=== PATIENT | female | born 1985 | race Caucasian/White ===

== ENCOUNTER 2018-02-28 22:25 | Inpatient (IN) | payer BC, OTHER ==
[~2018-02-28] VITALS: Ht 172.7 cm; Wt 137.9 kg
[~2018-02-28 22:25] MED LIST: ATENOLOL25 MG PO; HYDROCHLOROTHIA25 MG PO; HYDROCODON-ACE1 EAC8 PO; NAPROXEN500 MG PO; NORCO 5-325 TA1 EACH PO; PERCOCET 5-3251 EACH PO; PHENTERMINE H37.5 M1 PO; SERTRALINE HCL100 MG PO; XANAX0.25 MG PO; ZOLOFT50 MG PO
[2018-02-28] MEDS ORDERED: ZYPREXA5 MG PO (22:42)
[2018-02-28] MEDS ORDERED: DEXAMETHASONE4 MG PO (22:42)
[2018-02-28] MEDS ORDERED: PROCHLORPERAZIN10 MG PO (22:43)
[2018-02-28] MEDS ORDERED: ATIVAN0.5 MG PO (22:44)
[2018-02-28] MEDS ORDERED: ZOFRAN ODT4 MG PO (22:45)
[2018-02-28] MEDS ORDERED: CLARITIN10 MG PO (22:46)
[2018-03-01] MEDS ORDERED: RANITIDINE HCL150 MG PO (00:55)
[2018-03-01] MEDS ORDERED: CITALOPRAM HBR40 MG PO (00:55)
[2018-03-01] MEDS ORDERED: OXYCODONE HCL5 MG PO (00:56)
[2018-03-01] MEDS ORDERED: LYRICA150 MG PO (00:57)
[2018-03-01] MEDS ORDERED: LYRICA75 MG PO (00:57)
[2018-03-01] MEDS ORDERED: MAGIC MOUTHWASH PO (02:12)
--- NOTE | 2018-03-01 02:13 | NUR ---
PT FAMILY IN THE ROOM WITH PT AT THIS TIME, WILL BE TAKING PT BELONGINGS OTHER THAN PHONE, CLOTHES AND BACKPACK. PT HAVING INTERMITTENT HOT/COLD FLASHES. HAS FAN IN ROOM AND COOL RAG. PT REQUESTED FOOD, GIVEN [employer] BOX. AMBULATED WITH WALKER TO BATHROOM WITH STANDBY ASSIST
--- NOTE | 2018-03-01 07:40 | NUR ---
DR. CHARLES AT BEDSIDE TO ASSESS PT AND UPDATE PLAN OF CARE.
--- NOTE | 2018-03-01 08:00 | NUR ---
PT SBA WITH FWW TO RESTROOM, TOELRATED WELL. PT ASSITED BACK TO CHAIR, FAMILY IN ROOM. PT A&O X 4. SINUS TACHYCARDIA NOTED, HR 119, 164/79, AND MAP 97. LUNGS CLEAR THROUGHOUT ALL BASES, 95% ON RA. JEOVANNY NAUSEA A THIS TIME, MED REC REVIEWED WITH DR. CHARLES REGARDING NAUSEA MEDICAIONS, MEDS UPDATED AT THIS TIME. PT IS ON REGULAR DIET. URINE OUTPUT ADEQUET AND YELLOW IN COLOR. LEFT BKA WRAPPED WITH NUBIA WRAP, C/D/I. D5NS WITH 20 MEQ OF POASSIUM RUNNING @125 ML/HR AND CEFEPIME RUNNING @25 ML/HR INTO PORT, WNL. DENIES PAIN AT THIS TIME. AFEBRILE WITH LAST TEMP 98.6 F. WILL CONTINUE TO MONITOR TEMP FOR CHANGES.
--- NOTE | 2018-03-01 09:00 | NUR ---
EDUCATION PROVIDED TO PT AND FAMILY REGARDING NEUTROPENIC PRECAUTIONS. ADVISED FAMILY MEMBERS TO WASH HANDS, WEAR MASKS, AND LIMIT VISITORS. PT AND FAMILY VERBALIZED AN UNDERSTANDING AND WERE AGREEABLE.
[2018-03-01] MEDS ORDERED: ONDANSETRON HCL8 MG PO (09:17)
--- NOTE | 2018-03-01 10:32 | NUR ---
Medications reconciled by pharmacist using medication vials, [facility] records and patient interview. Patient received Neulasta injection last Saturday and will need to take (2) loratadine 10mg tablets daily
--- NOTE | 2018-03-01 11:00 | NUR ---
PT'S FAMILY STATES THE PT IS FEELING COLD. TEMP REASSESSED AND 99.1 F AT THIS TIME, WILL CONTINUE TO MONITOR.
--- NOTE | 2018-03-01 13:27 | NUR ---
PT RESTING IN BED COMFORTABLY, NO ACUTE DISTRESS NOTED. TEMP REASSESSED AND CURRENTLY 99.8 F, WILL CONTINUE TO MONITOR. LR INFUSING @125 ML/HR AND VANCOMYCIN INFUSING @186 ML/HR. PT'S FAMILY MEMBER SHARED CONCERNS REGARDING SEPSIS AND POSSIBLE TRANSFER. PROVIDED ADDITIONAL EDUCATION REGADING SEPSIS S/SX. ADVISED THAT TANSFER IS NOT INDICATED AT THIS TIME AND THAT PT WILL BE CONTINUED TO BE MONITORED CLOSELY, NO OTHER QUESTIONS OR CONCERNS AT THIS TIME.
--- NOTE | 2018-03-01 14:00 | NUR ---
TEMP REASSESSED AND NOTED TO BE 100.5 F AT THIS TIME, PROVIDER AWARE. WILL CONTINUE TO MONITOR.
--- NOTE | 2018-03-01 19:30 | NUR ---
SHIFT REPORT RECEIVED FROM LISA MILLER. PT CURRENTLY SITTING UP IN CHAIR, AUNT AT BEDSIDE. IVF INFUSING WNL.
--- NOTE | 2018-03-01 20:25 | NUR ---
ASSESSMENT COMPLETED, PT IS ALERT/ORIENTED, REPORTS 4/10 SINUS HEADACHE PAIN, 30MG PO PSEUDOEPHEDRINE GIVEN. LUNGS CLEAR, RA. HR REGULAR, SINUS TACHY AT 100-105. BOWEL TONES ACTIVE, PT REPORTS NAUSEA, PRN COMPAZINE ADMINISTERED. LEFT BKA HAS DRESSING THAT IS C/D/I. PORT PATENT, IVF INFUSING WNL, DRESSING C/D/I. PT UP TO BATHROOM WITH SBA AND FWW, VOIDED AND THEN RETURNED TO BED. PT STATES SHE IS TIRED, HAS CALL LIGHT WITHIN REACH. WILL CONTINUE TO MONITOR.
--- NOTE | 2018-03-01 22:05 | NUR ---
PT SLEEPING SOUNDLY, NO APPARENT DISTRESS. RR:23 SPO2: 95% ON RA, RESPIRATIONS EVEN AND UNLABORED. PER PT'S AUNT'S REQUEST, TEMPORAL TEMPERATURE: 99.1. CEFEPIME INFUSION STARTED. WILL ALLOW FOR REST AND CONTINUE TO MONITOR.
--- NOTE | 2018-03-02 00:12 | NUR ---
PT SLEEPING, NO APPARENT DISTRESS. RESPIRATIONS EVEN AND UNLABORED, RR:18, SPO2: 95% ON RA. HR IN THE 90'S, SINUS RHYTHM. TEMP: 99.0 TEMPORALLY. IVF INFUSING WNL. WILL ALLOW FOR REST AND CONTINUE TO MONITOR.
--- NOTE | 2018-03-02 02:10 | NUR ---
PT SLEEPING, NO APPARENT DISTRESS. RESPIRATIONS EVEN AND UNLABORED, RR:20, 94% ON RA. HR:94, SINUS RHYTHM. IVF INFUSING WNL, CEFEPIME INFUSION COMPLETED. WILL ALLOW FOR REST AND CONTINUE TO MONITOR.
--- NOTE | 2018-03-02 03:29 | NUR ---
PT CALLED, UP TO BATHROOM WITH SBA AND FWW, VOIDED 800ML AND THEN RETURNED TO BED. TEMP: 99.0 ORALLY. PT PROVIDED WITH ICE WATER, APPLE JUICE, APPLE SAUCE, AND JELLO PER REQUEST. DENIES PAIN AT THIS TIME. CALL LIGHT WITHIN REACH, NO FURTHER REQUESTS AT THIS TIME.
--- NOTE | 2018-03-02 04:00 | NUR ---
ASSESSMENT COMPLETED, NO CHANGES FROM PREVIOUS ASSESSMENTS. PT REQUESTS TO SIT UP IN CHAIR, TRANSFERRED WITH SBA AND FWW. BED LINENS CHANGED. PT REMAINS AFEBRILE. DENIES PAIN AND NAUSEA. CALL LIGHT WITHIN REACH, WILL CONTINUE TO MONITOR.
--- NOTE | 2018-03-02 06:00 | NUR ---
PT REMAINS SITTING UP IN CHAIR, CONTINUES TO DENY PAIN. CEFEPIME INFUSION STARTED. PT PROVIDED WITH POPSICLE PER REQUEST. NO FURTHER NEEDS AT THIS TIME, CALL LIGHT IS WITHIN REACH.
--- NOTE | 2018-03-02 07:50 | NUR ---
PATIENT AWAKE AND REQUESTING TO USE BATHROOM. 1 PERSON ASSIST TO BATHROOM WITH WALKER AND IV POLE. PT AMBULATING WELL WITH WALKER. PT STATES SHE IS STILL A 5/10 WITH PAIN AT THIS TIME. FAMILY IN ROOM AND SUPPORTIVE. VITALS AND ASSESSMENT COMPLETE. AM MEDS TO BE GIVEN. CONTINUE TO MONITOR.
--- NOTE | 2018-03-02 09:44 | NUR ---
DR. HAINES IN TO SEE PATIENT AND ANSWER QUESTIONS. PT CURIOUS TO HOW LONG SHE WILL BE IN THE HOSPITAL. LABS AND PLAN OF CARE REVIEWED WITH PATIENT AND MD. PATIENT'S LEFT STUMP ASSESSED WITH MD. THERE IS STITCHES STILL INTACT WITH SOME ESCHAR NOTED TO THE END OF THE INCISION SITE. NO DRAINAGE NOTED AT ALL. HELPED PATIENT RE-WRAP HER LEG WITH NUBIA BANDAGE. NO ODOR NOTED EITHER. PT CONTINUES TO HAVE HER AUNT IN ROOM WITH HER. PT REQUESTING BENADRYL AT THIS TIME FOR ITCHING THAT SHE IS RELATING TO HER OXYCODONE. PT RECEIVING IV POTASSIUM REPLACEMENT. CONTINUE TO MONITOR.
--- NOTE | 2018-03-02 10:01 | NUR ---
PATIENT GIVEN BENADRYL AND MIRALAX AT THIS TIME. CONTINUE TO MONITOR.
--- NOTE | 2018-03-02 13:26 | NUR ---
Vancomycin trough level subtherapeutic at 9.5, Keep dose at 1500mg but increase frequency of dosing from q8h to q6h
--- NOTE | 2018-03-02 13:47 | NUR ---
PATIENT RESTING AT THIS TIME AFTER RECEIVING PAIN MEDICATION. PT STILL HAVING HER NAGGING HEADACHE THAT HAS NOT SUBSIDED. IV VANCO INFUSING AT THIS TIME, WELL HER IVF. IV CEFEPIME DUE SOON. PT'S AUNT IN ROOM RESTING WELL.
--- NOTE | 2018-03-02 15:30 | NUR ---
PATIENT STILL HAVING HER HEADACHE BUT IS NOW TRYING TO DRINK SOME CAFFEINE WHICH SHE STATES MAY BE STARTING TO HELP. PT'S OTHER AUNT ARRIVES AND ALSO BRINGS PATIENT A MILKSHAKE. PT SITTING IN CHAIR CROCHETING A BLANKET. HR UPPER 90s TO LOW 100s.
--- NOTE | 2018-03-02 16:58 | NUR ---
PATIENT UP TO BATHROOM TO VOID AND ALSO USE WARM WIPES TO CLEAN SELF UP. PT GIVEN WARM SOAPY WASH CLOTHS FOR CLEANING, WELL WARM WIPES. PT STILL BECOMES TACHYCARDIC WITH ACTIVITY, BUT ONLY IN THE 120s OPPOSED TO THE 140-150s YESTERDAY. PT'S AUNT IN ROOM AND HELPFUL WITH PATIENT ALSO AT THIS TIME.
--- NOTE | 2018-03-02 17:38 | NUR ---
PATIENT CONCERNED ABOUT REDNESS TO HER PORT SITE AND WANTING HER PORT A CATH DRESSING CHANGED. DRESSING CHANGED AND NO REDNESS NOTED TO ACTUAL INSERTION SITE OF PORT A CATH. SOME REDNESS NOTED TO THE RIGHT OF THE ACTUAL INSETION SITE AT THE CORNER OF THE ORIGINAL INCISION SITE WHICH IS WELL HEALED. IV VANCO DONE AT THIS TIME. DINNER ORDERED FOR PATIENT.
--- NOTE | 2018-03-02 18:30 | NUR ---
PATIENT HAS HAD A GOOD DAY OVERALL AND HAS AFEBRILE THROUGHOUT THE DAY. VITALS ARE STABLE. IV VANCO AND IV CEFEPIME CONTINUE ANTIBIOTICS, WELL PO DOXYCYCLINE. PORT DRESSING CHANGED THIS AFTERNOON. PT VOIDS GOOD AMOUNTS AND AMBULATES INTO BATHROOM WITH WALKER. PT HAS FAMILY ASSISTANCE AROUND THE CLOCK IN ROOM. NEUTROPENIC PRECAUTIONS REMAIN - WBC 0.7 THIS AM. AM LABS TO BE DRAWN FROM PORT. IVF CONTINUE AT 125 ML/HR. HR 90-100s. VANCO TROUGH 9.5 TODAY - NEXT TROUGH TO BE DRAWN 03/04.
--- NOTE | 2018-03-02 20:00 | NUR ---
SHIFT REPORT RECEIVED FROM LISA MUSE. PT IS CURRENTLY AWAKE, SITTING UP IN CHAIR, HER AUNT AT BEDSIDE. PT UP TO BATHROOM WITH SBA AND FWW TO VOID, THEN RETURNED TO CHAIR. WITH ACTIVITY, HR INCREASED TO 130 AND RETURNED TO 98-100 ONCE SHE WAS SITTING IN THE CHAIR. PT REPORTS 4-5/10 CHEST PAIN THAT SHE DESCRIBES DULL. AFTER SITTING IN THE CHAIR 10-15 MINUTES, PT REPORTS THAT THE PAIN HAS NOT SUBSIDED, DR. HAINES NOTIFIED AND ORDER FOR 12-LEAD EKG OBTAINED. R.T. IN ROOM AT THIS TIME TO OBTAIN EKG. VITAL SIGNS STABLE.
--- NOTE | 2018-03-02 20:20 | NUR ---
ASSESSMENT COMPLETED. PT IS ANXIOUS, REPORTS PHANTOM LIMB PAIN, SINUS HEADACHE PAIN, AND DULL CHEST PAIN. PRN COMPAZINE AND PSUEDOEPHEDRINE GIVEN FOR HEADACHE. PRELIMINARY EKG REPORT SHOWED SINUS RHYTHM. LUNGS CLEAR, RA. HR REGULAR. BOWEL TONES ACTIVE, DENIES NAUSEA AT THIS TIME. DRESSING TO LEFT BKA IS C/D/I. PORT SITE APPEARS WNL, IVF INFUSING WNL, DRESSING INTACT. PT REQUESTS USE OF SCD'S ON UNAFFECTED RIGHT LEG, STATING THAT WHEN SHE MASSAGES HER RIGHT LEG, IT HELPS RELIEVE THE PHANTOM PAIN IN THE LEFT LEG. DISCUSSED WITH DR. HAINES AND OBTAINED AN ORDER FOR USE OF SCD ON RIGHT LEG ONLY. PT'S MOTHER AND AUNT AT BEDSIDE. NO REQUESTS AT THIS TIME, CALL LIGHT IS WITHIN REACH.
--- NOTE | 2018-03-02 20:55 | NUR ---
PT UP FROM CHAIR TO BATHROOM, VOIDED AND THEN RETURNED TO BED. SCD PLACED ON RLE. PT PROVIDED WITH WARM BLANKETS. TEMP CURRENTLY 99.5 TEMPORALLY. CALL LIGHT IS WITHIN REACH, WILL CONTINUE TO CLOSELY MONITOR.
--- NOTE | 2018-03-02 22:00 | NUR ---
PT UP TO BATHROOM WITH SBA AND FWW, VOIDED AND THEN RETURNED TO BED. PT STILL REPORTS SINUS HEADACHE AND CHEST DISCOMFORT. 10 MG PO OXYCODONE ADMINISTERED WITH APPLESAUCE AND JELLO. SCD ON RIGHT LEG. CEFEPIME INFUSION STARTED. TEMP: 100.2, ORALLY, WILL RECHECK AGAIN IN AN HOUR. CALL LIGHT WITHIN REACH, WILL CONTINUE TO CLOSELY MONITOR.
--- NOTE | 2018-03-02 22:47 | NUR ---
RECHECKED TEMP: 99.8 ORALLY. PT PROVIDED WITH POPSICLE PER REQUEST.
--- NOTE | 2018-03-02 23:37 | NUR ---
PT UP TO BATHROOM WITH SBA AND FWW, VOIDED AND THEN RETURNED TO BED. HR INCREASED TO 130 WITH ACTIVITY, RETURNED TO 100 ONCE SHE RETURNED TO BED. PT CONTINUES TO HAVE HEADACHE PAIN AND DULL CHEST DISCOMFORT. PT ALSO REPORTS ITCHING, PRN BENADRYL ADMINISTERED AND LOTION APPLIED TO FACE AND BACK. PT PROVIDED WITH PUDDING PER REQUEST. WILL CONTINUE TO MONITOR, PT HAS CALL LIGHT WITHIN REACH.
--- NOTE | 2018-03-03 00:54 | NUR ---
PT CURRENTLY SLEEPING, NO APPARENT DISTRESS. RESPIRATIONS EVEN AND UNLABORED, RR: 23, SPO2: 94% ON RA. HR: 104. WILL ALLOW FOR REST AND CONTINUE TO MONITOR.
--- NOTE | 2018-03-03 03:36 | NUR ---
PT CONTINUES TO SLEEP, NO APPARENT DISTRESS. RESPIRATIONS ARE EVEN AND UNLABORED, RR:24, SPO2:92% ON RA. HR:98. WILL ALLOW FOR REST AND CONTINUE TO MONITOR.
--- NOTE | 2018-03-03 04:12 | NUR ---
PT CALLED AND NEEDED TO USE BATHROOM, UP WITH SBA AND FWW, VOIDED AND THEN RETURNED TO BED. ASSESSMENT COMPLETED. PT BELIEVES THAT THE PAIN IN HER CHEST AND LOWER BACK IS BONE PAIN (A SIDE EFFECT OF ONE OF HER MEDICATIONS). SHE ALSO CONTINUES TO HAVE SINUS HEADACHE PAIN. CURRENTLY RATES HER PAIN 5/10. 10MG OXYCODONE AND 30MG PSEUDOEPHEDRINE ADMINISTERED. NO OTHER CHANGES FROM PREVIOUS ASSESSMENT. PT PROVIDED WITH APPLESAUCE AND JELLO PER REQUEST, NO FURTHER REQUESTS AT THIS TIME.
--- NOTE | 2018-03-03 05:20 | NUR ---
PT GIVEN PRN BENADRYL PER REQUEST FOR ITCHING.
--- NOTE | 2018-03-03 05:50 | EKG ---
[facility] [address] [place], [place] [address] Signed Normal sinus rhythm Cannot rule out Anterior infarct , age undetermined Abnormal ECG No previous ECGs available Confirmed by BUBBA HAINES MD ([id number]) on 03/03/2018 5:50:36 AM Electronically Signed By: BUBBA HAINES MD 03/03/18 0550 PATIENT NAME: ANNIKA BOWENS Electrocardiogram DATE OF : [birth year] PHYSICIAN: BUBBA HAINES MD REPORT #: [id number] REPORT IS CONFIDENTIAL AND NOT TO BE RELEASED WITHOUT AUTHORIZATION
--- NOTE | 2018-03-03 06:21 | NUR ---
PT SITTING UP IN BED, STATES THAT HER PAIN IS SOMEWHAT IMPROVED SINCE HER LAST DOSE OF OXYCODONE, NOW RATES HER OVERALL PAIN 3/10. SHE DENIES NEEDS AT THIS TIME, HAS CALL LIGHT WITHIN REACH. BREAKFAST ORDER CALLED TO KITCHEN.
--- NOTE | 2018-03-03 06:57 | NUR ---
UP TO BATHROOM WITH SBA AND FWW, VOIDED 400ML AND THEN WALKED TO CHAIR. PT GIVEN LYRICA AT THIS TIME FOR PHANTOM LEG PAIN. BED LINENS CHANGED. TEMP: 99.3 ORALLY. CALL LIGHT WITHIN REACH.
--- NOTE | 2018-03-03 07:56 | NUR ---
MORNING HAND OFF REPORT TAKEN. THIS RN AND LISA MUSE AT BEDSIDE FOR MORNING ASSESSMENT AND MEDICATIONS. MD AT BEDSIDE. BANDAGE REMOVED BY MD FROM LEFT BKA. WOUND IS WET FROM NS APPLICATION BY MD. MINOR REDNESS NOTED ON PROXIMAL SIDE OF WOUND, ESCHAR NOTED IN WOUND BASE. WOUND ALLOWED TO DRY AND THEN REDRESSED WITH GAUZE AND NUBIA WRAP. ASSESSMENT DONE. MEDICATIONS GIVEN. PORT ASSESSED, WNL, BRISK BLOOD RETURN NOTED. PT TOLERATING BREAKFAST WELL THIS AM. DENIES NAUSEA. CONTINUES TO REPORT PAIN IN CHEST, BACK AND PHANTOM LIMB. SEE MAR FOR MEDICATION GIVEN. PT UP TO CHAIR. FAMILY AT BEDSIDE. CALL LIGHT WITHIN REACH.
--- NOTE | 2018-03-03 08:19 | NUR ---
PHARMACIST STATES NEXT VANCO TROUGH IS NOT DUE UNTIL BEFORE THE 1400 VANCO DOSE. VANCO GIVEN ORDERED. INFUSING VIA IV PUMP. PT KNITTING WITH AUNT AT CHAIRSIDE. NO ADDITIONAL REQUESTS OR COMPLAINTS AT THIS TIME.
--- NOTE | 2018-03-03 09:32 | NUR ---
PT CALL LIGHT ON. PUMP ALARMING, IV FLUID BAG EMPTY. NEW LR BAG HUNG, SAME RATE. PT TALKING TO FATHER ON PHONE. NO ADDITIONAL REQUESTS OR COMPLAINTS AT THIS TIME.
--- NOTE | 2018-03-03 10:00 | NUR ---
Pt transferred from ICU at this time. in chair, Pt continues on NEUTROPENIC PRECAUTIONS, left BKIA dressing intact, pt uses one person assist and fww. left double port accessed, patent
--- NOTE | 2018-03-03 10:38 | NUR ---
pt up to brp, vopided, back to bed, tolerated well, family in room
--- NOTE | 2018-03-03 10:57 | NUR ---
pt c/o feeling hot, skin warm to touch, flushed face, temp oral 101.2, tylenol 500mg po given, dr monzon notified, n.o for cxr to be done [facility], no other c/o, continues on neutropenic precaution
--- NOTE | 2018-03-03 11:09 | NUR ---
DI here to do CXR
--- NOTE | 2018-03-03 11:35 | NUR ---
PT IN ROOM ASSESSING PT. BLOOD DRAWN FROM PORT PER MDS ORDERS FOR TEMP 101.2
--- NOTE | 2018-03-03 12:04 | NUR ---
PATIENT STATES SHE DOES NOT WANT HELP WITH A BED BATH, THAT HER AUNT IS GOING TO WASH HER HAIR FOR HER. PATIENT COMPLAINS ABOUT NOT BEING ABLE TO TAKE A SHOWER AND VOICES HER DISATISFACTION WITH STAFF. PATIENT STATES SHE HAS NO OTHER NEEDS AT THIS TIME. PATIENT SITTING UP IN BED, EATING LUNCH. FAMILY IN ROOM. CALL LIGHT IN REACH. PATIENT REFUSES ALL OTHER OFFERS FOR CARE AT THIS TIME.
--- NOTE | 2018-03-03 12:04 | NUR ---
UP IN CHAIR, EATING, NO FUERTHER C/O PAIN
--- NOTE | 2018-03-03 14:17 | NUR ---
PT IS ASLEEP, STAFF REQUESTED I LET HER SLEEP. SHE HAS HAD A DIFFICULT DAY. I WILL CONTINUE TO FOLLOW NEEDED
--- NOTE | 2018-03-03 15:46 | NUR ---
Medicated with Oxycodone 10mg po c/o h/a. Pt up in chair visiting with family
--- NOTE | 2018-03-03 16:19 | NUR ---
HAND OFF REPORT RECIEVED FROM AMPARO RN. THIS RN RESUMING CARE FOR PT. THIS RN TO ROOM. ASSESSMENT DONE. PT REQUESTS SHOWER. PORT SALINE LOCKED FOR SHOWER, ALCOHOL CAP APPLIED. THIS RN COVERS PORT WITH OPSITE AND STUMP WITH PLASTIC BAG AND FOAM TAPE FOR SHOWER. PT ASSISTED UP TO SHOWER, PT SHOWERS ON BY HERSELF, THIS RN IN ROOM. PT ASSITED BACK TO BED AFTER SHOWER, IV FLUIDS AND ABX RESUMED. DRESSING CDI, PORT WNL. AUNT AT BEDSIDE. CALL LIGHT WITHIN REACH.
--- NOTE | 2018-03-03 16:20 | NUR ---
RN IN ROOM WITH PATIENT AT THIS TIME.
--- NOTE | 2018-03-03 17:03 | NUR ---
MEDICATIONS DUE. THIS RN TO BEDSIDE. MEDICATIONS GIVEN ORDERED. PT UP AT EDGE OF BED, AUNT FIXING HAIR. DRESSING CHANGE DONE TO PORT DRESSING IS WET AFTER SHOWER AND BOTHERING PT. DRESSING CHANGED DONE PER PROTOCOL USING STERILE TECHNIQUE. BRISK BLOOD RETURN NOTED. APPLE SAUCE AND JELLOW PROVIDED PER PT REQUEST. CALL LIGHT WITHIN REACH. BED RAILS UP.
--- NOTE | 2018-03-03 17:56 | NUR ---
PT CALL LIGHT ON. PT REQUESTS BENEDRYL FOR "ITCHING." GIVEN REQUESTED. DEBT RECOVERY OFFICER IN ROOM. REPORTS TEMPERATURE OF 100.7. ORDER FOR TYLENOL STATES TO GIVEN ONLY IF TEMP IS 101. MD CALLED. MD STATES TO GIVEN TYLENOL NOW. GIVEN ORDERED. PT ASSISTED WITH ORDERING DINNER. STATE SHE HAS NO ADDITIONAL REQUESTS OR COMPLAINTS AT THIS TIME. BED RAILS UP. CALL LIGHT WITHIN REACH.
--- NOTE | 2018-03-03 18:08 | NUR ---
PT CALL LIGHT ON. PT REQUESTS PAIN MEDICAITON FOR HEADACHE. SEE MAR FOR MEDICATION GIVEN. BED RAILS UP. CALL LIGHT WITHIN REACH. FAMILY AT BEDSIDE.
--- NOTE | 2018-03-03 18:13 | NUR ---
PT TRANFERED FROM CCU TODAY, HERE FOR NEUTROPENIC FEVER. FEBRIAL TODAY, TYLENOL GIVEN, BLOOD CULTURES, CHEST X-RAY DONE. IV ABX. SHOWER TODAY. PORT A CATH DRESSING CHANGE TODAY. PRN OXY FOR PHANTOM PAIN, BACK PAIN AND HEADACHES. DRESSING CHANGE TO STUMP TODAY AFTER MD ASSESSMENT. REGULAR DIET. ADDI, FWW. USING CALL LIGHT APPROPRIATLY.
--- NOTE | 2018-03-03 18:32 | NUR ---
PT CALL LIGHT ON. PUMP ALARMING, INFUSION AND FLUSH COMPLETE. LINE STOPPED AND RED CAPPED. CEFAPIME CONTINUES TO INFUSE. PT ASSISTED UP TO RESTROOM. VOIDS WITHOUT ISSUE. PT TRANSFERES SELF TO CHAIR, FWW USED. DINNER ARRANGED FOR PT. PT REQUESTS BLANKETS. PT REQUESTS TO HAVE ONE ON ONE WITH AND RN. PT INFORMED THAT A ONE ON ONE NURSE IS NOT POLICY FOR THIS UNIT BUT THAT WE ARE HAPPY TO ASSIST HER MUCH POSSIBLE AND WHENEVER SHE CALLS. PT STATES THIS WILL "BE FINE, BUT NOT GOOD I HAD HOPED." PT STATES SHE HAS NO ADDITIONAL REQUESTS OR COMPLAINTS AT THIS TIME. FAMILY AT CHAIRSIDE. CALL LIGHT WITHIN REACH.
--- NOTE | 2018-03-03 18:41 | NUR ---
RN NOTIFIED OF ELEVATED TEMP.
--- NOTE | 2018-03-03 19:23 | NUR ---
IN ROOM FOR REPORT, PT IS AWAKE IN BED AND HAS A FAMILY MEMBER IN THE ROOM. CALL LIGHT IS WITHIN REACH.
--- NOTE | 2018-03-03 20:35 | NUR ---
IN ROOM TO ASSESS PT AND ADMINISTER MEDICATIONS. SHE STATES SHE HAS A SINUS HEADACHE. PT REQUESTED PUDDING AND FRESH ICE WATER. SHE DENIES FURTHER NEEDS.
--- NOTE | 2018-03-03 22:55 | NUR ---
V/S AND I/O DONE AND CHARTED.
--- NOTE | 2018-03-03 23:00 | NUR ---
PT WAS ITCHING HER CHEST AROUND HER PORT AND UNCOMFORTABLE. SHE HAD PEELED THE EDGE OF THE STERILE DRESSING UP AND WAS CONCERNED ABOUT IT. PORT FLUSHES AND HAS BLOOD RETURN BUT IV DOES ALARM FREQUENTLY AND NEEDS TO BE FLUSHED OFTEN. SPOKE WITH NURSING APPEALS ASSISTANT ABOUT IT AND SHE ASSESSED THE SITE. WITH MASKS ON PT AND RN SHE REMOVED THE DRESSING WITH STERILE GLOVES AND APPLIED STERILE GAUZE WITH PAPER TAPE AND REINFORCED THE IV LINE WITH PAPER TAPE WELL. NEW BIOPATCH WAS PLACED AROUND PORT WELL. PT TOLERATED WELL. PT STATES HER MOTHER HAS AN ALLERGY TO ADHESIVES.
--- NOTE | 2018-03-03 23:15 | NUR ---
ENTERED PT'S ROOM TO ADMINISTER IV ABX. FRESH WATER AT BEDSIDE. PT DENIES FURTHER NEEDS AT THIS TIME.
--- NOTE | 2018-03-03 23:47 | NUR ---
DR HAINES IS AWARE OF PT'S NEW DRESSING TO PORT AND REACTION TO ADHESIVE.
--- NOTE | 2018-03-04 00:45 | NUR ---
PT IS RESTING WITH EYES CLOSED, RESPIRATIONS ARE EVEN AND NONLABORED. CALL LIGHT IS WITHIN REACH AND COUSIN IS IN ROOM.
--- NOTE | 2018-03-04 02:10 | NUR ---
PT IS RESTING WITH EYES CLOSED, RESPIRATIONS ARE EVEN AND NONLABORED. CALL LIGHT IS WITHIN REACH.
--- NOTE | 2018-03-04 03:31 | NUR ---
PT HAS HEADACHE ADMINISTERED PRN MEDS. REFILLED WATER AND BROUGHT APPLESAUCE. PT DENIES FURTHER NEEDS.
--- NOTE | 2018-03-04 05:12 | NUR ---
HELPED PT TO THE RESTROOM AND BACK TO BED. CALL LIGHT IS WITHIN REACH.
--- NOTE | 2018-03-04 05:35 | NUR ---
TOOK PT'S VS AND I&O SHE DENIES FURTHER NEEDS AT THIS TIME.
--- NOTE | 2018-03-04 06:28 | NUR ---
ADMINISTERED MORINING MEDICATIONS, PT DENIES NEEDS AT THIS TIME.
--- NOTE | 2018-03-04 08:45 | NUR ---
PATIENT WITH STAFF. WILL RETURN LATER.
--- NOTE | 2018-03-04 09:12 | NUR ---
PT REQUESTS TO VISIT WITH HER NURSE, MORNING ASSESSMENT AND MEDICATIONS DUE. THIS RN TO BEDSIDE. PT CONCERNED ABOUT HAVING PAPER TAPE OVER HER PORT. PT WOULD LIKE TO TRY A WINDOW DRESSING AGAIN. DISCUSSED POSSIBLE ALLERGIC REACTION TO ADHESIVES WITH PT. 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 PT STATES SHE THINKS THIS MIGHT BE THE CASE THE WINDOW DRESSINGS "DIDN'T BOTHER ME BEFORE YESTERDAY." PAPER TAPE REMOVED. AREA CLEANED WITH ALCOHOL. REDNESS NOTED TO BE IMPROVED. STERILE DRESSING CHANGE DONE PER PROTOCOL, WINDOW DRESSING, GAUZE AND NEW BIO PATCH IN PLACE. PT STATES IT "FEELS BETTER TO ME NOW." ASSESSMENT DONE. MORNING MEDICATIONS GIVEN. PT CONTINUES TO REPORT HEADACHE AT 5/10 PAIN. AUNT AT CHAIR SIDE. CALL LIGHT WITHIN REACH.
--- NOTE | 2018-03-04 10:56 | NUR ---
THIS RN TO ROOM TO CHECK ON PT. PT RESTING WITH EYES CLOSED, RR = 16 BPM. BED RAILSUP. CALL LIGHT WITHIN REACH.
--- NOTE | 2018-03-04 11:15 | NUR ---
THIS RN TO ROOM TO CHECK ON PORT DRESSING. NO REDNESS NOTED UNDER DRESSING ON AREAS THAT WERE NOT CLEANED WITH CHLOROHEXADINE YESTERDAY. REDNESS IMPROVING ON AREAS THAT WERE CLEANED WITH CHLOROHEXADINE. THIS RN SUSPECTS CHLOROHXADINE ALLERGY. PT DENIES ITCHING AND IRRITATION FROM DRESSING AT THIS TIME.
--- NOTE | 2018-03-04 12:00 | NUR ---
PATIENT CALLED FOR ASSISTANCE TO FANY ROCHA. PATIENT BACK TO BED, LISA HENDERSON IN ROOM. PATIENT ARM BAND WAS GETTING TOO TIGHT, WAS WAS REPLACED.CALL LIGHT IN REACH
--- NOTE | 2018-03-04 12:21 | NUR ---
FOCUSED ASSESSEMENT AND MEDICATIONS DUE. THIS RN TO BEDSIDE. PT UP IN BED WRITING IN JOURNAL. PT CONTINUES TO REPORT HEADACHE AT 12/10, PT REQUESTS TO WAIT ON MORE MEDICATION. COOL CLOTH OFFERED AND ACCEPTED. FOCUSED ASSESSMENT DONE, MEDICATIONS GIVEN ORDERED. PT EDUCATION DONE R/T FALLS AND IV LASIX. PT VERBALIZES UNDERSTANDING THAT SHE WILL CALL THE NURSE BEFORE GETTING UP. WATER PROVIDED. PT ORDERING LUNCH. BED RAILS UP. CALL LIGHT WITHIN REACH.
--- NOTE | 2018-03-04 12:47 | NUR ---
PT RESTING IN BED, FAMILY ASLEEP ON COUCH. PT TALKED TO ME ABOUT HER HEADACHE, UP AND DOWN FEVER. SHE ALSO TALKED TO ME ABOUT GROWING UP IN [place], WHAT SHE ENJOYED AND LOOKED FORWARD TO. HAS BEEN A DIFFICULT FEW DAYS FOR PT, AND JUST WANT TO LET HER KNOW I AM HERE. EXTENDED A BLESSING, WILL FOLLOW NEEDED
--- NOTE | 2018-03-04 13:30 | NUR ---
PATIENT WORKING WITH OT. WILL RETURN LATER.
--- NOTE | 2018-03-04 13:51 | NUR ---
PT CALL LIGHT ON. PT REQUESTS PSEUDAPHEND FOR CONGESTION AND SINUS HEADACHE. PT FINSISHED WITH LUNCH. MEDICATION GIVEN. BED RAILS UP. CALL LIGHT WITHIN REACH.
--- NOTE | 2018-03-04 14:27 | NUR ---
MEDICATIONS ARRIVED FROM [facility]. GIVEN ORDERED. PT UP TO CHAIR. REPLACER WORKING WITH PT. PT DENIES REQUESTS OR COMPLAINTS AT THIS TIME.
--- NOTE | 2018-03-04 14:37 | NUR ---
PATIENT SITTING UP IN CHAIR, COUSIN ASLEEP ON COUCH. RN BEATRIZ IN ROOM. VITALS AND I/OS CHARTED. LINENS CHANGED. CALL LIGHT IN REACH
--- NOTE | 2018-03-04 16:00 | NUR ---
PT SLEEPING. ASKED BY PHYSICIAN/ALLERGY/IMMUNOLOGY NOT TO AWAKEN. DISCUSSED PATIENT DISCHARGE NEEDS WITH PHYSICIAN/ALLERGY/IMMUNOLOGY AND CHARGE NURSE. PATIENT IS INDEPENDENT IN ROOM AND HAS FAMILY SUPPORT. ACCORDING TO THEM, PATIENT WILL BE DISCHARGED TO HOME AND NO BARRIERS ARE KNOWN AT THIS TIME.
--- NOTE | 2018-03-04 17:40 | NUR ---
AFTERNOON ASSESSMENT AND MEDICATIONS DUE. THIS RN TO BEDSIDE. PT VISITING WITH FAMILY. PT REPORTS 4/10 HEADACHE PAIN THAT "IS A LITTLE BETTER." PT NOTES SWELLING IN RIGHT LEG "SEEMS BETTER." ASSESSMENT DONE. MEDICATIONS GIVEN. PT ASSISTED WITH ORDERING DINNER. PT TALKING ON PHONE. CALL LIGHT WITHIN REACH. FAMILY AT BEDSIDE.
--- NOTE | 2018-03-04 18:00 | NUR ---
FLUIDS RATE DECREASED TO TKO. INFUSING AT 20ML/HR. PT RESTING IN CHAIR. NO REQUESTS OR COMPLAINTS.
--- NOTE | 2018-03-04 18:04 | NUR ---
PT CALL LIGHT ON. PT REQUESTS PAIN MEDICAITON FOR 5/10 PAIN IN HER STUMP. SEE MAR FOR MEDICATION. PT ASSISTED UP TO RESTROOM. PT BACK TO BED. WORKING WITH NETWORK OPERATIONS LEAD. NO ADDITIONAL REQUESTS AT THIS TIME.
--- NOTE | 2018-03-04 18:40 | NUR ---
SUPERINTENDENT DISTRIBUTION ASKS THIS RN TO COME TO ROOM. THIS RN TO ROOM. PT VISUABLY UPSET, TEARFUL, AND TREMBLING. PT HAS REMOVED DRESSING FROM STUMP AND TAKEN PICUTRES. PT EXPRESSES CONCERN THAT HER STUMP WOUND IS "WORSE THAN YESTERDAY." THIS RN ASSESSES WOUND. TEMPERATURE OF STUMP IS SIMILAR, BY TOUCH, TO RIGHT LEG. NO ADDITIONAL REDNESS NOTED COMPARED TO YESTERDAY. MINIMAL AMOUNT OF YELLOW DRAINAGE NOTED. PT ADVISED NOT TO REMOVE DRESSING ON HER OWN. PT REASSURED THAT WOUND LOOKS SIMILAR TO YESTERDAY. PT ADVISED THAT MD COULD BE CALLED IF SHE WOULD LIKE. PT DECLINES STATING "NO, I DON'T NEED THE DOCTOR TO SEE IT. i JUST WANT IT REWRAPTED." NEW NON ADHERANT GAUZE APPLIED AND WRAPPED WITH NEW NUBIA WRAP. PT STATES SHE FEELS BETTER AND IS JUST "VERY, VERY WORRIED ABOUT INFECTION." PT ASKED IF SHE NEEDS PAIN MEDICATION OR ANXIETY MEDICATION. PT DECLINES. THIS RN SAT WITH PT FOR 20 MINUTES. PT TALKS ABOUT LIFE AND WORK TODAY WITH PHYSICAL THERAPY. PT CONTINUES VISITING WITH FAMILY. PT STATES HER QUESTIONS AND CONCERNS HAVE BEEN ADDRESSED. CALL LIGHT WITHIN REACH.
--- NOTE | 2018-03-04 18:48 | NUR ---
PT HERE FOR NEUTROPENIC FEVER. AFEBRIAL TODAY. IV ABX, TELE 7. PT HAS A PORT RUNNING AT TKO. IV LASIX TODAY FOR INCREASED DEPENDANT EDEMA. OXY PRN FOR PAIN. PSEUDAPHED FOR SINUS HEADACHES. ADDI, FWW. PT USING CALL LIGHT APPROPRIATLY
--- NOTE | 2018-03-04 19:15 | NUR ---
THIS RN TO ROOM FOR HAND OFF REPORT. PT CONTINUES TO DENY ITCHING AT PORT DRESSING SITE. REDNESS DECREASED, NO REDNESS NOTED ON BANDAGED AREAS THAT WERE NOT EXPOSED TO CHLOROHEXADINE RECORDS COORDINATOR. PT CONFIRMS THAT SHE SUSPECTS SHE IS "ALLERGIC TO THE RECORDS COORDINATOR." CHLOROHEXADINE ALLERGY ADDED TO PTS MED RECORD.
--- NOTE | 2018-03-04 20:08 | NUR ---
RECEIVED REPORT FROM DAY SHIFT RN. PATIENT IS RESTING IN RECLINER. PATIENT GIVEN PRN PSEUDOPHED AND SCHEDULED ABX. PATIENT GIVEN ROBE PER REQUEST. PATIENT IS UP IN HALLWAY WITH COUSIN AND SCOOTER AMBULATING IN HALLWAY. NO FURTHER NEEDS NOTED.
--- NOTE | 2018-03-04 22:07 | NUR ---
PATIENT ASSESMENT COMPLETED. PATIENT AMBULATED IN HALLWAY X2 LAPS. PATIENT RATES PAIN AT A 5/10 FOR HER HEADACHE. PATIENT GIVEN ICE PACK FOR THE BACK OF HER NECK. PATIENT DENIES ANY PAIN IN HER LEFT LEG. PATIENTS BANDAGE REWRAPPED PER PATIENT REQUEST. PATIENT IS ON TELE #7, NSR. PATIENT HAS VISITORS IN THE ROOM. NO FURTHER NEEDS NOTED. CALL LIGHT IN REACH. PRINT BINDING WORKER IN ROOM TO TAKE VITALS.
--- NOTE | 2018-03-04 22:32 | NUR ---
PATIENT GIVEN PRN ANXIETY MEDICATION PER REQUEST. PATIENT ASSISTED A SBA W/FWW TO PIVOT TO BED. PATIENT IS NOW IN BED RESTING. NO FURTHER NEEDS NOTED. CALL LIGHT IN REACH.
--- NOTE | 2018-03-04 23:53 | NUR ---
PATIENT REQUESTED THAT HER DRESSING AROUND HER PORT BE CHANGED. PATIENT DENIES ANY FURTHER NEEDS CALL LIGHT IN REACH.
--- NOTE | 2018-03-05 03:07 | NUR ---
PATIENTS 0200 ABX INFUSING PER ORDER. PATIENT BRIEFLY AWOKEN. PATIENT RATES PAIN AT A 3/10 IN HER SINUSES. PATIENT DENIES THE NEED FOR ANY MEDICATION AT THIS TIME. PATIENTS TEMP TAKEN AND RECORDED. PATIENT DENIES ANY FURTHER NEEDS. FAMILY ASLEEP ON THE COUCH. CALL LIGHT IN REACH.
--- NOTE | 2018-03-05 04:24 | NUR ---
PATIENTS LINEN CHANGED. PATIENT UP TO THE RESTROM AND WAS ABLE TO VOID A LARGE AMOUNT. PATIENT IS NOW IN RELCINER RESTING. PATIENT GIVEN PRN SUDAFED PER REQUEST FOR SINUS HEADACHE. PATIENT PROVIDED WITH SNACK. NO FURTHER NEEDS NOTED. CALL LIGHT IN REACH.
--- NOTE | 2018-03-05 04:58 | NUR ---
PATIENT RESTED FOR A GOOD PORTION OF THE SHIFT. PATIENT IS ON A REGULAR DIET AND TOLERATING IT WELL, NO COMPLAINTS OF NAUSEA. PATIENT IS WORING WITH PT AND OT. PATIENT HAS SCD ON RIGHT LOWER EXT WHEN IN BED. PATIENT IS ON TELE #7, NSR, HR IN THE 80-100'S. PATIENT HAS PORT ACCESSED ON [facility] UPPER CHEST THAT IS HEP LOCKED. PATIENT RECEIVED PRN SUDAFED X2 FOR SINUS PRESSURE AND HEADACHE. PATIENT RESCEIVED PRN ANXIETY MEDICATION X1. PATIENT IS A SBA W/FWW AND OR SCOOTER. PATIENT AMBULATED X2 LAPS IN THE HALLWAY. PATIENTS L BKA SURGICAL SITE IS WELL APPROXIMATED, COVERED WITH NON ADHERENT GAUZE & NUBIA WRAP, SUTURES PRESENT, AND NO DRAINAGE NOTED. PATIENT IS AAOX3.
--- NOTE | 2018-03-05 07:00 | NUR ---
THIS RN CALLED TO ROOM BY DOMINIC CHASE RN. DOMINIC STATES SHE IS HAVING DIFFICULTY WITH PORT, UNABLE TO FLUSH. PORT ASSESSED, UNABLE TO FLUSH. PORT DEACESSED PER PROTOCOL. UNABLE TO HEPARIN LOCK. PT ADVISED TO ALLOW SKIN TO REST FOR 20 MINUTES AND THEN APPLY LIDOCANE CREAM FOR REACCESS. PT VERBALIZES UNDERSTANDING. FAMILY AT CHAIRSIDE.
--- NOTE | 2018-03-05 07:02 | NUR ---
PATIENT IS RESTING IN RECLINER. MORNING MEDICAITONS GIVEN PER ORDER. PATIENT DENIES ANY PAIN OR NAUSEA. PATIENTS BLOOD DRAWN AND SENT TO LAB. PORT IS NOT FLUSHING AT THIS TIME. BEATRIZ GONZALEZ IN ROOM TO ASSIST.
--- NOTE | 2018-03-05 08:32 | NUR ---
PATIENT UP IN CHAIR, COUSIN IN ROOM, RN BEATRIZ IN ROOM. PATEINT REFUSED BEDBATH AND SHOWER AT THIS TIME. WOULD LIKE TO SHOWER LATER IF SHE GETS TO DISCHARGE, BUT FOR NOW IS IN PAIN AND WOULD LIKE TO RELAX. CALL LIGHT IN REACH. GARBAGE EMPTIED.
--- NOTE | 2018-03-05 08:39 | NUR ---
THIS RN TO ROOM TO REACCESS PORT, GIVEN MEDICATIONS, AND MORNING ASSESSMENT. PT HAS APPLIED LIDOCANE CREAM 30 MINUTES AGO. PORT ACCESSED PER PROTOCOL ON LEFT SIDE. UNABLE TO FLUSH. REACCESS ATTEMPTED X2. CONTINUES TO BE UNABLE TO FLUSH. RIGHT SIDE ACCESSED PER PROTOCOL, NO DIFFICULTIES, FLUSHES WELL. BRISK BLOOD RETURN NOTED. LABS REDRAWN AND SENT TO LAB. DONE. PT REPORTS IMPROVEMENT IN RLE SWELLING. MD NOTIFIED OF ABNORMAL PLATELET COUNT. MD AWARE OF DIFFICULT LAB DRAW THIS AM. MD NOTIFED OF DIFFICULTY WITH PORT ON LEFT SIDE. CEFEPIME RESTARTED FROM THIS AM. ASSESSMENT DONE. PT REPORTS IMPROVEMENT IN RLE SWELLING. MEDICATIONS GIVEN (SEE MAR). PT VERY ANXIOUS WITH PORT ACCESS, TEARFUL AND TREMBLING. SHER SUGGESTED, PT DECLINED. PT UP TO RESTROOM AND BACK TO CHAIR. CALL LIGHT WITHIN REACH. FAMILY AT BEDSIDE.
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
--- NOTE | 2018-03-05 10:39 | NUR ---
PATIENT DOES NOT FEEL LIKE DOING ANYTHING RIGHT NOW AND FEELS GENERALLY UNWELL. SHE REPORTS THAT SHE HAD A LOT OF LEG PAIN AFTER THERAPY YESTERDAY FROM THE STRAIGHT LEG EXERCISE (SCIATIC TYPE SYMPTOMS). HEP REVIEWED AND PATIENT HAS NO QUESTIONS. RECOMMENDED THAT IF SHE FEELS BETTER LATER TODAY THAT SHE COMPLETE HEP AND TO BRING HER REFERRAL TO OUTPATIENT IN SOON SHE CAN TO CONTINUE WITH HER PRISON GOALS. WILL CHECK IN WITH HER AGAIN TOMORROW IF SHE IS STILL AN INPATIENT (PATIENT THINKS SHE IS GOING HOME TODAY).
[2018-03-05] MEDS ORDERED: SULFAMETHOXAZO1 EAC1 PO (11:31)
--- NOTE | 2018-03-05 12:50 | NUR ---
PATIENT CALLED THIS FOOD SCIENCE PROFESSOR TO DISCUSS WRAPPING HER LEG FOR A SHOWER. THIS FOOD SCIENCE PROFESSOR REPORTED PLANS TO LISA HENDERSON. RN CAME INTO ROOM TO SPEAK WITH PATIENT REGARDING HER VISIT WITH DR DICKSON.
--- NOTE | 2018-03-05 13:16 | NUR ---
FOCUSSED ASSESSMENT AND ALTAPLASE DUE. THIS RN TO BEDSIDE TO UPDATE PT. PT REFUSES 2ND ACCESS TO PORT UNLESS SQ LIDOCANE CAN BE USED. PT EDUCATION DONE R/T LIDOCANE CREAM. PT REFUSES EDUCATION. MD CALLED. VERBAL ORDER FOR LIDOCANE INJECTION RECIEVED. PT EXPRESSES CONCERN ABOUT REDENED SKIN AROUND PORT. MD STATES TO HAVE PT APPLY LIDOCANE CREAM IF ABSLOULTY NECESSARY BUT THAT PREFERENCE WOULD BE TO LEAVE AREA ALONE. MD STATES TO LEAVE PORT ACCESSED AT SITE WHERE ACCESS IS ALREADY OBTAINED. PT UPDATED ON MDS RECCOMENDATION. PT EXPRESSES THAT SHE IS "VERY ANXIOUS" BUT REFUSES ATAVAN. PAIN MEDICAITON GIVEN REQUESTED. FAMILY AT CHAIRSIDE. PREPARATIOS MADE FOR ALTEPLASE IV PUSH INTO LEFT SIDE OF PORT.
--- NOTE | 2018-03-05 13:55 | NUR ---
PATIENT UP IN CHAIR, COUSIN ON COUCH. VITALS AND I/OS CHARTED. PATIENT EAGER TO SHWOWER AND GO HOME. CALL LIGHT IN REACH
--- NOTE | 2018-03-05 14:23 | NUR ---
PT UPDATED REGARDING PLAN OF CARE. WAITING FOR SUPPLIES FOR PORT REACCESS AND ALTEPLASE INFUSION. PT VERBALIZES UNDERSTANDING OF UPDATE.
--- NOTE | 2018-03-05 15:02 | NUR ---
THIS RN TO ROOM WITH NICK, RN AND BUSINESS AGENT TO ACCESS LEFT SIDED OF DOUBLE LUMEN PORT AND GIVEN ALTEPLASE INFUSION. PROCEDURE REVIWED WITH PT. PT EXPRESSES SEVERE ANXIETY, ATAVAN OFFERED AND DECLINED. DRESSING REMOVED FROM PORT. PORT ACCESS NEEDLE TO RIGHT SIDE REMAINS SEQURED WITH STERI STRIP. PORT AREA CLEANED WITH ALCOHOL. 1% LIDOCANE INJECTION 0.25ML GIVEN X3. TOTAL OF .75ML, OVER PORT SITE, PER PT REQUEST AND MD ORDER. PORT ACCESSED PER PROTOCOL. FLUSHES WITH DIFFCULTY. ALTEPLASE INFUSED TO LEFT SIDED ACCESS POINT PER PROTOCOL AND PACKAGE INCERT DIRECTIONS. BIO PATCH IN PLACE AT BOTH PORT ACCESS SITES. tEGADERM DRESSING OVER BOTH ACCESS POINTS. RIGHT SIDED PORT HEPARIN LOCKED PER PROTOCOL. ALCOHOL CAP APPLIED. SITE COVERED WITH ADDITIONAL OPSITE FOR SHOWER. STUMP COVERED FOR SHOWER. PT UP TO SHOWER WITH ON SITE SOIL EVALUATOR. PT TOLERATED ACCESS WELL WITHOUT TEARS OR TREMBLING. PT STATES SHE HAS NO ADDITIONAL REQUESTS OR COMPLAINTS AT THIS TIME.
--- NOTE | 2018-03-05 15:45 | NUR ---
PATIENT IN SHOWER, LISA HENDERSON COVERED PORT AND LEG. THIS DIFFUSER OPERATOR ASSISTED PATIENT WITH SHOWER AND DRESSING. DISCHARGE VITALS CHARTED.
--- NOTE | 2018-03-05 16:00 | NUR ---
PT FINISHED WITH SHOWER. THIS RN TO ROOM. DRESSING REMOVED FROM PORT A CATH. ALTEPLASE REMOVED. BLOOD RETURN NOTED BUT LINE WILL NOT FLUSH. NEEDLE REPOSITIONING ATTEMPTED. NEEDLE APPEARS TO BE IN THE CENTER OF HUB...CONTINUE TO BE UNABLE TO FLUSH. HEPARIN LOCK ATTEMPTED. 1ML INCERTED. BOTH PORT NEEDLES DEACCESSED PER PROTOCOL. BANDAID APPLIED. DISCHARGE INSTRUCTIONS REVIEWED WITH PT. PT VERBALIZES UNDERSTANDING OF INSTUCTIONS. PHARAMACY IN TO TALK WITH PT. PT VERBALIZES UNDERSTANDING. VITALS TAKEN. PT WHEELED FROM MED/SURG WITH COUSIN.
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
== END 2018-03-05 16:18 | disposition home or self-care (01) | DRG 809 ==
LOC: ED 22:25 → CCU 03-01 00:44 → MS 03-03 10:00
PROVIDERS: ADMIT Internal Medicine
DX: D70.9 Neutropenia, unspecified (principal); C49.22 Malignant neoplasm of connective and soft tissue of left lower limb, including hip; R50.81 Fever presenting with conditions classified elsewhere; Z89.442 Acquired absence of left ankle; F41.8 Other specified anxiety disorders; L59.8 Other specified disorders of the skin and subcutaneous tissue related to radiation; K21.9 Gastro-esophageal reflux disease without esophagitis; I10 Essential (primary) hypertension; G89.3 Neoplasm related pain (acute) (chronic)
CPT/HCPCS: 71045; 80048; 80053; 80202; 81001; 83605; 83735; 85025; 85610; 85651; 85730; 86703; 86707; 86803; 87350; 93005; 93010; 96374; 96375; 96523; 97110; 97163; 97165; 99285; J0692; J0780; J1650; J2997; J3370; J3480; J7040; J7050; J7060; J7120

== ENCOUNTER 2018-03-21 15:39 | Emergency (ER) | payer BC, OTHER ==
[~2018-03-21] VITALS: Ht 172.7 cm; Wt 137.9 kg
[~2018-03-21 15:39] MED LIST changes: +ATIVAN0.5 MG PO; +CITALOPRAM HBR40 MG PO; +CLARITIN10 MG PO; +DEXAMETHASONE4 MG PO; +LYRICA150 MG PO; +LYRICA75 MG PO; +MAGIC MOUTHWASH PO; +ONDANSETRON HCL8 MG PO; +OXYCODONE HCL5 MG PO; +PROCHLORPERAZIN10 MG PO; +RANITIDINE HCL150 MG PO; +SULFAMETHOXAZO1 EAC1 PO; +ZOFRAN ODT4 MG PO; +ZYPREXA5 MG PO
[2018-03-21] MEDS ORDERED: CLEOCIN HCL300 MG PO (16:20)
--- NOTE | 2018-03-21 16:29 | NUR ---
CALLED TO Oskar Wynne TO ACCESS PORTACATH. ACCESSED PER PROTOCAL. PT HAD TOPICAL CREAM FOR NUMBING PRIOR TO. #20 1 IN NEEDLE WITH IMMEDIATE BLOOD RETURN LABS DRAWN AND GIVEN TO Oskar Wynne RN. FLUSHED WITH SALINE. RN STATES GOING TO GIVE IV FLUIDS. TOLERATED WELL.
== END 2018-03-21 18:40 | disposition home or self-care (01) ==
LOC: ED 15:39
DX: E87.6 Hypokalemia (principal); D70.1 Agranulocytosis secondary to cancer chemotherapy; F41.9 Anxiety disorder, unspecified; F32.9 Major depressive disorder, single episode, unspecified; E66.01 Morbid (severe) obesity due to excess calories; Z88.5 Allergy status to narcotic agent; Z88.8 Allergy status to other drugs, medicaments and biological substances; Z79.899 Other long term (current) drug therapy
CPT/HCPCS: 71045; 81001; 83605; 96361; 96365; 96375; 99284; J3480; J7030

== ENCOUNTER 2018-04-16 21:28 | Emergency (ER) | payer BC, OTHER ==
[~2018-04-16] VITALS: Ht 172.7 cm; Wt 137.9 kg
--- OUTSIDE RECORDS SUMMARY | ~2018-04-16 | XMS | Encounter Summary ---
Demographics + + + | Address | [address] | | | [place] [address] | + + + | Home Phone | | + + + | Preferred Language | Unknown | + + + | Marital Status | Single | + + + | Church Affiliation | CAT | + + + | Race | Unknown | + + + | Ethnic Group | Not or | + + + Author + + + | Author | [facility] | + + + | Organization | [facility] | + + + | Address | Unknown | + + + | Phone | Unavailable | + + + Support + + +---------+ + | Name | Relationship | Address | Phone | + + +---------+ + | ROSE BOWENS | ECON | Unknown | | + + +---------+ + Care Team Providers + +------+ + | Care Product Safety Associate Name | Role | Phone | + +------+ + | Santo Gooden MD | PCP | | + +------+ + Reason for Referral Diagnostic Testing (Routine) + +--------+ + + + + | Status | Reason | Specialty | Diagnoses / | Referred By | Referred To | | | | | Procedures | Contact | Contact | + +--------+ + + + + | New Request | | Cardiology | Diagnoses | Jorge | | | | | | Synovial | Sandra Schmitt MD | | | | | | sarcoma | [address] | | | | | | ([facility]) | Ave | | | | | | Procedures | [place], [place] | | | | | | TRANSTHORACI | [address] | | | | | | C | Phone: | | | | | | ECHOCARDIOGR | [phone] | | | | | | AM, ADULT | Fax: | | | | | | | [phone] | | + +--------+ + + + + Encounter Details +--------+ + + + + | Date | Type | Department | Care Team | Description | +--------+ + + + + | 01/31/ | Valve Inserter | Hematology/Medical | Sandra Patel MD | 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[place] | [address] | ([facility]) (Primary Dx) | | | | for Health & Healing | [place], [place] | | | | | [address] | [address] | | | | | Mailcode: [facility] | [phone] | | | | | [facility] | | | | | | and Healing, [facility] | | | | | | [place], [place] | | | | | | [address] | | | | | | [phone] | | | +--------+ + + + [...] + +---------+ + | Alcohol Use | Drinks/We | oz/Week | Comments | | | ek | | | + + +---------+ + | No | | | | + + +---------+ + + + + | Sex Assigned at | Date Recorded | | | | + + + | Not on file | | + + + as of this encounter Plan of Treatment +--------+ + + + + | Date | Type | Specialty | Care Team | Description | +--------+ + + + + | 04/24/ | Appointment | Hematology & | NurseDarwin Starter | | | 2017 | | Oncology | [address] [facility] | | | | | | [place] [address] | | +--------+ + + + + | 04/24/ | Office | Hematology & | Annie Gannon, | | | 2017 | Visit | Oncology | [facility] [address] | | | | | [address] | | | | | | [place], [place] | | | | | | [address] | | | | | | [phone] | | | | | | | | +--------+ + + + + | 04/24/ | Hospital | Adult Acute Care | Savanna Mari, | | | 2017 | Encounter | | [address] | | | | | | [place], [place] | | | | | | [address] | | | | | | [phone] | | | | | | | | +--------+ + + + + | 05/15/ | Appointment | Hematology & | | | | 2017 | | Oncology | | | +--------+ + + + + | 05/15/ | Office | Hematology & | Sandra Patel MD | | | 2017 | Visit | Oncology | [address] | | | | | | [place], [place] | | | | | | [address] | | | | | | [phone] | | | | | | | | +--------+ + + + + + +--------+ + + | Name | Priori | Associated Diagnoses | Order Schedule | | | ty | | | + +--------+ + + | TRANSTHORACIC ECHOCARDIOGRAM, | Routin | Synovial sarcoma | Ordered: 01/31/2018 | | ADULT | e | (HCC) | | + +--------+ + + as of this encounter Visit Diagnoses + + | Diagnosis | + + | Synovial sarcoma (HCC) - Primary | + + | 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
--- OUTSIDE RECORDS SUMMARY | ~2018-04-16 | XMS | Encounter Summary ---
Demographics + + + | Address | [address] | | | [place] [address] | + + + | Home Phone | | + + + | Preferred Language | Unknown | + + + | Marital Status | Single | + + + | Congregation Affiliation | CAT | + + + | Race | Unknown | + + + | Ethnic Group | Not or | + + + Author + + + | Author | [facility] | + + + | Organization | [facility] | + + + | Address | Unknown | + + + | Phone | Unavailable | + + + Support + + +---------+ + | Name | Relationship | Address | Phone | + + +---------+ + | ROSE BOWENS | ECON | Unknown | | + + +---------+ + Care Team Providers + +------+ + | Care Digital Learning Platforms Manager Name | Role | Phone | + +------+ + | Santo Gooden MD | PCP | | + +------+ + Encounter Details +--------+ + + + + | Date | Type | Department | Care Team | Description | +--------+ + + + + | 02/07/ | Procedure | 4N INTRA OP | | | | 2017 | Pass | [facility] | | | | | | Ambulatory Surgery | | | | | | Admitting Desk | | | | | | Located on the 4th | | | | | | floor, Room 4519 | | | | | | [address] | | | | | | [facility], | | | | | | [place] [address] | | | +--------+ + + + [...] + + + as of this encounter Functional Status + + + + | Functional Status | Response | Date of Assessment | + + + + | Because of a physical, mental, or emotional | No | 02/07/2018 | | condition, do you have serious difficulty | | | | doing errands alone such as visiting the | | | | doctor? | | | + + + + + + + + | Cognitive Status | Response | Date of Assessment | + + + + | Because of a physical, mental, or emotional | No | 02/07/2018 | | condition, do you have serious difficulty | | | | concentrating, remembering, or making | | | | decisions? (5 years old or older) | | | + + + + as of this encounter Plan of Treatment +--------+ + + + + | Date | Type | Specialty | Care Team | Description | +--------+ + + + + | 04/24/ | Appointment | Hematology & | Darwin Juan Starter | | | 2017 | | Oncology | [address] | | | | | | [place] [address] | | +--------+ + + + + | 04/24/ | Office | Hematology & | Annie Gannon, | | | 2018 | Visit | Oncology | [facility] [address] | | | | | [address] | | | | | | [place], [place] | | | | | | [address] | | | | | | [phone] | | | | | | | | +--------+ + + + + | 04/24/ | Hospital | Adult Acute Care | Savanna Mari, | | | 2018 | Encounter | | [address] | | | | | | [place], [place] | | | | | | [address] | | | | | | [phone] | | | | | | | | +--------+ + + + + | 05/15/ | Appointment | Hematology & | | | | 2017 | | Oncology | | | +--------+ + + + + | 05/15/ | Office | Hematology & | Sandra Patel MD | | | 2018 | Visit | Oncology | [address] | | | | | | [place], [place] | | | | | | [address] | | | | | | [phone] | | | | | | | | +--------+ + + + + as of this encounter Visit Diagnoses Not on filein this encounter"
--- OUTSIDE RECORDS SUMMARY | ~2018-04-16 | XMS | Encounter Summary ---
Demographics + + + | Address | [address] | | | [place] [address] | + + + | Home Phone | | + + + | Preferred Language | Unknown | + + + | Marital Status | Single | + + + | Jainism Affiliation | CAT | + + + | Race | Unknown | + + + | Ethnic Group | Not or | + + + Author + + + | Author | [facility] | + + + | Organization | [facility] | + + + | Address | Unknown | + + + | Phone | Unavailable | + + + Support + + +---------+ + | Name | Relationship | Address | Phone | + + +---------+ + | ROSE BOWENS | ECON | Unknown | | + + +---------+ + Care Team Providers + +------+ + | Care Branch Customer Service Representative Name | Role | Phone | + +------+ + | Santo Gooden MD | PCP | | + +------+ + Reason for Visit + + + | Reason | Comments | + + + | Social Work Notes | | + + + Encounter Details +--------+ + + + + | Date | Type | Department | Care Team | Description | +--------+ + + + + | 02/19/ | Documentati | Hematology/Medical | Work, Social | Social Work Notes | | 2018 | on | Oncology at [place] | | | | | | for Health & Healing | | | | | | [address] | | | | | | Mailcode: CH7M | | | | | | [facility] | | | | | | and , | | | | | | Floor [place], [place] | | | | | | [address] | | | | | | [phone] | | | +--------+ + + + [...] Appointment | Hematology & | Darwin Juan | | | 2018 | | Oncology | [address] | | | | | | [place] [address] | | +--------+ + + + + | 04/24/ | Office | Hematology & | Annie Gannon, | | | 2017 | Visit | Oncology | [facility] [address] | [address] | | [address] | | | | | | [place], [place] | | | | | | [address] | | | | | | [phone] | | | | | | | | +--------+ + + + + | 04/24/ | Hospital | Adult Acute Care | Savanna Mari, | | | 2017 | Encounter | | MD [address] | | | | | | [place], [place] | | | | | | [address] | | | | | | [phone] | | | | | | | [...] [address] | | | | | | [place] | | | | | | [address] | | | | | | [phone] | | | | | | | | +--------+ + + + + as of this encounter Visit Diagnoses Not on filein this encounter"
--- OUTSIDE RECORDS SUMMARY | ~2018-04-16 | XMS | Encounter Summary ---
Demographics + + + | Address | [address] | | | [place] [address] | + + + | Home Phone | | + + + | Preferred Language | Unknown | + + + | Marital Status | Single | + + + | Buddhist Affiliation | CAT | + + + [...] Team Providers + +------+ + | Care Data Processing Mechanic Name | Role | Phone | + [...] | +--------+ + + + + | 01/28/ | Telephone | Hematology/Medical | Work, Social | Social Work Notes | | 2017 | | Oncology at [place] | | | | | | for Health & Healing | | | | | | [address] | | | | | | Mailcode: CH7M | | | | | | [facility] | | | | | | and Healing, 7th | | | | | | Floor [place], [place] | | | | | | [address] | | | | | | [phone] | | | +--------+ + + + [...] 04/24/ | Appointment | Hematology & | Nurse, Hem Starter | | | 2017 | | Oncology | [address] | | | | | | [place] [address] | | +--------+ + + + + | 04/24/ | Office | Hematology & | Annie Gannon, | | | 2017 | Visit | Oncology | [facility] [address] | | | | | [address] | | | | | | [place], [place] | | | | | | [address] | | | | | | [phone] | | | | | | | | +--------+ + + + + | 04/24/ | Hospital | Adult Acute Care | Savanna Mari, | | | 2017 | Encounter | | [address] | | | | | | [place], [place] | | | | | | [address] | | | | | | [phone] | | | | | | | | +--------+ + + + + | 05/15/ | Appointment | Hematology & | | | | 2017 | | Oncology | | | +--------+ + + + + | 05/15/ | Office | Hematology & | Sandra Patel MD | | | 2017 | Visit | Oncology | [address] | | | | | | [place], [place] | | | | | | [address] | | | | | | [phone] | | | | | | | | +--------+ + + + + as of this encounter Visit Diagnoses Not on filein this encounter"
--- OUTSIDE RECORDS SUMMARY | ~2018-04-16 | XMS | Encounter Summary ---
Demographics + + + | Address | [address] | | | [place] [address] | + + + | Home Phone | | + + + | Preferred Language | Unknown | + + + | Marital Status | Single | + + + | Oriental Orthodox Affiliation | CAT | + + + | Race | Unknown | + + + | Ethnic Group | Not or | + + + Author + + + | Author | [facility] | + + + | Organization | [facility] | + + + | Address | Unknown | + + + | Phone | Unavailable | + + + Support + + +---------+ + | Name | Relationship | Address | Phone | + + +---------+ + | ROSE BOWENS | ECON | Unknown | | + + +---------+ + Care Team Providers + +------+ + | Care Farm Implement Mechanic Name | Role | Phone | + +------+ + | Santo Gooden MD | PCP | | + +------+ + Encounter Details +--------+ + + + + | Date | Type | Department | Care Team | Description | +--------+ + + + + | 03/27/ | Procedure | 6A Intra Op [facility] | | | | 2017 | Pass | [facility] | | | | | | Admitting Desk | | | | | | Located on the 9th | | | | | | floor [address] [facility] | | | | | | [facility] | | | | | | [place], [place] | | | | | | [address] | | | +--------+ + + + [...] physical, mental, or emotional | No | 03/25/2018 | | condition, do you have serious difficulty | | | | doing errands alone such as visiting the | | | | doctor? | | | + + + + + + + + | Cognitive Status | Response | Date of Assessment | + + + + | Because of a physical, mental, or emotional | No | 03/25/2018 | | condition, do you have serious [...] | | Oncology | [address] [facility] | | | | | | [place] [address] | | +--------+ + + + + | 04/24/ | Office | Hematology & | Annie Gannon, | | | 2017 | Visit | Oncology | [facility] [address] | | | | | [address] | | | | | | [place], [place] | | | | | | [address] | | | | | | [phone] | | | | | | | | +--------+ + + + + | 04/24/ | Hospital | Adult Acute Care | Savanna Mari, | | | 2017 | Encounter | | [address] | | | | | | [place], [place] | | | | | | [address] | | | | | | [phone] | | | | | | | [...] [address] | | | | | | [place], [place] | | | | | | [address] | | | | | | [phone] | | | | | | | | +--------+ + + + + as of this encounter Visit Diagnoses Not on filein this encounter"
--- OUTSIDE RECORDS SUMMARY | ~2018-04-16 | XMS | Encounter Summary ---
Demographics + + + | Address | [address] | | | [place] [address] | + + + | Home Phone | | + + + | Preferred Language | Unknown | + + + | Marital Status | Single | + + + | Yarsani Affiliation | CAT | + + + | Race | Unknown | + + + | Ethnic Group | Not or | + + + Author + + + | Author | [facility] | + + + | Organization | [facility] | + + + | Address | Unknown | + + + | Phone | Unavailable | + + + Support + + +---------+ + | Name | Relationship | Address | Phone | + + +---------+ + | ROSE BOWENS | ECON | Unknown | | + + +---------+ + Care Team Providers + +------+ + | Care Equipment Tech Name | Role | Phone | + +------+ + | Santo Gooden MD | PCP | | + +------+ + Reason for Visit + + + | Reason | Comments | + + + | PICC line | | + + + Encounter Details +--------+ + + + + | Date | Type | Department | Care Team | Description | +--------+ + + + + | 04/15/ | Telephone | Infectious | Angely Stephen, | PICC line | | 2018 | | Diseases at [facility] | [address] | | | | | Floor [address] | [facility] | | | | | [facility] | [place], [place] | | | | | Mailcode: [id number] | [address] | | | | | Physicians Katie | [phone] | | | | | [place], [place] | | | | | | [address] | | | | | | [phone] | | | +--------+ + + + [...] | Nurse, Hem Starter | | | 2018 | | Oncology | [address] | | | | | | [place] [address] | | +--------+ + + + + | 04/24/ | Office | Hematology & | Annie Gannon, | | | 2017 | Visit | Oncology | AGACNP,PSYCHODRAMATIST [address] | | | | | [address] | | | | | | [place], [place] | | | | | | [address] | | | | | | [phone] | | | | | | | | +--------+ + + + + | 04/24/ | Hospital | Adult Acute Care | Savanna Mari, | | | 2017 | Encounter | | [address] | | | | | | [place], [place] | | | | | | [address] | | | | | | [phone] | | | | | | | [...] Scott | | | | | | [place] | | | | | | [address] | | | | | | [phone] | | | | | | | | +--------+ + + + + as of this encounter Visit Diagnoses Not on filein this encounter"
--- OUTSIDE RECORDS SUMMARY | ~2018-04-16 | XMS | Encounter Summary ---
Demographics + + + | Address | [address] | | | [place] [address] | + + + | Home Phone | | + + + | Preferred Language | Unknown | + + + | Marital Status | Single | + + + | Gnosticism Affiliation | CAT | + + + | Race | Unknown | + + + | Ethnic Group | Not or | + + + Author + + + | Author | [facility] | + + + | Organization | [facility] | + + + | Address | Unknown | + + + | Phone | Unavailable | + + + Support + + +---------+ + | Name | Relationship | Address | Phone | + + +---------+ + | ROSE BOWENS | ECON | Unknown | | + + +---------+ + Care Team Providers + +------+ + | Care Client Coordinator Name | Role | Phone | + +------+ + | Santo Gooden MD | PCP | | + +------+ + Encounter Details +--------+--------+ + + + | Date | Type | Department | Care Team | Description | +--------+--------+ + + + | 03/01/ | Intake | Transfer Center | | N/A | | 2018 | | [address] | | | | | | [place], | | | | | | [place] [address] | | | +--------+--------+ + + + Social History + +-------+ [...] | Appointment | Hematology & | Darwin Juaner | | | 2017 | | Oncology | [address] [facility] | | | | | | [place] [address] | | +--------+ + + + + | 04/24/ | Office | Hematology & | Annie Gannon, | | | 2017 | Visit | Oncology | [place],SENIOR JAVA WEB APPLICATION DEVELOPER [address] | | [address] | | | | | | [place], [place] | | | | | | [address] | | | | | | [phone] | | | | | | | | +--------+ + + + + | 04/24/ | Hospital | Adult Acute Care | Savanna Mari, | | | 2017 | Encounter | | [address] | | | | | | [place], [place] | | | | | | [address] | | | | | | [phone] | | | | | | | | +--------+ + + + + | 05/15/ | Appointment | Hematology & | | | | 2017 | | Oncology | | | +--------+ + + + + | 05/15/ | Office | Hematology & | Sandra Patel MD | | | 2017 | Visit | Oncology | [address] | | | | | | [place], [place] | | | | | | [address] | | | | | | [phone] | | | | | | | | +--------+ + + + + as of this encounter Visit Diagnoses Not on filein this encounter"
--- OUTSIDE RECORDS SUMMARY | ~2018-04-16 | XMS | Encounter Summary ---
Demographics + + + | Address | [address] | | | [place] [address] | + + + | Home Phone | | + + + | Preferred Language | Unknown | + + + | Marital Status | Single | + + + | Confucianism Affiliation | CAT | + + + | Race | Unknown | + + + | Ethnic Group | Not or | + + + Author + + + | Author | [facility] | + + + | Organization | [facility] | + + + | Address | Unknown | + + + | Phone | Unavailable | + + + Support + + +---------+ + | Name | Relationship | Address | Phone | + + +---------+ + | ROSE BOWENS | ECON | Unknown | | + + +---------+ + Care Team Providers + +------+ + | Care Er Rn Name | Role | Phone | + +------+ + | Santo Gooden MD | PCP | | + +------+ + Reason for Visit + + + | Reason | Comments | + + + | Treatment | port maintenance | | Clarification | | + + + Encounter Details +--------+ + + + + | Date | Type | Department | Care Team | Description | +--------+ + + + + | 04/10/ | Telephone | Hematology/Medical | Sandra Patel MD | Treatment | | 2018 | | Oncology at [facility] | [address] | Clarification (port | | | | for [facility] & Healing | [place], [place] | maintenance) | | | | [address] | [address] | | | | | Mailcode: [id number] | [phone] | | | | | [facility] | | | | | | and Healing, [address]th | | | | | | [place], [place] | | | | | | [address] | | | | | | [phone] | | | +--------+ + + + [...] 2017 | | Oncology | [address] | | | | | | [place] [address] | | +--------+ + + + + | 04/24/ | Office | Hematology & | Annie Gannon, | | | 2017 | Visit | Oncology | [place]OME,WOLFGANG [address] | | [address] | | | | | | [place], [place] | | | | | | [address] | | | | | | [phone] | | | | | | | | +--------+ + + + + | 04/24/ | Hospital | Adult Acute Care | Savanna Mari, | | | 2017 | Encounter | | [address] | | | | | | [place], [place] | | | | | | [address] | | | | | | [phone] | | | | | | | [...] Scott | | | | | | [place] | | | | | | [address] | | | | | | [phone] | | | | | | | | +--------+ + + + + as of this encounter Visit Diagnoses Not on filein this encounter"
--- OUTSIDE RECORDS SUMMARY | ~2018-04-16 | XMS | Encounter Summary ---
Demographics + + + | Address | [address] | | | [place] [address] | + + + | Home Phone [...] Author + + + | Author | [facility] | + + + | Organization | [facility] | + + + | Address | Unknown | + + + | Phone | Unavailable | + + + Support + + +---------+ + | Name | Relationship | Address | Phone | + + +---------+ + | ROSE CAGE | ECON | Unknown | | + + +---------+ + Care Team Providers + +------+ + | Care Statistical Developer Name | Role | Phone | + +------+ + | Santo Gooden MD | PCP | | + +------+ + Reason for Visit + + + | Reason | Comments | + + + | Follow-up visit | | + + + | Soft tissue sarcoma | | + + + AUTH/CERT +--------+--------+ + + + + | [...] Description | +--------+---------+ + + + | 02/19/ | Office | Hematology/Medical | Sandra Patel MD | 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 | Oncology at [facility] | [address] | ([facility] (Primary Dx) | | | | for Health & Healing | [place], [place] | | | | | [address] | [address] | | | | | Mailcode: [id number] | [phone] | | | | | [facility] | | | | | | and [facility], | | | | | | [place], [place] | | | | | | [address] | | | | | | [phone] | | | +--------+---------+ + + + [...] + + + as of this encounter Last Filed Vital Signs + + + + | Vital Sign | Reading | Time Taken | + + + + | Blood Pressure | 140/81 | 02/19/2018 2:37 PM PDT | + + + + | Pulse | 72 | 02/19/2018 2:37 PM PDT | + + + + | Temperature | 36.7 C (98 F) | 02/19/2018 2:37 PM PDT | + + + + | Respiratory Rate | 16 | 02/19/2018 2:37 PM PDT | + + + + | Oxygen Saturation | 98% | 02/19/2018 2:37 PM PDT | + + + + | Inhaled Oxygen | - | - | | Concentration | | | + + + + | Weight | 137.9 kg (304 lb 1.6 | 02/19/2018 2:37 PM PDT | | | oz) | | + + + + | Height | - | - | + + + + | Body Mass Index | 46.24 | 02/19/2018 2:37 PM PDT | + + + + in this encounter Functional Status + + [...] + + + as of this encounter Progress Notes Sandra Patel MD - 02/19/2018 3:10 PM PDTFormatting of this note may be different from remedios thorne original. 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 Has phantom pain. Stump pain not significant. She changed dressing a few days ago and it was clean without erythema. Continues on aspirin & Tylenol History: Prior records reviewed. Tati Cage is a 32 y.o. 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 She first noticed a lump in September 2017, which grew in si ze of the next few months. Initially treated conservatively. She sought re-evaluation in Dec when it became increasingly painful. A MRI showed a 8 cm mass in her medial midfoot renetta rning for malignancy. Dr Basurto obtained a biopsy on 01/15/18. Pathology consistent with synov ial sarcoma, SYT FISH positive. Staging chest CT negative. Rapid local progression with pain and infection necessitating upfront amputation on 02/06/[address] Basurto. ROS: Return Visit Health History Update form reviewed & scanned. No updates to past medical, surgical, social and family history. MEDICATIONS: acetaminophen 500 mg oral tablet, Take 2 tablets by mouth every six hours as needed. Use th is medication to help wean off your stronger opiate medication. DO NOT exceed 4000 mg in a 2 4 hr period. Indications: Pain aspirin EC 325 mg oral tablet,delayed release (DR/EC), Take 1 tablet by mouth once daily fo r 21 days. Indications: Post op VTE ppx citalopram 40 mg oral tablet, Take 40 mg by mouth once daily. CLONAZEPAM ORAL, Take by mouth three times daily. gabapentin 300 mg oral capsule, Take 3 capsules by mouth three times daily. Indications: Po stoperative Acute Pain (Patient not taking: Reported on 02/19/2018) hydroCHLOROthiazide 25 mg oral tablet, Take 25 mg by mouth once daily. hydrocortisone 1 % topical cream, Apply to affected area twice daily as needed (multimodal control of itching). Apply a thin film to clean, dry skin and rub in gently. Indications: Pr uritus of Skin loratadine (CLARITIN) 10 mg oral tablet, Take 10 mg by mouth once daily. nystatin 100,000 unit/gram topical powder, Apply to affected area two times daily. Apply to candidal lesions until lesions have healed. Indications: skin infection, redness in pannus, skin folds oxyCODONE (immediate release) 5 mg oral tablet, Take 1-3 tablets by mouth every three hours as needed for moderate pain. Wean off soon and do not combine with other sedating meds like Clonazapam Indications: Pain phentermine 37.5 mg oral capsule, Take 37.5 mg by mouth once daily. Administer before break fast. polyethylene glycol 17 gram oral powder in packet, Mix 1 packet and take orally once daily. Take this medication while you are on narcotic pain medication. Hold for loose stool Indica tions: constipation (Patient not taking: Reported on 02/19/2018) pregabalin (LYRICA) 75 mg oral capsule, Take 1 capsule by mouth two times daily. Titrate up to 2 capsules(150mg) twice daily in 5-7 days. Max: 600 mg/day senna-docusate 8.6-50 mg oral tablet, Take 2 tablets by mouth two times daily. Take this me dication while you are on narcotic pain medication. Hold for loose stool Indications: nilam edwards (Patient not taking: Reported on 02/19/2018) Allergies Allergen Reactions Demerol [Meperidine Hcl] Pruritus Morphine Pruritus PHYSICAL EXAM: BP 140/81 | Pulse 72 | Temp (Src) 36.7 C (98 F) (Oral) | RR 16 | Wt 137.9 kg (304 lb 1. 6 oz) | SpO2 98% | BMI 46.24 kg/(m^2) Constitutional - Anxious appearing overweight woman Eyes - Anicteric sclera, no drainage. ENT - Oropharynx moist, without exudates or lesions. Respiratory - Clear to auscultation bilaterally. Cardiac - Regular rate and rhythm without murmur. Abdomen/GI - Soft, nontender, nondistended. Skin - No bruising or rashes. Port site without erythema. Per Dr Coats, stitches remain at both ends of incision - at risk for wound dehiscence Musculoskeletal - S/p left BKA. Stump with c/d/I dressing. Remaining extremities warm, well perfused. No edema. Neurologic - Awake, alert. mentally impaired teacher grossly intact. Affect/Psych - Appropriate. ECOG - 0 LABS: Recent Labs 02/19/18 1423 WBC 7.1 HCT 36.4 HB 12.4 MCV 88.3 PLT 405* NEUTROPHILCO 3.6 Recent Labs 02/19/18 1428 NA 143 K 3.9 CL 106 BICARB 29 BUN 16 CR 0.9 GLU 88 CA 9.5 AST 28 ALT 26 TBILI 0.5 AP 46 ALB 3.5 TP 7.2 PATHOLOGY: 02/06/18 Left leg, amputation: ? Synovial sarcoma, with extensive acute inflammation, abscess, and necrosis ,see synoptic report ? Margins negative for tumor ASSESSMENT: Tati Cage is a 32 y.o. old woman with 32 y.o. old woman with a high ri sk synovial sarcoma of the left foot. Rapid local progression with pain and infection necessitating upfront amputation on 02/06/[address] Basurto. Dual lumen port placed at that time. PLAN: Treatment plan: Epirubicin 30 mg/m2 daily x4 days Ifosfamide 2.5 mg/m2 daily x4 days Neulasta q21d Post-op aspirin can be continued while receiving chemotherapy inpatient but should be DISCO NTINUED at time of discharge due to anticipated thrombocytopenia. This plan has been discuss ed with Dr Coats, who agrees. Pain. Has been taking Tylenol q6h. Advised change to judicious use of oxycodone while on ch emotherapy. An occasional dose of Tylenol or naproxen may be ok during chemotherapy, but shine uld be rare (due to antipyretic and anti-platelet effects, respectively). BKA incision. At risk for wound dehiscence, but benefit of chemotherapy outweighs risk. Wesley pineda. Sandra Patel MD Buyers' Agent Medical Oncology & Pediatric Hematology/Oncology [facility] in this encounter Plan of Treatment +--------+ + + + + | Date | Type | Specialty | Care Team | Description | +--------+ + + + + | 04/24/ | Appointment | Hematology & | NurseDarwin Starter | | | 2018 | | Oncology | [address] [facility] | | | | | | [place] [address] | | +--------+ + + + + | 04/24/ | Office | Hematology & | Annie Gannon, | | | 2017 | Visit | Oncology | AGAP,METAL SOLDERER [address] | [address] | | | | | | [place], [place] | | | | | | [address] | | | | | | [phone] | | | | | | | | +--------+ + + + + | 04/24/ | Hospital | Adult Acute Care | Savanna Mari, | | | 2017 | Encounter | | [address] | | | | | | [place], [place] | | | | | | [address] | | | | | | [phone] | | | | | | | [...] [address] | | | | | | [facility] [place] | | | | | | [address] | | | | | | [phone] | | | | | | | | +--------+ + + + + as of this encounter Visit Diagnoses + + | Diagnosis | + + | Synovial sarcoma (HCC) - Primary | + + | 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
--- OUTSIDE RECORDS SUMMARY | ~2018-04-16 | XMS | Encounter Summary ---
Demographics + + + | Address | [address] | | | [place] [address] | + + + | Home Phone | | + + + | Preferred Language | Unknown | + + + | Marital Status | Single | + + + | Anabaptism Affiliation | CAT | + + + | Race | Unknown | + + + | Ethnic Group | Not or | + + + Author + + + | Author | [facility] | + + + | Organization | [facility] | + + + | Address | Unknown | + + + | Phone | Unavailable | + + + Support + + +---------+ + | Name | Relationship | Address | Phone | + + +---------+ + | ROSE BOWENS | ECON | Unknown | | + + +---------+ + Care Team Providers + +------+ + | Care Cow Washer Name | Role | Phone | + +------+ + | Santo Gooden MD | PCP | | + +------+ + Reason for Visit + + + | Reason | Comments | + + + | Lab Draw | PAC | + + + AUTH/CERT +--------+--------+ + + + + | Status | Reason | Specialty | Diagnoses / | Referred By | Referred To | | | | | Procedures | Contact | Contact | +--------+--------+ + + + + | | | | | | | +--------+--------+ + + + + Encounter Details +--------+ + + + + | Date | Type | Department | Care Team | Description | +--------+ + + + + | 03/12/ | Hospital | Hematology/Medical | Nurse, Hem Starter | | | 2018 | Encounter | Oncology at [facility] | [address] | | | | | [address] | [place] [address] | | | | | Mailcode: [facility] | | | | | | [facility] | | | | | | and [facility], | | | | | | [place], [place] | | | | | | [address] | | | | | | [phone] | | | +--------+ + + + [...] + + + as of this encounter Medications at Time of Discharge + + + +---------+ + + | Medication | Sig. | Disp. | Refills | Start | End Date | | | | | | Date | | + + + +---------+ + + | citalopram 40 mg | Take 40 mg by mouth | | | | | | oral tablet | once daily. | | | | | + + + +---------+ + + | | Apply to affected | 25 g | 1 | 02/21/20 | | | lidocaine-prilocaine | area as needed. | | | 18 | | | (EMLA) 2.5-2.5 % | Apply a thick layer | | | | | | topical cream | to intact skin and | | | | | | | cover with an | | | | | | | occlusive dressing. | | | | | + + + +---------+ + + | loratadine | Take 10 mg by mouth | | | | | | (CLARITIN) 10 mg | once daily. | | | | | | oral tablet | | | | | | + + + +---------+ + + | LORazepam 0.5 mg | Take 1 tablet by | 30 | 0 | 03/14/20 | | | oral | mouth every six | tablet | | 18 | | | tabletIndications: | hours as needed for | | | | | | Synovial sarcoma | anxiety (1st line | | | | | | ([facility]) | nausea/vomiting). | | | | | + + + +---------+ + + | Miscellaneous | Bedside commode for | 1 each | 0 | 02/26/20 | | | Medical Supply misc | nighttime use | | | 18 | | | | following foot | | | | | | | amputation. | | | | | + + + +---------+ + + | nystatin 100,000 | Apply to affected | 15 g | 0 | 02/12/20 | | | unit/gram topical | area two times | | | 18 | | | powderIndications: | daily. Apply to | | | | | | soft tissue | candidal lesions | | | | | | infection, redness | until lesions have | | | | | | in pannus, skin | healed. Indications: | | | | | | folds | skin infection, | | | | | | | redness in pannus, | | | | | | | skin folds | | | | | + + + +---------+ + + | ondansetron 8 mg | Take 1 tablet by | 30 | 1 | 03/14/20 | | | oral | mouth every twelve | tablet | | 18 | | | tabletIndications: | hours as needed (2nd | | | | | | Synovial sarcoma | line for | | | | | | ([facility]) | nausea/vomiting). | | | | | + + + +---------+ + + | prochlorperazine | Take 1 tablet by | 30 | 1 | 03/13/20 | | | 10 mg oral | mouth every six | tablet | | 18 | | | tabletIndications: | hours as needed | | | | | | Synovial sarcoma | (Give as first line | | | | | | (HCC) | agent for acute or | | | | | | | delayed | | | | | | | nausea/vomiting). | | | | | | | Max dose: 40 mg/day | | | | | + + + +---------+ + + | ranitidine 150 mg | Take 150 mg by mouth | | | | | | oral tablet | once daily at | | | | | | | bedtime. | | | | | + + + +---------+ + + as of this encounter Progress Notes Siria Dill, LISA - 03/12/2018 1:20 PM PDTDouble lumen PAC accessed per protocol. CBC and CMP were drawn via medial PAC, resulted via POC. PAC flushed per protocol and left accessed for treatment. Pt tolerated without incident. Pt discharged to provider visit. in this encounter Plan of Treatment +--------+ + + + + | Date | Type | Specialty | Care Team | Description | +--------+ + + + + | 04/24/ | Appointment | Hematology & | Nurse, Hem Starter | | | 2017 | | Oncology | [address] | | | | | | [place] [address] | | +--------+ + + + + | 04/24/ | Office | Hematology & | Annie Gannon, | | | 2017 | Visit | Oncology | AGACNP,CAFETERIA CASHIER [address] | | | | | [address] | | | | | | [place], [place] | | | | | | [address] | | | | | | [phone] | | | | | | | | +--------+ + + + + | 04/24/ | Hospital | Adult Acute Care | Savanna Mari, | | | 2017 | Encounter | | MD [address] | | | | | | [place], [place] | | | | | | [address] | | | | | | [phone] | | | | | | | | +--------+ + + + + | 05/15/ | Appointment | Hematology & | | | | 2017 | | Oncology | | | +--------+ + + + + | 05/15/ | Office | Hematology & | Sandra Patel MD | | | 2018 | Visit | Oncology | [address] | | | | | | [place], [place] | | | | | | [address] | | | | | | [phone] | | | | | | | | +--------+ + + + + + +--------+ + + | Name | Priori | Associated Diagnoses | Order Schedule | | | ty | | | + +--------+ + + | PHOSPHORUS, PLASMA | Routin | Synovial sarcoma | Ordered: 03/12/2018 | | | e | (HCC) | | + +--------+ + + | MAGNESIUM, PLASMA | Routin | Synovial sarcoma | Ordered: 03/12/2018 | | | e | (HCC) | | + +--------+ + + as of this encounter Results CMP, POC (BMP+LFT) (03/12/2018 2:20 PM) + +-------+ + | Component | Value | Ref Range | + +-------+ + | SODIUM, POC | 141 | 134 - 143 mmol/L | + +-------+ + | POTASSIUM, POC | 3.4 | 3.4 - 5.0 mmol/L | + +-------+ + | TOTAL CO2, POC | 27 | 22 - 29 mmol/L | + +-------+ + | CHLORIDE, POC | 102 | 97 - 108 mmol/L | + +-------+ + | GLUCOSE, POC | 88 | 70 - 99 mg/dL | + +-------+ + | CALCIUM TOTAL, POC | 9.3 | 8.6 - 10.2 mg/dL | + +-------+ + | BUN, POC | 13 | 6 - 20 mg/dL | + +-------+ + | CREATININE, POC | 0.8 | 0.6 - 1.1 mg/dL | + +-------+ + | ALK PHOS, CMP POC | 55 | 33 - 76 U/L | + +-------+ + | ALT, CMP POC | 25 | 0 - 60 U/L | + +-------+ + | AST, CMP POC | 23 | 0 - 41 U/L | + +-------+ + | BILIRUBIN TOTAL, CMP | 0.5 | 0.3 - 1.2 mg/dL | | POC | | | + +-------+ + | ALBUMIN, CMP POC | 3.5 | 3.5 - 4.7 g/dL | + +-------+ + | PROTEIN TOTAL, CMP | 7.1 | 6.1 - 7.9 g/dL | | POC | | | + +-------+ + + + + | Specimen | Performing Laboratory | + + + | Blood | [facility], POINT OF CARE TESTS [address] [place], [place] | | | [address] | + + + CBC+DIFF,POC (03/12/2018 2:14 PM) + + + + | Component | Value | Ref Range | + + + + | WBC POC | 6.9 | 3.5 - 10.8 10*3/uL | + + + + | RBC POC | 3.37 (L) | 4.00 - 5.20 10*6/uL | + + + + | HGB POC | 10.2 (L) | 12.0 - 16.0 g/dL | + + + + | HCT POC | 31.0 (L) | 36.0 - 46.0 % | + + + + | MCV POC | 92.0 | 80.0 - 100 fL | + + + + | MCH POC | 30.3 | 27.0 - 34.0 pg | + + + + | MCHC POC | 32.9 (L) | 32.0 - 36.0 g/dL | + + + + | RDW SD, POC | 44.0 | 35.1 - 46.3 fL | + + + + | PLT POC | 559 (H) | 150 - 400 10*3/uL | + + + + | MPV POC | 9.4 (L) | 9.7 - 12.3 fL | + + + + | NEUTROPHIL% POC | 51.9 | 50.0 - 70.0 % | + + + + | LYMPH% POC | 30.4 | 18 - 42 % | + + + + | MONO %, POC | 14.4 (H) | 3.5 - 9.0 % | + + + + | EOS %, POC | 0.1 (L) | 1.0 - 3.0 % | + + + + | BASO %, POC | 3.2 (H) | 0.0 - 2.0 % | + + + + | NEUTROPHIL# POC | 3.6 | 1.8 - 7.7 10*3/uL | + + + + | LYMPH# POC | 2.1 | 1.0 - 4.8 10*3/uL | + + + + | MONO #, POC | 1.0 (H) | 0.1 - 0.9 10*3/uL | + + + + | EOS #, POC | 0.0 | 0.0 - 0.5 10*3/uL | + + + + | BASO #, POC | 0.2 (H) | 0.0 - 0.1 10*3/uL | + + + + + + + | Specimen | Performing Laboratory | + + + | Blood | [facility], POINT OF CARE TESTS [address] [place], [place] | | | [address] | + + + URINE, MICROSCOPIC EXAM (03/12/2018 1:44 PM) + +---------+ + | Component | Value | Ref Range | + +---------+ + | RED CELLS | <1 | 0 - 3 /hpf | + +---------+ + | WHITE CELLS | 2 | 0 - 5 /hpf | + +---------+ + | BACTERIA | None | None /hpf | + +---------+ + | YEAST (LAB) | None | None /hpf | + +---------+ + | SQUAMOUS EPITHELIAL | Few (A) | None /hpf | + +---------+ + | MUCOUS | None | None /hpf | + +---------+ + | TRICHOMONAS | None | None /hpf | + +---------+ + | NON-SQUAMOUS EPITH | None | None /hpf | + +---------+ + | HYALINE CASTS | 0 | 0 - 2 /lpf | + +---------+ + | GRANULAR CASTS | 0 | 0 - 2 /lpf | + +---------+ + | CELLULAR CASTS | 0 | <=0 /lpf | + +---------+ + | TRIPLE P04 CRYSTALS | None | None /hpf | + +---------+ + | CALCIUM OXALATE FLORENTINO | None | None /hpf | + +---------+ + | URIC ACID CRYSTALS | None | None /hpf | + +---------+ + | AMORPHOUS CRYSTALS | None | None /hpf | + +---------+ + + + + | Specimen | Performing Laboratory | + + + | Urine | [facility] [place] [address] | | | [place] [address] | + + + in this encounter Visit Diagnoses + + | Diagnosis | + + | Synovial sarcoma (HCC) | + + | 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
--- OUTSIDE RECORDS SUMMARY | ~2018-04-16 | XMS | Encounter Summary ---
Demographics + + + | Address | [address] | | | [place] [address] | + + + | Home Phone | | + + + | Preferred Language | Unknown | + + + | Marital Status | Single | + + + | Mosque Affiliation | CAT | + + + | Race | Unknown | + + + | Ethnic Group | Not or | + + + Author + + + | Author | [facility] | + + + | Organization | [facility] | + + + | Address | Unknown | + + + | Phone | Unavailable | + + + Support + + +---------+ + | Name | Relationship | Address | Phone | + + +---------+ + | ROSE BOWENS | ECON | Unknown | | + + +---------+ + Care Team Providers + +------+ + | Care Box Toe Buffer Name | Role | Phone | [...] +--------+--------+ + + + + Encounter Details +--------+------+ + + + | Date | Type | Department | Care Team | Description | +--------+------+ + + + | 02/05/ | Lab | Laboratory at [facility] | | Synovial sarcoma | | 2018 | | 3rd Floor [address] | | ([facility]) | | | | [address] [place], | | | | | | [place] [address] | | | | | | [phone] | | | +--------+------+ + + + Social History + +-------+ [...] 2018 | | Oncology | [address] | | | | | | [place] [id number] | | +--------+ + + + + | 04/24/ | Office | Hematology & | Annie Gannon, | | | 2017 | Visit | Oncology | AGASHANAE,COMPUTER FORENSICS EXAMINER [address] | | | | | | [address] | | | | | | [place], [place] | | | | | | [address] | | | | | | [phone] | | | | | | | | +--------+ + + + + | 04/24/ | Hospital | Adult Acute Care | Savanna Mari, | | | 2017 | Encounter | | [address] | | | | | | [place], [place] | | | | | | [address] | | | | | | [phone] | | | | | | | [...] [address] | | | | | | [place], [place] | | | | | | [address] | | | | | | [phone] | | | | | | | | +--------+ + + + + as of this encounter Results ANTIBODY SCREEN (02/05/2018 4:03 PM) + + + + | Component | Value | Ref Range | + + + + | Antibody Screen | Negative | | + + + + + + + | Specimen | Performing Laboratory | + + + | Blood | [facility] [address] | | | [place] [address] | + + + ABO & RH TYPE (02/05/2018 4:03 PM) + + + + | Component | Value | Ref Range | + + + + | ABO Group | A | | + + + + | Rh Type | Positive | | + + + + + + + | Specimen | Performing Laboratory | + + + | Blood | [facility] [address] | | | [place] [address] | + + + CBC AND AUTO DIFF (02/05/2018 4:03 PM) + + + + | Component | Value | Ref Range | + + + + | WHITE CELL COUNT | 11.16 (H) | 3.50 - 10.80 K/cu mm | + + + + | RED CELL COUNT | 4.90 | 4.00 - 5.20 M/cu mm | + + + + | HEMOGLOBIN | 14.6 | 12.0 - 16.0 g/dL | + + + + | HEMATOCRIT | 43.0 | 36.0 - 46.0 % | + + + + | MCV | 87.8 | 80.0 - 100.0 fL | + + + + | MCHC | 34.0 | 32.0 - 36.0 g/dL | + + + + | RDW SD | 39.1 | 35.1 - 46.3 fL | + + + + | PLATELET COUNT | 392 | 150 - 400 K/cu mm | + + + + | MPV | 10.5 | 9.7 - 12.3 fL | + + + + | NRBC% | 0.0 | 0.0 - 0.3 % | + + + + | NRBC# | 0.00 | 0.00 - 0.02 K/cu mm | + + + + | NEUTROPHIL % | 49.1 (L) | 50.0 - 70.0 % | + + + + | LYMPHOCYTE % | 34.4 | 18.0 - 42.0 % | + + + + | MONOCYTE % | 12.3 (H) | 3.5 - 9.0 % | + + + + | EOS % | 2.7 | 1.0 - 3.0 % | + + + + | BASO % | 1.2 | 0.0 - 2.0 % | + + + + | IG% | 0.3Comment: Increased immature granulocytes | 0.0 - 1.0 % | | | (IG) define a left shift. Immature | | | | granulocytes (IG) are an automated count of | | | | metamyelocytes, myelocytes and | | | | promyelocytes. Bands are not included in | | | | the IG count. Bands are included in the | | | | neutrophil count. | | + + + + | NEUTROPHIL # | 5.49 | 1.80 - 7.70 K/cu mm | + + + + | LYMPHOCYTE # | 3.84 | 1.00 - 4.80 K/cu mm | + + + + | MONOCYTE # | 1.37 (H) | 0.10 - 0.90 K/cu mm | + + + + | EOS # | 0.30 | 0.00 - 0.50 K/cu mm | + + + + | BASO # | 0.13 (H) | 0.00 - 0.10 K/cu mm | + + + + | IG# | 0.03 | 0.00 - 0.10 K/cu mm | + + + + + + + | Specimen | Performing Laboratory | + + + | Blood | [facility] [address] | | | [place] [address] | + + + + + | Narrative | + + | Increased immature granulocytes (IG) define a left shift. Immature granulocytes | | (IG) are an automated count of metamyelocytes, myelocytes and promyelocytes. Bands are | | not included in the IG count. Bands are included in the neutrophil count. | + + TYPE AND SCREEN (02/05/2018 4:03 PM) + + + | Specimen | Performing Laboratory | + + + | Blood | | + + + + + | Narrative | + + | The following orders were created for panel order TYPE AND SCREEN. | | Procedure | | Abnormality Status | | --------- | | ------ ABO & RH | | TYPE[[id number]] F | | inal result ANTIBODY | | SCREEN[[id number]] Fin | | al result Please view results for these tests on the | | individual orders. | + + CBC, WITH DIFFERENTIAL (02/05/2018 4:03 PM) + + + | Specimen | Performing Laboratory | + + + | Blood | | + + + + + | Narrative | + + | The following orders were created for panel order CBC, WITH DIFFERENTIAL. | | Procedure | | Abnormality Status | | --------- | | ------ CBC AND AUTO | | DIFF[[id number]] Abnormal Final | | result Please view results for these tests on the | | individual orders. | + + BASIC METABOLIC SET (NA, K, CL, TCO2, BUN, CR, GLU, CA) (02/05/2018 4:03 PM) + +---------+ + | Component | Value | Ref Range | + +---------+ + | GLUCOSE, PLASMA | 74 | 70 - 99 mg/dL | | (LAB) | | | + +---------+ + | BUN, PLASMA (LAB) | 15 | 6 - 20 mg/dL | + +---------+ + | CREATININE PLASMA | 0.81 | 0.60 - 1.10 mg/dL | | (LAB) | | | + +---------+ + | EGFR - | >60 | >60 mL/min | | UGANDAN | | | + +---------+ + | EGFR NON | >60 | >60 mL/min | | -UGANDAN | | | + +---------+ + | SODIUM, PLASMA (LAB) | 135 (L) | 136 - 145 mmol/L | + +---------+ + | POTASSIUM, PLASMA | 3.4 | 3.4 - 5.0 mmol/L | | (LAB) | | | + +---------+ + | CHLORIDE, PLASMA | 100 | 97 - 108 mmol/L | | (LAB) | | | + +---------+ + | TOTAL CO2, PLASMA | 30 | 21 - 32 mmol/L | | (LAB) | | | + +---------+ + | CALCIUM, PLASMA | 9.1 | 8.6 - 10.2 mg/dL | | (LAB) | | | + +---------+ + | ANION GAP | 5 | 4 - 11 mmol/L | + +---------+ + | POTASSIUM CMNT | No Hemo | | + +---------+ + + + + | Specimen | Performing Laboratory | + + + | Blood | [facility] [address] | | | [place], [place] [address] | + + + + + | Narrative | + + | GFR is estimated using the MDRD equation recommended by the National Kidney Disease | | Education Program. Estimated GFR Interpretive Information: <60 mL/min/1.73 sq | | m Chronic Kidney Disease <15 mL/min/1.73 sq | | m Kidney Failure Estimated GFR greater that 60 mL/min/1.73 | | sq m is of limited clinical value. 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
--- OUTSIDE RECORDS SUMMARY | ~2018-04-16 | XMS | Encounter Summary ---
Demographics + + + | Address | [address] | | | [place] [address] | + + + | Home Phone | | + + + | Preferred Language | Unknown | + + + | Marital Status | Single | + + + | Scientologist Affiliation | CAT | + + + | Race | Unknown | + + + | Ethnic Group | Not or | + + + Author + + + | Author | [facility] | + + + | Organization | [facility] | + + + | Address | Unknown | + + + | Phone | Unavailable | + + + Support + + +---------+ + | Name | Relationship | Address | Phone | + + +---------+ + | ROSE BOWENS | ECON | Unknown | | + + +---------+ + Care Team Providers + +------+ + | Care Unleavened Dough Mixer Name | Role | Phone | + +------+ + | Santo Gooden MD | PCP | | + +------+ + Encounter Details +--------+ + + + + | Date | Type | Department | Care Team | Description | +--------+ + + + + | 03/31/ | Procedure | [facility] [address] | | | | 2017 | Pass | [address] | | | | | | [place] | | | | | | [place] [address] | | | | | | [phone] | | | +--------+ + + + [...] 2017 | | Oncology | [address] [facility] | | | | | | [place] [address] | | +--------+ + + + + | 04/24/ | Office | Hematology & | Annie Gannon, | | | 2017 | Visit | Oncology | ROME,BANK VAULT CUSTODIAN [address] | | | | | [address] | | | | | | [place], [place] | | | | | | [address] | | | | | | [phone] | | | | | | | | +--------+ + + + + | 04/24/ | Hospital | Adult Acute Care | Savanna Mari, | | | 2017 | Encounter | | [address] | | | | | | [place], [place] | | | | | | [address] | | | | | | [phone] | | | | | | | [...] [address] | | | | | | [facility], [place] | | | | | | [address] | | | | | | [phone] | | | | | | | | +--------+ + + + + as of this encounter Visit Diagnoses Not on filein this encounter"
--- OUTSIDE RECORDS SUMMARY | ~2018-04-16 | XMS | Encounter Summary ---
Demographics + + + | Address | [address] | | | [place] [address] | + + + | Home Phone [...] Team Providers + +------+ + | Care Trigonometry Teacher Name | Role | Phone | + +------+ + | Santo Gooden MD | PCP | | + +------+ + Encounter Details +--------+ + + + + | Date | Type | Department | Care Team | Description | +--------+ + + + + | 04/09/ | Pharmacy | [facility] | | | | 2018 | Visit | [facility] | | | | | | [address] | | | | | | [place], [place] | | | | | | [address] | | | | | | [phone] | | | +--------+ + + + [...] 04/24/ | Appointment | Hematology & | Nurse Hem Starter | | | 2017 | | Oncology | [address] [facility] | | | | | | [place] [address] | | +--------+ + + + + | 04/24/ | Office | Hematology & | Annie Gannon, | | | 2018 | Visit | Oncology | AGASHANAE,SLAB GRINDER [address] | | | | | [address] | | | | | | [place], [place] | | | | | | [address] | | | | | | [phone] | | | | | | | | +--------+ + + + + | 04/24/ | Hospital | Adult Acute Care | Savanna Mari, | | | 2017 | Encounter | | [address] | | | | | | [place], [place] | | | | | | [address] | | | | | | [phone] | | | | | | | [...] [address] | | | | | | [place], [place] | | | | | | [address] | | | | | | [phone] | | | | | | | | +--------+ + + + + as of this encounter Visit Diagnoses Not on filein this encounter"
--- OUTSIDE RECORDS SUMMARY | ~2018-04-16 | XMS | Encounter Summary ---
Demographics + + + | Address | [address] | | | [place] [address] | + + + | Home Phone [...] Author + + + | Author | [facility] | + + + | Organization | [facility] | + + + | Address | Unknown | + + + | Phone | Unavailable | + + + Support + + +---------+ + | Name | Relationship | Address | Phone | + + +---------+ + | ROSE BOWENS | ECON | Unknown | | + + +---------+ + Care Team Providers + +------+ + | Care Goods Layer Name | Role | Phone | + +------+ + | Santo Gooden MD | PCP | | + +------+ + Reason for Visit + + + | Reason | Comments | + + + | Incision AND | | | drainage | | + + + Encounter Details +--------+ + + + + | Date | Type | Department | Care Team | Description | +--------+ + + + + | 02/28/ | Telephone | Orthopaedics at | Lynda Basurto, | Incision AND | | 2018 | | [facility] [address] | [address] | [address] | | | | [address] Mailcode: CH[address] | [address] | | | | | [facility] | [place], [place] | | | | | and | [address] | | | | | Floor [place], [place] | [phone] | | | | | [address] | | | | | | [phone] | | | +--------+ + + + [...] & | Darwin Juan | | | 2017 | | Oncology | [address] | | | | | | [place] [address] | | +--------+ + + + + | 04/24/ | Office | Hematology & | Annie Gannon, | | | 2017 | Visit | Oncology | ROME,CROZER OPERATOR [address] | | | | | | [address] | | | | | | [place], [place] | | | | | | [address] | | | | | | [phone] | | | | | | | | +--------+ + + + + | 04/24/ | Hospital | Adult Acute Care | Savanna Mari, | | | 2017 | Encounter | | [address] | | | | | | [place], [place] | | | | | | [address] | | | | | | [phone] | | | | | | | [...] [address] | | | | | | [place] | | | | | | [address] | | | | | | [phone] | | | | | | | | +--------+ + + + + as of this encounter Visit Diagnoses Not on filein this encounter"
--- OUTSIDE RECORDS SUMMARY | ~2018-04-16 | XMS | Encounter Summary ---
Demographics + + + | Address | [address] | | | [place] [address] | + + + | Home Phone | | + + + | Preferred Language | Unknown | + + + | Marital Status | Single | + + + | Moravian Affiliation | CAT | + + + | Race | Unknown | + + + | Ethnic Group | Not or | + + + Author + + + | Author | [facility] | + + + | Organization | [facility] | + + + | Address | Unknown | + + + | Phone | Unavailable | + + + Support + + +---------+ + | Name | Relationship | Address | Phone | + + +---------+ + | ROSE BOWENS | ECON | Unknown | | + + +---------+ + Care Team Providers + +------+ + | Care Crab Steamer Name | Role | Phone | + +------+ + | Santo Gooden MD | PCP | | + +------+ + Reason for Visit + + + | Reason | Comments | + + + | Lab Draw | | + + + Encounter Details +--------+ + + + + | Date | Type | Department | Care Team | Description | +--------+ + + + + | 03/18/ | Telephone | Hematology/Medical | Sandra Patel MD | Lab Draw | | 2018 | | Oncology at [facility] | [address] | | | | | for [facility] | [place], [place] | | | | | [address] | [address] | | | | | Mailcode: CH7 | [phone] | | | | | [facility] | | | | | | and , | | | | | | [place], [place] | | | | | | [address] | | | | | | [phone] | | | +--------+ + + + [...] physical, mental, or emotional | No | 03/13/2018 | | condition, do you have serious difficulty | | | | doing errands alone such as visiting the | | | | doctor? | | | + + + + + + + + | Cognitive Status | Response | Date of Assessment | + + + + | Because of a physical, mental, or emotional | No | 03/13/2018 | | condition, do you have serious [...] | | Oncology | [address] | | | | | | [place] [address] | | +--------+ + + + + | 04/24/ | Office | Hematology & | Annie Gannon, | | | 2017 | Visit | Oncology | AGASHANAE,ANESTHESIOLOGIST AND CRITICAL CARE [address] | | | | | | [place], [place] | | | | | | [address] | | | | | | [phone] | | | | | | | | +--------+ + + + + | 04/24/ | Hospital | Adult Acute Care | Savanna Mari, | | | 2017 | Encounter | | MD [address] | | | | | | [place], [place] | | | | | | [address] | | | | | | [phone] | | | | | | | [...] [place] | | | | | | [facility] [place] | | | | | | [address] | | | | | | [phone] | | | | | | | | +--------+ + + + + as of this encounter Visit Diagnoses Not on filein this encounter"
--- OUTSIDE RECORDS SUMMARY | ~2018-04-16 | XMS | Encounter Summary ---
Demographics + + + | Address | [address] | | | [place] [address] | + + + | Home Phone | | + + + | Preferred Language | Unknown | + + + | Marital Status | Single | + + + | Sabianist Affiliation | CAT | + + + | Race | Unknown | + + + | Ethnic Group | Not or | + + + Author + + + | Author | [facility] | + + + | Organization | [facility] | + + + | Address | Unknown | + + + | Phone | Unavailable | + + + Support + + +---------+ + | Name | Relationship | Address | Phone | + + +---------+ + | ROSE BOWENS | ECON | Unknown | | + + +---------+ + Care Team Providers + +------+ + | Care Bucket Operator Name | Role | Phone | + +------+ + | Santo Gooden MD | PCP | | + +------+ + Encounter Details +--------+ + + + + | Date | Type | Department | Care Team | Description | +--------+ + + + + | 01/20/ | Lab | [facility] [address] | Lynda Basurto, | | | 2018 | Requisition | [address] | [address] | | | | | [address] [place], [place] | [address] | | | | | [address] | [place], [place] | | | | | | [address] | | | | | | [phone] | | | | | | | [...] 2018 | | Oncology | [address] [facility] | | | | | | [place] [address] | | +--------+ + + + + | 04/24/ | Office | Hematology & | Annie Gannon, | | | 2017 | Visit | Oncology | [facility] [address] | | [address] | | | | | | [place], [place] | | | | | | [address] | | | | | | [phone] | | | | | | | | +--------+ + + + + | 04/24/ | Hospital | Adult Acute Care | Savanna Mari, | | | 2017 | Encounter | | [address] | | | | | | [place], [place] | | | | | | [address] | | | | | | [phone] | | | | | | | [...] Scott | | | | | | [place], [place] | | | | | | [address] | | | | | | [phone] | | | | | | | | +--------+ + + + + as of this encounter Results HSR PROCESS ONLY (02/10/2018 10:45 AM) + + + | Specimen | Performing Laboratory | + + + | Slide-Block | [facility] [employer] [address] | | [address] [place] [address] | + + + in this encounter Visit Diagnoses + + | Diagnosis | + + | Encounter for other specified special examinations (CODE) | + +"
--- OUTSIDE RECORDS SUMMARY | ~2018-04-16 | XMS | Encounter Summary ---
Demographics + + + | Address | [address] | | | [place] [address] | + + + | Home Phone | | + + + | Preferred Language | Unknown | + + + | Marital Status | Single | + + + | Baptism Affiliation | CAT | + + + | Race | Unknown | + + + | Ethnic Group | Not or | + + + Author + + + | Author | [facility] | + + + | Organization | [facility] | + + + | Address | Unknown | + + + | Phone | Unavailable | + + + Support + + +---------+ + | Name | Relationship | Address | Phone | + + +---------+ + | ROSE BOWENS | ECON | Unknown | | + + +---------+ + Care Team Providers + +------+ + | Care Incident Response Analyst Name | Role | Phone | + +------+ + | Santo Gooden MD | PCP | | + +------+ + Reason for Visit + + + | Reason | Comments | + + + | Other | question about stitches | + + + | Removal of sutures | | + + + Encounter Details +--------+ + + + + | Date | Type | Department | Care Team | Description | +--------+ + + + + | 02/24/ | Telephone | Orthopaedics at | Lynda Basurto, | Other (question | | 2017 | | [facility] [address] | [address] | about stitches ); | | | | [place] Mailcode: [id number] | [address] | Removal of sutures | | | | [place] [facility] | [place], [place] | | | | | and [facility], | [address] | | | | | Floor [place], [place] | [phone] | | | | | [address] | | | | | | [phone] | | | +--------+ + + + [...] [address] | | | | | | [place], [place] [address] | | +--------+ + + + + | 04/24/ | Office | Hematology & | Annie Gannon, | | | 2017 | Visit | Oncology | ROME,SUEDING MACHINE TENDER [address] | | | | | [address] | | | | | | [place], [place] | | | | | | [address] | | | | | | [phone] | | | | | | | | +--------+ + + + + | 04/24/ | Hospital | Adult Acute Care | Savanna Mari, | | | 2017 | Encounter | | [address] | | | | | | [place], [place] | | | | | | [address] | | | | | | [phone] | | | | | | | [...] [address] | | | | | | [place] | | | | | | [address] | | | | | | [phone] | | | | | | | | +--------+ + + + + as of this encounter Visit Diagnoses Not on filein this encounter"
--- OUTSIDE RECORDS SUMMARY | ~2018-04-16 | XMS | Encounter Summary ---
Demographics + + + | Address | [address] | | | [place] [address] | + + + | Home Phone | | + + + | Preferred Language | Unknown | + + + | Marital Status | Single | + + + | Nondenominational Affiliation | CAT | + + + | Race | Unknown | + + + | Ethnic Group | Not or | + + + Author + + + | Author | [facility] | + + + | Organization | [facility] | + + + | Address | Unknown | + + + | Phone | Unavailable | + + + Support + + +---------+ + | Name | Relationship | Address | Phone | + + +---------+ + | ROSE BOWENS | ECON | Unknown | | + + +---------+ + Care Team Providers + +------+ + | Care Plumber Name | Role | Phone | + +------+ + | Santo Gooden MD | PCP | | + +------+ + Encounter Details +--------+ + + + + | Date | Type | Department | Care Team | Description | +--------+ + + + + | 03/27/ | Procedure | 6A Intra Op [facility] | | | | 2017 | Pass | [facility] | | | | | | Admitting Desk | | | | | | Located on the 9th | | | | | | floor [address] [facility] | | | | | | [facility] | | | | | | [place], [place] | | | | | | [address] | | | +--------+ + + + [...] | | Oncology | [address] [facility] | | | | | | [place] [address] | | +--------+ + + + + | 04/24/ | Office | Hematology & | Annie Gannon, | | | 2017 | Visit | Oncology | [facility] DR[facility] [address] | | | | | | [address] | | | | | | [place], [place] | | | | | | [address] | | | | | | [phone] | | | | | | | | +--------+ + + + + | 04/24/ | Hospital | Adult Acute Care | Savanna Mari, | | | 2017 | Encounter | | [address] | | | | | | [place], [place] | | | | | | [address] | | | | | | [phone] | | | | | | | [...] Scott | | | | | | [place], [place] | | | | | | [address] | | | | | | [phone] | | | | | | | | +--------+ + + + + as of this encounter Visit Diagnoses Not on filein this encounter"
--- OUTSIDE RECORDS SUMMARY | ~2018-04-16 | XMS | Clinical Summary ---
Demographics + + + | Address | [address] | | | [place] [address] | + + + | Home Phone | | + + + | Preferred Language | Unknown | + + + | Marital Status | Unknown | + + + | Orthodox Affiliation | Unknown | + + + | Race | Unknown | + + + | Ethnic Group | Unknown | + + + Author + + + | Author | [facility] | + + + | Organization | [facility] | + + + | Address | Unknown | + + + | Phone | Unavailable | + + + Support + + + + + | Name | Relationship | Address | Phone | + + + + + | Kika Fox | ECON | [address] [facility] | | | | | [place] [address] | | + + + + + Care Team Providers + +------+ + | Care Mortgage Manager Name | Role | Phone | + +------+ + | Santo Gooden MD | PP | | + +------+ + Allergies + + + + + + | Active Allergy | Reactions | Severity | Noted | Comments | | | | | Date | | + + + + + + | Meperidine | Hives | High | 01/11/20 | | | | | | 17 | | + + + + + + | Morphine | Hives | High | 01/11/20 | | | | | | 17 | | + + + + + + Current Medications + + +-------+---------+------+------+-------+ | Prescription | Sig. | Disp. | Refills | Star | End | Statu | | | | | | t | Date | s | | | | | | Date | | | + + +-------+---------+------+------+-------+ | sertraline | | | | 05/0 | | Activ | | (ZOLOFT) 100 MG | | | | 3/20 | | e | | tablet | | | | 17 | | | + + +-------+---------+------+------+-------+ | naproxen | | | | 05/0 | | Activ | | (NAPROSYN) 500 MG | | | | 3/20 | | e | | tablet | | | | 17 | | | + + +-------+---------+------+------+-------+ | | | | | 05/0 | | Activ | | hydrochlorothiazide | | | | 3/20 | | e | | (HYDRODIURIL) 25 MG | | | | 17 | | | | tablet | | | | | | | + + +-------+---------+------+------+-------+ | phentermine | | | | 05/0 | | Activ | | (ADIPEX-P) 37.5 MG | | | | 3/20 | | e | | tablet | | | | 17 | | | + + +-------+---------+------+------+-------+ | atenolol | Take 50 mg by mouth. | | | | | Activ | | (TENORMIN) 50 MG | | | | | | e | | tablet | | | | | | | + + +-------+---------+------+------+-------+ | | | | | 04/2 | | Activ | | HYDROcodone-acetamin | | | | 4/20 | | e | | ophen (NORCO) 10-325 | | | | 17 | | | | MG per tablet | | | | | | | + + +-------+---------+------+------+-------+ | diphenhydrAMINE | Take 50 mg by mouth | | | | | Activ | | (BENADRYL) 25 mg | nightly as needed | | | | | e | | capsule | for Sleep. | | | | | | + + +-------+---------+------+------+-------+ Active Problems + + + | Problem | Noted Date | + + + | Cervical radiculopathy at C6 | 01/10/2017 | + + + | Herniation of cervical intervertebral disc with radiculopathy | 01/10/2017 | + + + | Bilateral carpal tunnel syndrome | 01/10/2017 | + + + | Morbid obesity (HCC) | 01/10/2017 | + + + Family History + + +------+ + | Medical History | Relation | Name | Comments | + + +------+ + | Hypertension | Father | | | + + +------+ + | Diabetes | Maternal | | | | | Grandfath | | | | | er | | | + + +------+ + | Heart disease | Maternal | | | | | Grandfath | | | | | er | | | + + +------+ + | Cancer | Maternal | | | | | Grandmoth | | | | | er | | | + + +------+ + | Diabetes | Maternal | | | | | Grandmoth | | | | | er | | | + + +------+ + | Heart disease | Maternal | | | | | Grandmoth | | | | | er | | | + + +------+ + | Hypertension | Maternal | | | | | Grandmoth | | | | | er | | | + + +------+ + | Diabetes | Mother | | | + + +------+ + | Hypertension | Mother | | | + + +------+ + + +------+--------+ + | Relation | Name | Status | Comments | + +------+--------+ + | Father | | | | + +------+--------+ + | Maternal Grandfather | | | | + +------+--------+ + [...] | | | + +-------+ +--------+------+ + + +---------+ + | Alcohol Use | Drinks/We | oz/Week | Comments | | | ek | | | + + +---------+ + | Yes | | | | + + +---------+ + + + + | Sex Assigned at | Date Recorded | | | | + + + | Not on file | | + + + Last Filed Vital Signs + + + + | Vital Sign | Reading | Time Taken | + + + + | Blood Pressure | 127/87 | 01/10/2017 11:02 AM PDT | + + + + | Pulse | 75 | 01/10/2017 11:02 AM PDT | + + + + | Temperature | - | - | + + + + | Respiratory Rate | - | - | + + + + | Oxygen Saturation | 97% | 01/10/2017 11:02 AM PDT | + + + + | Inhaled Oxygen | - | - | | Concentration | | | + + + + | Weight | 157.4 kg (347 lb) | 01/10/2017 11:02 AM PDT | + + + + | Height | 172.7 cm (5' 8") | 01/10/2017 11:02 AM PDT | + + + + | Body Mass Index | 52.76 | 01/10/2017 11:02 AM PDT | + + + + Plan of Treatment + + + + + | Health Maintenance | Due Date | Last Done | Comments | + + + + + | Vaccine: | | | | | Dtap/Tdap/Td (1 - | 3 | | | | Tdap) | | | | + + + + + | Cervical Cancer | | | | | Screening (Pap) | 4 | | | + + + + + | Vaccine: Influenza | | | | | (#1) | 8 | | | + + + + + Results Not on filefrom Last 3 Months Insurance + +--------+ +------+-------+ + | Payer | Benefi | Subscriber | Type | Phone | Address | | | t Plan | ID | | | | | | / | | | | | | | Group | | | | | + +--------+ +------+-------+ + | PREMER[employer] | PREMER | [id number] | | | [address] [address] | | | A BLUE | | | | [place] | | | [place] | | | | [address] | | | FED | | | | | | | PPO | | | | | + +--------+ +------+-------+ + | [employer] | YELLOW | [id number] | | | | | PLANS | [place] | | | | | + +--------+ +------+-------+ + + +--------+ +--------+ + + | Guarantor Name | Accoun | Relation to | Date | Phone | Billing Address | | | t Type | Patient | of | | | | | | | | | | + +--------+ +--------+ + + | ANNIKA CAGE | Person | Self [birth year] | Home: | [address] | | | enrique/Lopez | | 1984 | [phone] | [place] [address] | | | emerita | | | 1895 | | + +--------+ +--------+ + +
--- OUTSIDE RECORDS SUMMARY | ~2018-04-16 | XMS | Encounter Summary ---
Demographics + + + | Address | [address] | | | [place] [address] | + + + | Home Phone | | + + + | Preferred Language | Unknown | + + + | Marital Status | Single | + + + | Temple Affiliation | CAT | + + + | Race | Unknown | + + + | Ethnic Group | Not or | + + + Author + + + | Author | [facility] | + + + | Organization | [facility] | + + + | Address | Unknown | + + + | Phone | Unavailable | + + + Support + + +---------+ + | Name | Relationship | Address | Phone | + + +---------+ + | ROSE BOWENS | ECON | Unknown | | + + +---------+ + Care Team Providers + +------+ + | Care Emergency Management System Director Name | Role | Phone | + +------+ + | Santo Gooden MD | PCP | | + +------+ + Reason for Referral PROC - Inpatient Surgery (Routine) + +--------+ + + + + | Status | Reason | Specialty | Diagnoses / | Referred By | Referred To | | | | | Procedures | Contact | Contact | + +--------+ + + + + | Authorized | | Orthopedics | Diagnoses | Doung, | Doung, | | | | | Infection | Lynda, | MD Lynda | | | | | of | [address] | [address] | | | | | amputation | [address] | [address] | | | | | stump, left | [address] | [address] | | | | | lower | [place], [place] | [place] | | | | | extremity | [address] | [address] | | | | | Unspecified | Phone: | Phone: | | | | | open wound, | [phone] | [phone] | | | | | left knee, | Fax: | Fax: | | | | | initial | [phone] | [phone] | | | | | encounter | | | | | | | Procedures | | | | | | | REQUEST TO | | | | | | | SURGERY | | | | | | | SILK SCREEN FRAME ASSEMBLER | | | | | | | ND CLEANSING | | | | | | | OF | | | | | | | TISSUE/MUSCL | | | | | | | E ND LADONNA | | | | | | | MUSC/FASCIA | | | | | | | ADD-ON ND | | | | | | | CLEANSING | | | | | | | TISSUE/MUSCL | | | | | | | E/BONE ND | | | | | | | LADONNA BONE | | | | | | | ADD-ON ND | | | | | | | RE-AMPUTATIO | | | | | | | N LOWER LEG | | | | | | | ND NEG | | | | | | | PRESS WOUND | | | | | | | TX, <= 50 CM | | | | | | | ND NEG | | | | | | | PRESS WOUND | | | | | | | TX, > 50 CM | | | | | | | ND NEG | | | | | | | PRESS WOUND | | | | | | | TX, =< 50 | | | | | | | SQCM ND NEG | | | | | | | PRESS WOUND | | | | | | | TX, > 50 | | | | | | | SQCM | | | + +--------+ + + + + Encounter Details +--------+ + + + + | Date | Type | Department | Care Team | Description | +--------+ + + + + | 03/24/ | Coding Director | Orthopaedics at | Lynda Basurto, | Amputation stump | | 2018 | | [facility] [address] | [address] | infection (HCC) | | | | Ave Mailcode: [id number] | [address] | (Primary Dx) | | | | [facility] | [place], [place] | | | | | and [facility], | [address] | | | | | [place], [place] | [phone] | | | | | [address] | | | | | | [phone] | | | +--------+ + + + [...] & | Darwin Juaner | | | 2018 | | Oncology | [address] [facility] | | | | | | [place] [address] | | +--------+ + + + + | 04/24/ | Office | Hematology & | Annie Gannon, | | | 2018 | Visit | Oncology | AGADEVYNP,HEALTH SOCIAL WORK PROFESSOR [address] | | | | | [address] | | | | | | [place], [place] | | | | | | [address] | | | | | | [phone] | | | | | | | | +--------+ + + + + | 04/24/ | Hospital | Adult Acute Care | Savanna Mari, | | | 2017 | Encounter | | [address] | | | | | | [place], [place] | | | | | | [address] | | | | | | [phone] | | | | | | | | +--------+ + + + + | 05/15/ | Appointment | Hematology & | | | | 2017 | | Oncology | | | +--------+ + + + + | 05/15/ | Office | Hematology & | Sandra Patel MD | | | 2017 | Visit | Oncology | [address] | | | | | | [place], [place] | | | | | | [address] | | | | | | [phone] | | | | | | | | +--------+ + + + + as of this encounter Visit Diagnoses + + | Diagnosis | + + | Amputation stump infection (HCC) - Primary | + + | Infection (chronic) of amputation stump | + +"
--- OUTSIDE RECORDS SUMMARY | ~2018-04-16 | XMS | Encounter Summary ---
Demographics + + + | Address | [address] | | | [place] [address] | + + + | Home Phone [...] Author + + + | Author | [facility] | + + + | Organization | [facility] | + + + | Address | Unknown | + + + | Phone | Unavailable | + + + Support + + +---------+ + | Name | Relationship | Address | Phone | + + +---------+ + | ROSE BOWENS | ECON | Unknown | | + + +---------+ + Care Team Providers + +------+ + | Care Sleep Technologist Name | Role | Phone | + [...] Request | | Radiology | Diagnoses | Sb, | | | | | | Malignant | Lynda, | | | | | | neoplasm of | [address] | | | | | | soft tissue | [address] | | | | | | of left | [address] | | | | | | lower | [place], [place] | | | | | | extremity | [address] | | | | | | (HCC) | Phone: | | | | | | Procedures | [phone] | | | | | | CT CHEST WO | Fax: | | | | | | CONTRAST | [phone] | | + +--------+ + + + + Diagnostic Testing (Routine) + +--------+ + + + + | Status | Reason | Specialty | Diagnoses / | Referred By | Referred To | | | | | Procedures | Contact | Contact | + +--------+ + + + + | New Request | | Radiology | Diagnoses | Doung, | | | | | | Malignant | Lynda, | | | | | | neoplasm of | MD [address] | | | | | | soft tissue | [address] | | | | | | of left | [address] | | | | | | lower | [place], [place] | | | | | | extremity | [address] | | | | | | (HCC) | Phone: | | | | | | Procedures | [phone] | | | | | | CT CHEST WO | Fax: | | | | | | CONTRAST | [phone] | | + +--------+ + + + + Reason for Visit Diagnostic Testing (Routine) + +--------+ + + + + | Status | Reason | Specialty | Diagnoses / | Referred By | Referred To | | | | | Procedures | Contact | Contact | + +--------+ + + + + | New Request | | Radiology | Diagnoses | Sb, | | | | | | Malignant | Lynda, | | | | | | neoplasm of | [address] | | | | | | soft tissue | [address] | | | | | | of left | [address] | | | | | | lower | [place], [place] | | | | | | extremity | [address] | | | | | | (HCC) | Phone: | | | | | | Procedures | [phone] | | | | | | CT CHEST WO | Fax: | | | | | | CONTRAST | [phone] | | + +--------+ + + + + Encounter Details +--------+ + + + + | Date | Type | Department | Care Team | Description | +--------+ + + + + | 01/22/ | Hospital | Radiology/Imaging | Sb GallegosAlexander, | | | 2018 | Encounter | Lab at [facility] [address] | [address] | | | | | [place] | [facility] | | | | | Mailcode: CH3G | [place], [place] | | | | | [facility] | [address] | | | | | and [facility] | [phone] | | | | | Floor [place], [place] | | | | | | [address] | | | | | | [phone] | | | +--------+ + + + [...] Medications at Time of Discharge + + +-------+---------+--------+ + | Medication | Sig. | Disp. | Refills | Start | End Date | | | | | | Date | | + + +-------+---------+--------+ + | citalopram 40 mg | Take 40 mg by mouth | | | | | | oral tablet | once daily. | | | | | + + +-------+---------+--------+ + as of this encounter Plan of Treatment +--------+ + + + + | Date | Type | Specialty | Care Team | Description | +--------+ + + + + | 04/24/ | Appointment | Hematology & | Nurse, Hem Starter | | | 2018 | | Oncology | [address] | | | | | | [place] [address] | | +--------+ + + + + | 04/24/ | Office | Hematology & | Annie Gannon, | | | 2018 | Visit | Oncology | [facility] [address] | | | | | [address] | | | | | | [place], [place] | | | | | | [address] | | | | | | [phone] | | | | | | | | +--------+ + + + + | 04/24/ | Hospital | Adult Acute Care | Savanna Mari, | | | 2018 | Encounter | | [address] | | | | | | [place], [place] | | | | | | [address] | | | | | | [phone] | | | | | | | [...] [place] | | | | | | [address] | | | | | | [phone] | | | | | | | | +--------+ + + + + as of this encounter Results CT CHEST WO CONTRAST (01/22/2018 5:57 PM) + + + | Specimen | Performing Laboratory | + + + | | [facility] RADIOLOGY VOICE RECOGNITION 2 | + + + + + | Narrative | + + | EXAM: CT CHEST WO CONTRAST HISTORY: soft tissue malignancy left foot. eval | | for mets. COMPARISON: None TECHNIQUE: Helical scanning was obtained of the chest | | without intravenous contrast and reviewed in soft tissue and lung algorithm. Coronal | | and sagittal images were also generated. FINDINGS: There is a sub-5 mm nodule | | in the left major fissure most consistent with an intrapulmonary lymph node. The lungs | | are otherwise clear. There is no pleural effusion or pneumothorax. The airways are | | clear. The visible thyroid is unremarkable. Aortic arch branching is conventional. | | Heart and great vessels sizes are normal. There is no pericardial effusion. There is no | | mediastinal adenopathy. Visible portions of the liver, gallbladder, spleen, | | pancreas, adrenals, kidneys, and bowel are unremarkable. The superficial soft | | tissues are unremarkable. 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 There is no acute | | fracture or suspicious osseous lesion. IMPRESSION: No evidence of thoracic | | metastatic disease. I have personally reviewed the images and, if necessary, edited | | the report. I agree with the report as now presented. Final signature: Mmoo Duke | | MD Shaji 01/23/2018 10:13 AM Preliminary: Mervin Lu MD | + + + + | Procedure Note | + + | Service Account, Radiant Res In Interface - 01/23/2018 10:14 AM PDT EXAM: CT CHEST WO | | CONTRAST HISTORY: soft tissue malignancy left foot. eval for mets. COMPARISON: None | | TECHNIQUE: Helical scanning was obtained of the chest without intravenous contrast and | | reviewed in soft tissue and lung algorithm. Coronal and sagittal images were also | | generated. FINDINGS: There is a sub-5 mm nodule in the left major fissure most | | consistent with an intrapulmonary lymph node. The lungs are otherwise clear. There is no | | pleural effusion or pneumothorax. The airways are clear. The visible thyroid is | | unremarkable. Aortic arch branching is conventional. Heart and great vessels sizes are | | normal. There is no pericardial effusion. There is no mediastinal adenopathy. Visible | | portions of the liver, gallbladder, spleen, pancreas, adrenals, kidneys, and bowel are | | unremarkable. The superficial soft tissues are unremarkable. The right fourth rib is | | distally bifid. There is no acute fracture or suspicious osseous lesion. IMPRESSION: No | | evidence of thoracic metastatic disease. I have personally reviewed the images and, if | | necessary, edited the report. I agree with the report as now presented. Final | | signature: Momo Girard MD 01/23/2018 10:13 AM Preliminary: Mervin Lu MD | | | | The superficial soft tissues are unremarkable. 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 The re is no acute fracture or suspicious osseous lesion. | | | |IMPRESSION: | | | | No evidence of thoracic metastatic disease. | | | |I have personally reviewed the images and, if necessary, edited the report. I agree with e report as now presented. 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
--- OUTSIDE RECORDS SUMMARY | ~2018-04-16 | XMS | Encounter Summary ---
Demographics + + + | Address | [address] | | | [place] [address] | + + + | Home Phone | | + + + | Preferred Language | Unknown | + + + | Marital Status | Single | + + + | Taoist Affiliation | CAT | + + + | Race | Unknown | + + + | Ethnic Group | Not or | + + + Author + + + | Author | [facility] | + + + | Organization | [facility] | + + + | Address | Unknown | + + + | Phone | Unavailable | + + + Support + + +---------+ + | Name | Relationship | Address | Phone | + + +---------+ + | ROSE BOWENS | ECON | Unknown | | + + +---------+ + Care Team Providers + +------+ + | Care Sales Marketing Name | Role | Phone | + +------+ + | Santo Gooden MD | PCP | | + +------+ + Encounter Details +--------+--------+ + + + | Date | Type | Department | Care Team | Description | +--------+--------+ + + + | 03/23/ | Intake | Transfer Center | | N/A | | 2018 | | [address] | | | | | | [place], | | | | | | [place] [address] | | | +--------+--------+ + + + [...] 2017 | | Oncology | [address] [facility] | | | | | | [place] [address] | | +--------+ + + + + | 04/24/ | Office | Hematology & | Annie Gannon, | | | 2017 | Visit | Oncology | R[place],BALING PRESS OPERATOR [address] | | | | | [address] | | | | | | [place], [place] | | | | | | [address] | | | | | | [phone] | | | | | | | | +--------+ + + + + | 04/24/ | Hospital | Adult Acute Care | Savanna Mari, | | | 2017 | Encounter | | [address] | | | | | | [place], [place] | | | | | | [address] | | | | | | [phone] | | | | | | | [...] [address] | | | | | | [place], [place] | | | | | | [address] | | | | | | [phone] | | | | | | | | +--------+ + + + + as of this encounter Visit Diagnoses Not on filein this encounter"
--- OUTSIDE RECORDS SUMMARY | ~2018-04-16 | XMS | Encounter Summary ---
Demographics + + + | Address | [address] | | | [place] [address] | + + + | Home Phone | | + + + | Preferred Language | Unknown | + + + | Marital Status | Single | + + + | Pentecostalism Affiliation | CAT | + + + | Race | Unknown | + + + | Ethnic Group | Not or | + + + Author + + + | Author | [facility] | + + + | Organization | [facility] | + + + | Address | Unknown | + + + | Phone | Unavailable | + + + Support + + +---------+ + | Name | Relationship | Address | Phone | + + +---------+ + | ROSE BOWENS | ECON | Unknown | | + + +---------+ + Care Team Providers + +------+ + | Care Store Group Manager Name | Role | Phone | [...] [phone] | | | | | | [address] | | | | | | [facility], | | | | | | [place] [address] | | | +--------+ + + + [...] Road | | | | | | [place] [address] | | +--------+ + + + + | 04/24/ | Office | Hematology & | Annie Gannon, | | | 2018 | Visit | Oncology | [facility] [address] | | | | | [address] | | | | | | [place], [place] | | | | | | [address] | | | | | | [phone] | | | | | | | | +--------+ + + + + | 04/24/ | Hospital | Adult Acute Care | Savanna Mari, | | | 2018 | Encounter | | MD [address] | | | | | | [place], [place] | | | | | | [address] | | | | | | [phone] | | | | | | | [...] [address] | | | | | | [place], [place] | | | | | | [address] | | | | | | [phone] | | | | | | | | +--------+ + + + + as of this encounter Visit Diagnoses Not on filein this encounter"
--- OUTSIDE RECORDS SUMMARY | ~2018-04-16 | XMS | Encounter Summary ---
Demographics + + + | Address | [address] | | | [place] [address] | + + + | Home Phone | | + + + | Preferred Language | Unknown | + + + | Marital Status | Single | + + + | Anglican Affiliation | CAT | + + + [...] Team Providers + +------+ + | Care Billing Specialist Name | Role | Phone | [...] Report | | 2018 | Encounter | [facility] [address] | [address] | | | | | [address] Mailcode: CH12A | [address] | | | | | [facility] | [place], [place] | | | | | and [facility], | [address] | | | | | Floor [place], [place] | [phone] | | | | | [address] | | | | | | [phone] | | | +--------+ + + + [...] 2017 | | Oncology | [address] | | | | | | [place] [address] | | +--------+ + + + + | 04/24/ | Office | Hematology & | Annie Gannon, | | | 2017 | Visit | Oncology | [facility]EVY[facility] [address] | | | | | | [address] | | | | | | [place], [place] | | | | | | [address] | | | | | | [phone] | | | | | | | | +--------+ + + + + | 04/24/ | Hospital | Adult Acute Care | Savanna Mari, | | | 2017 | Encounter | | MD [address] | | | | | | [facility] [place] | | | | | | [address] | | | | | | [phone] | | | | | | | | +--------+ + + + + | 05/15/ | Appointment | Hematology & | | | | 2017 | | Oncology | | | +--------+ + + + + | 05/15/ | Office | Hematology & | Sandra Patel MD | | | 2017 | Visit | Oncology | [address] | | | | | | [place], [place] | | | | | | [address] | | | | | | [phone] | | | | | | | | +--------+ + + + + as of this encounter Visit Diagnoses Not on filein this encounter"
--- OUTSIDE RECORDS SUMMARY | ~2018-04-16 | XMS | Clinical Summary ---
Demographics + + + | Address | [address] | | | [place] [address] | + + + | Home Phone | | + + + | Preferred Language | Unknown | + + + | Marital Status | Unknown | + + + | Tenriism Affiliation | Unknown | + + + | Race | Unknown | + + + | Ethnic Group | Unknown | + + + Author + + + | Author | [facility] | + + + | Organization | [facility] | + + + | Address | Unknown | + + + | Phone | Unavailable | + + + Support + + + + + | Name | Relationship | Address | Phone | + + + + + | Kika Fox | ECON | [address] [facility] [address] | | | | | [place] [address] | | + + + + + Care Team Providers + +------+ + | Care Tire Tester Name | Role | Phone | + [...] +------+-------+ + | [employer] | PREMER | [id number] | | | [address] [address] | | | [employer] BLUE | | | | [place] | | | [place]OSS | | | | [address] | | | FED | | | | | | | PPO | | | | | + +--------+ +------+-------+ + | [employer] | YELLOW | [id number] | | | | | PLANS | [...] | Self | [birth year] Home: | [address] | | | enrique/Lopez | | 1984 | [phone] | [place] [address] | | | emerita | | | [phone] | | + +--------+ +--------+ + +
--- OUTSIDE RECORDS SUMMARY | ~2018-04-16 | XMS | Encounter Summary ---
Demographics + + + | Address | [address] | | | [place] [address] | + + + | Home Phone [...] + + + | Author | [facility] | + + + | Organization | [facility] | + + + | Address | Unknown | + + + | Phone | Unavailable | + + + Support + + +---------+ + | Name | Relationship | Address | Phone | + + +---------+ + | ROSE CAGE | ECON | Unknown | | + + +---------+ + Care Team Providers + +------+ + | Care Territory Sales Manager Name | Role | Phone | + +------+ + | Santo Gooden MD | PCP | | + +------+ + Reason for Referral Consultation (Routine) +--------+--------+ + + + + | Status | Reason | Specialty | Diagnoses / | Referred By | Referred To | | | | | Procedures | Contact | Contact | +--------+--------+ + + + + | Closed | | Nutrition | Diagnoses | Jorge, | Torres | | | | | Synovial | Sandra Schmitt MD | NAKIA Carty | | | | | sarcoma | [address] | [address] | | | | | ([facility]) | Ave | [address] | | | | | Procedures | [facility] | Nakia | | | | | CONSULT TO | [address] | [facility] [place] | | | | | ADULT | Phone: | [phone] | | | | | MEDICAL | [phone] | Phone: | | | | | NUTRITIONAL | Fax: | [phone] | | | | | THERAPY | [phone] | Fax: | | | | | | | [phone] | +--------+--------+ + + + + Diagnostic Testing (Routine) +--------+--------+ + + + + | Status | Reason | Specialty | Diagnoses / | Referred By | Referred To | | | | | Procedures | Contact | Contact | +--------+--------+ + + + + | Closed | | Cardiology | Diagnoses | Jorge, | Car Echo | | | | | Synovial | Sandra Schmitt MD | [facility] [address] | | | | | sarcoma | [address] | [address] | | | | | (HCC) | Ave | Mailcode: | | | | | Procedures | [place], [place] | [address] | | | | | TRANSTHORACI | [address] | for Health | | | | | C | Phone: | and Healing | | | | | ECHOCARDIOGR | [phone] | [place], [place] | | | | | AM WITH | Fax: | [phone] | | | | | STRAIN - | [phone] | Phone: | | | | | CARDIO | | [phone] | | | | | MECHANICS, | | | | | | | ADULT GA | | | | | | | TTE W/DPPLR, | | | | | | | COMP ECHO | | | | | | | to be | | | | | | | done at: | | | | | | | [facility] | | | | | | | [facility] | | | | | | | [place] | | | +--------+--------+ + + + + Reason for Visit + + + | Reason | Comments | + + + | New Patient Visit | | + + + | Soft tissue sarcoma | | + + + Consultation (Urgent) + +--------+ + + + + | Status | Reason | Specialty | Diagnoses / | Referred By | Referred To | | | | | Procedures | Contact | Contact | + +--------+ + + + + | Authorized | | Hematology & | Diagnoses | Sb, | Sandra Patel | | | | Oncology | Malignant | Minerva Howell MD [address] | | | | | neoplasm of | MD [address] | | | | | soft tissue | [address] | [place], [place] | | | | | of left | [address] | [address] | | | | | lower | [place], [place] | Phone: | | | | | extremity | [address] | [phone] | | | | | (HCC) | Phone: | Fax: | | | | | Procedures | [phone] | [phone] | | | | | CONSULT TO | Fax: | | | | | | HEMATOLOGY / | [phone] | | | | | | ONCOLOGY | | | + +--------+ + + + + Encounter Details +--------+---------+ + + + | Date | Type | Department | Care Team | Description | +--------+---------+ + + + | 01/23/ | Office | Hematology/Medical | Sandra Patel MD | 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 | Oncology at Center | [address] | (HCC) (Primary Dx) | | | | for Health & Healing | [place], [place] | | | | | [address] | [address] | | | | | Mailcode: [id number] | [phone] | | | | | [facility] | | | | | | and [place], | | | | | | Floor [place], [place] | | | | | | [address] | | | | | | [phone] | | | +--------+---------+ + + + [...] + + + | Blood Pressure | 142/104 | 01/23/2018 12:28 PM PDT | + + + + | Pulse | 88 | 01/23/2018 12:28 PM PDT | + + + + | Temperature | 36.4 C (97.6 F) | 01/23/2018 12:28 PM PDT | + + + + | Respiratory Rate | 16 | 01/23/2018 12:28 PM PDT | + + + + | Oxygen Saturation | 99% | 01/23/2018 12:28 PM PDT | + + + + | Inhaled Oxygen | - | - | | Concentration | | | + + + + | Weight | 141 kg (310 lb 12.8 | 01/23/2018 12:28 PM PDT | | | oz) | | + + + + | Height | - | - | + + + + | Body Mass Index | 47.26 | 01/23/2018 12:28 PM PDT | + + + + in this encounter Progress Notes Sandra Patel MD - 01/23/2018 12:10 PM PDTFormatting of this note may be different from remedios lin. 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 She first noticed a lump in September 2017, which grew in size of the next few months. Initially treated conservatively. She sought re-evaluation in December when it became increasi ngly painful. A MRI showed a 8 cm mass in her medial midfoot concerning for malignancy. Dr Ricci morrissey obtained a biopsy on 01/15/18. Pathology consistent with synovial sarcoma, SYT FISH posi tive. Currently, she is in a lot of pain. Pain increased significantly post-biopsy. She got exhau sted using crutches so is using a wheelie. Taking ~1x/day vicodin. Accompanied by mother Rose and close friend/co-worker Odalys. ROS: Constitutional: negative Pain: +above Eyes: negative Ears/Nose/Mouth/Throat: negative Cardiovascular: negative Respiratory: negative Gastrointestinal: negative Genitourinary: negative Musculoskeletal: negative Skin: negative Neurological: negative Endocrine: negative Psychological: +anxiety/depressed mood Hematologic/Lymph: negative Sleep: negative All other systems were reviewed and are negative Past Medical History: Diagnosis Date Endometriosis History of ITP Synovial sarcoma (HCC) Past Surgical History Procedure Laterality Date Foot surgery Right 1997, 2001 Social History Social History Marital status: Single Spouse name: N/A Number of children: N/A Years of education: N/A Occupational History Not on file. Social History Main Topics Smoking status: Never Smoker Smokeless tobacco: Never Used Alcohol use No Drug use: No Sexual activity: Not on file Other Topics Concern Not on file Social History Narrative Works in [employer] at a [employer] near [place]. No kids. Lives with her mother Rose. Family History Problem Relation Cancer Maternal Grandmother pancreatic None Mother None Father MEDICATIONS: citalopram 40 mg oral tablet, Take 40 mg by mouth once daily. CLONAZEPAM ORAL, Take by mouth three times daily. fexofenadine HCl (ANDREW ORAL), Take by mouth once daily. hydroCHLOROthiazide 25 mg oral tablet, Take 25 mg by mouth once daily. HYDROcodone-acetaminophen 10-325 mg oral tablet, HYDROcodone-acetaminophen 5-325 mg oral tablet, naproxen 500 mg oral tablet, Take 500 mg by mouth two times daily. phentermine 37.5 mg oral capsule, Take 37.5 mg by mouth once daily. Administer before break fast. Allergies Allergen Reactions Demerol [Meperidine Hcl] Hives Morphine Hives PHYSICAL EXAM: BP 142/104[MD NOTIFIED[ | Pulse 88 | Temp (Src) 36.4 C (97.6 F) (Oral) | RR 16 | Wt 141 kg (310 lb 12.8 oz) | SpO2 99% | BMI 47.26 kg/(m^2) Constitutional - Pleasant overweight woman, tearful Eyes - Anicteric sclera, no drainage. ENT - Oropharynx moist, without exudates or lesions. Respiratory - Clear to auscultation bilaterally. Cardiac - Regular rate and rhythm without murmur. Abdomen/GI - Soft, nontender, nondistended. Skin - No bruising or rashes. Musculoskeletal - Extremities warm, well perfused. No edema. Neurologic - Awake, alert. graphic design intern grossly intact. Affect/Psych - Appropriate. Tearful. ECOG - 0 IMAGING: I independently reviewed the following imaging. 01/22/18 CT chest - No evidence of thoracic metastatic disease. No MRI reports in Epic. MRI from 12/26/2017 shows a nearly 9 cm mass along medial mid foot PATHOLOGY: Final pending Discussed in Sarcoma TB yesterday. FISH result today SYT positive in 98% cells, consistent with synovial sarcoma ASSESSMENT: Tati Cage is a 32 y.o. 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 I had an extensive discussion with the patient regarding the natural history of stage III s oft tissue sarcomas. We dicussed the primacy of wide surgical resection as the cornerstone o f therapy. However, large, deep, high-grade tumors such as these carry about a 50% risk of d istant relapse and . We discussed the conflicting and overall poor quality data regardi ng adjunctive chemotherapy in this setting. Despite these shortcomings, the patient meets th e characteristics (large, high-grade, deep tumor of the extremity) of the type of patient wh o may benefit most from dual-agent chemotherapy based on metaanalysis data. We discussed 2 cycles of preoperative epirubicin/ifosfamide plus an additional 2-3 cycles a fter surgery. Risks of treatment including but not limited to nausea, vomiting, alopecia, ca rdiac risk, infertility, myelosuppression, infection, increased risk of leukemia and w ere explained to the patient. She is a borderline candidate for limb-sparing surgery and is not a candidate if radiation used preoperatively. In addition, XRT to foot may carry excessive morbidity regardless. Ther efore will undergo attempt at limb-sparing surgery. Patient aware of potential risk for BKA. RECOMMENDATIONS: Baseline labs & echo Dual lumen SmartPort Treatment plan: Epirubicin 30 mg/m2 daily x4 days Ifosfamide 2.5 mg/m2 daily x4 days Neulasta q21d Repeat CT chest and MRI after 2 cycles for pre-op planning. Likely resume chemo ~3 weeks post-op Fertility. Patient reports infertility at baseline (tried for 8 years), thus no preservatio n strategy indicated. Currently Mirena for endometriosis. Nutrition. Patient with ~50 lb intentional weight loss over the past year. Counseled that g oal during cancer treatment is weight stability. She requests involvement of dieticians, i ch I support. Also advised to insure increased physical activity despite limitations. Sandra Patel MD [facility] & Pediatric Hematology/Oncology [facility] in this encounter Plan of Treatment +--------+ + + + + | Date | Type | Specialty | Care Team | Description | +--------+ + + + + | 04/24/ | Appointment | Hematology & | NurseDarwin Starter | | | 2018 | | Oncology | [address] [facility] | | | | | | [place] [address] | | +--------+ + + + + | 04/24/ | Office | Hematology & | Annie Gannon, | | | 2017 | Visit | Oncology | [facility],COMMERCIAL CONSTRUCTION SUPERINTENDENT [address] | | | | | | [facility] | | | | | | [place], [place] | | | | | | [address] | | | | | | [phone] | | | | | | | | +--------+ + + + + | 04/24/ | Hospital | Adult Acute Care | Savanna Mari, | | | 2017 | Encounter | | MD [address] | | | | | | [place], [place] | | | | | | [address] | | | | | | [phone] | | | | | | | [...] [address] | | | | | | [place], [place] | | | | | | [address] | | | | | | [phone] | | | | | | | | +--------+ + + + + + +--------+ + + | Name | Priori | Associated Diagnoses | Order Schedule | | | ty | | | + +--------+ + + | TRANSTHORACIC ECHOCARDIOGRAM WITH | Routin | Synovial sarcoma | Ordered: 01/23/2018 | | STRAIN - CARDIO MECHANICS, ADULT | e | (HCC) | | + +--------+ + + as of this encounter Results INR (01/23/2018 2:48 PM) + +-------+ + | Component | Value | Ref Range | + +-------+ + | INR | 1.03 | 0.90 - 1.20 INR | + +-------+ + + + + | Specimen | Performing Laboratory | + + + | Blood | [facility] [address] [facility] | | | [place] [address] | + + + + + | Narrative | + + | INR Therapeutic ranges for full anticoagulation: INR for Venous | | Thromboembolism (2.0 - 3.0) INR INR for most patients with | | mech. valves (2.5 - 3.5) INR | + + [facility] - COMPLETE METABOLIC SET (01/23/2018 2:48 PM) + +---------+ + | Component | Value | Ref Range | + +---------+ + | GLUCOSE, PLASMA | 94 | 70 - 99 mg/dL | | (LAB) | | | + +---------+ + | BUN, PLASMA (LAB) | 18 | 6 - 20 mg/dL | + +---------+ + | CREATININE PLASMA | 0.90 | 0.60 - 1.10 mg/dL | | (LAB) | | | + +---------+ + | SODIUM, PLASMA (LAB) | 139 | 134 - 143 mmol/L | + +---------+ + | POTASSIUM, PLASMA | 3.3 (L) | 3.4 - 5.0 mmol/L | | (LAB) | | | + +---------+ + | CHLORIDE, PLASMA | 102 | 97 - 108 mmol/L | | (LAB) | | | + +---------+ + | TOTAL CO2, PLASMA | 29 | 22 - 29 mmol/L | | (LAB) | | | + +---------+ + | CALCIUM, PLASMA | 9.7 | 8.6 - 10.2 mg/dL | | (LAB) | | | + +---------+ + | BILIRUBIN TOTAL | 0.7 | 0.3 - 1.2 mg/dL | + +---------+ + | TOTAL PROTEIN, | 8.2 (H) | 6.1 - 7.9 g/dL | | PLASMA (LAB) | | | + +---------+ + | ALBUMIN, PLASMA | 4.0 | 3.5 - 4.7 g/dL | | (LAB) | | | + +---------+ + | ALK PHOS | 68 | 33 - 76 U/L | + +---------+ + | AST(SGOT) | 34 | <=41 U/L | + +---------+ + | ALT (SGPT) | 36 | <=60 U/L | + +---------+ + | ANION GAP | | 4 - 11 mmol/L | + +---------+ + | ANION GAP(ALB | | 4 - 11 mmol/L | | CORRECTED) | | | + +---------+ + + + + | Specimen | Performing Laboratory | + + + | Blood | [facility] [address] | | | [address] [place], [place] [address] | + + + [facility] - CBC W DIFFERENTIAL (01/23/2018 2:48 PM) + + + | Specimen | Performing Laboratory | + + + | Blood | | + + + + + | Narrative | + + | The following orders were created for panel order [facility] - CBC W DIFFERENTIAL. | | Procedure | | Abnormality Status | | --------- | | ------ CBC AND AUTO | | DIFF[[id number]] Abnormal Final | | result Please view results for these tests on the | | individual orders. 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
--- OUTSIDE RECORDS SUMMARY | ~2018-04-16 | XMS | Encounter Summary ---
Demographics + + + | Address | [address] | | | [place] [address] | + + + | Home Phone [...] Author + + + | Author | [facility] | + + + | Organization | [facility] | + + + | Address | Unknown | + + + | Phone | Unavailable | + + + Support + + +---------+ + | Name | Relationship | Address | Phone | + + +---------+ + | ROSE BOWENS | ECON | Unknown | | + + +---------+ + Care Team Providers + +------+ + | Care Gate Manager Name | Role | Phone | + +------+ + | Santo Gooden MD | PCP | | + +------+ + Encounter Details +--------+ + + + + | Date | Type | Department | Care Team | Description | +--------+ + + + + | 02/06/ | Procedure | 6A Intra Op [facility] | | | | 2017 | Pass | [facility] | | | | | | Admitting Desk | | | | | | Located on the 9th | | | | | | floor [address] [facility] | | | | | | [facility] | | | | | | [place], [place] | | | | | | [address] | | | +--------+ + + + [...] | Darwin Juan Starter | | | 2018 | | Oncology | [address] [facility] | | | | | | [place] [address] | | +--------+ + + + + | 04/24/ | Office | Hematology & | Annie Gannon, | | | 2018 | Visit | Oncology | [facility] [address] | | | [address] | | | | | | [place], [place] | | | | | | [address] | | | | | | [phone] | | | | | | | | +--------+ + + + + | 04/24/ | Hospital | Adult Acute Care | Savanna Mari, | | | 2017 | Encounter | | [address] | | | | | | [place], [place] | | | | | | [address] | | | | | | [phone] | | | | | | | | +--------+ + + + + | 05/15/ | Appointment | Hematology & | | | | 2017 | | Oncology | | | +--------+ + + + + | 05/15/ | Office | Hematology & | Sandra Patel MD | | | 2017 | Visit | Oncology | [address] | | | | | | [place], [place] | | | | | | [address] | | | | | | [phone] | | | | | | | | +--------+ + + + + as of this encounter Visit Diagnoses Not on filein this encounter"
--- OUTSIDE RECORDS SUMMARY | ~2018-04-16 | XMS | Encounter Summary ---
Demographics + + + | Address | [address] | | | [place] [address] | + + + | Home Phone [...] Team Providers + +------+ + | Care Waterproof Bag Sewer Name | Role | Phone | + +------+ + | Santo Gooden MD | PCP | | + +------+ + Reason for Visit +--------+ + | Reason | Comments | +--------+ + | Fever | | +--------+ + Encounter Details +--------+ + + + + | Date | Type | Department | Care Team | Description | +--------+ + + + + | 03/22/ | Telephone | Center for | Jakub More MD | Fever | | 2018 | | Hematologic | [address] | | | | | Malignancies at | [facility], | | | | | [facility] | [place] [address] | | | | | [address] | [phone] | | | | | [address] | | | | | | Mailcode: [id number] | | | | | | [place] | | | | | | [place], [place] | | | | | | [address] | | | | | | [phone] | | | +--------+ + + + [...] Jackman | | | | | | [place], [place] [facility] | | +--------+ + + + + | 04/24/ | Office | Hematology & | Annie Gannon, | | | 2017 | Visit | Oncology | [place],WATER SOFTENER SERVICER [address] | | | | | [address] | | | | | | [place], [place] | | | | | | [address] | | | | | | [phone] | | | | | | | | +--------+ + + + + | 04/24/ | Hospital | Adult Acute Care | Savanna Mari, | | | 2017 | Encounter | | MD [address] | | | | | | [place], [place] | | | | | | [address] | | | | | | [phone] | | | | | | | [...] [address] | | | | | | [place], [place] | | | | | | [address] | | | | | | [phone] | | | | | | | | +--------+ + + + + as of this encounter Visit Diagnoses Not on filein this encounter"
--- OUTSIDE RECORDS SUMMARY | ~2018-04-16 | XMS | Encounter Summary ---
Demographics + + + | Address | [address] | | | [place] [address] | + + + | Home Phone [...] Author + + + | Author | [facility] | + + + | Organization | [facility] | + + + | Address | Unknown | + + + | Phone | Unavailable | + + + Support + + +---------+ + | Name | Relationship | Address | Phone | + + +---------+ + | ROSE BOWENS | ECON | Unknown | | + + +---------+ + Care Team Providers + +------+ + | Care Bullard Operator Name | Role | Phone | [...] Other (question | | 2017 | | [facility] [address] | [address] | about stitches ); | | | | [place] Mailcode: [id number] | [address] | Removal of sutures | | | | [place] [facility] | [place], [place] | | | | | and [facility], | [address] | | | | | Floor [place], [place] | [phone] | | | | | [address] | | | | | | [phone] | | | +--------+ + + + [...] Jackman | | | | | | [place], [place] [address] | | +--------+ + + + + | 04/24/ | Office | Hematology & | Annie Gannon, | | | 2017 | Visit | Oncology | [facility],ELECTRICIAN CONTROL EQUIPMENT [address] | | | | | [address] | | | | | | [place], [place] | | | | | | [address] | | | | | | [phone] | | | | | | | | +--------+ + + + + | 04/24/ | Hospital | Adult Acute Care | Savanna Mari, | | | 2017 | Encounter | | [address] | | | | | | [place], [place] | | | | | | [address] | | | | | | [phone] | | | | | | | [...] [address] | | | | | | [place] | | | | | | [address] | | | | | | [phone] | | | | | | | | +--------+ + + + + as of this encounter Visit Diagnoses Not on filein this encounter"
--- OUTSIDE RECORDS SUMMARY | ~2018-04-16 | XMS | Encounter Summary ---
Demographics + + + | Address | [address] | | | [place] [address] | + + + | Home Phone | | + + + | Preferred Language | Unknown | + + + | Marital Status | Single | + + + | Confucianist Affiliation | CAT | + + + | Race | Unknown | + + + | Ethnic Group | Not or | + + + Author + + + | Author | [facility] | + + + | Organization | [facility] | + + + | Address | Unknown | + + + | Phone | Unavailable | + + + Support + + +---------+ + | Name | Relationship | Address | Phone | + + +---------+ + | ROSE BOWENS | ECON | Unknown | | + + +---------+ + Care Team Providers + +------+ + | Care Ballistics Expert Name | Role | Phone | + +------+ + | Santo Gooden MD | PCP | | + +------+ + Reason for Visit + + + | Reason | Comments | + + + | Treatment Planning | | + + + Encounter Details +--------+ + + + + | Date | Type | Department | Care Team | Description | +--------+ + + + + | 02/12/ | Telephone | Hematology/Medical | Sandra Patel MD | Treatment Planning | | 2018 | | Oncology at [place] | [address] | | | | | for Health & Healing | [place], [place] | | | | | [address] | [address] | | | | | Mailcode: [facility] | [phone] | | | | | [facility] | | | | | | and Healing, 7th | | | | | | Floor [place], [place] | | | | | | [address] | | | | | | [phone] | | | +--------+ + + + [...] Jackman | | | | | | [place] [address] | | +--------+ + + + + | 04/24/ | Office | Hematology & | Annie Gannon, | | | 2017 | Visit | Oncology | [place],RENAL CASE MANAGER [address] | | | | | | [address] | | | | | | [place], [place] | | | | | | [address] | | | | | | [phone] | | | | | | | | +--------+ + + + + | 04/24/ | Hospital | Adult Acute Care | Savanna Mari, | | | 2018 | Encounter | | [address] | | | | | | [place], [place] | | | | | | [address] | | | | | | [phone] | | | | | | | [...] [address] | | | | | | [place] | | | | | | [address] | | | | | | [phone] | | | | | | | | +--------+ + + + + as of this encounter Visit Diagnoses Not on filein this encounter"
--- OUTSIDE RECORDS SUMMARY | ~2018-04-16 | XMS | Encounter Summary ---
Demographics + + + | Address | [address] | | | [place] [address] | + + + | Home Phone | | + + + | Preferred Language | Unknown | + + + | Marital Status | Single | + + + | Restoration Affiliation | CAT | + + + | Race | Unknown | + + + | Ethnic Group | Not or | + + + Author + + + | Author | [facility] | + + + | Organization | [facility] | + + + | Address | Unknown | + + + | Phone | Unavailable | + + + Support + + +---------+ + | Name | Relationship | Address | Phone | + + +---------+ + | ROSE CAGE | ECON | Unknown | | + + +---------+ + Care Team Providers + +------+ + | Care Pilot Control Operator Helper Name | Role | Phone | + [...] | 2018 | Visit | Oncology at [place] | [address] | ([facility]) (Primary Dx) | | | | for Health & Healing | [place], [place] | | | | | [address] | [address] | | | | | Mailcode: CH7N | [phone] | | | | | [facility] | | | | | | and [facility], | | | | | | [place], [place] | | | | | | [address] | | | | | | [phone] | | | +--------+---------+ + + + [...] Name: Tati Cage : 1985 Home Town: [place], [place] Referring Physician: Sb Diagnosis: high risk [...] perfused. No edema. Neurologic - Awake, alert. glaze maker grossly intact. Affect/Psych - Appropriate. ECOG - [...] outweighs risk. Wesley pineda. Sandra Patel MD Superintendent Mechanical Medical Oncology & Pediatric Hematology/Oncology [facility] [place] [facility] in this encounter Plan of Treatment +--------+ + + + + | Date | Type | Specialty | Care Team | Description | +--------+ + + + + | 04/24/ | Appointment | Hematology & | NurseDarwin Starter | | | 2018 | | Oncology | [address] [facility] | | | | | | [place] [address] | | +--------+ + + + + | 04/24/ | Office | Hematology & | Annie Gannon, | | | 2017 | Visit | Oncology | AGAP,SUPERVISOR ELECTRIC [address] | | | | | [address] | | | | | | [place], [place] | | | | | | [address] | | | | | | [phone] | | | | | | | | +--------+ + + + + | 04/24/ | Hospital | Adult Acute Care | Savanna Mari, | | | 2017 | Encounter | | [address] | | | | | | [place], [place] | | | | | | [address] | | | | | | [phone] | | | | | | | [...] Scott | | | | | | [facility] [place] | | | | | | [address] | | | | | | [phone] | | | | | | | | +--------+ + + + + as of this encounter Visit Diagnoses + + | Diagnosis | + + | Synovial sarcoma (HCC) - Primary | + + | 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
--- OUTSIDE RECORDS SUMMARY | ~2018-04-16 | XMS | Encounter Summary ---
Demographics + + + | Address | [address] | | | [place] [address] | + + + | Home Phone [...] + + + | Author | [facility] | + + + | Organization | [facility] | + + + | Address | Unknown | + + + | Phone | Unavailable | + + + Support + + +---------+ + | Name | Relationship | Address | Phone | + + +---------+ + | ROSE BOWENS | ECON | Unknown | | + + +---------+ + Care Team Providers + +------+ + | Care Resident Doctor Name | Role | Phone | + +------+ + | Santo Gooden MD | PCP | | + +------+ + Encounter Details +--------+ + + + + | Date | Type | Department | Care Team | Description | +--------+ + + + + | 02/06/ | Pharmacy | [facility] | | | | 2018 | Visit | & Healing Pharmacy | | | | | | [address] | | | | | | [place], [place] | | | | | | [address] | | | | | | [phone] | | | +--------+ + + + [...] 2018 | | Oncology | [address] [facility] | | | | | | [place] [address] | | +--------+ + + + + | 04/24/ | Office | Hematology & | Annie Gannon, | | | 2018 | Visit | Oncology | [facility] [address] | | | | | [address] | | | | | | [place], [place] | | | | | | [address] | | | | | | [phone] | | | | | | | | +--------+ + + + + | 04/24/ | Hospital | Adult Acute Care | Savanna Mari, | | | 2017 | Encounter | | [address] | | | | | | [place], [place] | | | | | | [address] | | | | | | [phone] | | | | | | | [...] Scott | | | | | | [place], [place] | | | | | | [address] | | | | | | [phone] | | | | | | | | +--------+ + + + + as of this encounter Visit Diagnoses Not on filein this encounter"
--- OUTSIDE RECORDS SUMMARY | ~2018-04-16 | XMS | Encounter Summary ---
Demographics + + + | Address | [address] | | | [place] [address] | + + + | Home Phone [...] Author + + + | Author | [facility] | + + + | Organization | [facility] | + + + | Address | Unknown | + + + | Phone | Unavailable | + + + Support + + +---------+ + | Name | Relationship | Address | Phone | + + +---------+ + | ROSE BOWENS | ECON | Unknown | | + + +---------+ + Care Team Providers + +------+ + | Care Network Support Specialist Name | Role | Phone | + +------+ + | Santo Gooden MD | PCP | | + +------+ + Encounter Details +--------+ + + + + | Date | Type | Department | Care Team | Description | +--------+ + + + + | 02/04/ | MyChart | Orthopaedics at | Lynda Basurto, | RE: Biopsy site | | 2018 | Encounter | [facility] [address] | [address] [facility] | [address] | | | | [address] Mailcode: CH12A | [facility] | | | | | [facility] | [place], [place] | | | | | and | [address] | | | | | Floor [place], [place] | [phone] | | | | | [address] | | | | | | [phone] | | | +--------+ + + + [...] | | Oncology | [address] [facility] | | | | | | [place] [address] | | +--------+ + + + + | 04/24/ | Office | Hematology & | Annie Gannon, | | | 2017 | Visit | Oncology | [facility]PATTERNMAKER HELPER [address] | | | | | | [address] | | | | | | [place], [place] | | | | | | [address] | | | | | | [phone] | | | | | | | | +--------+ + + + + | 04/24/ | Hospital | Adult Acute Care | Savanna Mari, | | | 2017 | Encounter | | [address] | | | | | | [place], [place] | | | | | | [address] | | | | | | [phone] | | | | | | | [...] Scott | | | | | | [place], [place] | | | | | | [address] | | | | | | [phone] | | | | | | | | +--------+ + + + + as of this encounter Visit Diagnoses Not on filein this encounter"
--- OUTSIDE RECORDS SUMMARY | ~2018-04-16 | XMS | Encounter Summary ---
Demographics + + + | Address | [address] | | | [place] [address] | + + + | Home Phone | | + + + | Preferred Language | Unknown | + + + | Marital Status | Single | + + + | Mormon Affiliation | CAT | + + + | Race | Unknown | + + + | Ethnic Group | Not or | + + + Author + + + | Author | [facility] | + + + | Organization | [facility] | + + + | Address | Unknown | + + + | Phone | Unavailable | + + + Support + + +---------+ + | Name | Relationship | Address | Phone | + + +---------+ + | ROSE BOWENS | ECON | Unknown | | + + +---------+ + Care Team Providers + +------+ + | Care Geographic Area Intelligence Officer Name | Role | Phone | [...] | +--------+ + + + + | 02/13/ | Telephone | Hematology/Medical | Work, Social | Social Work Notes | | 2017 | | Oncology at [place] | | | | | | for Health & Healing | | | | | | [address] | | | | | | Mailcode: CH7M | | | | | | [facility] | | | | | | and Healing, 7th | | | | | | Floor [place], [place] | | | | | | [address] | | | | | | [phone] | | | +--------+ + + + [...] [address] | | | | | | [place] [address] | | +--------+ + + + + | 04/24/ | Office | Hematology & | Annie Gannon, | | | 2017 | Visit | Oncology | AGACNP,RETAIL SERVICE SPECIALIST [address] | [address] | | [address] | | | | | | [place], [place] | | | | | | [address] | | | | | | [phone] | | | | | | | | +--------+ + + + + | 04/24/ | Hospital | Adult Acute Care | Savanna Mari, | | | 2017 | Encounter | | MD [address] | | | | | | [place], [place] | | | | | | [address] | | | | | | [phone] | | | | | | | [...] [place] | | | | | | [address] | | | | | | [phone] | | | | | | | | +--------+ + + + + as of this encounter Visit Diagnoses Not on filein this encounter"
--- OUTSIDE RECORDS SUMMARY | ~2018-04-16 | XMS | Encounter Summary ---
Demographics + + + | Address | [address] | | | [place] [address] | + + + | Home Phone | | + + + | Preferred Language | Unknown | + + + | Marital Status | Single | + + + | Shinto Affiliation | CAT | + + + | Race | Unknown | + + + | Ethnic Group | Not or | + + + Author + + + | Author | [facility] | + + + | Organization | [facility] | + + + | Address | Unknown | + + + | Phone | Unavailable | + + + Support + + +---------+ + | Name | Relationship | Address | Phone | + + +---------+ + | ROSE BOWENS | ECON | Unknown | | + + +---------+ + Care Team Providers + +------+ + | Care Housing Assistant Name | Role | Phone | + [...] | | 2017 | | Oncology at [place] | | | | | | for Health & Healing | | | | | | [address] | | | | | | Mailcode: CH7M | | | | | | [facility] | | | | | | and Healing, 7th | | | | | | Floor [place], [place] | | | | | | [address] | | | | | | [phone] | | | +--------+ + + + [...] Road | | | | | | [place] [address] | | +--------+ + + + + | 04/24/ | Office | Hematology & | Annie Gannon, | | | 2017 | Visit | Oncology | ROME,PRODUCTION TEAM LEADER [address] | | | | | [address] | | | | | | [place], [place] | | | | | | [address] | | | | | | [phone] | | | | | | | | +--------+ + + + + | 04/24/ | Hospital | Adult Acute Care | Savanna Mari, | | | 2017 | Encounter | | [address] | | | | | | [place], [place] | | | | | | [address] | | | | | | [phone] | | | | | | | [...] Scott | | | | | | [place], [place] | | | | | | [address] | | | | | | [phone] | | | | | | | | +--------+ + + + + as of this encounter Visit Diagnoses Not on filein this encounter"
--- OUTSIDE RECORDS SUMMARY | ~2018-04-16 | XMS | Encounter Summary ---
Demographics + + + | Address | [address] | | | [place] [address] | + + + | Home Phone [...] Author + + + | Author | [facility] | + + + | Organization | [facility] | + + + | Address | Unknown | + + + | Phone | Unavailable | + + + Support + + +---------+ + | Name | Relationship | Address | Phone | + + +---------+ + | ROSE BOWENS | ECON | Unknown | | + + +---------+ + Care Team Providers + +------+ + | Care Email Deployment Specialist Name | Role | Phone | + +------+ + | Santo Gooden MD | PCP | | + +------+ + Reason for Visit + + + | Reason | Comments | + + + | Laboratory Test | | | Results Abnormal | | + + + Encounter Details +--------+ + + + + | Date | Type | Department | Care Team | Description | +--------+ + + + + | 02/28/ | Telephone | Hematology/Medical | Sandra Patel MD | Laboratory Test | | 2018 | | Oncology at [place] | [address] | Results Abnormal | | | | for Health & Healing | [place], [place] | | | | | [address] | [address] | | | | | Mailcode: [facility] | [phone] | | | | | [facility] | | | | | | and Healing, 7th | | | | | | Floor [facility] [place] | | | | | | [address] | | | | | | [phone] | | | +--------+ + + + [...] [address] | | | | | | [place] [address] | | +--------+ + + + + | 04/24/ | Office | Hematology & | Annie Gannon, | | | 2017 | Visit | Oncology | ROME,TRANSONIC ENGINEER [address] | | | | | [address] | | | | | | [place], [place] | | | | | | [address] | | | | | | [phone] | | | | | | | | +--------+ + + + + | 04/24/ | Hospital | Adult Acute Care | Savanna Mari, | | | 2017 | Encounter | | [address] | | | | | | [place], [place] | | | | | | [address] | | | | | | [phone] | | | | | | | | +--------+ + + + + | 05/15/ | Appointment | Hematology & | | | | 2018 | | Oncology | | | +--------+ + + + + | 05/15/ | Office | Hematology & | Sandra Patel MD | | | 2018 | Visit | Oncology | [address] | | | | | | [place], [place] | | | | | | [address] | | | | | | [phone] | | | | | | | | +--------+ + + + + as of this encounter Visit Diagnoses + + | Diagnosis | + + | Synovial sarcoma (HCC) - Primary | + + | 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
--- OUTSIDE RECORDS SUMMARY | ~2018-04-16 | XMS | Encounter Summary ---
Demographics + + + | Address | [address] | | | [place] [address] | + + + | Home Phone [...] Author + + + | Author | [facility] | + + + | Organization | [facility] | + + + | Address | Unknown | + + + | Phone | Unavailable | + + + Support + + +---------+ + | Name | Relationship | Address | Phone | + + +---------+ + | ROSE BOWENS | ECON | Unknown | | + + +---------+ + Care Team Providers + +------+ + | Care Violin Maker Hand Name | Role | Phone | + [...] | | 2017 | | Oncology at [place] | | | | | | for Health & Healing | | | | | | [address] | | | | | | Mailcode: CH7M | | | | | | [facility] | | | | | | and Healing, 7th | | | | | | Floor [place], [place] | | | | | | [address] | | | | | | [phone] | | | +--------+ + + + [...] [address] | | | | | | [place] [address] | | +--------+ + + + + | 04/24/ | Office | Hematology & | Annie Gannon, | | | 2017 | Visit | Oncology | AGACNP,SR. MANAGER CORPORATE COMMUNICATIONS [address] | | [address] | | [address] | | | | | | [place], [place] | | | | | | [address] | | | | | | [phone] | | | | | | | | +--------+ + + + + | 04/24/ | Hospital | Adult Acute Care | Savanna Mari, | | | 2017 | Encounter | | MD [address] | | | | | | [place], [place] | | | | | | [address] | | | | | | [phone] | | | | | | | [...] [place] | | | | | | [address] | | | | | | [phone] | | | | | | | | +--------+ + + + + as of this encounter Visit Diagnoses Not on filein this encounter"
--- OUTSIDE RECORDS SUMMARY | ~2018-04-16 | XMS | Encounter Summary ---
Demographics + + + | Address | [address] | | | [place] [address] | + + + | Home Phone | | + + + | Preferred Language | Unknown | + + + | Marital Status | Single | + + + | Baptist Affiliation | CAT | + + + | Race | Unknown | + + + | Ethnic Group | Not or | + + + Author + + + | Author | [facility] | + + + | Organization | [facility] | + + + | Address | Unknown | + + + | Phone | Unavailable | + + + Support + + +---------+ + | Name | Relationship | Address | Phone | + + +---------+ + | ROSE BOWENS | ECON | Unknown | | + + +---------+ + Care Team Providers + +------+ + | Care Hogshead Salvage Name | Role | Phone | + +------+ + | Santo Gooden MD | PCP | | + +------+ + Reason for Visit + + + | Reason | Comments | + + + | Diarrhea | | + + + Encounter Details +--------+ + + + + | Date | Type | Department | Care Team | Description | +--------+ + + + + | 04/07/ | Telephone | Infectious | Wendy Solitario, | Diarrhea | | 2018 | | Diseases at [facility] 3rd | RN [address] | | | | | Floor [address] | [facility] | | | | | [facility] | [place], [place] | | | | | Mailcode: L457 | [address] | | | | | Physicians Katie | | | | | | [place], [place] | | | | | | [address] | | | | | | [phone] | | | +--------+ + + + [...] | | 2018 | | Oncology | [address] | | | | | | [place] [id number] | | +--------+ + + + + | 04/24/ | Office | Hematology & | Annie Gannon, | | | 2017 | Visit | Oncology | AGASHANAE,ORGAN TEACHER [address] | | | | | [address] | | | | | | [place], [place] | | | | | | [address] | | | | | | [phone] | | | | | | | | +--------+ + + + + | 04/24/ | Hospital | Adult Acute Care | Savanna Mari, | | | 2017 | Encounter | | [address] | | | | | | [place], [place] | | | | | | [address] | | | | | | [phone] | | | | | | | [...] Scott | | | | | | [place], [place] | | | | | | [address] | | | | | | [phone] | | | | | | | | +--------+ + + + + as of this encounter Visit Diagnoses Not on filein this encounter"
--- OUTSIDE RECORDS SUMMARY | ~2018-04-16 | XMS | Encounter Summary ---
Demographics + + + | Address | [address] | | | [place] [address] | + + + | Home Phone | | + + + | Preferred Language | Unknown | + + + | Marital Status | Single | + + + | Bahai Affiliation | CAT | + + + | Race | Unknown | + + + | Ethnic Group | Not or | + + + Author + + + | Author | [facility] | + + + | Organization | [facility] | + + + | Address | Unknown | + + + | Phone | Unavailable | + + + Support + + +---------+ + | Name | Relationship | Address | Phone | + + +---------+ + | ROSE BOWENS | ECON | Unknown | | + + +---------+ + Care Team Providers + +------+ + | Care Mud Grinder Name | Role | Phone | + [...] + + | 02/19/ | Office | [facility] Orthopaedics | Zak Coats, | 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 | & Rehabilitation | [address] | ([facility]) (Primary Dx); | | | | [address] | [address] | Status post below | | | | Mailcode: CH12A | [place], [place] | knee amputation of | | | | [facility] | [address] | left lower extremity | | | | and Healing | [phone] | ([facility]) | | | | [place], [place] | | | | | | [address] | | | | | | [phone] | | | +--------+---------+ + + + [...] + as of this encounter Progress Notes Zak Coats MD - 02/19/2018 2:20 PM PDTDiagnosis: Synovial sarcoma left foot Treatment: Needle biopsy 01/15/2018 Below-knee amputation 02/06/2018 History: Tati is here for first follow-up visit after a below-knee amputation. She seems to be havi ng some difficulty with phantom limb sensations. She describes this as being quite painful f or her. She was on gabapentin has now been transitioned to Lyrica. She feels she has not bee n on it long enough to have good feel for whether it is working. She is only looked at her w ound once. She reports minimal drainage on the dressing. She denies any recent fevers or chi lls. Exam: The surgical incision site appears closed. The dressing is dry. In the midportion of the in cision appears intact. The medial and lateral portions of the incision have a small strip of necrosis at the incision line. There is no drainage in this area. There is no significant e rythema in the area. There is moderate swelling throughout the amputation stump. She has se nsation intact on the dorsal and posterior flaps. Plan: Tati is now 2 weeks out from a below-knee amputation. Her wound is closed. However, the sm all strips of necrosis is a little concerning. She has sutures in place. I would like to linette ve those in place a little longer. Due to her tumor type, I think it's important that she st arted chemotherapy. She may ultimately require a debridement and reclosure, but I think it i s worth the risk to start chemotherapy at this stage. We will need to see her in approximate ly 1 week for possible stitch removal. We will try to coordinate this with her hospitalizati ons for chemotherapy.in this encounter Plan of Treatment +--------+ + + + + | Date | Type | Specialty | Care Team | Description | +--------+ + + + + | 04/24/ | Appointment | Hematology & | Darwin Juan | | | 2017 | | Oncology | [address] | | | | | | [place] [address] | | +--------+ + + + + | 04/24/ | Office | Hematology & | Annie Gannon, | | | 2017 | Visit | Oncology | ROME,WOLFGANG [address] | | | | | [address] | | | | | | [place], [place] | | | | | | [address] | | | | | | [phone] | | | | | | | | +--------+ + + + + | 04/24/ | Hospital | Adult Acute Care | Savanna Mari, | | | 2017 | Encounter | | [address] | | | | | | [place], [place] | | | | | | [address] | | | | | | [phone] | | | | | | | [...] [address] | | | | | | [place], [place] | | | | | | [address] | | | | | | [phone] | | | | | | | | +--------+ + + + + as of this encounter Visit Diagnoses + + | Diagnosis | + + | Synovial sarcoma (HCC) - Primary | + + | 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, site unspecified | + + | Status post below knee amputation of left lower extremity (HCC) | + +"
--- OUTSIDE RECORDS SUMMARY | ~2018-04-16 | XMS | Encounter Summary ---
Demographics + + + | Address | [address] | | | [place] [address] | + + + | Home Phone | | + + + | Preferred Language | Unknown | + + + | Marital Status | Single | + + + | Yazdanism Affiliation | CAT | + + + [...] Team Providers + +------+ + | Care Superintendent Oil Field Drilling Name | Role | Phone | + [...] | Floor [address] | [facility] | | | | | [facility] | [place], [place] | | | | | Mailcode: L457 | [address] | | | | | Physicians [address] | | | | | | [place], [place] | | | | | | [address] | | | | | | [phone] | | | +--------+ + + + [...] | | 2018 | | Oncology | [address] | | | | | | [place] [phone] | | +--------+ + + + + | 04/24/ | Office | Hematology & | Annie Gannon, | | | 2017 | Visit | Oncology | AGASHANAE,NAILING MACHINE OPERATOR [address] | [address] | [address] | | | | | | [place], [place] | | | | | | [address] | | | | | | [phone] | | | | | | | | +--------+ + + + + | 04/24/ | Hospital | Adult Acute Care | Savanna Mari, | | | 2017 | Encounter | | [address] | | | | | | [place], [place] | | | | | | [address] | | | | | | [phone] | | | | | | | [...] Scott | | | | | | [place], [place] | | | | | | [address] | | | | | | [phone] | | | | | | | | +--------+ + + + + as of this encounter Visit Diagnoses Not on filein this encounter"
--- OUTSIDE RECORDS SUMMARY | ~2018-04-16 | XMS | Encounter Summary ---
Demographics + + + | Address | [address] | | | [place] [address] | + + + | Home Phone [...] + + + | Author | [facility] | + + + | Organization | [facility] | + + + | Address | Unknown | + + + | Phone | Unavailable | + + + Support + + +---------+ + | Name | Relationship | Address | Phone | + + +---------+ + | ROSE BOWENS | ECON | Unknown | | + + +---------+ + Care Team Providers + +------+ + | Care Hasher Machine Operator Name | Role | Phone [...] site | | 2018 | Encounter | [facility] [address] | [address] [facility] | [address] | | | | Ave Mailcode: CH12A | [facility] | | | | | [facility] | [place], [place] | | | | | and | [address] | | | | | Floor [place], [place] | [phone] | | | | | [address] | | | | | | [phone] | | | +--------+ + + + [...] | | Oncology | [address] [facility] | | | | | | [place] [address] | | +--------+ + + + + | 04/24/ | Office | Hematology & | Annie Gannon, | | | 2017 | Visit | Oncology | [facility] [address] | | | | | | [place], [place] | | | | | | [address] | | | | | | [phone] | | | | | | | | +--------+ + + + + | 04/24/ | Hospital | Adult Acute Care | Savanna Mari, | | | 2017 | Encounter | | [address] | | | | | | [place], [place] | | | | | | [address] | | | | | | [phone] | | | | | | | [...] Scott | | | | | | [place], [place] | | | | | | [address] | | | | | | [phone] | | | | | | | | +--------+ + + + + as of this encounter Visit Diagnoses Not on filein this encounter"
--- OUTSIDE RECORDS SUMMARY | ~2018-04-16 | XMS | Encounter Summary ---
Demographics + + + | Address | [address] | | | [place] [address] | + + + | Home Phone | | + + + | Preferred Language | Unknown | + + + | Marital Status | Single | + + + | Lutheran Affiliation | CAT | + + + | Race | Unknown | + + + | Ethnic Group | Not or | + + + Author + + + | Author | [facility] | + + + | Organization | [facility] | + + + | Address | Unknown | + + + | Phone | Unavailable | + + + Support + + +---------+ + | Name | Relationship | Address | Phone | + + +---------+ + | ROSE CAGE | ECON | Unknown | | + + +---------+ + Care Team Providers + +------+ + | Care Supervisor Webbing Name | Role | Phone | + [...] Description | +--------+---------+ + + + | 03/27/ | Surgery | 6A Intra Op [facility] | Lynda Basurto, | IRRIGATION AND | | 2018 | | [facility] | MD [address] [facility] | DEBRIDEMENT LEFT | | | | Admitting Desk | [address] | BELOW KNEE | | | | Located on the | [place], [place] | AMPUTATION SITE, | | | | floor [address] [facility] | [phone] | WOUND VAC CHANGE, | | | | [address] | [phone] | REVISION BELOW KNEE | | | | [place], [place] | | AMPUTATION | | | | [address] | | | +--------+---------+ + + + [...] Pressure | 139/82 | 04/01/2018 7:50 AM PDT | + + + + | Pulse | 74 | 04/01/2018 7:50 AM PDT | + + + + | Temperature | 36.5 C (97.7 F) | 04/01/2018 7:50 AM PDT | + + + + | Respiratory Rate | 16 | 04/01/2018 7:50 AM PDT | + + + + | Oxygen Saturation | 100% | 04/01/2018 7:50 AM PDT | + + + + | Inhaled Oxygen | - | - | | Concentration | | | + + + + | Weight | 141.6 kg (312 lb 2.7 | 03/24/2018 9:45 AM PDT | | | oz) | | + + + + | Height | 172.7 cm (5' 8") | 03/24/2018 9:45 AM PDT | + + + + | Body Mass Index | 47.47 | 03/24/2018 9:45 AM PDT | + + + + in [...] + + + as of this encounter Discharge Summaries Greg Edgar MD - 04/01/2018 3:47 PM PDTFormatting of this note may be different from the original. Internal Medicine Service Discharge Summary PCP: Santo Gooden MD Author: GREG EDGAR MD Discharging Physician: GREG EDGAR MD Admission Date: 03/23/2018 Discharge Date: 04/01/2018 [...] (including CT abdomen, pelvis, legs). Before di scharge her hemoglobin had improved and her repeat [...] CBC and reticulocyte count on 04/04/18 a [facility]. Appointments: Future Appointments Provider Department Dept Phone Center 04/09/2018 2:00 PM Hem Starter Nurse Hematology/Medical Oncology at [facility] [phone] HemOn 04/09/2018 3:10 PM Sandra Patel Hematology/Medical Oncology at [facility] [place] 04/09/2018 3:40 PM Lynda Basurto [facility] Orthopaedics & Rehabilitation [phone] [place] Discharge condition: Fair Discharge destination (If [...] anxiety (1st line nausea/vomiting). Miscellaneous Medical Supply [facility] Commonly known as: Miscellaneous Medical Supply Bedside [...] 25 mg Tab Commonly known as: HYDRODIURIL Suhdjhgxu-Zfupldgwb-Rr-Mag-Sim [phone] mg/30 mL Mwsh Commonly known as: FIRST-MOUTHWASH [...] room air Abdominal: nontender, non-distended, obese Skin: [place], warm, well-perfused, no ecchymoses Extremities: LLE lzpci-dfe-dwza amputation site dressed in compression wrap. Drain and skin VAC have been removed. PNB catheter has been removed. No significant TTP on BLE. Neuro: A&Ox4, grossly intact motor and sensory function Psych: Appropriate Lines: Port in place on right chest Discharge weight: Wt Readings from Last 1 Encounters: 03/24/18 141.6 kg (312 lb 2.7 oz) Discharging Physician: GREG EDGAR MD Attending Physician: GREG EDGAR MD I spent more than 36 minutes vqjl-if-ippd with the patient of which greater than 50% was sp ent counseling the patient coordinating care. in this encounter Discharge Instructions Rashida Thompson RN - 04/01/2018In order to receive services for line care and lab work at [facility] Out Patient Infusion/Day Surgery: you will first need to be seen by an MD (with stephane cortez at [facility] in clinic). Please go in to [facility] in clinic to see an MD prior to your Saturday04/04/2018 [facility] for your lab work.in this encounter Medications at Time of Discharge + + + +---------+ + + | Medication | Sig. | Disp. | Refills | Start | End Date | | | | | | Date | | + + + +---------+ + + | acetaminophen 500 | Take 2 tablets by | | | 04/01/20 | | | mg oral tablet | mouth every eight | | | 18 | | | | hours as needed for | | | | | | | moderate pain. | | | | | + + [...] line | | | | | | ([facility]) | nausea/vomiting). | | | | | + + + +---------+ + + | LYRICA 225 mg oral | Take 300 mg by mouth | | | 03/14/20 | | | capsule | two times daily. At | | | 18 | | | | 0900 and 1700. | | | | | + + [...] + + + +---------+ + + | OLANZapine 10 mg | Take 1 tablet by | | | 03/14/20 | | | oral tablet | mouth once daily at | | | 18 | | | | bedtime. | | [...] for | | | | | | ([facility]) | nausea/vomiting). 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 Wean off soon | | | | | | ([facility]) | and do not combine | | | | | | | with other sedating | | | | | | | meds like Clonazapam | | | | | + + [...] line | | | | | | ([facility]) | agent for acute or | | [...] + + + +---------+ + + | senna-docusate | Take 2 tablets by | 120 | 2 | 04/01/20 | | | 8.6-50 mg oral | mouth two times | tablet | | 18 | | | tablet | daily. Prevention of | | | | | | | opioid induced | | | | | | | constipation | | | | | + + + +---------+ + + as of this encounter Progress Notes Junaid Burrell MD - 04/01/2018 12:24 PM PDTFormatting of this note may be different from the original. Orthopaedic Surgery Progress Note Patient: /Age: MRN: CSN: Date: Admission Date: Hospital Day: Orthopaedic Attending: Tati Cage 1985 32 y.o. [id number] 04/01/2018 03/23/2018 9 Macie Torre MD Diagnosis(es): [...] to make a follow up appointment in [facility] 2 weeks with ORTHO ONCOLOGY, Odalys Stafford - (Adela) Junaid Burrell MD Orthopaedic Surgery, R3 [id number] 03/31/2018 Cesia Foster NP - 04/01/2018 12:14 PM PDTFormatting of this note may be different from t he original. Orthopaedic Surgery Progress Note Patient: /Age: MRN: CSN: Date: Admission Date: Hospital Day: Orthopaedic Attending: Tati Cage 1985 32 y.o. [id number] 04/01/2018 03/23/2018 9 Macie Torre MD Diagnosis(es): [...] infection or alberto inage. Cesia Foster NP [facility] [address] [place] [address] Lynda Basurto MD - 04/01/2018 11:49 AM PDTPt eager [...] -drain out and dsg change prior to dischargeDawit Amaya - 03/31/2018 7:38 PM PDTFor matting of this note may be different from the original. General Internal Medicine 1 Progress Note 24 [...] consulted, see above plan # Pancytopenia # Cirgv-zz-xursfrc anemia Pt's WBC and platelets have recovered, but her anemia persists despite repeated transfusion s (total of 7 units pRBCs here and 1 unit previously at OSH). Likely hypoproliferation (nichole beth low reticulocyte index of 0.09)in setting of [...] n 03/17/18. - Pt beingfollowed by onc [facility], appreciate recs. Dr. Sandra Patel is her [...] and hemat ology workup. Dawit Amaya, MS4 [facility] [id number] Associated attestation - Greg Edgar MD - 03/31/2018 9:11 PM PDTGeneral Medicine Attending Progress Note Author: Greg Edgar MD Hospital Day # 8 PCP: Santo [...] and is agreeable with our plans. Greg Edgar MD Strike Planning Applications Division of Hospital Medicine Teaching Attending I spent 37 minutes in the care of this patient, >50% engaged in bedside counseling or coord ination of care with orthopedics, anesthesia pain service.Bela Holt MD - 018 9:28 AM PDTPt weaned off PNB. Catheter pulled. Tip intact. Coag status normal prior to removal of catheter. APS will sign-off. Please pg APS [phone] with questions/concerns. Bela Holt MD APS # [id number] Lynda Basurto MD - 03/31/2018 9:14 AM PDTPt doing ok. Block weaned. Getting blood tr ansfusion. PE: Ht 1.727 m (5' 8"), Wt [...] out, dsg change -ok from ortho to dischargeJunaid Burrell MD - 03/31/2018 7:48 AM PDTFormatting of this note may be different from the original. Orthopaedic Surgery Progress Note Patient: /Age: MRN: CSN: Date: Admission Date: Hospital Day: Orthopaedic Attending: Tati Cage 1985 32 y.o. [id number] 03/31/2018 03/23/2018 8 Macie Torre MD Diagnosis(es): [...] to make a follow up appointment in [facility] 2 weeks with ORTHO ONCOLOGY, Odalys Stafford - (Sb and Jorge L) Junaid Burrell MD Orthopaedic Surgery, R3 [id number] 03/31/2018 Cesia Gaitan MD - 03/30/2018 4:51 PM PDTAPS Clarification Note; Tonight the continuous rate on the nerve block will be to 0 ml/hr and bolus only will be in place. Catheter will be pulled Saturday morning. Cesia Gaitan MD [facility] [address] [address] [facility], 4th Floor Mail Code: CH4P [place], [place] [address] Rafael Shell MD - 03/30/2018 4:35 PM PDTFormatting of this note may be different from t jorge luis original. General Internal Medicine 1 Progress Note 24 [...] on 03/17/18. - Pt beingfollowed by onc [facility], appreciate recs. Dr. Sandra Patel is her primary oncologist and she will have follow up on 04/09 to discuss cycle 3 planning. # mild LE edema Suspect due to IVF. - compression stocking to RLE. - will consider lasix # Pancytopenia # Smbax-uz-ldxgpno anemia Likely hypoproliferationin setting of recentsystemic chemotherapy and acute inflammatio n. Will continue to monitor and transfuse as needed, goal >7. - She has received a total of 5 units of pRBCs at [facility] and 1 unit previously at OSH. - [...] on pain control and surgical wound Rafael Suleman PGY-2 Internal Medicine Pager # [phone] Associated attestation - Greg Edgar MD - 03/30/2018 11:28 PM PDTGeneral Medicine Attending Progress Note Author: Greg Edgar MD Hospital Day # 7 PCP: Santo [...] and is agreeable with our plans. Greg Edgar MD Strike Planning Applications Division of Hospital Medicine Teaching Attending I spent 36 minutes in the care of this patient, >50% engaged in bedside counseling or coord ination of care with anesthesia pain service. Cesia Gaitan MD - 03/30/2018 10:40 AM PDTFormatting of this note may be different fro m the original. INPATIENT ADULT PAIN SERVICE PERIPHERAL [...] 25 mg 25 mg oral Q6H PRN usfzwcdbwoNBSPN-ymzaqyeyn-KGGKIU (SPECIAL MOUTHWASH) suspension (compound) 5 mL 5 [...] recommendations with primary care team provider . MD Kandy Briceño Kimberly M, MD - 03/30/2018 10:26 AM PDTFormatting of this note may be different fro m the original. INPATIENT ADULT PAIN SERVICE PERIPHERAL [...] 25 mg 25 mg oral Q6H PRN ljhdhlrwtgUGJWS-iagrsltgq-LUJLFU (SPECIAL MOUTHWASH) suspension (compound) 5 mL 5 [...] recommendations with primary care team provider . MD Jorge L Briceño James B, MD - 03/30/2018 10:00 AM PDTFormatting of this note may be different from the original. INPATIENT PROGRESS NOTE Hospital Day:7 Author; MACIE COATS MD Interval Hx: feeling better Physical Exam: [...] Plan: Stable. continue abx. wean block. Adam Jean MD - 03/30/2018 6:45 AM PDTFormatting of this note may be different from th e original. Orthopaedic Surgery Progress Note Patient: /Age: MRN: CSN: Date: Admission Date: Hospital Day: Orthopaedic Attending: Tati Cage 1985 32 y.o. [id number] 03/30/2018 03/23/2018 7 Macie Torre MD Diagnosis(es): [...] 6 weeks through jose ent's existing port. Will be tapering nerve [...] to make a follow up appointment in [facility] 2 weeks with ORTHO ONCOLOGY, Odalys Stafford - (Sb and Jorge L) Adam Jean MD Pager: [phone] Dawit Amaya Sho - 03/29/2018 4:46 PM PDTFormatting of this note may be different from t jorge luis original. General Internal Medicine 1 Progress Note 24 [...] on 03/17/18. - Pt beingfollowed by onc [facility], appreciate recs. Dr. Sandra Patel is her primary oncologist . Oncology team communicating with Dr. Patel. - Coordinating with onc and ortho regarding plan for timing of cycle 3 of chemotherapy, whi ch will need to be delayed to allow for healing after infection. # Pancytopenia # Jedqk-lm-uxvfswn anemia Likely hypoproliferationin setting of recentsystemic chemotherapy and acute inflammatio n. Will continue to monitor and transfuse as needed, goal >7. - Hg 6.8 this morning --> pRBC x1 today - She has received a total of 5 units of pRBCs at [facility] and 1 unit previously at OSH. - [...] Dispo: Continue inpatient care Dawit Amaya, MS4 [facility] Pager [phone] Associated attestation - Greg Edgar MD - 03/29/2018 8:31 PM PDTGeneral Medicine Attending Progress Note Author: Greg Edgar MD Hospital Day # 6 PCP: Santo [...] nerve block tomorrow. Anticipate DC MON vs TU . Patient/Family Goals & Expectations: Above problems discussed with the patient who understands and is agreeable with our plans. Greg Edgar MD [employer] Planning [employer] Division of Hospital Medicine Teaching Attending I spent 40 minutes in the care of this patient, >50% engaged in bedside counseling or coord ination of care with ID. Macie Coats MD - 03/29/2018 7:46 AM PDTFormatting of this note may be different from the original. INPATIENT PROGRESS NOTE Hospital Day:6 Author; MACIE COATS MD Interval Hx: pain much better today. [...] leave block today and wean tomorrow. Adam Jean MD - 03/29/2018 5:15 AM PDTFormatting of this note may be different from th e original. Orthopaedic Surgery Progress Note Patient: /Age: MRN: CSN: Date: Admission Date: Hospital Day: Orthopaedic Attending: Tati Cage 1985 32 y.o. [id number] 03/29/2018 03/23/2018 6 Macie Torre MD Diagnosis(es): [...] to make a follow up appointment in [facility] 2 weeks with ORTHO ONCOLOGY, Odalys Stafford - (Sb and Jorge L) Adam Jean MD Pager: [phone] Dawit Amaya - 03/28/2018 1:33 PM PDTFormatting of this note may be different from t jorge luis original. General Internal Medicine 1 Progress Note 24 [...] in 4/5. Pathology Report from 03/24/18 left znmvt-maw-mlay amputation site debridement: "A. Soft tissue, left [...] on 03/17/18. - Pt beingfollowed by onc [facility], appreciate recs. Dr. Sandra Patel is her primary oncologist . Oncology team will communicate with Dr. Patel. - Coordinating with onc and ortho regarding plan for timing of cycle 3 of chemotherapy, whi ch will need to be delayed to allow for healing after infection. # Pancytopenia # Oaple-az-cwfrakj anemia Likely hypoproliferationin setting of recentsystemic chemotherapy and acute inflammatio n. Will continue to monitor and transfuse as needed, goal >7. - Hg 9.2 this morning. - She has received at total of 4 units of pRBCs at [facility] and 1 unit previously at OSH. - [...] Dispo: Continue inpatient care Dawit Amaya, MS4 [facility] Pager [phone] Associated attestation - Greg Edgar MD - 03/28/2018 8:48 PM PDTGeneral Medicine Attending Progress Note Author: Greg Edgar MD Hospital Day # 5 PCP: Santo [...] and is agreeable with our plans. Greg Edgar MD Strike Planning Applications Division of Hospital Medicine Teaching Attending I spent 35 minutes in the care of this patient, >50% engaged in bedside counseling or coord ination of care with orthopedics. Junaid Burrell MD - 03/28/2018 12:58 PM PDTFormatting of this note may be different from the original. Orthopaedic Surgery Progress Note Patient: /Age: MRN: CSN: Date: Admission Date: Hospital Day: Orthopaedic Attending: Tati Cage 1985 32 y.o. [id number] 03/28/2018 03/23/2018 5 Macie Torre MD Diagnosis(es): left below-knee amputation stump infection Orthopaedic Procedure(s) & Date(s): 03/24/18: irrigation and debridement of left below-knee amputation stump, wound vac application 03/27/18: Irrigation, debridement, and revision of left below-knee amputation site, wound measuring 2 0 cm in length Assessment & Plan: Tati Cage is a [...] to make a follow up appointment in [facility] 2 weeks with ORTHO ONCOLOGY, Odalys Stafford - (Adela) Subjective: Feeling well today, no [...] edge. Junaid Burrell MD Orthopaedic Surgery, R3 [id number] 03/26/2018 Madiha Beckford DNP - 03/28/2018 12:15 PM PDTFormatting of this note may be different from the original. INPATIENT ADULT PAIN SERVICE PERIPHERAL [...] the lef t lower extremity pain. Ms. Yee pain score at rest is 0/10. With [...] 25 mg 25 mg oral Q6H PRN hwfrogmcwxSCEBH-ntemzyoyn-HFNIHZ (SPECIAL MOUTHWASH) suspension (compound) 5 mL 5 [...] on file Social History Narrative Works in [employer] at a [employer] near [place]. No kids. Lives with her mother Rose. Labs: Lab Results Component Value Date WBC [...] appears to infusing appropriately as evidenced by Tati's pain relief. PNB troubleshooting was needed? NO Diagnosis: 1. Acute post operative pain 2. Synovial sarcoma Recommendations: Continue peripheral nerve block unchanged, titrate per protocol as needed Peripheral nerve block in place: If Hood is in place, it may be removed if deemed appropri ate by primary care team. Madiha Rebollar DNP, GARBAGE COLLECTION SUPERVISOR-C [facility] [address] [place] [id number] Lynda Basurto MD - 03/28/2018 8:06 AM PDTPt doing [...] -vac off and drain out prior to dischargeRicardo Morales MD,PhD - 03/27/2018 6:21 PM PDTBrief A PS Note Paged by nurse around 17:50 stating [...] Ricardo Morales MD/PhD Anesthesiology CA-2 APS pager [phone] Sho - 03/27/2018 6:39 AM PDTFormatting of this note may be d ifferent from the original. General Internal Medicine 1 Progress Note 24 [...] neutropenia after c hemotherapy. # Pancytopenia # Oeczj-wi-qmwnkmh anemia Likely hypoproliferation in setting of recentsystemic chemotherapy and acute inflammation . Will continue to monitor and transfuse as needed, goal >7. - Hg 8.0 this morning prior to procedure today, 7.4 after. EBL of 200 mL during procedure. - She has received at total of 4 units of pRBCs at [facility] and 1 unit previously at OSH. - [...] on 03/17/18. - Pt beingfollowed by onc [facility], appreciate recs. Dr. Sandra Patel is her [...] Dispo: Continue inpatient care Dawit Amaya, MS4 [facility] Pager [phone] Associated attestation - Greg Edgar MD - 03/28/2018 11:52 AM PDTGeneral Medicine Attending Progress Note Author: Greg Edgar MD Hospital Day # 5 PCP: Santo [...] and is agreeable with our plans. Greg Edgar MD Strike Planning Applications Division of Hospital Medicine Teaching Attending I [...] possible closure. -NPO p MN -cont IV Dawit Pichardo - 03/26/2018 4:45 PM PDTFormatting of this note may be diff erent from the original. General Internal Medicine 1 Progress Note 24 Hour Events: - Home-dose Lorazepam 0.5mg given last night, which helped her sleep - Hg yesterday evening was 6.1, given pRBC x1. Repeat Hg overnight was was 6.6, so addition al pRBC x1 given. Four units of pRBCs have been given at [facility], with 1 unit given at OSH. Current [...] returning to the OR. # Pancytopenia # Ujryu-gl-yytrivs anemia Likely hypoproliferation in setting of recentsystemic chemotherapy and acute inflammation . No evidence of acute blood loss or hemolysis. Drainage from wound vac has been minimal. Wi ll continue to monitor and transfuse as needed, goal >7. - Hg improved to 9.2 today after an additional unit of pRBCs this morning. She has received at total of 4 units of pRBCs at [facility] and 1 unit previously at OSH. - [...] 03/17/18. - Pt being followed by onc [facility], appreciate recs. Dr. Sandra Patel is her [...] Dispo: Continue inpatient care Dawit Amaya, MS4 [facility] Pager [phone] Associated attestation - Grge Edgar MD - 03/26/2018 8:45 PM PDTGeneral Medicine Attending Progress Note Author: Greg Edgar MD Hospital Day # 3 PCP: Santo [...] and is agreeable with our plans. Greg Edgar MD Strike Planning Applications Division of Hospital Medicine Teaching Attending I spent 35 minutes in the care of this patient, >50% engaged in bedside counseling or coord ination of care with orthopedics. Junaid Burrell MD - 03/26/2018 8:29 AM PDTFormatting of this note may be different from the original. Orthopaedic Surgery Progress Note Patient: /Age: MRN: CSN: Date: Admission Date: Hospital Day: Orthopaedic Attending: Ttai Cage 1985 32 y.o. [id number] 03/26/2018 03/23/2018 3 Macie Torre MD Diagnosis(es): [...] to make a follow up appointment in [facility] 2 weeks with ORTHO ONCOLOGY, Odalys Stafford - (Adela) Subjective: Feeling well today, no [...] edge. Junaid Burrell MD Orthopaedic Surgery, R3 [id number] 03/26/2018 Greg Edgar MD - 03/25/2018 9:59 PM PDTGeneral Medicine Attending Progress Note Author: Greg Edgar MD Hospital Day # 2 PCP: Santo [...] and is agreeable with our plans. Greg Edgar MD Strike Planning Applications Division of Hospital Medicine Teaching Attending I spent 35 minutes in the care of this patient, >50% engaged in bedside counseling or coord ination of care with orthopedics. Lynda Basurto MD - 03/25/2018 8:51 AM PDTPt doing [...] need to shorten bone to do so. -Sorin Youssef MD - 03/25/2018 8:09 AM PDTFormatting of this note may be different fr om the original. Orthopaedic Surgery Progress Note Patient: /Age: MRN: CSN: Date: Admission Date: Hospital Day: Orthopaedic Attending: Tati Cage 1985 32 y.o. [id number] 03/25/2018 03/23/2018 2 Macie Torre MD Diagnosis(es): [...] to make a follow up appointment in [facility] 2 weeks with ORTHO ONCOLOGY, Odalys Stafford - (Adela) Subjective: Overnight Events: Returned from OR yesterday. NAEON Objective: Exam: General: appropriate, oriented Respiratory: Appropriate, [...] knee. Reflexes: not performed Sorin Aguirre MD [facility] Department of Orthopaedics & Rehabilitation [address] [place] [address] Mail Code: OP31 [facility] [id number] AmayaDawit riley Sho - 03/25/2018 7:30 AM PDTFormatting of this note may be different from t jorge luis original. General Internal Medicine 1 Progress Note 24 [...] 03/17/18. - Pt being followed by onc [facility], appreciate recs. Dr. Sandra Patel is her [...] Dispo: Continue inpatient care Dawit Amaya, MS4 [facility] Pager [phone] Associated attestation - Yves Cornejo MD - 03/25/2018 8:50 PM PDTFormatting of thi s note may be different from the original. 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 Remainder of plan per her some international marketing manager note attached. Yves "Eleanor Cornejo MD Internal Medicine PGY-2 P This note has been documented with the assistance of voice recognition software. Please not e, there may be typographic or semantic errors as a result. The medical plan has been review ed and is considered complete and correct. Dawit Amaya - 03/24/2018 4:39 PM PDTFormatting of this note may be different from t he original. General Internal Medicine 1 Progress Note 24 Hour Events: - Irrigation and debridement of left sorbc-cfw-dnal amputation stump followed by wound vac placement, [...] Dispo: Continue inpatient care Dawit Amaya, MS4 [facility] Pager [phone] Burciaga MD,MPH - 03/24/2018 12:56 PM PDTFormatting of this note may be different from the original. INPATIENT BRIEF OPERATIVE NOTE Procedure Date: 03/24/2018 Author: TSERING BURCIAGA MD,MPH Attending Physician: Macie Torre MD Assistants: TSERING BURCIAGA MD,MPH, Jay Gonzalez MD Preoperative Diagnosis: left [...] this week for repeat I&D, possible revi bonifacio below-knee amputation 6. Medications: Resume home medications as indicated 7. VTE prophalaxis: sequential compression devices, early ambulation 8. Anticipated discharge: Pending course TSERING BURCIAGA MD,MPH PGY-5 Orthopaedic Surgery Pager: [phone] Rc Simpson MD - 03/24/2018 2:00 AM PDTBrief Ortho Note Given patient's neutropenic fever in the setting of drainage and erythema at her BKA stump, saw patient this AM to evaluate for progression of infection. On entering the room, the pat jesse was ambulating from the bathroom without difficulty. [...] Federico Simpson MD Orthopedic Surgery, R2 Pager [phone] in this encounter Plan of Treatment +--------+ + + + + | Date | Type | Specialty | Care Team | Description | +--------+ + + + + | 04/24/ | Appointment | Hematology & | Nurse, Hem Starter | | | 2017 | | Oncology | [address] [facility] | | | | | | [place] [address] | | +--------+ + + + + | 04/24/ | Office | Hematology & | Annie Gannon, | | | 2017 | Visit | Oncology | AGACNP,GARBAGE COLLECTION SUPERVISOR [address] | | | | | | [address] | | | | | | [place], [place] | | | | | | [address] | | | | | | [phone] | | | | | | | | +--------+ + + + + | 04/24/ | Hospital | Adult Acute Care | Savanna Mari, | | | 2017 | Encounter | | [address] | | | | | | [facility] [place] | | | | | | [address] | | | | | | [phone] | | | | | | | [...] [address] | | | | | | [place], [place] | | | | | | [address] | | | | | | [phone] | | | | | | | | +--------+ + + + + + +--------+ + + | Name | Priori | Associated Diagnoses | Date/Time | | | ty | | | + +--------+ + + | TYPE AND SCREEN | Routin | | 03/23/2018 4:41 PM | | | e | | PDT | + +--------+ + + | POLI BAIRD | Routin | | 03/31/2018 11:33 AM | | | e | | PDT | + +--------+ + + + +--------+ + + | Name | Priori | Associated Diagnoses | Order Schedule | | | ty | | | + +--------+ + + | TYPE AND SCREEN | Routin | | One Time for 1 | | | e | | Occurrences starting | | | | | 03/23/2018 until | | | | | 03/23/2018 | + +--------+ + + | ABO & RH TYPE | Routin | | Once for 1 | | | e | | Occurrences starting | | | | | 03/23/2018 until | | | | | 03/23/2018 | + +--------+ + + | POLI BAIRD | Routin | | One Time for 1 | | | e | | Occurrences starting | | | | | 03/31/2018 until | | | | | 03/31/2018 | + +--------+ + + | C3 CRISTIANO | Routin | | Once for 1 | | | e | | Occurrences starting | | | | | 03/31/2018 until | | | | | 03/31/2018 | + +--------+ + + as of this encounter Procedures [...] | + +--------+ + + + | LOWER EXTREMITY | Electi | 03/27/2018 | INFECTED LEFT | | | AMPUTATION | ve | 9:10 AM | BELOW KNEE | | | | Surgic | PDT | AMPUTATION SITE | | | | al | | | | + +--------+ + + + in this encounter Results BASIC METABOLIC SET (NA, K, CL, TCO2, BUN, CR, GLU, CA) (04/01/2018 4:41 AM) + +---------+ + | Component | Value | Ref Range | + +---------+ + | GLUCOSE, PLASMA | 135 (H) | 70 - 99 mg/dL | | (LAB) | | | + +---------+ + | BUN, PLASMA (LAB) | 10 | 6 - 20 mg/dL | + +---------+ + | CREATININE PLASMA | 0.63 | 0.60 - 1.10 mg/dL | | (LAB) | | | + +---------+ + | EGFR - | >60 | >60 mL/min | | AUSTRALIAN | | | + +---------+ + | EGFR NON | >60 | >60 mL/min | | -AUSTRALIAN | | | + +---------+ + | SODIUM, PLASMA (LAB) | 140 | 136 - 145 mmol/L | + +---------+ + | POTASSIUM, PLASMA | 4.2 | 3.4 - 5.0 mmol/L | | (LAB) | | | + +---------+ + | CHLORIDE, PLASMA | 107 | 97 - 108 mmol/L | | (LAB) | | | + +---------+ + | TOTAL CO2, PLASMA | 28 | 21 - 32 mmol/L | | (LAB) | | | + +---------+ + | CALCIUM, PLASMA | 8.1 (L) | 8.6 - 10.2 mg/dL | | (LAB) | | | + +---------+ + | ANION GAP | 5 | 4 - 11 mmol/L | + +---------+ + | POTASSIUM CMNT | No Hemo | | + +---------+ + + + + | Specimen | Performing Laboratory | + + + | Blood | [facility], CORE [address] | | | [place] [address] | + + + + + | [...] | | muscle-wasting diseses | + + RBC MORPHOLOGY (04/01/2018 4:40 AM) + + + + | Component | Value | Ref Range | + + + + | ANISOCYTOSIS | 1+(10-25cells/HPF) | | + + + + + + + | Specimen | Performing Laboratory | + + + | Blood | [facility], CORE [address] [place] [address] | | | [place] [address] | + + + MANUAL DIFFERENTIAL (04/01/2018 4:40 AM) + + + + | Component | Value | Ref Range | + + + + | NEUTROPHIL % | 75.0 (H) | 50.0 - 70.0 % | + + + + | LYMPHOCYTE % | 12.9 (L) | 18.0 - 42.0 % | + + + + | MONOCYTE % | 7.8 | 3.5 - 9.0 % | + + + + | EOSINOPHIL % | 0.0 (L) | 1.0 - 3.0 % | + + + + | BASOPHIL % | 1.7 | 0.0 - 2.0 % | + + + + | IG% | 2.6 (H)Comment: Increased immature | 0.0 - 1.0 % | | | granulocytes(IG)define a left shift.IGs | | | | include metamyelocytes, myelocytes and | | | | promyelocytes. Bands are included in the | | | | neutrophil count, not the IG count, except | | | | in neonates <=60 days old where bands are | | | | reported in a manual diff. | | + + + + | NEUTROPHIL # | 8.21 (H) | 1.80 - 7.70 K/cu mm | + + + + | LYMPHOCYTE # | 1.41 | 1.00 - 4.80 K/cu mm | + + + + | MONOCYTE # | 0.85 | 0.10 - 0.90 K/cu mm | + + + + | EOSINOPHIL # | 0.00 | 0.00 - 0.50 K/cu mm | + + + + | BASOPHIL # | 0.19 (H) | 0.00 - 0.10 K/cu mm | + + + + | IG# | 0.28 (H) | 0.00 - 0.10 K/cu mm | + + + + + + + | Specimen | Performing Laboratory | + + + | Blood | [facility], [address]ORE [address] [address] | | | [place] [address] | + + + + + | Narrative | + + | New pediatric reference ranges for Lymphocyte % in effect February 13, 2018. | | Increased immature granulocytes(IG)define a left shift.IGs include metamyelocytes, | | myelocytes and promyelocytes. Bands are included in the neutrophil count, not the IG | | count, except in neonates <=60 days old where bands are reported in a manual diff. | + + CBC AND AUTO DIFF (04/01/2018 4:40 AM) + + + + | Component | Value | Ref Range | + + + + | WHITE CELL COUNT | 10.94 (H) | 3.50 - 10.80 K/cu mm | + + + + | RED CELL COUNT | 2.85 (L) | 4.00 - 5.20 M/cu mm | + + + + | HEMOGLOBIN | 8.7 (L) | 12.0 - 16.0 g/dL | + + + + | HEMATOCRIT | 27.1 (L) | 36.0 - 46.0 % | + + + + | MCV | 95.1 | 80.0 - 100.0 fL | + + + + | MCHC | 32.1 | 32.0 - 36.0 g/dL | + + + + | RDW SD | 52.4 (H) | 35.1 - 46.3 fL | + + + + | PLATELET COUNT | 238 | 150 - 400 K/cu mm | + + + + | MPV | 10.0 | 9.7 - 12.3 fL | + + + + | NRBC% | 0.6 (H) | 0.0 - 0.3 % | + + + + | NRBC# | 0.07 (H) | 0.00 - 0.02 K/cu mm | + + + + + + + | Specimen | Performing Laboratory | + + + | Blood | [facility], [address] [place] [address] | | | [place] [address] | + + + + + | Narrative | + + | New reference ranges for MCV, MCHC, PLT, IG% and IG# effective 01/09/2018 | + + RETICULOCYTE COUNT (04/01/2018 4:40 AM) + + + + | Component | Value | Ref Range | + + + + | RETICULOCYTE COUNT | 6.8 (H) | 0.5 - 1.5 % | + + + + | RETIC ABSOLUTE # | 194.4 (H) | 10.0 - 90.0 K/cu mm | + + + + + + + | Specimen | Performing Laboratory | + + + | Blood | [facility], [address]ORE [address] | | | [place] [address] | + + + CBC, WITH DIFFERENTIAL (04/01/2018 4:40 AM) + + + | Specimen | Performing Laboratory | + + + | Blood | | + + + + + | Narrative | + + | The following orders were created for panel order CBC, WITH DIFFERENTIAL. | | Procedure | | Abnormality Status | | --------- | | ------ CBC AND AUTO | | DIFF[[id number]] Abnormal Final | | result MANUAL | | DIFFERENTIAL[[id number]] Abnormal Final | | result RBC | | MORPHOLOGY[[id number]] | | Final result Please view results for these tests on the | | individual orders. | + + RETICULOCYTE COUNT, BLOOD (04/01/2018 4:40 AM) + + + | Specimen | Performing Laboratory | + + + | Blood | | + + + + + | Narrative | + + | The following orders were created for panel order RETICULOCYTE COUNT, BLOOD. | | Procedure | | Abnormality Status | | --------- | | ------ RETICULOCYTE | | COUNT[[id number]] Abnormal Final | | result Please view results for these tests on the | | individual orders. 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 | | Now with unexplained anemia concerning for occult hemorrhage. COMPARISON: Left knee | | radiographs from 03/23/2019. TECHNIQUE: Axial CT images of bilateral lower | | extremities were acquired. Sagittal and coronal reformations were | | completed. Iodinated IV contrast was administered. FINDINGS: The patient has | | a left wgyqv-suv-qwfw amputation. A surgical drain is present at the distal aspect of | | the stump. The underlying bones are intact, without fracture, focal destruction, or | | aggressive periosteal reaction. There is mild skin thickening of the left lower | | extremity stump, with a small amount of subcutaneous edema. No fluid collections are | | visualized. There is anasarca with mild subcutaneous edema throughout the right | | lower extremity as well as in the visualized pelvis and lower abdomen. Several screw | | tracts are noted in the right talus, with a small amount of residual metallic material | | in one of the tracts. There is mild midfoot and hindfoot arthrosis, with spurring and | | joint space narrowing involving the talonavicular, navicular-cuneiform, and | | calcaneal-cuneiform joints. No fracture is seen in the right lower extremity. An IUD | | is positioned within the uterine cavity. Visualized intra-abdominal and pelvic contents | | are otherwise unremarkable. IMPRESSION: 1. Expected postsurgical changes of | | left below the knee amputation revision. 2. No CT evidence for osteomyelitis. No | | hematoma, abscess, or other focal fluid collection visualized. I have personally | | reviewed the images and, if necessary, edited the report. I agree with the report as now | | presented. Final signature: Helen Parra MD 04/01/2018 4:58 PM | | Preliminary: Helder Romano MD 04/01/2018 10:01 AM Dictation initiated: Helder Romano | | 03/31/2018 5:16 PM | + + + + | Procedure [...] administered. FINDINGS: The patient has a left dnuov-ayp-hsak amputation. A surgical | | drain is [...] MD 03/31/2018 5:16 PM | + + CT ABDOMEN AND PELVIS W IV CONTRAST (03/31/2018 5:08 PM) + + + | Specimen | Performing Laboratory | + + + | | [facility] RADIOLOGY VOICE RECOGNITION 2 | + + + + + | Narrative | + + | EXAM: CT of the abdomen and pelvis WITH intravenous contrast. HISTORY: 32F with L | | foot sarcoma s/p chemo and L BKA admit for stump infection now S/p I&D found to have | | Osteo. unexplained progression of anemia concerning for possible occult hemorrhage. | | COMPARISON: None available. TECHNIQUE: CT of the abdomen and pelvis with | | non-ionic iodinated intravenous contrast. Coronal and sagittal reformats were generated | | and reviewed. FINDINGS: LOWER THORAX: Unremarkable. LIVER: Mild periportal | | edema and gallbladder wall edema is nonspecific, possibly reflecting fluid overload or | | retention. Otherwise unremarkable. BILIARY: No biliary dilatation. PANCREAS: | | Unremarkable. SPLEEN: Unremarkable. ADRENALS: Unremarkable. KIDNEYS/URETERS: | | Unremarkable. PELVIC ORGANS/BLADDER: IUD noted in the uterus. GI TRACT: | | Unremarkable. PERITONEUM: No free air or fluid. LYMPH NODES: No lymphadenopathy. | | VESSELS: Unremarkable. BONES AND SOFT TISSUES: Unremarkable. IMPRESSION: | | Unremarkable. No hemorrhage identified. I have personally reviewed the images and, | | if necessary, edited the report. I agree with the report as now presented. Final | | signature: Derrick Ledbetter MD 03/31/2018 5:18 PM Preliminary: Derrick Ledbetter | | Dictation initiated: Derrick Ledbetter MD 03/31/2018 5:15 PM | + + + + | Procedure Note | + + | Service Account, RadiFoound Res In Interface - 03/31/2018 5:20 PM [...] MD 03/31/2018 5:15 PM | + + CBC (HEMOGRAM) ONLY (03/31/2018 1:57 PM) + + + + | Component | Value | Ref Range | + + + + | WHITE CELL COUNT | 11.10 (H) | 3.50 - 10.80 K/cu mm | + + + + | RED CELL COUNT | 3.31 (L) | 4.00 - 5.20 M/cu mm | + + + + | HEMOGLOBIN | 10.2 (L) | 12.0 - 16.0 g/dL | + + + + | HEMATOCRIT | 31.3 (L) | 36.0 - 46.0 % | + + + + | MCV | 94.6 | 80.0 - 100.0 fL | + + + + | MCHC | 31.9 (L) | 32.0 - 36.0 g/dL | + + + + | RDW SD | 51.3 (H) | 35.1 - 46.3 fL | + + + + | PLATELET COUNT | 220 | 150 - 400 K/cu mm | + + + + | MPV | 10.0 | 9.7 - 12.3 fL | + + + + | NRBC% | 2.0 (H) | 0.0 - 0.3 % | + + + + | NRBC# | 0.22 (H) | 0.00 - 0.02 K/cu mm | + + + + + + + | Specimen | Performing Laboratory | + + + | Blood | [facility], [address] | | | [place] [address] | + + + + + | Narrative | + + | New reference ranges for MCV, MCHC, PLT, IG% and IG# effective 01/09/2018 Collect | | after 2 units have completed transfusion. | + + CBC ONLY (03/31/2018 1:57 PM) + + + | Specimen | Performing Laboratory | + + + | Blood | | + + + + + | Narrative | + + | The following orders were created for panel order CBC ONLY. | | Procedure | | Abnormality Status | | --------- | | ------ CBC (HEMOGRAM) | | ONLY[[id number]] Abnormal Final | | result Please view results for these tests on the | | individual orders. | + + C3 CRISTIANO (03/31/2018 11:33 AM) + + + + | Component | Value | Ref Range | + + + + | CRISTIANO C3 | Negative | | + + + + + + + | Specimen | Performing Laboratory | + + + | Blood | [facility], TRANSFUSION MEDICINE [address] [facility] | | | [address] [place] [address] | + + + COMPLETE METABOLIC SET (NA,K,CL,CO2,BUN,CREAT,GLUC,CA,AST,ALT,BILI TOTAL,ALK PHOS,ALB,PROT TOTAL) (03/31/2018 11:33 AM) + +---------+ + | Component | Value | Ref Range | + +---------+ + | GLUCOSE, PLASMA | 90 | 70 - 99 mg/dL | | (LAB) | | | + +---------+ + | BUN, PLASMA (LAB) | 13 | 6 - 20 mg/dL | + +---------+ + | CREATININE PLASMA | 0.70 | 0.60 - 1.10 mg/dL | | (LAB) | | | + +---------+ + | EGFR - | >60 | >60 mL/min | | AUSTRALIAN | | | + +---------+ + | EGFR NON | >60 | >60 mL/min | | -AUSTRALIAN | | | + +---------+ + | SODIUM, PLASMA (LAB) | 145 | 136 - 145 mmol/L | + +---------+ + | POTASSIUM, PLASMA | 4.2 | 3.4 - 5.0 mmol/L | | (LAB) | | | + +---------+ + | CHLORIDE, PLASMA | 111 (H) | 97 - 108 mmol/L | | (LAB) | | | + +---------+ + | TOTAL CO2, PLASMA | 29 | 21 - 32 mmol/L | | (LAB) | | | + +---------+ + | CALCIUM, PLASMA | 8.4 (L) | 8.6 - 10.2 mg/dL | | (LAB) | | | + +---------+ + | CALCIUM(ALB | 9.5 | 8.6 - 10.2 mg/dL | | CORRECTED) | | | + +---------+ + | BILIRUBIN TOTAL | 0.2 (L) | 0.3 - 1.2 mg/dL | + +---------+ + | TOTAL PROTEIN, | 5.3 (L) | 6.4 - 8.2 g/dL | | PLASMA (LAB) | | | + +---------+ + | ALBUMIN, PLASMA | 2.6 (L) | 3.5 - 4.7 g/dL | | (LAB) | | | + +---------+ + | ALK PHOS | 55 | 42 - 98 U/L | + +---------+ + | AST(SGOT) | 20 | <=41 U/L | + +---------+ + | ALT (SGPT) | 25 | <=60 U/L | + +---------+ + | ANION GAP | 5 | 4 - 11 mmol/L | + +---------+ + | ANION GAP(ALB | 8 | 4 - 11 mmol/L | | CORRECTED) | | | + +---------+ + | POTASSIUM CMNT | No Hemo | | + +---------+ + | BILI T CMNT | No Hemo | | + +---------+ + | AST CMNT | No Hemo | | + +---------+ + + + + | Specimen | Performing Laboratory | + + + | Blood | [facility], CORE [address] | | | [place] [address] | + + + + + | [...] | | muscle-wasting diseses | + + COAGULOPATHY PANEL (INR,APTT,FIBRINOGEN) (03/31/2018 11:33 AM) + + + + | Component | Value | Ref Range | + + + + | INR | 1.03 | 0.90 - 1.20 INR | + + + + | APTT | 29.5 | 26.0 - 36.0 seconds | + + + + | FIBRINOGEN LEVEL | 471 (H)Comment: New Reference Ranges as of | 150 - 450 mg/dL | | | 01/06/2018. | | + + + + + + + | Specimen | Performing Laboratory | + + + | Blood | [facility], CORE [address] | | | [place] [address] | + + + + + | Narrative | + + | INR Therapeutic ranges for full anticoagulation: INR for Venous | | Thromboembolism (2.0 - 3.0) INR INR for most patients with | | mech. valves (2.5 - 3.5) INR APTT values for monitoring heparin therapy may be | | affected by specimens processed >1 hour after collection. APTT Therapeutic | | Range: (75 - 120) sec Heparin levels | | of 0.35 - 0.7 U/mL | + + CRISTIANO IGG (03/31/2018 11:33 AM) + + + + | Component | Value | Ref Range | + + + + | BRIE, IGG | Negative | | + + + + + + + | Specimen | Performing Laboratory | + + + | Blood | [facility], TRANSFUSION MEDICINE [address] [facility] | | | [place] [address] | + + + HAPTOGLOBIN (03/31/2018 11:33 AM) + +-------+ + | Component | Value | Ref Range | + +-------+ + | HAPTOGLOBIN | 187 | 30 - 200 mg/dL | + +-------+ + + + + | Specimen | Performing Laboratory | + + + | Blood | [facility], CORE [address] | | | [place] [address] | + + + LDH TOTAL, PLASMA (03/31/2018 11:33 AM) + +---------+ + | Component | Value | Ref Range | + +---------+ + | LD TOTAL, PLASMA | 281 (H) | <=250 U/L | + +---------+ + | LD CMNT | No Hemo | | + +---------+ + + + + | Specimen | Performing Laboratory | + + + | Blood | [facility], CORE [address] | | | [place] [address] | + + + PRODUCT - RED CELLS LEUKOREDUCED (03/31/2018 5:58 AM) + + + + | Component | Value | Ref Range | + + + + | PRODUCT DESCRIPTION | -1 RED BLOOD CELL ADENINE-SALINE ADDED | | | | LEUKOCYTE | | + + + + | PRODUCT UNIT # | [id number] | | + + + + | UNIT ABO | A | | + + + + | UNIT RH | POS | | + + + + | STATUS OF UNIT | Presumed Transfused | | + + + + | EXPIRATION DATE | [id number] | | + + + + | BLOOD TYPE BARCODE | 6200 | | + + + + | BLOOD PRODUCT CODE | [id number] | | + + + + + + + | Specimen | Performing Laboratory | + + + | | [facility], TRANSFUSION MEDICINE [address] | | | [place] [address] | + + + PRODUCT - RED CELLS LEUKOREDUCED (03/31/2018 5:58 AM) + + + + | Component | Value | Ref Range | + + + + | PRODUCT DESCRIPTION | -1 RED BLOOD CELL ADENINE-SALINE ADDED | | | | LEUKOCYTE | | + + + + | PRODUCT UNIT # | [id number] | | + + + + | UNIT ABO | A | | + + + + | UNIT RH | POS | | + + + + | STATUS OF UNIT | Presumed Transfused | | + + + + | EXPIRATION DATE | [id number] | | + + + + | BLOOD TYPE BARCODE | 6200 | | + + + + | BLOOD PRODUCT CODE | [id number] | | + + + + + + + | Specimen | Performing Laboratory | + + + | | [facility], TRANSFUSION MEDICINE [address] | | | [place] [address] | + + + PRODUCT - RED CELLS LEUKOREDUCED (03/31/2018 5:58 AM) + + + + | Component | Value | Ref Range | + + + + | PRODUCT DESCRIPTION | -1 RED BLOOD CELL ADENINE-SALINE ADDED | | | | LEUKOCYTE | | + + + + | PRODUCT UNIT # | [id number] | | + + + + | UNIT ABO | A | | + + + + | UNIT RH | POS | | + + + + | STATUS OF UNIT | Returned to Blood Bank | | + + + + | EXPIRATION DATE | [id number] | | + + + + | BLOOD TYPE BARCODE | 6200 | | + + + + | BLOOD PRODUCT CODE | [id number] | | + + + + + + + | Specimen | Performing Laboratory | + + + | | [facility], TRANSFUSION MEDICINE [address] | | | [address] [address] | + + + MANUAL DIFFERENTIAL (03/31/2018 4:53 AM) + + + + | Component | Value | Ref Range | + + + + | NEUTROPHIL % | 79.1 (H) | 50.0 - 70.0 % | + + + + | LYMPHOCYTE % | 7.0 (L) | 18.0 - 42.0 % | + + + + | MONOCYTE % | 3.5 | 3.5 - 9.0 % | + + + + | EOSINOPHIL % | 0.0 (L) | 1.0 - 3.0 % | + + + + | BASOPHIL % | 0.9 | 0.0 - 2.0 % | + + + + | IG% | 8.7 (H)Comment: Increased immature | 0.0 - 1.0 % | | | granulocytes(IG)define a left shift.IGs | | | | include metamyelocytes, myelocytes and | | | | promyelocytes. Bands are included in the | | | | neutrophil count, not the IG count, except | | | | in neonates <=60 days old where bands are | | | | reported in a manual diff. | | + + + + | REACTIVE LYMPHS % | 0.9 | 0.0 - 10.0 % | + + + + | NEUTROPHIL # | 13.80 (H) | 1.80 - 7.70 K/cu mm | + + + + | LYMPHOCYTE # | 1.22 | 1.00 - 4.80 K/cu mm | + + + + | MONOCYTE # | 0.60 | 0.10 - 0.90 K/cu mm | + + + + | EOSINOPHIL # | 0.00 | 0.00 - 0.50 K/cu mm | + + + + | BASOPHIL # | 0.15 (H) | 0.00 - 0.10 K/cu mm | + + + + | IG# | 1.52 (H) | 0.00 - 0.10 K/cu mm | + + + + | REACTIVE LYMPHS # | 0.15 | K/cu mm | + + + + + + + | Specimen | Performing Laboratory | + + + | Blood | [facility], CORE [address] | | | [place] [address] | + + + + + | Narrative | + + | New pediatric reference ranges for Lymphocyte % in effect February 13, 2018. | | Increased immature granulocytes(IG)define a left shift.IGs include metamyelocytes, | | myelocytes and promyelocytes. Bands are included in the neutrophil count, not the IG | | count, except in neonates <=60 days old where bands are reported in a manual diff. | + + DIFFERENTIAL, ADD ON (03/31/2018 4:53 AM) + + + | Specimen | Performing Laboratory | + + + | Blood | [facility], [address] | | | [place] [address] | + + + + + | Narrative | + + | New reference ranges for MCV, MCHC, PLT, IG% and IG# effective 01/09/2018 | + + DIFFERENTIAL, ADD ON (03/31/2018 4:53 AM) + + + | Specimen | Performing Laboratory | + + + | Blood | | + + + + + | Narrative | + + | The following orders were created for panel order DIFFERENTIAL, ADD ON. | | Procedure | | Abnormality Status | | --------- | | ------ DIFFERENTIAL, | | ADD ON[[id number]] Final | | result MANUAL | | DIFFERENTIAL[[id number]] Abnormal Final | | result Please view results for these tests on the | | individual orders. | + + CBC (HEMOGRAM) ONLY (03/31/2018 4:53 AM) + + + + | Component | Value | Ref Range | + + + + | WHITE CELL COUNT | 17.54 (H) | 3.50 - 10.80 K/cu mm | + + + + | RED CELL COUNT | 1.56 (L) | 4.00 - 5.20 M/cu mm | + + + + | HEMOGLOBIN | 4.9 (LL) | 12.0 - 16.0 g/dL | + + + + | HEMATOCRIT | 15.4 (LL) | 36.0 - 46.0 % | + + + + | MCV | 98.7 | 80.0 - 100.0 fL | + + + + | MCHC | 31.8 (L) | 32.0 - 36.0 g/dL | + + + + | RDW SD | 52.9 (H) | 35.1 - 46.3 fL | + + + + | PLATELET COUNT | 269 | 150 - 400 K/cu mm | + + + + | MPV | 10.2 | 9.7 - 12.3 fL | + + + + | NRBC% | 2.2 (H) | 0.0 - 0.3 % | + + + + | NRBC# | 0.39 (H) | 0.00 - 0.02 K/cu mm | + + + + + + + | Specimen | Performing Laboratory | + + + | Blood | [facility], [address] | | | [place] [address] | + + + + + | Narrative | + + | New reference ranges for MCV, MCHC, PLT, IG% and IG# effective 01/09/2018 | + + BASIC METABOLIC SET (NA, K, CL, TCO2, BUN, CR, GLU, CA) (03/31/2018 4:53 AM) + +---------+ + | Component | Value | Ref Range | + +---------+ + | GLUCOSE, PLASMA | 91 | 70 - 99 mg/dL | | (LAB) | | | + +---------+ + | BUN, PLASMA (LAB) | 12 | 6 - 20 mg/dL | + +---------+ + | CREATININE PLASMA | 0.67 | 0.60 - 1.10 mg/dL | | (LAB) | | | + +---------+ + | EGFR - | >60 | >60 mL/min | | AUSTR[place]IAN | | | + +---------+ + | EGFR NON | >60 | >60 mL/min | | -AUSTRALIAN | | | + +---------+ + | SODIUM, PLASMA (LAB) | 144 | 136 - 145 mmol/L | + +---------+ + | POTASSIUM, PLASMA | 4.3 | 3.4 - 5.0 mmol/L | | (LAB) | | | + +---------+ + | CHLORIDE, PLASMA | 110 (H) | 97 - 108 mmol/L | | (LAB) | | | + +---------+ + | TOTAL CO2, PLASMA | 27 | 21 - 32 mmol/L | | (LAB) | | | + +---------+ + | CALCIUM, PLASMA | 7.9 (L) | 8.6 - 10.2 mg/dL | | (LAB) | | | + +---------+ + | ANION GAP | 7 | 4 - 11 mmol/L | + +---------+ + | POTASSIUM CMNT | No Hemo | | + +---------+ + + + + | Specimen | Performing Laboratory | + + + | Blood | [facility], [address] | | | [place] [address] | + + + + + | [...] | | muscle-wasting diseses | + + CBC ONLY (03/31/2018 4:53 AM) + + + | Specimen | Performing Laboratory | + + + | Blood | | + + + + + | Narrative | + + | The following orders were created for panel order CBC ONLY. | | Procedure | | Abnormality Status | | --------- | | ------ CBC (HEMOGRAM) | | ONLY[[id number]] Abnormal Final | | result Please view results for these tests on the | | individual orders. | + + FERRITIN (03/31/2018 4:53 AM) + + + + | Component | Value | Ref Range | + + + + | FERRITIN | 322 (H)Comment: Male and Female >18 years: | 50 - 200 ng/mL | | | <20 ng/mL: Consistant | | | | with iron deficiency 21-50 | | | | ng/mL: Possible iron deficiency | | | | 51-99 ng/mL: Iron deficiency | | | | unlikely unless inflammation present | | | | or p | | | | atient >65 years of age 100-200 | | | | ng/mL: Normal, not consistent with | | | | iron deficiency >200 ng/mL: | | | | If transferrin saturation >45%, consider | | | | hemochromatosis | | + + + + + + + | Specimen | Performing Laboratory | + + + | Blood | [facility], [address]ORE [address] [place] [address] | | | [place] [address] | + + + CAPILLARY BLOOD GLUCOSE (NO CHG), POC (03/30/2018 1:30 PM) + +---------+ + | Component | Value | Ref Range | + +---------+ + | BLOOD GLUCOSE, POC | 135 (H) | 70 - 99 mg/dL | + +---------+ + + + + | Specimen | Performing Laboratory | + + + | | [facility], POINT OF CARE TESTS [address] | | | [place] [address] | + + + CBC (HEMOGRAM) ONLY (03/30/2018 6:19 AM) + + + + | Component | Value | Ref Range | + + + + | WHITE CELL COUNT | 19.18 (H) | 3.50 - 10.80 K/cu mm | + + + + | RED CELL COUNT | 2.37 (L) | 4.00 - 5.20 M/cu mm | + + + + | HEMOGLOBIN | 7.2 (L) | 12.0 - 16.0 g/dL | + + + + | HEMATOCRIT | 22.6 (L) | 36.0 - 46.0 % | + + + + | MCV | 95.4 | 80.0 - 100.0 fL | + + + + | MCHC | 31.9 (L) | 32.0 - 36.0 g/dL | + + + + | RDW SD | 49.6 (H) | 35.1 - 46.3 fL | + + + + | PLATELET COUNT | 195 | 150 - 400 K/cu mm | + + + + | MPV | 10.6 | 9.7 - 12.3 fL | + + + + | NRBC% | 2.9 (H) | 0.0 - 0.3 % | + + + + | NRBC# | 0.55 (H) | 0.00 - 0.02 K/cu mm | + + + + + + + | Specimen | Performing Laboratory | + + + | Blood | [facility], [address] | | | [place] [address] | + + + + + | Narrative | + + | New reference ranges for MCV, MCHC, PLT, IG% and IG# effective 01/09/2018 | + + BASIC METABOLIC SET (NA, K, CL, TCO2, BUN, CR, GLU, CA) (03/30/2018 6:19 AM) + +---------+ + | Component | Value | Ref Range | + +---------+ + | GLUCOSE, PLASMA | 87 | 70 - 99 mg/dL | | (LAB) | | | + +---------+ + | BUN, PLASMA (LAB) | 12 | 6 - 20 mg/dL | + +---------+ + | CREATININE PLASMA | 0.72 | 0.60 - 1.10 mg/dL | | (LAB) | | | + +---------+ + | EGFR - | >60 | >60 mL/min | | [place]IAN | | | + +---------+ + | EGFR NON | >60 | >60 mL/min | | -AUSTRALIAN | | | + +---------+ + | SODIUM, PLASMA (LAB) | 145 | 136 - 145 mmol/L | + +---------+ + | POTASSIUM, PLASMA | 4.2 | 3.4 - 5.0 mmol/L | | (LAB) | | | + +---------+ + | CHLORIDE, PLASMA | 111 (H) | 97 - 108 mmol/L | | (LAB) | | | + +---------+ + | TOTAL CO2, PLASMA | 28 | 21 - 32 mmol/L | | (LAB) | | | + +---------+ + | CALCIUM, PLASMA | 8.1 (L) | 8.6 - 10.2 mg/dL | | (LAB) | | | + +---------+ + | ANION GAP | 6 | 4 - 11 mmol/L | + +---------+ + | POTASSIUM CMNT | No Hemo | | + +---------+ + + + + | Specimen | Performing Laboratory | + + + | Blood | [facility], [address] | | | [place] [address] | + + + + + | [...] | | muscle-wasting diseses | + + CBC ONLY (03/30/2018 6:19 AM) + + + | Specimen | Performing Laboratory | + + + | Blood | | + + + + + | Narrative | + + | The following orders were created for panel order CBC ONLY. | | Procedure | | Abnormality Status | | --------- | | ------ CBC (HEMOGRAM) | | ONLY[[id number]] Abnormal Final | | result Please view results for these tests on the | | individual orders. | + + CBC (HEMOGRAM) ONLY (03/29/2018 9:43 PM) + + + + | Component | Value | Ref Range | + + + + | WHITE CELL COUNT | 22.18 (H) | 3.50 - 10.80 K/cu mm | + + + + | RED CELL COUNT | 2.39 (L) | 4.00 - 5.20 M/cu mm | + + + + | HEMOGLOBIN | 7.4 (L) | 12.0 - 16.0 g/dL | + + + + | HEMATOCRIT | 23.0 (L) | 36.0 - 46.0 % | + + + + | MCV | 96.2 | 80.0 - 100.0 fL | + + + + | MCHC | 32.2 | 32.0 - 36.0 g/dL | + + + + | RDW SD | 49.1 (H) | 35.1 - 46.3 fL | + + + + | PLATELET COUNT | 189Comment: Giant platelets present. Few | 150 - 400 K/cu mm | | | platelet clumps present. | | + + + + | MPV | 10.4 | 9.7 - 12.3 fL | + + + + | NRBC% | 2.6 (H) | 0.0 - 0.3 % | + + + + | NRBC# | 0.57 (H) | 0.00 - 0.02 K/cu mm | + + + + + + + | Specimen | Performing Laboratory | + + + | Blood | [facility], [address] | | | [place] [address] | + + + + + | Narrative | + + | New reference ranges for MCV, MCHC, PLT, IG% and IG# effective 01/09/2018 | + + CBC ONLY (03/29/2018 9:43 PM) + + + | Specimen | Performing Laboratory | + + + | Blood | | + + + + + | Narrative | + + | The following orders were created for panel order CBC ONLY. | | Procedure | | Abnormality Status | | --------- | | ------ CBC (HEMOGRAM) | | ONLY[[id number]] Abnormal Final | | result Please view results for these tests on the | | individual orders. | + + ANTIBODY SCREEN (03/29/2018 1:32 PM) + + + + | Component | Value | Ref Range | + + + + | Antibody Screen | Negative | | + + + + + + + | Specimen | Performing Laboratory | + + + | Blood | [facility], [facility]SF[facility]ION MEDICINE [address] | | | [place] [address] | + + + ABO & RH TYPE (03/29/2018 1:32 PM) + + + + | Component | Value | Ref Range | + + + + | ABO Group | A | | + + + + | Rh Type | Positive | | + + + + + + + | Specimen | Performing Laboratory | + + + | Blood | [facility], TRANSFUSION MEDICINE [address] | | | [place] [address] | + + + TYPE AND SCREEN (03/29/2018 1:32 PM) + + + | Specimen | Performing Laboratory | + + + | Blood | | + + + + + | Narrative | + + | The following orders were created for panel order TYPE AND SCREEN. | | Procedure | | Abnormality Status | | --------- | | ------ ABO & RH | | TYPE[[id number]] F | | inal result ANTIBODY | | SCREEN[[id number]] Fin | | al result Please view results for these tests on the | | individual orders. | + + PRODUCT - RED CELLS LEUKOREDUCED (03/29/2018 12:58 PM) + + + + | Component | Value | Ref Range | + + + + | PRODUCT DESCRIPTION | -1 RED BLOOD CELL ADENINE-SALINE ADDED | | | | LEUKOCYTE | | + + + + | PRODUCT UNIT # | [id number] | | + + + + | UNIT ABO | A | | + + + + | UNIT RH | POS | | + + + + | STATUS OF UNIT | Presumed Transfused | | + + + + | EXPIRATION DATE | [id number] | | + + + + | BLOOD TYPE BARCODE | 6200 | | + + + + | BLOOD PRODUCT CODE | [id number] | | + + + + + + + | Specimen | Performing Laboratory | + + + | | [facility], TRANSF[facility]ION MEDICINE [address] | | | [place] [address] | + + + CAPILLARY BLOOD GLUCOSE (NO CHG), POC (03/29/2018 12:12 PM) + +-------+ + | Component | Value | Ref Range | + +-------+ + | BLOOD GLUCOSE, POC | 87 | 70 - 99 mg/dL | + +-------+ + + + + | Specimen | Performing Laboratory | + + + | | [facility], POINT OF CARE TESTS [address] | | | [place] [address] | + + + CBC (HEMOGRAM) ONLY (03/29/2018 7:08 AM) + + + + | Component | Value | Ref Range | + + + + | WHITE CELL COUNT | 20.97 (H) | 3.50 - 10.80 K/cu mm | + + + + | RED CELL COUNT | 2.18 (L) | 4.00 - 5.20 M/cu mm | + + + + | HEMOGLOBIN | 6.8 (L) | 12.0 - 16.0 g/dL | + + + + | HEMATOCRIT | 20.9 (L) | 36.0 - 46.0 % | + + + + | MCV | 95.9 | 80.0 - 100.0 fL | + + + + | MCHC | 32.5 | 32.0 - 36.0 g/dL | + + + + | RDW SD | 51.2 (H) | 35.1 - 46.3 fL | + + + + | PLATELET COUNT | 155 | 150 - 400 K/cu mm | + + + + | MPV | 10.9 | 9.7 - 12.3 fL | + + + + | NRBC% | 1.8 (H) | 0.0 - 0.3 % | + + + + | NRBC# | 0.37 (H) | 0.00 - 0.02 K/cu mm | + + + + + + + | Specimen | Performing Laboratory | + + + | Blood | [facility], [address] [address] | | | [place] [address] | + + + + + | Narrative | + + | New reference ranges for MCV, MCHC, PLT, IG% and IG# effective 01/09/2018 | + + CBC ONLY (03/29/2018 7:08 AM) + + + | Specimen | Performing Laboratory | + + + | Blood | | + + + + + | Narrative | + + | The following orders were created for panel order CBC ONLY. | | Procedure | | Abnormality Status | | --------- | | ------ CBC (HEMOGRAM) | | ONLY[[id number]] Abnormal Final | | result Please view results for these tests on the | | individual orders. | + + BASIC METABOLIC SET (NA, K, CL, TCO2, BUN, CR, GLU, CA) (03/29/2018 7:08 AM) + +---------+ + | Component | Value | Ref Range | + +---------+ + | GLUCOSE, PLASMA | 96 | 70 - 99 mg/dL | | (LAB) | | | + +---------+ + | BUN, PLASMA (LAB) | 14 | 6 - 20 mg/dL | + +---------+ + | CREATININE PLASMA | 0.73 | 0.60 - 1.10 mg/dL | | (LAB) | | | + +---------+ + | EGFR - | >60 | >60 mL/min | | AUSTR[place]IAN | | | + +---------+ + | EGFR NON | >60 | >60 mL/min | | -AUSTRALIAN | | | + +---------+ + | SODIUM, PLASMA (LAB) | 147 (H) | 136 - 145 mmol/L | + +---------+ + | POTASSIUM, PLASMA | 4.1 | 3.4 - 5.0 mmol/L | | (LAB) | | | + +---------+ + | CHLORIDE, PLASMA | 113 (H) | 97 - 108 mmol/L | | (LAB) | | | + +---------+ + | TOTAL CO2, PLASMA | 27 | 21 - 32 mmol/L | | (LAB) | | | + +---------+ + | CALCIUM, PLASMA | 7.9 (L) | 8.6 - 10.2 mg/dL | | (LAB) | | | + +---------+ + | ANION GAP | 7 | 4 - 11 mmol/L | + +---------+ + | POTASSIUM CMNT | No Hemo | | + +---------+ + + + + | Specimen | Performing Laboratory | + + + | Blood | [facility], CORE [address] | | | [place] [address] | + + + + + | Narrative | + + | Please draw vancomycin trough prior to the morning dose, level ordered for 07:30 03/29 | | GFR is estimated using the MDRD [...] | | muscle-wasting diseses | + + VANCOMYCIN, TROUGH (03/29/2018 7:08 AM) + + + + | Component | Value | Ref Range | + + + + | VANCOMYCIN, TROUGH | 22.0 (H) | 10.0 - 20.0 ug/mL | + + + + + + + | Specimen | Performing Laboratory | + + + | Blood | [facility], [facility] [address] | | | [place] [address] | + + + + + | Narrative | + + | Please draw vancomycin trough prior to the morning dose, level ordered for 03/29 | + + RBC MORPHOLOGY (03/28/2018 6:54 AM) + + + + | Component | Value | Ref Range | + + + + | DOHLE BODIES | Present | | + + + + | TOXIC GRANULATION | Present | | + + + + | POLYCHROMASIA | 1+ (<1-2cells/HPF) | | + + + + + + + | Specimen | Performing Laboratory | + + + | Blood | [facility], CORE [address] | | | [facility] [place] [address] | + + + CBC AND AUTO DIFF (03/28/2018 6:54 AM) + + + + | Component | Value | Ref Range | + + + + | WHITE CELL COUNT | 19.93 (H) | 3.50 - 10.80 K/cu mm | + + + + | RED CELL COUNT | 3.05 (L) | 4.00 - 5.20 M/cu mm | + + + + | HEMOGLOBIN | 9.2 (L) | 12.0 - 16.0 g/dL | + + + + | HEMATOCRIT | 28.3 (L) | 36.0 - 46.0 % | + + + + | MCV | 92.8 | 80.0 - 100.0 fL | + + + + | MCHC | 32.5 | 32.0 - 36.0 g/dL | + + + + | RDW SD | 48.5 (H) | 35.1 - 46.3 fL | + + + + | PLATELET COUNT | 106 (L)Comment: Macro platelets present. | 150 - 400 K/cu mm | + + + + | MPV | 10.5 | 9.7 - 12.3 fL | + + + + | NRBC% | 0.8 (H) | 0.0 - 0.3 % | + + + + | NRBC# | 0.16 (H) | 0.00 - 0.02 K/cu mm | + + + + | NEUTROPHIL % | 65.3 | 50.0 - 70.0 % | + + + + | LYMPHOCYTE % | 6.1 (L) | 18.0 - 42.0 % | + + + + | MONOCYTE % | 6.9 | 3.5 - 9.0 % | + + + + | EOS % | 0.0 (L) | 1.0 - 3.0 % | + + + + | BASO % | 0.2 | 0.0 - 2.0 % | + + + + | IG% | 21.5 (H)Comment: Increased immature | 0.0 - 1.0 % | | | granulocytes (IG) define a left shift. | | | | Immature granulocytes (IG) are an automated | | | | count of metamyelocytes, myelocytes and | | | | promyelocytes. Bands are not included in | | | | the IG count. Bands are included in the | | | | neutrophil count. | | + + + + | NEUTROPHIL # | 13.02 (H) | 1.80 - 7.70 K/cu mm | + + + + | LYMPHOCYTE # | 1.21 | 1.00 - 4.80 K/cu mm | + + + + | MONOCYTE # | 1.37 (H) | 0.10 - 0.90 K/cu mm | + + + + | EOS # | 0.00 | 0.00 - 0.50 K/cu mm | + + + + | BASO # | 0.04 | 0.00 - 0.10 K/cu mm | + + + + | IG# | 4.29 (H) | 0.00 - 0.10 K/cu mm | + + + + + + + | Specimen | Performing Laboratory | + + + | Blood | [facility], [facility] [address] | | | [place] [address] | + + + + + | Narrative | + + | New pediatric reference ranges for Lymphocyte % in effect February 13, 2018. New | | reference ranges for MCV, MCHC, PLT, IG% and IG# effective 01/09/2018 Increased | | immature granulocytes (IG) define a left shift. Immature granulocytes (IG) are an | | automated count of metamyelocytes, myelocytes and promyelocytes. Bands are not included | | in the IG count. Bands are included in the neutrophil count. | + + CBC, WITH DIFFERENTIAL (03/28/2018 6:54 AM) + + + | Specimen | Performing Laboratory | + + + | Blood | | + + + + + | Narrative | + + | The following orders were created for panel order CBC, WITH DIFFERENTIAL. | | Procedure | | Abnormality Status | | --------- | | ------ CBC AND AUTO | | DIFF[[id number]] Abnormal Final | | result RBC | | MORPHOLOGY[[id number]] | | Final result Please view results for these tests on the | | individual orders. | + + COMPLETE METABOLIC SET (NA,K,CL,CO2,BUN,CREAT,GLUC,CA,AST,ALT,BILI TOTAL,ALK PHOS,ALB,PROT TOTAL) (03/28/2018 6:54 AM) + + + + | Component | Value | Ref Range | + + + + | GLUCOSE, PLASMA | 187 (H) | 70 - 99 mg/dL | | (LAB) | | | + + + + | BUN, PLASMA (LAB) | 11 | 6 - 20 mg/dL | + + + + | CREATININE PLASMA | 0.58 (L) | 0.60 - 1.10 mg/dL | | (LAB) | | | + + + + | EGFR - | >60 | >60 mL/min | | AUSTR[place]IAN | | | + + + + | EGFR NON | >60 | >60 mL/min | | -AUSTRALIAN | | | + + + + | SODIUM, PLASMA (LAB) | 148 (H) | 136 - 145 mmol/L | + + + + | POTASSIUM, PLASMA | 3.7 | 3.4 - 5.0 mmol/L | | (LAB) | | | + + + + | CHLORIDE, PLASMA | 114 (H) | 97 - 108 mmol/L | | (LAB) | | | + + + + | TOTAL CO2, PLASMA | 26 | 21 - 32 mmol/L | | (LAB) | | | + + + + | CALCIUM, PLASMA | 7.8 (L) | 8.6 - 10.2 mg/dL | | (LAB) | | | + + + + | CALCIUM(ALB | 9.2 | 8.6 - 10.2 mg/dL | | CORRECTED) | | | + + + + | BILIRUBIN TOTAL | 0.1 (L) | 0.3 - 1.2 mg/dL | + + + + | TOTAL PROTEIN, | 5.2 (L) | 6.4 - 8.2 g/dL | | PLASMA (LAB) | | | + + + + | ALBUMIN, PLASMA | 2.2 (L) | 3.5 - 4.7 g/dL | | (LAB) | | | + + + + | ALK PHOS | 59 | 42 - 98 U/L | + + + + | AST(SGOT) | 17 | <=41 U/L | + + + + | ALT (SGPT) | 21 | <=60 U/L | + + + + | ANION GAP | 8 | 4 - 11 mmol/L | + + + + | ANION GAP(ALB | 12 (H) | 4 - 11 mmol/L | | CORRECTED) | | | + + + + | POTASSIUM CMNT | No Hemo | | + + + + | BILI T CMNT | No Hemo | | + + + + | AST CMNT | No Hemo | | + + + + + + + | Specimen | Performing Laboratory | + + + | Blood | [facility], [facility] [address] | | | [place] [address] | + + + + + | [...] | | muscle-wasting diseses | + + CBC (HEMOGRAM) ONLY (03/27/2018 6:10 PM) + + + + | Component | Value | Ref Range | + + + + | WHITE CELL COUNT | 27.12 (H) | 3.50 - 10.80 K/cu mm | + + + + | RED CELL COUNT | 2.41 (L) | 4.00 - 5.20 M/cu mm | + + + + | HEMOGLOBIN | 7.4 (L) | 12.0 - 16.0 g/dL | + + + + | HEMATOCRIT | 22.0 (L) | 36.0 - 46.0 % | + + + + | MCV | 91.3 | 80.0 - 100.0 fL | + + + + | MCHC | 33.6 | 32.0 - 36.0 g/dL | + + + + | RDW SD | 46.6 (H) | 35.1 - 46.3 fL | + + + + | PLATELET COUNT | 127 (L) | 150 - 400 K/cu mm | + + + + | MPV | 10.8 | 9.7 - 12.3 fL | + + + + | NRBC% | 0.8 (H) | 0.0 - 0.3 % | + + + + | NRBC# | 0.22 (H) | 0.00 - 0.02 K/cu mm | + + + + + + + | Specimen | Performing Laboratory | + + + | Blood | [facility], [address] | | | [place] [address] | + + + + + | Narrative | + + | New reference ranges for MCV, MCHC, PLT, IG% and IG# effective 01/09/2018 | + + CBC ONLY (03/27/2018 6:10 PM) + + + | Specimen | Performing Laboratory | + + + | Blood | | + + + + + | Narrative | + + | The following orders were created for panel order CBC ONLY. | | Procedure | | Abnormality Status | | --------- | | ------ CBC (HEMOGRAM) | | ONLY[[id number]] Abnormal Final | | result Please view results for these tests on the | | individual orders. | + + OPERATION RECORD (03/27/2018 12:10 PM) + + | Procedure Note | + + | Lynda Basurto MD - 03/27/2018 12:10 PM PDT Date of Service: 03/27/2018 | | Attending Surgeon: Lynda Basurto MD Day Spa Manager(s): Odalys | | Mike Stafford PA-C. Please note no other qualified embalmer assistant was available. | | Preoperative Diagnosis: [...] closure of the fascia. This was a 10-Kittitian | | channel drain. Please note, the [...] 03/27/2018 | | 11:18:37DT: 03/27/2018 12:10:06Job #: [id number] | + + CAPILLARY BLOOD GLUCOSE (NO CHG), POC (03/27/2018 12:06 PM) + +---------+ + | Component | Value | Ref Range | + +---------+ + | BLOOD GLUCOSE, POC | 125 (H) | 70 - 99 mg/dL | + +---------+ + + + + | Specimen | Performing Laboratory | + + + | | [facility]ARE TEST[facility] [address] | | | [place] [address] | + + + PROCEDURE NOTE (03/27/2018 11:37 AM) + + | Narrative | + + | Odalys Stafford PA-C 03/27/2018 11:39 AM INPATIENT BRIEF OPERATIVE NOTE | | Procedure Date: 03/27/2018 Author: ODALYS STAFFORD PA-C Attending | | Physician: Dr. Lynda Basurto Assistants: ODALYS STAFFORD PA-C Preoperative | | Diagnosis: infected postoperative wound, left BKA Postoperative Diagnosis: same | | Procedure Performed: Irrigation and debridement left leg wound, wound closure, | | placement of incisional wound vac. Estimated Blood Loss: 200 mL Fluids: see | | anesthesia note Specimens: cultures Complications: none Drains: 10 Fr | | Channel drain Disposition: floor -weight bearing status: as tolerated -ROM: as | | tolerated -discharge status: pending -antibiotics: vanco, cefepime -F/u: 2 weeks | | | + + CAPILLARY BLOOD GLUCOSE (NO CHG), POC (03/27/2018 10:44 AM) + +---------+ + | Component | Value | Ref Range | + +---------+ + | BLOOD GLUCOSE, POC | 106 (H) | 70 - 99 mg/dL | + +---------+ + + + + | Specimen | Performing Laboratory | + + + | | [facility] [address] | | | [place] [address] | + + + CULTURE, TISSUE (03/27/2018 10:27 AM) + + + + | Component | Value | Ref Range | + + + + | CULTURE RESULT | Escherichia coli (A) | | + + + + + + + | Specimen | Performing Laboratory | + + + | Tissue - Leg | [facility] [place] [address] [place], [place] | | | [address] | + + + + + | Narrative | + + | Culture Report: Rare Escherichia coli Refer to culture collected 03/24/18 at | | 11:56 AM for susceptibilities No anaerobic organisms isolated Gram Stain: No | | squamous epithelial cells Rare polymorphonuclear cells No organisms seen | + + CULTURE, TISSUE (03/27/2018 10:27 AM) + + + | Specimen | Performing Laboratory | + + + | Tissue - Leg | [facility] [place] [address] [place], [place] | | | [address] | + + + + + | Narrative | + + | Culture Report: No growth No anaerobic organisms isolated Gram Stain: No | | squamous epithelial cells Few polymorphonuclear cells No organisms seen | + + CULTURE, TISSUE (03/27/2018 10:24 AM) + + + + | Component | Value | Ref Range | + + + + | CULTURE RESULT | Escherichia coli (A) | | + + + + + + + | Specimen | Performing Laboratory | + + + | Tissue - Leg | [facility] [address] [place], [place] | | | [address] | + + + + + | Narrative | + + | Culture Report: Rare Escherichia coli Refer to culture collected 03/24/18 at | | 11:56 AM for susceptibilities No anaerobic organisms isolated Gram Stain: No | | squamous epithelial cells No polymorphonuclear cells No organisms seen | + + CULTURE, TISSUE (03/27/2018 10:23 AM) + + + + | Component | Value | Ref Range | + + + + | CULTURE RESULT | Escherichia coli (A) | | + + + + + + + | Specimen | Performing Laboratory | + + + | Tissue - Leg | [facility] [place] [address] [place], [place] | | | [address] | + + + + + | Narrative | + + | Culture Report: Rare Escherichia coli Refer to culture collected 03/24/18 at | | 11:56 AM for susceptibilities No anaerobic organisms isolated Gram Stain: No | | squamous epithelial cells No polymorphonuclear cells No organisms seen | + + CULTURE, TISSUE (03/27/2018 9:32 AM) + + + + | Component | Value | Ref Range | + + + + | CULTURE RESULT | Escherichia coli (A) | | + + + + + + + | Specimen | Performing Laboratory | + + + | Tissue - Leg | [facility] [place] [address] [place] [employer] [place], [place] | | | [address] | + + + + + | Narrative | + + | Culture Report: Rare Escherichia coli Refer to culture collected 03/24/18 at | | 11:56 AM for susceptibilities No anaerobic organisms isolated Gram Stain: No | | squamous epithelial cells Rare polymorphonuclear cells No organisms seen | + + CAPILLARY BLOOD GLUCOSE (NO CHG), POC (03/27/2018 8:22 AM) + +-------+ + | Component | Value | Ref Range | + +-------+ + | BLOOD GLUCOSE, POC | 88 | 70 - 99 mg/dL | + +-------+ + + + + | Specimen | Performing Laboratory | + + + | | [facility] [address] | | | [place] [address] | + + + RBC MORPHOLOGY (03/27/2018 3:56 AM) + +---------+ + | Component | Value | Ref Range | + +---------+ + | DOHLE BODIES | Present | | + +---------+ + | TOXIC GRANULATION | Present | | + +---------+ + + + + | Specimen | Performing Laboratory | + + + | Blood | [facility] [address] [address] | | | [place] [address] | + + + MANUAL DIFFERENTIAL (03/27/2018 3:56 AM) + + + + | Component | Value | Ref Range | + + + + | NEUTROPHIL % | 66.9 | 50.0 - 70.0 % | + + + + | LYMPHOCYTE % | 12.2 (L) | 18.0 - 42.0 % | + + + + | MONOCYTE % | 6.1 | 3.5 - 9.0 % | + + + + | EOSINOPHIL % | 0.0 (L) | 1.0 - 3.0 % | + + + + | BASOPHIL % | 0.9 | 0.0 - 2.0 % | + + + + | IG% | 13.0 (H)Comment: Increased immature | 0.0 - 1.0 % | | | granulocytes(IG)define a left shift.IGs | | | | include metamyelocytes, myelocytes and | | | | promyelocytes. Bands are included in the | | | | neutrophil count, not the IG count, except | | | | in neonates <=60 days old where bands are | | | | reported in a manual diff. | | + + + + | ATYPICAL CELL % | 0.9 (H) | 0.0 % | + + + + | NEUTROPHIL # | 15.46 (H) | 1.80 - 7.70 K/cu mm | + + + + | LYMPHOCYTE # | 2.82 | 1.00 - 4.80 K/cu mm | + + + + | MONOCYTE # | 1.41 (H) | 0.10 - 0.90 K/cu mm | + + + + | EOSINOPHIL # | 0.00 | 0.00 - 0.50 K/cu mm | + + + + | BASOPHIL # | 0.21 (H) | 0.00 - 0.10 K/cu mm | + + + + | IG# | 3.00 (H) | 0.00 - 0.10 K/cu mm | + + + + | ATYPICAL CELLS # | 0.21 | K/cu mm | + + + + + + + | Specimen | Performing Laboratory | + + + | Blood | [facility], [address] | | | [place] [address] | + + + + + | Narrative | + + | New pediatric reference ranges for Lymphocyte % in effect February 13, 2018. | | Increased immature granulocytes(IG)define a left shift.IGs include metamyelocytes, | | myelocytes and promyelocytes. Bands are included in the neutrophil count, not the IG | | count, except in neonates <=60 days old where bands are reported in a manual diff. | + + CBC AND AUTO DIFF (03/27/2018 3:56 AM) + + + + | Component | Value | Ref Range | + + + + | WHITE CELL COUNT | 23.11 (H) | 3.50 - 10.80 K/cu mm | + + + + | RED CELL COUNT | 2.66 (L) | 4.00 - 5.20 M/cu mm | + + + + | HEMOGLOBIN | 8.0 (L) | 12.0 - 16.0 g/dL | + + + + | HEMATOCRIT | 23.9 (L) | 36.0 - 46.0 % | + + + + | MCV | 89.8 | 80.0 - 100.0 fL | + + + + | MCHC | 33.5 | 32.0 - 36.0 g/dL | + + + + | RDW SD | 46.0 | 35.1 - 46.3 fL | + + + + | PLATELET COUNT | 95 (L) | 150 - 400 K/cu mm | + + + + | MPV | 11.0 | 9.7 - 12.3 fL | + + + + | NRBC% | 1.6 (H) | 0.0 - 0.3 % | + + + + | NRBC# | 0.37 (H) | 0.00 - 0.02 K/cu mm | + + + + + + + | Specimen | Performing Laboratory | + + + | Blood | [facility], [address] | | | [place] [address] | + + + + + | Narrative | + + | New reference ranges for MCV, MCHC, PLT, IG% and IG# effective 01/09/2018 | + + COMPLETE METABOLIC SET (NA,K,CL,CO2,BUN,CREAT,GLUC,CA,AST,ALT,BILI TOTAL,ALK PHOS,ALB,PROT TOTAL) (03/27/2018 3:56 AM) + +---------+ + | Component | Value | Ref Range | + +---------+ + | GLUCOSE, PLASMA | 103 (H) | 70 - 99 mg/dL | | (LAB) | | | + +---------+ + | BUN, PLASMA (LAB) | 13 | 6 - 20 mg/dL | + +---------+ + | CREATININE PLASMA | 0.72 | 0.60 - 1.10 mg/dL | | (LAB) | | | + +---------+ + | EGFR - | >60 | >60 mL/min | | [place]IAN | | | + +---------+ + | EGFR NON | >60 | >60 mL/min | | -AUSTRALIAN | | | + +---------+ + | SODIUM, PLASMA (LAB) | 147 (H) | 136 - 145 mmol/L | + +---------+ + | POTASSIUM, PLASMA | 3.3 (L) | 3.4 - 5.0 mmol/L | | (LAB) | | | + +---------+ + | CHLORIDE, PLASMA | 111 (H) | 97 - 108 mmol/L | | (LAB) | | | + +---------+ + | TOTAL CO2, PLASMA | 29 | 21 - 32 mmol/L | | (LAB) | | | + +---------+ + | CALCIUM, PLASMA | 8.0 (L) | 8.6 - 10.2 mg/dL | | (LAB) | | | + +---------+ + | CALCIUM(ALB | 9.2 | 8.6 - 10.2 mg/dL | | CORRECTED) | | | + +---------+ + | BILIRUBIN TOTAL | 0.2 (L) | 0.3 - 1.2 mg/dL | + +---------+ + | TOTAL PROTEIN, | 5.8 (L) | 6.4 - 8.2 g/dL | | PLASMA (LAB) | | | + +---------+ + | ALBUMIN, PLASMA | 2.5 (L) | 3.5 - 4.7 g/dL | | (LAB) | | | + +---------+ + | ALK PHOS | 59 | 42 - 98 U/L | + +---------+ + | AST(SGOT) | 19 | <=41 U/L | + +---------+ + | ALT (SGPT) | 23 | <=60 U/L | + +---------+ + | ANION GAP | 7 | 4 - 11 mmol/L | + +---------+ + | ANION GAP(ALB | 10 | 4 - 11 mmol/L | | CORRECTED) | | | + +---------+ + | POTASSIUM CMNT | No Hemo | | + +---------+ + | BILI T CMNT | No Hemo | | + +---------+ + | AST CMNT | No Hemo | | + +---------+ + + + + | Specimen | Performing Laboratory | + + + | Blood | [facility], [address] [place] [address] | | | [place] [address] | + + + + + | [...] | | muscle-wasting diseses | + + CBC, WITH DIFFERENTIAL (03/27/2018 3:56 AM) + + + | Specimen | Performing Laboratory | + + + | Blood | | + + + + + | Narrative | + + | The following orders were created for panel order CBC, WITH DIFFERENTIAL. | | Procedure | | Abnormality Status | | --------- | | ------ CBC AND AUTO | | DIFF[[id number]] Abnormal Final | | result MANUAL | | DIFFERENTIAL[[id number]] Abnormal Final | | result RBC | | MORPHOLOGY[[id number]] | | Final result Please view results for these tests on the | | individual orders. | + + CBC (HEMOGRAM) ONLY (03/26/2018 6:57 AM) + + + + | Component | Value | Ref Range | + + + + | WHITE CELL COUNT | 14.47 (H) | 3.50 - 10.80 K/cu mm | + + + + | RED CELL COUNT | 3.09 (L) | 4.00 - 5.20 M/cu mm | + + + + | HEMOGLOBIN | 9.2 (L) | 12.0 - 16.0 g/dL | + + + + | HEMATOCRIT | 27.3 (L) | 36.0 - 46.0 % | + + + + | MCV | 88.3 | 80.0 - 100.0 fL | + + + + | MCHC | 33.7 | 32.0 - 36.0 g/dL | + + + + | RDW SD | 44.7 | 35.1 - 46.3 fL | + + + + | PLATELET COUNT | 56 (L) | 150 - 400 K/cu mm | + + + + | MPV | 11.7 | 9.7 - 12.3 fL | + + + + | NRBC% | 1.5 (H) | 0.0 - 0.3 % | + + + + | NRBC# | 0.21 (H) | 0.00 - 0.02 K/cu mm | + + + + + + + | Specimen | Performing Laboratory | + + + | Blood | [facility], [address] [address] | | | [place] [address] | + + + + + | Narrative | + + | New reference ranges for MCV, MCHC, PLT, IG% and IG# effective 01/09/2018 | + + CBC ONLY (03/26/2018 6:57 AM) + + + | Specimen | Performing Laboratory | + + + | Blood | | + + + + + | Narrative | + + | The following orders were created for panel order CBC ONLY. | | Procedure | | Abnormality Status | | --------- | | ------ CBC (HEMOGRAM) | | ONLY[[id number]] Abnormal Final | | result Please view results for these tests on the | | individual orders. | + + LDH TOTAL, PLASMA (03/26/2018 6:56 AM) + +---------+ + | Component | Value | Ref Range | + +---------+ + | LD TOTAL, PLASMA | 273 (H) | <=250 U/L | + +---------+ + | LD CMNT | No Hemo | | + +---------+ + + + + | Specimen | Performing Laboratory | + + + | Blood | [facility], [address] | | | [place] [address] | + + + COMPLETE METABOLIC SET (NA,K,CL,CO2,BUN,CREAT,GLUC,CA,AST,ALT,BILI TOTAL,ALK PHOS,ALB,PROT TOTAL) (03/26/2018 6:56 AM) + +---------+ + | Component | Value | Ref Range | + +---------+ + | GLUCOSE, PLASMA | 107 (H) | 70 - 99 mg/dL | | (LAB) | | | + +---------+ + | BUN, PLASMA (LAB) | 15 | 6 - 20 mg/dL | + +---------+ + | CREATININE PLASMA | 0.65 | 0.60 - 1.10 mg/dL | | (LAB) | | | + +---------+ + | EGFR - | >60 | >60 mL/min | | [place]IAN | | | + +---------+ + | EGFR NON | >60 | >60 mL/min | | -AUSTRALIAN | | | + +---------+ + | SODIUM, PLASMA (LAB) | 144 | 136 - 145 mmol/L | + +---------+ + | POTASSIUM, PLASMA | 3.5 | 3.4 - 5.0 mmol/L | | (LAB) | | | + +---------+ + | CHLORIDE, PLASMA | 108 | 97 - 108 mmol/L | | (LAB) | | | + +---------+ + | TOTAL CO2, PLASMA | 30 | 21 - 32 mmol/L | | (LAB) | | | + +---------+ + | CALCIUM, PLASMA | 7.8 (L) | 8.6 - 10.2 mg/dL | | (LAB) | | | + +---------+ + | CALCIUM(ALB | 9.0 | 8.6 - 10.2 mg/dL | | CORRECTED) | | | + +---------+ + | BILIRUBIN TOTAL | 0.2 (L) | 0.3 - 1.2 mg/dL | + +---------+ + | TOTAL PROTEIN, | 5.7 (L) | 6.4 - 8.2 g/dL | | PLASMA (LAB) | | | + +---------+ + | ALBUMIN, PLASMA | 2.5 (L) | 3.5 - 4.7 g/dL | | (LAB) | | | + +---------+ + | ALK PHOS | 64 | 42 - 98 U/L | + +---------+ + | AST(SGOT) | 14 | <=41 U/L | + +---------+ + | ALT (SGPT) | 21 | <=60 U/L | + +---------+ + | ANION GAP | 6 | 4 - 11 mmol/L | + +---------+ + | ANION GAP(ALB | 9 | 4 - 11 mmol/L | | CORRECTED) | | | + +---------+ + | POTASSIUM CMNT | No Hemo | | + +---------+ + | BILI T CMNT | No Hemo | | + +---------+ + | AST CMNT | No Hemo | | + +---------+ + + + + | Specimen | Performing Laboratory | + + + | Blood | [facility], [address] [place] [address] | | | [place] [address] | + + + + + | [...] | | muscle-wasting diseses | + + PRODUCT - RED CELLS LEUKOREDUCED (03/26/2018 3:39 AM) + + + + | Component | Value | Ref Range | + + + + | PRODUCT DESCRIPTION | -1 RED BLOOD CELL ADENINE-SALINE ADDED | | | | LEUKOCYTE | | + + + + | PRODUCT UNIT # | [id number] | | + + + + | UNIT ABO | A | | + + + + | UNIT RH | POS | | + + + + | STATUS OF UNIT | Presumed Transfused | | + + + + | EXPIRATION DATE | [id number] | | + + + + | BLOOD TYPE BARCODE | 6200 | | + + + + | BLOOD PRODUCT CODE | [id number] | | + + + + + + + | Specimen | Performing Laboratory | + + + | | [facility], TRANSFUSION MEDICINE [address] [place] [address] | | | [place] [address] | + + + VANCOMYCIN, TROUGH (03/26/2018 1:30 AM) + + + + | Component | Value | Ref Range | + + + + | VANCOMYCIN, TROUGH | 20.3 (H) | 10.0 - 20.0 ug/mL | + + + + + + + | Specimen | Performing Laboratory | + + + | Blood | [facility], [address] | | | [place] [address] | + + + CBC (HEMOGRAM) ONLY (03/25/2018 11:01 PM) + + + + | Component | Value | Ref Range | + + + + | WHITE CELL COUNT | 14.95 (H) | 3.50 - 10.80 K/cu mm | + + + + | RED CELL COUNT | 2.19 (L) | 4.00 - 5.20 M/cu mm | + + + + | HEMOGLOBIN | 6.6 (L) | 12.0 - 16.0 g/dL | + + + + | HEMATOCRIT | 19.2 (L) | 36.0 - 46.0 % | + + + + | MCV | 87.7 | 80.0 - 100.0 fL | + + + + | MCHC | 34.4 | 32.0 - 36.0 g/dL | + + + + | RDW SD | 42.8 | 35.1 - 46.3 fL | + + + + | PLATELET COUNT | 54 (L) | 150 - 400 K/cu mm | + + + + | MPV | 11.0 | 9.7 - 12.3 fL | + + + + | NRBC% | 0.7 (H) | 0.0 - 0.3 % | + + + + | NRBC# | 0.10 (H) | 0.00 - 0.02 K/cu mm | + + + + + + + | Specimen | Performing Laboratory | + + + | Blood | [facility], [address] [address] | | | [place] [address] | + + + + + | Narrative | + + | New reference ranges for MCV, MCHC, PLT, IG% and IG# effective 01/09/2018 | + + CBC ONLY (03/25/2018 11:01 PM) + + + | Specimen | Performing Laboratory | + + + | Blood | | + + + + + | Narrative | + + | The following orders were created for panel order CBC ONLY. | | Procedure | | Abnormality Status | | --------- | | ------ CBC (HEMOGRAM) | | ONLY[[id number]] Abnormal Final | | result Please view results for these tests on the | | individual orders. | + + PRODUCT - RED CELLS LEUKOREDUCED (03/25/2018 7:05 PM) + + + + | Component | Value | Ref Range | + + + + | PRODUCT DESCRIPTION | -1 RED BLOOD CELL ADENINE-SALINE ADDED | | | | LEUKOCYTE | | + + + + | PRODUCT UNIT # | [id number] | | + + + + | UNIT ABO | A | | + + + + | UNIT RH | POS | | + + + + | STATUS OF UNIT | Returned to Blood Bank | | + + + + | EXPIRATION DATE | [id number] | | + + + + | BLOOD TYPE BARCODE | 6200 | | + + + + | BLOOD PRODUCT CODE | [id number] | | + + + + + + + | Specimen | Performing Laboratory | + + + | | [facility], TRANSF[facility]ION MEDICINE [address] [facility] [address] | | | [place] [address] | + + + RBC MORPHOLOGY (03/25/2018 6:03 PM) + +---------+ + | Component | Value | Ref Range | + +---------+ + | DOHLE BODIES | Present | | + +---------+ + | TOXIC GRANULATION | Present | | + +---------+ + + + + | Specimen | Performing Laboratory | + + + | Blood | [facility], [address] | | | [place] [address] | + + + MANUAL DIFFERENTIAL (03/25/2018 6:03 PM) + + + + | Component | Value | Ref Range | + + + + | NEUTROPHIL % | 69.6 | 50.0 - 70.0 % | + + + + | LYMPHOCYTE % | 14.8 (L) | 18.0 - 42.0 % | + + + + | MONOCYTE % | 4.3 | 3.5 - 9.0 % | + + + + | EOSINOPHIL % | 0.0 (L) | 1.0 - 3.0 % | + + + + | BASOPHIL % | 0.0 | 0.0 - 2.0 % | + + + + | IG% | 10.4 (H)Comment: Increased immature | 0.0 - 1.0 % | | | granulocytes(IG)define a left shift.IGs | | | | include metamyelocytes, myelocytes and | | | | promyelocytes. Bands are included in the | | | | neutrophil count, not the IG count, except | | | | in neonates <=60 days old where bands are | | | | reported in a manual diff. | | + + + + | ATYPICAL CELL % | 0.9 (H) | 0.0 % | + + + + | NEUTROPHIL # | 10.53 (H) | 1.80 - 7.70 K/cu mm | + + + + | LYMPHOCYTE # | 2.24 | 1.00 - 4.80 K/cu mm | + + + + | MONOCYTE # | 0.65 | 0.10 - 0.90 K/cu mm | + + + + | EOSINOPHIL # | 0.00 | 0.00 - 0.50 K/cu mm | + + + + | BASOPHIL # | 0.00 | 0.00 - 0.10 K/cu mm | + + + + | IG# | 1.57 (H) | 0.00 - 0.10 K/cu mm | + + + + | ATYPICAL CELLS # | 0.14 | K/cu mm | + + + + + + + | Specimen | Performing Laboratory | + + + | Blood | [facility], [address] | | | [place] [address] | + + + + + | Narrative | + + | New pediatric reference ranges for Lymphocyte % in effect February 13, 2018. | | Increased immature granulocytes(IG)define a left shift.IGs include metamyelocytes, | | myelocytes and promyelocytes. Bands are included in the neutrophil count, not the IG | | count, except in neonates <=60 days old where bands are reported in a manual diff. | + + RETICULOCYTE COUNT (03/25/2018 6:03 PM) + +---------+ + | Component | Value | Ref Range | + +---------+ + | RETICULOCYTE COUNT | 0.5 | 0.5 - 1.5 % | + +---------+ + | RETIC ABSOLUTE # | 9.3 (L) | 10.0 - 90.0 K/cu mm | + +---------+ + + + + | Specimen | Performing Laboratory | + + + | Blood | [facility], [address] [address] | | | [place] [address] | + + + RETICULOCYTE COUNT, BLOOD (03/25/2018 6:03 PM) + + + | Specimen | Performing Laboratory | + + + | Blood | | + + + + + | Narrative | + + | The following orders were created for panel order RETICULOCYTE COUNT, BLOOD. | | Procedure | | Abnormality Status | | --------- | | ------ RETICULOCYTE | | COUNT[[id number]] Abnormal Final | | result Please view results for these tests on the | | individual orders. | + + CBC AND AUTO DIFF (03/25/2018 6:03 PM) + + + + | Component | Value | Ref Range | + + + + | WHITE CELL COUNT | 15.13 (H) | 3.50 - 10.80 K/cu mm | + + + + | RED CELL COUNT | 2.06 (L) | 4.00 - 5.20 M/cu mm | + + + + | HEMOGLOBIN | 6.1 (L) | 12.0 - 16.0 g/dL | + + + + | HEMATOCRIT | 18.0 (LL) | 36.0 - 46.0 % | + + + + | MCV | 87.4 | 80.0 - 100.0 fL | + + + + | MCHC | 33.9 | 32.0 - 36.0 g/dL | + + + + | RDW SD | 43.0 | 35.1 - 46.3 fL | + + + + | PLATELET COUNT | 55 (L)Comment: Macro platelets present. | 150 - 400 K/cu mm | + + + + | MPV | 11.4 | 9.7 - 12.3 fL | + + + + | NRBC% | 0.6 (H) | 0.0 - 0.3 % | + + + + | NRBC# | 0.09 (H) | 0.00 - 0.02 K/cu mm | + + + + + + + | Specimen | Performing Laboratory | + + + | Blood | [facility], [place] [address] | | | [place] [address] | + + + + + | Narrative | + + | New reference ranges for MCV, MCHC, PLT, IG% and IG# effective 01/09/2018 | + + CBC, WITH DIFFERENTIAL (03/25/2018 6:03 PM) + + + | Specimen | Performing Laboratory | + + + | Blood | | + + + + + | Narrative | + + | The following orders were created for panel order CBC, WITH DIFFERENTIAL. | | Procedure | | Abnormality Status | | --------- | | ------ CBC AND AUTO | | DIFF[[id number]] Abnormal Final | | result MANUAL | | DIFFERENTIAL[[id number]] Abnormal Final | | result RBC | | MORPHOLOGY[[id number]] | | Final result Please view results for these tests on the | | individual orders. | + + RBC MORPHOLOGY (03/25/2018 6:23 AM) + + + + | Component | Value | Ref Range | + + + + | DOHLE BODIES | Present | | + + + + | TOXIC GRANULATION | Present | | + + + + | ANISOCYTOSIS | 1+(10-25cells/HPF) | | + + + + | MICROCYTOSIS | 1+(10-25cells/HPF) | | + + + + | SCHISTOCYTES | 1+ (<1-2cells/HPF) | | + + + + | TEAR DROP CELLS | 1+ (<1-2cells/HPF) | | + + + + + + + | Specimen | Performing Laboratory | + + + | Blood | [facility], [facility] [address] | | | [place] [address] | + + + CBC AND AUTO DIFF (03/25/2018 6:23 AM) + + + + | Component | Value | Ref Range | + + + + | WHITE CELL COUNT | 14.42 (H) | 3.50 - 10.80 K/cu mm | + + + + | RED CELL COUNT | 2.04 (L) | 4.00 - 5.20 M/cu mm | + + + + | HEMOGLOBIN | 6.1 (L) | 12.0 - 16.0 g/dL | + + + + | HEMATOCRIT | 17.8 (LL) | 36.0 - 46.0 % | + + + + | MCV | 87.3 | 80.0 - 100.0 fL | + + + + | MCHC | 34.3 | 32.0 - 36.0 g/dL | + + + + | RDW SD | 43.8 | 35.1 - 46.3 fL | + + + + | PLATELET COUNT | 69 (L) | 150 - 400 K/cu mm | + + + + | MPV | 10.5 | 9.7 - 12.3 fL | + + + + | NRBC% | 0.8 (H) | 0.0 - 0.3 % | + + + + | NRBC# | 0.12 (H) | 0.00 - 0.02 K/cu mm | + + + + | NEUTROPHIL % | 56.9 | 50.0 - 70.0 % | + + + + | LYMPHOCYTE % | 8.5 (L) | 18.0 - 42.0 % | + + + + | MONOCYTE % | 17.7 (H) | 3.5 - 9.0 % | + + + + | EOS % | 0.1 (L) | 1.0 - 3.0 % | + + + + | BASO % | 0.9 | 0.0 - 2.0 % | + + + + | IG% | 15.9 (H)Comment: Increased immature | 0.0 - 1.0 % | | | granulocytes (IG) define a left shift. | | | | Immature granulocytes (IG) are an automated | | | | count of metamyelocytes, myelocytes and | | | | promyelocytes. Bands are not included in | | | | the IG count. Bands are included in the | | | | neutrophil count. | | + + + + | NEUTROPHIL # | 8.21 (H) | 1.80 - 7.70 K/cu mm | + + + + | LYMPHOCYTE # | 1.22 | 1.00 - 4.80 K/cu mm | + + + + | MONOCYTE # | 2.55 (H) | 0.10 - 0.90 K/cu mm | + + + + | EOS # | 0.02 | 0.00 - 0.50 K/cu mm | + + + + | BASO # | 0.13 (H) | 0.00 - 0.10 K/cu mm | + + + + | IG# | 2.29 (H) | 0.00 - 0.10 K/cu mm | + + + + + + + | Specimen | Performing Laboratory | + + + | Blood | [facility], [address] | | | [place] [address] | + + + + + | Narrative | + + | New pediatric reference ranges for Lymphocyte % in effect February 13, 2018. New | | reference ranges for MCV, MCHC, PLT, IG% and IG# effective 01/09/2018 Increased | | immature granulocytes (IG) define a left shift. Immature granulocytes (IG) are an | | automated count of metamyelocytes, myelocytes and promyelocytes. Bands are not included | | in the IG count. Bands are included in the neutrophil count. | + + COMPLETE METABOLIC SET (NA,K,CL,CO2,BUN,CREAT,GLUC,CA,AST,ALT,BILI TOTAL,ALK PHOS,ALB,PROT TOTAL) (03/25/2018 6:23 AM) + +---------+ + | Component | Value | Ref Range | + +---------+ + | GLUCOSE, PLASMA | 156 (H) | 70 - 99 mg/dL | | (LAB) | | | + +---------+ + | BUN, PLASMA (LAB) | 12 | 6 - 20 mg/dL | + +---------+ + | CREATININE PLASMA | 0.65 | 0.60 - 1.10 mg/dL | | (LAB) | | | + +---------+ + | EGFR - | >60 | >60 mL/min | | [place]STR[place]IAN | | | + +---------+ + | EGFR NON | >60 | >60 mL/min | | -AUSTR[place]IAN | | | + +---------+ + | SODIUM, PLASMA (LAB) | 138 | 136 - 145 mmol/L | + +---------+ + | POTASSIUM, PLASMA | 3.5 | 3.4 - 5.0 mmol/L | | (LAB) | | | + +---------+ + | CHLORIDE, PLASMA | 103 | 97 - 108 mmol/L | | (LAB) | | | + +---------+ + | TOTAL CO2, PLASMA | 31 | 21 - 32 mmol/L | | (LAB) | | | + +---------+ + | CALCIUM, PLASMA | 7.9 (L) | 8.6 - 10.2 mg/dL | | (LAB) | | | + +---------+ + | CALCIUM(ALB | 9.0 | 8.6 - 10.2 mg/dL | | CORRECTED) | | | + +---------+ + | BILIRUBIN TOTAL | 0.3 | 0.3 - 1.2 mg/dL | + +---------+ + | TOTAL PROTEIN, | 6.0 (L) | 6.4 - 8.2 g/dL | | PLASMA (LAB) | | | + +---------+ + | ALBUMIN, PLASMA | 2.6 (L) | 3.5 - 4.7 g/dL | | (LAB) | | | + +---------+ + | ALK PHOS | 45 | 42 - 98 U/L | + +---------+ + | AST(SGOT) | 16 | <=41 U/L | + +---------+ + | ALT (SGPT) | 24 | <=60 U/L | + +---------+ + | ANION GAP | 4 | 4 - 11 mmol/L | + +---------+ + | ANION GAP(ALB | 7 | 4 - 11 mmol/L | | CORRECTED) | | | + +---------+ + | POTASSIUM CMNT | No Hemo | | + +---------+ + | BILI T CMNT | No Hemo | | + +---------+ + | AST CMNT | No Hemo | | + +---------+ + + + + | Specimen | Performing Laboratory | + + + | Blood | [facility], [place] [address] | | | [place] [address] | + + + + + | [...] | | muscle-wasting diseses | + + CBC, WITH DIFFERENTIAL (03/25/2018 6:23 AM) + + + | Specimen | Performing Laboratory | + + + | Blood | | + + + + + | Narrative | + + | The following orders were created for panel order CBC, WITH DIFFERENTIAL. | | Procedure | | Abnormality Status | | --------- | | ------ CBC AND AUTO | | DIFF[[id number]] Abnormal Final | | result RBC | | MORPHOLOGY[[id number]] | | Final result Please view results for these tests on the | | individual orders. | + + PRODUCT - RED CELLS LEUKOREDUCED (03/25/2018 3:02 AM) + + + + | Component | Value | Ref Range | + + + + | PRODUCT DESCRIPTION | -1 RED BLOOD CELL ADENINE-SALINE ADDED | | | | LEUKOCYTE | | + + + + | PRODUCT UNIT # | [id number] | | + + + + | UNIT ABO | A | | + + + + | UNIT RH | POS | | + + + + | STATUS OF UNIT | Presumed Transfused | | + + + + | EXPIRATION DATE | [id number] | | + + + + | BLOOD TYPE BARCODE | 6200 | | + + + + | BLOOD PRODUCT CODE | [id number] | | + + + + + + + | Specimen | Performing Laboratory | + + + | | [facility], TRANSFUSION MEDICINE [address] | | | [place] [address] | + + + RBC MORPHOLOGY (03/25/2018 2:23 AM) + + + + | Component | Value | Ref Range | + + + + | DOHLE BODIES | Present | | + + + + | TOXIC GRANULATION | Present | | + + + + | ANISOCYTOSIS | 1+(10-25cells/HPF) | | + + + + | MICROCYTOSIS | 1+(10-25cells/HPF) | | + + + + | OVALOCYTES | 1+(10-25cells/HPF) | | + + + + + + + | Specimen | Performing Laboratory | + + + | Blood | [facility], [address] | | | [place], [place] [address] | + + + MANUAL DIFFERENTIAL (03/25/2018 2:23 AM) + + + + | Component | Value | Ref Range | + + + + | NEUTROPHIL % | 74.7 (H) | 50.0 - 70.0 % | + + + + | LYMPHOCYTE % | 12.1 (L) | 18.0 - 42.0 % | + + + + | MONOCYTE % | 10.8 (H) | 3.5 - 9.0 % | + + + + | EOSINOPHIL % | 0.0 (L) | 1.0 - 3.0 % | + + + + | BASOPHIL % | 0.0 | 0.0 - 2.0 % | + + + + | IG% | 2.4 (H)Comment: Increased immature | 0.0 - 1.0 % | | | granulocytes(IG)define a left shift.IGs | | | | include metamyelocytes, myelocytes and | | | | promyelocytes. Bands are included in the | | | | neutrophil count, not the IG count, except | | | | in neonates <=60 days old where bands are | | | | reported in a manual diff. | | + + + + | NEUTROPHIL # | 7.81 (H) | 1.80 - 7.70 K/cu mm | + + + + | LYMPHOCYTE # | 1.27 | 1.00 - 4.80 K/cu mm | + + + + | MONOCYTE # | 1.13 (H) | 0.10 - 0.90 K/cu mm | + + + + | EOSINOPHIL # | 0.00 | 0.00 - 0.50 K/cu mm | + + + + | BASOPHIL # | 0.00 | 0.00 - 0.10 K/cu mm | + + + + | IG# | 0.25 (H) | 0.00 - 0.10 K/cu mm | + + + + + + + | Specimen | Performing Laboratory | + + + | Blood | [facility], [address] | | | [place] [address] | + + + + + | Narrative | + + | New pediatric reference ranges for Lymphocyte % in effect February 13, 2018. | | Increased immature granulocytes(IG)define a left shift.IGs include metamyelocytes, | | myelocytes and promyelocytes. Bands are included in the neutrophil count, not the IG | | count, except in neonates <=60 days old where bands are reported in a manual diff. | + + CBC AND AUTO DIFF (03/25/2018 2:23 AM) + + + + | Component | Value | Ref Range | + + + + | WHITE CELL COUNT | 10.46 | 3.50 - 10.80 K/cu mm | + + + + | RED CELL COUNT | 1.70 (L) | 4.00 - 5.20 M/cu mm | + + + + | HEMOGLOBIN | 5.3 (LL) | 12.0 - 16.0 g/dL | + + + + | HEMATOCRIT | 14.9 (LL) | 36.0 - 46.0 % | + + + + | MCV | 87.6 | 80.0 - 100.0 fL | + + + + | MCHC | 35.6 | 32.0 - 36.0 g/dL | + + + + | RDW SD | 44.9 | 35.1 - 46.3 fL | + + + + | PLATELET COUNT | 69 (L)Comment: Macroplatelets present. | 150 - 400 K/cu mm | + + + + | MPV | 10.8 | 9.7 - 12.3 fL | + + + + | NRBC% | 0.7 (H) | 0.0 - 0.3 % | + + + + | NRBC# | 0.07 (H) | 0.00 - 0.02 K/cu mm | + + + + + + + | Specimen | Performing Laboratory | + + + | Blood | [facility], [facility] [place] [address] | | | [place] [address] | + + + + + | Narrative | + + | New reference ranges for MCV, MCHC, PLT, IG% and IG# effective 01/09/2018 | + + CBC, WITH DIFFERENTIAL (03/25/2018 2:23 AM) + + + | Specimen | Performing Laboratory | + + + | Blood | | + + + + + | Narrative | + + | The following orders were created for panel order CBC, WITH DIFFERENTIAL. | | Procedure | | Abnormality Status | | --------- | | ------ CBC AND AUTO | | DIFF[[id number]] Abnormal Final | | result MANUAL | | DIFFERENTIAL[[id number]] Abnormal Final | | result RBC | | MORPHOLOGY[[id number]] | | Final result Please view results for these tests on the | | individual orders. | + + VANCOMYCIN, TROUGH (03/24/2018 5:05 PM) + +-------+ + | Component | Value | Ref Range | + +-------+ + | VANCOMYCIN, TROUGH | 12.2 | 10.0 - 20.0 ug/mL | + +-------+ + + + + | Specimen | Performing Laboratory | + + + | Blood | [facility], CORE [address] | | | [place] [address] | + + + + + | Narrative | + + | Please draw Vancomycin trough immediately before the next dose. (~1630) Thank you! | + + DEBRIDEMENT OF BELOW KNEE AMPUTATION STUMP (03/24/2018 1:31 PM) + + | Narrative | + + | Macie Torre MD 03/24/2018 1:49 PM [facility] | | DEPARTMENT OF ORTHOPAEDICS & REHABILITATION OPERATIVE REPORT | | Patient Name: Tati | Minerva Cage Date of : 1985 Contract | | Serial Number:: [id number] Report Author: MACIE TORRE MD Procedure Date: | | 03/24/2018 Attending Physician: 1. MACIE TORRE MD Day Spa Manager(s): | | 1. Tsering Burciaga MD Preoperative Diagnosis(es): 1. Left BKA stump | | infection Postoperative Diagnosis(es): 1. Same Procedure(s) | | Performed: 1. I+D L BKA Anesthesia Type: General Estimated Blood | | Loss: 200cc IV Fluids: Please see anesthesia records Tourniquet Time: | | * No tourniquets in log * Complications: None Apparent Orthopaedic | | Implants: 1. none Specimens: 1. 6 cukltures Surgical Drains: VAC | | Indications for Procedure(s): Tati Cage is a 32 y.o. female with history of BKA | | and now drainage, redness, and proximal streaking. We discussed I+D with her | | primary surgeon and her and her family. I reviewed the planned procedure, | | alternatives the associated risks and answered questions. We discussed the risks of | | the procedure including but not limited to bleeding, infection, damage to | | nerves/tendons/vessels, possible need for further surgery, possible loss of limb and | | life, blood clots, and anesthesia complications. She expressed understanding in the | | presence of her family, and wishes to proceed. Surgical Findings In Brief: | | Healthy wound bed following debridement of skin, muscle and fascia. Wound size | | [id number] after tacking back fascia Application of VAC Description of the | | procedure(s) in detail: The patient was seen in the preoperative area where the | | consent form was reviewed and confirmed with the patient, the correct site was | | marked, and the patient freely assented to proceed with the procedure as planned. | | The patient was then brought back to the operating room. Anesthesia was induced without | | event. The patient was positioned appropriately in the supine position, and bony | | prominances were padded. A tourniquet was not placed around the thigh. The | | thigh was occluded with a 10-15 drape. The surgical site was prepped and draped in | | the usual sterile fashion. Prior to the beginning of the procedure the team | | paused to verify the patient's identity, as well as the procedure to be performed | | and the correct side/site. All equipment required was ready and | | available. Images were confirmed. The appropriate implants and instruments were | | available. Antibiotics were administered prior to incision. Sequential | | compression devices were placed prior to incision as well. Approach for BKA: The | | incision was planned and performed using a 10 blade was made through the skin and | | subcutaneous tissue. Sutures were removed. The eschar was debrided removing | | 1-1.5CM of skin. This tracked directly to fascia. There did not appear to be a | | tracking sinus to bone. The fascia was taken down to explore the deep | | compartment. There was necrotic muscle. This was debrided along with | | fascia. There was contractile pink muscle deep. 6 L saline were used to | | irrigate. Then the fascia was re-approximated with 0 proline X2 deep and then VAC | | sponge in the remaining wound [id number]. Excellent seal was attained. The | | patient was woken from anesthesia in the operating room and then transferred to the | | post anesthesia care unit in stable condition. At the end of the case the final | | instrument and sponge counts were correct. IMacie was present/available | | during the critical portions of the procedure. Disposition/Post operative plan: | | 1. Weight Bearing: NWB 2. Acute pain: IV/PO 3. Diet: Advance 4. PACU | | Disposition: Floor 5. Medications: Resume 6. VTE prophalaxis: Lovenox 7. | | Anticipated discharge: plan for return to OR on [facility] MACIE TORRE MD 03/24/2018, | | 1:33 PM | + + CAPILLARY BLOOD GLUCOSE (NO CHG), POC (03/24/2018 1:06 PM) + +---------+ + | Component | Value | Ref Range | + +---------+ + | BLOOD GLUCOSE, POC | 125 (H) | 70 - 99 mg/dL | + +---------+ + + + + | Specimen | Performing Laboratory | + + + | | [facility], POINT OF CARE TESTS [address] | | | [place] [address] | + + + SURGICAL PATHOLOGY (03/24/2018 11:59 AM) + + + + | Component | Value | Ref Range | + + + + | Clinical History | Infected BKA amp | | + + + + | Final Pathologic | A. Soft tissue, left below knee amputation | | | Diagnosis | site, debridement:- Fibroadipose tissue | | | | with fat necrosis and acute and chronic | | | | inflammation B. Leg, distal tibia, | | | | excision:- Viable bone with reactive | | | | changes- Marrow with mildly increased | | | | neutrophils, see note Note (part B): The | | | | marrow shows patchy mildly increased | | | | neutrophils and the bone shows reactive | | | | changes. The findings may be suggestive | | | | of acute osteomyelitis. Case seen | | | | by:Madie Madden MD - Surgical | | | | Pathology Fellow Vilma Ramírez MD - | | | | Pathologist My electronic signature | | | | indicates that I have personally reviewed | | | | all diagnostic slides, the gross and/or | | | | microscopic portion of this report and | | | | formulated the final diagnosis. | | + + + + | Gross Description | Received are 2 specimens fresh and | | | | subsequently fixed in formalin labeled with | | | | the patient's name (initials KSG) and | | | | . A. Leg, BKA | | | | tissue: Received labeled "leg BKA | | | | tissue-1" are 2 irregular wang-white soft | | | | tissue fragments ranging from 1.5-2.0 cm in | | | | greatest dimension. The specimen is | | | | entirely submitted in cassette A1. B. Leg, | | | | DISTAL TIBIA: Received labeled "leg distal | | | | tibia-2" is a 1.1 x 0.6 x 0.4 cm irregular | | | | pink-wang soft tissue fragment admixed with | | | | bone. The specimen is bisected and entirely | | | | submitted in cassette B1 following light | | | | decalcification. (ATR) | | + + + + | ANCILLARY | Analyte specific reagents are used in many | | | INFORMATION | laboratory tests necessary for standard | | | | medical care. This test was developed and | | | | its performance characteristics determined | | | | by [employer]. It has not been | | | | cleared or approved by the US Food and Drug | | | | Administration (FDA). FDA does not | | | | require this test to go through premarket | | | | FDA review. This test is used for clinical | | | | purposes. It should not be regarded as | | | | investigational or for research. This | | | | laboratory is certified under the Clinical | | | | Laboratory Improvement Amendments (CLIA) as | | | | qualified to perform high complexity | | | | clinical laboratory testing. | | + + + + + + + | Specimen | Performing Laboratory | + + + | Tissue - Leg | [facility] DEPARTMENT OF PATHOLOGY [address] | | | [place] [address] | + + + CULTURE, TISSUE (03/24/2018 11:58 AM) + + + + | Component | Value | Ref Range | + + + + | CULTURE RESULT | Escherichia coli (A) | | + + + + | CULTURE RESULT | Prevotella bivia (A) | | + + + + + + + | Specimen | Performing Laboratory | + + + | Tissue - Leg | [facility] [address] [place], [place] | | | [address] | + + + + + | Narrative | + + | Culture Report: 1+ Escherichia coli Refer to culture collected 03/24/18 at 11:56 AM | | for susceptibilities 1+ Prevotella bivia Gram Stain: No squamous epithelial | | cells Rare polymorphonuclear cells No organisms seen | + + CULTURE, TISSUE (03/24/2018 11:58 AM) + + + + | Component | Value | Ref Range | + + + + | CULTURE RESULT | Escherichia coli (A) | | + + + + | CULTURE RESULT | Coagulase negative staphylococcus species | | | | (A) | | + + + + | CULTURE RESULT | Prevotella bivia (A) | | + + + + + + + | Specimen | Performing Laboratory | + + + | Tissue - Leg | [facility] [address] [place], [place] | | | [address] | + + + + + | Narrative | + + | Culture Report: 2+ Escherichia coli Refer to culture collected 03/24/18 at 11:56 AM | | for susceptibilities 1+ Prevotella stanislavia Rare Coagulase negative Staphylococcus | | species Please contact the microbiology laboratory if further work up of this culture | | is needed. Gram Stain: No squamous epithelial cells No polymorphonuclear cells | | No organisms seen | + + CULTURE, TISSUE (03/24/2018 11:58 AM) + + + + | Component | Value | Ref Range | + + + + | CULTURE RESULT | Escherichia coli (A) | | + + + + | CULTURE RESULT | Prevotella bivia (A) | | + + + + + + + | Specimen | Performing Laboratory | + + + | Tissue - Leg | [facility] [place] [address] [place], [place] | | | [address] | + + + + + | Narrative | + + | Culture Report: 1+ Escherichia coli Refer to culture collected 03/24/18 at 11:56 AM | | for susceptibilities 1+ Prevotella bivia Gram Stain: No squamous epithelial | | cells No polymorphonuclear cells No organisms seen | + + CULTURE, TISSUE (03/24/2018 11:58 AM) + + + + | Component | Value | Ref Range | + + + + | CULTURE RESULT | Escherichia coli (A) | | + + + + | CULTURE RESULT | Enterococcus faecalis (A) | | + + + + | CULTURE RESULT | Prevotella bivia (A) | | + + + + + + + | Specimen | Performing Laboratory | + + + | Tissue - Leg | [facility] [address] [place], [place] | | | [address] | + + + + + | Narrative | + + | Culture Report: 1+ Escherichia coli Rare Enterococcus faecalis Refer to culture | | collected 03/24/18 at 11:56 AM for susceptibilities Rare Prevotella bivia Gram | | Stain: No squamous epithelial cells Rare polymorphonuclear cells No organisms seen | + + CULTURE, TISSUE (03/24/2018 11:56 AM) + + + + | Component | Value | Ref Range | + + + + | CULTURE RESULT | Escherichia coli (A) | | + + + + | CULTURE RESULT | Enterococcus faecalis (A) | | + + + + | CULTURE RESULT | Prevotella bivia (A) | | + + + + + + + | Specimen | Performing Laboratory | + + + | Tissue - Leg | [facility] [place] [address] [place], [place] | | | [address] | + + + + + | Narrative | + + | Culture Report: 1+ Escherichia coli Rare Enterococcus faecalis 1+ Prevotella | | bivia Gram Stain: No squamous epithelial cells No polymorphonuclear cells No | | organisms seen | + + + + + + [...] PRODUCT - PLATELET PHERESIS LEUKOREDUCED (03/24/2018 9:15 AM) + + + + | Component | Value | Ref Range | + + + + | PRODUCT DESCRIPTION | PLATELETS PHERESIS, LEUKOCYTE REDUCED, | | | | IRRADIATED | | + + + + | PRODUCT UNIT # | [id number] | | + + + + | UNIT ABO | A | | + + + + | UNIT RH | NEG | | + + + + | STATUS OF UNIT | Presumed Transfused | | + + + + | EXPIRATION DATE | [id number] | | + + + + | BLOOD TYPE BARCODE | 0600 | | + + + + | BLOOD PRODUCT CODE | [id number] | | + + + + + + + | Specimen | Performing Laboratory | + + + | | [facility], TRANSFUSION MEDICINE [address] | | | [place] [address] | + + + PRODUCT - RED CELLS LEUKOREDUCED (03/24/2018 9:15 AM) + + + + | Component | Value | Ref Range | + + + + | PRODUCT DESCRIPTION | -1 RED BLOOD CELL ADENINE-SALINE ADDED | | | | LEUKOCYTE | | + + + + | PRODUCT UNIT # | [id number] | | + + + + | UNIT ABO | A | | + + + + | UNIT RH | POS | | + + + + | STATUS OF UNIT | Presumed Transfused | | + + + + | EXPIRATION DATE | [id number] | | + + + + | BLOOD TYPE BARCODE | 6200 | | + + + + | BLOOD PRODUCT CODE | [id number] | | + + + + + + + | Specimen | Performing Laboratory | + + + | | [facility], TRANSFUSION MEDICINE [address] | | | [place] [address] | + + + PRODUCT - RED CELLS LEUKOREDUCED (03/24/2018 9:15 AM) + + + + | Component | Value | Ref Range | + + + + | PRODUCT DESCRIPTION | -1 RED BLOOD CELL ADENINE-SALINE ADDED | | | | LEUKOCYTE | | + + + + | PRODUCT UNIT # | [id number] | | + + + + | UNIT ABO | A | | + + + + | UNIT RH | POS | | + + + + | STATUS OF UNIT | Presumed Transfused | | + + + + | EXPIRATION DATE | [id number] | | + + + + | BLOOD TYPE BARCODE | 6200 | | + + + + | BLOOD PRODUCT CODE | [id number] | | + + + + + + + | Specimen | Performing Laboratory | + + + | | [facility], TRANSFUSION MEDICINE [address] | | | [place] [address] | + + + RBC MORPHOLOGY (03/24/2018 9:02 AM) + + + + | Component | Value | Ref Range | + + + + | DOHLE BODIES | Present | | + + + + | TOXIC GRANULATION | Present | | + + + + | ANISOCYTOSIS | 3+(>100cells/HPF) | | + + + + | MICROCYTOSIS | 3+(>100cells/HPF) | | + + + + + + + | Specimen | Performing Laboratory | + + + | Blood | [facility], [address] [address] [place] [address] | | | [place] [address] | + + + MANUAL DIFFERENTIAL (03/24/2018 9:02 AM) + + + + | Component | Value | Ref Range | + + + + | NEUTROPHIL % | 51.4 | 50.0 - 70.0 % | + + + + | LYMPHOCYTE % | 23.9 | 18.0 - 42.0 % | + + + + | MONOCYTE % | 18.3 (H) | 3.5 - 9.0 % | + + + + | EOSINOPHIL % | 0.0 (L) | 1.0 - 3.0 % | + + + + | BASOPHIL % | 0.0 | 0.0 - 2.0 % | + + + + | IG% | 5.5 (H)Comment: Increased immature | 0.0 - 1.0 % | | | granulocytes(IG)define a left shift.IGs | | | | include metamyelocytes, myelocytes and | | | | promyelocytes. Bands are included in the | | | | neutrophil count, not the IG count, except | | | | in neonates <=60 days old where bands are | | | | reported in a manual diff. | | + + + + | ATYPICAL CELL % | 0.9 (H)Comment: Atypical Cells with fine | 0.0 % | | | chromatin, high N-C ratio, prominent | | | | nucleoli and dark blue cytoplasm. | | + + + + | NEUTROPHIL # | 2.34 | 1.80 - 7.70 K/cu mm | + + + + | LYMPHOCYTE # | 1.09 | 1.00 - 4.80 K/cu mm | + + + + | MONOCYTE # | 0.83 | 0.10 - 0.90 K/cu mm | + + + + | EOSINOPHIL # | 0.00 | 0.00 - 0.50 K/cu mm | + + + + | BASOPHIL # | 0.00 | 0.00 - 0.10 K/cu mm | + + + + | IG# | 0.25 (H) | 0.00 - 0.10 K/cu mm | + + + + | ATYPICAL CELLS # | 0.04 | K/cu mm | + + + + + + + | Specimen | Performing Laboratory | + + + | Blood | [facility], [facility] [address] | | | [place] [address] | + + + + + | Narrative | + + | New pediatric reference ranges for Lymphocyte % in effect February 13, 2018. | | Increased immature granulocytes(IG)define a left shift.IGs include metamyelocytes, | | myelocytes and promyelocytes. Bands are included in the neutrophil count, not the IG | | count, except in neonates <=60 days old where bands are reported in a manual diff. | + + CBC AND AUTO DIFF (03/24/2018 9:02 AM) + + + + | Component | Value | Ref Range | + + + + | WHITE CELL COUNT | 4.56 | 3.50 - 10.80 K/cu mm | + + + + | RED CELL COUNT | 2.49 (L) | 4.00 - 5.20 M/cu mm | + + + + | HEMOGLOBIN | 7.4 (L) | 12.0 - 16.0 g/dL | + + + + | HEMATOCRIT | 21.5 (L) | 36.0 - 46.0 % | + + + + | MCV | 86.3 | 80.0 - 100.0 fL | + + + + | MCHC | 34.4 | 32.0 - 36.0 g/dL | + + + + | RDW SD | 44.0 | 35.1 - 46.3 fL | + + + + | PLATELET COUNT | 32 (L)Comment: Macroplatelets present. | 150 - 400 K/cu mm | + + + + | MPV | 11.1 | 9.7 - 12.3 fL | + + + + | NRBC% | 0.7 (H) | 0.0 - 0.3 % | + + + + | NRBC# | 0.03 (H) | 0.00 - 0.02 K/cu mm | + + + + + + + | Specimen | Performing Laboratory | + + + | Blood | [facility], CORE [address] | | | [place] [address] | + + + + + | Narrative | + + | New reference ranges for MCV, MCHC, PLT, IG% and IG# effective 01/09/2018 | + + COMPLETE METABOLIC SET (NA,K,CL,CO2,BUN,CREAT,GLUC,CA,AST,ALT,BILI TOTAL,ALK PHOS,ALB,PROT TOTAL) (03/24/2018 9:02 AM) + +---------+ + | Component | Value | Ref Range | + +---------+ + | GLUCOSE, PLASMA | 99 | 70 - 99 mg/dL | | (LAB) | | | + +---------+ + | BUN, PLASMA (LAB) | 9 | 6 - 20 mg/dL | + +---------+ + | CREATININE PLASMA | 0.62 | 0.60 - 1.10 mg/dL | | (LAB) | | | + +---------+ + | EGFR - | >60 | >60 mL/min | | [place]STR[place]IAN | | | + +---------+ + | EGFR NON | >60 | >60 mL/min | | -AUSTRALIAN | | | + +---------+ + | SODIUM, PLASMA (LAB) | 139 | 136 - 145 mmol/L | + +---------+ + | POTASSIUM, PLASMA | 2.7 (L) | 3.4 - 5.0 mmol/L | | (LAB) | | | + +---------+ + | CHLORIDE, PLASMA | 110 (H) | 97 - 108 mmol/L | | (LAB) | | | + +---------+ + | TOTAL CO2, PLASMA | 25 | 21 - 32 mmol/L | | (LAB) | | | + +---------+ + | CALCIUM, PLASMA | 7.3 (L) | 8.6 - 10.2 mg/dL | | (LAB) | | | + +---------+ + | CALCIUM(ALB | 8.6 | 8.6 - 10.2 mg/dL | | CORRECTED) | | | + +---------+ + | BILIRUBIN TOTAL | 0.4 | 0.3 - 1.2 mg/dL | + +---------+ + | TOTAL PROTEIN, | 5.5 (L) | 6.4 - 8.2 g/dL | | PLASMA (LAB) | | | + +---------+ + | ALBUMIN, PLASMA | 2.4 (L) | 3.5 - 4.7 g/dL | | (LAB) | | | + +---------+ + | ALK PHOS | 39 (L) | 42 - 98 U/L | + +---------+ + | AST(SGOT) | 10 | <=41 U/L | + +---------+ + | ALT (SGPT) | 16 | <=60 U/L | + +---------+ + | ANION GAP | 4 | 4 - 11 mmol/L | + +---------+ + | ANION GAP(ALB | 8 | 4 - 11 mmol/L | | CORRECTED) | | | + +---------+ + | POTASSIUM CMNT | No Hemo | | + +---------+ + | BILI T CMNT | No Hemo | | + +---------+ + | AST CMNT | No Hemo | | + +---------+ + + + + | Specimen | Performing Laboratory | + + + | Blood | [facility], CORE [address] | | | [place] [address] | + + + + + | [...] | | muscle-wasting diseses | + + CBC, WITH DIFFERENTIAL (03/24/2018 9:02 AM) + + + | Specimen | Performing Laboratory | + + + | Blood | | + + + + + | Narrative | + + | The following orders were created for panel order CBC, WITH DIFFERENTIAL. | | Procedure | | Abnormality Status | | --------- | | ------ CBC AND AUTO | | DIFF[[id number]] Abnormal Final | | result MANUAL | | DIFFERENTIAL[[id number]] Abnormal Final | | result RBC | | MORPHOLOGY[[id number]] | | Final result Please view results for these tests on the | | individual orders. | + + CBC (HEMOGRAM) ONLY (03/24/2018 12:59 AM) + + + + | Component | Value | Ref Range | + + + + | WHITE CELL COUNT | 2.95 (L) | 3.50 - 10.80 K/cu mm | + + + + | RED CELL COUNT | 2.40 (L) | 4.00 - 5.20 M/cu mm | + + + + | HEMOGLOBIN | 7.3 (L) | 12.0 - 16.0 g/dL | + + + + | HEMATOCRIT | 20.9 (L) | 36.0 - 46.0 % | + + + + | MCV | 87.1 | 80.0 - 100.0 fL | + + + + | MCHC | 34.9 | 32.0 - 36.0 g/dL | + + + + | RDW SD | 44.6 | 35.1 - 46.3 fL | + + + + | PLATELET COUNT | 36 (L) | 150 - 400 K/cu mm | + + + + | MPV | 10.6 | 9.7 - 12.3 fL | + + + + | NRBC% | 0.0 | 0.0 - 0.3 % | + + + + | NRBC# | 0.00 | 0.00 - 0.02 K/cu mm | + + + + + + + | Specimen | Performing Laboratory | + + + | Blood | [facility], CORE [address] | | | [place] [address] | + + + + + | Narrative | + + | New reference ranges for MCV, MCHC, PLT, IG% and IG# effective 01/09/2018 | + + CBC ONLY (03/24/2018 12:59 AM) + + + | Specimen | Performing Laboratory | + + + | Blood | | + + + + + | Narrative | + + | The following orders were created for panel order CBC ONLY. | | Procedure | | Abnormality Status | | --------- | | ------ CBC (HEMOGRAM) | | ONLY[[id number]] Abnormal Final | | result Please view results for these tests on the | | individual orders. | + + CARDIOLOGY (03/24/2018)PRODUCT - PLATELET PHERESIS LEUKOREDUCED (03/23/2018 4:53 PM) + + + + | Component | Value | Ref Range | + + + + | PRODUCT DESCRIPTION | APHERESIS | | | | PLATELETS,PAS,LEUKOREDUCED,IRRADIATED | | + + + + | PRODUCT UNIT # | [id number] | | + + + + | UNIT ABO | A | | + + + + | UNIT RH | POS | | + + + + | STATUS OF UNIT | Presumed Transfused | | + + + + | EXPIRATION DATE | [id number] | | + + + + | BLOOD TYPE BARCODE | 6200 | | + + + + | BLOOD PRODUCT CODE | [id number] | | + + + + + + + | Specimen | Performing Laboratory | + + + | | [facility], TRANSFUSION MEDICINE [address] | | | [place] [address] | + + + C-REACTIVE PROTEIN (03/23/2018 4:44 PM) + + + + | Component | Value | Ref Range | + + + + | C-REACTIVE PROTEIN | 166.0 (H) | <10.0 mg/L | + + + + + + + | Specimen | Performing Laboratory | + + + | Blood | [facility], CORE [address] | | | [place] [address] | + + + + + | Narrative | + + | New method, new reference range and new reporting units as of 02/03/2014. | + + HAPTOGLOBIN (03/23/2018 4:44 PM) + +---------+ + | Component | Value | Ref Range | + +---------+ + | HAPTOGLOBIN | 329 (H) | 30 - 200 mg/dL | + +---------+ + + + + | Specimen | Performing Laboratory | + + + | Blood | [facility], [facility]ORE [address] | | | [place] [address] | + + + D-DIMER, (PE OR DIC) (03/23/2018 4:44 PM) + + + + | Component | Value | Ref Range | + + + + | D-DIMER (PE OR DIC) | 0.62 (H) | <0.50 ug/mLFEU | + + + + + + + | Specimen | Performing Laboratory | + + + | Blood | [facility], [place] [address] [place] [address] | | | [place] [address] | + + + + + | Narrative | + + | D-Dimer Interpretation: <0.5 PE very unlikely 0.50-4.0 Seen in | | ill patients but not diagnostic of thrombosis. >4.0 Compatible with DIC but | | not diagnostic. If clinically indicated request titration of | | d-dimer. Values >8.0 are strongly suggestive of DIC. | + + COAGULOPATHY PANEL (INR,APTT,FIBRINOGEN) (03/23/2018 4:44 PM) + + + + | Component | Value | Ref Range | + + + + | INR | 1.12 | 0.90 - 1.20 INR | + + + + | APTT | 33.1 | 26.0 - 36.0 seconds | + + + + | FIBRINOGEN LEVEL | 674 (H)Comment: New Reference Ranges as of | 150 - 450 mg/dL | | | 01/06/2018. | | + + + + + + + | Specimen | Performing Laboratory | + + + | Blood | [facility], [address] [address] | | | [place] [address] | + + + + + | Narrative | + + | INR Therapeutic ranges for full anticoagulation: INR for Venous | | Thromboembolism (2.0 - 3.0) INR INR for most patients with | | mech. valves (2.5 - 3.5) INR APTT values for monitoring heparin therapy may be | | affected by specimens processed >1 hour after collection. APTT Therapeutic | | Range: (75 - 120) sec Heparin levels | | of 0.35 - 0.7 U/mL | + + LDH TOTAL, PLASMA (03/23/2018 4:44 PM) + +---------+ + | Component | Value | Ref Range | + +---------+ + | LD TOTAL, PLASMA | 135 | <=250 U/L | + +---------+ + | LD CMNT | No Hemo | | + +---------+ + + + + | Specimen | Performing Laboratory | + + + | Blood | [facility], [place] [address] [place] [address] | | | [place] [address] | + + + COMPLETE METABOLIC SET (NA,K,CL,CO2,BUN,CREAT,GLUC,CA,AST,ALT,BILI TOTAL,ALK PHOS,ALB,PROT TOTAL) (03/23/2018 4:44 PM) + +---------+ + | Component | Value | Ref Range | + +---------+ + | GLUCOSE, PLASMA | 115 (H) | 70 - 99 mg/dL | | (LAB) | | | + +---------+ + | BUN, PLASMA (LAB) | 12 | 6 - 20 mg/dL | + +---------+ + | CREATININE PLASMA | 0.74 | 0.60 - 1.10 mg/dL | | (LAB) | | | + +---------+ + | EGFR - | >60 | >60 mL/min | | [facility] | | | + +---------+ + | EGFR NON | >60 | >60 mL/min | | -[facility] | | | + +---------+ + | SODIUM, PLASMA (LAB) | 141 | 136 - 145 mmol/L | + +---------+ + | POTASSIUM, PLASMA | 3.4 | 3.4 - 5.0 mmol/L | | (LAB) | | | + +---------+ + | CHLORIDE, PLASMA | 105 | 97 - 108 mmol/L | | (LAB) | | | + +---------+ + | TOTAL CO2, PLASMA | 31 | 21 - 32 mmol/L | | (LAB) | | | + +---------+ + | CALCIUM, PLASMA | 8.3 (L) | 8.6 - 10.2 mg/dL | | (LAB) | | | + +---------+ + | CALCIUM(ALB | 9.0 | 8.6 - 10.2 mg/dL | | CORRECTED) | | | + +---------+ + | BILIRUBIN TOTAL | 0.6 | 0.3 - 1.2 mg/dL | + +---------+ + | TOTAL PROTEIN, | 6.8 | 6.4 - 8.2 g/dL | | PLASMA (LAB) | | | + +---------+ + | ALBUMIN, PLASMA | 3.1 (L) | 3.5 - 4.7 g/dL | | (LAB) | | | + +---------+ + | ALK PHOS | 45 | 42 - 98 U/L | + +---------+ + | AST(SGOT) | 10 | <=41 U/L | + +---------+ + | ALT (SGPT) | 22 | <=60 U/L | + +---------+ + | ANION GAP | 5 | 4 - 11 mmol/L | + +---------+ + | ANION GAP(ALB | 7 | 4 - 11 mmol/L | | CORRECTED) | | | + +---------+ + | POTASSIUM CMNT | No Hemo | | + +---------+ + | BILI T CMNT | No Hemo | | + +---------+ + | AST CMNT | No Hemo | | + +---------+ + + + + | Specimen | Performing Laboratory | + + + | Blood | [facility], [address] | | | [place] [address] | + + + + + | [...] | | muscle-wasting diseses | + + RBC MORPHOLOGY (03/23/2018 4:41 PM) + + + + | Component | Value | Ref Range | + + + + | DOHLE BODIES | Present | | + + + + | ANISOCYTOSIS | 1+(10-25cells/HPF) | | + + + + | MICROCYTOSIS | 1+(10-25cells/HPF) | | + + + + | TEAR DROP CELLS | 1+ (<1-2cells/HPF) | | + + + + + + + | Specimen | Performing Laboratory | + + + | Blood | [facility], [address] | | | [place] [address] | + + + RETICULOCYTE COUNT (03/23/2018 4:41 PM) + +---------+ + | Component | Value | Ref Range | + +---------+ + | RETICULOCYTE COUNT | 0.3 (L) | 0.5 - 1.5 % | + +---------+ + | RETIC ABSOLUTE # | 9.3 (L) | 10.0 - 90.0 K/cu mm | + +---------+ + + + + | Specimen | Performing Laboratory | + + + | Blood | [facility], [facility] [place] [address] [place] [address] | | | [place] [address] | + + + RETICULOCYTE COUNT, BLOOD (03/23/2018 4:41 PM) + + + | Specimen | Performing Laboratory | + + + | Blood | | + + + + + | Narrative | + + | The following orders were created for panel order RETICULOCYTE COUNT, BLOOD. | | Procedure | | Abnormality Status | | --------- | | ------ RETICULOCYTE | | COUNT[[id number]] Abnormal Final | | result Please view results for these tests on the | | individual orders. | + + ABO & RH TYPE (03/23/2018 4:41 PM) + + + + | Component | Value | Ref Range | + + + + | ABO Group | A | | + + + + | Rh Type | Positive | | + + + + + + + | Specimen | Performing Laboratory | + + + | Blood | [facility], [facility] [address] | | | [place] [address] | + + + CBC AND AUTO DIFF (03/23/2018 4:41 PM) + + + + | Component | Value | Ref Range | + + + + | WHITE CELL COUNT | 2.12 (L) | 3.50 - 10.80 K/cu mm | + + + + | RED CELL COUNT | 2.76 (L) | 4.00 - 5.20 M/cu mm | + + + + | HEMOGLOBIN | 8.2 (L) | 12.0 - 16.0 g/dL | + + + + | HEMATOCRIT | 23.7 (L) | 36.0 - 46.0 % | + + + + | MCV | 85.9 | 80.0 - 100.0 fL | + + + + | MCHC | 34.6 | 32.0 - 36.0 g/dL | + + + + | RDW SD | 44.0 | 35.1 - 46.3 fL | + + + + | PLATELET COUNT | 24 (L) | 150 - 400 K/cu mm | + + + + | MPV | 10.9 | 9.7 - 12.3 fL | + + + + | NRBC% | 0.0 | 0.0 - 0.3 % | + + + + | NRBC# | 0.00 | 0.00 - 0.02 K/cu mm | + + + + | NEUTROPHIL % | 30.2 (L) | 50.0 - 70.0 % | + + + + | LYMPHOCYTE % | 41.0 | 18.0 - 42.0 % | + + + + | MONOCYTE % | 24.1 (H) | 3.5 - 9.0 % | + + + + | EOS % | 0.5 (L) | 1.0 - 3.0 % | + + + + | BASO % | 1.4 | 0.0 - 2.0 % | + + + + | IG% | 2.8 (H)Comment: Increased immature | 0.0 - 1.0 % | | | granulocytes (IG) define a left shift. | | | | Immature granulocytes (IG) are an automated | | | | count of metamyelocytes, myelocytes and | | | | promyelocytes. Bands are not included in | | | | the IG count. Bands are included in the | | | | neutrophil count. | | + + + + | NEUTROPHIL # | 0.64 (L) | 1.80 - 7.70 K/cu mm | + + + + | LYMPHOCYTE # | 0.87 (L) | 1.00 - 4.80 K/cu mm | + + + + | MONOCYTE # | 0.51 | 0.10 - 0.90 K/cu mm | + + + + | EOS # | 0.01 | 0.00 - 0.50 K/cu mm | + + + + | BASO # | 0.03 | 0.00 - 0.10 K/cu mm | + + + + | IG# | 0.06 | 0.00 - 0.10 K/cu mm | + + + + + + + | Specimen | Performing Laboratory | + + + | Blood | [facility], [address] | | | [place] [address] | + + + + + | Narrative | + + | New pediatric reference ranges for Lymphocyte % in effect February 13, 2018. New | | reference ranges for MCV, MCHC, PLT, IG% and IG# effective 01/09/2018 Increased | | immature granulocytes (IG) define a left shift. Immature granulocytes (IG) are an | | automated count of metamyelocytes, myelocytes and promyelocytes. Bands are not included | | in the IG count. Bands are included in the neutrophil count. | + + ANTIBODY SCREEN (03/23/2018 4:41 PM) + + + + | Component | Value | Ref Range | + + + + | Antibody Screen | Negative | | + + + + + + + | Specimen | Performing Laboratory | + + + | Blood | [facility], [facility] [address] | | | [place] [address] | + + + SEDIMENTATION RATE (03/23/2018 4:41 PM) + +---------+ + | Component | Value | Ref Range | + +---------+ + | SEDIMENTATION RATE | 102 (H) | 0 - 20 mm/hr | + +---------+ + + + + | Specimen | Performing Laboratory | + + + | Blood | [facility], [address] | | | [place] [address] | + + + + + | Narrative | + + | Conditions such as cold agglutinins, anemia, hemolysis, icterus or lipemia may affect | | sedimentation rate. | + + CBC, WITH DIFFERENTIAL (03/23/2018 4:41 PM) + + + | Specimen | Performing Laboratory | + + + | Blood | | + + + + + | Narrative | + + | The following orders were created for panel order CBC, WITH DIFFERENTIAL. | | Procedure | | Abnormality Status | | --------- | | ------ CBC AND AUTO | | DIFF[[id number]] Abnormal Final | | result RBC | | MORPHOLOGY[[id number]] | | Final result Please view results for these tests on the | | individual orders. | + + CULTURE, BLOOD BACTI & YEAST LUIS (03/23/2018 4:40 PM) + + + + | Component | Value | Ref Range | + + + + | CULTURE RESULT | Final Report:No Bacteria or Yeast isolated | | | | at 5 days. | | + + + + + + + | Specimen | Performing Laboratory | + + + | Blood | [facility], [address] | | | [place] [address] | + + + CULTURE, BLOOD BACTI & YEAST (03/23/2018 4:40 PM) + + + | Specimen | Performing Laboratory | + + + | Blood | | + + + + + | Narrative | + + | The following orders were created for panel order CULTURE, BLOOD BACTI & YEAST. | | Procedure | | Abnormality Status | | --------- | | ------ CULTURE, BLOOD | | BACTI & Y...[[id number]] Final | | result Please view results for these tests on the | | individual orders. | + + CULTURE, BLOOD BACTI & YEAST [facility] (03/23/2018 4:21 PM) + + + + | Component | Value | Ref Range | + + + + | CULTURE RESULT | Final Report:No Bacteria or Yeast isolated | | | | at 5 days. | | + + + + + + + | Specimen | Performing Laboratory | + + + | Blood - Antecubital | [facility], [address] | | - left | [place] [address] | + + + CULTURE, BLOOD BACTI & YEAST (03/23/2018 4:21 PM) + + + | Specimen | Performing Laboratory | + + + | Blood | | + + + + + | Narrative | + + | The following orders were created for panel order CULTURE, BLOOD BACTI & YEAST. | | Procedure | | Abnormality Status | | --------- | | ------ CULTURE, BLOOD | | BACTI & Y...[[id number]] Final | | result Please view results for these tests on the | | individual orders. | + + X-RAY KNEE 2 VIEWS LEFT (03/23/2018 3:55 PM) + + + | Specimen | Performing Laboratory | + + + | | [facility] VOICE RECOGNITION 2 | + + + + + | Narrative | + + | EXAM: KNEE 2 VIEWS LEFT HISTORY: evaluate for bony changes, osteo, infection | | COMPARISON: 02/07/2018. FINDINGS: Mid tibial and fibular diaphyseal amputations | | are redemonstrated with smooth partially corticated margins. No fracture or focal | | destruction is seen. There is no aggressive periosteal new bone formation. There is soft | | tissue swelling of the stump . Irregularity of skin along the anterior lateral distal | | soft tissue stump may represent ulceration. IMPRESSION: Mid tibial and fibular | | amputations without osteomyelitis or other complication. Soft tissue swelling with | | possible small ulceration . I have personally reviewed the images and, if necessary, | | edited the report. I agree with the report as now presented. Final signature: | | Helen Parra MD 03/23/2018 4:56 PM Preliminary: Helen Parra MD | | Dictation initiated: Helen Parra MD 03/23/2018 4:51 PM | + + + + | Procedure [...] MD 03/23/2018 4:51 PM | + + in this encounter Visit Diagnoses Not on filein this encounter Admitting Diagnoses + + | Diagnosis | + + | fever neutropenia | + + Administered Medications + +--------+ + +------+------+ | Medication Order | MAR | Action | Dose | Rate | Site | | | Action | Date | | | | + +--------+ + +------+------+ | acetaminophen (TYLENOL) tablet | Given | | 1,000 mg | | | | 1,000 mg 1,000 mg, oral, EVERY 8 | | 8 17:18 | | | | | HOURS, First dose on Sat03/24/18 | | PDT | | | | | at 1730, Until Discontinued | | | | | | + +--------+ + +------+------+ +-------+ + +---+---+ | Given | | 1,000 mg | | | | | 8 02:43 | | | | | | PDT | | | | +-------+ + +---+---+ | Given | | 1,000 mg | | | | | 8 08:46 | | | | | | PDT | | | | +-------+ + +---+---+ +---+---+ | | | +---+---+ + +-------+ +-------+---+---+ | citalopram (CELEXA) tablet 40 | Given | | 40 mg | | | | mg 40 mg, oral, AT BEDTIME, | | 8 21:35 | | | | | First dose on 03/23/18 at | | PDT | | | | | 2200, Until Discontinued | | | | | | + +-------+ +-------+---+---+ +-------+ +-------+---+---+ | Given | | 40 mg | | | | | 8 21:08 | | | | | | PDT | | | | +-------+ +-------+---+---+ | Given | | 40 mg | | | | | 8 22:11 | | | | | | PDT | | | | +-------+ +-------+---+---+ + +---+ | | | + +---+ | diphenhydrAMINE (BENADRYL) | | | capsule 25 mg 25 mg, oral, EVERY | | | 6 HOURS NEEDED, Starting Tue | | | 03/25/18 at 1034, Until Tue | | | 04/01/18 at 2201, itching | | + +---+ | | | + +---+ | | | | [id number] | | | (SPECIAL MOUTHWASH) suspension | | | (compound) 5 mL 5 mL, oral, FOUR | | | TIMES DAILY NEEDED, Starting | | | 03/23/18 at 1435, Until Tue | | | 04/01/18 at 2201, oral pain/ulcers | | + +---+ | | | + +---+ + +-------+ +-------+---+---+ | famotidine (PEPCID) tablet 20 | Given | | 20 mg | | | | mg 20 mg, oral, TWICE DAILY, | | 8 09:17 | | | | | First dose on 03/23/18 at | | PDT | | | | | 2100, Until Discontinued | | | | | | + +-------+ +-------+---+---+ +-------+ +-------+---+---+ | Given | | 20 mg | | | | | 8 20:14 | | | | | | PDT | | | | +-------+ +-------+---+---+ | Given | | 20 mg | | | | | 8 08:46 | | | | | | PDT | | | | +-------+ +-------+---+---+ +---+---+ | | | +---+---+ + +-------+ + +---+---+ | heparin 10 unit/mL IV flush | Given | | 50 Units | | | | syringe 50 Units 50 Units, | | 8 02:33 | | | | | intravenous, NEEDED, Starting | | PDT | | | | | 03/24/18 at 1501, Until Tue | | | | | | | 04/01/18 at 2201, line patency | | | | | | + +-------+ + +---+---+ +-------+ + +---+---+ | Given | | 50 Units | | | | | 8 04:35 | | | | | | PDT | | | | +-------+ + +---+---+ | Given | | 50 Units | | | | | 8 04:42 | | | | | | PDT | | | | +-------+ + +---+---+ + +---+ | | | + +---+ | heparin 100 unit/mL IV flush | | | 500 Units 500 Units, | | | intravenous, NEEDED, Starting | | | 03/24/18 at 0043, Until Tue | | | 04/01/18 at 1, deaccessing | | | line/port | | + +---+ | | | + +---+ + +-------+ +-------+---+---+ | loratadine (CLARITIN) tablet 10 | Given | | 10 mg | | | | mg 10 mg, oral, DAILY, First | | 8 09:36 | | | | | dose on 03/23/18 at 1615, | | PDT | | | | | Until Discontinued | | | | | | + +-------+ +-------+---+---+ +-------+ +-------+---+---+ | Given | | 10 mg | | | | | 8 09:17 | | | | | | PDT | | | | +-------+ +-------+---+---+ | Given | | 10 mg | | | | | 8 08:46 | | | | | | PDT | | | | +-------+ +-------+---+---+ +---+---+ | | | +---+---+ + +-------+ +--------+---+---+ | LORazepam (ATIVAN) tablet 0.5 | Given | | 0.5 mg | | | | mg 0.5 mg, oral, AT BEDTIME | | 8 21:35 | | | | | NEEDED, Starting 03/26/18 at | | PDT | | | | | 2142, Until Sat04/01/18 at 2201, | | | | | | | insomnia, second-line (please | | | | | | | offer melatonin first) | | | | | | + +-------+ +--------+---+---+ +-------+ +--------+---+---+ | Given | | 0.5 mg | | | | | 8 22:35 | | | | | | PDT | | | | +-------+ +--------+---+---+ | Given | | 0.5 mg | | | | | 8 23:18 | | | | | | PDT | | | | +-------+ +--------+---+---+ +---+---+ | | | +---+---+ + +-------+ +---+---+---+ | menthol-zinc oxide (CALAZIME) | Given | | | | | | topical paste 0.2%-16.5% | | 8 23:35 | | | | | topical, TWICE DAILY NEEDED, | | PDT | | | | | Starting 03/29/18 at 2002, | | | | | | | Until 04/01/18 at 2201, skin | | | | | | | irritation/breakdown | | | | | | + +-------+ +---+---+---+ +-------+ +---+---+---+ | Given | | | | | | | 8 06:30 | | | | | | PDT | | | | +-------+ +---+---+---+ | Given | | | | | | | 8 10:11 | | | | | | PDT | | | | +-------+ +---+---+---+ +---+---+ | | | +---+---+ + +-------+ +---+---+---+ | nystatin (MYCOSTATIN) powder | Given | | | | | | topical, TWICE DAILY, First dose | | 8 09:54 | | | | | on 03/23/18 at 2100, Until | | PDT | | | | | Discontinued | | | | | | + +-------+ +---+---+---+ +-------+ +---+---+---+ | Given | | | | | | | 8 21:32 | | | | | | PDT | | | | +-------+ +---+---+---+ | Given | | | | | | | 8 17:19 | | | | | | PDT | | | | +-------+ +---+---+---+ +---+---+ | | | +---+---+ + +-------+ +------+---+---+ | OLANZapine (ZYPREXA) tablet 5 | Given | | 5 mg | | | | mg 5 mg, oral, AT BEDTIME, First | | 8 21:35 | | | | | dose on 03/23/18 at 2200, | | PDT | | | | | Until Discontinued | | | | | | + +-------+ +------+---+---+ +-------+ +------+---+---+ | Given | | 5 mg | | | | | 8 21:08 | | | | | | PDT | | | | +-------+ +------+---+---+ | Given | | 5 mg | | | | | 8 22:11 | | | | | | PDT | | | | +-------+ +------+---+---+ +---+---+ | | | +---+---+ + +-------+ +-------+---+---+ | oxyCODONE (immediate release) | Given | | 15 mg | | | | (ROXICODONE) tablet 5-15 mg 5-15 | | 8 05:56 | | | | | mg, oral, EVERY 3 HOURS | | PDT | | | | | NEEDED, Starting [facility] 03/27/18 at | | | | | | | 1500, Until Sat04/01/18 at 2201, | | | | | | | moderate pain | | | | | | + +-------+ +-------+---+---+ +-------+ +-------+---+---+ | Given | | 10 mg | | | | | 8 10:36 | | | | | | PDT | | | | +-------+ +-------+---+---+ | Given | | 10 mg | | | | | 8 14:44 | | | | | | PDT | | | | +-------+ +-------+---+---+ +---+---+ | | | +---+---+ + +---------+ +-------+---+---+ | piperacillin-tazobactam (ZOSYN) | New Bag | | 4.5 g | | | | IV (minibag+) 4.5 g 4.5 g, | | 8 13:47 | | | | | intravenous, EVERY 8 HOURS, First | | PDT | | | | | dose on Sat03/31/18 at 1400, | | | | | | | Until Discontinued | | | | | | + +---------+ +-------+---+---+ +---------+ +-------+-------+---+ | New Bag | | 4.5 g | 100 | | | | 8 22:10 | | mL/hr | | | | PDT | | | | +---------+ +-------+-------+---+ | New Bag | | 4.5 g | | | | | 8 06:00 | | | | | | PDT | | | | +---------+ +-------+-------+---+ +---+---+ | | | +---+---+ + +-------+ +------+---+---+ | polyethylene glycol (MIRALAX) | Given | | 17 g | | | | packet 17 g 17 g, oral, DAILY, | | 8 08:31 | | | | | First dose on 03/23/18 at | | PDT | | | | | 1615, Until Discontinued | | | | | | + +-------+ +------+---+---+ +-------+ +------+---+---+ | Given | | 17 g | | | | | 8 07:51 | | | | | | PDT | | | | +-------+ +------+---+---+ | Given | | 17 g | | | | | 8 09:17 | | | | | | PDT | | | | +-------+ +------+---+---+ +---+---+ | | | +---+---+ + +-------+ +------+---+---+ | polyethylene glycol (MIRALAX) | Given | | 34 g | | | | packet 34 g 34 g, oral, THREE | | 8 06:56 | | | | | TIMES DAILY NEEDED, Starting | | PDT | | | | | 03/23/18 at 1423, Until Tue | | | | | | | 04/01/18 at 2201, 1st line - for | | | | | | | no BM for 2 days | | | | | | + +-------+ +------+---+---+ +---+---+ | | | +---+---+ + +-------+ +--------+---+---+ | pregabalin (LYRICA) capsule 225 | Given | | 225 mg | | | | mg 225 mg, oral, TWICE DAILY, | | 8 09:17 | | | | | First dose on 03/23/18 at | | PDT | | | | | 1745, Until Discontinued | | | | | | + +-------+ +--------+---+---+ +-------+ +--------+---+---+ | Given | | 225 mg | | | | | 8 17:18 | | | | | | PDT | | | | +-------+ +--------+---+---+ | Given | | 225 mg | | | | | 8 08:46 | | | | | | PDT | | | | +-------+ +--------+---+---+ +---+---+ | | | +---+---+ + +-------+ +---------+---+---+ | senna-docusate (SENOKOT S) | Given | | 2 | | | | 8.6-50 mg 2 tablet 2 tablet, | | 8 21:29 | tablets | | | | oral, TWICE DAILY, First dose on | | PDT | | | | | 03/23/18 at 2100, Until | | | | | | | Discontinued | | | | | | + +-------+ +---------+---+---+ +-------+ +---------+---+---+ | Given | | 2 | | | | | 8 07:50 | tablets | | | | | PDT | | | | +-------+ +---------+---+---+ | Given | | 2 | | | | | 8 09:17 | tablets | | | | | PDT | | | | +-------+ +---------+---+---+ +---+---+ | | | +---+---+ in this encounter
--- OUTSIDE RECORDS SUMMARY | ~2018-04-16 | XMS | Encounter Summary ---
Demographics + + + | Address | [address] | | | [place] [address] | + + + | Home Phone | | + + + | Preferred Language | Unknown | + + + | Marital Status | Single | + + + | Restorationist Affiliation | CAT | + + + [...] Team Providers + +------+ + | Care Wallpaper Printer Helper Name | Role | Phone | [...] + + + + | 04/01/ | Documentati | Infectious | Wendy Solitario, | RN Care Management; | | 2018 | on | Diseases at [facility] | RN [address] | Infectious disease | | | | Floor [address] | [facility] | | | | | [facility] | [place], [place] | | | | | Mailcode: [id number] | [address] | | | | | [facility] | | | | | | [place], [place] | | | | | | [address] | | | | | | [phone] | | | +--------+ + + + [...] [facility] | | | | | | [place] [address] | | +--------+ + + + + | 04/24/ | Office | Hematology & | Annie Gannon, | | | 2017 | Visit | Oncology | [facility] [address] | | [address] | | | | | | [place], [place] | | | | | | [address] | | | | | | [phone] | | | | | | | | +--------+ + + + + | 04/24/ | Hospital | Adult Acute Care | Savanna Mari, | | | 2017 | Encounter | | [address] | | | | | | [place], [place] | | | | | | [address] | | | | | | [phone] | | | | | | | [...] [address] | | | | | | [place], [place] | | | | | | [address] | | | | | | [phone] | | | | | | | | +--------+ + + + + as of this encounter Visit Diagnoses Not on filein this encounter"
--- OUTSIDE RECORDS SUMMARY | ~2018-04-16 | XMS | Encounter Summary ---
Demographics + + + | Address | [address] | | | [place] [address] | + + + | Home Phone [...] + + + | Author | [facility] | + + + | Organization | [facility] | + + + | Address | Unknown | + + + | Phone | Unavailable | + + + Support + + +---------+ + | Name | Relationship | Address | Phone | + + +---------+ + | ROSE BOWENS | ECON | Unknown | | + + +---------+ + Care Team Providers + +------+ + | Care Bander Name | Role | Phone | + [...] | +--------+ + + + + | 03/14/ | Telephone | Hematology/Medical | Work, Social | Social Work Notes | | 2017 | | Oncology at [facility] | | | | | | [facility] | | | | | | [address] | | | | | | Mailcode: [id number] | | | | | | [facility] | | | | | | and Healing, [address]th | | | | | | Floor [place], [place] | | | | | | [address] | | | | | | [phone] | | | +--------+ + + + [...] [facility] | | | | | | [place] [address] | | +--------+ + + + + | 04/24/ | Office | Hematology & | Annie Gannon, | | | 2017 | Visit | Oncology | AGACNP,ORE FIELDER [address] | | | | | | [place], [place] | | | | | | [address] | | | | | | [phone] | | | | | | | | +--------+ + + + + | 04/24/ | Hospital | Adult Acute Care | Savanna Mari, | | | 2017 | Encounter | | MD [address] | | | | | | [place], [place] | | | | | | [address] | | | | | | [phone] | | | | | | | [...] [place] | | | | | | [address] | | | | | | [phone] | | | | | | | | +--------+ + + + + as of this encounter Visit Diagnoses Not on filein this encounter"
--- OUTSIDE RECORDS SUMMARY | ~2018-04-16 | XMS | Encounter Summary ---
Demographics + + + | Address | [address] | | | [place] [address] | + + + | Home Phone [...] Author + + + | Author | [facility] | + + + | Organization | [facility] | + + + | Address | Unknown | + + + | Phone | Unavailable | + + + Support + + +---------+ + | Name | Relationship | Address | Phone | + + +---------+ + | ROSE BOWENS | ECON | Unknown | | + + +---------+ + Care Team Providers + +------+ + | Care Restaurant Hospitality Manager Name | Role | Phone | [...] + + + + | 02/06/ | Anesthesia | 6A Intra Op [facility] | Fabio Blackmon | | | 2018 | Event | [facility] | MD Sue [address] | | | | | Admitting Desk | [facility] | | | | | Located on the | [place], [place] | | | | | floor [address] [facility] | [address] | | | | | [facility] | [phone] | | | | | [place], [place] | | | | | | [address] | | | +--------+ + + + + Anesthesia Record + + + + + | Procedure Name | Responsible | Anesthesia Start | Anesthesia Stop Time | | | Anesthesiologist | Time | | + + + + + | LOWER EXTREMITY | Laura J Deng, MD | 02/06/18 1215 | 02/06/18 1604 | | AMPUTATION (Left | | | | | Leg) | | | | + + + + + +----+---+ + + | Da | T | Event | Comment | | te | i | | | | | m | | | | | e | | | +----+---+ + + | 06 | 1 | Eq Check | Anesthesia machine checked Equipment verified | | /0 | 1 | | | | 7/ | 0 | | | | 20 | 8 | | | | 18 | | | | +----+---+ + + | | 1 | Preprocedur | Pt ID confirmed, informed consent obtained, insertion site | | | 1 | e Checklist | marked, equipment available | | | 1 | | | | | 1 | | | +----+---+ + + | | 1 | Pt. Check | Prior to anesthesia start, pt. Identified, examined, chart | | | 1 | | reviewed, PARQ held, anesthetic plan made or approved by | | | 1 | | attending anesthesiologist. NPO status confirmed as appropriate | | | 4 | | for procedure Preoperative evaluation: unchanged | +----+---+ + + | | 1 | Epidural | | | | 1 | Start | | | | 4 | | | | | 2 | | | +----+---+ + + | | 1 | Epidural | | | | 2 | Stop | | | | 1 | | | | | 1 | | | +----+---+ + + | | 1 | An Start | | | | 2 | | | | | 1 | | | | | 5 | | | +----+---+ + + | | 1 | An Start | | | | 2 | Data | | | | 1 | | | | | 8 | | | +----+---+ + + | | 1 | Vitals | Monitors applied Vital signs checked Patient ready for anesthesia | | | 2 | Checked | | | | 2 | | | | | 0 | | | +----+---+ + + | | 1 | ETT | | | | 2 | | | | | 2 | | | | | 5 | | | +----+---+ + + | | 1 | Ready | | | | 2 | | | | | 2 | | | | | 7 | | | +----+---+ + + | | 1 | Abx | | | | 2 | Administere | | | | 3 | d | | | | 0 | | | +----+---+ + + | | 1 | Pause | | | | 2 | | | | | 5 | | | | | 9 | | | +----+---+ + + | | 1 | Incision | | | | 3 | | | | | 0 | | | | | 2 | | | +----+---+ + + | | 1 | Pause | Pause for 2nd team, starting left foot amputation. | | | 4 | | | | | 0 | | | | | 4 | | | +----+---+ + + | | 1 | Quick Note | Incision LLE | | | 4 | | | | | 0 | | | | | 5 | | | +----+---+ + + | | 1 | Quick Note | Epidural catheter aspirate negative for CSF/heme | | | 4 | | | | | 2 | | | | | 5 | | | +----+---+ + + | | 1 | Quick Note | Dr. Sorensen paged: unable to obtain BP after dosing epidural | | | 4 | | catheter; arrived in [place] | | | 2 | | | | | 7 | | | +----+---+ + + | | 1 | An Data Art | NBP cuff repositioned | | | 4 | | | | | 4 | | | | | 1 | | | +----+---+ + + | | 1 | An Data Art | New NBP cuff placed L. Forearm | | | 4 | | | | | 4 | | | | | 9 | | | +----+---+ + + | | 1 | Surgery end | | | | 5 | | | | | 3 | | | | | 6 | | | +----+---+ + + | | 1 | An Extubate | Neuromuscular function Intact. Pharynx suctioned. Patient obeys | | | 5 | | commands. Adequate pulmonary mechanics. | | | 4 | | | | | 6 | | | +----+---+ + + | | 1 | an stop | | | | 5 | data | | | | 4 | | | | | 6 | | | +----+---+ + + | | 1 | PACU Rpt | | | | 6 | Given | | | | 0 | | | | | 4 | | | +----+---+ + + | | 1 | Anesthesia | | | | 6 | End | | | | 0 | | | | | 4 | | | +----+---+ + + | | 1 | Start PNB | | | | 8 | SS | | | | 4 | | | | | 0 | | | +----+---+ + + | | 1 | PNB SS Stop | | | | 9 | | | | | 0 | | | | | 0 | | | +----+---+ + + | | 1 | Start | | | | 9 | Catheter | | | | 0 | | | | | 1 | | | +----+---+ + + | | 1 | PNB Cath | | | | 9 | Stop | | | | 4 | | | | | 0 | | | +----+---+ + + +------+ | Meds | +------+ + + + | Name | Total | + + + | fentaNYL | 550 mcg | + + + | lidocaine 1.5% EPINEPHrine 1:200K | 5 mL | + + + | ceFAZolin (ANCEF) injection 3 g | 3 g | + + + | lidocaine 2% | 100 mg | + + + | propofol | 270 mg | + + + | succinylcholine | 140 mg | + + + | PHENYLEPHrine | 300 mcg | + + + | ePHEDrine | 10 mg | + + + | EPINEPHrine | 5 mcg | + + + | bupivacaine 0.25% | 5 mL | + + + | LR | 1,300 mL | + + + | NS | 200 mL | + + + + + | No agents on file. | + + + + | No blood administrations on file. | + + +--------+ + + + | Type | Details | Placement | Removal | +--------+ + + + | Incisi | 02/06/18; 1302; Alejandro Loredo MD; | 02/06/18 1302 by | | | on | Right; chest | Charlotte Rodriguez RN | | +--------+ + + + | Incisi | 02/06/18; 1405; Kristin Basurto MD; | 02/06/18 1405 by | | | on | Left; Lower; leg | Charlotte Rodriguez RN | | +--------+ + + + | Periph | B isabelleka; Left; | 02/06/182006 by | 02/11/18 113 by | | pop | Sciatic/popliteal; 02/11/18; | | Thania Calloway RN | | Nerve | 1131; (APS ) | | | | Block | | | | +--------+ + + + | Periph | 02/06/18; 1057; Right; Hand; 22 | 02/06/18 1057 by | 02/11/18 1451 by | | pop | g; None; Positive; 02/11/18; | Jerica Puente RN | Thania Calloway RN | | IV | 1451; Discharge | | | +--------+ + + + | Periph | 02/06/18; 1246; MD Lorri; | 02/06/18 1246 by | 02/06/18 2100 by | | eral | Right; 20 g; Positive; 02/06/18; | Alberto Baires, | Thang Wilson RN | | IV | 2100; Site problems (painful) | SANDBLAST OR SHOTBLAST EQUIPMENT TENDER | | +--------+ + + + | Urethr | 02/06/18; 1250; Humaira Rodriguez RN ; 1 | 02/06/18 1250 by | 02/07/18 1230 by | | al | (Melba Perez RN); Sana (Latex | Charlotte Rodriguez RN | Tona Aaron RN | | Cathet | free); 16 Fr.; 10 mL; 02/07/18; | | | | er | 1230; Per order, Per | | | | | patient/family request | | | +--------+ + + + in this encounter Social History + +-------+ +--------+------+ | Tobacco [...] [address] | | | | | | [place] [address] | | +--------+ + + + + | 04/24/ | Office | Hematology & | Annie Gannon, | | | 2017 | Visit | Oncology | AGASHANAE,TREATING ENGINEER HELPER [address] | | | | | | [address] | | | | | | [place], [place] | | | | | | [address] | | | | | | [phone] | | | | | | | | +--------+ + + + + | 04/24/ | Hospital | Adult Acute Care | Savanna Mari, | | | 2017 | Encounter | | [address] | | | | | | [place], [place] | | | | | | [address] | | | | | | [phone] | | | | | | | [...] [address] | | | | | | [place], [place] | | | | | | [address] | | | | | | [phone] | | | | | | | | +--------+ + + + + as of this encounter Results CHRISTI KURTZ (02/06/2018 7:15 PM) + + | Narrative | + + | Cole Gao MD 02/06/2018 12:18 PM PROCEDURE NAME Epidural or Caudal | | Information Epidural . Have received and accepted request from attending surgeon to | | offer advanced acute pain management services to the patient Location performed: | | Pre-Op The patient was identified, the site marked,, full PARQ done Adult or | | Pediatric: Adult Procedure Patient position: Sitting, Epidural approach: | | Midline, Monitors: NIBP, SpO2 and EKG, Supplemental Oxygen Given, Sterile prep | | (ChloraPrep) drape and technique Needle Tuohy with a 17g Needle insertion | | depth 5.5 cm Catheter depth 10 cm on the 1st attempt Parasthesia: No. Negative | | for blood. Vertebral Interspace: L2-3 CSF: Aspiration negative for | | CSF, Sensory Band:Tested: Temperature sensation to ice, J LUIS: air Assessment | | Complications: None, Technical Difficulty: Easy Sensory Assessment: Deferred Motor | | Assessment: Deferred; Narrative Attending physically present LAURA DENG | | JPerformed by Resident: COLE GAO A procedural pause verifying correct | | patient, medical record number, date of , allergies, and surgical | | site/orientation was performed immediately prior to beginning the procedure. Previous | | to pause a formal PARQ discussion was held with patient who consents to procedure and | | understands risks/benefits of nerve block. After visual anatomical identification | | of landmarks, site was thoroughly cleaned with Chloraprep. Skin anesthestized with 1% | | lidocaine. Ultrasound visualization of nerve anatomy was good. Patient awake, | | alert, conversant throughout without complaint. No paresthesias or pain with injection | | noted. Local anesthetic was injected after negative aspiration in divided doses | | with repeat aspiration after every 5mL. See anesthetic record for medication dose | | documentation. The procedure was well tolerated and without observed complication. | | See patient's medical record for images. | + + in this encounter Visit Diagnoses Not on filein this encounter Administered Medications + +--------+ +------+------+------+ | Medication Order | MAR | Action | Dose | Rate | Site | | | Action | Date | | | | + +--------+ +------+------+------+ | bupivacaine (PF) | Given | 02/06/2018 | 5 mL | | | | (MARCAINE,SENSORCAINE-MPF) 0.25 % | | 14:25 | | | | | (2.5 mg/mL) injection | | PDT | | | | | INTRAPROCEDURE PRN, Starting Bettie | | | | | | | 02/06/18 at 1425, Until | | | | | | | Discontinued | | | | | | + +--------+ +------+------+------+ +---+---+ | | | +---+---+ + +-------+ +-----+---+---+ | ceFAZolin (ANCEF) injection 3 g | Given | 02/06/2018 | 3 g | | | | 3 g, intravenous, PREPROCEDURE | | 12:30 | | | | | ONCE, 1 dose, Starting Bettie 02/06/18 | | PDT | | | | | at 1019, Until Discontinued | | | | | | + +-------+ +-----+---+---+ +---+---+ | | | +---+---+ + +-------+ +-------+---+---+ | ePHEDrine injection | Given | 02/06/2018 | 10 mg | | | | intravenous, INTRAPROCEDURE PRN, | | 14:30 | | | | | Starting Bettie 02/06/18 at 1430, | | PDT | | | | | Until Discontinued | | | | | | + +-------+ +-------+---+---+ +---+---+ | | | +---+---+ + +-------+ +-------+---+---+ | EPINEPHrine (ADRENALIN) | Given | 02/06/2018 | 5 mcg | | | | injection INTRAPROCEDURE PRN, | | 14:31 | | | | | Starting Bettie 02/06/18 at 1431, | | PDT | | | | | Until Discontinued | | | | | | + +-------+ +-------+---+---+ +---+---+ | | | +---+---+ + +-------+ +--------+---+---+ | fentaNYL citrate (PF) | Given | 02/06/2018 | 50 mcg | | | | (SUBLIMAZE) injection | | 14:54 | | | | | INTRAPROCEDURE PRN, Starting Bettie | | PDT | | | | | 02/06/18 at 1145, Until | | | | | | | Discontinued | | | | | | + +-------+ +--------+---+---+ +-------+ +--------+---+---+ | Given | 02/06/2018 | 50 mcg | | | | | 15:00 | | | | | | PDT | | | | +-------+ +--------+---+---+ | Given | 02/06/2018 | 50 mcg | | | | | 15:24 | | | | | | PDT | | | | +-------+ +--------+---+---+ +---+---+ | | | +---+---+ + + + +---+---+---+ | lactated Ringers IV | given by | 02/06/2018 | | | | | INTRAPROCEDURE CONTINUOUS PRN, | | 12:40 | | | | | Starting [facility] 02/06/18 at 1215, | anesthes | PDT | | | | | Until Discontinued | iology | | | | | + + + +---+---+---+ + + +---+---+---+ | New Bag | 02/06/2018 | | | | | | 14:40 | | | | | | PDT | | | | + + +---+---+---+ | given by anesthesiology | 02/06/2018 | | | | | | 15:26 | | | | | | PDT | | | | + + +---+---+---+ +---+---+ | | | +---+---+ + +-------+ +--------+---+---+ | lidocaine (XYLOCAINE MPF) 2 % | Given | 02/06/2018 | 100 mg | | | | (20 mg/mL) injection | | 12:22 | | | | | INTRAPROCEDURE PRN, Starting Bettie | | PDT | | | | | 02/06/18 at 1222, Until | | | | | | | Discontinued | | | | | | + +-------+ +--------+---+---+ +---+---+ | | | +---+---+ + +-------+ +------+---+---+ | lidocaine-EPINEPHrine | Given | 02/06/2018 | 5 mL | | | | (XYLOCAINE-MPF WITH EPINEPHRINE) | | 12:09 | | | | | 1.5 %-1:200,000 injection | | PDT | | | | | INTRAPROCEDURE PRN, Starting Bettie | | | | | | | 02/06/18 at 1209, Until | | | | | | | Discontinued | | | | | | + +-------+ +------+---+---+ +---+---+ | | | +---+---+ + +-------+ +---------+---+---+ | PHENYLEPHrine 100 mcg/mL IV | Given | 02/06/2018 | 200 mcg | | | | syringe INTRAPROCEDURE PRN, | | 14:27 | | | | | Starting Bettie 02/06/18 at 1427, | | PDT | | | | | Until Discontinued | | | | | | + +-------+ +---------+---+---+ +-------+ +---------+---+---+ | Given | 02/06/2018 | 100 mcg | | | | | 14:29 | | | | | | PDT | | | | +-------+ +---------+---+---+ +---+---+ | | | +---+---+ + +-------+ +--------+---+---+ | propofol INTRAPROCEDURE PRN, | Given | 02/06/2018 | 200 mg | | | | Starting Bettie 02/06/18 at 1222, | | 12:22 | | | | | Until Discontinued | | PDT | | | | + +-------+ +--------+---+---+ +-------+ +-------+---+---+ | Given | 02/06/2018 | 70 mg | | | | | 12:37 | | | | | | PDT | | | | +-------+ +-------+---+---+ +---+---+ | | | +---+---+ + +---------+ +---+---+---+ | sodium chloride 0.9% IV | New Bag | 02/06/2018 | | | | | infusion INTRAPROCEDURE | | 14:43 | | | | | CONTINUOUS PRN, Starting Bettie | | PDT | | | | | 02/06/18 at 1443, Until | | | | | | | Discontinued | | | | | | + +---------+ +---+---+---+ + + +---+---+---+ | given by anesthesiology | 02/06/2018 | | | | | | 15:26 | | | | | | PDT | | | | + + +---+---+---+ +---+---+ | | | +---+---+ + +-------+ +--------+---+---+ | SUCCINYLCHOLINE CHLORIDE 20 | Given | 02/06/2018 | 140 mg | | | | MG/ML INJ (PROSED/RSI) | | 12:23 | | | | | INTRAPROCEDURE PRN, Starting Bettie | | PDT | | | | | 02/06/18 at 1223, Until | | | | | | | Discontinued | | | | | | + +-------+ +--------+---+---+ +---+---+ | | | +---+---+ in this encounter"
--- OUTSIDE RECORDS SUMMARY | ~2018-04-16 | XMS | Encounter Summary ---
Demographics + + + | Address | [address] | | | [place] [address] | + + + | Home Phone | | + + + | Preferred Language | Unknown | + + + | Marital Status | Single | + + + | Yarsanism Affiliation | CAT | + + + | Race | Unknown | + + + | Ethnic Group | Not or | + + + Author + + + | Author | [facility] | + + + | Organization | [facility] | + + + | Address | Unknown | + + + | Phone | Unavailable | + + + Support + + +---------+ + | Name | Relationship | Address | Phone | + + +---------+ + | ROSE CAGE | ECON | Unknown | | + + +---------+ + Care Team Providers + +------+ + | Care Logging Specialist Name | Role | Phone | [...] | | | | | sarcoma | [address] | [address] | | | | | ([facility]) | Ave | [address] | | | | | Procedures | [facility] | Nakia | | | | | CONSULT TO | [address] | [facility] [place] | | | | | ADULT | Phone: | [phone] | | | | | MEDICAL | [phone] | Phone: | | | | | NUTRITIONAL | Fax: | [phone] | | | | | THERAPY | [phone] | Fax: | | | | | | | [phone] | +--------+--------+ + + + + Diagnostic [...] | Synovial | Sandra Schmitt MD | [facility] [address] | | | | | sarcoma | [address] | [address] | | | | | (HCC) | Ave | Mailcode: | | | | | Procedures | [place], [place] | [address] | | | | | TRANSTHORACI | [address] | for Health | | | | | C | Phone: | and Healing | | | | | ECHOCARDIOGR | [phone] | [place], [place] | | | | | AM WITH | Fax: | [address] | | | | | STRAIN - | [phone] | Phone: | | | | | CARDIO | | [phone] | | | | | MECHANICS, | | | | | | | [place]ULT [place] | | | | | | | [...] | soft tissue | [address] | [place], [place] | | | | | of left | [address] | [address] | | | | | lower | [place], [place] | Phone: | | | | | extremity | [address] | [phone] | | | | | (HCC) | Phone: | Fax: | | | | | Procedures | [phone] | [phone] | | | | | CONSULT TO | Fax: | | | | | | HEMATOLOGY / | [phone] | | | | | | ONCOLOGY [...] | | for Health & Healing | [place], [place] | | | | | [address] | [address] | | | | | Mailcode: CH7M | [phone] | | | | | 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 No kids. Lives with her mother Rose. [...] perfused. No edema. Neurologic - Awake, alert. 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 Affect/Psych - Appropriate. Tearful. ECOG [...] physical activity despite limitations. Sandra Patel MD Customer Strategy Manager Medical Oncology & Pediatric Hematology/Oncology [facility] [place] [facility] in this encounter Plan of Treatment +--------+ + + + + | Date | Type | Specialty | Care Team | Description | +--------+ + + + + | 04/24/ | Appointment | Hematology & | NurseDarwin Starter | | | 2018 | | Oncology | [address] [facility] | | | | | | [place] [address] | | +--------+ + + + + | 04/24/ | Office | Hematology & | Annie Gannon, | | | 2017 | Visit | Oncology | [facility],SENIOR CONSUMER INSIGHTS CONSULTANT [address] | | | | | [facility] | | | | | | [place], [place] | | | | | | [address] | | | | | | [phone] | | | | | | | | +--------+ + + + + | 04/24/ | Hospital | Adult Acute Care | Savanna Mari, | | | 2017 | Encounter | | MD [address] | | | | | | [place], [place] | | | | | | [address] | | | | | | [phone] | | | | | | | [...] [address] | | | | | | [place], [place] | | | | | | [address] | | | | | | [phone] | | | | | | | [...] | + + + | Blood | [facility], CORE [address] | | | [place] [address] | + + + + + | [...] | + + + | Blood | [facility], [facility] + HEALING [address] | | | [address] [place], [place] [address] | + + + [facility] - CBC [...] | ------ CBC AND AUTO | | DIFF[[id number]] Abnormal Final | | result Please view results for these tests on the | | individual orders. 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
--- OUTSIDE RECORDS SUMMARY | ~2018-04-16 | XMS | Encounter Summary ---
Demographics + + + | Address | [address] | | | [place] [address] | + + + | Home Phone [...] + + + | Author | [facility] | + + + | Organization | [facility] | + + + | Address | Unknown | + + + | Phone | Unavailable | + + + Support + + +---------+ + | Name | Relationship | Address | Phone | + + +---------+ + | ROSE BOWENS | ECON | Unknown | | + + +---------+ + Care Team Providers + +------+ + | Care Higher Education Administrator Name | Role | Phone | + +------+ + | Santo Gooden MD | PCP | | + +------+ + Encounter Details +--------+ + + + + | Date | Type | Department | Care Team | Description | +--------+ + + + + | 02/26/ | Telephone | Hematology/Medical | Ann Davis, | | | 2017 | | [facility]cology at [place] | PharmD [address] | | | | | [facility] | [address] | | | | | [address] | [place], [place] | | | | | Mailcode: CH7M | [address] | | | | | [facility] | | | | | | and Healing, [facility] | | | | | | [place], [place] | | | | | | [address] | | | | | | [phone] | | | +--------+ + + + [...] Road | | | | | | [place] [address] | | +--------+ + + + + | 04/24/ | Office | Hematology & | Annie Gannon, | | | 2017 | Visit | Oncology | ROME,DIETARY DIRECTOR [address] | | | | | | [address] | | | | | | [place], [place] | | | | | | [address] | | | | | | [phone] | | | | | | | | +--------+ + + + + | 04/24/ | Hospital | Adult Acute Care | Savanna Mari, | | | 2017 | Encounter | | MD [address] | | | | | | [place], [place] | | | | | | [address] | | | | | | [phone] | | | | | | | [...] Ave | | | | | | [place], [place] | | | | | | [address] | | | | | | [phone] | | | | | | | | +--------+ + + + + as of this encounter Visit Diagnoses Not on filein this encounter"
--- OUTSIDE RECORDS SUMMARY | ~2018-04-16 | XMS | Encounter Summary ---
Demographics + + + | Address | [address] | | | [place] [address] | + + + | Home Phone [...] Team Providers + +------+ + | Care Vp Of Product Name | Role | Phone | + [...] Report | | 2018 | Encounter | [facility] [address] | [address] | | | | | [address] Mailcode: CH12A | [address] | | | | | [facility] | [place], [place] | | | | | and [facility], | [address] | | | | | Floor [place], [place] | [phone] | | | | | [address] | | | | | | [phone] | | | +--------+ + + + [...] 2017 | | Oncology | [address] | | | | | | [place] [address] | | +--------+ + + + + | 04/24/ | Office | Hematology & | Annie Gannon, | | | 2017 | Visit | Oncology | AGADEVYNP,SECURITY PROJECT MANAGER [address] | | | | | | [address] | | | | | | [place], [place] | | | | | | [address] | | | | | | [phone] | | | | | | | | +--------+ + + + + | 04/24/ | Hospital | Adult Acute Care | Savanna Mari, | | | 2017 | Encounter | | MD [address] | | | | | | [facility] [place] | | | | | | [address] | | | | | | [phone] | | | | | | | [...] [address] | | | | | | [place], [place] | | | | | | [address] | | | | | | [phone] | | | | | | | | +--------+ + + + + as of this encounter Visit Diagnoses Not on filein this encounter"
--- OUTSIDE RECORDS SUMMARY | ~2018-04-16 | XMS | Encounter Summary ---
Demographics + + + | Address | [address] | | | [place] [address] | + + + | Home Phone [...] Author | [facility] | + + + | Organization | [facility] | + + + | Address | Unknown | + + + | Phone | Unavailable | + + + Support + + +---------+ + | Name | Relationship | Address | Phone | + + +---------+ + | ROSE BOWENS | ECON | Unknown | | + + +---------+ + Care Team Providers + +------+ + | Care Water Plant Maintenance Mechanic Name | Role | Phone | [...] | | 2018 | | Oncology at [place] | [address] | Results Abnormal | | | | for Health & Healing | [place], [place] | | | | | [address] | [address] | | | | | Mailcode: [facility] | [phone] | | | | | [facility] | | | | | | and Healing, 7th | | | | | | Floor [facility] [place] | | | | | | [address] | | | | | | [phone] | | | +--------+ + + + [...] [address] | | | | | | [place] [address] | | +--------+ + + + + | 04/24/ | Office | Hematology & | Annie Gannon, | | | 2017 | Visit | Oncology | ROME,FABRICATOR ARTIFICIAL BREAST [address] | | | | | [address] | | | | | | [place], [place] | | | | | | [address] | | | | | | [phone] | | | | | | | | +--------+ + + + + | 04/24/ | Hospital | Adult Acute Care | Savanna Mari, | | | 2017 | Encounter | | [address] | | | | | | [place], [place] | | | | | | [address] | | | | | | [phone] | | | | | | | [...] [address] | | | | | | [place], [place] | | | | | | [address] | | | | | | [phone] | | | | | | | | +--------+ + + + + as of this encounter Visit Diagnoses + + | Diagnosis | + + | Synovial sarcoma (HCC) - Primary | + + | 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
--- OUTSIDE RECORDS SUMMARY | ~2018-04-16 | XMS | Encounter Summary ---
Demographics + + + | Address | [address] | | | [place] [address] | + + + | Home Phone [...] Author + + + | Author | [facility] | + + + | Organization | [facility] | + + + | Address | Unknown | + + + | Phone | Unavailable | + + + Support + + +---------+ + | Name | Relationship | Address | Phone | + + +---------+ + | ROSE CAGE | ECON | Unknown | | + + +---------+ + Care Team Providers + +------+ + | Care Blunger Machine Operator Name | Role | Phone | + +------+ + | Santo Gooden MD | PCP | | + +------+ + Reason for Visit +---------+ + | Reason | Comments | +---------+ + | Sarcoma | | +---------+ + AUTH/CERT +--------+--------+ + + + + [...] Description | +--------+---------+ + + + | 03/12/ | Office | Hematology/Medical | Annie Gannon, | 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 | Oncology at [facility] | AGACNP,CHARGE ENTRY SPECIALIST [address] | ([facility]) (Primary Dx) | | | | for Health & Healing | [address] | | | | | [address] | [place], [place] | | | | | Mailcode: [facility] | [address] | | | | | [facility] | [phone] | | | | | and [facility], [facility] | | | | | | [place], [place] | | | | | | [address] | | | | | | [phone] | | | +--------+---------+ + + + [...] + + + | Blood Pressure | 137/89 | 03/12/2018 2:25 PM PDT | + + + + | Pulse | 107 | 03/12/2018 2:25 PM PDT | + + + + | Temperature | 36.7 C (98.1 F) | 03/12/2018 2:25 PM PDT | + + + + | Respiratory Rate | 16 | 03/12/2018 2:25 PM PDT | + + + + | Oxygen Saturation | 97% | 03/12/2018 2:25 PM PDT | + + + + | Inhaled Oxygen | - | - | | Concentration | | | + + + + | Weight | 140.8 kg (310 lb 8 | 03/12/2018 2:25 PM PDT | | | oz) | | + + + + | Height | - | - | + + + + | Body Mass Index | 47.21 | 03/12/2018 2:25 PM PDT | + + + + [...] + + + as of this encounter Instructions Patient Instructions - Annie Gannon AGACNP, FNP - 03/12/2018 2:00 PM PDTIf you have a ny questions or concerns please call: During Clinic hours: [phone] Evenings, weekends and Holidays: [phone], ask for the Oncologist on-call Please contact us immediately if you are experiencing any of the following problems: ? Fever greater than 100.4 degrees. Shaking or chills. ? Vomiting unresponsive to anti-nausea medication ? Blood in urine, stool or nose bleeds ? Unexplained bruising ? Diarrhea more than 3 times a day or not relieved by medication ? Sores in mouth that interfere with eating and/or drinking ? Severe headache, change in vision or balance ? Signs of infection at catheter site (redness, warmth, tenderness or discharge at insertio n site) ? Arm or neck swelling on the side as your catheter ? Painful rash Thank you, Annie Gannon, MSN, ROME-, WOLFGANG-C Nurse Practitioner Hematology & Medical Oncology in this encounter Progress Notes Annie Gannon AGACNP, FNP - 03/12/2018 2:00 PM PDTFormatting of this note may be diffe rent from the original. 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 Cage reports to me today she has no complaints. Her healing surgical incision LLE has no signs of infection and she denies any type of pain . She reports she did have a couple of mouth sores after cycle 1 of treatment, now completely resolved. She had mild nausea the first 2 days after treatment, none since then. Appetite is good. Energy is good. Of note after cycle 1 of treatment she was neutropenic and was in ICU. She tells me it was pretty difficult and she felt horrible. Since discharge from hospital she has slowly recover ed and feeling well over all. History: Prior records reviewed. Tati Cage is [...] medical, surgical, social and family history. MEDICATIONS: citalopram 40 mg oral tablet, Take 40 mg by mouth once daily. dexamethasone 4 mg oral tablet, Take 1 tablet by mouth once daily. Indications: Prevention of Chemotherapy-Induced Nausea and Vomiting hydroCHLOROthiazide 25 mg oral tablet, Take 25 mg by mouth once daily. Dxtenrpxe-Luzrvoeto-El-Mag-Sim 158-02-458-40 mg/30 mL mucous membrane mouthwash, Take 5 mL by mouth four times daily as needed. lidocaine-prilocaine (EMLA) 2.5-2.5 % topical cream, Apply to affected area as needed. Appl y a thick layer to intact skin and cover with an occlusive dressing. loratadine (CLARITIN) 10 mg oral tablet, Take 10 mg by mouth once daily. LORazepam 0.5 mg oral tablet, Take 1 tablet by mouth every six hours as needed for anxiety (2nd line for nausea/vomiting). [facility] [place], [place], [facility] commode for nighttime use following foot amputat ion. nystatin 100,000 unit/gram topical powder, Apply to affected area two times daily. Apply to candidal lesions until lesions have healed. Indications: skin infection, redness in pannus, skin folds OLANZapine 5 mg oral tablet, Take 1 tablet by mouth once daily at bedtime. Indications: Can cer Chemotherapy-Induced Nausea and Vomiting, Depression Treatment Adjunct, anxiety and inso mnia ondansetron 8 mg oral tablet, Take 1 tablet by mouth every twelve hours as needed (3rd line for nausea/vomiting). oxyCODONE (immediate release) 5 mg oral tablet, Take 1 to 3 tablets by mouth every three h ours as needed for moderate pain. Wean off soon and do not combine with other sedating meds like Clonazapam polyethylene glycol 17 gram oral powder in packet, Mix 1 packet and take orally once daily. Take this medication while you are on narcotic pain medication. Hold for loose stool Indica tions: constipation (Patient not taking: Reported on 02/19/2018) pregabalin 150 mg oral capsule, Take 1 capsule by mouth two times daily. Indications: Posto perative Acute Pain, neuropathy, phantom pain prochlorperazine 10 mg oral tablet, Take 1 tablet by mouth every six hours as needed (Give as first line agent for acute or delayed nausea/vomiting). Max dose: 40 mg/day senna-docusate 8.6-50 mg oral tablet, Take 2 tablets by mouth two times daily. Take this me dication while you are on narcotic pain medication. Hold for loose stool Indications: consti pation (Patient not taking: Reported on 02/19/2018) Allergies Allergen Reactions Demerol [Meperidine Hcl] Pruritus Morphine Pruritus PHYSICAL EXAM: BP 137/89 | Pulse 107 | Temp (Src) 36.7 C (98.1 F) (Oral) | RR 16 | Wt 140.8 kg (310 lb 8 oz) | SpO2 97% | BMI 47.21 kg/(m^2) Constitutional - Awake, alert, well developed, overweight, pleasant 32 year old female in n o acute distress. Sitting on exam table. Eyes - Anicteric sclera, no drainage. ENT - Oropharynx moist, without exudates, erythema or lesions. Respiratory - Clear to auscultation bilaterally; no wheezes, rales or rhonchi. Cardiac - Regular rate and rhythm without murmur, rubs or gallops Abdomen/GI - Soft, nontender, nondistended. Skin - No rashes. Warm and dry Musculoskeletal - S/P left BKA. Stump with c/d/I dressing. Dr. Chavira is seeing pt today to assess and possibly remove sutures, please see her note dated same day, 03/12. Remaining extr emities warm, well perfused. Neurologic - A&O x 3. certified pathology assistant grossly intact. Affect/Psych - Appropriate mood and affect. ECOG - 0 LABS: Lab Results Component Value Date WBC 6.9 03/12/2018 HB 10.2 03/12/2018 HCT 31.0 03/12/2018 PLT 559 03/12/2018 MCV 92.0 03/12/2018 RDW 39.6 02/07/2018 Lab Results Component Value Date NA 143 02/19/2018 K 3.9 02/19/2018 CL 106 02/19/2018 BICARB 29 02/19/2018 BUN 16 02/19/2018 CR 0.9 02/19/2018 GLU 88 02/19/2018 CA 9.5 02/19/2018 AST 28 02/19/2018 ALT 26 02/19/2018 AP 46 02/19/2018 TBILI 0.5 02/19/2018 TP 7.2 02/19/2018 ALB 3.5 02/19/2018 ANIONGAP 4 02/07/2018 PATHOLOGY: 02/06/18 Left leg, amputation: ? Synovial [...] 2.5 mg/m2 daily x4 days Neulasta q21d Neutropenia: After cycle 1 was neutropenic and was admitted to ICU. Since discharge from is admit Teri reports she has been feeling well overall. She denies fevers. Energy good. Post-op aspirin can be continued while receiving chemotherapy inpatient but should be DISCO NTINUED at time of discharge due to anticipated thrombocytopenia. This plan has been discuss ed with Dr Coats, who agrees. Pain. Had been taking Tylenol q6h. Advised change to judicious use of oxycodone while on ch emotherapy. An occasional dose of Tylenol or naproxen may be ok during chemotherapy, but shine uld be rare (due to antipyretic and anti-platelet effects, respectively). BKA incision. At risk for wound dehiscence, but benefit of chemotherapy outweighs risk. 03/02 Dr. Chavira will see ROME Jiménez,CHARGE ENTRY SPECIALIST HEMATOLOGY/MEDICAL ONCOLOGY AT [facility] [address] Mailcode: [facility] [place] [address] in this encounter Plan of Treatment +--------+ + + + + | Date | Type | Specialty | Care Team | Description | +--------+ + + + + | 04/24/ | Appointment | Hematology & | Nurse, Hem Starter | | | 2017 | | Oncology | [address] | | | | | | [place] [address] | | +--------+ + + + + | 04/24/ | Office | Hematology & | Annie Gannon, | | | 2017 | Visit | Oncology | ROME,CHARGE ENTRY SPECIALIST [address] | | | | | [address] | | | | | | [place], [place] | | | | | | [address] | | | | | | [phone] | | | | | | | | +--------+ + + + + | 04/24/ | Hospital | Adult Acute Care | Savanna Mari, | | | 2017 | Encounter | | [address] | | | | | | [facility] [place] | | | | | | [address] | | | | | | [phone] | | | | | | | [...] [address] | | | | | | [place], [place] | | | | | | [address] | | | | | | [phone] | | | | | | | | +--------+ + + + + as of this encounter Visit Diagnoses + + | Diagnosis | + + | Synovial sarcoma (HCC) - Primary | + + | 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
--- OUTSIDE RECORDS SUMMARY | ~2018-04-16 | XMS | Encounter Summary ---
Demographics + + + | Address | [address] | | | [place] [address] | + + + | Home Phone [...] Team Providers + +------+ + | Care Body Piercer Name | Role | Phone | + +------+ + | aSnto Gooden MD | PCP | | + [...] | 02/05/ | Lab | Laboratory at [facility] | | Synovial sarcoma | | 2018 | | 3rd Floor [address] | | ([facility]) | | | | [address] [place], | | | | | | [place] [address] | | | | | | [phone] | | | +--------+------+ + + + [...] Road | | | | | | [place] [id number] | | +--------+ + + + + | 04/24/ | Office | Hematology & | Annie Gannon, | | | 2017 | Visit | Oncology | AGASHANAE,MANAGER IMMUNOLOGY [address] | | | | | [address] | | | | | | [place], [place] | | | | | | [address] | | | | | | [phone] | | | | | | | | +--------+ + + + + | 04/24/ | Hospital | Adult Acute Care | Savanna Mari, | | | 2017 | Encounter | | [address] | | | | | | [place], [place] | | | | | | [address] | | | | | | [phone] | | | | | | | [...] [address] | | | | | | [place], [place] | | | | | | [address] | | | | | | [phone] | | | | | | | [...] | + + + | Blood | [facility] [address] | | | [place] [address] | + + + ABO & RH [...] | + + + | Blood | [facility] [address] | | | [place] [address] | + + + CBC AND AUTO [...] | + + + | Blood | [facility] CORE [address] | | | [place] [address] | + + + + + | [...] | ------ ABO & RH | | TYPE[[id number]] F | | inal result ANTIBODY | | SCREEN[[id number]] Fin | | al result Please view [...] | ------ CBC AND AUTO | | DIFF[[id number]] Abnormal Final | | result Please view [...] | >60 | >60 mL/min | | PARAGUAYAN | | | + +---------+ + | EGFR NON | >60 | >60 mL/min | | -PARAGUAYAN | | | + +---------+ + | [...] | + + + | Blood | [facility] [address] | | | [place], [place] [address] | + + + + + | [...]
--- OUTSIDE RECORDS SUMMARY | ~2018-04-16 | XMS | Encounter Summary ---
Demographics + + + | Address | [address] | | | [place] [address] | + + + | Home Phone | | + + + | Preferred Language | Unknown | + + + | Marital Status | Single | + + + | Zoroastrian Affiliation | CAT | + + + [...] Team Providers + +------+ + | Care Four Slide Machine Setter Name | Role | Phone | + [...] | | 2017 | | Oncology at [facility] | | | | | | for Health & Healing | | | | | | [address] | | | | | | Mailcode: [facility] | | | | | | [facility] | | | | | | and Healing, 7th | | | | | | Floor [place], [place] | | | | | | [address] | | | | | | [phone] | | | +--------+ + + + [...] [address] | | | | | | [place] [address] | | +--------+ + + + + | 04/24/ | Office | Hematology & | Annie Gannon, | | | 2017 | Visit | Oncology | AGACNP,FIRE FIGHTING EQUIPMENT SPECIALIST [address] | | | | | [address] | | | | | | [place], [place] | | | | | | [address] | | | | | | [phone] | | | | | | | | +--------+ + + + + | 04/24/ | Hospital | Adult Acute Care | Savanna Mari, | | | 2017 | Encounter | | MD [address] | | | | | | [place], [place] | | | | | | [address] | | | | | | [phone] | | | | | | | [...] [place] | | | | | | [address] | | | | | | [phone] | | | | | | | | +--------+ + + + + as of this encounter Visit Diagnoses Not on filein this encounter"
--- OUTSIDE RECORDS SUMMARY | ~2018-04-16 | XMS | Encounter Summary ---
Demographics + + + | Address | [address] | | | [place] [address] | + + + | Home Phone [...] Author + + + | Author | [facility] | + + + | Organization | [facility] | + + + | Address | Unknown | + + + | Phone | Unavailable | + + + Support + + +---------+ + | Name | Relationship | Address | Phone | + + +---------+ + | ROSE BOWENS | ECON | Unknown | | + + +---------+ + Care Team Providers + +------+ + | Care Business Intelligence Manager Name | Role | Phone | [...] | | 2017 | | Oncology at [place] | | | | | | for Health & Healing | | | | | | [address] | | | | | | Mailcode: [facility] | | | | | | [facility] | | | | | | and Healing, 7th | | | | | | Floor [place], [place] | | | | | | [address] | | | | | | [phone] | | | +--------+ + + + [...] Road | | | | | | [place] [address] | | +--------+ + + + + | 04/24/ | Office | Hematology & | Annie Gannon, | | | 2017 | Visit | Oncology | ROME,SUPERVISOR ACCOUNTS RECEIVABLE [address] | | | | | [address] | | | | | | [place], [place] | | | | | | [address] | | | | | | [phone] | | | | | | | | +--------+ + + + + | 04/24/ | Hospital | Adult Acute Care | Savanna Mari, | | | 2017 | Encounter | | [address] | | | | | | [place], [place] | | | | | | [address] | | | | | | [phone] | | | | | | | [...] [address] | | | | | | [place], [place] | | | | | | [address] | | | | | | [phone] | | | | | | | | +--------+ + + + + as of this encounter Visit Diagnoses Not on filein this encounter"
--- OUTSIDE RECORDS SUMMARY | ~2018-04-16 | XMS | Encounter Summary ---
Demographics + + + | Address | [address] | | | [place] [address] | + + + | Home Phone [...] Author + + + | Author | [facility] | + + + | Organization | [facility] | + + + | Address | Unknown | + + + | Phone | Unavailable | + + + Support + + +---------+ + | Name | Relationship | Address | Phone | + + +---------+ + | ROSE CAGE | ECON | Unknown | | + + +---------+ + Care Team Providers + +------+ + | Care Federal Aid Coordinator Name | Role | Phone | [...] Description | +--------+---------+ + + + | 02/06/ | Surgery | 6A Intra Op [facility] | Haydee Basurto, | LEFT BELOW KNEE | | 2018 | | [facility] | MD [address] [facility] | AMPUTATION | | | | Admitting Desk | [facility] | | | | | Located on the 9 | [place], [place] | | | | | floor [address] [facility] | [address] | | | | | [facility] | [phone] | | | | | [place], [place] | | | | | | [address] | | | +--------+---------+ + + + [...] + + + | Blood Pressure | 114/77 | 02/11/2018 8:49 AM PDT | + + + + | Pulse | 69 | 02/11/2018 8:49 AM PDT | + + + + | Temperature | 36.6 C (97.9 F) | 02/11/2018 8:49 AM PDT | + + + + | Respiratory Rate | 16 | 02/11/2018 8:49 AM PDT | + + + + | Oxygen Saturation | 100% | 02/11/2018 8:49 AM PDT | + + + + | Inhaled Oxygen | - | - | | Concentration | | | + + + + | Weight | 139.7 kg (308 lb) | 02/06/2018 10:00 AM PDT | + + + + | Height | 172.7 cm (5' 8") | 02/06/2018 10:00 AM PDT | + + + + | Body Mass Index | 46.83 | 02/06/2018 10:00 AM PDT | + + + + [...] + as of this encounter Discharge Summaries Pierre Dean DO - 02/11/2018 12:26 PM PDTFormatting of this note may be different from remedios lin. [facility] DEPARTMENT OF ORTHOPAEDICS & REHABILITATION INPATIENT HOSPITAL DISCHARGE SUMMARY & INTERDISCIPLINARY INSTRUCTIONS Patient: Tati Cage CSN: [id number] Admission Date: 02/06/2018 Discharge Date: 02/11/2018 Attending Physician: Haydee Basurto MD PCP: Santo Gooden MD Service: [facility] Orthopaedics & Rehabilitation Diagnoses Principal Final Diagnosis: Synovial sarcoma, left foot Procedures 02/06/18 Left below-knee amputation Brief Hospital Course Tati Cage was admitted for the procedure(s) described above due to a left foot synovial sa rcoma. The inpatient stay related to this procedure(s) took an uncomplicated perioperative course and the patient was followed closely by the attending providers, resident providers, and medical/nursing staff. Post operatively, the patient was admitted to the hospital for c onvalescent care. Pain control was managed with a peripheral nerve block and iv/po pain med ication as needed. The Patient was given 24hrs of IV antibiotics post-operatively. For DVT prophylaxis the patient was started on aspirin and SCDs and SHAILESH hose were also used. The p atient made appropriate gains toward activity and functional goals while an inpatient, worki ng daily with physical therapy. While on the hospital floor, the patient tolerated oral int roberto sufficient to maintain nutrition and hydration. The surgical wound remained clean, dry, and intact without signs concerning for infection. The patient was felt appropriate for dis charge to home, and the patient and/or family members agree with this course of action. Diet Regular Regular diet- There are no restrictions to your diet. You may eat or drink whatever you pr efer, though healthy food choices are recommended. Wound Care -If you have sutures or eleonora, do not get your wound wet for 3-5 days after your operatio n. Sponge bath or cover the incision with a waterproof bandage. Keep your incision covered w ith a dressing until there is no discharge on bandage.- If you have Steri-Strips (paper tape ) over your incision, keep the incision covered until there is no discharge on bandage. Do n ot remove Steri-Strips, they will fall off on their own. Trim edges of the Steri-Strips if t hey start to peel up. Do not get your wound wet for 5-7 days after your operation.- Once wou nd is closed (no drainage), you may shower. Let water run over wound. Pat dry. Do not scrub or soak wound in water.- Avoid using lotions, powders, oils, or ointments on your incision.- DO NOT let anyone start you on antibiotics if they suspect your wound is infected. Call [facility] Orthopedics first at [phone]. Activity Non-weight bearing on left leg. Restrictions: no range of motion restrictions. Encourage to perform extension exercises on left leg. OK to use knee scooter Condition on Discharge Stable Follow-Up Appointments ORTHOPEDICS OUTPATIENT CLINIC: 02/19/2018 2:20 PM Haydee Basurto [facility] Orthopaedics & Rehabilitation [phone] [place] PCP: As needed for any medical concerns not related to your surgery. Medication List START taking these medications acetaminophen 500 mg Tab Commonly known as: TYLENOL Take 2 tablets by mouth every six hours as needed. Use this medication to help wean off you r stronger opiate medication. DO NOT exceed 4000 mg in a 24 hr period. Indications: Pain aspirin EC 325 mg Tbec Take 1 tablet by mouth once daily for 21 days. Indications: Post op VTE ppx gabapentin 300 mg Cap Commonly known as: NEURONTIN Take 3 capsules by mouth three times daily. Indications: Postoperative Acute Pain hydrocortisone 1 % Crea Apply to affected area twice daily as needed (multimodal control of itching). Apply a thin film to clean, dry skin and rub in gently. Indications: Pruritus of Skin polyethylene glycol 17 gram Pwpk Commonly known as: MIRALAX Mix 1 packet and take orally once daily. Take this medication while you are on narcotic marcos n medication. Hold for loose stool Indications: constipation senna-docusate 8.6-50 mg Tab Commonly known as: SENOKOT S Take 2 tablets by mouth two times daily. Take this medication while you are on narcotic marcos n medication. Hold for loose stool Indications: constipation CHANGE how you take these medications oxyCODONE (immediate release) 5 mg Tab Commonly known as: ROXICODONE Take 1-3 tablets by mouth every three hours as needed for moderate pain. Wean off soon and do not combine with other sedating meds like Clonazapam Indications: Pain What changed: how much to take when to take this reasons to take this additional instructions CONTINUE taking these medications citalopram 40 mg Tab Commonly known as: CELEXA Take 40 mg by mouth once daily. CLARITIN 10 mg Tab Generic drug: loratadine Take 10 mg by mouth once daily. CLONAZEPAM ORAL Take by mouth three times daily. hydroCHLOROthiazide 25 mg Tab Commonly known as: HYDRODIURIL Take 25 mg by mouth once daily. phentermine 37.5 mg Cap Take 37.5 mg by mouth once daily. Administer before breakfast. STOP taking these medications HYDROcodone-acetaminophen 10-325 mg Tab Commonly known as: NORCO naproxen 500 mg Tab Commonly known as: NAPROSYN Deep Vein Thrombosis (Leg Blood Clot) Prevention DVT prophylaxis: You are at increased risk of forming a blood clot following your surgery. - We have recommended that you take Aspirin for 3 weeks following your surgery to decrease this risk. - See discharge prescriptions for administration instructions. - Call Orthopedic Clinic at [phone] if any persistent, localized swelling that does no t improve with time or elevation or if you have any persistent calf pain, shortness of breat h or chest pain. Contact Your Physician When to Call: 1. Difficulty breathing, chest pain or unusual shortness of breath; 2. Excessive bleeding, drainage, redness, swelling at the operative site (if the wound appe ars to be worse instead of better each day); 3. Fevers, chills, increased pain that is not relieved by pain medications; 4. Persistent nausea or vomiting; 5. Other specific concerns; Please call: - during business hours (8:00am - 4:30pm); - if after hours and ask for the orthopaedic surgery resident tongue stitcher. Additional Post-Op Instructions / What to Expect - To prevent constipation you have been advised to purchase over the counter medications th at will help you have a bowel movement. These medications include senna and miralax. Take th isacc medications together until you have a bowel movement. Once you reach your goal, you can reduce or stop taking one or both medications. If you have loose or excessive stools stop ta kenyon the medication. Also keep in mind that eating a well balanced diet with plenty of fruit s and vegetables; proper hydration; and walking can also help encourage bowel movements. -Apply ice over the surgical site for 20 minutes at a time as needed for pain. -Avoid alcohol and smoking during the healing process. -You may experience numbness that is usually temporary. -There will be bruising and swelling that should improve in the first 2 weeks. -To reduce likelihood of falling at home, remove throw rugs, loose wires or other objects f rom floor and leave some lights on at night. - Elevate your extremity whenever possible to improve pain and swelling. Pain Management - You are advised to not drive, operate heavy equipment, or consume alcohol while on prescr iption narcotic pain medication. - Take a stool softener while taking narcotic pain medication in order to prevent constipat ion. - If you are running out of pain medication and feel that you will need more, call [phone] during business hours in order to get a new prescription. Please allow 48 hours for ref ills to be processed. - Schedule II narcotics can NOT be called in to a pharmacy. Please arrange for someone to p ick up your prescription or allow additional time for our clinic to mail you requested refil l. - On-call (after hours) MDs are not permitted to prescribe narcotic pain medications. - Prescriptions will not be available through our office on weekends or holidays. - Don't take Non-steroidal anti-inflammatory drugs (for example: Ibuprofen/Advil/Aleve) unt il approved by your orthopedic provider. Vital Signs on Discharge: Ht 1.727 m (5' 8"), Wt 139.7 kg (308 lb), BP 114/77, Pulse 69, Te mperature 36.6 C (97.9 F), RR 16, SpO2 100%, BMI 46.83 kg/(m^2). Condition on Discharge: Improved Discharging Patient To: Home Date and Time of Discharge Summary Completion: 02/11/2018, 12:26 PM Discharging Provider: Pierre Dean DO Discharging Attending: Haydee Basurto MD Thank you for the opportunity to take care of Tati Cage during this inpatient stay, it has been our pleasure. Pierre Dean DO Orthopedic Surgery Resident Pager [phone] [facility] Department of Orthopaedics & Rehabilitation [address] [place] [address] Mail Code: OP31 [facility] [id number] in this encounter Discharge Instructions Lanette Brantley MSW - 02/07/2018AMPUTEE RESOURCES: http://www.Wistone/new-patient/ampower/Pages/Home.aspx http://www.Wistone/new-patient/ampower/ed-resources/Pages/Fxtyh-lcd-Tdmebgupis.asp x http://www.mzvqs0rvnb.org.au/news-events/news/siydddpdg-gcwknx-zejpqgbnnq-ki-elae-zleelrvt- lvo-xkjmu-yyefaygd MENTAL HEALTH/SUICIDE PREVENTION RESOURCES [facility] is a 24-hour behavioral and mental health services center, providing immediate psychi atric care and a path to recovery for people experiencing a mental health crisis. Address: [facility], [address] [place] [id number] Hours: 24 hours/day, 7 days a week, no appointment needed NATIONAL CRISIS LINES 25/03 National Suicide Prevention Lifeline 8-021-248-TALK (4206) Hearing and Speech Impaired 9-857-118-4TTY (4209) 25/03 Mental Health Treatment Referral Line 0-978-635-HELP (8893) [facility] CRISIS SERVICES For emergencies or life threatening situations, please call [facility] Mental Health Crisis Line [phone] (24 hours a day, 7 days a week) [facility] Mental health services for adults, children, and families; walk-ins welcome. Access informa tion and referral line for [place]'s services in housing, recovery and assistance. Address: [facility]/Referral service [address] [place] [address] (Near [address] [place] [address]) [place], [address] Transit: mymission2 bus #4 Hours: 7 a.m.-10:00 p.m, 7 days a week. in this encounter Medications at Time of Discharge + + +--------+---------+ + + | Medication | Sig. | Disp. | Refills | Start | End Date | | | | | | Date | | + + +--------+---------+ + + | citalopram 40 mg | Take 40 mg by mouth | | | | | | oral tablet | once daily. | | | | | + + +--------+---------+ + + | loratadine | Take 10 mg by mouth | | | | | | (CLARITIN) 10 mg | once daily. | | | | | | oral tablet | | | | | | + + +--------+---------+ + + | nystatin 100,000 | Apply to affected | 15 g | 0 | 06/12/20 | | | unit/gram topical | area [...] | | | | | + + +--------+---------+ + + as of this encounter Progress Notes Yasmeen Dorman NP - 02/11/2018 9:59 AM PDTAPS follow-up note APS returned to pull peripheral nerve block. Nerve block was stopped prior to midnight 02/11. Nerve block catheter was discontinued. Tip intact. Patient tolerated the procedure well. APS will sign off. I discussed our findings and recommendations with primary team provider, Huma Foster NP. Ronnie Dorman (Mr.) MSN, ACNP- Nurse Practitioner [facility] [address] [place] [id number] Pierre Dean DO - 02/11/2018 6:46 AM PDTFormatting of this note may be different from remedios lin. [facility] DEPARTMENT OF ORTHOPAEDICS & REHABILITATION PROGRESS NOTE Patient: Tati Cage Encounter Date: 02/10/2018 Admitted: 02/06/2018 Attending Physician: Haydee Basurto MD # 5 Orthopedic Diagnose(s): - Left foot synovial sarcoma Procedure / Procedure Date: 02/06/2018 - Left below knee amputation Subjective: Interval Hx: Doing well. Catheter has been off all night and patient reports never needing to bolus. Wou fadia like to go home today. Objective: Last Vitals: BP 119/55 | Pulse 69 | Temp 36.7 C (98.1 F) | RR 16 | Ht 1.727 m (5' 8") | Wt 139.7 kg (308 lb) | SpO2 98% | BMI 46.83 kg/(m^2) Recent Laboratory Data: Lab Results Component Value Date WBC 8.94 02/07/2018 HCT 31.8 02/07/2018 CR 0.66 02/07/2018 No Data Recorded Exam: General: Well appearing, NAD; A+O x3 CV/Resp: Breathing comfortably, regular pulse by palpation wrist MSK: LLE: Covered in stump protector, will assess prior to discharge. Residual limb sensate and well perfused A/P: Tati Cage is a 32 y.o. female with the above noted diagnose(s). Doing well po st-op - Immobility due to injury/illness: - NWB LLE - PT/OT ordered - Pain: Maintain adequate analgesia; Tylenol, oxycodone, gabapentin, sciatic PNB managed b y APS. To be removed this AM - Wound Care: Dressing to remain intact, will change prior to discharge. - ID: - ceFAZolin, for 24 hours perioperatively, completed - Radiology: Post-op reviewed - Labs: Not indicated - Diet: Advance diet as tolerated - DVT prophylaxis (High risk) - SCD(s) while in bed - Early ambulation as able - Chemoprophylaxis: ASA 325 mg daily - Other: - Pre-chemotherapy TTE completed - Dispo: - Discharge planned for today - Orthopaedic Follow-up: As scheduled or the patient should call to schedule/confirm a follow up appo intment with Orthopaedic Oncology approximately 2 weeks from discharge for wound check and s uture removal. Pierre Dean DO Orthopedic Surgery Resident Pager [phone] Pierre Dean DO - 02/10/2018 11:43 AM PDTFormatting of this note may be different from remedios lin. [facility] DEPARTMENT OF ORTHOPAEDICS & REHABILITATION PROGRESS NOTE Patient: Tati Cage Encounter Date: 02/09/2018 Admitted: 02/06/2018 Attending Physician: Haydee Basurto MD HD# 4 Orthopedic Diagnose(s): - Left foot synovial sarcoma Procedure / Procedure Date: 02/06/2018 - Left below knee amputation Subjective: Interval Hx: Pain is improved, but she is very apprehensive about getting the catheter turned off. Other olsen doing well. Objective: Last Vitals: BP 120/72 | Pulse 71 | Temp 36.9 C (98.4 F) | RR 18 | Ht 1.727 m (5' 8") | Wt 139.7 kg (308 lb) | SpO2 97% | BMI 46.83 kg/(m^2) Recent Laboratory Data: Lab Results Component Value Date WBC 8.94 02/07/2018 HCT 31.8 02/07/2018 CR 0.66 02/07/2018 No Data Recorded Exam: General: Well appearing, NAD; A+O x3 CV/Resp: Breathing comfortably, regular pulse by palpation wrist MSK: LLE: Dressing c/d/i Residual limb sensate and well perfused A/P: Tati Cage is a 32 y.o. female with the above noted diagnose(s). Doing well po st-op - Immobility due to injury/illness: - NWB LLE - PT/OT ordered - Pain: Maintain adequate analgesia; Tylenol, oxycodone, gabapentin, sciatic PNB managed b y APS. To be turned off overnight and removed tomorrow morning for potential discharge. - Wound Care: Dressing to remain intact - ID: - ceFAZolin, for 24 hours perioperatively, completed - Radiology: Post-op reviewed - Labs: Not indicated - Diet: Advance diet as tolerated - DVT prophylaxis (High risk) - SCD(s) while in bed - Early ambulation as able - Chemoprophylaxis: ASA 325 mg daily - Other: - Pre-chemotherapy TTE completed - Dispo: - Discharge planned for tomorrow - Orthopaedic Follow-up: As scheduled or the patient should call to schedule/confirm a follow up appo intment with Orthopaedic Oncology approximately 2 weeks for discharge. Pierre Dean DO Orthopedic Surgery Resident Pager [phone] Jesusita Mccullough NP - 02/10/2018 11:24 AM PDTFormatting of this note may be different from the original. INPATIENT ADULT PAIN SERVICE PERIPHERAL NERVE BLOCK PROGRESS NOTE 02/10/2018 Author: Jesusita Mccullough NP Main complaint: Acute postoperative pain. Block day # 4. Ms. Cage is POD# 4. Status post: Left BKA due to synovial sarcoma of the foot Previously Obtained: Past Medical History: Diagnosis Date Endometriosis History of ITP Synovial sarcoma (HCC) Interval events since last APS visit: Doing okay. Wants more oxycodone Type of peripheral nerve block: left lower extremity Sciatic catheter Ms. Cage complains of left lower extremity pain. Ms. Elizabeths pain score at rest is 4/10. With activity, her pain score is 6/10. Specific ac tivities that exacerbate Ms. Elizbaeths pain include most activities. Ms. Cage is [...] chronic or preoperative pain: yes: location: left foot. Typical intensity va riable/10 Prior to hospitalization: Hydrocodone as hydrocodone/acetaminophen 10/325: 1/day Current Medications: Current Facility-Administered Medications Medication Dose Route Frequency Last Rate acetaminophen (TYLENOL) tablet 1,000 mg 1,000 mg oral Q6H aspirin EC tablet 325 mg 325 mg oral DAILY citalopram (CELEXA) tablet 40 mg 40 mg oral DAILY gabapentin (NEURONTIN) capsule 300 mg 300 mg oral ONCE gabapentin (NEURONTIN) capsule 900 mg 900 mg oral TID hydroCHLOROthiazide (HYDRODIURIL) tablet 25 mg 25 mg oral DAILY loratadine (CLARITIN) tablet 10 mg 10 mg oral DAILY nystatin (MYCOSTATIN) powder topical BID polyethylene glycol (MIRALAX) packet 17 g 17 g oral DAILY senna-docusate (SENOKOT S) 8.6-50 mg 2 tablet 2 tablet oral BID Current Facility-Administered Medications Medication Dose Route Frequency Last Rate bisacodyl (DULCOLAX) suppository 10 mg 10 mg rectal DAILY PRN clonazePAM (KLONOPIN) tablet 1 mg 1 mg oral TID PRN diphenhydrAMINE (BENADRYL) capsule 25 mg 25 mg oral Q6H PRN hydrocortisone 1 % cream topical BID PRN HYDROmorphone (DILAUDID) injection 0.2-0.6 mg 0.2-0.6 mg intravenous Q2H PRN melatonin tablet 3 mg 3 mg oral HS PRN oxyCODONE (immediate release) (ROXICODONE) tablet 5-15 mg 5-15 mg oral Q3H PRN polyethylene glycol (MIRALAX) packet 34 g 34 g oral TID PRN Current Facility-Administered Medications Medication Dose Route Frequency Last Rate ropivacaine (PF) 0.2 % in NaCl 0.9 % peripheral nerve block (CADD PUMP) injection CON TINUOUS 6 mL/hr at 02/10/18 0600 Pump Infusion: Ropivacaine 0.2% at 6 mL/hour The above medication list includes the following analgesics: Opioids: Oxycodone: Immediate Release 65 mg/day Other analgesics: Acetaminophen PO 3000 Mg/24 hours and Gabapentin 1800 Mg/24 hours Other psychoactive medications: clonazepam 1 Mg/24 hours, Anticoagulants: No Lab Results Component Value Date INRPT 1.03 01/23/2018 PLT 289 02/07/2018 Allergies: Allergies Allergen Reactions Demerol [Meperidine Hcl] Pruritus Morphine Pruritus Physical Exam: Last Vitals: BP 120/72 | Pulse 71 | Temp 36.9 C (98.4 F) | RR 18 | Ht 1.727 m (5' 8") | Wt 139.7 kg (308 lb) | SpO2 97% | BMI 46.83 kg/(m^2) 24 hour Vitals min/max : Systolic (24hrs), Av , Min:120 , Max:143 Diastolic (24hrs), Av, Min:72, Max:77 Pulse Min: 71 Max: 86 Temp Min: 36.6 C (97.9 F) Max: 37.1 C (98.8 F) Resp Min: 15 Max: 18 SpO2 Min: 97 % Max: 100 % General Appearance and Neurological Examination: Mental Status:Alert Orientation: Oriented Sensory: Deferred Motor: Deferred Nerve block site: Depth at skin: 11 cm. Clinically significant migration since placement: NO Dressing: Intact Exit Site: Clean and Non-tender Catheter site exposed? No Pertinent organ system(s): None Assessment: Ms. Cage rates pain relief as good. My personal assessment is concordant with this evaluat ion. Some difficulty with block weaning as Ms. Cage is having burning pain. Increased gabapentin today, getting sleepy from bigger doses of oxycodone. Recommend stopping basal on block tod ay and leaving bolus dosing for back up, with the goal of removing block in the morning. PNB troubleshooting was needed: no Diagnosis: 1. Acute postoperative pain, left LE 2. Synovial sarcoma of the left foot Recommendations: Wean PNB to off by this evening. Keep overnight, may use bolus dose as rescue if needed, APS to remove block tomorrow TRUDI Stanley Increase gabapentin to 900 TID. Order placed. Continue oxycodone as needed, discussed taking only 10 mg at a time if needed. Continue APAP scheduled. Consider an NSAID Stop diphenhydramine Peripheral nerve block in place: If Barton is in place, it may be removed if deemed appropri ate by primary care team. I discussed our findings and recommendations with primary care team provider Thania GONZALEZ and Srikanth Foster BRAZING MACHINE FEEDER Orthopedic Surgery . Jesusita Mccullough NP Adult Pain Service Pager [phone] Team Pager [phone] Pierre Dean, DO - 02/09/2018 1:34 PM PDTFormatting of this note may be different from remedios lin. [facility] DEPARTMENT OF ORTHOPAEDICS & REHABILITATION PROGRESS NOTE Patient: Tati Cage Encounter Date: 02/09/2018 Admitted: 02/06/2018 Attending Physician: Haydee Basurto MD HD# 3 Orthopedic Diagnose(s): - Left foot synovial sarcoma Procedure / Procedure Date: 02/06/2018 - Left below knee amputation Subjective: Interval Hx: Doing well, pain control continues to improve. Trialing weaning off catheter today. Objective: Last Vitals: BP 141/92 | Pulse 77 | Temp 36.5 C (97.7 F) | RR 16 | Ht 1.727 m (5' 8") | Wt 139.7 kg (308 lb) | SpO2 100% | BMI 46.83 kg/(m^2) Recent Laboratory Data: Lab Results Component Value Date WBC 8.94 02/07/2018 HCT 31.8 02/07/2018 CR 0.66 02/07/2018 No Data Recorded Exam: General: Well appearing, NAD; A+O x3 CV/Resp: Breathing comfortably, regular pulse by palpation wrist MSK: LLE: Dressing c/d/i Residual limb sensate and well perfused A/P: Tati Cage is a 32 y.o. female with the above noted diagnose(s). Doing well po st-op - Immobility due to injury/illness: - NWB LLE - PT/OT ordered - Pain: Maintain adequate analgesia; Tylenol, oxycodone, gabapentin, sciatic PNB managed b y APS - Wound Care: Dressing to remain intact - ID: - ceFAZolin, for 24 hours perioperatively, completed - Radiology: Post-op reviewed - Labs: Not indicated - Diet: Advance diet as tolerated - DVT prophylaxis (High risk) - SCD(s) while in bed - Early ambulation as able - Chemoprophylaxis: ASA 325 mg daily - Other: - Pre-chemotherapy TTE ordered - Dispo: - Pending clinical course, likely home Saturday - Orthopaedic Follow-up: As scheduled or the patient should call to schedule/confirm a follow up appo intment with Orthopaedic Oncology approximately 2 weeks for discharge. Pierre Dean DO Orthopedic Surgery Resident Pager [phone] John Burciaga - 02/09/2018 12:59 PM PDTTransthoracic echocardiogram completed. Final report to follow. Macie Coats MD - 02/09/2018 10:05 AM PDTFormatting of this note may be different from the original. INPATIENT PROGRESS NOTE Hospital Day:3 Author; MACIE COATS MD Interval Hx: still issues with pain at the surgery site. no complaints of foot pain. Physical Exam: Last Vitals: BP 124/70 | Pulse 87 | Temp 36.5 C (97.7 F) | RR 16 | Ht 1.727 m (5' 8") | Wt 139.7 kg (308 lb) | SpO2 96% | BMI 46.83 kg/(m^2) O2 Delivery Device: None (room air) (02/09/18 0747) 24 Hour Vital Min/Max: Systolic (24hrs), Av , Min:124 , Max:130 Diastolic (24hrs), Av, Min:51, Max:80Puls e Av.5 Min: 86 Max: 87 Temp Av.8 C (98.2 F) Min: 36.5 C (97.7 F) Max: 37.1 C (98.8 F) Resp Av Min: 16 Max: 16 SpO2 Av.5 % Min: 96 % Max: 100 % Intake/Output Summary (Last 24 hours) at 02/09/18 1005 Last data filed at 02/09/18 0745 Gross per 24 hour Intake 1450 ml Output 0 ml Net 1450 ml dressing intact Assessment and Plan: Stable. work on weaning block and moving to orals. Once on orals will d/c home. Arnold Lewis MD - 02/09/2018 8:01 AM PDTFormatting of this note may be dif ferent from the original. INPATIENT ADULT PAIN SERVICE PERIPHERAL NERVE BLOCK PROGRESS NOTE 02/09/2018 Author: ARNOLD GAMBLE MD Adult Pain Service Attending Physician: Arnold Hall MD Main complaint: Acute postoperative pain. Block day # 3. Ms. Cage is POD# 3. 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 Type of peripheral nerve block: left lower extremity Popliteal fossa Ms. Cage complains of left lower extremity pain. Ms. Cage's pain score at rest is 2/10. With activity, her pain score is 8/10. Specific ac tivities that exacerbate Ms. Cage's pain include cannot name aggravators. Ms. Cage is satis fied with current level of pain. ROS/Side Effects: Nausea/Vomiting: none Pruritus: none Numbness/Weakness: none Low BP: none Dizziness: none Sedation: none General: Patient complains of negative. Other complaints: none Current activity level: Out of bed Able to work with PT:Yes Diet: Full liquids/Reg Diet/Tube Feeds Past Medical History: History of chronic or preoperative pain: yes: location: left foot. Typical intensity vari able/10 Prior to hospitalization: Hydrocodone as hydrocodone/acetaminophen 10/325: 1/day Current Medications: Current Facility-Administered Medications Medication Dose Route Frequency Last Rate acetaminophen (TYLENOL) tablet 1,000 mg 1,000 mg oral Q6H aspirin EC tablet 325 mg 325 mg oral DAILY citalopram (CELEXA) tablet 40 mg 40 mg oral DAILY gabapentin (NEURONTIN) capsule 600 mg 600 mg oral TID hydroCHLOROthiazide (HYDRODIURIL) tablet 25 mg 25 mg oral DAILY loratadine (CLARITIN) tablet 10 mg 10 mg oral DAILY nystatin (MYCOSTATIN) powder topical BID polyethylene glycol (MIRALAX) packet 17 g 17 g oral DAILY senna-docusate (SENOKOT S) 8.6-50 mg 2 tablet 2 tablet oral BID Current Facility-Administered Medications Medication Dose Route Frequency Last Rate bisacodyl (DULCOLAX) suppository 10 mg 10 mg rectal DAILY PRN clonazePAM (KLONOPIN) tablet 1 mg 1 mg oral TID PRN diphenhydrAMINE (BENADRYL) capsule 25 mg 25 mg oral Q6H PRN hydrocortisone 1 % cream topical BID PRN HYDROmorphone (DILAUDID) injection 0.2-0.6 mg 0.2-0.6 mg intravenous Q2H PRN melatonin tablet 3 mg 3 mg oral HS PRN oxyCODONE (immediate release) (ROXICODONE) tablet 5-15 mg 5-15 mg oral Q3H PRN polyethylene glycol (MIRALAX) packet 34 g 34 g oral TID PRN Current Facility-Administered Medications Medication Dose Route Frequency Last Rate ropivacaine (PF) 0.2 % in NaCl 0.9 % peripheral nerve block (CADD PUMP) injection CON TINUOUS 10 mL/hr at 02/09/18 0347 Pump Infusion: Ropivacaine 0.2% at 10 mL/hour The above medication list includes the following analgesics: Opioids: Oxycodone: Immediate Release 80 mg/day Other analgesics: Acetaminophen PO scheduled and Gabapentin 600 mg TID Other psychoactive medications: Celexa, Klonopin, Benadryl Anticoagulants: No Lab Results Component Value Date INRPT 1.03 01/23/2018 PLT 289 02/07/2018 Allergies: Allergies Allergen Reactions Demerol [Meperidine Hcl] Pruritus Morphine Pruritus Physical Exam: Last Vitals: BP 124/70 | Pulse 87 | Temp 36.5 C (97.7 F) | RR 16 | Ht 1.727 m (5' 8") | Wt 139.7 kg (308 lb) | SpO2 96% | BMI 46.83 kg/(m^2) 24 hour Vitals min/max : Systolic (24hrs), Av , Min:121 , Max:130 Diastolic (24hrs), Av, Min:51, Max:80 Pulse Min: 86 Max: 89 Temp Min: 36.5 C (97.7 F) Max: 37.1 C (98.8 F) Resp Min: 16 Max: 18 SpO2 Min: 96 % Max: 100 % General Appearance and Neurological Examination: Mental Status:Alert Orientation: Oriented Sensory: Deferred Motor: Deferred Nerve block site: Depth at skin: 11 cm. Clinically significant migration since placement: NO Dressing: Intact Exit Site: mild leaking Catheter site exposed? No Pertinent organ system(s): none Assessment: Ms. Cage rates pain relief as good. My personal assessment is concordant with this evaluat ion. PNB troubleshooting was needed: no. Leaking at entry site with higher infusion rate. Plan is to go home tomorrow. We will attempt transition from PNB today. Diagnosis: 1. Acute postoperative pain, left LE 2. Synovial sarcoma of the left foot Recommendations: Attempt transition from nerve block today. We will turn it back on if pain becomes severe. Continue oxycodone, gabapentin, and APAP Could add NSAID if OK with surgery Peripheral nerve block in place: If Barton is in place, it may be removed if deemed appropri ate by primary care team. For today's evaluation, I have included my personal review of Ms. Cage's history and physic al examination. I also used the following components in my medical decision making: Laborat ory studies reviewed. Review and summary of old medical records (source: [facility]), as summarized in the body of the note. Discussion of case with another healthcare provider nurse. Please page APS #[phone] with questions and concerns. MD Thanh SHEA Julio A, MD - 02/08/2018 9:45 AM PDTFormatting of this note may be dif ferent from the original. INPATIENT ADULT PAIN SERVICE PERIPHERAL NERVE BLOCK PROGRESS NOTE 02/08/2018 Author: ARNOLD GAMBLE MD Adult Pain Service Attending Physician: Arnold Hall MD Main complaint: Acute postoperative pain. Block day # 2. Ms. Cage is POD# 2. 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 Cage complains of left lower extremity pain. Ms. Cage's pain score at rest is 2/10. With activity, her pain score is 10/10. Specific a ctivities that exacerbate Ms. Elizabeths pain include cannot name aggravators. Ms. Cage is sati sfied with current level of pain. Pain well controlled yesterday evening. She woke up in sev ere pain this morning and is trying to catch up by taking her oxycodone. ROS/Side Effects: Nausea/Vomiting: none Pruritus: none Numbness/Weakness: none Low BP: none Dizziness: none Sedation: none General: Patient complains of negative. Other complaints: No phantom sensation or pain at this time. Current activity level: Out of bed Able to work with PT:Yes Diet: Full liquids/Reg Diet/Tube Feeds Past Medical History: History of chronic or preoperative pain: yes: location: left foot. Typical intensity vari able/10 Prior to hospitalization: Hydrocodone as hydrocodone/acetaminophen 10/325: 1/day Current Medications: Current Facility-Administered Medications Medication Dose Route Frequency Last Rate acetaminophen (TYLENOL) tablet 1,000 mg 1,000 mg oral Q6H aspirin EC tablet 325 mg 325 mg oral DAILY citalopram (CELEXA) tablet 40 mg 40 mg oral DAILY gabapentin (NEURONTIN) capsule 300 mg 300 mg oral BID gabapentin (NEURONTIN) capsule 600 mg 600 mg oral DAILY hydroCHLOROthiazide (HYDRODIURIL) tablet 25 mg 25 mg oral DAILY loratadine (CLARITIN) tablet 10 mg 10 mg oral DAILY nystatin (MYCOSTATIN) powder topical BID polyethylene glycol (MIRALAX) packet 17 g 17 g oral DAILY senna-docusate (SENOKOT S) 8.6-50 mg 2 tablet 2 tablet oral BID Current Facility-Administered Medications Medication Dose Route Frequency Last Rate bisacodyl (DULCOLAX) suppository 10 mg 10 mg rectal DAILY PRN clonazePAM (KLONOPIN) tablet 1 mg 1 mg oral TID PRN HYDROmorphone (DILAUDID) injection 0.2-0.6 mg 0.2-0.6 mg intravenous Q2H PRN melatonin tablet 3 mg 3 mg oral HS PRN oxyCODONE (immediate release) (ROXICODONE) tablet 5-15 mg 5-15 mg oral Q3H PRN polyethylene glycol (MIRALAX) packet 34 g 34 g oral TID PRN Current Facility-Administered Medications Medication Dose Route Frequency Last Rate ropivacaine (PF) 0.2 % in NaCl 0.9 % peripheral nerve block (CADD PUMP) injection CON TINUOUS 8 mL/hr at 02/08/18 0024 Pump Infusion: Ropivacaine 0.2% at 8 mL/hour The above medication list includes the following analgesics: Opioids: Hydromorphone IV prn, 0.3 mg/day and Oxycodone: Immediate Release 35 mg/day Other analgesics: Acetaminophen PO scheduled and Gabapentin 300-600-300 Other psychoactive medications: Klonopin, Celexa Anticoagulants: No Lab Results Component Value Date INRPT 1.03 01/23/2018 PLT 289 02/07/2018 Allergies: Allergies Allergen Reactions Demerol [Meperidine Hcl] Pruritus Morphine Pruritus Physical Exam: Last Vitals: BP 121/61 | Pulse 89 | Temp 36.9 C (98.4 F) | RR 18 | Ht 1.727 m (5' 8") | Wt 139.7 kg (308 lb) | SpO2 98% | BMI 46.83 kg/(m^2) 24 hour Vitals min/max : Systolic (24hrs), Av , Min:114 , Max:127 Diastolic (24hrs), Av, Min:59, Max:71 Pulse Min: 88 Max: 98 Temp Min: 36.9 C (98.4 F) Max: 37.6 C (99.7 F) Resp Min: 18 Max: 20 SpO2 Min: 97 % Max: 100 % General Appearance and Neurological Examination: Mental Status:Alert Orientation: Oriented Sensory: Deferred Motor: Deferred Nerve block site: Depth at skin: covered by dressing. Clinically significant migration since placement: NO Dressing: Intact Exit Site: Clean and Non-tender Catheter site exposed? No Pertinent organ system(s): n/a Assessment: Ms. Cage rates pain relief as good. Pain is coming down after taking her oxycodone. My per lore assessment is concordant with this evaluation. PNB troubleshooting was needed: no Diagnosis: 1. Acute postoperative pain, left LE 2. Synovial sarcoma of the left foot Recommendations: Continue peripheral nerve block unchanged, titrate per protocol as needed Increase gabapentin to 600 mg TID (ordered) Continue schedule APAP po Consider mirror therapy Peripheral nerve block in place: If Barton is in place, it may be removed if deemed appropri ate by primary care team. For today's evaluation, I have included my personal review of Ms. Cage's history and physic al examination. I also used the following components in my medical decision making: Laborat ory studies reviewed. Review and summary of old medical records (source: [facility]), as summarized in the body of the note. Discussion of case with another healthcare provider nurse. Please page APS #[phone] with questions and concerns. MD Sandra SHEA Taylor R, MD - 02/08/2018 9:05 AM PDTFormatting of this note may be different from t jorge luis original. [facility] DEPARTMENT OF ORTHOPAEDICS & REHABILITATION PROGRESS NOTE Patient: Tati Cage Encounter Date: 02/06/2018 Admitted: 02/06/2018 Attending Physician: Haydee Basurto MD HD# 2 Orthopedic Diagnose(s): - Left foot synovial sarcoma Procedure / Procedure Date: 02/06/2018 - Left below knee amputation Subjective: Interval Hx: Pain control improving Objective: Last Vitals: BP 121/61 | Pulse 89 | Temp 36.9 C (98.4 F) | RR 18 | Ht 1.727 m (5' 8") | Wt 139.7 kg (308 lb) | SpO2 98% | BMI 46.83 kg/(m^2) Recent Laboratory Data: Lab Results Component Value Date WBC 8.94 02/07/2018 HCT 31.8 02/07/2018 CR 0.66 02/07/2018 No Data Recorded Exam: General: Well appearing, NAD; A+O x3 CV/Resp: Breathing comfortably, regular pulse by palpation wrist MSK: LLE: Dressing c/d/i Residual limb sensate and well perfused A/P: Tati Cage is a 32 y.o. female with the above noted diagnose(s). Doing well po st-op - Immobility due to injury/illness: - NWB LLE - PT/OT ordered - Pain: Maintain adequate analgesia; Tylenol, oxycodone, gabapentin, sciatic PNB managed b y APS - Wound Care: Dressing to remain intact - ID: - ceFAZolin, for 24 hours perioperatively, completed - Radiology: Post-op reviewed - Labs: Ordered - Diet: Advance diet as tolerated - DVT prophylaxis (High risk) - SCD(s) while in bed - Early ambulation as able - Chemoprophylaxis: ASA 325 mg daily - Other: - Pre-chemotherapy TTE ordered - Dispo: - Pending clinical course, likely home Saturday - Orthopaedic Follow-up: As scheduled or the patient should call to schedule/confirm a follow up appo intment with Orthopaedic Oncology approximately 2 weeks for discharge. HAYDE FLORES MD Orthopaedics PGY-3 Pager: [phone], MD Haydee - 02/08/2018 8:57 AM PDTPt sleeping PE: Ht 1.727 m (5' 8"), Wt 139.7 kg (308 lb), BP 121/61, Pulse 89, Temperature 36.9 C (98.4 F), RR 18, SpO2 98%, BMI 46.83 kg/(m^2). dsg c/d/I A/P: s/p L BKA -OOB -sciatic catheter per APS -likely dc SaturdayHayde Flores MD - 02/07/2018 8:51 AM PDTFormatting of this note may be different from the original. [facility] DEPARTMENT OF ORTHOPAEDICS & REHABILITATION PROGRESS NOTE Patient: Tati Cage Encounter Date: 02/06/2018 Admitted: 02/06/2018 Attending Physician: Haydee Basurto MD HD# 1 Orthopedic Diagnose(s): - Left foot synovial sarcoma Procedure / Procedure Date: 02/06/2018 - Left below knee amputation Subjective: Interval Hx: Complaining of some pain along posterior leg Objective: Last Vitals: BP 114/60 | Pulse 79 | Temp 36.9 C (98.4 F) | RR 16 | Ht 1.727 m (5' 8") | Wt 139.7 kg (308 lb) | SpO2 98% | BMI 46.83 kg/(m^2) Recent Laboratory Data: Lab Results Component Value Date WBC 8.94 02/07/2018 HCT 31.8 02/07/2018 CR 0.66 02/07/2018 CBG Result Av.5 Min: 79 Max: 100 Exam: General: Well appearing, NAD; A+O x3 CV/Resp: Breathing comfortably, regular pulse by palpation wrist MSK: LLE: Dressing c/d/i Residual limb sensate and well perfused A/P: Tati Cage is a 32 y.o. female with the above noted diagnose(s). Doing well po st-op - Immobility due to injury/illness: - NWB LLE - PT/OT ordered - Pain: Maintain adequate analgesia; Tylenol, oxycodone, gabapentin, sciatic PNB managed b y APS - Wound Care: Dressing to remain intact - ID: - ceFAZolin, for 24 hours perioperatively, completed - Radiology: Post-op reviewed - Labs: Ordered - Diet: Advance diet as tolerated - DVT prophylaxis (High risk) - SCD(s) while in bed - Early ambulation as able - Chemoprophylaxis: ASA 325 mg daily - Other: - None - Dispo: - Pending clinical course - Orthopaedic Follow-up: As scheduled or the patient should call to schedule/confirm a follow up appo intment with Orthopaedic Oncology approximately 2 weeks for discharge. HAYDE FLORES MD Orthopaedics PGY-3 Pager: [phone] Madiha Lopez DNP - 02/07/2018 7:54 AM PDTFormatting of this note may be d ifferent from the original. INPATIENT ADULT PAIN SERVICE PERIPHERAL NERVE BLOCK INITIAL VISIT NOTE Date of Service: 02/07/2018 Author: Madiha Beckford DNP Requesting Provider: Service: Orthopedic Surgery Main Complaint: acute postoperative pain Block day # 1. Tati Cage is POD# 1. 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 Cage complains of right sided leg pain. Ms. Elizabeths pain sc ore at rest is "increaseds chikis working with PT" previously "comfortable" Specific activiti es that exacerbate Tati Elizabeths pain include most activities. Ms. Cage's pain is impr davis by PNB. Ms. Elizabeths is satisfied with current level of pain. Associated symptoms include: none Other complaints: none History of chronic or preoperative pain: yes: location: left sided foot and leg pain. Current activity level: Out of bed Able to work with PT:Yes Diet: Full liquids/Reg Diet/Tube Feeds Current Medications: Current Facility-Administered Medications Medication Dose Route Frequency Last Rate aspirin EC tablet 325 mg 325 mg oral DAILY citalopram (CELEXA) tablet 40 mg 40 mg oral DAILY gabapentin (NEURONTIN) capsule 300 mg 300 mg oral TID hydroCHLOROthiazide (HYDRODIURIL) tablet 25 mg 25 mg oral DAILY loratadine (CLARITIN) tablet 10 mg 10 mg oral DAILY nystatin (MYCOSTATIN) powder topical BID polyethylene glycol (MIRALAX) packet 17 g 17 g oral DAILY senna-docusate (SENOKOT S) 8.6-50 mg 2 tablet 2 tablet oral BID Current Facility-Administered Medications Medication Dose Route Frequency Last Rate acetaminophen (TYLENOL) tablet 325-650 mg 325-650 mg oral Q4H PRN bisacodyl (DULCOLAX) suppository 10 mg 10 mg rectal DAILY PRN HYDROmorphone (DILAUDID) injection 0.2-0.6 mg 0.2-0.6 mg intravenous Q2H PRN melatonin tablet 3 mg 3 mg oral HS PRN oxyCODONE (immediate release) (ROXICODONE) tablet 5-15 mg 5-15 mg oral Q3H PRN polyethylene glycol (MIRALAX) packet 34 g 34 g oral TID PRN Current Facility-Administered Medications Medication Dose Route Frequency Last Rate ropivacaine (PF) 0.2 % in NaCl 0.9 % peripheral nerve block (CADD PUMP) injection CON TINUOUS 6 mL/hr at 02/07/18 0730 Pump Infusion: Ropivacaine 0.2% at 6 mL/hour The above medication list includes the following analgesics: Opioids: Oxycodone 15 mg/24 hours Other analgesics: APAP 650 mg every 4 hours as needed, Gabapentin 300 mg TID Other psychoactive medications: Citalopram 40 mg daily, Melatonin Anticoagulants: No Lab Results Component Value Date INRPT 1.03 01/23/2018 PLT 289 02/07/2018 Allergies: Allergies Allergen Reactions Demerol [Meperidine Hcl] Pruritus Morphine Pruritus Review of systems: General: Patient complains of negative. 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 No kids. Lives with her mother Rose. Labs: Lab Results Component Value Date WBC 8.94 02/07/2018 HB 10.8 (L) 02/07/2018 HCT 31.8 (L) 02/07/2018 PLT 289 02/07/2018 MCV 88.8 02/07/2018 RDW 39.6 02/07/2018 Lab Results Component Value Date NA 139 02/07/2018 K 4.0 02/07/2018 CL 108 02/07/2018 BICARB 27 02/07/2018 BUN 15 02/07/2018 CR 0.66 02/07/2018 GLU 98 02/07/2018 CA 8.0 (L) 02/07/2018 AST 34 01/23/2018 ALT 36 01/23/2018 AP 68 01/23/2018 TBILI 0.7 01/23/2018 TP 8.2 (H) 01/23/2018 ALB 4.0 01/23/2018 No results found for: APTT Radiology: NA Physical Exam: BP 114/60 | Pulse 79 | Temp 36.9 C (98.4 F) | RR 16 | Ht 1.727 m (5' 8") | Wt 139.7 kg (308 lb) | SpO2 98% | BMI 46.83 kg/(m^2) 24 hour Vitals min/max : Systolic (24hrs), Av , Min:99 , Max:154 Diastolic (24hrs), Av, Min:57, Max:107 Pulse Min: 79 Max: 116 Temp Min: 36 C (96.8 F) Max: 37.8 C (100 F) Resp Min: 11 Max: 23 SpO2 Min: 94 % Max: 100 % General Appearance and Neurological Examination: Mental Status:Alert Orientation: Oriented Sensory: Decreased in area of block Motor: Decreased in area of block Nerve block site: Depth at skin: 13 cm. Clinically significant migration since placement: NO Dressing: Intact Exit Site: Clean and Non-tender General appearance: healthy, alert and cooperative Assessment: Tati Cage is a 32 y.o. 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 Ms. Cage rates her pain relief as good. My personal asses sment is concordant with this evaluation. She notes that she has had a mild increase in pain this morning, which is to be expected af ter single shot nerve block. Tati would like to minimize opioids as she does not like to feel sleepy throughout the day . Alternatives include increasing the rate of the PNB within parameters and continuing to ma ximize the gabapentin. She was amenable to this plan. PNB troubleshooting was needed? NO Diagnosis: 1. Acute post operative pain 2. Synovial Sarcoma of the left foot Recommendations: Continue peripheral nerve block unchanged, titrate per protocol as needed Increase gabapentin to 600 mg at night Peripheral nerve block in place: If Barton is in place, it may be removed if deemed appropri ate by primary care team. Madiha Rebollar DNP, LOG INSPECTOR-C [facility] [address] [place] [id number] Patricio Giles MD - 02/07/2018 7:18 AM PDTGold Surgery Brief Progress Note ID: Tati Cage is a 32 y.o. Woman with synovial sarcoma of the left foot, indicated for fdc central venous access, s/p R IJ dual port placement (02/06/18) S: OR yesterday; CXR OK Some neck soreness but helped with ice O: BP 106/57 | Pulse 86 | Temp 37 C (98.6 F) | RR 16 | Ht 1.727 m (5' 8") | Wt 139.7 kg (3 08 lb) | SpO2 99% | BMI 46.83 kg/(m^2) Gen: obese Chest: R port in place, healthy with no swelling.. Incisions with dermabond Pulm: unlabored breathing on RA EXAM: MD CHEST 1 VIEW HISTORY: s/p port placement COMPARISON: CT 01/22/2018 IMPRESSION: Right-sided Port-A-Cath tip in the lower superior vena cava, just above the cavoatrial junc tion. No pneumothorax. A/P Uneventful port a cath placement. OK to use. Contact gold surgery with questions or concerns Remainder of care per primary team Dior Giles MD General Surgery [id number] Basurto MD - 02/07/2018 6:51 AM PDTPt says pain is tolerable. Epidural wasn't working last night so she had that removed and got a sciatic nerve catheter . Catheter seems to be working PE: Ht 1.727 m (5' 8"), Wt 139.7 kg (308 lb), BP 106/57, Pulse 86, Temperature 37 C (98.6 F ), RR 16, SpO2 99%, BMI 46.83 kg/(m^2). dsg c/d/I A/P: s/p L BKA -cont sciatic nerve catheter, will defer to APS. -OOB -likely here through the weekend, until catheter can be removed -dc barton today, as patient no longer w epidural.Hayde Flores MD - 02/06/2018 5:31 PM P DTFormatting of this note may be different from the original. [facility] DEPARTMENT OF ORTHOPAEDICS & REHABILITATION PROGRESS NOTE Patient: Tati Cage Encounter Date: 02/06/2018 Admitted: 02/06/2018 Attending Physician: Haydee Basurto MD HD# 0 Orthopedic Diagnose(s): - Left foot synovial sarcoma Procedure / Procedure Date: 02/06/2018 - Left below knee amputation Subjective: Interval Hx: Painful post-op. Anesthesia planning on replacing epidural. Objective: Last Vitals: BP 134/95 | Pulse 104 | Temp 36.4 C (97.5 F) | RR 16 | Ht 1.727 m (5' 8") | Wt 139.7 kg (308 lb) | SpO2 100% | BMI 46.83 kg/(m^2) Recent Laboratory Data: Lab Results Component Value Date WBC 11.16 02/05/2018 HCT 43.0 02/05/2018 CR 0.81 02/05/2018 CBG Result Av.5 Min: 79 Max: 100 Exam: General: Well appearing, NAD; A+O x3 CV/Resp: Breathing comfortably, regular pulse by palpation wrist MSK: LLE: Dressing c/d/i Residual limb sensate and well perfused A/P: Tati Cage is a 32 y.o. female with the above noted diagnose(s). Doing well po st-op - Immobility due to injury/illness: - NWB LLE - PT/OT ordered - Pain: Maintain adequate analgesia; Tylenol, Epidural will be replaced by anesthesia. - Wound Care: Dressing to remain intact - ID: - ceFAZolin, for 24 hours perioperatively - Radiology: Post-op ordered, pending review - Labs: Ordered - Diet: Advance diet as tolerated - DVT prophylaxis (High risk) - SCD(s) while in bed - Early ambulation as able - Chemoprophylaxis: ASA 325 mg daily - Other: - None - Dispo: - Pending clinical course - Orthopaedic Follow-up: As scheduled or the patient should call to schedule/confirm a follow up appo intment with Orthopaedic Oncology approximately 2 weeks for discharge. HAYDE FLORES MD Orthopaedics PGY-3 Pager: [phone] this encounter Plan of Treatment +--------+ + + + + | Date | Type | Specialty | Care Team | Description | +--------+ + + + + | 04/24/ | Appointment | Hematology & | Darwin Juan Starter | | | 2018 | | Oncology | [address] | | | | | | [place] [address] | | +--------+ + + + + | 04/24/ | Office | Hematology & | Annie Gannon, | | | 2017 | Visit | Oncology | AGASHANAE,LOG INSPECTOR [address] | | | | [address] | | | | | | [place], [place] | | | | | | [address] | | | | | | [phone] | | | | | | | | +--------+ + + + + | 04/24/ | Hospital | Adult Acute Care | Savanna Mari, | | | 2017 | Encounter | | [address] | | | | | | [place], [place] | | | | | | [address] | | | | | | [phone] | | | | | | | [...] Scott | | | | | | [place], [place] | | | | | | [address] | | | | | | [phone] | | | | | | | | +--------+ + + + + as of this encounter Procedures + +--------+ + + + | Procedure Name | Priori | Date/Time | Associated Diagnosis | Comments | | | ty | | | | + +--------+ + + + | OPERATION RECORD | | 02/06/2018 | | Results for this | | | | 7:40 PM | | procedure are in the | | | | PDT | | results section. | + +--------+ + + + | PORT PLACEMENT | Urgent | 02/06/2018 | SYNOVIAL SARCOMA | | | | | 11:20 AM | LEFT FOOT | | | | Surgic | PDT | | | | | al | | | | + +--------+ + + + | LOWER EXTREMITY | Urgent | 02/06/2018 | SYNOVIAL [facility]COMA | | | AMPUTATION | | 11:20 AM | LEFT FOOT | | | | Surgic | PDT | | | | | al | | | | + +--------+ + + + in this encounter Results TRANSTHORACIC ECHOCARDIOGRAM, ADULT (02/09/2018 11:45 AM) + + + + | Component | Value | Ref Range | + + + + | BIPLANE, EF | 66 | | + + + + | EJECTION FRACTION | 65 to 70 | | + + + + | LA DIMENSION | 3.2 | | + + + + | LVIDD | 4.7 | | + + + + | MV A VMAX | 0.6 | | + + + + | MV E? | 0.1 | | + + + + | MV E VMAX | 0.9 | | + + + + | RVSP | 26 | | + + + + | RV TAPSE | 2.0 | | + + + + | RV TDI S? | 12.0 | | + + + + | EJECTION FRACTION | 67.5 | % | | RANGE MEAN VALUE | | | + + + + + + + | Specimen | Performing Laboratory | + + + | | [facility] [address] [place] [address] | | | [place] [address] | + + + + + | Narrative | + + | [facility] Adult [facility]chocardiography [facility] | | [address] [place] [phone] Ph: | | Pt Name: TATI CAGE Study | | Date/Time 02/09/2018 / 11:45:04 AM | | Most recent prior: - Acc #: [id number] No. previous echos: 0 | | : 1985 32 years Heart Rate: 78 bpm Height: 68.0 | | in Blood Pressure: 121/61 mm/Hg Weight: 308.0 | | lb Gender: F BSA: 2.46 | | m2 Order ID: [id number] Pot Runner: | | John Gonzalez MA, [facility] Pot Runner 2: Referring Provider: Haydee Yanez | | Location: 9K Modalities Performed: 2D, Color flow, Spectral Doppler and Lumason | | contrast. Study Quality: Good. Exam Indication: Cardiotoxic therapies History: Pre | | chemotherapy, recent leg amputation, Patient history has been obtained from the EHR | | Transthoracic Echocardiographic Report | | + + Final | | Impressions: | | | | | | | | | | 1. The left ventricular cavity size is | | normal. 2. The LV function is | | normal. 3. Right | | ventricular size, thickness and function are | | normal. | | 4. No significant valvular abnormalities | | seen. 5. There are no prior exams available for | | comparison. | | | | | | + + LV Function & | | Strain Data Table: + + +-------+-------+ Study Date:LVEF | | (Biplane) GLS 3D LVEF + + +-------+-------+ | | 02/09/2018 65.6 % -18.4 %67.0 % | | + + +-------+-------+ Description of Findings: Cardiac | | Rhythm: Normal sinus rhythm. Left Ventricle: The left ventricular cavity size is | | normal. Visually estimated left ventricular ejection fraction is 65 - 70%. The 3D | | Volumetric LVEF is 67.0 %. The global longitudinal strain is -18.4 %. The LV diastolic | | filling pattern is normal. The ejection fraction is 65.6 % as measured by Martines's | | biplane method. The LV function is normal. Due to poor endocardial definition, | | ultrasound contrast was used (Lumason). Left Ventricular Wall Motion: Left | | ventricular systolic thickening is normal in all segments. Atria: Left atrial size is | | normal. Normal right atrium. Right Ventricle: Right ventricular size, thickness and | | function are normal. TAPSE measures 2.0cm. The RV TDI s' velocity is 12cm/sec. Aortic | | Valve: The aortic valve is trileaflet and normal in structure and function. No | | indication of aortic valve regurgitation. Mitral Valve: The mitral valve is | | structurally normal. No evidence of mitral valve regurgitation. Tricuspid Valve: The | | tricuspid valve is structurally normal. Trace tricuspid regurgitation. The tricuspid | | regurgitant velocity is 2.41 m/s, and with an assumed right atrial pressure of 3 mmHg, | | the estimated right ventricular systolic pressure is normal at 26.2 mmHg. Pulmonic | | Valve: The pulmonic valve is structurally normal. The peak trans pulmonic gradient is | | 4.8 mmHg. Aorta: Visualized portions of the ascending aorta and aortic root appear | | normal. Venous: Inferior vena cava is normal with normal inspiratory collapse. | | Pericardium: No pericardial effusion is seen. Additional Findings: There are no | | prior exams. 2D Measurements Doppler Measurements | | 2D NL Values Aortic Mitral | | LVID(d) 4.68 (3.5-5.7cm) Max Erik 1.72 Peak E 0.87 | | cm | | m/s m/s LVID(s) 3.07 Mean | | grad 6.5 Peak A 0.61 | | cm mmHg m/s | | IVS(d) 1.23 (0.6-1.1cm) LVOT Erik 1.32 E/A 1.42 | | cm | | m/s Ratio LVPW(d) 1.22 | | (0.6-1.1cm) TDI 7.9 | | cm (E/e') LA A/Ps 2D | | 3.17 (2.7-3.9cm) LVOT Diam 2.28 MV mn gd | | cm cm LA vol A/L 44.0 | | (40-73ml) Tricuspid Pulmonic BP | | ml TR Vmax 2.41 PV Vmax 1.1 LA vol A/L | | 17.9 (16-34) m/s m/s | | index ml/m2 RA Press 3 mmHg RVOT VTI | | RVSP 26 | | PV mn gd 3 mmHg Biplane EF 65.6 % mmHg GLS | | % -18.4 | | % Aorta: Index | | : Asc Ao 3.14 | | (prox) cm Evaluation | | of chamber size and geometry is accomplished through the incorporation of linear, | | volumetric, and indexed values Report electronically signed by: [id number] Justin | | Malachi DIAS (02/09/2018, 3:09:17 PM) Final | + + + + | Procedure Note | + + | Interface, Ecg Results - 02/09/2018 3:09 PM [facility] | | [facility] [address] [place] [address] | | [place], [place] [address] Pt Name: TATI WILKERSON | | NILES Study Date/Time 02/09/2018 / 11:45:04 AMMRN: [id number] Most | | recent prior: -Acc #: [id number] No. previous echos: 0DOB: 1985 32 | | years Heart Rate: 78 bpmHeight: 68.0 in Blood Pressure: 121/61 | | mm/HgWeight: 308.0 lb Gender: FBSA: 2.46 m2 | | Order ID: [id number] Pot Runner: John Gonzalez MA, RDCSSonographer | | 2:Referring Provider: Haydee Pastor Location: 9KModalities Performed: 2D, Color | | flow, Spectral Doppler and Lumason contrast.Study Quality: Good.Exam Indication: | | Cardiotoxic therapiesHistory: Pre chemotherapy, recent leg amputation, Patient history | | has been obtained from the EHR Transthoracic Echocardiographic | | Report+ +Final Impressions: | | | | 1. The left | | ventricular cavity size is normal. 2. The LV function is normal. | | 3. Right ventricular size, thickness and function are | | normal. 4. No significant valvular | | abnormalities seen. 5. There are no prior exams available for comparison. | | | | + + LV Function & Strain | | Data Table:+ + +-------+-------+Study Date:LVEF (Biplane) GLS | | 3D LVEF+ + +-------+-------+02/09/2018 65.6 % -18.4 %67.0 | | % + + +-------+-------+ Description of Findings: Cardiac Rhythm: | | Normal sinus rhythm.Left Ventricle: The left ventricular cavity size is normal. Visually | | estimated left ventricular ejection fraction is 65 - 70%. The 3D Volumetric LVEF is | | 67.0 %. The global longitudinal strain is -18.4 %. The LV diastolic filling pattern is | | normal.The ejection fraction is 65.6 % as measured by Martines's biplane method. The LV | | function is normal. Due to poor endocardial definition, ultrasound contrast was used | | (Lumason).Left Ventricular Wall Motion: Left ventricular systolic thickening is normal | | in all segments.Atria: Left atrial size is normal. Normal right atrium.Right Ventricle: | | Right ventricular size, thickness and function are normal. TAPSE measures 2.0cm. The RV | | TDI s' velocity is 12cm/sec.Aortic Valve: The aortic valve is trileaflet and normal in | | structure and function. No indication of aortic valve regurgitation.Mitral Valve: The | | mitral valve is structurally normal. No evidence of mitral valve regurgitation.Tricuspid | | Valve: The tricuspid valve is structurally normal. Trace tricuspid regurgitation. The | | tricuspid regurgitant velocity is 2.41 m/s, and with an assumed right atrial pressure of | | 3 mmHg, the estimated right ventricular systolic pressure is normal at 26.2 | | mmHg.Pulmonic Valve: The pulmonic valve is structurally normal. The peak trans pulmonic | | gradient is 4.8 mmHg.Aorta: Visualized portions of the ascending aorta and aortic root | | appear normal.Venous: Inferior vena cava is normal with normal inspiratory | | collapse.Pericardium: No pericardial effusion is seen. Additional Findings: There are no | | prior exams.2D Measurements Doppler Measurements 2D NL | | Values Aortic MitralLVID(d) 4.68 (3.5-5.7cm) Max Erik 1.72 Peak E | | 0.87 cm m/s m/sLVID(s) 3.07 | | Mean grad 6.5 Peak A 0.61 cm mmHg | | m/sIVS(d) 1.23 (0.6-1.1cm) LVOT Erik 1.32 E/A 1.42 cm | | m/s RatioLVPW(d) 1.22 (0.6-1.1cm) TDI | | 7.9 cm (E/e')LA A/Ps 2D 3.17 (2.7-3.9cm) | | LVOT Diam 2.28 MV mn gd cm cmLA vol A/L 44.0 | | (40-73ml) Tricuspid PulmonicBP ml TR Vmax 2.41 PV | | Vmax 1.1LA vol A/L 17.9 (16-34) m/s m/sindex ml/m2 | | RA Press 3 mmHg RVOT VTI RVSP 26 PV mn | | gd 3 mmHgBiplane EF 65.6 % mmHgGLS % -18.4 % | | Aorta: Index: Asc Ao 3.14 | | (prox) cmEvaluation of chamber size and geometry is | | accomplished through the incorporation of linear, volumetric, and indexed values Report | | electronically signed by: [id number] Justin Ly MD (02/09/2018, 3:09:17 PM) | | Final | |(Lumason). | |Left Ventricular Wall Motion: Left ventricular systolic thickening is normal in all | |segments. | |Atria: Left atrial size is normal. Normal right atrium. | |Right Ventricle: Right ventricular size, thickness and function are normal. TAPSE | |measures 2.0cm. The RV TDI s' velocity is 12cm/sec. | |Aortic Valve: The aortic valve is trileaflet and normal in structure and function. No | | indication of aortic valve regurgitation. | |Mitral Valve: The mitral valve is structurally normal. No evidence of mitral valve | |regurgitation. | |Tricuspid Valve: The tricuspid valve is structurally normal. Trace tricuspid | |regurgitation. The tricuspid regurgitant velocity is 2.41 m/s, and with an assumed | |right atrial pressure of 3 mmHg, the estimated right ventricular systolic pressure is | | normal at 26.2 mmHg. | |Pulmonic Valve: The pulmonic valve is structurally normal. The peak trans pulmonic | |gradient is 4.8 mmHg. | |Aorta: Visualized portions of the ascending aorta and aortic root appear normal. | |Venous: Inferior vena cava is normal with normal inspiratory collapse. | |Pericardium: No pericardial effusion is seen. | | | |Additional Findings: There are no prior exams. | |2D Measurements Doppler Measurements | | | | 2D NL Values Aortic Mitral | |LVID(d) 4.68 (3.5-5.7cm) Max Erik 1.72 Peak E 0.87 | | cm m/s m/s | |LVID(s) 3.07 Mean grad 6.5 Peak A 0.61 | | cm mmHg m/s | |IVS(d) 1.23 (0.6-1.1cm) LVOT Erik 1.32 E/A 1.42 | | cm m/s Ratio | |LVPW(d) 1.22 (0.6-1.1cm) TDI 7.9 | | cm (E/e') | |LA A/Ps 2D 3.17 (2.7-3.9cm) LVOT Diam 2.28 MV mn gd | | cm cm | |LA vol A/L 44.0 (40-73ml) Tricuspid Pulmonic | |BP ml TR Vmax 2.41 PV Vmax 1.1 | |LA vol A/L 17.9 (16-34) m/s m/s | |index ml/m2 RA Press 3 mmHg RVOT VTI | | RVSP 26 PV mn gd 3 mmHg | |Biplane EF 65.6 % mmHg | |GLS % -18.4 | | % Aorta: Index: | | Asc Ao 3.14 | | (prox) cm | |Evaluation of chamber size and geometry is accomplished through the incorporation of | |linear, volumetric, and indexed values | | | |Report electronically signed by: [id number] Justin Ly MD (02/09/2018, 3:09:17 | |PM) | | | | | | | | Final | + + PROCEDURE NOTE (02/07/2018 11:22 AM)X-RAY TIBIA & FIBULA 2 VIEWS LT (02/07/2018 8:57 AM) + + + | Specimen | Performing Laboratory | + + + | | [facility] RAD[facility] VOICE RECOGNITION 2 | + + + + + | Narrative | + + | EXAM: TIBIA AND FIBULA 2 VIEWS LT HISTORY: Post-op. COMPARISON: None. | | FINDINGS: There has been a recent transdiaphyseal, mid tibial and fibular | | amputations. The surgical margins are well-defined. Subcutaneous swelling and gas in the | | distal stump soft tissues are expected postoperatively. IMPRESSION: | | Uncomplicated mid tibial and fibular transdiaphyseal amputations. I have personally | | reviewed the images and, if necessary, edited the report. I agree with the report as now | | presented. Final signature: Dex Hall MD 02/07/2018 10:07 AM Preliminary: | | Dex Hall MD Dictation initiated: Dex Hall MD 02/07/2018 10:04 AM | + + + + | Procedure Note | + + | Service Account, Radiant Res In Interface - 02/07/2018 10:08 AM PDT EXAM: TIBIA AND | | FIBULA 2 VIEWS LT HISTORY: Post-op. COMPARISON: None. FINDINGS: There has been a | | recent transdiaphyseal, mid tibial and fibular amputations. The surgical margins are | | well-defined. Subcutaneous swelling and gas in the distal stump soft tissues are | | expected postoperatively. IMPRESSION: Uncomplicated mid tibial and fibular | | transdiaphyseal amputations. I have personally reviewed the images and, if necessary, | | edited the report. I agree with the report as now presented. Final signature: Dex Hall MD 02/07/2018 10:07 AM Preliminary: Dex Hall MD Dictation initiated: Dex Hall MD 02/07/2018 10:04 AM | | | |IMPRESSION: | | | |Uncomplicated mid tibial and fibular transdiaphyseal amputations. | | | |I have personally reviewed the images and, if necessary, edited the report. I agree with th e report as now presented. | | | |Final signature: Dex Hall MD 02/07/2018 10:07 AM | |Preliminary: Dex Hall MD | |Dictation initiated: Dex Hall MD 02/07/2018 10:04 AM | + + CBC (HEMOGRAM) ONLY (02/07/2018 4:53 AM) + + + + | Component | Value | Ref Range | + + + + | WHITE CELL COUNT | 8.94 | 3.50 - 10.80 K/cu mm | + + + + | RED CELL COUNT | 3.58 (L) | 4.00 - 5.20 M/cu mm | + + + + | HEMOGLOBIN | 10.8 (L) | 12.0 - 16.0 g/dL | + + + + | HEMATOCRIT | 31.8 (L) | 36.0 - 46.0 % | + + + + | MCV | 88.8 | 80.0 - 100.0 fL | + + + + | MCHC | 34.0 | 32.0 - 36.0 g/dL | + + + + | RDW SD | 39.6 | 35.1 - 46.3 fL | + + + + | PLATELET COUNT | 289 | 150 - 400 K/cu mm | [...] | + + + | Blood | [facility] [address] | | | [place] [address] | + + + + + | Narrative | + + | New reference ranges for MCV, MCHC, PLT, IG% and IG# effective 01/09/2018 | + + CBC ONLY (02/07/2018 4:53 AM) + + + | Specimen | Performing Laboratory | + + + | Blood | | + + + + + | Narrative | + + | The following orders were created for panel order CBC ONLY. | | Procedure | | Abnormality Status | | --------- | | ------ CBC (HEMOGRAM) | | ONLY[[id number]] Abnormal Final | | result Please view results for these tests on the | | individual orders. | + + BASIC METABOLIC SET (NA, K, CL, TCO2, BUN, CR, GLU, CA) (02/07/2018 4:53 AM) + +---------+ + | Component | Value | Ref Range | + +---------+ + | GLUCOSE, PLASMA | 98 | 70 - 99 mg/dL | | (LAB) | | | + +---------+ + | BUN, PLASMA (LAB) | 15 | 6 - 20 mg/dL | + +---------+ + | CREATININE PLASMA | 0.66 | 0.60 - 1.10 mg/dL | | (LAB) | | | + +---------+ + | EGFR - | >60 | >60 mL/min | | [place] | | | + +---------+ + | EGFR NON | >60 | >60 mL/min | | -[place] | | | + +---------+ + | SODIUM, PLASMA (LAB) | 139 | 136 - 145 mmol/L | + +---------+ + | POTASSIUM, PLASMA | 4.0 | 3.4 - 5.0 mmol/L | | [...] + +---------+ + | POTASSIUM CMNT | Sl Hemo | | + +---------+ + + + + | Specimen | Performing Laboratory | + + + | Blood | [facility], [address] | | | [place] [address] | + + + + + | Narrative | + + | Sample hemolyzed. Results for K, Total Bili, Direct Bili, AST, LDH, or HDL may be | | inaccurate. Refer to comment under test result. GFR is estimated using the MDRD | | equation recommended by the National Kidney Disease Education Program. Estimated GFR | | Interpretive Information: <60 mL/min/1.73 sq m Chronic | | Kidney Disease <15 mL/min/1.73 sq m Kidney Failure | | Estimated GFR greater that 60 mL/min/1.73 sq m is of limited clinical value. The | | MDRD equation is not valid in the following situations: - Patients under 18 years of | | age - Severe malnutrition or obesity - Vegetarian diet - Rapidly changing kidney | | function - Amputees, paraplegics, or other muscle-wasting diseses | + + PROCEDURE NOTE (02/06/2018 8:47 PM) + + | Narrative | + + | Patricio Giles MD 02/06/2018 1:51 PM The Department of Surgery | | Brief Operative Note: Author: Dior Giles MD Attending Physician: Macie Loredo MD 02/06/2018, 1:48 PM Procedure Date: 02/06/2018, 1:48 PM | | Surgeon: Macie Loredo MD Assistants: Dior Giles MD Preoperative | | Diagnosis: need for fdc central venous access Postoperative Diagnosis: same | | Procedure Performed: placement of right internal jugular dual lumen MRI compatible | | port under ultrasound guidance; intraoperative interpretation of fluoroscopy | | Findings: placement in RIJ under ultrasound guidance with first attempt | | Anaesthesia: GETA Estimated Blood Loss: 10 mL Fluids: per anesthesia mL | | UOP: per anesthesia Specimens: none Drains: none Complications: None | | apparent Condition: Good Disposition: PACU then floor Immediate post op | | Plan: CXR in PACU OK to access port Remainder of care per primary orthopedic | | surgery Dior Giles MD 02/06/18 1:48 PM General Surgery, R3 | | | + + OPERATION RECORD (02/06/2018 7:40 PM) + + | Procedure Note | + + | Haydee Basurto MD - 02/06/2018 7:40 PM PDT Date of Service: 02/06/2018 | | Attending Surgeon: Haydee Basurto MD Degreaser(s): Hayde | | Mike Flores MD. 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 There did appear | | to be a thrombosis in the posterior tibial vein. Peroneal artery and vein was more of a | | plexus of vessels as compared to simple artery and vein. Frozen section revealed tumor | | to be 11 cm away from closest soft tissue margin. No evidence of infection in the leg | | itself.Specimen Sent: Left leg and foot.Indications: This is a 32-year-old woman, who | | had a growing mass in the plantar medial aspect of the left foot. 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 Unfortunately, the biopsy site had fungation of | | tumor and erythema surrounding the biopsy site, which was concerning for irritation of | | tumor and possible infection within the tumor itself. Because of that, she was | | indicated for urgent below-knee amputation to address both the tumor and the potential | | infection.Procedure In Detail: The patient was brought to the operating room, placed | | supine on the operating table. The patient was then given a port. Once the port | | placement was done, a bump was placed underneath the left hip, and the left lower | | extremity was prepped and draped in standard sterile fashion. The patient had received | | preoperative antibiotics prior to the port placement. The tibial tubercle was | | identified, and marking was made about 15 cm distal to the tibial tubercle, and then 2 | | longitudinal incisions were made distal to that, and then a posterior marking was made. | | Time-out was done. Her transverse incision was then made, and then the 2 longitudinal | | incisions were made. Attention was first turned towards the anterior compartment, | | fascia was cut. The muscles of the anterior compartment were then cut. Anterior tibial | | artery and vein were then tied. Superficial peroneal nerve was identified, retracted | | and cut. Deep peroneal nerve was also identified, retracted and cut. Attention was | | then turned medially, where the saphenous vein was identified and tied and cut. The | | saphenous nerve was not identified in this process, but the saphenous vein was retracted | | proximally a little bit. At this point, the interosseous membrane was identified and | | the fibula and the tibia were identified. Periosteum was lifted off both the tibia and | | the fibula. The fibula periosteum was a little bit more proximally. Two Hohmann | | retractors were placed, and then the fibula was cut. Attention was then turned towards | | the tibia, where it was also cut slightly proximal to the level of the skin and the | | periosteal cut. At this point, we were able to retract the leg at the level of the cuts | | to allow for the posterior compartment and the lateral compartment to be cut | | adequately. Lateral compartment was cut. The deep posterior compartment was cut, both | | at the bony levels. There did appear to be some bleeding around the peroneal vessels, | | so a clamp was placed temporarily to control that bleeding and left alone to be explored | | later. At this point, once the lateral compartment had been completely cut, and the | | deep posterior compartment had been completely cut, we were then able to identify the | | posterior tibial artery and vein. The vein was first identified. There was clearly | | thrombosis within the vein. We clamped off the vein and stick-tied it with 2-0 silk. | | We then found the artery and clamped it and stick-tied with 2-0 silk as well, and then | | cut it. The tibial nerve was then identified, retracted and cut proximally, and then | | the rest of the leg was then removed so that we kept most of the superficial posterior | | compartment intact, and cut transversely at the level to allow for an adequate posterior | | skin flap. The short saphenous vein was then identified and tied. The sural nerve was | | then identified, retracted and cut. The leg was sent off for check to make sure that | | our margins were clear, and then attention was returned toward the peroneal vessels. | | With appropriate retraction, we were able to visualize the peroneal vessels it appeared | | to be more of a plexus of veins and arteries. We were able to clamp that off | | adequately, and tie them off adequately to allow for hemostasis. At this point, we then | | irrigated the wound copiously, and then we looked to see if the posterior flap was | | adequate, and we needed to trim a little bit of the muscle of the soleus in the | | posterior flap. So we did that, and then Bovie cauterized most of the bleeders in the | | soleus itself, the fascia overlying the soleus, and some of the gastrocsoleus complex | | tendon. The tibia was then beveled, and then the periosteum overlying the anterior | | tibia was sewn to the remaining Achilles tendon structure that was off the gastrocsoleus | | complex, as well as the fascia overlying that. The fascia of the posterior compartment | | was then sewn to itself, as well as a little bit to the periosteum overlying the tibia | | medially, and then laterally the fascia overlying the lateral compartment was sewn to | | the fascia overlying the anterior compartment to allow for adequate fascial closure. | | Because hemostasis was good, we decided not to put a drain in. The skin was then | | trimmed appropriately and subcutaneous tissue was then sewn with 2-0 Vicryl, and then | | skin sewn with 2-0 nylon in interrupted fashion. Sterile dressing was applied. An Javan | | wrap was placed. The patient was then extubated and brought to recovery room in stable | | condition.Postoperative Plan: The patient received an epidural preoperatively; as long | | as it is working she should have that in for 72 hours. If this current epidural is not | | working, I still think it is best if she gets a postoperative epidural, again, keeping | | it in for 72 hours, and then once we remove it she should be transitioned to oral pain | | medication, and then ultimately discharged, likely on postop day 4. Her sutures should | | probably be removed around 3 weeks postop. She will need postoperative adjuvant | | chemotherapy. I suspect that will also be around 3 weeks postoperatively, as long as | | her wound looks okay, and she needs to emphasize extension exercises when she does | | therapy, as well as do other appropriate therapies for an amputation.Haydee Basurto, | | MDYD/MODLDD: 02/06/2018 15:36:23DT: 02/06/2018 19:40:30Job #: [id number] | + + X-RAY PORTABLE CHEST 1 VIEW (02/06/2018 4:54 PM) + + + | Specimen | Performing Laboratory | + + + | | [facility] VOICE RECOGNITION 2 | + + + + + | Narrative | + + | EXAM: MD CHEST 1 VIEW HISTORY: s/p port placement COMPARISON: CT 01/22/2018 | | FINDINGS: Right-sided Port-A-Cath has been placed with tip projecting in the | | lower superior vena cava, just above the cavoatrial junction. Lung volumes are low. | | There is minimal bilateral atelectasis. No consolidation. No pulmonary edema. | | Cardiomediastinal silhouette unremarkable for low lung volumes. There is no | | pneumothorax. IMPRESSION: Right-sided Port-A-Cath tip in the lower superior vena | | cava, just above the cavoatrial junction. No pneumothorax. Low lung volumes with | | minimal scattered atelectasis. No consolidation. I have personally reviewed the | | images and, if necessary, edited the report. I agree with the report as now presented. | | Final signature: Roland Wu MD 02/06/2018 5:09 PM Preliminary: Roland | | MD Bryce Dictation initiated: Roland Wu MD 02/06/2018 5:08 PM | + + + + | Procedure Note | + + | Service Account, Radiant Res In Interface - 02/06/2018 5:11 PM PDT EXAM: MD CHEST 1 | | VIEW HISTORY: s/p port placement COMPARISON: CT 01/22/2018 FINDINGS: Right-sided | | Port-A-Cath has been placed with tip projecting in the lower superior vena cava, just | | above the cavoatrial junction. Lung volumes are low. There is minimal bilateral | | atelectasis. No consolidation. No pulmonary edema. Cardiomediastinal silhouette | | unremarkable for low lung volumes. There is no pneumothorax. IMPRESSION: Right-sided | | Port-A-Cath tip in the lower superior vena cava, just above the cavoatrial junction. No | | pneumothorax. Low lung volumes with minimal scattered atelectasis. No consolidation. I | | have personally reviewed the images and, if necessary, edited the report. I agree with | | the report as now presented. Final signature: Roland Wu MD 02/06/2018 5:09 PM | | Preliminary: Roland Wu MD Dictation initiated: Roland Wu MD 02/06/2018 5:08 | | PM | | | |Right-sided Port-A-Cath tip in the lower superior vena cava, just above the cavoatrial junc tion. No pneumothorax. | | | |Low lung volumes with minimal scattered atelectasis. No consolidation. | | | |I have personally reviewed the images and, if necessary, edited the report. I agree with th e report as now presented. | | | |Final signature: Roland Wu MD 02/06/2018 5:09 PM | |Preliminary: Roland Wu MD | |Dictation initiated: Roland Wu MD 02/06/2018 5:08 PM | + + PROCEDURE NOTE (02/06/2018 3:56 PM) + + | Narrative | + + | Hayde Flores MD 02/06/2018 3:[address] [facility] | | Department of Orthopaedics & Rehabilitation BRIEF OPERATIVE NOTE | | Patient: Tati Cage | | | | CSN: [id number] | | Date: 02/06/2018 | | Attending Surgeon: Haydee | | MD Sb Degreaser(s): 1. 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 | | same Procedure(s) Performed: 1. Left transtibial amputation Anesthesia | | Type: General & Regional Estimated Blood Loss: 300 mL IV Fluids: per | | anesthesia Urine Output: Please see the anesthesia record Tourniquet Time: | | 0 minutes Complications: None Apparent Orthopaedic Implants: 1. None | | Specimens: 1. Left leg for pathology Drains: None Findings in | | Brief: 1. see dictated note Disposition: Transferred from the OR in stable | | condition. POST PROCEDURE PLAN: 1. Weight Bearing: non-weight bearing, left | | lower extremity 2. Acute pain: oral analgesia and epidural, managed by the acute | | pain service 3. Diet: regular diet, advance as tolerated 4. Antibiotics: ceFAZolin, | | for 24 hours perioperatively 5. Special Concerns: post-op imaging ordered, case | | managment for discharge planning 6. Barton: please D/C barton as soon as able, not | | prior to epidural removal. 7. PACU Disposition: Admit to ortho and transfer to the | | hospital childers, acute care 8. Medications: Resume home medications as indicated 9. | | VTE prophalaxis: high risk, enteric coated aspirin, 325mg daily, sequential | | compression devices 10. Anticipated discharge: Likely home Saturday HAYDE R | | MD SANDRA [facility] | | Department of Orthopaedics & Rehabilitation [address] [place] [address] Mail Code: | | OP31 [facility] [address] Pager: [phone] | + + CAPILLARY BLOOD GLUCOSE (NO CHG), POC (02/06/2018 3:53 PM) + +-------+ + | Component | Value | Ref Range | + +-------+ + | BLOOD GLUCOSE, POC | 79 | 70 - 99 mg/dL | + +-------+ + + + + | Specimen | Performing Laboratory | + + + | | [facility], POINT OF CARE TESTS [address] | | | [place] [address] | + + + SURGICAL PATHOLOGY (02/06/2018 2:26 PM) + + + + | Component | Value | Ref Range | + + + + | Clinical History | SYNOVIAL SARCOMA LEFT FOOT | | + + + + | Final Pathologic | A. Left leg, amputation: Synovial | | | Diagnosis | sarcoma, with extensive acute inflammation, | | | | abscess, and necrosis ,see synoptic | | | | report Margins negative for tumor | | | | Comment: See prior biopsy ([id number]). | | | | Case seen by:Edgard Patel, Pathology Student | | | | Fellow Helder Preciado MD PhD / Pathologist | | | | My electronic signature indicates that I | | | | have personally reviewed all diagnostic | | | | slides, the gross and/or microscopic | | | | portion of this report and formulated the | | | | final diagnosis. | | + + + + | SYNOPTIC REPORTS | SOFT TISSUE: Resection (Soft Tissue Res | | | | - All Specimens) CLINICAL Preresection | | | | Treatment: No known preresection | | | | therapy SPECIMEN | | | | Procedure: Amputation of leg. | | | | TUMOR Tumor Site: Trunk and | | | | extremities Site: Left | | | | medial foot. Histologic | | | | Type: : Synovial | | | | sarcoma NOS Histologic Grade | | | | (FNCLCC): Grade 2 Tumor | | | | Size: Greatest dimension in | | | | Centimeters (cm): 8.2 Centimeters (cm) | | | | Accessory Findings: Mitotic | | | | Rate: 14 mitoses per 10 High Power | | | | Iqbal (HPF) Necrosis (macroscopic | | | | or microscopic): Present | | | | Extent (%): 80 | | | | % Lymphovascular | | | | Invasion: Not identified | | | | Treatment Effect: No known | | | | presurgical therapy MARGINS | | | | Margins: Uninvolved by sarcoma | | | | Distance of Sarcoma from Closest | | | | Margin in Centimeters (cm): 11 | | | | Centimeters (cm) Closest | | | | Margin: soft tissue resection margin | | | | LYMPH NODES Regional Lymph | | | | Nodes: No lymph nodes submitted or | | | | found PATHOLOGIC STAGE CLASSIFICATION | | | | (pTNM, AJCC 8th Edition) : | | | | Primary Tumor (pT): pT2 Regional | | | | Lymph Nodes (pN): pN0 SPECIAL | | | | STUDIES Comment(s) | | | | Comment(s): Extensive | | | | fibrinopurulent, necrotic material is | | | | present, not indicative of true tumor | | | | necrosis. See prior biopsy [id number]). | | | | Please correlate clinically. | | | | Comment(s): Extensive fibrinopurulent, necrotic material is p resent, not indicative of true tumor necrosis. See prior biopsy [id number]). Please correlate clinically. | | + + + + | Gross Description | Received is one specimen fresh in a | | | | container labeled with the patient's name | | | | (init[place] [facility] [place] and medical record number | | | | [id number]. A. Left leg, amputation: Received | | | | labeled "left leg-A" is a left lower | | | | extremity amputated through the tibia and | | | | fibula with a smooth resection margin | | | | (length of leg 29.2 cm; circumference of | | | | calf 27.5 cm; foot 25.3 x 9.5 cm). All five | | | | digits are present with intact toenails. | | | | The anterior skin and soft tissue extends | | | | 8.0 cm more than the posterior skin, and | | | | the tibia and fibula extend past the | | | | anterior soft tissue resection margin by | | | | 2.0 and 2.9 cm, respectively. There is a | | | | stitch indicating closest margin located | | | | 2.8 cm from the medial edge of the anterior | | | | soft tissue extension. The skin is | | | | diffusely wang-pink with skin slippage (4.5 | | | | x 2.8 cm) 4.5 cm inferior to the medial | | | | malleolus with two eccentric round | | | | ulcerations with fibrinopurulent debris | | | | (greatest dimension 0.7 cm), adjacent 2.5 x | | | | 1.8 cm wang-brown ecchymosis, and | | | | surrounding edema. Also present is a round | | | | hyperpigmented papule (0.5 diameter cm) 1.3 | | | | cm inferior to the medial malleolus. The | | | | resection margin at the stitch is inked | | | | black, and the soft tissue resection | | | | margins adjacent to the tibia and fibula | | | | are inked as follows with the tibia at | | | | 12:00: 12:00-3:00, green; 3:00-6:00, | | | | purple; 6:00-9:00, orange, 9:00-12:00, | | | | blue. The resection margins are taken en | | | | face and submitted. The area of skin | | | | slippage is serially sectioned from | | | | posterior to anterior into 20 slices | | | | revealing a 8.2 x 4.9 x 4.0 cm | | | | well-circumscribed encapsulated gold-red | | | | markedly necrotic, hemorrhagic, centrally | | | | cavitary, and possibly partially calcified | | | | tumor. Amount of necrosis is estimated to | | | | be 80%. The tumor transverses the medial | | | | foot from the calcaneous to the first | | | | metatarsal. It does not grossly involve the | | | | underlying bone. The tumor is located 11.0 | | | | cm from the closest soft tissue resection | | | | margin at the stitch. Front Tender | | | | sections are submitted. Summary of | | | | cassettes: A1-A2, tibial marginA3, fibular | | | | marginA4, tibial nerve and posterior tibial | | | | artery and vein margins, en faceA5, | | | | superficial fibular nerve margin, en | | | | faceA6, anterior tibial artery and veins | | | | and deep fibular nerve margins, en faceA7, | | | | fibular artery and veins, en faceA8, small | | | | saphenous vein, en faceA9, great saphenous | | | | vein and saphenous nerve, en faceA10, skin | | | | and soft tissue at stitch, en faceA11, skin | | | | and soft tissue, 12:00-3:00, en faceA12, | | | | skin and soft tissue, 3:00-6:00, en | | | | faceA13, skin and soft tissue, 6:00-9:00, | | | | en faceA14, skin and soft tissue, | | | | 9:00-12:00, en faceA15, central ulceration | | | | and underlying cwdisD33-S26, composite | | | | section of posterior tumor nwhcmubS25-Q32, | | | | additional composite section of | | | | dszpcE95-C92, additional composite section | | | | of onqinU89-G13, additional composite | | | | section of pjuhmF65-M04, additional | | | | composite section of tumor A31-A32, | | | | composite section of anterior mskjuU04, | | | | uninvolved skin and soft tissue adjacent to | | | | anterior rtbgaM20, uninvolved skin and | | | | soft tissue adjacent to posterior sczirE48, | | | | underlying bone with attached soft | | | | iqqxbfZ58, navicular and medial cuneiform | | | | bones and hhdkhX41, navicular bone and | | | | transverse tarsal joint DD | | + + + + | Intraoperative use | Gross intraoperative consultation only: | | | only - Final | A1. Leg. Left leg: Tumor is grossly 11.0 cm | | | diagnosis listed | away from the closest soft tissue | | | separately | resection margin (marked with | | | | stitch)Pathologist(s): Vilma Ramírez MD - | | | | Pathologist | | + + + + | ANCILLARY | Analyte specific reagents are used in many | | | INFORMATION | laboratory tests necessary for standard | | | | medical care. This test was developed and | | | | its performance characteristics determined | | | | by [employer]. It has not been | | | [...] + + | Tissue - Leg | [facility] [address] [facility] [facility] [address] | | | [place] [id number] | + + + PROCEDURE NOTE (02/06/2018 2:20 PM) + + | Narrative | + + | Macie Loredo MD 02/06/2018 2:37 PM PATIENT NAME: Tati Cage [facility] | | MR#: [id number] : 1985 Date: 02/06/2018 Attending Surgeon: Macie Loredo | | Degreaser(s): Jan Giles MD Preoperative Diagnosis(es): 1. | | Sarcoma Postoperative Diagnosis(es): 1. same Procedures: 1. Insertion of | | a 10Fr Dual lumen MRI Bard port into right internal jugular vein 2. Ultrasound | | guided access of the right internal jugular vein Anesthesia: GETA Procedure: | | The patient was identified and placed on the operating room in supine position with | | Trendelenberg. The anterior neck and chest were prepared and draped in sterile | | fashion. The entire procedure was done with local anesthetic 0.25% marcaine with | | epinephrine. A 14 gauge seeker needle was introduced into the right internal | | jugular vein with ultrasonographic guidance. Upon return of blood, the syringe was | | disconnected and a guide wire was passed into the vein. The needle was withdrawn. | | Fluoroscopy was brought onto the field and confirmed that the wire was in the right | | atrium. A transverse incision was made in the right infraclavicular skin. | | Electrocautery was used to fashion a pocket approx 1cm deep to the skin surface and | | inferior to the incision and anterior to the fascia. A 10Fr Smartport catheter system | | was assembled and brought onto the field. The port was sutured to the subcutaneous | | tissue in 3 places with 2-0 Maxon suture. The trochar was attached to catheter. The | | catheter was tunneled subcutaneously from the right neck to the infraclavicular | | incision. The catheter was trimmed slightly the hub cover was placed over the proximal | | end of the catheter the catheter was attached to a 10mL of injectable saline and | | flushed through with 1-2mL. The wire insertion site skin was opened transversely | | with an 11 blade and the subcutaneous tissues were dilated with a mosquito clamp. | | The wire position was again confirmed with fluoro. The dilator and then the assembled | | dilator-introducer complex were each passed over the guide wire taking care to ensure | | that they followed the guide wire freely. The guide wire was withdrawn and the | | catheter was passed through the introducer toward the right atrium. The introducer was | | then bivalved out of the patient. Fluoroscopy was then used to ensure that the entire | | system was in place without loops, kinks or knots and that the tip of the catheter | | was near the junction of the superior vena cava and the right atrium and the catheter | | was adjusted appropriately. The catheter roe and flushed freely. The catheter | | was then trimmed and attached to the port. The previously placed stay sutures were | | tied. It was then accessed in both ports with a Sanchez needle and syringe of injectable | | saline. The port aspirated and flushed easily. The port was then again accessed | | with a Sanchez needle and syringe of hepainized saline (100U/mL). The port aspirated and | | flushed easily. It was filled with 3-4 mL heparinized saline. The port was | | de-accessed. The neck incision was closed with interrupted subcuticular 4-0 | | biosyn suture. The port pocket was closed with 2 layers: interrupted 3-0 vicryl dermal | | layer and a running subcuticular 4-0 Biosyn suture to the skin. Dermabond was placed | | over the incision. Estimated blood loss was minimal, there were no | | complications. The patient tolerated the procedure well. I was present and scrubbed | | for the entire procedure. A post-operative CXR will be obtained in the recovery | | unit. Macie Loredo MD [facility] Surgical On[facility] | | [facility] | + + X-RAY FLUOROSCOPY IN OR > 1 HOUR (02/06/2018 1:26 PM) + + | Narrative | + + | - At the time of the study, no professional interpretation was requested. - | + + CAPILLARY BLOOD GLUCOSE (NO CHG), POC (02/06/2018 10:48 AM) + +---------+ + | Component | Value | Ref Range | + +---------+ + | BLOOD GLUCOSE, POC | 100 (H) | 70 - 99 mg/dL | + +---------+ + + + + | Specimen | Performing Laboratory | + + + | | [facility], POINT OF CARE TESTS [address] | | | [place] [address] | + + + INTRAPROCEDURE IMAGING (02/06/2018 10:19 AM) + + | Narrative | + + | See admission or procedure notes for details of any intraprocedure images obtained. | + + INTRAPROCEDURE IMAGING (02/06/2018 10:19 AM) + + | Narrative | + + | See admission or procedure notes for details of any intraprocedure images obtained. | + + CARDIOLOGY (02/06/2018)in this encounter Visit Diagnoses Not on filein this encounter Admitting Diagnoses + + | Diagnosis | + + | SYNOVIAL SARCOMA LEFT FOOT | + + Administered Medications + +--------+ + +------+------+ | Medication Order | MAR | Action | Dose | Rate | Site | | | Action | Date | | | | + +--------+ + +------+------+ | acetaminophen (TYLENOL) tablet | Given | | 1,000 mg | | | | 1,000 mg 1,000 mg, oral, EVERY 6 | | 8 00:35 | | | | | HOURS, First dose on Sat02/07/18 | | PDT | | | | | at 1230, Until Discontinued | | | | | | + +--------+ + +------+------+ +-------+ + +---+---+ | Given | | 1,000 mg | | | | | 8 07:24 | | | | | | PDT | | | | +-------+ + +---+---+ | Given | | 1,000 mg | | | | | 8 12:41 | | | | | | PDT | | | | +-------+ + +---+---+ +---+---+ | | | +---+---+ + +-------+ +--------+---+---+ | aspirin EC tablet 325 mg 325 | Given | | 325 mg | | | | mg, oral, DAILY, First dose on | | 8 07:47 | | | | | 02/07/18 at 0900, Until | | PDT | | | | | Discontinued | | | | | | + +-------+ +--------+---+---+ +-------+ +--------+---+---+ | Given | | 325 mg | | | | | 8 08:49 | | | | | | PDT | | | | +-------+ +--------+---+---+ | Given | | 325 mg | | | | | 8 08:57 | | | | | | PDT | | | | +-------+ +--------+---+---+ +---+---+ | | | +---+---+ + +-------+ +-------+---+ + | bupivacaine | Given | 02/06/2018 | 27 mL | | Surgical | | (MARCAINE,SENSORCAINE) 0.25 % | | 13:22 | | | Site | | (2.5 mg/mL) injection | | PDT | | | | | INTRAPROCEDURE PRN, Starting [facility] | | | | | | | 02/06/18 at 1322, Until Bettie 02/06/18 | | | | | | | at 1549 | | | | | | + +-------+ +-------+---+ + +---+---+ | | | +---+---+ + +-------+ +-------+---+---+ | citalopram (CELEXA) tablet 40 | Given | 02/08/2018 | 40 mg | | | | mg 40 mg, oral, DAILY, First | | 21:09 | | | | | dose on [facility] 02/06/18 at 1745, Until | | PDT | | | | | Discontinued | | | | | | + +-------+ +-------+---+---+ +-------+ +-------+---+---+ | Given | | 40 mg | | | | | 8 19:55 | | | | | | PDT | | | | +-------+ +-------+---+---+ | Given | | 40 mg | | | | | 8 20:16 | | | | | | PDT | | | | +-------+ +-------+---+---+ +---+---+ | | | +---+---+ + +-------+ +------+---+---+ | clonazePAM (KLONOPIN) tablet 1 | Given | | 1 mg | | | | mg 1 mg, oral, THREE TIMES DAILY | | 8 11:17 | | | | | NEEDED, Starting Sat02/07/18 | | PDT | | | | | at 1151, Until Sat02/11/18 at | | | | | | | 2223, anxiety | | | | | | + +-------+ +------+---+---+ +-------+ +------+---+---+ | Given | | 1 mg | | | | | 8 10:08 | | | | | | PDT | | | | +-------+ +------+---+---+ | Given | | 1 mg | | | | | 8 12:41 | | | | | | PDT | | | | +-------+ +------+---+---+ +---+---+ | | | +---+---+ + +-------+ +--------+---+---+ | gabapentin (NEURONTIN) capsule | Given | | 900 mg | | | | 900 mg 900 mg, oral, THREE TIMES | | 8 22:26 | | | | | DAILY, First dose on 02/10/18 | | PDT | | | | | at 1600, Until Discontinued | | | | | | + +-------+ +--------+---+---+ +-------+ +--------+---+---+ | Given | | 900 mg | | | | | 8 08:57 | | | | | | PDT | | | | +-------+ +--------+---+---+ | Given | | 900 mg | | | | | 8 15:09 | | | | | | PDT | | | | +-------+ +--------+---+---+ +---+---+ | | | +---+---+ + +-------+ +--------+---+ + | heparin injection | Given | 02/06/2018 | 100 mL | | Surgical | | INTRAPROCEDURE PRN, Starting [facility]ettie | | 13:22 | | | Site | | 02/06/18 at 1322, Until Bettie 02/06/18 | | PDT | | | | | at 1549 | | | | | | + +-------+ +--------+---+ + +---+---+ | | | +---+---+ + +-------+ +-------+---+---+ | hydroCHLOROthiazide | Given | | 25 mg | | | | (HYDRODIURIL) tablet 25 mg 25 | | 8 07:47 | | | | | mg, oral, DAILY, First dose on | | PDT | | | | | 02/07/18 at 0900, Until | | | | | | | Discontinued | | | | | | + +-------+ +-------+---+---+ +-------+ +-------+---+---+ | Given | | 25 mg | | | | | 8 08:48 | | | | | | PDT | | | | +-------+ +-------+---+---+ | Given | | 25 mg | | | | | 8 08:57 | | | | | | PDT | | | | +-------+ +-------+---+---+ +---+---+ | | | +---+---+ + +-------+ +---+---+---+ | hydrocortisone 1 % cream | Given | | | | | | topical, TWICE DAILY NEEDED, | | 8 16:26 | | | | | Starting 02/08/18 at 2155, | | PDT | | | | | Until 02/11/18 at 2223, | | | | | | | multimodal control of itching | | | | | | + +-------+ +---+---+---+ +-------+ +---+---+---+ | Given | | | | | | | 8 11:55 | | | | | | PDT | | | | +-------+ +---+---+---+ | Given | | | | | | | 8 08:57 | | | | | | PDT | | | | +-------+ +---+---+---+ +---+---+ | | | +---+---+ + +-------+ +--------+---+---+ | HYDROmorphone (DILAUDID) | Given | 02/08/2018 | 0.3 mg | | | | injection 0.2-0.6 mg 0.2-0.6 mg, | | 09:19 | | | | | intravenous, EVERY 2 HOURS | | PDT | | | | | NEEDED, Starting Bettie 02/06/18 at | | | | | | | 2144, Until Sat02/11/18 at 2223, | | | | | | | severe pain | | | | | | + +-------+ +--------+---+---+ +---+---+ | | | +---+---+ + +-------+ +-------+---+---+ | loratadine (CLARITIN) tablet 10 | Given | | 10 mg | | | | mg 10 mg, oral, DAILY, First | | 8 07:47 | | | | | dose on Bettie 02/06/18 at 1745, Until | | PDT | | | | | Discontinued | | | | | | + +-------+ +-------+---+---+ +-------+ +-------+---+---+ | Given | | 10 mg | | | | | 8 08:49 | | | | | | PDT | | | | +-------+ +-------+---+---+ | Given | | 10 mg | | | | | 8 08:57 | | | | | | PDT | | | | +-------+ +-------+---+---+ +---+---+ | | | +---+---+ + +-------+ +------+---+---+ | melatonin tablet 3 mg 3 mg, | Given | 02/06/2018 | 3 mg | | | | oral, AT BEDTIME NEEDED, | | 23:21 | | | | | Starting Bettie 02/06/18 at 2144, | | PDT | | | | | Until 02/11/18 at 2223, | | | | | | | insomnia | | | | | | + +-------+ +------+---+---+ +---+---+ | | | +---+---+ + +-------+ + +---+ + | NaCl 0.9 % irrigation | Given | 02/06/2018 | 1,000 mL | | Surgical | | INTRAPROCEDURE PRN, Starting [facility]ettie | | 13:12 | | | Site | | 02/06/18 at 1312, Until Bettie 02/06/18 | | PDT | | | | | at 1549 | | | | | | + +-------+ + +---+ + +---+---+ | | | +---+---+ + +-------+ +---+---+---+ | nystatin (MYCOSTATIN) powder | Given | | | | | | topical, TWICE DAILY, First dose | | 8 20:53 | | | | | on Sat02/07/18 at 0000, Until | | PDT | | | | | Discontinued | | | | | | + +-------+ +---+---+---+ +-------+ +---+---+---+ | Given | | | | | | | 8 08:49 | | | | | | PDT | | | | +-------+ +---+---+---+ | Given | | | | | | | 8 08:57 | | | | | | PDT | | | | +-------+ +---+---+---+ +---+---+ | | | +---+---+ + +-------+ +-------+---+---+ | oxyCODONE (immediate release) | Given | | 10 mg | | | | (ROXICODONE) tablet 5-15 mg 5-15 | | 8 04:54 | | | | | mg, oral, EVERY 3 HOURS | | PDT | | | | | NEEDED, Starting Bettie 02/06/18 at | | | | | | | 2028, Until Sat02/11/18 at 2223, | | | | | | | moderate pain | | | | | | + +-------+ +-------+---+---+ +-------+ +-------+---+---+ | Given | | 10 mg | | | | | 8 08:57 | | | | | | PDT | | | | +-------+ +-------+---+---+ | Given | | 10 mg | | | | | 8 13:18 | | | | | | PDT | | | | +-------+ +-------+---+---+ +---+---+ | | | +---+---+ + +-------+ +------+---+---+ | polyethylene glycol (MIRALAX) | Given | | 17 g | | | | packet 34 g 34 g, oral, THREE | | 8 20:53 | | | | | TIMES DAILY NEEDED, Starting | | PDT | | | | | Bettie 02/06/18 at 2144, Until Tue | | | | | | | 02/11/18 at 2223, 1st line - for | | | | | | | no BM for 2 days | | | | | | + +-------+ +------+---+---+ +-------+ +------+---+---+ | Given | | 34 g | | | | | 8 16:19 | | | | | | PDT | | | | +-------+ +------+---+---+ | Given | | 34 g | | | | | 8 05:42 | | | | | | PDT | | | | +-------+ +------+---+---+ +---+---+ | | | +---+---+ + +-------+ +---------+---+---+ | senna-docusate (SENOKOT S) | Given | | 2 | | | | 8.6-50 mg 2 tablet 2 tablet, | | 8 08:48 | tablets | | | | oral, TWICE DAILY, First dose on | | PDT | | | | | Bettie 02/06/18 at 2145, Until | | | | | | | Discontinued | | | | | | + +-------+ +---------+---+---+ +-------+ +---------+---+---+ | Given | | 2 | | | | | 8 20:16 | tablets | | | | | PDT | | | | +-------+ +---------+---+---+ | Given | | 2 | | | | | 8 08:56 | tablets | | | | | PDT | | | | +-------+ +---------+---+---+ +---+---+ | | | +---+---+ in this encounter
--- OUTSIDE RECORDS SUMMARY | ~2018-04-16 | XMS | Encounter Summary ---
Demographics + + + | Address | [address] | | | [place] [address] | + + + | Home Phone [...] + + + | Author | [facility] | + + + | Organization | [facility] | + + + | Address | Unknown | + + + | Phone | Unavailable | + + + Support + + +---------+ + | Name | Relationship | Address | Phone | + + +---------+ + | ROSE BOWENS | ECON | Unknown | | + + +---------+ + Care Team Providers + +------+ + | Care Heavy Duty Diesel Mechanic Name | Role | Phone | + +------+ + | Santo Gooden MD | PCP | | + +------+ + Reason for Visit +--------+ + | Reason | Comments | +--------+ + | Other | incision issue | +--------+ + Encounter Details +--------+ + + + + | Date | Type | Department | Care Team | Description | +--------+ + + + + | 01/30/ | Telephone | Orthopaedics at | Lynda Basurto, | Other (incision | | 2017 | | [facility] [address] | [address] | issue) | | | | [employer] Mailcode: [id number] | [address] | | | | | [facility] | [place], [place] | | | | | and [facility] | [address] | | | | | Floor [place], [place] | [phone] | | | | | [address] | | | | | | [phone] | | | +--------+ + + + [...] Road | | | | | | [place] [address] | | +--------+ + + + + | 04/24/ | Office | Hematology & | Annie Gannon, | | | 2017 | Visit | Oncology | ROME,MUD MIXER OPERATOR [address] | | [address] | | | | | | [place], [place] | | | | | | [address] | | | | | | [phone] | | | | | | | | +--------+ + + + + | 04/24/ | Hospital | Adult Acute Care | Savanna Mari, | | | 2017 | Encounter | | [address] | | | | | | [place], [place] | | | | | | [address] | | | | | | [phone] | | | | | | | [...] [address] | | | | | | [place], [place] | | | | | | [address] | | | | | | [phone] | | | | | | | | +--------+ + + + + as of this encounter Visit Diagnoses Not on filein this encounter"
--- OUTSIDE RECORDS SUMMARY | ~2018-04-16 | XMS | Encounter Summary ---
Demographics + + + | Address | [address] | | | [place] [address] | + + + | Home Phone | | + + + | Preferred Language | Unknown | + + + | Marital Status | Single | + + + | Mandaeism Affiliation | CAT | + + + | Race | Unknown | + + + | Ethnic Group | Not or | + + + Author + + + | Author | [facility] | + + + | Organization | [facility] | + + + | Address | Unknown | + + + | Phone | Unavailable | + + + Support + + +---------+ + | Name | Relationship | Address | Phone | + + +---------+ + | ROSE BOWENS | ECON | Unknown | | + + +---------+ + Care Team Providers + +------+ + | Care Body Repairer Name | Role | Phone | [...] | | 2018 | | Oncology at [place] [facility] | [address] | (neulasta) | | | | [facility] | [place], [place] | | | | | [address] | [address] | | | | | Mailcode: CH7 | [phone] | | | | | [facility] | | | | | | and [facility], 7th | | | | | | Floor [place], [place] | | | | | | [address] | | | | | | [phone] | | | +--------+ + + + [...] 04/24/ | Appointment | Hematology & | Drawin Juan Starter | | | 2018 | | Oncology | [address] | | | | | | [place] [address] | | +--------+ + + + + | 04/24/ | Office | Hematology & | Annie Gannon, | | | 2017 | Visit | Oncology | AGASHANAE,MANAGER [facility] [address] | | | | | | [place], [place] | | | | | | [address] | | | | | | [phone] | | | | | | | | +--------+ + + + + | 04/24/ | Hospital | Adult Acute Care | Savanna Mari, | | | 2017 | Encounter | | [address] | | | | | | [place], [place] | | | | | | [address] | | | | | | [phone] | | | | | | | [...] [address] | | | | | | [place] | | | | | | [address] | | | | | | [phone] | | | | | | | | +--------+ + + + + as of this encounter Visit Diagnoses Not on filein this encounter"
--- OUTSIDE RECORDS SUMMARY | ~2018-04-16 | XMS | Encounter Summary ---
Demographics + + + | Address | [address] | | | [place] [address] | + + + | Home Phone [...] Team Providers + +------+ + | Care Bond Writer Name | Role | Phone | + [...] | | 2017 | | Oncology at [facility] | | | | | | [facility] | | | | | | [address] | | | | | | Mailcode: CH7M | | | | | | [facility] | | | | | | and Healing, 7th | | | | | | Floor [place], [place] | | | | | | [address] | | | | | | [phone] | | | +--------+ + + + [...] [address] | | | | | | [place] [address] | | +--------+ + + + + | 04/24/ | Office | Hematology & | Annie Gannon, | | | 2017 | Visit | Oncology | AGACNP,AUDIO VISUAL EQUIPMENT RENTAL CLERK [address] | | [address] | | | | | | [place], [place] | | | | | | [address] | | | | | | [phone] | | | | | | | | +--------+ + + + + | 04/24/ | Hospital | Adult Acute Care | Savanna Mari, | | | 2017 | Encounter | | MD [address] | | | | | | [place], [place] | | | | | | [address] | | | | | | [phone] | | | | | | | [...] [place] | | | | | | [address] | | | | | | [phone] | | | | | | | | +--------+ + + + + as of this encounter Visit Diagnoses Not on filein this encounter"
--- OUTSIDE RECORDS SUMMARY | ~2018-04-16 | XMS | Clinical Summary ---
Demographics + + + | Address | [address] | | | [place] [address] | + + + | Home Phone [...] + + | Author | [facility] | + + + | Organization | [...] Team Providers + +------+ + | Care Server Cashier Name | Role | Phone | + +------+ + | Santo Gooden MD | PP | | + +------+ + Source Comments LUIS is fully live on both [facility] and [facility] & [facility] Allergies + + + + + + [...] + + + Current Medications + + + +---------+------+------+-------+ | Prescription | Sig. | Disp. | Refills | Star | End | Statu | | | | | | t | Date | s | | | | | | Date | | | + + + +---------+------+------+-------+ | citalopram 40 mg | Take 40 mg by mouth | | | | | Activ | | oral tablet | once daily. | | | | | e | + + + +---------+------+------+-------+ | loratadine | Take 10 mg by mouth | | | | | Activ | | (CLARITIN) 10 mg | once daily. | | | | | e | | oral tablet | | | | | | | + + + +---------+------+------+-------+ | nystatin 100,000 | Apply to affected | 15 g | 0 | 06/1 | | Activ | | unit/gram topical | area two times | | | /20 | | e | | powderIndications: | daily. Apply to | | | 18 | | | | soft tissue | candidal lesions | | | | | | | infection, redness | until lesions have | | | | | | | in pannus, skin | healed. Indications: | | | | | | | folds | skin infection, | | | | | | | | redness in pannus, | | | | | | | | skin folds | | | | | | + + + +---------+------+------+-------+ | | Apply to affected | 25 g | 1 | 06/2 | | Activ | | lidocaine-prilocaine | area as needed. | | | 09/21 | | e | | (EMLA) 2.5-2.5 % | Apply a thick layer | | | 18 | | | | topical cream | to intact skin and | | | | | | | | cover with an | | | | | | | | occlusive dressing. | | | | | | + + + +---------+------+------+-------+ | Miscellaneous | Bedside commode for | 1 each | 0 | 06/2 | | Activ | | [employer] misc | nighttime use | | | 02/19 | | e | | | following foot | | | 18 | | | | | amputation. | | | | | | + + + +---------+------+------+-------+ | ranitidine 150 mg | Take 150 mg by mouth | | | | | Activ | | oral tablet | once daily at | | | | | e | | | bedtime. | | | | | | + + + +---------+------+------+-------+ | prochlorperazine | Take 1 tablet by | 30 | 1 | 07/1 | | Activ | | 10 mg oral | mouth every six | tablet | | 2/20 | | e | | tabletIndications: | hours as needed | | | 18 | | | | Synovial sarcoma | (Give as first line | | | | | | | (HCC) | agent for acute or | | | | | | | | delayed | | | | | | | | nausea/vomiting). | | | | | | | | Max dose: 40 mg/day | | | | | | + + + +---------+------+------+-------+ | ondansetron 8 mg | Take 1 tablet by | 30 | 1 | 07/1 | | Activ | | oral | mouth every twelve | tablet | | 3/20 | | e | | tabletIndications: | hours as needed (2nd | | | 18 | | | | Synovial sarcoma | line for | | | | | | | (HCC) | nausea/vomiting). | | | | | | + + + +---------+------+------+-------+ | LORazepam 0.5 mg | Take 1 tablet by | 30 | 0 | 07/1 | | Activ | | oral | mouth every six | tablet | | 3/20 | | e | | tabletIndications: | hours as needed for | | | 18 | | | | Synovial sarcoma | anxiety (1st line | | | | | | | (HCC) | nausea/vomiting). | | | | | | + + + +---------+------+------+-------+ | acetaminophen 500 | Take 2 tablets by | | | 07/3 | | Activ | | mg oral tablet | mouth every eight | | | 1/20 | | e | | | hours as needed for | | | 18 | | | | | moderate pain. | | | | | | + + + +---------+------+------+-------+ | oxyCODONE | Take 1 to 3 tablets | 80 | 0 | 07/3 | | Activ | | (immediate release) | by mouth every | tablet | | 1/20 | | e | | 5 mg oral | three hours as | | | 18 | | | | tabletIndications: | needed for moderate | | | | | | | Synovial sarcoma | pain. Wean off soon | | | | | | | ([facility]) | and do not combine | | | | | | | | with other sedating | | | | | | | | meds like Clonazapam | | | | | | + + + +---------+------+------+-------+ | senna-docusate | Take 2 tablets by | 120 | 2 | 03/04 | | Activ | | 8.6-50 mg oral | mouth two times | tablet | | 09/21 | | e | | tablet | daily. Prevention of | | | 18 | | | | | opioid induced | | | | | | | | constipation | | | | | | + + + +---------+------+------+-------+ | OLANZapine 10 mg | Take 1 tablet by | | | 03/02 | | Activ | | oral tablet | mouth once daily at | | | 3/20 | | e | | | bedtime. | | | 18 | | | + + + +---------+------+------+-------+ | LYRICA 225 mg oral | Take 300 mg by mouth | | | 07/1 | | Activ | | capsule | two times daily. At | | | 3/20 | | e | | | 0900 and 1700. | | | 18 | | | + + + +---------+------+------+-------+ | POLYETHYLENE | Take 17 g by mouth | | | | | Activ | | GLYCOL 3350 ORAL | once daily. Adjust | | | | | e | | | dose to effect. May | | | | | | | | take up to 3 times | | | | | | | | daily as needed for | | | | | | | | constipation. | | | | | | + + + +---------+------+------+-------+ | metroNIDAZOLE 500 | Take 1 tablet by | 90 | 0 | 08/0 | 09/0 | Activ | | mg oral | mouth every eight | tablet | | 8/20 | 7/20 | e | | tabletIndications: | hours. Indications: | | | 18 | 18 | | | osteomyelitis | osteomyelitis | | | | | | + + + +---------+------+------+-------+ Active Problems + + + | Problem | Noted Date | + + + | Encounter for long-term (current) use of antibiotics | 03/31/2018 | + + + | Osteomyelitis ([facility]) | 03/31/2018 | + + + | Thrombocytopenia ([facility]) | 03/25/2018 | + + + | Neutropenic fever ([facility]) | 03/23/2018 | + + + | Hx of BKA, left ([facility]) | 03/23/2018 | + + + | Amputation stump infection (HCC) | 03/23/2018 | + + + | Obesity | 03/23/2018 | + + + | Anemia | 03/23/2018 | + + + | 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 | + + + | Mass of left foot | 01/15/2018 | + + + Encounters +--------+ + + + + | Date | Type | Specialty | Care Team | Description | +--------+ + + + + | 04/16/ | Telephone | | Sandra Patel MD | Post-discharge | | 2018 | | | | follow-up | | | | | | (CHEMOTHERAPY | | | | | | Epi/Ifos C3); Care | | | | | | Coordination | | | | | | (NEULASTA) | +--------+ + + + + | 04/15/ | Telephone | | Angely Stephen, | SRUTHI line | | 2017 | | | MD | | +--------+ + + + + | 04/14/ | Telephone | | Sandra Patel MD | Lab Draw | | 2017 | | | | | +--------+ + + + + | 04/10/ | Telephone | | Sandra Patel MD | Treatment | | 2017 | | | | Clarification (port | | | | | | maintenance) | +--------+ + + + + | 04/09/ | Office | | Angely Stephen, | Osteomyelitis of | | 2018 | Visit | | MD | left leg (HCC) | | | | | | (Primary Dx); Hx of | | | | | | BKA, left ([facility]); E | | | | | | coli infection; Long | | | | | | term (current) use | | | | | | of antibiotics | +--------+ + + + + | 04/09/ | Office | | Lynda Basurto | Amputation stump | | 2017 | Visit | | MD | infection (HCC) | | | | | | (Primary Dx) | +--------+ + + + + | 04/09/ | Office | | Sandra Patel MD | 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 | | | (HCC) (Primary Dx) | +--------+ + + + + | 04/09/ | Hospital | | Darwin Juan Starter | | | 2017 | Encounter | | | | +--------+ + + + + | 04/09/ | Hospital | | Linh Pack, | | | 2017 | Encounter | | MD | | +--------+ + + + + | 04/09/ | Documentati | | Work, Social | Social Work Notes | | 2017 | on | | | | +--------+ + + + + | 04/09/ | Pharmacy | | | | | 2017 | Visit | | | | +--------+ + + + + | 04/07/ | Telephone | | Wendy Solitario | Diarrhea | | 2017 | | | RN | | +--------+ + + + + | 04/03/ | Telephone | | Lynda Basurto, | Other (Work release | | 2017 | | | | letter) | +--------+ + + + + | 04/02/ | Telephone | | Sandra Patel MD | Symptom Management; | | 2017 | | | | Treatment Questions | +--------+ + + + + | 04/01/ | Pharmacy | | | | 2017 | Visit | | | | +--------+ + + + + | 04/01/ | Documentati | | Wendy Solitario, | RN Care Management; | | 2017 | on | | RN | Infectious disease | +--------+ + + + + | 03/31/ | Procedure | | | | | 2017 | Pass | | | | +--------+ + + + + | 03/31/ | Procedure | | | | | 2017 | Pass | | | | +--------+ + + + + | 03/27/ | Procedure | | | | | 2017 | Pass | | | | +--------+ + + + + | 03/27/ | Surgery | | Lynda Basurto, | IRRIGATION AND | | 2017 | | | MD | DEBRIDEMENT LEFT | | | | | | BELOW KNEE | | | | | | AMPUTATION SITE, | | | | | | WOUND VAC CHANGE, | | | | | | REVISION BELOW KNEE | | | | | | AMPUTATION | +--------+ + + + + | 03/26/ | Anesthesia | | Vardidier, | | | 2017 | Event | | Kemar Martin MD | | +--------+ + + + + | 03/24/ | 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 Apprentice | | Lynda Basurto, | Sylvia stump | | 2017 | | | MD | infection (HCC) | | | | | | (Primary Dx) | +--------+ + + + + | 03/24/ | Anesthesia | | Lady | | | 2017 | Event | | Kemar Rodgers CRNA | | +--------+ + + + + 03/24/ | Procedure | | | | | 2017 | Pass | | | | +--------+ + + + + 03/24/ | Surgery | | Macie Torre, | I & Ricci SHIN | | 2017 | | | MD | | +--------+ + + + + | 03/23/ | Hospital | | Arsenio, | | | 2018 - | Encounter | | MD Annabelle | | | | | | Larry Pinto MD | | | 04/01/ | | | Greg Del Rosario | | | 2017 | | | MD Sho | | +--------+ + + + + +---+ + | | Discharge | | | Summaries | | | - | | | Migue lÁngel, | | | Greg Berkowitz, | | | - | | | 04/01/2018 | | | 3:47 PM | | | PDT | | | Formatting | | | of this | | | note may be | | | different | | | from the | | | original.In | | | ternal | | | Medicine | | | Service | | | Discharge | | | SummaryPCP: | | | Santo | | | Berkley, | | | Author: | | | GREG Berkowitz | | | MIGUEL ÁNGEL | | | | | | Discharging | | | Physician: | | | GREG Berkowitz | | | MIGUEL ÁNGEL | | | | | | Admission | | | Date: | | | 03/23/2018 | | | Discharge | | | Date: | | | 04/01/2018 | | | Hospital | | | diagnoses:D | | | iagnoses | | | Principal | | | Final | | | Diagnosis: | | | 1. L BKA | | | stump | | | osteomyelit | | | is due to | | | E. Coli, | | | prevotella, | | | E. | | | FaecalisAdd | | | itional | | | Diagnoses: | | | 2. | | | Synovial | | | sarcoma3. | | | Neutropenic | | | fever4. | | | Severe | | | anemia | | | related to | | | bone marrow | | | | | | suppression | | | 5. | | | Hypernatrem | | | ia6. | | | Pancytopeni | | | a secondary | | | to | | | chemotherap | | | yInvolved | | | consulting | | | services:1. | | | | | | Orthopedic | | | surgery - | | | Dr Doung, | | | Buckner and | | | Schabel2. | | | Hematology | | | - Dr | | | [email or web address] | | | . ID - Dr | | | [email or web address]. | | | Oncology - | | | Dr | | | GraffProced | | | ures | | | performed:7 | | | :Orth | | | opaedic | | | Surgery: | | | Irrigation | | | and | | | debridement | | | of left | | | below-knee | | | amputation | | | amputation | | | site, wound | | | vac | | | application | | | 03/27/18:O | | | rthopaedic | | | Surgery: | | | Irrigation, | | | | | | debridement | | | , and | | | revision of | | | left | | | below-knee | | | amputation | | | site, wound | | | measuring | | | 20 cm in | | | length, | | | drain | | | placement | | | and skin | | | vac | | | application | | | (removed | | | prior to | | | discharge)R | | | chan For | | | Admission/ | | | Brief | | | Hospital | | | Course: | | | Keera Cage | | | is a 32 | | | year old | | | female with | | | morbid | | | obesity and | | | synovial | | | sarcoma of | | | her left | | | foot s/p | | | left BKA on | | | 02/06/18 and | | | 2 cycles | | | of adjuvant | | | | | | chemotherap | | | y with | | | ifosfamide/ | | | epirubicin | | | (last dose | | | 03/12/18), | | | who | | | presented | | | to OSH with | | | | | | neutropenic | | | fever | | | secondary | | | to | | | amputation- | | | site infec | | | tion. | | | Neutropenic | | | fever | | | resolved | | | but | | | hospital | | | course was | | | complicated | | | by | | | polymicrobi | | | al | | | osteomyelit | | | is of the | | | left BKA | | | site | | | requiring | | | revision, | | | as well as | | | persistent | | | anemia. | | | Hospital | | | Course by | | | Problem:Lef | | | t BKA | | | site infec | | | tion with | | | osteomyelit | | | isLLE | | | cellulitisS | | | he | | | developed | | | infection | | | of left her | | | BKA site | | | in setting | | | of | | | neutropenia | | | . On | | | 03/24/18, | | | ortho | | | performed | | | irrigation, | | | | | | debridement | | | , and wound | | | vac | | | placement, | | | with | | | improving | | | erythema | | | afterward. | | | On 03/27/18, | | | a second | | | washout and | | | | | | debridement | | | were | | | performed | | | prior to | | | definitive | | | closure. | | | Intraoperat | | | russ tissue | | | and bone | | | culutres | | | yielded | | | polymicrobi | | | al | | | infection | | | (E. coli, | | | Enterococcu | | | s faecalis, | | | and | | | Prevotella | | | bivia), and | | | surgical | | | pathology | | | was | | | consistent | | | with | | | osteomyelit | | | is. She was | | | initially | | | treated | | | empirically | | | with | | | vancomycin | | | and | | | cefepime, | | | narrowed to | | | | | | piperacilli | | | n-tazobacta | | | m on return | | | of | | | susceptibil | | | ities. Per | | | ID, plan | | | for | | | antibiotic | | | course of 6 | | | weeks from | | | last | | | procedure | | | (03/27/18 - | | | 05/08/18). | | | Pain and | | | lower | | | extremity | | | edema | | | improved | | | over | | | hospital | | | course. | | | Drain was | | | removed | | | prior to | | | discharge.- | | | | | | Piperacilli | | | n-tazobacta | | | m 10.125g | | | IV | | | continuousl | | | y over 24 | | | hours | | | through | | | OPAT until | | | 05/08/18- | | | Discharged | | | with | | | oxycodone, | | | acetaminoph | | | en, and | | | pregabalin | | | for pain | | | management, | | | along with | | | bowel | | | regimen- | | | Follow-up | | | with | | | orthopaedic | | | surgery | | | and | | | hematology- | | | oncology on | | | 04/09/18- | | | Follow-up | | | with ID | | | prior to | | | ending | | | antibiotic | | | course- | | | Outpatient | | | physical | | | therapy Ne | | | utropenic | | | Fever, | | | resolvedOn | | | presentatio | | | n to | | | OSH, [facility] | | | was 31. On | | | transfer | | | here, [facility] | | | was 640 and | | | recovered | | | steadily | | | from there, | | | with | | | resolution | | | of her | | | fever. Per | | | hem/onc, | | | this | | | neutropenia | | | was | | | expected | | | after | | | course of | | | ifosfamide, | | | with | | | neutrophil | | | rodriguez | | | typically | | | occurring | | | on day 8-14 | | | after last | | | dose (her | | | last dose | | | 03/12/18). | | | As above, | | | her source | | | of fever | | | was her | | | infection | | | of left BKA | | | site. | | | Blood | | | cultures | | | were | | | negative. | | | Initial | | | antibiotic | | | treatment | | | with | | | vancomycin | | | and | | | cefepime, | | | which was | | | changed to | | | piperacilli | | | n-tazobacta | | | m based on | | | ID | | | recommendat | | | ions when | | | susceptibil | | | ities | | | returned | | | from the | | | BKA site | | | tissue and | | | bone | | | cultures. | | | Upon | | | discharge, | | | [facility] was | | | 8210 and | | | she had | | | been | | | afebrile | | | for 8 | | | days.- | | | Follow-up | | | with her | | | primary | | | oncologist, | | | Dr. Flores | | | Jorge on | | | 04/09/18 Syn | | | ovial | | | [place], | | | left | | | footComplet | | | ed cycle 2 | | | of | | | ifosfamide/ | | | epirubicin | | | on 03/12/18 | | | soon after | | | left BKA. | | | Last dose | | | of Neulasta | | | on | | | 03/17/18.- | | | Follow-up | | | with | | | orthopaedic | | | surgery | | | and her | | | primary | | | oncologist | | | on 04/09/18 | | | regarding | | | timing of | | | cycle 3 of | | | chemotherap | | | y given | | | complicatio | | | ns of | | | neutropenic | | | fever and | | | osteomyelit | | | is Severe | | | anemiaHer | | | WBC and | | | platelet | | | levels | | | recovered | | | early in | | | her | | | hospital | | | course, but | | | her anemia | | | persisted | | | despite | | | multiple | | | transfusion | | | s (total of | | | 7 units | | | pRBCs here | | | and 1 unit | | | previously | | | at OSH). | | | Hematology | | | was | | | consulted, | | | who | | | believed | | | her anemia | | | was likely | | | due to | | | hypoprolife | | | ration in | | | setting of | | | recent sys | | | temic | | | chemotherap | | | y (anemia | | | and marrow | | | suppression | | | are known | | | side | | | effects of | | | ifosfamide) | | | , with | | | exacerbatio | | | n due to | | | acute | | | infection | | | and | | | inflammatio | | | n. Workup | | | was | | | negative | | | for | | | consumptive | | | pathology | | | and blood | | | loss | | | (including | | | CT abdomen, | | | pelvis, | | | legs). | | | Before | | | discharge | | | her | | | hemoglobin | | | had | | | improved | | | and her | | | repeat | | | reticulocyt | | | e studies | | | indicated | | | an | | | appropriate | | | response | | | to anemia, | | | suggesting | | | marrow | | | recovery. | | | Hematology | | | and primary | | | team felt | | | she was | | | safe for | | | discharge | | | with close | | | follow-up | | | and repeat | | | CBC and | | | reticulocyt | | | e count | | | this week.- | | | Return | | | precautions | | | for signs | | | and | | | symptoms of | | | anemia | | | discussed | | | with pt and | | | her aunt- | | | Repeat CBC | | | and | | | reticulocyt | | | e count on | | | 04/04/18- | | | Follow-up | | | with Dr. | | | Sandra Jorge, | | | her | | | primary | | | oncologist, | | | on | | | 04/09/18 Thr | | | ombocytopen | | | iaPlatelet | | | count was | | | 24 on | | | admission, | | | requiring | | | transfusion | | | with | | | platelets | | | x1 unit on | | | 03/23/18. | | | Her levels | | | subsequentl | | | y recovered | | | and were | | | stable >200 | | | upon | | | discharge. | | | No evidence | | | of | | | bleeding.- | | | Follow-up | | | on repeat | | | CBC on | | | 04/04/18 Hyp | | | ernatremia, | | | mild, | | | asymptomati | | | cSodium | | | mildly | | | elevated at | | | 147-148 | | | over three | | | days in | | | setting of | | | multiple | | | procedures | | | and periods | | | of NPO | | | status. | | | Improved | | | after | | | fluids, and | | | was 140 | | | upon | | | discharge. | | | She was | | | never | | | symptomatic | | | . Pertinen | | | t | | | Findings:La | | | bs:WBC: 2.1 | | | on | | | admission, | | | steadily | | | increased | | | to peak of | | | 27, | | | declined to | | | 10.9ANC: | | | 31 at OSH, | | | 640 on | | | transfer | | | here, | | | steady | | | increase to | | | >5000.RBC: | | | 8.2 on | | | admission, | | | labile over | | | hospital | | | course, | | | dipping | | | under 7 | | | multiple | | | times with | | | lowest | | | value of | | | 4.9, | | | improved to | | | 8.7 on | | | dischargePl | | | t: 24 on | | | admission, | | | steady | | | improvement | | | , 238 on | | | dischargeRe | | | ticulocyte | | | count: 0.3 | | | on 03/23 | | | (absolute | | | retic | | | 9300), 6.8 | | | on 04/01 | | | (absolute | | | retic | | | 194,000)Nor | | | mal | | | haptoglobin | | | Negative | | | direct | | | CoombsEleva | | | abhilash | | | fibrinogenN | | | a: 148 at | | | peak, 140 | | | upon | | | discharge | | | Imaging:CT | | | Abdomen and | | | Pelvis | | | with IV | | | Contrast, | | | 03/31/18: | | | Unremarkabl | | | e, no e/o | | | hemorrhageC | | | T Lower | | | Extremities | | | with IV | | | Contrast, | | | 03/31/18: No | | | CT e/o | | | osteomyelit | | | is, | | | hematoma, | | | or | | | abscess Ou | | | tstanding | | | or Pending | | | Labs/Studie | | | s:Plan for | | | repeat CBC | | | and | | | reticulocyt | | | e count on | | | 04/04/18 a | | | [place] | | | Infusion | | | Clinic.Appo | | | intments:Fu | | | ture | | | Appointment | | | s | | | Provider | | | Department | | | Dept Phone | | | Center | | | 04/09/2018 | | | 2:00 PM Hem | | | Starter | | | Nurse | | | Hematology/ | | | Medical | | | Oncology at | | | [facility] | | | [phone] | | | 4 HemOnc | | | 04/09/2018 | | | 3:10 PM | | | Sandra E | | | Jorge | | | Hematology/ | | | Medical | | | [facility] at [facility] | | | [phone] | | | 4 [place] | | | 04/09/2018 | | | 3:40 PM | | | [facility] | | | Doung [facility] | | | Orthopaedic | | | s & | | | Rehabilitat | | | ion | | | [phone] | | | 8 [facility] | | | Discharge | | | condition: | | | | | | FairDischar | | | ge | | | destination | | | (If SNF, | | | which SNF): | | | | | | HomeDischar | | | ge | | | activity: | | | Non-weight | | | bearing | | | LLEDischarg | | | e diet: | | | Regular | | | Medication | | | List START | | | taking | | | these | | | medications | | | | | | acetaminoph | | | en 500 mg | | | TabCommonly | | | known as: | | | | | | TYLENOLTake | | | 2 tablets | | | by mouth | | | every eight | | | hours as | | | needed for | | | moderate | | | pain. | | | piperacilli | | | n-tazobacta | | | m IV | | | continuous | | | infusionCom | | | monly known | | | as: | | | ZOSYNInject | | | 0.42 g/hr | | | into the | | | vein (IV) | | | continuousl | | | y. To be | | | admixed per | | | infusion | | | pharmacy | | | standard | | | policy | | | and/or | | | procedure. | | | Indications | | | : | | | bone/joint | | | infection | | | senna-docus | | | ate 8.6-50 | | | mg | | | TabCommonly | | | known as: | | | SENOKOT | | | STake 2 | | | tablets by | | | mouth two | | | times | | | daily. | | | Prevention | | | of opioid | | | induced | | | constipatio | | | n CHANGE | | | how you | | | take these | | | medications | | | | | | OLANZapine | | | 5 mg | | | TabCommonly | | | known as: | | | | | | ZYPREXATake | | | 5 mg by | | | mouth once | | | daily at | | | bedtime.Wha | | | t changed: | | | Another | | | medication | | | with the | | | same name | | | was | | | removed. | | | Continue | | | taking this | | | | | | medication, | | | and follow | | | the | | | directions | | | you see | | | here. * | | | polyethylen | | | e glycol 17 | | | gram | | | PwpkCommonl | | | y known as: | | | | | | MIRALAXMix | | | 1 packet | | | and take | | | orally once | | | daily. | | | Take this | | | medication | | | while you | | | are on | | | narcotic | | | pain | | | medication. | | | Hold for | | | loose stool | | | | | | Indications | | | : | | | constipatio | | | nWhat | | | changed: | | | Another | | | medication | | | with the | | | same name | | | was added. | | | Make sure | | | you | | | understand | | | how and | | | when to | | | take each. | | | * | | | polyethylen | | | e glycol 17 | | | gram | | | PwpkCommonl | | | y known as: | | | | | | MIRALAXMix | | | 1 packet | | | and take | | | orally once | | | daily as | | | needed. No | | | BM x 1 | | | dayWhat | | | changed: | | | You were | | | already | | | taking a | | | medication | | | with the | | | same name, | | | and this | | | prescriptio | | | n was | | | added. Make | | | sure you | | | understand | | | how and | | | when to | | | take each. | | | * This | | | list has 2 | | | medication( | | | s) that are | | | the same | | | as other | | | medications | | | prescribed | | | for you. | | | Read the | | | directions | | | carefully, | | | and ask | | | your doctor | | | or other | | | care | | | provider to | | | review | | | them with | | | you. | | | CONTINUE | | | taking | | | these | | | medications | | | | | | citalopram | | | 40 mg | | | TabCommonly | | | known as: | | | CELEXATake | | | 40 mg by | | | mouth once | | | daily. | | | CLARITIN 10 | | | mg | | | TabGeneric | | | drug: | | | loratadineT | | | roberto 10 mg | | | by mouth | | | once daily. | | | | | | lidocaine-p | | | rilocaine | | | 2.5-2.5 % | | | CreaCommonl | | | y known as: | | | EMLAApply | | | to | | | affected | | | area as | | | needed. | | | Apply a | | | thick layer | | | to intact | | | skin and | | | cover with | | | an | | | occlusive | | | dressing. | | | LORazepam | | | 0.5 mg | | | TabCommonly | | | known as: | | | ATIVANTake | | | 1 tablet | | | by mouth | | | every six | | | hours as | | | needed for | | | anxiety | | | (1st line | | | nausea/vomi | | | ting). | | | Miscellaneo | | | [facility] | | | Supply | | | MiscCommonl | | | y known as: | | | | | | Miscellaneo | | | [facility] | | | SupplyBedsi | | | de commode | | | for | | | nighttime | | | use | | | following | | | foot | | | amputation. | | | nystatin | | | 100,000 | | | unit/gram | | | PowdCommonl | | | y known as: | | | | | | MYCOSTATINA | | | pply to | | | affected | | | area two | | | times | | | daily. | | | Apply to | | | candidal | | | lesions | | | until | | | lesions | | | have | | | healed. | | | Indications | | | : skin | | | infection, | | | redness in | | | pannus, | | | skin folds | | | ondansetron | | | 8 mg | | | TabCommonly | | | known as: | | | ZOFRANTake | | | 1 tablet | | | by mouth | | | every | | | twelve | | | hours as | | | needed (2nd | | | line for | | | nausea/vomi | | | ting). | | | oxyCODONE | | | (immediate | | | release) 5 | | | mg | | | TabCommonly | | | known as: | | | | | | ROXICODONET | | | roberto 1 to 3 | | | tablets by | | | mouth | | | every three | | | hours as | | | needed for | | | moderate | | | pain. Wean | | | off soon | | | and do not | | | combine | | | with other | | | sedating | | | meds like | | | Clonazapam | | | pregabalin | | | 225 mg | | | CapCommonly | | | known as: | | | LYRICATake | | | 1 capsule | | | by mouth | | | two times | | | daily. | | | Indications | | | : | | | Postoperati | | | ve Acute | | | Pain, | | | neuropathy, | | | phantom | | | pain | | | prochlorper | | | azine 10 mg | | | | | | TabCommonly | | | known as: | | | | | | COMPAZINETa | | | ke 1 tablet | | | by mouth | | | every six | | | hours as | | | needed | | | (Give as | | | first line | | | agent for | | | acute or | | | delayed | | | nausea/vomi | | | ting). Max | | | dose: 40 | | | mg/day | | | ranitidine | | | 150 mg | | | TabCommonly | | | known as: | | | ZANTACTake | | | 150 mg by | | | mouth once | | | daily at | | | bedtime. | | | STOP taking | | | these | | | medications | | | | | | clindamycin | | | 300 mg | | | CapCommonly | | | known as: | | | CLEOCIN | | | hydroCHLORO | | | thiazide 25 | | | mg | | | TabCommonly | | | known as: | | | | | | HYDRODIURIL | | | | | | Lidocaine-D | | | iphenhyd-Al | | | -Mag-Sim | | | 200-25-400- | | | 40 mg/30 mL | | | | | | MwshCommonl | | | y known as: | | | | | | FIRST-MOUTH | | | WASH BLM | | | Discharge | | | physical | | | examVital | | | Signs at | | | discharge:B | | | P: 139/82 | | | | | | (04/01/18 | | | 0750) | | | Pulse: 74 | | | | | | (04/01/18 | | | 0750) | | | Resp: 16 | | | | | | (04/01/18 | | | 0750) | | | Weight: | | | 141.6 kg | | | (312 lb 2.7 | | | oz) | | | (03/24/18 | | | 0945) Body | | | mass index | | | is 47.47 | | | kg/m .Gene | | | ral: Awake, | | | alert, | | | obese | | | female, | | | smiling, in | | | no acute | | | distress.HE | | | ENT/Neck: | | | Normocephal | | | ic, | | | atraumatic, | | | hairless | | | scalp, no | | | cervical | | | lymphadenop | | | athy, | | | MMMCardiova | | | scular: | | | RRR, no | | | murmurs, | | | well | | | perfused, | | | no | | | cyanosisPul | | | monary: | | | CTAB, | | | breathing | | | comfortably | | | on room | | | airAbdomina | | | l: | | | nontender, | | | non-distend | | | ed, | | | obeseSkin: | | | Bunnlevel, warm, | | | | | | well-perfus | | | ed, no | | | ecchymosesE | | | xtremities: | | | LLE | | | below-the-k | | | nee | | | amputation | | | site | | | dressed in | | | compression | | | wrap. | | | Drain and | | | skin VAC | | | have been | | | removed. | | | PNB | | | catheter | | | has been | | | removed. No | | | | | | significant | | | TTP on | | | BLE.Neuro: | | | A&Ox4, | | | grossly | | | intact | | | motor and | | | sensory | | | functionPsy | | | ch: | | | Appropriate | | | Lines: Port | | | in place | | | on right | | | chestDischa | | | rge weight: | | | Wt | | | Readings | | | from Last 1 | | | | | | Encounters: | | | 03/24/18 | | | 141.6 kg | | | (312 lb 2.7 | | | oz) | | | Discharging | | | Physician: | | | GREG Berkowitz | | | MIGUEL ÁNGEL, | | | MDAttending | | | Physician: | | | GREG Berkowitz | | | MIGUEL ÁNGEL | | | MD I spent | | | more than | | | 36 minutes | | | face-to-fac | | | e with the | | | patient of | | | which | | | greater | | | than 50% | | | was spent | | | counseling | | | the patient | | | | | | coordinatin | | | g care. | +---+ + +--------+ +---+ + + | 03/23/ | Intake | | | N/A | | 2017 | | | | | +--------+ +---+ + + | 03/22/ | Telephone | | Jakub More MD | Fever | | 2017 | | | | | +--------+ +---+ + + | 03/18/ | Telephone | | Sandra Patel MD | Lab Draw | 2017 | | | | | +--------+ +---+ + + | 03/14/ | Pharmacy | | | | | 2017 | Visit | | | | +--------+ +---+ + + | 03/14/ | Telephone | | Work, Social | Social Work Notes | | 2017 | | | | | +--------+ +---+ + + | 03/13/ | Pharmacy | | | | | 2017 | Visit | | | | +--------+ +---+ + + | 03/12/ | Hospital | | Guero Vargas, | | | 2018 - | Encounter | | MD | | | | | | | | | 03/15/ | | | | | | 2018 | | | | | +--------+ +---+ + + +---+ + | | Discharge | | | Summaries | | | - Judy, | | | Leo P, | | | ,PhD - | | | 03/15/2018 | | | 11:01 AM | | | PDT | | | Formatting | | | of this | | | note may be | | | different | | | from the | | | original.Or | | | [employer] | | | [facility] | | | [facility] | | | Discharge | | | SummaryDisc | | | harging | | | Provider: | | | Leo | | | JudyDischa | | | rging | | | Attending | | | Physician: | | | Guero | | | SamHospi | | | darrius Stay: 3 | | | day(s)PCP: | | | Santo | | | Quaempts, | | | MDAdmission | | | Date: | | | 03/12/2018Di | | | scharge | | | Date: | | | 03/15/18Hosp | | | ital Stay: | | | 3 | | | day(s)Reaso | | | n for | | | Admission:H | | | igh Risk | | | Cehmotherap | | | yPrincipal | | | Final | | | Diagnosis:S | | | ynovial | | | SarcomaAddi | | | tional | | | Diagnoses:F | | | luid volume | | | | | | overloadSof | | | t tissue | | | infectionPr | | | ocedures:No | | | neHospital | | | Course:Keer | | | a Rhea | | | Cage is a | | | 32 y.o. 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 | | | Pathology: | | | synovial | | | sarcoma | | | with | | | extensive | | | acute | | | inflammatio | | | n, abscess, | | | and | | | necrosis | | | with | | | negative | | | margins. Pt | | | admitted | | | for post op | | | | | | chemotherap | | | y C2D1 | | | Ifos/Epirub | | | icin. # | | | high risk | | | synovial | | | sarcoma of | | | the left | | | foot: | | | Upfront | | | resection | | | d/t rapid | | | disease | | | progression | | | and | | | infection. | | | C1 c/b | | | delayed | | | nausea, | | | mucositis, | | | and | | | neutropenic | | | fever. pt | | | tolerating | | | chemotherap | | | y with no | | | s/sxs of | | | encephalopa | | | thy, n/v or | | | hematuria. | | | Will | | | continue | | | with chemo | | | as planned | | | with close | | | monitoring. | | | - | | | neulasta | | | scheduled @ | | | [facility] for | | | 03/17 @ | | | 10am. | | | labs and | | | port care @ | | | [facility] | | | start | | | 03/21. Chem | | | otherapy: | | | C2D1 | | | 03/12/18Ifos | | | | | | 2500 mg/m^ | | | 2 x 2.6 | | | m^2 with | | | Mesna | | | 2200 mg in | | | NaCl 0.9% | | | for 2hrs | | | q20hrs x | | | 4 dosesEpi | | | rubicin | | | 30 mg/m2 x | | | x 2.6 | | | m^2 q20hrs | | | x | | | 4 dosesMes | | | na 2200 mg | | | for | | | 15minutes | | | to be given | | | 4hrs and | | | 8hrs after | | | the start | | | of | | | Ifosfamide | | | Supportive | | | care: | | | Dexamethaso | | | ne 20mg | | | daily x | | | 4 doses=>d | | | ecrease | | | down to 8mg | | | (03/14/18) | | | as dex | | | causing | | | exacerbatio | | | n of | | | anxiety, | | | jitteriness | | | /restlessne | | | ss. | | | Ondansetron | | | 24mg daily | | | x | | | 4 dosesOla | | | nzapine 5mg | | | qhs.=> | | | increase to | | | 10mg qhs | | | (03/14/18) | | | d/t | | | decreasing | | | dex from | | | 20mg down | | | to 8mg as | | | dex causing | | | | | | exacerbatio | | | n of | | | anxiety, | | | jitteriness | | | /restlessne | | | ss. | | | Lorazepam | | | 0.5mg prn | | | q24hrs, | | | prochlopara | | | zine 10 mg | | | PO/IV | | | q6hrs prn1L | | | NaCl 0.9% | | | bolus | | | follow by | | | MIVF | | | 125mL/hr. | | | - cont | | | checking | | | daily UA | | | for | | | hematuria | | | while | | | getting | | | Ifos, | | | repeat UA | | | if RBC | | | >/=10 hold | | | Ifos if UA | | | RBC remains | | | >10. Call | | | Urology for | | | bladder | | | irrigation | | | if pt is | | | symptomatic | | | or having | | | gross | | | hematuria. | | | - cont to | | | monitor | | | closely for | | | evidence | | | of ifos | | | neurotoxici | | | ty | | | (somnolence | | | , | | | asterixis, | | | confusion, | | | etc). Hold | | | Ifos if pt | | | having | | | s/sxs of | | | encephalopa | | | thy. # | | | Delayed | | | nausea: ag | | | gressive | | | supportive | | | care as | | | above. As | | | above | | | decreasing | | | dex down to | | | 8mg daily | | | from 20mg, | | | increasing | | | olanzapine | | | from 5 to | | | 10mg and | | | start | | | compazine | | | 10mg q8hrs. | | | Will | | | discharge | | | pt with | | | schedule | | | dex x4, | | | olanzapine | | | 10mg qhs | | | and | | | scheduled | | | compazine | | | 10mg q8hrs | | | for the | | | first 2 | | | days. # | | | Heartburn: | | | controlled | | | with | | | Zantac- | | | will cont | | | with Zantac | | | 150mg | | | bid=> | | | switched to | | | famotidine | | | 40mg daily | | | during | | | admission | | | as Zantac | | | is not on | | | formula. | | | # | | | Swelling in | | | RLE:has | | | not | | | improved | | | much since | | | dc [facility] | | | [facility] | | | week ago, | | | pt also | | | having some | | | pain. She | | | is at high | | | risk for | | | DVT. Will | | | get doppler | | | to r/o, | | | doppler | | | negative.- | | | cont | | | enoxaparin | | | 40mg bid | | | for prophy. | | | Using bid | | | d/t pt's | | | wt. - pt | | | declined | | | lasix. # | | | depression/ | | | Anxiety: | | | exacerbatio | | | n of | | | anxiety due | | | to high | | | dose dex. | | | Adjustments | | | to | | | medication | | | as above. | | | - cont | | | with home | | | dose | | | Citalopram | | | 40mg daily | | | - start | | | Olanzapine1 | | | 0mg qhs | | | adjunct to | | | citalopram | | | and for | | | CINV | | | prophy # | | | LLE Stump: | | | Per Dr. | | | Jorge there | | | is a risk | | | of wound | | | dehiscence | | | with | | | starting | | | chemo, but | | | the benefit | | | of | | | starting | | | chemo | | | outweighs | | | the risk. | | | Dr. Basurto | | | saw pt in | | | clinic | | | 03/12, she | | | removed a | | | few | | | stitches | | | but still | | | left some | | | in, Dr. | | | Doung | | | cleared pt | | | to have | | | chemo . | | | DrPiper Basurto | | | will see | | | pt back in | | | clinic | | | prior to | | | C3. Pt | | | c/o scant | | | dc after | | | showering | | | and is very | | | concern | | | about | | | infection. | | | We have | | | not been | | | able to | | | expressed | | | or | | | witnessed | | | any | | | purulent | | | discharge. | | | Currently | | | no s/sxs of | | | infection | | | based on | | | physical | | | exam, | | | however | | | anticipate | | | pt will | | | become | | | neutropenic | | | a few days | | | after | | | discharge. | | | She was | | | hospitalize | | | d for | | | neutropenic | | | fever | | | after C1, | | | has been | | | in/out of | | | hospital | | | reasonable | | | to start pt | | | on prophy | | | abx course | | | this time | | | with | | | clindamycin | | | to also | | | cover for | | | MRSA. - | | | Will cont | | | to monitor | | | surgical | | | wound | | | closely. | | | # stump | | | pain/phanto | | | m | | | pain: bett | | | er control. | | | Pt self | | | titrated | | | lyrica up | | | to 225mg a | | | few days | | | after dc | | | from | | | hospital | | | for C1 | | | chemo.- | | | cont with | | | lyrica | | | 225 mg bid | | | - | | | Oxycodone | | | 5-15mg | | | q3hrs | | | prn # | | | allergies: | | | cont with | | | loratadine. | | | # | | | constipatio | | | n prophy: | | | last bm was | | | 03/14/18.- | | | cont | | | miralax | | | daily - prn | | | senna s | | | bid # | | | Fertility: | | | per Dr. | | | Jorge's | | | note, | | | patient | | | reports | | | infertility | | | at | | | baseline | | | (tried for | | | 8 years), | | | thus no | | | preservatio | | | n strategy | | | indicated. | | | Currently | | | Mirena for | | | endometrios | | | is. Keera | | | Rhea Cage | | | is a 32 | | | y.o. 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 | | | Pathology: | | | synovial | | | sarcoma | | | with | | | extensive | | | acute | | | inflammatio | | | n, abscess, | | | and | | | necrosis | | | with | | | negative | | | margins. Pt | | | admitted | | | for post op | | | | | | chemotherap | | | y C2D1 | | | Ifos/Epirub | | | icin. # | | | high risk | | | synovial | | | sarcoma of | | | the left | | | foot: | | | Upfront | | | resection | | | d/t rapid | | | disease | | | progression | | | and | | | infection. | | | C1 c/b | | | delayed | | | nausea, | | | mucositis, | | | and | | | neutropenic | | | fever. Pt | | | tolerated | | | C2 without | | | complicatio | | | n- neulasta | | | scheduled | | | @ [facility] | | | [facility] for | | | 03/17 @ | | | 10am. | | | labs and | | | port care @ | | | [facility] | | | start | | | 03/21. Chem | | | otherapy: | | | C2D1 | | | 03/12/18Ifos | | | | | | 2500 mg/m^ | | | 2 x 2.6 | | | m^2 with | | | Mesna | | | 2200 mg in | | | NaCl 0.9% | | | for 2hrs | | | q20hrs x | | | 4 dosesEpi | | | rubicin | | | 30 mg/m2 x | | | x 2.6 | | | m^2 q20hrs | | | x | | | 4 dosesMes | | | na 2200 mg | | | for | | | 15minutes | | | to be given | | | 4hrs and | | | 8hrs after | | | the start | | | of | | | Ifosfamide | | | Supportive | | | care: | | | Dexamethaso | | | ne 20mg | | | daily x | | | 4 doses=>d | | | ecreased | | | down to 8mg | | | (03/14/18) | | | as dex | | | causing | | | exacerbatio | | | n of | | | anxiety, | | | jitteriness | | | /restlessne | | | ss. | | | Ondansetron | | | 24mg daily | | | x | | | 4 dosesOla | | | nzapine 5mg | | | qhs.=> | | | increased | | | to 10mg qhs | | | (03/14/18) | | | d/t | | | decreasing | | | dex from | | | 20mg down | | | to 8mg as | | | dex causing | | | | | | exacerbatio | | | n of | | | anxiety, | | | jitteriness | | | /restlessne | | | ss. | | | Lorazepam | | | 0.5mg prn | | | q24hrs, | | | prochlopara | | | zine 10 mg | | | PO/IV | | | q6hrs prn1L | | | NaCl 0.9% | | | bolus | | | follow by | | | MIVF | | | 125mL/hr. | | | # Delayed | | | | | | nausea: ag | | | gressive | | | supportive | | | care as | | | above. As | | | above | | | decreasing | | | dex down to | | | 8mg daily | | | from 20mg, | | | increasing | | | olanzapine | | | from 5 to | | | 10mg and | | | start | | | compazine | | | 10mg q8hrs. | | | Will | | | discharge | | | pt with | | | schedule | | | dex x4, | | | olanzapine | | | 10mg qhs | | | and | | | scheduled | | | compazine | | | 10mg q8hrs | | | for the | | | first 2 | | | days. # | | | Heartburn: | | | controlled | | | with | | | Zantac- | | | will cont | | | with Zantac | | | 150mg | | | bid=> | | | switched to | | | famotidine | | | 40mg daily | | | during | | | admission | | | as Zantac | | | is not on | | | formula. | | | # | | | Swelling in | | | RLE:has | | | not | | | improved | | | much since | | | dc [facility] | | | [facility] | | | week ago, | | | pt also | | | having some | | | pain. She | | | is at high | | | risk for | | | DVT. Will | | | get doppler | | | to r/o, | | | doppler | | | negative.- | | | cont | | | enoxaparin | | | 40mg bid | | | for prophy. | | | Using bid | | | d/t pt's | | | wt. - pt | | | declined | | | lasix. # | | | depression/ | | | Anxiety: | | | exacerbatio | | | n of | | | anxiety due | | | to high | | | dose dex. | | | Adjustments | | | to | | | medication | | | as above. | | | - cont | | | with home | | | dose | | | Citalopram | | | 40mg daily | | | - start | | | Olanzapine1 | | | 0mg qhs | | | adjunct to | | | citalopram | | | and for | | | CINV | | | prophy # | | | LLE Stump: | | | Per Dr. | | | Jorge there | | | is a risk | | | of wound | | | dehiscence | | | with | | | starting | | | chemo, but | | | the benefit | | | of | | | starting | | | chemo | | | outweighs | | | the risk. | | | Dr. Basurto | | | saw pt in | | | clinic | | | 03/12, she | | | removed a | | | few | | | stitches | | | but still | | | left some | | | in, Dr. | | | Doung | | | cleared pt | | | to have | | | chemo . | | | Dr. Doung | | | will see | | | pt back in | | | clinic | | | prior to | | | C3. Pt | | | c/o scant | | | dc after | | | showering | | | and is very | | | concern | | | about | | | infection. | | | We have | | | not been | | | able to | | | expressed | | | or | | | witnessed | | | any | | | purulent | | | discharge. | | | Currently | | | no s/sxs of | | | infection | | | based on | | | physical | | | exam, | | | however | | | anticipate | | | pt will | | | become | | | neutropenic | | | a few days | | | after | | | discharge. | | | She was | | | hospitalize | | | d for | | | neutropenic | | | fever | | | after C1, | | | has been | | | in/out of | | | hospital | | | reasonable | | | to start pt | | | on prophy | | | abx course | | | this time | | | with | | | clindamycin | | | to also | | | cover for | | | MRSA. # | | | stump | | | pain/phanto | | | m | | | pain: bett | | | er control. | | | Pt self | | | titrated | | | lyrica up | | | to 225mg a | | | few days | | | after dc | | | from | | | hospital | | | for C1 | | | chemo.- | | | cont with | | | lyrica | | | 225 mg bid | | | - | | | Oxycodone | | | 5-15mg | | | q3hrs | | | prn # | | | allergies: | | | cont with | | | loratadine. | | | # | | | constipatio | | | n prophy: | | | last bm was | | | 03/14/18.- | | | cont | | | miralax | | | daily - prn | | | senna s | | | bid # | | | Fertility: | | | per Dr. | | | Jorge's | | | note, | | | patient | | | reports | | | infertility | | | at | | | baseline | | | (tried for | | | 8 years), | | | thus no | | | preservatio | | | n strategy | | | indicated. | | | Currently | | | Mirena for | | | endometrios | | | is. Discha | | | rge | | | Medications | | | : Cage, | | | Keera | | | [facility] | | | Medication | | | | | | Instruction | | | s | | | [id number] | | | 2 Printed | | | on:03/15/18 | | | 1102 | | | Medication | | | Information | | | | | | | | | citalopram | | | 40 mg oral | | | tabletTake | | | 40 mg by | | | mouth once | | | daily. | | | | | | clindamycin | | | 300 mg | | | oral | | | capsuleTake | | | 1 capsule | | | by mouth | | | every six | | | hours for | | | 11 days. | | | Indications | | | : skin | | | infection | | | | | | dexamethaso | | | ne 4 mg | | | oral | | | tabletTake | | | 1 tablet by | | | mouth once | | | daily. | | | Indications | | | : | | | Prevention | | | of | | | Chemotherap | | | y-Induced | | | Nausea and | | | Vomiting | | | | | | hydroCHLORO | | | thiazide 25 | | | mg oral | | | tabletTake | | | 25 mg by | | | mouth once | | | daily. | | | | | | Lidocaine-D | | | iphenhyd-Al | | | -Mag-Sim | | | 200-25-400- | | | 40 mg/30 mL | | | mucous | | | membrane | | | mouthwashTa | | | ke 5 mL by | | | mouth four | | | times daily | | | as needed. | | | | | | lidocaine-p | | | rilocaine | | | (EMLA) | | | 2.5-2.5 % | | | topical | | | creamApply | | | to affected | | | area as | | | needed. | | | Apply a | | | thick layer | | | to intact | | | skin and | | | cover with | | | an | | | occlusive | | | dressing. | | | | | | loratadine | | | (CLARITIN) | | | 10 mg oral | | | tabletTake | | | 10 mg by | | | mouth once | | | daily. | | | | | | LORazepam | | | 0.5 mg oral | | | tabletTake | | | 1 tablet | | | by mouth | | | every six | | | hours as | | | needed for | | | anxiety | | | (1st line | | | nausea/vomi | | | ting). | | | | | | Miscellaneo | | | [facility] Medical | | | Supply | | | miscBedside | | | commode | | | for | | | nighttime | | | use | | | following | | | foot | | | amputation. | | | | | | nystatin | | | 100,000 | | | unit/gram | | | topical | | | powderApply | | | to | | | affected | | | area two | | | times | | | daily. | | | Apply to | | | candidal | | | lesions | | | until | | | lesions | | | have | | | healed. | | | Indications | | | : skin | | | infection, | | | redness in | | | pannus, | | | skin folds | | | | | | OLANZapine | | | 10 mg oral | | | tabletTake | | | 1 tablet by | | | mouth once | | | daily at | | | bedtime. | | | Indications | | | : Cancer | | | Chemotherap | | | y-Induced | | | Nausea and | | | Vomiting, | | | Depression | | | Treatment | | | Adjunct | | | | | | ondansetron | | | 8 mg oral | | | tabletTake | | | 1 tablet by | | | mouth | | | every | | | twelve | | | hours as | | | needed (2nd | | | line for | | | nausea/vomi | | | ting). | | | | | | oxyCODONE | | | (immediate | | | release) 5 | | | mg oral | | | tabletTake | | | 1 to 3 | | | tablets by | | | mouth every | | | three | | | hours as | | | needed for | | | moderate | | | pain. Wean | | | off soon | | | and do not | | | combine | | | with other | | | sedating | | | meds like | | | Clonazapam | | | | | | polyethylen | | | e glycol 17 | | | gram oral | | | powder in | | | packetMix 1 | | | packet and | | | take | | | orally once | | | daily. | | | Take this | | | medication | | | while you | | | are on | | | narcotic | | | pain | | | medication. | | | Hold for | | | loose stool | | | | | | Indications | | | : | | | constipatio | | | n | | | pregabalin | | | 225 mg oral | | | | | | capsuleTake | | | 1 capsule | | | by mouth | | | two times | | | daily. | | | Indications | | | : | | | Postoperati | | | ve Acute | | | Pain, | | | neuropathy, | | | phantom | | | pain | | | | | | prochlorper | | | azine 10 mg | | | oral | | | tabletTake | | | 1 tablet by | | | mouth | | | every six | | | hours as | | | needed | | | (Give as | | | first line | | | agent for | | | acute or | | | delayed | | | nausea/vomi | | | ting). Max | | | dose: 40 | | | mg/day | | | | | | ranitidine | | | 150 mg oral | | | tabletTake | | | 150 mg by | | | mouth once | | | daily at | | | bedtime. | | | | | | senna-docus | | | ate 8.6-50 | | | mg oral | | | tabletTake | | | 2 tablets | | | by mouth | | | two times | | | daily. Take | | | this | | | medication | | | while you | | | are on | | | narcotic | | | pain | | | medication. | | | Hold for | | | loose stool | | | | | | Indications | | | : | | | constipatio | | | n | | | Rationale | | | for | | | Medication | | | Changes:See | | | hospital | | | courseAller | | | gies:Allerg | | | ies | | | Allergen | | | Reactions | | | | | | | | | Chlorhexidi | | | ne Pruritus | | | | | | Demerol | | | [Meperidine | | | Hcl] | | | Pruritus | | | Morphine | | | Pruritus | | | Additional | | | Instruction | | | s:Condition | | | on | | | Discharge | | | Good Diet | | | Regular | | | Regular | | | diet- There | | | are no | | | restriction | | | s to your | | | diet. You | | | may eat or | | | drink | | | whatever | | | you prefer, | | | though | | | healthy | | | food | | | choices are | | | | | | recommended | | | . Activity | | | As | | | tolerated. | | | Other | | | Discharge | | | Orders and | | | Instruction | | | s Do not | | | drive while | | | taking | | | narcotic | | | pain | | | medications | | | . 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 | | | Persistent | | | nausea or | | | vomiting.SK | | | IN CARE: | | | Lubriderm | | | lotion or | | | Eucerin | | | Cream- | | | apply to | | | skin twice | | | a day as | | | needed to | | | treat dry | | | skinApply | | | Sunscreen | | | SPF 15 or | | | greater to | | | sun-exposed | | | skin | | | before | | | exposure to | | | direct | | | sunlight or | | | outside | | | activities. | | | ACTIVITY: | | | Walking | | | will be | | | your | | | primary | | | source of | | | exercise. | | | It is very | | | important | | | that you | | | walk at | | | least three | | | times a | | | day. These | | | can be | | | short walks | | | that you | | | can | | | gradually | | | increase | | | over time | | | as your | | | strength | | | improves. | | | The | | | majority of | | | time | | | should be | | | spent out | | | of bed. It | | | is ok to | | | take naps | | | if you are | | | tired, but | | | alternate | | | napping | | | with | | | activity.CO | | | NSTIPATION: | | | It is very | | | important | | | to avoid | | | constipatio | | | n and | | | straining | | | while | | | trying to | | | have a | | | bowel | | | movement. | | | There are | | | several | | | medications | | | you can | | | use to both | | | prevent | | | and relieve | | | | | | constipatio | | | n. You can | | | use stool | | | softeners | | | (Colace | | | a.k.a. | | | Docusate | | | Sodium) or | | | laxatives | | | (Senokot | | | -stool | | | softener + | | | laxative; | | | Miralax - | | | laxative | | | drink). | | | Please work | | | toward | | | having a | | | bowel | | | movement | | | every 1-2 | | | days. It is | | | also | | | important | | | to stay | | | hydrated as | | | this will | | | also help | | | your bowel | | | function.PA | | | IN:It is | | | important | | | to manage | | | your pain | | | so that you | | | can | | | increase | | | your | | | activity | | | and sleep. | | | You are | | | being sent | | | home with a | | | | | | prescriptio | | | n for | | | narcotic | | | pain | | | medication | | | - please | | | take as | | | prescribed. | | | Follow | | | Up:Future | | | Appointment | | | s | | | Provider | | | Department | | | Dept Phone | | | Center | | | 04/02/2018 | | | 2:30 PM Hem | | | [facility]arter | | | Nurse | | | Hematology/ | | | Medical | | | Oncology at | | | [facility] | | | [phone] | | | 4 [facility] | | | 04/02/2018 | | | 3:00 PM | | | [facility] | | | [facility] | | | Orthopaedic | | | s & | | | [facility] | | | ion | | | [phone] | | | [facility] | | | 04/02/2018 | | | 3:40 PM | | | Sandra E | | | [facility] | | | Hematology/ | | | Medical | | | [facility] at [facility] | | | [phone] | | | [facility] | | | Schedule | | | the | | | following | | | appointment | | | (s) when | | | you get | | | home [facility]. | | | Go on | | | 03/17/2018. | | | Why: | | | neulasta | | | and labs | | | appointment | | | @ 10am. | | | please make | | | | | | appointment | | | s for | | | weekly lab | | | draws while | | | you're | | | in.Contact | | | information | | | Phone #: | | | [phone] | | | 0 | | | Discharge | | | Physical | | | Exam:Last | | | 24 hour | | | min/maxTemp | | | : 36.7 C | | | (98.1 F) | | | Temp Min: | | | 36.3 C | | | (97.3 F) | | | Max: 36.7 | | | C (98.1 | | | F) Pulse: | | | 82 Pulse | | | Min: 82 | | | Max: 100 | | | Resp: 16 | | | Resp Min: | | | 16 Max: 16 | | | BP: 142/71 | | | BP Min: | | | 133/67 | | | Max: 142/71 | | | SpO2: 95 % | | | SpO2 Min: | | | 95 % Max: | | | 95 % Body | | | mass index | | | is 49.64 | | | kg/m . | | | General: | | | adult | | | female | | | patient in | | | NADNeuro: | | | AOx3, | | | Psych: | | | pleasant, | | | anxiousSkin | | | : No | | | rashesHEENT | | | : | | | oropharynx | | | mucous | | | membrane | | | moist | | | without | | | lesionsChes | | | t: Clear to | | | | | | ascultation | | | b/l; no | | | wheezing, | | | cracklesCV: | | | Regular | | | rhythm | | | rate, no | | | murmurAbd: | | | central | | | obesity, | | | normoactive | | | bowel | | | sounds, | | | soft/Nonten | | | mellisa/Nondist | | | ended , no | | | hepatosplen | | | omegaly, no | | | massesExt: | | | +RLE | | | edema. LLE | | | stump: | | | sutures | | | noted, | | | pink, no | | | drainage, | | | swelling, | | | odor or | | | pain to | | | touch | | | noted. 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 | | AGACNP,SALON SUPERVISOR | ([facility]) (Primary Dx) | +--------+ +---+ + + | 03/12/ | Hospital | | Nurse, Hem Starter | | | 2018 | Encounter | | | | +--------+ +---+ + + | 03/07/ | Telephone | | Sandra Patel MD | Care Coordination | | 2017 | | | | (ondina vogt) | +--------+ +---+ + + | 03/04/ | Telephone | | Work, Social | Social Work Notes | | 2017 | | | | | +--------+ +---+ + + 03/01/ | Intake | | | N/A | | 2017 | | | | | +--------+ +---+ + + 02/28/ | Telephone | | Sandra Patel MD | Laboratory Test | | 2017 | | | | Results Abnormal | +--------+ +---+ + + | 02/28/ | Telephone | | Lynda Basurto, | Incision AND | | 2017 | | | MD | drainage | +--------+ +---+ + + | 02/28/ | Telephone | | Sandra Patel MD | Symptom Management | | 2017 | | | | | +--------+ +---+ + + | 02/26/ | Telephone | | Ann Davis, | | | 2017 | | | PharmD | | +--------+ +---+ + 02/26/ | Telephone | | Sandra Patel MD | Symptom Management | | 2017 | | | | | +--------+ +---+ + 02/26/ | Documentati | | Sandra Patel MD | Post-discharge | | 2017 | on | | | follow-up (Neulasta | | | | | | and Labs - Cycle #2) | +--------+ +---+ + + | 02/24/ | Telephone | | Lynda Basurto, | Letter From | | 2017 | | | | Specialist | +--------+ +---+ + + | 02/24/ | Telephone | | Work, Social | Social Work Notes | | 2017 | | | | | +--------+ +---+ + + | 02/24/ | Telephone | | Sandra Patel MD | Needs Paperwork | | 2017 | | | | | +--------+ +---+ + + 02/24/ | Telephone | | Work, Social | Social Work Notes | | 2017 | | | | | +--------+ +---+ + + 02/24/ | Telephone | | Lynda Basurto, | Other (question | 2017 | | | | about stitches ); | | | | | | Removal of sutures | +--------+ +---+ + + | 02/23/ | Documentati | | Mignon Dan, | Medication Education | | 2017 | on | | PharmD | (Take home | | | | | | anti-emetics) | +--------+ +---+ + + | 02/22/ | Pharmacy | | | | 2017 | Visit | | | | +--------+ +---+ + + | 02/21/ | Pharmacy | | | | 2017 | Visit | | | | +--------+ +---+ + + | 02/20/ | Telephone | | Sandra Patel MD | Scheduling | 2017 | | | | | +--------+ +---+ + + | 02/20/ | Pharmacy | | | | 2017 | Visit | | | | +--------+ +---+ + + | 02/19/ | Hospital | | Leighann Yost MD | | | 2018 - | Encounter | | | | | | | | | | | 02/23/ | | | | | | 2018 | | | | | +--------+ +---+ + + +---+ + | | Discharge | | | Summaries | | | - Lilibeth, | | | Romeo Matthews MD | | | - | | | 02/23/2018 | | | 1:06 PM | | | PDT | | | Formatting | | | of this | | | note may be | | | different | | | from the | | | original.Or | | | [employer] | | | & [facility] | | | [facility] | | | Discharge | | | SummaryDisc | | | harging | | | Provider: | | | ROMEO Matthews | | | LILIBETH, | | | MDDischargi | | | ng | | | Attending | | | Physician: | | | Greg | | | Beth, | | | MDHospital | | | Stay: 4 | | | day(s)PCP: | | | Santo | | | Quaempts, | | | MDAdmission | | | Date: | | | 02/19/2018Di | | | scharge | | | Date: | | | 02/23/18Hosp | | | ital Stay: | | | 4 | | | day(s)Reaso | | | n for | | | Admission:H | | | igh Dose | | | Chemotherap | | | y | | | Principal | | | Final | | | Diagnosis:S | | | ynovial | | | SarcomaAddi | | | tional | | | Diagnoses:L | | | eft foot | | | phantom | | | painDepress | | | ion | | | anxietyProc | | | edures:NoeH | | | ospital | | | 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 | | | Per Dr. | | | Jorge there | | | is a risk | | | of wound | | | dehiscence | | | with | | | starting | | | chemo, but | | | the benefit | | | of | | | starting | | | chemo | | | outweighs | | | the risk. | | | Will cont | | | to monitor | | | wound | | | closely.Bas | | | luz maria echo | | | GLS: -18.4 | | | % | | | 3DLVEF:67.0 | | | %. pt's | | | tolerated | | | chemotherap | | | y with no | | | s/sxs of | | | encephalopa | | | thy, | | | hematuria | | | or n/v. | | | Ortho | | | evaluated | | | stitches | | | and will | | | keep them | | | in for | | | now neulas | | | ta | | | scheduled | | | 02/25 @ | | | 845am, labs | | | and port | | | care @ | | | [facility] | | | on 02/28/18, | | | pt should | | | make apt | | | when she is | | | in for | | | neulasta. | | | Sent | | | request to | | | purple to | | | arrange for | | | fu @ [facility] | | | for C2, | | | they will | | | contact | | | pt. Chemot | | | herapy: | | | C1D1 | | | 02/19/18Ifos | | | | | | 2500 mg/m2 | | | with Mesna | | | 2200 mg | | | in NaCl | | | 0.9% for | | | 2hrs q24hrs | | | x | | | 4 dosesEpi | | | rubicin | | | 80mg | | | (30 mg/m2) | | | q24hrs x | | | 4 dosesMes | | | na 2200 mg | | | for | | | 15minutes | | | to be given | | | 4hrs and | | | 8hrs after | | | the start | | | of | | | Ifosfamide | | | Supportive | | | care: | | | Dexamethaso | | | ne 20mg | | | daily x | | | 4 dosesOnd | | | ansetron | | | 24mg daily | | | x | | | 4 dosesOla | | | nzapine 5mg | | | qhs. Added | | | in for | | | CINV prophy | | | and as | | | adjunct to | | | celexa for | | | depression/ | | | anxiety, pt | | | having a | | | difficult | | | time | | | adjusting | | | to dx. | | | Lorazepam | | | 0.5mg prn | | | q24hrs, | | | prochlopara | | | zine 10 mg | | | PO/IV | | | q6hrs prn1L | | | NaCl 0.9% | | | bolus | | | follow by | | | MIVF | | | 125mL/hr. | | | # | | | Fertility: | | | per Dr. | | | Jorge's | | | note, | | | patient | | | reports | | | infertility | | | at | | | baseline | | | (tried for | | | 8 years), | | | thus no | | | preservatio | | | n strategy | | | indicated. | | | Currently | | | Mirena for | | | endometrios | | | is. # | | | depression/ | | | Anxiety: u | | | ncontrolled | | | . | | | Olanzapine | | | 5mg qhs. | | | Added in | | | for CINV | | | prophy and | | | as adjunct | | | to celexa | | | for | | | depression/ | | | anxiety, pt | | | having a | | | difficult | | | time | | | adjusting | | | to dx. | | | # LLE | | | Stump: Per | | | Dr. Patel | | | there is a | | | risk of | | | wound | | | dehiscence | | | with | | | starting | | | chemo, but | | | the benefit | | | of | | | starting | | | chemo | | | outweighs | | | the risk. | | | Will cont | | | to monitor | | | surgical | | | wound | | | closely. # | | | stump | | | pain/phanto | | | m pain:poor | | | control. | | | Pt just | | | started on | | | lyrica 02/17 | | | by Ortho | | | with plan | | | to titrate | | | up 150mg | | | bid in | | | 5-7days. | | | Dr. Patel | | | would like | | | pt | | | to judicio | | | us use of | | | oxycodone | | | while on | | | chemotherap | | | y, an | | | occasional | | | dose of | | | Tylenol or | | | naproxen | | | may be ok | | | during | | | chemotherap | | | y, but | | | should be | | | rare (due | | | to | | | antipyretic | | | and | | | anti-platel | | | et effects, | | | | | | respectivel | | | y.Her pain | | | is poor | | | control | | | Will | | | increase | | | lyrica to | | | 150mg bid | | | for better | | | pain | | | control. - | | | increased | | | lyrica from | | | 75mg to | | | 150mg bid | | | on 02/21- | | | Oxycodone | | | 5-15mg | | | q3hrs | | | prn # | | | allergies: | | | cont with | | | loratadine. | | | # | | | constipatio | | | n prophy: - | | | miralax | | | daily - prn | | | senna s | | | bid | | | F: PO/IV | | | F w/ | | | chemo | | | E: monit | | | or and | | | replace prn | | | | | | N: regul | | | ar diet | | | Ppx: proph | | | y | | | enoxaparin: | | | 40mg BID | | | due to pt's | | | wt. | | | encouraged | | | ambulation | | | tid. Pt | | | instructed | | | pt to | | | Discontinue | | | post op | | | aspirin at | | | time of | | | discharge | | | per Dr. | | | Jorge due | | | to | | | anticipated | | | | | | thrombocyto | | | penia.Disch | | | arge | | | Medications | | | : | | | Medication | | | List START | | | taking | | | these | | | medications | | | | | | dexamethaso | | | ne 4 mg | | | TabCommonly | | | known as: | | | | | | DECADRONTak | | | e 1 tablet | | | by mouth | | | once daily. | | | | | | Indications | | | : | | | Prevention | | | of | | | Chemotherap | | | y-Induced | | | Nausea and | | | VomitingNot | | | es to | | | patient: | | | To prevent | | | delayed | | | nausea post | | | | | | chemotherap | | | y. This | | | medication | | | can be | | | stimulating | | | so it is | | | best taken | | | in AM or | | | earlier in | | | the day to | | | prevent | | | insomnia. | | | lidocaine-p | | | rilocaine | | | 2.5-2.5 % | | | CreaCommonl | | | y known as: | | | EMLAApply | | | to | | | affected | | | area as | | | needed. | | | Apply a | | | thick layer | | | to intact | | | skin and | | | cover with | | | an | | | occlusive | | | dressing.No | | | mandy to | | | patient: | | | For port | | | access. | | | Apply as | | | directed | | | for port | | | access. | | | Please | | | contact | | | prescribing | | | physician | | | regarding | | | any | | | questions/c | | | oncerns or | | | further | | | dosing of | | | this | | | medication. | | | LORazepam | | | 0.5 mg | | | TabCommonly | | | known as: | | | ATIVANTake | | | 1 tablet | | | by mouth | | | every six | | | hours as | | | needed for | | | anxiety | | | (2nd line | | | for | | | nausea/vomi | | | ting).Notes | | | to | | | patient: | | | For | | | anxiety, | | | nausea | | | (2nd/3rd | | | choice) | | | and/or | | | sleep. | | | Sedating - | | | avoid | | | taking with | | | other | | | sedating | | | medication | | | due to | | | cumulative | | | effects. | | | Use | | | sparingly | | | (try to | | | avoid using | | | on a daily | | | basis) as | | | tolerance | | | can develop | | | quickly | | | and will | | | make the | | | medication | | | less | | | effective. | | | If you find | | | that you | | | need | | | frequent | | | dosing | | | please | | | discuss | | | with | | | prescribing | | | provider | | | and | | | consider | | | other | | | therapeutic | | | options. | | | OLANZapine | | | 5 mg | | | TabCommonly | | | known as: | | | | | | ZYPREXATake | | | 1 tablet | | | by mouth | | | once daily | | | at bedtime. | | | | | | Indications | | | : Cancer | | | Chemotherap | | | y-Induced | | | Nausea and | | | Vomiting, | | | Depression | | | Treatment | | | Adjunct, | | | anxiety and | | | | | | insomniaNot | | | es to | | | patient: | | | To prevent | | | delayed | | | nausea and | | | help with | | | sleep. Can | | | be sedating | | | so it | | | should be | | | taken at | | | bedtime. | | | Also may | | | help with | | | sleep and | | | anxiety. | | | ondansetron | | | 8 mg | | | TabCommonly | | | known as: | | | ZOFRANTake | | | 1 tablet | | | by mouth | | | every | | | twelve | | | hours as | | | needed (3rd | | | line for | | | nausea/vomi | | | ting).Notes | | | to | | | patient: | | | For nausea. | | | Can be | | | constipatin | | | g and may | | | cause | | | headache. | | | May need to | | | increase | | | bowel | | | regimen if | | | taking this | | | medication | | | regularly. | | | LEAST | | | SEDATING as | | | needed | | | nausea | | | medication* | | | * | | | prochlorper | | | azine 10 mg | | | | | | TabCommonly | | | known as: | | | | | | COMPAZINETa | | | ke 1 tablet | | | by mouth | | | every six | | | hours as | | | needed | | | (Give as | | | first line | | | agent for | | | acute or | | | delayed | | | nausea/vomi | | | ting). Max | | | dose: 40 | | | mg/dayNotes | | | to | | | patient: | | | 1st choice | | | for nausea. | | | May take | | | 0.5 to 1 | | | tab (5 to | | | 10 mg) per | | | dose. Can | | | be | | | sedating. | | | Try to | | | avoid | | | taking with | | | other | | | sedating | | | medication | | | due to | | | cumulative | | | sedative | | | effects. No | | | more than | | | 40 mg per | | | day. | | | CHANGE how | | | you take | | | these | | | medications | | | LYRICA | | | 150 mg | | | CapGeneric | | | drug: | | | pregabalinT | | | roberto 1 | | | capsule by | | | mouth two | | | times | | | daily. | | | Indications | | | : | | | Postoperati | | | ve Acute | | | Pain, | | | neuropathy, | | | phantom | | | painWhat | | | changed: | | | medication | | | strength | | | how much to | | | takeNotes | | | to patient: | | | For nerve | | | pain. Take | | | SCHEDULED. | | | Works | | | differently | | | than | | | opioid | | | (oxycodone- | | | type) | | | medications | | | . Over time | | | and | | | scheduled | | | dosing it | | | helps | | | lessen | | | nerve | | | pain.NEW | | | dose | | | oxyCODONE | | | (immediate | | | release) 5 | | | mg | | | TabCommonly | | | known as: | | | | | | ROXICODONET | | | roberto 1 to 3 | | | tablets by | | | mouth | | | every three | | | hours as | | | needed for | | | moderate | | | pain. Wean | | | off soon | | | and do not | | | combine | | | with other | | | sedating | | | meds like | | | ClonazapamW | | | hat | | | changed: | | | additional | | | instruction | | | s CONTINUE | | | taking | | | these | | | medications | | | | | | citalopram | | | 40 mg | | | TabCommonly | | | known as: | | | CELEXATake | | | 40 mg by | | | mouth once | | | daily.Notes | | | to | | | patient: | | | For | | | mood/anxiet | | | y. Take as | | | prescribed | | | previously. | | | Please | | | contact | | | prescribing | | | provider | | | regarding | | | questions | | | concerning | | | this | | | medication. | | | CLARITIN | | | 10 mg | | | TabGeneric | | | drug: | | | loratadineT | | | roberto 10 mg | | | by mouth | | | once | | | daily.Notes | | | to | | | patient: | | | For pain | | | related to | | | growth | | | factor | | | administrat | | | ion as well | | | as | | | seasonal | | | allergies. | | | Available | | | over-the-co | | | unter. | | | Regarding | | | pain | | | related to | | | growth | | | factor | | | administrat | | | ion - start | | | taking ONE | | | day BEFORE | | | AND | | | continue | | | taking | | | THREE days | | | AFTER | | | finishing | | | growth | | | factor | | | medication. | | | | | | hydroCHLORO | | | thiazide 25 | | | mg | | | TabCommonly | | | known as: | | | | | | HYDRODIURIL | | | Take 25 mg | | | by mouth | | | once | | | daily.Notes | | | to | | | patient: | | | For blood | | | pressure. | | | Hold for | | | SBP less | | | than 100 or | | | DBP less | | | than 60. | | | Contact | | | prescribing | | | provider | | | for further | | | guidance | | | if BP | | | continue to | | | be low | | | regarding | | | any dosage | | | modificatio | | | ns. | | | nystatin | | | 100,000 | | | unit/gram | | | PowdCommonl | | | y known as: | | | | | | MYCOSTATINA | | | pply to | | | affected | | | area two | | | times | | | daily. | | | Apply to | | | candidal | | | lesions | | | until | | | lesions | | | have | | | healed. | | | Indications | | | : skin | | | infection, | | | redness in | | | pannus, | | | skin | | | foldsNotes | | | to patient: | | | Topical | | | agent. | | | Apply as | | | previously | | | prescribed. | | | Please | | | contact | | | prescribing | | | physician | | | regarding | | | any | | | questions/c | | | oncerns or | | | further | | | dosing of | | | this | | | medication. | | | | | | polyethylen | | | e glycol 17 | | | gram | | | PwpkCommonl | | | y known as: | | | | | | MIRALAXMix | | | 1 packet | | | and take | | | orally once | | | daily. | | | Take this | | | medication | | | while you | | | are on | | | narcotic | | | pain | | | medication. | | | Hold for | | | loose stool | | | | | | Indications | | | : | | | constipatio | | | nNotes to | | | patient: | | | For | | | constipatio | | | n. Adjust | | | dose to | | | effect. May | | | increase | | | to twice or | | | three | | | times daily | | | as needed | | | to help | | | facilitate | | | movement. | | | Best if | | | mixed in | | | chilled | | | liquid. | | | Over-the-co | | | unter. | | | Alternative | | | ly consider | | | | | | over-the-co | | | unter | | | sennosides | | | (Senna) or | | | bisacodyl | | | tablets by | | | mouth to | | | help | | | facilitate | | | BM. Soft, | | | daily BM | | | desired. | | | senna-docus | | | ate 8.6-50 | | | mg | | | TabCommonly | | | known as: | | | SENOKOT | | | STake 2 | | | tablets by | | | mouth two | | | times | | | daily. Take | | | this | | | medication | | | while you | | | are on | | | narcotic | | | pain | | | medication. | | | Hold for | | | loose stool | | | | | | Indications | | | : | | | constipatio | | | nNotes to | | | patient: | | | For | | | constipatio | | | n. Adjust | | | dose to | | | effect. May | | | increase | | | up to 8 | | | tablets per | | | day (4 in | | | AM/4 in | | | PM). Soft, | | | daily BM | | | desired. | | | Over-the-co | | | unter. Also | | | consider | | | over-the-co | | | unter | | | bisacodyl | | | tablets | | | and/or | | | polyethylen | | | e glycol | | | (Miralax) | | | additionall | | | y to help | | | facilitate | | | BM. Soft, | | | daily BM | | | desired. | | | STOP taking | | | these | | | medications | | | | | | acetaminoph | | | en 500 mg | | | TabCommonly | | | known as: | | | TYLENOL | | | aspirin EC | | | 325 mg Tbec | | | clonazePAM | | | 1 mg | | | TabCommonly | | | known as: | | | KLONOPIN | | | gabapentin | | | 300 mg | | | CapCommonly | | | known as: | | | NEURONTIN | | | naproxen | | | 500 mg | | | TabCommonly | | | known as: | | | NAPROSYN | | | phentermine | | | 37.5 mg | | | Tab | | | Rationale | | | for | | | Medication | | | Changes:Non | | | eAllergies: | | | Allergies | | | Allergen | | | Reactions | | | | | | Demerol | | | [Meperidine | | | Hcl] | | | Pruritus | | | Morphine | | | Pruritus | | | Code | | | Status: | | | FullPOLST | | | completed: | | | noAdditiona | | | l | | | Instruction | | | s:Condition | | | on | | | Discharge | | | Good Diet | | | Regular | | | Regular | | | diet- There | | | are no | | | restriction | | | s to your | | | diet. You | | | may eat or | | | drink | | | whatever | | | you prefer, | | | though | | | healthy | | | food | | | choices are | | | | | | recommended | | | . Activity | | | No activity | | | | | | restriction | | | s Other | | | Discharge | | | Orders and | | | Instruction | | | s Do not | | | drive while | | | taking | | | narcotic | | | pain | | | medications | | | . 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 | | | Persistent | | | nausea or | | | vomiting.SK | | | IN CARE: | | | Lubriderm | | | lotion or | | | Eucerin | | | Cream- | | | apply to | | | skin twice | | | a day as | | | needed to | | | treat dry | | | skinApply | | | Sunscreen | | | SPF 15 or | | | greater to | | | sun-exposed | | | skin | | | before | | | exposure to | | | direct | | | sunlight or | | | outside | | | activities. | | | ACTIVITY: | | | Walking | | | will be | | | your | | | primary | | | source of | | | exercise. | | | It is very | | | important | | | that you | | | walk at | | | least three | | | times a | | | day. These | | | can be | | | short walks | | | that you | | | can | | | gradually | | | increase | | | over time | | | as your | | | strength | | | improves. | | | The | | | majority of | | | time | | | should be | | | spent out | | | of bed. It | | | is ok to | | | take naps | | | if you are | | | tired, but | | | alternate | | | napping | | | with | | | activity.CO | | | NSTIPATION: | | | It is very | | | important | | | to avoid | | | constipatio | | | n and | | | straining | | | while | | | trying to | | | have a | | | bowel | | | movement. | | | There are | | | several | | | medications | | | you can | | | use to both | | | prevent | | | and relieve | | | | | | constipatio | | | n. You can | | | use stool | | | softeners | | | (Colace | | | a.k.a. | | | Docusate | | | Sodium) or | | | laxatives | | | (Senokot | | | -stool | | | softener + | | | laxative; | | | Miralax - | | | laxative | | | drink). | | | Please work | | | toward | | | having a | | | bowel | | | movement | | | every 1-2 | | | days. It is | | | also | | | important | | | to stay | | | hydrated as | | | this will | | | also help | | | your bowel | | | function.PA | | | IN:It is | | | important | | | to manage | | | your pain | | | so that you | | | can | | | increase | | | your | | | activity | | | and sleep. | | | You are | | | being sent | | | home with a | | | | | | prescriptio | | | n for | | | narcotic | | | pain | | | medication | | | - please | | | take as | | | prescribed. | | | Follow | | | Up:Future | | | Appointment | | | s | | | Provider | | | Department | | | Dept Phone | | | Center | | | 03/12/2018 | | | 8:30 AM HEM | | | NURSE FLEX | | | | | | Hematology/ | | | Medical | | | Oncology at | | | [facility] | | | [phone] | | | 4 HemOnc | | | 03/12/2018 | | | 9:30 AM | | | Allean C | | | Jagdeep | | | Hematology/ | | | Medical | | | [facility] at [facility] | | | [phone] | | | 4 HemOnc | | | Discharge | | | Physical | | | Exam:Last | | | 24 hour | | | min/maxTemp | | | : 36.6 C | | | (97.9 F) | | | Temp Min: | | | 36.6 C | | | (97.9 F) | | | Max: 36.6 | | | C (97.9 | | | F) Pulse: | | | 72 Pulse | | | Min: 72 | | | Max: 72 | | | Resp: 18 | | | Resp Min: | | | 18 Max: 18 | | | BP: 130/83 | | | BP Min: | | | 130/83 | | | Max: 130/83 | | | SpO2: 99 % | | | SpO2 Min: | | | 99 % Max: | | | 99 % Body | | | mass index | | | is 46.56 | | | kg/m . | | | General: | | | adult | | | female | | | patient in | | | NADNeuro: | | | AOx3, | | | Psych: | | | pleasant, | | | affect | | | appropiate | | | Skin: No | | | rashesHEENT | | | :oropharynx | | | mucous | | | membrane | | | moist | | | without | | | lesionsChes | | | t: Clear to | | | | | | ascultation | | | b/l; no | | | wheezing, | | | cracklesCV: | | | Regular | | | rhythm | | | rate, no | | | murmurAbd: | | | | | | Normoactive | | | bowel | | | sounds, | | | soft/Nonten | | | mellisa/Nondist | | | ended , no | | | hepatosplen | | | omegaly, no | | | massesExt: | | | no | | | edemaLines: | | | PAC | | | accessed - | | | NT, no | | | erythemaADA | | | M S KITTAI, | | | MDHem/Onc | | | Fellow | | | [id number] | +---+ + +--------+ +---+ + + | 02/19/ | Office | | Sandra Patel MD | 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 | | | ([facility]) (Primary Dx) | +--------+ +---+ + + | 02/19/ | Office | | Macie Coats, | 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 | | | ([facility]) (Primary Dx); | | | | | | 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 | | | | | | left lower extremity | | | | | | (HCC) | +--------+ +---+ + + | 02/19/ | Hospital | | Darwin Juan Starter | | | 2017 | Encounter | | | | +--------+ +---+ + + | 02/19/ | Documentati | | Work, Social | Social Work Notes | | 2017 | on | | | | +--------+ +---+ + 02/19/ | Telephone | | Sandra Patel MD | Treatment Planning | | 2017 | | | | (neulasta) | +--------+ +---+ + + 02/17/ | Pharmacy | | | | | 2017 | Visit | | | | +--------+ +---+ + 02/17/ | Telephone | | Lynda Basurto, | Other (nerve pain) | | 2018 | | | MD | | +--------+ +---+ + + | 02/13/ | Telephone | | Work, Social | Social Work Notes | | 2017 | | | | | +--------+ +---+ + + | 02/13/ | Documentati | | Sandra Patel MD | Post-discharge | | 2017 | on | | | follow-up (Neulasta | | | | | | and labs) | +--------+ +---+ + + | 02/12/ | Telephone | | Sandra Patel MD | Treatment Planning | | 2017 | | | | | +--------+ +---+ + + | 02/11/ | Pharmacy | | | | | 2018 | Visit | | | | +--------+ +---+ + + | 02/07/ | Procedure | | | | | 2018 | Pass | | | | +--------+ +---+ + + | 02/06/ | Hospital | | Lynda Basurto, | | | 2018 - | Encounter | | MD | | | | | | | | | 02/11/ | | | | | | 2018 | | | | | +--------+ +---+ + + +---+ + | | Discharge | | | Summaries | | | - Jermaine, | | | Pierre Martin DO | | | - | | | 02/11/2018 | | | 12:26 PM | | | PDT | | | Formatting | | | of this | | | note may be | | | different | | | from the | | | original.OR | | | [facility] | | | & [facility] | | | [facility] | | | EPARTMENT | | | OF | | | ORTHOPAEDIC | | | S & | | | REHABILITAT | | | IONINPATIEN | | | T HOSPITAL | | | DISCHARGE | | | SUMMARY& | | | INTERDISCIP | | | LINARY | | | INSTRUCTION | | | SPatient: | | | Keera | | | Rhea | | | GrayMRN: | | | [id number] | | | : | | | [id number] | | | dmission | | | Date: | | | 02/06/2018Dis | | | charge | | | Date: | | | 02/11/2018 | | | Attending | | | Physician: | | | Lynda | | | Doung, | | | MDPCP: Santo | | | Quaempts, | | | MDService: | | | [facility] | | | Orthopaedic | | | s & | | | Rehabilitat | | | ionDiagnose | | | s Principal | | | Final | | | Diagnosis: | | | Synovial | | | sarcoma, | | | left | | | footProcedu | | | res 02/06/18 | | | Left | | | below-knee | | | amputationB | | | rief | | | Hospital | | | Course | | | Keera Cage | | | was | | | admitted | | | for the | | | procedure(s | | | ) described | | | above due | | | to a left | | | foot | | | synovial | | | sarcoma. | | | The | | | inpatient | | | stay | | | related to | | | this | | | procedure(s | | | ) took an | | | uncomplicat | | | ed | | | perioperati | | | ve course | | | and the | | | patient was | | | followed | | | closely by | | | the | | | attending | | | providers, | | | resident | | | providers, | | | and | | | medical/princess | | | sing staff. | | | Post | | | operatively | | | , the | | | patient was | | | admitted | | | to the | | | hospital | | | for | | | convalescen | | | t care. | | | Pain | | | control was | | | managed | | | with a | | | peripheral | | | nerve block | | | and iv/po | | | pain | | | medication | | | as needed. | | | The | | | Patient was | | | given | | | 24hrs of IV | | | | | | antibiotics | | | | | | post-operat | | | ively. For | | | DVT | | | prophylaxis | | | the | | | patient was | | | started on | | | aspirin | | | and SCDs | | | and ABHILASH | | | hose were | | | also used. | | | The | | | patient | | | made | | | appropriate | | | gains | | | toward | | | activity | | | and | | | functional | | | goals while | | | an | | | inpatient, | | | working | | | daily with | | | physical | | | therapy. | | | While on | | | the | | | hospital | | | floor, the | | | patient | | | tolerated | | | oral intake | | | sufficient | | | to | | | maintain | | | nutrition | | | and | | | hydration. | | | The | | | surgical | | | wound | | | remained | | | clean, dry, | | | and intact | | | without | | | signs | | | concerning | | | for | | | infection. | | | The | | | patient was | | | felt | | | appropriate | | | for | | | discharge | | | to home, | | | and the | | | patient | | | and/or | | | family | | | members | | | agree with | | | this course | | | of action. | | | Diet | | | Regular | | | Regular | | | diet- There | | | are no | | | restriction | | | s to your | | | diet. You | | | may eat or | | | drink | | | whatever | | | you prefer, | | | though | | | healthy | | | food | | | choices are | | | | | | recommended | | | . Wound | | | Care -If | | | you have | | | sutures or | | | eleonora, do | | | not get | | | your wound | | | wet for 3-5 | | | days after | | | your | | | operation. | | | Sponge bath | | | or cover | | | the | | | incision | | | with a | | | waterproof | | | bandage. | | | Keep your | | | incision | | | covered | | | with a | | | dressing | | | until there | | | is no | | | discharge | | | on | | | bandage.- | | | If you have | | | | | | Steri-Strip | | | s (paper | | | tape) over | | | your | | | incision, | | | keep the | | | incision | | | covered | | | until there | | | is no | | | discharge | | | on bandage. | | | Do not | | | remove | | | Steri-Strip | | | s, they | | | will fall | | | off on | | | their own. | | | Trim edges | | | of the | | | Steri-Strip | | | s if they | | | start to | | | peel up. Do | | | not get | | | your wound | | | wet for 5-7 | | | days after | | | your | | | operation.- | | | Once wound | | | is closed | | | (no | | | drainage), | | | you may | | | shower. Let | | | water run | | | over wound. | | | Pat dry. | | | Do not | | | scrub or | | | soak wound | | | in water.- | | | Avoid using | | | lotions, | | | powders, | | | oils, or | | | ointments | | | on your | | | incision.- | | | DO NOT let | | | anyone | | | start you | | | on | | | antibiotics | | | if they | | | suspect | | | your wound | | | is | | | infected. | | | Call [facility] | | | Orthopedics | | | first at | | | [phone] | | | 0. Activity | | | Non-weight | | | bearing on | | | left leg. | | | Restriction | | | s: no range | | | of motion | | | restriction | | | s. | | | Encourage | | | to perform | | | extension | | | exercises | | | on left | | | leg. OK to | | | use knee | | | scooterCond | | | ition on | | | Discharge | | | Stable | | | Follow-Up | | | Appointment | | | s | | | ORTHOPEDICS | | | OUTPATIENT | | | CLINIC: | | | 02/19/2018 | | | 2:20 PM | | | [facility] | | | Doung [facility] | | | Orthopaedic | | | s & | | | Rehabilitat | | | ion | | | [phone] | | | [address] | | | PCP: As | | | needed for | | | any medical | | | concerns | | | not related | | | to your | | | surgery. | | | Medication | | | List START | | | taking | | | these | | | medications | | | | | | acetaminoph | | | en 500 mg | | | TabCommonly | | | known as: | | | | | | TYLENOLTake | | | 2 tablets | | | by mouth | | | every six | | | hours as | | | needed. Use | | | this | | | medication | | | to help | | | wean off | | | your | | | stronger | | | opiate | | | medication. | | | DO NOT | | | exceed 4000 | | | mg in a 24 | | | hr period. | | | | | | Indications | | | : Pain | | | aspirin EC | | | 325 mg | | | TbecTake 1 | | | tablet by | | | mouth once | | | daily for | | | 21 days. | | | Indications | | | : Post op | | | VTE ppx | | | gabapentin | | | 300 mg | | | CapCommonly | | | known as: | | | | | | NEURONTINTa | | | ke 3 | | | capsules by | | | mouth | | | three times | | | daily. | | | Indications | | | : | | | Postoperati | | | ve Acute | | | Pain | | | hydrocortis | | | one 1 % | | | CreaApply | | | to affected | | | area twice | | | daily as | | | needed | | | (multimodal | | | control of | | | itching). | | | Apply a | | | thin film | | | to clean, | | | dry skin | | | and rub in | | | gently. | | | Indications | | | : Pruritus | | | of Skin | | | polyethylen | | | e glycol 17 | | | gram | | | PwpkCommonl | | | y known as: | | | | | | MIRALAXMix | | | 1 packet | | | and take | | | orally once | | | daily. | | | Take this | | | medication | | | while you | | | are on | | | narcotic | | | pain | | | medication. | | | Hold for | | | loose stool | | | | | | Indications | | | : | | | constipatio | | | n | | | senna-docus | | | ate 8.6-50 | | | mg | | | TabCommonly | | | known as: | | | SENOKOT | | | STake 2 | | | tablets by | | | mouth two | | | times | | | daily. Take | | | this | | | medication | | | while you | | | are on | | | narcotic | | | pain | | | medication. | | | Hold for | | | loose stool | | | | | | Indications | | | : | | | constipatio | | | n CHANGE | | | how you | | | take these | | | medications | | | oxyCODONE | | | (immediate | | | release) 5 | | | mg | | | TabCommonly | | | known as: | | | | | | ROXICODONET | | | roberto 1-3 | | | tablets by | | | mouth every | | | three | | | hours as | | | needed for | | | moderate | | | pain. Wean | | | off soon | | | and do not | | | combine | | | with other | | | sedating | | | meds like | | | Clonazapam | | | Indications | | | : PainWhat | | | changed: | | | how much to | | | take | | | when to | | | take this | | | reasons to | | | take | | | this | | | additional | | | instruction | | | s CONTINUE | | | taking | | | these | | | medications | | | | | | citalopram | | | 40 mg | | | TabCommonly | | | known as: | | | CELEXATake | | | 40 mg by | | | mouth once | | | daily. | | | CLARITIN 10 | | | mg | | | TabGeneric | | | drug: | | | loratadineT | | | roberto 10 mg | | | by mouth | | | once daily. | | | CLONAZEPAM | | | ORALTake | | | by mouth | | | three times | | | daily. | | | hydroCHLORO | | | thiazide 25 | | | mg | | | TabCommonly | | | known as: | | | | | | HYDRODIURIL | | | Take 25 mg | | | by mouth | | | once daily. | | | | | | phentermine | | | 37.5 mg | | | CapTake | | | 37.5 mg by | | | mouth once | | | daily. | | | Administer | | | before | | | breakfast. | | | STOP | | | taking | | | these | | | medications | | | | | | HYDROcodone | | | -acetaminop | | | hen 10-325 | | | mg | | | TabCommonly | | | known as: | | | NORCO | | | naproxen | | | 500 mg | | | TabCommonly | | | known as: | | | NAPROSYN | | | Deep Vein | | | Thrombosis | | | (Leg Blood | | | Clot) | | | Prevention | | | DVT | | | prophylaxis | | | : You are | | | at | | | increased | | | risk of | | | forming a | | | blood clot | | | following | | | your | | | surgery.- | | | We have | | | recommended | | | that you | | | take | | | Aspirin for | | | 3 weeks | | | following | | | your | | | surgery to | | | decrease | | | this risk.- | | | See | | | discharge | | | prescriptio | | | ns for | | | administrat | | | ion | | | instruction | | | s.- Call | | | Orthopedic | | | Clinic at | | | [phone] | | | 0 if any | | | persistent, | | | localized | | | swelling | | | that does | | | not improve | | | with time | | | or | | | elevation | | | or if you | | | have any | | | persistent | | | calf pain, | | | shortness | | | of breath | | | or chest | | | pain.Contac | | | t Your | | | Physician | | | When to | | | Call: 1. | | | Difficulty | | | breathing, | | | chest pain | | | or unusual | | | shortness | | | of breath; | | | 2. | | | Excessive | | | bleeding, | | | drainage, | | | redness, | | | swelling at | | | the | | | operative | | | site (if | | | the wound | | | appears to | | | be worse | | | instead of | | | better each | | | day); 3. | | | Fevers, | | | chills, | | | increased | | | pain that | | | is not | | | relieved by | | | pain | | | medications | | | ; 4. | | | Persistent | | | nausea or | | | vomiting; | | | 5. Other | | | specific | | | concerns; | | | Please | | | call:- | | | [phone] | | | 00 during | | | business | | | hours | | | (8:00am - | | | 4:30pm); - | | | [phone] | | | 11 if after | | | hours and | | | ask for the | | | | | | orthopaedic | | | surgery | | | resident on | | | | | | call.Additi | | | onal | | | Post-Op | | | Instruction | | | s / What to | | | Expect - | | | To prevent | | | constipatio | | | n you have | | | been | | | advised to | | | purchase | | | over the | | | counter | | | medications | | | that will | | | help you | | | have a | | | bowel | | | movement. | | | These | | | medications | | | include | | | senna and | | | miralax. | | | Take these | | | medications | | | together | | | until you | | | have a | | | bowel | | | movement. | | | Once you | | | reach your | | | goal, you | | | can reduce | | | or stop | | | taking one | | | or both | | | medications | | | . If you | | | have loose | | | or | | | excessive | | | stools stop | | | taking the | | | | | | medication. | | | Also keep | | | in mind | | | that eating | | | a well | | | balanced | | | diet with | | | plenty of | | | fruits and | | | vegetables; | | | proper | | | hydration; | | | and walking | | | can also | | | help | | | encourage | | | bowel | | | movements. | | | -Apply ice | | | over the | | | surgical | | | site for 20 | | | minutes at | | | a time as | | | needed for | | | pain.-Avoid | | | alcohol | | | and smoking | | | during the | | | healing | | | process.-Yo | | | u may | | | experience | | | numbness | | | that is | | | usually | | | temporary.- | | | There will | | | be bruising | | | and | | | swelling | | | that should | | | improve in | | | the first | | | 2 weeks.-To | | | reduce | | | likelihood | | | of falling | | | at home, | | | remove | | | throw rugs, | | | loose | | | wires or | | | other | | | objects | | | from floor | | | and leave | | | some lights | | | on at | | | night.- | | | Elevate | | | your | | | extremity | | | whenever | | | possible to | | | improve | | | pain and | | | swelling.Pa | | | in | | | Management | | | - You are | | | advised to | | | not drive, | | | operate | | | heavy | | | equipment, | | | or consume | | | alcohol | | | while on | | | prescriptio | | | n narcotic | | | pain | | | medication. | | | - Take a | | | stool | | | softener | | | while | | | taking | | | narcotic | | | pain | | | medication | | | in order to | | | prevent | | | constipatio | | | n.- If you | | | are running | | | out of | | | pain | | | medication | | | and feel | | | that you | | | will need | | | more, call | | | [phone] | | | 0 during | | | business | | | hours in | | | order to | | | get a new | | | prescriptio | | | n. Please | | | allow 48 | | | hours for | | | refills to | | | be | | | processed.- | | | Schedule | | | II | | | narcotics | | | can NOT be | | | called in | | | to a | | | pharmacy. | | | Please | | | arrange for | | | someone to | | | chicken picker | | | your | | | prescriptio | | | n or allow | | | additional | | | time for | | | our clinic | | | to mail you | | | requested | | | refill.- | | | On-call | | | (after | | | hours) MDs | | | are not | | | permitted | | | to | | | prescribe | | | narcotic | | | pain | | | medications | | | .- | | | Prescriptio | | | ns will not | | | be | | | available | | | through our | | | office on | | | weekends or | | | holidays.- | | | Don't take | | | | | | Non-steroid | | | al | | | anti-inflam | | | matory | | | drugs (for | | | example: | | | Ibuprofen/A | | | dvil/Aleve) | | | until | | | approved by | | | your | | | orthopedic | | | provider.Vi | | | darrius Signs | | | on | | | Discharge: | | | Ht 1.727 m | | | (5' 8"), Wt | | | 139.7 kg | | | (308 lb), | | | BP 114/77, | | | Pulse 69, | | | Temperature | | | 36.6 C | | | (97.9 F), | | | RR 16, | | | SpO2 100%, | | | BMI 46.83 | | | kg/(m^2). | | | Condition | | | on | | | Discharge: | | | ImprovedDis | | | charging | | | Patient To: | | | Home Date | | | and Time | | | of | | | Discharge | | | Summary | | | Completion: | | | 02/11/2018, | | | 12:26 PM | | | Discharging | | | Provider: | | | Pierre F | | | Jermaine, | | | DODischargi | | | ng | | | Attending: | | | Lynda | | | MD Sb | | | Thank you | | | for the | | | opportunity | | | to take | | | care of | | | Keera | | | Rhea Cage | | | during | | | this | | | inpatient | | | stay, it | | | has been | | | our | | | pleasure.Er | | | ic Jermaine, | | | DOOrthopedi | | | c Surgery | | | ResidentPag | | | er | | | [phone] | | | n Health & | | | Science | | | UniversityD | | | epartment | | | of | | | Orthopaedic | | | s & | | | Rehabilitat | | | [phone] | | | [address] | | | [place] | | | RoadMail | | | Code: | | | [id number] | | | d [place] | | | [phone] | | | [phone] | | | | +---+ + +--------+ +---+ + + | 02/06/ | Pharmacy | | | | | 2017 | Visit | | | | +--------+ +---+ + + | 02/06/ | Anesthesia | | Jeremyfeliz Fabio | | | 2018 | Event | | M, MD | | +--------+ +---+ + + | 02/06/ | Procedure | | | | | 2018 | Pass | | | | +--------+ +---+ + + | 02/06/ | Surgery | | Lynda Basurto, | LEFT BELOW KNEE | | 2017 | | | MD | AMPUTATION | +--------+ +---+ + + | 02/05/ | Lab | | | Synovial sarcoma | | 2018 | | | | (HCC) | +--------+ +---+ + + | 02/05/ | Office | | Lynda Basurto, | 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 | | MD | ([facility]) (Primary Dx) | +--------+ +---+ + + | 02/05/ | 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 Apprentice | | Fabio Blackmon | Preop examination | | 2017 | | | MD Sue | (Primary Dx) | +--------+ +---+ + + | 02/05/ | Pharmacy | | | | 2017 | Visit | | | | +--------+ +---+ + + | 02/05/ | Pharmacy | | | | | 2017 | Visit | | | | +--------+ +---+ + + | 02/05/ | Telephone | | Sandra Patel MD | Care Coordination | | 2017 | | | | | +--------+ +---+ + + | 02/04/ | MyChart | | Lynda Basurto, | RE: Biopsy site | | 2018 | Encounter | | | irritation | +--------+ +---+ + + | 02/04/ | Telephone | | Sandra Patel MD | Symptom Management | | 2017 | | | | | +--------+ +---+ + + | 02/03/ | Telephone | | Work, Social | Social Work Notes | | 2017 | | | | | +--------+ +---+ + + | 02/03/ | Telephone | | Work, Social | Social Work Notes | | 2017 | | | | | +--------+ +---+ + + 01/31/ | PreAdmit | | John Restrepo MD | Pre-Admission | | 2017 | Orders | | | | +--------+ +---+ + + 01/31/ | 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 Apprentice | | Sandra Patel MD | Synovial sarcoma | | 2017 | | | | ([facility]) (Primary Dx) | +--------+ +---+ + + | 01/31/ | Telephone | | Sandra Patel MD | Scheduling (ECHO) | | 2017 | | | | | +--------+ +---+ + + | 01/30/ | Telephone | | Work, Social | Social Work Notes | | 2017 | | | | | +--------+ +---+ + + | 01/30/ | Telephone | | Work, Social | Social Work Notes | | 2017 | | | | | +--------+ +---+ + + | 01/30/ | MyChart | | Lynda Basurto, | Picture of biopsy | | 2017 | Encounter | | | site | +--------+ +---+ + + | 01/30/ | MyChart | | Lynda Basurto, | RE: Biopsy site | | 2017 | Encounter | | MD | irritation | +--------+ +---+ + + | 01/30/ | Telephone | | Lynda Basurto, | Other (incision | | 2017 | | | MD | issue) | +--------+ +---+ + + | 01/30/ | MyChart | | Lynda Basurto, | RE: Pathology Report | | 2017 | Encounter | | | | +--------+ +---+ + + | 01/29/ | Documentati | | Sandra Patel MD | Post-discharge | | 2017 | on | | | follow-up (Neulasta | | | | | | and labs) | +--------+ +---+ + + 01/29/ | Telephone | | Torres | Medical nutrition | | 2017 | | | NAKIA Carty | therapy (Nutrition | | | | | | Referral) | +--------+ +---+ + + | 01/28/ | Telephone | | Work, Social | Social Work Notes | | 2018 | | | | | +--------+ +---+ + + | 01/24/ | Telephone | | Work, Social | Social Work Notes | | 2017 | | | | | +--------+ +---+ + + 01/23/ | Lab | | | Synovial sarcoma | | 2017 | | | | ([facility]) | +--------+ +---+ + 01/23/ | Office | | Sandra Patel MD | 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 | | | ([facility]) (Primary Dx) | +--------+ +---+ + 01/23/ | Documentati | | Sandra Patel MD | Patient education | | 2017 | on | | | | +--------+ +---+ + 01/23/ | Documentati | | Work, Social | Social Work Notes | | 2018 | on | | | | +--------+ +---+ + + | 01/22/ | Hospital | | Lynda Basurto, | | | 2017 | Encounter | | MD | | +--------+ +---+ + + | 01/22/ | Office | | Lynda Basurto, | 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 | | | | | | left lower extremity | | | | | | (HCC) (Primary Dx) | +--------+ +---+ + + | 01/22/ | Lab | | Tommy Kaur, | | 2017 | Requisition | | MD | | +--------+ +---+ + + | 01/20/ | Lab | | Lynda Basurto, | | 2017 | Requisition | | MD | | +--------+ +---+ + + | 01/16/ | Telephone | | SbLynda, | Foot pain; Foot | | 2018 | | | MD | swelling; Medication | | | | | | requested (Pain | | | | | | Meds ) | +--------+ +---+ + + | 01/15/ | Office | | SbLynda, | Mass of left foot | | 2017 | Visit | | MD | (Primary Dx) | +--------+ +---+ + + from Last 3 Months Family History + + +------+ + | [...] Pressure | 172/99 | 04/09/2018 3:35 PM PDT | + + + + | Pulse | 85 | 04/09/2018 3:35 PM PDT | + + + + | Temperature | 36.6 C (97.8 F) | 04/09/2018 3:35 PM PDT | + + + + | Respiratory Rate | 16 | 04/09/2018 3:35 PM PDT | + + + + | Oxygen Saturation | 96% | 04/09/2018 3:35 PM PDT | + + + + | Inhaled Oxygen | - | - | | Concentration | | | + + + + | Weight | 142.1 kg (313 lb 3.2 | 04/09/2018 3:35 PM PDT | | | oz) | | + + + + | Height | 172.7 cm (5' 8") | 03/24/2018 9:45 AM PDT | + + + + | Body Mass Index | 47.62 | 04/09/2018 3:35 PM PDT | + + + + Plan of Treatment +--------+ + + + + | Date | Type | Specialty | Care Team | Description | +--------+ + + + + | 04/24/ | Appointment | | Darwin Juan Starter | | | 2018 | | | [address] | | | | | | [place] [address] | | +--------+ + + + + | 04/24/ | Office | | Annie Gannon, | | | 2017 | Visit | | [place],SALON SUPERVISOR [address] | | | | [address] | | | | | | [place], [place] | | | | | | [address] | | | | | | [phone] | | | | | | | | +--------+ + + + + | 04/24/ | Hospital | | Savanna Mari, | | | 2017 | Encounter | | MD [address] | | | | | | [place], [place] | | | | | | [address] | | | | | | [phone] | | | | | | | | +--------+ + + + + | 05/15/ | Appointment | | | | | 2017 | | | | | +--------+ + + + + | 05/15/ | Office | | Sandra Patel MD | | | 2017 | Visit | | [address] | | | | | | [place], [place] | | | | | | [address] | | | | | | [phone] | | | | | | | | +--------+ + + + + + + + + + | Health Maintenance | Due Date | Last Done | Comments | + + + + + | INFLUENZA VACCINE | | 10/09/2017, 05/22/2016, | | | (FLU SHOT) | 8 | 06/09/2015 | | + + + + + Implants + +------+--------+ +--------+--------+--------+ | Implanted | Type | Area | Manufacture | Device | Expira | Model | | | | | r | | tion | / | | | | | | Identi | Date | Serial | | | | | | fier | | / Lot | + +------+--------+ +--------+--------+--------+ | Port Implantable Infusion Mri | | Right: | BARD | | 03/29/ | [id number] | | Plastic 10fr 2 Lumen | | Chest | | | 2020 | 0 / | | Attachable Catheter Peel | | | | | | [id number] | | Apart Percutaneous - | | | | | | 465 | | [id number]: Qty: 1 on | | | | | | | | 02/06/2018 by Sb, | | | | | | | | MD Lynda | | | | | | | + +------+--------+ +--------+--------+--------+ Procedures + +--------+ + + + | [...] THE | | | PROCEDURES | | 10:00 AM | KNEE STUMP INFECTION | | [...] + | PORT/LINE PLACEMENT | Routin | 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 + + + | Specimen | Performing Laboratory | + + + | Blood | | + + + CMP, POC (BMP+LFT) (04/09/2018 3:26 PM)Only the most recent of 3 results within the time p kelsea is included. + +---------+ + | Component | Value | Ref Range | + +---------+ + | SODIUM, POC | 138 | 134 - 143 mmol/L | + +---------+ + | POTASSIUM, POC | 2.8 (L) | 3.4 - 5.0 mmol/L | + +---------+ + | TOTAL CO2, POC | 27 | 22 - 29 mmol/L | + +---------+ + | CHLORIDE, POC | 100 | 97 - 108 mmol/L | + +---------+ + | GLUCOSE, POC | 101 (H) | 70 - 99 mg/dL | + +---------+ + | CALCIUM TOTAL, POC | 8.5 (L) | 8.6 - 10.2 mg/dL | + +---------+ + | BUN, POC | 11 | 6 - 20 mg/dL | + +---------+ + | CREATININE, POC | 0.7 | 0.6 - 1.1 mg/dL | + +---------+ + | ALK PHOS, CMP POC | 48 | 33 - 76 U/L | + +---------+ + | ALT, CMP POC | 24 | 0 - 60 U/L | + +---------+ + | AST, CMP POC | 22 | 0 - 41 U/L | + +---------+ + | BILIRUBIN TOTAL, CMP | 0.7 | 0.3 - 1.2 mg/dL | | POC | | | + +---------+ + | ALBUMIN, CMP POC | 4.0 | 3.5 - 4.7 g/dL | + +---------+ + | PROTEIN TOTAL, CMP | 7.1 | 6.1 - 7.9 g/dL | | POC | | | + +---------+ + + + + | Specimen | Performing Laboratory | + + + | Blood | [facility], POINT OF CARE TESTS [address] [facility], [place] | | | [address] | + + + CBC WITH AUTO DIFF (04/09/2018 3:14 PM)Only the most recent of 3 results within the time p kelsea is included. + + + | Specimen | Performing Laboratory | + + + | Blood | | + + + CBC+DIFF,POC (04/09/2018 3:14 PM)Only the most recent of 3 results within the time period is included. + + + + | Component | Value | Ref Range | + + + + | WBC POC | 7.8 | 3.5 - 10.8 10*3/uL | + + + + | RBC POC | 3.95 (L) | 4.00 - 5.20 10*6/uL | + + + + | HGB POC | 12.1 | 12.0 - 16.0 g/dL | + + + + | HCT POC | 35.4 (L) | 36.0 - 46.0 % | + + + + | MCV POC | 89.6 | 80.0 - 100 fL | + + + + | MCH POC | 30.6 | 27.0 - 34.0 pg | + + + + | MCHC POC | 34.2 | 32.0 - 36.0 g/dL | + + + + | RDW SD, POC | 49.3 (H) | 35.1 - 46.3 fL | + + + + | PLT POC | 246 | 150 - 400 10*3/uL | + + + + | MPV POC | 9.4 (L) | 9.7 - 12.3 fL | + + + + | NEUTROPHIL% POC | 58.6 | 50.0 - 70.0 % | + + + + | LYMPH% POC | 22.7 | 18 - 42 % | + + + + | MONO %, POC | 14.9 (H) | 3.5 - 9.0 % | + + + + | EOS %, POC | 1.0 | 1.0 - 3.0 % | + + + + | BASO %, POC | 2.8 (H) | 0.0 - 2.0 % | + + + + | NEUTROPHIL# POC | 4.6 | 1.8 - 7.7 10*3/uL | + + + + | LYMPH# POC | 1.8 | 1.0 - 4.8 10*3/uL | + + + + | MONO #, POC | 1.2 (H) | 0.1 - 0.9 10*3/uL | + + + + | EOS #, POC | 0.1 | 0.0 - 0.5 10*3/uL | + + + + | BASO #, POC | 0.2 (H) | 0.0 - 0.1 10*3/uL | + + + + + + + | Specimen | Performing Laboratory | + + + | Blood | [facility], POINT OF CARE TESTS [address] [facility], [place] | | | [address] | + + + MAGNESIUM, PLASMA (04/09/2018 1:53 PM)Only the most recent of 2 results within the time gerda redding is included. + + + | Specimen | Performing Laboratory | + + + | Blood | | + + + + + | Narrative | + + | The following orders were created for panel order MAGNESIUM, PLASMA. | | Procedure | | Abnormality Status | | --------- | | ------ MAGNESIUM, | | PLASMA[[id number]] Normal Final | | result Please view results for these tests on the | | individual orders. | + + URINE, MICROSCOPIC EXAM (04/09/2018 1:53 PM)Only the most recent of 9 results within the period is included. + +---------+ + | Component | Value | Ref Range | + +---------+ + | RED CELLS | 4 (H) | 0 - 3 /hpf | + +---------+ + | WHITE CELLS | 8 (H) | 0 - 5 /hpf | + +---------+ + | BACTERIA | None | None /hpf | + +---------+ + | YEAST (LAB) | Few (A) | None /hpf | + +---------+ + | SQUAMOUS EPITHELIAL | Few (A) | None /hpf | + +---------+ + | MUCOUS | Few (A) | None /hpf | + +---------+ + | TRICHOMONAS | None | None /hpf | + +---------+ + | NON-SQUAMOUS EPITH | Few (A) | None /hpf | [...] | + + + | Urine | [facility], CORE [address] [facility] | | | [place] [address] | + + + PHOSPHORUS, PLASMA (04/09/2018 1:53 PM)Only the most recent of 2 results within the time stephane enamorado is included. + +---------+ + | Component | Value | Ref Range | + +---------+ + | PHOSPHORUS, PLASMA | 5.0 (H) | 2.4 - 4.7 mg/dL | | (LAB) | | | + +---------+ + + + + | Specimen | Performing Laboratory | + + + | Blood | [facility], CORE [address] | | | [place] [address] | + + + MAGNESIUM, PLASMA (04/09/2018 1:53 PM)Only the most recent of 2 results within the time gerda redding is included. + +-------+ + | Component | Value | Ref Range | + +-------+ + | MAGNESIUM,PLASMA | 2.0 | 1.6 - 2.6 mg/dL | + +-------+ + + + + | Specimen | Performing Laboratory | + + + | Blood | [facility], CORE [address] | | | [place] [address] | + + + + + | Narrative | + + | Reference range change effective 04/16/17. | + + BASIC METABOLIC SET (NA, K, CL, TCO2, BUN, CR, GLU, CA) (04/01/2018 4:41 AM)Only the most recent of 6 results within the time period is included. + +---------+ + | Component | Value [...] | >60 | >60 mL/min | | KAZAKH | | | + +---------+ + | EGFR NON | >60 | >60 mL/min | | -KAZAKH | | | + +---------+ + | [...] + + | Blood | [facility], CORE [address] [place] [address] | | | [place] [address] | + + + + + | [...] | | muscle-wasting diseses | + + RETICULOCYTE COUNT (04/01/2018 4:40 AM)Only the most recent of 3 results within the time stephane enamorado is included. + + + + | Component | [...] + + | Blood | [facility], CORE [address] [place] [address] | | | [place] [address] | + + + RBC MORPHOLOGY (04/01/2018 4:40 AM)Only the most recent of 8 results within the time perio d is included. + + + + | Component | Value | Ref Range | + + + + | ANISOCYTOSIS | 1+(10-25cells/HPF) | | + + + + + + + | Specimen | Performing Laboratory | + + + | Blood | [facility], CORE [address] [facility] | | | [place] [address] | + + + CBC AND AUTO DIFF (04/01/2018 4:40 AM)Only the most recent of 10 results within the time stephane enamorado is included. + + + + | Component | [...] | + + + | Blood | [facility], CORE [address] [facility] | | | [place] [address] | + + + + + | Narrative | + + | New reference ranges for MCV, MCHC, PLT, IG% and IG# effective 01/09/2018 | + + MANUAL DIFFERENTIAL (04/01/2018 4:40 AM)Only the most recent of 6 results within the time period is included. + + + + | Component | [...] | + + + | Blood | [facility], CORE [address] [facility] | | | [place] [address] | + + + + + | [...] in a manual diff. | + + CBC, WITH DIFFERENTIAL (04/01/2018 4:40 AM)Only the most recent of 9 results within the ti me period is included. + + + | Specimen | Performing Laboratory | + + + | Blood | | + + + + + | Narrative | + + | The following orders were created for panel order CBC, WITH DIFFERENTIAL. | | Procedure | | Abnormality Status | | --------- | | ------ CBC AND AUTO | | DIFF[[id number]] Abnormal Final | | result MANUAL | | DIFFERENTIAL[[id number]] Abnormal Final | | result RBC | | MORPHOLOGY[[id number]] | | Final result Please view results for these tests on the | | individual orders. | + + RETICULOCYTE COUNT, BLOOD (04/01/2018 4:40 AM)Only the most recent of 3 results within the time period is included. + + + | Specimen | Performing Laboratory | + + + | Blood | | + + + + + | Narrative | + + | The following orders were created for panel order RETICULOCYTE COUNT, BLOOD. | | Procedure | | Abnormality Status | | --------- | | ------ RETICULOCYTE | | COUNT[[id number]] Abnormal Final | | result Please view [...] The patient has | | a left hkeqn-ons-twyr amputation. A surgical drain is present at [...] MD 04/01/2018 10:01 AM Dictation initiated: Helder Romano, | | 03/31/2018 5:16 PM | + [...] administered. FINDINGS: The patient has a left dznbm-sry-yxjv amputation. A surgical | | drain is [...] Laboratory | + + + | | [facility] RADI[facility] VOICE RECOGNITION 2 | + + [...] + + CBC (HEMOGRAM) ONLY (03/31/2018 1:57 PM)Only the most recent of 10 results within the time period is included. + + + + | Component | [...] + + | Blood | [facility], CORE [address] | | | [place] [address] | + + + + + | Narrative | + + | New reference ranges for MCV, MCHC, PLT, IG% and IG# effective 01/09/2018 Collect | | after 2 units have completed transfusion. | + + CBC ONLY (03/31/2018 1:57 PM)Only the most recent of 10 results within the time period is included. + + + | Specimen | Performing Laboratory | + + + | Blood | | + + + + + | Narrative | + + | The following orders were created for panel order CBC ONLY. | | Procedure | | Abnormality Status | | --------- | | ------ CBC (HEMOGRAM) | | ONLY[[id number]] Abnormal Final | | result Please view results for these tests on the | | individual orders. | + + TRANSFUSE RED CELLS, LEUKOREDUCED (03/31/2018 11:49 AM)Only the most recent of 13 results w ithin the time period is included.C3 CRISTIANO (03/31/2018 11:33 AM) + + + + | Component | Value | Ref Range | + + + + | CRISTIANO C3 | Negative | | + + + + + + + | Specimen | Performing Laboratory | + + + | Blood | [facility], TRANSFUSION MEDICINE [address] [facility] | | | [place] [address] | + + + CRISTIANO IGG (03/31/2018 11:33 AM) + + + + | Component | Value | Ref Range | + + + + | BRIE, IGG | Negative | | + + + + + + + | Specimen | Performing Laboratory | + + + | Blood | [facility], TRANSFUSION MEDICINE [address] [facility] | | | [place] [address] | + + + COMPLETE METABOLIC SET (NA,K,CL,CO2,BUN,CREAT,GLUC,CA,AST,ALT,BILI TOTAL,ALK PHOS,ALB,PROT TOTAL) (03/31/2018 11:33 AM)Only the most recent of 7 results within the time period is incl uded. + +---------+ + | Component | Value [...] | >60 | >60 mL/min | | KAZAKH | | | + +---------+ + | EGFR NON | >60 | >60 mL/min | | -KAZAKH | | | + +---------+ + | [...] + + | Blood | [facility], CORE [address] [facility] | | | [place], [place] [address] | + + + + + | [...] + + COAGULOPATHY PANEL (INR,APTT,FIBRINOGEN) (03/31/2018 11:33 AM)Only the most recent of 2 res ults within the time period is included. + + + + | Component | [...] + + | Blood | [facility], CORE [address] [facility] | | | [place] [address] | + + + + + | [...] 0.35 - 0.7 U/mL | + + HAPTOGLOBIN (03/31/2018 11:33 AM)Only the most recent of 2 results within the time period i s included. + +-------+ + | Component | Value | Ref Range | + +-------+ + | HAPTOGLOBIN | 187 | 30 - 200 mg/dL | + +-------+ + + + + | Specimen | Performing Laboratory | + + + | Blood | [facility], CORE [address] [facility] | | | [place] [address] | + + + LDH TOTAL, PLASMA (03/31/2018 11:33 AM)Only the most recent of 3 results within the time gerda redding is included. + +---------+ + | Component | Value | Ref Range | + +---------+ + | LD TOTAL, PLASMA | 281 (H) | <=250 U/L | + +---------+ + | LD CMNT | No Hemo | | + +---------+ + + + + | Specimen | Performing Laboratory | + + + | Blood | [facility], CORE [address] [facility] | | | [place] [address] | + + + PRODUCT - RED CELLS LEUKOREDUCED (03/31/2018 5:58 AM)Only the most recent of 9 results sylvie martel the time period is included. + + + + | Component | Value | Ref Range | + + + + | PRODUCT DESCRIPTION | -1 RED BLOOD CELL ADENINE-SALINE ADDED | | | | LEUKOCYTE | | + + + + | PRODUCT UNIT # | [id number] | | + + + + | UNIT ABO | A | | + + + + | UNIT RH | POS | | + + + + | STATUS OF UNIT | Presumed Transfused | | + + + + | EXPIRATION DATE | [id number] | | + + + + | BLOOD TYPE BARCODE | 6200 | | + + + + | BLOOD PRODUCT CODE | [id number] | | + + + + + + + | Specimen | Performing Laboratory | + + + | | [facility], TRANSFUSION MEDICINE [address] [facility] | | | [place] [address] | + + + HANNAH, ADD ON (03/31/2018 4:53 AM) + + + | Specimen | Performing Laboratory | + + + | Blood | | + + + + + | Narrative | + + | The following orders were created for panel order DIFFERENTIAL, ADD ON. | | Procedure | | Abnormality Status | | --------- | | ------ DIFFERENTIAL, | | ADD ON[[id number]] Final | | result MANUAL | | DIFFERENTIAL[[id number]] Abnormal Final | | result Please view results for these tests on the | | individual orders. | + + DIFFERENTIAL, ADD ON (03/31/2018 4:53 AM) + + + | Specimen | Performing Laboratory | + + + | Blood | [facility], CORE [address] [facility] | | | [place] [address] | + + + + + | Narrative | + + | New reference ranges for MCV, MCHC, PLT, IG% and IG# effective 01/09/2018 | + + FERRITIN (03/31/2018 4:53 AM) [...] + + | Blood | [facility], CORE [address] [facility] | | | [place] [address] | + + + CAPILLARY BLOOD GLUCOSE (NO CHG), POC (03/30/2018 1:30 PM)Only the most recent of 8 result s within the time period is included. + +---------+ + | Component | Value | Ref Range | + +---------+ + | BLOOD GLUCOSE, POC | 135 (H) | 70 - 99 mg/dL | + +---------+ + + + + | Specimen | Performing Laboratory | + + + | | [facility], POINT OF CARE TESTS [address] | | | [place] [address] | + + + ANTIBODY SCREEN (03/29/2018 1:32 PM)Only the most recent of 3 results within the time jama od is included. + + + + | Component | Value | Ref Range | + + + + | Antibody Screen | Negative | | + + + + + + + | Specimen | Performing Laboratory | + + + | Blood | [facility], TRANSFUSION MEDICINE [address] [place] [address] | | | [place] [address] | + + + TYPE AND SCREEN (03/29/2018 1:32 PM)Only the most recent of 2 results within the time jama od is included. + + + | Specimen | Performing Laboratory | + + + | Blood | | + + + + + | Narrative | + + | The following orders were created for panel order TYPE AND SCREEN. | | Procedure | | Abnormality Status | | --------- | | ------ ABO & RH | | TYPE[[id number]] F | | inal result ANTIBODY | | SCREEN[[id number]] Fin | | al result Please view results for these tests on the | | individual orders. | + + ABO & RH TYPE (03/29/2018 1:32 PM)Only the most recent of 3 results within the time period is included. + + + + | Component | Value | Ref Range | + + + + | ABO Group | A | | + + + + | Rh Type | Positive | | + + + + + + + | Specimen | Performing Laboratory | + + + | Blood | [facility], TRANSFUSION MEDICINE [address] [facility] | | | [place] [address] | + + + VANCOMYCIN, TROUGH (03/29/2018 7:08 AM)Only the most recent of 3 results within the time stephane enamorado is included. + + + + | Component | Value | Ref Range | + + + + | VANCOMYCIN, TROUGH | 22.0 (H) | 10.0 - 20.0 ug/mL | + + + + + + + | Specimen | Performing Laboratory | + + + | Blood | [facility], CORE [address] [facility] | | | [place] [address] | + + + + + | Narrative | + + | Please draw vancomycin trough prior to the morning dose, level ordered for 03/29 | + + OPERATION RECORD (03/27/2018 12:10 PM) + + | Procedure Note | + + | Lynda Basurto MD - 03/27/2018 12:10 PM PDT Date of Service: 03/27/2018 | | Attending Surgeon: Lynda Basurto MD Bread Distributor(s): Odalys | | Mike Tobin PA-C. Please note no other qualified property management assistant was available. | | Preoperative Diagnosis: [...] closure of the fascia. This was a 10-Marshallese | | channel drain. Please note, the [...] 03/27/2018 | | 11:18:37DT: 03/27/2018 12:10:06Job #: [id number] | + + PROCEDURE NOTE (03/27/2018 11:37 AM)Only the most recent of 5 results within the time leti keating is included. + + | Narrative | + + | Odalys Tobin PA-C 03/27/2018 11:39 AM INPATIENT BRIEF OPERATIVE NOTE | | Procedure Date: 03/27/2018 Author: ODALYS TOBIN PA-C Attending | | Physician: Dr. Lynda Basurto Assistants: ODALYS TOBIN PA-C Preoperative | | Diagnosis: infected postoperative [...] 2 weeks | | | + + CULTURE, TISSUE (03/27/2018 10:27 AM)Only the most recent of 10 results within the time per iod is included. + + + + | Component | Value | Ref Range | + + + + | CULTURE RESULT | Escherichia coli (A) | | + + + + + + + | Specimen | Performing Laboratory | + + + | Tissue - Leg | [facility] [place] [address] [place], [place] | | | [address] | + + + + + | Narrative | + + | Culture Report: Rare Escherichia coli Refer to culture collected 03/24/18 at | | 11:56 AM for susceptibilities No anaerobic organisms isolated Gram Stain: No | | squamous epithelial cells Rare polymorphonuclear cells No organisms seen | + + ANE ETT (03/27/2018 10:12 AM)Only the most recent of 2 results within the time period is in cluded. + + | Narrative | + + | Kemar Perla MD 03/27/2018 10:14 AM Procedure Reason for | | Intubation: For surgical procedure, Location Performed: [place] , Patient was preoxygenated | | Mask Ventilation Grade 2 - Ventilated by mask with oral airway/adjuvant | | Intubation Blade type: Other Other blade type: GS, Atraumatic laryngoscopy: | | Atraumatic Laryngoscopy, Intubation adjuncts: Stylet used , Laryngoscopic view: Grade | | II, Fiberoptics used: Glidescope , Number of Attempts: 1, Positive for EtCO2: Yes, | | Breath sounds: Bilateral and equal ETT Ett Adult: Single-lumen cuffed ETT Size: | | 7 ETT secured with: adhesive tape Depth at Lip: 23 Cm Narrative | | Attending physically present Performed by Resident | + + ANE JUSTIN GAY (03/27/2018 9:21 AM) + + | Narrative | + + | Laina Fragoso MD 03/27/2018 9:22 AM PNB Cath TYPE Type: sciatic | | block Indication: ultrasound guided Side: left Block indication: Have received and | | accepted request from attending surgeon to offer advanced acute pain management | | services to the patient Location: Pre-Op, The patient was identified, the site marked, | | full PARQ Done PROCEDURE Pt. Position: Supine Monitors used: EKG, NIBP and SpO2 | | Supplimental O2 used draped in sterile fashion ULTRASOUND Spread characteristics: | | full spread around nerve/plexus Image: printed and placed in patients chart Guidance: | | Needle tip confirmed by hydrolocalization and Needle tip visualized NEEDLE Needle | | type: Tuohy Gauge: 17 G Length: 9 cm Catheter at skin depth 17 cm | | No, Aspiration was Negative for blood NERVE STIMULATOR ASSESSMENT test dose | | required; Test Result Negative Ist attempt Complications: None Attending physically | | present Attending: CARON HARVEY Performed by Resident LAINA FRAGOSO | | P A procedural pause verifying correct patient, medical record number, date of | | , allergies, and surgical site/orientation was performed immediately prior to | | beginning the procedure. Previous to pause a formal PARQ discussion was held with | | patient who consents to procedure and understands risks/benefits of nerve block. | | After visual anatomical identification of landmarks, site was thoroughly cleaned with | | betadine. Skin anesthestized with 1% lidocaine. Ultrasound visualization of sciatic | | nerve anatomy was adequate although difficult to visualize due to patient habitus. | | Patient awake, alert, conversant throughout without complaint. No paresthesias or | | pain with injection noted. Local anesthetic was injected after negative aspiration | | in divided doses with repeat aspiration after every 5mL. See anesthetic record for | | medication dose documentation. The procedure was well tolerated and without observed | | complication. See patient's medical record for images. Difficult due to patient | | habitus although good spread noted around both components of sciatic nerve. | + + ANE PNB SS (03/27/2018 9:18 AM) + + | Narrative | + + | Laina Fragoso MD 03/27/2018 9:21 AM Single-Shot Type Type | | saphenous block Technique used ultrasound guided Side left Block indication: Have | | received and accepted request from attending surgeon to offer advanced acute pain | | management services to the patient Pre-Op The patient was identified, the site | | marked, full PARQ Done Procedure Pt. Position Supine, Monitors used NIBP and SpO2 | | Supplimental O2 used Single Shot Prep: Betadine Ultrasound Spread | | Characteristics: full spread around nerve/plexus Image printed and placed in patients | | chart Guidance: Needle tip confirmed by hydrolocalization and Needle tip visualized | | Needle Needle type: Short-bevel Gauge: 21 G Length: 4 in No, Aspiration was | | Negative for blood Nerve Stimulator Assessment Ist attempt Result: Block beginning | | to set up prior to induction Complications: None, Block not abandoned Technical | | difficulty: Easy Intended analgesia: Satisfactory block in appropriate fashion | | Attending physically present Attending Name: CARON HARVEY Performed by Resident | | LAINA FRAGOSO A procedural pause verifying correct patient, medical record | | number, date of , allergies, and surgical site/orientation was performed | | immediately prior to beginning the procedure. Previous to pause a formal PARQ | | discussion was held with patient who consents to procedure and understands | | risks/benefits of nerve block. After visual anatomical identification of | | landmarks, site was thoroughly cleaned with betadine. Skin anesthestized with 1% | | lidocaine. Ultrasound visualization of saphenous nerve anatomy was good. Patient | | awake, alert, conversant throughout without complaint. No paresthesias or pain with | | injection noted. Local anesthetic was injected after negative aspiration in divided | | doses with repeat aspiration after every 5mL. See anesthetic record for medication | | dose documentation. The procedure was well tolerated and without observed | | complication. See patient's medical record for images. | + + DEBRIDEMENT OF BELOW KNEE AMPUTATION STUMP (03/24/2018 1:31 PM) + + | Narrative | + + | Macie Torre MD 03/24/2018 1:49 PM [facility] | | DEPARTMENT OF ORTHOPAEDICS & REHABILITATION OPERATIVE REPORT | | Patient Name: Annika | Minerva Cage Date of : 1985 Contract | | Serial Number:: [id number] Report Author: MACIE TORRE MD Procedure Date: | | 03/24/2018 Attending Physician: 1. MACIE TORRE MD Bread Distributor(s): | | 1. Bartolo Dumont MD Preoperative Diagnosis(es): 1. Left BKA stump [...] Drains: VAC | | Indications for Procedure(s): Annika Cage is a 32 y.o. female with [...] muscle and fascia. Wound size | | [id number] after tacking back fascia Application of VAC [...] | | sponge in the remaining wound [id number]. Excellent seal was attained. The | | patient was woken from anesthesia in the operating room and then transferred to the | | post anesthesia care unit in stable condition. At the end of the case the final | | instrument and sponge counts were correct. Macie Talavera was present/available | | during the critical portions of the procedure. Disposition/Post operative plan: | | 1. Weight Bearing: NWB 2. Acute pain: IV/PO 3. Diet: Advance 4. PACU | | Disposition: Floor 5. Medications: Resume 6. VTE prophalaxis: Lovenox 7. | | Anticipated discharge: plan for return to [place] on [facility] MACIE TORRE MD 03/24/2018, | | 1:33 PM | + + SURGICAL PATHOLOGY (03/24/2018 11:59 AM)Only the most recent of 3 results within the time p kelsea is included. + + + + | Component | [...] | | | the patient's name (initials MICHELLE) and | | | | . A. [...] characteristics determined | | | | by [employer]. It has not been | | | [...] + + | Tissue - Leg | [facility] DEPARTMENT OF PATHOLOGY [address] [place] [address] RD | | | [place] [address] | + + + PRODUCT - PLATELET PHERESIS LEUKOREDUCED (03/24/2018 9:15 AM)Only the most recent of 2 res ults within the time period is included. + + + + | Component | Value | Ref Range | + + + + | PRODUCT DESCRIPTION | PLATELETS PHERESIS, LEUKOCYTE REDUCED, | | | | IRRADIATED | | + + + + | PRODUCT UNIT # | [id number] | | + + + + | UNIT ABO | A | | + + + + | UNIT RH | NEG | | + + + + | STATUS OF UNIT | Presumed Transfused | | + + + + | EXPIRATION DATE | [id number] | | + + + + | BLOOD TYPE BARCODE | 0600 | | + + + + | BLOOD PRODUCT CODE | [id number] | | + + + + + + + | Specimen | Performing Laboratory | + + + | | [facility] LABORATORY SERVICES, TRANSFUSION MEDICINE [address] | | | [place] [address] | + + + CARDIOLOGY (03/24/2018)Only the most recent of 2 results within the time period is included .TRANSFUSE PLATELET PHERESIS, LEUKOREDUCED (03/23/2018 8:23 PM)Only the most recent of 2 re sults within the time period is included.C-REACTIVE PROTEIN (03/23/2018 4:44 PM) + + + + | Component | Value | Ref Range | + + + + | C-REACTIVE PROTEIN | 166.0 (H) | <10.0 mg/L | + + + + + + + | Specimen | Performing Laboratory | + + + | Blood | [facility] LABORATORY SERVICES, CORE [address] [facility] | | | [place] [address] | + + + + + | Narrative | + + | New method, new reference range and new reporting units as of 02/03/2014. | + + D-DIMER, (PE OR DIC) (03/23/2018 4:44 PM) + + + + | Component | Value | Ref Range | + + + + | D-DIMER (PE OR DIC) | 0.62 (H) | <0.50 ug/mLFEU | + + + + + + + | Specimen | Performing Laboratory | + + + | Blood | [facility] LABORATORY SERVICES, CORE [address] | | | [place] [address] | + + + + + | Narrative | + + | D-Dimer Interpretation: <0.5 PE very unlikely 0.50-4.0 Seen in | | ill patients but not diagnostic of thrombosis. >4.0 Compatible with DIC but | | not diagnostic. If clinically indicated request titration of | | d-dimer. Values >8.0 are strongly suggestive of DIC. | + + SEDIMENTATION RATE (03/23/2018 4:41 PM) + +---------+ + | Component | Value | Ref Range | + +---------+ + | SEDIMENTATION RATE | 102 (H) | 0 - 20 mm/hr | + +---------+ + + + + | Specimen | Performing Laboratory | + + + | Blood | [facility] LABORATORY SERVICES, CORE [address] [place] [address] | | | [place] [address] | + + + + + | Narrative | + + | Conditions such as cold agglutinins, anemia, hemolysis, icterus or lipemia may affect | | sedimentation rate. | + + CULTURE, BLOOD BACTI & YEAST LUIS (03/23/2018 4:40 PM)Only the most recent of 2 results wi thin the time period is included. + + + + | Component | Value | Ref Range | + + + + | CULTURE RESULT | Final Report:No Bacteria or Yeast isolated | | | | at 5 days. | | + + + + + + + | Specimen | Performing Laboratory | + + + | Blood | [facility] LABORATORY SERVICES, CORE [address] | | | [place] [address] | + + + CULTURE, BLOOD BACTI & YEAST (03/23/2018 4:40 PM)Only the most recent of 2 results within the time period is included. + + + | Specimen | Performing Laboratory | + + + | Blood | | + + + + + | Narrative | + + | The following orders were created for panel order CULTURE, BLOOD BACTI & YEAST. | | Procedure | | Abnormality Status | | --------- | | ------ CULTURE, BLOOD | | BACTI & Y...[[id number]] Final | | result Please view results for these tests on the | | individual orders. | + + X-RAY KNEE 2 VIEWS LEFT (03/23/2018 3:55 PM) + + + | Specimen | Performing Laboratory | + + + | | [facility] RADIOLOGY VOICE RECOGNITION 2 | + + [...] MD 03/23/2018 4:51 PM | + + VASC LAB VENOUS DUPLEX LOWER EXTREMITY RT (03/13/2018 12:08 PM) + + + | Specimen | Performing Laboratory | + + + | | [facility] RADIOLOGY VAS US | + + + + + | Narrative | + + | Right: The duplex scanner was used to examine the deep and superficial veins of the | | right lower extremity. The right lower extremity veins are patent with normal flow | | and responses to augmentation and compression maneuvers and no thrombus is noted. The | | left leg common femoral vein was examined and is patent with normal flow. | | Conclusions: A normal venous examination of the right lower extremity. No venous | | thrombosis was detected. The left lower extremity was not examined. I have | | personally reviewed the images and, if necessary, edited the report. I agree with the | | report as now presented. | + + + + | Procedure Note | + + | Service Account, RadiEmprego Ligado Res In Interface - 03/13/2018 12:35 PM PDT [...] report as now presented. | + + 12 LEAD ECG (02/20/2018 10:20 AM) + + + + | Component | Value | Ref Range | + + + + | VENTRICULAR RATE | 72 | bpm | + + + + | ATRIAL RATE | 72 | ms | + + + + | P-R INTERVAL | 160 | ms | + + + + | P AXIS | 48 | deg | + + + + | QRS DURATION | 97 | ms | + + + + | QT | 425 | ms | + + + + | QTCB | 465 | ms | + + + + | R AXIS | -11 | deg | + + + + | T AXIS | 10 | deg | + + + + | ECG IMPRESSION | Sinus rhythm- NORMAL ECG - | | + + + + | ECG IMPRESSION | Electronically signed by: EMIL DURAN | | | | 02-20-2018 12:01:05 | | + + + + + + + | Specimen | Performing Laboratory | + + + | | [facility] [address] [place] [address] | | | [place] [address] | + + + HSR PROCESS ONLY (02/10/2018 10:45 AM) + + + | Specimen | Performing Laboratory | + + + | Slide-Block | [facility] [employer] [facility] [address] | | | [address] [place] [address] | + + + TRANSTHORACIC ECHOCARDIOGRAM, ADULT (02/09/2018 11:45 AM) + [...] + + + | | [facility] DEPT OF CARDIOLOGY [address] [place] [address] | | | [place] [address] | + + + + + | Narrative | + + | [facility] Adult Echocardiography Laboratory | | [facility] [place] [address] Ph: | | Pt Name: ANNIKA CAGE Study | | Date/Time 02/09/2018 / 11:45:04 AM | | Most recent prior: - Acc #: [id number] No. previous echos: 0 | | : 1985 32 years Heart Rate: 78 bpm Height: 68.0 | | in Blood Pressure: 121/61 mm/Hg Weight: 308.0 | | lb Gender: F BSA: 2.46 | | m2 Order ID: [id number] Matte Cutter: | | John Gonzalez MA, [facility] Matte Cutter 2: Referring Provider: Lynda Yanez | | Location: 9K Modalities Performed: [...] and indexed values Report electronically signed by: [id number] Justin | | Malachi DIAS (02/09/2018, 3:09:17 PM) Final | + + + + | Procedure Note | + + | Interface, Ecg Results - 02/09/2018 3:09 PM [facility] [employer] | | [facility] [address] [place] [address] | | [place], [place] [address] Pt Name: ANNIKA BORDEN | | CAGE Study Date/Time 02/09/2018 / 11:45:04 AMMRN: [id number] Most | | recent prior: -Acc #: [id number] No. previous echos: 0DOB: 1985 32 | | years Heart Rate: 78 bpmHeight: 68.0 in Blood Pressure: 121/61 | | mm/HgWeight: 308.0 lb Gender: FBSA: 2.46 m2 | | Order ID: [id number] Matte Cutter: Jhon Gonzalez MA, RDCSSonographer | | 2:Referring Provider: Lynda Pastor Location: 9KModalities Performed: 2D, Color | [...] values Report | | electronically signed by: [id number] Justin Ly MD (02/09/2018, 3:09:17 PM) | [...] | | | |Report electronically signed by: [id number] Justin Ly MD (02/09/2018, 3:09:17 | |PM) | | | | | | | | Final | + + X-RAY TIBIA & FIBULA 2 VIEWS LT (02/07/2018 8:57 AM) + + + | Specimen | Performing Laboratory | + + + | | [facility] RADIOLOGY VOICE RECOGNITION 2 | + + [...] MD 02/07/2018 10:04 AM | + + OPERATION RECORD (02/06/2018 7:40 PM) + + | Procedure Note | + + | Lynda Basurto MD - 02/06/2018 7:40 PM PDT Date of Service: 02/06/2018 | | Attending Surgeon: Lynda Basurto MD Bread Distributor(s): Stephany | | Mike Flores MD. Preoperative Diagnosis: [...] as do other appropriate therapies for an amputation.Devonotto Sb, | | DARIUS/MODIRVIND: 02/06/2018 15:36:23DT: 02/06/2018 19:40:30Job #: [id number] | + + ANE EPIDURAL (02/06/2018 7:15 PM) + + | Narrative | + + | Cole Forrester MD 02/06/2018 12:18 PM PROCEDURE NAME Epidural [...] | Assessment: Deferred; Narrative Attending physically present ALLEN DENG | | JPerformed by Resident: COLE FORRESTER A procedural pause verifying correct | | [...] medical record for images. | + + X-RAY PORTABLE CHEST 1 VIEW (02/06/2018 4:54 PM) + + + | Specimen | Performing Laboratory | + + + | | [facility] RADIOLOGY VOICE RECOGNITION 2 | + + + + + | Narrative | + + | EXAM: TX CHEST 1 VIEW HISTORY: s/p port placement [...] Interface - 02/06/2018 5:11 PM PDT EXAM: TX CHEST 1 | | VIEW HISTORY: s/p [...] MD 02/06/2018 5:08 PM | + + X-RAY FLUOROSCOPY IN OR > 1 HOUR (02/06/2018 1:26 PM) + + | Narrative | + + | - At the time of the study, no professional interpretation was requested. - | + + CONFIRMATORY ABO/RH (02/06/2018 11:06 AM) + + + + | Component | Value | Ref Range | + + + + | ABO Group | A | | + + + + | Rh Type | Positive | | + + + + + + + | Specimen | Performing Laboratory | + + + | Blood | [facility] LABORATORY SERVICES, TRANSFUSION MEDICINE [address] [facility] | | | [place] [address] | + + + INTRAPROCEDURE IMAGING (02/06/2018 10:19 AM)Only the most recent of 2 results within the ti me period is included. + + | Narrative | + + | See admission or procedure notes for details of any intraprocedure images obtained. | + + [facility] - COMPLETE METABOLIC [...] + + | Blood | [facility] LABORATORY SERVICES, [facility] + HEALING [address] | | | [place] [address] | + + + [facility] - CBC [...] | ------ CBC AND AUTO | | DIFF[[id number]] Abnormal Final | | result Please view results for these tests on the | | individual orders. | + + INR (01/23/2018 2:48 PM) + +-------+ + | Component | Value | Ref Range | + +-------+ + | INR | 1.03 | 0.90 - 1.20 INR | + +-------+ + + + + | Specimen | Performing Laboratory | + + + | Blood | [facility] LABORATORY SERVICES, CORE [address] [facility] | | | [place] [address] | + + + + + | Narrative | + + | INR Therapeutic ranges for full anticoagulation: INR for Venous | | Thromboembolism (2.0 - 3.0) INR INR for most patients with | | mech. valves (2.5 - 3.5) INR | + + CT CHEST WO CONTRAST (01/22/2018 5:57 PM) [...] the report as now presented. Final signature: Momo Duke | | MD Shaji 01/23/2018 10:13 AM Preliminary: Mervin Lu MD | + + + + | Procedure Note | + + | Service Account, ScaleIO In Interface - 01/23/2018 10:14 AM PDT [...] |Preliminary: Mervin Lu MD | + + SPECIMEN ROUTING TO KD (01/22/2018 2:20 PM) + + + | Specimen | Performing Laboratory | + + + | Slide-Block | [facility] [employer] [address] | | [address] [place] [address] | + + + FISH, MOLECULAR PROBE, FFPE (01/15/2018 11:45 AM) + + + + | Component | Value | Ref Range | + + + + | DISCLAIMER | This test was developed and its performance | | | | characteristics determined by the [facility] | | | | [facility]. It has | | | | not been cleared or approved by the Food | | | | and Drug Administration. FDA approval is | | | | not required for the clinical use of the | | | | test, and therefore validation was done as | | | | required under the requirements of the | | | | Clinical Laboratory Improvement Act of 1988 | | | | (CLIA). The [facility] | | | | Laboratories are fully licensed by the | | | | state of [place] under CLIA and are | | | | accredited by the [employer] | | | | Pathologists (CAP). Laboratory | | | | Director: Kemar Kramer M.D., | | | | Ph.D Electronically reviewed and signed | | | | by:Justin Lu, PhD, [facility] | | | | [employer] Clinical Molecular | | | | Geneticist01/23/2018 at 1:21 PM Reviewed | | | | and electronically signed by JAMARI | | | | MD CLAIRE,FACMG01/23/2018 5:14 PM | | + + + + + + + | Specimen | Performing Laboratory | + + + | Muscle - Slide-Block | [facility] [employer] [place] [id number] | | [address] [place] [address] | + + + MORE COMMON INDIVIDUAL FISH PROBES, FFPE (01/15/2018 11:45 AM) + + + + | Component | Value | Ref Range | + + + + | Impressions and | Positive for SS18 (aka SYT; 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 FISH was performed with the | | | | SS18 probe set, as listed below. 98% of | | | | cells had a [id number] split signal | | | | pattern consistent with SS18 rearrangement. | | | | (Comment: This interphase FISH study | | | | assesses only the probe-specific regions | | | | listed below. It is not intended to | | | | stand alone, but rather to provide | | | | supplemental information to routine | | | | cytogenetic studies, clinical assessment | | | | and pathological findings.) Preliminary | | | | Report Date: FISH: 01/23/2018 verbal to | | | | Sandra Patel by Stephanie Stout Thank you very | | | | much for your referral. If you have any | | | | questions regarding this report or future | | | | cytogenetic testing issues, please feel | | | | free to contact us. Reason for Referral: | | | | soft tissue mass L foot. concern for | | | | possible sarcoma. The clinical | | | | interpretation was made by the clinical | | | | senior fund accountant. | | + + + + | CELLS SCORED SMITH | 100 | | | SS18 (18Q11.2) | | | | BREAK-APART | | | + + + + + + + | Specimen | Performing Laboratory | + + + | Muscle - Slide-Block | [facility] [address] | | [address] [place] [address] | + + + from Last 3 Months Insurance + +--------+ +--------+ + + | Payer | Benefi | Subscriber | Type | Phone | Address | | | t Plan | ID | | | | | | / | | | | | | | Group | | | | | + +--------+ +--------+ + + | [employer] [place] | BLUE | [phone] | PPO | [phone] [address] [address] [place] | | | CROSS | | | [address] | [place] [address] | | | [place] | | | | | | | L | | | | | + +--------+ +--------+ + + | [facility] | | [phone] | Agency | | | | SERVICE | | | | | | | | HEALTH | | | | | | | | | | | | | | SERVIC | | | | | | | E | | | | | + +--------+ +--------+ + + + +--------+ +--------+ + + | Guarantor Name | Accoun | Relation to | Date | Phone | Billing Address | | | t Type | Patient | of | | | | | | | | | | + +--------+ +--------+ + + | ANNIKA CAGE | Person | Self [birth year] Home: | [address] | | | al/Fam | | 1985 | [phone] | [place] [address] | | | emerita | | | [phone] | | + +--------+ +--------+ + +
--- OUTSIDE RECORDS SUMMARY | ~2018-04-16 | XMS | Encounter Summary ---
Demographics + + + | Address | [address] | | | [place] [address] | + + + | Home Phone [...] + + | Author | [facility] | + + + | Organization | [facility] | + + + | Address | Unknown | + + + | Phone | Unavailable | + + + Support + + +---------+ + | Name | Relationship | Address | Phone | + + +---------+ + | ROSE BOWENS | ECON | Unknown | | + + +---------+ + Care Team Providers + +------+ + | Care Fixer Supervisor Name | Role | Phone | + +------+ + | Santo Gooden MD | PCP | | + +------+ + Reason for Visit + + + | Reason | Comments | + + + | Needs Paperwork | | + + + Encounter Details +--------+ + + + + | Date | Type | Department | Care Team | Description | +--------+ + + + + | 02/24/ | Telephone | Hematology/Medical | Sandra Patel MD | Needs Paperwork | | 2018 | | [facility] | [address] | | | | | [facility] | [place], [place] | | | | | [address] | [address] | | | | | Mailcode: CH7M | [phone] | | | | | [facility] | | | | | | and [place], | | | | | | Floor [place], [place] | | | | | | [address] | | | | | | [phone] | | | +--------+ + + + [...] [address] | | | | | | [place] [address] | | +--------+ + + + + | 04/24/ | Office | Hematology & | Annie Gannon, | | | 2017 | Visit | Oncology | [place],MARKETING CONTENT SPECIALIST [address] | | | | | | [address] | | | | | | [place], [place] | | | | | | [address] | | | | | | [phone] | | | | | | | | +--------+ + + + + | 04/24/ | Hospital | Adult Acute Care | Savanna Mari, | | | 2017 | Encounter | | [address] | | | | | | [place], [place] | | | | | | [address] | | | | | | [phone] | | | | | | | [...] [address] | | | | | | [place], [place] | | | | | | [address] | | | | | | [phone] | | | | | | | | +--------+ + + + + as of this encounter Visit Diagnoses + + | Diagnosis | + + | Synovial sarcoma (HCC) - Primary | + + | 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
--- OUTSIDE RECORDS SUMMARY | ~2018-04-16 | XMS | Encounter Summary ---
Demographics + + + | Address | [address] | | | [place] [address] | + + + | Home Phone [...] Author + + + | Author | [facility] | + + + | Organization | [facility] | + + + | Address | Unknown | + + + | Phone | Unavailable | + + + Support + + +---------+ + | Name | Relationship | Address | Phone | + + +---------+ + | ROSE BOWENS | ECON | Unknown | | + + +---------+ + Care Team Providers + +------+ + | Care Detasseling Crew Supervisor Name | Role | Phone | + +------+ + | Santo Gooden MD | PCP | | + +------+ + Reason for Referral PROC - Inpatient Surgery (Urgent) + +--------+ + + + + | Status | Reason | Specialty | Diagnoses / | Referred By | Referred To | | | | | Procedures | Contact | Contact | + +--------+ + + + + | Authorized | | Orthopedics | Diagnoses | Berkley, | Doung, | | | | | Synovial | Santo Rogers MD | MD Lynda | | | | | sarcoma | [place] | [address] [facility] | | | | | (HCC) | [place] | [facility] | | | | | Malignant | Health | [address] | | | | | neoplasm of | Center | [place], [place] | | | | | connective | [address] | [address] | | | | | and soft | [place] | Phone: | | | | | tissue of | Way | [phone] | | | | | left lower | [place], | Fax: | | | | | limb, | [place] [address] | [phone] | | | | | including | Phone: | | | | | | hip | [phone] | | | | | | Procedures | Fax: | | | | | | REQUEST TO | [phone] | | | | | | SURGERY | | | | | | | PROJECT INTERN | | | | | | | CA | | | | | | | AMPUTATION | | | | | | | LOW LEG THRU | | | | | | | TIB/FIB | | | + +--------+ + + [...] + + | 02/05/ | Office | [facility] | Lynda Basurto, | 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 | & Rehabilitation | [address] | ([facility]) (Primary Dx) | | | | [address] | [facility] | | | | | Mailcode: CH12A | [place], [place] | | | | | [facility] | [address] | | | | | and Healing | [phone] | | | | | [place], [place] | | | | | | [address] | | | | | | [phone] | | | +--------+---------+ + + + [...] Pressure | 140/88 | 02/05/2018 2:42 PM PDT | + + + + | Pulse | 96 | 02/05/2018 2:42 PM PDT | + + + + | Temperature | 36.9 C (98.4 F) | 02/05/2018 2:42 PM PDT | + + + + | Respiratory Rate | 36 | 02/05/2018 2:42 PM PDT | + + + + | Oxygen Saturation | 100% | 02/05/2018 2:42 PM PDT | + + + + | Inhaled Oxygen | - | - | | Concentration | | | + + + + | Weight | 139.7 kg (308 lb) | 02/05/2018 2:42 PM PDT | + + + + | Height | - | - | + + + + | Body Mass Index | 46.83 | 02/05/2018 2:42 PM PDT | + + + + in this encounter Progress Notes Lynda Basurto [...] spent counseling the patient regarding need for amputation.in this encounter Plan of Treatment +--------+ + + + + | Date | Type | Specialty | Care Team | Description | +--------+ + + + + | 04/24/ | Appointment | Hematology & | Nurse, Hem Starter | | | 2018 | | Oncology | [address] | | | | | | [place] [address] | | +--------+ + + + + | 04/24/ | Office | Hematology & | Annie Gannon, | | | 2017 | Visit | Oncology | AGACNP,[employer]ER [address] | | | | | [address] | | | | | | [place], [place] | | | | | | [address] | | | | | | [phone] | | | | | | | | +--------+ + + + + | 04/24/ | Hospital | Adult Acute Care | Savanna Mari, | | | 2018 | Encounter | | [address] | | | | | | [place], [place] | | | | | | [address] | | | | | | [phone] | | | | | | | | +--------+ + + + + | 05/15/ | Appointment | Hematology & | | | | 2017 | | Oncology | | | +--------+ + + + + | 05/15/ | Office | Hematology & | Sandra Patel MD | | | 2017 | Visit | Oncology | [address] | | | | | | [place], [place] | | | | | | [address] | | | | | | [phone] | | | | | | | | +--------+ + + + + as of this encounter Results TYPE AND SCREEN (02/05/2018 4:03 PM) + + + | Specimen | Performing Laboratory | + + + | Blood | | + + + + + | Narrative | + + | The following orders were created for panel order TYPE AND SCREEN. | | Procedure | | Abnormality Status | | --------- | | ------ ABO & RH | | TYPE[[id number]] F | | inal result ANTIBODY | | SCREEN[[id number]] Fin | | al result Please view [...] | ------ CBC AND AUTO | | DIFF[[id number]] Abnormal Final | | result Please view [...] | >60 | >60 mL/min | | [facility] | | | + +---------+ + | EGFR NON | >60 | >60 mL/min | | -[facility] | | | + +---------+ + | [...] | + + + | Blood | [facility] [address] [facility] | | | [place] [address] | + + + + + | [...]
--- OUTSIDE RECORDS SUMMARY | ~2018-04-16 | XMS | Encounter Summary ---
Demographics + + + | Address | [address] | | | [place] [address] | + + + | Home Phone [...] Team Providers + +------+ + | Care Press Operator Meat Name | Role | Phone | + +------+ + | Santo Gooden MD | PCP | | + +------+ + Reason for Referral Physical Therapy (Routine) + +--------+ + + + + | Status | Reason | Specialty | Diagnoses / | Referred By | Referred To | | | | | Procedures | Contact | Contact | + +--------+ + + + + | New Request | | Physical | Diagnoses | Cristian | | | | | Therapy | Synovial | PAUL Callaway | | | | | | sarcoma | [address] | | | | | | ([facility]) | [address] Nasc[address] | | | | | | Procedures | Sarahy Conner | | | | | | PHYSICAL | [place], [place] | | | | | | THERAPY | [address] | | | | | | REFERRAL | Phone: | | | | | | PHYSICAL | [phone] | | | | | | THERAPY | Fax: | | | | | | REFERRAL | [phone] | | + +--------+ + + + + Physical Therapy (Routine) +--------+--------+ + + + + | Status | Reason | Specialty | Diagnoses / | Referred By | Referred To | | | | | Procedures | Contact | Contact | +--------+--------+ + + + + | Closed | | Physical | Diagnoses | Levine, | Aarti Pt Chh | | | | Therapy | Synovial | Ladarius L, | [address] | | | | | sarcoma | AGACNP [address] | | | | | (HCC) | [address] | Mailcode: | | | | | Procedures | [address] | [facility] | | | | | PHYSICAL | Rd | for Health | | | | | THERAPY | [place], [place] | and Healing, | | | | | REFERRAL | [address] | 1st floor | | | | | | Phone: | [place], [place] | | | | | | [phone] | [address] | | | | | | Fax: | Phone: | | | | | | [phone] | [phone] | | | | | | | Fax: | | | | | | | [phone] | +--------+--------+ + + + + Consultation (Routine) +--------+--------+ + + + + | Status | Reason | Specialty | Diagnoses / | Referred By | Referred To | | | | | Procedures | Contact | Contact | +--------+--------+ + + + + | Closed | | Orthopedics | Procedures | Abner, | Kellee, | | | | | CONSULT TO | Ladarius Rodgers, | MD Cal | | | | | ADULT | AG[facility]NP [address] | | | | | [address] | [address] | [address] | | | | | ORTHOPEDICS | [address] | [address] [place], | | | | | | | [place] | | | | | | [place], [place] | [address] | | | | | | [address] | Phone: | | | | | | Phone: | [phone] | | | | | | [phone] | Fax: | | | | | | Fax: | [phone] | | | | | | [phone] | | +--------+--------+ + + + + Physical Therapy (Routine) +--------+--------+ + + + + | Status | Reason | Specialty | Diagnoses / | Referred By | Referred To | | | | | Procedures | Contact | Contact | +--------+--------+ + + + + | Closed | | Physical | Diagnoses | Levine, | Aarti Pt Chh | | | | Therapy | Synovial | Ladarius L, | [address] | | | | | sarcoma | AGACNP [address] | | | | | (HCC) | [address] | Mailcode: | | | | | Procedures | [address]am [address] | [facility] | | | | | PHYSICAL | Rd | for Health | | | | | THERAPY | [place], [place] | and Healing, | | | | | REFERRAL | [address] | 1st floor | | | | | | Phone: | [place], [place] | | | | | | [phone] | [address] | | | | | | Fax: | Phone: | | | | | | [phone] | [phone] | | | | | | | Fax: | | | | | | | [phone] | +--------+--------+ + + + + Consultation (Routine) +--------+--------+ + + + + | Status | Reason | Specialty | Diagnoses / | Referred By | Referred To | | | | | Procedures | Contact | Contact | +--------+--------+ + + + + | Closed | | Orthopedics | Procedures | Abner, | Kellee, | | | | | CONSULT TO | Ladarius Rodgers, | MD Cal | | | | | ADULT | AGACNP [address] | [address] | | | | [place]UTEE | [address] | [facility] | | | | | ORTHOPEDICS | [facility] | Rd [place], | | | | | | Rd | [place] | | | | | | [place], [place] | [address] | | | | | | [address] | Phone: | | | | | | Phone: | [phone] | | | | | | [phone] | Fax: | | | | | | Fax: | [phone] | | | | | | [phone] | | +--------+--------+ + + + + [...] + + + + | 02/06/ | Hospital | [facility] [address] | Lynda Basurto, | | | 2018 - | Encounter | [address] | [address] | | | | | ANITA DOVE | [address] | | | 02/11/ | | [place] [address] | [place], [place] | | | 2018 | | [phone] | [address] | | | | | | [phone] | | | | | | | [...] + as of this encounter Discharge Summaries JermainePierreDO - 02/11/2018 12:26 PM PDTFormatting of this note may be different from remedios lin. [facility] DEPARTMENT OF ORTHOPAEDICS & REHABILITATION INPATIENT HOSPITAL DISCHARGE SUMMARY & INTERDISCIPLINARY INSTRUCTIONS Patient: Annika Cage CSN: [id number] Admission Date: 02/06/2018 Discharge Date: 02/11/2018 Attending Physician: Lynda Basurto MD PCP: Santo Gooden MD Service: [facility] Orthopaedics & Rehabilitation Diagnoses Principal Final Diagnosis: Synovial sarcoma, left foot Procedures 02/06/18 Left below-knee amputation Brief Hospital Course Annika Cage was admitted for the procedure(s) described [...] HOSPITAL & HE[facility] SERVICES Orthopedics first at [phone]. Activity Non-weight bearing on left leg. Restrictions: no range of motion restrictions. Encourage to perform extension exercises on left leg. OK to use knee scooter Condition on Discharge Stable Follow-Up Appointments ORTHOPEDICS OUTPATIENT CLINIC: 02/19/2018 2:20 PM Lynda Basurto [facility] Orthopaedics & Rehabilitation [phone] Sarcoma PCP: As needed for any medical [...] administration instructions. - Call Orthopedic Clinic at [phone] if any persistent, localized swelling that does [...] and ask for the orthopaedic surgery resident pinion staker. Additional Post-Op Instructions / What to Expect [...] feel that you will need more, call during business hours in order to get [...] Discharging Provider: Pierre Dean DO Discharging Attending: Lynda Basurto MD Thank you for the opportunity to take care of Annika Cage during this inpatient stay, it has been our pleasure. Pierre Dean DO Orthopedic Surgery Resident Pager [phone] [facility] Department of Orthopaedics & Rehabilitation [address] [place] [address] Mail Code: OP31 [facility] [phone] in this encounter Discharge Instructions Lanette Brantley MSW - 02/07/2018AMPUTEE RESOURCES: http://www.[employer]/new-patient/ampower/Pages/Home.aspx http://www.[employer]/new-patient/ampower/ed-resources/Pages/Mmwlx-bwt-Dabegmebxo.asp x http://www.aokbf4aowe.org.au/news-events/news/xzqyykcfv-ovvvlt-twglhrmqdw-dw-ynup-wvqztiym- vrg-ypfvk-hidzegud MENTAL HEALTH/SUICIDE PREVENTION RESOURCES [facility] is a 24-hour behavioral and mental health services center, providing immediate psychi atric care and a path to recovery for people experiencing a mental health crisis. Address: [facility], [address] [place] [address] Hours: 24 hours/day, 7 days a week, no appointment needed NATIONAL CRISIS LINES 25/03 National Suicide Prevention Lifeline 3-248-810-TALK (4603) Hearing and Speech Impaired 1-203-918-4TTY (4196) 25/03 Mental Health Treatment Referral Line 5-222-235-HELP (6610) [facility] For emergencies or life threatening situations, please call [facility] Mental Health Crisis Line [phone] (24 hours a day, 7 days a week) [facility] Mental health services for adults, children, and families; walk-ins welcome. Access informa tion and referral line for [facility] services in housing, recovery and assistance. Address: [facility]/Referral service [address] [place] [address] (Near [address] [place] [address]) [place], [address] Transit: [employer] bus #4 Hours: 7 a.m.-10:00 p.m, 7 [...] + as of this encounter Progress Notes Yasmene Dorman NP - 02/11/2018 9:59 AM PDTAPS [...] Practitioner Acute Pain Service /[facility] [address] [place] [address] Pierre Dean DO - 02/11/2018 6:46 AM PDTFormatting of this note may be different from remedios lin. [facility] DEPARTMENT OF ORTHOPAEDICS & REHABILITATION PROGRESS NOTE Patient: Annika Cage Encounter Date: 02/10/2018 Admitted: 02/06/2018 Attending Physician: Lynda Basurto MD HD# 5 Orthopedic Diagnose(s): - Left foot synovial sarcoma Procedure / Procedure Date: 02/06/2018 - Left below knee amputation Subjective: Interval Hx: Doing well. Catheter has been off all night and patient reports never needing to bolus. Angy ld like to go home today. Objective: Last [...] Residual limb sensate and well perfused A/P: Annika Cage is a 32 y.o. female [...] Pierre Dean DO Orthopedic Surgery Resident Pager [phone] Pierre Dean DO - 02/10/2018 11:43 AM PDTFormatting of this note may be different from remedios lin. [facility] DEPARTMENT OF ORTHOPAEDICS & REHABILITATION PROGRESS NOTE Patient: Annika Cage Encounter Date: 02/09/2018 Admitted: 02/06/2018 Attending Physician: Lynda Basurto MD HD# 4 Orthopedic Diagnose(s): - [...] Residual limb sensate and well perfused A/P: Annika Cage is a 32 y.o. female [...] Pierre Dean DO Orthopedic Surgery Resident Pager [phone] Jesusita Mccullough NP - 02/10/2018 11:24 AM [...] Ms. Cage's pain score at rest is 4/10. With activity, her pain score is 6/10. Specific ac tivities that exacerbate Ms. Cage's [...] team provider Thania GONZALEZ and Srikanth Foster NP Orthopedic Surgery . Jesusita Mccullough NP Adult Pain Service Pager [phone] Team Pager [phone] Pierre Dean DO - 02/09/2018 1:34 PM PDTFormatting of this note may be different from remedios lin. [facility] DEPARTMENT OF ORTHOPAEDICS & REHABILITATION PROGRESS NOTE Patient: Annika Cage Encounter Date: 02/09/2018 Admitted: 02/06/2018 Attending Physician: Lynda Basurto MD HD# 3 Orthopedic Diagnose(s): - [...] Residual limb sensate and well perfused A/P: Annika Cage is a 32 y.o. female [...] Pierre Dean DO Orthopedic Surgery Resident Pager [phone] John Burciaga - 02/09/2018 12:59 PM PDTTransthoracic [...] orals. Once on orals will d/c home. Emily Lewis MD - 02/09/2018 8:01 AM PDTFormatting of this note may be dif ferent from the original. INPATIENT ADULT PAIN SERVICE PERIPHERAL NERVE BLOCK PROGRESS NOTE 02/09/2018 Author: EMILY GAMBLE MD Adult Pain Service Attending Physician: Emily Hall MD Main complaint: Acute postoperative pain. [...] and summary of old medical records (source: [employer]), as summarized in the body of the note. Discussion of case with another healthcare provider nurse. Please page APS #[phone] with questions and concerns. MD Thanh SHEA Julio A, MD - 02/08/2018 9:45 AM PDTFormatting of this note may be dif ferent from the original. INPATIENT ADULT PAIN SERVICE PERIPHERAL NERVE BLOCK PROGRESS NOTE 02/08/2018 Author: EMILY GAMBLE MD Adult Pain Service Attending Physician: Emily Hall MD Main complaint: Acute postoperative pain. [...] and summary of old medical records (source: [employer]), as summarized in the body of the note. Discussion of case with another healthcare provider nurse. Please page APS #[phone] with questions and concerns. MD aSndra SHEA, Hayde Mckeon MD - 02/08/2018 9:05 AM PDTFormatting of this note may be different from nikunj lin. [facility] DEPARTMENT OF ORTHOPAEDICS & REHABILITATION PROGRESS NOTE Patient: Annika Cage Encounter Date: 02/06/2018 Admitted: 02/06/2018 Attending Physician: Lynda Basurto MD HD# 2 Orthopedic Diagnose(s): - [...] Residual limb sensate and well perfused A/P: Annika Cage is a 32 y.o. female [...] discharge. HAYDE FLORES MD Orthopaedics PGY-3 Pager: [phone], MD Lynda - 02/08/2018 8:57 AM PDTPt sleeping PE: Ht 1.727 m (5' 8"), Wt 139.7 kg (308 lb), BP 121/61, Pulse 89, Temperature 36.9 C (98.4 F), RR 18, SpO2 98%, BMI 46.83 kg/(m^2). dsg c/d/I A/P: s/p L BKA -OOB -sciatic catheter per APS -likely dc SaturdayHayde Flores MD - 02/07/2018 8:51 AM PDTFormatting of this note may be different from the original. [facility] DEPARTMENT OF ORTHOPAEDICS & REHABILITATION PROGRESS NOTE Patient: Annika Cage Encounter Date: 02/06/2018 Admitted: 02/06/2018 Attending Physician: Lynda Basurto MD HD# 1 Orthopedic Diagnose(s): - [...] Residual limb sensate and well perfused A/P: Annika Cage is a 32 y.o. female [...] discharge. HAYDE FLORES MD Orthopaedics PGY-3 Pager: [phone] Beckford DNP - 02/07/2018 7:54 AM PDTFormatting of this note may be d ifferent from the original. INPATIENT ADULT PAIN SERVICE PERIPHERAL NERVE BLOCK INITIAL VISIT NOTE Date of Service: 02/07/2018 Author: Madiha Beckford DNP Requesting Provider: Service: Orthopedic Surgery Main Complaint: acute postoperative pain Block day # 1. Annika Cage is POD# 1. 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 Cage complains of right sided leg pain. Ms. Yee pain sc ore at rest is "increaseds chikis working with PT" previously "comfortable" Specific activiti es that exacerbate Annika Yee pain include most activities. Ms. Yee pain is impr davis by PNB. Ms. Yee is satisfied with [...] on file Social History Narrative Works in [employer] at a [employer] near [place]. No kids. Lives with her mother Rose. [...] General appearance: healthy, alert and cooperative Assessment: Annika Cage is a 32 y.o. 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 Ms. Cage rates her pain relief as good. My personal asses sment is concordant with this evaluation. She notes that she has had a mild increase in pain this morning, which is to be expected af ter single shot nerve block. Annika would like to minimize opioids as she [...] by primary care team. Madiha Rebollar DNP, WOOD HEEL CEMENTER-C Adult Pain Service /[facility] [address] [place] [address] Patricio Giles MD - 02/07/2018 7:18 AM PDTGold Surgery Brief Progress Note ID: Annika Cage is a 32 y.o. 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 No pneumothorax. A/P Uneventful port a cath placement. OK to use. Contact gold surgery with questions or concerns Remainder of care per primary team Dior Giles MD General Surgery [id number] MD - 02/07/2018 6:51 AM PDTPt says [...] note may be different from the original. [facility] DEPARTMENT OF ORTHOPAEDICS & REHABILITATION PROGRESS NOTE Patient: Annika Cage Encounter Date: 02/06/2018 Admitted: 02/06/2018 Attending Physician: Lynda Basurto MD HD# 0 Orthopedic Diagnose(s): - [...] Residual limb sensate and well perfused A/P: Annika Cage is a 32 y.o. female with the above noted diagnose(s). Doing well po st-op - Immobility due to injury/illness: - NWMarcela LLE - PT/OT ordered - Pain: Maintain [...] discharge. HAYDE FLORES MD Orthopaedics PGY-3 Pager: [phone] this encounter Plan of Treatment +--------+ + + + + | Date | Type | Specialty | Care Team | Description | +--------+ + + + + | 04/24/ | Appointment | Hematology & | NurseDarwin Starter | | | 2017 | | Oncology | [address] [facility] | | | | | | [place] [address] | | +--------+ + + + + | 04/24/ | Office | Hematology & | Annie Gannon, | | | 2017 | Visit | Oncology | [facility] [address] | | | | | [address] | | | | | | [place], [place] | | | | | | [address] | | | | | | [phone] | | | | | | | | +--------+ + + + + | 04/24/ | Hospital | Adult Acute Care | Savanna Mari, | | | 2017 | Encounter | | [address] | | | | | | [place], [place] | | | | | | [address] | | | | | | [phone] | | | | | | | [...] [address] | | | | | | [place], [place] | | | | | | [address] | | | | | | [phone] | | | | | | | [...] | + + + | | [facility] [address] [place] [address] | | | [place] [address] | + + + + + | Narrative | + + | [facility] Adult Echocardiography Laboratory | | [address] [place], [place] [address] Ph: | | Pt Name: ANNIKA CAGE Study | | Date/Time 02/09/2018 / 11:45:04 AM | | Most recent prior: - Acc #: [id number] No. previous echos: 0 | | : 1985 32 years Heart Rate: 78 bpm Height: 68.0 | | in Blood Pressure: 121/61 mm/Hg Weight: 308.0 | | lb Gender: F BSA: 2.46 | | m2 Order ID: [id number] Senior Sales Executive: | | John Gonzalez MA, [facility] Senior Sales Executive 2: Referring Provider: Lynda Basurto Study | | Location: 9K Modalities Performed: 2D, [...] and indexed values Report electronically signed by: [id number] Justin | | Malachi DIAS (02/09/2018, 3:09:17 PM) Final | + + + + | Procedure Note | + + | Interface, Ecg Results - 02/09/2018 3:09 PM [facility] | | [facility] Echocardiography Laboratory [address] [place] [address] | | [place], [place] [address] Pt Name: ANNIKA WILKERSON | | CAGE Study Date/Time 02/09/2018 / 11:45:04 AMMRN: [id number] Most | | recent prior: -Acc #: [id number] No. previous echos: 0DOB: 1985 32 | | years Heart Rate: 78 bpmHeight: 68.0 in Blood Pressure: 121/61 | | mm/HgWeight: 308.0 lb Gender: FBSA: 2.46 m2 | | Order ID: [id number] Senior Sales Executive: John Gonzalez MA, RDCSSonographer | | 2:Referring [...] values Report | | electronically signed by: [id number] Justin Ly MD (02/09/2018, 3:09:17 PM) | [...] | | | |Report electronically signed by: [id number] Justin Ly MD (02/09/2018, 3:09:17 | |PM) | | | | | | | | Final | + + PROCEDURE NOTE (02/07/2018 11:22 AM)X-RAY TIBIA & FIBULA 2 VIEWS LT (02/07/2018 8:57 AM) + + + | Specimen | Performing Laboratory | + + + | | [facility] RADIOLOGY VOICE RECOGNITION 2 | + [...] | + + + | Blood | [facility]OR[facility]ORY SERVICES, CORE [address] [place] [address] | | | [place] [address] | + + + + + | [...] | | ------ CBC (HEMOGRAM) | | ONLY[[id number]] Abnormal Final | | result Please view [...] | >60 | >60 mL/min | | BELARUSIAN | | | + +---------+ + | EGFR NON | >60 | >60 mL/min | | -BELARUSIAN | | | + +---------+ + | [...] | + + + | Blood | [facility], CORE [address] | | | [place] [address] | + + + + + | [...] MD Preoperative | | Diagnosis: need for [facility] central venous access Postoperative Diagnosis: same | [...] of Service: 02/06/2018 | | Attending Surgeon: Lynad Basurto MD Care Center Manager(s): Hayde | | Mike Flores MD. Preoperative [...] as do other appropriate therapies for an amputation.Lynda Basurto, | | DARIUS/SHANIAD: 02/06/2018 15:36:23DT: 02/06/2018 19:40:30Job #: [id number] | + + X-RAY PORTABLE CHEST 1 VIEW (02/06/2018 4:54 PM) + + + | Specimen | Performing Laboratory | + + + | | [facility] RADIOLOGY VOICE RECOGNITION 2 | + + + + + | Narrative | + + | EXAM: OH CHEST 1 VIEW HISTORY: s/p port placement [...] Interface - 02/06/2018 5:11 PM PDT EXAM: OH CHEST 1 | | VIEW HISTORY: s/p [...] | Hayde Flores MD 02/06/2018 3:58 PM [facility] | | Department of Orthopaedics & Rehabilitation BRIEF OPERATIVE NOTE | | Patient: Annika Cage | | | | CSN: [id number] | | Date: 02/06/2018 | | Attending Surgeon: Lynda | | MD Sb Care Center Manager(s): 1. HAYDE FLORES MD Preoperative | | [...] 10. Anticipated discharge: Likely home Saturday HAYDE Mckeon | | MD SANDRA [facility] | | Department of Orthopaedics & Rehabilitation [address] [facility] Mail Code: | | OP31 [facility] [address] Pager: [phone] | + + CAPILLARY BLOOD GLUCOSE (NO CHG), POC (02/06/2018 3:53 PM) + +-------+ + | Component | Value | Ref Range | + +-------+ + | BLOOD GLUCOSE, POC | 79 | 70 - 99 mg/dL | + +-------+ + + + + | Specimen | Performing Laboratory | + + + | | [facility], POINT OF CARE TESTS [address] [facility] | | | [place] [address] | + + + SURGICAL PATHOLOGY (02/06/2018 [...] | | | Comment: See prior biopsy ([id number]). | | | | Case seen by:Edgard [...] | | | necrosis. See prior biopsy [id number]). | | | | Please correlate clinically. | | | | Comment(s): Extensive fibrinopurulent, necrotic material is p resent, not indicative of true tumor necrosis. See prior biopsy [id number]). Please correlate clinically. | | + + + + | Gross Description | Received is one specimen fresh in a | | | | container labeled with the patient's name | | | | (initials KSG) and medical record number | | | | [id number]. A. Left leg, amputation: Received | | [...] | | | margin at the stitch. Driving Teacher | | | | sections are submitted. [...] ulceration | | | | and underlying ymuroQ13-F64, composite | | | | section of posterior tumor myiausuZ00-I59, | | | | additional composite section of | | | | dngplL88-U48, additional composite section | | | | of jeyuqD11-Z34, additional composite | | | | section of vdtkhM19-M79, additional | | | | composite section of tumor A31-A32, | | | | composite section of anterior cjrmfI71, | | | | uninvolved skin and soft tissue adjacent to | | | | anterior rizeuR40, uninvolved skin and | | | | soft tissue adjacent to posterior ssxyiN70, | | | | underlying bone with attached soft | | | | gaumofA03, navicular and medial cuneiform | | | | bones and zpdfgP95, navicular bone and | | | | [...] characteristics determined | | | | by [employer]. It has not been | | | [...] + + | Tissue - Leg | [facility] DEPARTMENT OF PATHOLOGY [address] | | | [place] [address] | + + + PROCEDURE NOTE (02/06/2018 2:20 PM) + + | Narrative | + + | Macie Loredo MD 02/06/2018 2:37 PM PATIENT NAME: Annika SMITH | | MR#: [id number] : 1985 Date: 02/06/2018 Attending Surgeon: Macie Loredo, | | Care Center Manager(s): Jan Giles MD Preoperative Diagnosis(es): 1. | [...] recovery | | unit. Macie Loredo MD Shredding Specialist Division of Surgical Oncology | | [facility] | + + X-RAY FLUOROSCOPY IN OR [...] POINT OF CARE TESTS [address] | | | [place] [address] | + + + INTRAPROCEDURE IMAGING (02/06/2018 [...] + CARDIOLOGY (02/06/2018)in this encounter Visit Diagnoses + + | Diagnosis | + + | Synovial sarcoma (HCC) - Primary | + + | 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, site unspecified | + + | Mass of left foot | + + Admitting Diagnoses + + | Diagnosis | [...] | | +---+---+ + +-------+ +--------+---+---+ | acetaminophen (TYLENOL) tablet | Given | 02/06/2018 | 650 mg | | | | 325-650 mg 325-650 mg, oral, | | 20:35 | | | | | EVERY 4 HOURS NEEDED, Starting | | PDT | | | | | Bettie 02/06/18 at 8, Until Fri | | | | | | | 02/07/18 at 1225, mild pain, | | | | | | | multimodal pain control | | | | | | + +-------+ +--------+---+---+ +-------+ +--------+---+---+ | Given | 02/07/2018 | 650 mg | | | | | 05:36 | | | | | | PDT | | | | +-------+ +--------+---+---+ + +---+ | | | + +---+ | acetaminophen (TYLENOL) tablet | | | 1 dose, Starting Bettie 02/06/18 at | | | 2030, Until Bettie 02/06/18 at 2035 | | + +---+ | | | + +---+ + +-------+ +--------+---+---+ | aspirin EC tablet [...] +--------+---+---+ +---+---+ | | | +---+---+ + +---------+ +-----+-------+---+ | ceFAZolin IV 2 gram in dextrose | New Bag | 02/06/2018 | 2 g | 200 | | | (RTU) 2 g, intravenous, EVERY 8 | | 23:21 | | mL/hr | | | HOURS, 2 doses, First dose on | | PDT | | | | | Bettie 02/06/18 at 2145, Last dose on | | | | | | | 02/07/18 at 0545 | | | | | | + +---------+ +-----+-------+---+ +---------+ +-----+-------+---+ | New Bag | 02/07/2018 | 2 g | 200 | | | | 05:32 | | mL/hr | | | | PDT | | | | +---------+ +-----+-------+---+ +---+---+ | | | +---+---+ + +-------+ +-------+---+---+ | citalopram (CELEXA) tablet 40 | Given | 02/08/2018 | 40 mg | | | | mg 40 mg, oral, DAILY, First | | 21:09 | | | | | dose on [facility] 02/06/18 at 1745, Until | | [...] clonazePAM (KLONOPIN) tablet 1 | Given | 02/06/2018 | 1 mg | | | | mg 1 mg, oral, ONCE, 1 dose, Fri | | 23:45 | | | | | 02/07/18 at 0000 | | PDT | | | | [...] | | +---+---+ + +-------+ +-------+---+---+ | diphenhydrAMINE (BENADRYL) | Given | 02/08/2018 | 25 mg | | | | capsule 25 mg 25 mg, oral, EVERY | | 16:24 | | | | | 6 HOURS NEEDED, Starting Sat | | PDT | | | | | 02/08/18 at 1420, Until 02/10/18 | | | | | | | at 1127, itching | | | | | | + +-------+ +-------+---+---+ +-------+ +-------+---+---+ | Given | 02/08/2018 | 25 mg | | | | | 22:22 | | | | | | PDT | | | | +-------+ +-------+---+---+ | Given | | 25 mg | | | | | 8 20:53 | | | | | | PDT | | | | +-------+ +-------+---+---+ +---+---+ | | | +---+---+ + +-------+ +--------+---+---+ | fentaNYL (SUBLIMAZE) injection | Given | 02/06/2018 | 50 mcg | | | | 50 mcg 50 mcg, intravenous, | | 18:00 | | | | | POSTPROCEDURE PRN, 4 doses, | | PDT | | | | | Starting [facility] 02/06/18 at 1605, | | | | | | | Until Discontinued, severe pain | | | | | | | while in Phase I Recovery | | | | | | + +-------+ +--------+---+---+ +-------+ +--------+---+---+ | Given | 02/06/2018 | 50 mcg | | | | | 18:36 | | | | | | PDT | | | | +-------+ +--------+---+---+ | Given | 02/06/2018 | 50 mcg | | | | | 18:49 | | | | | | PDT | | | | +-------+ +--------+---+---+ +---+---+ | | | +---+---+ + +-------+ +--------+---+---+ | gabapentin (NEURONTIN) capsule | Given | 02/06/2018 | 300 mg | | | | 300 mg 300 mg, oral, THREE TIMES | | 20:37 | | | | | DAILY, First dose on Sat02/06/18 | | PDT | | | | | at 2200, Until Discontinued | | | | | | + +-------+ +--------+---+---+ +-------+ +--------+---+---+ | Given | 02/07/2018 | 300 mg | | | | | 10:07 | | | | | | PDT | | | | +-------+ +--------+---+---+ +---+---+ | | | +---+---+ + +-------+ +--------+---+---+ | gabapentin (NEURONTIN) capsule | Given | 02/07/2018 | 300 mg | | | | 300 mg 300 mg, oral, TWICE | | 21:25 | | | | | DAILY, First dose on Sat02/07/18 | | PDT | | | | | at 2100, Until Discontinued | | | | | | + +-------+ +--------+---+---+ +-------+ +--------+---+---+ | Given | 02/08/2018 | 300 mg | | | | | 08:18 | | | | | | PDT | | | | +-------+ +--------+---+---+ +---+---+ | | | +---+---+ + +-------+ +--------+---+---+ | gabapentin (NEURONTIN) capsule | Given | | 300 mg | | | | 300 mg 300 mg, oral, ONCE, 1 | | 8 11:55 | | | | | dose, 02/10/18 at 1130 | | PDT | | | | + +-------+ +--------+---+---+ +---+---+ | | | +---+---+ + +-------+ +--------+---+---+ | gabapentin (NEURONTIN) capsule | Given | 02/07/2018 | 600 mg | | | | 600 mg 600 mg, oral, DAILY, | | 13:01 | | | | | First dose on Sat02/07/18 at 1300, | | PDT | | | | | Until Discontinued | | | | | | + +-------+ +--------+---+---+ +---+---+ | | | +---+---+ + +-------+ +--------+---+---+ | gabapentin (NEURONTIN) capsule | Given | | 600 mg | | | | 600 mg 600 mg, oral, THREE TIMES | | 8 15:29 | | | | | DAILY, First dose on 02/08/18 | | PDT | | | | | at 1600, Until Discontinued | | | | | | + +-------+ +--------+---+---+ +-------+ +--------+---+---+ | Given | | 600 mg | | | | | 8 20:53 | | | | | | PDT | | | | +-------+ +--------+---+---+ | Given | | 600 mg | | | | | 8 08:48 | | | | | | PDT | | | | +-------+ +--------+---+---+ +---+---+ | | | +---+---+ + +-------+ +--------+---+---+ | gabapentin (NEURONTIN) capsule | Given | | 900 mg | | | | 900 mg 900 mg, oral, THREE TIMES | | 8 22:26 | | | | | DAILY, First dose on Sat02/10/18 | | PDT | | | | [...] +---+ | | | + +---+ | gabapentin (NEURONTIN) capsule | | | 1 dose, Starting Bettie 6/7/18 at | | | 2031, Until [facility] 02/06/18 at 2036 | | + +---+ | | | + +---+ + +-------+ +-------+---+---+ | hydroCHLOROthiazide | Given [...] +--------+---+---+ | HYDROmorphone (DILAUDID) | Given | 02/06/2018 | 0.2 mg | | | | injection 0.2-0.5 mg 0.2-0.5 mg, | | 17:29 | | | | | intravenous, POSTPROCEDURE PRN, | | PDT | | | | | Starting [facility] 02/06/18 at 1605, | | | | | | | Until [facility] 02/06/18 at 2143, | | | | | | | moderate pain while in Phase I | | | | | | | Recovery | | | | | | + +-------+ +--------+---+---+ +-------+ +--------+---+---+ | Given | 02/06/2018 | 0.3 mg | | | | | 18:10 | | | | | | PDT | | | | +-------+ +--------+---+---+ | Given | 02/06/2018 | 0.5 mg | | | | | 19:05 | | | | | | PDT | | | | +-------+ +--------+---+---+ +---+---+ | | | +---+---+ + +-------+ +--------+---+---+ | HYDROmorphone (DILAUDID) | Given | 02/08/2018 | 0.3 mg | | | | injection 0.2-0.6 mg 0.2-0.6 mg, | | 09:19 | | | | | intravenous, EVERY 2 HOURS | | PDT | | | | | NEEDED, Starting [facility] 02/06/18 at | | | | | | | 2144, Until Sat02/11/18 at 2223, | | | | | | | severe pain | | | | | | + +-------+ +--------+---+---+ +---+---+ | | | +---+---+ + +---------+ +--------+---+---+ | lactated Ringers IV 500 mL, | New Bag | 02/06/2018 | 500 mL | | | | intravenous, ONCE, 1 dose, [facility] | | 18:45 | | | | | 02/06/18 at 1845 | | PDT | | | | + +---------+ +--------+---+---+ +---+---+ | | | +---+---+ + +-------+ +-------+---+---+ | loratadine (CLARITIN) tablet 10 | Given | | 10 mg | | | | mg 10 mg, oral, DAILY, First | | 8 07:47 | | | | | dose on [facility] 02/06/18 at 1745, Until | | [...] 23:21 | | | | | Starting [facility] 02/06/18 at 2144, | | PDT | | | | | Until Sat02/11/18 at 2223, | | | [...] | | | | | | | 2027, Until 02/11/18 at 3, | | | | | | | [...] +---+ | | | + +---+ | oxyCODONE (immediate release) | | | (ROXICODONE) tablet 1 dose, | | | Starting Bettie 02/06/18 at 2047, | | | Until Sat02/06/18 at 2049 | | + +---+ | | | + +---+ + +-------+ +------+---+---+ | polyethylene glycol (MIRALAX) [...] | | | +---+---+ + + + +---+---------+---+ | ropivacaine (PF) 0.2 % in NaCl | Rate/Dos | | | 2 mL/hr | | | 0.9 % peripheral nerve block | e Change | 8 17:23 | | | | | (CADD PUMP) injection, | | PDT | | | | | CONTINUOUS, Starting Sat02/06/18 | | | | | | | at 2045, Until Sat02/11/18 at | | | | | | | 1005 | | | | | | + + + +---+---------+---+ + + +---+---------+---+ | Rate/Dose Verify | | | 2 mL/hr | | | | 8 20:16 | | | | | | PDT | | | | + + +---+---------+---+ | Rate/Dose Change | | | 0 mL/hr | | | | 8 21:10 | | | | | | PDT | | | | + + +---+---------+---+ +---+---+ | | | +---+---+ + +-------+ [...] | | +---+---+ + +-------+ +------+---+---+ | sulfur hexafluoride | Given | | 5 mL | | | | microspheres (LUMASON) IV 1-2 mL | | 8 13:01 | | | | | 1-2 mL, intravenous, ONCE, 1 | | PDT | | | | | dose, 02/09/18 at 1345 | | | | | | + +-------+ +------+---+---+ +---+---+ | | | +---+---+ in this encounter
--- OUTSIDE RECORDS SUMMARY | ~2018-04-16 | XMS | Encounter Summary ---
Demographics + + + | Address | [address] | | | [place] [address] | + + + | Home Phone [...] Author + + + | Author | [facility] | + + + | Organization | [facility] | + + + | Address | Unknown | + + + | Phone | Unavailable | + + + Support + + +---------+ + | Name | Relationship | Address | Phone | + + +---------+ + | ROSE BOWENS | ECON | Unknown | | + + +---------+ + Care Team Providers + +------+ + | Care Brake Press Operator Name | Role | Phone | [...] | [address] | [facility] ([facility] | | | | [facility] | [place], [place] | and labs) | | | | [address] | [address] | | | | | Mailcode: [facility] | [phone] | | | | | [facility] | | | | | | and Healing, [facility] | | | | | | Floor [place], [place] | | | | | | [address] | | | | | | [phone] | | | +--------+ + + + [...] Jackman | | | | | | [place] [address] | | +--------+ + + + + | 04/24/ | Office | Hematology & | Annie Gannon, | | | 2017 | Visit | Oncology | AGACNP,SATELLITE DISH TECHNICIAN [address] | | | | | [address] | | | | | | [place], [place] | | | | | | [address] | | | | | | [phone] | | | | | | | | +--------+ + + + + | 04/24/ | Hospital | Adult Acute Care | Savanna Mari, | | | 2017 | Encounter | | [address] | | | | | | [place], [place] | | | | | | [address] | | | | | | [phone] | | | | | | | [...] Scott | | | | | | [place], [place] | | | | | | [address] | | | | | | [phone] | | | | | | | | +--------+ + + + + as of this encounter Visit Diagnoses + + | Diagnosis | + + | Synovial sarcoma (HCC) - Primary | + + | 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
--- OUTSIDE RECORDS SUMMARY | ~2018-04-16 | XMS | Encounter Summary ---
Demographics + + + | Address | [address] | | | [place] [address] | + + + | Home Phone [...] Author + + + | Author | [facility] | + + + | Organization | [facility] | + + + | Address | Unknown | + + + | Phone | Unavailable | + + + Support + + +---------+ + | Name | Relationship | Address | Phone | + + +---------+ + | ROSE BOWENS | ECON | Unknown | | + + +---------+ + Care Team Providers + +------+ + | Care Project Surveyor Name | Role | Phone | + [...] | | 2017 | | Oncology at [facility] | | | | | | [facility] | | | | | | [address] | | | | | | Mailcode: CH7M | | | | | | [facility] | | | | | | and Healing, 7th | | | | | | Floor [place], [place] | | | | | | [address] | | | | | | [phone] | | | +--------+ + + + [...] Road | | | | | | [place] [address] | | +--------+ + + + + | 04/24/ | Office | Hematology & | Annie Gannon, | | | 2017 | Visit | Oncology | ROME,RETROFIT INSTALLER [address] | | | | | [address] | | | | | | [place], [place] | | | | | | [address] | | | | | | [phone] | | | | | | | | +--------+ + + + + | 04/24/ | Hospital | Adult Acute Care | Savanna Mari, | | | 2017 | Encounter | | MD [address] | | | | | | [place], [place] | | | | | | [address] | | | | | | [phone] | | | | | | | [...] Scott | | | | | | [place], [place] | | | | | | [address] | | | | | | [phone] | | | | | | | | +--------+ + + + + as of this encounter Visit Diagnoses Not on filein this encounter"
--- OUTSIDE RECORDS SUMMARY | ~2018-04-16 | XMS | Encounter Summary ---
Demographics + + + | Address | [address] | | | [place] [address] | + + + | Home Phone [...] | + + +---------+ + | ROSE BOWNES | ECON | Unknown | | + + +---------+ + Care Team Providers + +------+ + | Care Ekg Monitor Tech Name | Role | Phone | + +------+ + | Santo Gooden MD | PCP | | + +------+ + Reason for Visit + + + | Reason | Comments | + + + | Medical nutrition | Nutrition Referral | | therapy | | + + + Encounter Details +--------+ + + + + | Date | Type | Department | Care Team | Description | +--------+ + + + + | 01/29/ | Telephone | Hematology/Medical | Torres, | Medical nutrition | | 2018 | | Oncology at [facility] 7th | [address] | therapy (Nutrition | | | | Floor [address] | [facility] | Referral) | | | | [address] Mailcode: | [place] [place] | | | | | [facility] | [address] | | | | | Health and Healing | [phone] | | | | | [facility] [place] | | | | | | [address] | | | | | | [phone] | | | +--------+ + + + [...] Jackman | | | | | | [place] [address] | | +--------+ + + + + | 04/24/ | Office | Hematology & | Annie Gannon, | | | 2017 | Visit | Oncology | AGACNP,DEVELOPMENT ENG [address] | | [address] | | | | | | [place], [place] | | | | | | [address] | | | | | | [phone] | | | | | | | | +--------+ + + + + | 04/24/ | Hospital | Adult Acute Care | Savanna Mari, | | | 2017 | Encounter | | MD [address] | | | | | | [place], [place] | | | | | | [address] | | | | | | [phone] | | | | | | | | +--------+ + + + + | 05/15/ | Appointment | Hematology & | | | | 2017 | | Oncology | | | +--------+ + + + + | 05/15/ | Office | Hematology & | Sandra Patel MD | | | 2018 | Visit | Oncology | [address] | | | | | | [place], [place] | | | | | | [address] | | | | | | [phone] | | | | | | | | +--------+ + + + + as of this encounter Visit Diagnoses Not on filein this encounter"
--- OUTSIDE RECORDS SUMMARY | ~2018-04-16 | XMS | Encounter Summary ---
Demographics + + + | Address | [address] | | | [place] [address] | + + + | Home Phone [...] + + + | Author | [facility] | + + + | Organization | [facility] | + + + | Address | Unknown | + + + | Phone | Unavailable | + + + Support + + +---------+ + | Name | Relationship | Address | Phone | + + +---------+ + | ROSE BOWENS | ECON | Unknown | | + + +---------+ + Care Team Providers + +------+ + | Care Wood Milling Machine Hand Name | Role | Phone | + +------+ + | Santo Gooden MD | PCP | | + +------+ + Encounter Details +--------+ + + + + | Date | Type | Department | Care Team | Description | +--------+ + + + + | 03/24/ | Procedure | 6A Intra Op [facility] | | | | 2017 | Pass | [facility] | | | | | | Admitting Desk | | | | | | Located on the 9th | | | | | | floor [address] [facility] | | | | | | [facility] | | | | | | [place], [place] | | | | | | [address] | | | +--------+ + + + [...] | | Oncology | [address] [facility] | | | | | | [place] [address] | | +--------+ + + + + | 04/24/ | Office | Hematology & | Annie Gannon, | | | 2017 | Visit | Oncology | [facility],RN PRIOR AUTHORIZATION [address] | | | | | | [address] | | | | | | [place], [place] | | | | | | [address] | | | | | | [phone] | | | | | | | | +--------+ + + + + | 04/24/ | Hospital | Adult Acute Care | Savanna Mari, | | | 2017 | Encounter | | [address] | | | | | | [place], [place] | | | | | | [address] | | | | | | [phone] | | | | | | | [...] Scott | | | | | | [place], [place] | | | | | | [address] | | | | | | [phone] | | | | | | | | +--------+ + + + + as of this encounter Visit Diagnoses Not on filein this encounter"
--- OUTSIDE RECORDS SUMMARY | ~2018-04-16 | XMS | Encounter Summary ---
Demographics + + + | Address | [address] | | | [place] [address] | + + + | Home Phone [...] Team Providers + +------+ + | Care Community Development Coordinator Name | Role | Phone | [...] | 2018 | Encounter | Oncology at [facility] | [address] | | | | | [address] | [place] [address] | | | | | Mailcode: [facility] | | | | | | [facility] | | | | | | and [facility], | | | | | | [place], [place] | | | | | | [address] | | | | | | [phone] | | | +--------+ + + + [...] line | | | | | | ([facility]) | nausea/vomiting). | | | | [...] for | | | | | | ([facility]) | nausea/vomiting). | | | | [...] of this encounter Progress Notes Siria Dill, ILSA - 03/12/2018 1:20 PM PDTDouble lumen PAC [...] Jackman | | | | | | [place] [address] | | +--------+ + + + + | 04/24/ | Office | Hematology & | Annie Gannon, | | | 2017 | Visit | Oncology | AGACNP,REVENUE INSPECTOR [address] | | | | | [address] | | | | | | [place], [place] | | | | | | [address] | | | | | | [phone] | | | | | | | | +--------+ + + + + | 04/24/ | Hospital | Adult Acute Care | Savanna Mari, | | | 2017 | Encounter | | MD [address] | | | | | | [place], [place] | | | | | | [address] | | | | | | [phone] | | | | | | | [...] Sonia | | | | | | [place], [place] | | | | | | [address] | | | | | | [phone] | | | | | | | [...] | + + + | Blood | [facility], POINT OF CARE TESTS [address] [place], [place] | | | [address] | + + + CBC+DIFF,POC (03/12/2018 2:14 [...] + + | Blood | [facility], POINT OF CARE TESTS [address] [place], [place] | | | [address] | + + + URINE, MICROSCOPIC EXAM [...] | + + + | Urine | [facility], ANTONI [address] | | | [place] [address] | + + + in this encounter Visit Diagnoses + + | Diagnosis | + + | Synovial sarcoma (HCC) | + + | 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
--- OUTSIDE RECORDS SUMMARY | ~2018-04-16 | XMS | Encounter Summary ---
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 | | | | and Healing | [phone] | ([facility]) | | | | [place], [place] | | | | | | [address] | | | | | | [phone] | | | +--------+---------+ + + + [...] Jackman | | | | | | [place] [address] | | +--------+ + + + + | 04/24/ | Office | Hematology & | Annie Gannon, | | | 2017 | Visit | Oncology | [facility],WOLFGANG [address] | | | | | [address] | | | | | | [place], [place] | | | | | | [address] | | | | | | [phone] | | | | | | | | +--------+ + + + + | 04/24/ | Hospital | Adult Acute Care | Savanna Mari, | | | 2017 | Encounter | | [address] | | | | | | [place], [place] | | | | | | [address] | | | | | | [phone] | | | | | | | [...] Scott | | | | | | [place], [place] | | | | | | [address] | | | | | | [phone] | | | | | | | [...]
--- OUTSIDE RECORDS SUMMARY | ~2018-04-16 | XMS | Encounter Summary ---
Demographics + + + | Address | [address] | | | [place] [address] | + + + | Home Phone [...] Author + + + | Author | [facility] | + + + | Organization | [facility] | + + + | Address | Unknown | + + + | Phone | Unavailable | + + + Support + + +---------+ + | Name | Relationship | Address | Phone | + + +---------+ + | ROSE BOWENS | ECON | Unknown | | + + +---------+ + Care Team Providers + +------+ + | Care Financial Examiner Name | Role | Phone | [...] + + | 04/09/ | Hospital | [facility] [address] | Linh Pack, | | | 2018 | Encounter | [address] | [address] | | | | | Road Mailcode: | [place], [place] | | | | | [address] | [address] | | | | | [place], | [phone] | | | | | [place] [address] | | | | | | [phone] | | | +--------+ + + + [...] Jackman | | | | | | [place] [address] | | +--------+ + + + + | 04/24/ | Office | Hematology & | Annie Gannon, | | | 2017 | Visit | Oncology | ROME,IT SALES REPRESENTATIVE [address] | | | | | | [address] | | | | | | [place], [place] | | | | | | [address] | | | | | | [phone] | | | | | | | | +--------+ + + + + | 04/24/ | Hospital | Adult Acute Care | Savanna Mari, | | | 2017 | Encounter | | [address] | | | | | | [place], [place] | | | | | | [address] | | | | | | [phone] | | | | | | | [...] | | | | | | [place], [place] | | | | | | [address] | | | | | | [phone] | | | | | | | | +--------+ + + + + as of this encounter Visit Diagnoses + + | Diagnosis | + + | Synovial sarcoma (HCC) - Primary | + + | 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
--- OUTSIDE RECORDS SUMMARY | ~2018-04-16 | XMS | Encounter Summary ---
Demographics + + + | Address | [address] | | | [place] [address] | + + + | Home Phone [...] + + + | Author | [facility] | + + + | Organization | [facility] | + + + | Address | Unknown | + + + | Phone | Unavailable | + + + Support + + +---------+ + | Name | Relationship | Address | Phone | + + +---------+ + | ROSE BOWENS | ECON | Unknown | | + + +---------+ + Care Team Providers + +------+ + | Care Regional Driver Name | Role | Phone | + +------+ + | Santo Gooden MD | PCP | | + +------+ + Encounter Details +--------+ + + + + | Date | Type | Department | Care Team | Description | +--------+ + + + + | 02/17/ | Pharmacy | [facility] | | | | 2018 | Visit | & [facility]acy | | | | | | [address] | | | | | | [place], [place] | | | | | | [address] | | | | | | [phone] | | | +--------+ + + + [...] 2017 | | Oncology | [address] [facility] | | | | | | [place] [address] | | +--------+ + + + + | 04/24/ | Office | Hematology & | Annie Gannon, | | | 2018 | Visit | Oncology | AGASHANAE,STUDENT SERVICES DEAN [address] | | | | | | [address] | | | | | | [place], [place] | | | | | | [address] | | | | | | [phone] | | | | | | | | +--------+ + + + + | 04/24/ | Hospital | Adult Acute Care | Savanna Mari, | | | 2017 | Encounter | | [address] | | | | | | [place], [place] | | | | | | [address] | | | | | | [phone] | | | | | | | [...] [place] | | | | | | [address] | | | | | | [phone] | | | | | | | | +--------+ + + + + as of this encounter Visit Diagnoses Not on filein this encounter"
--- OUTSIDE RECORDS SUMMARY | ~2018-04-16 | XMS | Encounter Summary ---
Demographics + + + | Address | [address] | | | [place] [address] | + + + | Home Phone [...] Author + + + | Author | [facility] | + + + | Organization | [facility] | + + + | Address | Unknown | + + + | Phone | Unavailable | + + + Support + + +---------+ + | Name | Relationship | Address | Phone | + + +---------+ + | ROSE BOWENS | ECON | Unknown | | + + +---------+ + Care Team Providers + +------+ + | Care Merchant Mill Utility Worker Name | Role | Phone | [...] Nascimento | | | | | | [facility] | | | | | | [place], [place] | | | | | | [address] | | | +--------+ + + + [...] | | Oncology | [address] | | | | | | [place] [address] | | +--------+ + + + + | 04/24/ | Office | Hematology & | Annie Gannon, | | | 2018 | Visit | Oncology | [facility],TECHNICAL ADJUSTER [address] | | | | | | [address] | | | | | | [place], [place] | | | | | | [address] | | | | | | [phone] | | | | | | | | +--------+ + + + + | 04/24/ | Hospital | Adult Acute Care | Savanna Mari, | | | 2017 | Encounter | | [address] | | | | | | [facility] [place] | | | | | | [address] | | | | | | [phone] | | | | | | | [...] Scott | | | | | | [facility], [place] | | | | | | [address] | | | | | | [phone] | | | | | | | | +--------+ + + + + as of this encounter Visit Diagnoses Not on filein this encounter"
--- OUTSIDE RECORDS SUMMARY | ~2018-04-16 | XMS | Encounter Summary ---
Demographics + + + | Address | [address] | | | [place] [address] | + + + | Home Phone [...] Team Providers + +------+ + | Care Prison Classification Counselor Name | Role | Phone | + [...] Nascimento | | | | | | [facility] | | | | | | [place], [place] | | | | | | [address] | | | +--------+ + + + [...] | | Oncology | [address] | | | | | | [place] [address] | | +--------+ + + + + | 04/24/ | Office | Hematology & | Annie Gannon, | | | 2018 | Visit | Oncology | [facility] [address] | | | | | | [address] | | | | | | [place], [place] | | | | | | [address] | | | | | | [phone] | | | | | | | | +--------+ + + + + | 04/24/ | Hospital | Adult Acute Care | Savanna Mari, | | | 2017 | Encounter | | [address] | | | | | | [facility] [place] | | | | | | [address] | | | | | | [phone] | | | | | | | [...] | | | | | | [facility], [place] | | | | | | [address] | | | | | | [phone] | | | | | | | | +--------+ + + + + as of this encounter Visit Diagnoses Not on filein this encounter"
--- OUTSIDE RECORDS SUMMARY | ~2018-04-16 | XMS | Encounter Summary ---
Demographics + + + | Address | [address] | | | [place] [address] | + + + | Home Phone [...] Team Providers + +------+ + | Care Claims Service Representative Name | Role | Phone [...] | [address] | follow-up ([facility] | | | | [facility] | [place], [place] | and labs) | | | | [address] | [address] | | | | | Mailcode: [facility] | [phone] | | | | | [facility] | | | | | | and Healing, [facility] | | | | | | Floor [place], [place] | | | | | | [address] | | | | | | [phone] | | | +--------+ + + + [...] Jackman | | | | | | [place] [address] | | +--------+ + + + + | 04/24/ | Office | Hematology & | nAnie Gannon, | | | 2017 | Visit | Oncology | AGACNP,VEHICLE UPHOLSTERER [address] | | | | | [address] | | | | | | [place], [place] | | | | | | [address] | | | | | | [phone] | | | | | | | | +--------+ + + + + | 04/24/ | Hospital | Adult Acute Care | Savanna Mari, | | | 2017 | Encounter | | [address] | | | | | | [place], [place] | | | | | | [address] | | | | | | [phone] | | | | | | | [...] Scott | | | | | | [place], [place] | | | | | | [address] | | | | | | [phone] | | | | | | | | +--------+ + + + + as of this encounter Visit Diagnoses + + | Diagnosis | + + | Synovial sarcoma (HCC) - Primary | + + | 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
--- OUTSIDE RECORDS SUMMARY | ~2018-04-16 | XMS | Encounter Summary ---
Demographics + + + | Address | [address] | | | [place] [address] | + + + | Home Phone [...] Team Providers + +------+ + | Care Fresh Work Wrapper Layer Name | Role | Phone | + +------+ + | Santo Gooden MD | PCP | | + +------+ + Encounter Details +--------+ + + + + | Date | Type | Department | Care Team | Description | +--------+ + + + + | 02/06/ | Pharmacy | [facility] | | | | 2018 | Visit | & [facility]aling Pharmacy | | | | | | [address] | | | | | | [place], [place] | | | | | | [address] | | | | | | [phone] | | | +--------+ + + + [...] | Oncology | [address] [facility] | | | | | | [place] [address] | | +--------+ + + + + | 04/24/ | Office | Hematology & | Annie Gannon, | | | 2018 | Visit | Oncology | [facility] [address] | | | | | | [address] | | | | | | [place], [place] | | | | | | [address] | | | | | | [phone] | | | | | | | | +--------+ + + + + | 04/24/ | Hospital | Adult Acute Care | Savanna Mari, | | | 2017 | Encounter | | [address] | | | | | | [place], [place] | | | | | | [address] | | | | | | [phone] | | | | | | | [...] Scott | | | | | | [place], [place] | | | | | | [address] | | | | | | [phone] | | | | | | | | +--------+ + + + + as of this encounter Visit Diagnoses Not on filein this encounter"
--- OUTSIDE RECORDS SUMMARY | ~2018-04-16 | XMS | Encounter Summary ---
Demographics + + + | Address | [address] | | | [place] [address] | + + + | Home Phone | | + + + | Preferred Language | Unknown | + + + | Marital Status | Single | + + + | Faith Affiliation | CAT | + + + [...] Providers + +------+ + | Care Manager Pe Name | Role | Phone | + [...] | | 2018 | | Oncology at [facility] 7th | [address] | therapy (Nutrition | | | | Floor [address] | [facility] | Referral) | | | | [address] Mailcode: | Ubaldo [facility] [place] | | | | | [facility] | [address] | | | | | Health and Healing | [phone] | | | | | [facility] [place] | | | | | | [address] | | | | | | [phone] | | | +--------+ + + + [...] Jackman | | | | | | [place] [address] | | +--------+ + + + + | 04/24/ | Office | Hematology & | Annie Gannon, | | | 2017 | Visit | Oncology | AGACNP,APARTMENT MAINTENANCE WORKER [address] | | | | | [address] | | | | | | [place], [place] | | | | | | [address] | | | | | | [phone] | | | | | | | | +--------+ + + + + | 04/24/ | Hospital | Adult Acute Care | Savanna Mari, | | | 2017 | Encounter | | MD [address] | | | | | | [place], [place] | | | | | | [address] | | | | | | [phone] | | | | | | | | +--------+ + + + + | 05/15/ | Appointment | Hematology & | | | | 2017 | | Oncology | | | +--------+ + + + + | 05/15/ | Office | Hematology & | Sandra Patel MD | | | 2018 | Visit | Oncology | [address] | | | | | | [place], [place] | | | | | | [address] | | | | | | [phone] | | | | | | | | +--------+ + + + + as of this encounter Visit Diagnoses Not on filein this encounter"
--- OUTSIDE RECORDS SUMMARY | ~2018-04-16 | XMS | Encounter Summary ---
Demographics + + + | Address | [address] | | | [place] [address] | + + + | Home Phone [...] Team Providers + +------+ + | Care Patent Lawyer Name | Role | Phone | + [...] | | 2017 | | Oncology at [facility] | | | | | | for Health & Healing | | | | | | [address] | | | | | | Mailcode: CH7M | | | | | | [facility] | | | | | | and Healing, 7th | | | | | | Floor [place], [place] | | | | | | [address] | | | | | | [phone] | | | +--------+ + + + [...] Road | | | | | | [place] [address] | | +--------+ + + + + | 04/24/ | Office | Hematology & | Annie Gannon, | | | 2017 | Visit | Oncology | ROME,PUBLIC RELATIONS MANAGER [address] | | | | | [address] | | | | | | [place], [place] | | | | | | [address] | | | | | | [phone] | | | | | | | | +--------+ + + + + | 04/24/ | Hospital | Adult Acute Care | Savanna Mari, | | | 2017 | Encounter | | MD [address] | | | | | | [place], [place] | | | | | | [address] | | | | | | [phone] | | | | | | | [...] | | | | | | [place], [place] | | | | | | [address] | | | | | | [phone] | | | | | | | | +--------+ + + + + as of this encounter Visit Diagnoses Not on filein this encounter"
--- OUTSIDE RECORDS SUMMARY | ~2018-04-16 | XMS | Encounter Summary ---
Demographics + + + | Address | [address] | | | [place] [address] | + + + | Home Phone | | + + + | Preferred Language | Unknown | + + + | Marital Status | Single | + + + | Christian Affiliation | CAT | + + + | Race | Unknown | + + + | Ethnic Group | Not or | + + + Author + + + | Author | [facility] | + + + | Organization | [facility] | + + + | Address | Unknown | + + + | Phone | Unavailable | + + + Support + + +---------+ + | Name | Relationship | Address | Phone | + + +---------+ + | ROSE BOWENS | ECON | Unknown | | + + +---------+ + Care Team Providers + +------+ + | Care Lodge Officer Name | Role | Phone | [...] | Floor [address] | [facility] | | | | | [facility] | [place], [place] | | | | | Mailcode: L457 | [address] | | | | | Physicians Katie | [phone] | | | | | [place], [place] | | | | | | [address] | | | | | | [phone] | | | +--------+ + + + [...] Jackman | | | | | | [place] [address] | | +--------+ + + + + | 04/24/ | Office | Hematology & | Annie Gannon, | | | 2017 | Visit | Oncology | AGACNP,OPERATIONS SUPPORT PROFESSIONALS [address] | | | | | | [address] | | | | | | [place], [place] | | | | | | [address] | | | | | | [phone] | | | | | | | | +--------+ + + + + | 04/24/ | Hospital | Adult Acute Care | Savanna Mari, | | | 2017 | Encounter | | [address] | | | | | | [place], [place] | | | | | | [address] | | | | | | [phone] | | | | | | | [...] Scott | | | | | | [place] | | | | | | [address] | | | | | | [phone] | | | | | | | | +--------+ + + + + as of this encounter Visit Diagnoses Not on filein this encounter"
--- OUTSIDE RECORDS SUMMARY | ~2018-04-16 | XMS | Encounter Summary ---
Demographics + + + | Address | [address] | | | [place] [address] | + + + | Home Phone [...] Author + + + | Author | [facility] | + + + | Organization | [facility] | + + + | Address | Unknown | + + + | Phone | Unavailable | + + + Support + + +---------+ + | Name | Relationship | Address | Phone | + + +---------+ + | ROSE BOWENS | ECON | Unknown | | + + +---------+ + Care Team Providers + +------+ + | Care Security Infrastructure Engineer Name | Role | Phone | + +------+ + | Santo Gooden MD | PCP | | + +------+ + Encounter Details +--------+ + + + + | Date | Type | Department | Care Team | Description | +--------+ + + + + | 01/30/ | MyChart | Orthopaedics at | Lynda Basurto, | Picture of biopsy | | 2018 | Encounter | [facility] [address] | [address] [facility] | site | | | | Ave Mailcode: CH12A | [facility] | | | | | [place] for [facility] | [place], [place] | | | | | and | [address] | | | | | Floor [place], [place] | [phone] | | | | | [address] | | | | | | [phone] | | | +--------+ + + + [...] Road | | | | | | [place] [address] | | +--------+ + + + + | 04/24/ | Office | Hematology & | Annie Gannon, | | | 2017 | Visit | Oncology | [facility] [address] | | | | [address] | | | | | | [place], [place] | | | | | | [address] | | | | | | [phone] | | | | | | | | +--------+ + + + + | 04/24/ | Hospital | Adult Acute Care | Savanna Mari, | | | 2017 | Encounter | | [address] | | | | | | [place], [place] | | | | | | [address] | | | | | | [phone] | | | | | | | [...] [place] | | | | | | [address] | | | | | | [phone] | | | | | | | | +--------+ + + + + as of this encounter Visit Diagnoses Not on filein this encounter"
--- OUTSIDE RECORDS SUMMARY | ~2018-04-16 | XMS | Encounter Summary ---
Demographics + + + | Address | [address] | | | [place] [address] | + + + | Home Phone [...] + + + | Author | [facility] | + + + | Organization | [facility] | + + + | Address | Unknown | + + + | Phone | Unavailable | + + + Support + + +---------+ + | Name | Relationship | Address | Phone | + + +---------+ + | ROSE BOWENS | ECON | Unknown | | + + +---------+ + Care Team Providers + +------+ + | Care Medical Instructor Name | Role | Phone | [...] Visit | Rehabilitation at | MD [address] | left leg (HCC) | | | | [facility] 12th Floor [address] | (Primary Dx); Hx of | | | | [address] | [place], [place] | BKFranky left ([facility]); E | | | | [place] for [facility] | [address] | coli infection; Long | | | | and Healing, | [phone] | term (current) use | | | | Floor [place], [place] | | of antibiotics | | | | [address] | | | | | | [phone] | | | +--------+---------+ + + + [...] + as of this encounter Progress Notes Angely Stephen MD - 04/09/2018 3:00 PM PDTFormatting of this note may be different from the original. 32 y/o F with pmh [...] the cultures grew E. Coli alone. Pa th concerning for acute osteomyelitis. Pt was placed on zosyn with plan for 6 week course o f therapy through 05/08/18. She presents for multi-D follow up with onc, geogria, NIKITA. She state s she does not like [...] cycles of adjuvant chemo 3. Encounter for extermination inspector use of antibiotics Pt's wound seems to [...] Angely Stephen MD ORTHOPAEDICS & REHABILITATION AT [facility] 12TH FLOOR [address] [place] [phone] Angely Stephen MD - 04/09/2018 3:00 PM PDTFormatting of this note may be different from the original. 32 y/o F with pmh [...] findings may be suggestive of acute osteomyelitis. in this encounter Plan of Treatment +--------+ + + + + | Date | Type | Specialty | Care Team | Description | +--------+ + + + + | 04/24/ | Appointment | Hematology & | Nurse, Hem Starter | | | 2017 | | Oncology | [address] | | | | | | [place] [address] | | +--------+ + + + + | 04/24/ | Office | Hematology & | Annie Gannon, | | | 2017 | Visit | Oncology | AGADEVYNP,KEY CUTTER [address] | | | | | | [address] | | | | | | [place], [place] | | | | | | [address] | | | | | | [phone] | | | | | | | | +--------+ + + + + | 04/24/ | Hospital | Adult Acute Care | Savanna Mari, | | | 2017 | Encounter | | MD [address] | | | | | | [place], [place] | | | | | | [address] | | | | | | [phone] | | | | | | | [...] [place] | | | | | | [address] | | | | | | [phone] | | | | | | | | +--------+ + + + + as of this encounter Visit Diagnoses + + | Diagnosis | + + | Osteomyelitis of left leg (HCC) - Primary | + + | Unspecified osteomyelitis, site unspecified | + + | Hx of BKA, left (HCC) | + + | E coli infection | + + | Other and unspecified Escherichia coli (E. 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
--- OUTSIDE RECORDS SUMMARY | ~2018-04-16 | XMS | Encounter Summary ---
Demographics + + + | Address | [address] | | | [place] [address] | + + + | Home Phone [...] Team Providers + +------+ + | Care Cutter Operator Helper Name | Role | Phone [...] | | 2018 | | Oncology at [facility] | [address] | | | | | for Health & Healing | [place], [place] | | | | | [address] | [address] | | | | | Mailcode: [facility] | [phone] | | | | | [facility] | | | | | | and Healing, 7th | | | | | | Floor [place], [place] | | | | | | [address] | | | | | | [phone] | | | +--------+ + + + [...] Road | | | | | | [place] [address] | | +--------+ + + + + | 04/24/ | Office | Hematology & | Annie Gannon, | | | 2017 | Visit | Oncology | ROME,INSTRUCTOR OF NURSING [address] | | | | | | [address] | | | | | | [place], [place] | | | | | | [address] | | | | | | [phone] | | | | | | | | +--------+ + + + + | 04/24/ | Hospital | Adult Acute Care | Savanna Mari, | | | 2017 | Encounter | | [address] | | | | | | [place], [place] | | | | | | [address] | | | | | | [phone] | | | | | | | [...] [place] | | | | | | [address] | | | | | | [phone] | | | | | | | | +--------+ + + + + as of this encounter Visit Diagnoses Not on filein this encounter"
--- OUTSIDE RECORDS SUMMARY | ~2018-04-16 | XMS | Encounter Summary ---
Demographics + + + | Address | [address] | | | [place] [address] | + + + | Home Phone [...] Team Providers + +------+ + | Care Nuclear Engineering Technician Name | Role | Phone | + +------+ + | Santo Gooden MD | PCP | | + +------+ + Reason for Referral Consult to [place] (Routine) +--------+--------+ + + + + | Status | Reason | Specialty | Diagnoses / | Referred By | Referred To | | | | | Procedures | Contact | Contact | +--------+--------+ + + + + | Closed | | Orthopedics | Diagnoses | Doung, | Doung, | | | | | Malignant | Lynda, | MD Lynda | | | | | neoplasm of | [address] | [address] | | | | | soft tissue | [address] | [facility] | | | | | of left | [address] | | | | | lower | [facility] [place] | [facility] [place] | | | | | extremity | [address] | [address] | | | | | (HCC) | Phone: | Phone: | | | | | Procedures | [phone] | [phone] | | | | | REQUEST TO | Fax: | Fax: | | | | | SURGERY | [phone] | [phone] | | | | | SODA TESTER | | | | | | | HI RAD RESEC | | | | | | | TUMOR,SOFT | | | | | | | TISS FOOT | | | | | | | HI RESECT | | | | | | | FOOT/TOE | | | | | | | TUMOR>3CM | | | +--------+--------+ + + + + Consultation (Urgent) + +--------+ + + + + | Status | Reason | Specialty | Diagnoses / | Referred By | Referred To | | | | | Procedures | Contact | Contact | + +--------+ + + + + | Authorized | | Hematology & | Diagnoses | Doartemio, | Sandra Patel | | | | Oncology | Malignant | Lynda, | [address], [address] | | | | | neoplasm of | MD [address] | | | | | soft tissue | [address] | [place], [place] | | | | | of left | [address] | [address] | | | | | lower | [place], [place] | Phone: | | | | | extremity | [address] | [phone] | | | | | (HCC) | Phone: | Fax: | | | | | Procedures | [phone] | [phone] | | | | | CONSULT TO | Fax: | | | | | | HEMATOLOGY / | [phone] | | | | | | ONCOLOGY [...] | | | neoplasm of | MD [address] | | | | | | soft tissue | [address] | | | | | | of left | [address] | | | | | | lower | [place], [place] | | | | | | extremity | [address] | | | | | | (HCC) | Phone: | | | | | | Procedures | [phone] | | | | | | CT CHEST WO | Fax: | | | | | | CONTRAST | [phone] | | + +--------+ + + + + Reason for Visit Office Visit - E/M Services (Routine) +--------+--------+ + + + + | Status | Reason | Specialty | Diagnoses / | Referred By | Referred To | | | | | Procedures | Contact | Contact | +--------+--------+ + + + + | Closed | | Orthopedics | Diagnoses | Quliyampshakeel, | Hugo, | | | | | Foot mass, | Santo Rogers MD | Miles Mckeon MD | | | | | left | Torres | [address] [facility] | | | | | Sarcoma | [place] | [facility] | | | | | (HCC) L | Health | Rd | | | | | Foot Mass | Center | [place], [place] | | | | | (Sarcoma) | [address] | [address] | | | | | | [address] | Phone: | | | | | | Way | [phone] | | | | | | [place] | Fax: | | | | | | [place] [address] | [phone] | | | | | | Phone: | | | | | | | [phone] | | | | | | | Fax: | | | | | | | [phone] | | +--------+--------+ + + + + Encounter Details +--------+---------+ + + + | Date | Type | Department | Care Team | Description | +--------+---------+ + + + | 01/22/ | Office | [facility] | Lynda Basurto, | Malignant neoplasm | | 2018 | Visit | & Rehabilitation | MD Jeanne [address] | of soft tissue of | | | | [address] | [address] | left lower extremity | | | | Mailcode: CH12A | [place], [place] | ([facility]) (Primary Dx) | | | | [place] for [facility] | [address] | | | | | and Healing | [phone] | | | | | [place], [place] | | | | | | [address] | | | | | | [phone] | | | +--------+---------+ + + + [...] + + + | Blood Pressure | 166/99 | 01/22/2018 4:10 PM PDT | + + + + | Pulse | 95 | 01/22/2018 4:10 PM PDT | + + + + | Temperature | 36.8 C (98.2 F) | 01/22/2018 4:10 PM PDT | + + + + | Respiratory Rate | 18 | 01/22/2018 4:10 PM PDT | + + + + | Oxygen Saturation | 99% | 01/22/2018 4:10 PM PDT | + + + + | Inhaled Oxygen | - | - | | Concentration | | | + + + + | Weight | 139.8 kg (308 lb 1.6 | 01/22/2018 4:10 PM PDT | | | oz) | | + + + + | Height | - | - | + + + + | Body Mass Index | 46.85 | 01/22/2018 4:10 PM PDT | + + + + in this encounter Progress Notes Lynda Basurto MD - 01/22/2018 4:00 PM PDTDx: malignant soft tissue mass L foot Treatment: needle biopsy 01/15/2018 HPI: 32 y.o. F here for followup after needle biopsy. Patient had significant pain after n eedle biopsy. Has been unable to bear weight. Has been unable to work. Has had pain severe e nough that she got a shot of Toradol which did not help. She subsequently got opioid medicat ion. For the past few days, she has stopped taking it. She has some redness around her incis ion. No fevers. PE: Wt 139.8 kg (308 lb 1.6 oz), BP 166/99, Pulse 95, Temperature 36.8 C (98.2 F), Temperat ure source Oral, RR 18, SpO2 99%, BMI 46.85 kg/(m^2). Incision healing well, with some surrounding ecchymosis, but not significant enough erythem a or swelling to consider it to be infected. Pathology: Final pathology is pending. Discussion was made at tumor board. 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 Final studies to distinguish between the 2 are pending. A/P: Malignant soft tissue mass left foot -Suture removed today -Discussed findings with patient. -Needs staging studies: CT chest -Have placed a consult to medical oncology. They would, understandably, like to have pathol ogy finalized before seeing her. They will see her tomorrow with final results and discuss w hether she needs neoadjuvant chemotherapy. -Also discussed surgical options with patient. It is possible to resect her tumor in the fo ot with limb salvage, but the margins would be narrow. In addition to that, it she is at ris k for significant wound healing problems and infection. -She has a lower risk of local recurrence with an amputation, but risk of distant disease i s the same. -If she develops significant wound healing problems or infection, she may need an amputatio n down the road. If she develops local recurrence, she also may need an amputation down the road. -She is also aware that if she has wound complications, she is returning to [place] multip le times until he gets fully addressed. -Because of the location, radiation therapy is not a great option. -I will place a surgical intake for resection with limb salvage. The date of surgery will depend on whether she gets neoadjuvant chemotherapy.in this encounter Plan of Treatment +--------+ + + + + | Date | Type | Specialty | Care Team | Description | +--------+ + + + + | 04/24/ | Appointment | Hematology & | NurseDarwin Starter | | | 2017 | | Oncology | [address] [facility] | | | | | | [place] [address] | | +--------+ + + + + | 04/24/ | Office | Hematology & | Annie Gannon, | | | 2017 | Visit | Oncology | [facility] [address] | | | | | | [address] | | | | | | [place], [place] | | | | | | [address] | | | | | | [phone] | | | | | | | | +--------+ + + + + | 04/24/ | Hospital | Adult Acute Care | Savanna Mari, | | | 2018 | Encounter | | [address] | | | | | | [place], [place] | | | | | | [address] | | | | | | [phone] | | | | | | | [...] [address] | | | | | | [place], [place] | | | | | | [address] | | | | | | [phone] | | | | | | | | +--------+ + + + + + +--------+ + + | Name | Priori | Associated Diagnoses | Order Schedule | | | ty | | | + +--------+ + + | TYPE AND SCREEN | Routin | Malignant neoplasm | Expected: | | | e | of soft tissue of | 01/22/2018, Expires: | | | | left lower extremity | 02/22/2019 | | | | (HCC) | | + +--------+ + + as of this encounter Results CT CHEST WO CONTRAST (01/22/2018 5:57 PM) + + + | Specimen | Performing Laboratory | + + + | | [facility] RADIOLOGY VOICE RECOGNITION 2 | + [...] Note | + + | Service Account, [place] In Interface - 01/23/2018 10:14 AM [...] soft tissue of left lower extremity (HCC) - Primary | + +"
--- OUTSIDE RECORDS SUMMARY | ~2018-04-16 | XMS | Encounter Summary ---
Demographics + + + | Address | [address] | | | [place] [address] | + + + | Home Phone [...] Team Providers + +------+ + | Care Counselor Aid Name | Role | Phone | + +------+ + | Santo Gooden MD | PCP | | + +------+ + Reason for Visit + + + | Reason | Comments | + + + | Medication Education | Take home anti-emetics | + + + Encounter Details +--------+ + + + + | Date | Type | Department | Care Team | Description | +--------+ + + + + | 02/23/ | Documentati | Hematology/Medical | Mignon Dan, | Medication Education | | 2018 | on | Oncology at [place] | PharmD [address] | (Take home | | | | for Health & Healing | [address] | anti-emetics) | | | | [address] | [place], [place] | | | | | Mailcode: CH7M | [address] | | | | | [facility] | | | | | | and [facility] | | | | | | [place], [place] | | | | | | [address] | | | | | | [phone] | | | +--------+ + + + [...] [address] | | | | | | [place] [address] | | +--------+ + + + + | 04/24/ | Office | Hematology & | Annie Gannon, | | | 2017 | Visit | Oncology | AGACNP,SAND PLANT ATTENDANT [address] | | | | | | [address] | | | | | | [place], [place] | | | | | | [address] | | | | | | [phone] | | | | | | | | +--------+ + + + + | 04/24/ | Hospital | Adult Acute Care | Savanna Mari, | | | 2018 | Encounter | | [address] | | | | | | [place], [place] | | | | | | [address] | | | | | | [phone] | | | | | | | [...] Scott | | | | | | [place] | | | | | | [address] | | | | | | [phone] | | | | | | | | +--------+ + + + + as of this encounter Visit Diagnoses Not on filein this encounter"
--- OUTSIDE RECORDS SUMMARY | ~2018-04-16 | XMS | Encounter Summary ---
Demographics + + + | Address | [address] | | | [place] [address] | + + + | Home Phone [...] Team Providers + +------+ + | Care General Surgery Physician Assistant Name | Role | Phone | [...] | 2018 | Visit | Oncology at [place] | AGACNP,COLOR TELEVISION CONSOLE MONITOR [address] | ([facility]) (Primary Dx) | | | | for Health & Healing | [address] | | | | | [address] | [place], [place] | | | | | Mailcode: [facility] | [address] | | | | | [facility] | [phone] | | | | | and [facility], [facility] | | | | | | [place], [place] | | | | | | [address] | | | | | | [phone] | | | +--------+---------+ + + + [...] or concerns please call: During Clinic hours: [phone] Evenings, weekends and Holidays: [phone], ask for the Oncologist on-call Please contact [...] Name: Tati Cage : 1985 Home Town: [place], [place] Referring Physician: Sb Diagnosis: high risk [...] Take 25 mg by mouth once daily. Ckunebdnz-Tlwyanawe-My-Mag-Sim [phone] mg/30 mL mucous membrane mouthwash, Take 5 [...] needed for anxiety (2nd line for nausea/vomiting). [facility] [employer] [facility], [facility] commode for nighttime use [...] well perfused. Neurologic - A&O x 3. parking inspector grossly intact. Affect/Psych - Appropriate mood and [...] risk. 03/02 Dr. Chavira will see ROME Jiménez,COLOR TELEVISION CONSOLE MONITOR HEMATOLOGY/MEDICAL ONCOLOGY AT [facility] [address] Mailcode: [facility] [place] [address] in this encounter Plan of Treatment +--------+ + + + + | Date | Type | Specialty | Care Team | Description | +--------+ + + + + | 04/24/ | Appointment | Hematology & | Nurse, Hem Starter | | | 2017 | | Oncology | [address] | | | | | | [place] [address] | | +--------+ + + + + | 04/24/ | Office | Hematology & | Annie Gannon, | | | 2017 | Visit | Oncology | ROME,COLOR TELEVISION CONSOLE MONITOR [address] | | | | | | [address] | | | | | | [place], [place] | | | | | | [address] | | | | | | [phone] | | | | | | | | +--------+ + + + + | 04/24/ | Hospital | Adult Acute Care | Savanna Mari, | | | 2017 | Encounter | | [address] | | | | | | [facility] [place] | | | | | | [address] | | | | | | [phone] | | | | | | | [...] [address] | | | | | | [place], [place] | | | | | | [address] | | | | | | [phone] | | | | | | | | +--------+ + + + + as of this encounter Visit Diagnoses + + | Diagnosis | + + | Synovial sarcoma (HCC) - Primary | + + | 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
--- OUTSIDE RECORDS SUMMARY | ~2018-04-16 | XMS | Encounter Summary ---
Demographics + + + | Address | [address] | | | [place] [address] | + + + | Home Phone [...] Team Providers + +------+ + | Care Orthotic Assistant Name | Role | Phone | [...] | | 2018 | | Oncology at [place] | [address] | (neulasta) | | | | for Health & Healing | [place], [place] | | | | | [address] | [address] | | | | | Mailcode: CH7 | [phone] | | | | | [facility] | | | | | | and [facility], 7th | | | | | | Floor [place], [place] | | | | | | [address] | | | | | | [phone] | | | +--------+ + + + [...] [address] | | | | | | [place] [address] | | +--------+ + + + + | 04/24/ | Office | Hematology & | Annie Gannon, | | | 2017 | Visit | Oncology | AGASHANAE,CUSTODIAL OFFICER [address] | | | | | [address] | | | | | | [place], [place] | | | | | | [address] | | | | | | [phone] | | | | | | | | +--------+ + + + + | 04/24/ | Hospital | Adult Acute Care | Savanna Mari, | | | 2017 | Encounter | | [address] | | | | | | [place], [place] | | | | | | [address] | | | | | | [phone] | | | | | | | [...] [address] | | | | | | [place] | | | | | | [address] | | | | | | [phone] | | | | | | | | +--------+ + + + + as of this encounter Visit Diagnoses Not on filein this encounter"
--- OUTSIDE RECORDS SUMMARY | ~2018-04-16 | XMS | Encounter Summary ---
Demographics + + + | Address | [address] | | | [place] [address] | + + + | Home Phone [...] Author + + + | Author | [facility] | + + + | Organization | [facility] | + + + | Address | Unknown | + + + | Phone | Unavailable | + + + Support + + +---------+ + | Name | Relationship | Address | Phone | + + +---------+ + | ROSE BOWENS | ECON | Unknown | | + + +---------+ + Care Team Providers + +------+ + | Care Health Director Name | Role | Phone | [...] + + | 03/12/ | Office | [facility]opa[facility]ics | Sb GallegosAlexander, | 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 | & Rehabilitation | [address] | ([facility]) (Primary Dx) | | | | [address] | [address] | | | | | Mailcode: CH12A | [place], [place] | | | | | [facility] | [address] | | | | | and Healing | [phone] | | | | | [place], [place] | | | | | | [address] | | | | | | [phone] | | | +--------+---------+ + + + [...] + as of this encounter Progress Notes Lynda Basurto MD - 03/12/2018 2:40 PM PDTDiagnosis: Synovial sarcoma left foot Treatment: Needle biopsy 01/15/2018 Left Below-knee amputation 02/06/2018 HPI: 32 y.o. F here for followup. She is about 1 month status post left below-knee amputat ion. She got one cycle of chemotherapy. She was neutropenic from it. She states she was in [facility]. She is due for a second cycle. Her sutures have remained in place. She has had minimal d rainage on her dressing every day. She has been wrapping it every day. PE: Wt 140.8 kg (310 lb 8 oz), BP 137/89, Pulse 107, Temperature 36.7 C (98.1 F), Temperatu re source Oral, RR 16, SpO2 97%, BMI 47.21 kg/(m^2). Facility age limit for growth percenti les is 18 years. Incision medially and laterally with about a 1 cm band of necrosis, dry. At the midline cristofer ears to be healing well. With some surrounding erythema, but no yuval fluid collection can be palpable. A/P: s/p L BKA -about two thirds of the stitches were removed today. I'm a little worried about dehiscence on the medial side so I left the remaining sutures alone. -Continue wrapping the leg. We'll continue to monitor the necrotic areas. -When she comes back for her next cycle of chemotherapy, I'm happy to take at the remaining stitches.in this encounter Plan of Treatment +--------+ + + + + | Date | Type | Specialty | Care Team | Description | +--------+ + + + + | 04/24/ | Appointment | Hematology & | Nurse, Hem Starter | | | 2018 | | Oncology | [address] | | | | | | [place] [address] | | +--------+ + + + + | 04/24/ | Office | Hematology & | Annie Gannon, | | | 2017 | Visit | Oncology | AGACNP,SOFTWARE IMPLEMENTATION PROJECT MANAGER [address] | | | | | | [address] | | | | | | [place], [place] | | | | | | [address] | | | | | | [phone] | | | | | | | | +--------+ + + + + | 04/24/ | Hospital | Adult Acute Care | Savanna Mari, | | | 2017 | Encounter | | [address] | | | | | | [place], [place] | | | | | | [address] | | | | | | [phone] | | | | | | | [...] [address] | | | | | | [place], [place] | | | | | | [address] | | | | | | [phone] | | | | | | | | +--------+ + + + + as of this encounter Visit Diagnoses + + | Diagnosis | + + | Synovial sarcoma (HCC) - Primary | + + | 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
--- OUTSIDE RECORDS SUMMARY | ~2018-04-16 | XMS | Encounter Summary ---
Demographics + + + | Address | [address] | | | [place] [address] | + + + | Home Phone [...] Team Providers + +------+ + | Care Associate Professor Of Art History Name | Role | Phone | + [...] + + | 02/19/ | Hospital | [facility] [address] | Leighann Yost MD | | | 2018 - | Encounter | [facility] | [address] | | | | | Road Mailcode: | [facility] [address] | | | 02/23/ | | [address] | [place], [place] | | | 2018 | | [place], | [address] | | | | | [place] [address] | [phone] | | | | | [phone] | | | +--------+ + + + [...] Pressure | 130/83 | 02/23/2018 9:32 AM PDT | + + + + | Pulse | 72 | 02/23/2018 9:32 AM PDT | + + + + | Temperature | 36.6 C (97.9 F) | 02/23/2018 9:32 AM PDT | + + + + | Respiratory Rate | 18 | 02/23/2018 1:12 PM PDT | + + + + | Oxygen Saturation | 99% | 02/23/2018 9:32 AM PDT | + + + + | Inhaled Oxygen | - | - | | Concentration | | | + + + + | Weight | 138.9 kg (306 lb 3.5 | 02/22/2018 12:53 PM PDT | | | oz) | | + + + + | Height | 172.7 cm (5' 8") | 02/19/2018 4:44 PM PDT | + + + + | Body Mass Index | 46.56 | 02/22/2018 12:53 PM PDT | + + + + [...] + as of this encounter Discharge Summaries Romeo Sky MD - 02/23/2018 1:06 PM PDTFormatting of this note may be different from nikunj lin. [facility] [place] Discharge Summary Discharging Provider: ROMEO SKY MD [...] @ 845am, labs and port care @ [facility] on 02/28/18, pt should make apt when she is in for neulasta. Sent request to venessa to arrange for fu @ [facility] for C2, the y will contact pt. [...] as directed for port access. Please contact pres ribing physician regarding any questions/concerns or further dosing [...] mood/anxiety. Take as prescribed previously. Please contact [facility] provider regarding questions concerning this medication. CLARITIN 10 mg Tab Generic drug: loratadine Take 10 mg by mouth once daily. Notes to patient: For pain related to growth factor administration as well as seasonal all ergies. Available [id number]. Regarding pain related to growth factor administration [...] agent. Apply as previously prescribed. [facility] regarding any questions/concerns or further dosing [...] in chilled liquid. Over-the -counter. Alternatively consider dbcc-pvy-kxdtoln sennosides (Senna) or bisacodyl tablets by mouth [...] AM/4 in PM). Soft, daily BM desired. [id number]. Also consider over-the-co unter bisacodyl tablets and/or [...] after hours and on weekends call paging stephanie rator at [phone] ask for alterations supervisor doctor for Heme-Onc if you have any [...] AM HEM NURSE TAWANDA Hematology/Medical Oncology at [facility] [phone] [facility]12/2018 9:30 AM Annie Gannon Hematology/Medical Oncology at [facility] [phone] HemOn Discharge Physical Exam: Last 24 hour min/max [...] kg/m. General: adult female patient in [facility] Neuro: AOx3, Psych: pleasant, affect appropiate Skin: No rashes HEENT:oropharynx mucous membrane moist without lesions Chest: Clear to ascultation b/l; no wheezing, crackles CV: Regular rhythm rate, no murmur Abd: Normoactive bowel sounds, soft/Nontender/Nondistended , no hepatosplenomegaly, no ma sses Ext: no edema Lines: PAC accessed - NT, no erythema ROMEO SKY MD Hem/Onc Fellow [id number] Associated attestation - Greg Campos MD - [...] Patel. I have also reviewed Dr. Stevenson evga s discharge note in detail. I attest to the accuracy and completeness of the note. I h naomie reviewed his discussion of the current history, physical findings, the plan following shruthi thornton, and completely concur with what he this is my attestation that he has reviewed the case with me in preparing a thorough, accurate, and detailed discharge summary including [facility] GREG CAMPOS MD [place] [id number] [facility] Mailcode: [address] [place], [place] [id number] in this encounter Medications at Time of [...] | + + +--------+---------+ + + | | Apply to affected [...] + as of this encounter Progress Notes Hayde Flores MD - 02/23/2018 8:30 AM PDTFormatting of this note may be different from t he original. Orthopaedic Progress Note: S: pain well controlled. [...] scheduled. HAYDE FLORES MD Orthopaedics PGY-3 Pager: [phone] Coats MD - 02/23/2018 8:17 AM PDTFormatting of this note may be di fferent from the original. INPATIENT PROGRESS NOTE Hospital Day:4 Author; MACIE [...] wound checked again about 1 wk. Romeo Sky MD - 02/22/2018 7:35 AM PDTFormatting of this note may be different from t he original. INPATIENT PROGRESS NOTE Hospital Day:3 Author; Romeo kSy MD Attending Physician: Greg Campos MD ID: [...] look at wound to remove stitches. Melinda thorne spoke with Dr. Coats who feels that it is still a little too early. Ortho plans to round on pt 02/23 prior to discharge to evaluate the wound. Please do not discharge pt without not ifying Ortho first. neulasta scheduled 02/25 @ 845am, labs and port care @ [facility] on 02/28/18, pt should make apt when she is in for neulasta. Sent request to venessa to arrange for fu @ [facility] for C2, the y will contact pt. [...] s/sxs of encephalopathy. # Fertility: per Dr. Patle's note, patient reports infertility at baseline (tried [...] described above. ROMEO SKY MD Hem/Onc Fellow [id number] Associated attestation - Greg Campos MD - [...] in today's progress note. GREG CAMPOS MD [place] [id number] [facility] Mailcode: [address] [place] [address] Camryn Flynn PA-C - 02/21/2018 7:14 AM PDTFormatting of this note may be different fro m the original. INPATIENT PROGRESS NOTE Hospital Day:2 [...] up afternoon to earlier. Last bm was sd, starting to feel constipated agreeable to starting miralax today. Pt would like me to remind Dr. Basurto and Dr. Patel, requesting note to go back to work from Dr. Basurto, and from Dr. Patel a note to allow her to cont to work while getting treatment a nd a note for her mom who is her primary home care manager. ROS: Remainder of complete 10 points review [...] ml General: adult female patient in [facility] Neuro: AOx3, Psych: pleasant, affect [...] look at wound to remove stitches. H e spoke with Dr. Coats who feels that [...] to venessa to arrange for fu @ [facility] for C2, the y will contact pt. [...] Full CAMRYN FLYNN PA-C Medical Oncology/Hematology pager #[phone] Associated attestation - Leighann Yost MD - [...] and bladder toxicity. Rest per Irene note. in this encounter Plan of Treatment +--------+ + + + + | Date | Type | Specialty | Care Team | Description | +--------+ + + + + | 04/24/ | Appointment | Hematology & | Nurse, Hem Starter | | | 2017 | | Oncology | [address] | | | | | | [place] [address] | | +--------+ + + + + | 04/24/ | Office | Hematology & | Annie Gannon, | | | 2017 | Visit | Oncology | AGACNP,DRESSMAKER HELPER [address] | | | | | [address] | | | | | | [place], [place] | | | | | | [address] | | | | | | [phone] | | | | | | | | +--------+ + + + + | 04/24/ | Hospital | Adult Acute Care | Savanna Mari, | | | 2017 | Encounter | | [address] | | | | | | [place], [place] | | | | | | [address] | | | | | | [phone] | | | | | | | [...] [address] | | | | | | [place], [place] | | | | | | [address] | | | | | | [phone] | | | | | | | | +--------+ + + + + + +--------+ + + | Name | Priori | Associated Diagnoses | Order Schedule | | | ty | | | + +--------+ + + | URINE, MICROSCOPIC EXAM | Routin | | As Needed for 1 | | | e | | Occurrences starting | | | | | 02/19/2018 | + +--------+ + + | UA, DIPSTICK ONLY | Routin | | As Needed for 1 | | | e | | Occurrences starting | | | | | 02/19/2018 | + +--------+ + + | CULTURE, URINE BACTI | Routin | | As Needed for 1 | | | e | | Occurrences starting | | | | | 02/19/2018 | + +--------+ + + | URINE SCREEN FOR CULTURE | Routin | | As Needed for 1 | | | e | | Occurrences starting | | | | | 02/19/2018 | + +--------+ + + as of this encounter Results URINE, MICROSCOPIC EXAM (02/22/2018 6:09 PM) + +---------+ + | Component | Value | Ref Range | + +---------+ + | RED CELLS | 1 | 0 - 3 /hpf | + +---------+ + | WHITE CELLS | 1 | 0 - 5 /hpf | + +---------+ + | BACTERIA | Few (A) | [...] | + + + | Urine | [facility] [address] | | | [place] [address] | + + + URINE, MICROSCOPIC EXAM (02/21/2018 5:57 PM) + +---------+ + | Component | Value | Ref Range | + +---------+ + | RED CELLS | 0 | 0 - 3 /hpf | + +---------+ + | WHITE CELLS | <1 | 0 - 5 /hpf | + +---------+ + | BACTERIA | Few (A) | [...] | + + + | Urine | [facility] [address] [facility] | | | [place] [address] | + + + URINE, MICROSCOPIC EXAM (02/20/2018 7:58 PM) + +---------+ + | Component | Value | Ref Range | + +---------+ + | RED CELLS | 0 | 0 - 3 /hpf | + +---------+ + | WHITE CELLS | <1 | 0 - 5 /hpf | + [...] | + + + | Urine | [facility] [address] [facility] | | | [place] [address] | + + + 12 LEAD ECG (02/20/2018 [...] | + + + | | [facility] [address] [facility] | | | [place] [address] | + + + in this encounter Visit Diagnoses + + | Diagnosis | + + | Synovial sarcoma (HCC) - Primary | + + | 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, site unspecified | + + Admitting Diagnoses + + | Diagnosis | + + | Soft Tissue Sarcoma | + + Administered Medications + + + +------+------+------+ | Medication Order | MAR | Action | Dose | Rate | Site | | | Action | Date | | | | + + + +------+------+------+ | alteplase (CATHFLO ACTIVASE) | Line | | 2 mg | | | | injection 2 mg 2 mg, | Lock | 8 18:42 | | | | | Intracatheter, NEEDED, 2 | Instille | PDT | | | | | doses, Starting 02/19/18 at | d | | | | | | 1709, Until Discontinued, | | | | | | | Catheter patency | | | | | | + + + +------+------+------+ + + +------+---+---+ | Line Lock Instilled | | 2 mg | | | | | 8 18:43 | | | | | | PDT | | | | + + +------+---+---+ +---+---+ | | | +---+---+ + + + +------+---+---+ | alteplase (CATHFLO ACTIVASE) | Line | | 2 mg | | | | injection 2 mg 2 mg, | Lock | 8 00:16 | | | | | Intracatheter, ONCE, 1 dose, Wed | Instille | PDT | | | | | 02/19/18 at 2315 | d | | | | | + + + +------+---+---+ +---+---+ | | | +---+---+ + +-------+ +-------+---+---+ | citalopram (CELEXA) tablet 40 | Given | | 40 mg | | | | mg 40 mg, oral, DAILY, First | | 8 20:17 | | | | | dose on Sat02/19/18 at 2000, | | PDT | | | | | Until Discontinued | | | | | | + +-------+ +-------+---+---+ +-------+ +-------+---+---+ | Given | | 40 mg | | | | | 8 20:49 | | | | | | PDT | | | | +-------+ +-------+---+---+ | Given | | 40 mg | | | | | 8 20:56 | | | | | | PDT | | | | +-------+ +-------+---+---+ +---+---+ | | | +---+---+ + +-------+ +-------+---+---+ | dexamethasone (DECADRON) tablet | Given | | 20 mg | | | | 20 mg 20 mg, oral, EVERY 24 | | 8 13:35 | | | | | HOURS, 4 doses, First dose on Wed | | PDT | | | | | 02/19/18 at 2000, Last dose on | | | | | | | 02/22/18 at 1200 | | | | | | + +-------+ +-------+---+---+ +-------+ +-------+---+---+ | Given | | 20 mg | | | | | 8 13:05 | | | | | | PDT | | | | +-------+ +-------+---+---+ | Given | | 20 mg | | | | | 8 11:43 | | | | | | PDT | | | | +-------+ +-------+---+---+ +---+---+ | | | +---+---+ + +-------+ +------+---+---+ | dexamethasone (DECADRON) tablet | Given | | 4 mg | | | | 4 mg 4 mg, oral, ONCE, 1 dose, | | 8 09:34 | | | | | 02/23/18 at 0800 | | PDT | | | | + +-------+ +------+---+---+ +---+---+ | | | +---+---+ + +-------+ +-------+---+---------+ | enoxaparin (LOVENOX) injection | Given | | 40 mg | | Abdomen | | 40 mg 40 mg, subcutaneous, TWICE | | 8 10:21 | | | | | DAILY, First dose on 02/19/18 | | PDT | | | | | at 2100, Until Discontinued | | | | | | + +-------+ +-------+---+---------+ +-------+ +-------+---+---------+ | Given | | 40 mg | | Abdomen | | | 8 20:56 | | | | | | PDT | | | | +-------+ +-------+---+---------+ | Given | | 40 mg | | Abdomen | | | 8 09:35 | | | | | | PDT | | | | +-------+ +-------+---+---------+ +---+---+ | | | +---+---+ + +---------+ +-------+---+---+ | epiRUBICIN injection 80 mg 80 | New Bag | | 80 mg | | | | mg (rounded from 78 mg = 30 mg/m2 | | 8 22:57 | | | | | | | PDT | | | | | 2.6 [...] +-------+---+---+ +---------+ +-------+---+---+ | New Bag | | 80 mg | | | | | 8 22:06 | | | | | | PDT | | | | +---------+ +-------+---+---+ | New Bag | | 80 mg | | | | | 8 22:22 | | | | | | PDT | | | | +---------+ +-------+---+---+ +---+---+ | | | +---+---+ + +-------+ + +---+---+ | heparin 10 unit/mL IV flush | Given | | 50 Units | | | | syringe 50 Units 50 Units, | | 8 08:24 | | | | | intravenous, NEEDED, Starting | | PDT | | | | | [facility] 02/20/18 at 0218, Until Sun | | | | | | | 02/23/18 at 1927, line patency | | | | | | + +-------+ + +---+---+ +-------+ + +---+---+ | Given | | 50 Units | | | | | 8 08:33 | | | | | | PDT | | | | +-------+ + +---+---+ | Given | | 50 Units | | | | | 8 13:21 | | | | | | PDT | | | | +-------+ + +---+---+ +---+---+ | | | +---+---+ + +-------+ +-------+---+---+ | heparin 100 unit/mL IV flush | Given | | 500 | | | | 500 Units 500 Units, | | 8 11:07 | Units | | | | intravenous, NEEDED, Starting | | PDT | | | | | 02/23/18 at 1049, Until Sun | | | | | | | 02/23/18 at 1927, deaccessing | | | | | | | line/port | | | | | | + +-------+ +-------+---+---+ +-------+ +-------+---+---+ | Given | | 500 | | | | | 8 11:08 | Units | | | | | PDT | | | | +-------+ +-------+---+---+ +---+---+ | | | +---+---+ + +-------+ +-------+---+---+ | hydroCHLOROthiazide | Given | | 25 mg | | | | (HYDRODIURIL) tablet 25 mg 25 | | 8 09:01 | | | | | mg, oral, DAILY, First dose on | | PDT | | | | | 02/19/18 at 1999, Until | | | | | | | Discontinued | | | | | | + +-------+ +-------+---+---+ +-------+ +-------+---+---+ | Given | | 25 mg | | | | | 8 10:21 | | | | | | PDT | | | | +-------+ +-------+---+---+ | Given | | 25 mg | | | | | 8 09:34 | | | | | | PDT | | | | +-------+ +-------+---+---+ +---+---+ | | | +---+---+ + +---------+ + +-------+---+ | ifosfamide (IFEX) 2,500 mg/m2 = | New Bag | | 6,500 mg | 250 | | | 6,500 mg, mesna (MESNEX) 2,200 | | 8 22:56 | | mL/hr | | | mg in NaCl 0.9 % IV 6,500 mg | | PDT | | | | | (2,500 [...] | | | | | | Irritant. Refrigerate. | | | | | | + +---------+ + +-------+---+ +---------+ + +-------+---+ | New Bag | | 6,500 mg | 250 | | | | 8 22:05 | | mL/hr | | | | PDT | | | | +---------+ + +-------+---+ | New Bag | | 6,500 mg | 250 | | | | 8 22:22 | | mL/hr | | | | PDT | | | | +---------+ + +-------+---+ +---+---+ | | | +---+---+ + +-------+ +-------+---+---+ | loratadine (CLARITIN) tablet 10 | Given | | 10 mg | | | | mg 10 mg, oral, DAILY, First | | 8 09:01 | | | | | dose on Sat02/19/18 at 2000, | | PDT | | | | | Until Discontinued | | | | | | + +-------+ +-------+---+---+ +-------+ +-------+---+---+ | Given | | 10 mg | | | | | 8 10:21 | | | | | | PDT | | | | +-------+ +-------+---+---+ | Given | | 10 mg | | | | | 8 09:34 | | | | | | PDT | | | | +-------+ +-------+---+---+ + +---+ | | | + +---+ | LORazepam (ATIVAN) tablet 0.5 | | | mg 0.5 mg, oral, EVERY 24 HOURS | | | NEEDED, Starting Sat02/19/18 | | | at 2000, Until 02/23/18 at | | | 1927, anxiety premedication for | | | chemo | | + +---+ | | | + +---+ + +-------+ +------+---+---+ | LORazepam (ATIVAN) tablet 1 mg | Given | | 1 mg | | | | 1 mg, oral, ONCE, 1 dose, Sat | | 8 18:06 | | | | | 02/19/18 at 1830 | | PDT | | | | [...] mg in NaCl | New Bag | | 2,200 mg | 488 | | | 0.9 % IV 2,200 mg (rounded from | | 8 03:17 | | mL/hr | | | 2,210 mg = 850 mg/m2 | | PDT | | | | | 2.6 [...] | | | | | | | Ifosfamide. | | | | | | + +---------+ + +-------+---+ +---------+ + +-------+---+ | New Bag | | 2,200 mg | 488 | | | | 8 02:34 | | mL/hr | | | | PDT | | | | +---------+ + +-------+---+ | New Bag | | 2,200 mg | 488 | | | | 8 02:45 | | mL/hr | | | | PDT | | | | +---------+ + +-------+---+ +---+---+ | | | +---+---+ + +---------+ + +-------+---+ | mesna (MESNEX) 2,200 mg in NaCl | New Bag | | 2,200 mg | 488 | | | 0.9 % IV 2,200 mg (rounded from | | 8 06:46 | | mL/hr | | | 2,210 mg = 850 mg/m2 | | PDT | | | | | 2.6 [...] | | | | | | | Ifosfamide | | | | | | + +---------+ + +-------+---+ +---------+ + +-------+---+ | New Bag | | 2,200 mg | 488 | | | | 8 06:37 | | mL/hr | | | | PDT | | | | +---------+ + +-------+---+ | New Bag | | 2,200 mg | 488 | | | | 8 06:35 | | mL/hr | | | | PDT | | | | +---------+ + +-------+---+ +---+---+ | | | +---+---+ + + + +---+---+---+ | nystatin (MYCOSTATIN) powder | Pt | | | | | | topical, TWICE DAILY, First dose | Administ | 8 22:53 | | | | | on Sat02/19/18 at 2100, Until | ered | PDT | | | | | Discontinued | | | | | | + + + +---+---+---+ + + +---+---+---+ | Pt Administered | | | | | | | 8 20:17 | | | | | | PDT | | | | + + +---+---+---+ | Given | | | | | | | 8 09:04 | | | | | | PDT | | | | + + +---+---+---+ +---+---+ | | | +---+---+ + +-------+ +------+---+---+ | OLANZapine (ZYPREXA) tablet 5 | Given | | 5 mg | | | | mg 5 mg, oral, AT BEDTIME, First | | 8 21:23 | | | | | dose on Sat02/19/18 at 2200, | | PDT | | | | | Until Discontinued | | | | | | + +-------+ +------+---+---+ +-------+ +------+---+---+ | Given | | 5 mg | | | | | 8 20:51 | | | | | | PDT | | | | +-------+ +------+---+---+ | Given | | 5 mg | | | | | 8 20:56 | | | | | | PDT | | | | +-------+ +------+---+---+ +---+---+ | | | +---+---+ + +-------+ +-------+---+---+ | ondansetron (ZOFRAN) tablet 24 | Given | | 24 mg | | | | mg 24 mg, oral, EVERY 24 HOURS, | | 8 21:23 | | | | | 4 doses, First dose on Sat | | PDT | | | | | 02/19/18 at 2000, Last dose on Sat | | | | | | | 02/22/18 at 2200 | | | | | | + +-------+ +-------+---+---+ +-------+ +-------+---+---+ | Given | | 24 mg | | | | | 8 20:49 | | | | | | PDT | | | | +-------+ +-------+---+---+ | Given | | 24 mg | | | | | 8 21:25 | | | | | | PDT | | | | +-------+ +-------+---+---+ +---+---+ | | | +---+---+ + +-------+ +-------+---+---+ | oxyCODONE (immediate release) | Given | | 10 mg | | | | (ROXICODONE) tablet 5-15 mg 5-15 | | 8 20:56 | | | | | mg, oral, [...] mg | | | | | 8 09:49 | | | | | | PDT | | | | +-------+ +-------+---+---+ | Given | | 10 mg | | | | | 8 13:12 | | | | | | PDT | | | | +-------+ +-------+---+---+ +---+---+ | | | +---+---+ + +-------+ +------+---+---+ | polyethylene glycol (MIRALAX) | Given | | 17 g | | | | packet 17 g 17 g (1 packet), | | 8 10:00 | | | | | oral, DAILY, First dose on Wed | | PDT | | | | | 02/19/18 at 1999, Until | | | | | | | Discontinued | | | | | | + +-------+ +------+---+---+ +-------+ +------+---+---+ | Given | | 17 g | | | | | 8 11:41 | | | | | | PDT | | | | +-------+ +------+---+---+ +---+---+ | | | +---+---+ + +-------+ +------+---+---+ | polyethylene glycol (MIRALAX) | Given | | 17 g | | | | packet 17 g 17 g, oral, ONCE, 1 | | 8 20:51 | | | | | dose, 02/21/18 at 2115 | | PDT | | | | + +-------+ +------+---+---+ + +---+ | | | + +---+ | potassium chloride SR (K-DUR) | | | tablet 40 mEq 40 mEq, oral, | | | NEEDED, Starting 02/19/18 at | | | 1657, Until 02/23/18 at 1927, | | | potassium level 3-3.4 mmol/L [...] pregabalin (LYRICA) capsule 150 | Given | | 150 mg | | | | mg 150 mg, oral, TWICE DAILY, | | 8 10:21 | | | | | First dose on Sat02/21/18 at | | PDT | | | | | 1615, Until Discontinued | | | | | | + +-------+ +--------+---+---+ +-------+ +--------+---+---+ | Given | | 150 mg | | | | | 8 17:07 | | | | | | PDT | | | | +-------+ +--------+---+---+ | Given | | 150 mg | | | | | 8 09:34 | | | | | | PDT | | | | +-------+ +--------+---+---+ +---+---+ | | | +---+---+ + +-------+ +-------+---+---+ | pregabalin (LYRICA) capsule 75 | Given | | 75 mg | | | | mg 75 mg, oral, TWICE DAILY, | | 8 08:56 | | | | | First dose on Sat02/19/18 at | | PDT | | | | | 2100, Until Discontinued | | | | | | + +-------+ +-------+---+---+ +-------+ +-------+---+---+ | Given | | 75 mg | | | | | 8 20:17 | | | | | | PDT | | | | +-------+ +-------+---+---+ | Given | | 75 mg | | | | | 8 09:00 | | | | | | PDT [...] +-------+---+---+ | prochlorperazine (COMPAZINE) | Given | | 10 mg | | | | tablet 10 mg 10 mg, oral, EVERY | | 8 09:49 | | | | | 6 HOURS NEEDED, Starting Wed | | PDT | | | | | 02/19/18 [...] chloride 0.9% IV | New Bag | | 1,000 mL | | | | infusion 1,000 mL, intravenous, | | 8 21:46 | | | | | ONCE, 1 dose, 02/19/18 at 1730 | | PDT | | | | + +---------+ + +---+---+ +---+---+ | | | +---+---+ + +---------+ +-------+-------+---+ | sodium chloride 0.9% IV | New Bag | 6/24/201 | 125 | 125 | | | infusion 125 mL/hr, intravenous, | | 8 00:49 | mL/hr | mL/hr | | | CONTINUOUS, Starting Sat02/19/18 | | PDT | | | | | at 1930, Until Sat02/23/18 at | | | | | | | 1927 | | | | | | + +---------+ +-------+-------+---+ + + +-------+-------+---+ | Rate/Dose Verify | | 125 | 125 | | | | 8 05:00 | mL/hr | mL/hr | | | | PDT | | | | + + +-------+-------+---+ | New Bag | | 125 | 125 | | | | 8 09:48 | mL/hr | mL/hr | | | | PDT | | | | + + +-------+-------+---+ + +---+ | | | + +---+ | sodium phosphate IV 30 mmol 30 | | | mmol, intravenous, NEEDED, | | | Starting Sat02/19/18 at 1657, | | | Until 02/23/18 at 1926, | | | Administer for sodium level less | | | than 148 mmol/L and phosphate | | | level 1.6-2 mg/dL. | | + +---+ | | | + +---+ | sodium phosphate IV 40 mmol 40 | | | mmol, intravenous, NEEDED, | | | Starting Sat02/19/18 at 1656, | | | Until [place] 02/23/18 at 1926, | | | Administer for sodium level less | | | than 148 mmol/L and phosphate | | | level less than or equal to 1.5 | | | mg/dL. | | + +---+ | | | + +---+ in this encounter
--- OUTSIDE RECORDS SUMMARY | ~2018-04-16 | XMS | Encounter Summary ---
Demographics + + + | Address | [address] | | | [place] [address] | + + + | Home Phone [...] + + + | Author | [facility] | + + + | Organization | [facility] | + + + | Address | Unknown | + + + | Phone | Unavailable | + + + Support + + +---------+ + | Name | Relationship | Address | Phone | + + +---------+ + | ROSE BOWENS | ECON | Unknown | | + + +---------+ + Care Team Providers + +------+ + | Care Opto Mechanical Technician Name | Role | Phone | + +------+ + | Santo Gooden MD | PCP | | + +------+ + Encounter Details +--------+ + + + + | Date | Type | Department | Care Team | Description | +--------+ + + + + | 02/05/ | Pharmacy | [facility] | | | | 2018 | Visit | [facility] | | | | | | [address] | | | | | | [place], [place] | | | | | | [address] | | | | | | [phone] | | | +--------+ + + + [...] 2018 | | Oncology | [address] [facility] [facility] | | | | | | [place] [address] | | +--------+ + + + + | 04/24/ | Office | Hematology & | Annie Gannon, | | | 2018 | Visit | Oncology | [facility] [address] | | | | | | [place], [place] | | | | | | [address] | | | | | | [phone] | | | | | | | | +--------+ + + + + | 04/24/ | Hospital | Adult Acute Care | [facility], | | | 2017 | Encounter | | [address] | | | | | | [place], [place] | | | | | | [address] | | | | | | [phone] | | | | | | | [...] [address] | | | | | | [place], [place] | | | | | | [address] | | | | | | [phone] | | | | | | | | +--------+ + + + + as of this encounter Visit Diagnoses Not on filein this encounter"
--- OUTSIDE RECORDS SUMMARY | ~2018-04-16 | XMS | Encounter Summary ---
Demographics + + + | Address | [address] | | | [place] [address] | + + + | Home Phone [...] Providers + +------+ + | Care Tire Classifier Name | Role | Phone | + [...] | | 2018 | | [facility] | [address] | | | | | for [facility] | [place], [place] | | | | | [address] | [address] | | | | | Mailcode: [place] | [phone] | | | | | [facility] | | | | | | and [place], | | | | | | Floor [facility] [place] | | | | | | [address] | | | | | | [phone] | | | +--------+ + + + [...] Road | | | | | | [place] [address] | | +--------+ + + + + | 04/24/ | Office | Hematology & | Annie Gannon, | | | 2017 | Visit | Oncology | [place],RESEARCH PROFESSOR OF BIOSTATISTICS [address] | | | | | | [address] | | | | | | [place], [place] | | | | | | [address] | | | | | | [phone] | | | | | | | | +--------+ + + + + | 04/24/ | Hospital | Adult Acute Care | Savanna Mari, | | | 2017 | Encounter | | [address] | | | | | | [place], [place] | | | | | | [address] | | | | | | [phone] | | | | | | | [...] [address] | | | | | | [place], [place] | | | | | | [address] | | | | | | [phone] | | | | | | | | +--------+ + + + + as of this encounter Visit Diagnoses Not on filein this encounter"
--- OUTSIDE RECORDS SUMMARY | ~2018-04-16 | XMS | Encounter Summary ---
Demographics + + + | Address | [address] | | | [place] [address] | + + + | Home Phone [...] Providers + +------+ + | Care Horse Farm Manager Name | Role | Phone | [...] | 2018 | on | [facility] | PharmD [address] | (Take home | | | | for [facility] & Healing | [address] | anti-emetics) | | | | [address] | [place], [place] | | | | | Mailcode: CH7M | [address] | | | | | [facility] | | | | | | and [facility] | | | | | | [place], [place] | | | | | | [address] | | | | | | [phone] | | | +--------+ + + + [...] [address] | | | | | | [place] [address] | | +--------+ + + + + | 04/24/ | Office | Hematology & | Annie Gannon, | | | 2017 | Visit | Oncology | AGACNP,COMMUNICABLE DISEASE SPECIALIST [address] | | | | | [address] | | | | | | [place], [place] | | | | | | [address] | | | | | | [phone] | | | | | | | | +--------+ + + + + | 04/24/ | Hospital | Adult Acute Care | Savanna Mari, | | | 2018 | Encounter | | [address] | | | | | | [place], [place] | | | | | | [address] | | | | | | [phone] | | | | | | | [...] [address] | | | | | | [place] | | | | | | [address] | | | | | | [phone] | | | | | | | | +--------+ + + + + as of this encounter Visit Diagnoses Not on filein this encounter"
--- OUTSIDE RECORDS SUMMARY | ~2018-04-16 | XMS | Encounter Summary ---
Demographics + + + | Address | [address] | | | [place] [address] | + + + | Home Phone [...] Team Providers + +------+ + | Care Sports Book Server Name | Role | Phone | + +------+ + | Santo Gooden MD | PCP | | + +------+ + Encounter Details +--------+ + + + + | Date | Type | Department | Care Team | Description | +--------+ + + + + | 03/13/ | Pharmacy | Outpatient Retail | | | | 2018 | Visit | [facility] | | | | | | [address] | | | | | | [facility] | | | | | | [place], [place] | | | | | | [address] | | | +--------+ + + + [...] | | Oncology | [address] | | | | | | [place] [address] | | +--------+ + + + + | 04/24/ | Office | Hematology & | Annie Gannon, | | | 2018 | Visit | Oncology | [facility],REPORTS ANALYSIS MANAGER [address] | | | | | [address] | | | | | | [place], [place] | | | | | | [address] | | | | | | [phone] | | | | | | | | +--------+ + + + + | 04/24/ | Hospital | Adult Acute Care | Savanna Mari, | | | 2017 | Encounter | | [address] | | | | | | [facility] [place] | | | | | | [address] | | | | | | [phone] | | | | | | | [...] [address] | | | | | | [place], [place] | | | | | | [address] | | | | | | [phone] | | | | | | | | +--------+ + + + + as of this encounter Visit Diagnoses Not on filein this encounter"
--- OUTSIDE RECORDS SUMMARY | ~2018-04-16 | XMS | Encounter Summary ---
Demographics + + + | Address | [address] | | | [place] [address] | + + + | Home Phone [...] Team Providers + +------+ + | Care Manufacturing Cost Estimator Name | Role | Phone | + [...] [address] | | | | | | [facility] | | | | | | [place], [place] | | | | | | [address] | | | +--------+ + + + [...] | | Oncology | [address] | | | | | | [place] [address] | | +--------+ + + + + | 04/24/ | Office | Hematology & | Annie Gannon, | | | 2018 | Visit | Oncology | [facility],WOOD HEEL FINISHER [address] | | | | | [address] | | | | | | [place], [place] | | | | | | [address] | | | | | | [phone] | | | | | | | | +--------+ + + + + | 04/24/ | Hospital | Adult Acute Care | Savanna Mari, | | | 2017 | Encounter | | [address] | | | | | | [facility] [place] | | | | | | [address] | | | | | | [phone] | | | | | | | [...] Scott | | | | | | [facility] [place] | | | | | | [address] | | | | | | [phone] | | | | | | | | +--------+ + + + + as of this encounter Visit Diagnoses Not on filein this encounter"
--- OUTSIDE RECORDS SUMMARY | ~2018-04-16 | XMS | Encounter Summary ---
Demographics + + + | Address | [address] | | | [place] [address] | + + + | Home Phone [...] Team Providers + +------+ + | Care Art Objects Salesperson Name | Role | Phone | + [...] + + | 03/12/ | Hospital | [facility] [address] | Guero Vargas, | | | 2018 - | Encounter | [address] | [address] | | | | | Road Mailcode: | [place], [place] | | | 03/15/ | | [id number] | [address] | | | 2017 | | [place], | [phone] | | | | | [place] [address] | | | | | | [phone] | | | +--------+ + + + [...] Pressure | 146/62 | 03/15/2018 5:35 PM PDT | + + + + | Pulse | 97 | 03/15/2018 5:35 PM PDT | + + + + | Temperature | 36.6 C (97.9 F) | 03/15/2018 5:35 PM PDT | + + + + | Respiratory Rate | 16 | 03/15/2018 5:35 PM PDT | + + + + | Oxygen Saturation | 97% | 03/15/2018 5:35 PM PDT | + + + + | Inhaled Oxygen | - | - | | Concentration | | | + + + + | Weight | 148.1 kg (326 lb 8 | 03/15/2018 6:56 AM PDT | | | oz) | | + + + + | Height | 172.7 cm (5' 8") | 03/12/2018 6:22 PM PDT | + + + + | Body Mass Index | 49.64 | 03/15/2018 6:56 AM PDT | + + + + [...] + as of this encounter Discharge Summaries Leo Kim MD,PhD - 03/15/2018 11:01 AM PDTFormatting of this note may be different from the original. [facility] Discharge Summary Discharging Provider: Leo Kim Discharging [...] chemo as planned with close monitoring. - blankta scheduled @ [place] for 03/17 @ 10am. labs and port care @ [facility] start 03/21. Chemotherapy: C2D1 03/12/18 Ifos 2500mg/m^2 x 2.6 m^2with Mesna 2200mg in NaCl 0.9% for 2hrs q20hrs x 4doses Epirubicin 30mg/m2 x x 2.6 m^9x29ezp x 4doses Mesna 2200mg for 15minutes to [...] RLE:has not improved much since dc from [place] 1 week ago, pt also havin g [...] home dose Citalopram 40mg daily - start [id number] qhs adjunct to citalopram and for CINV [...] 2 without complication - neulasta scheduled @ [place] for 03/17 @ 10am. labs and port care @ [facility] start 03/21. Chemotherapy: C2D1 03/12/18 Ifos 2500mg/m^2 x 2.6 m^2with Mesna 2200mg in NaCl 0.9% for 2hrs q20hrs x 4doses Epirubicin 30mg/m2 x x 2.6 m^2j60ikl x 4doses Mesna 2200mg for 15minutes to [...] RLE:has not improved much since dc from [place] 1 week ago, pt also havin g [...] home dose Citalopram 40mg daily - start [id number] qhs adjunct to citalopram and for CINV [...] Discharge Medications: Tati Cage Home Medication Instructions [id number] Printed on:03/15/18 8943 Medication Information citalopram 40 mg oral tablet [...] Take 25 mg by mouth once daily. Ekaliunnv-Nuvxeupca-Xj-Mag-Sim [id number] mg/30 mL mucous membrane mouthwash Take 5 [...] as needed for anxiety (1st line nausea/vomiting). [facility] [...] hours and on weekends call paging stephanie barajas at [phone] ask for community organization aide doctor for Heme-Onc if you have any [...] PM Hem Starter Nurse Hematology/Medical Oncology at [facility] [phone] HemOn 04/02/2018 3:00 PM Lynda Basurto [facility] Orthopaedics & Rehabilitation [phone] [place] 04/02/2018 3:40 PM Sandra Patel Hematology/Medical Oncology at [place] [address] [phone] [place] Schedule the following appointment(s) when you get home [facility] Infusion. Go on 03/17/2018. Why: neulasta and labs appointment @ 10am. please make appointments for weekly lab draws while you're in. Contact information Phone #: [phone] Discharge Physical Exam: Last 24 hour min/max [...] - 03/15/2018 11:26 AM PDTDate of Service: 03/02 Medical Oncology Attending Note: I personally interviewed, [...] tonight and receive GCSF on Saturday at [facility]. We had to reduce t he dosage of dexamethasone due to insomnia and anxiety. This should be taken into considera tion for future admissions. Guero Vargas MD Vat Washertile erector Medical Oncology and Hematology in this encounter Discharge Instructions Niurka Jimenez, LISA - 03/15/2018 Additional [...] RN Date: 03/15/2018 Discharge Time: 6:00 PM in this encounter Medications at Time of [...] line | | | | | | ([facility]) | nausea/vomiting). | | | | | [...] for | | | | | | (HCC) [...] + as of this encounter Progress Notes Camryn Flynn PA-C - 03/14/2018 7:10 AM PDTFormatting of this note may be [...] She is admitted for C2D1 chemotherapy wi th Ifos/Epirubicin. Interim History: had exacerbation of anxiety/jitteriness [...] with close monitoring. - torie scheduled @ [place] for 03/17 @ 10am. labs and port care @ [facility] start 03/21. Chemotherapy: C2D1 03/12/18 Ifos 2500mg/m^2 x 2.6 m^2 with Mesna 2200mg in NaCl 0.9% for 2hrs q20hrs x 4doses Epirubicin 30mg/m2 x x 2.6 m^1q57qkk x 4doses Mesna 2200mg for 15minutes to [...] RLE:has not improved much since dc from [place] 1 week ago, pt also havin g [...] home dose Citalopram 40mg daily - start Yfeknvdcex64iz qhs adjunct to citalopram and for CINV [...] m onitoring for toxicity. 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 She is on clindamycin for her left stump incision which had early signs of in fection. Given that she will become neutropenic I have recommended prophylactic antibtoics. She displays no signs of infection. Guero Vargas MD Vat Washertile erector Medical Oncology and Hematology in this encounter Plan of Treatment +--------+ + + + + | Date | Type | Specialty | Care Team | Description | +--------+ + + + + | 04/24/ | Appointment | Hematology & | Nurse, Hem Starter | | | 2017 | | Oncology | [address] [facility] | | | | | | [place] [address] | | +--------+ + + + + | 04/24/ | Office | Hematology & | Annie Gannon, | | | 2017 | Visit | Oncology | [place],DIAMOND WHEEL MOLDER [address] | | | | | [address] | | | | | | [place], [place] | | | | | | [address] | | | | | | [phone] | | | | | | | | +--------+ + + + + | 04/24/ | Hospital | Adult Acute Care | Savanna Mari, | | | 2018 | Encounter | | [address] | | | | | | [place], [place] | | | | | | [address] | | | | | | [phone] | | | | | | | [...] [address] | | | | | | [place], [place] | | | | | | [address] | | | | | | [phone] | | | | | | | | +--------+ + + + + + +--------+ + + | Name | Priori | Associated Diagnoses | Order Schedule | | | ty | | | + +--------+ + + | URINE, MICROSCOPIC EXAM | Routin | | As Needed for 1 | | | e | | Occurrences starting | | | | | 03/12/2018 | + +--------+ + + | URINE SCREEN FOR CULTURE | Routin | | As Needed for 1 | | | e | | Occurrences starting | | | | | 03/12/2018 | + +--------+ + + | UA, DIPSTICK ONLY | Routin | | As Needed for 1 | | | e | | Occurrences starting | | | | | 03/12/2018 | + +--------+ + + | CULTURE, URINE BACTI | Routin | | As Needed for 1 | | | e | | Occurrences starting | | | | | 03/12/2018 | + +--------+ + + as of this encounter Results URINE, MICROSCOPIC EXAM (03/15/2018 6:15 AM) + +---------+ + | Component | [...] + + + | Urine | [facility], CORE [address] | | | [place] [address] | + + + URINE, MICROSCOPIC EXAM (03/14/2018 9:33 AM) + +---------+ + | Component | [...] + + + | Urine | [facility], CORE [address] | | | [place] [address] | + + + URINE, MICROSCOPIC EXAM (03/13/2018 2:55 PM) + +---------+ + | Component | [...] + + + | Urine | [facility], CORE [address] | | | [place] [address] | + + + VASC LAB VENOUS DUPLEX LOWER EXTREMITY RT (03/13/2018 12:08 PM) + + + | Specimen | Performing Laboratory | + + + | | [facility] RADIOLOGY VASC US | + + + + + [...] Service Account, Radiant Res In Interface - 03/13/2018 12:35 PM [...] report as now presented. 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, site unspecified | + + Admitting Diagnoses + + | Diagnosis | + + | Soft Tissue Sarcoma | + + Administered Medications + +--------+ +-------+------+------+ | Medication Order | MAR | Action | Dose | Rate | Site | | | Action | Date | | | | + +--------+ +-------+------+------+ | citalopram (CELEXA) tablet 40 | Given | | 40 mg | | | | mg 40 mg, oral, EVERY EVENING, | | 8 20:07 | | | | | First dose on Sat03/12/18 at | | PDT | | | | | 2145, Until Discontinued | | | | | | + +--------+ +-------+------+------+ +-------+ +-------+---+---+ | Given | | 40 mg | | | | | 8 21:00 | | | | | | PDT | | | | +-------+ +-------+---+---+ +---+---+ | | | +---+---+ + +-------+ +--------+---+---+ | clindamycin (CLEOCIN) capsule | Given | | 300 mg | | | | 300 mg 300 mg, oral, EVERY 6 | | 8 01:46 | | | | | HOURS, 40 doses, First dose on | | PDT | | | | | Bettie 03/13/18 at 1245, Last dose on | | | | | | | 03/23/18 at 0800 | | | | | | + +-------+ +--------+---+---+ +-------+ +--------+---+---+ | Given | | 300 mg | | | | | 8 08:09 | | | | | | PDT | | | | +-------+ +--------+---+---+ | Given | | 300 mg | | | | | 8 13:46 | | | | | | PDT | | | | +-------+ +--------+---+---+ +---+---+ | | | +---+---+ + +-------+ +-------+---+---+ | dexamethasone (DECADRON) tablet | Given | | 20 mg | | | | 20 mg 20 mg, oral, EVERY 20 | | 8 20:28 | | | | | HOURS, 4 doses, First dose on Wed | | PDT | | | | | 03/12/18 at 2000, Last dose on | | | | | | | 03/15/18 at 0800 | | | | | | + +-------+ +-------+---+---+ +-------+ +-------+---+---+ | Given | | 20 mg | | | | | 8 16:08 | | | | | | PDT | | | | +-------+ +-------+---+---+ +---+---+ | | | +---+---+ + +-------+ +------+---+---+ | dexamethasone (DECADRON) tablet | Given | | 8 mg | | | | 8 mg 8 mg, oral, EVERY 20 | | 8 12:30 | | | | | HOURS, 2 doses, First dose on Sat | | PDT | | | | | 03/14/18 at 1200, Last dose on | | | | | | | 03/15/18 at 0800 | | | | | | + +-------+ +------+---+---+ +-------+ +------+---+---+ | Given | | 8 mg | | | | | 8 08:09 | | | | | | PDT | | | | +-------+ +------+---+---+ +---+---+ | | | +---+---+ + +-------+ +-------+---+---------+ | enoxaparin (LOVENOX) injection | Given | | 40 mg | | Abdomen | | 40 mg 40 mg, subcutaneous, EVERY | | 8 08:49 | | | | | 12 HOURS, First dose on Sat | | PDT | | | | | 03/12/18 [...] | | Abdomen | | | 8 08:08 | | | | | | PDT | | | | +-------+ +-------+---+---------+ +---+---+ | | | +---+---+ + +---------+ +-------+---+---+ | epiRUBICIN injection 80 mg 80 | New Bag | | 80 mg | | | | mg (rounded from 78 mg = 30 mg/m2 | | 8 17:23 | | | | | | | [...] mg | | | | | 8 13:25 | | | | | | PDT | | | | +---------+ +-------+---+---+ | New Bag | | 80 mg | | | | | 8 09:08 | | | | | | PDT | | | | +---------+ +-------+---+---+ +---+---+ | | | +---+---+ + +-------+ +-------+---+---+ | famotidine (PEPCID) tablet 40 | Given | | 40 mg | | | | mg 40 mg, oral, AT BEDTIME, | | 8 20:07 | | | | | First dose on Sat03/12/18 at | | PDT | | | | | 2200, Until Discontinued | | | | | | + +-------+ +-------+---+---+ +-------+ +-------+---+---+ | Given | | 40 mg | | | | | 8 21:00 | | | | | | PDT | | | | +-------+ +-------+---+---+ | Given | | 40 mg | | | | | 8 15:39 | | | | | | PDT | | | | +-------+ +-------+---+---+ +---+---+ | | | +---+---+ + +-------+ +-------+---+---+ | furosemide (LASIX) injection 20 | Given | | 20 mg | | | | mg 20 mg, intravenous, ONCE, 1 | | 8 20:56 | | | | | dose, 03/14/18 at 2015 | | PDT | | | | [...] 500 Units 500 Units, | | 8 17:27 | Units | | | | intravenous, NEEDED, Starting | | PDT | | | | | 03/14/18 at 1819, Until Sat | | | | | | | 03/15/18 at 2355, deaccessing | | | | | | | line/port | | | | | | + +-------+ +-------+---+---+ +-------+ +-------+---+---+ | Given | | 500 | | | | | 8 17:28 | Units | | | | | PDT | | | | +-------+ +-------+---+---+ +---+---+ | | | +---+---+ + +-------+ +-------+---+---+ | hydroCHLOROthiazide | Given | | 25 mg | | | | (HYDRODIURIL) tablet 25 mg 25 | | 8 08:26 | | | | | mg, oral, DAILY, First dose on | | PDT | | | | | 03/12/18 at 2045, Until | | | | | | | Discontinued | | | | | | + +-------+ +-------+---+---+ +-------+ +-------+---+---+ | Given | | 25 mg | | | | | 8 08:40 | | | | | | PDT | | | | +-------+ +-------+---+---+ | Given | | 25 mg | | | | | 8 08:09 | | | | | | PDT | | | | +-------+ +-------+---+---+ +---+---+ | | | +---+---+ + +---------+ + +-------+---+ | ifosfamide (IFEX) 2,500 mg/m2 = | New Bag | | 6,500 mg | 250 | | | 6,500 mg, mesna (MESNEX) 2,200 | | 8 17:33 | | mL/hr | | | mg in NaCl 0.9 % (NS) IV 6,500 | | PDT | | | | | mg [...] | 250 | | | | 8 13:41 | | mL/hr | | | | PDT | | | | +---------+ + +-------+---+ | New Bag | | 6,500 mg | 250 | | | | 8 09:09 | | mL/hr | | | | PDT | | | | +---------+ + +-------+---+ +---+---+ | | | +---+---+ + +-------+ +-------+---+---+ | loratadine (CLARITIN) tablet 10 | Given | | 10 mg | | | | mg 10 mg, oral, DAILY, First | | 8 08:26 | | | | | dose on Sat03/12/18 at 2045, | | PDT | | | | | Until Discontinued | | | | | | + +-------+ +-------+---+---+ +-------+ +-------+---+---+ | Given | | 10 mg | | | | | 8 08:39 | | | | | | PDT | | | | +-------+ +-------+---+---+ | Given | | 10 mg | | | | | 8 08:09 | | | | | | PDT | | | | +-------+ +-------+---+---+ +---+---+ | | | +---+---+ + +-------+ +--------+---+---+ | LORazepam (ATIVAN) tablet 0.5 | Given | | 0.5 mg | | | | mg 0.5 mg, oral, EVERY 24 HOURS | | 8 02:18 | | | | | NEEDED, Starting 03/12/18 | | PDT | | | | | at 2000, Until Bettie 03/13/18 at | | | | | | | 0231, anxiety premedication for | | | | | | | chemo | | | | | | + +-------+ +--------+---+---+ +---+---+ | | | +---+---+ + +-------+ +--------+---+---+ | LORazepam (ATIVAN) tablet 0.5-1 | Given | | 0.5 mg | | | | mg 0.5-1 mg, oral, EVERY 8 | | 8 20:07 | | | | | HOURS NEEDED, Starting [facility] | | PDT | | | | | 03/13/18 at 0245, Until Sat | | | | | | | 03/15/18 at 2355, anxiety, also | | | | | | | premedication for chemo | | | | | | + +-------+ +--------+---+---+ +-------+ +--------+---+---+ | Given | | 0.5 mg | | | | | 8 21:38 | | | | | | PDT [...] (NS) IV 2,200 mg (rounded | | 8 20:45 | | mL/hr | | | from [...] | 488 | | | | 8 17:28 | | mL/hr | | | | PDT | | | | +---------+ + +-------+---+ | New Bag | | 2,200 mg | 488 | | | | 8 13:01 | | mL/hr | | | | PDT | | | | +---------+ + +-------+---+ +---+---+ | | | +---+---+ + +---------+ + +-------+---+ | mesna (MESNEX) 2,200 mg in NaCl | New Bag | | 2,200 mg | 488 | | | 0.9 % (NS) IV 2,200 mg (rounded | | 8 01:00 | | mL/hr | | | from [...] | 488 | | | | 8 20:56 | | mL/hr | | | | PDT | | | | +---------+ + +-------+---+ | New Bag | | 2,200 mg | 488 | | | | 8 17:06 | | mL/hr | | | | PDT | | | | +---------+ + +-------+---+ +---+---+ | | | +---+---+ + + + +---+---+---+ | nystatin (MYCOSTATIN) powder | Pt | | | | | | topical, TWICE DAILY, First dose | Administ | 8 10:03 | | | | | on Sat03/13/18 at 2100, Until | ered | PDT | | | | | Discontinued | | | | | | + + + +---+---+---+ +-------+ +---+---+---+ | Given | | | | | | | 8 21:02 | | | | | | PDT | | | | +-------+ +---+---+---+ | Given | | | | | | | 8 13:03 | | | | | | PDT | | | | +-------+ +---+---+---+ +---+---+ | | | +---+---+ + +-------+ +-------+---+---+ | OLANZapine (ZYPREXA) tablet 10 | Given | | 10 mg | | | | mg 10 mg, oral, AT BEDTIME, | | 8 22:52 | | | | | First dose on Sat03/14/18 at | | PDT | | | | | 2200, Until Discontinued | | | | | | + +-------+ +-------+---+---+ +---+---+ | | | +---+---+ + +-------+ +------+---+---+ | OLANZapine (ZYPREXA) tablet 5 | Given | | 5 mg | | | | mg 5 mg, oral, AT BEDTIME, First | | 8 20:28 | | | | | dose on Sat03/12/18 at 2200, | | PDT | | | | | Until Discontinued | | | | | | + +-------+ +------+---+---+ +-------+ +------+---+---+ | Given | | 5 mg | | | | | 8 20:07 | | | | | | PDT | | | | +-------+ +------+---+---+ +---+---+ | | | +---+---+ + +-------+ +-------+---+---+ | ondansetron (ZOFRAN) tablet 24 | Given | | 24 mg | | | | mg 24 mg, oral, EVERY 20 HOURS, | | 8 16:08 | | | | | 4 doses, First dose on Sat | | PDT | | | | | 03/12/18 at 2000, Last dose on Sat | | | | | | | 03/15/18 at 0800 | | | | | | + +-------+ +-------+---+---+ +-------+ +-------+---+---+ | Given | | 24 mg | | | | | 8 12:30 | | | | | | PDT | | | | +-------+ +-------+---+---+ | Given | | 24 mg | | | | | 8 08:09 | | | | | | PDT | | | | +-------+ +-------+---+---+ +---+---+ | | | +---+---+ + +-------+ +-------+---+---+ | oxyCODONE (immediate release) | Given | | 10 mg | | | | (ROXICODONE) tablet 5-15 mg 5-15 | | 8 22:21 | | | | | mg, oral, [...] mg | | | | | 8 17:52 | | | | | | PDT | | | | +-------+ +-------+---+---+ +---+---+ | | | +---+---+ + +-------+ +------+---+---+ | polyethylene glycol (MIRALAX) | Given | | 17 g | | | | packet 17 g 17 g (1 packet), | | 8 08:26 | | | | | oral, DAILY, First dose on Sat | | PDT | | | | | 03/12/18 at 2044, Until | | | | | | | Discontinued | | | | | | + +-------+ +------+---+---+ +-------+ +------+---+---+ | Given | | 17 g | | | | | 8 08:39 | | | | | | PDT | | | | +-------+ +------+---+---+ | Given | | 17 g | | | | | 8 06:57 | | | | | | PDT [...] mmol, intravenous, NEEDED, | | | Starting Sat03/12/18 at 1851, | | | Until 03/15/18 [...] mg, oral, TWICE DAILY, | | 8 17:33 | | | | | First dose on Sat03/12/18 at | | PDT | | | | | 2100, Until Discontinued | | | | | | + +-------+ +--------+---+---+ +-------+ +--------+---+---+ | Given | | 225 mg | | | | | 8 08:08 | | | | | | PDT | | | | +-------+ +--------+---+---+ | Given | | 225 mg | | | | | 8 17:03 | | | | | | PDT [...] 10 mg, oral, EVERY | | 8 15:07 | | | | | 6 HOURS NEEDED, Starting Bettie | | PDT | | | | | 03/13/18 [...] 10 mg, oral, EVERY | | 8 12:03 | | | | | 8 HOURS, First dose on Fri | | PDT | | | | | 03/14/18 at 1015, Until | | | | | | | Discontinued | | | | | | + +-------+ +-------+---+---+ +-------+ +-------+---+---+ | Given | | 10 mg | | | | | 8 20:59 | | | | | | PDT | | | | +-------+ +-------+---+---+ | Given | | 10 mg | | | | | 8 06:19 | | | | | | PDT | | | | +-------+ +-------+---+---+ +---+---+ | | | +---+---+ + +---------+ + +---+---+ | sodium chloride 0.9 % (NS) IV | New Bag | | 1,000 mL | | | | infusion 1,000 mL, intravenous, | | 8 18:52 | | | | | ONCE, 1 dose, Sat03/12/18 at 1845 | | PDT | | | | + +---------+ + +---+---+ +---+---+ | | | +---+---+ + +---------+ +-------+-------+---+ | sodium chloride 0.9 % (NS) IV | New Bag | | 125 | 125 | | | infusion 125 mL/hr, intravenous, | | 8 09:07 | mL/hr | mL/hr | | | CONTINUOUS, Starting Sat03/12/18 | | PDT | | | | | at 2000, Until 03/15/18 at | | | | | | | 2355 | | | | | | + +---------+ +-------+-------+---+ + + +-------+-------+---+ | Rate/Dose Verify | | 125 | 125 | | | | 8 12:00 | mL/hr | mL/hr | | | | PDT | | | | + + +-------+-------+---+ | Rate/Dose Verify | | 125 | 125 | | | | 8 15:00 | mL/hr | mL/hr | | | [...]
--- OUTSIDE RECORDS SUMMARY | ~2018-04-16 | XMS | Encounter Summary ---
Demographics + + + | Address | [address] | | | [place] [address] | + + + | Home Phone [...] Author + + + | Author | [facility] | + + + | Organization | [facility] | + + + | Address | Unknown | + + + | Phone | Unavailable | + + + Support + + +---------+ + | Name | Relationship | Address | Phone | + + +---------+ + | ROSE BOWENS | ECON | Unknown | | + + +---------+ + Care Team Providers + +------+ + | Care Hoistman Name | Role | Phone | + [...] | | 2018 | | [facility] [place] | [address] | | | | | for Health & Healing | [place], [place] | | | | | [address] | [address] | | | | | Mailcode: [facility] | [phone] | | | | | [facility] | | | | | | and Healing, 7th | | | | | | Floor [place], [place] | | | | | | [address] | | | | | | [phone] | | | +--------+ + + + [...] Jackman | | | | | | [place] [address] | | +--------+ + + + + | 04/24/ | Office | Hematology & | Annie Gannon, | | | 2017 | Visit | Oncology | AGASHANAE,DROP WIRE ALIGNER [address] | | | | | | [address] | | | | | | [place], [place] | | | | | | [address] | | | | | | [phone] | | | | | | | | +--------+ + + + + | 04/24/ | Hospital | Adult Acute Care | Savanna Mari, | | | 2018 | Encounter | | [address] | | | | | | [place], [place] | | | | | | [address] | | | | | | [phone] | | | | | | | [...] [address] | | | | | | [place] | | | | | | [address] | | | | | | [phone] | | | | | | | | +--------+ + + + + as of this encounter Visit Diagnoses Not on filein this encounter"
--- OUTSIDE RECORDS SUMMARY | ~2018-04-16 | XMS | Encounter Summary ---
Demographics + + + | Address | [address] | | | [place] [address] | + + + | Home Phone [...] Team Providers + +------+ + | Care Foot Miter Operator Name | Role | Phone | [...] (nerve pain) | | 2017 | | [facility] [address] | [address] [facility] | | | | | [place] Mailcode: CH[address]A | [address] | | | | | [facility] | [place], [place] | | | | | and [facility] | [address] | | | | | Floor [place], [place] | [phone] | | | | | [address] | | | | | | [phone] | | | +--------+ + + + [...] Jackman | | | | | | [place] [address] | | +--------+ + + + + | 04/24/ | Office | Hematology & | Annie Gannon, | | | 2017 | Visit | Oncology | [place],[address] | | | | | [address] | | | | | | [place], [place] | | | | | | [address] | | | | | | [phone] | | | | | | | | +--------+ + + + + | 04/24/ | Hospital | Adult Acute Care | Savanna Mari, | | | 2017 | Encounter | | [address] | | | | | | [place], [place] | | | | | | [address] | | | | | | [phone] | | | | | | | [...] [address] | | | | | | [place] | | | | | | [address] | | | | | | [phone] | | | | | | | | +--------+ + + + + as of this encounter Visit Diagnoses Not on filein this encounter"
--- OUTSIDE RECORDS SUMMARY | ~2018-04-16 | XMS | Encounter Summary ---
Demographics + + + | Address | [address] | | | [place] [address] | + + + | Home Phone [...] Providers + +------+ + | Care Child Specialist Name | Role | Phone | [...] | | 2018 | | [facility] | [address] | | | | | [facility] | [place], [place] | | | | | [address] | [address] | | | | | Mailcode: [facility] | [phone] | | | | | [facility] | | | | | | and Healing, 7th | | | | | | Floor [place], [place] | | | | | | [address] | | | | | | [phone] | | | +--------+ + + + [...] [address] | | | | | | [place] [address] | | +--------+ + + + + | 04/24/ | Office | Hematology & | Annie Gannon, | | | 2017 | Visit | Oncology | AGASHANAE,CHRONOMETER TESTER [address] | | | | | [address] | | | | | | [place], [place] | | | | | | [address] | | | | | | [phone] | | | | | | | | +--------+ + + + + | 04/24/ | Hospital | Adult Acute Care | Savanna Mari, | | | 2018 | Encounter | | [address] | | | | | | [place], [place] | | | | | | [address] | | | | | | [phone] | | | | | | | [...] [address] | | | | | | [place] | | | | | | [address] | | | | | | [phone] | | | | | | | | +--------+ + + + + as of this encounter Visit Diagnoses Not on filein this encounter"
--- OUTSIDE RECORDS SUMMARY | ~2018-04-16 | XMS | Encounter Summary ---
Demographics + + + | Address | [address] | | | [place] [address] | + + + | Home Phone | | + + + | Preferred Language | Unknown | + + + | Marital Status | Single | + + + | Advent Affiliation | CAT | + + + [...] Team Providers + +------+ + | Care Chemistry Manager Name | Role | Phone | [...] site | | 2018 | Encounter | [facility] [address] | [address] [facility] | irritation | | | | Ave Mailcode: CH12A | [facility] | | | | | [facility] | [place], [place] | | | | | and | [address] | | | | | Floor [place], [place] | [phone] | | | | | [address] | | | | | | [phone] | | | +--------+ + + + [...] | Oncology | [address] [facility] | | | | | | [place] [address] | | +--------+ + + + + | 04/24/ | Office | Hematology & | Annie Gannon, | | | 2017 | Visit | Oncology | [facility] [address] | | | | | | [address] | | | | | | [place], [place] | | | | | | [address] | | | | | | [phone] | | | | | | | | +--------+ + + + + | 04/24/ | Hospital | Adult Acute Care | Savanna Mari, | | | 2017 | Encounter | | [address] | | | | | | [place], [place] | | | | | | [address] | | | | | | [phone] | | | | | | | [...] Scott | | | | | | [place], [place] | | | | | | [address] | | | | | | [phone] | | | | | | | | +--------+ + + + + as of this encounter Visit Diagnoses Not on filein this encounter"
--- OUTSIDE RECORDS SUMMARY | ~2018-04-16 | XMS | Encounter Summary ---
Demographics + + + | Address | [address] | | | [place] [address] | + + + | Home Phone [...] Team Providers + +------+ + | Care Pharmacist In Charge Owner Name | Role | Phone | + [...] | | for Health & Healing | [place], [place] | (CHEMOTHERAPY | | | | [address] | [address] | Epi/Ifos C3); Care | | | | Mailcode: [facility] | [phone] | Coordination | | | | [facility] | | (NEULASTA) | | | | and [facility] | | | | | | [place], [place] | | | | | | [address] | | | | | | [phone] | | | +--------+ + + + [...] [place] | | | | | | [place] [address] | | +--------+ + + + + | 04/24/ | Office | Hematology & | Annie Gannon, | | | 2017 | Visit | Oncology | [facility] [address] | | | | | | [address] | | | | | | [place], [place] | | | | | | [address] | | | | | | [phone] | | | | | | | | +--------+ + + + + | 04/24/ | Hospital | Adult Acute Care | Savanna Mari, | | | 2017 | Encounter | | [address] | | | | | | [place], [place] | | | | | | [address] | | | | | | [phone] | | | | | | | [...] Scott | | | | | | [place], [place] | | | | | | [address] | | | | | | [phone] | | | | | | | | +--------+ + + + + as of this encounter Visit Diagnoses + + | Diagnosis | + + | Thrombocytopenia (HCC) - Primary | + + | Thrombocytopenia, unspecified | + + | Synovial sarcoma (HCC) | + + | 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
--- OUTSIDE RECORDS SUMMARY | ~2018-04-16 | XMS | Encounter Summary ---
Demographics + + + | Address | [address] | | | [place] [address] | + + + | Home Phone [...] + + + | Author | [facility] | + + + | Organization | [facility] | + + + | Address | Unknown | + + + | Phone | Unavailable | + + + Support + + +---------+ + | Name | Relationship | Address | Phone | + + +---------+ + | ROSE BOWENS | ECON | Unknown | | + + +---------+ + Care Team Providers + +------+ + | Care Stereotype Molder Name | Role | Phone | + +------+ + | Santo Gooden MD | PCP | | + +------+ + Reason for Visit + + + | Reason | Comments | + + + | Scheduling | | + + + Encounter Details +--------+ + + + + | Date | Type | Department | Care Team | Description | +--------+ + + + + | 02/20/ | Telephone | Hematology/Medical | Sandra Patel MD | Scheduling | | 2018 | | [facility] | [address] | | | | | for Health & Healing | [place], [place] | | | | | [address] | [address] | | | | | Mailcode: CH7 | [phone] | | | | | [facility] | | | | | | and | | | | | | Floor [place], [place] | | | | | | [address] | | | | | | [phone] | | | +--------+ + + + [...] | +--------+ + + + + | 08/23/ | Appointment | Hematology & | Darwin Juan | | | 2017 | | Oncology | [address] | | | | | | [place] [address] | | +--------+ + + + + | 04/24/ | Office | Hematology & | Annie Gannon, | | | 2017 | Visit | Oncology | [facility],INFANTRY OPERATIONS SPECIALIST [address] | | | | | | [address] | | | | | | [place], [place] | | | | | | [address] | | | | | | [phone] | | | | | | | | +--------+ + + + + | 04/24/ | Hospital | Adult Acute Care | Savanna Mari, | | | 2017 | Encounter | | MD [address] | | | | | | [place], [place] | | | | | | [address] | | | | | | [phone] | | | | | | | [...] | | | | | | [place], [place] | | | | | | [address] | | | | | | [phone] | | | | | | | | +--------+ + + + + as of this encounter Visit Diagnoses Not on filein this encounter"
--- OUTSIDE RECORDS SUMMARY | ~2018-04-16 | XMS | Encounter Summary ---
Demographics + + + | Address | [address] | | | [place] [address] | + + + | Home Phone [...] Author + + + | Author | [facility] | + + + | Organization | [facility] | + + + | Address | Unknown | + + + | Phone | Unavailable | + + + Support + + +---------+ + | Name | Relationship | Address | Phone | + + +---------+ + | ROSE BOWENS | ECON | Unknown | | + + +---------+ + Care Team Providers + +------+ + | Care Metal Sander Name | Role | Phone | [...] + + | 04/09/ | Hospital | [facility] [address] | Linh Pack, | | | 2018 | Encounter | [address] | [address] | | | | | Road Mailcode: | [place], [place] | | | | | [address] | [address] | | | | | [place], | [phone] | | | | | [place] [address] | | | | | | [phone] | | | +--------+ + + + [...] [address] | | | | | | [place] [address] | | +--------+ + + + + | 04/24/ | Office | Hematology & | Annie Gannon, | | | 2017 | Visit | Oncology | ROME,CASE FOLDER [address] | | | | | [address] | | | | | | [place], [place] | | | | | | [address] | | | | | | [phone] | | | | | | | | +--------+ + + + + | 04/24/ | Hospital | Adult Acute Care | Savanna Mari, | | | 2017 | Encounter | | [address] | | | | | | [place], [place] | | | | | | [address] | | | | | | [phone] | | | | | | | [...] Scott | | | | | | [place], [place] | | | | | | [address] | | | | | | [phone] | | | | | | | [...]
--- OUTSIDE RECORDS SUMMARY | ~2018-04-16 | XMS | Encounter Summary ---
Demographics + + + | Address | [address] | | | [place] [address] | + + + | Home Phone [...] Team Providers + +------+ + | Care Contact Center Engineer Name | Role | Phone | [...] | | | 2017 | Event | [facility] | Kemar Rodgers CRNA | | | | | Admitting Desk | [address] [facility] | | | | | Located [facility] | [facility], | | | | | floor [address] [facility] [place] [address] | | | | | [facility] | [phone] | | | | | [place], [place] | | | | | | [address] | | | +--------+ + + + [...] mL | + +---------+ + + | No agents on file. [...] by | 03/26/18 0000 by | | pop | SHELBY; Left; Forearm; 18 g; | [...] [address] | | | | | | [place] [address] | | +--------+ + + + + | 04/24/ | Office | Hematology & | Annie Gannon, | | | 2017 | Visit | Oncology | [facility] [address] | | | | | | [address] | | | | | | [place], [place] | | | | | | [address] | | | | | | [phone] | | | | | | | | +--------+ + + + + | 04/24/ | Hospital | Adult Acute Care | Savanna Mari, | | | 2017 | Encounter | | [address] | | | | | | [place], [place] | | | | | | [address] | | | | | | [phone] | | | | | | | [...] Scott | | | | | | [place], [place] | | | | | | [address] | | | | | | [phone] | | | | | | | | +--------+ + + + + as of this encounter Results CHRISTI LARRY (03/24/2018 11:45 AM) + + | Narrative | + + | Kemar Narayanan CRNA 03/24/2018 11:46 AM Procedure Reason for | | Intubation: For surgical procedure, Location Performed: [place] , Patient was preoxygenated | | Mask Ventilation Grade 1 - Ventilated by mask Intubation Blade type: Kevin | | , Blade size: 3, Atraumatic laryngoscopy: Atraumatic Laryngoscopy, Intubation | | adjuncts: Ramp , Laryngoscopic view: Grade I, Fiberoptics used: N/A , Number of | | Attempts: 1, Positive for EtCO2: Yes, Breath sounds: Bilateral and equal ETT | | Ett Adult: Single-lumen cuffed ETT Size: 7 ETT secured with: adhesive tape Depth | | at Lip: 21 Cm Airway leak: Yes Narrative Attending physically | | present | + + in this encounter Visit Diagnoses Not on filein this encounter Administered Medications + +--------+ +--------+------+------+ | Medication Order | MAR | Action | Dose | Rate | Site | | | Action | Date | | | | + +--------+ +--------+------+------+ | fentaNYL (SUBLIMAZE) injection | Given | | 50 mcg | | | | INTRAPROCEDURE PRN, Starting Mon | | 8 11:28 | | | | | 03/24/18 at 1121, Until Mon | | PDT | | | | | 03/24/18 at 1251 | | | | | | + +--------+ +--------+------+------+ +-------+ +--------+---+---+ | Given | | 25 mcg | | | | | 8 11:56 | | | | | | PDT | | | | +-------+ +--------+---+---+ | Given | | 25 mcg | | | | | 8 12:03 | | | | | | PDT | | | | +-------+ +--------+---+---+ +---+---+ | | | +---+---+ + +-------+ +--------+---+---+ | HYDROmorphone (DILAUDID) | Given | | 0.4 mg | | | | injection INTRAPROCEDURE PRN, | | 8 12:14 | | | | | Starting 03/24/18 at 1214, | | PDT | | | | | Until 03/24/18 at 1251 | | | | | | + +-------+ +--------+---+---+ +---+---+ | | | +---+---+ + +---------+ +---+---+---+ | lactated Ringers IV | New Bag | | | | | | INTRAPROCEDURE CONTINUOUS PRN, | | 8 12:50 | | | | | Starting 03/24/18 at 1250, | | PDT | | | | | Until Sat03/24/18 at 1252 | | | | | | + +---------+ +---+---+---+ + + +---+---+---+ | given by anesthesiology | | | | | | | 8 12:52 | | | | | | PDT | | | | + + +---+---+---+ +---+---+ | | | +---+---+ + +-------+ +------+---+---+ | midazolam (PF) (VERSED) | Given | | 1 mg | | | | injection INTRAPROCEDURE PRN, | | 8 11:09 | | | | | Starting 03/24/18 at 1109, | | PDT | | | | | Until 03/24/18 at 1251 | | | | | | + +-------+ +------+---+---+ +---+---+ | | | +---+---+ + +-------+ +--------+---+---+ | propofol (DIPRIVAN) injection | Given | | 200 mg | | | | INTRAPROCEDURE PRN, Starting Mon | | 8 11:26 | | | | | 03/24/18 at 1126, Until Mon | | PDT | | | | | 03/24/18 at 1251 | | | | | | + +-------+ +--------+---+---+ +---+---+ | | | +---+---+ + +-------+ +--------+---+---+ | succinylcholine (ANECTINE) | Given | | 140 mg | | | | injection INTRAPROCEDURE PRN, | | 8 11:26 | | | | | Starting Sat03/24/18 at 1126, | | PDT | | | | | Until Sat03/24/18 at 1251 | | | | | | + +-------+ +--------+---+---+ +---+---+ | | | +---+---+ in this encounter"
--- OUTSIDE RECORDS SUMMARY | ~2018-04-16 | XMS | Encounter Summary ---
Demographics + + + | Address | [address] | | | [place] [address] | + + + | Home Phone [...] Team Providers + +------+ + | Care Sand Bobber Name | Role | Phone | + [...] | | 2017 | | [facility] [place] | | | | | | for Health & Healing | | | | | | [address] | | | | | | Mailcode: CH7M | | | | | | [facility] | | | | | | and Healing, 7th | | | | | | Floor [place], [place] | | | | | | [address] | | | | | | [phone] | | | +--------+ + + + [...] Road | | | | | | [place] [address] | | +--------+ + + + + | 04/24/ | Office | Hematology & | Annie Gannon, | | | 2017 | Visit | Oncology | ROME,TREASURY REPRESENTATIVE [address] | | | | | [address] | | | | | | [place], [place] | | | | | | [address] | | | | | | [phone] | | | | | | | | +--------+ + + + + | 04/24/ | Hospital | Adult Acute Care | Savanna Mari, | | | 2017 | Encounter | | MD [address] | | | | | | [place], [place] | | | | | | [address] | | | | | | [phone] | | | | | | | [...] Scott | | | | | | [place], [place] | | | | | | [address] | | | | | | [phone] | | | | | | | | +--------+ + + + + as of this encounter Visit Diagnoses Not on filein this encounter"
--- OUTSIDE RECORDS SUMMARY | ~2018-04-16 | XMS | Encounter Summary ---
Demographics + + + | Address | [address] | | | [place] [address] | + + + | Home Phone [...] Author + + + | Author | [facility] | + + + | Organization | [facility] | + + + | Address | Unknown | + + + | Phone | Unavailable | + + + Support + + +---------+ + | Name | Relationship | Address | Phone | + + +---------+ + | ROSE BOWENS | ECON | Unknown | | + + +---------+ + Care Team Providers + +------+ + | Care Wheel Alignment Technician Name | Role | Phone | [...] | | 2018 | | Oncology at [place] | [address] | | | | | for Health & Healing | [place], [place] | | | | | [address] | [address] | | | | | Mailcode: [facility] | [phone] | | | | | [facility] | | | | | | and Healing, 7th | | | | | | Floor [place], [place] | | | | | | [address] | | | | | | [phone] | | | +--------+ + + + [...] [address] | | | | | | [place] [address] | | +--------+ + + + + | 04/24/ | Office | Hematology & | Annie Gannon, | | | 2017 | Visit | Oncology | AGASHANAE,MUD BOSS [address] | | | | | | [address] | | | | | | [place], [place] | | | | | | [address] | | | | | | [phone] | | | | | | | | +--------+ + + + + | 04/24/ | Hospital | Adult Acute Care | Savanna Mari, | | | 2018 | Encounter | | [address] | | | | | | [place], [place] | | | | | | [address] | | | | | | [phone] | | | | | | | [...] | | | | | | [place] | | | | | | [address] | | | | | | [phone] | | | | | | | | +--------+ + + + + as of this encounter Visit Diagnoses Not on filein this encounter"
--- OUTSIDE RECORDS SUMMARY | ~2018-04-16 | XMS | Encounter Summary ---
Demographics + + + | Address | [address] | | | [place] [address] | + + + | Home Phone | | + + + | Preferred Language | Unknown | + + + | Marital Status | Single | + + + | Orthodoxy Affiliation | CAT | + + + [...] Team Providers + +------+ + | Care Crusher Setter Name | Role | Phone | [...] Nascimento | | | | | | [facility] | | | | | | [place], [place] | | | | | | [address] | | | +--------+ + + + [...] | Appointment | Hematology & | Drawin Juaner | | | 2017 | | Oncology | [address] [facility] | | | | | | [place] [address] | | +--------+ + + + + | 04/24/ | Office | Hematology & | Annie Gannon, | | | 2017 | Visit | Oncology | [facility] [address] | | | | | | [address] | | | | | | [place], [place] | | | | | | [address] | | | | | | [phone] | | | | | | | | +--------+ + + + + | 04/24/ | Hospital | Adult Acute Care | Savanna Mari, | | | 2018 | Encounter | | [address] | | | | | | [place], [place] | | | | | | [address] | | | | | | [phone] | | | | | | | [...] Scott | | | | | | [facility] [place] | | | | | | [address] | | | | | | [phone] | | | | | | | | +--------+ + + + + as of this encounter Visit Diagnoses Not on filein this encounter"
--- OUTSIDE RECORDS SUMMARY | ~2018-04-16 | XMS | Encounter Summary ---
Demographics + + + | Address | [address] | | | [place] [address] | + + + | Home Phone [...] Team Providers + +------+ + | Care Geosciences Faculty Member Name | Role | Phone | + [...] + + | 02/19/ | Hospital | [facility] [address] | Leighann Yost MD | | | 2018 - | Encounter | [facility] | [address] [facility] | | | | | Road Mailcode: | [facility] [address] | | | 02/23/ | | [address] | [place], [place] | | | 2018 | | [place], | [address] | | | | | [place] [address] | [phone] | | | | | [phone] | | | +--------+ + + + [...] note may be different from nikunj lin. [facility] [place] Discharge Summary Discharging Provider: ROMEO SKY MD [...] @ 845am, labs and port care @ [facility] on 02/28/18, pt should make apt when she is in for neulasta. Sent request to venessa to arrange for fu @ [facility] for C2, the y will contact pt. [...] mood/anxiety. Take as prescribed previously. Please contact [facility] provider regarding questions concerning this medication. CLARITIN 10 mg Tab Generic drug: loratadine Take 10 mg by mouth once daily. Notes to patient: For pain related to growth factor administration as well as seasonal all ergies. Available zept-pyz-frpuxlo. Regarding pain related to growth factor administration [...] agent. Apply as previously prescribed. [facility] regarding any questions/concerns or further [...] in chilled liquid. Over-the -counter. Alternatively consider rzca-rcz-bujptnh sennosides (Senna) or bisacodyl tablets by mouth [...] AM/4 in PM). Soft, daily BM desired. Mtes-dos-exxkeou. Also consider over-the-co unter bisacodyl tablets and/or [...] on weekends call paging stephanie rator at [phone] ask for police liaison officer doctor for Heme-Onc if you have any [...] AM HEM NURSE TAWANDA Hematology/Medical Oncology at [facility] [phone]/12/2018 9:30 AM Annie Gannon Hematology/Medical Oncology at [facility] [phone] HemOn Discharge Physical Exam: Last 24 hour [...] 46.56 kg/m. General: adult female patient in [facility] Neuro: AOx3, Psych: pleasant, affect appropiate Skin: No rashes HEENT:oropharynx mucous membrane moist without lesions Chest: Clear to ascultation b/l; no wheezing, crackles CV: Regular rhythm rate, no murmur Abd: Normoactive bowel sounds, soft/Nontender/Nondistended , no hepatosplenomegaly, no ma sses Ext: no edema Lines: PAC accessed - NT, no erythema ROMEO SKY MD Hem/Onc Fellow [id number] Associated attestation - Greg Campos MD - [...] thorough, accurate, and detailed discharge summary including [facility] GREG CAMPOS MD [place] [id number] [address] [facility] Mailcode: [address] [place], [place] [id number] in this encounter Medications at Time of [...] scheduled. HAYDE FLORES MD Orthopaedics PGY-3 Pager: [phone] Coats MD - 02/23/2018 8:17 AM PDTFormatting [...] @ 845am, labs and port care @ [facility] on 02/28/18, pt should make apt when she is in for neulasta. Sent request to venessa to arrange for fu @ [facility] for C2, the y will contact pt. [...] described above. ROMEO SKY MD Hem/Onc Fellow [id number] Associated attestation - Greg Campos MD - [...] in today's progress note. GREG CAMPOS MD [place] [id number] [facility] Mailcode: [address] [place] [address] Camryn Flynn PA-C - 02/21/2018 7:14 AM [...] for her mom who is her primary day care provider. ROS: Remainder of complete 10 points review [...] 2008.34 ml General: adult female patient in [facility] Neuro: AOx3, Psych: pleasant, affect appropiate Skin: [...] to venessa to arrange for fu @ [facility] for C2, the y will contact pt. [...] Full CAMRYN FLYNN PA-C Medical Oncology/Hematology pager #[phone] Associated attestation - Leighann Yost MD - [...] | | Oncology | [address] | | | | | | [place] [address] | | +--------+ + + + + | 04/24/ | Office | Hematology & | Annie Gannon, | | | 2017 | Visit | Oncology | AGACNP,MASH FILTER CLOTH CHANGER [address] | | | | [address] | | | | | | [place], [place] | | | | | | [address] | | | | | | [phone] | | | | | | | | +--------+ + + + + | 04/24/ | Hospital | Adult Acute Care | Savanna Mari, | | | 2017 | Encounter | | [address] | | | | | | [place], [place] | | | | | | [address] | | | | | | [phone] | | | | | | | [...] [address] | | | | | | [place], [place] | | | | | | [address] | | | | | | [phone] | | | | | | | [...] | + + + | Urine | [facility] [address] | | | [place] [address] | + + + URINE, MICROSCOPIC EXAM [...] | [facility] [address] [facility] | | | [place] [address] | + + + URINE, MICROSCOPIC EXAM [...] | + + + | Urine | [facility] [address] [facility] | | | [place] [address] | + + + 12 LEAD ECG [...] | + + + | | [facility] [address] [facility] | | | [place] [address] | + + + in this encounter [...] | PDT | | | | | [facility] 02/20/18 at 0218, Until Sun | [...] Sat02/19/18 at 1656, | | | Until [place] 02/23/18 at 1926, | | | Administer for sodium level less | | | than 148 mmol/L and phosphate | | | level less than or equal to 1.5 | | | mg/dL. | | + +---+ | | | + +---+ in this encounter
--- OUTSIDE RECORDS SUMMARY | ~2018-04-16 | XMS | Encounter Summary ---
Demographics + + + | Address | [address] | | | [place] [address] | + + + | Home Phone [...] + + + | Author | [facility] | + + + | Organization | [facility] | + + + | Address | Unknown | + + + | Phone | Unavailable | + + + Support + + +---------+ + | Name | Relationship | Address | Phone | + + +---------+ + | ROSE CAGE | ECON | Unknown | | + + +---------+ + Care Team Providers + +------+ + | Care Desk Representative Name | Role | Phone | [...] SW | | | | | | ([facility]) | Federico Nascimento | | | | | | Procedures | Sarahy Conner | | | | | | PHYSICAL | [place], [place] | | | | | | THERAPY | [address] | | | | | | REFERRAL | Phone: | | | | | | PHYSICAL | [phone] | | | | | | THERAPY | Fax: | | | | | | REFERRAL | [phone] | | + +--------+ + + + [...] | | | | | THERAPY | [place], [place] | and Healing, | | | | | REFERRAL | [address] | 1st floor | | | | | | Phone: | [place], [place] | | | | | | [phone] | [address] | | | | | | Fax: | Phone: | | | | | | [phone] | [phone] | | | | | | | Fax: | | | | | | | [phone] | +--------+--------+ + + + + Consultation [...] | ORTHOPEDICS | [address] | [address] [place], | | | | | | | [place] | | | | | | [place], [place] | [address] | | | | | | [address] | Phone: | | | | | | Phone: | [phone] | | | | | | [phone] | Fax: | | | | | | Fax: | [phone] | | | | | | [phone] | | +--------+--------+ + + + + [...] | | | | | THERAPY | [place], [place] | and Healing, | | | | | REFERRAL | [address] | 1st floor | | | | | | Phone: | [place], [place] | | | | | | [phone] | [address] | | | | | | Fax: | Phone: | | | | | | [phone] | [phone] | | | | | | | Fax: | | | | | | | [phone] | +--------+--------+ + + + + Consultation [...] | | AMPUTEE | [address] | [facility] | | | | | ORTHOPEDICS | [facility] | Rd [place], | | | | | | Rd | [place] | | | | | | [place], [place] | [address] | | | | | | [address] | Phone: | | | | | | Phone: | [phone] | | | | | | [phone] | Fax: | | | | | | Fax: | [phone] | | | | | | [phone] | | +--------+--------+ + + + + [...] + + | 02/06/ | Hospital | [facility] [address] | Lynda Basurto, | | | 2018 - | Encounter | [address] | [address] | | | | | ANITA DOVE | [address] | | | 02/11/ | | [place] [address] | [place], [place] | | | 2018 | | [phone] | [address] | | | | | | [phone] | | | | | | | [...] note may be different from remedios lin. [facility] DEPARTMENT OF ORTHOPAEDICS & REHABILITATION INPATIENT HOSPITAL DISCHARGE SUMMARY & INTERDISCIPLINARY INSTRUCTIONS Patient: Annika Cage CSN: [id number] Admission Date: 02/06/2018 Discharge Date: 02/11/2018 Attending Physician: Lynda Basurto MD PCP: Santo Gooden MD Service: [facility] Orthopaedics & Rehabilitation Diagnoses Principal Final [...] they suspect your wound is infected. Call [facility] Orthopedics first at [phone]. Activity Non-weight bearing on left leg. Restrictions: no range of motion restrictions. Encourage to perform extension exercises on left leg. OK to use knee scooter Condition on Discharge Stable Follow-Up Appointments ORTHOPEDICS OUTPATIENT CLINIC: 02/19/2018 2:20 PM Lynda Basurto [facility] Orthopaedics & Rehabilitation [phone] [place] PCP: As needed for any medical [...] administration instructions. 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 Additional Post-Op Instructions / What to Expect [...] feel that you will need more, call [phone] during business hours in order to get [...] Pierre Dean DO Orthopedic Surgery Resident Pager [phone] [facility] Department of Orthopaedics & Rehabilitation [address] [place] [address] Mail Code: OP31 [facility] [phone] in this encounter Discharge Instructions Lanette Brantley MSW - 02/07/2018AMPUTEE RESOURCES: http://www.[employer]/new-patient/ampower/Pages/Home.aspx http://www.[employer]/new-patient/ampower/ed-resources/Pages/Eigzc-szh-Wtlbhpjhna.asp x http://www.ehogb1jdgv.org.au/news-events/news/fouihdnrn-sozprh-fgjmamuite-qu-jtin-vbynvich- zab-mnnes-wdbxitbs MENTAL HEALTH/SUICIDE PREVENTION RESOURCES [facility] is a 24-hour behavioral and mental health services center, providing immediate psychi atric care and a path to recovery for people experiencing a mental health crisis. Address: [facility], [address] [place] [address] Hours: 24 hours/day, 7 days a week, no appointment needed NATIONAL CRISIS LINES 25/03 National Suicide Prevention Lifeline 5-804-649-TALK (4329) Hearing and Speech Impaired 7-172-245-4TTY (2862) 25/03 Mental Health Treatment Referral Line 6-610-839-HELP (1476) [facility] CRISIS SERVICES For emergencies or life threatening situations, please call [facility] Mental Health Crisis Line [phone] (24 hours a day, 7 days a week) [facility] Mental health services for adults, children, and families; walk-ins welcome. Access informa tion and referral line for [facility] services in housing, recovery and assistance. Address: [facility]/Referral service [address] [place] [address] (Near [address] [place] [address]) [place], [address] Transit: Doppelganger bus #4 Hours: 7 a.m.-10:00 p.m, 7 [...] Practitioner Acute Pain Service /[facility] [address] [place] [address] Pierre Dean DO - 02/11/2018 6:46 AM PDTFormatting of this note may be different from remedios lin. [facility] DEPARTMENT OF ORTHOPAEDICS & REHABILITATION PROGRESS NOTE [...] Pierre Dean DO Orthopedic Surgery Resident Pager [phone] Pierre Dean DO - 02/10/2018 11:43 AM PDTFormatting of this note may be different from remedios lin. [facility] DEPARTMENT OF ORTHOPAEDICS & REHABILITATION PROGRESS NOTE Patient: Annkia Cage Encounter Date: 02/09/2018 Admitted: 02/06/2018 Attending [...] Pierre Dean DO Orthopedic Surgery Resident Pager [phone] Jesusita Mccullough NP - 02/10/2018 11:24 AM [...] Jesusita Mccullough NP Adult Pain Service Pager [phone] Team Pager [phone] Pierre Dean DO - 02/09/2018 1:34 PM PDTFormatting of this note may be different from remedios lin. [facility] DEPARTMENT OF ORTHOPAEDICS & REHABILITATION PROGRESS NOTE [...] Pierre Dean DO Orthopedic Surgery Resident Pager [phone] John Burciaga - 02/09/2018 12:59 PM PDTTransthoracic [...] and summary of old medical records (source: [facility]), as summarized in the body of the note. Discussion of case with another healthcare provider nurse. Please page APS #[phone] with questions and concerns. MD Thanh SHEA [...] and summary of old medical records (source: [facility]), as summarized in the body of the note. Discussion of case with another healthcare provider nurse. Please page APS #[phone] with questions and concerns. MD Sandra SHEA, Hayde Mckeon MD - 02/08/2018 9:05 AM PDTFormatting of this note may be different from nikunj lin. [facility] DEPARTMENT OF ORTHOPAEDICS & REHABILITATION PROGRESS NOTE [...] discharge. HAYDE FLORES MD Orthopaedics PGY-3 Pager: [phone], MD Lynda - 02/08/2018 8:57 AM PDTPt [...] note may be different from the original. [facility] DEPARTMENT OF ORTHOPAEDICS & REHABILITATION PROGRESS NOTE [...] discharge. HAYDE FLORES MD Orthopaedics PGY-3 Pager: [phone] Beckford DNP - 02/07/2018 7:54 AM PDTFormatting [...] on file Social History Narrative Works in [employer] at a [employer] near [place]. No kids. Lives with her mother Rose. [...] by primary care team. Madiha Rebollar DNP, [employer] [employer] Adult Pain Service /[facility] [address] [place] [address] Patricio Giles MD - 02/07/2018 7:18 AM PDTGold Surgery Brief Progress Note ID: Annika Cage is a 32 y.o. 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 No pneumothorax. A/P Uneventful port a cath placement. OK to use. Contact gold surgery with questions or concerns Remainder of care per primary team Dior Giles MD General Surgery [id number] MD - 02/07/2018 6:51 AM PDTPt says [...] note may be different from the original. [facility] DEPARTMENT OF ORTHOPAEDICS & REHABILITATION PROGRESS NOTE [...] discharge. HAYDE FLORES MD Orthopaedics PGY-3 Pager: [phone] this encounter Plan of Treatment +--------+ + + + + | Date | Type | Specialty | Care Team | Description | +--------+ + + + + | 04/24/ | Appointment | Hematology & | NurseDarwin Starter | | | 2017 | | Oncology | [address] [facility] | | | | | | [place] [address] | | +--------+ + + + + | 04/24/ | Office | Hematology & | Annie Gannon, | | | 2017 | Visit | Oncology | [facility] [address] | | | | | | [address] | | | | | | [place], [place] | | | | | | [address] | | | | | | [phone] | | | | | | | | +--------+ + + + + | 04/24/ | Hospital | Adult Acute Care | Savanna Mari, | | | 2017 | Encounter | | [address] | | | | | | [place], [place] | | | | | | [address] | | | | | | [phone] | | | | | | | [...] [address] | | | | | | [place], [place] | | | | | | [address] | | | | | | [phone] | | | | | | | [...] | + + + | | [facility] [address] [place] [address] | | | [place] [address] | + + + + + | Narrative | + + | [facility] Adult Echocardiography Laboratory | | [address] [place], [place] [address] Ph: | | Pt Name: ANNIKA CAGE Study | | Date/Time 02/09/2018 / 11:45:04 AM | | Most recent prior: - Acc #: [id number] No. previous echos: 0 | | : 1985 32 years Heart Rate: 78 bpm Height: 68.0 | | in Blood Pressure: 121/61 mm/Hg Weight: 308.0 | | lb Gender: F BSA: 2.46 | | m2 Order ID: [id number] Technician Support Association: | | John Gonzalez MA, [facility] Technician Support Association 2: Referring Provider: Lynda Basurto Study | [...] and indexed values Report electronically signed by: [id number] Justin | | Malachi DIAS (02/09/2018, 3:09:17 PM) Final | + + + + | Procedure Note | + + | Interface, Ecg Results - 02/09/2018 3:09 PM [facility] | | [facility] Echocardiography Laboratory [address] [place] [address] | | [place], [place] [address] Pt Name: ANNIKA WILKERSON | | CAGE Study Date/Time 02/09/2018 / 11:45:04 AMMRN: [id number] Most | | recent prior: -Acc #: [id number] No. previous echos: 0DOB: 1985 32 | | years Heart Rate: 78 bpmHeight: 68.0 in Blood Pressure: 121/61 | | mm/HgWeight: 308.0 lb Gender: FBSA: 2.46 m2 | | Order ID: [id number] Technician Support Association: John Gonzalez MA, RDCSSonographer | | 2:Referring [...] values Report | | electronically signed by: [id number] Justin Ly MD (02/09/2018, 3:09:17 PM) | [...] | | | |Report electronically signed by: [id number] Justin Ly MD (02/09/2018, 3:09:17 | |PM) [...] [facility] LABORATORY SERVICES, CORE [address] [place] [address] | | | [place] [address] | + + + + + | [...] | | ------ CBC (HEMOGRAM) | | ONLY[[id number]] Abnormal Final | | result Please view [...] | >60 | >60 mL/min | | [place] | | | + +---------+ + | EGFR NON | >60 | >60 mL/min | | -[place] | | | + +---------+ + | [...] [facility], CORE [address] | | | [place] [address] | + + + + + | [...] MD Preoperative | | Diagnosis: need for care home central venous access Postoperative Diagnosis: same | [...] care per primary orthopedic | | surgery Diro Giles MD 02/06/18 1:48 PM General Surgery, R3 | | | + + OPERATION RECORD (02/06/2018 7:40 PM) + + | Procedure Note | + + | Lynda Basurto MD - 02/06/2018 7:40 PM PDT Date of Service: 02/06/2018 | | Attending Surgeon: Lynda Basurto MD Complaint Supervisor(s): Hayde | | Mike Flores MD. Preoperative [...] | DARIUS/SHANIAD: 02/06/2018 15:36:23DT: 02/06/2018 19:40:30Job #: [id number] | + + X-RAY PORTABLE CHEST 1 VIEW (02/06/2018 4:54 PM) + + + | Specimen | Performing Laboratory | + + + | | [facility] RADIOLOGY VOICE RECOGNITION 2 | + + + + + | Narrative | + + | EXAM: AK CHEST 1 VIEW HISTORY: s/p port placement [...] Interface - 02/06/2018 5:11 PM PDT EXAM: AK CHEST 1 | | VIEW HISTORY: s/p [...] now presented. | | | |Final signature: Roalnd Wu MD 02/06/2018 5:09 PM | |Preliminary: Roland Wu MD | |Dictation initiated: Roland Wu MD 02/06/2018 5:08 PM | + + PROCEDURE NOTE (02/06/2018 3:56 PM) + + | Narrative | + + | Hayde Flores MD 02/06/2018 3:58 PM [facility] | | Department of Orthopaedics & Rehabilitation BRIEF OPERATIVE NOTE | | Patient: Annika Cage | | | | CSN: [id number] | | Date: 02/06/2018 | | Attending Surgeon: Lynda | | MD Sb Complaint Supervisor(s): 1. HAYDE FLORES MD Preoperative | | [...] Saturday HAYDE Mckeon | | MD SANDRA [facility] | | Department of Orthopaedics & Rehabilitation [address] [facility] Mail Code: | | OP31 [facility] [address] Pager: [phone] | + + CAPILLARY BLOOD GLUCOSE (NO CHG), POC (02/06/2018 3:53 PM) + +-------+ + | Component | Value | Ref Range | + +-------+ + | BLOOD GLUCOSE, POC | 79 | 70 - 99 mg/dL | + +-------+ + + + + | Specimen | Performing Laboratory | + + + | | [facility], POINT OF CARE TESTS [address] [facility] | | | [place] [address] | + + + SURGICAL PATHOLOGY (02/06/2018 [...] | | | Comment: See prior biopsy ([id number]). | | | | Case seen by:Edgard [...] | | | necrosis. See prior biopsy [id number]). | | | | Please correlate clinically. | | | | Comment(s): Extensive fibrinopurulent, necrotic material is p resent, not indicative of true tumor necrosis. See prior biopsy [id number]). Please correlate clinically. | | + + + + | Gross Description | Received is one specimen fresh in a | | | | container labeled with the patient's name | | | | (initials KSG) and medical record number | | | | [id number]. A. Left leg, amputation: Received | | [...] | | | margin at the stitch. Pta | | | | sections are submitted. [...] ulceration | | | | and underlying jaltmW83-X65, composite | | | | section of posterior tumor qmobbvmW60-X65, | | | | additional composite section of | | | | lcshjG97-Q51, additional composite section | | | | of plnlfE70-Y17, additional composite | | | | section of pbigdO22-O08, additional | | | | composite section of tumor A31-A32, | | | | composite section of anterior crgspF86, | | | | uninvolved skin and soft tissue adjacent to | | | | anterior atnszN12, uninvolved skin and | | | | soft tissue adjacent to posterior teznaT22, | | | | underlying bone with attached soft | | | | usozlaF65, navicular and medial cuneiform | | | | bones and tsggxB03, navicular bone and | | | | [...] characteristics determined | | | | by [facility]. It has not been | | | [...] [facility] DEPART[facility] OF [facility]OLOGY [address] | | | [place] [address] | + + + PROCEDURE NOTE (02/06/2018 2:20 PM) + + | Narrative | + + | Macie Loredo MD 02/06/2018 2:37 PM PATIENT NAME: Annika SMITH | | MR#: [id number] : 1985 Date: 02/06/2018 Attending Surgeon: Macie Loredo, | | Complaint Supervisor(s): Jan Giles MD Preoperative Diagnosis(es): 1. | [...] recovery | | unit. Macie Loredo MD Signals Intelligence Analysis Manager Division of Surgical Oncology | | Thyroid [...] [address] | | | [place] [address] | + + + INTRAPROCEDURE IMAGING (02/06/2018 [...] | | | | dose on [facility] 02/06/18 at 1745, Until | | [...] PDT | | | | | Starting [facility] 02/06/18 at 1605, | | | [...] 6/7/18 at | | | 2031, Until [facility] 02/06/18 at 2036 | | + [...] PDT | | | | | Starting [facility] 02/06/18 at 1605, | | | | | | | Until [facility] 02/06/18 at 2143, | | | [...] | | | | | NEEDED, Starting [facility] 02/06/18 at | | | | | | | 2144, Until Sat02/11/18 at 2223, | | | | | | | severe pain | | | | | | + +-------+ +--------+---+---+ +---+---+ | | | +---+---+ + +---------+ +--------+---+---+ | lactated Ringers IV 500 mL, | New Bag | 02/06/2018 | 500 mL | | | | intravenous, ONCE, 1 dose, [facility] | | 18:45 | | | | | 02/06/18 at 1845 | | PDT | | | | + +---------+ +--------+---+---+ +---+---+ | | | +---+---+ + +-------+ +-------+---+---+ | loratadine (CLARITIN) tablet 10 | Given | | 10 mg | | | | mg 10 mg, oral, DAILY, First | | 8 07:47 | | | | | dose on [facility] 02/06/18 at 1745, Until | | [...] 23:21 | | | | | Starting [facility] 02/06/18 at 2144, | | PDT [...]
--- OUTSIDE RECORDS SUMMARY | ~2018-04-16 | XMS | Encounter Summary ---
Demographics + + + | Address | [address] | | | [place] [address] | + + + | Home Phone [...] Team Providers + +------+ + | Care Property Administrator Name | Role | Phone | [...] Nascimento | | | | | | [facility] | | | | | | [place], [place] | | | | | | [address] | | | +--------+ + + + [...] | | Oncology | [address] | | | | | | [place] [address] | | +--------+ + + + + | 04/24/ | Office | Hematology & | Annie Gannon, | | | 2018 | Visit | Oncology | [facility],SENIOR CIVIL ENGINEER [address] | | | | | | [address] | | | | | | [place], [place] | | | | | | [address] | | | | | | [phone] | | | | | | | | +--------+ + + + + | 04/24/ | Hospital | Adult Acute Care | Savanna Mari, | | | 2017 | Encounter | | [address] | | | | | | [facility] [place] | | | | | | [address] | | | | | | [phone] | | | | | | | [...] [address] | | | | | | [facility], [place] | | | | | | [address] | | | | | | [phone] | | | | | | | | +--------+ + + + + as of this encounter Visit Diagnoses Not on filein this encounter"
--- OUTSIDE RECORDS SUMMARY | ~2018-04-16 | XMS | Encounter Summary ---
Demographics + + + | Address | [address] | | | [place] [address] | + + + | Home Phone [...] Providers + +------+ + | Care Legal Billing Clerk Name | Role | Phone | [...] | | | | neoplasm of | [address] | | | | | | soft tissue | [address] | | | | | | of left | Sarahy Conner | | | | | | lower | [place], [place] | | | | | | extremity | [address] | | | | | | (HCC) | Phone: | | | | | | Procedures | [phone] | | | | | | CT CHEST WO | Fax: | | | | | | CONTRAST | [phone] | | + +--------+ + + + [...] | | | | | lower | [place], [place] | | | | | | extremity | [address] | | | | | | (HCC) | Phone: | | | | | | Procedures | [phone] | | | | | | CT CHEST WO | Fax: | | | | | | CONTRAST | [phone] | | + +--------+ + + + [...] | | | | | lower | [place], [place] | | | | | | extremity | [address] | | | | | | (HCC) | Phone: | | | | | | Procedures | [phone] | | | | | | CT CHEST WO | Fax: | | | | | | CONTRAST | [phone] | | + +--------+ + + + + Encounter Details +--------+ + + + + | Date | Type | Department | Care Team | Description | +--------+ + + + + | 01/22/ | Hospital | Radiology/Imaging | Sb GallegosAlexander, | | | 2018 | Encounter | Lab at [facility] [address] | [address] | | | | | [address] | [facility] | | | | | Mailcode: CH3G | [place], [place] | | | | | [facility] | [address] | | | | | and [facility] | [phone] | | | | | Floor [place], [place] | | | | | | [address] | | | | | | [phone] | | | +--------+ + + + [...] Road | | | | | | [place] [address] | | +--------+ + + + + | 04/24/ | Office | Hematology & | Annie Gannon, | | | 2018 | Visit | Oncology | AGAC[facility],MILK DELIVERY DRIVER [address] | | | | | [address] | | | | | | [place], [place] | | | | | | [address] | | | | | | [phone] | | | | | | | | +--------+ + + + + | 04/24/ | Hospital | Adult Acute Care | Savanna Mari, | | | 2018 | Encounter | | [address] | | | | | | [place], [place] | | | | | | [address] | | | | | | [phone] | | | | | | | [...] [place] | | | | | | [address] | | | | | | [phone] | | | | | | | | +--------+ + + + + as of this encounter Results CT CHEST WO CONTRAST (01/22/2018 5:57 PM) + + + | Specimen | Performing Laboratory | + + + | | [facility] RADIOLOGY VOICE RECOGNITION 2 | + [...]
--- OUTSIDE RECORDS SUMMARY | ~2018-04-16 | XMS | Encounter Summary ---
Demographics + + + | Address | [address] | | | [place] [address] | + + + | Home Phone [...] Team Providers + +------+ + | Care Waiter/Waitress Second Class Name | Role | Phone | + [...] [address] | | | | | Road [place], [place] | [address] | | | | | [address] | [place], [place] | | | | | [phone] | [address] | | | | | | [phone] | | | | | | | [...] 2017 | | Oncology | [address] [facility] | | | | | | [place] [address] | | +--------+ + + + + | 04/24/ | Office | Hematology & | Annie Gannon, | | | 2017 | Visit | Oncology | AGASHANA[facility],PRODUCTION ENGINEER [address] | | | | | | [address] | | | | | | [place], [place] | | | | | | [address] | | | | | | [phone] | | | | | | | | +--------+ + + + + | 04/24/ | Hospital | Adult Acute Care | Savanna Mari, | | | 2017 | Encounter | | [address] | | | | | | [place], [place] | | | | | | [address] | | | | | | [phone] | | | | | | | [...] [place] | | | | | | [address] | | | | | | [phone] | | | | | | | | +--------+ + + + + as of this encounter Results SPECIMEN ROUTING TO KDL (01/22/2018 2:20 PM) + + + | Specimen | Performing Laboratory | + + + | Slide-Block | PRE[facility] [address] | | | [address] [place] [address] | + + + in this encounter Visit Diagnoses + + | Diagnosis | + + | Localized swelling, mass and lump, left lower limb | + +"
--- OUTSIDE RECORDS SUMMARY | ~2018-04-16 | XMS | Encounter Summary ---
Demographics + + + | Address | [address] | | | [place] [address] | + + + | Home Phone [...] Team Providers + +------+ + | Care Steam Pipe Fitter Name | Role | Phone | [...] | | 2018 | | [facility] | [address] | | | | | for Health & Healing | [place], [place] | | | | | [address] | [address] | | | | | Mailcode: CH7M | [phone] | | | | | [facility] | | | | | | and [place], | | | | | | Floor [place], [place] | | | | | | [address] | | | | | | [phone] | | | +--------+ + + + [...] [address] | | | | | | [place] [address] | | +--------+ + + + + | 04/24/ | Office | Hematology & | Annie Gannon, | | | 2017 | Visit | Oncology | [place],TIRE FABRICATOR [address] | | | | | [address] | | | | | | [place], [place] | | | | | | [address] | | | | | | [phone] | | | | | | | | +--------+ + + + + | 04/24/ | Hospital | Adult Acute Care | Savanna Mari, | | | 2017 | Encounter | | [address] | | | | | | [place], [place] | | | | | | [address] | | | | | | [phone] | | | | | | | [...] [address] | | | | | | [place], [place] | | | | | | [address] | | | | | | [phone] | | | | | | | | +--------+ + + + + as of this encounter Visit Diagnoses + + | Diagnosis | + + | Synovial sarcoma (HCC) - Primary | + + | 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
--- OUTSIDE RECORDS SUMMARY | ~2018-04-16 | XMS | Encounter Summary ---
Demographics + + + | Address | [address] | | | [place] [address] | + + + | Home Phone [...] Team Providers + +------+ + | Care Hotel Receptionist Name | Role | Phone | + [...] Nascimento | | | | | | [facility] | | | | | | [place], [place] | | | | | | [address] | | | +--------+ + + + [...] | | Oncology | [address] | | | | | | [place] [address] | | +--------+ + + + + | 04/24/ | Office | Hematology & | Annie Gannon, | | | 2018 | Visit | Oncology | [facility] [address] | | | | | [address] | | | | | | [place], [place] | | | | | | [address] | | | | | | [phone] | | | | | | | | +--------+ + + + + | 04/24/ | Hospital | Adult Acute Care | Savanna Mari, | | | 2017 | Encounter | | [address] | | | | | | [facility] [place] | | | | | | [address] | | | | | | [phone] | | | | | | | [...] [place] | | | | | | [address] | | | | | | [phone] | | | | | | | | +--------+ + + + + as of this encounter Visit Diagnoses Not on filein this encounter"
--- OUTSIDE RECORDS SUMMARY | ~2018-04-16 | XMS | Encounter Summary ---
Demographics + + + | Address | [address] | | | [place] [address] | + + + | Home Phone [...] Team Providers + +------+ + | Care Shipping/Receiving Clerk Name | Role | Phone | [...] | | 2018 | | Oncology at [facility] | [address] | Clarification (port | | | | for [facility] & Healing | [place], [place] | maintenance) | | | | [address] | [address] | | | | | Mailcode: [id number] | [phone] | | | | | [facility] | | | | | | and Healing, 7th | | | | | | [place], [place] | | | | | | [address] | | | | | | [phone] | | | +--------+ + + + [...] [address] | | | | | | [place] [address] | | +--------+ + + + + | 04/24/ | Office | Hematology & | Annie Gannon, | | | 2017 | Visit | Oncology | [facility] [address] | | | | | [address] | | | | | | [place], [place] | | | | | | [address] | | | | | | [phone] | | | | | | | | +--------+ + + + + | 04/24/ | Hospital | Adult Acute Care | Savanna Mari, | | | 2017 | Encounter | | [address] | | | | | | [place], [place] | | | | | | [address] | | | | | | [phone] | | | | | | | [...] [address] | | | | | | [place] | | | | | | [address] | | | | | | [phone] | | | | | | | | +--------+ + + + + as of this encounter Visit Diagnoses Not on filein this encounter"
--- OUTSIDE RECORDS SUMMARY | ~2018-04-16 | XMS | Encounter Summary ---
Demographics + + + | Address | [address] | | | [place] [address] | + + + | Home Phone [...] Providers + +------+ + | Care Banking Manager Name | Role | Phone | [...] | | 2017 | | Oncology at [facility] | | | | | | [facility] | | | | | | [address] | | | | | | Mailcode: CH7M | | | | | | [facility] | | | | | | and Healing, 7th | | | | | | Floor [place], [place] | | | | | | [address] | | | | | | [phone] | | | +--------+ + + + [...] Road | | | | | | [place] [address] | | +--------+ + + + + | 04/24/ | Office | Hematology & | Annie Gannon, | | | 2017 | Visit | Oncology | [facility] [address] | [address] | | | | | | [place], [place] | | | | | | [address] | | | | | | [phone] | | | | | | | | +--------+ + + + + | 04/24/ | Hospital | Adult Acute Care | Savanna Mari, | | | 2017 | Encounter | | [address] | | | | | | [place], [place] | | | | | | [address] | | | | | | [phone] | | | | | | | [...] [address] | | | | | | [place], [place] | | | | | | [address] | | | | | | [phone] | | | | | | | | +--------+ + + + + as of this encounter Visit Diagnoses Not on filein this encounter"
--- OUTSIDE RECORDS SUMMARY | ~2018-04-16 | XMS | Encounter Summary ---
Demographics + + + | Address | [address] | | | [place] [address] | + + + | Home Phone [...] Team Providers + +------+ + | Care Cuff Presser Name | Role | Phone | + +------+ + | Santo Gooden MD | PCP | | + +------+ + Reason for Visit + + + | Reason | Comments | + + + | New Patient Visit | Left foot mass | + + + Consultation (Routine) +--------+--------+ + + + + | Status | Reason | Specialty | Diagnoses / | Referred By | Referred To | | | | | Procedures | Contact | Contact | +--------+--------+ + + + + | Closed | | Orthopedics | Diagnoses | Berkley, | Hugo, | | | | | Foot mass, | Santo Rogers MD | Miles Mckeon MD | | | | | left | [facility] | [address] | | | | | Sarcoma | [place] | [facility] | | | | | (HCC) L | Health | Rd | | | | | Foot Mass | Center | [place], [place] | | | | | (Sarcoma) | [address] | [address] | | | | | | [address] | Phone: | | | | | | Way | [phone] | | | | | | [place], | Fax: | | | | | | [place] [address] | [phone] | | | | | | Phone: | | | | | | | [phone] | | | | | | | Fax: | | | | | | | [phone] | | +--------+--------+ + + + + Encounter Details +--------+---------+ + + + | Date | Type | Department | Care Team | Description | +--------+---------+ + + + | 01/15/ | Office | Orthopaedics at | Lynda Basurto, | Mass of left foot | | 2018 | Visit | [facility] [address] | [address] | (Primary Dx) | | | | Ave Mailcode: CH12A | [address] | | | | | [facility] | [place], [place] | | | | | and [place] | [address] | | | | | Floor [place], [place] | [phone] | | | | | [address] | | | | | | [phone] | | | +--------+---------+ + + + [...] + + + + | Weight | 142 kg (313 lb) | 01/15/2018 10:06 AM PDT | + + + + | Height | 172.7 cm (5' 8") | 01/15/2018 10:06 AM PDT | + + + + | Body Mass Index | 47.59 | 01/15/2018 10:06 AM PDT | + + + + in this encounter Progress Notes Lynda Basurto MD - 01/15/2018 10:15 AM PDTFormatting of this note may be different from the original. Dx: soft tissue mass L foot Treatment: needle biopsy 01/15/2018 Chief Complaint: L foot mass This is a consultation from Santo Gooden MD HPI: History obtained through patient and previous medical records. Previous medical records we re reviewed and details are summarized below. 32 y.o. F is here for evaluation of L foot mass. First noticed a lump 6 months ago. It di dn't hurt but it was irritating. 3 months after she noticed it, it grew and was bothering h er more so she decided to get evaluation. Was at a new job during that time. Worse with am bulation and standing. Worse with direct pressure. In the past 3-4 days, with shooting marcos ns into knee. Got XR and was initially thought to be tarsal tunnel syndrome and treated w b oot. Then got MRI and had subsequent MRI. Mass has doubled or tripled in size since she fi rst noticed it. Difficulty with putting on certain shoes now. [place]. 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 The patient denies constitutional symptoms, including weight loss, night sweats, and fatigu e. No fevers. No past medical history on file. No past surgical history on file. Allergies: Allergies Allergen Reactions Demerol [Meperidine Hcl] Hives Morphine Hives Medications: No current outpatient prescriptions on file. Social History Social History Marital status: Single Spouse name: N/A Number of children: N/A Years of education: N/A Social History Main Topics Smoking status: Never Smoker Smokeless tobacco: Never Used Alcohol use No Drug use: No Sexual activity: Not on file Other Topics Concern Not on file Social History Narrative No narrative on file Family history: Family History Problem Relation Cancer Maternal Grandmother abdominal based Review of systems: A complete review of systems was performed, including the following: Constitutional Eyes Ears, nose mouth, throat Cardiovascular Respiratory Gastrointestinal Genitourinary Musculoskeletal Skin Neurologic General Health Hematologic or Lymphatic Allergic or immunologic For pertinent positives and negatives please refer to the patient's intake form which was r eviewed and signed by me. Physical exam: Ht 1.727 m (5' 8") | Wt 142 kg (313 lb) | BMI 47.59 kg/(m^2) Today s vital signs are noted as recorded by the Supervisor Rides. General: Alert, awake, and oriented x3. No acute distress. obese Head, eyes, ears, nose, throat: Normocephalic, atraumatic. Extra-ocular muscles intact. No jugular venous distension. Chest: Symmetrical, normal inspiratory effort Back: No step-offs, no tenderness to palpation Abdomen: Soft, non-tender, non-distended. No palpable masses. No guarding, no rebound. Neuro psych: normal gait, coordination. Appropriate mood and affect. LLE: with mass, nonmobile, oblong, firm, along posteromedial foot, at hindfoot and midfoot level. 5/5 TA/EHL/GS/PTT/judit. With pain on use of PTT. No inguinal lymphadenopathy. Pal p DP pulse. Difficulty palpating PT pulse. Imaging: MRI from 12/17/2017 and 12/26/2017 was interpreted by me, and shows soft tissue mass in abduc tor muscle at midfoot/hindfoot. Bright on T2, bright on contrast, dark on T1. Assessment: large soft tissue mass L foot posteromedial. ddx includes sarcoma, fibromatosi s, nodular fasciitis, vascular malformation. Plan: All clinical and imaging data were reviewed with the patient today. -I recommended a true cut needle biopsy for tissue for which an informed consent was obtain ed. Prior to the procedure all the risks and benefits were reviewed including but not limite d to infection, inadequate tissue for diagnosis, and need for subsequent open procedure. True cut needle biopsy L foot mass: Prior to the beginning of the procedure the team paused to verify the patient's identity, a s well as the procedure to be performed and the correct side/site. The L foot was then prepped in the usual sterile fashion after palpation of the mass and ap propriate positioning. Lidocaine was then used for local anesthetic. A 15 blade scalpel was used to make a poke hole incision in the dermis. The true-cut needle was then passed through the poke hole incision directly into the periphery of the mass. Once the needle was inserte d into the mass a core needle specimen was obtained. This procedure was repeated until enoug h tissue was available for diagnosis. The tissue was placed on a moist telfa pad and sent to pathology for evaluation. Pressure was held over the incision until hemostasis was obtained and a sterile dressing was applied after reapproximation of the skin edges with a nylon sut ure. No complications were encountered during the procedure. -pt to return in 1 wk to sarcoma/multiD clinic for results. May need staging studies if th is is malignancy.in this encounter Plan of Treatment +--------+ + + + + | Date | Type | Specialty | Care Team | Description | +--------+ + + + + | 04/24/ | Appointment | Hematology & | Nurse, Hem Starter | | | 2018 | | Oncology | [address] [facility] | | | | | | [place] [address] | | +--------+ + + + + | 04/24/ | Office | Hematology & | Annie Gannon, | | | 2018 | Visit | Oncology | AGACNP,TOOL AND DIE INSPECTOR [address] | | | | [address] | | | | | | [place], [place] | | | | | | [address] | | | | | | [phone] | | | | | | | | +--------+ + + + + | 04/24/ | Hospital | Adult Acute Care | Savanna Mari, | | | 2018 | Encounter | | [address] | | | | | | [place], [place] | | | | | | [address] | | | | | | [phone] | | | | | | | [...] [address] | | | | | | [place], [place] | | | | | | [address] | | | | | | [phone] | | | | | | | | +--------+ + + + + as of this encounter Procedures + +--------+ + + + | Procedure Name | Priori | Date/Time | Associated Diagnosis | Comments | | | ty | | | | + +--------+ + + + | MS NEEDLE | Routin | 01/15/2018 | Mass of left foot | | | BIOPSY,MUSCLE | e | 11:30 AM | | | | | | PDT | | | + +--------+ + + + in this encounter Results MORE COMMON INDIVIDUAL FISH PROBES, FFPE (01/15/2018 [...] | | | | cells had a [id number] split signal | | | | pattern [...] by the clinical | | | | cytotechnologist. | | + + + + | CELLS SCORED SMITH | 100 | | | SS18 (18Q11.2) | | | | BREAK-APART | | | + + + + + + + | Specimen | Performing Laboratory | + + + | Muscle - Slide-Block | [facility] [address] | | | [address] [place] [address] | + + + FISH, MOLECULAR PROBE, MARYBETH (01/15/2018 11:45 AM) + + + + | Component | Value | Ref Range | + + + + | DISCLAIMER | This test was developed and its performance | | | | characteristics determined by the [facility] | | | | [facility]. It has | | | [...] 1988 | | | | (CLIA). The [facility] | | | | Laboratories are fully licensed by the | | | | [facility] under CLIA and are | | | | accredited by the [employer] | | | | Pathologists (CAP). Laboratory | | | | Director: Kemar Kramer M.D., | | | | Ph.D Electronically reviewed and signed | | | | by:Justin Lu, PhD, [facility] | | | | Patrol Deputy Sheriff Clinical Molecular | | | | Geneticist01/23/2018 at 1:21 PM Reviewed | | | | and electronically signed by JAMARI | | | | MD CLAIRE,[facility]01/23/2018 5:14 PM | | + + + + + + + | Specimen | Performing Laboratory | + + + | Muscle - Slide-Block | [facility] [employer] [place] [id number] | | [address] [place] [address] | + + + SURGICAL PATHOLOGY (01/15/2018 11:45 AM) + + + + | Component | Value | Ref Range | + + + + | Addendum 1 | This addendum is to report the results of | | | | an immunohistochemical stain only; it does | | | | not alter the diagnosis. An | | | | immunohistochemical stain for INI-1 was | | | | performed and is intact (normal | | | | expression). | | + + + + | Clinical History | The patient is a 32-year-old woman with a | | | | soft tissue mass of the left foot. 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 The individual cells have rhabdoid | | | | like features with variably prominent | | | | nucleoli. Scattered hemangiopericytomatous | | | | vessels are present. Mitotic activity is | | | | conspicuous (16 mitoses per 10 high-power | | | | ochoa). No tumor necrosis is identified. | | | | Immunohistochemical stains for | | | | pancytokeratin and S100 demonstrate patchy | | | | positivity in the tumor cells. The tumor | | | | cells are negative for CD99, STAT6, | | | | myogenin, GWEN, CD34, desmin, SMA, | | | | synaptophysin, SOX-10, GFAP, HMB-45, and | | | | p63. The tumor is positive for SS18 | | | | rearrangement by FISH, confirming the | | | | diagnosis. Taken together, the | | | | morphology, immunohistochemistry and | | | | molecular findings are that of synovial | | | | sarcoma; the morphologic features are that | | | | of a poorly differentiated synovial | | | | sarcoma. The tumor is graded according to | | | | the FNCLCC system as follows: 3 for | | | | differentiation, 2 for mitotic activity, | | | | and 0 for tumor necrosis, for a total score | | | | of 5/9 (Grade 2). Case seen by:Tommy | | | | MD Natasha | | | | | | | | Pathology ResidentGinna Patel MD | | | | | | | | Pathologist My electronic signature | | | | indicates that I have personally reviewed | | | | all diagnostic slides, the gross and/or | | | | microscopic portion of this report and | | | | formulated the final diagnosis. | | + + + + | Gross Description | Received fresh is a single specimen in a | | | | container labeled with the patient's name | | | | (initials KG) and medical record number | | | | [id number]. A. Foot - left: Received labeled | | | | "foot l" are multiple fragmented cores of | | | | pink red soft tissue measuring 2.6 x 1.4 x | | | | 0.2 cm in aggregate. The specimen is | | | | filtered and entirely submitted in cassette | | | | A1. (LN) | | + + + + | ANCILLARY | Analyte specific reagents are used in many | | | INFORMATION | laboratory tests necessary for standard | | | | medical care. This test was developed and | | | | its performance characteristics determined | | | | by [facility]. It has not been | | | [...] complexity | | | | clinical laboratory testingAnalyte specific | | | | reagents are used in many laboratory tests | | | | necessary for standard medical care. This | | | | test was developed and its performance | | | | characteristics determined by [facility] | | | | laboratories.It has not been cleared or | | | | approved by the US Food and Drug | | | | Administration (FDA). FDA does not | | | | require this test to go through premarket | | | | FDA review. This test is used for clinical | | | | purposes.It should not be regarded as | | [...] | + + + | Muscle - Foot - left | [facility] DEPARTMENT OF PATHOLOGY [address] | | | [place] [address] | + + + in this encounter Visit Diagnoses + + | Diagnosis | + + | Mass of left foot - Primary | + + Administered Medications + +--------+ +-------+------+-------+ | Medication Order | MAR | Action | Dose | Rate | Site | | | Action | Date | | | | + +--------+ +-------+------+-------+ | Lidocaine 1% | Given | | 10 cc | | Left | | | | 8 10:45 | | | Foot | | | | PDT | | | | + +--------+ +-------+------+-------+ +---+---+ | | | +---+---+ in this encounter
--- OUTSIDE RECORDS SUMMARY | ~2018-04-16 | XMS | Encounter Summary ---
Demographics + + + | Address | [address] | | | [place] [address] | + + + | Home Phone [...] + + + | Author | [facility] | + + + | Organization | [facility] | + + + | Address | Unknown | + + + | Phone | Unavailable | + + + Support + + +---------+ + | Name | Relationship | Address | Phone | + + +---------+ + | ROSE BOWENS | ECON | Unknown | | + + +---------+ + Care Team Providers + +------+ + | Care Assembler Brazer Name | Role | Phone | + [...] | 02/19/ | Hospital | Hematology/Medical | Nurse, Hem Starter | | | 2018 | Encounter | Oncology at [facility] | [address] | | | | | [address] | [place] [address] | | | | | Mailcode: [facility] | | | | | | [facility] | | | | | | and [facility], | | | | | | [place], [place] | | | | | | [address] | | | | | | [phone] | | | +--------+ + + + [...] affected | 25 g | 1 | // | | | lidocaine-prilocaine | area as [...] + as of this encounter Progress Notes Nubia Morales, LISA - 02/19/2018 1:36 PM PDTDouble lumen PAC [...] t incident. Pt discharged to provider visit. in this encounter Plan of Treatment +--------+ + + + + | Date | Type | Specialty | Care Team | Description | +--------+ + + + + | 04/24/ | Appointment | Hematology & | Darwin Juan Starter | | | 2017 | | Oncology | [address] [facility] | | | | | | [place] [address] | | +--------+ + + + + | 04/24/ | Office | Hematology & | Annie Gannon, | | | 2017 | Visit | Oncology | [facility] [address] | | [address] | | | | | | [place], [place] | | | | | | [address] | | | | | | [phone] | | | | | | | | +--------+ + + + + | 04/24/ | Hospital | Adult Acute Care | Savanna Mari, | | | 2018 | Encounter | | [address] | | | | | | [place], [place] | | | | | | [address] | | | | | | [phone] | | | | | | | [...] [address] | | | | | | [place], [place] | | | | | | [address] | | | | | | [phone] | | | | | | | | +--------+ + + + + as of this encounter Results CMP, POC (BMP+LFT) (02/19/2018 2:28 PM) + +-------+ + | Component | Value | Ref Range | + +-------+ + | SODIUM, POC | 143 | 134 - 143 mmol/L | + +-------+ + | POTASSIUM, POC | 3.9 | 3.4 - 5.0 mmol/L | + +-------+ + | TOTAL CO2, POC | 29 | 22 - 29 mmol/L | + +-------+ + | CHLORIDE, POC | 106 | 97 - 108 mmol/L | + +-------+ + | GLUCOSE, POC | 88 | 70 - 99 mg/dL | + +-------+ + | CALCIUM TOTAL, POC | 9.5 | 8.6 - 10.2 mg/dL | + +-------+ + | BUN, POC | 16 | 6 - 20 mg/dL | + +-------+ + | CREATININE, POC | 0.9 | 0.6 - 1.1 mg/dL | + +-------+ + | ALK PHOS, CMP POC | 46 | 33 - 76 U/L | + +-------+ + | ALT, CMP POC | 26 | 0 - 60 U/L | + +-------+ + | AST, CMP POC | 28 | 0 - 41 U/L | + +-------+ + | BILIRUBIN TOTAL, CMP | 0.5 | 0.3 - 1.2 mg/dL | | POC | | | + +-------+ + | ALBUMIN, CMP POC | 3.5 | 3.5 - 4.7 g/dL | + +-------+ + | PROTEIN TOTAL, CMP | 7.2 | 6.1 - 7.9 g/dL | | POC | | | + +-------+ + + + + | Specimen | Performing Laboratory | + + + | Blood | [facility], POINT OF CARE TESTS [address] [place], [place] | | | [address] | + + + CBC+DIFF,POC (02/19/2018 2:23 PM) + +---------+ + | Component | Value | Ref Range | + +---------+ + | WBC POC | 7.1 | 3.5 - 10.8 10*3/uL | + +---------+ + | RBC POC | 4.12 | 4.00 - 5.20 10*6/uL | + +---------+ + | HGB POC | 12.4 | 12.0 - 16.0 g/dL | + +---------+ + | HCT POC | 36.4 | 36.0 - 46.0 % | + +---------+ + | MCV POC | 88.3 | 80.0 - 100 fL | + +---------+ + | MCH POC | 30.1 | 27.0 - 34.0 pg | + +---------+ + | MCHC POC | 34.1 | 32.0 - 36.0 g/dL | + +---------+ + | RDW SD, POC | 40.1 | 35.1 - 46.3 fL | + +---------+ + | PLT POC | 405 (H) | 150 - 400 10*3/uL | + +---------+ + | MPV POC | 9.5 (L) | 9.7 - 12.3 fL | + +---------+ + | NEUTROPHIL% POC | 50.6 | 50.0 - 70.0 % | + +---------+ + | LYMPH% POC | 36.3 | 18 - 42 % | + +---------+ + | MONO %, POC | 7.6 | 3.5 - 9.0 % | + +---------+ + | EOS %, POC | 4.2 (H) | 1.0 - 3.0 % | + +---------+ + | BASO %, POC | 1.3 | 0.0 - 2.0 % | + +---------+ + | NEUTROPHIL# POC | 3.6 | 1.8 - 7.7 10*3/uL | + +---------+ + | LYMPH# POC | 2.6 | 1.0 - 4.8 10*3/uL | + +---------+ + | MONO #, POC | 0.5 | 0.1 - 0.9 10*3/uL | + +---------+ + | EOS #, POC | 0.3 | 0.0 - 0.5 10*3/uL | + +---------+ + | BASO #, POC | 0.1 | 0.0 - 0.1 10*3/uL | + +---------+ + + + + | Specimen | Performing Laboratory | + + + | Blood | [facility] POINT OF CARE TESTS [address] [facility], [place] | | | [address] | + + + MAGNESIUM, PLASMA (02/19/2018 1:44 PM) + + + | Specimen | Performing Laboratory | + + + | Blood | | + + + + + | Narrative | + + | The following orders were created for panel order MAGNESIUM, PLASMA. | | Procedure | | Abnormality Status | | --------- | | ------ MAGNESIUM, | | PLASMA[[id number]] Normal Final | | result Please view results for these tests on the | | individual orders. | + + MAGNESIUM, PLASMA (02/19/2018 1:44 PM) + +-------+ + | Component | Value | Ref Range | + +-------+ + | MAGNESIUM,PLASMA | 2.3 | 1.6 - 2.6 mg/dL | + +-------+ + + + + | Specimen | Performing Laboratory | + + + | Blood | [facility], CORE [address] [facility] | | | [place] [address] | + + + + + | Narrative | + + | Reference range change effective 04/16/17. | + + URINE, MICROSCOPIC EXAM (02/19/2018 1:44 PM) + +---------+ + | Component | Value | Ref Range | + +---------+ + | RED CELLS | 1 | 0 - 3 /hpf | + +---------+ + | WHITE CELLS | 3 | 0 - 5 /hpf | + [...] | + + + | Urine | [facility], [facility] [address] | | | [place] [address] | + + + PHOSPHORUS, PLASMA (02/19/2018 1:44 PM) + +-------+ + | Component | Value | Ref Range | + +-------+ + | PHOSPHORUS, PLASMA | 3.7 | 2.4 - 4.7 mg/dL | | (LAB) | | | + +-------+ + + + + | Specimen | Performing Laboratory | + + + | Blood | [facility] CORE [address] | | | [place] [address] | + + + in this encounter Visit Diagnoses + + | Diagnosis | + + | Synovial sarcoma (HCC) | + + | 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, site unspecified | + + Administered Medications + +--------+ +------+------+------+ | Medication Order | MAR | Action | Dose | Rate | Site | | | Action | Date | | | | + +--------+ +------+------+------+ | lidocaine (XYLOCAINE) 10 mg/mL | Given | 02/19/201 | 5 mg | | | | (1 %) injection infiltration, | | 8 14:10 | | | | | ONCE, 1 dose, 6/20/18 at 1430 | | PDT | | | | + +--------+ +------+------+------+ +---+---+ | | | +---+---+ in this encounter"
--- OUTSIDE RECORDS SUMMARY | ~2018-04-16 | XMS | Encounter Summary ---
Demographics + + + | Address | [address] | | | [place] [address] | + + + | Home Phone [...] Team Providers + +------+ + | Care Laminator Hand Name | Role | Phone | [...] | 2018 | on | Oncology at [place] | | | | | [facility] | | | | | | [address] | | | | | | Mailcode: [id number] | | | | | | [facility] | | | | | | and , | | | | | | Floor [place], [place] | | | | | | [address] | | | | | | [phone] | | | +--------+ + + + [...] [address] | | | | | | [place] [address] | | +--------+ + + + + | 04/24/ | Office | Hematology & | Annie Gannon, | | | 2017 | Visit | Oncology | [facility]CHEMICAL INSPECTOR [address] | | [address] | | | | | | [place], [place] | | | | | | [address] | | | | | | [phone] | | | | | | | | +--------+ + + + + | 04/24/ | Hospital | Adult Acute Care | Savanna Mari, | | | 2017 | Encounter | | MD [address] | | | | | | [place], [place] | | | | | | [address] | | | | | | [phone] | | | | | | | [...] [address] | | | | | | [place] | | | | | | [address] | | | | | | [phone] | | | | | | | | +--------+ + + + + as of this encounter Visit Diagnoses Not on filein this encounter"
--- OUTSIDE RECORDS SUMMARY | ~2018-04-16 | XMS | Encounter Summary ---
Demographics + + + | Address | [address] | | | [place] [address] | + + + | Home Phone [...] Team Providers + +------+ + | Care Joinery Setter Out Name | Role | Phone | + [...] | Floor [address] | [facility] | | | | | [facility] | [place], [place] | | | | | Mailcode: L457 | [address] | | | | | [facility] | | | | | | [place], [place] | | | | | | [address] | | | | | | [phone] | | | +--------+ + + + [...] [address] | | | | | | [place] [address] | | +--------+ + + + + | 04/24/ | Office | Hematology & | Annie Gannon, | | | 2017 | Visit | Oncology | [place],[facility] [address] | | | | | [address] | | | | | | [place], [place] | | | | | | [address] | | | | | | [phone] | | | | | | | | +--------+ + + + + | 04/24/ | Hospital | Adult Acute Care | Savanna Mari, | | | 2017 | Encounter | | [address] | | | | | | [place], [place] | | | | | | [address] | | | | | | [phone] | | | | | | | [...] [address] | | | | | | [place], [place] | | | | | | [address] | | | | | | [phone] | | | | | | | | +--------+ + + + + as of this encounter Visit Diagnoses Not on filein this encounter"
--- OUTSIDE RECORDS SUMMARY | ~2018-04-16 | XMS | Encounter Summary ---
Demographics + + + | Address | [address] | | | [place] [address] | + + + | Home Phone [...] Team Providers + +------+ + | Care Ambulance Operations Supervisor Name | Role | Phone | [...] + + + | Closed | | Surgical | Diagnoses | Lauro, | Zak Loredo | | | | Oncology | Synovial | MD John | MD Yusef [address] | | | | | sarcoma | [address] | [address] | | | | | ([facility]) | Ave | [address] | | | | | Procedures | [place] | [place], | | | | | REQUEST TO | [address] | [place] | | | | | SURGERY | Phone: | [phone] | | | | | ADVANCED NURSING PROFESSOR | [phone] | Phone: | | | | | [place] INSERT | Fax: | [phone] | | | | | SCOUT CV | [phone] | Fax: | | | | | CATH,W SQ | | [phone] | | | | | PORT,>4 Y/O | | | | | | | [place] | | | | | | | FLUOROGUIDE | | | | | | | FOR VEIN | | | | | | | DEVICE [place] | | | | | | | US | | | | | | | GUIDE,VASCUL | | | | | | | AR ACCESS | | | +--------+--------+ + + + + Reason for Visit + + + | Reason | Comments | + + + | Pre-Admission | | + + + Encounter Details +--------+ + + + + | Date | Type | Department | Care Team | Description | +--------+ + + + + | 01/31/ | PreAdmit | Surgical Oncology | John Restrepo MD | Pre-Admission | | 2018 | Orders | at [facility] [address] | [address] | | | | | [address] Mail Code: | [place], [place] | | | | | [facility] | [address] | | | | | Health [facility], | [phone] | | | | | 7th Floor [place], | | | | | | [place] [address] | | | | | | [phone] | | | +--------+ + + + [...] of this encounter Instructions Patient Instructions - Leia Camarillo RN - 01/31/2018 4:55 [facility] 1. Phone [facility] Appointment (Perioperative Medicine Clinic) is on 02/06/18 at 3:00. The [facility] clinic will call you at your appointed date and time. If you do not receive a call , please call [phone] or toll free ext [phone]. Instructions for undergoing a line placement: * Stop blood thinners (Aspirin, Warfarin, etc.) as directed now including naproxen. * Nothing to eat or drink (including water) after midnight on 02/06/18. (the night prior to your surgery). * REPORT TO THE 4TH FLOOR OF THE [facility], ROOM 4519 (AMBULATORY DAY SURGERY) ON 02/07/18 * The office will call you with your check in time on 02/06/18 -between 1:00 and 3:00pm. If you have not received a call by 3:00 pm, please call [phone]. * Please shower with hibiclens and shampoo before being admitted to the hospital. * Do not wear any make up, nail slovak or jewelry for the surgery. * Carefully read all literature given to you regarding your surgery. * REMEMBER: You may NOT drive yourself home after surgery! Please make arrangements to hav e someone take you home after you are released from the Day Surgery Facility. * Free parking is available in the [facility]. *Your surgeon is Dr. Restrepo. *Surgical Oncology phone number is [phone]. *You will have a dressing over the insertion site. Your may remove this in 48 hours and shine wer. Do not scrub the area. You will be given a prescription for pain medication. You may al so put ice on the incision sites for added comfort. *If you have a fever, the area becomes red, swollen or has pus-like drainage, or if you hav e any questions/concerns regarding this procedure, please notify your surgeon's office. DIRECTIONS TO ADMITTING FOR DAY SURGERY 1. Take the elevator to the 3rd Floor of the [facility] and turn left. 2. Turn right and pass the lab, follow the skybridge that crosses over the street. 3. You will arrive in front of B elevator, turn right and proceed down the hallway and up t he stairs. 4. Day Stay is on the right side at the top of the stairs, Room #4519. WheelChair Directions 1. Take the elevator to the 3rd Floor of the [facility] and turn left. 2. Turn right and pass the lab, follow the skybridge that crosses over the street. 3. take elevator B to the 2nd Floor (Down one floor). 4. Turn left and proceed through hallway and up the ramp to the [facility]. 5. Continue down the hallway to the elevator (located in front of the Dept of Anesthesiolog y Offices) 6. Take the elevator to the 4th Floor. 7. Turn left off of the elevator and go straight down the hallway. 8. Day Stay is on the right side room #4519. Contact Information If you have any questions, please call us during business hours: [facility] Toll Free [phone] Breast Clinic After hours and on weekends, please call the paging repair table operator at and ask for the Brian Surgery MD supervisor long goods. in this encounter Plan of Treatment +--------+ + + + + | Date | Type | Specialty | Care Team | Description | +--------+ + + + + | 04/24/ | Appointment | Hematology & | Darwin Juan | | | 2018 | | Oncology | [address] [facility] | | | | | | [place] [address] | | +--------+ + + + + | 04/24/ | Office | Hematology & | Annie Gannon, | | | 2018 | Visit | Oncology | [facility] [address] | | | | [address] | | | | | | [place], [place] | | | | | | [address] | | | | | | [phone] | | | | | | | | +--------+ + + + + | 04/24/ | Hospital | Adult Acute Care | Savanna Mari, | | | 2017 | Encounter | | [address] | | | | | | 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
--- OUTSIDE RECORDS SUMMARY | ~2018-04-16 | XMS | Encounter Summary ---
Demographics + + + | Address | [address] | | | [place] [address] | + + + | Home Phone [...] Team Providers + +------+ + | Care Veterans Employment Representative Name | Role | Phone | [...] + + | 03/23/ | Hospital | [facility] [address] | [place], | | | 2018 - | Encounter | [address] | MD Annabelle | | | | | ANITA DOVE | Larry Pinto MD | | | 04/01/ | | [place] [address] | Greg Edgar | | | 2017 | | [phone] | MD Sho | | +--------+ + [...] CBC and reticulocyte count on 04/04/18 a [facility]. Appointments: Future Appointments Provider Department Dept Phone Center 04/09/2018 2:00 PM Hem Starter Nurse Hematology/Medical Oncology at [facility] [phone] HemOnc 04/09/2018 3:10 PM Sandra Patel Hematology/Medical Oncology at [place] [address] [phone] [place] 04/09/2018 3:40 PM Lynda Basurto [facility] Orthopaedics & Rehabilitation [phone] [place] Discharge condition: Fair Discharge destination (If [...] anxiety (1st line nausea/vomiting). Miscellaneous Medical Supply Misc Commonly known as: Miscellaneous Medical Supply Bedside [...] 25 mg Tab Commonly known as: HYDRODIURIL Asdycpegx-Kzwwythrf-Ij-Mag-Sim [id number] mg/30 mL Mwsh Commonly known as: FIRST-MOUTHWASH [...] room air Abdominal: nontender, non-distended, obese Skin: [place], warm, well-perfused, no ecchymoses Extremities: LLE dkoel-gfk-jnxc amputation site dressed in compression wrap. Drain [...] MD I spent more than 36 minutes bjhr-ef-zopm with the patient of which greater than 50% was sp ent counseling the patient coordinating care. in this encounter Discharge Instructions Rashida Thompson RN - 04/01/2018In order to receive services for line care and lab work at [facility] Out Patient Infusion/Day Surgery: you will first need to be seen by an MD (with stephane cortez at [facility] Walk in clinic). Please go in to [facility] to see an MD prior to your Saturday04/04/2018 appointment with the Outpatien Infusion/Day Surgery appointment for your lab work.in [...] line | | | | | | ([facility]) | nausea/vomiting). | | | | | [...] for | | | | | | ([facility]) | nausea/vomiting). | | | | | [...] soon | | | | | | (HCC) | and do not combine | | [...] + as of this encounter Progress Notes Jnuaid Burrell MD - 04/01/2018 12:24 PM PDTFormatting of this note may be different from the original. Orthopaedic Surgery Progress Note Patient: /Age: MRN: CSN: Date: Admission Date: Hospital Day: Orthopaedic Attending: Tati Cage 1985 32 y.o. [id number] 04/01/2018 03/23/2018 9 Macie Torre MD Diagnosis(es): [...] [facility]THO ONCOLOGY, Odalys Stafford - (Adela) Junaid Burrell MD Orthopaedic Surgery, R3 [id number] 03/31/2018 Cesia Foster NP - 04/01/2018 12:14 PM PDTFormatting of this note may be different from t jorge luis original. Orthopaedic Surgery Progress Note Patient: /Age: MRN: CSN: Date: Admission Date: Hospital Day: Orthopaedic Attending: Tati Cage 1985 32 y.o. [id number] 04/01/2018 03/23/2018 9 Macie Torre MD Diagnosis(es): [...] infection or alberto inage. Cesia Foster NP [facility] [address] [place], [place] [id number] Lynda Basurto MD - 04/01/2018 11:49 AM [...] consulted, see above plan # Pancytopenia # Bdmgh-sz-tbiwwcc anemia Pt's WBC and platelets have recovered, but her anemia persists despite repeated transfusion s (total of 7 units pRBCs here and 1 unit previously at OSH). Likely hypoproliferation (nichole edly low reticulocyte index of 0.09)in setting of [...] and hemat ology workup. Dawit Amaya, MS4 [facility] [place] [phone] Associated attestation - Greg Edgar MD - [...] agreeable with our plans. Greg Edgar MD [employer] Division of [facility] Medicine Teaching Attending I spent 37 minutes in the care of this patient, >50% engaged in bedside counseling or coord ination of care with orthopedics, anesthesia pain service.Bela Holt MD - 018 9:28 AM PDTPt weaned off PNB. Catheter pulled. Tip intact. Coag status normal prior to removal of catheter. APS will sign-off. Please pg APS [phone] with questions/concerns. Bela Holt MD APS # [id number] Lynda Basurto MD - 03/31/2018 9:14 AM [...] Orthopaedic Attending: Tati Cage 1985 32 y.o. [id number] 03/31/2018 03/23/2018 8 Macie Torre MD Diagnosis(es): [...] [facility] ORTHO ONCOLOGY, Odalys Clarktiste - (Adela) Junaid Burrell MD Orthopaedic Surgery, R3 [id number] 03/31/2018 Cesia Gaitan MD - 03/30/2018 4:51 PM PDTAPS Clarification Note; Tonight the continuous rate on the nerve block will be to 0 ml/hr and bolus only will be in place. Catheter will be pulled Saturday morning. Cesia Gaitan MD [facility] [address] [facility], 4th Floor Mail Code: [place], [place] [address] Rafael Shell MD - 03/30/2018 4:35 PM [...] on 03/17/18. - Pt beingfollowed by onc [facility], appreciate recs. Dr. Sandra Patel is her primary oncologist and she will have follow up on 04/09 to discuss cycle 3 planning. # mild LE edema Suspect due to IVF. - compression stocking to RLE. - will consider lasix # Pancytopenia # Xhdkc-pa-aikilmf anemia Likely hypoproliferationin setting of recentsystemic chemotherapy and acute inflammatio n. Will continue to monitor and transfuse as needed, goal >7. - She has received a total of 5 units of pRBCs at [facility] and 1 unit previously at OSH. [...] Rafael Shell PGY-2 Internal Medicine Pager # [phone] Associated attestation - Greg Edgar MD - [...] agreeable with our plans. Greg Edgar MD [employer] Hel[employer] Division of Hospital Medicine Teaching Attending I [...] 25 mg 25 mg oral Q6H PRN mccjdhghrqUQLSN-rgwgdwqjt-NUNEDL (SPECIAL MOUTHWASH) suspension (compound) 5 mL 5 [...] 25 mg 25 mg oral Q6H PRN qvhodvwllyYBKBX-erarenrbs-VTHBQL (SPECIAL MOUTHWASH) suspension (compound) 5 mL 5 [...] care team provider . MD Jorge L Briceño, Macie Medrano MD - 03/30/2018 10:00 AM PDTFormatting of [...] of this note may be different from e original. Orthopaedic Surgery Progress Note Patient: /Age: MRN: CSN: Date: Admission Date: Hospital Day: Orthopaedic Attending: Tati Cage 1985 32 y.o. [id number] 03/30/2018 03/23/2018 7 Macie Torre MD Diagnosis(es): [...] [facility] with ORTHO ONCOLOGY, Odalys Stafford - (Sb and Jorge L) Adam Jean MD Pager: [phone] Dawit Amaay - 03/29/2018 4:46 PM PDTFormatting of this [...] on 03/17/18. - Pt beingfollowed by onc [facility], appreciate recs. Dr. Sandra Patel is her primary oncologist . Oncology team communicating with Dr. Patel. - Coordinating with onc and ortho regarding plan for timing of cycle 3 of chemotherapy, whi ch will need to be delayed to allow for healing after infection. # Pancytopenia # Wmatb-vk-mwdascx anemia Likely hypoproliferationin setting of recentsystemic chemotherapy and acute inflammatio n. Will continue to monitor and transfuse as needed, goal >7. - Hg 6.8 this morning --> pRBC x1 today - She has received a total of 5 units of pRBCs at [facility] and 1 unit previously at OSH. [...] Dispo: Continue inpatient care Dawit Amaya, MS4 [facility] Pager [phone] Associated attestation - Greg Edgar MD - [...] nerve block tomorrow. Anticipate DC MON vs . Patient/Family Goals & Expectations: Above problems discussed with the patient who understands and is agreeable with our plans. Greg Edgar MD [employer] Division of Hospital Medicine Teaching Attending I [...] Orthopaedic Attending: Tati Cage 1985 32 y.o. [phone] [id number] 03/29/2018 03/23/2018 6 Macie Torre MD Diagnosis(es): [...] [facility] ORTHO ONCOLOGY, Odalys Stafford - (Adela) Adam Jean MD Pager: [phone] Dawit Amaya - 03/28/2018 1:33 PM PDTFormatting of this note may be different from nikunj lin. General Internal Medicine 1 Progress Note 24 [...] in 4/5. Pathology Report from 03/24/18 left jjkrr-luv-knwx amputation site debridement: "A. Soft tissue, left [...] on 03/17/18. - Pt beingfollowed by onc [facility], appreciate recs. Dr. Sandra Patel is her primary oncologist . Oncology team will communicate with Dr. Patel. - Coordinating with onc and ortho regarding plan for timing of cycle 3 of chemotherapy, whi ch will need to be delayed to allow for healing after infection. # Pancytopenia # Csusb-qh-jjpdylk anemia Likely hypoproliferationin setting of recentsystemic chemotherapy and acute inflammatio n. Will continue to monitor and transfuse as needed, goal >7. - Hg 9.2 this morning. - She has received at total of 4 units of pRBCs at [facility] and 1 unit previously at OSH. [...] Dispo: Continue inpatient care Dawit Amaya, MS4 [facility] Pager [phone] Associated attestation - Greg Edgar MD - 03/28/2018 8:48 PM PDTGeneral Medicine Attending Progress Note Author: Greg Edgar MD Hospital Day # 5 PCP: Santo Gooden MD I personally interviewed the patient, performed the romero elements of the physical examinatio n, and personally formulated the assessment and plan with Dr Cornejo and Dawit Amaya. Desiraea se see progress note for additional details; [...] agreeable with our plans. Greg Edgar MD [employer] Division of [facility] Medicine Teaching Attending I spent 35 minutes in the care of this patient, >50% engaged in bedside counseling or coord ination of care with orthopedics. Junaid Burrell MD - 03/28/2018 12:58 PM PDTFormatting of this note may be different from the original. Orthopaedic Surgery Progress Note Patient: /Age: MRN: CSN: Date: Admission Date: Hospital Day: Orthopaedic Attending: Tati Cage 1985 32 y.o. [id number] 03/28/2018 03/23/2018 5 Macie Torre MD Diagnosis(es): left below-knee amputation stump infection Orthopaedic Procedure(s) & Date(s): 03/24/18: irrigation and debridement of left below-knee amputation stump, wound vac application 7/26/18: Irrigation, debridement, and revision of left below-knee [...] [facility] ORTHO ONCOLOGY, Odalys [...] edge. Junaid Burrell MD Orthopaedic Surgery, R3 [id number] 03/26/2018 Madiha Beckford DNP - 03/28/2018 12:15 [...] at rest is 0/10. With activity, Ms. 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 No kids. Lives with her mother Rose. [...] by primary care team. Madiha Rebollar DNP, PHOTOGRAPHER-C [facility] [address] [place] [address] Lynda Basurto MD - 03/28/2018 8:06 AM [...] Ricardo Morales MD/PhD Anesthesiology CA-2 APS pager [phone] Amaya - 03/27/2018 6:39 AM PDTFormatting of this [...] Intake/Output Summary (Last 24 hours) at 03/27/18 06 Last data filed at 03/27/18 0436 Gross [...] neutropenia after c hemotherapy. # Pancytopenia # Jphdr-uw-xhbauez anemia Likely hypoproliferation in setting of recentsystemic chemotherapy and acute inflammation . Will continue to monitor and transfuse as needed, goal >7. - Hg 8.0 this morning prior to procedure today, 7.4 after. EBL of 200 mL during procedure. - She has received at total of 4 units of pRBCs at [facility] and 1 unit previously at OSH. [...] on 03/17/18. - Pt beingfollowed by onc [facility], appreciate recs. Dr. Sandra Patel is [...] Dispo: Continue inpatient care Dawit Amaya, MS4 [facility] Pager [phone] Associated attestation - Greg Edgar MD - [...] agreeable with our plans. Greg Edgar MD [employer] Division of Hospital Medicine Teaching Attending I [...] units of pRBCs have been given at [facility], with 1 unit given at OSH. [...] returning to the OR. # Pancytopenia # Vnxnh-sk-ovlbxkk anemia Likely hypoproliferation in setting of recentsystemic chemotherapy and acute inflammation . No evidence of acute blood loss or hemolysis. Drainage from wound vac has been minimal. Wi ll continue to monitor and transfuse as needed, goal >7. - Hg improved to 9.2 today after an additional unit of pRBCs this morning. She has received at total of 4 units of pRBCs at [facility] and 1 unit previously at OSH. [...] 03/17/18. - Pt being followed by onc [facility], appreciate recs. Dr. Sandra Patel is [...] Code: Full Dispo: Continue inpatient care Dawit Stoutrell, MS4 [facility] Pager [phone] Associated attestation - Greg Edgar MD - 03/26/2018 8:45 PM PDTGeneral [...] agreeable with our plans. Greg Edgar MD [employer] Division of Hospital Medicine Teaching Attending I spent 35 minutes in the care of this patient, >50% engaged in bedside counseling or coord ination of care with orthopedics. Junaid Burrell MD - 03/26/2018 8:29 AM PDTFormatting of this note may be different from the original. Orthopaedic Surgery Progress Note Patient: /Age: MRN: CSN: Date: Admission Date: Hospital Day: Orthopaedic Attending: Tati Wilkerson Niles 1985 32 y.o. [id number] 03/26/2018 03/23/2018 3 Macie Torre MD Diagnosis(es): [...] [facility] ORTHO ONCOLOGY, Odalys [...] edge. Junaid Burrell MD Orthopaedic Surgery, R3 [id number] 03/26/2018 Greg Edgar MD - 03/25/2018 9:59 [...] agreeable with our plans. Greg Edgar MD [employer] Division of Hospital Medicine Teaching Attending I [...] to shorten bone to do so. -IV Sorin Arredondo MD - 03/25/2018 8:09 AM PDTFormatting of this note may be different fr om the original. Orthopaedic Surgery Progress Note Patient: /Age: MRN: CSN: Date: Admission Date: Hospital Day: Orthopaedic Attending: Tati Cage 1985 32 y.o. [id number] 03/25/2018 03/23/2018 2 Macie Torre MD Diagnosis(es): left below-knee amputation stump infection Orthopaedic Procedure(s) & Date(s): irrigation and debridement of left below-knee amputati on stump, wound vac application Assessment & Plan: aTti Cage is a 32 y.o.F with the [...] [facility] with ORTHO ONCOLOGY, Odalys [...] knee. Reflexes: not performed Sorin Aguirre MD [facility] [place] Department of Orthopaedics & Rehabilitation [address] [place] [address] Mail Code: OP31 [facility] [id number] Dawit Amaya Sho - 03/25/2018 7:30 AM PDTFormatting of [...] 03/17/18. - Pt being followed by onc [facility], appreciate recs. Dr. Sandra Patel is [...] Dispo: Continue inpatient care Dawit Amaya, MS4 [facility] Pager [phone] Associated attestation - Yves Cornejo MD - [...] than 7; getting third at start of rn shift mgr VITALS Last 24 hour min/max Temp: 36.7 [...] 2.1> 2.9> >>> 15.1 ANC 640> 2340>>> 62420 Hgb 8.2> 7.3> 7.4> 5.3> 1 unit> [...] greater than 30,000 , setting for OR, wh ch then goal is 50 K. 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 Yves "Oc" MD [facility] Internal Medicine PGY-2 P This note has [...] Events: - Irrigation and debridement of left sqsae-hrq-pbgb amputation stump followed by wound vac placement, [...] Dispo: Continue inpatient care Dawit Amaya, MS4 [facility] Pager [phone] Burcaiga MD,MPH - 03/24/2018 12:56 PM PDTFormatting of [...] this week for repeat I&D, possible revi bonfiacio below-knee amputation 6. Medications: Resume home medications as indicated 7. VTE prophalaxis: sequential compression devices, early ambulation 8. Anticipated discharge: Pending course TSERING BURCIAGA MD,MPH PGY-5 Orthopaedic Surgery Pager: [phone] Rc Simpson MD - 03/24/2018 2:00 AM [...] Federico Simpson MD Orthopedic Surgery, R2 Pager [phone] in this encounter Plan of Treatment +--------+ + + + + | Date | Type | Specialty | Care Team | Description | +--------+ + + + + | 04/24/ | Appointment | Hematology & | Nurse, Hem Starter | | | 2017 | | Oncology | [address] [facility] | | | | | | [place] [address] | | +--------+ + + + + | 04/24/ | Office | Hematology & | Annie Gannon, | | | 2017 | Visit | Oncology | [facility] [address] | | | | | | [place], [place] | | | | | | [address] | | | | | | [phone] | | | | | | | | +--------+ + + + + | 04/24/ | Hospital | Adult Acute Care | Savanna Mari, | | | 2017 | Encounter | | [address] | | | | | | [place], [place] | | | | | | [address] | | | | | | [phone] | | | | | | | [...] [address] | | | | | | [place], [place] | | | | | | [address] | | | | | | [phone] | | | | | | | | +--------+ + + + + + +--------+ + + | Name | Priori | Associated Diagnoses | Date/Time | | | ty | | | + +--------+ + + | TYPE AND SCREEN | Routin | | 03/23/2018 4:41 PM | | | e | | PDT | + +--------+ + + | BRIE DIRECT | Routin | | 03/31/2018 11:33 AM [...] 03/23/2018 | + +--------+ + + | BRIE, DIRECT | Routin | | One Time for [...] | >60 | >60 mL/min | | [place] | | | + +---------+ + | EGFR NON | >60 | >60 mL/min | | -[place] | | | + +---------+ + | [...] | + + + | Blood | [facility], CORE [address] | | | [place] [address] | + + + + + | [...] | + + + | Blood | [facility], CORE [address] [place] [address] | | | [place] [address] | + + + MANUAL DIFFERENTIAL (04/01/2018 [...] | + + + | Blood | [facility], CORE [address] | | | [place] [address] | + + + + + | [...] | + + + | Blood | [facility], [address]ORE [address] | | | [place] [address] | + + + + + | [...] | + + + | Blood | [facility], CORE [address] | | | [place] [address] | + + + CBC, WITH DIFFERENTIAL [...] | ------ CBC AND AUTO | | DIFF[[id number]] Abnormal Final | | result MANUAL | | DIFFERENTIAL[[id number]] Abnormal Final | | result RBC | | MORPHOLOGY[[id number]] | | Final result Please view results [...] --------- | | ------ RETICULOCYTE | | COUNT[[id number]] Abnormal Final | | result Please view results for these tests on the | | individual orders. | + + CT LOWER EXTREMITY BILATERAL W CONTRAST (03/31/2018 5:09 PM) + + + | Specimen | Performing Laboratory | + + + | | [facility] RADIOLOGY VOICE RECOGNITION 2 [...] The patient has | | a left lzkmj-zud-rxpa amputation. A surgical drain is present at [...] administered. FINDINGS: The patient has a left khrmk-agr-ownr amputation. A surgical | | drain is [...] Laboratory | + + + | | [facility] RADIOLOGY VOICE RECOGNITION 2 [...] | + + + | Blood | [facility], CORE [address] | | | [place] [address] | + + + + + | [...] | | ------ CBC (HEMOGRAM) | | ONLY[[id number]] Abnormal Final | | result Please view [...] | + + + | Blood | [facility], TRANSFUSION MEDICINE [address] [facility] [address] [facility] [address] [address] | | | [place] [address] | + + + COMPLETE METABOLIC SET [...] | >60 | >60 mL/min | | [place] | | | + +---------+ + | EGFR NON | >60 | >60 mL/min | | -[place] | | | + +---------+ + | [...] | + + + | Blood | [facility] [address] | | | [place] [address] | + + + + + | [...] | + + + | Blood | [facility], CORE [address] | | | [place] [address] | + + + + + | [...] | + + + | Blood | [facility], TRANSFUSION MEDICINE [address] | | | [address] [place] [address] | + + + HAPTOGLOBIN (03/31/2018 11:33 AM) + +-------+ + | Component | Value | Ref Range | + +-------+ + | HAPTOGLOBIN | 187 | 30 - 200 mg/dL | + +-------+ + + + + | Specimen | Performing Laboratory | + + + | Blood | [facility], CORE [address] | | | [place] [place] [address] | + + + LDH TOTAL, PLASMA [...] | + + + | Blood | [facility], CORE [address] | | | [place] [address] | + + + PRODUCT - RED CELLS LEUKOREDUCED (03/31/2018 5:58 AM) + + + + | Component | Value | Ref Range | + + + + | PRODUCT DESCRIPTION | -1 RED BLOOD CELL ADENINE-SALINE ADDED | | | | LEUKOCYTE | | + + + + | PRODUCT UNIT # | [id number] | | + + + + | UNIT ABO | A | | + + + + | UNIT RH | POS | | + + + + | STATUS OF UNIT | Presumed Transfused | | + + + + | EXPIRATION DATE | [id number] | | + + + + | BLOOD TYPE BARCODE | 6200 | | + + + + | BLOOD PRODUCT CODE | [id number] | | + + + + + + + | Specimen | Performing Laboratory | + + + | | [facility], TRANSFUSION MEDICINE [address] | | | [place] [address] | + + + PRODUCT - RED CELLS LEUKOREDUCED (03/31/2018 5:58 AM) + + + + | Component | Value | Ref Range | + + + + | PRODUCT DESCRIPTION | -1 RED BLOOD CELL ADENINE-SALINE ADDED | | | | LEUKOCYTE | | + + + + | PRODUCT UNIT # | [id number] | | + + + + | UNIT ABO | A | | + + + + | UNIT RH | POS | | + + + + | STATUS OF UNIT | Presumed Transfused | | + + + + | EXPIRATION DATE | [id number] | | + + + + | BLOOD TYPE BARCODE | 6200 | | + + + + | BLOOD PRODUCT CODE | [id number] | | + + + + + + + | Specimen | Performing Laboratory | + + + | | [facility], TRANSFUSION MEDICINE [address] [facility] | | | [place] [place] [address] | + + + PRODUCT - RED CELLS LEUKOREDUCED (03/31/2018 5:58 AM) + + + + | Component | Value | Ref Range | + + + + | PRODUCT DESCRIPTION | -1 RED BLOOD CELL ADENINE-SALINE ADDED | | | | LEUKOCYTE | | + + + + | PRODUCT UNIT # | [id number] | | + + + + | UNIT ABO | A | | + + + + | UNIT RH | POS | | + + + + | STATUS OF UNIT | Returned to Blood Bank | | + + + + | EXPIRATION DATE | [id number] | | + + + + | BLOOD TYPE BARCODE | 6200 | | + + + + | BLOOD PRODUCT CODE | [id number] | | + + + + + + + | Specimen | Performing Laboratory | + + + | | [facility], TRANSFUSION MEDICINE [address] [facility] | | | [place] [address] | + + + MANUAL DIFFERENTIAL (03/31/2018 [...] | + + + | Blood | [facility], CORE [address] | | | [place] [address] | + + + + + | [...] | + + + | Blood | [facility] SERVICES, CORE [address] | | | [place], [place] [address] | + + + + + | [...] | | ------ DIFFERENTIAL, | | ADD ON[[id number]] Final | | result MANUAL | | DIFFERENTIAL[[id number]] Abnormal Final | | result Please view [...] | + + + | Blood | [facility], CORE [address] | | | [place] [address] | + + + + + | [...] | >60 | >60 mL/min | | [place] | | | + +---------+ + | EGFR NON | >60 | >60 mL/min | | -[place] | | | + +---------+ + | [...] | + + + | Blood | [facility], CORE [address] [place] [address] | | | [place] [address] | + + + + + | [...] | | ------ CBC (HEMOGRAM) | | ONLY[[id number]] Abnormal Final | | result Please view [...] | + + + | Blood | [facility], CORE [address] | | | [place] [address] | + + + CAPILLARY BLOOD GLUCOSE (NO CHG), POC (03/30/2018 1:30 PM) + +---------+ + | Component | Value | Ref Range | + +---------+ + | BLOOD GLUCOSE, POC | 135 (H) | 70 - 99 mg/dL | + +---------+ + + + + | Specimen | Performing Laboratory | + + + | | SDELAINE LYSSA MCLEAN, POINT OF CARE TESTS [address] | | | [place] [address] | + + + CBC (HEMOGRAM) ONLY [...] | + + + | Blood | [facility], CORE [address] | | | [place] [address] | + + + + + | [...] | >60 | >60 mL/min | | [place] | | | + +---------+ + | EGFR NON | >60 | >60 mL/min | | -[place] | | | + +---------+ + | [...] | + + + | Blood | [facility], [facility] [address] | | | [place] [address] | + + + + + | [...] | | ------ CBC (HEMOGRAM) | | ONLY[[id number]] Abnormal Final | | result Please view [...] | + + + | Blood | [facility], CORE [address] | | | [place] [address] | + + + + + | [...] | | ------ CBC (HEMOGRAM) | | ONLY[[id number]] Abnormal Final | | result Please view [...] | + + + | Blood | [facility] SERVICES, TRANSFUSION MEDICINE [address] [place] [address] | | | [place] [address] | + + + ABO & RH [...] | + + + | Blood | [facility] SERVICES, TRANSFUSION MEDICINE [address] [facility] | | | [place] [address] | + + + TYPE AND SCREEN [...] | ------ ABO & RH | | TYPE[[id number]] F | | inal result ANTIBODY | | SCREEN[[id number]] Fin | | al result Please view [...] + + | PRODUCT UNIT # | [id number] | | + + + + | UNIT ABO | A | | + + + + | UNIT RH | POS | | + + + + | STATUS OF UNIT | Presumed Transfused | | + + + + | EXPIRATION DATE | [id number] | | + + + + | BLOOD TYPE BARCODE | 6200 | | + + + + | BLOOD PRODUCT CODE | [id number] | | + + + + + + + | Specimen | Performing Laboratory | + + + | | [facility] SERVICES, TRANSFUSION MEDICINE [address] | | | [place] [address] | + + + CAPILLARY BLOOD GLUCOSE (NO CHG), POC (03/29/2018 12:12 PM) + +-------+ + | Component | Value | Ref Range | + +-------+ + | BLOOD GLUCOSE, POC | 87 | 70 - 99 mg/dL | + +-------+ + + + + | Specimen | Performing Laboratory | + + + | | LUIS - LYSSA OSORIO, POINT OF CARE TESTS [address] | | | [place] [address] | + + + CBC (HEMOGRAM) ONLY [...] | + + + | Blood | [facility], CORE [address] | | | [place] [address] | + + + + + | [...] | | ------ CBC (HEMOGRAM) | | ONLY[[id number]] Abnormal Final | | result Please view [...] | >60 | >60 mL/min | | [place] | | | + +---------+ + | EGFR NON | >60 | >60 mL/min | | -[place] | | | + +---------+ + | [...] | + + + | Blood | [facility], CORE [address] | | | [place] [address] | + + + + + | [...] | + + + | Blood | [facility], CORE [address] | | | [place] [address] | + + + + + | [...] | + + + | Blood | [facility], CORE [address] | | | [place] [address] | + + + CBC AND AUTO [...] | + + + | Blood | [facility] [address] | | | [place] [address] | + + + + + | [...] | ------ CBC AND AUTO | | DIFF[[id number]] Abnormal Final | | result RBC | | MORPHOLOGY[[id number]] | | Final result Please view results [...] | >60 | >60 mL/min | | [place] | | | + + + + | EGFR NON | >60 | >60 mL/min | | -[place] | | | + + + + [...] | | + + + + | JAKEI T CMNT | No Hemo | | + + + + | AST CMNT | No Hemo | | + + + + + + + | Specimen | Performing Laboratory | + + + | Blood | [facility], [place] [address] | | | [place] [address] | + + + + + | [...] | + + + | Blood | [facility], CORE [address] [facility] | | | [place] [address] | + + + + + | [...] | | ------ CBC (HEMOGRAM) | | ONLY[[id number]] Abnormal Final | | result Please view results for these tests on the | | individual orders. | + + OPERATION RECORD (03/27/2018 12:10 PM) + + | Procedure Note | + + | Lynda Basurto MD - 03/27/2018 12:10 PM PDT Date of Service: 03/27/2018 | | Attending Surgeon: Lynda Basurto MD Medical Office Receptionist Assistant(s): Odalys | | Mike Stafford PA-C. Please note no other qualified housekeeping assistant was available. | | Preoperative Diagnosis: [...] closure of the fascia. This was a 10-Greenlandic | | channel drain. Please note, the [...] how long her antibiotics need to go for.Lynda BasurtoDARIUS/SHANIAD: 03/27/2018 | | 11:18:37DT: 03/27/2018 12:10:06Job #: [id number] | + + CAPILLARY BLOOD GLUCOSE (NO CHG), POC (03/27/2018 12:06 PM) + +---------+ + | Component | Value | Ref Range | + +---------+ + | BLOOD GLUCOSE, POC | 125 (H) | 70 - 99 mg/dL | + +---------+ + + + + | Specimen | Performing Laboratory | + + + | | [facility], POINT OF CARE TESTS [address] | | | [place] [address] | + + + PROCEDURE NOTE (03/27/2018 11:37 AM) + + | Narrative | + + | Odalys Stafofrd PA-C 03/27/2018 11:39 AM INPATIENT BRIEF OPERATIVE [...] Laboratory | + + + | | [facility], POINT OF CARE TESTS [address] | | | [place] [address] | + + + CULTURE, TISSUE (03/27/2018 10:27 AM) + + + + | Component | Value | Ref Range | + + + + | CULTURE RESULT | Escherichia coli (A) | | + + + + + + + | Specimen | Performing Laboratory | + + + | Tissue - Leg | [facility] [address] [place], [place] | | | [address] | + + + + + | [...] + + | Tissue - Leg | [facility] [address] [place], [place] | | | [address] | + + + + + | [...] + + | Tissue - Leg | [facility] [place] [address] [place], [place] | | | [address] | + + + + + | [...] + + | Tissue - Leg | [facility] [place] [address] [place], [place] | | | [address] | + + + + + | [...] + + | Tissue - Leg | [facility] [place] [address] [place], [place] | | | [address] | + + + + + | [...] Laboratory | + + + | | SDELAINE - LYSSA MCLEAN, POINT OF CARE TESTS [address] | | | [place] [address] | + + + RBC MORPHOLOGY (03/27/2018 3:56 AM) + +---------+ + | Component | Value | Ref Range | + +---------+ + | DOHLE BODIES | Present | | + +---------+ + | TOXIC GRANULATION | Present | | + +---------+ + + + + | Specimen | Performing Laboratory | + + + | Blood | [facility], CORE [address] | | | [place] [address] | + + + MANUAL DIFFERENTIAL (03/27/2018 [...] | + + + | Blood | [facility], CORE [address] | | | [place] [address] | + + + + + | [...] | + + + | Blood | [facility], CORE [address] | | | [place] [address] | + + + + + | [...] | >60 | >60 mL/min | | [place] | | | + +---------+ + | EGFR NON | >60 | >60 mL/min | | -[place] | | | + +---------+ + | [...] | + + + | Blood | [facility], CORE [address] [place] [address] | | | [place] [address] | + + + + + | [...] | ------ CBC AND AUTO | | DIFF[[id number]] Abnormal Final | | result MANUAL | | DIFFERENTIAL[[id number]] Abnormal Final | | result RBC | | MORPHOLOGY[[id number]] | | Final result Please view results [...] | + + + | Blood | [facility], CORE [address] | | | [place] [address] | + + + + + | [...] | | ------ CBC (HEMOGRAM) | | ONLY[[id number]] Abnormal Final | | result Please view [...] | + + + | Blood | [facility], CORE [address] [facility] | | | [place] [address] | + + + COMPLETE METABOLIC SET [...] | >60 | >60 mL/min | | [place] | | | + +---------+ + | EGFR NON | >60 | >60 mL/min | | -[place] | | | + +---------+ + | [...] | + + + | Blood | [facility], CORE [address] [place] [address] | | | [place] [address] | + + + + + | [...] + + | PRODUCT UNIT # | [id number] | | + + + + | UNIT ABO | A | | + + + + | UNIT RH | POS | | + + + + | STATUS OF UNIT | Presumed Transfused | | + + + + | EXPIRATION DATE | [id number] | | + + + + | BLOOD TYPE BARCODE | 6200 | | + + + + | BLOOD PRODUCT CODE | [id number] | | + + + + + + + | Specimen | Performing Laboratory | + + + | | [facility], [facility] [address] [place] [address] | | | [place] [address] | + + + VANCOMYCIN, TROUGH (03/26/2018 1:30 AM) + + + + | Component | Value | Ref Range | + + + + | VANCOMYCIN, TROUGH | 20.3 (H) | 10.0 - 20.0 ug/mL | + + + + + + + | Specimen | Performing Laboratory | + + + | Blood | [facility], CORE [address] | | | [facility] [address] | + + + CBC (HEMOGRAM) ONLY [...] | + + + | Blood | [facility], [facility] [address] | | | [place] [address] | + + + + + | [...] | | ------ CBC (HEMOGRAM) | | ONLY[[id number]] Abnormal Final | | result Please view [...] + + | PRODUCT UNIT # | [id number] | | + + + + | UNIT ABO | A | | + + + + | UNIT RH | POS | | + + + + | STATUS OF UNIT | Returned to Blood Bank | | + + + + | EXPIRATION DATE | [id number] | | + + + + | BLOOD TYPE BARCODE | 6200 | | + + + + | BLOOD PRODUCT CODE | [id number] | | + + + + + + + | Specimen | Performing Laboratory | + + + | | [facility] SERVICES, TRANSFUSION MEDICINE [address] [facility] | | | [place] [address] | + + + RBC MORPHOLOGY (03/25/2018 6:03 PM) + +---------+ + | Component | Value | Ref Range | + +---------+ + | DOHLE BODIES | Present | | + +---------+ + | TOXIC GRANULATION | Present | | + +---------+ + + + + | Specimen | Performing Laboratory | + + + | Blood | [facility], CORE [address] | | | [place] [address] | + + + MANUAL DIFFERENTIAL (03/25/2018 [...] | + + + | Blood | [facility], CORE [address] [facility] [address] | | | [place] [address] | + + + + + | [...] | + + + | Blood | [facility], CORE [address] [place] [address] | | | [place] [address] | + + + RETICULOCYTE COUNT, BLOOD [...] --------- | | ------ RETICULOCYTE | | COUNT[[id number]] Abnormal Final | | result Please view [...] | + + + | Blood | [facility], CORE [address] | | | [place] [address] | + + + + + | [...] | ------ CBC AND AUTO | | DIFF[[id number]] Abnormal Final | | result MANUAL | | DIFFERENTIAL[[id number]] Abnormal Final | | result RBC | | MORPHOLOGY[[id number]] | | Final result Please view results [...] | + + + | Blood | [facility] [address] | | | [place] [address] | + + + CBC AND AUTO [...] | + + + | Blood | [facility], CORE [address] | | | [place] [address] | + + + + + | [...] | >60 | >60 mL/min | | [place] | | | + +---------+ + | EGFR NON | >60 | >60 mL/min | | -[place] | | | + +---------+ + | [...] | + + + | Blood | [facility], CORE [address] | | | [place] [address] | + + + + + | [...] | muscle-wasting diseses | + + CBC WITH DIFFERENTIAL (03/25/2018 6:23 AM) + + + | Specimen | Performing Laboratory | + + + | Blood | | + + + + + | Narrative | + + | The following orders were created for panel order CBC, WITH DIFFERENTIAL. | | Procedure | | Abnormality Status | | --------- | | ------ CBC AND AUTO | | DIFF[[id number]] Abnormal Final | | result RBC | | MORPHOLOGY[[id number]] | | Final result Please view results [...] + + | PRODUCT UNIT # | [id number] | | + + + + | UNIT ABO | A | | + + + + | UNIT RH | POS | | + + + + | STATUS OF UNIT | Presumed Transfused | | + + + + | EXPIRATION DATE | [id number] | | + + + + | BLOOD TYPE BARCODE | 6200 | | + + + + | BLOOD PRODUCT CODE | [id number] | | + + + + + + + | Specimen | Performing Laboratory | + + + | | [facility], TRANSFUSION MEDICINE [address] [facility] | | | [place] [address] | + + + RBC MORPHOLOGY (03/25/2018 [...] | + + + | Blood | [facility], CORE [address] | | | [place] [address] | + + + MANUAL DIFFERENTIAL (03/25/2018 [...] | + + + | Blood | [facility], CORE [address] [place] [address] | | | [place] [address] | + + + + + | [...] | + + + | Blood | [facility], CORE [address] [facility] | | | [facility] [address] | + + + + + | [...] | ------ CBC AND AUTO | | DIFF[[id number]] Abnormal Final | | result MANUAL | | DIFFERENTIAL[[id number]] Abnormal Final | | result RBC | | MORPHOLOGY[[id number]] | | Final result Please view results [...] | + + + | Blood | [facility], CORE [address] | | | [place] [address] | + + + + + | Narrative | + + | Please draw Vancomycin trough immediately before the next dose. (~1630) Thank you! | + + DEBRIDEMENT OF BELOW KNEE AMPUTATION STUMP (03/24/2018 1:31 PM) + + | Narrative | + + | Macie Torre MD 03/24/2018 1:49 PM [facility] | | DEPARTMENT OF ORTHOPAEDICS & REHABILITATION OPERATIVE REPORT | | Patient Name: Tati | | Reha Cage Date of : 1985 Contract | | Serial Number:: [id number] Report Author: MACIE TORRE MD Procedure Date: | | 03/24/2018 Attending Physician: 1. MACIE TORRE MD Medical Office Receptionist Assistant(s): | | 1. Tsering Burciaga MD Preoperative [...] muscle and fascia. Wound size | | [id number] after tacking back fascia Application of VAC [...] | | sponge in the remaining wound [id number]. Excellent seal was attained. The | | [...] discharge: plan for return to [place] on [facility] MACIE TORRE MD 03/24/2018, | | [...] Laboratory | + + + | | SDELAINE - LYSSA MCLEAN, POINT OF CARE TESTS [address] | | | [place] [address] | + + + SURGICAL PATHOLOGY (03/24/2018 [...] characteristics determined | | | | by [employer]. It has not been | | | [...] + + | Tissue - Leg | [facility] DEPARTMENT OF PATHOLOGY [address] | | | [place] [address] | + + + CULTURE, TISSUE (03/24/2018 [...] + + | Tissue - Leg | [facility] [address] [place], [place] | | | [address] | + + + + + | [...] + + | Tissue - Leg | [facility] [address] [place], [place] | | | [address] | + + + + + | Narrative | + + | Culture Report: 2+ Escherichia coli Refer to culture collected 03/24/18 at 11:56 AM | | for susceptibilities 1+ Prevotella bivia Rare Coagulase negative Staphylococcus | | species [...] + + | Tissue - Leg | [facility] [place] [address] [place], [place] | | | [address] | + + + + + | [...] + + | Tissue - Leg | [facility] [place] [address] [place], [place] | | | [address] | + + + + + | [...] + + | Tissue - Leg | [facility] [address] [place], [place] | | | [address] | + + + + + | [...] + + | PRODUCT UNIT # | [id number] | | + + + + | UNIT ABO | A | | + + + + | UNIT RH | NEG | | + + + + | STATUS OF UNIT | Presumed Transfused | | + + + + | EXPIRATION DATE | [id number] | | + + + + | BLOOD TYPE BARCODE | 0600 | | + + + + | BLOOD PRODUCT CODE | [id number] | | + + + + + + + | Specimen | Performing Laboratory | + + + | | [facility] SERVICES, TRANSFUSION MEDICINE [address] [place] [address] | | | [place] [address] | + + + PRODUCT - RED CELLS LEUKOREDUCED (03/24/2018 9:15 AM) + + + + | Component | Value | Ref Range | + + + + | PRODUCT DESCRIPTION | -1 RED BLOOD CELL ADENINE-SALINE ADDED | | | | LEUKOCYTE | | + + + + | PRODUCT UNIT # | [id number] | | + + + + | UNIT ABO | A | | + + + + | UNIT RH | POS | | + + + + | STATUS OF UNIT | Presumed Transfused | | + + + + | EXPIRATION DATE | [id number] | | + + + + | BLOOD TYPE BARCODE | 6200 | | + + + + | BLOOD PRODUCT CODE | [id number] | | + + + + + + + | Specimen | Performing Laboratory | + + + | | [facility] SERVICES, TRANSFUSION MEDICINE [address] [facility] | | | [place] [address] | + + + PRODUCT - RED CELLS LEUKOREDUCED (03/24/2018 9:15 AM) + + + + | Component | Value | Ref Range | + + + + | PRODUCT DESCRIPTION | -1 RED BLOOD CELL ADENINE-SALINE ADDED | | | | LEUKOCYTE | | + + + + | PRODUCT UNIT # | [id number] | | + + + + | UNIT ABO | A | | + + + + | UNIT RH | POS | | + + + + | STATUS OF UNIT | Presumed Transfused | | + + + + | EXPIRATION DATE | [id number] | | + + + + | BLOOD TYPE BARCODE | 6200 | | + + + + | BLOOD PRODUCT CODE | [id number] | | + + + + + + + | Specimen | Performing Laboratory | + + + | | [facility] SERVICES, TRANSFUSION MEDICINE [address] [facility] | | | [place] [address] | + + + RBC MORPHOLOGY (03/24/2018 [...] | + + + | Blood | [facility], CORE [address] [place] [address] | | | [place] [address] | + + + MANUAL DIFFERENTIAL (03/24/2018 [...] | + + + | Blood | [facility], CORE [address] | | | [place] [address] | + + + + + | [...] | + + + | Blood | [facility] SERVICES, CORE [address] | | | [place] [address] | + + + + + | [...] | >60 | >60 mL/min | | [place] | | | + +---------+ + | EGFR NON | >60 | >60 mL/min | | -[place] | | | + +---------+ + | [...] | + + + | Blood | [facility], CORE [address] | | | [place] [address] | + + + + + | [...] | ------ CBC AND AUTO | | DIFF[[id number]] Abnormal Final | | result MANUAL | | DIFFERENTIAL[[id number]] Abnormal Final | | result RBC | | MORPHOLOGY[[id number]] | | Final result Please view results [...] | + + + | Blood | [facility] SERVICES, CORE [address] | | | [place] [address] | + + + + + | [...] | | ------ CBC (HEMOGRAM) | | ONLY[[id number]] Abnormal Final | | result Please view [...] + + | PRODUCT UNIT # | [id number] | | + + + + | UNIT ABO | A | | + + + + | UNIT RH | POS | | + + + + | STATUS OF UNIT | Presumed Transfused | | + + + + | EXPIRATION DATE | [id number] | | + + + + | BLOOD TYPE BARCODE | 6200 | | + + + + | BLOOD PRODUCT CODE | [id number] | | + + + + + + + | Specimen | Performing Laboratory | + + + | | [facility], [facility] [address] [place] [address] | | | [place] [address] | + + + C-REACTIVE PROTEIN (03/23/2018 4:44 PM) + + + + | Component | Value | Ref Range | + + + + | C-REACTIVE PROTEIN | 166.0 (H) | <10.0 mg/L | + + + + + + + | Specimen | Performing Laboratory | + + + | Blood | [facility], CORE [address] [facility] | | | [place] [address] | + + + + + | [...] | + + + | Blood | [facility], CORE [address] [place] [address] | | | [place] [address] | + + + D-DIMER, (PE OR DIC) (03/23/2018 4:44 PM) + + + + | Component | Value | Ref Range | + + + + | D-DIMER (PE OR DIC) | 0.62 (H) | <0.50 ug/mLFEU | + + + + + + + | Specimen | Performing Laboratory | + + + | Blood | [facility], CORE [address] | | | [place] [address] | + + + + + | [...] | + + + | Blood | [facility], CORE [address] | | | [place] [address] | + + + + + | [...] | + + + | Blood | [facility], CORE [address] | | | [place] [address] | + + + COMPLETE METABOLIC SET [...] | >60 | >60 mL/min | | [place] | | | + +---------+ + | EGFR NON | >60 | >60 mL/min | | -[place] | | | + +---------+ + | [...] | + + + | Blood | [facility], [address]ORE [address] [facility] [address] | | | [place] [address] | + + + + + | [...] | + + + | Blood | [facility], [address] | | | [place] [address] | + + + RETICULOCYTE COUNT (03/23/2018 [...] | + + + | Blood | [facility], [address] | | | [place] [address] | + + + RETICULOCYTE COUNT, BLOOD [...] --------- | | ------ RETICULOCYTE | | COUNT[[id number]] Abnormal Final | | result Please view [...] | + + + | Blood | [facility], TRANSFUSION MEDICINE [address] [facility] | | | [place] [address] | + + + CBC AND AUTO [...] | + + + | Blood | [facility], [address] | | | [place] [address] | + + + + + | [...] | + + + | Blood | [facility], TRANSFUSION MEDICINE [address] [facility] | | | [address] [place] [address] | + + + SEDIMENTATION RATE (03/23/2018 4:41 PM) + +---------+ + | Component | Value | Ref Range | + +---------+ + | SEDIMENTATION RATE | 102 (H) | 0 - 20 mm/hr | + +---------+ + + + + | Specimen | Performing Laboratory | + + + | Blood | [facility], [address]ORE [address] | | | [place] [address] | + + + + + | [...] | ------ CBC AND AUTO | | DIFF[[id number]] Abnormal Final | | result RBC | | MORPHOLOGY[[id number]] | | Final result Please view results for these tests on the | | individual orders. | + + CULTURE, BLOOD BACTI & YEAST [facility] (03/23/2018 4:40 PM) + + + + | Component | Value | Ref Range | + + + + | CULTURE RESULT | Final Report:No Bacteria or Yeast isolated | | | | at 5 days. | | + + + + + + + | Specimen | Performing Laboratory | + + + | Blood | [facility] [facility] [address] | | | [place] [address] | + + + CULTURE, BLOOD BACTI [...] ------ CULTURE, BLOOD | | BACTI & Y...[[id number]] Final | | result Please view results for these tests on the | | individual orders. | + + CULTURE, BLOOD BACTI & YEAST LUIS (03/23/2018 4:21 PM) + + + + | Component | Value | Ref Range | + + + + | CULTURE RESULT | Final Report:No Bacteria or Yeast isolated | | | | at 5 days. | | + + + + + + + | Specimen | Performing Laboratory | + + + | Blood - Antecubital | [facility], [facility] [address] | | - left | [place] [address] | + + + CULTURE, BLOOD BACTI [...] ------ CULTURE, BLOOD | | BACTI & Y...[[id number]] Final | | result Please view results [...] + | Neutropenic fever (HCC) - Primary | + + | Neutropenia, unspecified | + + | Hx of BKA, left (HCC) | + + | Amputation stump infection (HCC) | + + | Infection (chronic) of amputation stump | + + | Obesity, unspecified classification, unspecified obesity type, unspecified whether | | serious comorbidity present | + + | Anemia, unspecified type | + + | Synovial sarcoma (HCC) | + + | 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, site unspecified | + + | Osteomyelitis, unspecified site, unspecified type (HCC) | + + | Thrombocytopenia (HCC) | + + | Thrombocytopenia, unspecified | + + | Encounter for long-term (current) use of antibiotics | + + Admitting Diagnoses + + [...] ceFEPIme (MAXIPIME) injection 2 | Given | | 2 g | | | | g 2 g, intravenous, EVERY 8 | | 8 23:33 | | | | | HOURS, First dose on 03/23/18 | | PDT | | | | | at 1515, Until Discontinued | | | | | | + +-------+ +-----+---+---+ +-------+ +-----+---+---+ | Given | | 2 g | | | | | 8 07:03 | | | | | | PDT | | | | +-------+ +-----+---+---+ | Given | | 2 g | | | | | 8 15:28 | | | | | | PDT | | | | +-------+ +-----+---+---+ +---+---+ | | | +---+---+ + +-------+ +-------+---+---+ | citalopram (CELEXA) tablet 40 | Given | | 40 mg | | | | mg 40 mg, oral, DAILY, First | | 8 16:55 | | | | | dose on 03/23/18 at 1600, | | PDT | | | | [...] IV 1,000 mL, | New Bag | | 1,000 mL | | | | intravenous, ONCE, 1 dose, Fri | | 8 12:57 | | | | | 03/28/18 at 1230 | | PDT | | | | + +---------+ + +---+---+ +---+---+ | | | +---+---+ + +---------+ + +---+---+ | dextrose 5 % IV 1,000 mL, | New Bag | | 1,000 mL | | | | intravenous, ONCE, 1 dose, Sat | | 8 14:10 | | | | | 03/29/18 at 1330 | | PDT | | | | + +---------+ + +---+---+ +---+---+ | | | +---+---+ + +-------+ +-------+---+---+ | diphenhydrAMINE (BENADRYL) | Given | | 25 mg | | | | capsule 25 mg 25 mg, oral, ONCE, | | 8 10:53 | | | | | 1 dose, 03/25/18 at 1115 | | PDT | | | | [...] | + +---+ | | | | [id number] | | | (SPECIAL MOUTHWASH) suspension | [...] mg 40 mg, subcutaneous, ONCE, | | 8 21:00 | | | | | 1 dose, 03/25/18 at 2100 | | PDT | | | | + +-------+ +-------+---+---------+ +---+---+ | | | +---+---+ + +-------+ +-------+---+---------+ | enoxaparin (LOVENOX) injection | Given | | 40 mg | | Abdomen | | 40 mg 40 mg, subcutaneous, EVERY | | 8 20:22 | | | | | 12 HOURS, First dose on Fri | | PDT | | | | | 03/28/18 at 2100, Until | | | | | | | Discontinued | | | | | | + +-------+ +-------+---+---------+ +-------+ +-------+---+---------+ | Given | | 40 mg | | Abdomen | | | 8 10:32 | | | | | | PDT | | | | +-------+ +-------+---+---------+ | Given | | 40 mg | | Abdomen | | | 8 21:08 | | [...] 50 mcg 50 mcg, intravenous, | | 8 13:21 | | | | | POSTPROCEDURE PRN, 4 doses, | | PDT | | | | | Starting Sat03/24/18 at 1154, | | | | | | | Until 03/24/18 at 1508, severe | | | | | | | pain while in Phase I Recovery | | | | | | + +-------+ +--------+---+---+ +-------+ +--------+---+---+ | Given | | 50 mcg | | | | | 8 13:33 | | | | | | PDT | | | | +-------+ +--------+---+---+ +---+---+ | | | +---+---+ + +-------+ +--------+---+---+ | fentaNYL (SUBLIMAZE) injection | Given | | 50 mcg | | | | 50 mcg 50 mcg, intravenous, | | 8 12:28 | | | | | POSTPROCEDURE PRN, 4 doses, | | PDT | | | | | Starting [facility] 03/27/18 at 1027, | | | | | | | Until [facility] 03/27/18 at 1425, severe | | | | | | | pain while in Phase I Recovery | | | | | | + +-------+ +--------+---+---+ +-------+ +--------+---+---+ | Given | | 50 mcg | | | | | 8 13:11 | | | | | | PDT [...] tablet 25 mg 25 | | 8 16:58 | | | | | mg, oral, DAILY, First dose on | | PDT | | | | | 03/23/18 at 1600, Until | | | | | | | Discontinued | | | | | | + +-------+ +-------+---+---+ +---+---+ | | | +---+---+ + +-------+ +--------+---+---+ | HYDROmorphone (DILAUDID) | Given | | 0.2 mg | | | | injection 0.2-0.5 mg 0.2-0.5 mg, | | 8 14:04 | | | | | intravenous, POSTPROCEDURE [...] | HYDROmorphone (DILAUDID) | Given | | 0.5 mg | | | | injection 0.2-0.5 mg 0.2-0.5 mg, | | 8 14:14 | | | | | intravenous, EVERY 4 HOURS | | PDT | | | | | NEEDED, Starting 03/24/18 at | | | | | | | 1544, Until 03/30/18 at 0852, | | | | | | | severe pain | | | | | | + +-------+ +--------+---+---+ +-------+ +--------+---+---+ | Given | | 0.5 mg | | | | | 8 17:58 | | | | | | PDT | | | | +-------+ +--------+---+---+ | Given | | 0.5 mg | | | | | 8 15:28 | | | | | | PDT | | | | +-------+ +--------+---+---+ +---+---+ | | | +---+---+ + +-------+ +--------+---+---+ | HYDROmorphone (DILAUDID) | Given | | 0.5 mg | | | | injection 0.5 mg 0.5 mg, | | 8 14:14 | | | | | intravenous, ONCE, 1 dose, Sun | | PDT | | | | [...] (OMNIPAQUE) 350 mg | IV Push | | 100 mL | | | | iodine/mL injection 100 mL 100 | | 8 16:56 | | | | | mL, intravenous, ONCE, 1 dose, | | PDT | | | | | 03/31/18 at 1745 | | | | | | + +---------+ +--------+---+---+ +---+---+ | | | +---+---+ + +---------+ + +---+---+ | lactated Ringers IV 1,000 mL, | New Bag | | 1,000 mL | | | | intravenous, ONCE, 1 dose, Sun | | 8 18:52 | | | | | 03/23/18 at 1815 | | PDT | | | | + +---------+ + +---+---+ +---+---+ | | | +---+---+ + +---------+ +-------+-------+---+ | lactated Ringers IV 100 mL/hr, | New Bag | | 100 | 100 | | | intravenous, CONTINUOUS, | | 8 02:06 | mL/hr | mL/hr | | | Starting Bettie 03/27/18 at 0000, | | PDT | | | | | Until Bettie 03/27/18 at 1454 | | | | | | + +---------+ +-------+-------+---+ + + +-------+-------+---+ | Restarted | | 100 | 100 | | | | 8 13:09 | mL/hr | mL/hr | | | [...] oral, ONCE, 1 dose, | | 8 20:58 | | | | | 03/25/18 at 2115 | | PDT | | [...] 20 mEq/L (09/03 | New Bag | | | 250 | | | NS-20 KCl) IV infusion | | 8 15:57 | | mL/hr | | | intravenous, CONTINUOUS, Starting | | PDT | | | | | Bettie 03/27/18 at 1515, Until Bettie | | | | | | | 03/27/18 at 1914 | | | | | | + +---------+ +---+-------+---+ +---+---+ | | | +---+---+ + +-------+ +--------+---+---+ | naproxen (NAPROSYN) tablet 500 | Given | | 500 mg | | | | mg 500 mg, oral, TWICE DAILY, | | 8 10:58 | | | | | First dose on 03/30/18 at | | PDT | | | | | 1045, Until Discontinued | | | | | | + +-------+ +--------+---+---+ +-------+ +--------+---+---+ | Given | | 500 mg | | | | | 8 21:08 | | | | | | PDT | | | | +-------+ +--------+---+---+ | Given | | 500 mg | | | | | 8 [...] tablet 5-15 mg 5-15 | | 8 08:04 | | | | | mg, oral, [...] mg | | | | | 8 14:19 | | | | | | PDT | | | | +-------+ +-------+---+---+ | Given | | 5 mg | | | | | 8 15:29 | | | | | | PDT | | | | +-------+ +-------+---+---+ +---+---+ | | | +---+---+ + +-------+ +-------+---+---+ | oxyCODONE (immediate release) | Given | | 10 mg | | | | (ROXICODONE) tablet 5-15 mg 5-15 | | 8 18:36 | | | | | mg, oral, EVERY 4 HOURS | | PDT | | | | | NEEDED, Starting Sat03/24/18 at | | | | | | | 1545, Until Sat03/27/18 at 1454, | | | | | | | moderate pain | | | | | | + +-------+ +-------+---+---+ +-------+ +-------+---+---+ | Given | | 10 mg | | | | | 8 23:43 | | | | | | PDT | | | | +-------+ +-------+---+---+ | Given | | 10 mg | | | | | 8 04:16 | | | | | | PDT [...] piperacillin-tazobactam (ZOSYN) | New Bag | | 3.375 g | | | | IV (minibag+) 3.375 g 3.375 g, | | 8 18:17 | | | | | intravenous, EVERY 6 HOURS, First | | PDT | | | | | dose on 03/30/18 at 0000, | | | | | | | Until Discontinued | | | | | | + +---------+ +---------+---+---+ +---------+ +---------+---+---+ | New Bag | | 3.375 g | | | | | 8 00:20 | | | | | | PDT | | | | +---------+ +---------+---+---+ | New Bag | | 3.375 g | | | | | 8 06:17 | | | | | | PDT | | | | +---------+ +---------+---+---+ +---+---+ | | | +---+---+ + +---------+ +-------+---+---+ | piperacillin-tazobactam (ZOSYN) | New Bag | | 4.5 g | | | | IV (minibag+) 4.5 g 4.5 g, | | 8 18:35 | | | | | intravenous, ONCE, 1 dose, Sat | | PDT | | | | | 03/29/18 [...] potassium chloride SR (K-DUR) | Given | | 20 mEq | | | | tablet 20 mEq 20 mEq, oral, | | 8 12:22 | | | | | TWICE DAILY, 2 doses, First dose | | PDT | | | | | on Sat03/28/18 at 1345, Last dose | | | | | | | on Sat03/28/18 at 2100 | | | | | | + +-------+ +--------+---+---+ +-------+ +--------+---+---+ | Given | | 20 mEq | | | | | 8 21:56 | | | | | | PDT | | | | +-------+ +--------+---+---+ +---+---+ | | | +---+---+ + +-------+ +--------+---+---+ | pregabalin (LYRICA) capsule 225 | Given | | 225 mg | | | | mg 225 mg, oral, TWICE DAILY, | | 8 09:17 | | | | | First dose on Sat03/23/18 at | | PDT | | | [...] 2 mL/hr | | | 0.9 % (NS) peripheral nerve block | e Verify | 8 21:28 | | | | | (CADD PUMP) injection, | | PDT | | | | | CONTINUOUS, Starting Bettie 03/27/18 | | | | | | | at 1230, Until 03/31/18 at | | | | | | | 0927 | | | | | | + + + +---+---------+---+ + + +---+---------+---+ | Rate/Dose Change | | | 0 mL/hr | | | | 8 21:46 | | | | | | PDT | | | | + + +---+---------+---+ | Rate/Dose Verify | | | 0 mL/hr | | | | 8 01:48 | | | | | | PDT [...] (VANCOCIN) IV 1,250 | New Bag | | 1,250 mg | | | | mg 1,250 mg, intravenous, EVERY | | 8 00:22 | | | | | 8 HOURS, First dose on Sun | | PDT | | | | | 03/23/18 at 1645, Until | | | | | | | Discontinued | | | | | | + +---------+ + +---+---+ +---------+ + +-------+---+ | New Bag | | 1,250 mg | | | | | 8 08:41 | | | | | | PDT | | | | +---------+ + +-------+---+ | New Bag | | 1,250 mg | 131 | | | | 8 17:31 | | mL/hr | | | | PDT | | | | +---------+ + +-------+---+ +---+---+ | | | +---+---+ + +---------+ + +-------+---+ | vancomycin (VANCOCIN) IV 1,250 | New Bag | | 1,250 mg | 131 | | | mg 1,250 mg, intravenous, EVERY | | 8 16:03 | | mL/hr | | | 8 HOURS, First dose on Wed | | PDT | | | | | 03/26/18 at 1200, Until | | | | | | | Discontinued | | | | | | + +---------+ + +-------+---+ +---------+ + +---+---+ | New Bag | | 1,250 mg | | | | | 8 23:42 | | | | | | PDT | | | | +---------+ + +---+---+ | New Bag | | 1,250 mg | | | | | 8 07:47 | | | | | | PDT | | | | +---------+ + +---+---+ +---+---+ | | | +---+---+ + +---------+ + +---+---+ | vancomycin (VANCOCIN) IV 1,500 | New Bag | | 1,500 mg | | | | mg 1,500 mg, intravenous, EVERY | | 8 10:33 | | | | | 8 HOURS, First dose on Tue | | PDT | | | | | 03/25/18 at 0200, Until | | | | | | | Discontinued | | | | | | + +---------+ + +---+---+ +---------+ + +---+---+ | New Bag | | 1,500 mg | | | | | 8 17:49 | | | | | | PDT | | | | +---------+ + +---+---+ | New Bag | | 1,500 mg | | | | | 8 01:30 | | | | | | PDT | | | | +---------+ + +---+---+ +---+---+ | | | +---+---+ + +---------+ + +---+---+ | vancomycin (VANCOCIN) IV 1,500 | New Bag | | 1,500 mg | | | | mg 1,500 mg, intravenous, EVERY | | 8 11:58 | | | | | 12 HOURS, First dose on Sat | | PDT | | | | | 03/29/18 at 1200, Until | | | | | | | Discontinued | | | | | | + +---------+ + +---+---+ +---+---+ | | | +---+---+ in this encounter
--- OUTSIDE RECORDS SUMMARY | ~2018-04-16 | XMS | Encounter Summary ---
Demographics + + + | Address | [address] | | | [place] [address] | + + + | Home Phone [...] Team Providers + +------+ + | Care Central Service Supply Distributor Name | Role | Phone | [...] Other (incision | | 2017 | | [facility] [address] | [address] | issue) | | | | [employer] Mailcode: [id number] | [address] | | | | | [facility] | [place], [place] | | | | | and [facility] | [address] | | | | | Floor [place], [place] | [phone] | | | | | [address] | | | | | | [phone] | | | +--------+ + + + [...] Road | | | | | | [place] [address] | | +--------+ + + + + | 04/24/ | Office | Hematology & | Annie Gannon, | | | 2017 | Visit | Oncology | [place]COMMUNITY RELATIONS OFFICER [address] | [address] | | | | | | [place], [place] | | | | | | [address] | | | | | | [phone] | | | | | | | | +--------+ + + + + | 04/24/ | Hospital | Adult Acute Care | Savanna Mari, | | | 2017 | Encounter | | [address] | | | | | | [place], [place] | | | | | | [address] | | | | | | [phone] | | | | | | | [...] | | | | | | [place], [place] | | | | | | [address] | | | | | | [phone] | | | | | | | | +--------+ + + + + as of this encounter Visit Diagnoses Not on filein this encounter"
--- OUTSIDE RECORDS SUMMARY | ~2018-04-16 | XMS | Encounter Summary ---
Demographics + + + | Address | [address] | | | [place] [address] | + + + | Home Phone [...] + + + | Author | [facility] | + + + | Organization | [facility] | + + + | Address | Unknown | + + + | Phone | Unavailable | + + + Support + + +---------+ + | Name | Relationship | Address | Phone | + + +---------+ + | ROSE BOWENS | ECON | Unknown | | + + +---------+ + Care Team Providers + +------+ + | Care Conditioning Room Worker Name | Role | Phone | [...] Nascimento | | | | | | [facility] | | | | | | [place], [place] | | | | | | [address] | | | +--------+ + + + [...] | | Oncology | [address] | | | | | | [place] [address] | | +--------+ + + + + | 04/24/ | Office | Hematology & | Annie Gannon, | | | 2018 | Visit | Oncology | [facility] [address] | | | | [address] | | | | | | [place], [place] | | | | | | [address] | | | | | | [phone] | | | | | | | | +--------+ + + + + | 04/24/ | Hospital | Adult Acute Care | Savanna Mari, | | | 2017 | Encounter | | [address] | | | | | | [facility] [place] | | | | | | [address] | | | | | | [phone] | | | | | | | [...] [address] | | | | | | [facility], [place] | | | | | | [address] | | | | | | [phone] | | | | | | | | +--------+ + + + + as of this encounter Visit Diagnoses Not on filein this encounter"
--- OUTSIDE RECORDS SUMMARY | ~2018-04-16 | XMS | Encounter Summary ---
Demographics + + + | Address | [address] | | | [place] [address] | + + + | Home Phone [...] + + + | Author | [facility] | + + + | Organization | [facility] | + + + | Address | Unknown | + + + | Phone | Unavailable | + + + Support + + +---------+ + | Name | Relationship | Address | Phone | + + +---------+ + | ROSE BOWENS | ECON | Unknown | | + + +---------+ + Care Team Providers + +------+ + | Care Hand Cigar Maker Name | Role | Phone | [...] | | | | | | [facility] | | | | | | [place], [place] | | | | | | [address] | | | +--------+ + + + [...] | | Oncology | [address] | | | | | | [place] [address] | | +--------+ + + + + | 04/24/ | Office | Hematology & | Annie Gannon, | | | 2018 | Visit | Oncology | [facility],PLUSH WE[facility] [address] | | [address] | | | | | | [place], [place] | | | | | | [address] | | | | | | [phone] | | | | | | | | +--------+ + + + + | 04/24/ | Hospital | Adult Acute Care | Savanna Mari, | | | 2017 | Encounter | | [address] | | | | | | [facility] [place] | | | | | | [address] | | | | | | [phone] | | | | | | | [...] [place] | | | | | | [address] | | | | | | [phone] | | | | | | | | +--------+ + + + + as of this encounter Visit Diagnoses Not on filein this encounter"
--- OUTSIDE RECORDS SUMMARY | ~2018-04-16 | XMS | Encounter Summary ---
Demographics + + + | Address | [address] | | | [place] [address] | + + + | Home Phone [...] Author + + + | Author | [facility] | + + + | Organization | [facility] | + + + | Address | Unknown | + + + | Phone | Unavailable | + + + Support + + +---------+ + | Name | Relationship | Address | Phone | + + +---------+ + | ROSE BOWENS | ECON | Unknown | | + + +---------+ + Care Team Providers + +------+ + | Care Decorating Consultant Name | Role | Phone | [...] | | 2017 | | [facility] | | | | | [facility] | | | | | | [address] | | | | | | Mailcode: CH7M | | | | | | [facility] | | | | | | and Healing, 7th | | | | | | Floor [place], [place] | | | | | | [address] | | | | | | [phone] | | | +--------+ + + + [...] [address] | | | | | | [place] [address] | | +--------+ + + + + | 04/24/ | Office | Hematology & | Annie Gannon, | | | 2017 | Visit | Oncology | AGACNP,MISSILE INSPECTOR PREFLIGHT [address] | | [address] | | | | | | [place], [place] | | | | | | [address] | | | | | | [phone] | | | | | | | | +--------+ + + + + | 04/24/ | Hospital | Adult Acute Care | Savanna Mari, | | | 2017 | Encounter | | MD [address] | | | | | | [place], [place] | | | | | | [address] | | | | | | [phone] | | | | | | | [...] [place] | | | | | | [address] | | | | | | [phone] | | | | | | | | +--------+ + + + + as of this encounter Visit Diagnoses Not on filein this encounter"
--- OUTSIDE RECORDS SUMMARY | ~2018-04-16 | XMS | Encounter Summary ---
Demographics + + + | Address | [address] | | | [place] [address] | + + + | Home Phone [...] Team Providers + +------+ + | Care Umbrella Tipper Name | Role | Phone | + [...] | | | | | [place], | | | | | | [place] [address] | | | +--------+--------+ + + + [...] 2017 | | Oncology | [address] [facility] | | | | | | [place] [address] | | +--------+ + + + + | 04/24/ | Office | Hematology & | Annie Gannon, | | | 2017 | Visit | Oncology | [facility] [address] | | | | | [address] | | | | | | [place], [place] | | | | | | [address] | | | | | | [phone] | | | | | | | | +--------+ + + + + | 04/24/ | Hospital | Adult Acute Care | Savanna Mari, | | | 2017 | Encounter | | [address] | | | | | | [place], [place] | | | | | | [address] | | | | | | [phone] | | | | | | | [...] Scott | | | | | | [place], [place] | | | | | | [address] | | | | | | [phone] | | | | | | | | +--------+ + + + + as of this encounter Visit Diagnoses Not on filein this encounter"
--- OUTSIDE RECORDS SUMMARY | ~2018-04-16 | XMS | Encounter Summary ---
Demographics + + + | Address | [address] | | | [place] [address] | + + + | Home Phone [...] Team Providers + +------+ + | Care Banquet Line Cook Name | Role | Phone | + [...] biopsy | | 2018 | Encounter | [facility] [address] | [address] [facility] | site | | | | Ave Mailcode: CH12A | [facility] | | | | | [facility] | [place], [place] | | | | | and | [address] | | | | | Floor [place], [place] | [phone] | | | | | [address] | | | | | | [phone] | | | +--------+ + + + [...] Road | | | | | | [place] [address] | | +--------+ + + + + | 04/24/ | Office | Hematology & | Annie Gannon, | | | 2017 | Visit | Oncology | [facility] [address] | | | | | [address] | | | | | | [place], [place] | | | | | | [address] | | | | | | [phone] | | | | | | | | +--------+ + + + + | 04/24/ | Hospital | Adult Acute Care | Savanna Mari, | | | 2017 | Encounter | | [address] | | | | | | [place], [place] | | | | | | [address] | | | | | | [phone] | | | | | | | [...] [place] | | | | | | [address] | | | | | | [phone] | | | | | | | | +--------+ + + + + as of this encounter Visit Diagnoses Not on filein this encounter"
--- OUTSIDE RECORDS SUMMARY | ~2018-04-16 | XMS | Encounter Summary ---
Demographics + + + | Address | [address] | | | [place] [address] | + + + | Home Phone [...] Author + + + | Author | [facility] | + + + | Organization | [facility] | + + + | Address | Unknown | + + + | Phone | Unavailable | + + + Support + + +---------+ + | Name | Relationship | Address | Phone | + + +---------+ + | ROSE BOWENS | ECON | Unknown | | + + +---------+ + Care Team Providers + +------+ + | Care Slice Plug Cutter Operator Helper Name | Role | [...] | 2018 | on | [facility] [place] | [address] | follow-up ([facility] | | | | [facility] | [place], [place] | and Labs - Cycle #2) | | | | [address] | [address] | | | | | Mailcode: CH7M | [phone] | | | | | [facility] | | | | | | and [facility], | | | | | | Floor [place], [place] | | | | | | [address] | | | | | | [phone] | | | +--------+ + + + [...] | | Oncology | [address] | | | | | | [place] [address] | | +--------+ + + + + | 04/24/ | Office | Hematology & | Annie Gannon, | | | 2017 | Visit | Oncology | [facility] [address] | | | | | [address] | | | | | | [place], [place] | | | | | | [address] | | | | | | [phone] | | | | | | | | +--------+ + + + + | 04/24/ | Hospital | Adult Acute Care | Savanna Mari, | | | 2017 | Encounter | | [address] | | | | | | [place], [place] | | | | | | [address] | | | | | | [phone] | | | | | | | [...] [address] | | | | | | [place], [place] | | | | | | [address] | | | | | | [phone] | | | | | | | | +--------+ + + + + as of this encounter Visit Diagnoses + + | Diagnosis | + + | Synovial sarcoma (HCC) - Primary | + + | 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
--- OUTSIDE RECORDS SUMMARY | ~2018-04-16 | XMS | Encounter Summary ---
Demographics + + + | Address | [address] | | | [place] [address] | + + + | Home Phone [...] Author + + + | Author | [facility] | + + + | Organization | [facility] | + + + | Address | Unknown | + + + | Phone | Unavailable | + + + Support + + +---------+ + | Name | Relationship | Address | Phone | + + +---------+ + | ROSE BOWENS | ECON | Unknown | | + + +---------+ + Care Team Providers + +------+ + | Care Armature And Rotor Winder Name | Role | Phone | + +------+ + | Santo Gooden MD | PCP | | + +------+ + Encounter Details +--------+------+ + + + | Date | Type | Department | Care Team | Description | +--------+------+ + + + | 01/23/ | Lab | Laboratory at [facility] | | Synovial sarcoma | | 2018 | | 3rd Floor [address] | | ([facility]) | | | | [address] [place], | | | | | | [place] [address] | | | | | | [phone] | | | +--------+------+ + + + [...] Hospital | | | | | | [place] [address] | | +--------+ + + + + | 04/24/ | Office | Hematology & | Annie Gannon, | | | 2018 | Visit | Oncology | [facility] [address] | | | | | | [address] | | | | | | [place], [place] | | | | | | [address] | | | | | | [phone] | | | | | | | | +--------+ + + + + | 04/24/ | Hospital | Adult Acute Care | Savanna Mari, | | | 2017 | Encounter | | [address] | | | | | | [place], [place] | | | | | | [address] | | | | | | [phone] | | | | | | | [...] Scott | | | | | | [place], [place] | | | | | | [address] | | | | | | [phone] | | | | | | | | +--------+ + + + + as of this encounter Results CBC AND AUTO DIFF (01/23/2018 2:48 PM) + + + + | Component | Value | Ref Range | + + + + | WHITE CELL COUNT | 10.91 (H) | 3.50 - 10.80 K/cu mm | + + + + | RED CELL COUNT | 4.93 | 4.00 - 5.20 M/cu mm | + + + + | HEMOGLOBIN | 14.9 | 12.0 - 16.0 g/dL | + + + + | HEMATOCRIT | 43.3 | 36.0 - 46.0 % | + + + + | MCV | 87.8 | 80.0 - 100.0 fL | + + + + | MCHC | 34.4 | 32.0 - 36.0 g/dL | + + + + | RDW SD | 39.8 | 35.1 - 46.3 fL | + + + + | PLATELET COUNT | 364 | 150 - 400 K/cu mm | + + + + | MPV | 10.2 | 9.7 - 12.3 fL | + + + + | NEUTROPHIL % | 56.1 | 50.0 - 70.0 % | + + + + | LYMPHOCYTE % | 32.3 | 18.0 - 42.0 % | + + + + | MONOCYTE % | 7.3 | 3.5 - 9.0 % | + + + + | EOS % | 3.8 (H) | 1.0 - 3.0 % | + + + + | BASO % | 0.5 | 0.0 - 2.0 % | + + + + | NEUTROPHIL # | 6.13 | 1.80 - 7.70 K/cu mm | + + + + | LYMPHOCYTE # | 3.52 | 1.00 - 4.80 K/cu mm | + + + + | MONOCYTE # | 0.80 | 0.10 - 0.90 K/cu mm | + + + + | EOS # | 0.41 | 0.00 - 0.50 K/cu mm | + + + + | BASO # | 0.05 | 0.00 - 0.10 K/cu mm | + + + + + + + | Specimen | Performing Laboratory | + + + | Blood | [facility] [address] | | | [place] [address] | + + + INR (01/23/2018 2:48 PM) + +-------+ + | Component | Value | Ref Range | + +-------+ + | INR | 1.03 | 0.90 - 1.20 INR | + +-------+ + + + + | Specimen | Performing Laboratory | + + + | Blood | [facility], CORE [address] [facility] [address] | | | [place] [address] | + + + + + | [...] | + + + | Blood | [facility], [facility]ING [address] | | | [place] [address] | + + + [facility] - CBC [...] | ------ CBC AND AUTO | | DIFF[[id number]] Abnormal Final | | result Please view results for these tests on the | | individual orders. 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
--- OUTSIDE RECORDS SUMMARY | ~2018-04-16 | XMS | Encounter Summary ---
Demographics + + + | Address | [address] | | | [place] [address] | + + + | Home Phone [...] Team Providers + +------+ + | Care Assistant Editor Name | Role | Phone | + [...] | soft tissue | Federico Nascimento | [facility] | | | | | of left | [address] | | | | | lower | [facility] [place] | [facility] [place] | | | | | extremity | [address] | [address] | | | | | (HCC) | Phone: | Phone: | | | | | Procedures | [phone] | [phone] | | | | | REQUEST TO | Fax: | Fax: | | | | | SURGERY | [phone] | [phone] | | | | | GRINDER TENDER | | | | | | | MD RAD RESEC | | | | | | | TUMOR,SOFT | | | | | | | TISS FOOT | | | | | | | MD RESECT | | | | | | [...] Oncology | Malignant | Lynda, | [address] | | | | | neoplasm of | MD [address] | | | | | soft tissue | [address]ascimento | [place], [place] | | | | | of left | [address] | [address] | | | | | lower | [place], [place] | Phone: | | | | | extremity | [address] | [phone] | | | | | (HCC) | Phone: | Fax: | | | | | Procedures | [phone] | [phone] | | | | | CONSULT TO | Fax: | | | | | | HEMATOLOGY / | [phone] | | | | | | ONCOLOGY [...] | | | neoplasm of | MD [address] | | | | | | soft tissue | [address] | | | | | | of left | [address] | | | | | | lower | [place], [place] | | | | | | extremity | [address] | | | | | | (HCC) | Phone: | | | | | | Procedures | [phone] | | | | | | CT CHEST WO | Fax: | | | | | | CONTRAST | [phone] | | + +--------+ + + + [...] | | left | Torres | [address] [facility] | | | | | Sarcoma | [place] | [facility] | | | | | (HCC) L | Health | Rd | | | | | Foot Mass | Center | [place], [place] | | | | | (Sarcoma) | [address] | [address] | | | | | | [address] | Phone: | | | | | | Way | [phone] | | | | | | [place] | Fax: | | | | | | [place] [address] | [phone] | | | | | | Phone: | | | | | | | [phone] | | | | | | | Fax: | | | | | | | [phone] | | +--------+--------+ + + + + [...] | | | | Mailcode: CH12A | [place], [place] | ([facility]) (Primary Dx) | | | | [place] [facility] | [address] | | | | | and Healing | [phone] | | | | | [place], [place] | | | | | | [address] | | | | | | [phone] | | | +--------+---------+ + + + [...] has wound complications, she is returning to [place] multip le times until he gets fully [...] 2017 | | Oncology | [address] [facility] | | | | | | [place] [address] | | +--------+ + + + + | 04/24/ | Office | Hematology & | Annie Gannon, | | | 2017 | Visit | Oncology | [facility] [address] | | | | | | [address] | | | | | | [place], [place] | | | | | | [address] | | | | | | [phone] | | | | | | | | +--------+ + + + + | 04/24/ | Hospital | Adult Acute Care | Savanna Mari, | | | 2018 | Encounter | | [address] | | | | | | [place], [place] | | | | | | [address] | | | | | | [phone] | | | | | | | [...] Scott | | | | | | [place], [place] | | | | | | [address] | | | | | | [phone] | | | | | | | [...] Laboratory | + + + | | [facility] RADIOLOGY VOICE RECOGNITION 2 | [...] Note | + + | Service Account, Clickable Res In Interface - 01/23/2018 10:14 AM [...]
--- OUTSIDE RECORDS SUMMARY | ~2018-04-16 | XMS | Encounter Summary ---
Demographics + + + | Address | [address] [place] [address] | | | [place] [address] | + + + | Home Phone [...] Team Providers + +------+ + | Care Garbage Truck Dispatcher Name | Role | Phone | + [...] | | | | | [facility] | | | | | | [place], [place] | | | | | | [address] | | | +--------+ + + + [...] Hospital | | | | | | [place] [address] | | +--------+ + + + + | 04/24/ | Office | Hematology & | Annie Gannon, | | | 2017 | Visit | Oncology | [facility] [address] | | | | | | [address] | | | | | | [place], [place] | | | | | | [address] | | | | | | [phone] | | | | | | | | +--------+ + + + + | 04/24/ | Hospital | Adult Acute Care | Savanna Mari, | | | 2018 | Encounter | | [address] | | | | | | [place], [place] | | | | | | [address] | | | | | | [phone] | | | | | | | [...] Scott | | | | | | [facility], [place] | | | | | | [address] | | | | | | [phone] | | | | | | | | +--------+ + + + + as of this encounter Visit Diagnoses Not on filein this encounter"
--- OUTSIDE RECORDS SUMMARY | ~2018-04-16 | XMS | Encounter Summary ---
Demographics + + + | Address | [address] | | | [place] [address] | + + + | Home Phone [...] Team Providers + +------+ + | Care Syrup Maker Cook Name | Role | Phone | [...] | 04/09/ | Hospital | Hematology/Medical | Nurse, Hem Starter | | | 2018 | Encounter | Oncology at [facility] | [address] | | | | | [address] | [place] [address] | | | | | Mailcode: [facility] | | | | | | [facility] | | | | | | and [facility], | | | | | | [place], [place] | | | | | | [address] | | | | | | [phone] | | | +--------+ + + + [...] | | | | | ([facility]) | nausea/vomiting). | | | | [...] | | | | | ([facility]) | nausea/vomiting). | | | | [...] + + + +---------+ + + | POLYETHYLENE | Take 17 g by mouth | | | | | | GLYCOL [address] | once daily. Adjust | | | | | | | dose to effect. May | | | | | | | take up to 3 times | | | | | | | daily as needed for | | | | | | | constipation. | | | | | + + [...] + as of this encounter Progress Notes Vera [...] 2017 | | Oncology | [address] [facility] | | | | | | [place] [address] | | +--------+ + + + + | 04/24/ | Office | Hematology & | Annie Gannon, | | | 2017 | Visit | Oncology | [facility] [address] | | | | | | [facility] | | | | | | [place], [place] | | | | | | [address] | | | | | | [phone] | | | | | | | | +--------+ + + + + | 04/24/ | Hospital | Adult Acute Care | Savanna Mari, | | | 2017 | Encounter | | [address] | | | | | | [place], [place] | | | | | | [address] | | | | | | [phone] | | | | | | | [...] Scott | | | | | | [place], [place] | | | | | | [address] | | | | | | [phone] | | | | | | | | +--------+ + + + + as of this encounter Results CMP, POC (BMP+LFT) (04/09/2018 3:26 PM) + +---------+ + | Component | [...] + + | Blood | [facility] POINT OF CARE TESTS [address] [facility], [place] | | | [address] | + + + CBC+DIFF,POC (04/09/2018 3:14 PM) + + + + | Component [...] | + + + | Blood | [facility], POINT OF CARE TESTS [address] [place], [place] | | | [address] | + + + MAGNESIUM, PLASMA (04/09/2018 1:53 PM) + + + | Specimen | Performing Laboratory | + + + | Blood | | + + + + + | Narrative | + + | The following orders were created for panel order MAGNESIUM, PLASMA. | | Procedure | | Abnormality Status | | --------- | | ------ MAGNESIUM, | | PLASMA[[id number]] Normal Final | | result Please view results for these tests on the | | individual orders. | + + MAGNESIUM, PLASMA (04/09/2018 1:53 PM) + +-------+ + | Component | Value | Ref Range | + +-------+ + | MAGNESIUM,PLASMA | 2.0 | 1.6 - 2.6 mg/dL | + +-------+ + + + + | Specimen | Performing Laboratory | + + + | Blood | [facility], CORE [address] [facility] | | | [place] [address] | + + + + + | Narrative | + + | Reference range change effective 04/16/17. | + + URINE, MICROSCOPIC EXAM (04/09/2018 1:53 PM) + +---------+ + | Component | [...] | + + + | Urine | [facility], CORE [address] [facility] 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
--- OUTSIDE RECORDS SUMMARY | ~2018-04-16 | XMS | Encounter Summary ---
Demographics + + + | Address | [address] | | | [place] [address] | + + + | Home Phone [...] Providers + +------+ + | Care Supervisor Paint Name | Role | Phone | + [...] | 03/18/ | Telephone | Hematology/Medical | Sandar Patel MD | Lab Draw | | 2018 | | [facility] at [place] | [address] | | | | | for Health & Healing | [place], [place] | | | | | [address] | [address] | | | | | Mailcode: CH7 | [phone] | | | | | [facility] | | | | | | and , | | | | | | [place], [place] | | | | | | [address] | | | | | | [phone] | | | +--------+ + + + [...] Gasper | | | | | | [place] [address] | | +--------+ + + + + | 04/24/ | Office | Hematology & | Annie Gannon, | | | 2017 | Visit | Oncology | AGASHANAE,SIMONIZER [address] | | | | | | [address] | | | | | | [place], [place] | | | | | | [address] | | | | | | [phone] | | | | | | | | +--------+ + + + + | 04/24/ | Hospital | Adult Acute Care | Savanna Mari, | | | 2017 | Encounter | | MD [address] | | | | | | [place], [place] | | | | | | [address] | | | | | | [phone] | | | | | | | [...] Scott | | | | | | [facility] | | | | | | [address] | | | | | | [phone] | | | | | | | | +--------+ + + + + as of this encounter Visit Diagnoses Not on filein this encounter"
--- OUTSIDE RECORDS SUMMARY | ~2018-04-16 | XMS | Encounter Summary ---
Demographics + + + | Address | [address] | | | [place] [address] | + + + | Home Phone [...] Team Providers + +------+ + | Care Distillery Laborer Name | Role | Phone | + [...] | 2018 | on | [facility] at [facility] | | | | | | for Health & Healing | | | | | | [address] | | | | | | Mailcode: CH7M | | | | | | [facility] | | | | | | and , | | | | | | Floor [place], [place] | | | | | | [address] | | | | | | [phone] | | | +--------+ + + + [...] Jackman | | | | | | [place] [address] | | +--------+ + + + + | 04/24/ | Office | Hematology & | Annie Gannon, | | | 2017 | Visit | Oncology | [facility],DIRECTOR OF INDUSTRIAL RELATIONS [address] | | | | | | [address] | | | | | | [place], [place] | | | | | | [address] | | | | | | [phone] | | | | | | | | +--------+ + + + + | 04/24/ | Hospital | Adult Acute Care | Savanna Mari, | | | 2017 | Encounter | | MD [address] | | | | | | [place], [place] | | | | | | [address] | | | | | | [phone] | | | | | | | [...] Scott | | | | | | [place] | | | | | | [address] | | | | | | [phone] | | | | | | | | +--------+ + + + + as of this encounter Visit Diagnoses Not on filein this encounter"
--- OUTSIDE RECORDS SUMMARY | ~2018-04-16 | XMS | Encounter Summary ---
Demographics + + + | Address | [address] | | | [place] [address] | + + + | Home Phone [...] Providers + +------+ + | Care Senior Brand Manager Name | Role | Phone | [...] | | | 2017 | Event | [facility] | Kemar Rodgers CRNA | | | | | Admitting Desk | [address] [facility] | | | | | Located on the [facility] | [facility], | | | | | floor [address] [facility] [place] [address] | | | | | [facility] | [phone] | | | | | [place], [place] | | | | | | [address] | | | +--------+ + + + [...] Jackman | | | | | | [place] [address] | | +--------+ + + + + | 04/24/ | Office | Hematology & | Annie Gannon, | | | 2017 | Visit | Oncology | [facility] [address] | | | | | | [address] | | | | | | [place], [place] | | | | | | [address] | | | | | | [phone] | | | | | | | | +--------+ + + + + | 04/24/ | Hospital | Adult Acute Care | Savanna Mari, | | | 2017 | Encounter | | [address] | | | | | | [place], [place] | | | | | | [address] | | | | | | [phone] | | | | | | | [...] Scott | | | | | | [place], [place] | | | | | | [address] | | | | | | [phone] | | | | | | | [...]
--- OUTSIDE RECORDS SUMMARY | ~2018-04-16 | XMS | Encounter Summary ---
Demographics + + + | Address | [address] | | | [place] [address] | + + + | Home Phone [...] Providers + +------+ + | Care Director [employer] Name | Role | Phone | + [...] | | | | | [facility] | | | | | | [place], [place] | | | | | | [address] | | | +--------+ + + + [...] | | Oncology | [address] | | | | | | [place] [address] | | +--------+ + + + + | 04/24/ | Office | Hematology & | Annie Gannon, | | | 2018 | Visit | Oncology | [facility],BLOOD [facility] BLOOD BANK TECHNICIAN [address] | | | | | | [address] | | | | | | [place], [place] | | | | | | [address] | | | | | | [phone] | | | | | | | | +--------+ + + + + | 04/24/ | Hospital | Adult Acute Care | Savanna Mari, | | | 2017 | Encounter | | [address] | | | | | | [facility] [place] | | | | | | [address] | | | | | | [phone] | | | | | | | [...] Scott | | | | | | [facility], [place] | | | | | | [address] | | | | | | [phone] | | | | | | | | +--------+ + + + + as of this encounter Visit Diagnoses Not on filein this encounter"
--- OUTSIDE RECORDS SUMMARY | ~2018-04-16 | XMS | Encounter Summary ---
Demographics + + + | Address | [address] | | | [place] [address] | + + + | Home Phone [...] Providers + +------+ + | Care Housing Project Manager Name | Role | Phone [...] | | 2018 | | [facility] at [place] | [address] | Treatment Questions | | | | for Health & Healing | [place], [place] | | | | | [address] | [address] | | | | | Mailcode: [facility] | [phone] | | | | | [facility] | | | | | | and [facility] | | | | | | Floor [place], [place] | | | | | | [address] | | | | | | [phone] | | | +--------+ + + + [...] Jackman | | | | | | [place] [address] | | +--------+ + + + + | 04/24/ | Office | Hematology & | Annie Gannon, | | | 2017 | Visit | Oncology | AGACNP,STOCK FEEDER [address] | | | | | | [address] | | | | | | [place], [place] | | | | | | [address] | | | | | | [phone] | | | | | | | | +--------+ + + + + | 04/24/ | Hospital | Adult Acute Care | Savanna Mari, | | | 2017 | Encounter | | [address] | | | | | | [place], [place] | | | | | | [address] | | | | | | [phone] | | | | | | | [...] Scott | | | | | | [place], [place] | | | | | | [address] | | | | | | [phone] | | | | | | | | +--------+ + + + + as of this encounter Visit Diagnoses + + | Diagnosis | + + | Neutropenic fever (HCC) - Primary | + + | Neutropenia, unspecified | + +"
--- OUTSIDE RECORDS SUMMARY | ~2018-04-16 | XMS | Encounter Summary ---
Demographics + + + | Address | [address] | | | [place] [address] | + + + | Home Phone [...] Team Providers + +------+ + | Care Gluing Crew Leader Name | Role | Phone | + [...] | | | | | sarcoma | [address] | | | | | | ([facility]) | Ave | | | | | | Procedures | [place], [place] | | | | | | TRANSTHORACI | [address] | | | | | | C | Phone: | | | | | | ECHOCARDIOGR | [phone] | | | | | | AM WITH | Fax: | | | | | | STRAIN - | [phone] | | | | | | CARDIO [...] | 2018 | on | Oncology at [place] | [address] | | | | | for Health & Healing | [place], [place] | | | | | [address] | [address] | | | | | Mailcode: [facility] | [phone] | | | | | [facility] | | | | | | and Healing, | | | | | | Floor [place], [place] | | | | | | [address] | | | | | | [phone] | | | +--------+ + + + [...] Road | | | | | | [place] [address] | | +--------+ + + + + | 04/24/ | Office | Hematology & | Annie Gannon, | | | 2018 | Visit | Oncology | AGADEVYNP,ICT SUPPORT ENGINEER [address] | | | | | | [address] | | | | | | [facility], [place] | | | | | | [address] | | | | | | [phone] | | | | | | | | +--------+ + + + + | 04/24/ | Hospital | Adult Acute Care | Savanna Mari, | | | 2017 | Encounter | | [address] | | | | | | [place], [place] | | | | | | [address] | | | | | | [phone] | | | | | | | [...] [place] | | | | | | [address] | | | | | | [phone] | | | | | | | | +--------+ + + + + + +--------+ + + | Name | Priori | Associated Diagnoses | Order Schedule | | | ty | | | + +--------+ + + | TRANSTHORACIC ECHOCARDIOGRAM WITH | Routin | Synovial sarcoma | Ordered: 01/28/2018 | | STRAIN - CARDIO MECHANICS, ADULT [...] +--------+ + + + in this encounter Visit Diagnoses + + | Diagnosis | + + | Synovial sarcoma (HCC) - Primary | + + | 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
--- OUTSIDE RECORDS SUMMARY | ~2018-04-16 | XMS | Encounter Summary ---
Demographics + + + | Address | [address] | | | [place] [address] | + + + | Home Phone [...] Providers + +------+ + | Care Windows Laptop Technician Name | Role | Phone | [...] 04/09/ | Office | [facility] | Sb GallegosRegiotto, | Amputation stump | | 2018 | Visit | & Rehabilitation | [address] | infection (HCC) | | | | [address] | [address] | (Primary Dx) | | | | Mailcode: CH12A | [place], [place] | | | | | [facility] | [address] | | | | | and Healing | [phone] | | | | | [place], [place] | | | | | | [address] | | | | | | [phone] | | | +--------+---------+ + + + [...] return for surveillan ce after chemotherapy complete. in this encounter Plan of Treatment +--------+ + + + + | Date | Type | Specialty | Care Team | Description | +--------+ + + + + | 04/24/ | Appointment | Hematology & | Darwin Juan | | | 2017 | | Oncology | [address] | | | | | | [place] [address] | | +--------+ + + + + | 04/24/ | Office | Hematology & | Annie Gannon, | | | 2017 | Visit | Oncology | [facility] [address] | | | | | [address] | | | | | | [place], [place] | | | | | | [address] | | | | | | [phone] | | | | | | | | +--------+ + + + + | 04/24/ | Hospital | Adult Acute Care | Savanna Mari, | | | 2017 | Encounter | | [address] | | | | | | [place], [place] | | | | | | [address] | | | | | | [phone] | | | | | | | [...] [address] | | | | | | [place], [place] | | | | | | [address] | | | | | | [phone] | | | | | | | | +--------+ + + + + as of this encounter Visit Diagnoses + + | Diagnosis | + + | Amputation stump infection (HCC) - Primary | + + | Infection (chronic) of amputation stump | + +"
--- OUTSIDE RECORDS SUMMARY | ~2018-04-16 | XMS | Encounter Summary ---
Demographics + + + | Address | [address] | | | [place] [address] | + + + | Home Phone [...] Team Providers + +------+ + | Care Tube Washer Name | Role | Phone | [...] (nerve pain) | | 2017 | | [facility] [address] | [address] [facility] | | | | | [place] Mailcode: CH12A | [address] | | | | | [facility] | [place], [place] | | | | | and [facility] | [address] | | | | | Floor [place], [place] | [phone] | | | | | [address] | | | | | | [phone] | | | +--------+ + + + [...] Jackman | | | | | | [place] [address] | | +--------+ + + + + | 04/24/ | Office | Hematology & | Annie Gannon, | | | 2017 | Visit | Oncology | ROME,[address] | | | | | | [address] | | | | | | [place], [place] | | | | | | [address] | | | | | | [phone] | | | | | | | | +--------+ + + + + | 04/24/ | Hospital | Adult Acute Care | Savanna Mari, | | | 2017 | Encounter | | [address] | | | | | | [place], [place] | | | | | | [address] | | | | | | [phone] | | | | | | | [...] Scott | | | | | | [place] | | | | | | [address] | | | | | | [phone] | | | | | | | | +--------+ + + + + as of this encounter Visit Diagnoses Not on filein this encounter"
--- OUTSIDE RECORDS SUMMARY | ~2018-04-16 | XMS | Encounter Summary ---
Demographics + + + | Address | [address] | | | [place] [address] | + + + | Home Phone [...] Team Providers + +------+ + | Care Graphics Intern Name | Role | Phone | + [...] | | | | Mailcode: CH12A | [place], [place] | | | | | [facility] | [address] | | | | | and Healing | [phone] | | | | | [place], [place] | | | | | | [address] | | | | | | [phone] | | | +--------+---------+ + + + [...] Jackman | | | | | | [place] [address] | | +--------+ + + + + | 04/24/ | Office | Hematology & | Annie Gannon, | | | 2017 | Visit | Oncology | [address] | | | | | | [address] | | | | | | [place], [place] | | | | | | [address] | | | | | | [phone] | | | | | | | | +--------+ + + + + | 04/24/ | Hospital | Adult Acute Care | Savanna Mari, | | | 2017 | Encounter | | [address] | | | | | | [place], [place] | | | | | | [address] | | | | | | [phone] | | | | | | | [...] Scott | | | | | | [place], [place] | | | | | | [address] | | | | | | [phone] | | | | | | | | +--------+ + + + + as of this encounter Visit Diagnoses + + | Diagnosis | + + | Amputation stump infection (HCC) - Primary | + + | Infection (chronic) of amputation stump | + +"
--- OUTSIDE RECORDS SUMMARY | ~2018-04-16 | XMS | Encounter Summary ---
Demographics + + + | Address | [address] | | | [place] [address] | + + + | Home Phone [...] Team Providers + +------+ + | Care Lead Data Entry Operator Name | Role | Phone | [...] | | 2017 | | [facility]cology at [facility] | | | | | | for [facility] & Healing | | | | | | [address] | | | | | | Mailcode: CH7M | | | | | | [facility] | | | | | | and Healing, 7th | | | | | | Floor [place], [place] | | | | | | [address] | | | | | | [phone] | | | +--------+ + + + [...] Jackman | | | | | | [place] [address] | | +--------+ + + + + | 04/24/ | Office | Hematology & | Annie Gannon, | | | 2017 | Visit | Oncology | AGACNP,BOATHOUSE KEEPER [address] | | | | | | [address] | | | | | | [place], [place] | | | | | | [address] | | | | | | [phone] | | | | | | | | +--------+ + + + + | 04/24/ | Hospital | Adult Acute Care | Savanna Mari, | | | 2017 | Encounter | | MD [address] | | | | | | [place], [place] | | | | | | [address] | | | | | | [phone] | | | | | | | [...] [place] | | | | | | [address] | | | | | | [phone] | | | | | | | | +--------+ + + + + as of this encounter Visit Diagnoses Not on filein this encounter"
--- OUTSIDE RECORDS SUMMARY | ~2018-04-16 | XMS | Encounter Summary ---
Demographics + + + | Address | [address] | | | [place] [address] | + + + | Home Phone [...] Team Providers + +------+ + | Care Jailer/Training Officer Name | Role | Phone | + +------+ + | Santo Gooden MD | PCP | | + +------+ + Encounter Details +--------+ + + + + | Date | Type | Department | Care Team | Description | +--------+ + + + + | 02/06/ | Procedure | 6A Intra Op [facility] | | | | 2017 | Pass | [facility] | | | | | | Admitting Desk | | | | | | Located on the 9th | | | | | | floor [address] [facility] | | | | | | [facility] | | | | | | [place], [place] | | | | | | [address] | | | +--------+ + + + [...] System | | | | | | [place] [address] | | +--------+ + + + + | 04/24/ | Office | Hematology & | Annie Gannon, | | | 2018 | Visit | Oncology | [facility] [address] | | | | | | [address] | | | | | | [place], [place] | | | | | | [address] | | | | | | [phone] | | | | | | | | +--------+ + + + + | 04/24/ | Hospital | Adult Acute Care | Savanna Mari, | | | 2017 | Encounter | | [address] | | | | | | [place], [place] | | | | | | [address] | | | | | | [phone] | | | | | | | [...] Scott | | | | | | [place], [place] | | | | | | [address] | | | | | | [phone] | | | | | | | | +--------+ + + + + as of this encounter Visit Diagnoses Not on filein this encounter"
--- OUTSIDE RECORDS SUMMARY | ~2018-04-16 | XMS | Encounter Summary ---
Demographics + + + | Address | [address] | | | [place] [address] | + + + | Home Phone [...] Team Providers + +------+ + | Care Resource Engineer Name | Role | Phone | [...] Visit | Rehabilitation at | MD [address] [facility] | left leg (HCC) | | | | [facility] 12th Floor [address] [facility] [address] | (Primary Dx); Hx of | | | | [address] | [place], [place] | BKFranky left ([facility]); E | | | | [place] [facility] | [address] | coli infection; Long | | | | and Healing, | [phone] | term (current) use | | | | Floor [place], [place] | | of antibiotics | | | | [address] | | | | | | [phone] | | | +--------+---------+ + + + [...] presents for multi-D follow up with onc, [place], NIKITA. She state s she does not [...] cycles of adjuvant chemo 3. 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 12TH FLOOR [address] [place] [phone] Angely Stephen MD - 04/09/2018 3:00 PM [...] | | 2017 | | Oncology | [address] | | | | | | [place] [address] | | +--------+ + + + + | 04/24/ | Office | Hematology & | Annie Gannon, | | | 2017 | Visit | Oncology | AGADEVYNP,DISTILLERY WORKER GENERAL [address] | | | | | | [address] | | | | | | [place], [place] | | | | | | [address] | | | | | | [phone] | | | | | | | | +--------+ + + + + | 04/24/ | Hospital | Adult Acute Care | Savanna Mari, | | | 2017 | Encounter | | MD [address] | | | | | | [place], [place] | | | | | | [address] | | | | | | [phone] | | | | | | | [...] Scott | | | | | | [place], [place] | | | | | | [address] | | | | | | [phone] | | | | | | | [...] coli (E. 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
--- OUTSIDE RECORDS SUMMARY | ~2018-04-16 | XMS | Encounter Summary ---
Demographics + + + | Address | [address] | | | [place] [address] | + + + | Home Phone [...] Team Providers + +------+ + | Care Cryptologic Support Specialist Name | Role | Phone [...] | | | | | lower | [place], [place] | [place] | | | | | extremity | [address] | [address] | | | | | Unspecified | Phone: | Phone: | | | | | open wound, | [phone] | [phone] | | | | | left knee, | Fax: | Fax: | | | | | initial | [phone] | [phone] | | | | | encounter | | | | | | | Procedures | | | | | | | REQUEST TO | | | | | | | SURGERY | | | | | | | DOOR HANGER | | | | | | | AL CLEANSING | | | | | | | OF | | | | | | | TISSUE/MUSCL | | | | | | | E AL LADONNA | | | | | | | MUSC/FASCIA | | | | | | | ADD-ON AL | | | | | | | CLEANSING | | | | | | | TISSUE/MUSCL | | | | | | | E/BONE AL | | | | | | | LADONNA BONE | | | | | | | ADD-ON AL | | | | | | | RE-AMPUTATIO | | | | | | | N LOWER LEG | | | | | | | AL NEG | | | | | | | PRESS WOUND | | | | | | | TX, <= 50 CM | | | | | | | AL NEG | | | | | | | PRESS WOUND | | | | | | | TX, > 50 CM | | | | | | | AL NEG | | | | | | | PRESS WOUND | | | | | | | TX, =< 50 | | | | | | | SQCM AL NEG | | | | | | [...] + + + + | 03/24/ | Back Up Scan Coordinator | Orthopaedics at | Lynda Basurto, | Amputation stump | | 2018 | | [facility] [address] | [address] | infection (HCC) | | | | Ave Mailcode: CH12A | [address] | (Primary Dx) | | | | [place] [facility] | [place], [place] | | | | | and [facility], | [address] | | | | | [place], [place] | [phone] | | | | | [address] | | | | | | [phone] | | | +--------+ + + + [...] 2018 | | Oncology | [address] [facility] | | | | | | [place] [address] | | +--------+ + + + + | 04/24/ | Office | Hematology & | Annie Gannon, | | | 2018 | Visit | Oncology | AGADEVYNP,CELL REPAIRER [address] | | | | | | [address] | | | | | | [place], [place] | | | | | | [address] | | | | | | [phone] | | | | | | | | +--------+ + + + + | 04/24/ | Hospital | Adult Acute Care | Savanna Mari, | | | 2017 | Encounter | | [address] | | | | | | [place], [place] | | | | | | [address] | | | | | | [phone] | | | | | | | [...] Scott | | | | | | [place], [place] | | | | | | [address] | | | | | | [phone] | | | | | | | | +--------+ + + + + as of this encounter Visit Diagnoses + + | Diagnosis | + + | Amputation stump infection (HCC) - Primary | + + | Infection (chronic) of amputation stump | + +"
--- OUTSIDE RECORDS SUMMARY | ~2018-04-16 | XMS | Encounter Summary ---
Demographics + + + | Address | [address] | | | [place] [address] | + + + | Home Phone [...] Author + + + | Author | [facility] | + + + | Organization | [facility] | + + + | Address | Unknown | + + + | Phone | Unavailable | + + + Support + + +---------+ + | Name | Relationship | Address | Phone | + + +---------+ + | ROSE BOWENS | ECON | Unknown | | + + +---------+ + Care Team Providers + +------+ + | Care Telex Operator Name | Role | Phone | [...] | | | | | sarcoma | [address] | | | | | | ([facility]) | Ave | | | | | | Procedures | [place], [place] | | | | | | TRANSTHORACI | [address] | | | | | | C | Phone: | | | | | | ECHOCARDIOGR | [phone] | | | | | | AM, ADULT | Fax: | | | | | | | [phone] | | + +--------+ + + + + Encounter Details +--------+ + + + + | Date | Type | Department | Care Team | Description | +--------+ + + + + | 01/31/ | Key Worker | Hematology/Medical | Sandra Patel MD | 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[place] | [address] | ([facility]) (Primary Dx) | | | | for Health & Healing | [place], [place] | | | | | [address] | [address] | | | | | Mailcode: [facility] | [phone] | | | | | [facility] | | | | | | and Healing, [facility] | | | | | | [place], [place] | | | | | | [address] | | | | | | [phone] | | | +--------+ + + + [...] | | Oncology | [address] [facility] | | | | | | [place] [address] | | +--------+ + + + + | 04/24/ | Office | Hematology & | Annie Gannon, | | | 2017 | Visit | Oncology | ROME,INSULATOR CUTTER AND FORMER [address] | | | | | | [address] | | | | | | [place], [place] | | | | | | [address] | | | | | | [phone] | | | | | | | | +--------+ + + + + | 04/24/ | Hospital | Adult Acute Care | Savanna Mari, | | | 2017 | Encounter | | [address] | | | | | | [place], [place] | | | | | | [address] | | | | | | [phone] | | | | | | | [...] Scott | | | | | | [place], [place] | | | | | | [address] | | | | | | [phone] | | | | | | | [...]
--- OUTSIDE RECORDS SUMMARY | ~2018-04-16 | XMS | Clinical Summary ---
Demographics + + + | Address | [address] | | | [place] [address] | + + + | Home Phone [...] Team Providers + +------+ + | Care Coding Educator Name | Role | Phone | + +------+ + | Santo Gooden MD | PP | | + +------+ + Source Comments LUIS is fully live on both [facility] Ambulatory and [facility] InPatient.[facility] Allergies + + + + + + [...] | | | | | | ([facility]LY [facility]) | and do not combine | | [...] | + + + | Osteomyelitis ([facility]) | 03/31/2018 | + + + | Thrombocytopenia ([facility]) | 03/25/2018 | + + + | Neutropenic fever ([facility]) | 03/23/2018 | + + + | Hx of BKA, 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 | | [...] | | 04/04/18 a | | | [place] | | | Infusion | | | [...] | | | [facility] | | | [phone] | | | 4 HemOnc | | | 04/09/2018 | | | 3:10 PM | | | Sandra E | | | Jorge | | | Hematology/ | | | Medical | | | Oncology at | | | Center for | | | Health & | | | Healing | | | [phone] | | | 4 [place] | | [...] | | | obeseSkin: | | | [place], warm, | | | | | | [...] | | | original.[place] | | | [facility] | | | & Science | | [...] | | | s | | | [id number] | | | 2 Printed | | [...] | | | paging | | | framing mill operator helper | | | at | | | [phone] | | | 1and ask | | | for operation agent | | | doctor for | | [...] | | | [facility] | | | [phone] | | | 4 HemOnc | | | 04/02/2018 | | | 3:00 PM | | | Gallegos-Cheen | | | Doung [facility] | | | Orthopaedic | | | s & | | | Rehabilitat | | | ion | | | [phone] | | | 8 [place] | | [...] | | Phone #: | | | [phone] | | | 0 | | | [...] | Visit | | MD | ([facility]) (Primary Dx) | +--------+ +---+ + + | 03/12/ | Office | | Annie Gannon, | 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 | | AGACNP,BUSINESS PROCESS ENGINEER | ([facility]LY [facility]) (Primary Dx) | +--------+ +---+ + + [...] | | | original.Or | | | [facility] | | | & Science | | [...] | | | paging | | | framing mill operator helper | | | at | | | [phone] | | | 1and ask | | | for operation agent | | | doctor for | | [...] | | | [facility] | | | [phone] | | | 4 HemOnc | | | 03/12/2018 | | | 9:30 AM | | | Allean C | | | Jagdeep | | | Hematology/ | | | Medical | | | Oncology at | | | Center for | | | Health & | | | Healing | | | [phone] | | | 4 HemOnc | | [...] | | | Fellow | | | [id number] | +---+ + +--------+ +---+ + + | 02/19/ | Office | | Sandra Patel MD | 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 | | | ([facility]) (Primary Dx) | +--------+ +---+ + + | 02/19/ | Office | | Macie Coats, | 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 | | | ([facility]) (Primary Dx); | | | | | [...] | | | GrayMRN: | | | [id number] | | | : | | | [id number] | | | dmission | | | [...] | | first at | | | [phone] | | | 0. Activity | | [...] | | | ion | | | [phone] | | | 8 [place] | | [...] | | | call:- | | | [phone] | | | 00 during | | | business | | | hours | | | (8:00am - | | | 4:30pm); - | | | [phone] | | | 11 if after | [...] | | someone to | | | sheepskin pickler | | | your | | | [...] | | | Rehabilitat | | | [id number] | | | [address] | | | [place]y | | | RoadMail | | | Code: | | | [id number] | | | d [place] | | | [phone] | | | [phone] | | | [...] | Visit | | MD | ([facility]) (Primary Dx) | +--------+ +---+ + + | 02/05/ | Presiding Judge | | Fabio Blackmon | Preop examination | | 2017 | | | MD uSe | (Primary Dx) | +--------+ +---+ + [...] | +--------+ +---+ + + 01/31/ | Presiding Judge | | Sandra Patel MD | Synovial sarcoma | | 2017 | | | | ([facility]) (Primary Dx) | +--------+ +---+ + + [...] | 2017 | | | | ([facility]) | +--------+ +---+ + 01/23/ | Office | | Sandra Patel MD | 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 | | | ([facility]) (Primary Dx) | +--------+ +---+ + 01/23/ [...] [address] | | | | | | [place] [address] | | +--------+ + + + + | 04/24/ | Office | | Annie Gannon, | | | 2017 | Visit | | ROME,BUSINESS PROCESS ENGINEER [address] | | | | | | [address] | | | | | | [place], [place] | | | | | | [address] | | | | | | [phone] | | | | | | | | +--------+ + + + + | 04/24/ | Hospital | | Savanna Mari, | | | 2017 | Encounter | | MD [address] | | | | | | [place], [place] | | | | | | [address] | | | | | | [phone] | | | | | | | | +--------+ + + + + | 05/15/ | Appointment | | | | | 2017 | | | | | +--------+ + + + + | 05/15/ | Office | | Sandra Patel MD | | | 2017 | Visit | | [address] | | | | | | [place], [place] | | | | | | [address] | | | | | | [phone] | | | | | | | [...] Right: | BARD | | 03/29/ | [id number] | | Plastic 10fr 2 Lumen | | Chest | | | 2020 | 0 / | | Attachable Catheter Peel | | | | | | /[id number] | | Apart Percutaneous - | | | | | | 465 | | [id number]: Qty: 1 on | | | | [...] | + +--------+ + + + | NH NEEDLE | Routin | 01/15/2018 | Mass [...] | + + + | Blood | [facility], POINT OF CARE TESTS [address] [facility], [place] | | | [address] | + + + CBC WITH AUTO [...] | + + + | Blood | [facility], POINT OF CARE TESTS [address] [facility], [place] | | | [address] | + + + MAGNESIUM, PLASMA (04/09/2018 [...] --------- | | ------ MAGNESIUM, | | PLASMA[[id number]] Normal Final | | result Please view [...] | + + + | Urine | [facility], CORE [address] | | | [place] [address] | + + + PHOSPHORUS, PLASMA (04/09/2018 [...] | + + + | Blood | [facility], CORE [address] | | | [place] [address] | + + + MAGNESIUM, PLASMA (04/09/2018 [...] | + + + | Blood | [facility], CORE [address] | | | [place] [address] | + + + + + | [...] | >60 | >60 mL/min | | VINCENTIAN | | | + +---------+ + | EGFR NON | >60 | >60 mL/min | | -VINCENTIAN | | | + +---------+ + | [...] | + + + | Blood | [facility], CORE [address] [place] [address] | | | [place] [address] | + + + + + | [...] | + + + | Blood | [facility], CORE [address] [place] [address] | | | [place] [address] | + + + RBC MORPHOLOGY (04/01/2018 4:40 AM)Only the most recent of 8 results within the time perio d is included. + + + + | Component | Value | Ref Range | + + + + | ANISOCYTOSIS | 1+(10-25cells/HPF) | | + + + + + + + | Specimen | Performing Laboratory | + + + | Blood | [facility], CORE [address] | | | [place] [address] | + + + CBC AND AUTO [...] | + + + | Blood | [facility], CORE [address] | | | [place] [address] | + + + + + | [...] | + + + | Blood | [facility], CORE [address] | | | [place] [address] | + + + + + | [...] | ------ CBC AND AUTO | | DIFF[[id number]] Abnormal Final | | result MANUAL | | DIFFERENTIAL[[id number]] Abnormal Final | | result RBC | | MORPHOLOGY[[id number]] | | Final result Please view results [...] --------- | | ------ RETICULOCYTE | | COUNT[[id number]] Abnormal Final | | result Please view [...] The patient has | | a left ksdeq-dmx-lxui amputation. A surgical drain is present at [...] administered. FINDINGS: The patient has a left epfzw-kyt-fbgq amputation. A surgical | | drain is [...] | + + + | Blood | [facility], CORE [address] [facility] [address] | | | [place] [address] | + + + + + | [...] | | ------ CBC (HEMOGRAM) | | ONLY[[id number]] Abnormal Final | | result Please view [...] | + + + | Blood | [facility], TRANSFUSION MEDICINE [address] | | | [place] [address] | + + + CRISTIANO IGG (03/31/2018 11:33 AM) + + + + | Component | Value | Ref Range | + + + + | BRIE, IGG | Negative | | + + + + + + + | Specimen | Performing Laboratory | + + + | Blood | [facility], TRANSFUSION MEDICINE [address] [facility] | | | [place] [address] | + + + COMPLETE METABOLIC SET [...] | >60 | >60 mL/min | | VINCENTIAN | | | + +---------+ + | EGFR NON | >60 | >60 mL/min | | -VINCENTIAN | | | + +---------+ + | [...] | + + + | Blood | [facility], CORE [address] | | | [place], [place] [address] | + + + + + | [...] | + + + | Blood | [facility], CORE [address] | | | [place] [address] | + + + + + | [...] | + + + | Blood | [facility], CORE [address] | | | [place] [address] | + + + LDH TOTAL, PLASMA [...] | + + + | Blood | [facility], CORE [address] | | | [place] [address] | + + + PRODUCT - RED [...] + + | PRODUCT UNIT # | [id number] | | + + + + | UNIT ABO | A | | + + + + | UNIT RH | POS | | + + + + | STATUS OF UNIT | Presumed Transfused | | + + + + | EXPIRATION DATE | [id number] | | + + + + | BLOOD TYPE BARCODE | 6200 | | + + + + | BLOOD PRODUCT CODE | [id number] | | + + + + + + + | Specimen | Performing Laboratory | + + + | | [facility], TRANSFUSION MEDICINE [address] [facility] | | | [place] [address] | + + + HANNAH, ADD ON [...] | | ------ DIFFERENTIAL, | | ADD ON[[id number]] Final | | result MANUAL | | DIFFERENTIAL[[id number]] Abnormal Final | | result Please view results for these tests on the | | individual orders. | + + DIFFERENTIAL, ADD ON (03/31/2018 4:53 AM) + + + | Specimen | Performing Laboratory | + + + | Blood | [facility], CORE [address] | | | [place] [address] | + + + + + | [...] | + + + | Blood | [facility], CORE [address] | | | [place] [address] | + + + CAPILLARY BLOOD GLUCOSE [...] + + + | | [facility] [place], POINT OF CARE TESTS [address] | | | [place] [address] | + + + ANTIBODY SCREEN (03/29/2018 [...] | + + + | Blood | [facility], TRANSFUSION MEDICINE [address] [place] [address] | | | [place] [address] | + + + TYPE AND SCREEN [...] | ------ ABO & RH | | TYPE[[id number]] F | | inal result ANTIBODY | | SCREEN[[id number]] Fin | | al result Please view [...] | + + + | Blood | [facility], TRANSFUSION MEDICINE [address] [facility] | | | [place] [address] | + + + VANCOMYCIN, TROUGH (03/29/2018 [...] | + + + | Blood | [facility], CORE [address] | | | [place] [address] | + + + + + | Narrative | + + | Please draw vancomycin trough prior to the morning dose, level ordered for 03/29 | + + OPERATION RECORD (03/27/2018 12:10 PM) + + | Procedure Note | + + | Lynda Basurto MD - 03/27/2018 12:10 PM PDT Date of Service: 03/27/2018 | | Attending Surgeon: Lynda Basurto MD Bias Cutting Machine Operator Vertical(s): Odalys | | Mike Tobin PA-C. Please note no other qualified assistant plant control operator was available. | | Preoperative Diagnosis: Infected [...] closure of the fascia. This was a 10-Chinese | | channel drain. Please note, the [...] 03/27/2018 | | 11:18:37DT: 03/27/2018 12:10:06Job #: [id number] | + + PROCEDURE NOTE (03/27/2018 11:37 [...] + + | Tissue - Leg | [place] [facility] [place] [address] [place], [place] | | | [address] | + + + + + | [...] Torre MD 03/24/2018 1:49 PM [facility] | | DEPARTMENT OF ORTHOPAEDICS & REHABILITATION OPERATIVE REPORT | | Patient Name: Annika | Minerva Cage Date of : 1985 Contract | | Serial Number:: [id number] Report Author: MACIE TORRE MD Procedure Date: | | 03/24/2018 Attending Physician: 1. MACIE TORRE MD Bias Cutting Machine Operator Vertical(s): | | 1. Bartolo Dumont MD Preoperative [...] muscle and fascia. Wound size | | [id number] after tacking back fascia Application of VAC [...] | | sponge in the remaining wound [id number]. Excellent seal was attained. The | | [...] discharge: plan for return to [place] on [facility] MACIE TORRE MD 03/24/2018, | | [...] characteristics determined | | | | by Mophie. It has not been | | | [...] + + | Tissue - Leg | [facility] DEPARTMENT OF PATHOLOGY [address] [place] [address] RD | | | [place] [address] | + + + PRODUCT - PLATELET [...] + + | PRODUCT UNIT # | [id number] | | + + + + | UNIT ABO | A | | + + + + | UNIT RH | NEG | | + + + + | STATUS OF UNIT | Presumed Transfused | | + + + + | EXPIRATION DATE | [id number] | | + + + + | BLOOD TYPE BARCODE | 0600 | | + + + + | BLOOD PRODUCT CODE | [id number] | | + + + + + + + | Specimen | Performing Laboratory | + + + | | [facility], TRANSFUSION MEDICINE [address] | | | [place] [address] | + + + CARDIOLOGY (03/24/2018)Only the [...] | + + + | Blood | [facility], CORE [address] [facility] [facility] | | | [place] [address] | + + + + + | [...] | + + + | Blood | [facility], CORE [address] | | | [place] [address] | + + + + + | [...] | + + + | Blood | [facility], CORE [address] [place] [address] | | | [place] [address] | + + + + + | [...] | + + + | Blood | [facility], CORE [address] | | | [place] [address] | + + + CULTURE, BLOOD BACTI [...] ------ CULTURE, BLOOD | | BACTI & Y...[[id number]] Final | | result Please view results for these tests on the | | individual orders. | + + X-RAY KNEE 2 VIEWS LEFT (03/23/2018 3:55 PM) + + + | Specimen | Performing Laboratory | + + + | | [facility] RADIOLOGY VOICE RECOGNITION 2 | + [...] Note | + + | Service Account, [employer] Res In Interface - 03/13/2018 12:35 PM [...] Laboratory | + + + | | [facility] [address] [place] [address] | | | [place] [address] | + + + HSR PROCESS ONLY (02/10/2018 10:45 AM) + + + | Specimen | Performing Laboratory | + + + | Slide-Block | [facility] [employer] [facility] [address] | | | [address] [place] [address] | + + + TRANSTHORACIC ECHOCARDIOGRAM, ADULT [...] Laboratory | + + + | | [facility] DEPT OF CARDIOLOGY [address] [place] [address] | | | [place] [address] | + + + + + | Narrative | + + | [facility] Adult Echocardiography Laboratory | | [facility] [place], [place] [address] Ph: | | Pt Name: ANNIKA CAGE Study | | Date/Time 02/09/2018 / 11:45:04 AM | | Most recent prior: - Acc #: [id number] No. previous echos: 0 | | : 1985 32 years Heart Rate: 78 bpm Height: 68.0 | | in Blood Pressure: 121/61 mm/Hg Weight: 308.0 | | lb Gender: F BSA: 2.46 | | m2 Order ID: [id number] Wagon Drill Operator: | | John Gonzalez MA, [facility] Wagon Drill Operator 2: Referring Provider: Lynda Yanez | | [...] and indexed values Report electronically signed by: [id number] Justin | | Malachi DIAS (02/09/2018, 3:09:17 PM) Final | + + + + | Procedure Note | + + | Interface, Ecg Results - 02/09/2018 3:09 PM [facility] [employer] | | [facility] Echocardiography Laboratory [address] [place] [address] | | [place], [place] [address] Pt Name: ANNIKA BORDEN | | CAGE Study Date/Time 02/09/2018 / 11:45:04 AMMRN: [id number] Most | | recent prior: -Acc #: [id number] No. previous echos: 0DOB: 1985 32 | | years Heart Rate: 78 bpmHeight: 68.0 in Blood Pressure: 121/61 | | mm/HgWeight: 308.0 lb Gender: FBSA: 2.46 m2 | | Order ID: [id number] Wagon Drill Operator: John Gonzalez MA, RDCSSonographer | | 2:Referring [...] values Report | | electronically signed by: [id number] Justin Ly MD (02/09/2018, 3:09:17 PM) | [...] | | | |Report electronically signed by: [id number] Justin Ly MD (02/09/2018, 3:09:17 | |PM) | | | | | | | | Final | + + X-RAY TIBIA & FIBULA 2 VIEWS LT (02/07/2018 8:57 AM) + + + | Specimen | Performing Laboratory | + + + | | [facility] RADIOLOGY VOICE RECOGNITION 2 | + [...] | | Attending Surgeon: Lynda Basurto MD Bias Cutting Machine Operator Vertical(s): Stephany | | Mike Flores MD. Preoperative [...] | DARIUS/MODIRVIND: 02/06/2018 15:36:23DT: 02/06/2018 19:40:30Job #: [id number] | + + ANE EPIDURAL (02/06/2018 7:15 [...] Laboratory | + + + | | [facility] RADIOLOGY VOICE RECOGNITION 2 | + + + + + | Narrative | + + | EXAM: NH CHEST 1 VIEW HISTORY: s/p port placement [...] Interface - 02/06/2018 5:11 PM PDT EXAM: [place] CHEST 1 | | VIEW HISTORY: s/p [...] | + + + | Blood | [facility], TRANSFUSION MEDICINE [address] [facility] | | | [place] [address] | + + + INTRAPROCEDURE IMAGING (02/06/2018 [...] | + + + | Blood | [facility], [facility] + HEALING [address] | | | [place] [address] | + + + [facility] - CBC [...] | ------ CBC AND AUTO | | DIFF[[id number]] Abnormal Final | | result Please view [...] | + + + | Blood | [facility], CORE [address] [facility] | | | [place] [address] | + + + + + | [...] Note | + + | Service Account, [employer] In Interface - 01/23/2018 10:14 AM PDT [...] | + + + | Slide-Block | [facility] [employer] [address] | | [address] [place] [address] | + + + FISH, MOLECULAR PROBE, FFPE (01/15/2018 11:45 AM) + + + + | Component | Value | Ref Range | + + + + | DISCLAIMER | This test was developed and its performance | | | | characteristics determined by the [facility] | | | | [facility]. It has | | | [...] 1988 | | | | (CLIA). The [facility] | | | | Laboratories are fully licensed by the | | | | state of [place] under CLIA and are | | | | accredited by the [employer] | | | | Pathologists (CAP). Laboratory | | | | Director: Kemar Kramer M.D., | | | | Ph.D Electronically reviewed and signed | | | | by:Justin Lu, PhD, [facility] | | | | Director Financial Systems Clinical Molecular | | | | Geneticist01/23/2018 at 1:21 PM Reviewed | | | | and electronically signed by JAMARI | | | | MD CLAIRE,FACMG01/23/2018 5:14 PM | | + + + + + + + | Specimen | Performing Laboratory | + + + | Muscle - Slide-Block | [facility] [employer] [place] [address] [address] | | [address] [place] [address] | + + + MORE COMMON INDIVIDUAL [...] | | | | cells had a [id number] split signal | | | | pattern [...] by the clinical | | | | all round butcher. | | + + + + | CELLS SCORED SMITH | 100 | | | SS18 (18Q11.2) | | | | BREAK-APART | | | + + + + + + + | Specimen | Performing Laboratory | + + + | Muscle - Slide-Block | [facility] [address] | | | [address] [place] [address] | + + + from Last 3 [...] | PPO | [phone] | [address] [address] [place] | | | CROSS | | | [address] | [place] [address] | | | FEDER[place] | | | | | | | L | | | | | + +--------+ +--------+ + + | [facility] | | [phone] | Agency | [...] | Self | [birth year] | Home: | [address] | | | al/Fam | | 1985 | [phone] | [place] [address] | | | emerita | | | [address] | | + +--------+ +--------+ + +
--- OUTSIDE RECORDS SUMMARY | ~2018-04-16 | XMS | Encounter Summary ---
Demographics + + + | Address | [address] | | | [place] [address] | + + + | Home Phone [...] Team Providers + +------+ + | Care Patternmaker Metal Bench Name | Role | Phone | + [...] | | 2018 | | & Rehabilitation | [address] | Specialist | | | | [address] | [address] | | | | | Mailcode: CH12A | [place], [place] | | | | | [facility] | [address] | | | | | and Healing | [phone] | | | | | [place], [place] | | | | | | [address] | | | | | | [phone] | | | +--------+ + + + [...] | | Oncology | [address] | | | | | | [place] [address] | | +--------+ + + + + | 04/24/ | Office | Hematology & | Annie Gannon, | | | 2017 | Visit | Oncology | ROME,CLERK SECRETARY [address] | | | | | [address] | | | | | | [place], [place] | | | | | | [address] | | | | | | [phone] | | | | | | | | +--------+ + + + + | 04/24/ | Hospital | Adult Acute Care | Savanna Mari, | | | 2017 | Encounter | | [address] | | | | | | [place], [place] | | | | | | [address] | | | | | | [phone] | | | | | | | [...] [address] | | | | | | [place] | | | | | | [address] | | | | | | [phone] | | | | | | | | +--------+ + + + + as of this encounter Visit Diagnoses Not on filein this encounter"
--- OUTSIDE RECORDS SUMMARY | ~2018-04-16 | XMS | Encounter Summary ---
Demographics + + + | Address | [address] | | | [place] [address] | + + + | Home Phone [...] Providers + +------+ + | Care Personal Care Aid Name | Role | Phone | [...] | | | 2018 | Event | [facility] | MD Sue [address] | | | | | Admitting Desk | [facility] | | | | | Located on the | [place], [place] | | | | | floor [address] [facility] | [address] | | | | | [facility] | [phone] | | | | | [place], [place] | | | | | | [address] | | | +--------+ + + + [...] IV | 2100; Site problems (painful) | BELT POLISHER | | +--------+ + + + | [...] [address] | | | | | | [place] [address] | | +--------+ + + + + | 04/24/ | Office | Hematology & | Annie Gannon, | | | 2017 | Visit | Oncology | AGASHANAE,CONTINUITY CLERK [address] | | | | | | [address] | | | | | | [place], [place] | | | | | | [address] | | | | | | [phone] | | | | | | | | +--------+ + + + + | 04/24/ | Hospital | Adult Acute Care | Savanna Mari, | | | 2017 | Encounter | | [address] | | | | | | [place], [place] | | | | | | [address] | | | | | | [phone] | | | | | | | [...] [address] | | | | | | [place], [place] | | | | | | [address] | | | | | | [phone] | | | | | | | [...] 12:40 | | | | | Starting [facility] 02/06/18 at 1215, | anesthes | PDT [...]
--- OUTSIDE RECORDS SUMMARY | ~2018-04-16 | XMS | Encounter Summary ---
Demographics + + + | Address | [address] | | | [place] [address] | + + + | Home Phone [...] Team Providers + +------+ + | Care Coupon Collection Clerk Name | Role | Phone | [...] | Synovial | Sandra Schmitt MD | [facility] [address] | | | | | sarcoma | [address] | [address] | | | | | ([facility]) | Ave | Mailcode: | | | | | Procedures | [facility] [place] | [address] | | | | | TRANSTHORACI | [address] | for Health | | | | | C | Phone: | and Healing | | | | | ECHOCARDIOGR | [phone] | [facility] [place] | | | | | AM WITH | Fax: | [address] | | | | | STRAIN - | [phone] | Phone: | | | | | CARDIO | | [phone] | | | | | MECHANICS, | [...] | | 2017 | | Oncology at [place] | [address] | | | | | for Health & Healing | [place], [place] | | | | | [address] | [address] | | | | | Mailcode: CH7M | [phone] | | | | | [facility] | | | | | | and | | | | | | Floor [place], [place] | | | | | | [address] | | | | | | [phone] | | | +--------+ + + + [...] | Nurse Hem Starter | | | 2018 | | Oncology | [address] | | | | | | [place] [address] | | +--------+ + + + + | 04/24/ | Office | Hematology & | Annie Gannon, | | | 2017 | Visit | Oncology | ROME,THREAD CHECKER [address] | | | | | [address] | | | | | | [place], [place] | | | | | | [address] | | | | | | [phone] | | | | | | | | +--------+ + + + + | 04/24/ | Hospital | Adult Acute Care | Savanna Mari, | | | 2017 | Encounter | | [address] | | | | | | [place], [place] | | | | | | [address] | | | | | | [phone] | | | | | | | [...] Scott | | | | | | [place], [place] | | | | | | [address] | | | | | | [phone] | | | | | | | | +--------+ + + + + + +--------+ + + | Name | Priori | Associated Diagnoses | Order Schedule | | | ty | | | + +--------+ + + | TRANSTHORACIC ECHOCARDIOGRAM WITH | Urgent | Synovial sarcoma | Ordered: 02/03/2018 | | STRAIN - CARDIO MECHANICS, ADULT | | ([facility]) | | + +--------+ + + as of this encounter Visit Diagnoses + + | Diagnosis | + + | Synovial sarcoma (HCC) - Primary | + + | 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
--- OUTSIDE RECORDS SUMMARY | ~2018-04-16 | XMS | Encounter Summary ---
Demographics + + + | Address | [address] | | | [place] [address] | + + + | Home Phone [...] Team Providers + +------+ + | Care Casing In Line Setter Name | Role | Phone | + +------+ + | Santo Gooden MD | PCP | | + +------+ + Encounter Details +--------+ + + + + | Date | Type | Department | Care Team | Description | +--------+ + + + + | 02/05/ | Boat Master | LAB CORE [address] | Fabio Blackmon | Preop examination | | 2018 | | Federico Rogers MD [address] | (Primary Dx) | | | | Road [place], [place] | [address] | | | | | [address] | [place], [place] | | | | | [phone] | [address] | | | | | | [phone] | | | | | | | [...] Center | | | | | | [place] [address] | | +--------+ + + + + | 04/24/ | Office | Hematology & | Annie Gannon, | | | 2017 | Visit | Oncology | AGASHANAE,DIRECTOR OF PRODUCT DEVELOPMENT [address] | | | | | | [address] | | | | | | [place], [place] | | | | | | [address] | | | | | | [phone] | | | | | | | | +--------+ + + + + | 04/24/ | Hospital | Adult Acute Care | Savanna Mari, | | | 2017 | Encounter | | [address] | | | | | | [place], [place] | | | | | | [address] | | | | | | [phone] | | | | | | | [...] Scott | | | | | | [facility], [place] | | | | | | [address] | | | | | | [phone] | | | | | | | | +--------+ + + + + as of this encounter Results CONFIRMATORY ABO/RH (02/06/2018 11:06 AM) + + + + | Component | Value | Ref Range | + + + + | ABO Group | A | | + + + + | Rh Type | Positive | | + + + + + + + | Specimen | Performing Laboratory | + + + | Blood | [facility] TRANSFUSION MEDICINE [address] | | | [place] [address] | + + + in this encounter Visit Diagnoses + + | Diagnosis | + + | Preop examination - Primary | + + | Preoperative examination, unspecified | + +"
--- OUTSIDE RECORDS SUMMARY | ~2018-04-16 | XMS | Encounter Summary ---
Demographics + + + | Address | [address] | | | [place] [address] | + + + | Home Phone [...] Team Providers + +------+ + | Care Facing Cutting Machine Operator Name | Role | [...] | | 2017 | | Oncology at [place] | | | | | | for Health & Healing | | | | | | [address] | | | | | | Mailcode: CH7M | | | | | | [facility] | | | | | | and Healing, 7th | | | | | | Floor [place], [place] | | | | | | [address] | | | | | | [phone] | | | +--------+ + + + [...] Jackman | | | | | | [place] [address] | | +--------+ + + + + | 04/24/ | Office | Hematology & | Annie Gannon, | | | 2017 | Visit | Oncology | AGACNP,LACQUER MACHINE FEEDER [address] | | | | | | [address] | | | | | | [place], [place] | | | | | | [address] | | | | | | [phone] | | | | | | | | +--------+ + + + + | 04/24/ | Hospital | Adult Acute Care | Savanna Mari, | | | 2017 | Encounter | | MD [address] | | | | | | [place], [place] | | | | | | [address] | | | | | | [phone] | | | | | | | [...] [place] | | | | | | [address] | | | | | | [phone] | | | | | | | | +--------+ + + + + as of this encounter Visit Diagnoses Not on filein this encounter"
--- OUTSIDE RECORDS SUMMARY | ~2018-04-16 | XMS | Encounter Summary ---
Demographics + + + | Address | [address] | | | [place] [address] | + + + | Home Phone [...] Team Providers + +------+ + | Care Chemical Pumper Name | Role | Phone | + [...] | | 2017 | | Oncology at [place] | | | | | | for Health & Healing | | | | | | [address] | | | | | | Mailcode: CH7M | | | | | | [facility] | | | | | | and Healing, 7th | | | | | | Floor [place], [place] | | | | | | [address] | | | | | | [phone] | | | +--------+ + + + [...] Jackman | | | | | | [place] [address] | | +--------+ + + + + | 04/24/ | Office | Hematology & | Annie Gannon, | | | 2017 | Visit | Oncology | AGACNP,ACADEMIC SUPPORT COORDINATOR [address] | | | | | | [address] | | | | | | [place], [place] | | | | | | [address] | | | | | | [phone] | | | | | | | | +--------+ + + + + | 04/24/ | Hospital | Adult Acute Care | Savanna Mari, | | | 2017 | Encounter | | MD [address] | | | | | | [place], [place] | | | | | | [address] | | | | | | [phone] | | | | | | | [...] [place] | | | | | | [address] | | | | | | [phone] | | | | | | | | +--------+ + + + + as of this encounter Visit Diagnoses Not on filein this encounter"
--- OUTSIDE RECORDS SUMMARY | ~2018-04-16 | XMS | Encounter Summary ---
Demographics + + + | Address | [address] | | | [place] [address] | + + + | Home Phone [...] Team Providers + +------+ + | Care Cold Mill Operator Name | Role | Phone | [...] | | for Health & Healing | [place], [place] | | | | | [address] | [address] | | | | | Mailcode: CH7M | [phone] | | | | | [facility] | | | | | | and [facility], | | | | | | Floor [facility] [place] | | | | | | [address] | | | | | | [phone] | | | +--------+ + + + [...] | | | | | [place] [address] | | +--------+ + + + + | 04/24/ | Office | Hematology & | Annie Gannon, | | | 2017 | Visit | Oncology | ROME,WOLFGANG [address] | | | | | | [address] | | | | | | [place], [place] | | | | | | [address] | | | | | | [phone] | | | | | | | | +--------+ + + + + | 04/24/ | Hospital | Adult Acute Care | Savanna Mari, | | | 2017 | Encounter | | [address] | | | | | | [place], [place] | | | | | | [address] | | | | | | [phone] | | | | | | | [...] Scott | | | | | | [place], [place] | | | | | | [address] | | | | | | [phone] | | | | | | | | +--------+ + + + + as of this encounter Visit Diagnoses + + | Diagnosis | + + | Synovial sarcoma (HCC) - Primary | + + | 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
--- OUTSIDE RECORDS SUMMARY | ~2018-04-16 | XMS | Encounter Summary ---
Demographics + + + | Address | [address] | | | [place] [address] | + + + | Home Phone [...] Team Providers + +------+ + | Care Missile Control Pilot Name | Role | Phone | [...] DOVE | | | | | | [place] [address] | | | | | | [phone] | | | +--------+ + + + [...] 2017 | | Oncology | [address] [facility] | | | | | | [place] [address] | | +--------+ + + + + | 04/24/ | Office | Hematology & | Annie Gannon, | | | 2017 | Visit | Oncology | ROME,WEAVER HAND [address] | | | | | [address] | | | | | | [place], [place] | | | | | | [address] | | | | | | [phone] | | | | | | | | +--------+ + + + + | 04/24/ | Hospital | Adult Acute Care | Savanna Mari, | | | 2017 | Encounter | | [address] | | | | | | [place], [place] | | | | | | [address] | | | | | | [phone] | | | | | | | [...] [place] | | | | | | [address] | | | | | | [phone] | | | | | | | | +--------+ + + + + as of this encounter Visit Diagnoses Not on filein this encounter"
--- OUTSIDE RECORDS SUMMARY | ~2018-04-16 | XMS | Encounter Summary ---
Demographics + + + | Address | [address] | | | [place] [address] | + + + | Home Phone [...] + + + | Author | [facility] | + + + | Organization | [facility] | + + + | Address | Unknown | + + + | Phone | Unavailable | + + + Support + + +---------+ + | Name | Relationship | Address | Phone | + + +---------+ + | ROSE BOWENS | ECON | Unknown | | + + +---------+ + Care Team Providers + +------+ + | Care Attending Pathologist Name | Role | Phone | + [...] | 2018 | on | Oncology at [place] | | | | | | for Health & Healing | | | | | | [address] | | | | | | Mailcode: CH7M | | | | | | [facility] | | | | | | and , | | | | | | Floor [place], [place] | | | | | | [address] | | | | | | [phone] | | | +--------+ + + + [...] Jackman | | | | | | [place] [address] | | +--------+ + + + + | 04/24/ | Office | Hematology & | Annie Gannon, | | | 2017 | Visit | Oncology | ROME,MANAGER EXPORT [address] | | | | | [address] | | | | | | [place], [place] | | | | | | [address] | | | | | | [phone] | | | | | | | | +--------+ + + + + | 04/24/ | Hospital | Adult Acute Care | Savanna Mari, | | | 2017 | Encounter | | MD [address] | | | | | | [place], [place] | | | | | | [address] | | | | | | [phone] | | | | | | | [...] Scott | | | | | | [place] | | | | | | [address] | | | | | | [phone] | | | | | | | | +--------+ + + + + as of this encounter Visit Diagnoses Not on filein this encounter"
--- OUTSIDE RECORDS SUMMARY | ~2018-04-16 | XMS | Encounter Summary ---
Demographics + + + | Address | [address] | | | [place] [address] | + + + | Home Phone [...] Team Providers + +------+ + | Care Cafeteria Director Name | Role | Phone | [...] | | 2018 | | Oncology at [place] | [address] | | | | | for Health & Healing | [place], [place] | | | | | [address] | [address] | | | | | Mailcode: [facility] | [phone] | | | | | [facility] | | | | | | and Healing, 7th | | | | | | Floor [place], [place] | | | | | | [address] | | | | | | [phone] | | | +--------+ + + + [...] Jackman | | | | | | [place] [address] | | +--------+ + + + + | 04/24/ | Office | Hematology & | Annie Gannon, | | | 2017 | Visit | Oncology | AGASHANAE,SENIOR DATA MINING ANALYST [address] | | | | | [address] | | | | | | [place], [place] | | | | | | [address] | | | | | | [phone] | | | | | | | | +--------+ + + + + | 04/24/ | Hospital | Adult Acute Care | Savanna Mari, | | | 2018 | Encounter | | [address] | | | | | | [place], [place] | | | | | | [address] | | | | | | [phone] | | | | | | | [...] Scott | | | | | | [place] | | | | | | [address] | | | | | | [phone] | | | | | | | | +--------+ + + + + as of this encounter Visit Diagnoses Not on filein this encounter"
--- OUTSIDE RECORDS SUMMARY | ~2018-04-16 | XMS | Encounter Summary ---
Demographics + + + | Address | [address] | | | [place] [address] | + + + | Home Phone [...] Providers + +------+ + | Care Medical Administrator Name | Role | Phone | [...] | Synovial | Sandra Schmitt MD | [facility] [address] | | | | | sarcoma | [address] | [address] | | | | | ([facility]) | Ave | Mailcode: | | | | | Procedures | [facility] [place] | [address] | | | | | TRANSTHORACI | [address] | for Health | | | | | C | Phone: | and Healing | | | | | ECHOCARDIOGR | [phone] | [facility] [place] | | | | | AM WITH | Fax: | [address] | | | | | STRAIN - | [phone] | Phone: | | | | | CARDIO | | [phone] | | | | | MECHANICS, | | | | | | | ADULT [place] | | | | | | [...] | | 2017 | | Oncology at [place] | [address] | | | | | for Health & Healing | [place], [place] | | | | | [address] | [address] | | | | | Mailcode: CH7M | [phone] | | | | | [facility] | | | | | | and | | | | | | Floor [place], [place] | | | | | | [address] | | | | | | [phone] | | | +--------+ + + + [...] | | 2018 | | Oncology | [address] | | | | | | [place] [address] | | +--------+ + + + + | 04/24/ | Office | Hematology & | Annie Gannon, | | | 2017 | Visit | Oncology | ROME,ELECTRICAL POWER ENGINEER [address] | | | | | | [address] | | | | | | [place], [place] | | | | | | [address] | | | | | | [phone] | | | | | | | | +--------+ + + + + | 04/24/ | Hospital | Adult Acute Care | Savanna Mari, | | | 2017 | Encounter | | [address] | | | | | | [place], [place] | | | | | | [address] | | | | | | [phone] | | | | | | | [...] Scott | | | | | | [place], [place] | | | | | | [address] | | | | | | [phone] | | | | | | | | +--------+ + + + + + +--------+ + + | Name | Priori | Associated Diagnoses | Order Schedule | | | ty | | | + +--------+ + + | TRANSTHORACIC ECHOCARDIOGRAM WITH | Urgent | Synovial sarcoma | Ordered: 02/03/2018 | | STRAIN - CARDIO MECHANICS, ADULT | | ([facility]) | | + +--------+ + + as of this encounter Visit Diagnoses + + | Diagnosis | + + | Synovial sarcoma (HCC) - Primary | + + | 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
--- OUTSIDE RECORDS SUMMARY | ~2018-04-16 | XMS | Encounter Summary ---
Demographics + + + | Address | [address] | | | [place] [address] | + + + | Home Phone [...] Team Providers + +------+ + | Care Prototype Assembler Electronics Name | Role | Phone | + [...] | | | | Malignancies at | [facility], | | | | | [facility] | [place] [address] | | | | | [address] | [phone] | | | | | [address] | | | | | | Mailcode: [id number] | | | | | | [place] | | | | | | [place], [place] | | | | | | [address] | | | | | | [phone] | | | +--------+ + + + [...] Jackman | | | | | | [place] [place] [facility] | | +--------+ + + + + | 04/24/ | Office | Hematology & | Annie Gannon, | | | 2017 | Visit | Oncology | ROME,RESEARCH GEOLOGIST [address] | | | | | | [address] | | | | | | [place], [place] | | | | | | [address] | | | | | | [phone] | | | | | | | | +--------+ + + + + | 04/24/ | Hospital | Adult Acute Care | Savanna Mari, | | | 2017 | Encounter | | MD [address] | | | | | | [place], [place] | | | | | | [address] | | | | | | [phone] | | | | | | | [...] Scott | | | | | | [place], [place] | | | | | | [address] | | | | | | [phone] | | | | | | | | +--------+ + + + + as of this encounter Visit Diagnoses Not on filein this encounter"
--- OUTSIDE RECORDS SUMMARY | ~2018-04-16 | XMS | Encounter Summary ---
Demographics + + + | Address | [address] | | | [place] [address] | + + + | Home Phone [...] Team Providers + +------+ + | Care Fish Warden Name | Role | Phone | + [...] | [address] | [facility] ([facility] | | | | [facility] | [place], [place] | and labs) | | | | [address] | [address] | | | | | Mailcode: [facility] | [phone] | | | | | [facility] | | | | | | and Healing, [facility] | | | | | | Floor [place], [place] | | | | | | [address] | | | | | | [phone] | | | +--------+ + + + [...] Jackman | | | | | | [place] [address] | | +--------+ + + + + | 04/24/ | Office | Hematology & | Annie Gannon, | | | 2017 | Visit | Oncology | ROME,SASH FINISHER [address] | | | | | | [address] | | | | | | [place], [place] | | | | | | [address] | | | | | | [phone] | | | | | | | | +--------+ + + + + | 04/24/ | Hospital | Adult Acute Care | Savanna Mari, | | | 2017 | Encounter | | MD [address] | | | | | | [place], [place] | | | | | | [address] | | | | | | [phone] | | | | | | | [...] Scott | | | | | | [place], [place] | | | | | | [address] | | | | | | [phone] | | | | | | | | +--------+ + + + + + +--------+ + + | Name | Priori | Associated Diagnoses | Order Schedule | | | ty | | | + +--------+ + + | CBC, WITH DIFFERENTIAL | Routin | Synovial sarcoma | Every 3 weeks for 6 | | | e | (HCC) | Occurrences | | | | | starting 01/29/2018 | | | | | until 03/01/2019 | + +--------+ + + | COMPLETE METABOLIC SET | Routin | Synovial sarcoma | Every 3 weeks for 6 | | (NA,K,CL,CO2,BUN,CREAT,GLUC,CA, | e | (HCC) | Occurrences | | T,ALT,BILI TOTAL,ALK | | | starting 01/29/2018 | | PHOS,ALB,PROT TOTAL) | | | until 03/01/2019 | + +--------+ + + as of this encounter Visit Diagnoses + + | Diagnosis | + + | Synovial sarcoma (HCC) - Primary | + + | 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
--- OUTSIDE RECORDS SUMMARY | ~2018-04-16 | XMS | Encounter Summary ---
Demographics + + + | Address | [address] | | | [place] [address] | + + + | Home Phone | | + + + | Preferred Language | Unknown | + + + | Marital Status | Single | + + + | Christianity Affiliation | Unknown | + + + | Race | Unknown | + + + | Ethnic Group | Unknown | + + + Author + + + | Author | [facility] | | | and [facility] | + + + | Organization | [facility] | | | and [facility] | [...] Team Providers + +------+ + | Care Fur Trimming Machine Operator Name | Role | Phone | + +------+ + | Santo Gooden DO | PCP | | + +------+ + Reason for Referral Diagnostic/Screening (Routine) + +--------+ + + + + | Status | Reason | Specialty | Diagnoses / | Referred By | Referred To | | | | | Procedures | Contact | Contact | + +--------+ + + + + | Pending | | Radiology | Diagnoses | Minerva Patel | | Review | | | Synovial | Sandra Schmitt MD | [facility] | | | | | sarcoma | [address] | [facility] | | | | | ([facility]) | Ave | MEDICAL | | | | | Procedures | [facility] [place] | CENTER [address] | | | | | ECHO | [address] | [place] | | | | | Complete | Phone: | [place], | | | | | | [phone] | [place] [address] | | | | | | Fax: | Phone: | | | | | | [phone] | [phone] | | | | | | | Fax: | | | | | | | [phone] | + +--------+ + + + + Encounter Details +--------+ + + + + | Date | Type | Department | Care Team | Description | +--------+ + + + + | 02/03/ | Ancillary | [facility] | Sandra Patel MD | Synovial sarcoma | | 2018 | Orders | MED CTR XRAY [address] | [address] | ([facility]) | | | | Ricarda Watkins | [place], [place] | | | | | [place] [address] | [address] | | | | | [phone] | [phone] | | | | | | | [...] as of this encounter Plan of Treatment + +--------+ + + | Name | Priori | Associated Diagnoses | Order Schedule | | | ty | | | + +--------+ + + | ECHO Complete | Routin | Synovial sarcoma | Expected: | | | e | (HCC) | 02/03/2018, Expires: | | | | | 02/03/2019 | + +--------+ + + as of this encounter Visit Diagnoses + + | Diagnosis | + + | Synovial sarcoma (HCC) | + + | 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
--- OUTSIDE RECORDS SUMMARY | ~2018-04-16 | XMS | Encounter Summary ---
Demographics + + + | Address | [address] | | | [place] [address] | + + + | Home Phone [...] Team Providers + +------+ + | Care Scraper Hand Name | Role | Phone | [...] | | | | Mailcode: CH12A | [place], [place] | | | | | [facility] | [address] | | | | | and Healing | [phone] | | | | | [place], [place] | | | | | | [address] | | | | | | [phone] | | | +--------+ + + + [...] Jackman | | | | | | [place] [address] | | +--------+ + + + + | 04/24/ | Office | Hematology & | Annie Gannon, | | | 2017 | Visit | Oncology | ROME,MERCHANDISE WORKER [address] | | | | | | [address] | | | | | | [place], [place] | | | | | | [address] | | | | | | [phone] | | | | | | | | +--------+ + + + + | 04/24/ | Hospital | Adult Acute Care | Savanna Mari, | | | 2017 | Encounter | | [address] | | | | | | [place], [place] | | | | | | [address] | | | | | | [phone] | | | | | | | [...] | | | | | | [place] | | | | | | [address] | | | | | | [phone] | | | | | | | | +--------+ + + + + as of this encounter Visit Diagnoses Not on filein this encounter"
--- OUTSIDE RECORDS SUMMARY | ~2018-04-16 | XMS | Encounter Summary ---
Demographics + + + | Address | [address] | | | [place] [address] | + + + | Home Phone [...] Providers + +------+ + | Care Electric Golf Cart Repairers Name | Role | Phone | + +------+ + | Santo oGoden MD | PCP | | + +------+ [...] [address] | | | | | | [facility] | | | | | | [place], [place] | | | | | | [address] | | | +--------+ + + + [...] | | Oncology | [address] | | | | | | [place] [address] | | +--------+ + + + + | 04/24/ | Office | Hematology & | Annie Gannon, | | | 2018 | Visit | Oncology | [facility] [address] | | | | | | [address] | | | | | | [place], [place] | | | | | | [address] | | | | | | [phone] | | | | | | | | +--------+ + + + + | 04/24/ | Hospital | Adult Acute Care | Savanna Mari, | | | 2017 | Encounter | | [address] | | | | | | [facility] [place] | | | | | | [address] | | | | | | [phone] | | | | | | | [...] | | | [facility], [place] | | | | | | [address] | | | | | | [phone] | | | | | | | | +--------+ + + + + as of this encounter Visit Diagnoses Not on filein this encounter"
--- OUTSIDE RECORDS SUMMARY | ~2018-04-16 | XMS | Encounter Summary ---
Demographics + + + | Address | [address] | | | [place] [address] | + + + | Home Phone [...] Team Providers + +------+ + | [place] Captain Name | Role | Phone | + [...] | | 2018 | | [facility] | [address] | | | | | [facility] | [place], [place] | | | | | [address] | [address] | | | | | Mailcode: [facility] | [phone] | | | | | [facility] | | | | | | and Healing, [address]th | | | | | | Floor [place], [place] | | | | | | [address] | | | | | | [phone] | | | +--------+ + + + [...] [address] | | | | | | [place] [address] | | +--------+ + + + + | 04/24/ | Office | Hematology & | Annie Gannon, | | | 2017 | Visit | Oncology | AGASHANAE,[facility] [address] | | | | | [address] | | | | | | [place], [place] | | | | | | [address] | | | | | | [phone] | | | | | | | | +--------+ + + + + | 04/24/ | Hospital | Adult Acute Care | Savanna Mari, | | | 2018 | Encounter | | [address] | | | | | | [place], [place] | | | | | | [address] | | | | | | [phone] | | | | | | | [...] | | | | | | [place] | | | | | | [address] | | | | | | [phone] | | | | | | | | +--------+ + + + + as of this encounter Visit Diagnoses Not on filein this encounter"
--- OUTSIDE RECORDS SUMMARY | ~2018-04-16 | XMS | Encounter Summary ---
Demographics + + + | Address | [address] | | | [place] [address] | + + + | Home Phone [...] Author + + + | Author | [facility] | + + + | Organization | [facility] | + + + | Address | Unknown | + + + | Phone | Unavailable | + + + Support + + +---------+ + | Name | Relationship | Address | Phone | + + +---------+ + | ROSE BOWENS | ECON | Unknown | | + + +---------+ + Care Team Providers + +------+ + | Care Churn Operator Margarine Name | Role | Phone | + [...] | | | 2017 | Event | [facility] | Kemar Martin MD | | | | | Admitting Desk | [address] [facility] | | | | | Located on the | [facility], | | | | | floor [address] [facility] | [place] [address] | | | | | [facility] | [phone] | | | | | [place], [place] | | | | | | [address] | | | +--------+ + + + [...] | Total | + + + | midazolam | 2 mg | + + + | fentaNYL | 250 mcg | + + + | propofol (DIPRIVAN) 200 mg | 300 mg | + + + | rocuronium | 8 mg | + + + | succinylcholine | 140 mg | + + + | dexamethasone | 6 mg | + + + | ondansetron | 4 mg | + + + | LR | Cannot be | | | calculated | + + + | lidocaine 1% | 100 mg | + + + | ceFEPime | 2 g | + + + | metoprolol | 5 mg | + + + + + | [...] +--------+ + + + | Periph | Sho Reed MD ; Left; | 03/27/18 09 by | 03/31/18 0930 by | | eral | Sciatic/popliteal; 03/31/18; | | Melinda Agosto RN | | Nerve | 0930; Per protocol ( removed) | | | | Block | | | | +--------+ + + + | Drain | 03/27/18; 1055; 10 Fr Patrick; | 03/27/18 1055 by | 04/01/18 1300 by | | | Patrick; Left; Lower; leg; | Mónica Corrales RN | Belkis Monsivais, | | | 04/01/18; 1300; Other (Comment) [...] | | Oncology | [address] [facility] | | | | | | [place] [address] | | +--------+ + + + + | 04/24/ | Office | Hematology & | Annie Gannon, | | | 2018 | Visit | Oncology | [facility] PROFESSOR [address] | | | | | | [address] | | | | | | [place], [place] | | | | | | [address] | | | | | | [phone] | | | | | | | | +--------+ + + + + | 04/24/ | Hospital | Adult Acute Care | Savanna Mari, | | | 2017 | Encounter | | [address] | | | | | | [place], [place] | | | | | | [address] | | | | | | [phone] | | | | | | | [...] Scott | | | | | | [facility], [place] | | | | | | [address] | | | | | | [phone] | | | | | | | | +--------+ + + + + as of this encounter Results ANE ETT (03/27/2018 10:12 AM) + + | Narrative | + [...] Performed by Resident | + + ANE PNB CATH (03/27/2018 9:21 AM) + + | Narrative | + + | Jovon Reed MD 03/27/2018 9:22 AM PNB Cath TYPE [...] present Attending: CARON HARVEY Performed by Resident JOVON REED | | P A procedural pause verifying [...] + | Narrative | + + | Jovon Reed MD 03/27/2018 9:21 AM Single-Shot Type Type [...] CARON HARVEY Performed by Resident | | JOVON REED A procedural pause verifying correct patient, medical [...] | ceFEPIme (MAXIPIME) injection | Given | | 2 g | | | | INTRAPROCEDURE PRN, Starting Bettie | | 8 10:05 | | | | | 03/27/18 at 1005, Until Bettie | | PDT | | | | | 03/27/18 at 1144 | | | | | | + +--------+ +------+------+------+ +---+---+ | | | +---+---+ + +-------+ +------+---+---+ | dexamethasone (DECADRON) | Given | | 6 mg | | | | injection intravenous, | | 8 10:23 | | | | | INTRAPROCEDURE PRN, Starting Bettie | | PDT | | | | | 03/27/18 at 1023, Until Bettie | | | | | | | 03/27/18 at 1144 | | | | | | + +-------+ +------+---+---+ +---+---+ | | | +---+---+ + +-------+ +--------+---+---+ | fentaNYL (SUBLIMAZE) injection | Given | | 50 mcg | | | | INTRAPROCEDURE PRN, Starting Bettie | | 8 08:32 | | | | | 03/27/18 at 0832, Until Bettie | | PDT | | | | | 03/27/18 at 1144 | | | | | | + +-------+ +--------+---+---+ +-------+ +---------+---+---+ | Given | | 50 mcg | | | | | 8 08:41 | | | | | | PDT | | | | +-------+ +---------+---+---+ | Given | | 150 mcg | | | | | 8 09:43 | | | | | | PDT | | | | +-------+ +---------+---+---+ +---+---+ | | | +---+---+ + +---------+ +---+---+---+ | lactated Ringers IV | New Bag | | | | | | intravenous, INTRAPROCEDURE | | 8 09:33 | | | | | CONTINUOUS PRN, Starting Bettie | | PDT | | | | | 03/27/18 at 0933, Until Bettie | | | | | | | 03/27/18 at 1144 | | | | | | + +---------+ +---+---+---+ + + +---+---+---+ | given by anesthesiology | | | | | | | 8 10:20 | | | | | | PDT | | | | + + +---+---+---+ +---+---+ | | | +---+---+ + +-------+ +--------+---+---+ | lidocaine PF (XYLOCAINE MPF) 10 | Given | | 100 mg | | | | mg/mL (1 %) injection | | 8 09:44 | | | | | INTRAPROCEDURE PRN, Starting Bettie | | PDT | | | | | 03/27/18 at 0944, Until Bettie | | | | | | | 03/27/18 at 1144 | | | | | | + +-------+ +--------+---+---+ +---+---+ | | | +---+---+ + +-------+ +------+---+---+ | metoprolol (LOPRESSOR) | Given | | 5 mg | | | | injection intravenous, | | 8 11:35 | | | | | INTRAPROCEDURE PRN, Starting Bettie | | PDT | | | | | 03/27/18 at 1135, Until Bettie | | | | | | | 03/27/18 at 1144 | | | | | | + +-------+ +------+---+---+ +---+---+ | | | +---+---+ + +-------+ +------+---+---+ | midazolam (PF) (VERSED) | Given | | 2 mg | | | | injection INTRAPROCEDURE PRN, | | 8 08:32 | | | | | Starting Bettie 03/27/18 at 0832, | | PDT | | | | | Until Bettie 03/27/18 at 1144 | | | | | | + +-------+ +------+---+---+ +---+---+ | | | +---+---+ + +-------+ +------+---+---+ | ondansetron (ZOFRAN) injection | Given | | 4 mg | | | | intravenous, INTRAPROCEDURE PRN, | | 8 10:59 | | | | | Starting Bettie 03/27/18 at 1059, | | PDT | | | | | Until Bettie 03/27/18 at 1144 | | | | | | + +-------+ +------+---+---+ +---+---+ | | | +---+---+ + +---------+ +--------+---+---+ | propofol (DIPRIVAN) 200 mg | New Bag | | 250 mg | | | | intravenous, INTRAPROCEDURE | | 8 09:44 | | | | | CONTINUOUS PRN, Starting Bettie | | PDT | | | | | 03/27/18 at 0944, Until Bettie | | | | | | | 03/27/18 at 1144 | | | | | | + +---------+ +--------+---+---+ +-------+ +-------+---+---+ | Bolus | | 50 mg | | | | | 8 11:28 | | | | | | PDT | | | | +-------+ +-------+---+---+ +---+---+ | | | +---+---+ + +-------+ +------+---+---+ | rocuronium (ZEMURON) injection | Given | | 8 mg | | | | intravenous, INTRAPROCEDURE PRN, | | 8 09:44 | | | | | Starting Bettie 03/27/18 at 0944, | | PDT | | | | | Until Bettie 03/27/18 at 1144 | | | | | | + +-------+ +------+---+---+ +---+---+ | | | +---+---+ + +-------+ +--------+---+---+ | succinylcholine (ANECTINE) | Given | | 140 mg | | | | injection intravenous, | | 8 09:46 | | | | | INTRAPROCEDURE PRN, Starting Bettie | | PDT | | | | | 03/27/18 at 0946, Until Bettie | | | | | | | 03/27/18 at 1144 | | | | | | + +-------+ +--------+---+---+ +---+---+ | | | +---+---+ in this encounter"
--- OUTSIDE RECORDS SUMMARY | ~2018-04-16 | XMS | Encounter Summary ---
Demographics + + + | Address | [address] | | | [place] [address] | + + + | Home Phone [...] + + + | Author | [facility] | | | and [place] | + + + | Organization | [facility] | | | and Socrates[place] [...] Team Providers + +------+ + | Care Embroidery Cutter Name | Role | Phone | [...] | | | | | sarcoma | [address] | [place] | | | | | ([facility]) | Ave | MEDICAL | | | | | Procedures | [facility] [place] | CENTER [address] | | | | | ECHO | [address] | [place] | | | | | Complete | Phone: | [place], | | | | | | [phone] | [place] [address] | | | | | | Fax: | Phone: | | | | | | [phone] | [phone] | | | | | | | Fax: | | | | | | | [phone] | + +--------+ + + + + Encounter Details +--------+ + + + + | Date | Type | Department | Care Team | Description | +--------+ + + + + | 02/03/ | Ancillary | [facility] | Sandra Patel MD | Synovial sarcoma | | 2018 | Orders | MED CTR XRAY [address] | [address] | ([facility]) | | | | Ricarda Watkins | [place], [place] | | | | | [place] [address] | [address] | | | | | [phone] | [phone] | | | | | | | [...]
--- OUTSIDE RECORDS SUMMARY | ~2018-04-16 | XMS | Encounter Summary ---
Demographics + + + | Address | [address] | | | [place] [address] | + + + | Home Phone [...] Team Providers + +------+ + | Care Bilingual Branch Manager Name | Role | Phone | + +------+ + | Santo Gooden MD | PCP | | + +------+ + Encounter Details +--------+------+ + + + | Date | Type | Department | Care Team | Description | +--------+------+ + + + | 01/23/ | Lab | Laboratory at [facility] | | Synovial sarcoma | | 2018 | | 3rd Floor [address] | | ([facility]) | | | | [address] [place], | | | | | | [place] [address] | | | | | | [phone] | | | +--------+------+ + + + [...] 2018 | | Oncology | [address] [facility] | | | | | | [place] [address] | | +--------+ + + + + | 04/24/ | Office | Hematology & | Annie Gannon, | | | 2018 | Visit | Oncology | [facility] [address] | | | | [address] | | | | | | [place], [place] | | | | | | [address] | | | | | | [phone] | | | | | | | | +--------+ + + + + | 04/24/ | Hospital | Adult Acute Care | Savanna Mari, | | | 2017 | Encounter | | [address] | | | | | | [place], [place] | | | | | | [address] | | | | | | [phone] | | | | | | | [...] [address] | | | | | | [place], [place] | | | | | | [address] | | | | | | [phone] | | | | | | | [...] | + + + | Blood | [facility] [address] | | | [place] [address] | + + + INR (01/23/2018 2:48 PM) + +-------+ + | Component | Value | Ref Range | + +-------+ + | INR | 1.03 | 0.90 - 1.20 INR | + +-------+ + + + + | Specimen | Performing Laboratory | + + + | Blood | [facility] [address] [facility] | | | [place] [address] | + + + + + | [...] | + + + | Blood | [facility], [facility] [address] | | | [place] [address] | + + + [facility] - CBC [...] | ------ CBC AND AUTO | | DIFF[[id number]] Abnormal Final | | result Please view results for these tests on the | | individual orders. 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
--- OUTSIDE RECORDS SUMMARY | ~2018-04-16 | XMS | Encounter Summary ---
Demographics + + + | Address | [address] | | | [place] [address] | + + + | Home Phone [...] Team Providers + +------+ + | Care Goal Umpire Name | Role | Phone | + [...] | | 2018 | | [facility] | [address] | | | | | for [facility] | [place], [place] | | | | | [address] | [address] | | | | | Mailcode: CH7 | [phone] | | | | | [facility] | | | | | | and , | | | | | | [place], [place] | | | | | | [address] | | | | | | [phone] | | | +--------+ + + + [...] [address] | | | | | | [place] [address] | | +--------+ + + + + | 04/24/ | Office | Hematology & | Annie Gannon, | | | 2017 | Visit | Oncology | [place],MESH WORKER [address] | | | | | | [address] | | | | | | [place], [place] | | | | | | [address] | | | | | | [phone] | | | | | | | | +--------+ + + + + | 04/24/ | Hospital | Adult Acute Care | Savanna Mari, | | | 2017 | Encounter | | MD [address] | | | | | | [place], [place] | | | | | | [address] | | | | | | [phone] | | | | | | | [...] Scott | | | | | | [facility] [place] | | | | | | [address] | | | | | | [phone] | | | | | | | | +--------+ + + + + as of this encounter Visit Diagnoses Not on filein this encounter"
--- OUTSIDE RECORDS SUMMARY | ~2018-04-16 | XMS | Encounter Summary ---
Demographics + + + | Address | [address] | | | [place] [address] | + + + | Home Phone [...] Providers + +------+ + | Care Health Plan Advisor Name | Role | Phone | + [...] [place] | | | | | | [place] | | | | | | [place], [place] | | | | | | [address] | | | +--------+ + + + [...] | | Oncology | [address] | | | | | | [place] [address] | | +--------+ + + + + | 04/24/ | Office | Hematology & | Annie Gannon, | | | 2018 | Visit | Oncology | [facility] SUPERVISOR [address] | | | | | | [address] | | | | | | [place], [place] | | | | | | [address] | | | | | | [phone] | | | | | | | | +--------+ + + + + | 04/24/ | Hospital | Adult Acute Care | Savanna Mari, | | | 2017 | Encounter | | [address] | | | | | | [facility] [place] | | | | | | [address] | | | | | | [phone] | | | | | | | [...] Scott | | | | | | [facility], [place] | | | | | | [address] | | | | | | [phone] | | | | | | | | +--------+ + + + + as of this encounter Visit Diagnoses Not on filein this encounter"
--- OUTSIDE RECORDS SUMMARY | ~2018-04-16 | XMS | Encounter Summary ---
Demographics + + + | Address | [address] | | | [place] [address] | + + + | Home Phone [...] Team Providers + +------+ + | Care Grating Machine Operator Name | Role | Phone | + +------+ + | Santo Gooden MD | PCP | | + +------+ + Encounter Details +--------+ + + + + | Date | Type | Department | Care Team | Description | +--------+ + + + + | 04/09/ | Pharmacy | [facility] | | | | 2018 | Visit | [facility] | | | | | | [address] | | | | | | [place], [place] | | | | | | [address] | | | | | | [phone] | | | +--------+ + + + [...] | | Oncology | [address] [facility] | | | | | | [place] [address] | | +--------+ + + + + | 04/24/ | Office | Hematology & | Annie Gannon, | | | 2018 | Visit | Oncology | AG[place]HANAE,DESIGN MAKER [address] | | | | | | [address] | | | | | | [place], [place] | | | | | | [address] | | | | | | [phone] | | | | | | | | +--------+ + + + + | 04/24/ | Hospital | Adult Acute Care | Savanna Mari, | | | 2017 | Encounter | | [address] | | | | | | [place], [place] | | | | | | [address] | | | | | | [phone] | | | | | | | [...] [place] | | | | | | [address] | | | | | | [phone] | | | | | | | | +--------+ + + + + as of this encounter Visit Diagnoses Not on filein this encounter"
--- OUTSIDE RECORDS SUMMARY | ~2018-04-16 | XMS | Encounter Summary ---
Demographics + + + | Address | [address] | | | [place] [address] | + + + | Home Phone [...] Providers + +------+ + | Care Supervisor Sample Name | Role | Phone | + [...] BELOW KNEE | | 2018 | | [facility] | MD [address] [facility] | AMPUTATION | | | | Admitting Desk | [facility] | | | | | Located on the 9 | [place], [place] | | | | | floor [address] [facility] | [address] | | | | | [facility] | [phone] | | | | | [place], [place] | | | | | | [address] | | | +--------+---------+ + + + [...] note may be different from remedios lin. [facility] DEPARTMENT OF ORTHOPAEDICS & REHABILITATION INPATIENT HOSPITAL DISCHARGE SUMMARY & INTERDISCIPLINARY INSTRUCTIONS Patient: Tati Cage CSN: [id number] Admission Date: 02/06/2018 Discharge Date: 02/11/2018 Attending Physician: Haydee Basurto MD PCP: Santo Gooden MD Service: [facility] Orthopaedics & Rehabilitation Diagnoses Principal Final [...] suspect your wound is infected. Call [facility] Orthopedics first at [phone]. Activity Non-weight bearing on left leg. Restrictions: no range of motion restrictions. Encourage to perform extension exercises on left leg. OK to use knee scooter Condition on Discharge Stable Follow-Up Appointments ORTHOPEDICS OUTPATIENT CLINIC: 02/19/2018 2:20 PM Haydee Basurto [facility] Orthopaedics & Rehabilitation [phone] [place] PCP: As needed for any medical [...] administration instructions. - Call Orthopedic Clinic at [phone] if any persistent, localized swelling that does [...] and ask for the orthopaedic surgery resident controls design engineer. Additional Post-Op Instructions / What to [...] Pierre Dean DO Orthopedic Surgery Resident Pager [phone] [facility] [place] Department of Orthopaedics & Rehabilitation [address] [place] [address] Mail Code: OP31 [facility] [address] in this encounter Discharge Instructions Lanette Brantley MSW - 02/07/2018AMPUTEE RESOURCES: http://www.Shopsy/new-patient/ampower/Pages/Home.aspx http://www.Shopsy/new-patient/ampower/ed-resources/Pages/Xmpse-hnh-Qsfcqdswzl.asp x http://www.lzyuf1reah.org.au/news-events/news/qnjseilgh-vwenzp-capgebwqtj-fc-fldx-robumaeb- mqh-qjaav-hxnmpvah MENTAL HEALTH/SUICIDE PREVENTION RESOURCES [facility] in [facility] is a 24-hour behavioral and mental health services center, providing immediate psychi atric care and a path to recovery for people experiencing a mental health crisis. Address: [facility], [address] [place] [address] Hours: 24 hours/day, 7 days a week, no appointment needed NATIONAL CRISIS LINES 25/03 National Suicide Prevention Lifeline 7-000-089-TALK (0841) Hearing and Speech Impaired 0-832-180-4TTY (7047) 25/03 Mental Health Treatment Referral Line 6-727-589-HELP (6655) [facility] CRISIS [facility] For emergencies or life threatening situations, please call [facility] Mental Health Crisis Line [phone] (24 hours a day, 7 days a week) [facility] Mental health services for adults, children, and families; walk-ins welcome. Access informa tion and referral line for [facility] services in housing, recovery and assistance. Address: [facility]/Referral service [address] [place] [address] (Near [address] [place] [address]) [place], [address] Transit: [employer] bus #4 Hours: 7 a.m.-10:00 p.m, 7 [...] Practitioner Acute Pain Service /[facility] [address] [place] [id number] Pierre Dean DO - 02/11/2018 6:46 AM PDTFormatting of this note may be different from remedios lin. [facility] DEPARTMENT OF ORTHOPAEDICS & REHABILITATION PROGRESS NOTE [...] Pierre Dean DO Orthopedic Surgery Resident Pager [phone] Pierre Dean DO - 02/10/2018 11:43 AM PDTFormatting of this note may be different from remedios lin. [facility] DEPARTMENT OF ORTHOPAEDICS & REHABILITATION PROGRESS NOTE [...] Pierre Dean DO Orthopedic Surgery Resident Pager [phone] Jesusita Mccullough NP - 02/10/2018 11:24 AM [...] team provider Thania GONZALEZ and Srikanth Foster KETTLE WORKER Orthopedic Surgery . Jesusita Mccullough NP Adult Pain Service Pager [phone] Team Pager [phone] Pierre Dean, DO - 02/09/2018 1:34 PM PDTFormatting of this note may be different from remedios lin. [facility] DEPARTMENT OF ORTHOPAEDICS & REHABILITATION PROGRESS NOTE [...] Pierre Dean DO Orthopedic Surgery Resident Pager [phone] John Burciaga - 02/09/2018 12:59 PM PDTTransthoracic [...] and summary of old medical records (source: [employer]), as summarized in the body of the note. Discussion of case with another healthcare provider nurse. Please page APS #[phone] with questions and concerns. MD Thanh SHEA [...] and summary of old medical records (source: [employer]), as summarized in the body of the note. Discussion of case with another healthcare provider nurse. Please page APS #[phone] with questions and concerns. MD Sandra SHEA Taylor R, MD - 02/08/2018 9:05 AM PDTFormatting of this note may be different from t jorge luis original. [facility] DEPARTMENT OF ORTHOPAEDICS & REHABILITATION PROGRESS NOTE [...] discharge. HAYDE FLORES MD Orthopaedics PGY-3 Pager: [phone], MD Haydee - 02/08/2018 8:57 AM PDTPt [...] note may be different from the original. [facility] DEPARTMENT OF ORTHOPAEDICS & REHABILITATION PROGRESS [...] discharge. 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 No kids. Lives with her mother Rose. [...] by primary care team. Madiha Rebollar DNP, DATA INTEGRITY ANALYST-C Adult Pain Service /[facility] [address] [place] [address] Patricio Giles MD - 02/07/2018 7:18 AM PDTGold Surgery Brief Progress Note ID: Tati Cage is a 32 y.o. 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 No pneumothorax. A/P Uneventful port a cath placement. OK to use. Contact gold surgery with questions or concerns Remainder of care per primary team Dior Giles MD General Surgery [id number] Basurto MD - 02/07/2018 6:51 AM PDTPt [...] note may be different from the original. [facility] DEPARTMENT OF ORTHOPAEDICS & REHABILITATION PROGRESS NOTE [...] discharge. HAYDE FLORES MD Orthopaedics PGY-3 Pager: [phone] this encounter Plan of Treatment +--------+ + + + + | Date | Type | Specialty | Care Team | Description | +--------+ + + + + | 04/24/ | Appointment | Hematology & | Darwin Juan Starter | | | 2018 | | Oncology | [address] | | | | | | [place] [address] | | +--------+ + + + + | 04/24/ | Office | Hematology & | Annie Gannon, | | | 2017 | Visit | Oncology | AGASHANAE,DATA INTEGRITY ANALYST [address] | | | | | [address] | | | | | | [place], [place] | | | | | | [address] | | | | | | [phone] | | | | | | | | +--------+ + + + + | 04/24/ | Hospital | Adult Acute Care | Savanna Mari, | | | 2017 | Encounter | | [address] | | | | | | [place], [place] | | | | | | [address] | | | | | | [phone] | | | | | | | [...] [address] | | | | | | [place], [place] | | | | | | [address] | | | | | | [phone] | | | | | | | [...] Laboratory | + + + | | [facility] [address] [place] [address] | | | [place] [address] | + + + + + | Narrative | + + | [facility] Adult Echocardiography Laboratory | | [address] [place] [phone] Ph: | | Pt Name: TATI CAGE Study | | Date/Time 02/09/2018 / 11:45:04 AM | | Most recent prior: - Acc #: [id number] No. previous echos: 0 | | : 1985 32 years Heart Rate: 78 bpm Height: 68.0 | | in Blood Pressure: 121/61 mm/Hg Weight: 308.0 | | lb Gender: F BSA: 2.46 | | m2 Order ID: [id number] Cook Dinner: | | John Gonzalez MA, [facility] Cook Dinner 2: Referring Provider: Haydee Yanez | | [...] and indexed values Report electronically signed by: [id number] Justin | | Malachi DIAS (02/09/2018, 3:09:17 PM) Final | + + + + | Procedure Note | + + | Interface, Ecg Results - 02/09/2018 3:[address] [facility] | | [facility] Echocardiography Laboratory [address] [place] [address] | | [place], [place] [address] Pt Name: TATI WILKERSON | | NILES Study Date/Time 02/09/2018 / 11:45:04 AMMRN: [id number] Most | | recent prior: -Acc #: [id number] No. previous echos: 0DOB: 1985 32 | | years Heart Rate: 78 bpmHeight: 68.0 in Blood Pressure: 121/61 | | mm/HgWeight: 308.0 lb Gender: FBSA: 2.46 m2 | | Order ID: [id number] Cook Dinner: John Gonzalez MA, RDCSSonographer | | 2:Referring [...] values Report | | electronically signed by: [id number] Justin Ly MD (02/09/2018, 3:09:17 PM) | [...] | | | |Report electronically signed by: [id number] Justin Ly MD (02/09/2018, 3:09:17 | |PM) | | | | | | | | Final | + + PROCEDURE NOTE (02/07/2018 11:22 AM)X-RAY TIBIA & FIBULA 2 VIEWS LT (02/07/2018 8:57 AM) + + + | Specimen | Performing Laboratory | + + + | | [facility] RADIOLOGY VOICE RECOGNITION 2 [...] | + + + | Blood | [facility], CORE [address] [facility] | | | [place] [address] | + + + + + | [...] | | ------ CBC (HEMOGRAM) | | ONLY[[id number]] Abnormal Final | | result Please view [...] | >60 | >60 mL/min | | [place] | | | + +---------+ + | EGFR NON | >60 | >60 mL/min | | -[place] | | | + +---------+ + | [...] | + + + | Blood | [facility], CORE [address] [facility] | | | [place] [address] | + + + + + | [...] MD Preoperative | | Diagnosis: need for fci central venous access Postoperative Diagnosis: same | [...] | | Attending Surgeon: Haydee Basurto MD Farm Instructor(s): Hayde | | Mike Flores MD. Preoperative [...] | MDYD/MODLDD: 02/06/2018 15:36:23DT: 02/06/2018 19:40:30Job #: [id number] | + + X-RAY PORTABLE CHEST 1 VIEW (02/06/2018 4:54 PM) + + + | Specimen | Performing Laboratory | + + + | | [facility] RADIOLOGY VOICE RECOGNITION 2 | + + + + + | Narrative | + + | EXAM: ME CHEST 1 VIEW HISTORY: s/p port placement [...] Interface - 02/06/2018 5:11 PM PDT EXAM: ME CHEST 1 | | VIEW HISTORY: s/p [...] | Hayde Flores MD 02/06/2018 3:58 PM [facility] | | Department of Orthopaedics & Rehabilitation BRIEF OPERATIVE NOTE | | Patient: Tati Cage | | | | CSN: [id number] | | Date: 02/06/2018 | | Attending Surgeon: Haydee | | MD Sb Farm Instructor(s): 1. HAYDE FLORES MD Preoperative | | [...] Saturday HAYDE R | | MD SANDRA [facility] [place] | | Department of Orthopaedics & Rehabilitation [address] [place] [address] Mail Code: | | OP31 [facility] [address] Pager: [phone] | + + CAPILLARY BLOOD GLUCOSE (NO CHG), POC (02/06/2018 3:53 PM) + +-------+ + | Component | Value | Ref Range | + +-------+ + | BLOOD GLUCOSE, POC | 79 | 70 - 99 mg/dL | + +-------+ + + + + | Specimen | Performing Laboratory | + + + | | [facility], POINT OF CARE TESTS [address] | | | [place] [address] | + + + SURGICAL PATHOLOGY (02/06/2018 [...] | | | Comment: See prior biopsy ([id number]). | | | | Case seen by:Edgard [...] | | | necrosis. See prior biopsy [id number]). | | | | Please correlate clinically. | | | | Comment(s): Extensive fibrinopurulent, necrotic material is p resent, not indicative of true tumor necrosis. See prior biopsy [id number]). Please correlate clinically. | | + + + + | Gross Description | Received is one specimen fresh in a | | | | container labeled with the patient's name | | | | (initials [facility]) and medical record number | | | | [id number]. A. Left leg, amputation: Received | | [...] | | | margin at the stitch. Bottom Finisher | | | | sections are submitted. [...] ulceration | | | | and underlying donhjI00-Q93, composite | | | | section of posterior tumor mlxducuF03-T98, | | | | additional composite section of | | | | voebeH97-X78, additional composite section | | | | of kywtfB64-K43, additional composite | | | | section of xwnygJ00-Y71, additional | | | | composite section of tumor A31-A32, | | | | composite section of anterior zlymqL76, | | | | uninvolved skin and soft tissue adjacent to | | | | anterior zphvjF16, uninvolved skin and | | | | soft tissue adjacent to posterior lhjzdI88, | | | | underlying bone with attached soft | | | | ojqpuzH15, navicular and medial cuneiform | | | | bones and vzfdsQ09, navicular bone and | | | | [...] characteristics determined | | | | by [facility]. It has not been | | | [...] + + | Tissue - Leg | [facility] OF PATHOLOGY [address] [facility] | | | [place] [address] | + + + PROCEDURE NOTE (02/06/2018 2:20 PM) + + | Narrative | + + | Macie Loredo MD 02/06/2018 2:37 PM PATIENT NAME: Tati Cage MDSU | | MR#: [id number] : 1985 Date: 02/06/2018 Attending Surgeon: Macie Loredo | | Farm Instructor(s): Jan Giles MD Preoperative Diagnosis(es): 1. | [...] obtained in the recovery | | unit. aMcie Loredo MD [facility] Division of Surgical Oncology | | Thyroid and Parathyroid Center [facility] | + + X-RAY FLUOROSCOPY IN OR [...] TESTS [address] | | | [place] [address] | + + + INTRAPROCEDURE IMAGING (02/06/2018 [...] | | | | INTRAPROCEDURE PRN, Starting [facility] | | | | | [...] | | | | | dose on [facility] 02/06/18 at 1745, Until | [...]
--- OUTSIDE RECORDS SUMMARY | ~2018-04-16 | XMS | Encounter Summary ---
Demographics + + + | Address | [address] | | | [place] [address] | + + + | Home Phone [...] Team Providers + +------+ + | Care Channeling Machine Runner Name | Role | Phone | + [...] Incision AND | | 2018 | | [facility] [address] | [address] | drainage | | | | [address] Mailcode: CH12A | [address] | | | | | [facility] | [place], [place] | | | | | and | [address] | | | | | Floor [place], [place] | [phone] | | | | | [address] | | | | | | [phone] | | | +--------+ + + + [...] [address] | | | | | | [place] [address] | | +--------+ + + + + | 04/24/ | Office | Hematology & | Annie Gannon, | | | 2017 | Visit | Oncology | [place],WATER RESTORATION TECHNICIAN [address] | | | | | [address] | | | | | | [place], [place] | | | | | | [address] | | | | | | [phone] | | | | | | | | +--------+ + + + + | 04/24/ | Hospital | Adult Acute Care | Savanna Mari, | | | 2017 | Encounter | | [address] | | | | | | [place], [place] | | | | | | [address] | | | | | | [phone] | | | | | | | [...] [address] | | | | | | [place] | | | | | | [address] | | | | | | [phone] | | | | | | | | +--------+ + + + + as of this encounter Visit Diagnoses Not on filein this encounter"
--- OUTSIDE RECORDS SUMMARY | ~2018-04-16 | XMS | Encounter Summary ---
Demographics + + + | Address | [address] | | | [place] [address] | + + + | Home Phone [...] Team Providers + +------+ + | Care Coating Supervisor Name | Role | Phone | [...] BKA STUMP | | 2017 | | [facility] | MD [address] | | | | | Admitting Desk | [place], [place] | | | | | Located on the | [address] | | | | | floor [address] [facility] | [phone] | | | | | [facility] | | | | | | [place], [place] | | | | | | [address] | | | +--------+---------+ + + + [...] loss (including CT abdomen, pelvis, legs). Before shruthi jacobrge her hemoglobin had improved and her repeat [...] CBC and reticulocyte count on 04/04/18 a [facility]. Appointments: Future Appointments Provider Department Dept Phone Center 04/09/2018 2:00 PM Hem Starter Nurse Hematology/Medical Oncology at [facility] [phone] HemOnc 04/09/2018 3:10 PM Sandra Patel Hematology/Medical Oncology at [place] [address] [phone] [place] 04/09/2018 3:40 PM Lynda Basurto [facility] Orthopaedics & Rehabilitation [phone] [place] Discharge condition: Fair Discharge destination (If [...] line nausea/vomiting). Miscellaneous Medical Supply [facility] Commonly known as: Miscellaneous Medical Supply Bedside [...] 25 mg Tab Commonly known as: HYDRODIURIL Ecrmjywyi-Nlbbobysh-Js-Mag-Sim 500-68-179-40 mg/30 mL Mwsh Commonly known as: FIRST-MOUTHWASH [...] room air Abdominal: nontender, non-distended, obese Skin: [place], warm, well-perfused, no ecchymoses Extremities: LLE vhaqt-sfj-ulcl amputation site dressed in compression wrap. Drain [...] MD I spent more than 36 minutes bkkx-im-zyuu with the patient of which greater than 50% was sp ent counseling the patient coordinating care. in this encounter Discharge Instructions Rashida Thompson RN - 04/01/2018In order to receive services for line care and lab work at [facility] Infusion/Day Surgery: you will first need to be seen by an MD (with stephane cortez at [facility] in [facility]). [facility] an MD prior to your Saturday04/04/[facility] for your lab [...] line | | | | | | ([facility]) | nausea/vomiting). | | | [...] for | | | | | | ([facility]) | nausea/vomiting). | | | [...] soon | | | | | | ([facility]) | and do not combine | | [...] line | | | | | | ([facility]) | agent for acute or | | [...] Orthopaedic Attending: Tati Cage 1985 32 y.o. [id number] 04/01/2018 03/23/2018 9 Macie Torre MD Diagnosis(es): [...] to make a follow up appointment in [facility] 2 weeks with ORTHO ONCOLOGY, Odalys Stafford - (Adela) Junaid Burrell MD Orthopaedic Surgery, R3 [id number] 03/31/2018 Cesia Foster NP - 04/01/2018 12:14 PM PDTFormatting of this note may be different from t he original. Orthopaedic Surgery Progress Note Patient: /Age: MRN: CSN: Date: Admission Date: Hospital Day: Orthopaedic Attending: Tati Cage 1985 32 y.o. [id number] 04/01/2018 03/23/2018 9 Macie Torre MD Diagnosis(es): [...] infection or alberto inage. Cesia Foster NP [facility] [address] [place], [place] [id number] Lynda Basurto MD - 04/01/2018 11:49 AM [...] and dsg change prior to dischargeDawit Amaya Sho - 03/31/2018 7:38 PM PDTFor matting of [...] consulted, see above plan # Pancytopenia # Mbxxb-dv-nsjgelk anemia Pt's WBC and platelets have recovered, [...] and hemat ology workup. Dawit Amaya, MS4 [facility] [id number] Associated attestation - Greg Edgar MD - 03/31/2018 9:11 PM PDTGeneral Medicine Attending Progress Note Author: Greg Edgar MD Hospital Day # 8 PCP: Santo Gooden MD I personally interviewed the patient, performed the romero elements of the physical examheidi marroquin, and personally formulated the assessment and plan [...] agreeable with our plans. Greg Edgar MD [facility] Division of Hospital Medicine Teaching Attending I spent 37 minutes in the care of this patient, >50% engaged in bedside counseling or coord ination of care with orthopedics, anesthesia pain service.Bela Holt MD - 018 9:28 AM PDTPt weaned off PNB. Catheter pulled. Tip intact. Coag status normal prior to removal of catheter. APS will sign-off. Please pg APS [phone] with questions/concerns. Bela oHlt MD APS # [id number] Lynda Basurto MD - 03/31/2018 9:14 AM [...] Orthopaedic Attending: Tati Cage 1985 32 y.o. [phone] [id number] 03/31/2018 03/23/2018 8 Macie Torre MD Diagnosis(es): [...] to make a follow up appointment in [facility] 2 weeks with ORTHO ONCOLOGY, Odalys Stafford - (Sb and Jorge L) Junaid Burrell MD Orthopaedic Surgery, R3 [id number] 03/31/2018 Cesia Gaitan MD - 03/30/2018 4:51 PM PDTAPS Clarification Note; Tonight the continuous rate on the nerve block will be to 0 ml/hr and bolus only will be in place. Catheter will be pulled Saturday morning. Cesia Gaitan MD [facility] [address] [facility], 4th Floor Mail Code: CH4P [place], [place] [address] Rafael Shell MD - 03/30/2018 4:35 PM [...] on 03/17/18. - Pt beingfollowed by onc [facility], appreciate recs. Dr. Sandra Patel is her primary oncologist and she will have follow up on 04/09 to discuss cycle 3 planning. # mild LE edema Suspect due to IVF. - compression stocking to RLE. - will consider lasix # Pancytopenia # Dwxtg-zw-nyxkcev anemia Likely hypoproliferationin setting of recentsystemic chemotherapy and acute inflammatio n. Will continue to monitor and transfuse as needed, goal >7. - She has received a total of 5 units of pRBCs at [facility] and 1 unit previously at OSH. [...] Rafael Suleman PGY-2 Internal Medicine Pager # [phone] Associated attestation - Greg Edgar MD - [...] agreeable with our plans. Greg Edgar MD [facility] [facility] Division of Hospital Medicine Teaching Attending I [...] 25 mg 25 mg oral Q6H PRN jrhvbyycxcMHBEP-awfbminvf-FFWQRF (SPECIAL MOUTHWASH) suspension (compound) 5 mL 5 [...] primary care team provider . MD Kandy Briceño, Cesia Rogers MD - 03/30/2018 10:26 AM PDTFormatting of [...] 25 mg 25 mg oral Q6H PRN vtsdfbwpjjMTTQI-uopbqllax-UPXLIR (SPECIAL MOUTHWASH) suspension (compound) 5 mL 5 [...] may be different from remedios thorne original. Orthopaedic Surgery Progress Note Patient: /Age: MRN: CSN: Date: Admission Date: Hospital Day: Orthopaedic Attending: Tati Cage 1985 32 y.o. [id number] 03/30/2018 03/23/2018 7 Macie Torre MD Diagnosis(es): [...] to make a follow up appointment in [facility] 2 weeks with ORTHO ONCOLOGY, Odalys Stafford - (Sb and Jorge L) Adam Jean MD Pager: [phone] Dawit Amaya - 03/29/2018 4:46 PM PDTFormatting of this [...] on 03/17/18. - Pt beingfollowed by onc [facility], appreciate recs. Dr. Sandra Patel is her primary oncologist . Oncology team communicating with Dr. Patel. - Coordinating with onc and ortho regarding plan for timing of cycle 3 of chemotherapy, whi ch will need to be delayed to allow for healing after infection. # Pancytopenia # Txkqx-hb-qgqdwgs anemia Likely hypoproliferationin setting of recentsystemic chemotherapy and acute inflammatio n. Will continue to monitor and transfuse as needed, goal >7. - Hg 6.8 this morning --> pRBC x1 today - She has received a total of 5 units of pRBCs at [facility] and 1 unit previously at OSH. [...] Dispo: Continue inpatient care Dawit Amaya, MS4 [facility] Pager [phone] Associated attestation - Greg Edgar MD - [...] agreeable with our plans. Greg Edgar MD [employer] Division of Hospital Medicine Teaching Attending I [...] Intake/Output Summary (Last 24 hours) at 03/29/18 0703 Last data filed at 03/29/18 0410 Gross [...] Orthopaedic Attending: Tati Cage 1985 32 y.o. [id number] 03/29/2018 03/23/2018 6 Macie Torre MD Diagnosis(es): [...] to make a follow up appointment in [facility] 2 weeks with ORTHO ONCOLOGY, Odalys Stafford - (Sb and Jorge L) Adam Jean MD Pager: [phone] Dawit Amaya - 03/28/2018 1:33 PM PDTFormatting of this note may be different from t jorge luis lin. General Internal Medicine 1 Progress Note [...] in 4/5. Pathology Report from 03/24/18 left iehgj-ycw-zetl amputation site debridement: "A. Soft tissue, left [...] on 03/17/18. - Pt beingfollowed by onc [facility], appreciate recs. Dr. Sandra Patel is her primary oncologist . Oncology team will communicate with Dr. Patel. - Coordinating with onc and ortho regarding plan for timing of cycle 3 of chemotherapy, whi ch will need to be delayed to allow for healing after infection. # Pancytopenia # Oysyo-in-gwfdohq anemia Likely hypoproliferationin setting of recentsystemic chemotherapy and acute inflammatio n. Will continue to monitor and transfuse as needed, goal >7. - Hg 9.2 this morning. - She has received at total of 4 units of pRBCs at [facility] and 1 unit previously at OSH. [...] Dispo: Continue inpatient care Dawit Amaya, MS4 [facility] Pager [phone] Associated attestation - Greg Edgar MD - 03/28/2018 8:48 PM PDTGeneral Medicine Attending Progress Note Author: Greg Edgar MD Hospital Day # 5 PCP: Santo Gooden MD I personally interviewed the patient, performed the romero elements of the physical examinatio n, and personally formulated the assessment and plan with Dr Cornejo and Dawit Amaya. Plea se see GM progress note for additional details; [...] agreeable with our plans. Greg Edgar MD [facility] [facility] Division of Hospital Medicine Teaching Attending I [...] Orthopaedic Attending: Tati Cage 1985 32 y.o. [id number] 03/28/2018 03/23/2018 5 Macie Torre MD Diagnosis(es): left below-knee amputation stump infection Orthopaedic Procedure(s) & Date(s): 03/24/18: irrigation and debridement of left below-knee amputation stump, wound vac application 03/27/18: Irrigation, debridement, and revision of left below-knee amputation site, wound measuring 2 0 cm in length Assessment & Plan: Tati aCge is a 32 y.o.F with the diagnoses/procedures [...] to make a follow up appointment in [facility] 2 weeks with ORTHO ONCOLOGY, Odalys [...] edge. Junaid Burrell MD Orthopaedic Surgery, R3 [id number] 03/26/2018 Madiha Beckford DNP - 03/28/2018 12:15 [...] 25 mg 25 mg oral Q6H PRN vbgxpywhtdIYFKE-druavvaei-ACEBKH (SPECIAL MOUTHWASH) suspension (compound) 5 mL 5 [...] on file Social History Narrative Works in [employer] at a [employer] near [place]. No kids. Lives with her mother Rose. [...] appropri ate by primary care team. Madiha Rebollar, JUAN, CANINE SERVICE TEACHER-C [facility] [address] [place] [address] Lynda Basurto MD - 03/28/2018 8:06 AM [...] Ricardo Morales MD/PhD Anesthesiology CA-2 APS pager [phone] riley Sho - 03/27/2018 6:39 AM PDTFormatting of [...] neutropenia after c hemotherapy. # Pancytopenia # Qnhbp-vx-judwtdy anemia Likely hypoproliferation in setting of recentsystemic chemotherapy and acute inflammation . Will continue to monitor and transfuse as needed, goal >7. - Hg 8.0 this morning prior to procedure today, 7.4 after. EBL of 200 mL during procedure. - She has received at total of 4 units of pRBCs at [facility] and 1 unit previously at OSH. [...] on 03/17/18. - Pt beingfollowed by onc [facility], appreciate recs. Dr. Sandra Patel is [...] Dispo: Continue inpatient care Dawit Amaya, MS4 [facility] Pager [phone] Associated attestation - Greg Edgar MD - [...] agreeable with our plans. Greg Edgar MD [employer] Division of Hospital Medicine Teaching Attending I [...] units of pRBCs have been given at [facility], with 1 unit given at OSH. [...] returning to the [place]. # Pancytopenia # Otutk-hb-xrvuulv anemia Likely hypoproliferation in setting of recentsystemic chemotherapy and acute inflammation . No evidence of acute blood loss or hemolysis. Drainage from wound vac has been minimal. Wi ll continue to monitor and transfuse as needed, goal >7. - Hg improved to 9.2 today after an additional unit of pRBCs this morning. She has received at total of 4 units of pRBCs at [facility] and 1 unit previously at OSH. [...] 03/17/18. - Pt being followed by onc [facility], appreciate recs. Dr. Sandra Patel is [...] Dispo: Continue inpatient care Dawit Amaya, MS4 [facility] Pager [phone] Associated attestation - Greg Edgar MD - [...] agreeable with our plans. Greg Edgar MD [employer] Division of Hospital Medicine Teaching Attending I [...] Orthopaedic Attending: Tati Cage 1985 32 y.o. [id number] 03/26/2018 03/23/2018 3 Macie Torre MD Diagnosis(es): [...] to make a follow up appointment in [facility] 2 weeks with ORTHO ONCOLOGY, Odalys [...] edge. Junaid Burrell MD Orthopaedic Surgery, R3 [id number] 03/26/2018 Greg Edgar MD - 03/25/2018 9:59 [...] agreeable with our plans. Greg Edgar MD [employer] Division of Hospital Medicine Teaching Attending I [...] Orthopaedic Attending: Tati Cage 1985 32 y.o. [id number] 03/25/2018 03/23/2018 2 Macie Torre MD Diagnosis(es): [...] to make a follow up appointment in [facility] 2 weeks with ORTHO ONCOLOGY, Odalys [...] knee. Reflexes: not performed Sorin Aguirre MD [facility] Department of Orthopaedics & Rehabilitation [address] [place] [address] Mail Code: OP31 [facility] [address] Dawit Amaya Sho - 03/25/2018 7:30 AM [...] 03/17/18. - Pt being followed by onc [facility], appreciate recs. Dr. 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 Remainder of plan per her some recruiting intern note attached. Yves "Oc" MD Clemente [...] Events: - Irrigation and debridement of left ckwye-ssm-qrxo amputation stump followed by wound vac placement, [...] on 03/17/18. - Pt followed by onc [facility], who is seeing patient today - Per [...] Dispo: Continue inpatient care Dawit Amaya, MS4 [facility] Pager [phone] Burciaga MD,MPH - 03/24/2018 12:56 PM PDTFormatting of this note may be different from the original. INPATIENT BRIEF OPERATIVE NOTE Procedure Date: 03/24/2018 Author: TSERING BURCIAGA MD,MPH Attending Physician: Macie Torre MD Assistants: TSERING BURCIAGA MD,MPH, Jay Gonzalze MD Preoperative Diagnosis: left below-knee amputation stump [...] TSERING BURCIAGA MD,MPH PGY-5 Orthopaedic Surgery Pager: [phone] Rc Simpson MD - 03/24/2018 2:00 AM [...] Federico Simpson MD Orthopedic Surgery, R2 Pager [phone] in this encounter Plan of Treatment +--------+ + + + + | Date | Type | Specialty | Care Team | Description | +--------+ + + + + | 04/24/ | Appointment | Hematology & | Nurse, Hem Starter | | | 2017 | | Oncology | [address] [facility] | | | | | | [place] [address] | | +--------+ + + + + | 04/24/ | Office | Hematology & | Annie Gannon, | | | 2017 | Visit | Oncology | [facility] [address] | | | [address] | | | | | | [place], [place] | | | | | | [address] | | | | | | [phone] | | | | | | | | +--------+ + + + + | 04/24/ | Hospital | Adult Acute Care | Savanna Mari, | | | 2017 | Encounter | | MD [address] | | | | | | [facility] [place] | | | | | | [address] | | | | | | [phone] | | | | | | | [...] [address] | | | | | | [place], [place] | | | | | | [address] | | | | | | [phone] | | | | | | | [...] 03/23/2018 | + +--------+ + + | BRIE DIRECT | Routin | | One Time [...] | >60 | >60 mL/min | | [place] | | | + +---------+ + | EGFR NON | >60 | >60 mL/min | | -[place] | | | + +---------+ + | [...] | + + + | Blood | [facility]OR[facility], CORE [address] [facility] | | | [place] [address] | + + + + + | [...] | + + + | Blood | [facility], CORE [address] [place] [address] | | | [place] [address] | + + + MANUAL DIFFERENTIAL (04/01/2018 [...] | + + + | Blood | [facility], CORE [address] [facility] [address] | | | [place] [address] | + + + + + | [...] | + + + | Blood | [facility], CORE [address] [place] [address] | | | [place] [address] | + + + + + | [...] | + + + | Blood | [facility], CORE [address] [facility] | | | [place] [address] | + + + CBC, WITH DIFFERENTIAL [...] | ------ CBC AND AUTO | | DIFF[[id number]] Abnormal Final | | result MANUAL | | DIFFERENTIAL[[id number]] Abnormal Final | | result RBC | | MORPHOLOGY[[id number]] | | Final result Please view results [...] --------- | | ------ RETICULOCYTE | | COUNT[[id number]] Abnormal Final | | result Please view results for these tests on the | | individual orders. | + + CT LOWER EXTREMITY BILATERAL W CONTRAST (03/31/2018 5:09 PM) + + + | Specimen | Performing Laboratory | + + + | | [facility] RADIOLOGY VOICE RECOGNITION 2 | + [...] The patient has | | a left pxjzi-kzx-aqax amputation. A surgical drain is present at [...] administered. FINDINGS: The patient has a left mtapu-ekr-ivui amputation. A surgical | | drain is [...] Note | + + | Service Account, [employer] Interface - 03/31/2018 5:20 PM [...] | + + + | Blood | [facility], CORE [address] | | | [place] [address] | + + + + + | [...] | | ------ CBC (HEMOGRAM) | | ONLY[[id number]] Abnormal Final | | result Please view [...] | + + + | Blood | [facility], TRANSFUSION MEDICINE [address] [place] [address] | | | [place] [address] | + + + COMPLETE METABOLIC SET [...] | >60 | >60 mL/min | | [place] | | | + +---------+ + | EGFR NON | >60 | >60 mL/min | | -[place] | | | + +---------+ + | [...] | + + + | Blood | [facility] LABORATORY [facility], CORE [address] [facility] | | | [place] [address] | + + + + + | [...] | + + + | Blood | [facility], CORE [address] | | | [place] [address] | + + + + + | [...] | + + + | Blood | [facility], TRANSFUSION MEDICINE [address] [facility] | | | [place] [address] | + + + HAPTOGLOBIN (03/31/2018 11:33 AM) + +-------+ + | Component | Value | Ref Range | + +-------+ + | HAPTOGLOBIN | 187 | 30 - 200 mg/dL | + +-------+ + + + + | Specimen | Performing Laboratory | + + + | Blood | [facility], CORE [address] [facility] | | | [place] [address] | + + + LDH TOTAL, PLASMA [...] | + + + | Blood | [facility], CORE [address] [facility] | | | [place] [address] | + + + PRODUCT - RED CELLS LEUKOREDUCED (03/31/2018 5:58 AM) + + + + | Component | Value | Ref Range | + + + + | PRODUCT DESCRIPTION | -1 RED BLOOD CELL ADENINE-SALINE ADDED | | | | LEUKOCYTE | | + + + + | PRODUCT UNIT # | [id number] | | + + + + | UNIT ABO | A | | + + + + | UNIT RH | POS | | + + + + | STATUS OF UNIT | Presumed Transfused | | + + + + | EXPIRATION DATE | [id number] | | + + + + | BLOOD TYPE BARCODE | 6200 | | + + + + | BLOOD PRODUCT CODE | [id number] | | + + + + + + + | Specimen | Performing Laboratory | + + + | | [facility], TRANSFUSION MEDICINE [address] | | | [place] [address] | + + + PRODUCT - RED CELLS LEUKOREDUCED (03/31/2018 5:58 AM) + + + + | Component | Value | Ref Range | + + + + | PRODUCT DESCRIPTION | -1 RED BLOOD CELL ADENINE-SALINE ADDED | | | | LEUKOCYTE | | + + + + | PRODUCT UNIT # | [id number] | | + + + + | UNIT ABO | A | | + + + + | UNIT RH | POS | | + + + + | STATUS OF UNIT | Presumed Transfused | | + + + + | EXPIRATION DATE | [id number] | | + + + + | BLOOD TYPE BARCODE | 6200 | | + + + + | BLOOD PRODUCT CODE | [id number] | | + + + + + + + | Specimen | Performing Laboratory | + + + | | [facility], TRANSFUSION MEDICINE [address] [place] [address] | | | [place] [address] | + + + PRODUCT - RED CELLS LEUKOREDUCED (03/31/2018 5:58 AM) + + + + | Component | Value | Ref Range | + + + + | PRODUCT DESCRIPTION | -1 RED BLOOD CELL ADENINE-SALINE ADDED | | | | LEUKOCYTE | | + + + + | PRODUCT UNIT # | [id number] | | + + + + | UNIT ABO | A | | + + + + | UNIT RH | POS | | + + + + | STATUS OF UNIT | Returned to Blood Bank | | + + + + | EXPIRATION DATE | [id number] | | + + + + | BLOOD TYPE BARCODE | 6200 | | + + + + | BLOOD PRODUCT CODE | [id number] | | + + + + + + + | Specimen | Performing Laboratory | + + + | | [facility], TRANSFUSION MEDICINE [address] [place] [address] | | | [place] [address] | + + + MANUAL DIFFERENTIAL (03/31/2018 [...] | + + + | Blood | [facility], CORE [address] [facility] | | | [place] [address] | + + + + + | [...] | + + + | Blood | [facility], CORE [address] [facility] | | | [place] [address] | + + + + + | Narrative | + + | New reference ranges for MCV, MCHC, PLT, IG% and IG# effective 01/09/2018 | + + HANNAH ADD ON (03/31/2018 4:53 AM) + + + | Specimen | Performing Laboratory | + + + | Blood | | + + + + + | Narrative | + + | The following orders were created for panel order DIFFERENTIAL, ADD ON. | | Procedure | | Abnormality Status | | --------- | | ------ DIFFERENTIAL, | | ADD ON[[id number]] Final | | result MANUAL | | DIFFERENTIAL[[id number]] Abnormal Final | | result Please view [...] | + + + | Blood | [facility], [facility] [address] [facility] | | | [place] [address] | + + + + + | [...] | >60 | >60 mL/min | | [place] | | | + +---------+ + | EGFR NON | >60 | >60 mL/min | | -[place] | | | + +---------+ + | [...] | + + + | Blood | [facility], CORE [address] [facility] | | | [place] [address] | + + + + + | [...] | | ------ CBC (HEMOGRAM) | | ONLY[[id number]] Abnormal Final | | result Please view [...] | + + + | Blood | [facility], CORE [address] [facility] | | | [place] [address] | + + + CAPILLARY BLOOD GLUCOSE [...] [address] | | | [place] [address] | + + + CBC (HEMOGRAM) ONLY [...] | + + + | Blood | [facility], CORE [address] | | | [place] [address] | + + + + + | [...] | >60 | >60 mL/min | | [place] | | | + +---------+ + | EGFR NON | >60 | >60 mL/min | | -[place] | | | + +---------+ + | [...] | + + + | Blood | [facility], [facility] [address] | | | [place] [address] | + + + + + | [...] | | ------ CBC (HEMOGRAM) | | ONLY[[id number]] Abnormal Final | | result Please view [...] | + + + | Blood | [facility], CORE [address] [facility] | | | [place] [address] | + + + + + | [...] | | ------ CBC (HEMOGRAM) | | ONLY[[id number]] Abnormal Final | | result Please view [...] | + + + | Blood | [facility], TRANSFUSION MEDICINE [address] [place] [address] | | | [place] [address] | + + + ABO & RH [...] | + + + | Blood | [facility] SERVICES, TRANSFUSION MEDICINE [address] [place] [address] | | | [place] [address] | + + + TYPE AND SCREEN [...] | ------ ABO & RH | | TYPE[[id number]] F | | inal result ANTIBODY | | SCREEN[[id number]] Fin | | al result Please view [...] + + | PRODUCT UNIT # | [id number] | | + + + + | UNIT ABO | A | | + + + + | UNIT RH | POS | | + + + + | STATUS OF UNIT | Presumed Transfused | | + + + + | EXPIRATION DATE | [id number] | | + + + + | BLOOD TYPE BARCODE | 6200 | | + + + + | BLOOD PRODUCT CODE | [id number] | | + + + + + + + | Specimen | Performing Laboratory | + + + | | [facility] SERVICES, TRANSFUSION MEDICINE [address] [place] [address] | | | [place] [address] | + + + CAPILLARY BLOOD GLUCOSE (NO CHG), POC (03/29/2018 12:12 PM) + +-------+ + | Component | Value | Ref Range | + +-------+ + | BLOOD GLUCOSE, POC | 87 | 70 - 99 mg/dL | + +-------+ + + + + | Specimen | Performing Laboratory | + + + | | [facility] [address] | | | [place] [address] | + + + CBC (HEMOGRAM) ONLY [...] | + + + | Blood | [facility], [facility] [address] [facility] | | | [place] [address] | + + + + + | [...] | | ------ CBC (HEMOGRAM) | | ONLY[[id number]] Abnormal Final | | result Please view [...] | >60 | >60 mL/min | | [place] | | | + +---------+ + | EGFR NON | >60 | >60 mL/min | | -[place] | | | + +---------+ + | [...] | + + + | Blood | [facility], [address] | | | [place] [address] | + + + + + | [...] | + + + | Blood | [facility], CORE [address] | | | [place] [address] | + + + + + | [...] | + + + | Blood | [facility], CORE [address] [facility] | | | [place] [address] | + + + CBC AND AUTO [...] | + + + | Blood | [facility] LABORATORY [facility], [facility] [address] [facility] [address] | | | [place] [address] | + + + + + | [...] | ------ CBC AND AUTO | | DIFF[[id number]] Abnormal Final | | result RBC | | MORPHOLOGY[[id number]] | | Final result Please view results [...] | >60 | >60 mL/min | | [place] | | | + + + + | EGFR NON | >60 | >60 mL/min | | -[place] | | | + + + + [...] | + + + | Blood | [facility]ORY [facility], CORE [address] | | | [place] [address] | + + + + + | [...] | + + + | Blood | [facility], CORE [address] [place] [address] | | | [place] [address] | + + + + + | [...] | | ------ CBC (HEMOGRAM) | | ONLY[[id number]] Abnormal Final | | result Please view results for these tests on the | | individual orders. | + + OPERATION RECORD (03/27/2018 12:10 PM) + + | Procedure Note | + + | Lynda Basurto MD - 03/27/2018 12:10 PM PDT Date of Service: 03/27/2018 | | Attending Surgeon: Lynda Basurto MD Tank Systems Maintainer(s): Odalys | | Mike Stafford PA-C. Please note no other qualified assistant construction superintendent was available. | | Preoperative Diagnosis: Infected [...] closure of the fascia. This was a 10-[place] | | channel drain. Please note, the [...] 03/27/2018 | | 11:18:37DT: 03/27/2018 12:10:06Job #: [id number] | + + CAPILLARY BLOOD GLUCOSE (NO CHG), POC (03/27/2018 12:06 PM) + +---------+ + | Component | Value | Ref Range | + +---------+ + | BLOOD GLUCOSE, POC | 125 (H) | 70 - 99 mg/dL | + +---------+ + + + + | Specimen | Performing Laboratory | + + + | | [facility] [address] | | | [place] [address] | + + + PROCEDURE NOTE (03/27/2018 [...] [address] | | | [place] [address] | + + + CULTURE, TISSUE (03/27/2018 10:27 AM) + + + + | Component | Value | Ref Range | + + + + | CULTURE RESULT | Escherichia coli (A) | | + + + + + + + | Specimen | Performing Laboratory | + + + | Tissue - Leg | [facility] [address] [place], [place] | | | [address] | + + + + + | [...] - Leg | [facility] [place] [address] [place], [place] | | | [address] | + + + + + | [...] - Leg | [facility] [place] [address] [place], [place] | | | [address] | + + + + + | [...] + + | Tissue - Leg | [facility] [address] [place], [place] | | | [address] | + + + + + | [...] + + | Tissue - Leg | [facility] [address] [place], [place] | | | [address] | + + + + + | [...] [address] | | | [place] [address] | + + + RBC MORPHOLOGY (03/27/2018 3:56 AM) + +---------+ + | Component | Value | Ref Range | + +---------+ + | DOHLE BODIES | Present | | + +---------+ + | TOXIC GRANULATION | Present | | + +---------+ + + + + | Specimen | Performing Laboratory | + + + | Blood | [facility], CORE [address] [facility] | | | [place] [address] | + + + MANUAL DIFFERENTIAL (03/27/2018 [...] | + + + | Blood | [facility], CORE [address] [place] [address] RD | | | [place] [address] | + + + + + | [...] | + + + | Blood | [facility], CORE [address] [facility] | | | [place] [address] | + + + + + | [...] | >60 | >60 mL/min | | [place] | | | + +---------+ + | EGFR NON | >60 | >60 mL/min | | -[place] | | | + +---------+ + | [...] Hemo | | + +---------+ + | JAKEI T CMNT | No Hemo | | + +---------+ + | AST CMNT | No Hemo | | + +---------+ + + + + | Specimen | Performing Laboratory | + + + | Blood | [facility], CORE [address] [facility] | | | [place] [address] | + + + + + | [...] | ------ CBC AND AUTO | | DIFF[[id number]] Abnormal Final | | result MANUAL | | DIFFERENTIAL[[id number]] Abnormal Final | | result RBC | | MORPHOLOGY[[id number]] | | Final result Please view results [...] | + + + | Blood | [facility], CORE [address] [facility] | | | [place] [address] | + + + + + | [...] | | ------ CBC (HEMOGRAM) | | ONLY[[id number]] Abnormal Final | | result Please view [...] | + + + | Blood | [facility], CORE [address] [facility] | | | [place] [address] | + + + COMPLETE METABOLIC SET [...] | >60 | >60 mL/min | | [place] | | | + +---------+ + | EGFR NON | >60 | >60 mL/min | | -[place] | | | + +---------+ + | [...] | + + + | Blood | [facility], CORE [address] [facility] | | | [place] [address] | + + + + + | [...] + + | PRODUCT UNIT # | [id number] | | + + + + | UNIT ABO | A | | + + + + | UNIT RH | POS | | + + + + | STATUS OF UNIT | Presumed Transfused | | + + + + | EXPIRATION DATE | [id number] | | + + + + | BLOOD TYPE BARCODE | 6200 | | + + + + | BLOOD PRODUCT CODE | [id number] | | + + + + + + + | Specimen | Performing Laboratory | + + + | | [facility], [facility] MEDICINE [address] [facility] | | | [place] [address] | + + + VANCOMYCIN, TROUGH (03/26/2018 1:30 AM) + + + + | Component | Value | Ref Range | + + + + | VANCOMYCIN, TROUGH | 20.3 (H) | 10.0 - 20.0 ug/mL | + + + + + + + | Specimen | Performing Laboratory | + + + | Blood | [facility], CORE [address] [place] [address] | | | [place] [address] | + + + CBC (HEMOGRAM) ONLY [...] | + + + | Blood | [facility], CORE [address] [facility] | | | [place] [address] | + + + + + | [...] | | ------ CBC (HEMOGRAM) | | ONLY[[id number]] Abnormal Final | | result Please view [...] + + | PRODUCT UNIT # | [id number] | | + + + + | UNIT ABO | A | | + + + + | UNIT RH | POS | | + + + + | STATUS OF UNIT | Returned to Blood Bank | | + + + + | EXPIRATION DATE | [id number] | | + + + + | BLOOD TYPE BARCODE | 6200 | | + + + + | BLOOD PRODUCT CODE | [id number] | | + + + + + + + | Specimen | Performing Laboratory | + + + | | [facility], TRANSFUSION MEDICINE [address] [facility] | | | [place] [address] | + + + RBC MORPHOLOGY (03/25/2018 6:03 PM) + +---------+ + | Component | Value | Ref Range | + +---------+ + | DOHLE BODIES | Present | | + +---------+ + | TOXIC GRANULATION | Present | | + +---------+ + + + + | Specimen | Performing Laboratory | + + + | Blood | [facility], CORE [address] [facility] [address] | | | [place], [place] [address] | + + + MANUAL DIFFERENTIAL (03/25/2018 [...] | + + + | Blood | [facility], CORE [address] [facility] | | | [place] [address] | + + + + + | [...] | + + + | Blood | [facility], CORE [address] [facility] | | | [place], [place] [address] | + + + RETICULOCYTE COUNT, BLOOD [...] --------- | | ------ RETICULOCYTE | | COUNT[[id number]] Abnormal Final | | result Please view [...] | + + + | Blood | [facility], CORE [address] | | | [place] [address] | + + + + + | [...] | ------ CBC AND AUTO | | DIFF[[id number]] Abnormal Final | | result MANUAL | | DIFFERENTIAL[[id number]] Abnormal Final | | result RBC | | MORPHOLOGY[[id number]] | | Final result Please view results [...] | + + + | Blood | [facility], CORE [address] [place] [address] | | | [place] [address] | + + + CBC AND AUTO [...] | + + + | Blood | [facility], CORE [address] [facility] | | | [place] [address] | + + + + + | [...] | >60 | >60 mL/min | | [place] | | | + +---------+ + | EGFR NON | >60 | >60 mL/min | | -[place] | | | + +---------+ + | [...] Hemo | | + +---------+ + | JAKEI T CMNT | No Hemo | | + +---------+ + | AST CMNT | No Hemo | | + +---------+ + + + + | Specimen | Performing Laboratory | + + + | Blood | [facility], [place] [address] | | | [place] [address] | + + + + + | [...] | ------ CBC AND AUTO | | DIFF[[id number]] Abnormal Final | | result RBC | | MORPHOLOGY[[id number]] | | Final result Please view results [...] + + | PRODUCT UNIT # | [id number] | | + + + + | UNIT ABO | A | | + + + + | UNIT RH | POS | | + + + + | STATUS OF UNIT | Presumed Transfused | | + + + + | EXPIRATION DATE | [id number] | | + + + + | BLOOD TYPE BARCODE | 6200 | | + + + + | BLOOD PRODUCT CODE | [id number] | | + + + + + + + | Specimen | Performing Laboratory | + + + | | [facility] SERVICES, TRANSFUSION MEDICINE [address] [place] [address] | | | [place] [address] | + + + RBC MORPHOLOGY (03/25/2018 [...] | + + + | Blood | [facility], CORE [address] [place] [address] | | | [place] [address] | + + + MANUAL DIFFERENTIAL (03/25/2018 [...] | + + + | Blood | [facility], CORE [address] [facility] [address] | | | [place] [address] | + + + + + | [...] | + + + | Blood | [facility], CORE [address] [facility] | | | [place] [address] | + + + + + | [...] | ------ CBC AND AUTO | | DIFF[[id number]] Abnormal Final | | result MANUAL | | DIFFERENTIAL[[id number]] Abnormal Final | | result RBC | | MORPHOLOGY[[id number]] | | Final result Please view results [...] | + + + | Blood | [facility], CORE [address] [facility] [address] | | | [place] [address] | + + + + + | Narrative | + + | Please draw Vancomycin trough immediately before the next dose. (~1630) Thank you! | + + DEBRIDEMENT OF BELOW KNEE AMPUTATION STUMP (03/24/2018 1:31 PM) + + | Narrative | + + | Macie Torre MD 03/24/2018 1:49 PM [facility] | | DEPARTMENT OF ORTHOPAEDICS & REHABILITATION OPERATIVE REPORT | | Patient Name: Tati | | Rhea Cage Date of : 1985 Contract | | Serial Number:: [id number] Report Author: MACIE TORRE MD Procedure Date: | | 03/24/2018 Attending Physician: 1. MACIE TORRE MD Tank Systems Maintainer(s): | | 1. Tsering Burciaga MD Preoperative [...] muscle and fascia. Wound size | | [id number] after tacking back fascia Application of VAC [...] | | sponge in the remaining wound [id number]. Excellent seal was attained. The | | [...] discharge: plan for return to [place] on [facility] MACIE TORRE MD 03/24/2018, | | 1:33 [...] [address] | | | [place] [address] | + + + SURGICAL PATHOLOGY (03/24/2018 [...] characteristics determined | | | | by [employer]. It has not been | | | [...] + + | Tissue - Leg | [facility] DEPARTMENT OF PATHOLOGY [address] [facility] | | | [place] [address] | + + + CULTURE, TISSUE (03/24/2018 [...] + + | Tissue - Leg | [facility] [address] [place], [place] | | | [address] | + + + + + | [...] + + | Tissue - Leg | [facility] [address] [place] [address] | | | [address] | + + + + + | [...] + + | Tissue - Leg | [facility] [address] [place], [place] | | | [address] | + + + + + | [...] - Leg | [facility] [place] [address] [place], [place] | | | [address] | + + + + + | [...] + + | Tissue - Leg | [facility] [place] [address] [place], [place] | | | [address] | + + + + + | [...] + + | PRODUCT UNIT # | [id number] | | + + + + | UNIT ABO | A | | + + + + | UNIT RH | NEG | | + + + + | STATUS OF UNIT | Presumed Transfused | | + + + + | EXPIRATION DATE | [id number] | | + + + + | BLOOD TYPE BARCODE | 0600 | | + + + + | BLOOD PRODUCT CODE | [id number] | | + + + + + + + | Specimen | Performing Laboratory | + + + | | [facility], TRANSFUSION MEDICINE [address] [place] [address] | | | [place] [address] | + + + PRODUCT - RED CELLS LEUKOREDUCED (03/24/2018 9:15 AM) + + + + | Component | Value | Ref Range | + + + + | PRODUCT DESCRIPTION | -1 RED BLOOD CELL ADENINE-SALINE ADDED | | | | LEUKOCYTE | | + + + + | PRODUCT UNIT # | [id number] | | + + + + | UNIT ABO | A | | + + + + | UNIT RH | POS | | + + + + | STATUS OF UNIT | Presumed Transfused | | + + + + | EXPIRATION DATE | [id number] | | + + + + | BLOOD TYPE BARCODE | 6200 | | + + + + | BLOOD PRODUCT CODE | [id number] | | + + + + + + + | Specimen | Performing Laboratory | + + + | | [facility] LABORATORY SERVICES, TRANSFUSION MEDICINE [address] | | | [place] [address] | + + + PRODUCT - RED CELLS LEUKOREDUCED (03/24/2018 9:15 AM) + + + + | Component | Value | Ref Range | + + + + | PRODUCT DESCRIPTION | -1 RED BLOOD CELL ADENINE-SALINE ADDED | | | | LEUKOCYTE | | + + + + | PRODUCT UNIT # | [id number] | | + + + + | UNIT ABO | A | | + + + + | UNIT RH | POS | | + + + + | STATUS OF UNIT | Presumed Transfused | | + + + + | EXPIRATION DATE | [id number] | | + + + + | BLOOD TYPE BARCODE | 6200 | | + + + + | BLOOD PRODUCT CODE | [id number] | | + + + + + + + | Specimen | Performing Laboratory | + + + | | [facility] LABOR[facility] SERVICES, TRANSFUSION MEDICINE [address] | | | [place] [address] | + + + RBC MORPHOLOGY (03/24/2018 [...] | + + + | Blood | [facility], CORE [address] [place] [address] | | | [place] [address] | + + + MANUAL DIFFERENTIAL (03/24/2018 [...] | + + + | Blood | [facility], CORE [address] [place] [address] | | | [place] [address] | + + + + + | [...] | + + + | Blood | [facility] SERVICES, CORE [address] [facility] | | | [place] [address] | + + + + + | [...] | >60 | >60 mL/min | | [place] | | | + +---------+ + | EGFR NON | >60 | >60 mL/min | | -[place] | | | + +---------+ + | [...] | + + + | Blood | [facility]OR[facility] SERVICES, CORE [address] | | | [place] [address] | + + + + + | [...] | ------ CBC AND AUTO | | DIFF[[id number]] Abnormal Final | | result MANUAL | | DIFFERENTIAL[[id number]] Abnormal Final | | result RBC | | MORPHOLOGY[[id number]] | | Final result Please view results [...] | + + + | Blood | [facility], CORE [address] [facility] | | | [place] [address] | + + + + + | [...] | | ------ CBC (HEMOGRAM) | | ONLY[[id number]] Abnormal Final | | result Please view [...] + + | PRODUCT UNIT # | [id number] | | + + + + | UNIT ABO | A | | + + + + | UNIT RH | POS | | + + + + | STATUS OF UNIT | Presumed Transfused | | + + + + | EXPIRATION DATE | [id number] | | + + + + | BLOOD TYPE BARCODE | 6200 | | + + + + | BLOOD PRODUCT CODE | [id number] | | + + + + + + + | Specimen | Performing Laboratory | + + + | | [facility]AT[facility] SERVICES, TRANSFUSION MEDICINE [address] [facility] | | | [place] [address] | + + + C-REACTIVE PROTEIN (03/23/2018 4:44 PM) + + + + | Component | Value | Ref Range | + + + + | C-REACTIVE PROTEIN | 166.0 (H) | <10.0 mg/L | + + + + + + + | Specimen | Performing Laboratory | + + + | Blood | [facility] LABORATORY SERVICES, CORE [address] | | | [facility] [place] [address] | + + + + + | [...] | + + + | Blood | [facility], CORE [address] [place] [address] | | | [place] [address] | + + + D-DIMER, (PE OR DIC) (03/23/2018 4:44 PM) + + + + | Component | Value | Ref Range | + + + + | D-DIMER (PE OR DIC) | 0.62 (H) | <0.50 ug/mLFEU | + + + + + + + | Specimen | Performing Laboratory | + + + | Blood | [facility] LABORATORY SERVICES, CORE [address] [facility] | | | [place], [place] [address] | + + + + + | [...] | + + + | Blood | [facility] LABORATORY SERVICES, CORE [address] [facility] | | | [place] [address] | + + + + + | [...] | + + + | Blood | [facility] LABORATORY SERVICES, CORE [address] [facility] | | | [place] [address] | + + + COMPLETE METABOLIC SET [...] | >60 | >60 mL/min | | [place] | | | + +---------+ + | EGFR NON | >60 | >60 mL/min | | -[place] | | | + +---------+ + | [...] | + + + | Blood | [facility], CORE [address] [facility] | | | [place] [address] | + + + + + | [...] | + + + | Blood | [facility] LABORATORY SERVICES, CORE [address] [place] [address] | | | [place] [address] | + + + RETICULOCYTE COUNT (03/23/2018 [...] | + + + | Blood | [facility] SERVICES, CORE [address] [facility] | | | [place] [address] | + + + RETICULOCYTE COUNT, BLOOD [...] --------- | | ------ RETICULOCYTE | | COUNT[[id number]] Abnormal Final | | result Please view [...] | + + + | Blood | [facility] LABORATORY SERVICES, TRANSFUSION MEDICINE [address] [facility] | | | [place] [address] | + + + CBC AND AUTO [...] | + + + | Blood | [facility], CORE [address] [facility] | | | [place] [address] | + + + + + | [...] | + + + | Blood | [facility], TRANSFUSION MEDICINE [address] [place] [address] | | | [place] [address] | + + + SEDIMENTATION RATE (03/23/2018 4:41 PM) + +---------+ + | Component | Value | Ref Range | + +---------+ + | SEDIMENTATION RATE | 102 (H) | 0 - 20 mm/hr | + +---------+ + + + + | Specimen | Performing Laboratory | + + + | Blood | [facility], CORE [address] [facility] | | | [place] [address] | + + + + + | [...] | ------ CBC AND AUTO | | DIFF[[id number]] Abnormal Final | | result RBC | | MORPHOLOGY[[id number]] | | Final result Please view results [...] | + + + | Blood | [facility] LABORATORY SERVICES, CORE [address] [facility] | | | [place] [address] | + + + CULTURE, BLOOD BACTI [...] ------ CULTURE, BLOOD | | BACTI & Y...[[id number]] Final | | result Please view results [...] + + | Blood - Antecubital | [facility] LABORATORY SERVICES, CORE [address] | | - left | [place] [address] | + + + CULTURE, BLOOD BACTI [...] ------ CULTURE, BLOOD | | BACTI & Y...[[id number]] Final | | result Please view results for these tests on the | | individual orders. | + + X-RAY KNEE 2 VIEWS LEFT (03/23/2018 3:55 PM) + + + | Specimen | Performing Laboratory | + + + | | [facility] RADIOLOGY VOICE RECOGNITION 2 | + [...] | + +---+ | | | | [id number] | | | (SPECIAL MOUTHWASH) suspension | [...] | | | 2142, Until Sat04/01/18 at 2200, | | | | | | | [...] | | | | | | Until Sat04/01/18 at 2200, skin | | | | | | [...] NaCl 0.9 % irrigation | Given | | 1,000 mL | | Left Leg | | INTRAPROCEDURE PRN, Starting Mon | | 8 12:05 | | | | | 03/24/18 at 1205, Until Mon | | PDT | | [...] | | | | | 1500, Until 04/01/18 at 2201, | | | | | [...]
--- OUTSIDE RECORDS SUMMARY | ~2018-04-16 | XMS | Encounter Summary ---
Demographics + + + | Address | [address] | | | [place] [address] | + + + | Home Phone [...] Providers + +------+ + | [employer] Name | Role | Phone | [...] | | 2017 | | [facility] | | | | | | [address] | | | | | | Mailcode: CH7M | | | | | | [facility] | | | | | | and Healing, [address] | | | | | | Floor [place], [place] | | | | | | [address] | | | | | | [phone] | | | +--------+ + + + [...] Road | | | | | | [place] [address] | | +--------+ + + + + | 04/24/ | Office | Hematology & | Annie Gannon, | | | 2017 | Visit | Oncology | ROME,[employer] ADVISOR [address] | | | | | [address] | | | | | | [place], [place] | | | | | | [address] | | | | | | [phone] | | | | | | | | +--------+ + + + + | 04/24/ | Hospital | Adult Acute Care | Savanna Mari, | | | 2017 | Encounter | | MD [address]ena [address] | | | | | | [place], [place] | | | | | | [address] | | | | | | [phone] | | | | | | | [...] | | | | | | [place], [place] | | | | | | [address] | | | | | | [phone] | | | | | | | | +--------+ + + + + as of this encounter Visit Diagnoses Not on filein this encounter"
--- OUTSIDE RECORDS SUMMARY | ~2018-04-16 | XMS | Encounter Summary ---
Demographics + + + | Address | [address] | | | [place] [address] | + + + | Home Phone [...] Providers + +------+ + | Care Health Record Technician Name | Role | Phone | + +------+ + | Santo Gooden MD | PCP | | + +------+ + Encounter Details +--------+ + + + + | Date | Type | Department | Care Team | Description | +--------+ + + + + | 02/05/ | Pharmacy | [facility] | | | | 2018 | Visit | & [facility] | | | | | | [address] | | | | | | [place], [place] | | | | | | [address] | | | | | | [phone] | | | +--------+ + + + [...] 2018 | | Oncology | [address] [facility] | | | | | | [place] [address] | | +--------+ + + + + | 04/24/ | Office | Hematology & | Annie Gannon, | | | 2018 | Visit | Oncology | [facility] [address] | | | | | [address] | | | | | | CENTER [place], [place] | | | | | | [address] | | | | | | [phone] | | | | | | | | +--------+ + + + + | 04/24/ | Hospital | Adult Acute Care | Savanna Mari, | | | 2017 | Encounter | | [address] | | | | | | [place], [place] | | | | | | [address] | | | | | | [phone] | | | | | | | [...] [address] | | | | | | [place], [place] | | | | | | [address] | | | | | | [phone] | | | | | | | | +--------+ + + + + as of this encounter Visit Diagnoses Not on filein this encounter"
--- OUTSIDE RECORDS SUMMARY | ~2018-04-16 | XMS | Encounter Summary ---
Demographics + + + | Address | [address] | | | [place] [address] | + + + | Home Phone | | + + + | Preferred Language | Unknown | + + + | Marital Status | Single | + + + | Latter-Day Affiliation | CAT | + + + | Race | Unknown | + + + | Ethnic Group | Not or | + + + Author + + + | Author | [facility] | + + + | Organization | [facility] | + + + | Address | Unknown | + + + | Phone | Unavailable | + + + Support + + +---------+ + | Name | Relationship | Address | Phone | + + +---------+ + | ROSE BOWENS | ECON | Unknown | | + + +---------+ + Care Team Providers + +------+ + | Care Production Aide Name | Role | Phone | [...] (Work release | | 2018 | | [facility] [address] | [address] [facility] | letter) | | | | [place] Mailcode: [id number] | [address] | | | | | [facility] | [place], [place] | | | | | and [facility] | [address] | | | | | Floor [place], [place] | [phone] | | | | | [address] | | | | | | [phone] | | | +--------+ + + + [...] [address] | | | | | | [place] [address] | | +--------+ + + + + | 04/24/ | Office | Hematology & | Annie Gannon, | | | 2017 | Visit | Oncology | AGASHANAE,COMMUNITY EDUCATION COORDINATOR [address] | | [address] | | [address] | | | | | | [place], [place] | | | | | | [address] | | | | | | [phone] | | | | | | | | +--------+ + + + + | 04/24/ | Hospital | Adult Acute Care | Savanna Mari, | | | 2017 | Encounter | | [address] | | | | | | [place], [place] | | | | | | [address] | | | | | | [phone] | | | | | | | [...] | | | | | | [place], [place] | | | | | | [address] | | | | | | [phone] | | | | | | | | +--------+ + + + + as of this encounter Visit Diagnoses Not on filein this encounter"
--- OUTSIDE RECORDS SUMMARY | ~2018-04-16 | XMS | Encounter Summary ---
Demographics + + + | Address | [address] | | | [place] [address] | + + + | Home Phone [...] Team Providers + +------+ + | Care Logistics Technician Name | Role | Phone | [...] | | for [facility] | [place], [place] | | | | | [address] | [address] | | | | | Mailcode: CH7N | [phone] | | | | | [facility] | | | | | | and [facility], | | | | | | Floor [place], [place] | | | | | | [address] | | | | | | [phone] | | | +--------+---------+ + + + [...] Sandra Patel MD - 04/09/2018 3:10 PM PDTFormatting of this note may be different from th e original. Display Progress Note in MyChart: Yes [facility] - ESTABLISHED PATIENT - RETURN VISIT Date: 04/09/2018 Name: Tati Cage : 1985 Home Town: [place], [place] Referring Physician: Sb Diagnosis: high risk [...] medial midfoot renetta rning for malignancy. Dr Basurot obtained a biopsy on 01/15/18. Pathology consistent [...] hours. Indications: os teomyelitis Miscellaneous Medical Supply mis, Bedside commode for nighttime use following foot [...] perfused. No edema. Neurologic - Awake, alert. air defence officer grossly intact. Affect/Psych - Appropriate. ECOG - [...] to 3 cycles total Sandra Patel MD [facility] Hematology/Oncology [facility] Cancer [place] Multidisciplinary Sarcoma Programin this encounter Plan of Treatment +--------+ + + + + | Date | Type | Specialty | Care Team | Description | +--------+ + + + + | 04/24/ | Appointment | Hematology & | Nurse, Hem Starter | | | 2017 | | Oncology | [address] | | | | | | [place] [address] | | +--------+ + + + + | 04/24/ | Office | Hematology & | Annie Gannon, | | | 2018 | Visit | Oncology | AGADEVYNP,OVEN WORKER [address] | | | | | [address] | | | | | | [place], [place] | | | | | | [address] | | | | | | [phone] | | | | | | | | +--------+ + + + + | 04/24/ | Hospital | Adult Acute Care | Savanna Mari, | | | 2017 | Encounter | | [address] | | | | | | [place], [place] | | | | | | [address] | | | | | | [phone] | | | | | | | [...] | | | [facility], [place] | | | | | | [address] | | | | | | [phone] | | | | | | | | +--------+ + + + + as of this encounter Visit Diagnoses + + | Diagnosis | + + | Synovial sarcoma (HCC) - Primary | + + | 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
--- OUTSIDE RECORDS SUMMARY | ~2018-04-16 | XMS | Encounter Summary ---
Demographics + + + | Address | [address] | | | [place] [address] | + + + | Home Phone [...] Team Providers + +------+ + | Care Cable Rigger Name | Role | Phone | + [...] | [address] | [facility] | | | | [facility] | [place], [place] | and labs) | | | | [address] | [address] | | | | | Mailcode: [facility] | [phone] | | | | | [facility] | | | | | | and Healing, [facility] | | | | | | Floor [place], [place] | | | | | | [address] | | | | | | [phone] | | | +--------+ + + + [...] [address] | | | | | | [place] [address] | | +--------+ + + + + | 04/24/ | Office | Hematology & | Annie Gannon, | | | 2017 | Visit | Oncology | ROME,SPECIAL AGENT [employer] [address] | | | | | [address] | | | | | | [place], [place] | | | | | | [address] | | | | | | [phone] | | | | | | | | +--------+ + + + + | 04/24/ | Hospital | Adult Acute Care | Savanna Mari, | | | 2017 | Encounter | | MD [address] | | | | | | [place], [place] | | | | | | [address] | | | | | | [phone] | | | | | | | [...] [address] | | | | | | [place], [place] | | | | | | [address] | | | | | | [phone] | | | | | | | [...]
--- OUTSIDE RECORDS SUMMARY | ~2018-04-16 | XMS | Encounter Summary ---
Demographics + + + | Address | [address] | | | [place] [address] | + + + | Home Phone [...] Team Providers + +------+ + | Care Bar And Filler Assembler Name | Role | Phone | + +------+ + | Santo Gooden MD | PCP | | + +------+ + Encounter Details +--------+ + + + + | Date | Type | Department | Care Team | Description | +--------+ + + + + | 02/17/ | Pharmacy | [facility] | | | | 2018 | Visit | & Healing Pharmacy | | | | | | [address] | | | | | | [place], [place] | | | | | | [address] | | | | | | [phone] | | | +--------+ + + + [...] 2017 | | Oncology | [address] [facility] | | | | | | [place] [address] | | +--------+ + + + + | 04/24/ | Office | Hematology & | Annie Gannon, | | | 2018 | Visit | Oncology | AGASHANAE,FOOD AND DRUG RESEARCH SCIENTIST [address] | | | | | | [address] | | | | | | [place], [place] | | | | | | [address] | | | | | | [phone] | | | | | | | | +--------+ + + + + | 04/24/ | Hospital | Adult Acute Care | Savanna Mari, | | | 2017 | Encounter | | [address] | | | | | | [place], [place] | | | | | | [address] | | | | | | [phone] | | | | | | | [...] [place] | | | | | | [address] | | | | | | [phone] | | | | | | | | +--------+ + + + + as of this encounter Visit Diagnoses Not on filein this encounter"
--- OUTSIDE RECORDS SUMMARY | ~2018-04-16 | XMS | Encounter Summary ---
Demographics + + + | Address | [address] | | | [place] [address] | + + + | Home Phone [...] Team Providers + +------+ + | Care Covering Machine Tender Name | Role | Phone [...] | | 2018 | | [facility] at [place] | [address] | | | | | for [facility] | [place], [place] | | | | | [address] | [address] | | | | | Mailcode: [facility] | [phone] | | | | | [facility] | | | | | | and Healing, 7th | | | | | | Floor [place], [place] | | | | | | [address] | | | | | | [phone] | | | +--------+ + + + [...] Road | | | | | | [place] [address] | | +--------+ + + + + | 04/24/ | Office | Hematology & | Annie Gannon, | | | 2017 | Visit | Oncology | ROME,HOT CAR OPERATOR [address] | | | | | [address] | | | | | | [place], [place] | | | | | | [address] | | | | | | [phone] | | | | | | | | +--------+ + + + + | 04/24/ | Hospital | Adult Acute Care | Savanna Mari, | | | 2017 | Encounter | | [address] | | | | | | [place], [place] | | | | | | [address] | | | | | | [phone] | | | | | | | [...] [place] | | | | | | [address] | | | | | | [phone] | | | | | | | | +--------+ + + + + as of this encounter Visit Diagnoses Not on filein this encounter"
--- OUTSIDE RECORDS SUMMARY | ~2018-04-16 | XMS | Encounter Summary ---
Demographics + + + | Address | [address] | | | [place] [address] | + + + | Home Phone [...] Providers + +------+ + | Care Garbage Collector Name | Role | Phone | + [...] | 2018 | on | Oncology at [place] | | | | | | for [facility]aling | | | | | | [address] | | | | | | Mailcode: CH7M | | | | | | [facility] | | | | | | and , | | | | | | Floor [place], [place] | | | | | | [address] | | | | | | [phone] | | | +--------+ + + + [...] Road | | | | | | [place] [address] | | +--------+ + + + + | 04/24/ | Office | Hematology & | Annie Gannon, | | | 2017 | Visit | Oncology | SIERRA TUCSONDEVYN,WEB PRESS OPERATOR APPRENTICE [address] | | | | | | [address] | | | | | | [place], [place] | | | | | | [address] | | | | | | [phone] | | | | | | | | +--------+ + + + + | 04/24/ | Hospital | Adult Acute Care | Savanna Mari, | | | 2017 | Encounter | | [address] | | | | | | [place], [place] | | | | | | [address] | | | | | | [phone] | | | | | | | [...] [address] | | | | | | [place], [place] | | | | | | [address] | | | | | | [phone] | | | | | | | | +--------+ + + + + as of this encounter Visit Diagnoses Not on filein this encounter"
--- OUTSIDE RECORDS SUMMARY | ~2018-04-16 | XMS | Encounter Summary ---
Demographics + + + | Address | [address] | | | [place] [address] | + + + | Home Phone [...] Team Providers + +------+ + | Care Trimmer Operator Three Knife Name | Role | Phone | + [...] BKA STUMP | | 2017 | | [facility] | MD [address] | | | | | Admitting Desk | [place], [place] | | | | | Located on the | [address] | | | | | floor [address] [facility] | [phone] | | | | | [facility] | | | | | | [place], [place] | | | | | | [address] | | | +--------+---------+ + + + [...] (absolute retic 194,000) Normal haptoglobin Negative direct Bire Elevated fibrinogen Na: 148 at peak, 140 upon discharge Imaging: CT Abdomen and Pelvis with IV Contrast, 03/31/18: Unremarkable, no e/o hemorrhage CT Lower Extremities with IV Contrast, 03/31/18: No CT e/o osteomyelitis, hematoma, or absce ss Outstanding or Pending Labs/Studies: Plan for repeat CBC and reticulocyte count on 04/04/18 a [facility]. Appointments: Future Appointments Provider Department Dept Phone Center 04/09/2018 2:00 PM Hem Starter Nurse Hematology/Medical Oncology at [facility] [phone] HemOnc 04/09/2018 3:10 PM Sandra Patel Hematology/Medical Oncology at [place] [address] [phone] [place] 04/09/2018 3:40 PM Lynda Basurto [facility] Orthopaedics & Rehabilitation [phone] [place] Discharge condition: Fair Discharge destination (If [...] anxiety (1st line nausea/vomiting). Miscellaneous Medical Supply [facility] Commonly known as: Miscellaneous Medical Supply Bedside [...] 25 mg Tab Commonly known as: HYDRODIURIL Seqgulkme-Hvalbfgmc-Or-Mag-Sim [phone] mg/30 mL Mwsh Commonly known as: FIRST-MOUTHWASH [...] room air Abdominal: nontender, non-distended, obese Skin: Chamisal, warm, well-perfused, no ecchymoses Extremities: LLE ixivg-uso-fxaa amputation site dressed in compression wrap. Drain [...] MD I spent more than 36 minutes rdds-vb-qufu with the patient of which greater than 50% was sp ent counseling the patient coordinating care. in this encounter Discharge Instructions Rashida Thompson RN - 04/01/2018In order to receive services for line care and lab work at [facility] Out Patient Infusion/Day Surgery: you will first need to be seen by an MD (with stephane cortez at [facility] Walk in clinic). Please go in to [facility] to see an MD prior to your Saturday04/04/2018 [facility] for your [...] line | | | | | | ([facility]) | nausea/vomiting). | | | | [...] for | | | | | | ([facility]) | nausea/vomiting). | | | | [...] soon | | | | | | ([facility]) | and do not combine | [...] line | | | | | | ([facility]) | agent for acute or | [...] Orthopaedic Attending: Tati Cage 1985 32 y.o. [id number] [id number] 04/01/2018 03/23/2018 9 Macie Torre MD Diagnosis(es): [...] to make a follow up appointment in [facility] 2 weeks with ORTHO ONCOLOGY, Odalys Stafford - (Adela) Junaid Burrell MD Orthopaedic Surgery, R3 [id number] 03/31/2018 Cesia Foster NP - 04/01/2018 12:14 PM PDTFormatting of this note may be different from t he original. Orthopaedic Surgery Progress Note Patient: /Age: MRN: CSN: Date: Admission Date: Hospital Day: Orthopaedic Attending: Tati Cage 1985 32 y.o. [id number] 04/01/2018 03/23/2018 9 Macie Torre MD Diagnosis(es): [...] infection or alberto inage. Cesia Foster NP [facility] [address] [place], [place] [phone] Lynda Basurto MD - 04/01/2018 11:49 AM [...] consulted, see above plan # Pancytopenia # Hwjhc-zm-wzyqkrl anemia Pt's WBC and platelets have recovered, [...] and hemat ology workup. Dawit Amaya, MS4 [facility] [place] [phone] Associated attestation - Greg Edgar MD - [...] agreeable with our plans. Greg Edgar MD Neurophysiology Tech Division of Hospital Medicine Teaching Attending I spent 37 minutes in the care of this patient, >50% engaged in bedside counseling or coord ination of care with orthopedics, anesthesia pain service.Bela Holt MD - 018 9:28 AM PDTPt weaned off PNB. Catheter pulled. Tip intact. Coag status normal prior to removal of catheter. APS will sign-off. Please pg APS [phone] with questions/concerns. Bela Holt MD APS # [id number] Lynda Basurto MD - 03/31/2018 9:14 AM [...] Orthopaedic Attending: Tati Cage 1985 32 y.o. [phone] 03/31/2018 03/23/2018 8 Macie Torre MD Diagnosis(es): [...] to make a follow up appointment in [facility] 2 weeks with ORTHO ONCOLOGY, Odalys Stafford - (Sb and Jorge L) Junaid Burrell MD Orthopaedic Surgery, R3 [id number] 03/31/2018 Cesia Gaitan MD - 03/30/2018 4:51 PM PDTAPS Clarification Note; Tonight the continuous rate on the nerve block will be to 0 ml/hr and bolus only will be in place. Catheter will be pulled Saturday morning. Cesia Gaitan MD [facility] [address] [facility], 4th Floor Mail Code: CH4P [place], [place] [address] Rafael Shell MD - 03/30/2018 4:35 PM [...] on 03/17/18. - Pt beingfollowed by onc [facility], appreciate recs. Dr. Sadnra Patel is her primary oncologist and she will have follow up on 04/09 to discuss cycle 3 planning. # mild LE edema Suspect due to IVF. - compression stocking to RLE. - will consider lasix # Pancytopenia # Avegp-bw-louefvf anemia Likely hypoproliferationin setting of recentsystemic chemotherapy and acute inflammatio n. Will continue to monitor and transfuse as needed, goal >7. - She has received a total of 5 units of pRBCs at [facility] and 1 unit previously at [facility]SH. - [...] Rafael Suleman PGY-2 Internal Medicine Pager # [phone] Associated attestation - Greg Edgar MD - [...] agreeable with our plans. Greg Edgar MD Neurophysiology Tech Division of Hospital Medicine Teaching Attending I [...] 25 mg 25 mg oral Q6H PRN dmnspstdsuQGDCI-srneoykqc-MFDSAC (SPECIAL MOUTHWASH) suspension (compound) 5 mL 5 [...] 25 mg 25 mg oral Q6H PRN uimcivlbrbDSSJM-swvazxvci-CKADSE (SPECIAL MOUTHWASH) suspension (compound) 5 mL 5 [...] Orthopaedic Attending: Tati Cage 1985 32 y.o. [phone] 03/30/2018 03/23/2018 7 Macie Torre MD Diagnosis(es): [...] to make a follow up appointment in [facility] 2 weeks with ORTHO ONCOLOGY, Odalys Stafford - (Sb and Jorge L) Adam Jean MD Pager: [phone] Dawit Amaya - 03/29/2018 4:46 PM PDTFormatting [...] on 03/17/18. - Pt beingfollowed by onc [facility], appreciate recs. Dr. Sandra Patel is her primary oncologist . Oncology team communicating with Dr. Patel. - Coordinating with onc and ortho regarding plan for timing of cycle 3 of chemotherapy, whi ch will need to be delayed to allow for healing after infection. # Pancytopenia # Ygbcp-yy-vyjcwox anemia Likely hypoproliferationin setting of recentsystemic chemotherapy and acute inflammatio n. Will continue to monitor and transfuse as needed, goal >7. - Hg 6.8 this morning --> pRBC x1 today - She has received a total of 5 units of pRBCs at [facility] and 1 unit previously at [facility]SH. - [...] Dispo: Continue inpatient care Dawit Amaya, MS4 [facility] Pager [phone] Associated attestation - Greg Edgar MD - [...] agreeable with our plans. Greg Edgar MD Neurophysiology Tech Division of Hospital Medicine Teaching Attending I [...] Intake/Output Summary (Last 24 hours) at 03/29/18 0725 Last data filed at 03/29/18 0410 Gross [...] Orthopaedic Attending: Tati Cage 1985 32 y.o. [id number] 03/29/2018 03/23/2018 6 Macie Torre MD Diagnosis(es): [...] to make a follow up appointment in [facility] 2 weeks with ORTHO ONCOLOGY, Odalys Stafford - (Sb and Jorge L) Adam Jean MD Pager: [phone] Dawit Amaya - 03/28/2018 1:33 PM PDTFormatting [...] in 4/5. Pathology Report from 03/24/18 left qcfrm-nyx-lgxg amputation site debridement: "A. Soft tissue, left [...] on 03/17/18. - Pt beingfollowed by onc [facility], appreciate recs. Dr. Sandra Patel is her primary oncologist . Oncology team will communicate with Dr. Patel. - Coordinating with onc and ortho regarding plan for timing of cycle 3 of chemotherapy, whi ch will need to be delayed to allow for healing after infection. # Pancytopenia # Xtgej-rw-stoifly anemia Likely hypoproliferationin setting of recentsystemic chemotherapy and acute inflammatio n. Will continue to monitor and transfuse as needed, goal >7. - Hg 9.2 this morning. - She has received at total of 4 units of pRBCs at [facility] and 1 unit previously at [facility]. - [...] Dispo: Continue inpatient care Dawit Amaya, MS4 [facility] Pager [phone] Associated attestation - Greg Edgar MD - [...] agreeable with our plans. Greg Edgar MD Neurophysiology Tech Division of Hospital Medicine Teaching Attending I [...] Orthopaedic Attending: Tati Cage 1985 32 y.o. [phone] [id number] 03/28/2018 03/23/2018 5 Macie Torre MD Diagnosis(es): [...] to make a follow up appointment [facility] 2 weeks with ORTHO ONCOLOGY, Odalys [...] edge. Junaid Burrell MD Orthopaedic Surgery, R3 [id number] 03/26/2018 Madiha Beckford DNP - 03/28/2018 12:15 [...] 25 mg 25 mg oral Q6H PRN fmkumqyjhkXZPQN-wpdawnhme-GHQLCW (SPECIAL MOUTHWASH) suspension (compound) 5 mL 5 [...] on file Social History Narrative Works in [email or web address] at a [employer] near [place]. No kids. Lives with her mother Rose. [...] by primary care team. Madiha Rebollar, JUAN, KOSHER SEALER-C [facility] [address] [place] [address] Lynda Basurto MD - 03/28/2018 8:06 AM [...] Ricardo Morales MD/PhD Anesthesiology CA-2 APS pager [phone] riley Sho - 03/27/2018 6:39 AM PDTFormatting [...] adjacent to bone). Drain placed prior to akleb sure of fascia, and skin VAC was [...] neutropenia after c hemotherapy. # Pancytopenia # Osjwf-lv-cmnzopr anemia Likely hypoproliferation in setting of recentsystemic chemotherapy and acute inflammation . Will continue to monitor and transfuse as needed, goal >7. - Hg 8.0 this morning prior to procedure today, 7.4 after. EBL of 200 mL during procedure. - She has received at total of 4 units of pRBCs at [facility] and 1 unit previously at [facility]. - [...] on 03/17/18. - Pt beingfollowed by onc [facility], appreciate recs. Dr. Sandra Patel is her [...] Dispo: Continue inpatient care Dawit Amaya, MS4 [facility] Pager [phone] Associated attestation - Greg Edgar MD - 03/28/2018 11:52 AM PDTGeneral Medicine Attending Progress Note Author: Greg Edgar MD Hospital Day # 5 PCP: Santo Gooden MD I personally interviewed the patient, performed the romero elements of the physical examinatio n, and personally formulated the assessment and plan with Dr Cornejo and Dawit Amyaa MS IV . Please see progress note [...] agreeable with our plans. Greg Edgar MD Neurophysiology Tech Division of Hospital Medicine Teaching Attending I [...] units of pRBCs have been given at [facility], with 1 unit given at OSH. Current [...] returning to the OR. # Pancytopenia # Ocqjy-ei-wffkeme anemia Likely hypoproliferation in setting of recentsystemic chemotherapy and acute inflammation . No evidence of acute blood loss or hemolysis. Drainage from wound vac has been minimal. Wi ll continue to monitor and transfuse as needed, goal >7. - Hg improved to 9.2 today after an additional unit of pRBCs this morning. She has received at total of 4 units of pRBCs at [facility] and 1 unit previously at [facility]. - [...] 03/17/18. - Pt being followed by onc [facility], appreciate recs. Dr. Sandra Patel is her [...] Dispo: Continue inpatient care Dawit Amaya, MS4 [facility] Pager [phone] Associated attestation - Greg Edgar MD - [...] agreeable with our plans. Greg Edgar MD Neurophysiology Tech Division of Hospital Medicine Teaching Attending I [...] Orthopaedic Attending: Tati Cage 1985 32 y.o. [phone] [id number] 03/26/2018 03/23/2018 3 Macie Torre MD Diagnosis(es): [...] to make a follow up appointment in [facility] 2 weeks with ORTHO ONCOLOGY, Odalys [...] edge. Junaid Burrell MD Orthopaedic Surgery, R3 [id number] 03/26/2018 Greg Edgar MD - 03/25/2018 9:59 [...] agreeable with our plans. Greg Edgar MD Neurophysiology Tech Division of Hospital Medicine Teaching Attending I [...] Orthopaedic Attending: Tati Cage 1985 32 y.o. [phone] 03/25/2018 03/23/2018 2 Macie Torre MD Diagnosis(es): [...] to make a follow up appointment in [facility] 2 weeks with ORTHO ONCOLOGY, Odalys [...] knee. Reflexes: not performed Sorin Aguirre MD [facility] [place] Department of Orthopaedics & Rehabilitation [address] [place] [address] Mail Code: OP31 [facility] [id number] Dawit Amaya Sho - 03/25/2018 7:30 AM [...] 03/17/18. - Pt being followed by onc [facility], appreciate recs. Dr. 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 Remainder of plan per her some physician/internist note attached. Yves "Oc" MD [facility] Internal [...] Events: - Irrigation and debridement of left qnwoj-tli-qube amputation stump followed by wound vac placement, [...] on 03/17/18. - Pt followed by onc [facility], who is seeing patient today - Per [...] Dispo: Continue inpatient care Dawit Amaya, MS4 [facility] Pager [phone] Burciaga MD,MPH - 03/24/2018 12:56 PM PDTFormatting [...] TSERING BURCIAGA MD,MPH PGY-5 Orthopaedic Surgery Pager: [phone] Rc Simpson MD - 03/24/2018 2:00 AM [...] Federico Simpson MD Orthopedic Surgery, R2 Pager [phone] in this encounter Plan of Treatment +--------+ + + + + | Date | Type | Specialty | Care Team | Description | +--------+ + + + + | 04/24/ | Appointment | Hematology & | Nurse, Hem Starter | | | 2017 | | Oncology | [address] [facility] | | | | | | [place] [address] | | +--------+ + + + + | 04/24/ | Office | Hematology & | Annie Gannon, | | | 2017 | Visit | Oncology | [facility] [address] | | [address] | | | | | | [place], [place] | | | | | | [address] | | | | | | [phone] | | | | | | | | +--------+ + + + + | 04/24/ | Hospital | Adult Acute Care | Savanna Mari, | | | 2017 | Encounter | | MD [address] | | | | | | [facility] [place] | | | | | | [address] | | | | | | [phone] | | | | | | | [...] [address] | | | | | | [place], [place] | | | | | | [address] | | | | | | [phone] | | | | | | | [...] | >60 | >60 mL/min | | QATARI | | | + +---------+ + | EGFR NON | >60 | >60 mL/min | | -QATARI | | | + +---------+ + | [...] | + + + | Blood | [facility] LABORATORY SERVICES, CORE [address] [facility] | | | [place] [address] | + + + + + | [...] | + + + | Blood | [facility], CORE [address] [place] [address] | | | [place] [address] | + + + MANUAL DIFFERENTIAL (04/01/2018 [...] | + + + | Blood | [facility]OR[facility]ORY SERVICES, CORE [address] [facility] [address] | | | [place] [address] | + + + + + | [...] | + + + | Blood | [facility]ORY SERVICES, CORE [address] [place] [address] | | | [place] [address] | + + + + + | [...] | + + + | Blood | [facility], CORE [address] [facility] | | | [place] [address] | + + + CBC, WITH DIFFERENTIAL [...] | ------ CBC AND AUTO | | DIFF[[id number]] Abnormal Final | | result MANUAL | | DIFFERENTIAL[[id number]] Abnormal Final | | result RBC | | MORPHOLOGY[[id number]] | | Final result Please view results [...] --------- | | ------ RETICULOCYTE | | COUNT[[id number]] Abnormal Final | | result Please view results for these tests on the | | individual orders. | + + CT LOWER EXTREMITY BILATERAL W CONTRAST (03/31/2018 5:09 PM) + + + | Specimen | Performing Laboratory | + + + | | [facility] RADIOLOGY VOICE RECOGNITION 2 | + + [...] The patient has | | a left whuqe-ytl-gvfq amputation. A surgical drain is present at [...] administered. FINDINGS: The patient has a left kufya-bto-gbwo amputation. A surgical | | drain is [...] Note | + + | Service Account, RadiIunika Res In Interface - 03/31/2018 5:20 PM [...] | + + + | Blood | [facility]OR[facility]ORY SERVICES, CORE [address] | | | [place] [address] | + + + + + | [...] | | ------ CBC (HEMOGRAM) | | ONLY[[id number]] Abnormal Final | | result Please view [...] | + + + | Blood | [facility] LABORATORY SERVICES, TRANSFUSION MEDICINE [address] [place] [address] | | | [place] [address] | + + + COMPLETE METABOLIC SET [...] | >60 | >60 mL/min | | QATARI | | | + +---------+ + | EGFR NON | >60 | >60 mL/min | | -QATARI | | | + +---------+ + | [...] | + + + | Blood | [facility] LABORATORY [facility], CORE [address] | | | [place] [address] | + + + + + | [...] | + + + | Blood | [facility]OR[facility]ORY SERVICES, CORE [address] | | | [place] [address] | + + + + + | [...] | + + + | Blood | [facility]ORATORY SERVICES, TRANSFUSION MEDICINE [address] [facility] | | | [place] [address] | + + + HAPTOGLOBIN (03/31/2018 11:33 AM) + +-------+ + | Component | Value | Ref Range | + +-------+ + | HAPTOGLOBIN | 187 | 30 - 200 mg/dL | + +-------+ + + + + | Specimen | Performing Laboratory | + + + | Blood | [facility], CORE [address] | | | [place] [address] | + + + LDH TOTAL, PLASMA [...] | + + + | Blood | [facility], CORE [address] | | | [place] [address] | + + + PRODUCT - RED CELLS LEUKOREDUCED (03/31/2018 5:58 AM) + + + + | Component | Value | Ref Range | + + + + | PRODUCT DESCRIPTION | -1 RED BLOOD CELL ADENINE-SALINE ADDED | | | | LEUKOCYTE | | + + + + | PRODUCT UNIT # | [id number] | | + + + + | UNIT ABO | A | | + + + + | UNIT RH | POS | | + + + + | STATUS OF UNIT | Presumed Transfused | | + + + + | EXPIRATION DATE | [id number] | | + + + + | BLOOD TYPE BARCODE | 6200 | | + + + + | BLOOD PRODUCT CODE | [id number] | | + + + + + + + | Specimen | Performing Laboratory | + + + | | [facility]OR[facility]ORY SERVICES, TRANSFUSION MEDICINE [address] | | | [place] [address] | + + + PRODUCT - RED CELLS LEUKOREDUCED (03/31/2018 5:58 AM) + + + + | Component | Value | Ref Range | + + + + | PRODUCT DESCRIPTION | -1 RED BLOOD CELL ADENINE-SALINE ADDED | | | | LEUKOCYTE | | + + + + | PRODUCT UNIT # | [id number] | | + + + + | UNIT ABO | A | | + + + + | UNIT RH | POS | | + + + + | STATUS OF UNIT | Presumed Transfused | | + + + + | EXPIRATION DATE | [id number] | | + + + + | BLOOD TYPE BARCODE | 6200 | | + + + + | BLOOD PRODUCT CODE | [id number] | | + + + + + + + | Specimen | Performing Laboratory | + + + | | [facility], TRANSFUSION MEDICINE [address] [place] [address] | | | [place] [address] | + + + PRODUCT - RED CELLS LEUKOREDUCED (03/31/2018 5:58 AM) + + + + | Component | Value | Ref Range | + + + + | PRODUCT DESCRIPTION | -1 RED BLOOD CELL ADENINE-SALINE ADDED | | | | LEUKOCYTE | | + + + + | PRODUCT UNIT # | [id number] | | + + + + | UNIT ABO | A | | + + + + | UNIT RH | POS | | + + + + | STATUS OF UNIT | Returned to Blood Bank | | + + + + | EXPIRATION DATE | [id number] | | + + + + | BLOOD TYPE BARCODE | 6200 | | + + + + | BLOOD PRODUCT CODE | [id number] | | + + + + + + + | Specimen | Performing Laboratory | + + + | | [facility], TRANSFUSION MEDICINE [address] [place] [address] | | | [place] [address] | + + + MANUAL DIFFERENTIAL (03/31/2018 [...] | + + + | Blood | [facility] LABORATORY [facility], CORE [address] | | | [place] [address] | + + + + + | [...] | + + + | Blood | [facility], CORE [address] | | | [place] [address] | + + + + + | [...] | | ------ DIFFERENTIAL, | | ADD ON[[id number]] Final | | result MANUAL | | DIFFERENTIAL[[id number]] Abnormal Final | | result Please view [...] | + + + | Blood | [facility]ORY SERVICES, [facility] [address] | | | [place] [address] | + + + + + | [...] | >60 | >60 mL/min | | QATARI | | | + +---------+ + | EGFR NON | >60 | >60 mL/min | | -QATARI | | | + +---------+ + | [...] | + + + | Blood | [facility], CORE [address] | | | [place] [address] | + + + + + | [...] | | ------ CBC (HEMOGRAM) | | ONLY[[id number]] Abnormal Final | | result Please view [...] | + + + | Blood | [facility] SERVICES, CORE [address] [facility] | | | [place] [address] | + + + CAPILLARY BLOOD GLUCOSE [...] [address] | | | [place] [address] | + + + CBC (HEMOGRAM) ONLY [...] | + + + | Blood | [facility], CORE [address] | | | [place] [address] | + + + + + | [...] | >60 | >60 mL/min | | QATARI | | | + +---------+ + | EGFR NON | >60 | >60 mL/min | | -QATARI | | | + +---------+ + | [...] | + + + | Blood | [facility] LABORATORY [facility] [address] | | | [place] [address] | + + + + + | [...] | | ------ CBC (HEMOGRAM) | | ONLY[[id number]] Abnormal Final | | result Please view [...] | + + + | Blood | [facility] SERVICES, CORE [address] | | | [place] [address] | + + + + + | [...] | | ------ CBC (HEMOGRAM) | | ONLY[[id number]] Abnormal Final | | result Please view [...] | + + + | Blood | [facility]ORY SERVICES, TRANSF[facility]ION MEDICINE [address] [place] [address] | | | [place] [address] | + + + ABO & RH [...] | + + + | Blood | [facility], TRANSFUSION MEDICINE [address] [place] [address] | | | [place] [address] | + + + TYPE AND SCREEN [...] | ------ ABO & RH | | TYPE[[id number]] F | | inal result ANTIBODY | | SCREEN[[id number]] Fin | | al result Please view [...] + + | PRODUCT UNIT # | [id number] | | + + + + | UNIT ABO | A | | + + + + | UNIT RH | POS | | + + + + | STATUS OF UNIT | Presumed Transfused | | + + + + | EXPIRATION DATE | [id number] | | + + + + | BLOOD TYPE BARCODE | 6200 | | + + + + | BLOOD PRODUCT CODE | [id number] | | + + + + + + + | Specimen | Performing Laboratory | + + + | | [facility] SERVICES, [facility]SF[facility]ION MEDICINE [address] [place] [address] | | | [place] [address] | + + + CAPILLARY BLOOD GLUCOSE [...] [address] | | | [place] [address] | + + + CBC (HEMOGRAM) ONLY [...] | + + + | Blood | [facility], [facility] [address] | | | [place] [address] | + + + + + | [...] | | ------ CBC (HEMOGRAM) | | ONLY[[id number]] Abnormal Final | | result Please view [...] | >60 | >60 mL/min | | QATARI | | | + +---------+ + | EGFR NON | >60 | >60 mL/min | | -QATARI | | | + +---------+ + | [...] | + + + | Blood | [facility], [address] | | | [place] [address] | + + + + + | [...] | + + + | Blood | [facility], CORE [address] | | | [place] [address] | + + + + + | [...] | + + + | Blood | [facility], CORE [address] | | | [place] [address] | + + + CBC AND AUTO [...] | + + + | Blood | [facility] [address] | | | [place] [address] | + + + + + | [...] | ------ CBC AND AUTO | | DIFF[[id number]] Abnormal Final | | result RBC | | MORPHOLOGY[[id number]] | | Final result Please view results [...] | >60 | >60 mL/min | | QATARI | | | + + + + | EGFR NON | >60 | >60 mL/min | | -QATARI | | | + + + + [...] | + + + | Blood | [facility], CORE [address] | | | [place] [address] | + + + + + | [...] | + + + | Blood | [facility], CORE [address] [place] [address] | | | [place] [address] | + + + + + | [...] | | ------ CBC (HEMOGRAM) | | ONLY[[id number]] Abnormal Final | | result Please view results for these tests on the | | individual orders. | + + OPERATION RECORD (03/27/2018 12:10 PM) + + | Procedure Note | + + | Lynda Basurto MD - 03/27/2018 12:10 PM PDT Date of Service: 03/27/2018 | | Attending Surgeon: Lynda Basurto MD Supervisor Fireworks Assembly(s): Odalys | | Mike Stafford PA-C. Please note no other qualified family practice physician assistant was available. | | Preoperative Diagnosis: [...] closure of the fascia. This was a 10-Malawian | | channel drain. Please note, the [...] 03/27/2018 | | 11:18:37DT: 03/27/2018 12:10:06Job #: [id number] | + + CAPILLARY BLOOD GLUCOSE (NO [...] [address] | | | [place] [address] | + + + PROCEDURE NOTE (03/27/2018 [...] [address] | | | [place] [address] | + + + CULTURE, TISSUE (03/27/2018 10:27 AM) + + + + | Component | Value | Ref Range | + + + + | CULTURE RESULT | Escherichia coli (A) | | + + + + + + + | Specimen | Performing Laboratory | + + + | Tissue - Leg | [facility] [address] [place], [place] | | | [address] | + + + + + | [...] Leg | [facility] [place] [address] [place], [place] | | | [address] | + + + + + | [...] - Leg | [facility] [place] [address], [place] | | | [address] | + + + + + | [...] + + | Tissue - Leg | [facility] [address] [place], [place] | | | [address] | + + + + + | [...] + + | Tissue - Leg | [facility] [address] [place], [place] | | | [address] | + + + + + | [...] [address] | | | [place] [address] | + + + RBC MORPHOLOGY (03/27/2018 3:56 AM) + +---------+ + | Component | Value | Ref Range | + +---------+ + | DOHLE BODIES | Present | | + +---------+ + | TOXIC GRANULATION | Present | | + +---------+ + + + + | Specimen | Performing Laboratory | + + + | Blood | [facility], CORE [address] | | | [place] [address] | + + + MANUAL DIFFERENTIAL (03/27/2018 [...] | + + + | Blood | [facility], CORE [address] [place] [address] RD | | | [place] [address] | + + + + + | [...] | + + + | Blood | [facility], CORE [address] | | | [place] [address] | + + + + + | [...] | >60 | >60 mL/min | | QATARI | | | + +---------+ + | EGFR NON | >60 | >60 mL/min | | -QATARI | | | + +---------+ + | [...] | + + + | Blood | [facility], CORE [address] | | | [place] [address] | + + + + + | [...] | ------ CBC AND AUTO | | DIFF[[id number]] Abnormal Final | | result MANUAL | | DIFFERENTIAL[[id number]] Abnormal Final | | result RBC | | MORPHOLOGY[[id number]] | | Final result Please view results [...] | + + + | Blood | [facility], CORE [address] | | | [place] [address] | + + + + + | [...] | | ------ CBC (HEMOGRAM) | | ONLY[[id number]] Abnormal Final | | result Please view [...] | + + + | Blood | [facility], CORE [address] | | | [place] [address] | + + + COMPLETE METABOLIC SET [...] | >60 | >60 mL/min | | QATARI | | | + +---------+ + | EGFR NON | >60 | >60 mL/min | | -QATARI | | | + +---------+ + | [...] | + + + | Blood | [facility], CORE [address] | | | [place] [address] | + + + + + | [...] + + | PRODUCT UNIT # | [id number] | | + + + + | UNIT ABO | A | | + + + + | UNIT RH | POS | | + + + + | STATUS OF UNIT | Presumed Transfused | | + + + + | EXPIRATION DATE | [id number] | | + + + + | BLOOD TYPE BARCODE | 6200 | | + + + + | BLOOD PRODUCT CODE | [id number] | | + + + + + + + | Specimen | Performing Laboratory | + + + | | [facility], [facility] [address] [facility] | | | [place] [address] | + + + VANCOMYCIN, TROUGH (03/26/2018 1:30 AM) + + + + | Component | Value | Ref Range | + + + + | VANCOMYCIN, TROUGH | 20.3 (H) | 10.0 - 20.0 ug/mL | + + + + + + + | Specimen | Performing Laboratory | + + + | Blood | [facility], [address] [address] [place] [address] | | | [place] [address] | + + + CBC (HEMOGRAM) ONLY [...] | + + + | Blood | [facility], CORE [address] | | | [place] [address] | + + + + + | [...] | | ------ CBC (HEMOGRAM) | | ONLY[[id number]] Abnormal Final | | result Please view [...] + + | PRODUCT UNIT # | [id number] | | + + + + | UNIT ABO | A | | + + + + | UNIT RH | POS | | + + + + | STATUS OF UNIT | Returned to Blood Bank | | + + + + | EXPIRATION DATE | [id number] | | + + + + | BLOOD TYPE BARCODE | 6200 | | + + + + | BLOOD PRODUCT CODE | [id number] | | + + + + + + + | Specimen | Performing Laboratory | + + + | | [facility], [facility] [address] [facility] | | | [place] [address] | + + + RBC MORPHOLOGY (03/25/2018 6:03 PM) + +---------+ + | Component | Value | Ref Range | + +---------+ + | DOHLE BODIES | Present | | + +---------+ + | TOXIC GRANULATION | Present | | + +---------+ + + + + | Specimen | Performing Laboratory | + + + | Blood | [facility], CORE [address] [facility] [address] | | | [place], [place] [address] | + + + MANUAL DIFFERENTIAL (03/25/2018 [...] | + + + | Blood | [facility], CORE [address] | | | [place] [address] | + + + + + | [...] | + + + | Blood | [facility], CORE [address] | | | [place], [place] [address] | + + + RETICULOCYTE COUNT, BLOOD [...] --------- | | ------ RETICULOCYTE | | COUNT[[id number]] Abnormal Final | | result Please view [...] | + + + | Blood | [facility], CORE [address] | | | [place] [address] | + + + + + | [...] | ------ CBC AND AUTO | | DIFF[[id number]] Abnormal Final | | result MANUAL | | DIFFERENTIAL[[id number]] Abnormal Final | | result RBC | | MORPHOLOGY[[id number]] | | Final result Please view results [...] | + + + | Blood | [facility], C[place] [address] [place] [address] | | | [place] [address] | + + + CBC AND AUTO [...] | + + + | Blood | [facility], CORE [address] | | | [place] [address] | + + + + + | [...] | >60 | >60 mL/min | | QATARI | | | + +---------+ + | EGFR NON | >60 | >60 mL/min | | -QATARI | | | + +---------+ + | [...] | + + + | Blood | [facility], [place] [address] | | | [place] [address] | + + + + + | [...] | ------ CBC AND AUTO | | DIFF[[id number]] Abnormal Final | | result RBC | | MORPHOLOGY[[id number]] | | Final result Please view results [...] + + | PRODUCT UNIT # | [id number] | | + + + + | UNIT ABO | A | | + + + + | UNIT RH | POS | | + + + + | STATUS OF UNIT | Presumed Transfused | | + + + + | EXPIRATION DATE | [id number] | | + + + + | BLOOD TYPE BARCODE | 6200 | | + + + + | BLOOD PRODUCT CODE | [id number] | | + + + + + + + | Specimen | Performing Laboratory | + + + | | [facility], [facility]IC[facility] [address] [place] [address] | | | [place] [address] | + + + RBC MORPHOLOGY (03/25/2018 [...] | + + + | Blood | [facility], CORE [address] [place] [address] | | | [place] [address] | + + + MANUAL DIFFERENTIAL (03/25/2018 [...] | + + + | Blood | [facility], CORE [address] [facility] [address] | | | [place] [address] | + + + + + | [...] | + + + | Blood | [facility], CORE [address] | | | [place] [address] | + + + + + | [...] | ------ CBC AND AUTO | | DIFF[[id number]] Abnormal Final | | result MANUAL | | DIFFERENTIAL[[id number]] Abnormal Final | | result RBC | | MORPHOLOGY[[id number]] | | Final result Please view results [...] | + + + | Blood | [facility], CORE [address] [address] | | | [place] [address] | + + + + + | Narrative | + + | Please draw Vancomycin trough immediately before the next dose. (~1630) Thank you! | + + DEBRIDEMENT OF BELOW KNEE AMPUTATION STUMP (03/24/2018 1:31 PM) + + | Narrative | + + | Macie Torre MD 03/24/2018 1:49 PM [facility] | | DEPARTMENT OF ORTHOPAEDICS & REHABILITATION OPERATIVE REPORT | | Patient Name: Tati | | Rhea Cage Date of : 1985 Contract | | Serial Number:: [id number] Report Author: MACIE TORRE MD Procedure Date: | | 03/24/2018 Attending Physician: 1. MACIE TORRE MD Supervisor Fireworks Assembly(s): | | 1. Tsering Burcaiga MD Preoperative Diagnosis(es): 1. Left BKA stump [...] muscle and fascia. Wound size | | [id number] after tacking back fascia Application of VAC [...] | | sponge in the remaining wound [id number]. Excellent seal was attained. The | | [...] [address] | | | [place] [address] | + + + SURGICAL PATHOLOGY (03/24/2018 [...] characteristics determined | | | | by [facility]. It has not been | | | [...] + + | Tissue - Leg | [facility] DEPARTMENT OF PATHOLOGY [address] | | | [place] [address] | + + + CULTURE, TISSUE (03/24/2018 [...] + + | Tissue - Leg | [facility] [address] [place], [place] | | | [address] | + + + + + | [...] + + | Tissue - Leg | [facility] [id number] [place] [address] | | | [address] | + + + + + | [...] + + | Tissue - Leg | [facility] [address] [place], [place] | | | [address] | + + + + + | [...] - Leg | [facility] [place] [address] [place], [place] | | | [address] | + + + + + | [...] + + | Tissue - Leg | [facility] [place] [address] [place], [place] | | | [address] | + + + + + | [...] + + | PRODUCT UNIT # | [id number] | | + + + + | UNIT ABO | A | | + + + + | UNIT RH | NEG | | + + + + | STATUS OF UNIT | Presumed Transfused | | + + + + | EXPIRATION DATE | [id number] | | + + + + | BLOOD TYPE BARCODE | 0600 | | + + + + | BLOOD PRODUCT CODE | [id number] | | + + + + + + + | Specimen | Performing Laboratory | + + + | | [facility], [facility] MEDICINE [address] [place] [address] | | | [place] [address] | + + + PRODUCT - RED CELLS LEUKOREDUCED (03/24/2018 9:15 AM) + + + + | Component | Value | Ref Range | + + + + | PRODUCT DESCRIPTION | -1 RED BLOOD CELL ADENINE-SALINE ADDED | | | | LEUKOCYTE | | + + + + | PRODUCT UNIT # | [id number] | | + + + + | UNIT ABO | A | | + + + + | UNIT RH | POS | | + + + + | STATUS OF UNIT | Presumed Transfused | | + + + + | EXPIRATION DATE | [id number] | | + + + + | BLOOD TYPE BARCODE | 6200 | | + + + + | BLOOD PRODUCT CODE | [id number] | | + + + + + + + | Specimen | Performing Laboratory | + + + | | [facility], [facility]INE [address] | | | [place] [address] | + + + PRODUCT - RED CELLS LEUKOREDUCED (03/24/2018 9:15 AM) + + + + | Component | Value | Ref Range | + + + + | PRODUCT DESCRIPTION | -1 RED BLOOD CELL ADENINE-SALINE ADDED | | | | LEUKOCYTE | | + + + + | PRODUCT UNIT # | [id number] | | + + + + | UNIT ABO | A | | + + + + | UNIT RH | POS | | + + + + | STATUS OF UNIT | Presumed Transfused | | + + + + | EXPIRATION DATE | [id number] | | + + + + | BLOOD TYPE BARCODE | 6200 | | + + + + | BLOOD PRODUCT CODE | [id number] | | + + + + + + + | Specimen | Performing Laboratory | + + + | | [facility], [facility] MEDICINE [address] | | | [place] [address] | + + + RBC MORPHOLOGY (03/24/2018 [...] | + + + | Blood | [facility], CORE [address] [place] [address] | | | [place] [address] | + + + MANUAL DIFFERENTIAL (03/24/2018 [...] | + + + | Blood | [facility], CORE [address] [place] [address] | | | [place] [address] | + + + + + | [...] | + + + | Blood | [facility], CORE [address] [facility] | | | [place] [address] | + + + + + | [...] | >60 | >60 mL/min | | QATARI | | | + +---------+ + | EGFR NON | >60 | >60 mL/min | | -QATARI | | | + +---------+ + | [...] | + + + | Blood | [facility], CORE [address] | | | [place] [address] | + + + + + | [...] | ------ CBC AND AUTO | | DIFF[[id number]] Abnormal Final | | result MANUAL | | DIFFERENTIAL[[id number]] Abnormal Final | | result RBC | | MORPHOLOGY[[id number]] | | Final result Please view results [...] | + + + | Blood | [facility], CORE [address] | | | [place] [address] | + + + + + | [...] | | ------ CBC (HEMOGRAM) | | ONLY[[id number]] Abnormal Final | | result Please view [...] + + | PRODUCT UNIT # | [id number] | | + + + + | UNIT ABO | A | | + + + + | UNIT RH | POS | | + + + + | STATUS OF UNIT | Presumed Transfused | | + + + + | EXPIRATION DATE | [id number] | | + + + + | BLOOD TYPE BARCODE | 6200 | | + + + + | BLOOD PRODUCT CODE | [id number] | | + + + + + + + | Specimen | Performing Laboratory | + + + | | [facility], [facility] MEDICINE [address] [facility] | | | [place], [place] [address] | + + + C-REACTIVE PROTEIN (03/23/2018 4:44 PM) + + + + | Component | Value | Ref Range | + + + + | C-REACTIVE PROTEIN | 166.0 (H) | <10.0 mg/L | + + + + + + + | Specimen | Performing Laboratory | + + + | Blood | [facility], CORE [address] | | [facility] [address] | + + + + + | [...] | + + + | Blood | [facility], CORE [address] [place] [address] | | | [place] [address] | + + + D-DIMER, (PE OR DIC) (03/23/2018 4:44 PM) + + + + | Component | Value | Ref Range | + + + + | D-DIMER (PE OR DIC) | 0.62 (H) | <0.50 ug/mLFEU | + + + + + + + | Specimen | Performing Laboratory | + + + | Blood | [facility], CORE [address] [facility] | | | [place], [place] [address] | + + + + + | [...] | + + + | Blood | [facility], CORE [address] [facility] | | | [place] [address] | + + + + + | [...] | + + + | Blood | [facility], CORE [address] [facility] | | | [place] [address] | + + + COMPLETE METABOLIC SET [...] | >60 | >60 mL/min | | QATARI | | | + +---------+ + | EGFR NON | >60 | >60 mL/min | | -QATARI | | | + +---------+ + | [...] | + + + | Blood | [facility], CORE [address] [facility] | | | [place] [address] | + + + + + | [...] | + + + | Blood | [facility], CORE [address] [place] [address] | | | [place] [address] | + + + RETICULOCYTE COUNT (03/23/2018 [...] | + + + | Blood | [facility], CORE [address] [facility] | | | [place] [address] | + + + RETICULOCYTE COUNT, BLOOD [...] --------- | | ------ RETICULOCYTE | | COUNT[[id number]] Abnormal Final | | result Please view [...] | + + + | Blood | [facility], [facility] MEDICINE [address] [facility] | | | [address] [place] [facility] [place] [address] | + + + CBC AND AUTO [...] | + + + | Blood | [facility], CORE [address] [facility] [address] | | | [place] [address] | + + + + + | [...] | + + + | Blood | [facility], TRANSF[facility]ION MEDICINE [address] [place] [address] | | | [place] [address] | + + + SEDIMENTATION RATE (03/23/2018 4:41 PM) + +---------+ + | Component | Value | Ref Range | + +---------+ + | SEDIMENTATION RATE | 102 (H) | 0 - 20 mm/hr | + +---------+ + + + + | Specimen | Performing Laboratory | + + + | Blood | [facility], CORE [address] [facility] | | | [place] [address] | + + + + + | [...] | ------ CBC AND AUTO | | DIFF[[id number]] Abnormal Final | | result RBC | | MORPHOLOGY[[id number]] | | Final result Please view results [...] | + + + | Blood | [facility], CORE [address] [facility] | | | [place] [address] | + + + CULTURE, BLOOD BACTI [...] ------ CULTURE, BLOOD | | BACTI & Y...[[id number]] Final | | result Please view results [...] + + | Blood - Antecubital | [facility], CORE [address] | | - left | [place] [address] | + + + CULTURE, BLOOD BACTI [...] ------ CULTURE, BLOOD | | BACTI & Y...[[id number]] Final | | result Please view results for these tests on the | | individual orders. | + + X-RAY KNEE 2 VIEWS LEFT (03/23/2018 3:55 PM) + + + | Specimen | Performing Laboratory | + + + | | [facility] RADIOLOGY VOICE RECOGNITION 2 | + + [...] | + +---+ | | | | [id number] | | | (SPECIAL MOUTHWASH) suspension | [...]
--- OUTSIDE RECORDS SUMMARY | ~2018-04-16 | XMS | Encounter Summary ---
Demographics + + + | Address | [address] | | | [place] [address] | + + + | Home Phone [...] Team Providers + +------+ + | Care Heel Reducer Name | Role | Phone | + [...] IRRIGATION AND | | 2018 | | [facility] | MD [address] [facility] [address] | DEBRIDEMENT LEFT | | | | Admitting Desk | [address] | BELOW KNEE | | | | Located on the | [place], [place] | AMPUTATION SITE, | | | | floor [address] [facility] | [address] | WOUND VAC CHANGE, | | | | [address] | [phone] | REVISION BELOW KNEE | | | | [place], [place] | | AMPUTATION | | | | [address] | | | +--------+---------+ + + + [...] CBC and reticulocyte count on 04/04/18 a [facility]. Appointments: Future Appointments Provider Department Dept Phone Center 04/09/2018 2:00 PM Hem Starter Nurse Hematology/Medical Oncology at [facility] [phone] HemOn 04/09/2018 3:10 PM Sandra Patel Hematology/Medical Oncology at [facility] [place] 04/09/2018 3:40 PM Lynda Basurto [facility] [phone] [place] Discharge condition: Fair Discharge destination (If [...] anxiety (1st line nausea/vomiting). Miscellaneous Medical Supply [facility] Commonly known as: Miscellaneous Medical Supply [...] 25 mg Tab Commonly known as: HYDRODIURIL Lsyoafuao-Opopzbjzu-Th-Mag-Sim [id number] mg/30 mL Mwsh Commonly known as: FIRST-MOUTHWASH [...] room air Abdominal: nontender, non-distended, obese Skin: [place], warm, well-perfused, no ecchymoses Extremities: LLE iqktb-ufm-yuse amputation site dressed in compression wrap. Drain [...] MD I spent more than 36 minutes kpzm-gf-exry with the patient of which greater than 50% was sp ent counseling the patient coordinating care. in this encounter Discharge Instructions Rashida Thompson RN - 04/01/2018In order to receive services for line care and lab work at [facility] Out Patient Infusion/Day Surgery: you will first need to be seen by an MD (with stephane cortez at [facility] Walk in clinic). Please go in to [facility] in clinic to see an MD prior to your Saturday04/04/2018 [facility] appointment for your lab [...] line | | | | | | ([facility]) | nausea/vomiting). | | | [...] for | | | | | | ([facility]) | nausea/vomiting). | | | [...] soon | | | | | | ([facility]) | and do not combine [...] line | | | | | | ([facility]) | agent for acute or [...] Orthopaedic Attending: Tati Cage 1985 32 y.o. [id number] 04/01/2018 03/23/2018 9 Macie Torre MD Diagnosis(es): [...] to make a follow up [facility] 2 weeks with ORTHO ONCOLOGY, Odalys Stafford - (Adela) Junaid Burrell MD Orthopaedic Surgery, R3 [id number] 03/31/2018 Cesia Foster NP - 04/01/2018 12:14 PM PDTFormatting of this note may be different from t he original. Orthopaedic Surgery Progress Note Patient: /Age: MRN: CSN: Date: Admission Date: Hospital Day: Orthopaedic Attending: Tati Cage 1985 32 y.o. [phone] [id number] 04/01/2018 03/23/2018 9 Macie Torre MD Diagnosis(es): [...] infection or alberto inage. Cesia Foster NP [facility] [address]K [address] [place] [address] Lynda Basurto MD - 04/01/2018 11:49 AM [...] consulted, see above plan # Pancytopenia # Rrccb-sx-umoumjw anemia Pt's WBC and platelets have recovered, [...] n 03/17/18. - Pt beingfollowed by onc [facility], appreciate recs. Dr. Sandra Patel is her [...] and hemat ology workup. Dawit Amaya, MS4 [facility] [phone] Associated attestation - Greg Edgar MD - [...] agreeable with our plans. Greg Edgar MD [employer] Division of Hospital Medicine Teaching Attending I spent 37 minutes in the care of this patient, >50% engaged in bedside counseling or coord ination of care with orthopedics, anesthesia pain service.Bela Holt MD - 018 9:28 AM PDTPt weaned off PNB. Catheter pulled. Tip intact. Coag status normal prior to removal of catheter. APS will sign-off. Please pg APS [phone] with questions/concerns. Bela Holt MD APS # [id number] Lynda Basurto MD - 03/31/2018 9:14 AM [...] Orthopaedic Attending: Tati Cage 1985 32 y.o. [phone] 03/31/2018 03/23/2018 8 Macie Torre MD Diagnosis(es): [...] to make a [facility] up [facility] 2 weeks with ORTHO ONCOLOGY, Odalys Stafford - (Sb and Jorge L) Junaid Burrell MD Orthopaedic Surgery, R3 [id number] 03/31/2018 Cesia Gaitan MD - 03/30/2018 4:51 PM PDTAPS Clarification Note; Tonight the continuous rate on the nerve block will be to 0 ml/hr and bolus only will be in place. Catheter will be pulled Saturday morning. Cesia Gaitan MD [facility] [address] [facility], 4th Floor Mail Code: CH4P [place], [place] [address] Rafael Shell MD - 03/30/2018 4:35 PM [...] on 03/17/18. - Pt beingfollowed by onc [facility], appreciate recs. Dr. Sandra Patel is her primary oncologist and she will have follow up on 04/09 to discuss cycle 3 planning. # mild LE edema Suspect due to IVF. - compression stocking to RLE. - will consider lasix # Pancytopenia # Flbmg-gx-ftqvkho anemia Likely hypoproliferationin setting of recentsystemic chemotherapy and acute inflammatio n. Will continue to monitor and transfuse as needed, goal >7. - She has received a total of 5 units of pRBCs at [facility] and 1 unit previously at OSH. - [...] Rafael Suleman PGY-2 Internal Medicine Pager # [phone] Associated attestation - Greg Edgar MD - [...] agreeable with our plans. Greg Edgar MD [employer] Division of Hospital Medicine Teaching Attending I [...] 25 mg 25 mg oral Q6H PRN jubbzghhvyNLRYE-pwaididqm-KDGSOT (SPECIAL MOUTHWASH) suspension (compound) 5 mL 5 [...] 25 mg 25 mg oral Q6H PRN ljtwjamlzyCIUVT-hapetmiub-RTJGAN (SPECIAL MOUTHWASH) suspension (compound) 5 mL 5 [...] Orthopaedic Attending: Tati Cage 1985 32 y.o. [phone] 03/30/2018 03/23/2018 7 Macie Torre MD Diagnosis(es): [...] to make a [facility] up [facility] 2 weeks with ORTHO ONCOLOGY, Odalys Stafford - (Sb and Jorge L) Adam Jean MD Pager: [phone] Dawit Amaya Sho - 03/29/2018 4:46 PM [...] on 03/17/18. - Pt beingfollowed by onc [facility], appreciate recs. Dr. Sandra Patel is her primary oncologist . Oncology team communicating with Dr. Patel. - Coordinating with onc and ortho regarding plan for timing of cycle 3 of chemotherapy, whi ch will need to be delayed to allow for healing after infection. # Pancytopenia # Zdmlp-ol-lvudvrj anemia Likely hypoproliferationin setting of recentsystemic chemotherapy and acute inflammatio n. Will continue to monitor and transfuse as needed, goal >7. - Hg 6.8 this morning --> pRBC x1 today - She has received a total of 5 units of pRBCs at [facility] and 1 unit previously at OSH. - [...] Dispo: Continue inpatient care Dawit Amaya, MS4 [facility] Pager [phone] Associated attestation - Greg Edgar MD - [...] agreeable with our plans. Greg Edgar MD [employer] Division of Hospital Medicine Teaching Attending I [...] Orthopaedic Attending: Tati Cage 1985 32 y.o. [phone] 03/29/2018 03/23/2018 6 Macie Torre MD Diagnosis(es): [...] to make a follow up [facility] 2 weeks with ORTHO ONCOLOGY, Odalys Stafford - (Sb and Jorge L) Adam Jean MD Pager: [phone] Dawit Amaya - 03/28/2018 1:33 PM PDTFormatting [...] in 4/5. Pathology Report from 03/24/18 left tgvao-vwu-ywbj amputation site debridement: "A. Soft tissue, left [...] on 03/17/18. - Pt beingfollowed by onc [facility], appreciate recs. Dr. Sandra Patel is her primary oncologist . Oncology team will communicate with Dr. Patel. - Coordinating with onc and ortho regarding plan for timing of cycle 3 of chemotherapy, whi ch will need to be delayed to allow for healing after infection. # Pancytopenia # Yodlj-xj-kidvunq anemia Likely hypoproliferationin setting of recentsystemic chemotherapy and acute inflammatio n. Will continue to monitor and transfuse as needed, goal >7. - Hg 9.2 this morning. - She has received at total of 4 units of pRBCs at [facility] and 1 unit previously at OSH. - [...] Dispo: Continue inpatient care Dawit Amaya, MS4 [facility] Pager [phone] Associated attestation - Greg Edgar MD - [...] agreeable with our plans. Greg Edgar MD [employer] Division of Hospital Medicine Teaching Attending I [...] Orthopaedic Attending: Tati Cage 1985 32 y.o. [phone] 03/28/2018 03/23/2018 5 Macie Torre MD Diagnosis(es): [...] to make a [facility] 2 weeks with ORTHO ONCOLOGY, Odalys [...] edge. Junaid Burrell MD Orthopaedic Surgery, R3 [id number] 03/26/2018 Madiha Beckford DNP - 03/28/2018 12:15 [...] 25 mg 25 mg oral Q6H PRN vqavonwurkNIYUN-shocskpvz-VXSBBB (SPECIAL MOUTHWASH) suspension (compound) 5 mL 5 [...] on file Social History Narrative Works in [employer] at a [employer] near [place]. No kids. Lives with her mother Rose. [...] by primary care team. Madiha Rebollar DNP, GEOSPATIAL TECHNOLOGIST-C [facility] [address] [place] [id number] Lynda Basurto MD - 03/28/2018 8:06 AM [...] Ricardo Morales MD/PhD Anesthesiology CA-2 APS pager [phone] Sho - 03/27/2018 6:39 AM PDTFormatting of [...] neutropenia after c hemotherapy. # Pancytopenia # Uvrha-xs-bohuvim anemia Likely hypoproliferation in setting of recentsystemic chemotherapy and acute inflammation . Will continue to monitor and transfuse as needed, goal >7. - Hg 8.0 this morning prior to procedure today, 7.4 after. EBL of 200 mL during procedure. - She has received at total of 4 units of pRBCs at [facility] and 1 unit previously at OSH. - [...] on 03/17/18. - Pt beingfollowed by onc [facility], appreciate recs. Dr. Sandra Patel is her [...] Dispo: Continue inpatient care Dawit Amaya, MS4 [facility] Pager [phone] Associated attestation - Greg Edgar MD - [...] agreeable with our plans. Greg Edgar MD [employer] Division of Hospital Medicine Teaching Attending I [...] units of pRBCs have been given at [facility], with 1 unit given at OSH. Current [...] returning to the [place]. # Pancytopenia # Rnqpw-kc-lcwckmj anemia Likely hypoproliferation in setting of recentsystemic chemotherapy and acute inflammation . No evidence of acute blood loss or hemolysis. Drainage from wound vac has been minimal. Wi ll continue to monitor and transfuse as needed, goal >7. - Hg improved to 9.2 today after an additional unit of pRBCs this morning. She has received at total of 4 units of pRBCs at [facility] and 1 unit previously at OSH. - [...] 03/17/18. - Pt being followed by onc [facility], appreciate recs. Dr. Sandra Patel is her [...] Dispo: Continue inpatient care Dawit Amaya, MS4 [facility] Pager [phone] Associated attestation - Greg Edgar MD - 03/26/2018 8:45 PM PDTGeneral Medicine Attending Progress Note Author: Greg Edgar MD Hospital Day # 3 PCP: Santo Gooden MD I personally interviewed the patient, performed the rmoero elements of the physical examinatio n, and [...] agreeable with our plans. Greg Edgar MD [employer] Division of Hospital Medicine Teaching Attending I [...] Orthopaedic Attending: Tati Cage 1985 32 y.o. [id number] 03/26/2018 03/23/2018 3 Macie Torre MD Diagnosis(es): [...] to make a follow up [facility] 2 weeks with ORTHO ONCOLOGY, Odalys [...] edge. Junaid Burrell MD Orthopaedic Surgery, R3 [id number] 03/26/2018 Greg Edgar MD - 03/25/2018 9:59 [...] agreeable with our plans. Greg Edgar MD [employer] Division of Hospital Medicine Teaching Attending I [...] Orthopaedic Attending: Tati Cage 1985 32 y.o. [id number] 03/25/2018 03/23/2018 2 Macie Torre MD Diagnosis(es): [...] to make a follow up appointment [facility] 2 weeks with ORTHO ONCOLOGY, Odalys [...] knee. Reflexes: not performed Sorin Aguirre MD [facility] Department of Orthopaedics & Rehabilitation [address] [place] [address] Mail Code: OP31 [facility] [id number] AmayaDawit riley Sho - 03/25/2018 7:30 AM [...] 03/17/18. - Pt being followed by onc [facility], appreciate recs. Dr. Sandra Patel is her [...] Dispo: Continue inpatient care Dawit Amaya, MS4 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 Remainder of plan per her some risk management internship note attached. Yves "Eleanor Cornejo MD Internal [...] Events: - Irrigation and debridement of left dmhrq-fyu-moom amputation stump followed by wound vac placement, [...] Dispo: Continue inpatient care Dawit Amaya, MS4 [facility] Pager [phone] Burciaga MD,MPH - 03/24/2018 12:56 PM PDTFormatting [...] TSERING BURCIAGA MD,MPH PGY-5 Orthopaedic Surgery Pager: [phone] Rc Simpson MD - 03/24/2018 2:00 AM [...] second case tomorrow morning. Should remain NPO. Federcio Simpson MD Orthopedic Surgery, R2 Pager [phone] in this encounter Plan of Treatment +--------+ + + + + | Date | Type | Specialty | Care Team | Description | +--------+ + + + + | 04/24/ | Appointment | Hematology & | Nurse, Hem Starter | | | 2017 | | Oncology | [address] [facility] | | | | | | [place] [address] | | +--------+ + + + + | 04/24/ | Office | Hematology & | Annie Gannon, | | | 2017 | Visit | Oncology | AGACNP,GEOSPATIAL TECHNOLOGIST [address] | | | | | [address] | | | | | | [place], [place] | | | | | | [address] | | | | | | [phone] | | | | | | | | +--------+ + + + + | 04/24/ | Hospital | Adult Acute Care | Savanna Mari, | | | 2017 | Encounter | | [address] | | | | | | [facility] [place] | | | | | | [address] | | | | | | [phone] | | | | | | | [...] [address] | | | | | | [place], [place] | | | | | | [address] | | | | | | [phone] | | | | | | | [...] | >60 | >60 mL/min | | [place] | | | + +---------+ + | EGFR NON | >60 | >60 mL/min | | -[place] | | | + +---------+ + | [...] + + | Blood | [facility], CORE [address] | | | [place] [address] | + + + + + | [...] + + | Blood | [facility], CORE [address] [place] [address] | | | [place] [address] | + + + MANUAL DIFFERENTIAL (04/01/2018 [...] + + | Blood | [facility], CORE [address] [address] | | | [place] [address] | + + + + + | [...] + + | Blood | [facility], CORE [address] [place] [address] | | | [place] [address] | + + + + + | [...] + + | Blood | [facility], CORE [address] [facility] | | | [place] [address] | + + + CBC, WITH DIFFERENTIAL [...] | ------ CBC AND AUTO | | DIFF[[id number]] Abnormal Final | | result MANUAL | | DIFFERENTIAL[[id number]] Abnormal Final | | result RBC | | MORPHOLOGY[[id number]] | | Final result Please view results [...] --------- | | ------ RETICULOCYTE | | COUNT[[id number]] Abnormal Final | | result Please view results for these tests on the | | individual orders. | + + CT LOWER EXTREMITY BILATERAL W CONTRAST (03/31/2018 5:09 PM) + + + | Specimen | Performing Laboratory | + + + | | [facility] RADIOLOGY VOICE RECOGNITION 2 | + + [...] The patient has | | a left amseu-nkl-rcel amputation. A surgical drain is present at [...] administered. FINDINGS: The patient has a left taiov-duk-acok amputation. A surgical | | drain is [...] Note | + + | Service Account, RadiPowerDsine Res In Interface - 03/31/2018 5:20 PM [...] + + | Blood | [facility]ORE [address] [facility] | | | [place] [address] | + + + + + | [...] | | ------ CBC (HEMOGRAM) | | ONLY[[id number]] Abnormal Final | | result Please view [...] + + | Blood | [facility], TRANSFUSION MEDICINE [address] [facility] | | | [place] [facility] [place] [address] | + + + COMPLETE METABOLIC SET [...] | >60 | >60 mL/min | | [place] | | | + +---------+ + | EGFR NON | >60 | >60 mL/min | | -[place] | | | + +---------+ + | [...] + + | Blood | [facility] CORE [address] | | | [place] [address] | + + + + + | [...] + + | Blood | [facility] CORE [address] | | | [place] [address] | + + + + + | [...] + + | Blood | [facility], TRANSFUSION MEDICINE [address] [facility] | | | [place] [address] | + + + HAPTOGLOBIN (03/31/2018 11:33 AM) + +-------+ + | Component | Value | Ref Range | + +-------+ + | HAPTOGLOBIN | 187 | 30 - 200 mg/dL | + +-------+ + + + + | Specimen | Performing Laboratory | + + + | Blood | [facility], CORE [address] [facility] | | | [place] [address] | + + + LDH TOTAL, PLASMA [...] + + | Blood | [facility], CORE [address] [facility] | | | [place] [address] | + + + PRODUCT - RED CELLS LEUKOREDUCED (03/31/2018 5:58 AM) + + + + | Component | Value | Ref Range | + + + + | PRODUCT DESCRIPTION | -1 RED BLOOD CELL ADENINE-SALINE ADDED | | | | LEUKOCYTE | | + + + + | PRODUCT UNIT # | [id number] | | + + + + | UNIT ABO | A | | + + + + | UNIT RH | POS | | + + + + | STATUS OF UNIT | Presumed Transfused | | + + + + | EXPIRATION DATE | [id number] | | + + + + | BLOOD TYPE BARCODE | 6200 | | + + + + | BLOOD PRODUCT CODE | [id number] | | + + + + + + + | Specimen | Performing Laboratory | + + + | | [facility], TRANSFUSION MEDICINE [address] | | | [place] [address] | + + + PRODUCT - RED CELLS LEUKOREDUCED (03/31/2018 5:58 AM) + + + + | Component | Value | Ref Range | + + + + | PRODUCT DESCRIPTION | -1 RED BLOOD CELL ADENINE-SALINE ADDED | | | | LEUKOCYTE | | + + + + | PRODUCT UNIT # | [id number] | | + + + + | UNIT ABO | A | | + + + + | UNIT RH | POS | | + + + + | STATUS OF UNIT | Presumed Transfused | | + + + + | EXPIRATION DATE | [id number] | | + + + + | BLOOD TYPE BARCODE | 6200 | | + + + + | BLOOD PRODUCT CODE | [id number] | | + + + + + + + | Specimen | Performing Laboratory | + + + | | [facility], TRANSFUSION MEDICINE [address] [facility] | | | [place] [address] | + + + PRODUCT - RED CELLS LEUKOREDUCED (03/31/2018 5:58 AM) + + + + | Component | Value | Ref Range | + + + + | PRODUCT DESCRIPTION | -1 RED BLOOD CELL ADENINE-SALINE ADDED | | | | LEUKOCYTE | | + + + + | PRODUCT UNIT # | [id number] | | + + + + | UNIT ABO | A | | + + + + | UNIT RH | POS | | + + + + | STATUS OF UNIT | Returned to Blood Bank | | + + + + | EXPIRATION DATE | [id number] | | + + + + | BLOOD TYPE BARCODE | 6200 | | + + + + | BLOOD PRODUCT CODE | [id number] | | + + + + + + + | Specimen | Performing Laboratory | + + + | | [facility], TRANSFUSION MEDICINE [address] [facility] | | | [place] [facility] [place] [address] | + + + MANUAL DIFFERENTIAL (03/31/2018 [...] + + | Blood | [facility] CORE [address] [facility] | | | [place] [address] | + + + + + | [...] + + | Blood | [facility], CORE [address] [facility] | | | [place] [address] | + + + + + | [...] | | ------ DIFFERENTIAL, | | ADD ON[[id number]] Final | | result MANUAL | | DIFFERENTIAL[[id number]] Abnormal Final | | result Please view [...] + + | Blood | [facility], CORE [address] [facility] | | | [place] [address] | + + + + + | [...] | >60 | >60 mL/min | | [place] | | | + +---------+ + | EGFR NON | >60 | >60 mL/min | | -[place] | | | + +---------+ + | [...] + + | Blood | [facility], CORE [address] [facility] | | | [place] [address] | + + + + + | [...] | | ------ CBC (HEMOGRAM) | | ONLY[[id number]] Abnormal Final | | result Please view [...] + + | Blood | [facility], CORE [address] [place] [address] | | | [place] [address] | + + + CAPILLARY BLOOD GLUCOSE [...] [address] | | | [place] [address] | + + + CBC (HEMOGRAM) ONLY [...] + + | Blood | [facility] CORE [address] [facility] | | | [place] [address] | + + + + + | [...] | >60 | >60 mL/min | | [place] | | | + +---------+ + | EGFR NON | >60 | >60 mL/min | | -[place] | | | + +---------+ + | [...] + + | Blood | [facility], CORE [address] [facility] | | | [place] [address] | + + + + + | [...] | | ------ CBC (HEMOGRAM) | | ONLY[[id number]] Abnormal Final | | result Please view [...] + + | Blood | [facility], CORE [address] [facility] | | | [place] [address] | + + + + + | [...] | | ------ CBC (HEMOGRAM) | | ONLY[[id number]] Abnormal Final | | result Please view [...] + + | Blood | [facility], TRANSFUSION MEDICINE [address] [facility] | | | [place] [address] | + + + ABO & RH [...] | + + + | Blood | [facility], TRANSFUSION MEDICINE [address] [facility] | | | [place] [address] | + + + TYPE AND SCREEN [...] | ------ ABO & RH | | TYPE[[id number]] F | | inal result ANTIBODY | | SCREEN[[id number]] Fin | | al result Please view [...] + + | PRODUCT UNIT # | [id number] | | + + + + | UNIT ABO | A | | + + + + | UNIT RH | POS | | + + + + | STATUS OF UNIT | Presumed Transfused | | + + + + | EXPIRATION DATE | [id number] | | + + + + | BLOOD TYPE BARCODE | 6200 | | + + + + | BLOOD PRODUCT CODE | [id number] | | + + + + + + + | Specimen | Performing Laboratory | + + + | | [facility], TRANSFUSION MEDICINE [address] | | | [place] [address] | + + + CAPILLARY BLOOD GLUCOSE (NO CHG), POC (03/29/2018 12:12 PM) + +-------+ + | Component | Value | Ref Range | + +-------+ + | BLOOD GLUCOSE, POC | 87 | 70 - 99 mg/dL | + +-------+ + + + + | Specimen | Performing Laboratory | + + + | | [facility], POINT OF CARE TESTS [address] | | | [place] [address] | + + + CBC (HEMOGRAM) ONLY [...] + + | Blood | [facility], CORE [address] [facility] | | | [place] [address] | + + + + + | [...] | | ------ CBC (HEMOGRAM) | | ONLY[[id number]] Abnormal Final | | result Please view [...] | >60 | >60 mL/min | | [place] | | | + +---------+ + | EGFR NON | >60 | >60 mL/min | | -[place] | | | + +---------+ + | [...] + + | Blood | [facility], CORE [address] [facility] [address] | | | [place] [address] | + + + + + | [...] + + | Blood | [facility], [facility] [address] [facility] | | | [place] [address] | + + + + + | [...] + + | Blood | [facility], CORE [address] | | | [place] [address] | + + + CBC AND AUTO [...] + + | Blood | [facility], [facility] [address] [facility] | | | [place] [address] | + + + + + | [...] | ------ CBC AND AUTO | | DIFF[[id number]] Abnormal Final | | result RBC | | MORPHOLOGY[[id number]] | | Final result Please view results [...] | >60 | >60 mL/min | | [place] | | | + + + + | EGFR NON | >60 | >60 mL/min | | -[place] | | | + + + + [...] + + | Blood | [facility], [facility] [address] | | | [place] [address] | + + + + + | [...] + + | Blood | [facility], CORE [address] [facility] | | | [place] [address] | + + + + + | [...] | | ------ CBC (HEMOGRAM) | | ONLY[[id number]] Abnormal Final | | result Please view results for these tests on the | | individual orders. | + + OPERATION RECORD (03/27/2018 12:10 PM) + + | Procedure Note | + + | Lynda Basurto MD - 03/27/2018 12:10 PM PDT Date of Service: 03/27/2018 | | Attending Surgeon: Lynda Basurto MD Music Composer(s): Odalys | | Mike Stafford PA-C. Please note no other qualified printing assistant was available. | | Preoperative Diagnosis: [...] closure of the fascia. This was a 10-Emirati | | channel drain. Please note, the [...] 03/27/2018 | | 11:18:37DT: 03/27/2018 12:10:06Job #: [id number] | + + CAPILLARY BLOOD GLUCOSE (NO CHG), POC (03/27/2018 12:06 PM) + +---------+ + | Component | Value | Ref Range | + +---------+ + | BLOOD GLUCOSE, POC | 125 (H) | 70 - 99 mg/dL | + +---------+ + + + + | Specimen | Performing Laboratory | + + + | | [facility] PO[facility] CARE TESTS [address] | | | [place] [address] | + + + PROCEDURE NOTE (03/27/2018 [...] + | | [facility] TESTS [address] | | | [place] [address] | + + + CULTURE, TISSUE (03/27/2018 10:27 AM) + + + + | Component | Value | Ref Range | + + + + | CULTURE RESULT | Escherichia coli (A) | | + + + + + + + | Specimen | Performing Laboratory | + + + | Tissue - Leg | [facility] [place] [address] [place] [address] [place], [place] | | | [address] | + + + + + | [...] - Leg | [facility] [place] [address] [place], [place] | | | [address] | + + + + + | [...] + + | Tissue - Leg | [facility] [address] [place], [place] | | | [address] | + + + + + | [...] + + | Tissue - Leg | [facility] [place] [address] [place], [place] | | | [address] | + + + + + | [...] + + | Tissue - Leg | [facility] [place] [address] [place], [place] | | | [address] | + + + + + | [...] [address] | | | [place] [address] | + + + RBC MORPHOLOGY (03/27/2018 3:56 AM) + +---------+ + | Component | Value | Ref Range | + +---------+ + | DOHLE BODIES | Present | | + +---------+ + | TOXIC GRANULATION | Present | | + +---------+ + + + + | Specimen | Performing Laboratory | + + + | Blood | [facility], CORE [address] [facility] | | | [place] [address] | + + + MANUAL DIFFERENTIAL (03/27/2018 [...] + + | Blood | [facility], CORE [address] | | | [place] [address] | + + + + + | [...] + + | Blood | [facility], CORE [address] | | | [place] [address] | + + + + + | [...] | >60 | >60 mL/min | | [place] | | | + +---------+ + | EGFR NON | >60 | >60 mL/min | | -[place] | | | + +---------+ + | [...] + + | Blood | [facility], CORE [address] [place] [address] | | | [place] [address] | + + + + + | [...] | ------ CBC AND AUTO | | DIFF[[id number]] Abnormal Final | | result MANUAL | | DIFFERENTIAL[[id number]] Abnormal Final | | result RBC | | MORPHOLOGY[[id number]] | | Final result Please view results [...] + + | Blood | [facility], CORE [address] | | | [place] [address] | + + + + + | [...] | | ------ CBC (HEMOGRAM) | | ONLY[[id number]] Abnormal Final | | result Please view [...] + + | Blood | [facility], CORE [address] | | | [place] [address] | + + + COMPLETE METABOLIC SET [...] | >60 | >60 mL/min | | [place] | | | + +---------+ + | EGFR NON | >60 | >60 mL/min | | -[place] | | | + +---------+ + | [...] + + | Blood | [facility], CORE [address] [place] [address] | | | [place] [address] | + + + + + | [...] + + | PRODUCT UNIT # | [id number] | | + + + + | UNIT ABO | A | | + + + + | UNIT RH | POS | | + + + + | STATUS OF UNIT | Presumed Transfused | | + + + + | EXPIRATION DATE | [id number] | | + + + + | BLOOD TYPE BARCODE | 6200 | | + + + + | BLOOD PRODUCT CODE | [id number] | | + + + + + + + | Specimen | Performing Laboratory | + + + | | [facility], TRANSFUSION MEDICINE [address] [place] [address] | | | [place] [address] | + + + VANCOMYCIN, TROUGH (03/26/2018 1:30 AM) + + + + | Component | Value | Ref Range | + + + + | VANCOMYCIN, TROUGH | 20.3 (H) | 10.0 - 20.0 ug/mL | + + + + + + + | Specimen | Performing Laboratory | + + + | Blood | [facility], CORE [address] [facility] | | | [place] [address] | + + + CBC (HEMOGRAM) ONLY [...] + + | Blood | [facility], CORE [address] [facility] | | | [place] [address] | + + + + + | [...] | | ------ CBC (HEMOGRAM) | | ONLY[[id number]] Abnormal Final | | result Please view [...] + + | PRODUCT UNIT # | [id number] | | + + + + | UNIT ABO | A | | + + + + | UNIT RH | POS | | + + + + | STATUS OF UNIT | Returned to Blood Bank | | + + + + | EXPIRATION DATE | [id number] | | + + + + | BLOOD TYPE BARCODE | 6200 | | + + + + | BLOOD PRODUCT CODE | [id number] | | + + + + + + + | Specimen | Performing Laboratory | + + + | | [facility], TRANSF[facility]ION MEDICINE [address] [facility] | | | [place] [address] | + + + RBC MORPHOLOGY (03/25/2018 6:03 PM) + +---------+ + | Component | Value | Ref Range | + +---------+ + | DOHLE BODIES | Present | | + +---------+ + | TOXIC GRANULATION | Present | | + +---------+ + + + + | Specimen | Performing Laboratory | + + + | Blood | [facility], CORE [address] | | | [place] [address] | + + + MANUAL DIFFERENTIAL (03/25/2018 [...] + + | Blood | [facility], CORE [address] [facility] | | | [place] [address] | + + + + + | [...] + + | Blood | [facility], CORE [address] [facility] | | | [place] [address] | + + + RETICULOCYTE COUNT, BLOOD [...] --------- | | ------ RETICULOCYTE | | COUNT[[id number]] Abnormal Final | | result Please view [...] + + | Blood | [facility], CORE [address] | | | [place] [address] | + + + + + | [...] | ------ CBC AND AUTO | | DIFF[[id number]] Abnormal Final | | result MANUAL | | DIFFERENTIAL[[id number]] Abnormal Final | | result RBC | | MORPHOLOGY[[id number]] | | Final result Please view results [...] + + | Blood | [facility], [facility] [address] [facility] | | | [place] [address] | + + + CBC AND AUTO [...] + + | Blood | [facility], CORE [address] [facility] | | | [place] [address] | + + + + + | [...] | >60 | >60 mL/min | | [place] | | | + +---------+ + | EGFR NON | >60 | >60 mL/min | | -[place] | | | + +---------+ + | [...] + + | Blood | [facility] [place] [address] | | | [place] [address] | + + + + + | [...] | ------ CBC AND AUTO | | DIFF[[id number]] Abnormal Final | | result RBC | | MORPHOLOGY[[id number]] | | Final result Please view results [...] + + | PRODUCT UNIT # | [id number] | | + + + + | UNIT ABO | A | | + + + + | UNIT RH | POS | | + + + + | STATUS OF UNIT | Presumed Transfused | | + + + + | EXPIRATION DATE | [id number] | | + + + + | BLOOD TYPE BARCODE | 6200 | | + + + + | BLOOD PRODUCT CODE | [id number] | | + + + + + + + | Specimen | Performing Laboratory | + + + | | [facility], TRANSFUSION MEDICINE [address] [facility] | | | [place] [address] | + + + RBC MORPHOLOGY (03/25/2018 [...] + + | Blood | [facility], CORE [address] [facility] | | | [place] [address] | + + + MANUAL DIFFERENTIAL (03/25/2018 [...] + + | Blood | [facility] C[facility] [address] [facility] | | | [place] [address] | + + + + + | [...] + + | Blood | [facility], [facility] [address] [facility] | | | [place] [address] | + + + + + | [...] | ------ CBC AND AUTO | | DIFF[[id number]] Abnormal Final | | result MANUAL | | DIFFERENTIAL[[id number]] Abnormal Final | | result RBC | | MORPHOLOGY[[id number]] | | Final result Please view results [...] + + | Blood | [facility], CORE [address] [facility] | | | [place] [address] | + + + + + | Narrative | + + | Please draw Vancomycin trough immediately before the next dose. (~1630) Thank you! | + + DEBRIDEMENT OF BELOW KNEE AMPUTATION STUMP (03/24/2018 1:31 PM) + + | Narrative | + + | Macie Torre MD 03/24/2018 1:49 PM [facility] | | DEPARTMENT OF ORTHOPAEDICS & REHABILITATION OPERATIVE REPORT | | Patient Name: Tati | Minerva Cage Date of : 1985 Contract | | Serial Number:: [id number] Report Author: MACIE TORRE MD Procedure Date: | | 03/24/2018 Attending Physician: 1. MACIE TORRE MD Music Composer(s): | | 1. Tsering Burciaga MD Preoperative [...] muscle and fascia. Wound size | | [id number] after tacking back fascia Application of VAC [...] | | sponge in the remaining wound [id number]. Excellent seal was attained. The | | [...] discharge: plan for return to [place] on [facility] MACIE TORRE MD 03/24/2018, | | [...] + + + | | [facility]ARE TEST[facility] [address] | | | [place] [address] | + + + SURGICAL PATHOLOGY (03/24/2018 [...] characteristics determined | | | | by Foradian. It has not been | | | [...] | Tissue - Leg | [facility] DEPART[facility] OF [facility]OLOGY [address] [facility] | | | [place] [address] | + + + CULTURE, TISSUE (03/24/2018 [...] + + | Tissue - Leg | [facility] [address] [place], [place] | | | [address] | + + + + + | [...] + + | Tissue - Leg | [facility] [address] [place], [place] | | | [address] | + + + + + | [...] | Tissue - Leg | [facility] [place] [address] [place], [place] | | | [address] | + + + + + | [...] + + | Tissue - Leg | [facility] [address] [place], [place] | | | [address] | + + + + + | [...] - Leg | [facility] [place] [address] [place], [place] | | | [address] | + + + + + | [...] + + | PRODUCT UNIT # | [id number] | | + + + + | UNIT ABO | A | | + + + + | UNIT RH | NEG | | + + + + | STATUS OF UNIT | Presumed Transfused | | + + + + | EXPIRATION DATE | [id number] | | + + + + | BLOOD TYPE BARCODE | 0600 | | + + + + | BLOOD PRODUCT CODE | [id number] | | + + + + + + + | Specimen | Performing Laboratory | + + + | | [facility], TRANSFUSION MEDICINE [address] [facility] | | | [place] [address] | + + + PRODUCT - RED CELLS LEUKOREDUCED (03/24/2018 9:15 AM) + + + + | Component | Value | Ref Range | + + + + | PRODUCT DESCRIPTION | -1 RED BLOOD CELL ADENINE-SALINE ADDED | | | | LEUKOCYTE | | + + + + | PRODUCT UNIT # | [id number] | | + + + + | UNIT ABO | A | | + + + + | UNIT RH | POS | | + + + + | STATUS OF UNIT | Presumed Transfused | | + + + + | EXPIRATION DATE | [id number] | | + + + + | BLOOD TYPE BARCODE | 6200 | | + + + + | BLOOD PRODUCT CODE | [id number] | | + + + + + + + | Specimen | Performing Laboratory | + + + | | [facility], TRANSFUSION MEDICINE [address] | | | [place] [address] | + + + PRODUCT - RED CELLS LEUKOREDUCED (03/24/2018 9:15 AM) + + + + | Component | Value | Ref Range | + + + + | PRODUCT DESCRIPTION | -1 RED BLOOD CELL ADENINE-SALINE ADDED | | | | LEUKOCYTE | | + + + + | PRODUCT UNIT # | [id number] | | + + + + | UNIT ABO | A | | + + + + | UNIT RH | POS | | + + + + | STATUS OF UNIT | Presumed Transfused | | + + + + | EXPIRATION DATE | [id number] | | + + + + | BLOOD TYPE BARCODE | 6200 | | + + + + | BLOOD PRODUCT CODE | [id number] | | + + + + + + + | Specimen | Performing Laboratory | + + + | | [facility], TRANSFUSION MEDICINE [address] | | | [place] [address] | + + + RBC MORPHOLOGY (03/24/2018 [...] | + + + | Blood | [facility], CORE [address] [place] [address] | | | [place] [address] | + + + MANUAL DIFFERENTIAL (03/24/2018 [...] + + | Blood | [facility], CORE [address] [facility] | | | [place] [address] | + + + + + | [...] + + | Blood | [facility], CORE [address] [facility] | | | [place] [address] | + + + + + | [...] | >60 | >60 mL/min | | [place] | | | + +---------+ + | EGFR NON | >60 | >60 mL/min | | -[place] | | | + +---------+ + | [...] + + | Blood | [facility], CORE [address] [facility] | | | [place] [address] | + + + + + | [...] | ------ CBC AND AUTO | | DIFF[[id number]] Abnormal Final | | result MANUAL | | DIFFERENTIAL[[id number]] Abnormal Final | | result RBC | | MORPHOLOGY[[id number]] | | Final result Please view results [...] + + | Blood | [facility], CORE [address] [facility] | | | [place] [address] | + + + + + | [...] | | ------ CBC (HEMOGRAM) | | ONLY[[id number]] Abnormal Final | | result Please view [...] + + | PRODUCT UNIT # | [id number] | | + + + + | UNIT ABO | A | | + + + + | UNIT RH | POS | | + + + + | STATUS OF UNIT | Presumed Transfused | | + + + + | EXPIRATION DATE | [id number] | | + + + + | BLOOD TYPE BARCODE | 6200 | | + + + + | BLOOD PRODUCT CODE | [id number] | | + + + + + + + | Specimen | Performing Laboratory | + + + | | [facility], TRANSFUSION MEDICINE [address] | | | [place] [address] | + + + C-REACTIVE PROTEIN (03/23/2018 4:44 PM) + + + + | Component | Value | Ref Range | + + + + | C-REACTIVE PROTEIN | 166.0 (H) | <10.0 mg/L | + + + + + + + | Specimen | Performing Laboratory | + + + | Blood | [facility], CORE [address] | | | [place] [address] | + + + + + | [...] + + | Blood | [facility], CORE [address] [facility] | | | [place] [address] | + + + D-DIMER, (PE OR DIC) (03/23/2018 4:44 PM) + + + + | Component | Value | Ref Range | + + + + | D-DIMER (PE OR DIC) | 0.62 (H) | <0.50 ug/mLFEU | + + + + + + + | Specimen | Performing Laboratory | + + + | Blood | [facility], CORE [address] [place] [address] | | | [place] [address] | + + + + + | [...] + + | Blood | [facility], CORE [address] [facility] | | | [place] [address] | + + + + + | [...] + + | Blood | [facility], CORE [address] [place] [address] | | | [place] [address] | + + + COMPLETE METABOLIC SET [...] | >60 | >60 mL/min | | [place] | | | + +---------+ + | EGFR NON | >60 | >60 mL/min | | -[place] | | | + +---------+ + | [...] + + | Blood | [facility], CORE [address] [facility] | | | [place] [address] | + + + + + | [...] + + | Blood | [facility], CORE [address] [facility] | | | [place] [address] | + + + RETICULOCYTE COUNT (03/23/2018 [...] + + | Blood | [facility], [facility] [address] [place] [address] | | | [place] [address] | + + + RETICULOCYTE COUNT, BLOOD [...] --------- | | ------ RETICULOCYTE | | COUNT[[id number]] Abnormal Final | | result Please view [...] + + | Blood | [facility], TRANSF[facility]ION MEDICINE [address] [facility] | | | [place] [address] | + + + CBC AND AUTO [...] + + | Blood | [facility], CORE [address] | | | [place] [address] | + + + + + | [...] | + + + | Blood | [facility], TRANSFUSION MEDICINE [address] [facility] | | | [place] [address] | + + + SEDIMENTATION RATE (03/23/2018 4:41 PM) + +---------+ + | Component | Value | Ref Range | + +---------+ + | SEDIMENTATION RATE | 102 (H) | 0 - 20 mm/hr | + +---------+ + + + + | Specimen | Performing Laboratory | + + + | Blood | [facility], CORE [address] [facility] | | | [place] [address] | + + + + + | [...] | ------ CBC AND AUTO | | DIFF[[id number]] Abnormal Final | | result RBC | | MORPHOLOGY[[id number]] | | Final result Please view results [...] + + | Blood | [facility], CORE [address] | | | [place] [address] | + + + CULTURE, BLOOD BACTI [...] ------ CULTURE, BLOOD | | BACTI & Y...[[id number]] Final | | result Please view results for these tests on the | | individual orders. | + + CULTURE, BLOOD BACTI & YEAST [facility] (03/23/2018 4:21 PM) + + + + | Component | Value | Ref Range | + + + + | CULTURE RESULT | Final Report:No Bacteria or Yeast isolated | | | | at 5 days. | | + + + + + + + | Specimen | Performing Laboratory | + + + | Blood - Antecubital | [facility], CORE [address] [facility] | | - left | [place] [address] | + + + CULTURE, BLOOD BACTI [...] ------ CULTURE, BLOOD | | BACTI & Y...[[id number]] Final | | result Please view results for these tests on the | | individual orders. | + + X-RAY KNEE 2 VIEWS LEFT (03/23/2018 3:55 PM) + + + | Specimen | Performing Laboratory | + + + | | [facility] RADIOLOGY VOICE RECOGNITION 2 | + + [...] | + +---+ | | | | [id number] | | | (SPECIAL MOUTHWASH) suspension | [...] | | | | | NEEDED, Starting [facility] 03/27/18 at | | | | | [...]
--- OUTSIDE RECORDS SUMMARY | ~2018-04-16 | XMS | Encounter Summary ---
Demographics + + + | Address | [address] | | | [place] [address] | + + + | Home Phone [...] Team Providers + +------+ + | Care Shape Brick Molder Name | Role | Phone | [...] [address] | | | | | Road [place], [place] | [address] | | | | | [address] | [place], [place] | | | | | | [address] | | | | | | [phone] | | | | | | | [...] 2018 | | Oncology | [address] [facility] | | | | | | [place] [address] | | +--------+ + + + + | 04/24/ | Office | Hematology & | Annie Gannon, | | | 2017 | Visit | Oncology | BANNERSHANAE,FOOD PRODUCTION MANAGER [address] | | | | | | [address] | | | | | | [place], [place] | | | | | | [address] | | | | | | [phone] | | | | | | | | +--------+ + + + + | 04/24/ | Hospital | Adult Acute Care | Savanna Mari, | | | 2017 | Encounter | | [address] | | | | | | [place], [place] | | | | | | [address] | | | | | | [phone] | | | | | | | [...] [place] | | | | | | [address] | | | | | | [phone] | | | | | | | | +--------+ + + + + as of this encounter Results HSR PROCESS ONLY (02/10/2018 10:45 AM) + + + | Specimen | Performing Laboratory | + + + | Slide-Block | [facility] [employer] [address] | | [address] [place] [address] | + + + in this encounter Visit Diagnoses + + | Diagnosis | + + | Encounter for other specified special examinations (CODE) | + +"
--- OUTSIDE RECORDS SUMMARY | ~2018-04-16 | XMS | Encounter Summary ---
Demographics + + + | Address | [address] | | | [place] [address] | + + + | Home Phone [...] + + + | Author | [facility] | + + + | Organization | [facility] | + + + | Address | Unknown | + + + | Phone | Unavailable | + + + Support + + +---------+ + | Name | Relationship | Address | Phone | + + +---------+ + | ROSE BOWENS | ECON | Unknown | | + + +---------+ + Care Team Providers + +------+ + | Care Implementation Advisor Name | Role | Phone | [...] | | 2018 | | [facility] | [address] | Treatment Questions | | | | for [facility] He[facility] | [place], [place] | | | | | [address] | [address] | | | | | Mailcode: [facility] | [phone] | | | | | [facility] | | | | | | and [facility], [facility] | | | | | | Floor [place], [place] | | | | | | [address] | | | | | | [phone] | | | +--------+ + + + [...] [address] | | | | | | [place] [address] | | +--------+ + + + + | 04/24/ | Office | Hematology & | Annie Gannon, | | | 2017 | Visit | Oncology | AGACNP,MATE CHIEF [address] | | | | | | [address] | | | | | | [place], [place] | | | | | | [address] | | | | | | [phone] | | | | | | | | +--------+ + + + + | 04/24/ | Hospital | Adult Acute Care | Savanna Mari, | | | 2017 | Encounter | | [address] | | | | | | [place], [place] | | | | | | [address] | | | | | | [phone] | | | | | | | [...] [address] | | | | | | [place], [place] | | | | | | [address] | | | | | | [phone] | | | | | | | | +--------+ + + + + as of this encounter Visit Diagnoses + + | Diagnosis | + + | Neutropenic fever (HCC) - Primary | + + | Neutropenia, unspecified | + +"
--- OUTSIDE RECORDS SUMMARY | ~2018-04-16 | XMS | Encounter Summary ---
Demographics + + + | Address | [address] | | | [place] [address] | + + + | Home Phone [...] Team Providers + +------+ + | Care Palliative Nurse Name | Role | Phone | [...] | | 2018 | | Oncology at [facility] | [address] | | | | | for Health & Healing | [place], [place] | | | | | [address] | [address] | | | | | Mailcode: CH7 | [phone] | | | | | [facility] | | | | | | and , | | | | | | [place], [place] | | | | | | [address] | | | | | | [phone] | | | +--------+ + + + [...] Gasper | | | | | | [place] [address] | | +--------+ + + + + | 04/24/ | Office | Hematology & | Annie Gannon, | | | 2017 | Visit | Oncology | AGASHANAE,CASINO CAGE SUPERVISOR [address] | | | | | [address] | | | | | | [place], [place] | | | | | | [address] | | | | | | [phone] | | | | | | | | +--------+ + + + + | 04/24/ | Hospital | Adult Acute Care | Savanna Mari, | | | 2017 | Encounter | | MD [address] | | | | | | [place], [place] | | | | | | [address] | | | | | | [phone] | | | | | | | [...] Scott | | | | | | [facility] [place] | | | | | | [address] | | | | | | [phone] | | | | | | | | +--------+ + + + + as of this encounter Visit Diagnoses Not on filein this encounter"
--- OUTSIDE RECORDS SUMMARY | ~2018-04-16 | XMS | Encounter Summary ---
Demographics + + + | Address | [address] | | | [place] [address] | + + + | Home Phone [...] Team Providers + +------+ + | Care Resistor Winder Name | Role | Phone | [...] | | 2018 | | [facility] | [address] | | | | | for Health & Healing | [place], [place] | | | | | [address] | [address] | | | | | Mailcode: CH7 | [phone] | | | | | [facility] | | | | | | and | | | | | | Floor [place], [place] | | | | | | [address] | | | | | | [phone] | | | +--------+ + + + [...] Jackman | | | | | | [place] [address] | | +--------+ + + + + | 04/24/ | Office | Hematology & | Annie Gannon, | | | 2017 | Visit | Oncology | ROME,TECHNICAL BUYER [address] | | | | | | [address] | | | | | | [place], [place] | | | | | | [address] | | | | | | [phone] | | | | | | | | +--------+ + + + + | 04/24/ | Hospital | Adult Acute Care | Savanna Mari, | | | 2017 | Encounter | | MD [address] | | | | | | [place], [place] | | | | | | [address] | | | | | | [phone] | | | | | | | [...] Scott | | | | | | [place], [place] | | | | | | [address] | | | | | | [phone] | | | | | | | | +--------+ + + + + as of this encounter Visit Diagnoses Not on filein this encounter"
--- OUTSIDE RECORDS SUMMARY | ~2018-04-16 | XMS | Encounter Summary ---
Demographics + + + | Address | [address] | | | [place] [address] | + + + | Home Phone [...] Team Providers + +------+ + | Care Fabric Pattern Grader Name | Role | Phone | + [...] | | for Health & Healing | [place], [place] | (CHEMOTHERAPY | | | | [address] | [address] | Epi/Ifos C3); Care | | | | Mailcode: [facility] | [phone] | Coordination | | | | [facility] | | (NEULASTA) | | | | and [facility] | | | | | | [place], [place] | | | | | | [address] | | | | | | [phone] | | | +--------+ + + + [...] 2017 | | Oncology | [address] [facility] | | | | | | [place] [address] | | +--------+ + + + + | 04/24/ | Office | Hematology & | Annie Gannon, | | | 2017 | Visit | Oncology | [facility] [address] | | | | | [address] | | | | | | [place], [place] | | | | | | [address] | | | | | | [phone] | | | | | | | | +--------+ + + + + | 04/24/ | Hospital | Adult Acute Care | Savanna Mari, | | | 2017 | Encounter | | [address] | | | | | | [place], [place] | | | | | | [address] | | | | | | [phone] | | | | | | | [...] Scott | | | | | | [place], [place] | | | | | | [address] | | | | | | [phone] | | | | | | | [...]
--- OUTSIDE RECORDS SUMMARY | ~2018-04-16 | XMS | Encounter Summary ---
Demographics + + + | Address | [address] | | | [place] [address] | + + + | Home Phone [...] Team Providers + +------+ + | Care Behavioral Health Assistant Name | Role | Phone | [...] | 2018 | Encounter | Oncology at [facility] | [address] | | | | | [address] | [place] [address] | | | | | Mailcode: [facility] | | | | | | [facility] | | | | | | and [facility], | | | | | | [place], [place] | | | | | | [address] | | | | | | [phone] | | | +--------+ + + + [...] | | | | ([facility]) | nausea/vomiting). | | | | [...] | | | | ([facility]) | nausea/vomiting). | | | | [...] Center | | | | | | [place] [address] | | +--------+ + + + + | 04/24/ | Office | Hematology & | Annie Gannon, | | | 2017 | Visit | Oncology | [facility],LAST REPAIRER [address] | | | | | | [facility] | | | | | | [place], [place] | | | | | | [address] | | | | | | [phone] | | | | | | | | +--------+ + + + + | 04/24/ | Hospital | Adult Acute Care | Savanna Mari, | | | 2017 | Encounter | | [address] | | | | | | [place], [place] | | | | | | [address] | | | | | | [phone] | | | | | | | [...] Scott | | | | | | [place], [place] | | | | | | [address] | | | | | | [phone] | | | | | | | [...] - CH, POINT OF CARE TESTS [address] [facility], [place] | | | [address] | + + + CBC+DIFF,POC (04/09/2018 3:14 [...] + + | Blood | [facility] - [facility], POINT OF CARE TESTS [address] [place], [place] | | | [address] | + + + MAGNESIUM, PLASMA (04/09/2018 1:53 PM) + + + | Specimen | Performing Laboratory | + + + | Blood | | + + + + + | Narrative | + + | The following orders were created for panel order MAGNESIUM, PLASMA. | | Procedure | | Abnormality Status | | --------- | | ------ MAGNESIUM, | | PLASMA[[id number]] Normal Final | | result Please view [...] | + + + | Blood | [facility], CORE [address] [facility] | | | [place] [address] | + + + + + | [...] | + + + | Urine | [facility], CORE [address] [facility] | | | [place] [address] | + + + PHOSPHORUS, PLASMA (04/09/2018 1:53 PM) + +---------+ + | Component | Value | Ref Range | + +---------+ + | PHOSPHORUS, PLASMA | 5.0 (H) | 2.4 - 4.7 mg/dL | | (LAB) | | | + +---------+ + + + + | Specimen | Performing Laboratory | + + + | Blood | [facility], CORE [address] | | | [place], [place] [address] | + + + in this encounter [...]
--- OUTSIDE RECORDS SUMMARY | ~2018-04-16 | XMS | Encounter Summary ---
Demographics + + + | Address | [address] | | | [place] [address] | + + + | Home Phone [...] Providers + +------+ + | Care Hand Molder Meat Name | Role | Phone | [...] | | for Health & Healing | [place], [place] | | | | | [address] | [address] | | | | | Mailcode: CH7N | [phone] | | | | | [facility] | | | | | | and [facility], | | | | | | Floor [place], [place] | | | | | | [address] | | | | | | [phone] | | | +--------+---------+ + + + [...] Name: Tati Cage : 1985 Home Town: [place], [place] Referring Physician: Sb Diagnosis: high [...] perfused. No edema. Neurologic - Awake, alert. 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 Affect/Psych - Appropriate. ECOG - [...] to 3 cycles total Sandra Patel MD [facility] & Pediatric Hematology/Oncology [facility] Cancer [facility] Multidisciplinary Sarcoma Programin this encounter Plan of Treatment +--------+ + + + + | Date | Type | Specialty | Care Team | Description | +--------+ + + + + | 04/24/ | Appointment | Hematology & | Nurse, Hem Starter | | | 2017 | | Oncology | [address] | | | | | | [place] [address] | | +--------+ + + + + | 04/24/ | Office | Hematology & | Annie Gannon, | | | 2018 | Visit | Oncology | AGADEVYNP,DRIVER LICENSE REVIEWING OFFICER [address] | | | | | [address] | | | | | | [place], [place] | | | | | | [address] | | | | | | [phone] | | | | | | | | +--------+ + + + + | 04/24/ | Hospital | Adult Acute Care | Savanna Mari, | | | 2017 | Encounter | | [address] | | | | | | [place], [place] | | | | | | [address] | | | | | | [phone] | | | | | | | [...] Scott | | | | | | [facility], [place] | | | | | | [address] | | | | | | [phone] | | | | | | | | +--------+ + + + + as of this encounter Visit Diagnoses + + | Diagnosis | + + | Synovial sarcoma (HCC) - Primary | + + | 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
--- OUTSIDE RECORDS SUMMARY | ~2018-04-16 | XMS | Encounter Summary ---
Demographics + + + | Address | [address] | | | [place] [address] | + + + | Home Phone [...] Team Providers + +------+ + | Care Dramatic Art Teacher Name | Role | Phone | [...] | | [facility] | | | | | | [place], [place] | | | | | | [address] | | | +--------+ + + + [...] | | Oncology | [address] | | | | | | [place] [address] | | +--------+ + + + + | 04/24/ | Office | Hematology & | Annie Gannon, | | | 2018 | Visit | Oncology | [facility],INSTRUCTOR PILOT [address] | | | | | | [address] | | | | | | [place], [place] | | | | | | [address] | | | | | | [phone] | | | | | | | | +--------+ + + + + | 04/24/ | Hospital | Adult Acute Care | Savanna Mari, | | | 2017 | Encounter | | [address] | | | | | | [facility] [place] | | | | | | [address] | | | | | | [phone] | | | | | | | [...] | | | | | | [facility], [place] | | | | | | [address] | | | | | | [phone] | | | | | | | | +--------+ + + + + as of this encounter Visit Diagnoses Not on filein this encounter"
--- OUTSIDE RECORDS SUMMARY | ~2018-04-16 | XMS | Encounter Summary ---
Demographics + + + | Address | [address] | | | [place] [address] | + + + | Home Phone [...] Team Providers + +------+ + | Care Court Clerk Name | Role | Phone | [...] [address] | | | | | (FORMERLY [facility]) | Ave | [address] | | | | | Procedures | [place] | U[place], | | | | | REQUEST TO | [address] | [place] | | | | | SURGERY | Phone: | [phone] | | | | | ADMEASURER | [phone] | Phone: | | | | | PA INSERT | Fax: | [phone] | | | | | SCOUT CV | [phone] | Fax: | | | | | CATH,W SQ | | [phone] | | | | | PORT,>4 Y/O | | | | | | | PA | | | | | | | FLUOROGUIDE | | | | | | | FOR VEIN | | | | | | | DEVICE PA | | | | | | | [...] | | [address] Mail Code: | [place], [place] | | | | | CH7A [facility] | [address] | | | | | Health and Healing, | [phone] | | | | | 7th Floor [place], | | | | | | [place] [address] | | | | | | [phone] | | | +--------+ + + + [...] Leia Camarillo RN - 01/31/2018 4:55 PM [facility]. Phone [facility] Appointment (Perioperative Medicine Clinic) is on 02/06/18 at 3:00. The [facility] clinic will call you at your appointed date and time. If you do not receive a call , please call [phone] or toll free ext [phone]. Instructions for undergoing a line placement: * Stop blood thinners (Aspirin, Warfarin, etc.) as directed now including naproxen. * Nothing to eat or drink (including water) after midnight on 02/06/18. (the night prior to your surgery). * REPORT TO THE 4TH FLOOR OF THE [facility], ROOM 4519 (AMBULATORY DAY SURGERY) ON 02/07/18 * The office will call you with your check in time on 02/06/18 -between 1:00 and 3:00pm. If you have not received a call by 3:00 pm, please call [phone]. * Please shower with hibiclens and shampoo before being admitted to the hospital. * Do not wear any make up, nail yakut or jewelry for the surgery. * Carefully [...] Dr. Restrepo. *Surgical Oncology phone number is [phone]. *You will have a dressing over the [...] elevator to the 3rd Floor of the [facility] and turn left. 2. Turn right and pass the lab, follow the skybridge that crosses over the street. 3. take elevator B to the 2nd Floor (Down one floor). 4. Turn left and proceed through hallway and up the ramp to the [facility]. 5. Continue down the hallway to the elevator (located in front of the Dept of Anesthesiolog y Offices) 6. Take the elevator to the 4th Floor. 7. Turn left off of the elevator and go straight down the hallway. 8. Day Stay is on the right side room #4519. Contact Information If you have any questions, please call us during business hours: [facility] Toll Free [phone] Breast Clinic After hours and on weekends, please call the paging tandem operator at and ask for the Brian Surgery MD confectionery maker. in this encounter Plan of Treatment +--------+ + + + + | Date | Type | Specialty | Care Team | Description | +--------+ + + + + | 04/24/ | Appointment | Hematology & | Darwin Juan | | | 2018 | | Oncology | [address] [facility] | | | | | | [place] [address] | | +--------+ + + + + | 04/24/ | Office | Hematology & | Annie Gannon, | | | 2018 | Visit | Oncology | [facility] [address] | | | | | | [address] | | | | | | [place], [place] | | | | | | [address] | | | | | | [phone] | | | | | | | | +--------+ + + + + | 04/24/ | Hospital | Adult Acute Care | Savanna Mari, | | | 2017 | Encounter | | [address] | | | | | | [facility] [place] | | | | | | [address] | | | | | | [phone] | | | | | | | [...] Scott | | | | | | [place], [place] | | | | | | [address] | | | | | | [phone] | | | | | | | | +--------+ + + + + as of this encounter Visit Diagnoses + + | Diagnosis | + + | Synovial sarcoma (HCC) - Primary | + + | 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
--- OUTSIDE RECORDS SUMMARY | ~2018-04-16 | XMS | Encounter Summary ---
Demographics + + + | Address | [address] | | | [place] [address] | + + + | Home Phone [...] Team Providers + +------+ + | Care Hiv Counselor Name | Role | Phone | [...] | | | sarcoma | [facility] | [address] [facility] | | | | | (HCC) | [place] | [facility] | | | | | Malignant | Health | Rd | | | | | neoplasm of | Center | [place], [place] | | | | | connective | [address] | [address] | | | | | and soft | [place] | Phone: | | | | | tissue of | Way | [phone] | | | | | left lower | [place], | Fax: | | | | | [place], | [place] [address] | [phone] | | | | | including | Phone: | | | | | | hip | [phone] | | | | | | Procedures | Fax: | | | | | | REQUEST TO | [phone] | | | | | | SURGERY | | | | | | | E BUSINESS CONSULTANT | | | | | | | [place] | | | | | | | [...] + + | 02/05/ | Office | [facility] Orthopaedics | Lynda Basurto, | 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 | & Rehabilitation | [address] | ([facility]) (Primary Dx) | | | | [address] | [facility] | | | | | Mailcode: CH12A | [place], [place] | | | | | [facility] | [address] | | | | | and Healing | [phone] | | | | | [place], [place] | | | | | | [address] | | | | | | [phone] | | | +--------+---------+ + + + [...] Jackman | | | | | | [place] [address] | | +--------+ + + + + | 04/24/ | Office | Hematology & | Annie Gannon, | | | 2017 | Visit | Oncology | AGACNP,RECRUIT INSTRUCTOR [address] | | | | | [address] | | | | | | [place], [place] | | | | | | [address] | | | | | | [phone] | | | | | | | | +--------+ + + + + | 04/24/ | Hospital | Adult Acute Care | Savanna Mari, | | | 2018 | Encounter | | [address] | | | | | | [place], [place] | | | | | | [address] | | | | | | [phone] | | | | | | | [...] Scott | | | | | | [place], [place] | | | | | | [address] | | | | | | [phone] | | | | | | | [...] | ------ ABO & RH | | TYPE[[id number]] F | | inal result ANTIBODY | | SCREEN[[id number]] Fin | | al result Please view [...] | ------ CBC AND AUTO | | DIFF[[id number]] Abnormal Final | | result Please view [...] | >60 | >60 mL/min | | NAMIBIAN | | | + +---------+ + | EGFR NON | >60 | >60 mL/min | | -NAMIBIAN | | | + +---------+ + | [...] | + + + | Blood | [facility], CORE [address] [facility] | | | [place] [address] | + + + + + | [...]
--- OUTSIDE RECORDS SUMMARY | ~2018-04-16 | XMS | Encounter Summary ---
Demographics + + + | Address | [address] | | | [place] [address] | + + + | Home Phone [...] Team Providers + +------+ + | Care Sleeve Sewer Name | Role | Phone | [...] | | 2017 | | Oncology at [place] | | | | | | for Health & Healing | | | | | | [address] | | | | | | Mailcode: CH7M | | | | | | [facility] | | | | | | and Healing, 7th | | | | | | Floor [place], [place] | | | | | | [address] | | | | | | [phone] | | | +--------+ + + + [...] Road | | | | | | [place] [address] | | +--------+ + + + + | 04/24/ | Office | Hematology & | Annie Gannon, | | | 2017 | Visit | Oncology | ROME,TEXTBOOK ASSOCIATE [address] | | | | | [address] | | | | | | [place], [place] | | | | | | [address] | | | | | | [phone] | | | | | | | | +--------+ + + + + | 04/24/ | Hospital | Adult Acute Care | Savanna Mari, | | | 2017 | Encounter | | [address] | | | | | | [place], [place] | | | | | | [address] | | | | | | [phone] | | | | | | | [...] Scott | | | | | | [place], [place] | | | | | | [address] | | | | | | [phone] | | | | | | | | +--------+ + + + + as of this encounter Visit Diagnoses Not on filein this encounter"
--- OUTSIDE RECORDS SUMMARY | ~2018-04-16 | XMS | Encounter Summary ---
Demographics + + + | Address | [address] | | | [place] [address] | + + + | Home Phone [...] Team Providers + +------+ + | Care Marketing Systems Manager Name | Role | Phone | [...] + + | 03/23/ | Hospital | [facility] [address] | [place], | | | 2018 - | Encounter | [address] | MD Annabelle | | | | | ANITA DOVE | Larry Pinto MD | | | 04/01/ | | [place] [address] | Greg Edgar | | | 2017 | | [phone] | MD Sho | | +--------+ + [...] CBC and reticulocyte count on 04/04/18 a [facility]. Appointments: Future Appointments Provider Department Dept Phone Center 04/09/2018 2:00 PM Hem Starter Nurse Hematology/Medical Oncology at [facility] [phone] HemOnc 04/09/2018 3:10 PM Sandra Patel Hematology/Medical Oncology at [place] [address] [phone] [place] 04/09/2018 3:40 PM Lynda Basurto [facility] Orthopaedics & Rehabilitation [phone] [place] Discharge condition: Fair Discharge destination (If [...] 25 mg Tab Commonly known as: HYDRODIURIL Xtebyubyy-Cenziribz-Ad-Mag-Sim [id number] mg/30 mL Mwsh Commonly known as: FIRST-MOUTHWASH [...] room air Abdominal: nontender, non-distended, obese Skin: [place], warm, well-perfused, no ecchymoses Extremities: LLE tuudd-mio-zbbd amputation site dressed in compression wrap. Drain [...] MD I spent more than 36 minutes eenl-fb-sgfs with the patient of which greater than 50% was sp ent counseling the patient coordinating care. in this encounter Discharge Instructions Rashida Thompson RN - 04/01/2018In order to receive services for line care and lab work at [facility] Out Patient Infusion/Day Surgery: you will first need to be seen by an MD (with stephane cortez at [facility] Walk in clinic). Please go in to [facility] to see an [...] line | | | | | | ([facility]) | nausea/vomiting). | | | [...] for | | | | | | ([facility]) | nausea/vomiting). | | | [...] Orthopaedic Attending: Tati Cage 1985 32 y.o. [phone] [id number] 04/01/2018 03/23/2018 9 Macie Torre MD Diagnosis(es): [...] to make a follow up appointment in [facility] 2 weeks with ORTHO ONCOLOGY, Odalys Stafford - (Adela) Junaid Burrell MD Orthopaedic Surgery, R3 [id number] 03/31/2018 Cesia Foster NP - 04/01/2018 12:14 PM PDTFormatting of this note may be different from t jorge luis original. Orthopaedic Surgery Progress Note Patient: /Age: MRN: CSN: Date: Admission Date: Hospital Day: Orthopaedic Attending: Tati Cage 1985 32 y.o. [phone] [id number] 04/01/2018 03/23/2018 9 Macie Torre MD Diagnosis(es): [...] infection or alberto inage. Cesia Foster NP [facility] [address] [place], [place] [id number] Lynda Basurto MD - 04/01/2018 11:49 AM [...] consulted, see above plan # Pancytopenia # Zunay-zb-fddxbhm anemia Pt's WBC and platelets have recovered, [...] and hemat ology workup. Dawit Amaya, MS4 [facility] [phone] Associated attestation - Greg Edgar MD - [...] agreeable with our plans. Greg Edgar MD [facility] Medicine Teaching Attending I spent 37 minutes in the care of this patient, >50% engaged in bedside counseling or coord ination of care with orthopedics, anesthesia pain service.Bela Holt MD - 018 9:28 AM PDTPt weaned off PNB. Catheter pulled. Tip intact. Coag status normal prior to removal of catheter. APS will sign-off. Please pg APS [phone] with questions/concerns. Bela Holt MD APS # [id number] Lynda Basurto MD - 03/31/2018 9:14 AM [...] Orthopaedic Attending: Tati Cage 1985 32 y.o. [phone] [id number] 03/31/2018 03/23/2018 8 Macie Torre MD Diagnosis(es): [...] to make a follow up appointment in [facility] 2 weeks with ORTHO ONCOLOGY, Odalys Clarktiste - (Adela) Junaid Burrell MD Orthopaedic Surgery, R3 [id number] 03/31/2018 Cesia Gaitan MD - 03/30/2018 4:51 PM PDTAPS Clarification Note; Tonight the continuous rate on the nerve block will be to 0 ml/hr and bolus only will be in place. Catheter will be pulled Saturday morning. Cesia Gaitan MD [facility] [address] [facility], 4th Floor Mail Code: [id number], [place] [address] Rafael Shell MD - 03/30/2018 4:35 PM [...] on 03/17/18. - Pt beingfollowed by onc [facility], appreciate recs. Dr. Sandra Patel is her primary oncologist and she will have follow up on 04/09 to discuss cycle 3 planning. # mild LE edema Suspect due to IVF. - compression stocking to RLE. - will consider lasix # Pancytopenia # Kkgge-yv-etviqla anemia Likely hypoproliferationin setting of recentsystemic chemotherapy and acute inflammatio n. Will continue to monitor and transfuse as needed, goal >7. - She has received a total of 5 units of pRBCs at [facility] and 1 unit previously at [...] Rafael Shell PGY-2 Internal Medicine Pager # [phone] Associated attestation - Greg Edgar MD - [...] agreeable with our plans. Greg Edgar MD [facility] Medicine Teaching Attending I [...] 25 mg 25 mg oral Q6H PRN ejiswbbdbfHLXTY-ayziiovra-FOVUDS (SPECIAL MOUTHWASH) suspension (compound) 5 mL 5 [...] 25 mg 25 mg oral Q6H PRN eechswekoeHSIRF-fwqmstflv-TXROMZ (SPECIAL MOUTHWASH) suspension (compound) 5 mL 5 [...] Orthopaedic Attending: Tati Cage 1985 32 y.o. [id number] 03/30/2018 03/23/2018 7 Macie Torre MD Diagnosis(es): [...] to make a follow up appointment in [facility] 2 weeks with ORTHO ONCOLOGY, Odalys Stafford - (Sb and Jorge L) Adam Jean MD Pager: [phone] Dawit Amaya - 03/29/2018 4:46 PM PDTFormatting [...] on 03/17/18. - Pt beingfollowed by onc [facility], appreciate recs. Dr. Sandra Patel is her primary oncologist . Oncology team communicating with Dr. Patel. - Coordinating with onc and ortho regarding plan for timing of cycle 3 of chemotherapy, whi ch will need to be delayed to allow for healing after infection. # Pancytopenia # Dolby-ii-tetpueh anemia Likely hypoproliferationin setting of recentsystemic chemotherapy and acute inflammatio n. Will continue to monitor and transfuse as needed, goal >7. - Hg 6.8 this morning --> pRBC x1 today - She has received a total of 5 units of pRBCs at [facility] and 1 unit previously at [...] inpatient care Dawit Amaya, MS4 [facility] Pager [phone] Associated attestation - Greg Edgar MD - [...] agreeable with our plans. Greg Edgar MD [facility] Medicine Teaching Attending I [...] leave block today and wean tomorrow. Adam Jaen MD - 03/29/2018 5:15 AM PDTFormatting of this note may be different from th e original. Orthopaedic Surgery Progress Note Patient: /Age: MRN: CSN: Date: Admission Date: Hospital Day: Orthopaedic Attending: Tati Cage 1985 32 y.o. [id number] 03/29/2018 03/23/2018 6 Macie Torre MD Diagnosis(es): [...] to make a follow up appointment in [facility] 2 weeks with ORTHO ONCOLOGY, Odalys Stafford - (Adela) Adam Jean MD Pager: [phone] Dawit Amaya - 03/28/2018 1:33 PM PDTFormatting [...] in 4/5. Pathology Report from 03/24/18 left hbutz-bkv-bqao amputation site debridement: "A. Soft tissue, left [...] on 03/17/18. - Pt beingfollowed by onc [facility], appreciate recs. Dr. Sandra Patel is her primary oncologist . Oncology team will communicate with Dr. Patel. - Coordinating with onc and ortho regarding plan for timing of cycle 3 of chemotherapy, whi ch will need to be delayed to allow for healing after infection. # Pancytopenia # Zfkes-or-sinzhhk anemia Likely hypoproliferationin setting of recentsystemic chemotherapy and acute inflammatio n. Will continue to monitor and transfuse as needed, goal >7. - Hg 9.2 this morning. - She has received at total of 4 units of pRBCs at [facility] and 1 unit previously at [...] inpatient care Dawit Amaya, MS4 [facility] Pager [phone] Associated attestation - Greg Edgar MD - [...] agreeable with our plans. Greg Edgar MD [facility] Medicine Teaching Attending I spent 35 minutes in the care of this patient, >50% engaged in bedside counseling or coord ination of care with orthopedics. Junaid Burrell MD - 03/28/2018 12:58 PM PDTFormatting of this note may be different from the original. Orthopaedic Surgery Progress Note Patient: /Age: MRN: CSN: Date: Admission Date: Hospital Day: Orthopaedic Attending: Tati Cage 1985 32 y.o. [phone] [id number] 03/28/2018 03/23/2018 5 Macie Torre MD Diagnosis(es): [...] to make a follow up appointment in [facility] 2 weeks with ORTHO ONCOLOGY, Odalys [...] edge. 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 No kids. Lives with her mother Rose. [...] by primary care team. Madiha Rebollar DNP, [employer] [facility] [address] [place] [address] Lynda Basurto MD - 03/28/2018 8:06 AM [...] Ricardo Morales MD/PhD Anesthesiology CA-2 APS pager [phone] Amaya - 03/27/2018 6:39 AM PDTFormatting of [...] neutropenia after c hemotherapy. # Pancytopenia # Mserh-jg-ssxzgpb anemia Likely hypoproliferation in setting of recentsystemic chemotherapy and acute inflammation . Will continue to monitor and transfuse as needed, goal >7. - Hg 8.0 this morning prior to procedure today, 7.4 after. EBL of 200 mL during procedure. - She has received at total of 4 units of pRBCs at [facility] and 1 unit previously at [...] on 03/17/18. - Pt beingfollowed by onc [facility], appreciate recs. Dr. Sandra Patel [...] inpatient care Dawit Amaya, MS4 [facility] Pager [phone] Associated attestation - Greg Edgar MD - [...] agreeable with our plans. Greg Edgar MD [facility] Medicine Teaching Attending I [...] units of pRBCs have been given at [facility], with 1 unit given at [...] returning to the OR. # Pancytopenia # Wjwgq-vf-cjnvkda anemia Likely hypoproliferation in setting of recentsystemic chemotherapy and acute inflammation . No evidence of acute blood loss or hemolysis. Drainage from wound vac has been minimal. Wi ll continue to monitor and transfuse as needed, goal >7. - Hg improved to 9.2 today after an additional unit of pRBCs this morning. She has received at total of 4 units of pRBCs at [facility] and 1 unit previously at [...] 03/17/18. - Pt being followed by onc [facility], appreciate recs. Dr. Sandra Patel [...] Dispo: Continue inpatient care Dawit Stoutrell, MS4 [facility] Pager [phone] Associated attestation - Greg Edgar MD - [...] agreeable with our plans. Greg Edgar MD [facility] Medicine Teaching Attending I [...] Attending: Tati Wilkerson Niles 1985 32 y.o. [phone] [id number] 03/26/2018 03/23/2018 3 Macie Torre MD Diagnosis(es): [...] to make a follow up appointment in [facility] 2 weeks with ORTHO ONCOLOGY, Odalys [...] edge. Junaid Burrell MD Orthopaedic Surgery, R3 [id number] 03/26/2018 Greg Edgar MD - 03/25/2018 9:59 [...] agreeable with our plans. Greg Edgar MD [facility] Medicine Teaching Attending I [...] Orthopaedic Attending: Tati Cage 1985 32 y.o. [phone] [id number] 03/25/2018 03/23/2018 2 Macie Torre MD Diagnosis(es): [...] to make a follow up appointment in [facility] 2 weeks with ORTHO ONCOLOGY, Odalys [...] knee. Reflexes: not performed Sorin Aguirre MD [facility] Department of Orthopaedics & Rehabilitation [address] [place] [address] Mail Code: OP31 [facility] [address] Dawit Amaya Sho - 03/25/2018 7:30 AM [...] 03/17/18. - Pt being followed by onc [facility], appreciate recs. Dr. Sandra Patel [...] afternoon Code: Full Dispo: Continue inpatient care Dawti Amaya, MS4 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 Remainder of plan per her some internet sales associate note attached. Yves "Oc" MD [facility] [...] Events: - Irrigation and debridement of left hauah-auy-deqv amputation stump followed by wound vac placement, [...] inpatient care Dawit Amaya, MS4 [facility] Pager [phone] Burciaga MD,MPH - 03/24/2018 12:56 PM PDTFormatting [...] TSERING BURCIAGA MD,MPH PGY-5 Orthopaedic Surgery Pager: [phone] Rc Simpson MD - 03/24/2018 2:00 AM [...] Federico Simpson MD Orthopedic Surgery, R2 Pager [phone] in this encounter Plan of Treatment +--------+ + + + + | Date | Type | Specialty | Care Team | Description | +--------+ + + + + | 04/24/ | Appointment | Hematology & | Nurse, Hem Starter | | | 2017 | | Oncology | [address] [facility] | | | | | | [place] [address] | | +--------+ + + + + | 04/24/ | Office | Hematology & | Annie Gannon, | | | 2017 | Visit | Oncology | [facility] [address] | | | | | [address] | | | | | | [place], [place] | | | | | | [address] | | | | | | [phone] | | | | | | | | +--------+ + + + + | 04/24/ | Hospital | Adult Acute Care | [place]anna Mari, | | | 2017 | Encounter | | [address] | | | | | | [place], [place] | | | | | | [address] | | | | | | [phone] | | | | | | | [...] | | | | | | [place], [place] | | | | | | [address] | | | | | | [phone] | | | | | | | [...] | >60 | >60 mL/min | | [place] | | | + +---------+ + | EGFR NON | >60 | >60 mL/min | | -[place] | | | + +---------+ + [...] | + + + | Blood | [facility], CORE [address] [facility] | | | [place] [address] | + + + + + | [...] | + + + | Blood | [facility], CORE [address] [place] [address] | | | [place] [address] | + + + MANUAL DIFFERENTIAL (04/01/2018 [...] | + + + | Blood | [facility], CORE [address] [facility] | | | [place] [address] | + + + + + | [...] | + + + | Blood | [facility], CORE [address] [facility] | | | [place] [address] | + + + + + | [...] | + + + | Blood | [facility], CORE [address] | | | [place] [address] | + + + CBC, WITH DIFFERENTIAL [...] | ------ CBC AND AUTO | | DIFF[[id number]] Abnormal Final | | result MANUAL | | DIFFERENTIAL[[id number]] Abnormal Final | | result RBC | | MORPHOLOGY[[id number]] | | Final result Please view results [...] --------- | | ------ RETICULOCYTE | | COUNT[[id number]] Abnormal Final | | result Please view results for these tests on the | | individual orders. | + + CT LOWER EXTREMITY BILATERAL W CONTRAST (03/31/2018 5:09 PM) + + + | Specimen | Performing Laboratory | + + + | | [facility] RADIOLOGY VOICE RECOGNITION 2 | [...] The patient has | | a left blyug-uff-gsmr amputation. A surgical drain is present at [...] administered. FINDINGS: The patient has a left rwjng-jqr-jzcl amputation. A surgical | | drain is [...] 04/01/2018 4:58 PM | | Preliminary: Helder Romnao MD 04/01/2018 10:01 AM Dictation initiated: Helder [...] Laboratory | + + + | | [facility] RADIOLOGY VOICE RECOGNITION 2 | [...] | + + + | Blood | [facility], CORE [address] | | | [place] [address] | + + + + + | [...] | | ------ CBC (HEMOGRAM) | | ONLY[[id number]] Abnormal Final | | result Please view [...] | + + + | Blood | [facility], TRANSFUSION MEDICINE [address] [facility] [address] | | | [place] [address] | + + + COMPLETE METABOLIC SET [...] | >60 | >60 mL/min | | [place] | | | + +---------+ + | EGFR NON | >60 | >60 mL/min | | -[place] | | | + +---------+ + [...] | + + + | Blood | [facility] [address] | | | [place] [address] | + + + + + | [...] | + + + | Blood | [facility], CORE [address] | | | [place] [address] | + + + + + | [...] | + + + | Blood | [facility], TRANSFUSION MEDICINE [address] | | | [address] [place] [address] | + + + HAPTOGLOBIN (03/31/2018 11:33 AM) + +-------+ + | Component | Value | Ref Range | + +-------+ + | HAPTOGLOBIN | 187 | 30 - 200 mg/dL | + +-------+ + + + + | Specimen | Performing Laboratory | + + + | Blood | [facility], CORE [address] [facility] | | | [facility] [place] [address] | + + + LDH TOTAL, PLASMA [...] | + + + | Blood | [facility], CORE [address] [facility] | | | [place] [address] | + + + PRODUCT - RED CELLS LEUKOREDUCED (03/31/2018 5:58 AM) + + + + | Component | Value | Ref Range | + + + + | PRODUCT DESCRIPTION | -1 RED BLOOD CELL ADENINE-SALINE ADDED | | | | LEUKOCYTE | | + + + + | PRODUCT UNIT # | [id number] | | + + + + | UNIT ABO | A | | + + + + | UNIT RH | POS | | + + + + | STATUS OF UNIT | Presumed Transfused | | + + + + | EXPIRATION DATE | [id number] | | + + + + | BLOOD TYPE BARCODE | 6200 | | + + + + | BLOOD PRODUCT CODE | [id number] | | + + + + + + + | Specimen | Performing Laboratory | + + + | | [facility], TRANSFUSION MEDICINE [address] | | | [place] [address] | + + + PRODUCT - RED CELLS LEUKOREDUCED (03/31/2018 5:58 AM) + + + + | Component | Value | Ref Range | + + + + | PRODUCT DESCRIPTION | -1 RED BLOOD CELL ADENINE-SALINE ADDED | | | | LEUKOCYTE | | + + + + | PRODUCT UNIT # | [id number] | | + + + + | UNIT ABO | A | | + + + + | UNIT RH | POS | | + + + + | STATUS OF UNIT | Presumed Transfused | | + + + + | EXPIRATION DATE | [id number] | | + + + + | BLOOD TYPE BARCODE | 6200 | | + + + + | BLOOD PRODUCT CODE | [id number] | | + + + + + + + | Specimen | Performing Laboratory | + + + | | [facility], TRANSFUSION MEDICINE [address] [facility] | | | [address] [place] [address] | + + + PRODUCT - RED CELLS LEUKOREDUCED (03/31/2018 5:58 AM) + + + + | Component | Value | Ref Range | + + + + | PRODUCT DESCRIPTION | -1 RED BLOOD CELL ADENINE-SALINE ADDED | | | | LEUKOCYTE | | + + + + | PRODUCT UNIT # | [id number] | | + + + + | UNIT ABO | A | | + + + + | UNIT RH | POS | | + + + + | STATUS OF UNIT | Returned to Blood Bank | | + + + + | EXPIRATION DATE | [id number] | | + + + + | BLOOD TYPE BARCODE | 6200 | | + + + + | BLOOD PRODUCT CODE | [id number] | | + + + + + + + | Specimen | Performing Laboratory | + + + | | [facility], TRANSFUSION MEDICINE [address] [facility] | | | [place] [address] | + + + MANUAL DIFFERENTIAL (03/31/2018 [...] | + + + | Blood | [facility], CORE [address] [facility] | | | [place] [address] | + + + + + | [...] | + + + | Blood | [facility], CORE [address] [facility] | | | [place], [place] [address] | + + + + + | [...] | | ------ DIFFERENTIAL, | | ADD ON[[id number]] Final | | result MANUAL | | DIFFERENTIAL[[id number]] Abnormal Final | | result Please view [...] | + + + | Blood | [facility], CORE [address] | | | [place] [address] | + + + + + | [...] | >60 | >60 mL/min | | [place] | | | + +---------+ + | EGFR NON | >60 | >60 mL/min | | -[place] | | | + +---------+ + [...] | + + + | Blood | [facility], CORE [address] [place] [address] | | | [place] [address] | + + + + + | [...] | | ------ CBC (HEMOGRAM) | | ONLY[[id number]] Abnormal Final | | result Please view [...] | + + + | Blood | [facility], CORE [address] [facility] | | | [place] [address] | + + + CAPILLARY BLOOD GLUCOSE (NO CHG), POC (03/30/2018 1:30 PM) + +---------+ + | Component | Value | Ref Range | + +---------+ + | BLOOD GLUCOSE, POC | 135 (H) | 70 - 99 mg/dL | + +---------+ + + + + | Specimen | Performing Laboratory | + + + | | [address], POINT OF CARE TESTS [address] | | | [place] [address] | + + + CBC (HEMOGRAM) ONLY [...] | + + + | Blood | [facility], CORE [address] | | | [place] [address] | + + + + + | [...] | >60 | >60 mL/min | | [place] | | | + +---------+ + | EGFR NON | >60 | >60 mL/min | | -[place] | | | + +---------+ + [...] | + + + | Blood | [facility], [facility] [address] | | | [place] [address] | + + + + + | [...] | | ------ CBC (HEMOGRAM) | | ONLY[[id number]] Abnormal Final | | result Please view [...] | + + + | Blood | [facility], CORE [address] | | | [place] [address] | + + + + + | [...] | | ------ CBC (HEMOGRAM) | | ONLY[[id number]] Abnormal Final | | result Please view [...] | + + + | Blood | [facility], TRANSFUSION MEDICINE [address] [place] [address] | | | [place] [address] | + + + ABO & RH [...] | + + + | Blood | [facility], TRANSFUSION MEDICINE [address] [facility] | | | [place] [address] | + + + TYPE AND SCREEN [...] | ------ ABO & RH | | TYPE[[id number]] F | | inal result ANTIBODY | | SCREEN[[id number]] Fin | | al result Please view [...] + + | PRODUCT UNIT # | [id number] | | + + + + | UNIT ABO | A | | + + + + | UNIT RH | POS | | + + + + | STATUS OF UNIT | Presumed Transfused | | + + + + | EXPIRATION DATE | [id number] | | + + + + | BLOOD TYPE BARCODE | 6200 | | + + + + | BLOOD PRODUCT CODE | [id number] | | + + + + + + + | Specimen | Performing Laboratory | + + + | | [facility], TRANSFUSION MEDICINE [address] | | | [place] [address] | + + + CAPILLARY BLOOD GLUCOSE [...] [address] | | | [place] [address] | + + + CBC (HEMOGRAM) ONLY [...] | + + + | Blood | [facility], CORE [address] [facility] | | | [place] [address] | + + + + + | [...] | | ------ CBC (HEMOGRAM) | | ONLY[[id number]] Abnormal Final | | result Please view [...] | >60 | >60 mL/min | | [place] | | | + +---------+ + | EGFR NON | >60 | >60 mL/min | | -[place] | | | + +---------+ + [...] | + + + | Blood | [facility], CORE [address] [facility] | | | [place] [address] | + + + + + | [...] | + + + | Blood | [facility], CORE [address] [facility] | | | [place] [address] | + + + + + | [...] | + + + | Blood | [facility], CORE [address] [facility] | | | [place] [address] | + + + CBC AND AUTO [...] | + + + | Blood | [facility], [facility] [address] | | | [place] [address] | + + + + + | [...] | ------ CBC AND AUTO | | DIFF[[id number]] Abnormal Final | | result RBC | | MORPHOLOGY[[id number]] | | Final result Please view results [...] | >60 | >60 mL/min | | [place] | | | + + + + | EGFR NON | >60 | >60 mL/min | | -[place] | | | + + + + [...] | + + + | Blood | [facility], [place] [address] | | | [place] [address] | + + + + + | [...] | + + + | Blood | [facility], CORE [address] [facility] | | | [place] [address] | + + + + + | [...] | | ------ CBC (HEMOGRAM) | | ONLY[[id number]] Abnormal Final | | result Please view results for these tests on the | | individual orders. | + + OPERATION RECORD (03/27/2018 12:10 PM) + + | Procedure Note | + + | Lynda Basurto MD - 03/27/2018 12:10 PM PDT Date of Service: 03/27/2018 | | Attending Surgeon: Lynda Basurto MD Director Product Management(s): Odalys | | Mike Stafford PA-C. Please note no other qualified technology assistant was available. | | Preoperative Diagnosis: [...] closure of the fascia. This was a 10-Swiss | | channel drain. Please note, the [...] 03/27/2018 | | 11:18:37DT: 03/27/2018 12:10:06Job #: [id number] | + + CAPILLARY BLOOD GLUCOSE (NO CHG), POC (03/27/2018 12:06 PM) + +---------+ + | Component | Value | Ref Range | + +---------+ + | BLOOD GLUCOSE, POC | 125 (H) | 70 - 99 mg/dL | + +---------+ + + + + | Specimen | Performing Laboratory | + + + | | [facility], POINT OF CARE TESTS [address] | | | [place] [address] | + + + PROCEDURE NOTE (03/27/2018 [...] Laboratory | + + + | | [facility], POINT OF CARE TESTS [address] | | | [place] [address] | + + + CULTURE, TISSUE (03/27/2018 10:27 AM) + + + + | Component | Value | Ref Range | + + + + | CULTURE RESULT | Escherichia coli (A) | | + + + + + + + | Specimen | Performing Laboratory | + + + | Tissue - Leg | [facility] [address] [place], [place] | | | [address] | + + + + + | [...] + + | Tissue - Leg | [facility] [address] [place], [place] | | | [address] | + + + + + | [...] + + | Tissue - Leg | [facility] [place] [address] [place], [place] | | | [address] | + + + + + | [...] + + | Tissue - Leg | [facility] [place] [address] [place], [place] | | | [address] | + + + + + | [...] + + | Tissue - Leg | [facility] [place] [address] [place], [place] | | | [address] | + + + + + | [...] Laboratory | + + + | | [facility], POINT OF CARE TESTS [address] | | | [place] [address] | + + + RBC MORPHOLOGY (03/27/2018 3:56 AM) + +---------+ + | Component | Value | Ref Range | + +---------+ + | DOHLE BODIES | Present | | + +---------+ + | TOXIC GRANULATION | Present | | + +---------+ + + + + | Specimen | Performing Laboratory | + + + | Blood | [facility], CORE [address] [facility] | | | [place] [address] | + + + MANUAL DIFFERENTIAL (03/27/2018 [...] | + + + | Blood | [facility], CORE [address] [facility] | | | [place] [address] | + + + + + | [...] | + + + | Blood | [facility], CORE [address] [facility] | | | [place] [address] | + + + + + | [...] | >60 | >60 mL/min | | [place] | | | + +---------+ + | EGFR NON | >60 | >60 mL/min | | -[place] | | | + +---------+ + [...] | + + + | Blood | [facility], CORE [address] [place] [address] | | | [place] [address] | + + + + + | [...] | ------ CBC AND AUTO | | DIFF[[id number]] Abnormal Final | | result MANUAL | | DIFFERENTIAL[[id number]] Abnormal Final | | result RBC | | MORPHOLOGY[[id number]] | | Final result Please view results [...] | + + + | Blood | [facility], CORE [address] [facility] | | | [place] [address] | + + + + + | [...] | | ------ CBC (HEMOGRAM) | | ONLY[[id number]] Abnormal Final | | result Please view [...] | + + + | Blood | [facility], CORE [address] [facility] | | | [place] [address] | + + + COMPLETE METABOLIC SET [...] | >60 | >60 mL/min | | [place] | | | + +---------+ + | EGFR NON | >60 | >60 mL/min | | -[place] | | | + +---------+ + [...] | + + + | Blood | [facility], CORE [address] [place] [address] | | | [place] [address] | + + + + + | [...] + + | PRODUCT UNIT # | [id number] | | + + + + | UNIT ABO | A | | + + + + | UNIT RH | POS | | + + + + | STATUS OF UNIT | Presumed Transfused | | + + + + | EXPIRATION DATE | [id number] | | + + + + | BLOOD TYPE BARCODE | 6200 | | + + + + | BLOOD PRODUCT CODE | [id number] | | + + + + + + + | Specimen | Performing Laboratory | + + + | | [facility], [employer] [facility] [address] [place] [address] | | | [place] [address] | + + + VANCOMYCIN, TROUGH (03/26/2018 1:30 AM) + + + + | Component | Value | Ref Range | + + + + | VANCOMYCIN, TROUGH | 20.3 (H) | 10.0 - 20.0 ug/mL | + + + + + + + | Specimen | Performing Laboratory | + + + | Blood | [facility], CORE [address] [facility] | | | [facility] [address] | + + + CBC (HEMOGRAM) ONLY [...] | + + + | Blood | [facility], [facility] [address] | | | [place] [address] | + + + + + | [...] | | ------ CBC (HEMOGRAM) | | ONLY[[id number]] Abnormal Final | | result Please view [...] + + | PRODUCT UNIT # | [id number] | | + + + + | UNIT ABO | A | | + + + + | UNIT RH | POS | | + + + + | STATUS OF UNIT | Returned to Blood Bank | | + + + + | EXPIRATION DATE | [id number] | | + + + + | BLOOD TYPE BARCODE | 6200 | | + + + + | BLOOD PRODUCT CODE | [id number] | | + + + + + + + | Specimen | Performing Laboratory | + + + | | [facility], TRANSFUSION MEDICINE [address] [facility] | | | [place] [address] | + + + RBC MORPHOLOGY (03/25/2018 6:03 PM) + +---------+ + | Component | Value | Ref Range | + +---------+ + | DOHLE BODIES | Present | | + +---------+ + | TOXIC GRANULATION | Present | | + +---------+ + + + + | Specimen | Performing Laboratory | + + + | Blood | [facility], CORE [address] | | | [place] [address] | + + + MANUAL DIFFERENTIAL (03/25/2018 [...] | + + + | Blood | [facility], CORE [address] [facility] [address] | | | [place] [address] | + + + + + | [...] | + + + | Blood | [facility], CORE [address] [place] [address] | | | [place] [address] | + + + RETICULOCYTE COUNT, BLOOD [...] --------- | | ------ RETICULOCYTE | | COUNT[[id number]] Abnormal Final | | result Please view [...] | + + + | Blood | [facility], CORE [address] | | | [place] [address] | + + + + + | [...] | ------ CBC AND AUTO | | DIFF[[id number]] Abnormal Final | | result MANUAL | | DIFFERENTIAL[[id number]] Abnormal Final | | result RBC | | MORPHOLOGY[[id number]] | | Final result Please view results [...] | + + + | Blood | [facility], [facility] [address] [facility] | | | [place] [address] | + + + CBC AND AUTO [...] | + + + | Blood | [facility], CORE [address] [facility] | | | [place] [address] | + + + + + | [...] | >60 | >60 mL/min | | [place] | | | + +---------+ + | EGFR NON | >60 | >60 mL/min | | -[place] | | | + +---------+ + [...] | + + + | Blood | [facility], CORE [address] [facility] | | | [place] [address] | + + + + + | [...] | ------ CBC AND AUTO | | DIFF[[id number]] Abnormal Final | | result RBC | | MORPHOLOGY[[id number]] | | Final result Please view results [...] + + | PRODUCT UNIT # | [id number] | | + + + + | UNIT ABO | A | | + + + + | UNIT RH | POS | | + + + + | STATUS OF UNIT | Presumed Transfused | | + + + + | EXPIRATION DATE | [id number] | | + + + + | BLOOD TYPE BARCODE | 6200 | | + + + + | BLOOD PRODUCT CODE | [id number] | | + + + + + + + | Specimen | Performing Laboratory | + + + | | [facility], TRANSFUSION MEDICINE [address] [facility] | | | [place] [address] | + + + RBC MORPHOLOGY (03/25/2018 [...] | + + + | Blood | [facility], CORE [address] [facility] | | | [place] [address] | + + + MANUAL DIFFERENTIAL (03/25/2018 [...] | + + + | Blood | [facility], CORE [address] [place] [address] | | | [place] [address] | + + + + + | [...] | + + + | Blood | [facility], CORE [address] [facility] | | | [facility] [address] | + + + + + | [...] | ------ CBC AND AUTO | | DIFF[[id number]] Abnormal Final | | result MANUAL | | DIFFERENTIAL[[id number]] Abnormal Final | | result RBC | | MORPHOLOGY[[id number]] | | Final result Please view results [...] | + + + | Blood | [facility], CORE [address] [facility] | | | [place] [address] | + + + + + | Narrative | + + | Please draw Vancomycin trough immediately before the next dose. (~1630) Thank you! | + + DEBRIDEMENT OF BELOW KNEE AMPUTATION STUMP (03/24/2018 1:31 PM) + + | Narrative | + + | Macie Torre MD 03/24/2018 1:49 PM [facility] | | DEPARTMENT OF ORTHOPAEDICS & REHABILITATION OPERATIVE REPORT | | Patient Name: Tati | | Rhea Cage Date of : 1985 Contract | | Serial Number:: [id number] Report Author: MACIE TORRE MD Procedure Date: | | 03/24/2018 Attending Physician: 1. MACIE TORRE MD Director Product Management(s): | | 1. Tsering Burciaga MD Preoperative [...] muscle and fascia. Wound size | | [id number] after tacking back fascia Application of VAC [...] | | sponge in the remaining wound [id number]. Excellent seal was attained. The | | [...] discharge: [place] [facility] [place] [facility] MACIE TORRE MD 03/24/2018, | | [...] Laboratory | + + + | | [facility], POINT OF CARE TESTS [address] | | | [place] [address] | + + + SURGICAL PATHOLOGY (03/24/2018 [...] characteristics determined | | | | by [employer]. It has not been | | | [...] + + | Tissue - Leg | [facility] DEPARTMENT OF PATHOLOGY [address] [facility] | | | [place] [address] | + + + CULTURE, TISSUE (03/24/2018 [...] + + | Tissue - Leg | [facility] [address] [place], [place] | | | [address] | + + + + + | [...] + + | Tissue - Leg | [facility] [address] [place], [place] | | | [address] | + + + + + | [...] + + | Tissue - Leg | [facility] [place] [address] [place], [place] | | | [address] | + + + + + | [...] + + | Tissue - Leg | [facility] [place] [address] [place], [place] | | | [address] | + + + + + | [...] + + | Tissue - Leg | [facility] [address] [place], [place] | | | [address] | + + + + + | [...] + + | PRODUCT UNIT # | [id number] | | + + + + | UNIT ABO | A | | + + + + | UNIT RH | NEG | | + + + + | STATUS OF UNIT | Presumed Transfused | | + + + + | EXPIRATION DATE | [id number] | | + + + + | BLOOD TYPE BARCODE | 0600 | | + + + + | BLOOD PRODUCT CODE | [id number] | | + + + + + + + | Specimen | Performing Laboratory | + + + | | [facility], TRANSFUSION MEDICINE [address] [place] [address] | | | [place] [address] | + + + PRODUCT - RED CELLS LEUKOREDUCED (03/24/2018 9:15 AM) + + + + | Component | Value | Ref Range | + + + + | PRODUCT DESCRIPTION | -1 RED BLOOD CELL ADENINE-SALINE ADDED | | | | LEUKOCYTE | | + + + + | PRODUCT UNIT # | [id number] | | + + + + | UNIT ABO | A | | + + + + | UNIT RH | POS | | + + + + | STATUS OF UNIT | Presumed Transfused | | + + + + | EXPIRATION DATE | [id number] | | + + + + | BLOOD TYPE BARCODE | 6200 | | + + + + | BLOOD PRODUCT CODE | [id number] | | + + + + + + + | Specimen | Performing Laboratory | + + + | | [facility], TRANSFUSION MEDICINE [address] [facility] | | | [place] [address] | + + + PRODUCT - RED CELLS LEUKOREDUCED (03/24/2018 9:15 AM) + + + + | Component | Value | Ref Range | + + + + | PRODUCT DESCRIPTION | -1 RED BLOOD CELL ADENINE-SALINE ADDED | | | | LEUKOCYTE | | + + + + | PRODUCT UNIT # | [id number] | | + + + + | UNIT ABO | A | | + + + + | UNIT RH | POS | | + + + + | STATUS OF UNIT | Presumed Transfused | | + + + + | EXPIRATION DATE | [id number] | | + + + + | BLOOD TYPE BARCODE | 6200 | | + + + + | BLOOD PRODUCT CODE | [id number] | | + + + + + + + | Specimen | Performing Laboratory | + + + | | [facility], TRANSFUSION MEDICINE [address] [facility] | | | [place] [address] | + + + RBC MORPHOLOGY (03/24/2018 [...] | + + + | Blood | [facility], CORE [address] [place] [address] | | | [place] [address] | + + + MANUAL DIFFERENTIAL (03/24/2018 [...] | + + + | Blood | [facility], CORE [address] [facility] | | | [place] [address] | + + + + + | [...] | + + + | Blood | [facility], CORE [address] [facility] | | | [place] [address] | + + + + + | [...] | >60 | >60 mL/min | | [place] | | | + +---------+ + | EGFR NON | >60 | >60 mL/min | | -[place] | | | + +---------+ + [...] | + + + | Blood | [facility], CORE [address] [facility] | | | [place] [address] | + + + + + | [...] | ------ CBC AND AUTO | | DIFF[[id number]] Abnormal Final | | result MANUAL | | DIFFERENTIAL[[id number]] Abnormal Final | | result RBC | | MORPHOLOGY[[id number]] | | Final result Please view results [...] | + + + | Blood | [facility], CORE [address] [facility] | | | [place] [address] | + + + + + | [...] | | ------ CBC (HEMOGRAM) | | ONLY[[id number]] Abnormal Final | | result Please view [...] + + | PRODUCT UNIT # | [id number] | | + + + + | UNIT ABO | A | | + + + + | UNIT RH | POS | | + + + + | STATUS OF UNIT | Presumed Transfused | | + + + + | EXPIRATION DATE | [id number] | | + + + + | BLOOD TYPE BARCODE | 6200 | | + + + + | BLOOD PRODUCT CODE | [id number] | | + + + + + + + | Specimen | Performing Laboratory | + + + | | [facility], [facility] [place] [facility] [employer] [facility] [address] [place] [address] | | | [place] [address] | + + + C-REACTIVE PROTEIN (03/23/2018 4:44 PM) + + + + | Component | Value | Ref Range | + + + + | C-REACTIVE PROTEIN | 166.0 (H) | <10.0 mg/L | + + + + + + + | Specimen | Performing Laboratory | + + + | Blood | [facility], CORE [address] [facility] | | | [place] [address] | + + + + + | [...] | + + + | Blood | [facility], CORE [address] [place] [address] | | | [place] [address] | + + + D-DIMER, (PE OR DIC) (03/23/2018 4:44 PM) + + + + | Component | Value | Ref Range | + + + + | D-DIMER (PE OR DIC) | 0.62 (H) | <0.50 ug/mLFEU | + + + + + + + | Specimen | Performing Laboratory | + + + | Blood | [facility], CORE [address] | | | [place] [address] | + + + + + | [...] | + + + | Blood | [facility], CORE [address] [facility] | | | [place] [address] | + + + + + | [...] | + + + | Blood | [facility], CORE [address] [facility] | | | [place] [address] | + + + COMPLETE METABOLIC SET [...] | >60 | >60 mL/min | | [place] | | | + +---------+ + | EGFR NON | >60 | >60 mL/min | | -[place] | | | + +---------+ + [...] | + + + | Blood | [facility], CORE [address] [facility] [address] | | | [place] [address] | + + + + + | [...] | + + + | Blood | [facility], CORE [address] [facility] | | | [place] [address] | + + + RETICULOCYTE COUNT (03/23/2018 [...] | + + + | Blood | [facility], CORE [address] [facility] | | | [place] [address] | + + + RETICULOCYTE COUNT, BLOOD [...] --------- | | ------ RETICULOCYTE | | COUNT[[id number]] Abnormal Final | | result Please view [...] | + + + | Blood | [facility] SERVICES, TRANSFUSION MEDICINE [address] [facility] | | | [place] [address] | + + + CBC AND AUTO [...] | + + + | Blood | [facility], CORE [address] [facility] | | | [place] [address] | + + + + + | [...] | + + + | Blood | [facility] SERVICES, TRANSFUSION MEDICINE [address] [facility] | | | [address] [place] [address] | + + + SEDIMENTATION RATE (03/23/2018 4:41 PM) + +---------+ + | Component | Value | Ref Range | + +---------+ + | SEDIMENTATION RATE | 102 (H) | 0 - 20 mm/hr | + +---------+ + + + + | Specimen | Performing Laboratory | + + + | Blood | [facility], CORE [address] [facility] | | | [place] [address] | + + + + + | [...] | ------ CBC AND AUTO | | DIFF[[id number]] Abnormal Final | | result RBC | | MORPHOLOGY[[id number]] | | Final result Please view results for these tests on the | | individual orders. | + + CULTURE, BLOOD BACTI & YEAST [facility] (03/23/2018 4:40 PM) + + + + | Component | Value | Ref Range | + + + + | CULTURE RESULT | Final Report:No Bacteria or Yeast isolated | | | | at 5 days. | | + + + + + + + | Specimen | Performing Laboratory | + + + | Blood | [facility] SERVICES, CORE [address] [facility] | | | [place] [address] | + + + CULTURE, BLOOD BACTI [...] ------ CULTURE, BLOOD | | BACTI & Y...[[id number]] Final | | result Please view results [...] + + | Blood - Antecubital | [facility] SERVICES, CORE [address] [facility] | | - left | [place] [address] | + + + CULTURE, BLOOD BACTI [...] ------ CULTURE, BLOOD | | BACTI & Y...[[id number]] Final | | result Please view results [...] | + +---+ | | | | [id number] | | | (SPECIAL MOUTHWASH) suspension | [...] PDT | | | | | Starting [facility] 03/27/18 at 1027, | | | | | | | Until [facility] 03/27/18 at 1425, severe | | | [...]
--- OUTSIDE RECORDS SUMMARY | ~2018-04-16 | XMS | Encounter Summary ---
Demographics + + + | Address | [address] | | | [place] [address] | + + + | Home Phone [...] Providers + +------+ + | Care Sand Miller Name | Role | Phone | + +------+ + | Sanot Gooden MD | PCP | | + [...] | | 2017 | | [facility] [place] [facility] | | | | [facility] | | | | | | [address] | | | | | | Mailcode: CH7M | | | | | | [facility] | | | | | | and Healing, 7th | | | | | | Floor [place], [place] | | | | | | [address] | | | | | | [phone] | | | +--------+ + + + [...] [address] | | | | | | [place] [address] | | +--------+ + + + + | 04/24/ | Office | Hematology & | Annie Gannon, | | | 2017 | Visit | Oncology | AGACNP,INFORMATION AND DATA ARCHITECT ANALYST [address] | | | | | [address] | | | | | | [place], [place] | | | | | | [address] | | | | | | [phone] | | | | | | | | +--------+ + + + + | 04/24/ | Hospital | Adult Acute Care | Savanna Mari, | | | 2017 | Encounter | | MD [address] | | | | | | [place], [place] | | | | | | [address] | | | | | | [phone] | | | | | | | [...] [place] | | | | | | [address] | | | | | | [phone] | | | | | | | | +--------+ + + + + as of this encounter Visit Diagnoses Not on filein this encounter"
--- OUTSIDE RECORDS SUMMARY | ~2018-04-16 | XMS | Encounter Summary ---
Demographics + + + | Address | [address] | | | [place] [address] | + + + | Home Phone [...] Team Providers + +------+ + | Care Auxiliary Powerplant Operator Name | Role | Phone | [...] + + | 03/12/ | Hospital | [facility] [address] | Guero Vargas, | | | 2018 - | Encounter | Federico Weathers | [address] | | | | | Road Mailcode: | [place], [place] | | | 03/15/ | | [id number] ANITA | [address] | | | 2017 | | [place], | [phone] | | | | | [place] [address] | | | | | | [phone] | | | +--------+ + + + [...] note may be different from the original. [facility] Discharge Summary Discharging Provider: Leo Kim Discharging [...] with close monitoring. - blankta scheduled @ [facility] for 03/17 @ 10am. labs and port care @ [facility] start 03/21. Chemotherapy: C2D1 03/12/18 Ifos 2500mg/m^2 x 2.6 m^2with Mesna 2200mg in NaCl 0.9% for 2hrs q20hrs x 4doses Epirubicin 30mg/m2 x x 2.6 m^4n39vid x 4doses Mesna 2200mg for 15minutes to [...] RLE:has not improved much since dc from [facility] 1 week ago, pt also havin [...] home dose Citalopram 40mg daily - start Qjjajxkysv29um qhs adjunct to citalopram and for CINV [...] 2 without complication - neulasta scheduled @ [facility] for 03/17 @ 10am. labs and port care @ [facility] start 03/21. Chemotherapy: C2D1 03/12/18 Ifos 2500mg/m^2 x 2.6 m^2with Mesna 2200mg in NaCl 0.9% for 2hrs q20hrs x 4doses Epirubicin 30mg/m2 x x 2.6 m^7v17kly x 4doses Mesna 2200mg for 15minutes to [...] RLE:has not improved much since dc from [facility] 1 week ago, pt also havin [...] home dose Citalopram 40mg daily - start Odkgdjshft48zi qhs adjunct to citalopram and for CINV [...] Discharge Medications: Tati Cage Home Medication Instructions [id number] Printed on:03/15/18 9576 Medication Information citalopram 40 mg oral tablet [...] Take 25 mg by mouth once daily. Nybkvjqah-Geyvpxnfg-Qt-Mag-Sim [id number] mg/30 mL mucous membrane mouthwash Take 5 [...] as needed for anxiety (1st line nausea/vomiting). [facility] commode for nighttime use following foot [...] on weekends call paging stephanie barajas at [phone] ask for transportation escort doctor for Heme-Onc if you have any [...] PM Hem Starter Nurse Hematology/Medical Oncology at [facility] [phone] HemOn 04/02/2018 3:00 PM Lynda Basurto [facility] Orthopaedics & Rehabilitation [phone] [place] 04/02/2018 3:40 PM Sandra Patel Hematology/Medical Oncology at [place] [address] [phone] [place] Schedule the following appointment(s) when you get home [facility] - Infusion. Go on 03/17/2018. Why: neulasta and labs appointment @ 10am. please make appointments for weekly lab draws while you're in. Contact information Phone #: [phone] Discharge Physical Exam: Last 24 hour min/max [...] tonight and receive GCSF on Saturday at [facility]. We had to reduce t he dosage of dexamethasone due to insomnia and anxiety. This should be taken into considera tion for future admissions. Guero Vargas MD Mill Tender Second Operatorclient development consultant Medical Oncology and Hematology in this encounter [...] with close monitoring. - torie scheduled @ [facility] for 03/17 @ 10am. labs and port care @ [facility] start 03/21. Chemotherapy: C2D1 03/12/18 Ifos 2500mg/m^2 x 2.6 m^2 with Mesna 2200mg in NaCl 0.9% for 2hrs q20hrs x 4doses Epirubicin 30mg/m2 x x 2.6 m^7y35ewo x 4doses Mesna 2200mg for 15minutes to [...] RLE:has not improved much since dc from [facility] 1 week ago, pt also havin [...] home dose Citalopram 40mg daily - start Xtofjaigmo03sp qhs adjunct to citalopram and for CINV [...] Full CAMRYN FLYNN PA-C Medical Oncology/Hematology pager #[phone] Associated attestation - Guero Vargas MD - [...] There are no signs of ifos induced DIRECTOR DIABETES toxicity. She is on clindamycin for her left stump incision which had early signs of in fection. Given that she will become neutropenic I have recommended prophylactic antibtoics. She displays no signs of infection. Guero Vargas MD Mill Tender Second Operatorclient development consultant Medical Oncology and Hematology in this encounter Plan of Treatment +--------+ + + + + | Date | Type | Specialty | Care Team | Description | +--------+ + + + + | 04/24/ | Appointment | Hematology & | Nurse, Hem Starter | | | 2017 | | Oncology | [address] [facility] | | | | | | [place] [address] | | +--------+ + + + + | 04/24/ | Office | Hematology & | Annie Gannon, | | | 2017 | Visit | Oncology | ROME,SEALER SANDER [address] | | | | | [address] | | | | | | [place], [place] | | | | | | [address] | | | | | | [phone] | | | | | | | | +--------+ + + + + | 04/24/ | Hospital | Adult Acute Care | Savanna Mari, | | | 2018 | Encounter | | [address] | | | | | | [place], [place] | | | | | | [address] | | | | | | [phone] | | | | | | | [...] [address] | | | | | | [place], [place] | | | | | | [address] | | | | | | [phone] | | | | | | | [...] | + + + | Urine | [facility] LABORATORY SERVICES, CORE [address] | | | [place] [address] | + + + URINE, MICROSCOPIC EXAM [...] | + + + | Urine | [facility], CORE [address] [facility] | | | [place] [address] | + + + URINE, MICROSCOPIC EXAM [...] | + + + | Urine | [facility], CORE [address] [facility] | | | [place] [address] | + + + VASC LAB VENOUS DUPLEX LOWER EXTREMITY RT (03/13/2018 12:08 PM) + + + | Specimen | Performing Laboratory | + + + | | [facility] RADIOLOGY VASC US | + + + [...] | | | | HOURS NEEDED, Starting [facility] | | PDT | | | | [...]
--- OUTSIDE RECORDS SUMMARY | ~2018-04-16 | XMS | Clinical Summary ---
Demographics + + + | Address | [address] | | | [place] [address] | + + + | Home Phone | | + + + | Preferred Language | Unknown | + + + | Marital Status | Single | + + + | Advent Affiliation | Unknown | + + + | Race | Unknown | + + + | Ethnic Group | Unknown | + + + Author + + + | Author | [facility] | | | and [place] | + + + | Organization | [facility] | | | and [facility] [...] Team Providers + +------+ + | Care Range Conservationist Name | Role | Phone | + [...] | + + +-------+---------+------+------+-------+ | naproxen | Take 500 mg by mouth | | | | | Activ | | (NAPROSYN) [...] | | + + +-------+---------+------+------+-------+ | | Take 25 mg by mouth | | | | | Activ | | hydroCHLOROthiazide | Daily. | | | | | e | | 25 mg tablet | | | | | | | + + +-------+---------+------+------+-------+ | sertraline | Take 200 mg by mouth | | | | | Activ | | (ZOLOFT) 100 mg | Daily. 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) | +--------+ + + + + from Last 3 Months Social History + +-------+ +--------+------+ | Tobacco [...] Weight | 163.7 kg (361 lb) | 10/23/20161401 PST | + + + + | Height | 170.2 cm (5' 7") | 10/23/20161401 PST | + + + + | Body Mass Index | 56.54 | 10/23/2016 1402 PST | + + + + Plan [...] filefrom Last 3 Months Insurance + +--------+ +--------+-------+---------+ | Payer | Benefi | Subscriber | Type | Phone | Address | | | t Plan | ID | | | | | | / | | | | | | | Group | | | | | + +--------+ +--------+-------+---------+ | BCBS | BCBS | [id number] | PPO | | | | | [place] | | | | | | | L FEP | | | | | + +--------+ +--------+-------+---------+ | [facility] | IHS | [id number] | Indemn | | | | SERVICE | YELLOW | | ity | | | | | HAWK | | | | | + +--------+ +--------+-------+---------+ + +--------+ +--------+ + + | Guarantor Name | Accoun | Relation to | Date | Phone | Billing Address | | | t Type | Patient | of | | | | | | | | | | + +--------+ +--------+ + + | ANNIKA CAGE | Person | Self [birth year] Home: | [address] | | | al/Lopez | | [phone] | [phone] | [place] [address] | | | emerita | | | [phone] | | + +--------+ +--------+ + +
--- OUTSIDE RECORDS SUMMARY | ~2018-04-16 | XMS | Encounter Summary ---
Demographics + + + | Address | [address] | | | [place] [address] | + + + | Home Phone [...] Author + + + | Author | [facility] | + + + | Organization | [facility] | + + + | Address | Unknown | + + + | Phone | Unavailable | + + + Support + + +---------+ + | Name | Relationship | Address | Phone | + + +---------+ + | ROSE BOWENS | ECON | Unknown | | + + +---------+ + Care Team Providers + +------+ + | Care Blacking Machine Operator Name | Role | Phone | + +------+ + | Santo Gooden MD | PCP | | + +------+ + Encounter Details +--------+ + + + + | Date | Type | Department | Care Team | Description | +--------+ + + + + | 02/05/ | Campus Rep | LAB CORE [address] | Fabio Blackmon | Preop examination | | 2018 | | Federico Rogers MD [address] | (Primary Dx) | | | | Road [place], [place] | [address] | | | | | [address] | [place], [place] | | | | | [phone] | [address] | | | | | | [phone] | | | | | | | [...] 2017 | | Oncology | [address] [facility] | | | | | | [place] [address] | | +--------+ + + + + | 04/24/ | Office | Hematology & | Annie Gannon, | | | 2017 | Visit | Oncology | AG[place]HANA[place],ADOBE CQ DEVELOPER [address] | | | | | | [address] | | | | | | [place], [place] | | | | | | [address] | | | | | | [phone] | | | | | | | | +--------+ + + + + | 04/24/ | Hospital | Adult Acute Care | Savanna Mari, | | | 2017 | Encounter | | [address] | | | | | | [place], [place] | | | | | | [address] | | | | | | [phone] | | | | | | | [...] [place] | | | | | | [address] | | | | | | [phone] | | | | | | | [...] + + + | Blood | [facility] LABOR[facility]ORY SERVICES, TRANSFUSION MEDICINE [address] [facility] | | | [place] [address] | + + + in this encounter Visit Diagnoses + + | Diagnosis | + + | Preop examination - Primary | + + | Preoperative examination, unspecified | + +"
--- OUTSIDE RECORDS SUMMARY | ~2018-04-16 | XMS | Encounter Summary ---
Demographics + + + | Address | [address] | | | [place] [address] | + + + | Home Phone [...] Team Providers + +------+ + | Care Field Support Engineer Name | Role | Phone | [...] (Work release | | 2018 | | [facility] [address] | [address] [facility] | letter) | | | | Sonia Mailcode: CH12A | [address] | | | | | [facility] | [place], [place] | | | | | and [facility] | [address] | | | | | Floor [place], [place] | [phone] | | | | | [address] | | | | | | [phone] | | | +--------+ + + + [...] [address] | | | | | | [place] [address] | | +--------+ + + + + | 04/24/ | Office | Hematology & | Annie Gannon, | | | 2017 | Visit | Oncology | AGASHANAE,SECURITY TEST ENGINEER [address] | | | | | | [address] | | | | | | [place], [place] | | | | | | [address] | | | | | | [phone] | | | | | | | | +--------+ + + + + | 04/24/ | Hospital | Adult Acute Care | Savanna Mari, | | | 2017 | Encounter | | [address] | | | | | | [place], [place] | | | | | | [address] | | | | | | [phone] | | | | | | | [...] Scott | | | | | | [place], [place] | | | | | | [address] | | | | | | [phone] | | | | | | | | +--------+ + + + + as of this encounter Visit Diagnoses Not on filein this encounter"
--- OUTSIDE RECORDS SUMMARY | ~2018-04-16 | XMS | Encounter Summary ---
Demographics + + + | Address | [address] | | | [place] [address] | + + + | Home Phone [...] Team Providers + +------+ + | Care Millwright Instructor Name | Role | Phone | [...] | | 2017 | | Oncology at [facility] | | | | | | [facility] | | | | | | [address] | | | | | | Mailcode: CH7M | | | | | | [facility] | | | | | | and Healing, 7th | | | | | | Floor [place], [place] | | | | | | [address] | | | | | | [phone] | | | +--------+ + + + [...] Road | | | | | | [place] [address] | | +--------+ + + + + | 04/24/ | Office | Hematology & | Annie Gannon, | | | 2017 | Visit | Oncology | ROME,SOFTWARE ENGINEER DEVELOPER [address] | | | | | | [address] | | | | | | [place], [place] | | | | | | [address] | | | | | | [phone] | | | | | | | | +--------+ + + + + | 04/24/ | Hospital | Adult Acute Care | Savanna Mari, | | | 2017 | Encounter | | MD [address] | | | | | | [place], [place] | | | | | | [address] | | | | | | [phone] | | | | | | | [...] Scott | | | | | | [place], [place] | | | | | | [address] | | | | | | [phone] | | | | | | | | +--------+ + + + + as of this encounter Visit Diagnoses Not on filein this encounter"
--- OUTSIDE RECORDS SUMMARY | ~2018-04-16 | XMS | Encounter Summary ---
Demographics + + + | Address | [address] | | | [place] [address] | + + + | Home Phone [...] Author + + + | Author | [facility] | + + + | Organization | [facility] | + + + | Address | Unknown | + + + | Phone | Unavailable | + + + Support + + +---------+ + | Name | Relationship | Address | Phone | + + +---------+ + | ROSE BOWENS | ECON | Unknown | | + + +---------+ + Care Team Providers + +------+ + | Care Locker Room Clerk Name | Role | Phone | + +------+ + | Santo Gooden MD | PCP | | + +------+ + Encounter Details +--------+ + + + + | Date | Type | Department | Care Team | Description | +--------+ + + + + | 03/24/ | Procedure | 6A Intra Op [facility] | | | | 2017 | Pass | [facility] | | | | | | Admitting Desk | | | | | | Located on the 9th | | | | | | floor [address] [facility] | | | | | | [facility] | | | | | | [place], [place] | | | | | | [address] | | | +--------+ + + + [...] | Oncology | [address] [facility] | | | | | | [place] [address] | | +--------+ + + + + | 04/24/ | Office | Hematology & | Annie Gannon, | | | 2017 | Visit | Oncology | [facility],REHABILITATION MANAGER [address] | | | | | | [address] | | | | | | [place], [place] | | | | | | [address] | | | | | | [phone] | | | | | | | | +--------+ + + + + | 04/24/ | Hospital | Adult Acute Care | Savanna Mari, | | | 2017 | Encounter | | [address] | | | | | | [place], [place] | | | | | | [address] | | | | | | [phone] | | | | | | | [...] Scott | | | | | | [place], [place] | | | | | | [address] | | | | | | [phone] | | | | | | | | +--------+ + + + + as of this encounter Visit Diagnoses Not on filein this encounter"
--- OUTSIDE RECORDS SUMMARY | ~2018-04-16 | XMS | Encounter Summary ---
Demographics + + + | Address | [address] | | | [place] [address] | + + + | Home Phone [...] Team Providers + +------+ + | Care Clinical Data Assistant Name | Role | Phone | [...] | | 2018 | | Oncology at [facility] | [address] | | | | | for Health [facility] Healing | [place], [place] | | | | | [address] | [address] | | | | | Mailcode: [place] | [phone] | | | | | [facility] | | | | | | and [place], | | | | | | Floor [facility] [place] | | | | | | [address] | | | | | | [phone] | | | +--------+ + + + [...] Road | | | | | | [place] [address] | | +--------+ + + + + | 04/24/ | Office | Hematology & | Annie Gannon, | | | 2017 | Visit | Oncology | ROME,EMBOSSING MACHINE OPERATOR HELPER [address] | | | | | [address] | | | | | | [place], [place] | | | | | | [address] | | | | | | [phone] | | | | | | | | +--------+ + + + + | 04/24/ | Hospital | Adult Acute Care | Savanna Mari, | | | 2017 | Encounter | | [address] | | | | | | [place], [place] | | | | | | [address] | | | | | | [phone] | | | | | | | [...] [address] | | | | | | [place], [place] | | | | | | [address] | | | | | | [phone] | | | | | | | | +--------+ + + + + as of this encounter Visit Diagnoses Not on filein this encounter"
--- OUTSIDE RECORDS SUMMARY | ~2018-04-16 | XMS | Encounter Summary ---
Demographics + + + | Address | [address] | | | [place] [address] | + + + | Home Phone [...] Providers + +------+ + | Care Assistant Chief Of Police Name | Role | Phone | + +------+ + | Santo Gooden MD | PCP | | + +------+ + Encounter Details +--------+ + + + + | Date | Type | Department | Care Team | Description | +--------+ + + + + | 02/26/ | Telephone | Hematology/Medical | Ann Davis, | | | 2017 | | Oncology at [place] | PharmD [address] | | | | | [facility] | [address] | | | | | [address] | [place], [place] | | | | | Mailcode: CH7M | [address] | | | | | [facility] | | | | | | and Healing, [facility] | | | | | | [place], [place] | | | | | | [address] | | | | | | [phone] | | | +--------+ + + + [...] Road | | | | | | [place] [address] | | +--------+ + + + + | 04/24/ | Office | Hematology & | Annie Gannon, | | | 2017 | Visit | Oncology | ROME,DRUM STRAIGHTENER [address] | | | | | | [address] | | | | | | [place], [place] | | | | | | [address] | | | | | | [phone] | | | | | | | | +--------+ + + + + | 04/24/ | Hospital | Adult Acute Care | Savanna Mari, | | | 2017 | Encounter | | MD [address] | | | | | | [place], [place] | | | | | | [address] | | | | | | [phone] | | | | | | | [address] | | | | | | [place], [place] | | | | | | [address] | | | | | | [phone] | | | | | | | | +--------+ + + + + as of this encounter Visit Diagnoses Not on filein this encounter"
--- OUTSIDE RECORDS SUMMARY | ~2018-04-16 | XMS | Encounter Summary ---
Demographics + + + | Address | [address] | | | [place] [address] | + + + | Home Phone [...] Team Providers + +------+ + | Care Promotion Writer Name | Role | Phone | [...] [address] | | | | | Road [place], [place] | [address] | | | | | [address] | [place], [place] | | | | | [phone] | [address] | | | | | | [phone] | | | | | | | [...] 2017 | | Oncology | [address] [facility] | | | | | | [place] [address] | | +--------+ + + + + | 04/24/ | Office | Hematology & | Annie Gannon, | | | 2017 | Visit | Oncology | AGASHANAE,SALES AND SERVICE ENGINEER [address] | | | | | | [address] | | | | | | [place], [place] | | | | | | [address] | | | | | | [phone] | | | | | | | | +--------+ + + + + | 04/24/ | Hospital | Adult Acute Care | Savanna Mari, | | | 2017 | Encounter | | [address] | | | | | | [place], [place] | | | | | | [address] | | | | | | [phone] | | | | | | | | +--------+ + + + + | 05/15/ | Appointment | Hematology & | | | | 2017 | | Oncology | | | +--------+ + + + + | 05/15/ | Office | Hematology & | Sandra Patel MD | | | 2017 | Visit | Oncology | [address] | | | | | | [place], [place] | | | | | | [address] | | | | | | [phone] | | | | | | | | +--------+ + + + + as of this encounter Results SPECIMEN ROUTING TO KDL (01/22/2018 2:20 PM) + + + | Specimen | Performing Laboratory | + + + | Slide-Block | [facility] [address] | [address] [place] [address] | + + + in this encounter Visit Diagnoses + + | Diagnosis | + + | Localized swelling, mass and lump, left lower limb | + +"
--- OUTSIDE RECORDS SUMMARY | ~2018-04-16 | XMS | Encounter Summary ---
Demographics + + + | Address | [address] | | | [place] [address] | + + + | Home Phone [...] Team Providers + +------+ + | Care Gerentological Physiotherapist Name | Role | Phone | + [...] | | 2017 | | Oncology at [facility] | | | | | | [facility] Healing | | | | | | [address] | | | | | | Mailcode: CH7M | | | | | | [facility] | | | | | | and Healing, 7th | | | | | | Floor [place], [place] | | | | | | [address] | | | | | | [phone] | | | +--------+ + + + [...] Road | | | | | | [place] [address] | | +--------+ + + + + | 04/24/ | Office | Hematology & | Annie Gannon, | | | 2017 | Visit | Oncology | ROME,CHAMFERING MACHINE OPERATOR [address] | | | | | | [address] | | | | | | [place], [place] | | | | | | [address] | | | | | | [phone] | | | | | | | | +--------+ + + + + | 04/24/ | Hospital | Adult Acute Care | Savanna Mari, | | | 2017 | Encounter | | MD [address] | | | | | | [place], [place] | | | | | | [address] | | | | | | [phone] | | | | | | | [...] [address] | | | | | | [place], [place] | | | | | | [address] | | | | | | [phone] | | | | | | | | +--------+ + + + + as of this encounter Visit Diagnoses Not on filein this encounter"
--- OUTSIDE RECORDS SUMMARY | ~2018-04-16 | XMS | Encounter Summary ---
Demographics + + + | Address | [address] | | | [place] [address] | + + + | Home Phone [...] Team Providers + +------+ + | Care Estate Administrator Name | Role | Phone | [...] [address] | | | | | | [place] [address] | | | | | | [phone] | | | +--------+ + + + [...] Hospital | | | | | | [place] [address] | | +--------+ + + + + | 04/24/ | Office | Hematology & | Annie Gannon, | | | 2017 | Visit | Oncology | ROME,BLENDING KETTLE TENDER [address] | | | | | | [address] | | | | | | [place], [place] | | | | | | [address] | | | | | | [phone] | | | | | | | | +--------+ + + + + | 04/24/ | Hospital | Adult Acute Care | Savanna Mari, | | | 2017 | Encounter | | [address] | | | | | | [place], [place] | | | | | | [address] | | | | | | [phone] | | | | | | | [...] Scott | | | | | | [facility] [place] | | | | | | [address] | | | | | | [phone] | | | | | | | | +--------+ + + + + as of this encounter Visit Diagnoses Not on filein this encounter"
--- OUTSIDE RECORDS SUMMARY | ~2018-04-16 | XMS | Encounter Summary ---
Demographics + + + | Address | [address] | | | [place] [address] | + + + | Home Phone [...] Providers + +------+ + | Care Test Tech Name | Role | Phone | [...] | | | Sarcoma | [place] | [facility] | | | | | (HCC) L | Health | Rd | | | | | Foot Mass | Center | [place], [place] | | | | | (Sarcoma) | [address] | [address] | | | | | | [place] | Phone: | | | | | | Way | [phone] | | | | | | [place], | Fax: | | | | | | [place] [address] | [phone] | | | | | | Phone: | | | | | | | [phone] | | | | | | | Fax: | | | | | | | [phone] | | +--------+--------+ + + + + Encounter Details +--------+---------+ + + + | Date | Type | Department | Care Team | Description | +--------+---------+ + + + | 01/15/ | Office | Orthopaedics at | Lynda Basurto, | Mass of left foot | | 2018 | Visit | [facility] [address] | [address] | (Primary Dx) | | | | Ave Mailcode: CH12A | [address] | | | | | [facility] | [place], [place] | | | | | and Silas | [address] | | | | | Floor [place], [place] | [phone] | | | | | [address] | | | | | | [phone] | | | +--------+---------+ + + + [...] putting on certain shoes now. [place] 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 The patient denies constitutional symptoms, including weight [...] signs are noted as recorded by the Time Study Clerk. General: Alert, awake, and oriented x3. No [...] 2018 | | Oncology | [address] | | | | | | [place] [address] | | +--------+ + + + + | 04/24/ | Office | Hematology & | Annie Gannon, | | | 2018 | Visit | Oncology | AGACNP,FINANCIAL AID COORDINATOR [address] | | | | | [address] | | | | | | [place], [place] | | | | | | [address] | | | | | | [phone] | | | | | | | | +--------+ + + + + | 04/24/ | Hospital | Adult Acute Care | Savanna Mari, | | | 2018 | Encounter | | [address] | | | | | | [place], [place] | | | | | | [address] | | | | | | [phone] | | | | | | | [...] Scott | | | | | | [place], [place] | | | | | | [address] | | | | | | [phone] | | | | | | | | +--------+ + + + + as of this encounter Procedures + +--------+ + + + | Procedure Name | Priori | Date/Time | Associated Diagnosis | Comments | | | ty | | | | + +--------+ + + + | [place] NEEDLE | Routin | 01/15/2018 | Mass [...] | | | | cells had a [id number] split signal | | | | pattern [...] by the clinical | | | | contact lens manufacturer. | | + + + + | CELLS SCORED SMITH | 100 | | | SS18 ([id number]) | | | | BREAK-APART | | | + + + + + + + | Specimen | Performing Laboratory | + + + | Muscle - Slide-Block | [facility] [address] | | | [address] [place] [address] | + + + FISH, MOLECULAR PROBE, MARYBETH (01/15/2018 11:45 AM) + + + + | Component | Value | Ref Range | + + + + | DISCLAIMER | This test was developed and its performance | | | | characteristics determined by the [facility] | | | | [facility]. It has | | | [...] 1988 | | | | (CLIA). The [facility] | | | | Laboratories are fully licensed by the | | | | [facility] under CLIA and are | | | | accredited by the [employer] | | | | Pathologists (CAP). Laboratory | | | | Director: Kemar Kramer M.D., | | | | Ph.D Electronically reviewed and signed | | | | by:Justin Lu, PhD, [facility] | | | | Tour Actor Clinical Molecular | | | | Geneticist01/23/2018 at 1:21 PM Reviewed | | | | and electronically signed by JAMARI | | | | MD CLAIRE,[facility]01/23/2018 5:14 PM | | + + + + + + + | Specimen | Performing Laboratory | + + + | Muscle - Slide-Block | [facility] [place] [id number] | | | [address] [place] [address] | + + + SURGICAL PATHOLOGY (01/15/2018 [...] medical record number | | | | [id number]. A. Foot - left: Received labeled | [...] characteristics determined | | | | by [employer]. It has not been | | | [...] | | | | characteristics determined by [facility] | | | | laboratories.It has not [...] | Muscle - Foot - left | [facility] DEPARTMENT OF PATHOLOGY [address] | | | [place] [address] | + + + in this encounter [...]
--- OUTSIDE RECORDS SUMMARY | ~2018-04-16 | XMS | Encounter Summary ---
Demographics + + + | Address | [address] | | | [place] [address] | + + + | Home Phone [...] + + | Author | [facility] | + + + | Organization | [facility] | + + + | Address | Unknown | + + + | Phone | Unavailable | + + + Support + + +---------+ + | Name | Relationship | Address | Phone | + + +---------+ + | ROSE BOWENS | ECON | Unknown | | + + +---------+ + Care Team Providers + +------+ + | Care Sap Consultant Name | Role | Phone | [...] | | 2018 | | [facility] [address] | [address] | swelling; Medication | | | | Ave Mailcode: CH12A | [address] | requested (Pain | | | | [place] [facility] | [place], [place] | Meds ) | | | | and Healing, | [address] | | | | | Floor [place], [place] | [phone] | | | | | [address] | | | | | | [phone] | | | +--------+ + + + [...] Jackman | | | | | | [place] [address] | | +--------+ + + + + | 04/24/ | Office | Hematology & | Annie Gannon, | | | 2017 | Visit | Oncology | AGASHANAE,DIRECTOR TRAFFIC AND PLANNING [address] | | | | | [address] | | | | | | [place], [place] | | | | | | [address] | | | | | | [phone] | | | | | | | | +--------+ + + + + | 04/24/ | Hospital | Adult Acute Care | Savanna Mari, | | | 2018 | Encounter | | [address] | | | | | | [place], [place] | | | | | | [address] | | | | | | [phone] | | | | | | | [...] | | | | | | [place] | | | | | | [address] | | | | | | [phone] | | | | | | | | +--------+ + + + + as of this encounter Visit Diagnoses Not on filein this encounter"
--- OUTSIDE RECORDS SUMMARY | ~2018-04-16 | XMS | Encounter Summary ---
Demographics + + + | Address | [address] | | | [place] [address] | + + + | Home Phone [...] Providers + +------+ + | Care Air Traffic Control Manager Name | Role | Phone | [...] + + | 03/12/ | Office | [facility] Orthopaedics | Sb GallegosAlexander, | 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 | & Rehabilitation | [address] | ([facility]) (Primary Dx) | | | | [address] | [address] | | | | | Mailcode: CH12A | [place], [place] | | | | | [facility] | [address] | | | | | and Healing | [phone] | | | | | [place], [place] | | | | | | [address] | | | | | | [phone] | | | +--------+---------+ + + + [...] | | 2018 | | Oncology | [address] | | | | | | [place] [address] | | +--------+ + + + + | 04/24/ | Office | Hematology & | Annie Gannon, | | | 2017 | Visit | Oncology | AGACNP,APPRENTICESHIP CONSULTANT [address] | | | | | [address] | | | | | | [place], [place] | | | | | | [address] | | | | | | [phone] | | | | | | | | +--------+ + + + + | 04/24/ | Hospital | Adult Acute Care | Savanna Mari, | | | 2017 | Encounter | | [address] | | | | | | [place], [place] | | | | | | [address] | | | | | | [phone] | | | | | | | [...] Scott | | | | | | [place], [place] | | | | | | [address] | | | | | | [phone] | | | | | | | | +--------+ + + + + as of this encounter Visit Diagnoses + + | Diagnosis | + + | Synovial sarcoma (HCC) - Primary | + + | 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
--- OUTSIDE RECORDS SUMMARY | ~2018-04-16 | XMS | Encounter Summary ---
Demographics + + + | Address | [address] | | | [place] [address] | + + + | Home Phone [...] Team Providers + +------+ + | Care Chicken Raiser Name | Role | Phone | + [...] | | 2018 | Encounter | [facility] [address] | [address] [facility] | irritation | | | | Ave Mailcode: CH12A | [facility] | | | | | [facility] | [place], [place] | | | | | and | [address] | | | | | Floor [place], [place] | [phone] | | | | | [address] | | | | | | [phone] | | | +--------+ + + + [...] | | Oncology | [address] [facility] | | | | | | [place] [address] | | +--------+ + + + + | 04/24/ | Office | Hematology & | Annie Gannon, | | | 2017 | Visit | Oncology | [facility]HOSPITALIST NOCTURNIST PHYSICIAN [address] | | | | | [address] | | | | | | [place], [place] | | | | | | [address] | | | | | | [phone] | | | | | | | | +--------+ + + + + | 04/24/ | Hospital | Adult Acute Care | Savanna Mari, | | | 2017 | Encounter | | [address] | | | | | | [place], [place] | | | | | | [address] | | | | | | [phone] | | | | | | | [...] Scott | | | | | | [place], [place] | | | | | | [address] | | | | | | [phone] | | | | | | | | +--------+ + + + + as of this encounter Visit Diagnoses Not on filein this encounter"
--- OUTSIDE RECORDS SUMMARY | ~2018-04-16 | XMS | Encounter Summary ---
Demographics + + + | Address | [address] | | | [place] [address] | + + + | Home Phone [...] Team Providers + +------+ + | Care Tong Setter Name | Role | Phone | [...] | | 2017 | | Oncology at [place] | | | | | | for Health & Healing | | | | | | [address] | | | | | | Mailcode: CH7M | | | | | | [facility] | | | | | | and Healing, 7th | | | | | | Floor [place], [place] | | | | | | [address] | | | | | | [phone] | | | +--------+ + + + [...] | | Oncology | [address] | | | | | | [place] [address] | | +--------+ + + + + | 04/24/ | Office | Hematology & | Annie Gannon, | | | 2017 | Visit | Oncology | ROME,AUDIO EXPERIENCE EXPERT [address] | | | | | | [address] | | | | | | [place], [place] | | | | | | [address] | | | | | | [phone] | | | | | | | | +--------+ + + + + | 04/24/ | Hospital | Adult Acute Care | Savanna Mari, | | | 2017 | Encounter | | [address] | | | | | | [place], [place] | | | | | | [address] | | | | | | [phone] | | | | | | | [...] Scott | | | | | | [place], [place] | | | | | | [address] | | | | | | [phone] | | | | | | | | +--------+ + + + + as of this encounter Visit Diagnoses Not on filein this encounter"
--- OUTSIDE RECORDS SUMMARY | ~2018-04-16 | XMS | Encounter Summary ---
Demographics + + + | Address | [address] | | | [place] [address] | + + + | Home Phone [...] Team Providers + +------+ + | Care Shrink Pit Supervisor Name | Role | Phone | [...] | 2018 | on | Oncology at [place] | [address] | follow-up ([facility] | | | | for Health & Healing | [place], [place] | and Labs - Cycle #2) | | | | [address] | [address] | | | | | Mailcode: CH7M | [phone] | | | | | [facility] | | | | | | and [facility], | | | | | | Floor [place], [place] | | | | | | [address] | | | | | | [phone] | | | +--------+ + + + [...] Jackman | | | | | | [place] [address] | | +--------+ + + + + | 04/24/ | Office | Hematology & | Annie Gannon, | | | 2017 | Visit | Oncology | WOLFGANG PETER [address] | | | | | | [address] | | | | | | [place], [place] | | | | | | [address] | | | | | | [phone] | | | | | | | | +--------+ + + + + | 04/24/ | Hospital | Adult Acute Care | Savanna Mari, | | | 2017 | Encounter | | [address] | | | | | | [place], [place] | | | | | | [address] | | | | | | [phone] | | | | | | | [...] Scott | | | | | | [place], [place] | | | | | | [address] | | | | | | [phone] | | | | | | | | +--------+ + + + + as of this encounter Visit Diagnoses + + | Diagnosis | + + | Synovial sarcoma (HCC) - Primary | + + | 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
--- OUTSIDE RECORDS SUMMARY | ~2018-04-16 | XMS | Encounter Summary ---
Demographics + + + | Address | [address] | | | [place] [address] | + + + | Home Phone [...] Author + + + | Author | [facility] | + + + | Organization | [facility] | + + + | Address | Unknown | + + + | Phone | Unavailable | + + + Support + + +---------+ + | Name | Relationship | Address | Phone | + + +---------+ + | ROSE BOWENS | ECON | Unknown | | + + +---------+ + Care Team Providers + +------+ + | Care Field Captain Name | Role | Phone | [...] Anderson | | | | | | [place], [place] | | | | | | [address] | | | +--------+ + + + [...] | | Oncology | [address] | | | | | | [place] [address] | | +--------+ + + + + | 04/24/ | Office | Hematology & | Annie Gannon, | | | 2018 | Visit | Oncology | [facility],PLANETARIUM SKY SHOW TECHNICIAN [address] | | | | | [address] | | | | | | [place], [place] | | | | | | [address] | | | | | | [phone] | | | | | | | | +--------+ + + + + | 04/24/ | Hospital | Adult Acute Care | Savanna Mari, | | | 2017 | Encounter | | [address] | | | | | | [facility] [place] | | | | | | [address] | | | | | | [phone] | | | | | | | [...] | | | | | | [facility] [place] | | | | | | [address] | | | | | | [phone] | | | | | | | | +--------+ + + + + as of this encounter Visit Diagnoses Not on filein this encounter"
--- OUTSIDE RECORDS SUMMARY | ~2018-04-16 | XMS | Encounter Summary ---
Demographics + + + | Address | [address] | | | [place] [address] | + + + | Home Phone [...] Team Providers + +------+ + | Care Lift Mechanic Name | Role | Phone | [...] Nascimento | | | | | | [place], | | | | | | [place] [address] | | | +--------+--------+ + + + [...] 2017 | | Oncology | [address] [facility] | | | | | | [place] [address] | | +--------+ + + + + | 04/24/ | Office | Hematology & | Annie Gannon, | | | 2017 | Visit | Oncology | ROME,STORE RECEIVER [address] | | | | | [address] | | | | | | [place], [place] | | | | | | [address] | | | | | | [phone] | | | | | | | | +--------+ + + + + | 04/24/ | Hospital | Adult Acute Care | Savanna Mari, | | | 2017 | Encounter | | [address] | | | | | | [place], [place] | | | | | | [address] | | | | | | [phone] | | | | | | | [...] Scott | | | | | | [place], [place] | | | | | | [address] | | | | | | [phone] | | | | | | | | +--------+ + + + + as of this encounter Visit Diagnoses Not on filein this encounter"
--- OUTSIDE RECORDS SUMMARY | ~2018-04-16 | XMS | Encounter Summary ---
Demographics + + + | Address | [address] | | | [place] [address] | + + + | Home Phone [...] Team Providers + +------+ + | Care Engraver Automatic Name | Role | Phone | + [...] | | | | | [facility] | | | | | | [place], [place] | | | | | | [address] | | | +--------+ + + + [...] | | Oncology | [address] | | | | | | [place] [address] | | +--------+ + + + + | 04/24/ | Office | Hematology & | Annie Gannon, | | | 2018 | Visit | Oncology | [facility],MICRO PHOTOGRAPHER [address] | | | | | | [address] | | | | | | [place], [place] | | | | | | [address] | | | | | | [phone] | | | | | | | | +--------+ + + + + | 04/24/ | Hospital | Adult Acute Care | Savanna Mari, | | | 2017 | Encounter | | [address] | | | | | | [facility] [place] | | | | | | [address] | | | | | | [phone] | | | | | | | [...] Scott | | | | | | [facility], [place] | | | | | | [address] | | | | | | [phone] | | | | | | | | +--------+ + + + + as of this encounter Visit Diagnoses Not on filein this encounter"
--- OUTSIDE RECORDS SUMMARY | ~2018-04-16 | XMS | Encounter Summary ---
Demographics + + + | Address | [address] | | | [place] [address] | + + + | Home Phone [...] Providers + +------+ + | Care Ice Bag Assembler Name | Role | Phone | [...] | 2018 | on | Oncology at [place] | | | | | | for Health & Healing | | | | | | [address] | | | | | | Mailcode: CH7M | | | | | | [facility] | | | | | | and , | | | | | | Floor [place], [place] | | | | | | [address] | | | | | | [phone] | | | +--------+ + + + [...] | | | | | | [place] [address] | | +--------+ + + + + | 04/24/ | Office | Hematology & | Annie Gannon, | | | 2017 | Visit | Oncology | [facility]SCORE CALLER [address] | | | | | | [address] | | | | | | [place], [place] | | | | | | [address] | | | | | | [phone] | | | | | | | | +--------+ + + + + | 04/24/ | Hospital | Adult Acute Care | Savanna Mari, | | | 2017 | Encounter | | [address] | | | | | | [place], [place] | | | | | | [address] | | | | | | [phone] | | | | | | | [...] | | | | | | [place], [place] | | | | | | [address] | | | | | | [phone] | | | | | | | | +--------+ + + + + as of this encounter Visit Diagnoses Not on filein this encounter"
--- OUTSIDE RECORDS SUMMARY | ~2018-04-16 | XMS | Encounter Summary ---
Demographics + + + | Address | [address] | | | [place] [address] | + + + | Home Phone [...] Team Providers + +------+ + | Care Eyeglass Maker Name | Role | Phone | [...] | | for Health & Healing | [place], [place] | | | | | [address] | [address] | | | | | Mailcode: CH7M | [phone] | | | | | [facility] | | | | | | and [facility], | | | | | | Floor [facility] [place] | | | | | | [address] | | | | | | [phone] | | | +--------+ + + + [...] Jackman | | | | | | [place] [address] | | +--------+ + + + + | 04/24/ | Office | Hematology & | Annie Gannon, | | | 2017 | Visit | Oncology | ROME,WOLFGANG [address] | | | | | [address] | | | | | | [place], [place] | | | | | | [address] | | | | | | [phone] | | | | | | | | +--------+ + + + + | 04/24/ | Hospital | Adult Acute Care | Savanna Mari, | | | 2017 | Encounter | | [address] | | | | | | [place], [place] | | | | | | [address] | | | | | | [phone] | | | | | | | [...] [place] | | | | | | [address] | | | | | | [phone] | | | | | | | | +--------+ + + + + as of this encounter Visit Diagnoses + + | Diagnosis | + + | Synovial sarcoma (HCC) - Primary | + + | 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
--- OUTSIDE RECORDS SUMMARY | ~2018-04-16 | XMS | Encounter Summary ---
Demographics + + + | Address | [address] | | | [place] [address] | + + + | Home Phone [...] Providers + +------+ + | Care Light Fixture Servicer Name | Role | Phone | [...] 2018 | | [facility] [address] | [address] | swelling; Medication | | | | Ave Mailcode: CH12A | [address] | requested (Pain | | | | [place] [facility] | [place], [place] | Meds ) | | | | and Healing, | [address] | | | | | Floor [place], [place] | [phone] | | | | | [address] | | | | | | [phone] | | | +--------+ + + + [...] Jackman | | | | | | [place] [address] | | +--------+ + + + + | 04/24/ | Office | Hematology & | Annie Gannon, | | | 2017 | Visit | Oncology | AGASHANAE,DIVINE HEALER [address] | | | | | [address] | | | | | | [place], [place] | | | | | | [address] | | | | | | [phone] | | | | | | | | +--------+ + + + + | 04/24/ | Hospital | Adult Acute Care | Savanna Mari, | | | 2018 | Encounter | | [address] | | | | | | [place], [place] | | | | | | [address] | | | | | | [phone] | | | | | | | [...] Scott | | | | | | [place] | | | | | | [address] | | | | | | [phone] | | | | | | | | +--------+ + + + + as of this encounter Visit Diagnoses Not on filein this encounter"
--- OUTSIDE RECORDS SUMMARY | ~2018-04-16 | XMS | Encounter Summary ---
Demographics + + + | Address | [address] | | | [place] [address] | + + + | Home Phone [...] Team Providers + +------+ + | Care Make Up Worker Name | Role | Phone | [...] | | | | | sarcoma | [address] | | | | | | ([facility]) | Ave | | | | | | Procedures | [place], [place] | | | | | | TRANSTHORACI | [address] | | | | | | C | Phone: | | | | | | ECHOCARDIOGR | [phone] | | | | | | AM WITH | Fax: | | | | | | STRAIN - | [phone] | | | | | | CARDIO [...] | 2018 | on | Oncology at [place] | [address] | | | | | for Health & Healing | [place], [place] | | | | | [address] | [address] | | | | | Mailcode: [facility] | [phone] | | | | | [facility] | | | | | | and Healing, | | | | | | Floor [place], [place] | | | | | | [address] | | | | | | [phone] | | | +--------+ + + + [...] Road | | | | | | [place] [address] | | +--------+ + + + + | 04/24/ | Office | Hematology & | Annie Gannon, | | | 2018 | Visit | Oncology | AGADEVYNP,CAMERA REPAIRMAN [address] | | | | | [address] | | | | | | [facility], [place] | | | | | | [address] | | | | | | [phone] | | | | | | | | +--------+ + + + + | 04/24/ | Hospital | Adult Acute Care | Savanna Mari, | | | 2017 | Encounter | | [address] | | | | | | [place], [place] | | | | | | [address] | | | | | | [phone] | | | | | | | [...] [place] | | | | | | [address] | | | | | | [phone] | | | | | | | [...]
--- OUTSIDE RECORDS SUMMARY | ~2018-04-16 | XMS | Clinical Summary ---
Demographics + + + | Address | [address] | | | [place] [address] | + + + | Home Phone | | + + + | Preferred Language | Unknown | + + + | Marital Status | Single | + + + | Spiritism Affiliation | Unknown | + + + | Race | Unknown | + + + | Ethnic Group | Unknown | + + + Author + + + | Author | [facility] | | | and [place] | + + + | Organization | [facility] | | | and [place] [...] Team Providers + +------+ + | Care Special Warfare Combatant Crewman Name | Role | Phone | + [...] +--------+ +--------+-------+---------+ | BCBS | BCBS | [id number] | PPO | | | | | [place] | | | | | | | L FEP | | | | | + +--------+ +--------+-------+---------+ | [facility] | IHS | [id number] | Indemn | | | | SERVICE [...] | Self | [birth year] Home: | [address] | | | al/Lopez | | 1984 | [phone] | [place] [address] | | | emerita | | | [phone] | | + +--------+ +--------+ + +
--- OUTSIDE RECORDS SUMMARY | ~2018-04-16 | XMS | Encounter Summary ---
Demographics + + + | Address | [address] | | | [place] [address] | + + + | Home Phone [...] Team Providers + +------+ + | Care 21 Dealer Name | Role | Phone | + [...] | | | 2017 | Event | [facility] | Kemar Martin MD | | | | | Admitting Desk | [address] [facility] | | | | | Located on the | [facility], | | | | | floor [address] [facility] | [place] [address] | | | | | [facility] | [phone] | | | | | [place], [place] | | | | | | [address] | | | +--------+ + + + [...] Center | | | | | | [place] [address] | | +--------+ + + + + | 04/24/ | Office | Hematology & | Annie Gannon, | | | 2018 | Visit | Oncology | [facility] [address] | | | | | | [address] | | | | | | [place], [place] | | | | | | [address] | | | | | | [phone] | | | | | | | | +--------+ + + + + | 04/24/ | Hospital | Adult Acute Care | Savanna Mari, | | | 2017 | Encounter | | [address] | | | | | | [place], [place] | | | | | | [address] | | | | | | [phone] | | | | | | | [...] | | | | | | [facility] [place], [place] | | | | | | [address] | | | | | | [phone] | | | | | | | [...] | | | 03/27/18 at 0933, Until Bettei | | | | | | | [...]
--- OUTSIDE RECORDS SUMMARY | ~2018-04-16 | XMS | Encounter Summary ---
Demographics + + + | Address | [address] | | | [place] [address] | + + + | Home Phone [...] Team Providers + +------+ + | Care Operations Staff Specialist Security Name | Role | Phone | + [...] DOVE | | | | | | [place] [address] | | | | | | [phone] | | | +--------+ + + + [...] | | Oncology | [address] [facility] | | | | | | [place] [address] | | +--------+ + + + + | 04/24/ | Office | Hematology & | Annie Gannon, | | | 2017 | Visit | Oncology | [place],AEROSPACE PROJECT MANAGER [address] | | | | | | [address] | | | | | | [place], [place] | | | | | | [address] | | | | | | [phone] | | | | | | | | +--------+ + + + + | 04/24/ | Hospital | Adult Acute Care | Savanna Mari, | | | 2017 | Encounter | | [address] | | | | | | [place], [place] | | | | | | [address] | | | | | | [phone] | | | | | | | [...] [place] | | | | | | [address] | | | | | | [phone] | | | | | | | | +--------+ + + + + as of this encounter Visit Diagnoses Not on filein this encounter"
--- OUTSIDE RECORDS SUMMARY | ~2018-04-16 | XMS | Encounter Summary ---
Demographics + + + | Address | [address] | | | [place] [address] | + + + | Home Phone [...] Team Providers + +------+ + | Care Dimension Specification Inspector Name | Role | Phone | [...] | Encounter | Oncology at [facility] | [address] | | | | | [address] | [place] [address] | | | | | Mailcode: [facility] | | | | | | [facility] | | | | | | and [facility], | | | | | | [place], [place] | | | | | | [address] | | | | | | [phone] | | | +--------+ + + + [...] | | Oncology | [address] [facility] | | | | | | [place] [address] | | +--------+ + + + + | 04/24/ | Office | Hematology & | Annie Gannon, | | | 2017 | Visit | Oncology | [facility] [address] | | | | | | [address] | | | | | | [place], [place] | | | | | | [address] | | | | | | [phone] | | | | | | | | +--------+ + + + + | 04/24/ | Hospital | Adult Acute Care | Savanna Mari, | | | 2018 | Encounter | | [address] | | | | | | [place], [place] | | | | | | [address] | | | | | | [phone] | | | | | | | [...] [address] | | | | | | [place], [place] | | | | | | [address] | | | | | | [phone] | | | | | | | [...] + + | Blood | [facility], POINT OF CARE TESTS [address] [place], [place] | | | [address] | + + + CBC+DIFF,POC (02/19/2018 2:23 [...] | + + + | Blood | [facility] POINT OF CARE TESTS [address] [facility], [place] | | | [address] | + + + MAGNESIUM, PLASMA (02/19/2018 1:44 PM) + + + | Specimen | Performing Laboratory | + + + | Blood | | + + + + + | Narrative | + + | The following orders were created for panel order MAGNESIUM, PLASMA. | | Procedure | | Abnormality Status | | --------- | | ------ MAGNESIUM, | | PLASMA[[id number]] Normal Final | | result Please view [...] | + + + | Blood | [facility], CORE [address] [facility] | | | [place] [address] | + + + + + | [...] | + + + | Urine | [facility], [facility] [address] | | | [place] [address] | + + + PHOSPHORUS, PLASMA (02/19/2018 1:44 PM) + +-------+ + | Component | Value | Ref Range | + +-------+ + | PHOSPHORUS, PLASMA | 3.7 | 2.4 - 4.7 mg/dL | | (LAB) | | | + +-------+ + + + + | Specimen | Performing Laboratory | + + + | Blood | [facility], CORE [address] | | | [place] [address] | + + + in this encounter [...]
[~2018-04-16 21:28] MED LIST changes: +CLEOCIN HCL300 MG PO
[2018-04-16] MEDS ORDERED: CEFAZOLIN2 GM/20 M1 IV (21:51)
[2018-04-16] MEDS ORDERED: FLAGYL500 MG PO (21:52)
[2018-04-17] MEDS ORDERED: KLOR-CON M2020 MEQ PO (00:25)
== END 2018-04-17 00:35 | disposition home or self-care (01) ==
LOC: ED 21:28
DX: E87.6 Hypokalemia (principal); E66.01 Morbid (severe) obesity due to excess calories; F41.9 Anxiety disorder, unspecified; F32.9 Major depressive disorder, single episode, unspecified; Z88.8 Allergy status to other drugs, medicaments and biological substances; Z88.5 Allergy status to narcotic agent; Z79.899 Other long term (current) drug therapy; Z79.891 Long term (current) use of opiate analgesic
CPT/HCPCS: 84132; 99284

== ENCOUNTER 2018-05-05 14:08 | Emergency (ER) | payer BC, OTHER ==
[~2018-05-05] VITALS: Ht 172.7 cm; Wt 137.9 kg
[~2018-05-05 14:08] MED LIST changes: +CEFAZOLIN2 GM/20 M1 IV; +FLAGYL500 MG PO; +KLOR-CON M2020 MEQ PO
== END 2018-05-05 18:55 | disposition short-term general hospital (02) ==
LOC: ED 14:08
DX: D70.9 Neutropenia, unspecified (principal); E66.01 Morbid (severe) obesity due to excess calories; Z88.5 Allergy status to narcotic agent; Z88.8 Allergy status to other drugs, medicaments and biological substances; Z79.899 Other long term (current) drug therapy
CPT/HCPCS: 80048; 81001; 83605; 85025; 96361; 96374; 96375; 96376; 99284; J1170; J1450; J1885; J3370; J7030

== ENCOUNTER 2018-12-19 06:58 | Emergency (ER) | payer BC, OTHER ==
[~2018-12-19] VITALS: Ht 172.7 cm; Wt 137.9 kg
--- OUTSIDE RECORDS SUMMARY | ~2018-12-19 | XMS | Encounter Summary ---
Demographics + + + | Address | [address] | | | [place] [address] | + + + | Home Phone | | + + + | Preferred Language | Unknown | + + + | Marital Status | Single | + + + | Yazidi Affiliation | CAT | + + + | Race | Unknown | + + + | Ethnic Group | Not or | + + + Author + + + | Author | [facility] | + + + | Organization | [facility] | + + + | Address | Unknown | + + + | Phone | Unavailable | + + + Support + + +---------+ + | Name | Relationship | Address | Phone | + + +---------+ + | ROSE CAGE | ECON | Unknown | | + + +---------+ + Care Team Providers + +------+ + | Care Jewel Supervisor Name | Role | Phone | + +------+ + | Santo Gooden MD | PCP | | + +------+ + Reason for Visit +--------+ + | Reason | Comments | +--------+ + | Other | Letter | +--------+ + Encounter Details +--------+ + + + + | Date | Type | Department | Care Team | Description | +--------+ + + + + | 10/21/ | Telephone | Orthopaedics at | Lynda Basurto, | Other (Letter) | | 2019 | | [facility] [address] | [address] [facility] | | | | | [place] Mailcode: CH12A | [facility] | | | | | [facility] | [place], [place] | | | | | and [facility], | [address] | | | | | Floor [place], [place] | [phone] | | | | | [address] | | | | | | [phone] | | | +--------+ + + + [...] [address] | | | | | | [facility], [place] | | | | | | [address] | | | | | | [phone] | | | | | | | | +--------+ + + + + | 03/25/ | Office | Orthopedics | Lynda Basurto, | | | 2018 | Visit | | [address] | | | | | | [address] | | | | | | [place], [place] | | | | | | [address] | | | | | | [phone] | | | | | | | | +--------+ + + + + | 03/25/ | Office | Hematology & | Sandra Patel MD | | | 2018 | Visit | Oncology | [address] | | | | | | [facility], [place] | | | | | | [address] | | | | | | [phone] | | | | | | | | +--------+ + + + + as of this encounter Visit Diagnoses Not on filein this encounter"
--- OUTSIDE RECORDS SUMMARY | ~2018-12-19 | XMS | Encounter Summary ---
Demographics + + + | Address | [address] | | | [place] [address] | + + + | Home Phone | | + + + | Preferred Language | Unknown | + + + | Marital Status | Single | + + + | Jewish Affiliation | CAT | + + + | Race | Unknown | + + + | Ethnic Group | Not or | + + + Author + + + | Author | [facility] | + + + | Organization | [facility] | + + + | Address | Unknown | + + + | Phone | Unavailable | + + + Support + + +---------+ + | Name | Relationship | Address | Phone | + + +---------+ + | ROSE CAGE | ECON | Unknown | | + + +---------+ + Care Team Providers + +------+ + | Care Enforcement Officer Name | Role | Phone | + [...] + + | New Request | | Radiology | Diagnoses | Jorge | | | | | | Synovial | Sandra Thorne MD | | | | | | sarcoma | [address] | | | | | | ([facility]) | Ave | | | | | | Procedures | [place], [place] | | | | | | [place] | [address] | | | | | | CONTRAST | Phone: | | | | | | | [phone] | | | | | | | Fax: | | | | | | | [phone] | | + +--------+ + + + + Reason for Visit Consultation (Urgent) + +--------+ + + + + | Status | Reason | Specialty | Diagnoses / | Referred By | Referred To | | | | | Procedures | Contact | Contact | + +--------+ + + + + | Authorized | | Hematology & | Diagnoses | Sb, | Sandra Patel | | | | Oncology | Malignant | Lynda, | EMD [address] | | | | | neoplasm of | MD [address] | | | | | soft tissue | [address] | [facility] [place] | | | | | of left | [address] | [address] | | | | | lower | [place], [place] | Phone: | | | | | extremity | [address] | [phone] | | | | | (HCC) | Phone: | Fax: | | | | | Procedures | [phone] | [phone] | | | | | CONSULT TO | Fax: | | | | | | HEMATOLOGY / | [phone] | | | | | | ONCOLOGY | | | + +--------+ + + + + Encounter Details +--------+---------+ + + + | Date | Type | Department | Care Team | Description | +--------+---------+ + + + | 12/03/ | Office | Hematology/Medical | Sandra Patel MD | Synovial sarcoma | | 2019 | Visit | Oncology at [place] | [address] | (HCC) (Primary Dx) | | | | for Health & Healing | [place], [place] | | | | | [address] | [address] | | | | | Mailcode: CH7N | [phone] | | | | | [facility] | | | | | | and Healing, [address]th | | | | | | [place], [place] | | | | | | [address] | | | | | | [phone] | | | +--------+---------+ + + + [...] + + + | Blood Pressure | 132/80 | 12/03/2018 3:38 PM PDT | + + + + | Pulse | 78 | 12/03/2018 3:38 PM PDT | + + + + | Temperature | 36.5 C (97.7 F) | 12/03/2018 3:38 PM PDT | + + + + | Respiratory Rate | 16 | 12/03/2018 3:38 PM PDT | + + + + | Oxygen Saturation | 98% | 12/03/2018 3:38 PM PDT | + + + + | Inhaled Oxygen | - | - | | Concentration | | | + + + + | Weight | 155.2 kg (342 lb 1.6 | 12/03/2018 3:38 PM PDT | | | oz) | | + + + + | Height | - | - | + + + + | Body Mass Index | 52.02 | 12/03/2018 3:38 PM PDT | + + + + [...] encounter Progress Notes Sandra Patel MD - 12/03/2018 3:40 PM PDTFormatting of this note may be different from remedios thorne original. 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 Depression has gotten worse, but she is established wi a psychiatrist who is making some med adjustments. Has new prosthesis History: Prior records reviewed. Tati Cage is a 33 y.o. old woman with a high ris [...] upfront amputation on 02/06/[address] Basurto. Started adjuvant chem o 02/19/18. C1 c/b febrile neutropenia. C2 c/b wound infection requiring debridement on 03/24 and 03/27, delaying C3. C3 c/b febrile neutropenia with severe dysphagia. No further chemothe rapy. Cumulative doses: epirubicin 365 mg/m2, ifosfamide 29.7 g/m2. ROS: Return Visit Health History Update form reviewed & scanned. No updates to past medical, surgical, social and family history. MEDICATIONS: ceFAZolin injection recon soln, Inject 2,000 mg into the vein (IV) every eight hours. To be admixed per infusion pharmacy standard policy and/or procedure. (Patient not taking: Report ed on 08/06/2018) citalopram 40 mg oral tablet, Take 40 mg by mouth once daily at bedtime. dexamethasone 4 mg oral tablet, Take 2 tablets by mouth every twenty-four hours. Indication s: Prevention of Chemotherapy-Induced Nausea and Vomiting (Patient not taking: Reported on 10/07/2017) lidocaine-prilocaine (EMLA) 2.5-2.5 % topical cream, Apply to affected area as needed. Appl y a thick layer to intact skin and cover with an occlusive dressing. loratadine (CLARITIN) 10 mg oral tablet, Take 10 mg by mouth once daily. LORazepam 0.5 mg oral tablet, Take 1 tablet by mouth every six hours as needed for anxiety. (Patient not taking: Reported on 08/06/2018) LYRICA 225 mg oral capsule, Take 1 capsule by mouth two times daily. At 0900 and 1700. Yoli cations: [facility] commode for nighttime use following foot amputat ion. (Patient not taking: Reported on 08/06/2018) nystatin 100,000 unit/gram topical powder, Apply to affected area two times daily. Apply to candidal lesions until lesions have healed. Indications: skin infection, redness in pannus, skin folds (Patient not taking: Reported on 08/06/2018) OLANZapine 10 mg oral tablet, Take 1 tablet by mouth once daily at bedtime. Indications: Pr evention of Chemotherapy-Induced Nausea and Vomiting (Patient taking differently: Take 5 mg by mouth once daily at bedtime. Indications: Prevention of Chemotherapy-Induced Nausea and Vomiting) omeprazole 20 mg oral capsule,delayed release(DR/EC), Take 1 capsule by mouth once daily in the morning. Indications: Maintenance of Healing Erosive Esophagitis (Patient not taking: R eported on 08/06/2018) ondansetron 8 mg oral tablet, Take 1 tablet by mouth every twelve hours as needed (2nd line for nausea/vomiting). (Patient not taking: Reported on 08/06/2018) oxyCODONE (immediate release) 5 mg oral tablet, Take 1 to 3 tablets by mouth every three h ours as needed for moderate pain. Wean off soon and do not combine with other sedating meds like Clonazapam (Patient taking differently: Take 5-15 mg by mouth every four hours as neede d for moderate pain. ) prochlorperazine 5 mg oral tablet, 04/27-05/01: Take 2 tablet by mouth every 6 hours. After may take 2 tablet by mouth every 6 hours as needed. Max dose: 40 mg/day Indications: Pr evention of Chemotherapy-Induced Nausea and Vomiting (Patient not taking: Reported on 018) senna-docusate 8.6-50 mg oral tablet, Take 2 tablets by mouth two times daily. Prevention o f opioid induced constipation (Patient not taking: Reported on 08/06/2018) Allergies Allergen Reactions Chlorhexidine Rash Demerol [Meperidine Hcl] Pruritus Morphine Pruritus PHYSICAL EXAM: BP 132/80 (BP Location: Left upper arm, Patient Position: Sitting) | Pulse 78 | Temp 36.5 C (97.7 F) (Oral) | Resp 16 | Wt 155.2 kg (342 lb 1.6 oz) | SpO2 98% | BMI 52.02 kg /m | BSA 2.73 m Constitutional - Pleasant overweight woman in NAD. Eyes - Anicteric sclera, no drainage. ENT - Oropharynx moist. Respiratory - Normal WOB. Skin - No bruising or rashes. Port site well healed. Musculoskeletal - S/p left BKA. Stump with well healed incision and very cool new prosthesi s (she designed it). Neurologic - Awake, alert. public health doctor grossly intact. Affect/Psych - Appropriate. ECOG - 0 LABS: None today IMAGIN12/03/2018 CT chest - No evidence of metastasis. ASSESSMENT: Tati Cage is a 33 y.o. 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 Rapid local progression with pain and infection necessitating upfront amputation on 02/06/[address] Basurto. Completed 3 cycles of adjuvant epirubicin/ifosfamide, c/b recurrent febrile neutropenia and wound infection requiring surgical I&D. No evidence of recurrent disease on imaging. PLAN: Synovial sarcoma. - Recommended surveillance: RTC in [address] chest prior and coordinated visits with Jorge Sanchezamp; Sb - q4mo follow up through February 2020, then q6mo Monitoring for long-term sequelae - Annual CBC/CMP, last done Aug 2018 - Minimal anthracycline so no routine echo monitoring Depression. Established with psychiatrist, on celexa and welbutrin. Appreciate FISHER EEL jerson abreu I spent 18 minutes with the patient. Greater than 50% of the time was spent counseling the patient regarding symptoms, LTFU and disease monitoring plan. Sandra Patel MD [facility] [employer] Medical Oncology & Pediatric Hematology/Oncology [facility] Multidisciplinary Sarcoma Programin this encounter Plan of Treatment +--------+ + + + + | Date | Type | Specialty | Care Team | Description | +--------+ + + + + | 03/25/ | Appointment | Radiology | Sandra Patel MD | | | 2018 | | | [address] | | | | | | [place], [place] | | | | | | [address] | | | | | | [phone] | | | | | | | | +--------+ + + + + | 03/25/ | Office | Orthopedics | Lynda Basurto, | | | 2018 | Visit | | [address] | | | | | | [address] | | | | | | [place], [place] | | | | | | [address] | | | | | | [phone] | | | | | | | | +--------+ + + + + | 03/25/ | Office | Hematology & | Sandra Patel MD | | | 2018 | Visit | Oncology | [address] | | | | | | [place], [place] | | | | | | [address] | | | | | | [phone] | | | | | | | | +--------+ + + + + + +--------+ + + | Name | Priori | Associated Diagnoses | Order Schedule | | | ty | | | + +--------+ + + | CT CHEST WO CONTRAST | Routin | Synovial sarcoma | Expected: 03/04/2019 | | | e | (HCC) | (Approximate), | | | | | Expires: 01/03/2020 | + +--------+ + + as of this encounter Visit Diagnoses + + | Diagnosis | + + | Synovial sarcoma (HCC) - Primary | + + | 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
--- OUTSIDE RECORDS SUMMARY | ~2018-12-19 | XMS | Encounter Summary ---
Demographics + + + | Address | [address] | | | [place] [address] | + + + | Home Phone [...] Author + + + | Author | [facility] | + + + | Organization | [facility] | + + + | Address | Unknown | + + + | Phone | Unavailable | + + + Support + + +---------+ + | Name | Relationship | Address | Phone | + + +---------+ + | ROSE CAGE | ECON | Unknown | | + + +---------+ + Care Team Providers + +------+ + | Care Supervisor Safety Deposit Name | Role | Phone | + +------+ + | Santo Gooden MD | PCP | | + +------+ + Reason for Referral Diagnostic Testing (Routine) +--------+--------+ + + + + | Status | Reason | Specialty | Diagnoses / | Referred By | Referred To | | | | | Procedures | Contact | Contact | +--------+--------+ + + + + | Closed | | Radiology | Diagnoses | Jorge, | Rad Ct Scan | | | | | Synovial | Sandra Schmitt MD | [facility] 3303 | | | | | sarcoma | [address] | [address] | | | | | ([facility]) | Ave | Mailcode: | | | | | Procedures | [place], [place] | [facility] Center | | | | | [place] | [address] | for Health | | | | | CONTRAST [place] | Phone: | and Healing, | | | | | [place] | [phone] | 3rd Floor | | | | | SCAN,THORAX, | Fax: | [place], [place] | | | | | W/O CONTRAST | [phone] | [address] | | | | | | | Phone: | | | | | | | [phone] | | | | | | | Fax: | | | | | | | [phone] | +--------+--------+ + + + + Diagnostic Testing (Routine) +--------+--------+ + + + + | Status | Reason | Specialty | Diagnoses / | Referred By | Referred To | | | | | Procedures | Contact | Contact | +--------+--------+ + + + + | Closed | | Radiology | Diagnoses | Jorge, | Rad Ct Scan | | | | | Synovial | Sandra Schmitt MD | h [address]303 | | | | | sarcoma | [address] | [address] | | | | | ([facility]) | Ave | Mailcode: | | | | | Procedures | [place], [place] | [facility] | | | | | [place] | [address] | for Health | | | | | [place] | Phone: | and Healing, | | | | | [place] | [phone] | 3rd Floor | | | | | SCAN,[place]ORAX, | Fax: | [place], [place] | | | | | W/O CONTRAST | [phone] | [address] | | | | | | | Phone: | | | | | | | [phone] | | | | | | | Fax: | | | | | | | [phone] | +--------+--------+ + + + + Reason for Visit Diagnostic Testing (Routine) +--------+--------+ + + + + | Status | Reason | Specialty | Diagnoses / | Referred By | Referred To | | | | | Procedures | Contact | Contact | +--------+--------+ + + + + | Closed | | Radiology | Diagnoses | Jorge, | Rad Ct Scan | | | | | Synovial | Sandra Schmitt MD | h [address] | | | | | sarcoma | [address] | [address] | | | | | ([facility]) | Ave | Mailcode: | | | | | Procedures | [place], [place] | [facility] Center | | | | | [place] | [address] | for Health | | | | | [place] | Phone: | and Healing, | | | | | [place] | [phone] | 3rd Floor | | | | | SCAN,THORAX, | Fax: | [place], [place] | | | | | W/O CONTRAST | [phone] | [address] | | | | | | | Phone: | | | | | | | [phone] | | | | | | | Fax: | | | | | | | [phone] | +--------+--------+ + + + + Encounter Details +--------+ + + + + | Date | Type | Department | Care Team | Description | +--------+ + + + + | 12/03/ | Hospital | Radiology/Imaging | Sandra Patel MD | | | 2019 | Encounter | Lab at [facility] [address]303 | [address] | | | | | [address] | [place], [place] | | | | | Mailcode: [facility] | [address] | | | | | [facility] | [phone] | | | | | and [address] | | | | | | Floor [place], [place] | | | | | | [address] | | | | | | [phone] | | | +--------+ + + + [...] Medications at Time of Discharge + + +---------+---------+ + + | Medication | Sig. | Disp. | Refills | Start | End Date | | | | | | Date | | + + +---------+---------+ + + | buPROPion 75 mg | | | | 11/28/19 | | | oral tablet | | | | 19 | | + + +---------+---------+ + + | citalopram 40 mg | Take 40 mg by mouth | | | | | | oral tablet | once daily at | | | | | | | bedtime. | | | | | + + +---------+---------+ + + | clonazePAM 1 mg | | | | 11/07/19 | | | oral tablet | | | | 19 | | + + +---------+---------+ + + | loratadine | Take 10 mg by mouth | | | | | | (CLARITIN) 10 mg | once daily. | | | | | | oral tablet | | | | | | + + +---------+---------+ + + | LYRICA 225 mg oral [...] | | | | | + + +---------+---------+ + + | naproxen 500 mg | | | | 11/11/19 | | | oral tablet | | | | 19 | | + + +---------+---------+ + + as of this encounter Plan of Treatment +--------+ + + + + | Date | Type | Specialty | Care Team | Description | +--------+ + + + + | 03/25/ | Appointment | Radiology | Sandra Patel MD | | | 2018 | | | [address] | | | | | | [place], [place] | | | | | | [address] | | | | | | [phone] | | | | | | | | +--------+ + + + + | 03/25/ | Office | Orthopedics | Lynda Basurto, | | | 2019 | Visit | | [address] | | | | | | [address] | | | | | | [place], [place] | | | | | | [address] | | | | | | [phone] | | | | | | | | +--------+ + + + + | 03/25/ | Office | Hematology & | Sandra Patel MD | | | 2019 | Visit | Oncology | [address] | | | | | | [place], [place] | | | | | | [address] | | | | | | [phone] | | | | | | | | +--------+ + + + + as of this encounter Procedures + +--------+ [...] section. | + +--------+ + + + in this encounter Results CT CHEST WO CONTRAST (12/03/2018 2:02 PM) + + + | Narrative | Performed [...] | | | + +---------+ + + in this encounter Visit Diagnoses + + | Diagnosis | + + | Synovial sarcoma (HCC) | + + | 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
--- OUTSIDE RECORDS SUMMARY | ~2018-12-19 | XMS | Encounter Summary ---
Demographics + + + | Address | [address] | | | [place] [address] | + + + | Home Phone [...] Team Providers + +------+ + | Care Financial Specialist Name | Role | Phone | [...] [address] | | | | | | ([facility]) | Ave | | | | | | Procedures | [place], [place] | | | | | | [place] | [address] | | | | | | CONTRAST | Phone: | | | | | | | [phone] | | | | | | | Fax: | | | | | | | [phone] | | + +--------+ + + + [...] | soft tissue | Federico Nascimento | [facility] [place] | | | | | of left | [address] | [address] | | | | | lower | [place], [place] | Phone: | | | | | extremity | [address] | [phone] | | | | | (HCC) | Phone: | Fax: | | | | | Procedures | [phone] | [phone] | | | | | CONSULT TO | Fax: | | | | | | HEMATOLOGY / | [phone] | | | | | | ONCOLOGY | | | + +--------+ + + + + Encounter Details +--------+---------+ + + + | Date | Type | Department | Care Team | Description | +--------+---------+ + + + | 12/03/ | Office | Hematology/Medical | Sandra Patel MD | Synovial sarcoma | | 2019 | Visit | Oncology at [place] | [address] | (HCC) (Primary Dx) | | | | for Health & Healing | [place], [place] | | | | | [address] | [address] | | | | | Mailcode: CH7N | [phone] | | | | | [facility] | | | | | | and Healing, 7th | | | | | | [place], [place] | | | | | | [address] | | | | | | [phone] | | | +--------+---------+ + + + [...] Name: Tati Cage : 1985 Home Town: [place], [place] PCP = Garima GOSS Referring Physician: [...] 0900 and 1700. Yoli cations: phantom pain [facility] commode for nighttime use following foot [...] (she designed it). Neurologic - Awake, alert. director of counseling grossly intact. Affect/Psych - Appropriate. ECOG - [...] with psychiatrist, on celexa and welbutrin. Appreciate COMMUNITY DEVELOPMENT SPECIALIST jerson abreu I spent 18 minutes with the patient. Greater than 50% of the time was spent counseling the patient regarding symptoms, LTFU and disease monitoring plan. Sandra Patel MD Regulatory Compliance Manager Medical Oncology & Pediatric Hematology/Oncology [facility] [place] Multidisciplinary Sarcoma Programin this encounter Plan of Treatment +--------+ + + + + | Date | Type | Specialty | Care Team | Description | +--------+ + + + + | 03/25/ | Appointment | Radiology | Sandra Patel MD | | | 2018 | | | [address] | | | | | | [place], [place] | | | | | | [address] | | | | | | [phone] | | | | | | | | +--------+ + + + + | 03/25/ | Office | Orthopedics | Lynda Basurto, | | | 2018 | Visit | | [address] | | | | | | [address] | | | | | | [place], [place] | | | | | | [address] | | | | | | [phone] | | | | | | | | +--------+ + + + + | 03/25/ | Office | Hematology & | Sandra Patel MD | | | 2018 | Visit | Oncology | [address] | | | | | | [place], [place] | | | | | | [address] | | | | | | [phone] | | | | | | | [...]
--- OUTSIDE RECORDS SUMMARY | ~2018-12-19 | XMS | Encounter Summary ---
Demographics + + + | Address | [address] | | | [place] [address] | + + + | Home Phone [...] Author + + + | Author | [facility] | + + + | Organization | [facility] | + + + | Address | Unknown | + + + | Phone | Unavailable | + + + Support + + +---------+ + | Name | Relationship | Address | Phone | + + +---------+ + | ROSE CAGE | ECON | Unknown | | + + +---------+ + Care Team Providers + +------+ + | Care Personal Computer Network Engineer Name | Role | Phone | [...] Other (Letter) | | 2019 | | [facility] [address] | [address] [facility] | | | | | [place] Mailcode: CH12A | [facility] | | | | | [facility] | [place], [place] | | | | | and [facility], | [address] | | | | | Floor [place], [place] | [phone] | | | | | [address] | | | | | | [phone] | | | +--------+ + + + [...] [address] | | | | | | [facility], [place] | | | | | | [address] | | | | | | [phone] | | | | | | | | +--------+ + + + + | 03/25/ | Office | Orthopedics | Lynda Basurto, | | | 2018 | Visit | | [address] | | | | | | [address] | | | | | | [place], [place] | | | | | | [address] | | | | | | [phone] | | | | | | | | +--------+ + + + + | 03/25/ | Office | Hematology & | Sandra Patel MD | | | 2018 | Visit | Oncology | [address] | | | | | | [facility], [place] | | | | | | [address] | | | | | | [phone] | | | | | | | | +--------+ + + + + as of this encounter Visit Diagnoses Not on filein this encounter"
--- OUTSIDE RECORDS SUMMARY | ~2018-12-19 | XMS | Encounter Summary ---
Demographics + + + | Address | [address] | | | [place] [address] | + + + | Home Phone [...] Team Providers + +------+ + | Care Cone Treater Name | Role | Phone | + [...] | 2019 | on | Oncology at [place] | | | | | | for Health & Healing | | | | | | [address] | | | | | | Mailcode: [place] | | | | | | [facility] and | | | | | | [facility] 2 | | | | | | [place], [place] | | | | | | [address] | | | | | | [phone] | | | +--------+ + + + [...] [place] | | | | | | [address] | | | | | | [phone] | | | | | | | | +--------+ + + + + | 03/25/ | Office | Orthopedics | Lynda Basurto, | | | 2018 | Visit | | [address] | | | | | | [address] | | | | | | [place], [place] | | | | | | [address] | | | | | | [phone] | | | | | | | | +--------+ + + + + | 03/25/ | Office | Hematology & | Sandra Patel MD | | | 2018 | Visit | Oncology | [address] | | | | | | [place], [place] | | | | | | [address] | | | | | | [phone] | | | | | | | | +--------+ + + + + as of this encounter Visit Diagnoses Not on filein this encounter"
--- OUTSIDE RECORDS SUMMARY | ~2018-12-19 | XMS | Encounter Summary ---
Demographics + + + | Address | [address] | | | [place] [address] | + + + | Home Phone [...] Team Providers + +------+ + | Care Technical Supervisor Name | Role | Phone | [...] Rehabilitation at | [address] | ([facility]) (Primary Dx) | | | | [facility] [address] | [address] | | | | | Ave Mailcode: | [place], [place] | | | | | [place] for [facility] | [address] | | | | | and Healing, | [phone] | | | | | Building [address] | | | | | | [place], [place] | | | | | | [address] | | | | | | [phone] | | | +--------+---------+ + + + [...] 3-[address] chest for surveillance in this encounter Plan of Treatment +--------+ + + + + | Date | Type | Specialty | Care Team | Description | +--------+ + + + + | 03/25/ | Appointment | Radiology | Sandra Patel MD | | | 2018 | | | [address] | | | | | | [place], [place] | | | | | | [address] | | | | | | [phone] | | | | | | | | +--------+ + + + + | 03/25/ | Office | Orthopedics | Lynda Basurto, | | | 2018 | Visit | | [address] | | | | | | [address] | | | | | | [place], [place] | | | | | | [address] | | | | | | [phone] | | | | | | | | +--------+ + + + + | 03/25/ | Office | Hematology & | Sandra Patel MD | | | 2019 | Visit | Oncology | [address] | | | | | | [place], [place] | | | | | | [address] | | | | | | [phone] | | | | | | | | +--------+ + + + + as of this encounter Visit Diagnoses + + | Diagnosis | + + | Synovial sarcoma (HCC) - Primary | + + | 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
--- OUTSIDE RECORDS SUMMARY | ~2018-12-19 | XMS | Clinical Summary ---
Demographics + + + | Address | [address] | | | [place] [address] | + + + | Home Phone | | + + + | Preferred Language | Unknown | + + + | Marital Status | Single | + + + | Amish Affiliation | Unknown | + + + | Race | Unknown | + + + | Ethnic Group | Unknown | + + + Author + + + | Author | [facility] | | | and [place] | + + + | Organization | [facility] [...] Providers + +------+ + | Care Manufacturing Engineering Technologist Name | Role | Phone | [...] +--------+ +--------+-------+---------+--------+ | BCBS | BCBS | [id number] | 09/02/19 | | | PPO | | | [place] | | 16-Pre | | | | | | L FEP | | sent | | | | + +--------+ +--------+-------+---------+--------+ | HEALTH | IHS | [id number] | | | | Indemn | | [...] Person | Self | [birth year] | [address] | | | al/Fam | | 1985 | [phone] | [place] [address] | | | emerita | | | 4 (Home) | | + +--------+ +--------+ + + Advance Directives Patient has advance care planning documents on file. For more information, please contact:[facility] [place] [address]
--- OUTSIDE RECORDS SUMMARY | ~2018-12-19 | XMS | Encounter Summary ---
Demographics + + + | Address | [address] | | | [place] [address] | + + + | Home Phone [...] Team Providers + +------+ + | Care Taxation Consultant Name | Role | Phone | + +------+ + | Santo Gooden MD | PCP | | + +------+ + Reason for Visit +--------+ + | Reason | Comments | +--------+ + | Other | [facility] | +--------+ + Encounter Details +--------+ + + + + | Date | Type | Department | Care Team | Description | +--------+ + + + + | 11/07/ | Telephone | Hematology/Medical | Sandra Patel MD | Other ([facility] | | 2019 | | Oncology at [place] | [address] | Appeal) | | | | for Health & Healing | [place], [place] | | | | | [address] | [address] | | | | | Mailcode: [place] | [phone] | | | | | for Health and | | | | | | Healing, [facility] 2 | | | | | | [place], [place] | | | | | | [address] | | | | | | [phone] | | | +--------+ + + + [...] [place] | | | | | | [address] | | | | | | [phone] | | | | | | | | +--------+ + + + + | 03/25/ | Office | Orthopedics | Lydna Basurto, | | | 2018 | Visit | | [address] | | | | | | [address] | | | | | | [place], [place] | | | | | | [address] | | | | | | [phone] | | | | | | | | +--------+ + + + + | 03/25/ | Office | Hematology & | Sandra Patel MD | | | 2018 | Visit | Oncology | [address] | | | | | | [place], [place] | | | | | | [address] | | | | | | [phone] | | | | | | | | +--------+ + + + + as of this encounter Visit Diagnoses Not on filein this encounter"
--- OUTSIDE RECORDS SUMMARY | ~2018-12-19 | XMS | Clinical Summary ---
Demographics + + + | Address | [address] | | | [place] [address] | + + + | Home Phone | | + + + | Preferred Language | Unknown | + + + | Marital Status | Single | + + + | Cheondoism Affiliation | Unknown | + + + | Race | Unknown | + + + | Ethnic Group | Unknown | + + + Author + + + | Author | [facility] | | | and [place] | + + + | Organization | [facility] | | | and [place] | [...] Providers + +------+ + | Care Digital Advertising Analyst Name | Role | Phone | [...] +--------+ +--------+-------+---------+--------+ | BCBS | BCBS | [id number] | 09/02/19 | | | PPO | | | [place] | | 16-Pre | | | | | | L FEP | | sent | | | | + +--------+ +--------+-------+---------+--------+ | HEALTH | IHS | [id number] | | | | Indemn | | [...] Person | Self | [birth year] | [address] | | | al/Fam | | 1985 | [phone] | [place] [address] | | | emerita | | | 4 (Home) | | + +--------+ +--------+ + + Advance Directives Patient has advance care planning documents on file. For more information, please contact:[facility] and [facility] [place] [address]
--- OUTSIDE RECORDS SUMMARY | ~2018-12-19 | XMS | Encounter Summary ---
Demographics + + + | Address | [address] | | | [place] [address] | + + + | Home Phone [...] Author + + + | Author | [facility] | + + + | Organization | [facility] | + + + | Address | Unknown | + + + | Phone | Unavailable | + + + Support + + +---------+ + | Name | Relationship | Address | Phone | + + +---------+ + | ROSE CAGE | ECON | Unknown | | + + +---------+ + Care Team Providers + +------+ + | Care Event Planning Manager Name | Role | Phone | [...] | Synovial | Sandra Schmitt MD | [facility] [address]303 | | | | | sarcoma | [address] | [address] | | | | | ([facility]) | Ave | Mailcode: | | | | | Procedures | [place], [place] | [facility] | | | | | [place] | [address] | for Health | | | | | CONTRAST [place] | Phone: | and Healing, | | | | | [place] | [phone] | 3rd Floor | | | | | SCAN,[place]ORAX, | Fax: | [place], [place] | | | | | W/O CONTRAST | [phone] | [address] | | | | | | | Phone: | | | | | | | [phone] | | | | | | | Fax: | | | | | | | [phone] | +--------+--------+ + + + + Diagnostic [...] | ([facility]) | Ave | Mailcode: | | | | | Procedures | [place], [place] | [facility] | | | | | [place] | [address] | for Health | | | | | [place] | Phone: | and Healing, | | | | | CT | [phone] | 3rd Floor | | | | | SCAN,[place], | Fax: | [place], [place] | | | | | W/[place] CONTRAST | [phone] | [address] | | | | | | | Phone: | | | | | | | [phone] | | | | | | | Fax: | | | | | | | [phone] | +--------+--------+ + + + + Reason [...] | ([facility]) | Ave | Mailcode: | | | | | Procedures | [place], [place] | [facility] | | | | | [place] | [address] | for Health | | | | | [place] | Phone: | and Healing, | | | | | [place] | [phone] | 3rd Floor | | | | | SCAN,[place], | Fax: | [place], [place] | | | | | W/O CONTRAST | [phone] | [address] | | | | | | | Phone: | | | | | | | [phone] | | | | | | | Fax: | | | | | | | [phone] | +--------+--------+ + + + + Encounter Details +--------+ + + + + | Date | Type | Department | Care Team | Description | +--------+ + + + + | 12/03/ | Hospital | Radiology/Imaging | Sandra Patel MD | | | 2019 | Encounter | Lab at [facility] [address] | [address] | | | | | [address] | [place], [place] | | | | | Mailcode: [facility] | [address] | | | | | [facility] | [phone] | | | | | and [address] | | | | | | Floor [place], [place] | | | | | | [address] | | | | | | [phone] | | | +--------+ + + + [...] | | | 2018 | | | [address] | | | | | | [place], [place] | | | | | | [address] | | | | | | [phone] | | | | | | | | +--------+ + + + + | 03/25/ | Office | Orthopedics | Lynda Basurto, | | | 2019 | Visit | | [address] | | | | | | [address] | | | | | | [place], [place] | | | | | | [address] | | | | | | [phone] | | | | | | | | +--------+ + + + + | 03/25/ | Office | Hematology & | Sandra Patel MD | | | 2019 | Visit | Oncology | [address] | | | | | | [place], [place] | | | | | | [address] | | | | | | [phone] | | | | | | | [...] Андрей Farah MD | |Dictation initiated: Андрей aFrah MD 12/03/2018 3:15 PM | + + [...]
--- OUTSIDE RECORDS SUMMARY | ~2018-12-19 | XMS | Clinical Summary ---
Demographics + + + | Address | [address] | | | [place] [address] | + + + | Home Phone [...] Providers + +------+ + | Care Chemistry Lecturer Name | Role | Phone | + +------+ + | Santo Gooden MD | PP | | + +------+ + Source Comments LUIS is fully live on both [facility] Ambulatory and [facility] InPatient.[facility] Allergies + + + + + + [...] + + + Current Medications + + +---------+---------+------+------+-------+ | Prescription | Sig. | Disp. | Refills | Star | End | Statu | | | | | | t | Date | s | | | | | | Date | | | + + +---------+---------+------+------+-------+ | citalopram 40 mg | Take 40 mg by mouth | | | | | Activ | | oral tablet | once daily at | | | | | e | | | bedtime. | | | | | | + + +---------+---------+------+------+-------+ | loratadine | Take 10 mg by mouth | | | | | Activ | | (CLARITIN) 10 mg | once daily. | | | | | e | | oral tablet | | | | | | | + + +---------+---------+------+------+-------+ | LYRICA 225 mg oral | Take 1 capsule by | 60 | 1 | 08/2 | | Activ | | capsuleIndications: | mouth two times | capsule | | 20 | | e | | phantom pain | daily. At 0900 and | | | 18 | | | | | 1700. Indications: | | | | | | | | phantom pain | | | | | | + + +---------+---------+------+------+-------+ | naproxen 500 mg | | | | 03/1 | | Activ | | oral tablet | | | | 120 | | e | | | | | | 19 | | | + + +---------+---------+------+------+-------+ | clonazePAM 1 mg | | | | 03/0 | | Activ | | oral tablet | | | | 720 | | e | | | | | | 19 | | | + + +---------+---------+------+------+-------+ | buPROPion 75 mg | | | | 03/2 | | Activ | | oral tablet | | | | 8/20 | | e | | | | | | 19 | | | + + +---------+---------+------+------+-------+ Active Problems + + + | Problem | Noted Date | + + + | Encounter for long-term (current) use of antibiotics | 03/31/2018 | + + + | Osteomyelitis (HCC) | 03/31/2018 | + + + | Thrombocytopenia (HCC) | 03/25/2018 | + + + | Neutropenic fever (HCC) | 03/23/2018 | + + + | Hx of BKA, left ([facility]) | 03/23/2018 | + + + | Amputation stump infection ([facility]) | 03/23/2018 | + + + | Obesity | 03/23/2018 | + + + | Anemia | 03/23/2018 | + + + | 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 | + + + | [...] | 2018 | Visit | | | ([facility]) (Primary Dx) | +--------+ + + + [...] Appeal) | +--------+ + + + + | 10/21/ | Telephone | | Lynda Basurto, | Other (Letter) | | 2018 | | | | | +--------+ + + + + from Last 3 Months Immunizations + + + + | Name | Dates Previously Given | Next Due | + + + + | Influenza, | 06/09/2018 | | | injectable, | | | | quadrivalent, | | | | preservative free | | | | (IIV4) | | | + + + + Family [...] cm (5' 8") | 04/24/2018 2:04 PM PDT | + + + + [...] Scott | | | | | | [place], [place] | | | | | | [address] | | | | | | [phone] | | | | | | | | +--------+ + + + + | 03/25/ | Office | | Rosy BasurtoAlexander, | | | 2018 | Visit | | [address] | | | | | | [address] | | | | | | [place], [place] | | | | | | [address] | | | | | | [phone] | | | | | | | | +--------+ + + + + | 03/25/ | Office | | Sandra Patel MD | | | 2018 | Visit | | [address] | | | | | | [place], [place] | | | | | | [address] | | | | | | [phone] | | | | | | | | +--------+ + + + + + + + + + | Health Maintenance | Due Date | Last Done | Comments | + + + + + | Pneumococcal (Adult) | | | | | (1 of 3 - PCV13) | 3 | | | + + + + [...] | | | | 465 | | [id number]: Qty: 1 on | | | | [...] +---------+ + + ORDERS OTHER (12/01/2018 8:06 AM)Only the most recent of 2 results within the time period is included. + + + | Narrative [...] | BLUE | [phone] | PPO | [phone] | [address] [address] [place] | | | CROSS | | | [address] | [place] [address] | | | FEDERA | | | | | | | L | | | | | + +--------+ +--------+ + + | [facility] | | [phone] | Agency | [...] | + +--------+ +--------+ + + | TATI CAGE | Person | Self | [birth year] | Home: | [address] | | | [place] | | 1984 | [phone] | [place] [address] | | | emerita | | | [phone] | | + +--------+ +--------+ + +
--- OUTSIDE RECORDS SUMMARY | ~2018-12-19 | XMS | Clinical Summary ---
Demographics + + + | Address | [address] | | | [place] [address] | + + + | Home Phone | | + + + | Preferred Language | Unknown | + + + | Marital Status | Unknown | + + + | Mosque Affiliation | Unknown | + + + | Race | Unknown | + + + | Ethnic Group | Unknown | + + + Author + + + | Author | [facility] | + + + | Organization | [facility] | + + + | Address | Unknown | + + + | Phone | Unavailable | + + + Support + + + + + | Name | Relationship | Address | Phone | + + + + + | Kika Fox | ECON | [address] | | | | | [place] [address] | | + + + + + Care Team Providers + +------+ + | Care Slitter Service And Setter Name | Role | Phone | [...] +------+-------+ + | PREMERA | PREMER | [id number] | | | [address] [address] | | | A BLUE | | | | [place] | | | [place]OSS | | | | [address] | | | FED | | | | | | | PPO | | | | | + +--------+ +------+-------+ + | [facility] | YELLOW | [id number] | | | | | PLANS | [...] | Self | [birth year] | Home: | [address] | | | [place] | | 1984 | [phone] | [place] [address] | | | emerita | | | [phone] | | + +--------+ +--------+ + +
--- OUTSIDE RECORDS SUMMARY | ~2018-12-19 | XMS | Clinical Summary ---
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[facility]) | 03/23/2018 | + + + | Amputation stump infection ([facility]) | 03/23/2018 | + + + | Obesity | 03/23/2018 | + + + | Anemia | 03/23/2018 | + + + | 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 | + + + | [...] | 2018 | Visit | | | ([facility]) (Primary Dx) | +--------+ + + + [...] Scott | | | | | | [place], [place] | | | | | | [address] | | | | | | [phone] | | | | | | | | +--------+ + + + + | 03/25/ | Office | | Rosy BasurtoAlexander, | | | 2018 | Visit | | [address] | | | | | | [address] | | | | | | [place], [place] | | | | | | [address] | | | | | | [phone] | | | | | | | | +--------+ + + + + | 03/25/ | Office | | Sandra Patel MD | | | 2018 | Visit | | [address] | | | | | | [place], [place] | | | | | | [address] | | | | | | [phone] | | | | | | | [...] | | | | 465 | | [id number]: Qty: 1 on | | | | [...] | PPO | [phone]- | [address] [address] [place] | | | CROSS | | | [address] | [place] [address] | | | FEDERA | | | | | | | L | | | | | + +--------+ +--------+ + + | [facility] | | [phone] | Agency | [...] | Self | [birth year] | Home: | [address] | | | [place] | | 1984 | [phone] | [place] [address] | | | emerita | | | [phone] | | + +--------+ +--------+ + +
--- OUTSIDE RECORDS SUMMARY | ~2018-12-19 | XMS | Encounter Summary ---
Demographics + + + | Address | [address] | | | [place] [address] | + + + | Home Phone [...] Team Providers + +------+ + | Care Confectionery Maker Name | Role | Phone | [...] Rehabilitation at | [address] | ([facility]) (Primary Dx) | | | | [facility] [address] | [address] | | | | | [address] Mailcode: | [place], [place] | | | | | [place] [facility] | [address] | | | | | and Healing, | [phone] | | | | | [address] | | | | | | [place], [place] | | | | | | [address] | | | | | | [phone] | | | +--------+---------+ + + + [...] Scott | | | | | | [place], [place] | | | | | | [address] | | | | | | [phone] | | | | | | | | +--------+ + + + + | 03/25/ | Office | Orthopedics | Lynda Basurto, | | | 2018 | Visit | | [address] | | | | | | [address] | | | | | | [place], [place] | | | | | | [address] | | | | | | [phone] | | | | | | | | +--------+ + + + + | 03/25/ | Office | Hematology & | Sandra Patel MD | | | 2019 | Visit | Oncology | [address] | | | | | | [place], [place] | | | | | | [address] | | | | | | [phone] | | | | | | | | +--------+ + + + + as of this encounter Visit Diagnoses + + | Diagnosis | + + | Synovial sarcoma (HCC) - Primary | + + | 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
--- OUTSIDE RECORDS SUMMARY | ~2018-12-19 | XMS | Encounter Summary ---
Demographics + + + | Address | [address] | | | [place] [address] | + + + | Home Phone [...] Providers + +------+ + | Care Front Counter Clerk Name | Role | Phone | [...] | 2019 | on | Oncology at [facility] | | | | | | [facility] Healing | | | | | | [address] | | | | | | Mailcode: [facility] | | | | | | [facility] and | | | | | | [facility] | | | | | | [place], [place] | | | | | | [address] | | | | | | [phone] | | | +--------+ + + + [...] [place] | | | | | | [address] | | | | | | [phone] | | | | | | | | +--------+ + + + + | 03/25/ | Office | Orthopedics | Lynda Basurto, | | | 2018 | Visit | | [address] | | | | | | [address] | | | | | | [place], [place] | | | | | | [address] | | | | | | [phone] | | | | | | | | +--------+ + + + + | 03/25/ | Office | Hematology & | Sandra Patel MD | | | 2018 | Visit | Oncology | [address] | | | | | | [place], [place] | | | | | | [address] | | | | | | [phone] | | | | | | | | +--------+ + + + + as of this encounter Visit Diagnoses Not on filein this encounter"
--- OUTSIDE RECORDS SUMMARY | ~2018-12-19 | XMS | Clinical Summary ---
Demographics + + + | Address | [address] | | | [place] [address] | + + + | Home Phone | | + + + | Preferred Language | Unknown | + + + | Marital Status | Unknown | + + + | Restorationism Affiliation | Unknown | + + + | Race | Unknown | + + + | Ethnic Group | Unknown | + + + Author + + + | Author | [facility] | + + + | Organization | [facility] | + + + | Address | Unknown | + + + | Phone | Unavailable | + + + Support + + + + + | Name | Relationship | Address | Phone | + + + + + | Kika Fox | ECON | [address] | | | | | [place] [address] | | + + + + + Care Team Providers + +------+ + | Care Certified Registered Nurse Practitioner Name | Role | Phone [...] +------+-------+ + | PREMERA | PREMER | [id number] | | | [address] [address] | | | A BLUE | | | | [place] | | | [place]OSS | | | | [address] | | | FED | | | | | | | PPO | | | | | + +--------+ +------+-------+ + | [facility] | YELLOW | [id number] | | | | | PLANS | [...] | Self | [birth year] | Home: | [address] | | | [place] | | 1984 | [phone] | [place] [address] | | | emerita | | | [phone] | | + +--------+ +--------+ + +
--- OUTSIDE RECORDS SUMMARY | ~2018-12-19 | XMS | Encounter Summary ---
Demographics + + + | Address | [address] | | | [place] [address] | + + + | Home Phone [...] | | 2019 | | Oncology at [facility] | [address] | Appeal) | | | | for Health & Healing | [place], [place] | | | | | [address] | [address] | | | | | Mailcode: [facility] | [phone] | | | | | for Health and | | | | | | Healing, [facility] [address] | | | | | | [place], [place] | | | | | | [address] | | | | | | [phone] | | | +--------+ + + + [...] [place] | | | | | | [address] | | | | | | [phone] | | | | | | | | +--------+ + + + + | 03/25/ | Office | Orthopedics | Lynda Basurto, | | | 2018 | Visit | | [address] | | | | | | [address] | | | | | | [place], [place] | | | | | | [address] | | | | | | [phone] | | | | | | | | +--------+ + + + + | 03/25/ | Office | Hematology & | Sandra Patel MD | | | 2018 | Visit | Oncology | [address] | | | | | | [place], [place] | | | | | | [address] | | | | | | [phone] | | | | | | | | +--------+ + + + + as of this encounter Visit Diagnoses Not on filein this encounter"
--- OUTSIDE RECORDS SUMMARY | 2018-12-19 07:02 | XMS ---
PreManage Notification: ANNIKA BOWENS Security Community Program Assistant Events No recent Security Events currently on file CRITERIA MET - [facility] - PDMP CARE PROVIDERS FARHAN MOONEY Internal Medicine: Medical Oncology 04/17/2018-Current PHONE: Unknown ELENI CHEUNG Nurse Practitioner Current PHONE: Unknown RYAN VALDERRAMA \T\ Gynecology Current PHONE: Unknown Jerica Vila or Tight Barrel Inspector Current PHONE: [phone] RYAN VALDERRAMA Primary Care Current PHONE: Unknown Primary Care Primary Care Current PHONE: Unknown Guidelines Source: [facility] Guidelines Date: 05/01/2018 Care Coordination: PATIENT IS UNDER SERVICES AT [facility] DEPARTMENT.\T\nbsp; IF PATIENT IS SEEN IN THE ED, PLEASE NOTIFY THEM AT [phone].\T\nbsp; IF AFTER HOURS OR ON WEEKENDS PLEASE CALL SWITCHBOARD AT [phone] AND HAVE ON-CALL RN NOTIFIED. Care History Medical/Surgical 04/17/2018 [facility] - PATIENT IS CURRENTLY ON HOME HEALTH SERVICES AT [facility]. - PATIENT IS CURRENTLY ON CHEMO THERAPY. - PATIENT PCP IS AT [facility] ( DR FARHAN MOONEY) - PLEASE SEND ANY DISCHARGE DOCUMENTATION OF PATIENT ED VISIT TO [facility] DEPT WHEN PATIENT IS SEEN. E.D. VISIT COUNT ([address] 7 [facility] TOTAL 7 NOTE: Visits indicate total known visits. ED/UCC VISIT TRACKING (12 MO.) 12/19/2018 07:00 [facility] [place] TYPE: Emergency COMPLAINT: - L LEG PAIN/FALL 05/05/2018 14:08 [facility] [place] TYPE: Emergency COMPLAINT: - SORE THROAT DIAGNOSES: - Allergy status to other drugs, medicaments and biological substances status - Acute pharyngitis, unspecified - Other terminal block assembler (current) drug therapy - Neutropenia, unspecified - Allergy status to narcotic agent status - Morbid (severe) obesity due to excess calories 05/04/2018 11:39 [facility] [place] TYPE: Emergency COMPLAINT: - SORE THROAT DIAGNOSES: - Acute pharyngitis, unspecified - Allergy status to narcotic agent status - Allergy status to other drugs, medicaments and biological substances status - Decreased white blood cell count, unspecified - Morbid (severe) obesity due to excess calories - Other jail (current) drug therapy - Thrombocytopenia, unspecified 04/16/2018 21:30 [facility] [place] TYPE: Emergency COMPLAINT: - POSS LOW POTASSIUM DIAGNOSES: - Anxiety disorder, unspecified - Major depressive disorder, single episode, unspecified - Hypokalemia - Allergy status to narcotic agent status - Morbid (severe) obesity due to excess calories - termite technician (current) use of opiate analgesic - Allergy status to other drugs, medicaments and biological substances status - Other terminal block assembler (current) drug therapy 03/22/2018 22:31 [facility] [place] TYPE: Emergency COMPLAINT: - EXTREMITY PAIN/FEVER DIAGNOSES: - Allergy status to narcotic agent status - Major depressive disorder, single episode, unspecified - Morbid (severe) obesity due to excess calories - Fever, unspecified - Fever presenting with conditions classified elsewhere - Infection following a procedure, initial encounter - FPC (current) use of antibiotics - Other terminal block assembler (current) drug therapy - Anxiety disorder, unspecified - Allergy status to other drugs, medicaments and biological substances status - Neutropenia, unspecified - termite technician (current) use of opiate analgesic 03/21/2018 15:40 [facility] [place] TYPE: Emergency COMPLAINT: - FEVER/POSS DEHYDRATION DIAGNOSES: - Allergy status to other drugs, medicaments and biological substances status - Allergy status to narcotic agent status - Major depressive disorder, single episode, unspecified - Anxiety disorder, unspecified - Hypokalemia - Other jail (current) drug therapy - Morbid (severe) obesity due to excess calories - Fever, unspecified - Agranulocytosis secondary to cancer chemotherapy 02/28/2018 22:26 [facility] [place] TYPE: Emergency COMPLAINT: - FEVER-CANCER PT INPATIENT VISIT TRACKING (12 MO.) 05/05/2018 20:39 [facility] TYPE: Internal Medicine DIAGNOSES: 93551. NEUTROPENIC FEVER 39131. Infection of amputation stump, unspecified extremity 62101. Thrombocytopenia, unspecified 52802. Dysphagia, unspecified 18718. Malignant neoplasm of connective and soft tissue, unspecified 16056. termite technician (current) use of antibiotics 45000. Fever presenting with conditions classified elsewhere 36235. Neutropenia, unspecified 26434. Acute hematogenous osteomyelitis, unspecified site 04/24/2018 13:53 [facility] TYPE: Hematology DIAGNOSES: 92233. Sarcoma 34796. Obesity, unspecified 00159. Infection of amputation stump, unspecified extremity 74769. Osteomyelitis, unspecified 67381. Malignant neoplasm of connective and soft tissue, unspecified 03/23/2018 13:07 [facility] TYPE: Internal Medicine DIAGNOSES: 07383. fever neutropenia 25134. Obesity, unspecified 73871. Anemia, unspecified 34365. Acquired absence of left leg below knee 15804. Infection of amputation stump, unspecified extremity 76294. Osteomyelitis, unspecified 84322. Neutropenia, unspecified 25607. Malignant neoplasm of connective and soft tissue, unspecified 48785. Fever presenting with conditions classified elsewhere 03/12/2018 18:06 [facility] TYPE: Oncology DIAGNOSES: 00475. Malignant neoplasm of connective and soft tissue, unspecified 03/01/2018 00:44 [facility] [place] TYPE: Medical Surgical COMPLAINT: - NEUTROPENIC FEVER DIAGNOSES: - Acquired absence of left ankle - Fever presenting with conditions classified elsewhere - Other specified disorders of the skin and subcutaneous tissue related to radiation - Neutropenia, unspecified - Essential (primary) hypertension - Malignant neoplasm of connective and soft tissue of left lower limb, including hip - Neoplasm related pain (acute) (chronic) - Fever, unspecified - Gastro-esophageal reflux disease without esophagitis - Other specified anxiety disorders 02/19/2018 16:34 [facility] TYPE: Hematology DIAGNOSES: 77550. Malignant neoplasm of connective and soft tissue, unspecified 02/06/2018 09:56 [facility] TYPE: Orthopedic DIAGNOSES: 35761. SYNOVIAL SARCOMA LEFT FOOT . Malignant neoplasm of connective and soft tissue, unspecified . Localized swelling, mass and lump, left lower limb [email or web address]
[2018-12-19] MEDS ORDERED: OXYCODONE HCL5 MG PO ×2 (09:04→09:06)
== END 2018-12-19 09:18 | disposition home or self-care (01) ==
LOC: ED 06:58
DX: S80.12XA Contusion of left lower leg, initial encounter (principal); E66.01 Morbid (severe) obesity due to excess calories; F41.9 Anxiety disorder, unspecified; F32.9 Major depressive disorder, single episode, unspecified; C49.22 Malignant neoplasm of connective and soft tissue of left lower limb, including hip; Z88.8 Allergy status to other drugs, medicaments and biological substances; Z88.5 Allergy status to narcotic agent; Z79.899 Other long term (current) drug therapy; Z89.432 Acquired absence of left foot; W19.XXXA Unspecified fall, initial encounter
CPT/HCPCS: 73590; 96374; 96376; 99283-25; J3010

== ENCOUNTER 2019-01-30 23:28 | Emergency (ER) | payer BC, OTHER ==
[~2019-01-30] VITALS: Ht 172.7 cm; Wt 137.9 kg
--- OUTSIDE RECORDS SUMMARY | ~2019-01-30 | XMS | Encounter Summary ---
Demographics + + + | Address | [address] | | | [place] [address] | + + + | Home Phone | | + + + | Preferred Language | Unknown | + + + | Marital Status | Single | + + + | Judaism Affiliation | CAT | + + + | Race | Unknown | + + + | Ethnic Group | Not or | + + + Author + + + | Author | [facility] | + + + | Organization | [facility] | + + + | Address | Unknown | + + + | Phone | Unavailable | + + + Support + + +---------+ + | Name | Relationship | Address | Phone | + + +---------+ + | Kika Cage | ECON | Unknown | | + + +---------+ + Care Team Providers + +------+ + | Care Diagram Clerk Name | Role | Phone | + +------+ + | Santo Gooden MD | PCP | | + +------+ + Encounter Details +--------+ + + + + | Date | Type | Department | Care Team | Description | +--------+ + + + + | 01/22/ | Lab | LAB CORE [address] | Tommy Kaur, | | | 2017 | Requisition | [facility] [address] | [address] | | | | | [address] [place], [place] | [address] | | | | | [address] | [place], [place] | | | | | [phone] | [address] | | | | | | [phone] | | | | | | | | +--------+ + + + + Social History + +-------+ +--------+------+ | Tobacco Use | Types | Packs/Day | Years | Date | | | | | Used | | + +-------+ +--------+------+ | Never Smoker | | | | | + +-------+ +--------+------+ + +---+---+---+ | Smokeless Tobacco: | | | | | Never Used | | | | + +---+---+---+ + + +---------+ + | Alcohol Use | Drinks/Week | oz/Week | Comments | + + +---------+ + | No | | | | + + +---------+ + + + + | Sex Assigned at | Date Recorded | | | | + + + | Not on file | | + + + + + + + | Job Start Date | Occupation | Industry | + + + + | Not on file | Not on file | Not on file | + + + + + + + + | Travel History | Travel Start | Travel End | + + + + + + | No recent travel history available. | + + documented as of this encounter Plan of Treatment +--------+ + + + + | Date | Type | Specialty | Care Team | Description | +--------+ + + + + | 03/25/ | Appointment | Radiology | Sandra Patel MD | | | 2018 | | | [address] | | | | | | [place], [place] | | | | | | [address] | | | | | | [phone] | | | | | | | | +--------+ + + + + | 03/25/ | Office | Orthopedics | Lynda Basurto, | | | 2018 | Visit | | [address] | | | | | | [address] | | | | | | [place], [place] | | | | | | [address] | | | | | | [phone] | | | | | | | | +--------+ + + + + | 03/25/ | Office | Hematology & | Sandra Patel MD | | | 2018 | Visit | Oncology | [address] | | | | | | [place], [place] | | | | | | [address] | | | | | | [phone] | | | | | | | | +--------+ + + + + documented as of this encounter Procedures + +--------+ + + + | Procedure Name | Priori | Date/Time | Associated Diagnosis | Comments | | | ty | | | | + +--------+ + + + | SPECIMEN ROUTING TO | Routin | 01/22/2018 | Localized | | | KDL | e | 2:20 PM | swelling, mass and | | | | | PDT | lump, left lower | | | | | | limb | | + +--------+ + + + documented in this encounter Results SPECIMEN ROUTING TO KDL (01/22/2018 2:20 PM PDT) + + | Specimen | + + | Slide-Block | + + + + + + + | Performing | Address | City/State/Zipcode | Phone Number | | Organization | | | | + + + + + | [facility] | [address] | [place] [address] | | | DIAGNOSTIC | [address] | | | | LABORATORIES | | | | + + + + + documented in this encounter Visit Diagnoses + + | Diagnosis | + + | Localized swelling, mass and lump, left lower limb | + + documented in this encounter"
--- OUTSIDE RECORDS SUMMARY | ~2019-01-30 | XMS | Encounter Summary ---
Demographics + + + | Address | [address] | | | [place] [address] | + + + | Home Phone | | + + + | Preferred Language | Unknown | + + + | Marital Status | Single | + + + | Evangelical Affiliation | CAT | + + + | Race | Unknown | + + + | Ethnic Group | Not or | + + + Author + + + | Author | [facility] | + + + | Organization | [facility] | + + + | Address | Unknown | + + + | Phone | Unavailable | + + + Support + + +---------+ + | Name | Relationship | Address | Phone | + + +---------+ + | Kika Cage | ECON | Unknown | | + + +---------+ + Care Team Providers + +------+ + | Care Die Repairer Stamping Name | Role | Phone | + +------+ + | Santo Gooden MD | PCP | | + +------+ + Reason for Visit + + + | Reason | Comments | + + + | Post-discharge | Neulasta and Labs - Cycle #2 | | follow-up | | + + + Encounter Details +--------+ + + + + | Date | Type | Department | Care Team | Description | +--------+ + + + + | 02/26/ | Documentati | Hematology/Medical | Sandra Patel MD | Post-discharge | | 2018 | on | [facility] at [facility] | [address] | follow-up (Neulasta | | | | [facility] | [place], [place] | and Labs - Cycle #2) | | | | [address] | [address] | | | | | Mailcode: [place] | [phone] | | | | | for [facility] and | | | | | | Healing, [address] | | | | | | [place], [place] | | | | | | [address] | | | | | | [phone] | | | +--------+ + + + [...] + + documented as of this encounter Functional Status + + + + | Functional Status | Response | Date of Assessment | + + + + | Because of a physical, mental, or emotional | No | 02/20/2018 | | condition, do you have serious difficulty | | | | doing errands alone such as visiting the | | | | doctor? | | | + + + + + + + + | Cognitive Status | Response | Date of Assessment | + + + + | Because of a physical, mental, or emotional | No | 02/20/2018 | | condition, do you have serious difficulty | | | | concentrating, remembering, or making | | | | decisions? (5 years old or older) | | | + + + + documented as of this encounter Plan of Treatment +--------+ + + + + | Date | Type | Specialty | Care Team | Description | +--------+ + + + + | 03/25/ | Appointment | Radiology | Sandra Ptael MD | | | 2018 | | | [address] | | | | | | [place], [place] | | | | | | [address] | | | | | | [phone] | | | | | | | | +--------+ + + + + | 03/25/ | Office | Orthopedics | Lynda Basurto, | | | 2018 | Visit | | [address] | | | | | | [address] | | | | | | [place], [place] | | | | | | [address] | | | | | | [phone] | | | | | | | | +--------+ + + + + | 03/25/ | Office | Hematology & | Sandra Patel MD | | | 2018 | Visit | Oncology | [address] | | | | | | [facility], [place] | | | | | | [address] | | | | | | [phone] | | | | | | | | +--------+ + + + + documented as of this encounter Visit Diagnoses + + | Diagnosis | + + | 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
--- OUTSIDE RECORDS SUMMARY | ~2019-01-30 | XMS | Encounter Summary ---
Demographics + + + | Address | [address] | | | [place] [address] | + + + | Home Phone | | + + + | Preferred Language | Unknown | + + + | Marital Status | Single | + + + | Gnosticist Affiliation | CAT | + + + | Race | Unknown | + + + | Ethnic Group | Not or | + + + Author + + + | Author | [facility] | + + + | Organization | [facility] | + + + | Address | Unknown | + + + | Phone | Unavailable | + + + Support + + +---------+ + | Name | Relationship | Address | Phone | + + +---------+ + | Kika Cage | ECON | Unknown | | + + +---------+ + Care Team Providers + +------+ + | Care Ssis Developer Name | Role | Phone | + +------+ + | Santo Gooden MD | PCP | | + +------+ + Encounter Details +--------+ + + + + | Date | Type | Department | Care Team | Description | +--------+ + + + + | 02/11/ | Pharmacy | Outpatient Retail | | | | 2018 | Visit | [facility] | | | | | | [address] | | | | | | [facility] | | | | | | [place], [place] | | | | | | [address] | | | +--------+ + + + [...] | 2018 | | | [address] | | | | | | [place] | | | | | | [address] | | | | | | [phone] | | | | | | | | +--------+ + + + + | 03/25/ | Office | Orthopedics | Lynda Basurto, | | | 2018 | Visit | | [address] | | | | | | [address] | | | | | | [place] | | | | | | [address] | | | | | | [phone] | | | | | | | | +--------+ + + + + | 03/25/ | Office | Hematology & | Sandra Patel MD | | | 2018 | Visit | Oncology | [address] | | | | | | [place] | | | | | | [address] | | | | | | [phone] | | | | | | | | +--------+ + + + + documented as of this encounter Visit Diagnoses Not on filedocumented in this encounter"
--- OUTSIDE RECORDS SUMMARY | ~2019-01-30 | XMS | Encounter Summary ---
Demographics + + + | Address | [address] | | | [place] [address] | + + + | Home Phone | | + + + | Preferred Language | Unknown | + + + | Marital Status | Single | + + + | Jain Affiliation | CAT | + + + | Race | Unknown | + + + | Ethnic Group | Not or | + + + Author + + + | Author | [facility] | + + + | Organization | [facility] | + + + | Address | Unknown | + + + | Phone | Unavailable | + + + Support + + +---------+ + | Name | Relationship | Address | Phone | + + +---------+ + | Kika Cage | ECON | Unknown | | + + +---------+ + Care Team Providers + +------+ + | Care Psychiatric Rn Name | Role | Phone | + +------+ + | Santo Gooden MD | PCP | | + +------+ + Reason for Visit +--------+ + | Reason | Comments | +--------+ + | Other | nerve pain | +--------+ + Encounter Details +--------+ + + + + | Date | Type | Department | Care Team | Description | +--------+ + + + + | 02/17/ | Telephone | Orthopaedics at | Lynda Basurto, | Other (nerve pain) | | 2017 | | [facility] [address] | [address] [facility] | | | | | [place] Mailcode: [id number] | [address] | | | | | [facility] | [place], [place] | | | | | and [facility] | [address] | | | | | Floor [place], [place] | [phone] | | | | | [address] | | | | | | [phone] | | | +--------+ + + + [...] | Sandra Patel MD | | | 2019 | | | [address] | | | | | | [place], [place] | | | | | | [address] | | | | | | [phone] | | | | | | | | +--------+ + + + + | 03/25/ | Office | Orthopedics | Rosy BasurtoAlexander, | | | 2018 | Visit | | [address] | | | | | | [address] | | | | | | [place], [place] | | | | | | [address] | | | | | | [phone] | | | | | | | | +--------+ + + + + | 03/25/ | Office | Hematology & | Sandra Patel MD | | | 2018 | Visit | Oncology | [address] | | | | | | [place], [place] | | | | | | [address] | | | | | | [phone] | | | | | | | | +--------+ + + + + documented as of this encounter Visit Diagnoses Not on filedocumented in this encounter"
--- OUTSIDE RECORDS SUMMARY | ~2019-01-30 | XMS | Encounter Summary ---
Demographics + + + | Address | [address] | | | [place] [address] | + + + | Home Phone | | + + + | Preferred Language | Unknown | + + + | Marital Status | Single | + + + | Presybeterian Affiliation | CAT | + + + | Race | Unknown | + + + | Ethnic Group | Not or | + + + Author + + + | Author | [facility] | + + + | Organization | [facility] | + + + | Address | Unknown | + + + | Phone | Unavailable | + + + Support + + +---------+ + | Name | Relationship | Address | Phone | + + +---------+ + | Kika Cage | ECON | Unknown | | + + +---------+ + Care Team Providers + +------+ + | Care Currency Exchange Specialist Name | Role | Phone | + +------+ + | Santo Gooden MD | PCP | | + +------+ + Reason for Visit + + + | Reason | Comments | + + + | RN Care Management | | + + + | Infectious disease | | + + + Encounter Details +--------+ + + + + | Date | Type | Department | Care Team | Description | +--------+ + + + + | 05/09/ | Documentati | Infectious | Charlotte Engle, RN | RN Care Management; | | 2018 | on | [facility] at [facility] | [address] | Infectious disease | | | | Floor [address] | [facility] | | | | | [facility] | [place], [place] | | | | | Mailcode: [id number] | [address] | | | | | Physicians [facility] | [phone] | | | | | [place], [place] | | | | | | [address] | | | | | | [phone] | | | +--------+ + + + [...] physical, mental, or emotional | No | 05/06/2018 | | condition, do you have serious difficulty | | | | doing errands alone such as visiting the | | | | doctor? | | | + + + + + + + + | Cognitive Status | Response | Date of Assessment | + + + + | Because of a physical, mental, or emotional | No | 05/06/2018 | | condition, do you have serious [...] | | | 2019 | | | [address] | | | | | | [place], [place] | | | | | | [address] | | | | | | [phone] | | | | | | | | +--------+ + + + + | 03/25/ | Office | Orthopedics | Lynda Basurto, | | | 2018 | Visit | | [address] | | | | | | [address] | | | | | | [place], [place] | | | | | | [address] | | | | | | [phone] | | | | | | | | +--------+ + + + + | 03/25/ | Office | Hematology & | Sandra Patel MD | | | 2018 | Visit | Oncology | [address] | | | | | | [place], [place] | | | | | | [address] | | | | | | [phone] | | | | | | | | +--------+ + + + + documented as of this encounter Visit Diagnoses Not on filedocumented in this encounter"
--- OUTSIDE RECORDS SUMMARY | ~2019-01-30 | XMS | Encounter Summary ---
Demographics + + + | Address | [address] | | | [place] [address] | + + + | Home Phone | | + + + | Preferred Language | Unknown | + + + | Marital Status | Single | + + + | Orthodox Affiliation | CAT | + + + | Race | Unknown | + + + | Ethnic Group | Not or | + + + Author + + + | Author | [facility] | + + + | Organization | [facility] | + + + | Address | Unknown | + + + | Phone | Unavailable | + + + Support + + +---------+ + | Name | Relationship | Address | Phone | + + +---------+ + | Kika Cage | ECON | Unknown | | + + +---------+ + Care Team Providers + +------+ + | Care [place] Instructor Name | Role | Phone | + +------+ + | Santo Gooden MD | PCP | | + +------+ + Encounter Details +--------+ + + + + | Date | Type | Department | Care Team | Description | +--------+ + + + + | 05/07/ | Documentati | Infectious | Angely Stephen, | | | 2018 | on | [facility] at [facility] | [address] | | | | | Floor [address] | [facility] | | | | | [facility] | [place], [place] | | | | | Mail[address]: [id number] | [address] | | | | | Physicians Katie | [phone] | | | | | [place], [place] | | | | | | [address] | | | | | | [phone] | | | +--------+ + + + [...] | | | 2018 | | | [address] | | | | | | [place], [place] | | | | | | [address] | | | | | | [phone] | | | | | | | | +--------+ + + + + | 03/25/ | Office | Orthopedics | Lynda Basurto, | | | 2019 | Visit | | [address] | | | | | | [address] | | | | | | [place], [place] | | | | | | [address] | | | | | | [phone] | | | | | | | | +--------+ + + + + | 03/25/ | Office | Hematology & | Sandra Patel MD | | | 2019 | Visit | Oncology | [address] | | | | | | [place] | | | | | | [address] | | | | | | [phone] | | | | | | | | +--------+ + + + + documented as of this encounter Visit Diagnoses Not on filedocumented in this encounter"
--- OUTSIDE RECORDS SUMMARY | ~2019-01-30 | XMS | Encounter Summary ---
Demographics + + + | Address | [address] | | | [place] [address] | + + + | Home Phone | | + + + | Preferred Language | Unknown | + + + | Marital Status | Single | + + + | Denominational Affiliation | CAT | + + + | Race | Unknown | + + + | Ethnic Group | Not or | + + + Author + + + | Author | [facility] | + + + | Organization | [facility] | + + + | Address | Unknown | + + + | Phone | Unavailable | + + + Support + + +---------+ + | Name | Relationship | Address | Phone | + + +---------+ + | Kika Cage | ECON | Unknown | | + + +---------+ + Care Team Providers + +------+ + | Care Fleet Sales Associate Name | Role | Phone | + +------+ + | Santo Gooden MD | PCP | | + +------+ + Reason for Visit AUTH/CERT +--------+--------+ + + + + | Status | Reason | Specialty | Diagnoses / | Referred By | Referred To | | | | | Procedures | Contact | Contact | +--------+--------+ + + + + | | | | | | | +--------+--------+ + + + + Encounter Details +--------+---------+ + + + | Date | Type | Department | Care Team | Description | +--------+---------+ + + + | 03/24/ | Surgery | 6A Intra Op [facility] | Macie Torre, | I & D LEFT BKA STUMP | | 2017 | | [facility] | MD [address] | | | | | Admitting Desk | [place], [place] | | | | | Located on the | [id number] | | | | | floor [address] [facility] | [phone] | | | | | [facility] | | | | | | [place], [place] | | | | | | [address] | | | +--------+---------+ + + + Social History + +-------+ [...] + + documented as of this encounter Last Filed Vital Signs + + + + + | Vital Sign | Reading | Time Taken | Comments | + + + + + | Blood Pressure | 139/82 | 04/01/2018 7:50 AM | | | | | PDT | | + + + + + | Pulse | 74 | 04/01/2018 7:50 AM | | | | | PDT | | + + + + + | Temperature | 36.5 C (97.7 F) | 04/01/2018 7:50 AM | | | | | PDT | | + + + + + | Respiratory Rate | 16 | 04/01/2018 7:50 AM | | | | | PDT | | + + + + + | Oxygen Saturation | 100% | 04/01/2018 7:50 AM | | | | | PDT | | + + + + + | Inhaled Oxygen | - | - | | | Concentration | | | | + + + + + | Weight | 141.6 kg (312 lb 2.7 | 03/24/2018 9:45 AM | | | | oz) | PDT | | + + + + + | Height | 172.7 cm (5' 8") | 03/24/2018 9:45 AM | | | | | PDT | | + + + + + | Body Mass Index | 47.47 | 03/24/2018 9:45 AM | | | | | PDT | | + + + + + documented in this encounter Functional Status + + + [...] + + documented as of this encounter Discharge Summaries Greg Del Rosario MD - 04/01/2018 3:47 PM PDTFormatting of this note might be differen t from the original. Internal Medicine Service Discharge Summary PCP: Santo Gooden MD Author: GREG DEL ROSARIO MD Discharging Physician: GREG DEL ROSARIO MD Admission Date: 03/23/2018 Discharge Date: 04/01/2018 Hospital diagnoses: Diagnoses Principal Final Diagnosis: 1. 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 Coli, prevotella, E. Faecalis Additional Diagnoses: 2. Synovial sarcoma 3. Neutropenic fever 4. Severe anemia related to bone marrow suppression 5. Hypernatremia 6. Pancytopenia secondary to chemotherapy Involved consulting services: 1. Orthopedic surgery - Nicho Mcintosh and Briseyda 2. Hematology - Dr Woodward 3. ID - Dr Stephen 4. 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 Hospital Course by Problem: Left BKA siteinfection with osteomyelitis LLE cellulitis She developed infection of left her BKA site in setting of neutropenia. On 03/24/18, ortho p erformed irrigation, debridement, and wound vac placement, with improving erythema afterward . On 03/27/18, a second washout and debridement were performed prior to definitive closure. Intraoperative tissue and bone culutres yielded polymicrobial infection (E. coli, Enterococc us faecalis, and Prevotella bivia), and surgical pathology was consistent with osteomyelitis . She was initially treated empirically with vancomycin and cefepime, narrowed to piperacill in-tazobactam on return of susceptibilities. Per ID, plan for antibiotic course of 6 weeks f rom last procedure (03/27/18 - 05/08/18). Pain and lower extremity edema improved over hospital course. Drain was removed prior to discharge. - Piperacillin-tazobactam 10.125g IV continuously over 24 hours through [facility] until 05/08/18 - Discharged with oxycodone, acetaminophen, and pregabalin for pain management, along with bowel regimen - Follow-up with orthopaedic surgery and hematology-oncology on 04/09/18 - Follow-up with ID prior to ending antibiotic course - Outpatient physical therapy Neutropenic Fever, resolved On presentation to OSH,ANC was31. On transfer here, ANC was 640 and recovered steadily from there, with resolution of her fever. Per hem/onc, this neutropenia was expected after c ourse of ifosfamide, with neutrophil rodriguez typically occurring on day 8-14 after last dose ( her last dose 03/12/18).As above, her source of fever was her infection of left BKA site. B lood cultures were negative. Initial antibiotic treatment with vancomycin and cefepime, whic h was changed to piperacillin-tazobactam based on ID recommendations when susceptibilities r eturned from the BKA site tissue and bone cultures. Upon discharge, ANC was 8210 and she had been afebrile for 8 days. - Follow-up with her primary oncologist, Dr. Sandra Patel, on 04/09/18 Synovial Sarcoma, left foot Completed cycle 2 of ifosfamide/epirubicinon 03/12/18 soon after left BKA. Last dose of Ne ulasta on 03/17/18. - Follow-up with orthopaedic surgery and her primary oncologist on 04/09/18 regarding timing of cycle 3 of chemotherapy given complications of neutropenic fever and osteomyelitis Severe anemia Her WBC and platelet levels recovered early in her hospital course, but her anemia persiste d despite multiple transfusions (total of 7 units pRBCs here and 1 unit previously at OSH). Hematology was consulted, who believed her anemia was likely due to hypoproliferationin se tting of recentsystemic chemotherapy (anemia and marrow suppression are known side effects of ifosfamide), with exacerbation due to acute infection and inflammation. Workup was negat russ for consumptive pathology and blood loss (including CT abdomen, pelvis, legs). [facility] hemoglobin had improved and her repeat reticulocyte studies indicated an appropr iate response to anemia, suggesting marrow recovery. Hematology and primary team felt she wa s safe for discharge with close follow-up and repeat CBC and reticulocyte count this week. - Return precautions for signs and symptoms of anemia discussed with pt and her aunt - Repeat CBC and reticulocyte count on 04/04/18 - Follow-up with Dr. Sandra Patel, her primary oncologist, on 04/09/18 Thrombocytopenia Platelet count was 24 on admission, requiring transfusion with platelets x1 unit on 03/23/18 . Her levels subsequently recovered and were stable >200 upon discharge. No evidence of blee ding. - Follow-up on repeat CBC on 04/04/18 Hypernatremia, mild, asymptomatic Sodium mildly elevated at 147-148 over three days in setting of multiple procedures and per iods of NPO status. Improved after fluids, and was 140 upon discharge. She was never symptom atic. Pertinent Findings: Labs: WBC: 2.1 on admission, steadily increased to peak of 27, declined to 10.9 ANC: 31 at OSH, 640 on transfer here, steady increase to >5000. RBC: 8.2 on admission, labile over hospital course, dipping under 7 multiple times with low est value of 4.9, improved to 8.7 on discharge Plt: 24 on admission, steady improvement, 238 on discharge Reticulocyte count: 0.3 on 03/23 (absolute retic 9300), 6.8 on 04/01 (absolute retic 194,000) Normal haptoglobin Negative direct Brie Elevated fibrinogen Na: 148 at peak, 140 upon discharge Imaging: CT Abdomen and Pelvis with IV Contrast, 03/31/18: Unremarkable, no e/o hemorrhage CT Lower Extremities with IV Contrast, 03/31/18: No CT e/o osteomyelitis, hematoma, or absce ss Outstanding or Pending Labs/Studies: Plan for repeat CBC and reticulocyte count on 04/04/18 a [facility]. Appointments: Future Appointments Provider Department Dept Phone Center 04/09/2018 2:00 PM Hem Starter Nurse Hematology/Medical Oncology at [facility] [phone] HemOnc 04/09/2018 3:10 PM Sandra Patel Hematology/Medical Oncology at [place] [address] [phone] [facility] 04/09/2018 3:40 PM Lynda Basurto [facility]opa[facility] [phone] [place] Discharge condition: Fair Discharge destination (If SNF, which SNF): Home Discharge activity: Non-weight bearing LLE Discharge diet: Regular Medication List START taking these medications acetaminophen 500 mg Tab Commonly known as: TYLENOL Take 2 tablets by mouth every eight hours as needed for moderate pain. piperacillin-tazobactam IV continuous infusion Commonly known as: ZOSYN Inject 0.42 g/hr into the vein (IV) continuously. To be admixed per infusion pharmacy stand kenyon policy and/or procedure. Indications: bone/joint infection senna-docusate 8.6-50 mg Tab Commonly known as: SENOKOT S Take 2 tablets by mouth two times daily. Prevention of opioid induced constipation CHANGE how you take these medications OLANZapine 5 mg Tab Commonly known as: ZYPREXA Take 5 mg by mouth once daily at bedtime. What changed: Another medication with the same name was removed. Continue taking this medi cation, and follow the directions you see here. * polyethylene glycol 17 gram Pwpk Commonly known as: MIRALAX Mix 1 packet and take orally once daily. Take this medication while you are on narcotic marcos n medication. Hold for loose stool Indications: constipation What changed: Another medication with the same name was added. Make sure you understand ho w and when to take each. * polyethylene glycol 17 gram Pwpk Commonly known as: MIRALAX Mix 1 packet and take orally once daily as needed. No BM x 1 day What changed: You were already taking a medication with the same name, and this prescripti on was added. Make sure you understand how and when to take each. * This list has 2 medication(s) that are the same as other medications prescribed for you. Read the directions carefully, and ask your doctor or other care provider to review them wit h you. CONTINUE taking these medications citalopram 40 mg Tab Commonly known as: CELEXA Take 40 mg by mouth once daily. CLARITIN 10 mg Tab Generic drug: loratadine Take 10 mg by mouth once daily. lidocaine-prilocaine 2.5-2.5 % Crea Commonly known as: EMLA Apply to affected area as needed. Apply a thick layer to intact skin and cover with an occl usive dressing. LORazepam 0.5 mg Tab Commonly known as: ATIVAN Take 1 tablet by mouth every six hours as needed for anxiety (1st line nausea/vomiting). Miscellaneous Medical Supply [facility] Commonly known as: Miscellaneous Medical Supply Bedside commode for nighttime use following foot amputation. nystatin 100,000 unit/gram Powd Commonly known as: MYCOSTATIN Apply to affected area two times daily. Apply to candidal lesions until lesions have healed . Indications: skin infection, redness in pannus, skin folds ondansetron 8 mg Tab Commonly known as: ZOFRAN Take 1 tablet by mouth every twelve hours as needed (2nd line for nausea/vomiting). oxyCODONE (immediate release) 5 mg Tab Commonly known as: ROXICODONE Take 1 to 3 tablets by mouth every three hours as needed for moderate pain. Wean off soon and do not combine with other sedating meds like Clonazapam pregabalin 225 mg Cap Commonly known as: LYRICA Take 1 capsule by mouth two times daily. Indications: Postoperative Acute Pain, neuropathy, phantom pain prochlorperazine 10 mg Tab Commonly known as: COMPAZINE Take 1 tablet by mouth every six hours as needed (Give as first line agent for acute or del ayed nausea/vomiting). Max dose: 40 mg/day ranitidine 150 mg Tab Commonly known as: ZANTAC Take 150 mg by mouth once daily at bedtime. STOP taking these medications clindamycin 300 mg Cap Commonly known as: CLEOCIN hydroCHLOROthiazide 25 mg Tab Commonly known as: HYDRODIURIL Nxldsggol-Ecbszshlr-Gl-Mag-Sim [id number] mg/30 mL Mwsh Commonly known as: FIRST-MOUTHWASH BLM Discharge physical exam Vital Signs at discharge: BP: 139/82 (04/01/18 0750) Pulse: 74 (04/01/18 0750) Resp: 16 ( 0750) Weight: 141.6 kg (312 lb 2.7 oz) (03/24/18 0945) Body mass index is 47.47 kg/m. General: Awake, alert, obese female, smiling, in no acute distress. HEENT/Neck: Normocephalic, atraumatic, hairless scalp, no cervical lymphadenopathy, MMM Cardiovascular: RRR, no murmurs, well perfused, no cyanosis Pulmonary: CTAB, breathing comfortably on room air Abdominal: nontender, non-distended, obese Skin: [place], warm, well-perfused, no ecchymoses Extremities: LLE spgsy-gra-mskc amputation site dressed in compression wrap. Drain and skin VAC have been removed. PNB catheter has been removed. No significant TTP on BLE. Neuro: A&Ox4, grossly intact motor and sensory function Psych: Appropriate Lines: Port in place on right chest Discharge weight: Wt Readings from Last 1 Encounters: 03/24/18 141.6 kg (312 lb 2.7 oz) Discharging Physician: GREG DEL ROSARIO MD Attending Physician: GREG DEL ROSARIO MD I spent more than 36 minutes [id number] with the patient of which greater than 50% was sp ent counseling the patient coordinating care. documented in th is encounter Discharge Instructions Instructions Rashida Thompson RN - 04/01/2018In order to receive services for line care and l ab work at [facility] Out Patient Infusion/Day Surgery: you will first need to be seen by an MD (with privilidgjennifer at [facility]). Please go in to [facility] in [facility] to see an MD prior to your Saturday04/04/2018 [facility] your lab work. documented in this encounter Medications at Time of Discharge + + + +---------+--------+ + | Medication | Sig | Dispensed | Refills | Start | End Date | | | | | | Date | | + + + +---------+--------+ + | citalopram 40 mg | Take 40 mg by mouth | | 0 | | | | oral tablet | once daily at | | | | | | | bedtime. | | | | | + + + +---------+--------+ + | loratadine | Take 10 mg by mouth | | 0 | | | | (CLARITIN) 10 mg | once daily. | | | | | | oral tablet | | | | | | + + + +---------+--------+ + documented as of this encounter Progress Notes Junaid Burrell MD - 04/01/2018 12:24 PM PDTFormatting of this note might be different fr om the original. Orthopaedic Surgery Progress Note Patient: /Age: MRN: CSN: Date: Admission Date: Hospital Day: Orthopaedic Attending: Tati aCge 1985 32 y.o. [id number] 04/01/2018 03/23/2018 9 Macie Torre MD Diagnosis(es): left below-knee amputation stump infection Orthopaedic Procedure(s) & Date(s): 03/24/18: irrigation and debridement of left below-knee amputation stump, wound vac application 03/27/18: Irrigation, debridement, and revision of left below-knee amputation site, wound measuring 2 0 cm in length Subjective: Pain is much improved today. No other issues. Objective: Last Vitals: BP 139/82 | Pulse 74 | Temp 36.5 C (97.7 F) | RR 16 | Ht 1.727 m (5' 8") | Wt 141.6 kg (312 lb 2.7 oz) | SpO2 100% | BMI 47.47 kg/(m^2) 24 Hour Vital Min/Max: Systolic (24hrs), Av , Min:118 , Max:139 Diastolic (24hrs), Av, Min:64, Max:82 Pulse Min: 71 Max: 82 Temp Min: 36.5 C (97.7 F) Max: 36.8 C (98.2 F) Resp Min: 16 Max: 18 SpO2 Min: 97 % Max: 100 % Intake/Output Summary (Last 24 hours) at 03/29/18 0516 Last data filed at 03/29/18 0410 Gross per 24 hour Intake 3908.67 ml Output 965 ml Net 2943.67 ml Exam: General: appropriate, oriented Respiratory: Normal work of breathing on RA LEFT LOWER EXTREMITY: Inspection: Residual limb with wound vac holding suction at 125mmhg, no drainage, flexmast er intact Motor: fires quads, fires hamstrings, fires hip flexors Sensory: grossly intact to light touch proximal to thigh Drain: 15mL last 24 hours. Skin vac holding suction Assessment & Plan: Tati Cage is a 32 y.o.F with the diagnoses/procedures listed above. Doing well, no acute postop concerns. She is growing Enterococcus, E. Coli and P. bivia fro m intraop cultures, including cultures of bone. Final ID recs: zosyn x 6 weeks through jose ent's existing port. Care Protocol Items: 1. Immobility due to illness 1. Weight bearing: non-weight bearing, left lower extremity 2. ROM: as tolerated, motion encouraged 2. VTE prophylaxis: sequential compression devices, early ambulation 3. Antibiotics: Zosyn x 6 weeks 4. Special Concerns: Vac off and drain out prior to DC 5. Drains: Drain and incisional WV out prior to dc 6. Dressings: No dressings over the top of the wound vac. 5. Orthopaedic Follow-up: Please call the clinic to make a follow up appointment in [facility] 2 weeks with ORTHO ONCOLOGY, Odalys Tobin - (Adela) Junaid Burrell MD Orthopaedic Surgery, [phone] 03/31/2018 Cesia Vee NP - 04/01/2018 12:14 PM PDT Orthopaedic Surgery Progress Note Patient: /Age: MRN: CSN: Date: Admission Date: Hospital Day: Orthopaedic Attending: Tati Cage 1985 32 y.o. [phone] [id number] 04/01/2018 03/23/2018 9 Macie Torre MD Diagnosis(es): left below-knee amputation stump infection Orthopaedic Procedure(s) & Date(s): 03/24/18: irrigation and debridement of left below-knee amputation stump, wound vac application 03/27/18: Irrigation, debridement, and revision of left below-knee amputation site, wound measuring 2 0 cm in length S: Patient reports pain is well controlled and that she is ready to discharge home!!! Eatin g and drinking well. BP Readings from Last 1 Encounters: 04/01/18 139/82 Pulse Readings from Last 1 Encounters: 04/01/18 74 Resp Readings from Last 1 Encounters: 04/01/18 16 Wt on (03/23/2018) 141.6 kg (312 lb 2.7 oz) Temp Readings from Last 1 Encounters: 04/01/18 36.5 C (97.7 F) Body mass index is 47.47 kg/m. O: A&O x 3. In good spirits. Skin is pink, warm and dry. Cards not examined. Resp - slow sp ont - no cough - NAD. Abdomen is obese, soft, non-distended. LLE dressing removed and SINAN alberto in pulled - tip intact. Scant amount of serous drainage in bulb. Incision is well approximat ed without drainage, erythema or ecchymosis. Swelling in leg above wrap but none at surgical site. Sutures intact and incision well approximated. Covered sutures & incision with xerofo rm tape, then 4x4s and abd pad - no tape on skin. Re-wrapped stump and dressing - patient wi ll not allow wrap further up her leg due to pain. A/P: 32 y/o s/p procedure listed. Awaiting discharge and eager to go home. Surgical dressin g changed and wound appears to be healing well without signs or symptoms of infection or alberto inage. Cesia Foster NP [facility] [address] [place] [place] [address] Lynda Ravi MD - 04/01/2018 11:49 AM PDTPt eager to go home PE: Ht 1.727 m (5' 8"), Wt 141.6 kg (312 lb 2.7 oz), BP 139/82, Pulse 74, Temperature 36.5 C (97.7 F), RR 16, SpO2 100%, BMI 47.47 kg/(m^2). Facility age limit for growth percentiles is 18 years. dsg c/d/I Drain 15 A/P: s/p I&D and revision L BKA -IV abx -drain out and dsg change prior to discharge Dawit Gilliam - 03/31/2018 7:38 PM PDT General Internal Medicine 1 Progress Note 24 Hour Events: - pRBC x 2 units administered this morning for Hg 4.9. On recheck, Hg had increased to 10.2 . - Reassessed by APS. Pt weaned off peripheral nerve block and catheter was pulled. - Ortho removed L BKA wound drain Current Symptoms: Upon eval, pt is lying in bed. She says she feels somewhat tired. Notes mild diffuse abdomi nal discomfort for the past couple days, along with bilateral shoulder soreness. Denies brui sing anywhere on her body. Denies CP, SOB, back or flank pain. Denies hemoptysis, hematemesi s, hematochezia, and hematuria. The swelling and tightness in her lower extremities has impr davis. Says her pain is well controlled. Her aunt is present with her in the room. Physical Examination: Last 24 hour min/max Temp: 36.7 C (98.1 F) Temp Min: 36.5 C (97.7 F) Max: 36.7 C (98.1 F) Pulse: 60 Pulse Min: 60 Max: 85 Resp: 16 Resp Min: 14 Max: 16 BP: 118/75 BP Min: 111/55 Max: 137/80 SpO2: 100 % SpO2 Min: 96 % Max: 100 % Body mass index is 47.47 kg/m. Gen: AOx4 obese female in no distress HEENT: normocephalic, atraumatic, hairless scalp CV: RRR, no murmurs, well perfused, no cyanosis Pulm: breathing comfortably without stridor or audible wheeze Abd: non-distended, obese, minimal diffuse TTP Extr: LLE stump dressed in compression wrap, PNB catheter has been removed. Mildly edematou s RLE. No significant TTP on BLE. Neuro: Grossly intact motor and sensory function Psych: Appropriate Laboratory Interpretation: CBC with diff last 72 hours (or 3 results) Recent Labs 03/30/18 0619 03/31/18 0453 03/31/18 1357 WBC 19.18* 17.54* 11.10* HB 7.2* 4.9* 10.2* HCT 22.6* 15.4* 31.3* PLT 195 269 220 NEUTROPERC -- 79.1* -- LYMPHPERC -- 7.0* -- MONOPERC -- 3.5 -- BASOPERC -- 0.9 -- EOSPERC -- 0.0* -- Recent Labs 03/27/18 0356 03/28/18 0654 03/30/18 0619 03/30/18 1330 03/31/18 0453 03/31/18 1133 NA 147* -- 148* < > 145 -- 144 145 K 3.3* -- 3.7 < > 4.2 -- 4.3 4.2 CL 111* -- 114* < > 111* -- 110* 111* BICARB 29 -- 26 < > 28 -- 27 29 BUN 13 -- 11 < > 12 -- 12 13 CR 0.72 -- 0.58* < > 0.72 -- 0.67 0.70 GLU 103* < > 187* < > 87 135* 91 90 CA 8.0* -- 7.8* < > 8.1* -- 7.9* 8.4* AST 19 -- 17 -- -- -- -- 20 ALT 23 -- 21 -- -- -- -- 25 AP 59 -- 59 -- -- -- -- 55 TBILI 0.2* -- 0.1* -- -- -- -- 0.2* TP 5.8* -- 5.2* -- -- -- -- 5.3* ALB 2.5* -- 2.2* -- -- -- -- 2.6* ANIONGAP 7 -- 8 < > 6 -- 7 5 ANIONALBCOR 10 -- 12* -- -- -- -- 8 < > = values in this interval not displayed. Tissue Cultures from Debridement on 03/24/18 (1 from bone): E. coli in 5/5 samples (resistant to amp, Bactrim), Prevotella bivia in 5/5, Enterococcus f aecalis in 2/5 (sensitive to amp and vanc), Coag negative Staph in 1/5. Bone and Tissue Cultures from Repeat Debridement on 03/27/18 (3 from bone): E. Coli in 4/5. Blood Cultures (collected 03/23/18): Final report: No bacteria or yeast isolated at 5 days. Imaging Interpretation: CT Abdomen/Pelvis with IV Contrast, 03/31/18: "FINDINGS: LOWER THORAX: Unremarkable. LIVER: Mild periportal edema and gallbladder wall edema is nonspecific, possibly reflectin g fluid overload or retention. Otherwise unremarkable. BILIARY: No biliary dilatation. PANCREAS: Unremarkable. SPLEEN: Unremarkable. ADRENALS: Unremarkable. KIDNEYS/URETERS: Unremarkable. PELVIC ORGANS/BLADDER: IUD noted in the uterus. GI TRACT: Unremarkable. PERITONEUM: No free air or fluid. LYMPH NODES: No lymphadenopathy. VESSELS: Unremarkable. BONES AND SOFT TISSUES: Unremarkable. IMPRESSION: Unremarkable. No hemorrhage identified." CT Bilateral Lower Extremities with Contrast, 03/31/18: pending Assessment and Plan Tati Cage is a 32 yo female with morbid obesity and synovial sarcoma of left foots/p lef t BKA on 02/06/18 and 2 cycles of adjuvant chemotherapy with ifosfamide/epirubicin (last dose 03/12/18)who presented to OSH with neutropenicfever secondary to amputation-siteinfecti on. 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 Per ID, plan for treatment with 6 weeks of pip-tazo. # Left BKA siteinfection with osteomyelitis Infection of left BKA in setting of neutropenia initially. On 03/24/18, ortho performed irri gation, debridement, and wound vac placement, with improving erythema afterward. On 03/27/18, second procedure for repeat washout, debridement, and closure. SINAN drain placed, removed on 03/31/18 after minimal discharge. Tissue cultures, including bone, indicate polymicrobial inf ection and surgical pathology is consistent with osteomyelitis, so she is being treated for osteomyelitis. - Tissuecultures (1 from bone) taken during debridement on 03/24/18 show polymicrobial inf ection indicating osteomyelitis:E. coli, Prevotella bivia, Enterococcus faecalis. - Bone and tissue cultures during procedure on 03/27/18 growing E. coli. - ID recs: Pip-tazo for 6 weeks from last procedure (03/27/18 - 05/08/18) - While inpatient: Pip-tazo 3.375g IV q6h - OPAT: Pip-tazo 10.125g IV continuously over 24hr - Can receive antibiotics through her previously placed port - OPAT team notified, home-health orders placed - Pain: Ropivacaine peripheral nerve block discontinued, acetaminophen 1,000mg PO q8h, oxyc odone 5-15mg PO q3h PRN (naproxen discontinued due to anemia) # Neutropenic Fever, resolved On presentation to OSH,ANC was31. Neutropenia had resolved on admission here on 03/23/18 .This neutropenia was expected after course of ifosfamide, with neutrophil rodriguez typically occurring on day 8-14 after last dose (her last dose 03/12/18), per hem/onc.Most recent fe loree was 38.7 degrees C on morning of 03/24/18. Her WBC had been increasing over the week as h igh as 27, down to 11.1 today.Most likely source of fever was soft tissue infection of lef t BKA site. - Blood cultures here (drawn 03/23 after antibiotics initiated) show no growth to date on fi nal report. - ID consulted, see above plan # Pancytopenia # Kuepx-fe-dpzlehj anemia Pt's WBC and platelets have recovered, but her anemia persists despite repeated transfusion s (total of 7 units pRBCs here and 1 unit previously at OSH). Likely hypoproliferation (nichole campos low reticulocyte index of 0.09)in setting of recentsystemic chemotherapy (anemia an d marrow suppression are known side effects of ifosfamide) and acute inflammation. Workup th us far is negative for hemolytic anemia (normal haptoglobin, negative direct Brie), DIC (e levated fibrinogen), abdominal/pelvic bleed (negative CT abdomen/pelvis, pending CT lower ex tremities), and coagulopathy (normal coags). - Hg of 4.9 this morning --> pRBC x2 units --> repeat Hg showed greater than expected incre ase to 10.2. - Hematology consulted, appreciate recs: repeat reticulocyte studies. If persistently low r eticulocyte index, recommend bone marrow biopsy. - Repeat CBC tomorrow morning. # Synovial Sarcoma, left foot Completed cycle 2 of ifosfamide/epirubicinon 03/12/18 soon after left BKA. Original plan w as for neoadjuvant chemotherapy, but before it could be initiated she developed a significan t left foot infection after biopsy, leading to the BKA before chemo. Last dose of Neulasta o n 03/17/18. - Pt beingfollowed by onc [facility], appreciate recs. Dr. Sandra Patel is her primary oncologist and she will have follow up on 04/09 to discuss cycle 3 planning. # Mild LE edema Suspect due to IVF. Improved today. - compression stocking to RLE. # Thrombocytopenia, resolved s/p Platelets x1 unit administered on 03/23/18. # Hypernatremia, mild, asymptomatic Sodium mildly elevated at 147-148, likely free water deficit due to repeat procedures and p eriods of NPO. Improved after fluids. - 1/2 NS 20 KCl 1 L IV on 03/27/18 - D5W 1 L on 03/28/18 - D5W 1 L on 03/29/18 - daily BMP # Hypokalemia, improved # Hyperglycemia, transient and now resolved # Dispo Planning - Follow-up in clinic with ortho - Follow-up with Dr. Patel for C3 planning. Routine care: Feeding: regular diet Access: port DVT: sequential compression devices, enoxaparin 40mg subQ q12h discontinued given persisten t anemia Code: Full Dispo: Safe for discharge from ortho standpoint. Home pending stability of anemia and hemat ology workup. Dawit Amaya, MS4 [facility] [id number] Associated attestation - Greg Del Rosario MD - 03/31/2018 9:11 PM PDTGeneral Medicine Attending Progress Note Author: Greg Del Rosario MD Hospital Day # 8 PCP: Santo Gooden MD I personally interviewed the patient, performed the romero elements of the physical examinatio n, and personally formulated the assessment and plan with Dr Shell and Dr Dawit Amaya. Please see progress note for additional details; notable exceptions as written below. ROS as per GM note, all others negative. Problem List Patients Hospital Problem List: Active Hospital Problems 1) *Neutropenic fever (HCC) 2) Hx of BKA, left (HCC) 3) Amputation stump infection (HCC) 4) Anemia 5) Synovial sarcoma (HCC) 6) Obesity 7) Thrombocytopenia (HCC) 8) Encounter for long-term (current) use of antibiotics 9) Osteomyelitis (HCC) Impression: 32 yo F with synovial sarcoma s/p L BKA 02/06/18 and 2 cycles adjuvant chemotherapy, admitt ed with neutropenic fever, likely related to stump infection. Continues to demonstrate hct drop. No clear source of external bleeding. CT abdomen, pelv is, thighs negative for occult blood loss. Hemolysis labs negative. Suspect this is hypopr oliferative, though seems unusual this far removed from the last round of chemotherapy, when platelets and leukocytes have recovered. Have involved hematology. May need BM biopsy if counts fail to recover. Will plan for minimum 6 weeks IV pip/tazo (03/27 - 05/08) to treat polymicrobial stump infe ction via port. OPAT arranged. Nerve block removed today. Drain out today by ortho. Will need fu with ortho in 2 weeks, ID prior to cessation of IV antibiotics and oncology for luis enrique ing of chemotherapy restart. Can DC when hematocrit is stable. Anticipate ~ 2 days if sour ce identified and/or transfusion needs resolve. Patient/Family Goals & Expectations: Above problems discussed with the patient who understands and is agreeable with our plans. Greg Del Rosario MD [employer] Division of Hospital Medicine Teaching Attending I spent 37 minutes in the care of this patient, >50% engaged in bedside counseling or coord ination of care with orthopedics, anesthesia pain service.Bela Holt MD - 018 9:28 AM PDTPt weaned off PNB. Catheter pulled. Tip intact. Coag status normal prior to removal of catheter. APS will sign-off. Please pg APS [phone] with questions/concerns. Bela Holt MD APS # [id number] Lynda Ravi MD - 03/31/2018 9:14 AM PDTPt doing ok. Block weaned. Getting blood transfusion. PE: Ht 1.727 m (5' 8"), Wt 141.6 kg (312 lb 2.7 oz), BP 130/71, Pulse 66, Temperature 36.7 C (98.1 F), RR 14, SpO2 99%, BMI 47.47 kg/(m^2). Facility age limit for growth percentiles is 18 years. dsg c/d/I Drain 10 cx: e coli, enterococcus, prevotella A/P: s/p I&D L BKA -IV abx -block out today per pain team -drain out, dsg change -ok from ortho to discharge Junaid Gates MD - 03/31/2018 7:48 AM PDTFormatting of this note might be differ ent from the original. Orthopaedic Surgery Progress Note Patient: /Age: MRN: CSN: Date: Admission Date: Hospital Day: Orthopaedic Attending: Tati Cage 1985 32 y.o. [id number] 03/31/2018 03/23/2018 8 Macie Torre MD Diagnosis(es): left below-knee amputation stump infection Orthopaedic Procedure(s) & Date(s): 03/24/18: irrigation and debridement of left below-knee amputation stump, wound vac application 03/27/18: Irrigation, debridement, and revision of left below-knee amputation site, wound measuring 2 0 cm in length Subjective: Pain is improved today, but still significant. No other issues. Objective: Last Vitals: BP 130/71 | Pulse 66 | Temp 36.7 C (98.1 F) | RR 14 | Ht 1.727 m (5' 8") | Wt 141.6 kg (312 lb 2.7 oz) | SpO2 99% | BMI 47.47 kg/(m^2) 24 Hour Vital Min/Max: Systolic (24hrs), Av , Min:111 , Max:139 Diastolic (24hrs), Av, Min:55, Max:77 Pulse Min: 71 Max: 82 Temp Min: 36.5 C (97.7 F) Max: 36.8 C (98.2 F) Resp Min: 16 Max: 18 SpO2 Min: 97 % Max: 100 % Intake/Output Summary (Last 24 hours) at 03/29/18 0516 Last data filed at 03/29/18 0410 Gross per 24 hour Intake 3908.67 ml Output 965 ml Net 2943.67 ml Exam: General: appropriate, oriented Respiratory: Normal work of breathing on RA LEFT LOWER EXTREMITY: Inspection: Residual limb with wound vac holding suction at 125mmhg, no drainage, flexmast er intact Motor: fires quads, fires hamstrings, fires hip flexors Sensory: grossly intact to light touch proximal to thigh Drain: 10mL last 24 hours. Skin vac holding suction Assessment & Plan: Tati Cage is a 32 y.o.F with the diagnoses/procedures listed above. Doing well, no acute postop concerns. She is growing Enterococcus, E. Coli and P. bivia fro m intraop cultures, including cultures of bone. Final ID recs: zosyn x 6 weeks through [facility] existing port. Care Protocol Items: 1. Immobility due to illness 1. Weight bearing: non-weight bearing, left lower extremity 2. ROM: as tolerated, motion encouraged 2. VTE prophylaxis: sequential compression devices, early ambulation 3. Antibiotics: Zosyn x 6 weeks 4. Special Concerns: Vac off and drain out prior to DC 5. Drains: Drain out prior to dc 6. Dressings: No dressings over the top of the wound vac. 5. Orthopaedic Follow-up: Please call the clinic to make a follow up appointment in [facility] 2 weeks with ORTHO ONCOLOGY, Odalys Justen - (Sb and Jorge L) Junaid Burrell MD Orthopaedic Surgery, R3 [id number] 03/31/2018 Cesia Fay M D - 03/30/2018 4:51 PM PDTAPS Clarification Note; Tonight the continuous rate on the nerve block will be to 0 ml/hr and bolus only will be in place. Catheter will be pulled Saturday morning. Cesia Gaitan MD [facility] [id number] [facility], 4th Floor Mail Code: [id number] [place], [place] [address] oover, MD Rafael - 03/30/2018 4:35 PM PDT General Internal Medicine 1 Progress Note 24 Hour Events: - 1 uPRBC given with mediocre response - ID completed OPAT note for 6 weeks Zosyn - 160 MME of oxycodone used yesterday Current Symptoms: - pain not severe at this time, but was bad yesterday including a component of "tightness" from LE swelling after IVF. - agreeable to getting off the PNB by this evening and having bolus only available overnigh t. Wants to taper off pain medication in general and go home tomorrow. Physical Examination: Last 24 hour min/max Temp: 36.6 C (97.9 F) Temp Min: 36.4 C (97.5 F) Max: 36.7 C (98.1 F) Pulse: 85 Pulse Min: 65 Max: 92 Resp: 16 Resp Min: 16 Max: 18 BP: 139/67 BP Min: 123/59 Max: 139/67 SpO2: 98 % SpO2 Min: 98 % Max: 100 % Body mass index is 47.47 kg/m. Gen: AOx3 female in no distress HEENT: normocephalic, atraumatic, hairless scalp CV: well perfused, no cyanosis Pulm: breathing comfortably without stridor or audible wheeze Abd: non-distended, obese Extr: LLE stump dressed in compression wrap, PNB catheter in place. Mildly edematous RLE. Neuro: grossly intact motor and sensory function Psych: appropriate Laboratory Interpretation: CBC with diff last 72 hours (or 3 results) Recent Labs 03/27/18 0356 03/27/18 1810 03/28/18 0654 03/29/18 0708 WBC 23.11* 27.12* 19.93* 20.97* HB 8.0* 7.4* 9.2* 6.8* HCT 23.9* 22.0* 28.3* 20.9* PLT 95* 127* 106* 155 NEUTROPERC 66.9 -- 65.3 -- LYMPHPERC 12.2* -- 6.1* -- MONOPERC 6.1 -- 6.9 -- BASOPERC 0.9 -- 0.2 -- EOSPERC 0.0* -- 0.0* -- Recent Labs 03/26/18 0656 03/27/18 0356 03/28/18 0654 03/29/18 0708 03/29/18 1212 03/30/18 0619 03/30/18 1330 NA 144 147* -- 148* 147* -- 145 -- K 3.5 3.3* -- 3.7 4.1 -- 4.2 -- CL 108 111* -- 114* 113* -- 111* -- BICARB 30 29 -- 26 27 -- 28 -- BUN 15 13 -- 11 14 -- 12 -- CR 0.65 0.72 -- 0.58* 0.73 -- 0.72 -- GLU 107* 103* < > 187* 96 87 87 135* CA 7.8* 8.0* -- 7.8* 7.9* -- 8.1* -- AST 14 19 -- 17 -- -- -- -- ALT 21 23 -- 21 -- -- -- -- AP 64 59 -- 59 -- -- -- -- TBILI 0.2* 0.2* -- 0.1* -- -- -- -- TP 5.7* 5.8* -- 5.2* -- -- -- -- ALB 2.5* 2.5* -- 2.2* -- -- -- -- ANIONGAP 6 7 -- 8 7 -- 6 -- ANIONALBCOR 9 10 -- 12* -- -- -- -- < > = values in this interval not displayed. Tissue Cultures from Debridement on 03/24/18 (1 from bone): E. coli in 5/5 samples (resistant to amp, Bactrim), Prevotella bivia in 5/5, Enterococcus f aecalis in 2/5 (sensitive to amp and vanc), Coag negative Staph in 1/5. Bone and Tissue Cultures from Repeat Debridement on 03/27/18 (3 from bone): E. Coli in 4/5. Blood Cultures (collected 03/23/18): Final report: No bacteria or yeast isolated at 5 days. Imaging Interpretation: No new imaging. 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 Per ID, plan for treatment with 6 weeks of pip-tazo. # Left BKA siteinfection with osteomyelitis Infection of left BKA in setting of neutropenia initially. On 03/24/18, ortho performed irri gation, debridement, and wound vac placement, with improving erythema afterward. On 03/27/18, second procedure for repeat washout, debridement, and closure. SINAN drain and skin VAC were p laced, both of which will be removed prior to discharge. Tissue cultures, including bone, in dicate polymicrobial infection and surgical pathology is consistent with osteomyelitis, so s he is being treated for osteomyelitis. - Tissuecultures (1 from bone) taken during debridement on 03/24/18 show polymicrobial inf ection indicating osteomyelitis:E. coli, Prevotella bivia, Enterococcus faecalis. - Bone and tissue cultures during procedure on 03/27/18 growing E. coli. - ID recs: Pip-tazo for 6 weeks from last procedure (03/27/18 - 05/08/18) - While inpatient: Pip-tazo 3.375g IV q6h - OPAT: Pip-tazo 10.125g IV continuously over 24hr - Can receive antibiotics through her previously placed port - OPAT team notified; she can receive antibiotics from home or SNF - Pain: wean Ropivacaine peripheral nerve block, acetaminophen 1,000mg PO q8h, naproxen 500 mg BID, oxycodone 5-15mg PO q3h PRN # Neutropenic Fever, resolved On presentation to OSH,ANC was31. Neutropenia had resolved on admission here on 03/23/18 .This neutropenia was expected after course of ifosfamide, with neutrophil rodriguez typically occurring on day 8-14 after last dose (her last dose 03/12/18), per hem/onc.Most recent fe loree was 38.7 degrees C on morning of 03/24/18. Her WBC had been increasing over the week as h igh as 27, down to 20.9 today.Most likely source of fever was soft tissue infection of lef t BKA site. - Blood cultures here (drawn 03/23 after antibiotics initiated) show no growth to date on fi nal report. - ID consulted, see above plan # Synovial Sarcoma, left foot Completed cycle 2 of ifosfamide/epirubicinon 03/12/18 soon after left BKA. Original plan w as for neoadjuvant chemotherapy, but before it could be initiated she developed a significan t left foot infection after biopsy, leading to the BKA. Last dose of Neulasta on 03/17/18. - Pt beingfollowed by onc [facility], appreciate recs. Dr. Sandra Patel is her primary oncologist and she will have follow up on 04/09 to discuss cycle 3 planning. # mild LE edema Suspect due to IVF. - compression stocking to RLE. - will consider lasix # Pancytopenia # Hggyl-vy-llzctkp anemia Likely hypoproliferationin setting of recentsystemic chemotherapy and acute inflammatio n. Will continue to monitor and transfuse as needed, goal >7. - She has received a total of 5 units of pRBCs at [facility] and 1 unit previously at OSH. - Repeat CBC tomorrow morning. # Thrombocytopenia- resolved s/p Platelets x1 unit administered on 03/23/18. # Hypernatremia, mild, asymptomatic Sodium mildly elevated at 147-148 over last 3 days, likely free water deficit due to repeat procedures and periods of NPO. - 1/2 NS 20 KCl 1 L IV on 03/27/18 - D5W 1 L on 03/28/18 - D5W 1 L on 03/29/18 - daily BMP # Hypokalemia, improved # Hyperglycemia, transient and now resolved # Dispo Planning - Skin VAC and drain should be removed prior to discharge so she can have a regular dressin g - Follow-up in clinic with ortho - Follow-up with Dr. Patel for C3 planning. Routine care: Feeding: regular diet Access: port DVT: sequential compression devices, enoxaparin 40mg subQ q12h Code: Full Dispo: home Saturday or Saturday depending on pain control and surgical wound Rafael Shell PGY-2 Internal Medicine Pager # [phone] Associated attestation - Greg Del Rosario MD - 03/30/2018 11:28 PM PDTGeneral Medicine Attending Progress Note Author: Greg Del Rosario MD Hospital Day # 7 PCP: Santo Gooden MD I personally interviewed the patient, performed the romero elements of the physical examinatio n, and personally formulated the assessment and plan with Dr Shell and Dr Hoskins. Please see progress note for additional details; notable exceptions as written below. ROS as per GM note, all others negative. 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 Tissue and bone cultures yielded enterococcus, E coli and prevotella consistent with polymi crobial osteomyelitis in the setting of stump infection. Have involved ID for treatment domingo nning -- will convert her to pip/tazo for a planned 6 week course from the date of her lates t debridement and closure (03/27). Discharge barriers include successful wean of nerve block, OPAT teaching, removal of drains , adequate fluid intake and stable hematocrit. Possible these criteria could be met as larry y as tomorrow. Patient/Family Goals & Expectations: Above problems discussed with the patient who understands and is agreeable with our plans. Greg Del Rosario MD [employer] Division of Hospital Medicine Teaching Attending I spent 36 minutes in the care of this patient, >50% engaged in bedside counseling or coord ination of care with anesthesia pain service. Cesia Gaitan MD - 03/30/2018 10:40 AM PDTFormatting of this note might be different f rom the original. INPATIENT ADULT PAIN SERVICE PERIPHERAL NERVE BLOCK PROGRESS NOTE 03/30/2018 Author: Cesia Gaitan MD Adult Pain Service Attending Physician: Cesia Gaitan MD Main complaint: Acute postoperative pain. Block day # 3. Ms. Cage is POD# 3. Status post: Irrigation, debridement, and revision of left below-knee amputation site, wound measuring 20 cm in length Interval events since last APS visit: Holding the course. Type of peripheral nerve block: left lower extremity Sciatic Ms. Cage complains of left lower extremity pain. Ms. Cage's pain score at rest is 0/10. With activity, her pain score is 5/10. Specific ac tivities that exacerbate Ms. Elizabeths pain include most activities. Ms. Cage is satisfied wit h current level of pain. ROS/Side Effects: Nausea/Vomiting: none Pruritus: none Numbness/Weakness: none Low BP: none Dizziness: none Sedation: none General: Patient complains of negative. Other complaints: None Current activity level: Out of bed Able to work with PT:Yes Diet: Full liquids/Reg Diet/Tube Feeds Past Medical History: History of chronic or preoperative pain: yes: location: left lower extremity. Prior to hospitalization: Oxycodone 5-15 mg every three hours as needed, Pregabalin 225 mg BID Current Medications: Current Facility-Administered Medications Medication Dose Route Frequency Last Rate acetaminophen (TYLENOL) tablet 1,000 mg 1,000 mg oral Q8H citalopram (CELEXA) tablet 40 mg 40 mg oral HS enoxaparin (LOVENOX) injection 40 mg 40 mg subcutaneous Q12H (Scheduled) famotidine (PEPCID) tablet 20 mg 20 mg oral BID loratadine (CLARITIN) tablet 10 mg 10 mg oral DAILY naproxen (NAPROSYN) tablet 500 mg 500 mg oral BID nystatin (MYCOSTATIN) powder topical BID OLANZapine (ZYPREXA) tablet 5 mg 5 mg oral HS piperacillin-tazobactam (ZOSYN) IV (minibag+) 3.375 g 3.375 g intravenous Q6H Stopped (03/30/18 1040) polyethylene glycol (MIRALAX) packet 17 g 17 g oral DAILY pregabalin (LYRICA) capsule 225 mg 225 mg oral BID senna-docusate (SENOKOT S) 8.6-50 mg 2 tablet 2 tablet oral BID Current Facility-Administered Medications Medication Dose Route Frequency Last Rate bisacodyl (DULCOLAX) suppository 10 mg 10 mg rectal DAILY PRN diphenhydrAMINE (BENADRYL) capsule 25 mg 25 mg oral Q6H PRN ygvracwyikEVFNK-warpxrbkj-ECJNRH (SPECIAL MOUTHWASH) suspension (compound) 5 mL 5 mL o ral QID PRN heparin 10 unit/mL IV flush syringe 50 Units 50 Units intravenous PRN heparin 100 unit/mL IV flush 500 Units 500 Units intravenous PRN LORazepam (ATIVAN) tablet 0.5 mg 0.5 mg oral HS PRN melatonin tablet 3 mg 3 mg oral HS PRN menthol-zinc oxide (CALAZIME) topical paste 0.2%-16.5% topical BID PRN ondansetron (ZOFRAN) tablet 8 mg 8 mg oral Q12H PRN oxyCODONE (immediate release) (ROXICODONE) tablet 5-15 mg 5-15 mg oral Q3H PRN polyethylene glycol (MIRALAX) packet 34 g 34 g oral TID PRN Current Facility-Administered Medications Medication Dose Route Frequency Last Rate ropivacaine (PF) 0.2 % in NaCl 0.9 % (NS) peripheral nerve block (CADD PUMP) injectio n CONTINUOUS 4 mL/hr at 03/30/18 1038 Pump Infusion: Ropivacaine 0.2% at 6 mL/hour The above medication list includes the following analgesics: Opioids: Oxycodone 5-15 mg every 3 hours as needed Other analgesics: Acetaminophen PO 1,000 mg every 8 hours Other psychoactive medications: Celexa Anticoagulants: Enoxaparin 40mg subcutaneous BID, last dose given today at 1032 hrs. Lab Results Component Value Date INRPT 1.12 03/23/2018 PLT 195 03/30/2018 APTT 33.1 03/23/2018 Allergies: Allergies Allergen Reactions Chlorhexidine Rash Demerol [Meperidine Hcl] Pruritus Morphine Pruritus Physical Exam: Last Vitals: BP 132/62 | Pulse 92 | Temp 36.6 C (97.9 F) | RR 16 | Ht 1.727 m (5' 8") | Wt 141.6 kg (312 lb 2.7 oz) | SpO2 99% | BMI 47.47 kg/(m^2) 24 hour Vitals min/max : Systolic (24hrs), Av , Min:121 , Max:136 Diastolic (24hrs), Av, Min:59, Max:73 Pulse Min: 65 Max: 92 Temp Min: 36.4 C (97.5 F) Max: 36.7 C (98.1 F) Resp Min: 16 Max: 18 SpO2 Min: 99 % Max: 100 % General Appearance and Neurological Examination: Mental Status:Alert Orientation: Oriented Sensory: Intact Motor: Intact Nerve block site: Depth at skin: covered by dressing. Clinically significant migration since placement: NO Dressing: Intact Exit Site: Clean Catheter site exposed? Yes Pertinent organ system(s): Negative Assessment: Ms. Cage rates pain relief as good. My personal assessment is concordant with this evaluat ion. PNB troubleshooting was needed: no Diagnosis: 1. Acute post operative pain 2. Synovial sarcoma Recommendations: Weaning the catheter for discontinuation tomorrow. Tonight the continuous rate will be do ne and bolus only will be in place. Catheter will be pulled Saturday. Peripheral nerve block in place: If Hood is in place, it may be removed if deemed appropri ate by primary care team. I discussed our findings and recommendations with primary care team provider . Cesia Gaitan MD Cesia Fay MD - 03/30/2018 10:26 AM PDT INPATIENT ADULT PAIN SERVICE PERIPHERAL NERVE BLOCK PROGRESS NOTE 03/29/2018- THIS IS LATE ENTRY NOTE FOR 03/29. Author: Cesia Gaitan MD Adult Pain Service Attending Physician: Cesia Gaitan MD Main complaint: Acute postoperative pain. Block day # 2. Ms. Cage is POD# 2 Status post: Irrigation, debridement, and revision of left below-knee amputation site, wound measuring 20 cm in length. Interval events since last APS visit: Holding the course Type of peripheral nerve block: left lower extremity brachial plexus Sciatic Ms. Cage complains of some swelling in the left lower extremity. Ms. Cage's pain score at rest is 0/10. With activity, her pain score is 5/10. Specific ac tivities that exacerbate Ms. Cage's pain include most activities. Ms. Cage is satisfied wit h current level of pain. ROS/Side Effects: Nausea/Vomiting: none Pruritus: none Numbness/Weakness: none Low BP: none Dizziness: none Sedation: none General: Patient complains of negative. Other complaints: None Current activity level: Out of bed Able to work with PT:Yes Diet: Full liquids/Reg Diet/Tube Feeds Past Medical History: History of chronic or preoperative pain: yes: location: left lower extremity. Prior to hospitalization: Oxycodone 5-15 mg every three hours as needed, Pregabalin 225 mg BID Current Medications: Current Facility-Administered Medications Medication Dose Route Frequency Last Rate acetaminophen (TYLENOL) tablet 1,000 mg 1,000 mg oral Q8H citalopram (CELEXA) tablet 40 mg 40 mg oral HS enoxaparin (LOVENOX) injection 40 mg 40 mg subcutaneous Q12H (Scheduled) famotidine (PEPCID) tablet 20 mg 20 mg oral BID loratadine (CLARITIN) tablet 10 mg 10 mg oral DAILY naproxen (NAPROSYN) tablet 500 mg 500 mg oral BID nystatin (MYCOSTATIN) powder topical BID OLANZapine (ZYPREXA) tablet 5 mg 5 mg oral HS piperacillin-tazobactam (ZOSYN) IV (minibag+) 3.375 g 3.375 g intravenous Q6H 0 g ( 0335) polyethylene glycol (MIRALAX) packet 17 g 17 g oral DAILY pregabalin (LYRICA) capsule 225 mg 225 mg oral BID senna-docusate (SENOKOT S) 8.6-50 mg 2 tablet 2 tablet oral BID Current Facility-Administered Medications Medication Dose Route Frequency Last Rate bisacodyl (DULCOLAX) suppository 10 mg 10 mg rectal DAILY PRN diphenhydrAMINE (BENADRYL) capsule 25 mg 25 mg oral Q6H PRN lvennbdawmBRPMO-rnsfixccq-TDUUAM (SPECIAL MOUTHWASH) suspension (compound) 5 mL 5 mL o ral QID PRN heparin 10 unit/mL IV flush syringe 50 Units 50 Units intravenous PRN heparin 100 unit/mL IV flush 500 Units 500 Units intravenous PRN LORazepam (ATIVAN) tablet 0.5 mg 0.5 mg oral HS PRN melatonin tablet 3 mg 3 mg oral HS PRN menthol-zinc oxide (CALAZIME) topical paste 0.2%-16.5% topical BID PRN ondansetron (ZOFRAN) tablet 8 mg 8 mg oral Q12H PRN oxyCODONE (immediate release) (ROXICODONE) tablet 5-15 mg 5-15 mg oral Q3H PRN polyethylene glycol (MIRALAX) packet 34 g 34 g oral TID PRN Current Facility-Administered Medications Medication Dose Route Frequency Last Rate ropivacaine (PF) 0.2 % in NaCl 0.9 % (NS) peripheral nerve block (CADD PUMP) injectio n CONTINUOUS 6 mL/hr at 03/30/18 0658 Pump Infusion: Ropivacaine 0.2% at 6 mL/hour The above medication list includes the following analgesics: Opioids: Oxycodone 5-15 mg every 3 hours as needed Other analgesics: Acetaminophen PO 1,000 mg every 8 hours Other psychoactive medications: Celexa Anticoagulants: Enoxaparin 40mg subcutaneous daily, last dose given yesterday at 2100 hrs. Lab Results Component Value Date INRPT 1.12 03/23/2018 PLT 195 03/30/2018 APTT 33.1 03/23/2018 Allergies: Allergies Allergen Reactions Chlorhexidine Rash Demerol [Meperidine Hcl] Pruritus Morphine Pruritus Physical Exam: Last Vitals: BP 132/62 | Pulse 92 | Temp 36.6 C (97.9 F) | RR 16 | Ht 1.727 m (5' 8") | Wt 141.6 kg (312 lb 2.7 oz) | SpO2 99% | BMI 47.47 kg/(m^2) 24 hour Vitals min/max : Systolic (24hrs), Av , Min:121 , Max:136 Diastolic (24hrs), Av, Min:59, Max:73 Pulse Min: 65 Max: 92 Temp Min: 36.4 C (97.5 F) Max: 36.7 C (98.1 F) Resp Min: 16 Max: 18 SpO2 Min: 99 % Max: 100 % General Appearance and Neurological Examination: Mental Status:Alert Orientation: Oriented Sensory: Intact Motor: Intact Nerve block site: Depth at skin: covered by dressing. Clinically significant migration since placement: NO Dressing: Intact Exit Site: Clean Catheter site exposed? No Pertinent organ system(s): Negative Assessment: Ms. Cage rates pain relief as good. My personal assessment is concordant with this evaluat ion. PNB troubleshooting was needed: no Diagnosis: 1. Acute post operative pain 2. Synovial sarcoma Recommendations: 1.) Hold the course today. We will wean the nerve block tomorrow. Peripheral nerve block in place: If Hood is in place, it may be removed if deemed appropri ate by primary care team. I discussed our findings and recommendations with primary care team provider . Cesia Gaitan MD Macie Ambriz MD - 03/30/2018 10:00 AM PDT INPATIENT PROGRESS NOTE Hospital Day:7 Author; MACIE PAZ MD Interval Hx: feeling better Physical Exam: Last Vitals: BP 132/62 | Pulse 92 | Temp 36.6 C (97.9 F) | RR 16 | Ht 1.727 m (5' 8") | Wt 141.6 kg (312 lb 2.7 oz) | SpO2 99% | BMI 47.47 kg/(m^2) O2 Delivery Device: None (room air) (03/30/18 0940) 24 Hour Vital Min/Max: Systolic (24hrs), Av , Min:121 , Max:136 Diastolic (24hrs), Av, Min:59, Max:73Puls e Av.3 Min: 65 Max: 92 Temp Av.6 C (97.8 F) Min: 36.4 C (97.5 F) Max: 36.7 C (98.1 F) Resp Av.3 Min: 16 Max: 18 SpO2 Av.8 % Min: 99 % Max: 100 % Intake/Output Summary (Last 24 hours) at 03/30/18 1000 Last data filed at 03/30/18 0626 Gross per 24 hour Intake 1001.8 ml Output 1340 ml Net -338.2 ml dressing c/d drain mostly serous Assessment and Plan: Stable. continue abx. wean block. Adam Vallejo MD - 0 03/30/2018 6:45 AM PDT Orthopaedic Surgery Progress Note Patient: /Age: MRN: CSN: Date: Admission Date: Hospital Day: Orthopaedic Attending: Tati Cage 1985 32 y.o. [id number] 03/30/2018 03/23/2018 7 Macie Torre MD Diagnosis(es): left below-knee amputation stump infection Orthopaedic Procedure(s) & Date(s): 03/24/18: irrigation and debridement of left below-knee amputation stump, wound vac application 03/27/18: Irrigation, debridement, and revision of left below-knee amputation site, wound measuring 2 0 cm in length Subjective: ID recs: zosyn x 6 weeks Plan to start nerve block taper today Continues to have some burning pain, would like to keep flexmaster wrap on for swelling. Objective: Last Vitals: BP 123/59 | Pulse 72 | Temp 36.7 C (98.1 F) | RR 16 | Ht 1.727 m (5' 8") | Wt 141.6 kg (312 lb 2.7 oz) | SpO2 100% | BMI 47.47 kg/(m^2) 24 Hour Vital Min/Max: Systolic (24hrs), Av , Min:121 , Max:136 Diastolic (24hrs), Av, Min:59, Max:73 Pulse Min: 71 Max: 82 Temp Min: 36.5 C (97.7 F) Max: 36.8 C (98.2 F) Resp Min: 16 Max: 18 SpO2 Min: 97 % Max: 100 % Intake/Output Summary (Last 24 hours) at 03/29/18 0516 Last data filed at 03/29/18 0410 Gross per 24 hour Intake 3908.67 ml Output 965 ml Net 2943.67 ml Exam: General: appropriate, oriented Respiratory: Appropriate, Not auscultated, no increased work of breathing. LEFT LOWER EXTREMITY: Inspection: Residual limb with wound vac holding suction at 125mmhg, flexmaster intact Motor: fires quads, fires hamstrings, fires hip flexors Sensory: grossly intact to light touch proximal to thigh, diminished to light touch near wound edge. Drain: 10mL last 24 hours. Skin vac holding suction Assessment & Plan: Tati Cage is a 32 y.o.F with the diagnoses/procedures listed above. Doing well, no acute postop concerns. She is growing Enterococcus, E. Coli and P. bivia fro m intraop cultures, including cultures of bone. Final ID recs: zosyn x 6 weeks through [facility] ent's existing port. Will be tapering nerve block per primary team today. Care Protocol Items: 1. Immobility due to illness 1. Weight bearing: non-weight bearing, left lower extremity 2. ROM: as tolerated, motion encouraged 2. VTE prophylaxis: sequential compression devices, early ambulation 3. Antibiotics: Zosyn x 6 weeks 4. Special Concerns: Vac off and drain out prior to DC 5. Drains: Drain out prior to dc 6. Dressings: No dressings over the top of the wound vac. 5. Orthopaedic Follow-up: Please call the clinic to make a follow up appointment in [facility] 2 weeks with ORTHO ONCOLOGY, Odalys OconnorJusten - (Sb and Jorge L) Adam Jean MD Pager: [phone] Dawit Gilliam - 4:46 PM PDT General Internal Medicine 1 Progress Note 24 Hour Events: - No acute events overnight - Pt endorsed significant pain yesterday, 05/12, near L BKA site, but pain improved overnigh t with pain medications. Current Symptoms: Upon evaluation this morning, pt is feeling well. Her pain in the left lower extremity arou nd the amputation site has improved. Her appetite is good. Has been having normal BMs and ur inating well. Denies fevers/chills, AMS, CP, SOB, abdominal pain, nausea/vomiting, diarrhea, constipation. Physical Examination: Last 24 hour min/max Temp: 36.4 C (97.5 F) Temp Min: 36.4 C (97.5 F) Max: 36.7 C (98.1 F) Pulse: 70 Pulse Min: 70 Max: 75 Resp: 16 Resp Min: 16 Max: 18 BP: 121/70 BP Min: 121/70 Max: 126/64 SpO2: 100 % SpO2 Min: 97 % Max: 100 % Body mass index is 47.47 kg/m. Gen:Obese woman, awake, alert, pale,in no acute distress HEENT:PERRL, EOMI,no scleral icterus, no lesions in oropharynx, tongue ring without sig ns of surrounding erythema or drainage Neck:No cervical or supraclavicular adenopathy CV:Regular rate and rhythm; S1/S2 present; no murmurs, gallops, or rubs Resp:CTAB, no wheezes, no crackles Abd:Normoactive bowel sounds; obese, soft, non-tender, non-distended; no rebound or guard ing Ext:RLE: no edema, intactdistalpulses, pneumatic compression device in place. LLE: BK A site covered in Javan wrap. Drain tube extending from wrap. Peripheral nerve block present o n left thigh. Left thigh is edematous but nontender. Skin:No breakdown, rashes, or lesions. Laboratory Interpretation: CBC with diff last 72 hours (or 3 results) Recent Labs 03/27/18 0356 03/27/18 1810 03/28/18 0654 03/29/18 0708 WBC 23.11* 27.12* 19.93* 20.97* HB 8.0* 7.4* 9.2* 6.8* HCT 23.9* 22.0* 28.3* 20.9* PLT 95* 127* 106* 155 NEUTROPERC 66.9 -- 65.3 -- LYMPHPERC 12.2* -- 6.1* -- MONOPERC 6.1 -- 6.9 -- BASOPERC 0.9 -- 0.2 -- EOSPERC 0.0* -- 0.0* -- Recent Labs 03/26/18 0656 03/27/18 0356 03/28/18 0654 03/29/18 0708 03/29/18 1212 NA 144 147* -- 148* 147* -- K 3.5 3.3* -- 3.7 4.1 -- CL 108 111* -- 114* 113* -- BICARB 30 29 -- 26 27 -- BUN 15 13 -- 11 14 -- CR 0.65 0.72 -- 0.58* 0.73 -- GLU 107* 103* < > 187* 96 87 CA 7.8* 8.0* -- 7.8* 7.9* -- AST 14 19 -- 17 -- -- ALT 21 23 -- 21 -- -- AP 64 59 -- 59 -- -- TBILI 0.2* 0.2* -- 0.1* -- -- TP 5.7* 5.8* -- 5.2* -- -- ALB 2.5* 2.5* -- 2.2* -- -- ANIONGAP 6 7 -- 8 7 -- ANIONALBCOR 9 10 -- 12* -- -- < > = values in this interval not displayed. Tissue Cultures from Debridement on 03/24/18 (1 from bone): E. coli in 5/5 samples (resistant to amp, Bactrim), Prevotella bivia in 5/5, Enterococcus f aecalis in 2/5 (sensitive to amp and vanc), Coag negative Staph in 1/5. Bone and Tissue Cultures from Repeat Debridement on 03/27/18 (3 from bone): E. Coli in 4/5. Blood Cultures (collected 03/23/18): Final report: No bacteria or yeast isolated at 5 days. Imaging Interpretation: No new imaging. 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 Per ID, plan for treatment with 6 weeks of pip-tazo. # Left BKA siteinfection with osteomyelitis Infection of left BKA in setting of neutropenia initially. On 03/24/18, ortho performed irri gation, debridement, and wound vac placement, with improving erythema afterward. On 03/27/18, second procedure for repeat washout, debridement, and closure. Drain and skin VAC placed, b oth of which will be removed prior to discharge. Tissue cultures, including bone, indicate p olymicrobial infection and surgical pathology is consistent with osteomyelitis, so she is be ing treated for osteomyelitis. - Tissuecultures (1 from bone) taken during debridement on 03/24/18 show polymicrobial inf ection indicating osteomyelitis:E. coli, Prevotella bivia, Enterococcus faecalis. - Bone and tissue cultures during procedure on 03/27/18 growing E. coli. - ID recs: Pip-tazo for 6 weeks from last procedure (03/27/18 - 05/08/18) - While inpatient: Pip-tazo 3.375g IV q6h - OPAT: Pip-tazo 10.125g IV continuously over 24hr - Can receive antibiotics through her previously placed port - OPAT team notified; she can receive antibiotics from home or SNF - Pain: Ropivacaine peripheral nerve block (to be weaned tomorrow), acetaminophen 1,000mg P O q8h, oxycodone 5-15mg PO q3h PRN, hydromorphone 0.2-0.5mg IV q4h PRN # Neutropenic Fever, resolved On presentation to OSH,ANC was31. Neutropenia had resolved on admission here on 03/23/18 .This neutropenia was expected after course of ifosfamide, with neutrophil rodriguez typically occurring on day 8-14 after last dose (her last dose 03/12/18), per hem/onc.Most recent fe loree was 38.7 degrees C on morning of 03/24/18. Her WBC had been increasing over the week as h igh as 27, down to 20.9 today.Most likely source of fever was soft tissue infection of lef t BKA site. - Blood cultures here (drawn 03/23 after antibiotics initiated) show no growth to date on fi nal report. - ID consulted for guidance with antimicrobial therapy for current infection and possible p rophylaxis during future cycles of chemotherapy given recurrent neutropenia after chemothera py. # Synovial Sarcoma, left foot Completed cycle 2 of ifosfamide/epirubicinon 03/12/18 soon after left BKA. Original plan w as for neoadjuvant chemotherapy, but before it could be initiated she developed a significan t left foot infection after biopsy, leading to the BKA. Last dose of Neulasta on 03/17/18. - Pt beingfollowed by onc [facility], appreciate recs. Dr. Sandra Patel is her primary oncologist . Oncology team communicating with Dr. Patel. - Coordinating with onc and ortho regarding plan for timing of cycle 3 of chemotherapy, whi ch will need to be delayed to allow for healing after infection. # Pancytopenia # Nhhot-xo-ibpfwyk anemia Likely hypoproliferationin setting of recentsystemic chemotherapy and acute inflammatio n. Will continue to monitor and transfuse as needed, goal >7. - Hg 6.8 this morning --> pRBC x1 today - She has received a total of 5 units of pRBCs at [facility] and 1 unit previously at OSH. - Repeat CBC tomorrow morning. # Thrombocytopenia - Platelets x1 unit administered on 03/23/18. - Plt 155 most recently. # Hypernatremia, mild, asymptomatic Sodium mildly elevated at 147-148 over last 3 days, likely free water deficit due to repeat procedures and periods of NPO. - 1/2 NS 20 KCl 1 L IV on 03/27/18 - D5W 1 L on 03/28/18 - D5W 1 L on 03/29/18 - Repeat BMP tomorrow # Hypokalemia, improved Improved to 4.1 after repletion. # Hyperglycemia, improved Blood glucose elevated at 187 yesterday, back to 96 today. Have typically been around 100 h ere. No history of DM, not on medications. - Given her risk factors including morbid obesity, warrants outpatient follow-up screening for diabetes # Dispo Planning - Skin VAC and drain should be removed prior to discharge so she can have a regular dressin g - Follow-up in clinic with ortho, regarding timing of next cycle of adjuvant chemotherapy. Routine care: Feeding: regular diet Access: port DVT: sequential compression devices, enoxaparin 40mg subQ q12h Code: Full Dispo: Continue inpatient care Dawit Amaya, MS4 [facility] Pager [phone] signed by Greg Del Rosario MD at 03/29/2018 8:31 PM PDT Associated attestation - Greg Del Rosario MD - 03/29/2018 8:31 PM PDTGeneral Medicine Attending Progress Note Author: Greg Del Rosario MD Hospital Day # 6 PCP: Santo Gooden MD I personally interviewed the patient, performed the romero elements of the physical examinatio n, and personally formulated the assessment and plan with Dr Shell and Dawit Amaya MS I V. Please see progress note for additional details; notable exceptions as written below. ROS as per note, all others negative. 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 Complained of weakness, fatigue and mild light-headedness during exam today. No CP, SOB, p resyncope, fever, hematuria, melena, new pain in thigh/hip or new ecchymoses. HD stable Hct down to 20.9 (28.3). Will transfuse another unit and recheck. Tissue and bone cultures yielded enterococcus, E coli and prevotella consistent with polymi crobial osteomyelitis in the setting of stump infection. Have involved ID for treatment domingo nning -- will convert her to pip/tazo for a planned 6 week course from the date of her lates t debridement and closure (03/27). Drains likely out MON, will begin to taper nerve block tomorrow. Anticipate DC MON vs TUES . Patient/Family Goals & Expectations: Above problems discussed with the patient who understands and is agreeable with our plans. Greg Del Rosario MD [employer] Division of Hospital Medicine Teaching Attending I spent 40 minutes in the care of this patient, >50% engaged in bedside counseling or coord ination of care with ID. Macie Paz MD - 03/29/2018 7:46 AM PDTFormatting of this note might be different fro m the original. INPATIENT PROGRESS NOTE Hospital Day:6 Author; MACIE PAZ MD Interval Hx: pain much better today. no issues with phantom pain today Physical Exam: Last Vitals: BP 124/60 | Pulse 75 | Temp 36.5 C (97.7 F) | RR 16 | Ht 1.727 m (5' 8") | Wt 141.6 kg (312 lb 2.7 oz) | SpO2 97% | BMI 47.47 kg/(m^2) O2 Delivery Device: None (room air) (03/29/18 0100) 24 Hour Vital Min/Max: Systolic (24hrs), Av , Min:107 , Max:146 Diastolic (24hrs), Av, Min:57, Max:84Puls e Av.2 Min: 71 Max: 82 Temp Av.7 C (98 F) Min: 36.5 C (97.7 F) Max: 36.8 C (98.2 F) Resp Av.4 Min: 16 Max: 18 SpO2 Av % Min: 97 % Max: 100 % Intake/Output Summary (Last 24 hours) at 03/29/18 0746 Last data filed at 03/29/18 0410 Gross per 24 hour Intake 3908.67 ml Output 315 ml Net 3593.67 ml dressing c/d sinan with serosang fluid Assessment and Plan: stable. continue abx. leave drain. ok to leave block today and wean tomorrow. Adam Vallejo MD - 0 03/29/2018 5:15 AM PDT Orthopaedic Surgery Progress Note Patient: /Age: MRN: CSN: Date: Admission Date: Hospital Day: Orthopaedic Attending: Tati Cage 1985 32 y.o. [id number] 03/29/2018 03/23/2018 6 Macie Torre MD Diagnosis(es): left below-knee amputation stump infection Orthopaedic Procedure(s) & Date(s): 03/24/18: irrigation and debridement of left below-knee amputation stump, wound vac application 03/27/18: Irrigation, debridement, and revision of left below-knee amputation site, wound measuring 2 0 cm in length Subjective: Had some burning pain anterior lower extremity yesterday but better controlled now Objective: Last Vitals: BP 124/60 | Pulse 75 | Temp 36.5 C (97.7 F) | RR 16 | Ht 1.727 m (5' 8") | Wt 141.6 kg (312 lb 2.7 oz) | SpO2 97% | BMI 47.47 kg/(m^2) 24 Hour Vital Min/Max: Systolic (24hrs), Av , Min:107 , Max:146 Diastolic (24hrs), Av, Min:57, Max:84 Pulse Min: 71 Max: 82 Temp Min: 36.5 C (97.7 F) Max: 36.8 C (98.2 F) Resp Min: 16 Max: 18 SpO2 Min: 97 % Max: 100 % Intake/Output Summary (Last 24 hours) at 03/29/18 0516 Last data filed at 03/29/18 0410 Gross per 24 hour Intake 3908.67 ml Output 965 ml Net 2943.67 ml Exam: General: appropriate, oriented Respiratory: Appropriate, Not auscultated, no increased work of breathing. LEFT LOWER EXTREMITY: Inspection: Residual limb with wound vac holding suction at 125mmhg, flexmaster intact Motor: fires quads, fires hamstrings, fires hip flexors Sensory: grossly intact to light touch proximal to thigh, diminished to light touch near wound edge. Drain: 15mL last 24 hours. Skin vac holding suction Assessment & Plan: Tati Cage is a 32 y.o.F with the diagnoses/procedures listed above. Doing well, no acute postop concerns. She is growing Enterococcus, E. Coli and P. bivia fro m intraop cultures, including cultures of bone. This indicates osteomyelitis. Awaiting final ID recs Care Protocol Items: 1. Immobility due to illness 1. Weight bearing: non-weight bearing, left lower extremity 2. ROM: as tolerated, motion encouraged 2. VTE prophylaxis: sequential compression devices, early ambulation 3. Antibiotics: Cefepime and vancomycin until further notice, or per ID 4. Special Concerns: Vac off and drain out prior to DC 5. Drains: Drain out prior to dc 6. Dressings: No dressings over the top of the wound vac. 5. Orthopaedic Follow-up: Please call the clinic to make a follow up appointment in [facility] 2 weeks with ORTHO ONCOLOGY, Odalys Clarktiste - (Sb and Jorge L) Adam Jean MD Pager: [phone] awit Amaya - 1:33 PM PDT General Internal Medicine 1 Progress Note 24 Hour Events: - Pt recovering well after OR trip yesterday for repeat washout, debridement, and closure o f infected left BKA site. 1cm bone removed to allow for closure.Cultures x5 collected (3 fro m bone, 2 from soft tissue and muscle adjacent to bone). Drain placed prior to closure of fa scia, and skin VAC was placed. - Prior tissue cultures collected during first procedure on 03/24/18, one of which was from bone, growing polymicrobial bacteria indicating osteomyelitis. - ID consulted Current Symptoms: Upon evaluation, pt is resting in bed. She is sleepy and feels well. She has no current marcos n, ranking it 0/10. No pain in the LLE with the peripheral nerve block in place. Denies feve rs/chills, AMS, CP, SOB, abdominal pain, nausea/vomiting, diarrhea, constipation. Physical Examination: Last 24 hour min/max Temp: 36.6 C (97.9 F) Temp Min: 36.6 C (97.9 F) Max: 37.1 C (98.8 F) Pulse: 75 Pulse Min: 66 Max: 88 Resp: 16 Resp Min: 15 Max: 18 BP: 124/57 BP Min: 101/54 Max: 132/66 SpO2: 100 % SpO2 Min: 93 % Max: 100 % Body mass index is 47.47 kg/m. Intake/Output Summary (Last 24 hours) at 03/28/18 1333 Last data filed at 03/28/18 1305 Gross per 24 hour Intake 1272.87 ml Output 1448 ml Net -175.13 ml Gen:Obese woman, awake, alert, pale,in no acute distress HEENT:PERRL, EOMI,non-icteric sclera, no lesions in oropharynx, tongue ring without sig ns of surrounding erythema or drainage Neck:No cervical or supraclavicular adenopathy CV:Regular rate and rhythm; S1/S2 present; no murmurs, gallops, or rubs Resp:CTAB, no wheezes, no crackles Abd:Normoactive bowel sounds; obese, soft, non-tender, non-distended; no rebound or guard ing Ext:Right: no edema, intactdistalpulses, pneumatic compression device in place. Left: BKA site covered in Javan wrap. Drain tube extending from wrap. Skin:No breakdown, rashes, or lesions. Laboratory Interpretation: CBC with diff last 72 hours (or 3 results) Recent Labs 03/25/18 1803 03/27/18 0356 03/27/18 1810 03/28/18 0654 WBC 15.13* < > 23.11* 27.12* 19.93* HB 6.1* < > 8.0* 7.4* 9.2* HCT 18.0* < > 23.9* 22.0* 28.3* PLT 55* < > 95* 127* 106* NEUTROPERC 69.6 -- 66.9 -- 65.3 LYMPHPERC 14.8* -- 12.2* -- 6.1* MONOPERC 4.3 -- 6.1 -- 6.9 BASOPERC 0.0 -- 0.9 -- 0.2 EOSPERC 0.0* -- 0.0* -- 0.0* < > = values in this interval not displayed. Recent Labs 03/26/18 0656 03/27/18 0356 03/27/18 1044 03/27/18 1206 03/28/18 0654 NA 144 147* -- -- -- 148* K 3.5 3.3* -- -- -- 3.7 CL 108 111* -- -- -- 114* BICARB 30 29 -- -- -- 26 BUN 15 13 -- -- -- 11 CR 0.65 0.72 -- -- -- 0.58* GLU 107* 103* < > 106* 125* 187* CA 7.8* 8.0* -- -- -- 7.8* AST 14 19 -- -- -- 17 ALT 21 23 -- -- -- 21 AP 64 59 -- -- -- 59 TBILI 0.2* 0.2* -- -- -- 0.1* TP 5.7* 5.8* -- -- -- 5.2* ALB 2.5* 2.5* -- -- -- 2.2* ANIONGAP 6 7 -- -- -- 8 ANIONALBCOR 9 10 -- -- -- 12* < > = values in this interval not displayed. Tissue Cultures from Debridement on 03/24/18 (1 from bone): E. coli in 5/5 samples (resistant to amp, Bactrim), Prevotella bivia in 5/5, Enterococcus f aecalis in 2/5 (sensitive to amp and vanc), Coag negative Staph in 1/5. Bone and Tissue Cultures from Repeat Debridement on 03/27/18 (3 from bone): E. Coli in 4/5. Pathology Report from 03/24/18 left [id number] amputation site debridement: "A. Soft tissue, left below knee amputation site, debridement: - Fibroadipose tissue with fat necrosis and acute and chronic inflammation B. Leg, distal tibia, excision: - Viable bone with reactive changes - Marrow with mildly increased neutrophils, see note Note (part B): The marrow shows patchy mildly increased neutrophils and the bone shows r eactive changes. The findings may be suggestive of acute osteomyelitis." Imaging Interpretation: No new imaging. 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 Neutropenic fever has resolved on vancomycin and cefepime. Bone and deep tissue cultures from two procedures for debridement, washout, and wound closure indicate polymicrobial oste omyelitis. Waiting for further culture data to guide antimicrobial therapy, anticipating dis charge early next week. # Neutropenic Fever, resolved On presentation to OSH,ANC was31. Neutropenia had resolved on admission here on 03/23/18 .This neutropenia was expected after course of ifosfamide, with neutrophil rodriguez typically occurring on day 8-14 after last dose (her last dose 03/12/18), per hem/onc.Most recent fe loree was 38.7 degrees C on morning of 03/24/18. Her WBC had been increasing over the week as h igh as 27, down to 19.9 today.Most likely source is soft tissue infection of left BKA site . - Blood cultures here (drawn 03/23 after antibiotics initiated) show no growth to date. - Continue Vancomycin1,250mg IV q8hand Cefepime 2g IV q8h for polymicrobial BKA site in fection with osteomyelitis. - ID has been consulted for guidance with antimicrobial therapy for current infection and p ossible prophylaxis during future cycles of chemotherapy given recurrent neutropenia after c hemotherapy. # Left BKA siteinfection with osteomyelitis Infection of left BKA in setting of neutropenia. On 03/24/18, ortho (Dr. Basurto) took her to OR for irrigation, debridement, and wound vac placement, with improving erythema afterward. On 03/27/18, second procedure for repeat washout, debridement, and closure. Cultures x5 colle cted (3 from bone, 2 from soft tissue and muscle adjacent to bone). Drain placed prior to cl osure of fascia and skin VAC was placed, both of which will be removed prior to discharge. P ain well controlled with peripheral nerve block. - Tissuecultures (1 from bone) taken during debridement on 03/24/18 show polymicrobial inf ection indicating osteomyelitis: E. coli, Prevotella bivia, Enterococcus faecalis, and coag- negative Staph. - Bone and tissue cultures during procedure on 03/27/18 initially growing E. coli. 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 Last dose of Neulasta on 03/17/18. - Pt beingfollowed by onc [facility], appreciate recs. Dr. Sandra Patel is her primary oncologist . Oncology team will communicate with Dr. Patel. - Coordinating with onc and ortho regarding plan for timing of cycle 3 of chemotherapy, whi ch will need to be delayed to allow for healing after infection. # Pancytopenia # Dzcty-pn-ztwyvpc anemia Likely hypoproliferationin setting of recentsystemic chemotherapy and acute inflammatio n. Will continue to monitor and transfuse as needed, goal >7. - Hg 9.2 this morning. - She has received at total of 4 units of pRBCs at [facility] and 1 unit previously at OSH. - Repeat CBC tomorrow morning. # Thrombocytopenia - Platelets x1 unit administered on 03/23/18. - Plt 106 most recently. # Hypernatremia, mild, asymptomatic Sodium of 147 yesterday, 148 today, likely free water deficit due to repeat procedures and periods of NPO. - Resuscitation with 1/2 NS 20 KCl 1 L IV yesterday - Resuscitation with D5W 1 L today # Hypokalemia Improved from 3.3 to 3.7 today after repletion. - Additional 20 mEq KCl today # Hyperglycemia Blood glucose elevated at 187. Have typically been around 100 here. No history of DM, not o n medications. - Given elevated glucose here and risk factors including morbid obesity, warrants outpatien t follow-up screening for diabetes # Dispo Planning - Skin VAC and drain should be removed prior to discharge so she can have a regular dressin g - Follow-up in clinic with ortho, regarding timing of next cycle of adjuvant chemotherapy. Routine care: Feeding: regular diet Access: port, PIV DVT: sequential compression devices, enoxaparin 40mg subQ qHS starting tonight Code: Full Dispo: Continue inpatient care Dawit Amaya, MS4 [facility] [place] Pager [phone] signed by Greg Del Rosario MD at 03/28/2018 8:48 PM PDT Associated attestation - Greg Del Rosario MD - 03/28/2018 8:48 PM PDTGeneral Medicine Attending Progress Note Author: Greg Del Rosario MD Hospital Day # 5 PCP: Santo Gooden MD I personally interviewed the patient, performed the romero elements of the physical examinatio n, and personally formulated the assessment and plan with Dr Cornejo and Dawit Amaya. Plea se see progress note for additional details; notable exceptions as written below. ROS as per note, all others negative. 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 Pain well-controlled by nerve block. Drain and vac in place. Cultures from the initial de bridement - both bone and tissue - are growing enterococcus (amp sensitive), E coli (amp, au gmentin resistant), and prevotella. Remains on vanc and cefepime. Will make home antibotic plan with ID, when culture results finalized. Remains hypernatremic. PO intake inadequate . Will infuse d5w today. Patient/Family Goals & Expectations: Above problems discussed with the patient who understands and is agreeable with our plans. Greg Del Rosario MD [employer] [facility] Medicine Teaching Attending I spent 35 minutes in the care of this patient, >50% engaged in bedside counseling or coord ination of care with orthopedics. Junaid Burrell MD - 03/28/2018 12:58 PM PDTFormatting of this note might be different fr om the original. Orthopaedic Surgery Progress Note Patient: /Age: MRN: CSN: Date: Admission Date: Hospital Day: Orthopaedic Attending: Tati Cage 1985 32 y.o. [id number] 03/28/2018 03/23/2018 5 Macie Torre MD Diagnosis(es): left below-knee amputation stump infection Orthopaedic Procedure(s) & Date(s): 03/24/18: irrigation and debridement of left below-knee amputation stump, wound vac application 03/27/18: Irrigation, debridement, and revision of left below-knee amputation site, wound measuring 2 0 cm in length Assessment & Plan: Shaynetoby Rhea Cage is a 32 y.o.F with the diagnoses/procedures listed above. Doing well, no acute postop concerns. She is growing E. Coli and P. bivia from intraop c ultures, including cultures of bone. This indicates osteomyelitis. ID should be consulted fo r treatmed of such. Care Protocol Items: 1. Immobility due to illness 1. Weight bearing: non-weight bearing, left lower extremity 2. ROM: as tolerated, motion encouraged 2. VTE prophylaxis: sequential compression devices, early ambulation 3. Antibiotics: Cefepime and vancomycin until further notice, or per ID 4. Special Concerns: Vac off and drain out prior to DC 5. Drains: Wound vac in place. Will take down in OR or POD 5 6. Dressings: No dressings over the top of the wound vac. 5. Orthopaedic Follow-up: Please call the clinic to make a follow up appointment in [facility] 2 weeks with ORTHO ONCOLOGY, Odalys Tobin - (Adela) Subjective: Feeling well today, no issues or concerns Overnight Events: NAEO Objective: Exam: General: appropriate, oriented Respiratory: Appropriate, Not auscultated, no increased work of breathing. LEFT LOWER EXTREMITY: Inspection: Residual limb with wound vac holding suction at 125mmhg, flexmaster intact Motor: fires quads, fires hamstrings, fires hip flexors Sensory: grossly intact to light touch proximal to thigh, diminished to light touch near wound edge. Junaid Burrell MD Orthopaedic Surgery, [id number] [id number] 03/26/2018 Madiha Gonzales FNP - 03/28/2018 12:15 PM PDT INPATIENT ADULT PAIN SERVICE PERIPHERAL NERVE BLOCK INITIAL VISIT NOTE Date of Service: 03/28/2018 Author: Madiha Beckford DNP Requesting Provider: Service: Orthopedic Surgery Main Complaint: acute postoperative pain Block day # 1. Tati Cage is POD# 1. Status post: Irrigation, debridement, and revision of left be low-knee amputation site, wound measuring 20 cm in length. Type of peripheral nerve block: left lower extremity Sciatic History of Present Illness: Ms. Cage complains of no pain right now, previously in the lef t lower extremity pain. Ms. Cage's pain score at rest is 0/10. With activity, Ms. Yee pa in score is "increases a little bit"/10. Specific activities that exacerbate Tati willard pain include moving in bed, getting to a chair and most activities. Ms. Yee pain is improved by PNB. Ms. Yee is satisfied with current level of pain. Associated symptoms include: none Other complaints: none History of chronic or preoperative pain: yes: location: left lower extremity. Prior to hospitalization: Oxycodone 5-15 mg every three hours as needed, Pregabalin 225 mg BID Current activity level: In bed all the time Able to work with PT:Not yet Diet: Full liquids/Reg Diet/Tube Feeds Current Medications: Current Facility-Administered Medications Medication Dose Route Frequency Last Rate acetaminophen (TYLENOL) tablet 1,000 mg 1,000 mg oral Q8H ceFEPIme (MAXIPIME) injection 2 g 2 g intravenous Q8H citalopram (CELEXA) tablet 40 mg 40 mg oral HS dextrose 5 % IV 1,000 mL intravenous ONCE enoxaparin (LOVENOX) injection 40 mg 40 mg subcutaneous QPM famotidine (PEPCID) tablet 20 mg 20 mg oral BID loratadine (CLARITIN) tablet 10 mg 10 mg oral DAILY nystatin (MYCOSTATIN) powder topical BID OLANZapine (ZYPREXA) tablet 5 mg 5 mg oral HS polyethylene glycol (MIRALAX) packet 17 g 17 g oral DAILY potassium chloride SR (K-DUR) tablet 20 mEq 20 mEq oral BID pregabalin (LYRICA) capsule 225 mg 225 mg oral BID senna-docusate (SENOKOT S) 8.6-50 mg 2 tablet 2 tablet oral BID vancomycin (VANCOCIN) IV 1,250 mg 1,250 mg intravenous Q8H Stopped (03/28/18 0953) Current Facility-Administered Medications Medication Dose Route Frequency Last Rate bisacodyl (DULCOLAX) suppository 10 mg 10 mg rectal DAILY PRN diphenhydrAMINE (BENADRYL) capsule 25 mg 25 mg oral Q6H PRN pihvbqkotrHYUYF-bitivaxkp-DESGTY (SPECIAL MOUTHWASH) suspension (compound) 5 mL 5 mL o ral QID PRN heparin 10 unit/mL IV flush syringe 50 Units 50 Units intravenous PRN heparin 100 unit/mL IV flush 500 Units 500 Units intravenous PRN HYDROmorphone (DILAUDID) injection 0.2-0.5 mg 0.2-0.5 mg intravenous Q4H PRN LORazepam (ATIVAN) tablet 0.5 mg 0.5 mg oral HS PRN melatonin tablet 3 mg 3 mg oral HS PRN ondansetron (ZOFRAN) tablet 8 mg 8 mg oral Q12H PRN oxyCODONE (immediate release) (ROXICODONE) tablet 5-15 mg 5-15 mg oral Q3H PRN polyethylene glycol (MIRALAX) packet 34 g 34 g oral TID PRN Current Facility-Administered Medications Medication Dose Route Frequency Last Rate ropivacaine (PF) 0.2 % in NaCl 0.9 % (NS) peripheral nerve block (CADD PUMP) injectio n CONTINUOUS 2 mg/mL (03/27/18 1230) Pump Infusion: Ropivacaine 0.2% at 8 mL/hour The above medication list includes the following analgesics: Opioids: Oxycodone 5-15 mg every 3 hours as needed, HM IV as needed Other analgesics: Pregabalin 225 mg BID, APAP 1000 mg every 8 hours Other psychoactive medications: Zyprexa 5 mg qhs, Celexa 40 mg daily, Lorazepam 0.5 mg at b edtime Anticoagulants: No Lab Results Component Value Date INRPT 1.12 03/23/2018 PLT 106 (L) 03/28/2018 APTT 33.1 03/23/2018 Allergies: Allergies Allergen Reactions Chlorhexidine Rash Demerol [Meperidine Hcl] Pruritus Morphine Pruritus Review of systems: General: Patient complains of negative. Eyes: Patient complains of negative. Ears, Nose, Throat: Patient complains of negative. Skin: Patient complains of negative. Respiratory: negative Musculoskeletal: left bka Past Medical History: Past Medical History: Diagnosis Date Endometriosis History of ITP Synovial sarcoma (HCC) Past Surgical History: Past Surgical History Procedure Laterality Date Foot surgery Right 1997, 2001 Past Family History: Family History Problem Relation Cancer Maternal Grandmother pancreatic None Mother None Father Social History: Social History Social History Marital status: Single Spouse name: N/A Number of children: N/A Years of education: N/A Occupational History Not on file. 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 No kids. Lives with her mother Kika. Labs: Lab Results Component Value Date WBC 19.93 (H) 03/28/2018 HB 9.2 (L) 03/28/2018 HCT 28.3 (L) 03/28/2018 PLT 106 (L) 03/28/2018 MCV 92.8 03/28/2018 RDW 48.5 (H) 03/28/2018 Lab Results Component Value Date NA 148 (H) 03/28/2018 K 3.7 03/28/2018 CL 114 (H) 03/28/2018 BICARB 26 03/28/2018 BUN 11 03/28/2018 CR 0.58 (L) 03/28/2018 GLU 187 (H) 03/28/2018 CA 7.8 (L) 03/28/2018 AST 17 03/28/2018 ALT 21 03/28/2018 AP 59 03/28/2018 TBILI 0.1 (L) 03/28/2018 TP 5.2 (L) 03/28/2018 ALB 2.2 (L) 03/28/2018 Lab Results Component Value Date APTT 33.1 03/23/2018 Radiology: NA Physical Exam: BP 124/57 | Pulse 75 | Temp 36.6 C (97.9 F) | RR 16 | Ht 1.727 m (5' 8") | Wt 141.6 kg (312 lb 2.7 oz) | SpO2 100% | BMI 47.47 kg/(m^2) 24 hour Vitals min/max : Systolic (24hrs), Av , Min:101 , Max:134 Diastolic (24hrs), Av, Min:54, Max:84 Pulse Min: 66 Max: 88 Temp Min: 36.6 C (97.9 F) Max: 37.1 C (98.8 F) Resp Min: 14 Max: 18 SpO2 Min: 93 % Max: 100 % General Appearance and Neurological Examination: Mental Status:Alert Orientation: Oriented Sensory: Decreased in area of block Motor: Decreased in area of block Nerve block site: Depth at skin: covered by dressing. Clinically significant migration since placement: NO Dressing: Intact Exit Site: covered by dressing Assessment: Tati Cage is a 32 y.o. female with a history of synovial sarcoma and infected left below-knee amputation site who is s/p irrigation, debridement, and revision of left below-kn ee amputation site, wound measuring 20 cm in length. Ms. Cage rates her pain relief as excel lent. My personal assessment is concordant with this evaluation. Of note, catheter was connected upon assessment, no leakage noted or s/s of site infections . PNB appears to infusing appropriately as evidenced by Keera's pain relief. PNB troubleshooting was needed? NO Diagnosis: 1. Acute post operative pain 2. Synovial sarcoma Recommendations: Continue peripheral nerve block unchanged, titrate per protocol as needed Peripheral nerve block in place: If Hood is in place, it may be removed if deemed appropri ate by primary care team. Madiha Rebollar DNP, [employer]AREHOUSE RECEIVER-[facility] [address] [place] [address] Lynda Ravi MD - 03/28/2018 8:06 AM PDTPt doing ok. Block seems to be working ok. PE: Ht 1.727 m (5' 8"), Wt 141.6 kg (312 lb 2.7 oz), BP 110/54, Pulse 86, Temperature 36.6 C (97.9 F), RR 16, SpO2 98%, BMI 47.47 kg/(m^2). Facility age limit for growth percentiles is 18 years. dsg c/d/I Drain 45 cx: most recent ngtd Prior: e. Coli, enterococcus, prevotella from all cultures A/P: s/p repeat I&D L BKA site, now closed over a drain -discussed cultures w prior surgeon. Confirmed that one of the cultures came directly from bone. 3 of my cultures also came from bone. -IV abx -discuss w ID re: length of treatment -likely dc Saturday when abx plan sorted out -block per block team -vac off and drain out prior to dischargeElectronically signed by Lynda Basurto MD at 8:08 AM Ricardo Armstrong MD,PhD - 03/27/2018 6:21 PM PDTBrief APS Note Paged by nurse around 17:50 stating that infusion was loose at the blue cathter cap, had so aked patient's gown after coming up from PACU at 15:00. Hub and line were under clean tegede rm for duration of leak. Given likely one-direction flow of fluid, unlikely to be contaminat ed under tegederm. Hub connection tightened and infusion allowed to continue running. Note s ent to nursing and primary team that if site shows any sign of infection (redness, increased pain, swelling), APS should be paged for possible catheter removal. If disconnection were to occur again, patient said catheter placement was unpleasant experi ence and would like to transition to orals, has a healthy appetite and is eating well. Ricardo Morales MD/PhD Anesthesiology CA-2 APS pager [phone] signed by Arnold Street MD at 03/28/2018 7:02 AM CandidaDawit riley Sho - 03/27/2018 6:39 AM PDT General Internal Medicine 1 Progress Note 24 Hour Events: - Lorazepam 0.5mg PRN, her home dose, administered last night for sleep - Pt reported itchiness last night after GONZALO bath. Later realized that she has a chlorhexi dine allergy. Itchiness resolved. This was discussed with patient and she is not concerned. - Pt taken to OR by ortho today for repeat washout, debridement, and closure of infected le ft BKA site, with EBL 200mL. About 1cm bone removed to allow for closure. Cultures x5 collec abhilash (3 from bone, 2 from soft tissue and muscle adjacent to bone). Drain placed prior to kaleb sure of fascia, and skin VAC was placed. - Per APS, peripheral nerve block used for pain management of L BKA site had leak of infusi on. APS tightened connection and infusion allowed to continue. If site shows any sign of inf ection, page APS. Current Symptoms: Upon evaluation this afternoon, pt is eating a popsicle. She recently returned from the OR. She feels well overall though reports pain from her L BKA site, which had recent operation. She is hungry and requesting food after being NPO since midnight. Physical Examination: Last 24 hour min/max Temp: 36.8 C (98.2 F) Temp Min: 36.4 C (97.5 F) Max: 36.8 C (98.2 F) Pulse: 75 Pulse Min: 71 Max: 88 Resp: 16 Resp Min: 16 Max: 18 BP: 134/70 BP Min: 90/40 Max: 135/63 SpO2: 99 % SpO2 Min: 97 % Max: 100 % Body mass index is 47.47 kg/m. Intake/Output Summary (Last 24 hours) at 03/27/18 0641 Last data filed at 03/27/18 0436 Gross per 24 hour Intake 1835.5 ml Output 710 ml Net 1125.5 ml Gen:Obese woman, awake, alert, pale,in no acute distress HEENT:PERRL, EOMI,non-icteric sclera, no lesions in oropharynx, tongue ring without sig ns of surrounding erythema or drainage Neck:No cervical or supraclavicular adenopathy CV:Regular rate and rhythm; S1/S2 present; no murmurs, gallops, or rubs Resp:CTAB, no wheezes, no crackles Abd:Normoactive bowel sounds; obese, soft, non-tender, non-distended; no rebound or guard ing Ext:Right: no edema, intactdistalpulses, pneumatic compression device in place. Left: BKA site covered in Javan wrap. Drain tube extending from wrap. Skin:No breakdown, rashes, or lesions. Laboratory Interpretation: CBC with diff last 72 hours (or 3 results) Recent Labs 03/25/18 0623 03/25/18 1803 03/26/18 0657 03/27/18 0356 03/27/18 1810 WBC 14.42* 15.13* < > 14.47* 23.11* 27.12* HB 6.1* 6.1* < > 9.2* 8.0* 7.4* HCT 17.8* 18.0* < > 27.3* 23.9* 22.0* PLT 69* 55* < > 56* 95* 127* NEUTROPERC 56.9 69.6 -- -- 66.9 -- LYMPHPERC 8.5* 14.8* -- -- 12.2* -- MONOPERC 17.7* 4.3 -- -- 6.1 -- BASOPERC 0.9 0.0 -- -- 0.9 -- EOSPERC 0.1* 0.0* -- -- 0.0* -- < > = values in this interval not displayed. Recent Labs 03/25/18 0623 03/26/18 0656 03/27/18 0356 03/27/18 0822 03/27/18 1206 NA 138 144 147* -- -- K 3.5 3.5 3.3* -- -- CL 103 108 111* -- -- BICARB 31 30 29 -- -- BUN 12 15 13 -- -- CR 0.65 0.65 0.72 -- -- GLU 156* 107* 103* 88 125* CA 7.9* 7.8* 8.0* -- -- AST 16 14 19 -- -- ALT 24 21 23 -- -- AP 45 64 59 -- -- TBILI 0.3 0.2* 0.2* -- -- TP 6.0* 5.7* 5.8* -- -- ALB 2.6* 2.5* 2.5* -- -- ANIONGAP 4 6 7 -- -- ANIONALBCOR 7 9 10 -- -- Tissue Cultures from Debridement on 03/24/18: E. coli in 5/5 samples, Enterococcus faecalis in 2/5, Prevotella bivia in 5/5, Coag negativ e Staph in 1/5. Bone and Tissue Cultures from Repeat Debridement on 03/27/18: Pending Imaging Interpretation: No new imaging. 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 The neutropenia and fever have resolved on vancomycin and cefepime, and she returned to OR today for repeat debridement, washout, and closure, with bone and tissue cultures collect ed. # Neutropenic Fever, resolved On presentation to OSH,ANC was31. Neutropenia has resolved since admission here on 03/23. This neutropenia was expected after course of ifosfamide, with neutrophil rodriguez typical ly occurring on day 8-14 after last dose (her last dose 03/12/18), per hem/onc.Most recent fever was 38.7 degrees C on morning of 03/24/18. Her WBC has been increasing over the week, m ost recently 27.Most likely source is soft tissue infection of left BKA site. - Blood cultures here (drawn 03/23 after antibiotics initiated) show no growth to date. - Continue Vancomycin1,250mg IV q8hand Cefepime 2g IV q8h for polymicrobial BKA site in fection. - ID has been consulted for guidance with antimicrobial therapy for current infection and p ossible prophylaxis during future cycles of chemotherapy given recurrent neutropenia after c hemotherapy. # Pancytopenia # Oecnc-xm-fkpryzl anemia Likely hypoproliferation in setting of recentsystemic chemotherapy and acute inflammation . Will continue to monitor and transfuse as needed, goal >7. - Hg 8.0 this morning prior to procedure today, 7.4 after. EBL of 200 mL during procedure. - She has received at total of 4 units of pRBCs at [facility] and 1 unit previously at OSH. - Repeat CBC tomorrow morning. # Thrombocytopenia - Platelets x1 unit administered on 03/23/18. - Plt 127 most recently. # History of BKA, left # Amputation siteinfection Infection of left BKA in setting of neutropenia. On 03/24/18, ortho (Dr. Basurto) took her to OR for irrigation, debridement, and wound vac placement, with improving erythema afterward. On 03/27/18, second procedure for repeat washout, debridement, and closure. Cultures x5 colle cted (3 from bone, 2 from soft tissue and muscle adjacent to bone). Drain placed prior to cl osure of fascia, and skin VAC was placed. - Tissue cultures taken during debridement on 03/24/18 show polymicrobial infection: E. coli , Prevotella bivia, Enterococcus faecalis, and coag-negative Staph. - Bone and tissue cultures during procedure on 03/27/18 are pending. - Pain: Peripheral nerve block, acetaminophen 1,000mg PO q8h, oxycodone 5-15mg PO q3h PRN, hydromorphone 0.2-0.5mg IV q4h PRN # Synovial Sarcoma Completed cycle 2 of ifosfamide/epirubicinon 7/11/18. Last dose of Neulasta on 03/17/18. - Pt beingfollowed by onc [place], appreciate recs. Dr. Sandra Patel is her primary oncologist . Oncology team will communicate with Dr. Patel. - Coordinating with onc and ortho regarding plan for timing of cycle 3 of chemotherapy, whi ch will need to be delayed to allow for healing after infection. # Hypernatremia Mild at 147 today, likely free water deficit during repeat procedures and periods of NPO. - Repletion with 1/2 NS 20 KCl 1 L IV # Hypokalemia 3.3 today. - Repletion with 1/2 NS 20 KCl 1 L IV # Dispo Planning - Skin VAC and drain should be removed prior to discharge so she can have a regular dressin g - Follow-up in clinic with ortho, regarding timing of next cycle of adjuvant chemotherapy. Routine care: Feeding: regular diet Access: port, PIV DVT: sequential compression devices, hold enoxaparin given thrombocytopenia and unstable an emia. Code: Full Dispo: Continue inpatient care Dawit Amaya, MS4 [facility] Pager [phone] signed by Greg Del Rosario MD at 03/28/2018 11:52 AM PDT Associated attestation - Greg Del Rosario MD - 03/28/2018 11:52 AM PDTGeneral Medicine Attending Progress Note Author: Greg Del Rosario MD Hospital Day # 5 PCP: Santo Gooden MD I personally interviewed the patient, performed the romero elements of the physical examinatio n, and personally formulated the assessment and plan with Dr Cornjeo and Dawit Amaya MS IV . Please see progress note for additional details; notable exceptions as written below. R OS as per GM note, all others negative. 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 Underwent repeat washout/debridement and revision of L BKA, with acquisition of 5 tissue an d bone cultures. Anesthesia placed a peripheral nerve block for pain management. Initial t issue cultures growing enterococcus (amp sensitive), E coli (amp, augmentin resistant), and prevotella. Will discuss antibiotic plan with ID. Mildly hypernatremic, in the setting of poor PO intake amidst multiple surgeries. Will provide IVF as necessary if PO inadequate. Patient/Family Goals & Expectations: Above problems discussed with the patient who understands and is agreeable with our plans. Greg Del Rosario MD [employer] Division of Hospital Medicine Teaching Attending I spent 35 minutes in the care of this patient, >50% engaged in bedside counseling or coord ination of care with orthopedics, anesthesia pain service. Lynda Basurto MD - 03/26/2018 5:32 PM PDTPt was not in room Cultures show e coli and enterococcus A/P: s/p I&D L BKA site -for repeat I&D tomorrow. Depending on how wound looks, possible closure. -NPO p MN -cont IV abx awit Amaya - 03/26/2018 4:45 PM PDTFormatting of this note might be different from the orig inal. General Internal Medicine 1 Progress Note 24 Hour Events: - Home-dose Lorazepam 0.5mg given last night, which helped her sleep - Hg yesterday evening was 6.1, given pRBC x1. Repeat Hg overnight was was 6.6, so addition al pRBC x1 given. Four units of pRBCs have been given at [facility], with 1 unit given at OSH. Current Symptoms: - Upon evaluation, pt is lying in bed. She says she feels better today after getting an imp roved night of sleep last night. She still has dull, aching pain around her amputation site on LLE. Denies increase in swelling, redness, or drainage. Denies abdominal, flank, or back pain or bruising. Denies pain anywhere aside from LLE. Denies fevers/chills, LIU, CP, SOB, ab dominal pain, nausea, vomiting, diarrhea, dysuria. Physical Examination: Last 24 hour min/max Temp: 36.7 C (98.1 F) Temp Min: 36.4 C (97.5 F) Max: 36.7 C (98.1 F) Pulse: 80 Pulse Min: 65 Max: 86 Resp: 18 Resp Min: 16 Max: 18 BP: 109/49 BP Min: 90/40 Max: 118/56 SpO2: 100 % SpO2 Min: 97 % Max: 100 % Body mass index is 47.47 kg/m. Intake/Output Summary (Last 24 hours) at 03/26/18 1652 Last data filed at 03/26/18 1300 Gross per 24 hour Intake 3894.5 ml Output 1560 ml Net 2334.5 ml Gen:Obese woman, awake, alert, pale,in no acute distress HEENT:PERRL, EOMI,non-icteric sclera, no lesions in oropharynx, tongue ring without sig ns of surrounding erythema or drainage Neck:No cervical or supraclavicular adenopathy CV:Regular rate and rhythm; S1/S2 present; no murmurs, gallops, or rubs Resp:CTAB, no wheezes, no crackles Abd:Normoactive bowel sounds; obese, soft, non-tender, non-distended; no rebound or guard ing Ext:Right: no edema, intactdistal pulses, pneumatic compression device in place. Left: no spreading erythema around incision, no significant edema, no purulent discharge, no fluct uance. Wound vac in place, draining appropriately. Skin:No breakdown, rashes, or lesions. Laboratory Interpretation: CBC with diff last 72 hours (or 3 results) Recent Labs 03/25/18 0223 03/25/18 0623 03/25/18 1803 03/25/18 2301 03/26/18 0657 WBC 10.46 14.42* 15.13* 14.95* 14.47* HB 5.3* 6.1* 6.1* 6.6* 9.2* HCT 14.9* 17.8* 18.0* 19.2* 27.3* PLT 69* 69* 55* 54* 56* NEUTROPERC 74.7* 56.9 69.6 -- -- LYMPHPERC 12.1* 8.5* 14.8* -- -- MONOPERC 10.8* 17.7* 4.3 -- -- BASOPERC 0.0 0.9 0.0 -- -- EOSPERC 0.0* 0.1* 0.0* -- -- LDH: 273 Reticulocyte count: 0.5% Reticulocyte index: 0.09 Recent Labs 03/24/18 0902 03/24/18 1306 03/25/18 0623 03/26/18 0656 NA 139 -- 138 144 K 2.7* -- 3.5 3.5 CL 110* -- 103 108 BICARB 25 -- 31 30 BUN 9 -- 12 15 CR 0.62 -- 0.65 0.65 GLU 99 125* 156* 107* CA 7.3* -- 7.9* 7.8* AST 10 -- 16 14 ALT 16 -- 24 21 AP 39* -- 45 64 TBILI 0.4 -- 0.3 0.2* TP 5.5* -- 6.0* 5.7* ALB 2.4* -- 2.6* 2.5* ANIONGAP 4 -- 4 6 ANIONALBCOR 8 -- 7 9 Tissue Cultures from Debridement on 03/24/18: E. coli in 5/5 samples, Enterococcus faecalis in 2/5. Sensitivities show resistance to ampi cillin and trimethoprim/sulfa, intermediate for amox/clav, and sensitive to cefazolin, cipro , gentamicin, pip/tazo, and tobramycin. 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 The neutropenia and fever have resolved on vancomycin and cefepime, though she has had per sistent anemia and thrombocytopenia requiring transfusions. # Neutropenic Fever, resolved On presentation to OSH, ANC was 31. ANC 10,000+ most recently. This neutropenia was expecte d after course of ifosfamide, with neutrophil rodriguez typically occurring on day 8-[address] dose (her last dose 03/12/18), per hem/onc. Most recent fever was 38.7 degrees C on mornin g of 03/24/18. Her WBC has been increasing 2 -> 4 -> 10 -> 14.Most likely source is soft ti ssue infection of left BKA site. CXR at OSH without evidence of consolidation. - Blood cultures here (drawn 03/23 after antibiotics initiated) show no growth to date. Tiss ue cultures taken during debridement on 03/24/18 have grown E. coli and Enterococcus faecalis . - Continue Vancomycin1,250mg IV q8hand Cefepime 2g IV q8h for Enterococcus and E. coli, particularly given that she is returning to the OR. # Pancytopenia # Sqpru-sm-ygyvnwl anemia Likely hypoproliferation in setting of recentsystemic chemotherapy and acute inflammation . No evidence of acute blood loss or hemolysis. Drainage from wound vac has been minimal. Wi ll continue to monitor and transfuse as needed, goal >7. - Hg improved to 9.2 today after an additional unit of pRBCs this morning. She has received at total of 4 units of pRBCs at [facility] and 1 unit previously at OSH. - Repeat CBC tomorrow morning. # Thrombocytopenia - Platelets x1 unit administered on 03/23/18. - Plt 56 this morning. Goal Plt >50 before procedure tomorrow. # History of BKA, left # Amputation site infection Infection of left BKA in setting of neutropenia. On 03/24/18, ortho (Dr. Basurto) took her to OR for irrigation, debridement, and wound vac placement, with improving erythema afterward. Wound vac drainage has been minimal. There was no sinus tract to bone and no evidence of ost eomyelitis on X-ray. - Wound cultures taken during debridement initially growing E. coli and Enterococcus faecal is, so will continue antibiotic treatment per above. - Per ortho, plan for repeat debridement and likely closure of wound on 03/27/18, which may require shortening of bone. - She is at high-risk for DVT but also thrombocytopenic and anemic. One dose of enoxaparin 40 mg given last night, will hold tonight. - Pain: acetaminophen 1,000mg PO q8h, oxycodone 5-15mg PO q4h PRN, hydromorphone 0.2-0.5mg IV q4h PRN # Synovial Sarcoma Completed cycle 2 of ifosfamide/epirubicin on 03/12/18. Last dose of Neulasta on 03/17/18. - Pt being followed by onc [facility], appreciate recs. Dr. Sandra Patel is her primary oncologist. Oncology team will communicate with Dr. Patel. - Per onc, no indication for Filgrastim now given hemodynamic stability - Coordinating with onc and ortho regarding plan for timing of cycle 3 of chemotherapy, whi ch will need to be delayed to allow for healing after infection. Routine care: Feeding: regular diet, NPO at midnight Access: port, PIV DVT: sequential compression devices, hold enoxaparin given thrombocytopenia and unstable an emia. Code: Full Dispo: Continue inpatient care Dawit Amaya, MS4 [facility] Pager [phone] signed by Greg Del Rosario MD at 03/26/2018 8:45 PM PDT Associated attestation - Greg Del Rosario MD - 03/26/2018 8:45 PM PDTGeneral Medicine Attending Progress Note Author: Greg Del Rosario MD Hospital Day # 3 PCP: Santo Gooden MD I personally interviewed the patient, performed the romero elements of the physical examinatio n, and personally formulated the assessment and plan with Dr Clemente Amaya MS IV. Pl ease see GM progress note for additional details; notable exceptions as written below. ROS a s per GM note, all others negative. 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 Preliminary results from tissue culture demonstrate E coli and rare enterococcus, sensitivi ties pending. Will continue cefepime and vanc for now, with plans to narrow based on final results and cultures from follow-up washout -- possible that ID input may be needed for christian tment duration and prophylactic choice during future chemotherapy. Prophylaxis is likely in dicated until stump fully heals (which could be a few months), but thereafter may not be nee ded since the primary risk factor is removed. Hct stable today after transfusion of two mor e units prbcs yesterday. 27.3 today, thus prior measurement may have occurred before fully equilibrated. No evidence of active bleeding at this time, but monitoring closely for exter nal or internal losses. Ortho will take her to the OR tomorrow for further washout and clos ure. Patient/Family Goals & Expectations: Above problems discussed with the patient who understands and is agreeable with our plans. Greg Del Rosario MD [employer] Division of Hospital Medicine Teaching Attending I spent 35 minutes in the care of this patient, >50% engaged in bedside counseling or coord ination of care with orthopedics. Junaid Burrell MD - 03/26/2018 8:29 AM PDTFormatting of this note might be different fr om the original. Orthopaedic Surgery Progress Note Patient: /Age: MRN: CSN: Date: Admission Date: Hospital Day: Orthopaedic Attending: Tati Cage 1985 32 y.o. [id number] 03/26/2018 03/23/2018 3 Macie Torre MD Diagnosis(es): left below-knee amputation stump infection Orthopaedic Procedure(s) & Date(s): irrigation and debridement of left below-knee amputati on stump, wound vac application Assessment & Plan: Tati Cage is a 32 y.o.F with the diagnoses/procedures listed above. No acute postop concerns, plan to go back to OR for washout and possible closur e Care Protocol Items: 1. Immobility due to illness 1. Weight bearing: non-weight bearing, left lower extremity 2. ROM: as tolerated, motion encouraged 2. VTE prophylaxis: sequential compression devices, early ambulation 3. Antibiotics: vancomycin, until further notice 4. Special Concerns: drain out when output < 30cc per shift, or per staff, return to OR lat er this week for repeat wash out vs revision BKA. 5. Drains: Wound vac in place. Will take down in OR or POD 5 6. Dressings: No dressings over the top of the wound vac. 5. Orthopaedic Follow-up: Please call the clinic to [facility] with [facility]O [facility]OGY, Odalsy Tobin - ([place]) Subjective: Feeling well today, no issues or concerns Overnight Events: NAEO Objective: Exam: General: appropriate, oriented Respiratory: Appropriate, Not auscultated, no increased work of breathing. LEFT LOWER EXTREMITY: Inspection: Residual limb with wound vac holding suction at 125mmhg Motor: fires quads, fires hamstrings, fires hip flexors Sensory: grossly intact to light touch proximal to thigh, diminished to light touch near wound edge. Junaid Burrell MD Orthopaedic Surgery, [id number] [id number] 03/26/2018 Greg Dean MD - 03/25/2018 9:59 PM PDTGeneral Medicine Attending Progress Note Author: Greg Del Rosario MD Hospital Day # 2 PCP: Santo Gooden MD I personally interviewed the patient, performed the romero elements of the physical examinatio n, and personally formulated the assessment and plan with Dr Cornejo and Dawit Amaya MS IV . Please see progress note for additional details; notable exceptions as written below. R OS as per note, all others negative. 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 POD 1 L stump washout and debridement. Since the procedure, she has been afebrile. Wound site erythema resolving. WBC increasing, though expected given recent neutropenia (now reso lved). Blood cultures negative, though 4/5 tissue cultures now growing E coli (as yet no se nsitivities have returned). Will continue broad spectrum coverage with cefepime until resis tance pattern returns. If no staph growth, can likely dc vancomycin tomorrow. Worsening of acute on chronic anemia is likely multifactorial -- some operative blood loss (though only mild serosanguinous wound vac output and no observable wound site bleeding/hematoma), hypopr oliferative marrow 2/2 recent chemotherapy and acute inflammation. Will transfuse and monit or. Will send hemolysis labs if downward trend continues. Plan to return to OR THURS for repeat debridement and closure. Patient/Family Goals & Expectations: Above problems discussed with the patient who understands and is agreeable with our plans. Greg Del Rosario MD [employer] Division of Hospital Medicine Teaching Attending I spent 35 minutes in the care of this patient, >50% engaged in bedside counseling or coord ination of care with orthopedics. yLnda Ravi MD - 03/25/2018 8:51 AM PDTPt doing ok. Has some swelling of amputation site PE: Ht 1.727 m (5' 8"), Wt 141.6 kg (312 lb 2.7 oz), BP 105/49, Pulse 73, Temperature 36.7 C (98.1 F), RR 18, SpO2 100%, BMI 47.47 kg/(m^2). Facility age limit for growth percentiles is [address], functioning well Erythema significantly decreased as compared to yesterday cx: pending. Gm stain neg A/P: s/p debridement L BKA site and placement of wound vac -plan for repeat debridement and likely closure of wound on . May need to shorten bone to do so. -IV abx Sorin Arce MD - 03/25/2018 8:09 AM PDT Orthopaedic Surgery Progress Note Patient: /Age: MRN: CSN: Date: Admission Date: Hospital Day: Orthopaedic Attending: Tati Cage 1985 32 y.o. [id number] 03/25/2018 03/23/2018 2 Macie Torre MD Diagnosis(es): left below-knee amputation stump infection Orthopaedic Procedure(s) & Date(s): irrigation and debridement of left below-knee amputati on stump, wound vac application Assessment & Plan: Tati Rhea Cage is a 32 y.o.F with the diagnoses/procedures listed above. Today's specific concerns include: Pain management-- Pain better tolerated. Able to move residual limb with less pain. Credits this to the tylenol. Mobilization-- From leslee Deshpande for patient to leave room and go outside with wound vac. Able to leave room to find cooler location. Care Protocol Items: 1. Immobility due to illness 1. Weight bearing: non-weight bearing, left lower extremity 2. ROM: as tolerated, motion encouraged 2. VTE prophylaxis: sequential compression devices, early ambulation 3. Antibiotics: vancomycin, until further notice 4. Special Concerns: drain out when output < 30cc per shift, or per staff, return to OR lat er this week for repeat wash out vs revision BKA. 5. Drains: Wound vac in place. Will take down in OR or POD 5 6. Dressings: No dressings over the top of the wound vac. 5. Orthopaedic Follow-up: Please call the clinic to make a follow up appointment in [facility] 2 weeks with ORTHO ONCOLOGY, Odalys Tobin - ([place]) Subjective: Overnight Events: Returned from OR yesterday. YUSEFEON Objective: Exam: General: appropriate, oriented Respiratory: Appropriate, Not auscultated, no increased work of breathing. LEFT LOWER EXTREMITY: Inspection: Residual limb with wound vac holding suction at 125mmhg. Sharp wound edges. Sm all area of cage discolored skin edge on the inferolateral aspect of the incision. Palpation: tender to palpation distal limb. Warm to touch compared to more proximal leg ROM: limited examination due to pain at distal limb. Able to actively flex hip to 90 degre es. Able to flex knee to 150 degrees Motor: fires quads, fires hamstrings, fires hip flexors Sensory: grossly intact to light touch proximal to thigh, diminished to light touch near wound edge. Vascular: capillary refill < 2 seconds distal to the knee. Reflexes: not performed Sorin Aguirre MD [facility]ics [facility] [address] [place] [address] Mail Code: OP31 [facility] [id number] Dawit Gilliam - 03/03 7:30 AM PDT General Internal Medicine 1 Progress Note 24 Hour Events: - Hg overnight was 5.3, down from 7.4 --> pRBC x1 - Hg this morning of 6.1 --> additional pRBC x1 - Plt 69 this morning, no platelets transfused - Output from wound vac on LLE has been minimal, <50 mL total since placement Current Symptoms: Upon evaluation this morning, pt is lying in bed. She says she feels better than yesterday, and the pain in her LLE at the amputation site is more tolerable. Denies pain anywhere else . She has felt warm over the past several days, but feels better now and has a fan pointed a t her face. Denies headache, cough, rhinorrhea, SOB, CP, abdominal pain, diarrhea, constipat ion, and urinary symptoms. Physical Examination: Last 24 hour min/max Temp: 36.5 C (97.7 F) Temp Min: 36.4 C (97.5 F) Max: 38.7 C (101.7 F) Pulse: 77 Pulse Min: 77 Max: 128 Resp: 16 Resp Min: 8 Max: 20 BP: 107/55 BP Min: 106/55 Max: 132/78 SpO2: 97 % SpO2 Min: 92 % Max: 100 % Body mass index is 47.47 kg/m. Intake/Output Summary (Last 24 hours) at 03/25/18 1524 Last data filed at 03/25/18 1316 Gross per 24 hour Intake 4820 ml Output 2450 ml Net 2370 ml Gen:Obese female, awake, smiling, in no acute distress HEENT:Atraumatic, PERRL, EOMI, pale,non-icteric sclera, no lesions in oropharynx, tongu e ring without signs of surrounding erythema or drainage Neck:No cervical or supraclavicular adenopathy CV:Regular rate and rhythm; S1/S2 present; no murmurs, gallops, or rubs Resp:CTAB, no wheezes, no crackles Abd:Normoactive bowel sounds; obese, soft, non-tender, non-distended; no rebound or guard ing Ext:Right: no edema, intact distal pulses, pneumatic compression device in place. Left: n o spreading erythema around incision, no significant edema, purulent discharge, no fluctuanc e. Wound vac in place, draining appropriately, total drainage <50mL Skin:No breakdown, rashes, or lesions. Laboratory Interpretation: CBC with diff last 72 hours (or 3 results) Recent Labs 03/24/18 0902 03/25/18 0223 03/25/18 0623 WBC 4.56 10.46 14.42* HB 7.4* 5.3* 6.1* HCT 21.5* 14.9* 17.8* PLT 32* 69* 69* NEUTROPERC 51.4 74.7* 56.9 LYMPHPERC 23.9 12.1* 8.5* MONOPERC 18.3* 10.8* 17.7* BASOPERC 0.0 0.0 0.9 EOSPERC 0.0* 0.0* 0.1* Recent Labs 03/23/18 1644 03/24/18 0902 03/24/18 1306 03/25/18 0623 NA 141 139 -- 138 K 3.4 2.7* -- 3.5 CL 105 110* -- 103 BICARB 31 25 -- 31 BUN 12 9 -- 12 CR 0.74 0.62 -- 0.65 GLU 115* 99 125* 156* CA 8.3* 7.3* -- 7.9* AST 10 10 -- 16 ALT 22 16 -- 24 AP 45 39* -- 45 TBILI 0.6 0.4 -- 0.3 TP 6.8 5.5* -- 6.0* ALB 3.1* 2.4* -- 2.6* ANIONGAP 5 4 -- 4 ANIONALBCOR 7 8 -- 7 Wound cultures: 4 out of 5 grew E. coli, other showed minimal growth so far Imaging Interpretation: No new imaging. Assessment and Plan Tati Cage is a 32 yo female with morbid obesity, endometriosis, and synovial sarcoma of le ft foot s/p left BKA on 02/06/18 and 2 cycles of adjuvant chemotherapy with ifosfamide/epirubi randy (last dose 03/12/18)who presented to OSH with neutropenic fever secondary to amputation -site infection. # Neutropenic Fever On presentation to OSH, ANC was 31, has now improved to 8210. This neutropenia was expected after course of ifosfamide, with neutrophil rodriguez typically occurring on day 8-14 after las t dose (her last dose 03/12/18), per hem/onc, and she is no longer neutropenic. Most recent f ever was 38.7 degrees C yesterday morning. Her WBC has been increasing 2 -> 4 -> 10 -> 14, l ikely due to her now being able to mount a response to infection after chemotherapy. Most li bill source is soft tissue infection of left BKA site. She has not had any further diarrhea during this admission, making C diff unlikely. Blood cultures drawn, were not drawn at OSH. CXR at OSH without evidence of consolidation. - Blood cultures here (drawn 03/23 after antibiotics initiated) show no growth to date. Woun d cultures taken during debridement grew E. coli. - Continue Vancomycin 1,250mg IV q8h and Cefepime 2g IV q8h given febrile neutropenia in se tting of soft tissue infection growing E. coli. Will continue to follow blood and wound cult ures. # Pancytopenia # Anemia Likely low production in setting of recent systemic chemotherapy. No evidence of acute bloo d loss or hemolysis. Drainage from wound vac has been minimal. Will continue to monitor and transfuse as needed, goal >7. - pRBC x2 administered today. Most recent Hb 6.1. - Repeat CBC this afternoon. # Thrombocytopenia - Platelets x1 unit administered on 03/23/18. - Plt 69 this morning. Goal Plt >35. # History of BKA, left # Amputation site infection Infection of left BKA in setting of neutropenia. On 03/24/18, ortho (Dr. Basurto) took her to OR for irrigation, debridement, and wound vac placement, with improving erythema afterward. Wound vac drainage has been <50 mL since placement yesterday. There was no sinus tract to christy ne and no evidence of osteomyelitis on X-ray. - Wound cultures taken during debridement initially growing E. coli, so will continue cefep davis for gram negative coverage in addition to vancomycin. - Per ortho, plan for repeat debridement and likely closure of wound on 03/27/18, which may require shortening of bone. - She is at high-risk for DVT but also thrombocytopenic. Per surgery, plan to resume enoxap lizeth tonight after >24 hours post-surgery depending on results of afternoon CBC. - Pain: acetaminophen 1,000mg PO q8h, oxycodone 5-15mg PO q4h PRN, hydromorphone 0.2-0.5mg IV q4h PRN # Synovial Sarcoma Completed cycle 2 of ifosfamide/epirubicin on 03/12/18. Last dose of Neulasta on 03/17/18. - Pt being followed by onc [place], appreciate recs. Dr. Sandra Patel is her primary oncologist. - Per onc, no indication for Filgrastim now given hemodynamic stability - Coordinating with onc and ortho regarding plan for timing of cycle 3 of chemotherapy, whi ch will need to be delayed Routine care: Feeding: regular diet Access: port, PIV DVT: sequential compression devices, resume enoxaparin tonight pending Plt level on repeat CBC this afternoon Code: Full Dispo: Continue inpatient care Dawit Jose Luis, MS4 [facility] Pager [phone] Associated attestation - Yves Cornejo MD - 03/25/2018 8:50 PM PDTFormatting of thi s note might be different from the original. Resident Attestation of Medical Student Note I have reviewed the below note, along with completing the relevant portions of the physical exam and patient interview, and agree with the below medical student documentation other th an any noted corrections, additions, or explanations. 24 HOUR EVENTS -Patient postop day #1 for left BKA wound washout with wound VAC placement -Patient afebrile >24 hours -Left leg pain stable-Required 2 units PRBC for hemoglobin less than 7; getting third at [facility] [employer] worker VITALS Last 24 hour min/max Temp: 36.7 C (98.1 F) Temp Min: 36.3 C (97.3 F) Max: 36.7 C (98.1 F) Pulse: 75 Pulse Min: 72 Max: 92 Resp: 18 Resp Min: 16 Max: 18 BP: 118/55 BP Min: 105/49 Max: 120/63 SpO2: 97 % SpO2 Min: 96 % Max: 100 % Body mass index is 47.47 kg/m. Intake/Output Summary (Last 24 hours) at 03/25/182044 Last data filed at 03/25/18 1910 Gross per 24 hour Intake 5702 ml Output 2700 ml Net 3002 ml PERTINENT EXAM FINDINGS Pale-appearing woman in mild distress. Nondiaphoretic. Nontoxic-appearing. No scleral icter us. Moist mucous membranes. Heart rates 90s, no murmurs. Abdomen soft nontender. Left hip di ctation stump less erythematous, wound VAC in place, less induration but still swollen. RELEVANT LAB/IMAGING/ANCILLARY DATA Na+ 138 K+ 3.5 corrected calcium 9.0 albumin 2.6 WBC 2.1> 2.9> >>> 15.1 ANC 640> 2340>>> 06394 Hgb 8.2> 7.3> 7.4> 5.3> 1 unit> 6.1> 1 unit> 6.1 Plt 24> 1 units> 36> 32> 2 units> 69> 55 Blood cultures 2 03/23: No growth to date Intraoperative tissue cultures 03/24: Escherichia coli (sensitivity pending) ASSESSMENT & PLAN Patient is a 32-year-old woman with PMH of synovial sarcoma status post left BKA and 2 cycl es ifex/epirubicin complicated by pancytopenia, and dictation stump infection, and neutropen ic fever Patients Hospital Problem List: Active Hospital Problems 1) *Neutropenic fever (HCC) No longer neutropenic, counts recovering abruptly and actually elevated in the setting of o ngoing local skin and soft tissue infection. Continuing infectious management below. Patient will likely need empiric antimicrobial coverage with next round of chemotherapy since her s econd neutropenic fever episode. 2) Hx of BKA, left (HCC) 3) Amputation stump infection (HCC) Intraoperative cultures surprisingly showing Escherichia coli. Fortunately, already on cefe pime. We'll continue vancomycin for time being as often skin and soft tissue infections are polymicrobial including gram-positive's. Monitor blood cultures. Follow sensitivities of int raoperative cultures. Vancomycin per pharmacy. Cefepime 2 g every 8 hours IV. Plans for OR o n . 4) Anemia Patient required 3 units of PRBCs, received one prior to admission. Particular site product ion index less than 0.1, consistent with hypoplastic anemia. Also with acute inflammation, R BC lifespan is likely low. However Hx for hemolysis once, we'll add on LDH tomorrow morning. No signs of acute blood loss. Transfusion goal hemoglobin greater than 7 5) Synovial sarcoma (HCC) Onc following while in house. No acute intervention from that perspective. Orthopedic surgi sheng team advocating for delay in next cycle of chemotherapy. Per medical team perspective, t hat seems appropriate as premature chemotherapy will likely result in another neutropenic fe loree and skin soft tissue infection until stump is resolved. Oncology and orthopedic teams co mmunicating, appreciative persistence. High risk DVT, restart Lovenox 1 dose tonight 6) Obesity 7) Thrombocytopenia (HCC) In the setting of her pancytopenia. She's required platelet transfusion preoperatively to m eet goal of 50 K. CBC monitoring. Transfusion goal greater than 30,000 , setting for OR, [facility] then goal is 50 K. Remainder of plan per her some procurement intern note attached. Yves Cornejo MD ([place]) Internal Medicine PGY-2 P This note has been documented with the assistance of voice recognition software. Please not e, there may be typographic or semantic errors as a result. The medical plan has been review ed and is considered complete and correct. Dawit Amaya Sho - 03/24/2018 4:39 PM PDT General Internal Medicine 1 Progress Note 24 Hour Events: - Irrigation and debridement of left [id number] amputation stump followed by wound vac placement, performed by orthopaedic surgery. - Temperature up to 38.7 degrees C this morning at 09:45, afebrile since. Tachycardia with rates 94-128. Current Symptoms: Pt was evaluated after returning from the OR for left BKA stump irrigation and debridement. She says she has pain around the stump after the procedure. She also feels diaphoretic afte r the procedure. Otherwise she feels well. Denies pain anywhere aside from around her stump. Denies fevers/chills, headache, CP, SOB, nausea/vomiting. Physical Examination: Last 24 hour min/max Temp: 37.3 C (99.1 F) Temp Min: 37.3 C (99.1 F) Max: 39 C (102.2 F) Pulse: 103 Pulse Min: 94 Max: 128 Resp: 12 Resp Min: 8 Max: 20 BP: 121/67 BP Min: 107/69 Max: 144/72 SpO2: 99 % SpO2 Min: 92 % Max: 100 % Body mass index is 47.47 kg/m. Intake/Output Summary (Last 24 hours) at 03/24/18 1640 Last data filed at 03/24/18 1611 Gross per 24 hour Intake 3541 ml Output 1915 ml Net 1626 ml Gen: Obese female, awake, mildly diaphoretic, in no acute distress HEENT: Atraumatic, PERRL, EOMI, pale, non-icteric sclera, no lesions in oropharynx, tongue ring without signs of surrounding erythema or drainage Neck: No cervical or supraclavicular adenopathy CV: Borderline tachycardia, regular rhythm; S1/S2 present; no murmurs, gallops, or rubs Resp: CTAB, no wheezes, no crackles Abd: Normoactive bowel sounds; soft, non-tender, non-distended; no rebound or guarding Ext: Right: no edema, intact pedal pulse. Left: erythema around incision, no purulent disch arge, no fluctuance. Wound vac in place. Skin: No breakdown, rashes, or lesions. Laboratory Interpretation: CBC with diff last 72 hours (or 3 results) Recent Labs 03/23/18 1641 03/24/18 0059 03/24/18 0902 WBC 2.12* 2.95* 4.56 HB 8.2* 7.3* 7.4* HCT 23.7* 20.9* 21.5* PLT 24* 36* 32* NEUTROPERC 30.2* -- 51.4 LYMPHPERC 41.0 -- 23.9 MONOPERC 24.1* -- 18.3* BASOPERC 1.4 -- 0.0 EOSPERC 0.5* -- 0.0* ANC: 2,340 RBC Morphology: Dohle Bodies: Present Toxic Granulation: Present Anisocytosis: 3+ (>100 cells/HPF) Microcytosis: 3+ (>100 cells/HPF) Recent Labs 01/23/18 1448 02/07/18 0453 03/12/18 1420 03/23/18 1644 03/24/18 0902 03/24/18 1306 NA 139 < > 139 < > 141 141 139 -- K 3.3* < > 4.0 < > 3.4 3.4 2.7* -- CL 102 < > 108 < > 102 105 110* -- BICARB 29 < > 27 < > 27 31 25 -- BUN 18 < > 15 < > 13 12 9 -- CR 0.90 < > 0.66 < > 0.8 0.74 0.62 -- GLU 94 < > 98 < > 88 115* 99 125* CA 9.7 < > 8.0* < > 9.3 8.3* 7.3* -- AST 34 -- -- < > 23 10 10 -- ALT 36 -- -- < > 25 22 16 -- AP 68 -- -- < > 55 45 39* -- TBILI 0.7 -- -- < > 0.5 0.6 0.4 -- TP 8.2* -- -- < > 7.1 6.8 5.5* -- ALB 4.0 -- -- < > 3.5 3.1* 2.4* -- ANIONGAP -- < > 4 -- -- 5 4 -- ANIONALBCOR -- -- -- -- -- 7 8 -- < > = values in this interval not displayed. Imaging Interpretation: X-ray Left Knee 2 Views, 03/23/2018: "IMPRESSION: Mid tibial and fibular amputations without osteomyelitis or other complication . Soft tissue swelling with possible small ulceration." Assessment and Plan: Tati Cage is a 32 yo female s/p left BKA for synovial sarcoma on 02/06/18 and 2 cycles of ad juvant chemotherapy with ifex/epirubin who presented to OSH with neutropenic fever secondary to amputation-stump infection. #Neutropenic Fever On presentation to OSH ANC 31, has improved to 2340. Most recent fever was 38.7 degrees C t his morning. Most likely source is soft tissue infection of left BKA with concern for underl kristin osteomyelitis. C diff is another consideration but seems less likely given rapid resolu tion of diarrhea. Blood cultures drawn, were not drawn at OSH. CXR at OSH without evidence o f consolidation. - Continue Vancomycin 1,250mg IV q8h and Cefepime 2g IV q8h given febrile neutropenia in se tting of soft tissue infection. Consider discontinuing cefepime tomorrow if she remains afeb rile and ANC continues to be >500. - Blood cultures x2 pending #History of BKA, left #Amputation stump infection Infection of left BKA in setting of neutropenia. Elevated CRP of 166 and ESR of 102. Ortho evaluated her and took her to the OR today for left BKA stump followed by wound vac placemen t, without complications. Wound cultures x6 collected. Pt noted pain around stump, so added scheduled acetaminophen and hydromorphone PRN for breakthrough. - Follow-up on wound cultures - Continue antibiotics - Resumed regular diet after procedure. - She is at high-risk for DVT but also thrombocytopenic. Per surgery, plan to resume enoxap lizeth tomorrow after >24 hours post-surgery. - Pain: acetaminophen 1,000mg PO q8h, oxycodone 5-15mg PO q4h PRN, hydromorphone 0.2-0.5mg IV q4h PRN #Synovial Sarcoma Completed cycle 2 of ifox/epirubicin on 03/12/18. Last dose of Neulasta on 03/17/18. - Pt followed by onc LUIS, who is seeing patient today - Per onc, no indication for Filgrastim now given hemodynamic stability #Pancytopenia #Anemia Likely low production in setting of recent systemic chemotherapy. No evidence of acute bloo d loss or hemolysis. Will continue to monitor and transfuse as needed, goal >7. #Thrombocytopenia: - Platelets x1 unit administered on 03/23/18. - Plt of 32 this morning. Checking CBC again this evening after procedure. Goal Plt >35. Routine care: Feeding: regular diet Access: port, PIV DVT: sequential compression devices, resume enoxaparin tomorrow Code: Full Dispo: Continue inpatient care Dawit Amaya, MS4 [facility] Pager [phone] signed by Greg Del Rosario MD at 03/24/2018 11:50 PM Tsering Boucher MD,MPH - 03/24/2018 12:56 PM PDT INPATIENT BRIEF OPERATIVE NOTE Procedure Date: 03/24/2018 Author: TSERING DUMONT MD,MPH Attending Physician: Macie Torre MD Assistants: TSERING DUMONT MD,MPH, Jay Gonzalez MD Preoperative Diagnosis: left below-knee amputation stump infection Postoperative Diagnosis: same Procedure Performed: irrigation and debridement of left below-knee amputation stump, wound vac application Implants: none Estimated Blood Loss: 100 mL Tourniquet time: none Fluids: See Anesthesia Record Specimens: ortho biopsy Complications: None Drains: wound vac applied Disposition: stable to post-anesthesia care unit Findings: see full op note Post-op plan: 1. Weight Bearing: non-weight bearing, left lower extremity 2. Acute pain: oral analgesia and IV analgesia, wean as possible 3. Diet: regular diet, advance as tolerated 4. Antibiotics: Continue vancomycin 5. Special Concerns: Return to operating room later this week for repeat I&D, possible revi bonifacoi below-knee amputation 6. Medications: Resume home medications as indicated 7. VTE prophalaxis: sequential compression devices, early ambulation 8. Anticipated discharge: Pending course TSERING DUMONT MD,MPH PGY-5 Orthopaedic Surgery Pager: [phone] Deann Andrew MD - 03/24/2018 2:00 AM PDTBrief Ortho Note Given patient's neutropenic fever in the setting of drainage and erythema at her BKA stump, saw patient this AM to evaluate for progression of infection. On entering the room, the pat ient was ambulating from the bathroom without difficulty. In speaking with patient, she says that she feels her pain, redness and drainage have been stable since admission. On exam, th e wound remains erythematous with some discharge at the medial and lateral aspects of the in cision. No proximal tracking of erythema. Patient remains tachycardic and febrile. Respirato ry rate and mentation within normal limits. Patient appears to be stable on her current anti biotic regimen. Patient is scheduled for second case tomorrow morning. Should remain NPO. Federico Simpson MD Orthopedic Surgery, R2 Pager [phone] documented in this encounter Plan of Treatment +--------+ + + + + | Date | Type | Specialty | Care Team | Description | +--------+ + + + + | 03/25/ | Appointment | Radiology | Sandra Patel MD | | | 2018 | | | [address] | | | | | | [place], [place] | | | | | | [phone] | | | | | | [phone] | | | | | | | | +--------+ + + + + | 03/25/ | Office | Orthopedics | Lynda Basurto, | | | 2018 | Visit | | [address] | | | | | | [address] | | | | | | [place], [place] | | | | | | [phone] | | | | | | [phone] | | | | | | | | +--------+ + + + + | 03/25/ | Office | Hematology & | Sandra Patel MD | | | 2018 | Visit | Oncology | [address] | | | | | | [place], [place] | | | | | | [address] | | | | | | [phone] | | | | | | | | +--------+ + + + + documented as of this encounter Procedures + +--------+ + + + | Procedure Name | Priori | Date/Time | Associated Diagnosis | Comments | | | ty | | | | + +--------+ + + + | BASIC METABOLIC SET | Routin | 04/01/2018 | | Results for this | | (NA, K, CL, TCO2, | e | 4:41 AM | | procedure are in the | | BUN, CR, GLU, CA) | | PDT | | results section. | + +--------+ + + + | RETICULOCYTE COUNT | Routin | 04/01/2018 | | Results for this | | | e | 4:40 AM | | procedure are in the | | | | PDT | | results section. | + +--------+ + + + | RBC MORPHOLOGY | Routin | 04/01/2018 | | Results for this | | | e | 4:40 AM | | procedure are in the | | | | PDT | | results section. | + +--------+ + + + | CBC AND AUTO DIFF | Routin | 04/01/2018 | | Results for this | | | e | 4:40 AM | | procedure are in the | | | | PDT | | results section. | + +--------+ + + + | MANUAL DIFFERENTIAL | Routin | 04/01/2018 | | Results for this | | | e | 4:40 AM | | procedure are in the | | | | PDT | | results section. | + +--------+ + + + | CBC, WITH | Routin | 04/01/2018 | | Results for this | | DIFFERENTIAL | e | 4:40 AM | | procedure are in the | | | | PDT | | results section. | + +--------+ + + + | RETICULOCYTE COUNT, | Routin | 04/01/2018 | | Results for this | | BLOOD | e | 4:40 AM | | procedure are in the | | | | PDT | | results section. | + +--------+ + + + | CT LOWER EXTREMITY | Urgent | 03/31/2018 | | Results for this | | BILATERAL W CONTRAST | | 5:09 PM | | procedure are in the | | | | PDT | | results section. | + +--------+ + + + | CT ABDOMEN AND | Urgent | 03/31/2018 | | Results for this | | PELVIS W IV CONTRAST | | 5:08 PM | | procedure are in the | | | | PDT | | results section. | + +--------+ + + + | CBC (HEMOGRAM) ONLY | Routin | 03/31/2018 | | Results for this | | | e | 1:57 PM | | procedure are in the | | | | PDT | | results section. | + +--------+ + + + | CBC ONLY | Routin | 03/31/2018 | | Results for this | | | e | 1:57 PM | | procedure are in the | | | | PDT | | results section. | + +--------+ + + + | TRANSFUSE RED CELLS, | Routin | 03/31/2018 | | | | LEUKOREDUCED | e | 11:49 AM | | | | | | PDT | | | + +--------+ + + + | C3 CRISTIANO | Routin | 03/31/2018 | | Results for this | | | e | 11:33 AM | | procedure are in the | | | | PDT | | results section. | + +--------+ + + + | CRISTIANO IGG | Routin | 03/31/2018 | | Results for this | | | e | 11:33 AM | | procedure are in the | | | | PDT | | results section. | + +--------+ + + + | COMPLETE METABOLIC | Routin | 03/31/2018 | | Results for this | | SET | e | 11:33 AM | | procedure are in the | | (NA,K,CL,CO2,BUN,CRE | | PDT | | results section. | | AT,GLUC,CA,AST,ALT,B | | | | | | AZEEM TOTAL,ALK | | | | | | PHOS,ALB,PROT TOTAL) | | | | | + +--------+ + + + | COAGULOPATHY PANEL | Routin | 03/31/2018 | | Results for this | | (INR,APTT,FIBRINOGEN | e | 11:33 AM | | procedure are in the | | ) | | PDT | | results section. | + +--------+ + + + | BRIE, DIRECT | Routin | 03/31/2018 | | Results for this | | | e | 11:33 AM | | procedure are in the | | | | PDT | | results section. | + +--------+ + + + | HAPTOGLOBIN | Routin | 03/31/2018 | | Results for this | | | e | 11:33 AM | | procedure are in the | | | | PDT | | results section. | + +--------+ + + + | LDH TOTAL, PLASMA | Routin | 03/31/2018 | | Results for this | | | e | 11:33 AM | | procedure are in the | | | | PDT | | results section. | + +--------+ + + + | TRANSFUSE RED CELLS, | Routin | 03/31/2018 | | | | LEUKOREDUCED | e | 9:25 AM | | | | | | PDT | | | + +--------+ + + + | PRODUCT - RED CELLS | Routin | 03/31/2018 | | Results for this | | LEUKOREDUCED | e | 5:58 AM | | procedure are in the | | | | PDT | | results section. | + +--------+ + + + | PRODUCT - RED CELLS | Routin | 03/31/2018 | | Results for this | | LEUKOREDUCED | e | 5:58 AM | | procedure are in the | | | | PDT | | results section. | + +--------+ + + + | PRODUCT - RED CELLS | Routin | 03/31/2018 | | Results for this | | LEUKOREDUCED | e | 5:58 AM | | procedure are in the | | | | PDT | | results section. | + +--------+ + + + | DIFFERENTIAL, ADD ON | Routin | 03/31/2018 | | Results for this | | | e | 4:53 AM | | procedure are in the | | | | PDT | | results section. | + +--------+ + + + | DIFFERENTIAL, ADD ON | Routin | 03/31/2018 | | Results for this | | | e | 4:53 AM | | procedure are in the | | | | PDT | | results section. | + +--------+ + + + | CBC (HEMOGRAM) ONLY | Routin | 03/31/2018 | | Results for this | | | e | 4:53 AM | | procedure are in the | | | | PDT | | results section. | + +--------+ + + + | MANUAL DIFFERENTIAL | Routin | 03/31/2018 | | Results for this | | | e | 4:53 AM | | procedure are in the | | | | PDT | | results section. | + +--------+ + + + | BASIC METABOLIC SET | Routin | 03/31/2018 | | Results for this | | (NA, K, CL, TCO2, | e | 4:53 AM | | procedure are in the | | BUN, CR, GLU, CA) | | PDT | | results section. | + +--------+ + + + | CBC ONLY | Routin | 03/31/2018 | | Results for this | | | e | 4:53 AM | | procedure are in the | | | | PDT | | results section. | + +--------+ + + + | FERRITIN | Routin | 03/31/2018 | | Results for this | | | e | 4:53 AM | | procedure are in the | | | | PDT | | results section. | + +--------+ + + + | CAPILLARY BLOOD | Routin | 03/30/2018 | Neutropenic fever | Results for this | | GLUCOSE (NO CHG), | e | 1:30 PM | (HCC) | procedure are in the | | POC | | PDT | | results section. | + +--------+ + + + | CBC (HEMOGRAM) ONLY | Routin | 03/30/2018 | | Results for this | | | e | 6:19 AM | | procedure are in the | | | | PDT | | results section. | + +--------+ + + + | BASIC METABOLIC SET | Routin | 03/30/2018 | | Results for this | | (NA, K, CL, TCO2, | e | 6:19 AM | | procedure are in the | | BUN, CR, GLU, CA) | | PDT | | results section. | + +--------+ + + + | CBC ONLY | Routin | 03/30/2018 | | Results for this | | | e | 6:19 AM | | procedure are in the | | | | PDT | | results section. | + +--------+ + + + | CBC (HEMOGRAM) ONLY | Routin | 03/29/2018 | | Results for this | | | e | 9:43 PM | | procedure are in the | | | | PDT | | results section. | + +--------+ + + + | CBC ONLY | Routin | 03/29/2018 | | Results for this | | | e | 9:43 PM | | procedure are in the | | | | PDT | | results section. | + +--------+ + + + | TRANSFUSE RED CELLS, | Routin | 03/29/2018 | | | | LEUKOREDUCED | e | 7:59 PM | | | | | | PDT | | | + +--------+ + + + | ANTIBODY SCREEN | Urgent | 03/29/2018 | | Results for this | | | | 1:32 PM | | procedure are in the | | | | PDT | | results section. | + +--------+ + + + | TYPE AND SCREEN | Urgent | 03/29/2018 | | Results for this | | | | 1:32 PM | | procedure are in the | | | | PDT | | results section. | + +--------+ + + + | ABO & RH TYPE | Urgent | 03/29/2018 | | Results for this | | | | 1:32 PM | | procedure are in the | | | | PDT | | results section. | + +--------+ + + + | PRODUCT - RED CELLS | Routin | 03/29/2018 | | Results for this | | LEUKOREDUCED | e | 12:58 PM | | procedure are in the | | | | PDT | | results section. | + +--------+ + + + | CAPILLARY BLOOD | Routin | 03/29/2018 | Neutropenic fever | Results for this | | GLUCOSE (NO CHG), | e | 12:12 PM | (HCC) | procedure are in the | | POC | | PDT | | results section. | + +--------+ + + + | CBC (HEMOGRAM) ONLY | Routin | 03/29/2018 | | Results for this | | | e | 7:08 AM | | procedure are in the | | | | PDT | | results section. | + +--------+ + + + | VANCOMYCIN, TROUGH | Routin | 03/29/2018 | | Results for this | | | e | 7:08 AM | | procedure are in the | | | | PDT | | results section. | + +--------+ + + + | BASIC METABOLIC SET | Routin | 03/29/2018 | | Results for this | | (NA, K, CL, TCO2, | e | 7:08 AM | | procedure are in the | | BUN, CR, GLU, CA) | | PDT | | results section. | + +--------+ + + + | CBC ONLY | Routin | 03/29/2018 | | Results for this | | | e | 7:08 AM | | procedure are in the | | | | PDT | | results section. | + +--------+ + + + | RBC MORPHOLOGY | Routin | 03/28/2018 | | Results for this | | | e | 6:54 AM | | procedure are in the | | | | PDT | | results section. | + +--------+ + + + | CBC AND AUTO DIFF | Routin | 03/28/2018 | | Results for this | | | e | 6:54 AM | | procedure are in the | | | | PDT | | results section. | + +--------+ + + + | CBC, WITH | Routin | 03/28/2018 | | Results for this | | DIFFERENTIAL | e | 6:54 AM | | procedure are in the | | | | PDT | | results section. | + +--------+ + + + | COMPLETE METABOLIC | Routin | 03/28/2018 | | Results for this | | SET | e | 6:54 AM | | procedure are in the | | (NA,K,CL,CO2,BUN,CRE | | PDT | | results section. | | AT,GLUC,CA,AST,ALT,B | | | | | | AZEEM TOTAL,ALK | | | | | | PHOS,ALB,PROT TOTAL) | | | | | + +--------+ + + + | CBC (HEMOGRAM) ONLY | Urgent | 03/27/2018 | | Results for this | | | | 6:10 PM | | procedure are in the | | | | PDT | | results section. | + +--------+ + + + | CBC ONLY | Urgent | 03/27/2018 | | Results for this | | | | 6:10 PM | | procedure are in the | | | | PDT | | results section. | + +--------+ + + + | OPERATION RECORD | | 03/27/2018 | | Results for this | | | | 12:10 PM | | procedure are in the | | | | PDT | | results section. | + +--------+ + + + | CAPILLARY BLOOD | Routin | 03/27/2018 | Neutropenic fever | Results for this | | GLUCOSE (NO CHG), | e | 12:06 PM | ([facility]) | procedure are in the | | POC | | PDT | | results section. | + +--------+ + + + | PROCEDURE NOTE | Routin | 03/27/2018 | | Results for this | | | e | 11:37 AM | | procedure are in the | | | | PDT | | results section. | + +--------+ + + + | CAPILLARY BLOOD | Routin | 03/27/2018 | Neutropenic fever | Results for this | | GLUCOSE (NO CHG), | e | 10:44 AM | (HCC) | procedure are in the | | POC | | PDT | | results section. | + +--------+ + + + | CULTURE, TISSUE | Urgent | 03/27/2018 | | Results for this | | | | 10:27 AM | | procedure are in the | | | | PDT | | results section. | + +--------+ + + + | CULTURE, TISSUE | Urgent | 03/27/2018 | | Results for this | | | | 10:27 AM | | procedure are in the | | | | PDT | | results section. | + +--------+ + + + | CULTURE, TISSUE | Urgent | 03/27/2018 | | Results for this | | | | 10:24 AM | | procedure are in the | | | | PDT | | results section. | + +--------+ + + + | CULTURE, TISSUE | Urgent | 03/27/2018 | | Results for this | | | | 10:23 AM | | procedure are in the | | | | PDT | | results section. | + +--------+ + + + | CULTURE, TISSUE | Urgent | 03/27/2018 | | Results for this | | | | 9:32 AM | | procedure are in the | | | | PDT | | results section. | + +--------+ + + + | CAPILLARY BLOOD | Routin | 03/27/2018 | Neutropenic fever | Results for this | | GLUCOSE (NO CHG), | e | 8:22 AM | (HCC) | procedure are in the | | POC | | PDT | | results section. | + +--------+ + + + | RBC MORPHOLOGY | Routin | 03/27/2018 | | Results for this | | | e | 3:56 AM | | procedure are in the | | | | PDT | | results section. | + +--------+ + + + | CBC AND AUTO DIFF | Routin | 03/27/2018 | | Results for this | | | e | 3:56 AM | | procedure are in the | | | | PDT | | results section. | + +--------+ + + + | MANUAL DIFFERENTIAL | Routin | 03/27/2018 | | Results for this | | | e | 3:56 AM | | procedure are in the | | | | PDT | | results section. | + +--------+ + + + | CBC, WITH | Routin | 03/27/2018 | | Results for this | | DIFFERENTIAL | e | 3:56 AM | | procedure are in the | | | | PDT | | results section. | + +--------+ + + + | COMPLETE METABOLIC | Routin | 03/27/2018 | | Results for this | | SET | e | 3:56 AM | | procedure are in the | | (NA,K,CL,CO2,BUN,CRE | | PDT | | results section. | | AT,GLUC,CA,AST,ALT,B | | | | | | AZEEM TOTAL,ALK | | | | | | PHOS,ALB,PROT TOTAL) | | | | | + +--------+ + + + | CBC (HEMOGRAM) ONLY | Routin | 03/26/2018 | | Results for this | | | e | 6:57 AM | | procedure are in the | | | | PDT | | results section. | + +--------+ + + + | CBC ONLY | Routin | 03/26/2018 | | Results for this | | | e | 6:57 AM | | procedure are in the | | | | PDT | | results section. | + +--------+ + + + | COMPLETE METABOLIC | Routin | 03/26/2018 | | Results for this | | SET | e | 6:56 AM | | procedure are in the | | (NA,K,CL,CO2,BUN,CRE | | PDT | | results section. | | AT,GLUC,CA,AST,ALT,B | | | | | | AZEEM TOTAL,ALK | | | | | | PHOS,ALB,PROT TOTAL) | | | | | + +--------+ + + + | LDH TOTAL, PLASMA | Routin | 03/26/2018 | | Results for this | | | e | 6:56 AM | | procedure are in the | | | | PDT | | results section. | + +--------+ + + + | TRANSFUSE RED CELLS, | Routin | 03/26/2018 | | | | LEUKOREDUCED | e | 6:26 AM | | | | | | PDT | | | + +--------+ + + + | PRODUCT - RED CELLS | Urgent | 03/26/2018 | | Results for this | | LEUKOREDUCED | | 3:39 AM | | procedure are in the | | | | PDT | | results section. | + +--------+ + + + | VANCOMYCIN, TROUGH | Routin | 03/26/2018 | | Results for this | | | e | 1:30 AM | | procedure are in the | | | | PDT | | results section. | + +--------+ + + + | CBC (HEMOGRAM) ONLY | Routin | 03/25/2018 | | Results for this | | | e | 11:01 PM | | procedure are in the | | | | PDT | | results section. | + +--------+ + + + | CBC ONLY | Routin | 03/25/2018 | | Results for this | | | e | 11:01 PM | | procedure are in the | | | | PDT | | results section. | + +--------+ + + + | TRANSFUSE RED CELLS, | Routin | 03/25/2018 | | | | LEUKOREDUCED | e | 10:30 PM | | | | | | PDT | | | + +--------+ + + + | PRODUCT - RED CELLS | Routin | 03/25/2018 | | Results for this | | LEUKOREDUCED | e | 7:05 PM | | procedure are in the | | | | PDT | | results section. | + +--------+ + + + | RETICULOCYTE COUNT | Routin | 03/25/2018 | | Results for this | | | e | 6:03 PM | | procedure are in the | | | | PDT | | results section. | + +--------+ + + + | RBC MORPHOLOGY | Routin | 03/25/2018 | | Results for this | | | e | 6:03 PM | | procedure are in the | | | | PDT | | results section. | + +--------+ + + + | CBC AND AUTO DIFF | Routin | 03/25/2018 | | Results for this | | | e | 6:03 PM | | procedure are in the | | | | PDT | | results section. | + +--------+ + + + | MANUAL DIFFERENTIAL | Routin | 03/25/2018 | | Results for this | | | e | 6:03 PM | | procedure are in the | | | | PDT | | results section. | + +--------+ + + + | CBC, WITH | Routin | 03/25/2018 | | Results for this | | DIFFERENTIAL | e | 6:03 PM | | procedure are in the | | | | PDT | | results section. | + +--------+ + + + | RETICULOCYTE COUNT, | Routin | 03/25/2018 | | Results for this | | BLOOD | e | 6:03 PM | | procedure are in the | | | | PDT | | results section. | + +--------+ + + + | TRANSFUSE RED CELLS, | Routin | 03/25/2018 | | | | LEUKOREDUCED | e | 1:22 PM | | | | | | PDT | | | + +--------+ + + + | RBC MORPHOLOGY | Routin | 03/25/2018 | | Results for this | | | e | 6:23 AM | | procedure are in the | | | | PDT | | results section. | + +--------+ + + + | CBC AND AUTO DIFF | Routin | 03/25/2018 | | Results for this | | | e | 6:23 AM | | procedure are in the | | | | PDT | | results section. | + +--------+ + + + | CBC, WITH | Routin | 03/25/2018 | | Results for this | | DIFFERENTIAL | e | 6:23 AM | | procedure are in the | | | | PDT | | results section. | + +--------+ + + + | COMPLETE METABOLIC | Routin | 03/25/2018 | | Results for this | | SET | e | 6:23 AM | | procedure are in the | | (NA,K,CL,CO2,BUN,CRE | | PDT | | results section. | | AT,GLUC,CA,AST,ALT,B | | | | | | AZEEM TOTAL,ALK | | | | | | PHOS,ALB,PROT TOTAL) | | | | | + +--------+ + + + | TRANSFUSE RED CELLS, | Routin | 03/25/2018 | | | | LEUKOREDUCED | e | 5:40 AM | | | | | | PDT | | | + +--------+ + + + | PRODUCT - RED CELLS | Urgent | 03/25/2018 | | Results for this | | LEUKOREDUCED | | 3:02 AM | | procedure are in the | | | | PDT | | results section. | + +--------+ + + + | RBC MORPHOLOGY | Routin | 03/25/2018 | | Results for this | | | e | 2:23 AM | | procedure are in the | | | | PDT | | results section. | + +--------+ + + + | CBC AND AUTO DIFF | Routin | 03/25/2018 | | Results for this | | | e | 2:23 AM | | procedure are in the | | | | PDT | | results section. | + +--------+ + + + | MANUAL DIFFERENTIAL | Routin | 03/25/2018 | | Results for this | | | e | 2:23 AM | | procedure are in the | | | | PDT | | results section. | + +--------+ + + + | CBC, WITH | Routin | 03/25/2018 | | Results for this | | DIFFERENTIAL | e | 2:23 AM | | procedure are in the | | | | PDT | | results section. | + +--------+ + + + | VANCOMYCIN, TROUGH | Routin | 03/24/2018 | | Results for this | | | e | 5:05 PM | | procedure are in the | | | | PDT | | results section. | + +--------+ + + + | DEBRIDEMENT OF BELOW | Routin | 03/24/2018 | | Results for this | | KNEE AMPUTATION | e | 1:31 PM | | procedure are in the | | STUMP | | PDT | | results section. | + +--------+ + + + | CAPILLARY BLOOD | Routin | 03/24/2018 | Neutropenic fever | Results for this | | GLUCOSE (NO CHG), | e | 1:06 PM | (HCC) | procedure are in the | | POC | | PDT | | results section. | + +--------+ + + + | SURGICAL PATHOLOGY | Routin | 03/24/2018 | | Results for this | | | e | 11:59 AM | | procedure are in the | | | | PDT | | results section. | + +--------+ + + + | CULTURE, TISSUE | Urgent | 03/24/2018 | | Results for this | | | | 11:58 AM | | procedure are in the | | | | PDT | | results section. | + +--------+ + + + | CULTURE, TISSUE | Urgent | 03/24/2018 | | Results for this | | | | 11:58 AM | | procedure are in the | | | | PDT | | results section. | + +--------+ + + + | CULTURE, TISSUE | Urgent | 03/24/2018 | | Results for this | | | | 11:58 AM | | procedure are in the | | | | PDT | | results section. | + +--------+ + + + | CULTURE, TISSUE | Urgent | 03/24/2018 | | Results for this | | | | 11:58 AM | | procedure are in the | | | | PDT | | results section. | + +--------+ + + + | CULTURE, TISSUE | Urgent | 03/24/2018 | | Results for this | | | | 11:56 AM | | procedure are in the | | | | PDT | | results section. | + +--------+ + + + | KNEE SOFT TISSUE | | 03/24/2018 | LEFT BELOW THE | | | PROCEDURES | | 11:14 AM | KNEE STUMP INFECTION | | | | | PDT | | | + +--------+ + + + | PRODUCT - PLATELET | Routin | 03/24/2018 | | Results for this | | PHERESIS | e | 9:15 AM | | procedure are in the | | LEUKOREDUCED | | PDT | | results section. | + +--------+ + + + | PRODUCT - RED CELLS | Routin | 03/24/2018 | | Results for this | | LEUKOREDUCED | e | 9:15 AM | | procedure are in the | | | | PDT | | results section. | + +--------+ + + + | PRODUCT - RED CELLS | Routin | 03/24/2018 | | Results for this | | LEUKOREDUCED | e | 9:15 AM | | procedure are in the | | | | PDT | | results section. | + +--------+ + + + | RBC MORPHOLOGY | Routin | 03/24/2018 | | Results for this | | | e | 9:02 AM | | procedure are in the | | | | PDT | | results section. | + +--------+ + + + | CBC AND AUTO DIFF | Urgent | 03/24/2018 | | Results for this | | | | 9:02 AM | | procedure are in the | | | | PDT | | results section. | + +--------+ + + + | MANUAL DIFFERENTIAL | Routin | 03/24/2018 | | Results for this | | | e | 9:02 AM | | procedure are in the | | | | PDT | | results section. | + +--------+ + + + | CBC, WITH | Urgent | 03/24/2018 | | Results for this | | DIFFERENTIAL | | 9:02 AM | | procedure are in the | | | | PDT | | results section. | + +--------+ + + + | COMPLETE METABOLIC | Urgent | 03/24/2018 | | Results for this | | SET | | 9:02 AM | | procedure are in the | | (NA,K,CL,CO2,BUN,CRE | | PDT | | results section. | | AT,GLUC,CA,AST,ALT,B | | | | | | AZEEM TOTAL,ALK | | | | | | PHOS,ALB,PROT TOTAL) | | | | | + +--------+ + + + | CBC (HEMOGRAM) ONLY | Routin | 03/24/2018 | | Results for this | | | e | 12:59 AM | | procedure are in the | | | | PDT | | results section. | + +--------+ + + + | CBC ONLY | Routin | 03/24/2018 | | Results for this | | | e | 12:59 AM | | procedure are in the | | | | PDT | | results section. | + +--------+ + + + | CARDIOLOGY | | 03/24/2018 | | Results for this | | | | 12:00 AM | | procedure are in the | | | | PDT | | results section. | + +--------+ + + + | TRANSFUSE PLATELET | Routin | 03/23/2018 | | | | PHERESIS, | e | 8:23 PM | | | | LEUKOREDUCED | | PDT | | | + +--------+ + + + | PRODUCT - PLATELET | Routin | 03/23/2018 | | Results for this | | PHERESIS | e | 4:53 PM | | procedure are in the | | LEUKOREDUCED | | PDT | | results section. | + +--------+ + + + | COMPLETE METABOLIC | Routin | 03/23/2018 | | Results for this | | SET | e | 4:44 PM | | procedure are in the | | (NA,K,CL,CO2,BUN,CRE | | PDT | | results section. | | AT,GLUC,CA,AST,ALT,B | | | | | | AZEEM TOTAL,ALK | | | | | | PHOS,ALB,PROT TOTAL) | | | | | + +--------+ + + + | C-REACTIVE PROTEIN | Routin | 03/23/2018 | | Results for this | | | e | 4:44 PM | | procedure are in the | | | | PDT | | results section. | + +--------+ + + + | COAGULOPATHY PANEL | Routin | 03/23/2018 | | Results for this | | (INR,APTT,FIBRINOGEN | e | 4:44 PM | | procedure are in the | | ) | | PDT | | results section. | + +--------+ + + + | D-DIMER, (PE OR DIC) | Routin | 03/23/2018 | | Results for this | | | e | 4:44 PM | | procedure are in the | | | | PDT | | results section. | + +--------+ + + + | HAPTOGLOBIN | Routin | 03/23/2018 | | Results for this | | | e | 4:44 PM | | procedure are in the | | | | PDT | | results section. | + +--------+ + + + | LDH TOTAL, PLASMA | Routin | 03/23/2018 | | Results for this | | | e | 4:44 PM | | procedure are in the | | | | PDT | | results section. | + +--------+ + + + | RETICULOCYTE COUNT | Routin | 03/23/2018 | | Results for this | | | e | 4:41 PM | | procedure are in the | | | | PDT | | results section. | + +--------+ + + + | RBC MORPHOLOGY | Routin | 03/23/2018 | | Results for this | | | e | 4:41 PM | | procedure are in the | | | | PDT | | results section. | + +--------+ + + + | CBC AND AUTO DIFF | Routin | 03/23/2018 | | Results for this | | | e | 4:41 PM | | procedure are in the | | | | PDT | | results section. | + +--------+ + + + | CBC, WITH | Routin | 03/23/2018 | | Results for this | | DIFFERENTIAL | e | 4:41 PM | | procedure are in the | | | | PDT | | results section. | + +--------+ + + + | RETICULOCYTE COUNT, | Routin | 03/23/2018 | | Results for this | | BLOOD | e | 4:41 PM | | procedure are in the | | | | PDT | | results section. | + +--------+ + + + | SEDIMENTATION RATE | Routin | 03/23/2018 | | Results for this | | | e | 4:41 PM | | procedure are in the | | | | PDT | | results section. | + +--------+ + + + | ANTIBODY SCREEN | Routin | 03/23/2018 | | Results for this | | | e | 4:41 PM | | procedure are in the | | | | PDT | | results section. | + +--------+ + + + | TYPE AND SCREEN | Routin | 03/23/2018 | | Results for this | | | e | 4:41 PM | | procedure are in the | | | | PDT | | results section. | + +--------+ + + + | ABO & RH TYPE | Routin | 03/23/2018 | | Results for this | | | e | 4:41 PM | | procedure are in the | | | | PDT | | results section. | + +--------+ + + + | CULTURE, BLOOD BACTI | Routin | 03/23/2018 | | Results for this | | & YEAST [facility] | e | 4:40 PM | | procedure are in the | | | | PDT | | results section. | + +--------+ + + + | CULTURE, BLOOD BACTI | Routin | 03/23/2018 | | Results for this | | & YEAST | e | 4:40 PM | | procedure are in the | | | | PDT | | results section. | + +--------+ + + + | CULTURE, BLOOD BACTI | Routin | 03/23/2018 | | Results for this | | & YEAST [facility] | e | 4:21 PM | | procedure are in the | | | | PDT | | results section. | + +--------+ + + + | CULTURE, BLOOD BACTI | Routin | 03/23/2018 | | Results for this | | & YEAST | e | 4:21 PM | | procedure are in the | | | | PDT | | results section. | + +--------+ + + + | X-RAY KNEE 2 VIEWS | Routin | 03/23/2018 | | Results for this | | LEFT | e | 3:55 PM | | procedure are in the | | | | PDT | | results section. | + +--------+ + + + documented in this encounter Results BASIC METABOLIC SET (NA, K, CL, TCO2, BUN, CR, GLU, CA) (04/01/2018 4:41 AM PDT) + +---------+ + + + | Component | Value | Ref Range | Performed | Pathologist | | | | | At | Signature | + +---------+ + + + | GLUCOSE, | 135 (H) | 70 - 99 mg/dL | [facility] | | | PLASMA | | | LABORATORY | | | (LAB) | | | SERVICES, | | | | | | CORE | | + +---------+ + + + | BUN, PLASMA | 10 | 6 - 20 mg/dL | [facility] | | | (LAB) | | | LABORATORY | | | | | | SERVICES, | | | | | | CORE | | + +---------+ + + + | CREATININE | 0.63 | 0.60 - 1.10 | [facility] | | | PLASMA | | mg/dL | LABORATORY | | | (LAB) | | | SERVICES, | | | | | | CORE | | + +---------+ + + + | EGFR | >60 | >60 mL/min | [facility] | | | - | | | LABORATORY | | | MAURITIAN | | | SERVICES, | | | | | | CORE | | + +---------+ + + + | EGFR NON | >60 | >60 mL/min | [facility] | | | -[place] | | | LABORATORY | | | RICAN | | | SERVICES, | | | | | | CORE | | + +---------+ + + + | SODIUM, | 140 | 136 - 145 | [facility] | | | PLASMA | | mmol/L | LABORATORY | | | (LAB) | | | SERVICES, | | | | | | CORE | | + +---------+ + + + | POTASSIUM, | 4.2 | 3.4 - 5.0 | [facility] | | | PLASMA | | mmol/L | LABORATORY | | | (LAB) | | | SERVICES, | | | | | | CORE | | + +---------+ + + + | CHLORIDE, | 107 | 97 - 108 mmol/L | [facility] | | | PLASMA | | | LABORATORY | | | (LAB) | | | SERVICES, | | | | | | CORE | | + +---------+ + + + | TOTAL CO2, | 28 | 21 - 32 mmol/L | [facility] | | | PLASMA | | | LABORATORY | | | (LAB) | | | SERVICES, | | | | | | CORE | | + +---------+ + + + | CALCIUM, | 8.1 (L) | 8.6 - 10.2 | [facility] | | | PLASMA | | mg/dL | LABORATORY | | | (LAB) | | | SERVICES, | | | | | | CORE | | + +---------+ + + + | ANION GAP | 5 | 4 - 11 mmol/L | [facility] | | | | | | LABORATORY | | | | | | SERVICES, | | | | | | CORE | | + +---------+ + + + | POTASSIUM | No Hemo | | [facility] | | | CMNT | | | LABORATORY | | | | | | SERVICES, | | | | | | CORE | | + +---------+ + + + + + | Specimen | + + | Blood | + + + + + | Narrative | Performed At | + + + | GFR is estimated using the MDRD equation recommended by the | [facility] | | National Kidney Disease Education Program. Estimated GFR | LABORATORY | | Interpretive Information: <60 mL/min/1.73 sq | SERVICES, CORE | | m Chronic Kidney Disease <15 mL/min/1.73 | | | sq m Kidney Failure Estimated GFR greater | | | that 60 mL/min/1.73 sq m is of limited clinical value. The MDRD | | | equation is not valid in the following situations: - Patients under | | | 18 years of age - Severe malnutrition or obesity - Vegetarian diet | | | - Rapidly changing kidney function - Amputees, paraplegics, or other | | | muscle-wasting diseses | | + + + + + + + + | Performing | Address | City/State/Zipcode | Phone Number | | Organization | | | | + + + + + | [facility] | [address] | [place] [address] | | | [facility] | [address] | | | + + + + + RBC MORPHOLOGY (04/01/2018 4:40 AM PDT) + + + + + + | Component | Value | Ref Range | Performed | Pathologist | | | | | At | Signature | + + + + + + | ANISOCYTOSI | 1+(10-25cells/HPF) | | [facility] | | | S | | | LABORATORY | | | | | | SERVICES, | | | | | | CORE | | + + + + + + + + | Specimen | + + | Blood | + + + + + + + | Performing | Address | City/State/Zipcode | Phone Number | | Organization | | | | + + + + + | [facility] | [address] | [place] [address] | | | SERVICES, CORE | [address] | | | + + + + + MANUAL DIFFERENTIAL (04/01/2018 4:40 AM PDT) + + + + + + | Component | Value | Ref Range | Performed | Pathologist | | | | | At | Signature | + + + + + + | NEUTROPHIL | 75.0 (H) | 50.0 - 70.0 % | [facility] | | | % | | | LABORATORY | | | | | | SERVICES, | | | | | | CORE | | + + + + + + | LYMPHOCYTE | 12.9 (L) | 18.0 - 42.0 % | [facility] | | | % | | | LABORATORY | | | | | | SERVICES, | | | | | | CORE | | + + + + + + | MONOCYTE % | 7.8 | 3.5 - 9.0 % | [facility] | | | | | | LABORATORY | | | | | | SERVICES, | | | | | | CORE | | + + + + + + | EOSINOPHIL | 0.0 (L) | 1.0 - 3.0 % | [facility] | | | % | | | LABORATORY | | | | | | SERVICES, | | | | | | CORE | | + + + + + + | BASOPHIL % | 1.7 | 0.0 - 2.0 % | [facility] | | | | | | LABORATORY | | | | | | SERVICES, | | | | | | CORE | | + + + + + + | IG% | 2.6 (H)Comment: | 0.0 - 1.0 % | [facility] | | | | Increased immature | | LABORATORY | | | | granulocytes(IG)define a | | SERVICES, | | | | left shift.IGs include | | CORE | | | | metamyelocytes, | | | | | | myelocytes and | | | | | | promyelocytes. Bands are | | | | | | included in the | | | | | | neutrophil count, not | | | | | | the IG count, except in | | | | | | neonates <=60 days old | | | | | | where bands are reported | | | | | | in a manual diff. | | | | + + + + + + | NEUTROPHIL | 8.21 (H) | 1.80 - 7.70 | [facility] | | | # | | K/cu mm | LABORATORY | | | | | | SERVICES, | | | | | | CORE | | + + + + + + | LYMPHOCYTE | 1.41 | 1.00 - 4.80 | [facility] | | | # | | K/cu mm | LABORATORY | | | | | | SERVICES, | | | | | | CORE | | + + + + + + | MONOCYTE # | 0.85 | 0.10 - 0.90 | [facility] | | | | | K/cu mm | LABORATORY | | | | | | SERVICES, | | | | | | CORE | | + + + + + + | EOSINOPHIL | 0.00 | 0.00 - 0.50 | [facility] | | | # | | K/cu mm | LABORATORY | | | | | | SERVICES, | | | | | | CORE | | + + + + + + | BASOPHIL # | 0.19 (H) | 0.00 - 0.10 | [facility] | | | | | K/cu mm | LABORATORY | | | | | | SERVICES, | | | | | | CORE | | + + + + + + | IG# | 0.28 (H) | 0.00 - 0.10 | [facility] | | | | | K/cu mm | LABORATORY | | | | | | SERVICES, | | | | | | CORE | | + + + + + + + + | Specimen | + + | Blood | + + + + + | Narrative | Performed At | + + + | New pediatric reference ranges for Lymphocyte % in effect February 13, | [facility] | | 2018. Increased immature granulocytes(IG)define a left shift.IGs | LABORATORY | | include metamyelocytes, myelocytes and promyelocytes. Bands are | SERVICES, CORE | | included in the neutrophil count, not the IG count, except in neonates | | | <=60 days old where bands are reported in a manual diff. | | + + + + + + + + | Performing | Address | City/State/Zipcode | Phone Number | | Organization | | | | + + + + + | [facility] | [address] | [place] [address] | | | SERVICES, CORE | [address] | | | + + + + + CBC AND AUTO DIFF (04/01/2018 4:40 AM PDT) + + + + + + | Component | Value | Ref Range | Performed | Pathologist | | | | | At | Signature | + + + + + + | WHITE CELL | 10.94 (H) | 3.50 - 10.80 | [facility] | | | COUNT | | K/cu mm | LABORATORY | | | | | | SERVICES, | | | | | | CORE | | + + + + + + | RED CELL | 2.85 (L) | 4.00 - 5.20 | [facility] | | | COUNT | | M/cu mm | LABORATORY | | | | | | SERVICES, | | | | | | CORE | | + + + + + + | HEMOGLOBIN | 8.7 (L) | 12.0 - 16.0 | [facility] | | | | | g/dL | LABORATORY | | | | | | SERVICES, | | | | | | CORE | | + + + + + + | HEMATOCRIT | 27.1 (L) | 36.0 - 46.0 % | [facility] | | | | | | LABORATORY | | | | | | SERVICES, | | | | | | CORE | | + + + + + + | MCV | 95.1 | 80.0 - 100.0 fL | [facility] | | | | | | LABORATORY | | | | | | SERVICES, | | | | | | CORE | | + + + + + + | MCHC | 32.1 | 32.0 - 36.0 | [facility] | | | | | g/dL | LABORATORY | | | | | | SERVICES, | | | | | | CORE | | + + + + + + | RDW SD | 52.4 (H) | 35.1 - 46.3 fL | [facility] | | | | | | LABORATORY | | | | | | SERVICES, | | | | | | CORE | | + + + + + + | PLATELET | 238 | 150 - 400 K/cu | [facility] | | | COUNT | | mm | LABORATORY | | | | | | SERVICES, | | | | | | CORE | | + + + + + + | MPV | 10.0 | 9.7 - 12.3 fL | [facility] | | | | | | LABORATORY | | | | | | SERVICES, | | | | | | CORE | | + + + + + + | NRBC% | 0.6 (H) | 0.0 - 0.3 % | [facility] | | | | | | LABORATORY | | | | | | SERVICES, | | | | | | CORE | | + + + + + + | NRBC# | 0.07 (H) | 0.00 - 0.02 | [facility] | | | | | K/cu mm | LABORATORY | | | | | | SERVICES, | | | | | | CORE | | + + + + + + + + | Specimen | + + | Blood | + + + + + | Narrative | Performed At | + + + | New reference ranges for MCV, MCHC, PLT, IG% and IG# effective | [facility] | | 01/09/2018 | LABORATORY | | | SERVICES, CORE | + + + + + + + + | Performing | Address | City/State/Zipcode | Phone Number | | Organization | | | | + + + + + | [facility] | [address] | [place] [address] | | | SERVICES, [place] | [address] | | | + + + + + RETICULOCYTE COUNT (04/01/2018 4:40 AM PDT) + + + + + + | Component | Value | Ref Range | Performed | Pathologist | | | | | At | Signature | + + + + + + | RETICULOCYT | 6.8 (H) | 0.5 - 1.5 % | [facility] | | | E COUNT | | | LABORATORY | | | | | | SERVICES, | | | | | | CORE | | + + + + + + | RETIC | 194.4 (H) | 10.0 - 90.0 | [facility] | | | ABSOLUTE # | | K/cu mm | LABORATORY | | | | | | SERVICES, | | | | | | CORE | | + + + + + + + + | Specimen | + + | Blood | + + + + + + + | Performing | Address | City/State/Zipcode | Phone Number | | Organization | | | | + + + + + | [facility] | [address] | [place] [address] | | | SERVICES, CORE | [address] | | | + + + + + CT LOWER EXTREMITY BILATERAL W CONTRAST (03/31/2018 5:09 PM PDT) + + | Specimen | + + | | + + + + + | Narrative | Performed At | + + + | EXAM: CT EXT LWR BILAT W CONTRAST HISTORY: 52-year-old female | [facility] | | with history of left foot sarcoma status post chemotherapy and left | RADIOLOGY VOICE | | below-knee amputation complicated by stump infection status post | RECOGNITION 2 | | irrigation, debridement, and revision of BKA on 03/27/2018. Now with | | | unexplained anemia concerning for occult hemorrhage. COMPARISON: | | | Left knee radiographs from 03/23/2019. TECHNIQUE: Axial CT images | | | of bilateral lower extremities were acquired. Sagittal and coronal | | | reformations were completed. Iodinated IV contrast was | | | administered. FINDINGS: The patient has a left [id number] | | | amputation. A surgical drain is present at the distal aspect of the | | | stump. The underlying bones are intact, without fracture, focal | | | destruction, or aggressive periosteal reaction. There is mild skin | | | thickening of the left lower extremity stump, with a small amount of | | | subcutaneous edema. No fluid collections are visualized. There is | | | anasarca with mild subcutaneous edema throughout the right lower | | | extremity as well as in the visualized pelvis and lower abdomen. | | | Several screw tracts are noted in the right talus, with a small amount | | | of residual metallic material in one of the tracts. There is mild | | | midfoot and hindfoot arthrosis, with spurring and joint space | | | narrowing involving the talonavicular, navicular-cuneiform, and | | | calcaneal-cuneiform joints. No fracture is seen in the right lower | | | extremity. An IUD is positioned within the uterine cavity. | | | Visualized intra-abdominal and pelvic contents are otherwise | | | unremarkable. IMPRESSION: 1. Expected postsurgical changes of | | | left below the knee amputation revision. 2. No CT evidence for | | | osteomyelitis. No hematoma, abscess, or other focal fluid collection | | | visualized. I have personally reviewed the images and, if | | | necessary, edited the report. I agree with the report as now | | | presented. Final signature: Helen Parra MD 04/01/2018 | | | 4:58 PM Preliminary: Helder Romano MD 04/01/2018 10:01 AM | | | Dictation initiated: Helder Romano MD 03/31/2018 5:16 PM | | + + + + + | Procedure Note | + + | Service Account, Radiant Res In Interface - 04/01/2018 4:59 PM PDT EXAM: CT EXT LWR | | BILAT W CONTRAST HISTORY: 52-year-old female with history of left foot sarcoma status | | post chemotherapy and left below-knee amputation complicated by stump infection status | | post irrigation, debridement, and revision of BKA on 03/27/2018. Now with unexplained | | anemia concerning for occult hemorrhage. COMPARISON: Left knee radiographs from | | 03/23/2019. TECHNIQUE: Axial CT images of bilateral lower extremities were acquired. | | Sagittal and coronal reformations were completed. Iodinated IV contrast was | | administered. FINDINGS: The patient has a left [id number] amputation. A surgical | | drain is present at the distal aspect of the stump. The underlying bones are intact, | | without fracture, focal destruction, or aggressive periosteal reaction. There is mild | | skin thickening of the left lower extremity stump, with a small amount of subcutaneous | | edema. No fluid collections are visualized. There is anasarca with mild subcutaneous | | edema throughout the right lower extremity as well as in the visualized pelvis and lower | | abdomen. Several screw tracts are noted in the right talus, with a small amount of | | residual metallic material in one of the tracts. There is mild midfoot and hindfoot | | arthrosis, with spurring and joint space narrowing involving the talonavicular, | | navicular-cuneiform, and calcaneal-cuneiform joints. No fracture is seen in the right | | lower extremity. An IUD is positioned within the uterine cavity. Visualized | | intra-abdominal and pelvic contents are otherwise unremarkable. IMPRESSION: 1. Expected | | postsurgical changes of left below the knee amputation revision. 2. No CT evidence for | | osteomyelitis. No hematoma, abscess, or other focal fluid collection visualized. I have | | personally reviewed the images and, if necessary, edited the report. I agree with the | | report as now presented. Final signature: Helen Parra MD 04/01/2018 4:58 PM | | Preliminary: Helder Romano MD 04/01/2018 10:01 AM Dictation initiated: Helder Romano MD | | 03/31/2018 5:16 PM | | | |I have personally reviewed the images and, if necessary, edited the report. I agree with th e report as now presented. | | | |Final signature: Helen Parra MD 04/01/2018 4:58 PM | |Preliminary: Helder Romano MD 04/01/2018 10:01 AM | |Dictation initiated: Helder Romano MD 03/31/2018 5:16 PM | + + + +---------+ + + | Performing | Address | City/State/Zipcode | Phone Number | | Organization | | | | + +---------+ + + | [facility] | | | | | VOICE RECOGNITION 2 | | | | + +---------+ + + CT ABDOMEN AND PELVIS W IV CONTRAST (03/31/2018 5:08 PM PDT) + + | Specimen | + + | | + + + + + | Narrative | Performed At | + + + | EXAM: CT of the abdomen and pelvis WITH intravenous contrast. 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 unexplained progression of | RECOGNITION 2 | | anemia concerning for possible occult hemorrhage. COMPARISON: None | | | available. TECHNIQUE: CT of the abdomen and pelvis with | | | non-ionic iodinated intravenous contrast. Coronal and sagittal | | | reformats were generated and reviewed. FINDINGS: LOWER THORAX: | | | Unremarkable. LIVER: Mild periportal edema and gallbladder wall | | | edema is nonspecific, possibly reflecting fluid overload or retention. | | | Otherwise unremarkable. BILIARY: No biliary dilatation. PANCREAS: | | | Unremarkable. SPLEEN: Unremarkable. ADRENALS: Unremarkable. | | | KIDNEYS/URETERS: Unremarkable. PELVIC ORGANS/BLADDER: IUD noted in | | | the uterus. GI TRACT: Unremarkable. PERITONEUM: No free air or | | | fluid. LYMPH NODES: No lymphadenopathy. VESSELS: Unremarkable. | | | BONES AND SOFT TISSUES: Unremarkable. IMPRESSION: | | | Unremarkable. No hemorrhage identified. I have personally reviewed | | | the images and, if necessary, edited the report. I agree with the | | | report as now presented. Final signature: Derrick Ledbetter | | | 03/31/2018 5:18 PM Preliminary: Derrick Ledbetter MD | | | Dictation initiated: Derrick Ledbetter MD 03/31/2018 5:15 PM | | + + + + + | Procedure Note | + + | Service Account, Radiant Res In Interface - 03/31/2018 5:20 PM PDT EXAM: CT of the | | abdomen and pelvis WITH intravenous contrast. HISTORY: 32F with L foot sarcoma s/p | | chemo and L BKA admit for stump infection now S/p I&D found to have Osteo. unexplained | | progression of anemia concerning for possible occult hemorrhage. COMPARISON: None | | available. TECHNIQUE: CT of the abdomen and pelvis with non-ionic iodinated intravenous | | contrast. Coronal and sagittal reformats were generated and reviewed. FINDINGS: LOWER | | THORAX: Unremarkable. LIVER: Mild periportal edema and gallbladder wall edema is | | nonspecific, possibly reflecting fluid overload or retention. Otherwise | | unremarkable.BILIARY: No biliary dilatation.PANCREAS: Unremarkable. SPLEEN: | | Unremarkable.ADRENALS: Unremarkable.KIDNEYS/URETERS: Unremarkable.PELVIC ORGANS/BLADDER: | | IUD noted in the uterus. GI TRACT: Unremarkable.PERITONEUM: No free air or fluid. LYMPH | | NODES: No lymphadenopathy.VESSELS: Unremarkable. BONES AND SOFT TISSUES: Unremarkable. | | IMPRESSION: Unremarkable. No hemorrhage identified. I have personally reviewed the | | images and, if necessary, edited the report. I agree with the report as now presented. | | Final signature: Derrick Ledbetter MD 03/31/2018 5:18 PM Preliminary: Derrick Ledbetter | | Dictation initiated: Derrick Ledbetter MD 03/31/2018 5:15 PM | |SPLEEN: Unremarkable. | |ADRENALS: Unremarkable. | |KIDNEYS/URETERS: Unremarkable. | |PELVIC ORGANS/BLADDER: IUD noted in the uterus. | | | |GI TRACT: Unremarkable. | |PERITONEUM: No free air or fluid. | | | |LYMPH NODES: No lymphadenopathy. | |VESSELS: Unremarkable. | | | |BONES AND SOFT TISSUES: Unremarkable. | | | |IMPRESSION: | | | |Unremarkable. No hemorrhage identified. | | | |I have personally reviewed the images and, if necessary, edited the report. I agree with e report as now presented. | | | |Final signature: Derrick Ledbetter MD 03/31/2018 5:18 PM | |Preliminary: Derrick Ledbetter MD | |Dictation initiated: Derrick Ledbetter MD 03/31/2018 5:15 PM | + + + +---------+ + + | Performing | Address | City/State/Zipcode | Phone Number | | Organization | | | | + +---------+ + + | [facility] | | | | | VOICE RECOGNITION 2 | | | | + +---------+ + + CBC (HEMOGRAM) ONLY (03/31/2018 1:57 PM PDT) + + + + + + | Component | Value | Ref Range | Performed | Pathologist | | | | | At | Signature | + + + + + + | WHITE CELL | 11.10 (H) | 3.50 - 10.80 | [facility] | | | COUNT | | K/cu mm | LABORATORY | | | | | | SERVICES, | | | | | | CORE | | + + + + + + | RED CELL | 3.31 (L) | 4.00 - 5.20 | [facility] | | | COUNT | | M/cu mm | LABORATORY | | | | | | SERVICES, | | | | | | CORE | | + + + + + + | HEMOGLOBIN | 10.2 (L) | 12.0 - 16.0 | [facility] | | | | | g/dL | LABORATORY | | | | | | SERVICES, | | | | | | CORE | | + + + + + + | HEMATOCRIT | 31.3 (L) | 36.0 - 46.0 % | [facility] | | | | | | LABORATORY | | | | | | SERVICES, | | | | | | CORE | | + + + + + + | MCV | 94.6 | 80.0 - 100.0 fL | [facility] | | | | | | LABORATORY | | | | | | SERVICES, | | | | | | CORE | | + + + + + + | MCHC | 31.9 (L) | 32.0 - 36.0 | [facility] | | | | | g/dL | LABORATORY | | | | | | SERVICES, | | | | | | CORE | | + + + + + + | RDW SD | 51.3 (H) | 35.1 - 46.3 fL | [facility] | | | | | | LABORATORY | | | | | | SERVICES, | | | | | | CORE | | + + + + + + | PLATELET | 220 | 150 - 400 K/cu | [facility] | | | COUNT | | mm | LABORATORY | | | | | | SERVICES, | | | | | | CORE | | + + + + + + | MPV | 10.0 | 9.7 - 12.3 fL | [facility] | | | | | | LABORATORY | | | | | | SERVICES, | | | | | | CORE | | + + + + + + | NRBC% | 2.0 (H) | 0.0 - 0.3 % | [facility] | | | | | | LABORATORY | | | | | | SERVICES, | | | | | | CORE | | + + + + + + | NRBC# | 0.22 (H) | 0.00 - 0.02 | [facility] | | | | | K/cu mm | LABORATORY | | | | | | SERVICES, | | | | | | CORE | | + + + + + + + + | Specimen | + + | Blood | + + + + + | Narrative | Performed At | + + + | New reference ranges for MCV, MCHC, PLT, IG% and IG# effective | [facility] | | 01/09/2018 Collect after 2 units have completed transfusion. | LABORATORY | | | SERVICES, CORE | + + + + + + + + | Performing | Address | City/State/Zipcode | Phone Number | | Organization | | | | + + + + + | [facility] | [address] | [place] [address] | | | SERVICES, CORE | [address] | | | + + + + + C3 CRISTIANO (03/31/2018 11:33 AM PDT) + + + + + + | Component | Value | Ref Range | Performed | Pathologist | | | | | At | Signature | + + + + + + | CRISTIANO C3 | Negative | | [facility] | | | | | | LABORATORY | | | | | | SERVICES, | | | | | | TRANSFUSION | | | | | | MEDICINE | | + + + + + + + + | Specimen | + + | Blood | + + + + + + + | Performing | Address | City/State/Zipcode | Phone Number | | Organization | | | | + + + + + | [facility] | [address] | [place] [address] | | | SERVICES, | [address] | | | | TRANSFUSION MEDICINE | | | | + + + + + COMPLETE METABOLIC SET (NA,K,CL,CO2,BUN,CREAT,GLUC,CA,AST,ALT,BILI TOTAL,ALK PHOS,ALB,PROT TOTAL) (03/31/2018 11:33 AM PDT) + +---------+ + + + | Component | Value | Ref Range | Performed | Pathologist | | | | | At | Signature | + +---------+ + + + | GLUCOSE, | 90 | 70 - 99 mg/dL | [facility] | | | PLASMA | | | LABORATORY | | | (LAB) | | | SERVICES, | | | | | | CORE | | + +---------+ + + + | BUN, PLASMA | 13 | 6 - 20 mg/dL | [facility] | | | (LAB) | | | LABORATORY | | | | | | SERVICES, | | | | | | CORE | | + +---------+ + + + | CREATININE | 0.70 | 0.60 - 1.10 | [facility] | | | PLASMA | | mg/dL | LABORATORY | | | (LAB) | | | SERVICES, | | | | | | CORE | | + +---------+ + + + | EGFR | >60 | >60 mL/min | [facility] | | | - | | | LABORATORY | | | MAURITIAN | | | SERVICES, | | | | | | CORE | | + +---------+ + + + | EGFR NON | >60 | >60 mL/min | [facility] | | | -[place] | | | LABORATORY | | | RICAN | | | SERVICES, | | | | | | CORE | | + +---------+ + + + | SODIUM, | 145 | 136 - 145 | [facility] | | | PLASMA | | mmol/L | LABORATORY | | | (LAB) | | | SERVICES, | | | | | | CORE | | + +---------+ + + + | POTASSIUM, | 4.2 | 3.4 - 5.0 | [facility] | | | PLASMA | | mmol/L | LABORATORY | | | (LAB) | | | SERVICES, | | | | | | CORE | | + +---------+ + + + | CHLORIDE, | 111 (H) | 97 - 108 mmol/L | [facility] | | | PLASMA | | | LABORATORY | | | (LAB) | | | SERVICES, | | | | | | CORE | | + +---------+ + + + | TOTAL CO2, | 29 | 21 - 32 mmol/L | [facility] | | | PLASMA | | | LABORATORY | | | (LAB) | | | SERVICES, | | | | | | CORE | | + +---------+ + + + | CALCIUM, | 8.4 (L) | 8.6 - 10.2 | [facility] | | | PLASMA | | mg/dL | LABORATORY | | | (LAB) | | | SERVICES, | | | | | | CORE | | + +---------+ + + + | CALCIUM(ALB | 9.5 | 8.6 - 10.2 | [facility] | | | CORRECTED) | | mg/dL | LABORATORY | | | | | | SERVICES, | | | | | | CORE | | + +---------+ + + + | BILIRUBIN | 0.2 (L) | 0.3 - 1.2 mg/dL | [facility] | | | TOTAL | | | LABORATORY | | | | | | SERVICES, | | | | | | CORE | | + +---------+ + + + | TOTAL | 5.3 (L) | 6.4 - 8.2 g/dL | [facility] | | | PROTEIN, | | | LABORATORY | | | PLASMA | | | SERVICES, | | | (LAB) | | | CORE | | + +---------+ + + + | ALBUMIN, | 2.6 (L) | 3.5 - 4.7 g/dL | [facility] | | | PLASMA | | | LABORATORY | | | (LAB) | | | SERVICES, | | | | | | CORE | | + +---------+ + + + | ALK PHOS | 55 | 42 - 98 U/L | [facility] | | | | | | LABORATORY | | | | | | SERVICES, | | | | | | CORE | | + +---------+ + + + | AST(SGOT) | 20 | <=41 U/L | [facility] | | | | | | LABORATORY | | | | | | SERVICES, | | | | | | CORE | | + +---------+ + + + | ALT (SGPT) | 25 | <=60 U/L | [facility] | | | | | | LABORATORY | | | | | | SERVICES, | | | | | | CORE | | + +---------+ + + + | ANION GAP | 5 | 4 - 11 mmol/L | [facility] | | | | | | LABORATORY | | | | | | SERVICES, | | | | | | CORE | | + +---------+ + + + | ANION | 8 | 4 - 11 mmol/L | [facility] | | | GAP(ALB | | | LABORATORY | | | CORRECTED) | | | SERVICES, | | | | | | CORE | | + +---------+ + + + | POTASSIUM | No Hemo | | [facility] | | | CMNT | | | LABORATORY | | | | | | SERVICES, | | | | | | CORE | | + +---------+ + + + | BILI T CMNT | No Hemo | | [facility] | | | | | | LABORATORY | | | | | | SERVICES, | | | | | | CORE | | + +---------+ + + + | AST CMNT | No Hemo | | [facility] | | | | | | LABORATORY | | | | | | SERVICES, | | | | | | CORE | | + +---------+ + + + + + | Specimen | + + | Blood | + + + + + | Narrative | Performed At | + + + | GFR is estimated using the MDRD equation recommended by the | [facility] | | National Kidney Disease Education Program. Estimated GFR | LABORATORY | | Interpretive Information: <60 mL/min/1.73 sq | SERVICES, CORE | | m Chronic Kidney Disease <15 mL/min/1.73 | | | sq m Kidney Failure Estimated GFR greater | | | that 60 mL/min/1.73 sq m is of limited clinical value. The MDRD | | | equation is not valid in the following situations: - Patients under | | | 18 years of age - Severe malnutrition or obesity - Vegetarian diet | | | - Rapidly changing kidney function - Amputees, paraplegics, or other | | | muscle-wasting diseses | | + + + + + + + + | Performing | Address | City/State/Zipcode | Phone Number | | Organization | | | | + + + + + | [facility] | [address] | [place] [address] | | | SERVICES, CORE | [address] | | | + + + + + COAGULOPATHY PANEL (INR,APTT,FIBRINOGEN) (03/31/2018 11:33 AM PDT) + + + + + + | Component | Value | Ref Range | Performed | Pathologist | | | | | At | Signature | + + + + + + | INR | 1.03 | 0.90 - 1.20 INR | [facility] | | | | | | LABORATORY | | | | | | SERVICES, | | | | | | CORE | | + + + + + + | APTT | 29.5 | 26.0 - 36.0 | [facility] | | | | | seconds | LABORATORY | | | | | | SERVICES, | | | | | | CORE | | + + + + + + | FIBRINOGEN | 471 (H)Comment: New | 150 - 450 mg/dL | [facility] | | | LEVEL | Reference Ranges as of | | LABORATORY | | | | 01/06/2018. | | SERVICES, | | | | | | CORE | | + + + + + + + + | Specimen | + + | Blood | + + + + + | Narrative | Performed At | + + + | INR Therapeutic ranges for full anticoagulation: INR for | [facility] | | Venous Thromboembolism (2.0 - 3.0) INR | LABORATORY | | INR for most patients with mech. valves (2.5 - 3.5) INR | SERVICES, CORE | | APTT values for monitoring heparin therapy may be affected by | | | specimens processed >1 hour after collection. APTT Therapeutic | | | Range: (75 - 120) sec | | | Heparin levels of 0.35 - 0.7 U/mL | | + + + + + + + + | Performing | Address | City/State/Zipcode | Phone Number | | Organization | | | | + + + + + | [facility] | [address] | [place] [address] | | | SERVICES, CORE | [address] | | | + + + + + CRISTIANO IGG (03/31/2018 11:33 AM PDT) + + + + + + | Component | Value | Ref Range | Performed | Pathologist | | | | | At | Signature | + + + + + + | BRIE, IGG | Negative | | [facility] | | | | | | LABORATORY | | | | | | SERVICES, | | | | | | TRANSFUSION | | | | | | MEDICINE | | + + + + + + + + | Specimen | + + | Blood | + + + + + + + | Performing | Address | City/State/Zipcode | Phone Number | | Organization | | | | + + + + + | [facility] | [address] | [place] [address] | | | SERVICES, | [address] | | | | TRANSFUSION MEDICINE | | | | + + + + + HAPTOGLOBIN (03/31/2018 11:33 AM PDT) + +-------+ + + + | Component | Value | Ref Range | Performed | Pathologist | | | | | At | Signature | + +-------+ + + + | HAPTOGLOBIN | 187 | 30 - 200 mg/dL | [facility] | | | | | | LABORATORY | | | | | | SERVICES, | | | | | | CORE | | + +-------+ + + + + + | Specimen | + + | Blood | + + + + + + + | Performing | Address | City/State/Zipcode | Phone Number | | Organization | | | | + + + + + | [facility] | [address] | [place] [address] | | | SERVICES, CORE | [address] | | | + + + + + LDH TOTAL, PLASMA (03/31/2018 11:33 AM PDT) + +---------+ + + + | Component | Value | Ref Range | Performed | Pathologist | | | | | At | Signature | + +---------+ + + + | LD TOTAL, | 281 (H) | <=250 U/L | [facility] | | | PLASMA | | | LABORATORY | | | | | | SERVICES, | | | | | | CORE | | + +---------+ + + + | LD CMNT | No Hemo | | [facility] | | | | | | LABORATORY | | | | | | SERVICES, | | | | | | CORE | | + +---------+ + + + + + | Specimen | + + | Blood | + + + + + + + | Performing | Address | City/State/Zipcode | Phone Number | | Organization | | | | + + + + + | [facility] | [address] | [place] [address] | | | SERVICES, CORE | [address] | | | + + + + + PRODUCT - RED CELLS LEUKOREDUCED (03/31/2018 5:58 AM PDT) + + + + + + | Component | Value | Ref Range | Performed | Pathologist | | | | | At | Signature | + + + + + + | PRODUCT | -1 RED BLOOD CELL | | [facility] | | | DESCRIPTION | ADENINE-SALINE ADDED | | LABORATORY | | | | LEUKOCYTE | | SERVICES, | | | | | | TRANSFUSION | | | | | | MEDICINE | | + + + + + + | PRODUCT | [id number] | | [facility] | | | UNIT # | | | LABORATORY | | | | | | SERVICES, | | | | | | TRANSFUSION | | | | | | MEDICINE | | + + + + + + | UNIT ABO | A | | [facility] | | | | | | LABORATORY | | | | | | SERVICES, | | | | | | TRANSFUSION | | | | | | MEDICINE | | + + + + + + | UNIT RH | POS | | [facility] | | | | | | LABORATORY | | | | | | SERVICES, | | | | | | TRANSFUSION | | | | | | MEDICINE | | + + + + + + | STATUS OF | Presumed Transfused | | [facility] | | | UNIT | | | LABORATORY | | | | | | SERVICES, | | | | | | TRANSFUSION | | | | | | MEDICINE | | + + + + + + | EXPIRATION | [id number] | | [facility] | | | DATE | | | LABORATORY | | | | | | SERVICES, | | | | | | TRANSFUSION | | | | | | MEDICINE | | + + + + + + | BLOOD TYPE | 6200 | | [facility] | | | BARCODE | | | LABORATORY | | | | | | SERVICES, | | | | | | TRANSFUSION | | | | | | MEDICINE | | + + + + + + | BLOOD | [id number] | | [facility] | | | PRODUCT | | | LABORATORY | | | CODE | | | SERVICES, | | | | | | TRANSFUSION | | | | | | MEDICINE | | + + + + + + + + | Specimen | + + | | + + + + + + + | Performing | Address | City/State/Zipcode | Phone Number | | Organization | | | | + + + + + | [facility] | [address] | [place] [address] | | | SERVICES, | [address] | | | | TRANSFUSION MEDICINE | | | | + + + + + PRODUCT - RED CELLS LEUKOREDUCED (03/31/2018 5:58 AM PDT) + + + + + + | Component | Value | Ref Range | Performed | Pathologist | | | | | At | Signature | + + + + + + | PRODUCT | -1 RED BLOOD CELL | | [facility] | | | DESCRIPTION | ADENINE-SALINE ADDED | | LABORATORY | | | | LEUKOCYTE | | SERVICES, | | | | | | TRANSFUSION | | | | | | MEDICINE | | + + + + + + | PRODUCT | [id number] | | [facility] | | | UNIT # | | | LABORATORY | | | | | | SERVICES, | | | | | | TRANSFUSION | | | | | | MEDICINE | | + + + + + + | UNIT ABO | A | | [facility] | | | | | | LABORATORY | | | | | | SERVICES, | | | | | | TRANSFUSION | | | | | | MEDICINE | | + + + + + + | UNIT RH | POS | | [facility] | | | | | | LABORATORY | | | | | | SERVICES, | | | | | | TRANSFUSION | | | | | | MEDICINE | | + + + + + + | STATUS OF | Presumed Transfused | | [facility] | | | UNIT | | | LABORATORY | | | | | | SERVICES, | | | | | | TRANSFUSION | | | | | | MEDICINE | | + + + + + + | EXPIRATION | [phone] | | [facility] | | | DATE | | | LABORATORY | | | | | | SERVICES, | | | | | | TRANSFUSION | | | | | | MEDICINE | | + + + + + + | BLOOD TYPE | 6200 | | [facility] | | | BARCODE | | | LABORATORY | | | | | | SERVICES, | | | | | | TRANSFUSION | | | | | | MEDICINE | | + + + + + + | BLOOD | [id number] | | [facility] | | | PRODUCT | | | LABORATORY | | | CODE | | | SERVICES, | | | | | | TRANSFUSION | | | | | | MEDICINE | | + + + + + + + + | Specimen | + + | | + + + + + + + | Performing | Address | City/State/Zipcode | Phone Number | | Organization | | | | + + + + + | [facility] | [address] | [place] [address] | | | SERVICES, | [address] | | | | TRANSFUSION MEDICINE | | | | + + + + + PRODUCT - RED CELLS LEUKOREDUCED (03/31/2018 5:58 AM PDT) + + + + + + | Component | Value | Ref Range | Performed | Pathologist | | | | | At | Signature | + + + + + + | PRODUCT | -1 RED BLOOD CELL | | [facility] | | | DESCRIPTION | ADENINE-SALINE ADDED | | LABORATORY | | | | LEUKOCYTE | | SERVICES, | | | | | | TRANSFUSION | | | | | | MEDICINE | | + + + + + + | PRODUCT | [id number] | | [facility] | | | UNIT # | | | LABORATORY | | | | | | SERVICES, | | | | | | TRANSFUSION | | | | | | MEDICINE | | + + + + + + | UNIT ABO | A | | [facility] | | | | | | LABORATORY | | | | | | SERVICES, | | | | | | TRANSFUSION | | | | | | MEDICINE | | + + + + + + | UNIT RH | POS | | [facility] | | | | | | LABORATORY | | | | | | SERVICES, | | | | | | TRANSFUSION | | | | | | MEDICINE | | + + + + + + | STATUS OF | Returned to Blood Bank | | [facility] | | | UNIT | | | LABORATORY | | | | | | SERVICES, | | | | | | TRANSFUSION | | | | | | MEDICINE | | + + + + + + | EXPIRATION | [id number] | | [facility] | | | DATE | | | LABORATORY | | | | | | SERVICES, | | | | | | TRANSFUSION | | | | | | MEDICINE | | + + + + + + | BLOOD TYPE | 6200 | | [facility] | | | BARCODE | | | LABORATORY | | | | | | SERVICES, | | | | | | TRANSFUSION | | | | | | MEDICINE | | + + + + + + | BLOOD | [id number] | | [facility] | | | PRODUCT | | | LABORATORY | | | CODE | | | SERVICES, | | | | | | TRANSFUSION | | | | | | MEDICINE | | + + + + + + + + | Specimen | + + | | + + + + + + + | Performing | Address | City/State/Zipcode | Phone Number | | Organization | | | | + + + + + | [facility] | [address] | [place] [address] | | | SERVICES, | [address] | | | | TRANSFUSION MEDICINE | | | | + + + + + MANUAL DIFFERENTIAL (03/31/2018 4:53 AM PDT) + + + + + + | Component | Value | Ref Range | Performed | Pathologist | | | | | At | Signature | + + + + + + | NEUTROPHIL | 79.1 (H) | 50.0 - 70.0 % | [facility] | | | % | | | LABORATORY | | | | | | SERVICES, | | | | | | CORE | | + + + + + + | LYMPHOCYTE | 7.0 (L) | 18.0 - 42.0 % | [facility] | | | % | | | LABORATORY | | | | | | SERVICES, | | | | | | CORE | | + + + + + + | MONOCYTE % | 3.5 | 3.5 - 9.0 % | [facility] | | | | | | LABORATORY | | | | | | SERVICES, | | | | | | CORE | | + + + + + + | EOSINOPHIL | 0.0 (L) | 1.0 - 3.0 % | [facility] | | | % | | | LABORATORY | | | | | | SERVICES, | | | | | | CORE | | + + + + + + | BASOPHIL % | 0.9 | 0.0 - 2.0 % | [facility] | | | | | | LABORATORY | | | | | | SERVICES, | | | | | | CORE | | + + + + + + | IG% | 8.7 (H)Comment: | 0.0 - 1.0 % | [facility] | | | | Increased immature | | LABORATORY | | | | granulocytes(IG)define a | | SERVICES, | | | | left shift.IGs include | | CORE | | | | metamyelocytes, | | | | | | myelocytes and | | | | | | promyelocytes. Bands are | | | | | | included in the | | | | | | neutrophil count, not | | | | | | the IG count, except in | | | | | | neonates <=60 days old | | | | | | where bands are reported | | | | | | in a manual diff. | | | | + + + + + + | REACTIVE | 0.9 | 0.0 - 10.0 % | [facility] | | | LYMPHS % | | | LABORATORY | | | | | | SERVICES, | | | | | | CORE | | + + + + + + | NEUTROPHIL | 13.80 (H) | 1.80 - 7.70 | [facility] | | | # | | K/cu mm | LABORATORY | | | | | | SERVICES, | | | | | | CORE | | + + + + + + | LYMPHOCYTE | 1.22 | 1.00 - 4.80 | [facility] | | | # | | K/cu mm | LABORATORY | | | | | | SERVICES, | | | | | | CORE | | + + + + + + | MONOCYTE # | 0.60 | 0.10 - 0.90 | [facility] | | | | | K/cu mm | LABORATORY | | | | | | SERVICES, | | | | | | CORE | | + + + + + + | EOSINOPHIL | 0.00 | 0.00 - 0.50 | [facility] | | | # | | K/cu mm | LABORATORY | | | | | | SERVICES, | | | | | | CORE | | + + + + + + | BASOPHIL # | 0.15 (H) | 0.00 - 0.10 | [facility] | | | | | K/cu mm | LABORATORY | | | | | | SERVICES, | | | | | | CORE | | + + + + + + | IG# | 1.52 (H) | 0.00 - 0.10 | [facility] | | | | | K/cu mm | LABORATORY | | | | | | SERVICES, | | | | | | CORE | | + + + + + + | REACTIVE | 0.15 | K/cu mm | [facility] | | | LYMPHS # | | | LABORATORY | | | | | | SERVICES, | | | | | | CORE | | + + + + + + + + | Specimen | + + | Blood | + + + + + | Narrative | Performed At | + + + | New pediatric reference ranges for Lymphocyte % in effect February 13, | [facility] | | 2018. Increased immature granulocytes(IG)define a left shift.IGs | LABORATORY | | include metamyelocytes, myelocytes and promyelocytes. Bands are | SERVICES, CORE | | included in the neutrophil count, not the IG count, except in neonates | | | <=60 days old where bands are reported in a manual diff. | | + + + + + + + + | Performing | Address | City/State/Zipcode | Phone Number | | Organization | | | | + + + + + | [facility] | [address] | [place] [address] | | | ANTONI ANGUIANO | [address] | | | + + + + + HANNAH, ADD ON (03/31/2018 4:53 AM PDT) + + | Specimen | + + | Blood | + + + + + | Narrative | Performed At | + + + | New reference ranges for MCV, MCHC, PLT, IG% and IG# effective | [facility] | | 01/09/2018 | LABORATORY | | | ANTONI ANGUIANO | + + + + + + + + | Performing | Address | City/State/Zipcode | Phone Number | | Organization | | | | + + + + + | [facility] | [address] | [place] [address] | | | SERVICES, CORE | [address] | | | + + + + + CBC (HEMOGRAM) ONLY (03/31/2018 4:53 AM PDT) + + + + + + | Component | Value | Ref Range | Performed | Pathologist | | | | | At | Signature | + + + + + + | WHITE CELL | 17.54 (H) | 3.50 - 10.80 | [facility] | | | COUNT | | K/cu mm | LABORATORY | | | | | | SERVICES, | | | | | | CORE | | + + + + + + | RED CELL | 1.56 (L) | 4.00 - 5.20 | [facility] | | | COUNT | | M/cu mm | LABORATORY | | | | | | SERVICES, | | | | | | CORE | | + + + + + + | HEMOGLOBIN | 4.9 (LL) | 12.0 - 16.0 | [facility] | | | | | g/dL | LABORATORY | | | | | | SERVICES, | | | | | | CORE | | + + + + + + | HEMATOCRIT | 15.4 (LL) | 36.0 - 46.0 % | [facility] | | | | | | LABORATORY | | | | | | SERVICES, | | | | | | CORE | | + + + + + + | MCV | 98.7 | 80.0 - 100.0 fL | [facility] | | | | | | LABORATORY | | | | | | SERVICES, | | | | | | CORE | | + + + + + + | MCHC | 31.8 (L) | 32.0 - 36.0 | [facility] | | | | | g/dL | LABORATORY | | | | | | SERVICES, | | | | | | CORE | | + + + + + + | RDW SD | 52.9 (H) | 35.1 - 46.3 fL | [facility] | | | | | | LABORATORY | | | | | | SERVICES, | | | | | | CORE | | + + + + + + | PLATELET | 269 | 150 - 400 K/cu | [facility] | | | COUNT | | mm | LABORATORY | | | | | | SERVICES, | | | | | | CORE | | + + + + + + | MPV | 10.2 | 9.7 - 12.3 fL | [facility] | | | | | | LABORATORY | | | | | | SERVICES, | | | | | | CORE | | + + + + + + | NRBC% | 2.2 (H) | 0.0 - 0.3 % | [facility] | | | | | | LABORATORY | | | | | | SERVICES, | | | | | | CORE | | + + + + + + | NRBC# | 0.39 (H) | 0.00 - 0.02 | [facility] | | | | | K/cu mm | LABORATORY | | | | | | SERVICES, | | | | | | CORE | | + + + + + + + + | Specimen | + + | Blood | + + + + + | Narrative | Performed At | + + + | New reference ranges for MCV, MCHC, PLT, IG% and IG# effective | [facility] | | 01/09/2018 | LABORATORY | | | ANTONI ANGUIANO | + + + + + + + + | Performing | Address | City/State/Zipcode | Phone Number | | Organization | | | | + + + + + | [facility] | [address] | [place] [address] | | | ANTONI ANGUIANO | [address] | | | + + + + + BASIC METABOLIC SET (NA, K, CL, TCO2, BUN, CR, GLU, CA) (03/31/2018 4:53 AM PDT) + +---------+ + + + | Component | Value | Ref Range | Performed | Pathologist | | | | | At | Signature | + +---------+ + + + | GLUCOSE, | 91 | 70 - 99 mg/dL | [facility] | | | PLASMA | | | LABORATORY | | | (LAB) | | | SERVICES, | | | | | | CORE | | + +---------+ + + + | BUN, PLASMA | 12 | 6 - 20 mg/dL | [facility] | | | (LAB) | | | LABORATORY | | | | | | SERVICES, | | | | | | CORE | | + +---------+ + + + | CREATININE | 0.67 | 0.60 - 1.10 | [facility] | | | PLASMA | | mg/dL | LABORATORY | | | (LAB) | | | SERVICES, | | | | | | CORE | | + +---------+ + + + | EGFR | >60 | >60 mL/min | [facility] | | | - | | | LABORATORY | | | MAURITIAN | | | SERVICES, | | | | | | CORE | | + +---------+ + + + | EGFR NON | >60 | >60 mL/min | [facility] | | | [facility] | | | LABORATORY | | | RICAN | | | SERVICES, | | | | | | CORE | | + +---------+ + + + | SODIUM, | 144 | 136 - 145 | [facility] | | | PLASMA | | mmol/L | LABORATORY | | | (LAB) | | | SERVICES, | | | | | | CORE | | + +---------+ + + + | POTASSIUM, | 4.3 | 3.4 - 5.0 | [facility] | | | PLASMA | | mmol/L | LABORATORY | | | (LAB) | | | SERVICES, | | | | | | CORE | | + +---------+ + + + | CHLORIDE, | 110 (H) | 97 - 108 mmol/L | [facility] | | | PLASMA | | | LABORATORY | | | (LAB) | | | SERVICES, | | | | | | CORE | | + +---------+ + + + | TOTAL CO2, | 27 | 21 - 32 mmol/L | [facility] | | | PLASMA | | | LABORATORY | | | (LAB) | | | SERVICES, | | | | | | CORE | | + +---------+ + + + | CALCIUM, | 7.9 (L) | 8.6 - 10.2 | [facility] | | | PLASMA | | mg/dL | LABORATORY | | | (LAB) | | | SERVICES, | | | | | | CORE | | + +---------+ + + + | ANION GAP | 7 | 4 - 11 mmol/L | [facility] | | | | | | LABORATORY | | | | | | SERVICES, | | | | | | CORE | | + +---------+ + + + | POTASSIUM | No Hemo | | [facility] | | | CMNT | | | LABORATORY | | | | | | SERVICES, | | | | | | CORE | | + +---------+ + + + + + | Specimen | + + | Blood | + + + + + | Narrative | Performed At | + + + | GFR is estimated using the MDRD equation recommended by the | [facility] | | National Kidney Disease Education Program. Estimated GFR | LABORATORY | | Interpretive Information: <60 mL/min/1.73 sq | SERVICES, CORE | | m Chronic Kidney Disease <15 mL/min/1.73 | | | sq m Kidney Failure Estimated GFR greater | | | that 60 mL/min/1.73 sq m is of limited clinical value. The MDRD | | | equation is not valid in the following situations: - Patients under | | | 18 years of age - Severe malnutrition or obesity - Vegetarian diet | | | - Rapidly changing kidney function - Amputees, paraplegics, or other | | | muscle-wasting diseses | | + + + + + + + + | Performing | Address | City/State/Zipcode | Phone Number | | Organization | | | | + + + + + | [facility] | [address] | [place] [address] | | | SERVICES, CORE | [address] | | | + + + + + FERRITIN (03/31/2018 4:53 AM PDT) + + + + + + | Component | Value | Ref Range | Performed | Pathologist | | | | | At | Signature | + + + + + + | FERRITIN | 322 (H)Comment: Male | 50 - 200 ng/mL | [facility] | | | | and Female >18 years: | | LABORATORY | | | | <20 | | SERVICES, | | | | ng/mL: | | CORE | | | | Consistant with iron | | | | | | deficiency 21-50 | | | | | | ng/mL: Possible | | | | | | iron deficiency | | | | | | 51-99 ng/mL: | | | | | | Iron deficiency unlikely | | | | | | unless inflammation | | | | | | present | | | | | | or | | | | | | patien | | | | | | t >65 years of age | | | | | | 100-200 ng/mL: | | | | | | Normal, not consistent | | | | | | with iron | | | | | | deficiency >200 | | | | | | ng/mL: If | | | | | | transferrin saturation | | | | | | >45%, consider | | | | | | hemochromatosis | | | | + + + + + + + + | Specimen | + + | Blood | + + + + + + + | Performing | Address | City/State/Zipcode | Phone Number | | Organization | | | | + + + + + | [facility] | [address] | [place] [address] | | | SERVICES, CORE | [address] | | | + + + + + CAPILLARY BLOOD GLUCOSE (NO CHG), POC (03/30/2018 1:30 PM PDT) + +---------+ + + + | Component | Value | Ref Range | Performed | Pathologist | | | | | At | Signature | + +---------+ + + + | BLOOD | 135 (H) | 70 - 99 mg/dL | [facility] - | | | GLUCOSE, | | | [facility] | | | POC | | | [place] | | | | | | OF CARE | | | | | | TESTS | | + +---------+ + + + + + | Specimen | + + | | + + + + + + + | Performing | Address | City/State/Zipcode | Phone Number | | Organization | | | | + + + + + | [facility] | [address] | [place], [place] | | | [facility] | [address] | [address] | | | TESTS | | | | + + + + + CBC (HEMOGRAM) ONLY (03/30/2018 6:19 AM PDT) + + + + + + | Component | Value | Ref Range | Performed | Pathologist | | | | | At | Signature | + + + + + + | WHITE CELL | 19.18 (H) | 3.50 - 10.80 | [facility] | | | COUNT | | K/cu mm | LABORATORY | | | | | | SERVICES, | | | | | | CORE | | + + + + + + | RED CELL | 2.37 (L) | 4.00 - 5.20 | [facility] | | | COUNT | | M/cu mm | LABORATORY | | | | | | SERVICES, | | | | | | CORE | | + + + + + + | HEMOGLOBIN | 7.2 (L) | 12.0 - 16.0 | [facility] | | | | | g/dL | LABORATORY | | | | | | SERVICES, | | | | | | CORE | | + + + + + + | HEMATOCRIT | 22.6 (L) | 36.0 - 46.0 % | [facility] | | | | | | LABORATORY | | | | | | SERVICES, | | | | | | CORE | | + + + + + + | MCV | 95.4 | 80.0 - 100.0 fL | [facility] | | | | | | LABORATORY | | | | | | SERVICES, | | | | | | CORE | | + + + + + + | MCHC | 31.9 (L) | 32.0 - 36.0 | [facility] | | | | | g/dL | LABORATORY | | | | | | SERVICES, | | | | | | CORE | | + + + + + + | RDW SD | 49.6 (H) | 35.1 - 46.3 fL | [facility] | | | | | | LABORATORY | | | | | | SERVICES, | | | | | | CORE | | + + + + + + | PLATELET | 195 | 150 - 400 K/cu | [facility] | | | COUNT | | mm | LABORATORY | | | | | | SERVICES, | | | | | | CORE | | + + + + + + | MPV | 10.6 | 9.7 - 12.3 fL | [facility] | | | | | | LABORATORY | | | | | | SERVICES, | | | | | | CORE | | + + + + + + | NRBC% | 2.9 (H) | 0.0 - 0.3 % | [facility] | | | | | | LABORATORY | | | | | | SERVICES, | | | | | | CORE | | + + + + + + | NRBC# | 0.55 (H) | 0.00 - 0.02 | [facility] | | | | | K/cu mm | LABORATORY | | | | | | SERVICES, | | | | | | CORE | | + + + + + + + + | Specimen | + + | Blood | + + + + + | Narrative | Performed At | + + + | New reference ranges for MCV, MCHC, PLT, IG% and IG# effective | [facility] | | 01/09/2018 | LABORATORY | | | SERVICES, CORE | + + + + + + + + | Performing | Address | City/State/Zipcode | Phone Number | | Organization | | | | + + + + + | [facility] | [address] | [place] [address] | | | SERVICES, CORE | [address] | | | + + + + + BASIC METABOLIC SET (NA, K, CL, TCO2, BUN, CR, GLU, CA) (03/30/2018 6:19 AM PDT) + +---------+ + + + | Component | Value | Ref Range | Performed | Pathologist | | | | | At | Signature | + +---------+ + + + | GLUCOSE, | 87 | 70 - 99 mg/dL | [facility] | | | PLASMA | | | LABORATORY | | | (LAB) | | | SERVICES, | | | | | | CORE | | + +---------+ + + + | BUN, PLASMA | 12 | 6 - 20 mg/dL | [facility] | | | (LAB) | | | LABORATORY | | | | | | SERVICES, | | | | | | CORE | | + +---------+ + + + | CREATININE | 0.72 | 0.60 - 1.10 | [facility] | | | PLASMA | | mg/dL | LABORATORY | | | (LAB) | | | SERVICES, | | | | | | CORE | | + +---------+ + + + | EGFR | >60 | >60 mL/min | [facility] | | | - | | | LABORATORY | | | MAURITIAN | | | SERVICES, | | | | | | CORE | | + +---------+ + + + | EGFR NON | >60 | >60 mL/min | [facility] | | | -[place] | | | LABORATORY | | | RICAN | | | SERVICES, | | | | | | CORE | | + +---------+ + + + | SODIUM, | 145 | 136 - 145 | [facility] | | | PLASMA | | mmol/L | LABORATORY | | | (LAB) | | | SERVICES, | | | | | | CORE | | + +---------+ + + + | POTASSIUM, | 4.2 | 3.4 - 5.0 | [facility] | | | PLASMA | | mmol/L | LABORATORY | | | (LAB) | | | SERVICES, | | | | | | CORE | | + +---------+ + + + | CHLORIDE, | 111 (H) | 97 - 108 mmol/L | [facility] | | | PLASMA | | | LABORATORY | | | (LAB) | | | SERVICES, | | | | | | CORE | | + +---------+ + + + | TOTAL CO2, | 28 | 21 - 32 mmol/L | [facility] | | | PLASMA | | | LABORATORY | | | (LAB) | | | SERVICES, | | | | | | CORE | | + +---------+ + + + | CALCIUM, | 8.1 (L) | 8.6 - 10.2 | [facility] | | | PLASMA | | mg/dL | LABORATORY | | | (LAB) | | | SERVICES, | | | | | | CORE | | + +---------+ + + + | ANION GAP | 6 | 4 - 11 mmol/L | [facility] | | | | | | LABORATORY | | | | | | SERVICES, | | | | | | CORE | | + +---------+ + + + | POTASSIUM | No Hemo | | [facility] | | | CMNT | | | LABORATORY | | | | | | SERVICES, | | | | | | CORE | | + +---------+ + + + + + | Specimen | + + | Blood | + + + + + | Narrative | Performed At | + + + | GFR is estimated using the MDRD equation recommended by the | [facility] | | National Kidney Disease Education Program. Estimated GFR | LABORATORY | | Interpretive Information: <60 mL/min/1.73 sq | SERVICES, CORE | | m Chronic Kidney Disease <15 mL/min/1.73 | | | sq m Kidney Failure Estimated GFR greater | | | that 60 mL/min/1.73 sq m is of limited clinical value. The MDRD | | | equation is not valid in the following situations: - Patients under | | | 18 years of age - Severe malnutrition or obesity - Vegetarian diet | | | - Rapidly changing kidney function - Amputees, paraplegics, or other | | | muscle-wasting diseses | | + + + + + + + + | Performing | Address | City/State/Zipcode | Phone Number | | Organization | | | | + + + + + | [facility] | [address] | [place] [address] | | | SERVICES, ANTONI | [address] | | | + + + + + CBC (HEMOGRAM) ONLY (03/29/2018 9:43 PM PDT) + + + + + + | Component | Value | Ref Range | Performed | Pathologist | | | | | At | Signature | + + + + + + | WHITE CELL | 22.18 (H) | 3.50 - 10.80 | [facility] | | | COUNT | | K/cu mm | LABORATORY | | | | | | SERVICES, | | | | | | CORE | | + + + + + + | RED CELL | 2.39 (L) | 4.00 - 5.20 | [facility] | | | COUNT | | M/cu mm | LABORATORY | | | | | | SERVICES, | | | | | | CORE | | + + + + + + | HEMOGLOBIN | 7.4 (L) | 12.0 - 16.0 | [facility] | | | | | g/dL | LABORATORY | | | | | | SERVICES, | | | | | | CORE | | + + + + + + | HEMATOCRIT | 23.0 (L) | 36.0 - 46.0 % | [facility] | | | | | | LABORATORY | | | | | | SERVICES, | | | | | | CORE | | + + + + + + | MCV | 96.2 | 80.0 - 100.0 fL | [facility] | | | | | | LABORATORY | | | | | | SERVICES, | | | | | | CORE | | + + + + + + | MCHC | 32.2 | 32.0 - 36.0 | [facility] | | | | | g/dL | LABORATORY | | | | | | SERVICES, | | | | | | CORE | | + + + + + + | RDW SD | 49.1 (H) | 35.1 - 46.3 fL | [facility] | | | | | | LABORATORY | | | | | | SERVICES, | | | | | | CORE | | + + + + + + | PLATELET | 189Comment: Giant | 150 - 400 K/cu | [facility] | | | COUNT | platelets present. Few | mm | LABORATORY | | | | platelet clumps present. | | SERVICES, | | | | | | CORE | | + + + + + + | MPV | 10.4 | 9.7 - 12.3 fL | [facility] | | | | | | LABORATORY | | | | | | SERVICES, | | | | | | CORE | | + + + + + + | NRBC% | 2.6 (H) | 0.0 - 0.3 % | [facility] | | | | | | LABORATORY | | | | | | SERVICES, | | | | | | CORE | | + + + + + + | NRBC# | 0.57 (H) | 0.00 - 0.02 | [facility] | | | | | K/cu mm | LABORATORY | | | | | | SERVICES, | | | | | | CORE | | + + + + + + + + | Specimen | + + | Blood | + + + + + | Narrative | Performed At | + + + | New reference ranges for MCV, MCHC, PLT, IG% and IG# effective | [facility] | | 01/09/2018 | LABORATORY | | | SERVICES, CORE | + + + + + + + + | Performing | Address | City/State/Zipcode | Phone Number | | Organization | | | | + + + + + | [facility] | [address] | [place] [address] | | | SERVICES, CORE | [address] | | | + + + + + ANTIBODY SCREEN (03/29/2018 1:32 PM PDT) + + + + + + | Component | Value | Ref Range | Performed | Pathologist | | | | | At | Signature | + + + + + + | Antibody | Negative | | [facility] | | | Screen | | | LABORATORY | | | | | | SERVICES, | | | | | | TRANSFUSION | | | | | | MEDICINE | | + + + + + + + + | Specimen | + + | Blood | + + + + + + + | Performing | Address | City/State/Zipcode | Phone Number | | Organization | | | | + + + + + | [facility] | [address] | [place] [address] | | | SERVICES, | [address] | | | | TRANSFUSION MEDICINE | | | | + + + + + ABO & RH TYPE (03/29/2018 1:32 PM PDT) + + + + + + | Component | Value | Ref Range | Performed | Pathologist | | | | | At | Signature | + + + + + + | ABO Group | A | | [facility] | | | | | | LABORATORY | | | | | | SERVICES, | | | | | | TRANSFUSION | | | | | | MEDICINE | | + + + + + + | Rh Type | Positive | | [facility] | | | | | | LABORATORY | | | | | | SERVICES, | | | | | | TRANSFUSION | | | | | | MEDICINE | | + + + + + + + + | Specimen | + + | Blood | + + + + + + + | Performing | Address | City/State/Zipcode | Phone Number | | Organization | | | | + + + + + | [facility] | [address] | [place] [address] | | | SERVICES, | [address] | | | | TRANSFUSION MEDICINE | | | | + + + + + PRODUCT - RED CELLS LEUKOREDUCED (03/29/2018 12:58 PM PDT) + + + + + + | Component | Value | Ref Range | Performed | Pathologist | | | | | At | Signature | + + + + + + | PRODUCT | -1 RED BLOOD CELL | | [facility] | | | DESCRIPTION | ADENINE-SALINE ADDED | | LABORATORY | | | | LEUKOCYTE | | SERVICES, | | | | | | TRANSFUSION | | | | | | MEDICINE | | + + + + + + | PRODUCT | [id number] | | [facility] | | | UNIT # | | | LABORATORY | | | | | | SERVICES, | | | | | | TRANSFUSION | | | | | | MEDICINE | | + + + + + + | UNIT ABO | A | | [facility] | | | | | | LABORATORY | | | | | | SERVICES, | | | | | | TRANSFUSION | | | | | | MEDICINE | | + + + + + + | UNIT RH | POS | | [facility] | | | | | | LABORATORY | | | | | | SERVICES, | | | | | | TRANSFUSION | | | | | | MEDICINE | | + + + + + + | STATUS OF | Presumed Transfused | | [facility] | | | UNIT | | | LABORATORY | | | | | | SERVICES, | | | | | | TRANSFUSION | | | | | | MEDICINE | | + + + + + + | EXPIRATION | [id number] | | [facility] | | | DATE | | | LABORATORY | | | | | | SERVICES, | | | | | | TRANSFUSION | | | | | | MEDICINE | | + + + + + + | BLOOD TYPE | [id number] | | [facility] | | | BARCODE | | | LABORATORY | | | | | | SERVICES, | | | | | | TRANSFUSION | | | | | | MEDICINE | | + + + + + + | BLOOD | [id number] | | [facility] | | | PRODUCT | | | LABORATORY | | | CODE | | | SERVICES, | | | | | | TRANSFUSION | | | | | | MEDICINE | | + + + + + + + + | Specimen | + + | | + + + + + + + | Performing | Address | City/State/Zipcode | Phone Number | | Organization | | | | + + + + + | [facility] | [address] | [place] [address] | | | SERVICES, | [address] | | | | TRANSFUSION MEDICINE | | | | + + + + + CAPILLARY BLOOD GLUCOSE (NO CHG), POC (03/29/2018 12:12 PM PDT) + +-------+ + + + | Component | Value | Ref Range | Performed | Pathologist | | | | | At | Signature | + +-------+ + + + | BLOOD | 87 | 70 - 99 mg/dL | [facility] - | | | GLUCOSE, | | | [facility] | | | POC | | | [facility] | | | | | | OF CARE | | | | | | TESTS | | + +-------+ + + + + + | Specimen | + + | | + + + + + + + | Performing | Address | City/State/Zipcode | Phone Number | | Organization | | | | + + + + + | [facility] | [address] | [place], [place] | | | [facility] | [address] | [address] | | | TESTS | | | | + + + + + CBC (HEMOGRAM) ONLY (03/29/2018 7:08 AM PDT) + + + + + + | Component | Value | Ref Range | Performed | Pathologist | | | | | At | Signature | + + + + + + | WHITE CELL | 20.97 (H) | 3.50 - 10.80 | [facility] | | | COUNT | | K/cu mm | LABORATORY | | | | | | SERVICES, | | | | | | CORE | | + + + + + + | RED CELL | 2.18 (L) | 4.00 - 5.20 | [facility] | | | COUNT | | M/cu mm | LABORATORY | | | | | | SERVICES, | | | | | | CORE | | + + + + + + | HEMOGLOBIN | 6.8 (L) | 12.0 - 16.0 | [facility] | | | | | g/dL | LABORATORY | | | | | | SERVICES, | | | | | | CORE | | + + + + + + | HEMATOCRIT | 20.9 (L) | 36.0 - 46.0 % | [facility] | | | | | | LABORATORY | | | | | | SERVICES, | | | | | | CORE | | + + + + + + | MCV | 95.9 | 80.0 - 100.0 fL | [facility] | | | | | | LABORATORY | | | | | | SERVICES, | | | | | | CORE | | + + + + + + | MCHC | 32.5 | 32.0 - 36.0 | [facility] | | | | | g/dL | LABORATORY | | | | | | SERVICES, | | | | | | CORE | | + + + + + + | RDW SD | 51.2 (H) | 35.1 - 46.3 fL | [facility] | | | | | | LABORATORY | | | | | | SERVICES, | | | | | | CORE | | + + + + + + | PLATELET | 155 | 150 - 400 K/cu | [facility] | | | COUNT | | mm | LABORATORY | | | | | | SERVICES, | | | | | | CORE | | + + + + + + | MPV | 10.9 | 9.7 - 12.3 fL | [facility] | | | | | | LABORATORY | | | | | | SERVICES, | | | | | | CORE | | + + + + + + | NRBC% | 1.8 (H) | 0.0 - 0.3 % | [facility] | | | | | | LABORATORY | | | | | | SERVICES, | | | | | | CORE | | + + + + + + | NRBC# | 0.37 (H) | 0.00 - 0.02 | [facility] | | | | | K/cu mm | LABORATORY | | | | | | SERVICES, | | | | | | CORE | | + + + + + + + + | Specimen | + + | Blood | + + + + + | Narrative | Performed At | + + + | New reference ranges for MCV, MCHC, PLT, IG% and IG# effective | [facility] | | 01/09/2018 | LABORATORY | | | ANTONI AGNUIANO | + + + + + + + + | Performing | Address | City/State/Zipcode | Phone Number | | Organization | | | | + + + + + | [facility] | [address] | [place] [address] | | | ANTONI ANGUIANO | [address] | | | + + + + + BASIC METABOLIC SET (NA, K, CL, TCO2, BUN, CR, GLU, CA) (03/29/2018 7:08 AM PDT) + +---------+ + + + | Component | Value | Ref Range | Performed | Pathologist | | | | | At | Signature | + +---------+ + + + | GLUCOSE, | 96 | 70 - 99 mg/dL | [facility] | | | PLASMA | | | LABORATORY | | | (LAB) | | | SERVICES, | | | | | | CORE | | + +---------+ + + + | BUN, PLASMA | 14 | 6 - 20 mg/dL | [facility] | | | (LAB) | | | LABORATORY | | | | | | SERVICES, | | | | | | CORE | | + +---------+ + + + | CREATININE | 0.73 | 0.60 - 1.10 | [facility] | | | PLASMA | | mg/dL | LABORATORY | | | (LAB) | | | SERVICES, | | | | | | CORE | | + +---------+ + + + | EGFR | >60 | >60 mL/min | [facility] | | | - | | | LABORATORY | | | MAURITIAN | | | SERVICES, | | | | | | CORE | | + +---------+ + + + | EGFR NON | >60 | >60 mL/min | [facility] | | | [facility] | | | LABORATORY | | | RICAN | | | SERVICES, | | | | | | CORE | | + +---------+ + + + | SODIUM, | 147 (H) | 136 - 145 | [facility] | | | PLASMA | | mmol/L | LABORATORY | | | (LAB) | | | SERVICES, | | | | | | CORE | | + +---------+ + + + | POTASSIUM, | 4.1 | 3.4 - 5.0 | [facility] | | | PLASMA | | mmol/L | LABORATORY | | | (LAB) | | | SERVICES, | | | | | | CORE | | + +---------+ + + + | CHLORIDE, | 113 (H) | 97 - 108 mmol/L | [facility] | | | PLASMA | | | LABORATORY | | | (LAB) | | | SERVICES, | | | | | | CORE | | + +---------+ + + + | TOTAL CO2, | 27 | 21 - 32 mmol/L | [facility] | | | PLASMA | | | LABORATORY | | | (LAB) | | | SERVICES, | | | | | | CORE | | + +---------+ + + + | CALCIUM, | 7.9 (L) | 8.6 - 10.2 | [facility] | | | PLASMA | | mg/dL | LABORATORY | | | (LAB) | | | SERVICES, | | | | | | CORE | | + +---------+ + + + | ANION GAP | 7 | 4 - 11 mmol/L | [facility] | | | | | | LABORATORY | | | | | | SERVICES, | | | | | | CORE | | + +---------+ + + + | POTASSIUM | No Hemo | | [facility] | | | CMNT | | | LABORATORY | | | | | | SERVICES, | | | | | | CORE | | + +---------+ + + + + + | Specimen | + + | Blood | + + + + + | Narrative | Performed At | + + + | Please draw vancomycin trough prior to the morning dose, level | [facility] | | ordered for 07:30 03/29 GFR is estimated using the MDRD equation | LABORATORY | | recommended by the National Kidney Disease Education Program. | SERVICES, CORE | | Estimated GFR Interpretive Information: <60 mL/min/1.73 sq | | | m Chronic Kidney Disease <15 mL/min/1.73 | | | sq m Kidney Failure Estimated GFR greater | | | that 60 mL/min/1.73 sq m is of limited clinical value. The MDRD | | | equation is not valid in the following situations: - Patients under | | | 18 years of age - Severe malnutrition or obesity - Vegetarian diet | | | - Rapidly changing kidney function - Amputees, paraplegics, or other | | | muscle-wasting diseses | | + + + + + + + + | Performing | Address | City/State/Zipcode | Phone Number | | Organization | | | | + + + + + | [facility] | [address] | [place] [address] | | | SERVICES, [place] | [address] | | | + + + + + VANCOMYCIN, TROUGH (03/29/2018 7:08 AM PDT) + + + + + + | Component | Value | Ref Range | Performed | Pathologist | | | | | At | Signature | + + + + + + | VANCOMYCIN, | 22.0 (H) | 10.0 - 20.0 | [facility] | | | TROUGH | | ug/mL | LABORATORY | | | | | | SERVICES, | | | | | | CORE | | + + + + + + + + | Specimen | + + | Blood | + + + + + | Narrative | Performed At | + + + | Please draw vancomycin trough prior to the morning dose, level | [facility] | | ordered for 07:30 03/29 | LABORATORY | | | SERVICES, CORE | + + + + + + + + | Performing | Address | City/State/Zipcode | Phone Number | | Organization | | | | + + + + + | [facility] | [address] | [place] [address] | | | SERVICES, CORE | [address] | | | + + + + + RBC MORPHOLOGY (03/28/2018 6:54 AM PDT) + + + + + + | Component | Value | Ref Range | Performed | Pathologist | | | | | At | Signature | + + + + + + | DOHLE | Present | | [facility] | | | BODIES | | | LABORATORY | | | | | | SERVICES, | | | | | | CORE | | + + + + + + | TOXIC | Present | | [facility] | | | GRANULATION | | | LABORATORY | | | | | | SERVICES, | | | | | | CORE | | + + + + + + | POLYCHROMAS | 1+ (<1-2cells/HPF) | | [facility] | | | IA | | | LABORATORY | | | | | | SERVICES, | | | | | | CORE | | + + + + + + + + | Specimen | + + | Blood | + + + + + + + | Performing | Address | City/State/Zipcode | Phone Number | | Organization | | | | + + + + + | [facility] | [address] | [place] [address] | | | SERVICES, CORE | [address] | | | + + + + + CBC AND AUTO DIFF (03/28/2018 6:54 AM PDT) + + + + + + | Component | Value | Ref Range | Performed | Pathologist | | | | | At | Signature | + + + + + + | WHITE CELL | 19.93 (H) | 3.50 - 10.80 | [facility] | | | COUNT | | K/cu mm | LABORATORY | | | | | | SERVICES, | | | | | | CORE | | + + + + + + | RED CELL | 3.05 (L) | 4.00 - 5.20 | [facility] | | | COUNT | | M/cu mm | LABORATORY | | | | | | SERVICES, | | | | | | CORE | | + + + + + + | HEMOGLOBIN | 9.2 (L) | 12.0 - 16.0 | [facility] | | | | | g/dL | LABORATORY | | | | | | SERVICES, | | | | | | CORE | | + + + + + + | HEMATOCRIT | 28.3 (L) | 36.0 - 46.0 % | [facility] | | | | | | LABORATORY | | | | | | SERVICES, | | | | | | CORE | | + + + + + + | MCV | 92.8 | 80.0 - 100.0 fL | [facility] | | | | | | LABORATORY | | | | | | SERVICES, | | | | | | CORE | | + + + + + + | MCHC | 32.5 | 32.0 - 36.0 | [facility] | | | | | g/dL | LABORATORY | | | | | | SERVICES, | | | | | | CORE | | + + + + + + | RDW SD | 48.5 (H) | 35.1 - 46.3 fL | [facility] | | | | | | LABORATORY | | | | | | SERVICES, | | | | | | CORE | | + + + + + + | PLATELET | 106 (L)Comment: Macro | 150 - 400 K/cu | [facility] | | | COUNT | platelets present. | mm | LABORATORY | | | | | | SERVICES, | | | | | | CORE | | + + + + + + | MPV | 10.5 | 9.7 - 12.3 fL | [facility] | | | | | | LABORATORY | | | | | | SERVICES, | | | | | | CORE | | + + + + + + | NRBC% | 0.8 (H) | 0.0 - 0.3 % | [facility] | | | | | | LABORATORY | | | | | | SERVICES, | | | | | | CORE | | + + + + + + | NRBC# | 0.16 (H) | 0.00 - 0.02 | [facility] | | | | | K/cu mm | LABORATORY | | | | | | SERVICES, | | | | | | CORE | | + + + + + + | NEUTROPHIL | 65.3 | 50.0 - 70.0 % | [facility] | | | % | | | LABORATORY | | | | | | SERVICES, | | | | | | CORE | | + + + + + + | LYMPHOCYTE | 6.1 (L) | 18.0 - 42.0 % | [facility] | | | % | | | LABORATORY | | | | | | SERVICES, | | | | | | CORE | | + + + + + + | MONOCYTE % | 6.9 | 3.5 - 9.0 % | [facility] | | | | | | LABORATORY | | | | | | SERVICES, | | | | | | CORE | | + + + + + + | EOS % | 0.0 (L) | 1.0 - 3.0 % | [facility] | | | | | | LABORATORY | | | | | | SERVICES, | | | | | | CORE | | + + + + + + | BASO % | 0.2 | 0.0 - 2.0 % | [facility] | | | | | | LABORATORY | | | | | | SERVICES, | | | | | | CORE | | + + + + + + | IG% | 21.5 (H)Comment: | 0.0 - 1.0 % | [facility] | | | | Increased immature | | LABORATORY | | | | granulocytes (IG) define | | SERVICES, | | | | a left shift. Immature | | CORE | | | | granulocytes (IG) are | | | | | | an automated count of | | | | | | metamyelocytes, | | | | | | myelocytes and | | | | | | promyelocytes. Bands | | | | | | are not included in the | | | | | | IG count. Bands are | | | | | | included in the | | | | | | neutrophil count. | | | | + + + + + + | NEUTROPHIL | 13.02 (H) | 1.80 - 7.70 | [facility] | | | # | | K/cu mm | LABORATORY | | | | | | SERVICES, | | | | | | CORE | | + + + + + + | LYMPHOCYTE | 1.21 | 1.00 - 4.80 | [facility] | | | # | | K/cu mm | LABORATORY | | | | | | SERVICES, | | | | | | CORE | | + + + + + + | MONOCYTE # | 1.37 (H) | 0.10 - 0.90 | [facility] | | | | | K/cu mm | LABORATORY | | | | | | SERVICES, | | | | | | CORE | | + + + + + + | EOS # | 0.00 | 0.00 - 0.50 | [facility] | | | | | K/cu mm | LABORATORY | | | | | | SERVICES, | | | | | | CORE | | + + + + + + | BASO # | 0.04 | 0.00 - 0.10 | [facility] | | | | | K/cu mm | LABORATORY | | | | | | SERVICES, | | | | | | CORE | | + + + + + + | IG# | 4.29 (H) | 0.00 - 0.10 | [facility] | | | | | K/cu mm | LABORATORY | | | | | | SERVICES, | | | | | | CORE | | + + + + + + + + | Specimen | + + | Blood | + + + + + | Narrative | Performed At | + + + | New pediatric reference ranges for Lymphocyte % in effect February 13 | [facility] | | 2017. New reference ranges for MCV, MCHC, PLT, IG% and IG# | LABORATORY | | effective 01/09/2018 Increased immature granulocytes (IG) define a | SERVICES, CORE | | left shift. Immature granulocytes (IG) are an automated count of | | | metamyelocytes, myelocytes and promyelocytes. Bands are not included | | | in the IG count. Bands are included in the neutrophil count. | | + + + + + + + + | Performing | Address | City/State/Zipcode | Phone Number | | Organization | | | | + + + + + | [facility] | [address] | [place] [address] | | | SERVICES, [facility] | [address] | | | + + + + + COMPLETE METABOLIC SET (NA,K,CL,CO2,BUN,CREAT,GLUC,CA,AST,ALT,BILI TOTAL,ALK PHOS,ALB,PROT TOTAL) (03/28/2018 6:54 AM PDT) + + + + + + | Component | Value | Ref Range | Performed | Pathologist | | | | | At | Signature | + + + + + + | GLUCOSE, | 187 (H) | 70 - 99 mg/dL | [facility] | | | PLASMA | | | LABORATORY | | | (LAB) | | | SERVICES, | | | | | | CORE | | + + + + + + | BUN, PLASMA | 11 | 6 - 20 mg/dL | [facility] | | | (LAB) | | | LABORATORY | | | | | | SERVICES, | | | | | | CORE | | + + + + + + | CREATININE | 0.58 (L) | 0.60 - 1.10 | [facility] | | | PLASMA | | mg/dL | LABORATORY | | | (LAB) | | | SERVICES, | | | | | | CORE | | + + + + + + | EGFR | >60 | >60 mL/min | [facility] | | | - | | | LABORATORY | | | MAURITIAN | | | SERVICES, | | | | | | CORE | | + + + + + + | EGFR NON | >60 | >60 mL/min | [facility] | | | -[place] | | | LABORATORY | | | RICAN | | | SERVICES, | | | | | | CORE | | + + + + + + | SODIUM, | 148 (H) | 136 - 145 | [facility] | | | PLASMA | | mmol/L | LABORATORY | | | (LAB) | | | SERVICES, | | | | | | CORE | | + + + + + + | POTASSIUM, | 3.7 | 3.4 - 5.0 | [facility] | | | PLASMA | | mmol/L | LABORATORY | | | (LAB) | | | SERVICES, | | | | | | CORE | | + + + + + + | CHLORIDE, | 114 (H) | 97 - 108 mmol/L | [facility] | | | PLASMA | | | LABORATORY | | | (LAB) | | | SERVICES, | | | | | | CORE | | + + + + + + | TOTAL CO2, | 26 | 21 - 32 mmol/L | [facility] | | | PLASMA | | | LABORATORY | | | (LAB) | | | SERVICES, | | | | | | CORE | | + + + + + + | CALCIUM, | 7.8 (L) | 8.6 - 10.2 | [facility] | | | PLASMA | | mg/dL | LABORATORY | | | (LAB) | | | SERVICES, | | | | | | CORE | | + + + + + + | CALCIUM(ALB | 9.2 | 8.6 - 10.2 | [facility] | | | CORRECTED) | | mg/dL | LABORATORY | | | | | | SERVICES, | | | | | | CORE | | + + + + + + | BILIRUBIN | 0.1 (L) | 0.3 - 1.2 mg/dL | [facility] | | | TOTAL | | | LABORATORY | | | | | | SERVICES, | | | | | | CORE | | + + + + + + | TOTAL | 5.2 (L) | 6.4 - 8.2 g/dL | [facility] | | | PROTEIN, | | | LABORATORY | | | PLASMA | | | SERVICES, | | | (LAB) | | | CORE | | + + + + + + | ALBUMIN, | 2.2 (L) | 3.5 - 4.7 g/dL | [facility] | | | PLASMA | | | LABORATORY | | | (LAB) | | | SERVICES, | | | | | | CORE | | + + + + + + | ALK PHOS | 59 | 42 - 98 U/L | [facility] | | | | | | LABORATORY | | | | | | SERVICES, | | | | | | CORE | | + + + + + + | AST(SGOT) | 17 | <=41 U/L | [facility] | | | | | | LABORATORY | | | | | | SERVICES, | | | | | | CORE | | + + + + + + | ALT (SGPT) | 21 | <=60 U/L | [facility] | | | | | | LABORATORY | | | | | | SERVICES, | | | | | | CORE | | + + + + + + | ANION GAP | 8 | 4 - 11 mmol/L | [facility] | | | | | | LABORATORY | | | | | | SERVICES, | | | | | | CORE | | + + + + + + | ANION | 12 (H) | 4 - 11 mmol/L | [facility] | | | GAP(ALB | | | LABORATORY | | | CORRECTED) | | | SERVICES, | | | | | | CORE | | + + + + + + | POTASSIUM | No Hemo | | [facility] | | | CMNT | | | LABORATORY | | | | | | SERVICES, | | | | | | CORE | | + + + + + + | BILI T CMNT | No Hemo | | [facility] | | | | | | LABORATORY | | | | | | SERVICES, | | | | | | CORE | | + + + + + + | AST CMNT | No Hemo | | [facility] | | | | | | LABORATORY | | | | | | SERVICES, | | | | | | CORE | | + + + + + + + + | Specimen | + + | Blood | + + + + + | Narrative | Performed At | + + + | GFR is estimated using the MDRD equation recommended by the | [facility] | | National Kidney Disease Education Program. Estimated GFR | LABORATORY | | Interpretive Information: <60 mL/min/1.73 sq | SERVICES, CORE | | m Chronic Kidney Disease <15 mL/min/1.73 | | | sq m Kidney Failure Estimated GFR greater | | | that 60 mL/min/1.73 sq m is of limited clinical value. The MDRD | | | equation is not valid in the following situations: - Patients under | | | 18 years of age - Severe malnutrition or obesity - Vegetarian diet | | | - Rapidly changing kidney function - Amputees, paraplegics, or other | | | muscle-wasting diseses | | + + + + + + + + | Performing | Address | City/State/Zipcode | Phone Number | | Organization | | | | + + + + + | [facility] | [address] | [place] [address] | | | ANTONI ANGUIANO | [address] | | | + + + + + CBC (HEMOGRAM) ONLY (03/27/2018 6:10 PM PDT) + + + + + + | Component | Value | Ref Range | Performed | Pathologist | | | | | At | Signature | + + + + + + | WHITE CELL | 27.12 (H) | 3.50 - 10.80 | [facility] | | | COUNT | | K/cu mm | LABORATORY | | | | | | SERVICES, | | | | | | CORE | | + + + + + + | RED CELL | 2.41 (L) | 4.00 - 5.20 | [facility] | | | COUNT | | M/cu mm | LABORATORY | | | | | | SERVICES, | | | | | | CORE | | + + + + + + | HEMOGLOBIN | 7.4 (L) | 12.0 - 16.0 | [facility] | | | | | g/dL | LABORATORY | | | | | | SERVICES, | | | | | | CORE | | + + + + + + | HEMATOCRIT | 22.0 (L) | 36.0 - 46.0 % | [facility] | | | | | | LABORATORY | | | | | | SERVICES, | | | | | | CORE | | + + + + + + | MCV | 91.3 | 80.0 - 100.0 fL | [facility] | | | | | | LABORATORY | | | | | | SERVICES, | | | | | | CORE | | + + + + + + | MCHC | 33.6 | 32.0 - 36.0 | [facility] | | | | | g/dL | LABORATORY | | | | | | SERVICES, | | | | | | CORE | | + + + + + + | RDW SD | 46.6 (H) | 35.1 - 46.3 fL | [facility] | | | | | | LABORATORY | | | | | | SERVICES, | | | | | | CORE | | + + + + + + | PLATELET | 127 (L) | 150 - 400 K/cu | [facility] | | | COUNT | | mm | LABORATORY | | | | | | SERVICES, | | | | | | CORE | | + + + + + + | MPV | 10.8 | 9.7 - 12.3 fL | [facility] | | | | | | LABORATORY | | | | | | SERVICES, | | | | | | CORE | | + + + + + + | NRBC% | 0.8 (H) | 0.0 - 0.3 % | [facility] | | | | | | LABORATORY | | | | | | SERVICES, | | | | | | CORE | | + + + + + + | NRBC# | 0.22 (H) | 0.00 - 0.02 | [facility] | | | | | K/cu mm | LABORATORY | | | | | | SERVICES, | | | | | | CORE | | + + + + + + + + | Specimen | + + | Blood | + + + + + | Narrative | Performed At | + + + | New reference ranges for MCV, MCHC, PLT, IG% and IG# effective | [facility] | | 01/09/2018 | LABORATORY | | | SERVICES, CORE | + + + + + + + + | Performing | Address | City/State/Zipcode | Phone Number | | Organization | | | | + + + + + | [facility] | [address] | [place] [address] | | | SERVICES, [facility] | [address] | | | + + + + + OPERATION RECORD (03/27/2018 12:10 PM PDT) + + | Procedure Note | + + | Lynda Basurto MD - 03/27/2018 12:10 PM PDT Date of Service: 03/27/2018 | | Attending Surgeon: Lynda Basurto MD Senior Systems Software Engineer(s): Odalys | | R Elvin Tobin PA-C. Please note no other qualified seed analysis laboratory assistant was available. | | Preoperative Diagnosis: Infected left below-knee amputation | | site.Postoperative Diagnosis: Infected left below-knee amputation site.Procedure: | | Irrigation, debridement, and revision of left below-knee amputation site, wound | | measuring 20 cm in length.Anesthesia: General.Estimated Blood Loss: 200 | | mL.Complications: None apparent.Findings: Clean tissue bed without any gross fibrinous | | material. Bone appeared clean. About a centimeter of bone needed to be removed to | | allow for better closure of the wound. Please note, the debridement included removal of | | skin, subcutaneous tissue, and muscle and bone.Specimens Sent: Cultures x5. The first | | 3 come from bone. 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 She underwent 2 adjuvant | | treatments of chemotherapy and developed an infection at her surgical site. She | | underwent a debridement 3 days ago. They placed a wound VAC. She was indicated for | | another debridement today.Procedure In Detail: The patient was brought to the operating | | room, placed supine on the operating table, given general anesthesia. The left lower | | extremity had its wound VAC removed and it was prepped and draped in standard sterile | | fashion. Preoperative antibiotics were given as scheduled, as she was already on | | vancomycin and cefepime. A time-out was done. The sutures overlying the fascial | | closure were reopened in its entirety and we immediately came across bone and the muscle | | in this deep layer. Multiple cultures were taken. The first 3 cultures were taken | | from the bony canal itself and then the subsequent 2 cultures were in the muscle | | surrounding the bone. Further muscle was removed that appeared possibly fibrinous. | | There appeared to be very little of that. Some of the periosteum, especially medially, | | was removed as well, and then the fascia was cut with a curved Rodas to make sure that we | | had a clean edge of fascia. A knife was then taken about the subcutaneous tissue and | | skin both anteriorly and posteriorly on the skin flaps and about 0.5 cm was cut on each | | side to have a clean tissue bed. At this point, all the soft tissue appeared clean. | | The bone then did appear to be a little bit too prominent for us to be able to close | | primarily, so we used a Byers elevator to lift off the periosteum circumferentially and | | then cut the bone about three-quarters of a centimeter to a centimeter and then shaved | | off a little bit more of the bevel to make sure that it was still adequately beveled. | | The wound was then copiously irrigated with 10 L of normal saline. The posterior fascia | | was then closed and the anterior fascia and periosteum with 0 Vicryl, subcutaneous | | tissue closed with 2-0 Vicryl, and skin closed with 2-0 nylon in vertical mattress | | fashion. A drain had been placed prior to closure of the fascia. This was a 10-Guyanese | | channel drain. Please note, the incision was 20 cm in length by the time closure was | | complete. A skin VAC was placed over the incision. An Javan wrap was placed over the leg | | and the patient was extubated and brought to recovery room in stable | | condition.Postoperative Plan: I would like her to have as much compression of that leg | | as possible with the Javan wrap. Her skin VAC should be removed prior to discharge. Her | | drain should also be removed prior to discharge and then she can have a regular | | dressing. We will see her back in the clinic before we decide when she gets her next | | cycle of adjuvant chemotherapy. We will have Infectious Disease consulted to figure out | | how long her antibiotics need to go for.DARIUS Magallon/SHANIAD: 03/27/2018 | | 11:18:37DT: 03/27/2018 12:10:06Job #: [id number] | + + CAPILLARY BLOOD GLUCOSE (NO CHG), POC (03/27/2018 12:06 PM PDT) + +---------+ + + + | Component | Value | Ref Range | Performed | Pathologist | | | | | At | Signature | + +---------+ + + + | BLOOD | 125 (H) | 70 - 99 mg/dL | [facility] - | | | GLUCOSE, | | | [facility] | | | POC | | | [facility] | | | | | | OF CARE | | | | | | TESTS | | + +---------+ + + + + + | Specimen | + + | | + + + + + + + | Performing | Address | City/State/Zipcode | Phone Number | | Organization | | | | + + + + + | [facility] | [address] | [place], [place] | | | [facility] | [address] | [address] | | | TESTS | | | | + + + + + PROCEDURE NOTE (03/27/2018 11:37 AM PDT) + + + | Narrative | Performed At | + + + | Odalys Tobin PA-C 03/27/2018 11:39 AM INPATIENT | | | BRIEF OPERATIVE NOTE Procedure Date: 03/27/2018 Author: ODALYS | | | ELVIN TOBIN PA-C Attending Physician: Dr. Lynda Basurto | | | Assistants: ODALYS TOBIN PA-C Preoperative Diagnosis: | | | infected postoperative wound, left BKA Postoperative Diagnosis: | | | same Procedure Performed: Irrigation and debridement left leg | | | wound, wound closure, placement of incisional wound vac. | | | Estimated Blood Loss: 200 mL Fluids: see anesthesia note | | | Specimens: cultures Complications: none Drains: 10 Fr | | | Channel drain Disposition: floor -weight bearing status: as | | | tolerated -ROM: as tolerated -discharge status: pending | | | -antibiotics: vanco, cefepime -F/u: 2 weeks | | + + + CAPILLARY BLOOD GLUCOSE (NO CHG), POC (03/27/2018 10:44 AM PDT) + +---------+ + + + | Component | Value | Ref Range | Performed | Pathologist | | | | | At | Signature | + +---------+ + + + | BLOOD | 106 (H) | 70 - 99 mg/dL | [facility] - | | | GLUCOSE, | | | [facility] | | | POC | | | [facility] | | | | | | OF CARE | | | | | | TESTS | | + +---------+ + + + + + | Specimen | + + | | + + + + + + + | Performing | Address | City/State/Zipcode | Phone Number | | Organization | | | | + + + + + | [facility] | [address] | [place], [place] | | | [facility] | [address] | [phone] | | | TESTS | | | | + + + + + CULTURE, TISSUE (03/27/2018 10:27 AM PDT) + + + + + + | Component | Value | Ref Range | Performed | Pathologist | | | | | At | Signature | + + + + + + | CULTURE | Escherichia coli (A) | | [facility] | | | RESULT | | | [facility] - | | | | | | [place] | | + + + + + + + + | Specimen | + + | Tissue | + + + + + | Narrative | Performed At | + + + | Culture Report: Rare Escherichia coli Refer to culture | [facility] - | | collected 03/24/18 at 11:56 AM for susceptibilities No anaerobic | [facility] - | | organisms isolated Gram Stain: No squamous epithelial cells | [place] | | Rare polymorphonuclear cells No organisms seen | | + + + + + + + + | Performing | Address | City/State/Zipcode | Phone Number | | Organization | | | | + + + + + | [facility] | [address] | [place] [address] | | | [place] | | | | + + + + + CULTURE, TISSUE (03/27/2018 10:27 AM PDT) + + | Specimen | + + | Tissue | + + + + + | Narrative | Performed At | + + + | Culture Report: No growth No anaerobic organisms isolated | [facility] - | | Gram Stain: No squamous epithelial cells Few polymorphonuclear | [facility] - | | cells No organisms seen | [facility] | + + + + + + + + | Performing | Address | City/State/Zipcode | Phone Number | | Organization | | | | + + + + + | [facility] - | [address] | [place] [address] | | | [place] | | | | + + + + + CULTURE, TISSUE (03/27/2018 10:24 AM PDT) + + + + + + | Component | Value | Ref Range | Performed | Pathologist | | | | | At | Signature | + + + + + + | CULTURE | Escherichia coli (A) | | [facility] - | | | RESULT | | | [facility] - | | | | | | [place] | | + + + + + + + + | Specimen | + + | Tissue | + + + + + | Narrative | Performed At | + + + | Culture Report: Rare Escherichia coli Refer to culture | [facility] - | | collected 03/24/18 at 11:56 AM for susceptibilities No anaerobic | [facility] - | | organisms isolated Gram Stain: No squamous epithelial cells No | [place] | | polymorphonuclear cells No organisms seen | | + + + + + + + + | Performing | Address | City/State/Zipcode | Phone Number | | Organization | | | | + + + + + | [facility] | [address] | [place] [address] | | | [facility] | | | | + + + + + CULTURE, TISSUE (03/27/2018 10:23 AM PDT) + + + + + + | Component | Value | Ref Range | Performed | Pathologist | | | | | At | Signature | + + + + + + | CULTURE | Escherichia coli (A) | | [facility] - | | | RESULT | | | [facility] - | | | | | | [place] | | + + + + + + + + | Specimen | + + | Tissue | + + + + + | Narrative | Performed At | + + + | Culture Report: Rare Escherichia coli Refer to culture | [facility] - | | collected 03/24/18 at 11:56 AM for susceptibilities No anaerobic | [facility] - | | organisms isolated Gram Stain: No squamous epithelial cells No | [place] | | polymorphonuclear cells No organisms seen | | + + + + + + + + | Performing | Address | City/State/Zipcode | Phone Number | | Organization | | | | + + + + + | [facility] - | [address] | [place] [address] | | | [place] | | | | + + + + + CULTURE, TISSUE (03/27/2018 9:32 AM PDT) + + + + + + | Component | Value | Ref Range | Performed | Pathologist | | | | | At | Signature | + + + + + + | CULTURE | Escherichia coli (A) | | [facility] - | | | RESULT | | | [facility] - | | | | | | [place] | | + + + + + + + + | Specimen | + + | Tissue | + + + + + | Narrative | Performed At | + + + | Culture Report: Rare Escherichia coli Refer to culture | [facility] - | | collected 03/24/18 at 11:56 AM for susceptibilities No anaerobic | [facility] - | | organisms isolated Gram Stain: No squamous epithelial cells | [place] | | Rare polymorphonuclear cells No organisms seen | | + + + + + + + + | Performing | Address | City/State/Zipcode | Phone Number | | Organization | | | | + + + + + | [facility] | [address] | [place] [address] | | | [place] | | | | + + + + + CAPILLARY BLOOD GLUCOSE (NO CHG), POC (03/27/2018 8:22 AM PDT) + +-------+ + + + | Component | Value | Ref Range | Performed | Pathologist | | | | | At | Signature | + +-------+ + + + | BLOOD | 88 | 70 - 99 mg/dL | [facility] - | | | GLUCOSE, | | | [facility] | | | POC | | | [facility] | | | | | | OF CARE | | | | | | TESTS | | + +-------+ + + + + + | Specimen | + + | | + + + + + + + | Performing | Address | City/State/Zipcode | Phone Number | | Organization | | | | + + + + + | [facility] | [address] | [place], [place] | | | [facility] | [facility] | [address] | | | TESTS | | | | + + + + + RBC MORPHOLOGY (03/27/2018 3:56 AM PDT) + +---------+ + + + | Component | Value | Ref Range | Performed | Pathologist | | | | | At | Signature | + +---------+ + + + | DOHLE | Present | | [facility] | | | BODIES | | | LABORATORY | | | | | | SERVICES, | | | | | | CORE | | + +---------+ + + + | TOXIC | Present | | [facility] | | | GRANULATION | | | LABORATORY | | | | | | SERVICES, | | | | | | CORE | | + +---------+ + + + + + | Specimen | + + | Blood | + + + + + + + | Performing | Address | City/State/Zipcode | Phone Number | | Organization | | | | + + + + + | [facility] | [address] | [place] [address] | | | SERVICES, CORE | [address] | | | + + + + + MANUAL DIFFERENTIAL (03/27/2018 3:56 AM PDT) + + + + + + | Component | Value | Ref Range | Performed | Pathologist | | | | | At | Signature | + + + + + + | NEUTROPHIL | 66.9 | 50.0 - 70.0 % | [facility] | | | % | | | LABORATORY | | | | | | SERVICES, | | | | | | CORE | | + + + + + + | LYMPHOCYTE | 12.2 (L) | 18.0 - 42.0 % | [facility] | | | % | | | LABORATORY | | | | | | SERVICES, | | | | | | CORE | | + + + + + + | MONOCYTE % | 6.1 | 3.5 - 9.0 % | [facility] | | | | | | LABORATORY | | | | | | SERVICES, | | | | | | CORE | | + + + + + + | EOSINOPHIL | 0.0 (L) | 1.0 - 3.0 % | [facility] | | | % | | | LABORATORY | | | | | | SERVICES, | | | | | | CORE | | + + + + + + | BASOPHIL % | 0.9 | 0.0 - 2.0 % | [facility] | | | | | | LABORATORY | | | | | | SERVICES, | | | | | | CORE | | + + + + + + | IG% | 13.0 (H)Comment: | 0.0 - 1.0 % | [facility] | | | | Increased immature | | LABORATORY | | | | granulocytes(IG)define a | | SERVICES, | | | | left shift.IGs include | | CORE | | | | metamyelocytes, | | | | | | myelocytes and | | | | | | promyelocytes. Bands are | | | | | | included in the | | | | | | neutrophil count, not | | | | | | the IG count, except in | | | | | | neonates <=60 days old | | | | | | where bands are reported | | | | | | in a manual diff. | | | | + + + + + + | ATYPICAL | 0.9 (H) | 0.0 % | [facility] | | | CELL % | | | LABORATORY | | | | | | SERVICES, | | | | | | CORE | | + + + + + + | NEUTROPHIL | 15.46 (H) | 1.80 - 7.70 | [facility] | | | # | | K/cu mm | LABORATORY | | | | | | SERVICES, | | | | | | CORE | | + + + + + + | LYMPHOCYTE | 2.82 | 1.00 - 4.80 | [facility] | | | # | | K/cu mm | LABORATORY | | | | | | SERVICES, | | | | | | CORE | | + + + + + + | MONOCYTE # | 1.41 (H) | 0.10 - 0.90 | [facility] | | | | | K/cu mm | LABORATORY | | | | | | SERVICES, | | | | | | CORE | | + + + + + + | EOSINOPHIL | 0.00 | 0.00 - 0.50 | [facility] | | | # | | K/cu mm | LABORATORY | | | | | | SERVICES, | | | | | | CORE | | + + + + + + | BASOPHIL # | 0.21 (H) | 0.00 - 0.10 | [facility] | | | | | K/cu mm | LABORATORY | | | | | | SERVICES, | | | | | | CORE | | + + + + + + | IG# | 3.00 (H) | 0.00 - 0.10 | [facility] | | | | | K/cu mm | LABORATORY | | | | | | SERVICES, | | | | | | CORE | | + + + + + + | ATYPICAL | 0.21 | K/cu mm | [facility] | | | CELLS # | | | LABORATORY | | | | | | SERVICES, | | | | | | CORE | | + + + + + + + + | Specimen | + + | Blood | + + + + + | Narrative | Performed At | + + + | New pediatric reference ranges for Lymphocyte % in effect February 13, | [facility] | | 2017. Increased immature granulocytes(IG)define a left shift.IGs | LABORATORY | | include metamyelocytes, myelocytes and promyelocytes. Bands are | SERVICES, CORE | | included in the neutrophil count, not the IG count, except in neonates | | | <=60 days old where bands are reported in a manual diff. | | + + + + + + + + | Performing | Address | City/State/Zipcode | Phone Number | | Organization | | | | + + + + + | [facility] | [address] | [place] [address] | | | SERVICES, CORE | [address] | | | + + + + + CBC AND AUTO DIFF (03/27/2018 3:56 AM PDT) + + + + + + | Component | Value | Ref Range | Performed | Pathologist | | | | | At | Signature | + + + + + + | WHITE CELL | 23.11 (H) | 3.50 - 10.80 | [facility] | | | COUNT | | K/cu mm | LABORATORY | | | | | | SERVICES, | | | | | | CORE | | + + + + + + | RED CELL | 2.66 (L) | 4.00 - 5.20 | [facility] | | | COUNT | | M/cu mm | LABORATORY | | | | | | SERVICES, | | | | | | CORE | | + + + + + + | HEMOGLOBIN | 8.0 (L) | 12.0 - 16.0 | [facility] | | | | | g/dL | LABORATORY | | | | | | SERVICES, | | | | | | CORE | | + + + + + + | HEMATOCRIT | 23.9 (L) | 36.0 - 46.0 % | [facility] | | | | | | LABORATORY | | | | | | SERVICES, | | | | | | CORE | | + + + + + + | MCV | 89.8 | 80.0 - 100.0 fL | [facility] | | | | | | LABORATORY | | | | | | SERVICES, | | | | | | CORE | | + + + + + + | MCHC | 33.5 | 32.0 - 36.0 | [facility] | | | | | g/dL | LABORATORY | | | | | | SERVICES, | | | | | | CORE | | + + + + + + | RDW SD | 46.0 | 35.1 - 46.3 fL | [facility] | | | | | | LABORATORY | | | | | | SERVICES, | | | | | | CORE | | + + + + + + | PLATELET | 95 (L) | 150 - 400 K/cu | [facility] | | | COUNT | | mm | LABORATORY | | | | | | SERVICES, | | | | | | CORE | | + + + + + + | MPV | 11.0 | 9.7 - 12.3 fL | [facility] | | | | | | LABORATORY | | | | | | SERVICES, | | | | | | CORE | | + + + + + + | NRBC% | 1.6 (H) | 0.0 - 0.3 % | [facility] | | | | | | LABORATORY | | | | | | SERVICES, | | | | | | CORE | | + + + + + + | NRBC# | 0.37 (H) | 0.00 - 0.02 | [facility] | | | | | K/cu mm | LABORATORY | | | | | | SERVICES, | | | | | | CORE | | + + + + + + + + | Specimen | + + | Blood | + + + + + | Narrative | Performed At | + + + | New reference ranges for MCV, MCHC, PLT, IG% and IG# effective | [facility] | | 01/09/2018 | LABORATORY | | | SERVICES, CORE | + + + + + + + + | Performing | Address | City/State/Zipcode | Phone Number | | Organization | | | | + + + + + | [facility] | [address] | [place] [address] | | | SERVICES, CORE | [address] | | | + + + + + COMPLETE METABOLIC SET (NA,K,CL,CO2,BUN,CREAT,GLUC,CA,AST,ALT,BILI TOTAL,ALK PHOS,ALB,PROT TOTAL) (03/27/2018 3:56 AM PDT) + +---------+ + + + | Component | Value | Ref Range | Performed | Pathologist | | | | | At | Signature | + +---------+ + + + | GLUCOSE, | 103 (H) | 70 - 99 mg/dL | [facility] | | | PLASMA | | | LABORATORY | | | (LAB) | | | SERVICES, | | | | | | CORE | | + +---------+ + + + | BUN, PLASMA | 13 | 6 - 20 mg/dL | [facility] | | | (LAB) | | | LABORATORY | | | | | | SERVICES, | | | | | | CORE | | + +---------+ + + + | CREATININE | 0.72 | 0.60 - 1.10 | [facility] | | | PLASMA | | mg/dL | LABORATORY | | | (LAB) | | | SERVICES, | | | | | | CORE | | + +---------+ + + + | EGFR | >60 | >60 mL/min | [facility] | | | - | | | LABORATORY | | | MAURITIAN | | | SERVICES, | | | | | | CORE | | + +---------+ + + + | EGFR NON | >60 | >60 mL/min | [facility] | | | -[place] | | | LABORATORY | | | RICAN | | | SERVICES, | | | | | | CORE | | + +---------+ + + + | SODIUM, | 147 (H) | 136 - 145 | [facility] | | | PLASMA | | mmol/L | LABORATORY | | | (LAB) | | | SERVICES, | | | | | | CORE | | + +---------+ + + + | POTASSIUM, | 3.3 (L) | 3.4 - 5.0 | [facility] | | | PLASMA | | mmol/L | LABORATORY | | | (LAB) | | | SERVICES, | | | | | | CORE | | + +---------+ + + + | CHLORIDE, | 111 (H) | 97 - 108 mmol/L | [facility] | | | PLASMA | | | LABORATORY | | | (LAB) | | | SERVICES, | | | | | | CORE | | + +---------+ + + + | TOTAL CO2, | 29 | 21 - 32 mmol/L | [facility] | | | PLASMA | | | LABORATORY | | | (LAB) | | | SERVICES, | | | | | | CORE | | + +---------+ + + + | CALCIUM, | 8.0 (L) | 8.6 - 10.2 | [facility] | | | PLASMA | | mg/dL | LABORATORY | | | (LAB) | | | SERVICES, | | | | | | CORE | | + +---------+ + + + | CALCIUM(ALB | 9.2 | 8.6 - 10.2 | [facility] | | | CORRECTED) | | mg/dL | LABORATORY | | | | | | SERVICES, | | | | | | CORE | | + +---------+ + + + | BILIRUBIN | 0.2 (L) | 0.3 - 1.2 mg/dL | [facility] | | | TOTAL | | | LABORATORY | | | | | | SERVICES, | | | | | | CORE | | + +---------+ + + + | TOTAL | 5.8 (L) | 6.4 - 8.2 g/dL | [facility] | | | PROTEIN, | | | LABORATORY | | | PLASMA | | | SERVICES, | | | (LAB) | | | CORE | | + +---------+ + + + | ALBUMIN, | 2.5 (L) | 3.5 - 4.7 g/dL | [facility] | | | PLASMA | | | LABORATORY | | | (LAB) | | | SERVICES, | | | | | | CORE | | + +---------+ + + + | ALK PHOS | 59 | 42 - 98 U/L | [facility] | | | | | | LABORATORY | | | | | | SERVICES, | | | | | | CORE | | + +---------+ + + + | AST(SGOT) | 19 | <=41 U/L | [facility] | | | | | | LABORATORY | | | | | | SERVICES, | | | | | | CORE | | + +---------+ + + + | ALT (SGPT) | 23 | <=60 U/L | [facility] | | | | | | LABORATORY | | | | | | SERVICES, | | | | | | CORE | | + +---------+ + + + | ANION GAP | 7 | 4 - 11 mmol/L | [facility] | | | | | | LABORATORY | | | | | | SERVICES, | | | | | | CORE | | + +---------+ + + + | ANION | 10 | 4 - 11 mmol/L | [facility] | | | GAP(ALB | | | LABORATORY | | | CORRECTED) | | | SERVICES, | | | | | | CORE | | + +---------+ + + + | POTASSIUM | No Hemo | | [facility] | | | CMNT | | | LABORATORY | | | | | | SERVICES, | | | | | | CORE | | + +---------+ + + + | BILI T CMNT | No Hemo | | [facility] | | | | | | LABORATORY | | | | | | SERVICES, | | | | | | CORE | | + +---------+ + + + | AST CMNT | No Hemo | | [facility] | | | | | | LABORATORY | | | | | | SERVICES, | | | | | | CORE | | + +---------+ + + + + + | Specimen | + + | Blood | + + + + + | Narrative | Performed At | + + + | GFR is estimated using the MDRD equation recommended by the | [facility] | | National Kidney Disease Education Program. Estimated GFR | LABORATORY | | Interpretive Information: <60 mL/min/1.73 sq | SERVICES, CORE | | m Chronic Kidney Disease <15 mL/min/1.73 | | | sq m Kidney Failure Estimated GFR greater | | | that 60 mL/min/1.73 sq m is of limited clinical value. The MDRD | | | equation is not valid in the following situations: - Patients under | | | 18 years of age - Severe malnutrition or obesity - Vegetarian diet | | | - Rapidly changing kidney function - Amputees, paraplegics, or other | | | muscle-wasting diseses | | + + + + + + + + | Performing | Address | City/State/Zipcode | Phone Number | | Organization | | | | + + + + + | [facility] | [address] | [place] [address] | | | SERVICES, CORE | [address] | | | + + + + + CBC (HEMOGRAM) ONLY (03/26/2018 6:57 AM PDT) + + + + + + | Component | Value | Ref Range | Performed | Pathologist | | | | | At | Signature | + + + + + + | WHITE CELL | 14.47 (H) | 3.50 - 10.80 | [facility] | | | COUNT | | K/cu mm | LABORATORY | | | | | | SERVICES, | | | | | | CORE | | + + + + + + | RED CELL | 3.09 (L) | 4.00 - 5.20 | [facility] | | | COUNT | | M/cu mm | LABORATORY | | | | | | SERVICES, | | | | | | CORE | | + + + + + + | HEMOGLOBIN | 9.2 (L) | 12.0 - 16.0 | [facility] | | | | | g/dL | LABORATORY | | | | | | SERVICES, | | | | | | CORE | | + + + + + + | HEMATOCRIT | 27.3 (L) | 36.0 - 46.0 % | [facility] | | | | | | LABORATORY | | | | | | SERVICES, | | | | | | CORE | | + + + + + + | MCV | 88.3 | 80.0 - 100.0 fL | [facility] | | | | | | LABORATORY | | | | | | SERVICES, | | | | | | CORE | | + + + + + + | MCHC | 33.7 | 32.0 - 36.0 | [facility] | | | | | g/dL | LABORATORY | | | | | | SERVICES, | | | | | | CORE | | + + + + + + | RDW SD | 44.7 | 35.1 - 46.3 fL | [facility] | | | | | | LABORATORY | | | | | | SERVICES, | | | | | | CORE | | + + + + + + | PLATELET | 56 (L) | 150 - 400 K/cu | [facility] | | | COUNT | | mm | LABORATORY | | | | | | SERVICES, | | | | | | CORE | | + + + + + + | MPV | 11.7 | 9.7 - 12.3 fL | [facility] | | | | | | LABORATORY | | | | | | SERVICES, | | | | | | CORE | | + + + + + + | NRBC% | 1.5 (H) | 0.0 - 0.3 % | [facility] | | | | | | LABORATORY | | | | | | SERVICES, | | | | | | CORE | | + + + + + + | NRBC# | 0.21 (H) | 0.00 - 0.02 | [facility] | | | | | K/cu mm | LABORATORY | | | | | | SERVICES, | | | | | | CORE | | + + + + + + + + | Specimen | + + | Blood | + + + + + | Narrative | Performed At | + + + | New reference ranges for MCV, MCHC, PLT, IG% and IG# effective | [facility] | | 01/09/2018 | LABORATORY | | | ANTONI ANGUIANO | + + + + + + + + | Performing | Address | City/State/Zipcode | Phone Number | | Organization | | | | + + + + + | [facility] | [address] | [place] [address] | | | ANTONI ANGUIANO | [address] | | | + + + + + LDH TOTAL, PLASMA (03/26/2018 6:56 AM PDT) + +---------+ + + + | Component | Value | Ref Range | Performed | Pathologist | | | | | At | Signature | + +---------+ + + + | LD TOTAL, | 273 (H) | <=250 U/L | [facility] | | | PLASMA | | | LABORATORY | | | | | | SERVICES, | | | | | | CORE | | + +---------+ + + + | LD CMNT | No Hemo | | [facility] | | | | | | LABORATORY | | | | | | SERVICES, | | | | | | CORE | | + +---------+ + + + + + | Specimen | + + | Blood | + + + + + + + | Performing | Address | City/State/Zipcode | Phone Number | | Organization | | | | + + + + + | [facility] | [address] | [place] [address] | | | SERVICES, CORE | [address] | | | + + + + + COMPLETE METABOLIC SET (NA,K,CL,CO2,BUN,CREAT,GLUC,CA,AST,ALT,BILI TOTAL,ALK PHOS,ALB,PROT TOTAL) (03/26/2018 6:56 AM PDT) + +---------+ + + + | Component | Value | Ref Range | Performed | Pathologist | | | | | At | Signature | + +---------+ + + + | GLUCOSE, | 107 (H) | 70 - 99 mg/dL | [facility] | | | PLASMA | | | LABORATORY | | | (LAB) | | | SERVICES, | | | | | | CORE | | + +---------+ + + + | BUN, PLASMA | 15 | 6 - 20 mg/dL | [facility] | | | (LAB) | | | LABORATORY | | | | | | SERVICES, | | | | | | CORE | | + +---------+ + + + | CREATININE | 0.65 | 0.60 - 1.10 | [facility] | | | PLASMA | | mg/dL | LABORATORY | | | (LAB) | | | SERVICES, | | | | | | CORE | | + +---------+ + + + | EGFR | >60 | >60 mL/min | [facility] | | | - | | | LABORATORY | | | MAURITIAN | | | SERVICES, | | | | | | CORE | | + +---------+ + + + | EGFR NON | >60 | >60 mL/min | [facility] | | | -[place] | | | LABORATORY | | | RICAN | | | SERVICES, | | | | | | CORE | | + +---------+ + + + | SODIUM, | 144 | 136 - 145 | [facility] | | | PLASMA | | mmol/L | LABORATORY | | | (LAB) | | | SERVICES, | | | | | | CORE | | + +---------+ + + + | POTASSIUM, | 3.5 | 3.4 - 5.0 | [facility] | | | PLASMA | | mmol/L | LABORATORY | | | (LAB) | | | SERVICES, | | | | | | CORE | | + +---------+ + + + | CHLORIDE, | 108 | 97 - 108 mmol/L | [facility] | | | PLASMA | | | LABORATORY | | | (LAB) | | | SERVICES, | | | | | | CORE | | + +---------+ + + + | TOTAL CO2, | 30 | 21 - 32 mmol/L | [facility] | | | PLASMA | | | LABORATORY | | | (LAB) | | | SERVICES, | | | | | | CORE | | + +---------+ + + + | CALCIUM, | 7.8 (L) | 8.6 - 10.2 | [facility] | | | PLASMA | | mg/dL | LABORATORY | | | (LAB) | | | SERVICES, | | | | | | CORE | | + +---------+ + + + | CALCIUM(ALB | 9.0 | 8.6 - 10.2 | [facility] | | | CORRECTED) | | mg/dL | LABORATORY | | | | | | SERVICES, | | | | | | CORE | | + +---------+ + + + | BILIRUBIN | 0.2 (L) | 0.3 - 1.2 mg/dL | [facility] | | | TOTAL | | | LABORATORY | | | | | | SERVICES, | | | | | | CORE | | + +---------+ + + + | TOTAL | 5.7 (L) | 6.4 - 8.2 g/dL | [facility] | | | PROTEIN, | | | LABORATORY | | | PLASMA | | | SERVICES, | | | (LAB) | | | CORE | | + +---------+ + + + | ALBUMIN, | 2.5 (L) | 3.5 - 4.7 g/dL | [facility] | | | PLASMA | | | LABORATORY | | | (LAB) | | | SERVICES, | | | | | | CORE | | + +---------+ + + + | ALK PHOS | 64 | 42 - 98 U/L | [facility] | | | | | | LABORATORY | | | | | | SERVICES, | | | | | | CORE | | + +---------+ + + + | AST(SGOT) | 14 | <=41 U/L | [facility] | | | | | | LABORATORY | | | | | | SERVICES, | | | | | | CORE | | + +---------+ + + + | ALT (SGPT) | 21 | <=60 U/L | [facility] | | | | | | LABORATORY | | | | | | SERVICES, | | | | | | CORE | | + +---------+ + + + | ANION GAP | 6 | 4 - 11 mmol/L | [facility] | | | | | | LABORATORY | | | | | | SERVICES, | | | | | | CORE | | + +---------+ + + + | ANION | 9 | 4 - 11 mmol/L | [facility] | | | GAP(ALB | | | LABORATORY | | | CORRECTED) | | | SERVICES, | | | | | | CORE | | + +---------+ + + + | POTASSIUM | No Hemo | | [facility] | | | CMNT | | | LABORATORY | | | | | | SERVICES, | | | | | | CORE | | + +---------+ + + + | BILI T CMNT | No Hemo | | [facility] | | | | | | LABORATORY | | | | | | SERVICES, | | | | | | CORE | | + +---------+ + + + | AST CMNT | No Hemo | | [facility] | | | | | | LABORATORY | | | | | | SERVICES, | | | | | | CORE | | + +---------+ + + + + + | Specimen | + + | Blood | + + + + + | Narrative | Performed At | + + + | GFR is estimated using the MDRD equation recommended by the | [facility] | | National Kidney Disease Education Program. Estimated GFR | LABORATORY | | Interpretive Information: <60 mL/min/1.73 sq | SERVICES, CORE | | m Chronic Kidney Disease <15 mL/min/1.73 | | | sq m Kidney Failure Estimated GFR greater | | | that 60 mL/min/1.73 sq m is of limited clinical value. The MDRD | | | equation is not valid in the following situations: - Patients under | | | 18 years of age - Severe malnutrition or obesity - Vegetarian diet | | | - Rapidly changing kidney function - Amputees, paraplegics, or other | | | muscle-wasting diseses | | + + + + + + + + | Performing | Address | City/State/Zipcode | Phone Number | | Organization | | | | + + + + + | [facility] | [address] | [place] [address] | | | SERVICES, CORE | [address] | | | + + + + + PRODUCT - RED CELLS LEUKOREDUCED (03/26/2018 3:39 AM PDT) + + + + + + | Component | Value | Ref Range | Performed | Pathologist | | | | | At | Signature | + + + + + + | PRODUCT | -1 RED BLOOD CELL | | [facility] | | | DESCRIPTION | ADENINE-SALINE ADDED | | LABORATORY | | | | LEUKOCYTE | | SERVICES, | | | | | | TRANSFUSION | | | | | | MEDICINE | | + + + + + + | PRODUCT | [id number] | | [facility] | | | UNIT # | | | LABORATORY | | | | | | SERVICES, | | | | | | TRANSFUSION | | | | | | MEDICINE | | + + + + + + | UNIT ABO | A | | [facility] | | | | | | LABORATORY | | | | | | SERVICES, | | | | | | TRANSFUSION | | | | | | MEDICINE | | + + + + + + | UNIT RH | POS | | [facility] | | | | | | LABORATORY | | | | | | SERVICES, | | | | | | TRANSFUSION | | | | | | MEDICINE | | + + + + + + | STATUS OF | Presumed Transfused | | [facility] | | | UNIT | | | LABORATORY | | | | | | SERVICES, | | | | | | TRANSFUSION | | | | | | MEDICINE | | + + + + + + | EXPIRATION | [id number] | | [facility] | | | DATE | | | LABORATORY | | | | | | SERVICES, | | | | | | TRANSFUSION | | | | | | MEDICINE | | + + + + + + | BLOOD TYPE | [id number] | | [facility] | | | BARCODE | | | LABORATORY | | | | | | SERVICES, | | | | | | TRANSFUSION | | | | | | MEDICINE | | + + + + + + | BLOOD | [id number] | | [facility] | | | PRODUCT | | | LABORATORY | | | CODE | | | SERVICES, | | | | | | TRANSFUSION | | | | | | MEDICINE | | + + + + + + + + | Specimen | + + | | + + + + + + + | Performing | Address | City/State/Zipcode | Phone Number | | Organization | | | | + + + + + | [facility] | [address] | [place] [address] | | | SERVICES, | [address] | | | | TRANSFUSION MEDICINE | | | | + + + + + VANCOMYCIN, TROUGH (03/26/2018 1:30 AM PDT) + + + + + + | Component | Value | Ref Range | Performed | Pathologist | | | | | At | Signature | + + + + + + | VANCOMYCIN, | 20.3 (H) | 10.0 - 20.0 | [facility] | | | TROUGH | | ug/mL | LABORATORY | | | | | | SERVICES, | | | | | | CORE | | + + + + + + + + | Specimen | + + | Blood | + + + + + + + | Performing | Address | City/State/Zipcode | Phone Number | | Organization | | | | + + + + + | [facility] | [address] | [place] [address] | | | SERVICES, CORE | [address] | | | + + + + + CBC (HEMOGRAM) ONLY (03/25/2018 11:01 PM PDT) + + + + + + | Component | Value | Ref Range | Performed | Pathologist | | | | | At | Signature | + + + + + + | WHITE CELL | 14.95 (H) | 3.50 - 10.80 | [facility] | | | COUNT | | K/cu mm | LABORATORY | | | | | | SERVICES, | | | | | | CORE | | + + + + + + | RED CELL | 2.19 (L) | 4.00 - 5.20 | [facility] | | | COUNT | | M/cu mm | LABORATORY | | | | | | SERVICES, | | | | | | CORE | | + + + + + + | HEMOGLOBIN | 6.6 (L) | 12.0 - 16.0 | [facility] | | | | | g/dL | LABORATORY | | | | | | SERVICES, | | | | | | CORE | | + + + + + + | HEMATOCRIT | 19.2 (L) | 36.0 - 46.0 % | [facility] | | | | | | LABORATORY | | | | | | SERVICES, | | | | | | CORE | | + + + + + + | MCV | 87.7 | 80.0 - 100.0 fL | [facility] | | | | | | LABORATORY | | | | | | SERVICES, | | | | | | CORE | | + + + + + + | MCHC | 34.4 | 32.0 - 36.0 | [facility] | | | | | g/dL | LABORATORY | | | | | | SERVICES, | | | | | | CORE | | + + + + + + | RDW SD | 42.8 | 35.1 - 46.3 fL | [facility] | | | | | | LABORATORY | | | | | | SERVICES, | | | | | | CORE | | + + + + + + | PLATELET | 54 (L) | 150 - 400 K/cu | [facility] | | | COUNT | | mm | LABORATORY | | | | | | SERVICES, | | | | | | CORE | | + + + + + + | MPV | 11.0 | 9.7 - 12.3 fL | [facility] | | | | | | LABORATORY | | | | | | SERVICES, | | | | | | CORE | | + + + + + + | NRBC% | 0.7 (H) | 0.0 - 0.3 % | [facility] | | | | | | LABORATORY | | | | | | SERVICES, | | | | | | CORE | | + + + + + + | NRBC# | 0.10 (H) | 0.00 - 0.02 | [facility] | | | | | K/cu mm | LABORATORY | | | | | | SERVICES, | | | | | | CORE | | + + + + + + + + | Specimen | + + | Blood | + + + + + | Narrative | Performed At | + + + | New reference ranges for MCV, MCHC, PLT, IG% and IG# effective | [facility] | | 01/09/2018 | LABORATORY | | | ANTONI ANGUIANO | + + + + + + + + | Performing | Address | City/State/Zipcode | Phone Number | | Organization | | | | + + + + + | [facility] | [address] | [place] [address] | | | ANTONI ANGUIANO | [address] | | | + + + + + PRODUCT - RED CELLS LEUKOREDUCED (03/25/2018 7:05 PM PDT) + + + + + + | Component | Value | Ref Range | Performed | Pathologist | | | | | At | Signature | + + + + + + | PRODUCT | -1 RED BLOOD CELL | | [facility] | | | DESCRIPTION | ADENINE-SALINE ADDED | | LABORATORY | | | | LEUKOCYTE | | SERVICES, | | | | | | TRANSFUSION | | | | | | MEDICINE | | + + + + + + | PRODUCT | [id number] | | [facility] | | | UNIT # | | | LABORATORY | | | | | | SERVICES, | | | | | | TRANSFUSION | | | | | | MEDICINE | | + + + + + + | UNIT ABO | A | | [facility] | | | | | | LABORATORY | | | | | | SERVICES, | | | | | | TRANSFUSION | | | | | | MEDICINE | | + + + + + + | UNIT RH | POS | | [facility] | | | | | | LABORATORY | | | | | | SERVICES, | | | | | | TRANSFUSION | | | | | | MEDICINE | | + + + + + + | STATUS OF | Returned to Blood Bank | | [facility] | | | UNIT | | | LABORATORY | | | | | | SERVICES, | | | | | | TRANSFUSION | | | | | | MEDICINE | | + + + + + + | EXPIRATION | [id number] | | [facility] | | | DATE | | | LABORATORY | | | | | | SERVICES, | | | | | | TRANSFUSION | | | | | | MEDICINE | | + + + + + + | BLOOD TYPE | [phone] | | [facility] | | | BARCODE | | | LABORATORY | | | | | | SERVICES, | | | | | | TRANSFUSION | | | | | | MEDICINE | | + + + + + + | BLOOD | [id number] | | [facility] | | | PRODUCT | | | LABORATORY | | | CODE | | | SERVICES, | | | | | | TRANSFUSION | | | | | | MEDICINE | | + + + + + + + + | Specimen | + + | | + + + + + + + | Performing | Address | City/State/Zipcode | Phone Number | | Organization | | | | + + + + + | [facility] | [address] | [place] [address] | | | SERVICES, | [address] | | | | TRANSFUSION MEDICINE | | | | + + + + + RBC MORPHOLOGY (03/25/2018 6:03 PM PDT) + +---------+ + + + | Component | Value | Ref Range | Performed | Pathologist | | | | | At | Signature | + +---------+ + + + | DOHLE | Present | | [facility] | | | BODIES | | | LABORATORY | | | | | | SERVICES, | | | | | | CORE | | + +---------+ + + + | TOXIC | Present | | [facility] | | | GRANULATION | | | LABORATORY | | | | | | SERVICES, | | | | | | CORE | | + +---------+ + + + + + | Specimen | + + | Blood | + + + + + + + | Performing | Address | City/State/Zipcode | Phone Number | | Organization | | | | + + + + + | [facility] | [address] | [place] [address] | | | SERVICES, CORE | [address] | | | + + + + + MANUAL DIFFERENTIAL (03/25/2018 6:03 PM PDT) + + + + + + | Component | Value | Ref Range | Performed | Pathologist | | | | | At | Signature | + + + + + + | NEUTROPHIL | 69.6 | 50.0 - 70.0 % | [facility] | | | % | | | LABORATORY | | | | | | SERVICES, | | | | | | CORE | | + + + + + + | LYMPHOCYTE | 14.8 (L) | 18.0 - 42.0 % | [facility] | | | % | | | LABORATORY | | | | | | SERVICES, | | | | | | CORE | | + + + + + + | MONOCYTE % | 4.3 | 3.5 - 9.0 % | [facility] | | | | | | LABORATORY | | | | | | SERVICES, | | | | | | CORE | | + + + + + + | EOSINOPHIL | 0.0 (L) | 1.0 - 3.0 % | [facility] | | | % | | | LABORATORY | | | | | | SERVICES, | | | | | | CORE | | + + + + + + | BASOPHIL % | 0.0 | 0.0 - 2.0 % | [facility] | | | | | | LABORATORY | | | | | | SERVICES, | | | | | | CORE | | + + + + + + | IG% | 10.4 (H)Comment: | 0.0 - 1.0 % | [facility] | | | | Increased immature | | LABORATORY | | | | granulocytes(IG)define a | | SERVICES, | | | | left shift.IGs include | | CORE | | | | metamyelocytes, | | | | | | myelocytes and | | | | | | promyelocytes. Bands are | | | | | | included in the | | | | | | neutrophil count, not | | | | | | the IG count, except in | | | | | | neonates <=60 days old | | | | | | where bands are reported | | | | | | in a manual diff. | | | | + + + + + + | ATYPICAL | 0.9 (H) | 0.0 % | [facility] | | | CELL % | | | LABORATORY | | | | | | SERVICES, | | | | | | CORE | | + + + + + + | NEUTROPHIL | 10.53 (H) | 1.80 - 7.70 | [facility] | | | # | | K/cu mm | LABORATORY | | | | | | SERVICES, | | | | | | CORE | | + + + + + + | LYMPHOCYTE | 2.24 | 1.00 - 4.80 | [facility] | | | # | | K/cu mm | LABORATORY | | | | | | SERVICES, | | | | | | CORE | | + + + + + + | MONOCYTE # | 0.65 | 0.10 - 0.90 | [facility] | | | | | K/cu mm | LABORATORY | | | | | | SERVICES, | | | | | | CORE | | + + + + + + | EOSINOPHIL | 0.00 | 0.00 - 0.50 | [facility] | | | # | | K/cu mm | LABORATORY | | | | | | SERVICES, | | | | | | CORE | | + + + + + + | BASOPHIL # | 0.00 | 0.00 - 0.10 | [facility] | | | | | K/cu mm | LABORATORY | | | | | | SERVICES, | | | | | | CORE | | + + + + + + | IG# | 1.57 (H) | 0.00 - 0.10 | [facility] | | | | | K/cu mm | LABORATORY | | | | | | SERVICES, | | | | | | CORE | | + + + + + + | ATYPICAL | 0.14 | K/cu mm | [facility] | | | CELLS # | | | LABORATORY | | | | | | SERVICES, | | | | | | CORE | | + + + + + + + + | Specimen | + + | Blood | + + + + + | Narrative | Performed At | + + + | New pediatric reference ranges for Lymphocyte % in effect February 13, | [facility] | | 2018. Increased immature granulocytes(IG)define a left shift.IGs | LABORATORY | | include metamyelocytes, myelocytes and promyelocytes. Bands are | SERVICES, CORE | | included in the neutrophil count, not the IG count, except in neonates | | | <=60 days old where bands are reported in a manual diff. | | + + + + + + + + | Performing | Address | City/State/Zipcode | Phone Number | | Organization | | | | + + + + + | [facility] | [address] | [place] [address] | | | SERVICES, CORE | [address] | | | + + + + + RETICULOCYTE COUNT (03/25/2018 6:03 PM PDT) + +---------+ + + + | Component | Value | Ref Range | Performed | Pathologist | | | | | At | Signature | + +---------+ + + + | RETICULOCYT | 0.5 | 0.5 - 1.5 % | [facility] | | | E COUNT | | | LABORATORY | | | | | | SERVICES, | | | | | | CORE | | + +---------+ + + + | RETIC | 9.3 (L) | 10.0 - 90.0 | [facility] | | | ABSOLUTE # | | K/cu mm | LABORATORY | | | | | | SERVICES, | | | | | | CORE | | + +---------+ + + + + + | Specimen | + + | Blood | + + + + + + + | Performing | Address | City/State/Zipcode | Phone Number | | Organization | | | | + + + + + | [facility] | [address] | [place] [address] | | | SERVICES, CORE | [address] | | | + + + + + CBC AND AUTO DIFF (03/25/2018 6:03 PM PDT) + + + + + + | Component | Value | Ref Range | Performed | Pathologist | | | | | At | Signature | + + + + + + | WHITE CELL | 15.13 (H) | 3.50 - 10.80 | [facility] | | | COUNT | | K/cu mm | LABORATORY | | | | | | SERVICES, | | | | | | CORE | | + + + + + + | RED CELL | 2.06 (L) | 4.00 - 5.20 | [facility] | | | COUNT | | M/cu mm | LABORATORY | | | | | | SERVICES, | | | | | | CORE | | + + + + + + | HEMOGLOBIN | 6.1 (L) | 12.0 - 16.0 | [facility] | | | | | g/dL | LABORATORY | | | | | | SERVICES, | | | | | | CORE | | + + + + + + | HEMATOCRIT | 18.0 (LL) | 36.0 - 46.0 % | [facility] | | | | | | LABORATORY | | | | | | SERVICES, | | | | | | CORE | | + + + + + + | MCV | 87.4 | 80.0 - 100.0 fL | [facility] | | | | | | LABORATORY | | | | | | SERVICES, | | | | | | CORE | | + + + + + + | MCHC | 33.9 | 32.0 - 36.0 | [facility] | | | | | g/dL | LABORATORY | | | | | | SERVICES, | | | | | | CORE | | + + + + + + | RDW SD | 43.0 | 35.1 - 46.3 fL | [facility] | | | | | | LABORATORY | | | | | | SERVICES, | | | | | | CORE | | + + + + + + | PLATELET | 55 (L)Comment: Macro | 150 - 400 K/cu | [facility] | | | COUNT | platelets present. | mm | LABORATORY | | | | | | SERVICES, | | | | | | CORE | | + + + + + + | MPV | 11.4 | 9.7 - 12.3 fL | [facility] | | | | | | LABORATORY | | | | | | SERVICES, | | | | | | CORE | | + + + + + + | NRBC% | 0.6 (H) | 0.0 - 0.3 % | [facility] | | | | | | LABORATORY | | | | | | SERVICES, | | | | | | CORE | | + + + + + + | NRBC# | 0.09 (H) | 0.00 - 0.02 | [facility] | | | | | K/cu mm | LABORATORY | | | | | | SERVICES, | | | | | | CORE | | + + + + + + + + | Specimen | + + | Blood | + + + + + | Narrative | Performed At | + + + | New reference ranges for MCV, MCHC, PLT, IG% and IG# effective | [facility] | | 01/09/2018 | LABORATORY | | | SERVICES, CORE | + + + + + + + + | Performing | Address | City/State/Zipcode | Phone Number | | Organization | | | | + + + + + | [facility] | [address] | [place] [address] | | | SERVICES, CORE | [address] | | | + + + + + RBC MORPHOLOGY (03/25/2018 6:23 AM PDT) + + + + + + | Component | Value | Ref Range | Performed | Pathologist | | | | | At | Signature | + + + + + + | ZHANNA | Present | | [facility] | | | BODIES | | | LABORATORY | | | | | | SERVICES, | | | | | | CORE | | + + + + + + | TOXIC | Present | | [facility] | | | GRANULATION | | | LABORATORY | | | | | | SERVICES, | | | | | | CORE | | + + + + + + | ANISOCYTOSI | 1+(10-25cells/HPF) | | [facility] | | | S | | | LABORATORY | | | | | | SERVICES, | | | | | | CORE | | + + + + + + | MICROCYTOSI | 1+(10-25cells/HPF) | | [facility] | | | S | | | LABORATORY | | | | | | SERVICES, | | | | | | CORE | | + + + + + + | SCHISTOCYTE | 1+ (<1-2cells/HPF) | | [facility] | | | S | | | LABORATORY | | | | | | SERVICES, | | | | | | CORE | | + + + + + + | TEAR DROP | 1+ (<1-2cells/HPF) | | [facility] | | | CELLS | | | LABORATORY | | | | | | SERVICES, | | | | | | CORE | | + + + + + + + + | Specimen | + + | Blood | + + + + + + + | Performing | Address | City/State/Zipcode | Phone Number | | Organization | | | | + + + + + | [facility] | [address] | [place] [address] | | | SERVICES, CORE | [address] | | | + + + + + CBC AND AUTO DIFF (03/25/2018 6:23 AM PDT) + + + + + + | Component | Value | Ref Range | Performed | Pathologist | | | | | At | Signature | + + + + + + | WHITE CELL | 14.42 (H) | 3.50 - 10.80 | [facility] | | | COUNT | | K/cu mm | LABORATORY | | | | | | SERVICES, | | | | | | CORE | | + + + + + + | RED CELL | 2.04 (L) | 4.00 - 5.20 | [facility] | | | COUNT | | M/cu mm | LABORATORY | | | | | | SERVICES, | | | | | | CORE | | + + + + + + | HEMOGLOBIN | 6.1 (L) | 12.0 - 16.0 | [facility] | | | | | g/dL | LABORATORY | | | | | | SERVICES, | | | | | | CORE | | + + + + + + | HEMATOCRIT | 17.8 (LL) | 36.0 - 46.0 % | [facility] | | | | | | LABORATORY | | | | | | SERVICES, | | | | | | CORE | | + + + + + + | MCV | 87.3 | 80.0 - 100.0 fL | [facility] | | | | | | LABORATORY | | | | | | SERVICES, | | | | | | CORE | | + + + + + + | MCHC | 34.3 | 32.0 - 36.0 | [facility] | | | | | g/dL | LABORATORY | | | | | | SERVICES, | | | | | | CORE | | + + + + + + | RDW SD | 43.8 | 35.1 - 46.3 fL | [facility] | | | | | | LABORATORY | | | | | | SERVICES, | | | | | | CORE | | + + + + + + | PLATELET | 69 (L) | 150 - 400 K/cu | [facility] | | | COUNT | | mm | LABORATORY | | | | | | SERVICES, | | | | | | CORE | | + + + + + + | MPV | 10.5 | 9.7 - 12.3 fL | [facility] | | | | | | LABORATORY | | | | | | SERVICES, | | | | | | CORE | | + + + + + + | NRBC% | 0.8 (H) | 0.0 - 0.3 % | [facility] | | | | | | LABORATORY | | | | | | SERVICES, | | | | | | CORE | | + + + + + + | NRBC# | 0.12 (H) | 0.00 - 0.02 | [facility] | | | | | K/cu mm | LABORATORY | | | | | | SERVICES, | | | | | | CORE | | + + + + + + | NEUTROPHIL | 56.9 | 50.0 - 70.0 % | [facility] | | | % | | | LABORATORY | | | | | | SERVICES, | | | | | | CORE | | + + + + + + | LYMPHOCYTE | 8.5 (L) | 18.0 - 42.0 % | [facility] | | | % | | | LABORATORY | | | | | | SERVICES, | | | | | | CORE | | + + + + + + | MONOCYTE % | 17.7 (H) | 3.5 - 9.0 % | [facility] | | | | | | LABORATORY | | | | | | SERVICES, | | | | | | CORE | | + + + + + + | EOS % | 0.1 (L) | 1.0 - 3.0 % | [facility] | | | | | | LABORATORY | | | | | | SERVICES, | | | | | | CORE | | + + + + + + | BASO % | 0.9 | 0.0 - 2.0 % | [facility] | | | | | | LABORATORY | | | | | | SERVICES, | | | | | | CORE | | + + + + + + | IG% | 15.9 (H)Comment: | 0.0 - 1.0 % | [facility] | | | | Increased immature | | LABORATORY | | | | granulocytes (IG) define | | SERVICES, | | | | a left shift. Immature | | CORE | | | | granulocytes (IG) are | | | | | | an automated count of | | | | | | metamyelocytes, | | | | | | myelocytes and | | | | | | promyelocytes. Bands | | | | | | are not included in the | | | | | | IG count. Bands are | | | | | | included in the | | | | | | neutrophil count. | | | | + + + + + + | NEUTROPHIL | 8.21 (H) | 1.80 - 7.70 | [facility] | | | # | | K/cu mm | LABORATORY | | | | | | SERVICES, | | | | | | CORE | | + + + + + + | LYMPHOCYTE | 1.22 | 1.00 - 4.80 | [facility] | | | # | | K/cu mm | LABORATORY | | | | | | SERVICES, | | | | | | CORE | | + + + + + + | MONOCYTE # | 2.55 (H) | 0.10 - 0.90 | [facility] | | | | | K/cu mm | LABORATORY | | | | | | SERVICES, | | | | | | CORE | | + + + + + + | EOS # | 0.02 | 0.00 - 0.50 | [facility] | | | | | K/cu mm | LABORATORY | | | | | | SERVICES, | | | | | | CORE | | + + + + + + | BASO # | 0.13 (H) | 0.00 - 0.10 | [facility] | | | | | K/cu mm | LABORATORY | | | | | | SERVICES, | | | | | | CORE | | + + + + + + | IG# | 2.29 (H) | 0.00 - 0.10 | [facility] | | | | | K/cu mm | LABORATORY | | | | | | SERVICES, | | | | | | CORE | | + + + + + + + + | Specimen | + + | Blood | + + + + + | Narrative | Performed At | + + + | New pediatric reference ranges for Lymphocyte % in effect February 13, | [facility] | | 2018. New reference ranges for MCV, MCHC, PLT, IG% and IG# | LABORATORY | | effective 01/09/2018 Increased immature granulocytes (IG) define a | SERVICES, CORE | | left shift. Immature granulocytes (IG) are an automated count of | | | metamyelocytes, myelocytes and promyelocytes. Bands are not included | | | in the IG count. Bands are included in the neutrophil count. | | + + + + + + + + | Performing | Address | City/State/Zipcode | Phone Number | | Organization | | | | + + + + + | [facility] | [address] | [place] [address] | | | SERVICES, CORE | [address] | | | + + + + + COMPLETE METABOLIC SET (NA,K,CL,CO2,BUN,CREAT,GLUC,CA,AST,ALT,BILI TOTAL,ALK PHOS,ALB,PROT TOTAL) (03/25/2018 6:23 AM PDT) + +---------+ + + + | Component | Value | Ref Range | Performed | Pathologist | | | | | At | Signature | + +---------+ + + + | GLUCOSE, | 156 (H) | 70 - 99 mg/dL | [facility] | | | PLASMA | | | LABORATORY | | | (LAB) | | | SERVICES, | | | | | | CORE | | + +---------+ + + + | BUN, PLASMA | 12 | 6 - 20 mg/dL | [facility] | | | (LAB) | | | LABORATORY | | | | | | SERVICES, | | | | | | CORE | | + +---------+ + + + | CREATININE | 0.65 | 0.60 - 1.10 | [facility] | | | PLASMA | | mg/dL | LABORATORY | | | (LAB) | | | SERVICES, | | | | | | CORE | | + +---------+ + + + | EGFR | >60 | >60 mL/min | [facility] | | | - | | | LABORATORY | | | MAURITIAN | | | SERVICES, | | | | | | CORE | | + +---------+ + + + | EGFR NON | >60 | >60 mL/min | [facility] | | | -[place] | | | LABORATORY | | | RICAN | | | SERVICES, | | | | | | CORE | | + +---------+ + + + | SODIUM, | 138 | 136 - 145 | [facility] | | | PLASMA | | mmol/L | LABORATORY | | | (LAB) | | | SERVICES, | | | | | | CORE | | + +---------+ + + + | POTASSIUM, | 3.5 | 3.4 - 5.0 | [facility] | | | PLASMA | | mmol/L | LABORATORY | | | (LAB) | | | SERVICES, | | | | | | CORE | | + +---------+ + + + | CHLORIDE, | 103 | 97 - 108 mmol/L | [facility] | | | PLASMA | | | LABORATORY | | | (LAB) | | | SERVICES, | | | | | | CORE | | + +---------+ + + + | TOTAL CO2, | 31 | 21 - 32 mmol/L | [facility] | | | PLASMA | | | LABORATORY | | | (LAB) | | | SERVICES, | | | | | | CORE | | + +---------+ + + + | CALCIUM, | 7.9 (L) | 8.6 - 10.2 | [facility] | | | PLASMA | | mg/dL | LABORATORY | | | (LAB) | | | SERVICES, | | | | | | CORE | | + +---------+ + + + | CALCIUM(ALB | 9.0 | 8.6 - 10.2 | [facility] | | | CORRECTED) | | mg/dL | LABORATORY | | | | | | SERVICES, | | | | | | CORE | | + +---------+ + + + | BILIRUBIN | 0.3 | 0.3 - 1.2 mg/dL | [facility] | | | TOTAL | | | LABORATORY | | | | | | SERVICES, | | | | | | CORE | | + +---------+ + + + | TOTAL | 6.0 (L) | 6.4 - 8.2 g/dL | [facility] | | | PROTEIN, | | | LABORATORY | | | PLASMA | | | SERVICES, | | | (LAB) | | | CORE | | + +---------+ + + + | ALBUMIN, | 2.6 (L) | 3.5 - 4.7 g/dL | [facility] | | | PLASMA | | | LABORATORY | | | (LAB) | | | SERVICES, | | | | | | CORE | | + +---------+ + + + | ALK PHOS | 45 | 42 - 98 U/L | [facility] | | | | | | LABORATORY | | | | | | SERVICES, | | | | | | CORE | | + +---------+ + + + | AST(SGOT) | 16 | <=41 U/L | [facility] | | | | | | LABORATORY | | | | | | SERVICES, | | | | | | CORE | | + +---------+ + + + | ALT (SGPT) | 24 | <=60 U/L | [facility] | | | | | | LABORATORY | | | | | | SERVICES, | | | | | | CORE | | + +---------+ + + + | ANION GAP | 4 | 4 - 11 mmol/L | [facility] | | | | | | LABORATORY | | | | | | SERVICES, | | | | | | CORE | | + +---------+ + + + | ANION | 7 | 4 - 11 mmol/L | [facility] | | | GAP(ALB | | | LABORATORY | | | CORRECTED) | | | SERVICES, | | | | | | CORE | | + +---------+ + + + | POTASSIUM | No Hemo | | [facility] | | | CMNT | | | LABORATORY | | | | | | SERVICES, | | | | | | CORE | | + +---------+ + + + | BILI T CMNT | No Hemo | | [facility] | | | | | | LABORATORY | | | | | | SERVICES, | | | | | | CORE | | + +---------+ + + + | AST CMNT | No Hemo | | [facility] | | | | | | LABORATORY | | | | | | SERVICES, | | | | | | CORE | | + +---------+ + + + + + | Specimen | + + | Blood | + + + + + | Narrative | Performed At | + + + | GFR is estimated using the MDRD equation recommended by the | [facility] | | National Kidney Disease Education Program. Estimated GFR | LABORATORY | | Interpretive Information: <60 mL/min/1.73 sq | SERVICES, [facility] | | m Chronic Kidney Disease <15 mL/min/1.73 | | | sq m Kidney Failure Estimated GFR greater | | | that 60 mL/min/1.73 sq m is of limited clinical value. The MDRD | | | equation is not valid in the following situations: - Patients under | | | 18 years of age - Severe malnutrition or obesity - Vegetarian diet | | | - Rapidly changing kidney function - Amputees, paraplegics, or other | | | muscle-wasting diseses | | + + + + + + + + | Performing | Address | City/State/Zipcode | Phone Number | | Organization | | | | + + + + + | [facility] | [address] | [place] [address] | | | SERVICES, CORE | [address] | | | + + + + + PRODUCT - RED CELLS LEUKOREDUCED (03/25/2018 3:02 AM PDT) + + + + + + | Component | Value | Ref Range | Performed | Pathologist | | | | | At | Signature | + + + + + + | PRODUCT | -1 RED BLOOD CELL | | [facility] | | | DESCRIPTION | ADENINE-SALINE ADDED | | LABORATORY | | | | LEUKOCYTE | | SERVICES, | | | | | | TRANSFUSION | | | | | | MEDICINE | | + + + + + + | PRODUCT | [id number] | | [facility] | | | UNIT # | | | LABORATORY | | | | | | SERVICES, | | | | | | TRANSFUSION | | | | | | MEDICINE | | + + + + + + | UNIT ABO | A | | [facility] | | | | | | LABORATORY | | | | | | SERVICES, | | | | | | TRANSFUSION | | | | | | MEDICINE | | + + + + + + | UNIT RH | POS | | [facility] | | | | | | LABORATORY | | | | | | SERVICES, | | | | | | TRANSFUSION | | | | | | MEDICINE | | + + + + + + | STATUS OF | Presumed Transfused | | [facility] | | | UNIT | | | LABORATORY | | | | | | SERVICES, | | | | | | TRANSFUSION | | | | | | MEDICINE | | + + + + + + | EXPIRATION | [id number] | | [facility] | | | DATE | | | LABORATORY | | | | | | SERVICES, | | | | | | TRANSFUSION | | | | | | MEDICINE | | + + + + + + | BLOOD TYPE | [phone] | | [facility] | | | BARCODE | | | LABORATORY | | | | | | SERVICES, | | | | | | TRANSFUSION | | | | | | MEDICINE | | + + + + + + | BLOOD | [id number] | | [facility] | | | PRODUCT | | | LABORATORY | | | CODE | | | SERVICES, | | | | | | TRANSFUSION | | | | | | MEDICINE | | + + + + + + + + | Specimen | + + | | + + + + + + + | Performing | Address | City/State/Zipcode | Phone Number | | Organization | | | | + + + + + | [facility] | [address] | [place] [address] | | | SERVICES, | [address] | | | | TRANSFUSION MEDICINE | | | | + + + + + RBC MORPHOLOGY (03/25/2018 2:23 AM PDT) + + + + + + | Component | Value | Ref Range | Performed | Pathologist | | | | | At | Signature | + + + + + + | KATHLEENE | Present | | [facility] | | | BODIES | | | LABORATORY | | | | | | SERVICES, | | | | | | CORE | | + + + + + + | TOXIC | Present | | [facility] | | | GRANULATION | | | LABORATORY | | | | | | SERVICES, | | | | | | CORE | | + + + + + + | ANISOCYTOSI | 1+(10-25cells/HPF) | | [facility] | | | S | | | LABORATORY | | | | | | SERVICES, | | | | | | CORE | | + + + + + + | MICROCYTOSI | 1+(10-25cells/HPF) | | [facility] | | | S | | | LABORATORY | | | | | | SERVICES, | | | | | | CORE | | + + + + + + | OVALOCYTES | 1+(10-25cells/HPF) | | [facility] | | | | | | LABORATORY | | | | | | SERVICES, | | | | | | CORE | | + + + + + + + + | Specimen | + + | Blood | + + + + + + + | Performing | Address | City/State/Zipcode | Phone Number | | Organization | | | | + + + + + | [facility] | [address] | [place] [address] | | | SERVICES, CORE | [address] | | | + + + + + MANUAL DIFFERENTIAL (03/25/2018 2:23 AM PDT) + + + + + + | Component | Value | Ref Range | Performed | Pathologist | | | | | At | Signature | + + + + + + | NEUTROPHIL | 74.7 (H) | 50.0 - 70.0 % | [facility] | | | % | | | LABORATORY | | | | | | SERVICES, | | | | | | CORE | | + + + + + + | LYMPHOCYTE | 12.1 (L) | 18.0 - 42.0 % | [facility] | | | % | | | LABORATORY | | | | | | SERVICES, | | | | | | CORE | | + + + + + + | MONOCYTE % | 10.8 (H) | 3.5 - 9.0 % | [facility] | | | | | | LABORATORY | | | | | | SERVICES, | | | | | | CORE | | + + + + + + | EOSINOPHIL | 0.0 (L) | 1.0 - 3.0 % | [facility] | | | % | | | LABORATORY | | | | | | SERVICES, | | | | | | CORE | | + + + + + + | BASOPHIL % | 0.0 | 0.0 - 2.0 % | [facility] | | | | | | LABORATORY | | | | | | SERVICES, | | | | | | CORE | | + + + + + + | IG% | 2.4 (H)Comment: | 0.0 - 1.0 % | [facility] | | | | Increased immature | | LABORATORY | | | | granulocytes(IG)define a | | SERVICES, | | | | left shift.IGs include | | CORE | | | | metamyelocytes, | | | | | | myelocytes and | | | | | | promyelocytes. Bands are | | | | | | included in the | | | | | | neutrophil count, not | | | | | | the IG count, except in | | | | | | neonates <=60 days old | | | | | | where bands are reported | | | | | | in a manual diff. | | | | + + + + + + | NEUTROPHIL | 7.81 (H) | 1.80 - 7.70 | [facility] | | | # | | K/cu mm | LABORATORY | | | | | | SERVICES, | | | | | | CORE | | + + + + + + | LYMPHOCYTE | 1.27 | 1.00 - 4.80 | [facility] | | | # | | K/cu mm | LABORATORY | | | | | | SERVICES, | | | | | | CORE | | + + + + + + | MONOCYTE # | 1.13 (H) | 0.10 - 0.90 | [facility] | | | | | K/cu mm | LABORATORY | | | | | | SERVICES, | | | | | | CORE | | + + + + + + | EOSINOPHIL | 0.00 | 0.00 - 0.50 | [facility] | | | # | | K/cu mm | LABORATORY | | | | | | SERVICES, | | | | | | CORE | | + + + + + + | BASOPHIL # | 0.00 | 0.00 - 0.10 | [facility] | | | | | K/cu mm | LABORATORY | | | | | | SERVICES, | | | | | | CORE | | + + + + + + | IG# | 0.25 (H) | 0.00 - 0.10 | [facility] | | | | | K/cu mm | LABORATORY | | | | | | SERVICES, | | | | | | CORE | | + + + + + + + + | Specimen | + + | Blood | + + + + + | Narrative | Performed At | + + + | New pediatric reference ranges for Lymphocyte % in effect February 13, | [facility] | | 2018. Increased immature granulocytes(IG)define a left shift.IGs | LABORATORY | | include metamyelocytes, myelocytes and promyelocytes. Bands are | SERVICES, CORE | | included in the neutrophil count, not the IG count, except in neonates | | | <=60 days old where bands are reported in a manual diff. | | + + + + + + + + | Performing | Address | City/State/Zipcode | Phone Number | | Organization | | | | + + + + + | [facility] | [address] | [place] [address] | | | SERVICES, CORE | [address] | | | + + + + + CBC AND AUTO DIFF (03/25/2018 2:23 AM PDT) + + + + + + | Component | Value | Ref Range | Performed | Pathologist | | | | | At | Signature | + + + + + + | WHITE CELL | 10.46 | 3.50 - 10.80 | [facility] | | | COUNT | | K/cu mm | LABORATORY | | | | | | SERVICES, | | | | | | CORE | | + + + + + + | RED CELL | 1.70 (L) | 4.00 - 5.20 | [facility] | | | COUNT | | M/cu mm | LABORATORY | | | | | | SERVICES, | | | | | | CORE | | + + + + + + | HEMOGLOBIN | 5.3 (LL) | 12.0 - 16.0 | [facility] | | | | | g/dL | LABORATORY | | | | | | SERVICES, | | | | | | CORE | | + + + + + + | HEMATOCRIT | 14.9 (LL) | 36.0 - 46.0 % | [facility] | | | | | | LABORATORY | | | | | | SERVICES, | | | | | | CORE | | + + + + + + | MCV | 87.6 | 80.0 - 100.0 fL | [facility] | | | | | | LABORATORY | | | | | | SERVICES, | | | | | | CORE | | + + + + + + | MCHC | 35.6 | 32.0 - 36.0 | [facility] | | | | | g/dL | LABORATORY | | | | | | SERVICES, | | | | | | CORE | | + + + + + + | RDW SD | 44.9 | 35.1 - 46.3 fL | [facility] | | | | | | LABORATORY | | | | | | SERVICES, | | | | | | CORE | | + + + + + + | PLATELET | 69 (L)Comment: | 150 - 400 K/cu | [facility] | | | COUNT | Macroplatelets present. | mm | LABORATORY | | | | | | SERVICES, | | | | | | CORE | | + + + + + + | MPV | 10.8 | 9.7 - 12.3 fL | [facility] | | | | | | LABORATORY | | | | | | SERVICES, | | | | | | CORE | | + + + + + + | NRBC% | 0.7 (H) | 0.0 - 0.3 % | [facility] | | | | | | LABORATORY | | | | | | SERVICES, | | | | | | CORE | | + + + + + + | NRBC# | 0.07 (H) | 0.00 - 0.02 | [facility] | | | | | K/cu mm | LABORATORY | | | | | | SERVICES, | | | | | | CORE | | + + + + + + + + | Specimen | + + | Blood | + + + + + | Narrative | Performed At | + + + | New reference ranges for MCV, MCHC, PLT, IG% and IG# effective | [facility] | | 01/09/2018 | LABORATORY | | | SERVICES, CORE | + + + + + + + + | Performing | Address | City/State/Zipcode | Phone Number | | Organization | | | | + + + + + | [facility] | [address] | [place] [address] | | | SERVICES, CORE | [address] | | | + + + + + VANCOMYCIN, TROUGH (03/24/2018 5:05 PM PDT) + +-------+ + + + | Component | Value | Ref Range | Performed | Pathologist | | | | | At | Signature | + +-------+ + + + | VANCOMYCIN, | 12.2 | 10.0 - 20.0 | [facility] | | | TROUGH | | ug/mL | LABORATORY | | | | | | SERVICES, | | | | | | CORE | | + +-------+ + + + + + | Specimen | + + | Blood | + + + + + | Narrative | Performed At | + + + | Please draw Vancomycin trough immediately before the next dose. | [facility] | | (~[id number]) Thank you! | LABORATORY | | | SERVICES, CORE | + + + + + + + + | Performing | Address | City/State/Zipcode | Phone Number | | Organization | | | | + + + + + | [facility] | [address] | [place] [address] | | | SERVICES, CORE | [address] | | | + + + + + DEBRIDEMENT OF BELOW KNEE AMPUTATION STUMP (03/24/2018 1:31 PM PDT) + + + | Narrative | Performed At | + + + | Macie Torre MD 03/24/2018 1:49 PM [facility] | | | [facility] | | | OPERATIVE REPORT | | | Patient | | | Name: Tati Cage Date of : 1985 Medical Record | | | Number: [id number] Contract Serial Number:: [id number] Report | | | Author: MACIE TORRE MD Procedure Date: 03/24/2018 | | | Attending Physician: 1. MACIE TORRE MD Senior Systems Software Engineer(s): | | | 1. Tsering Dumont MD Preoperative Diagnosis(es): 1. Left | | | BKA stump infection Postoperative Diagnosis(es): 1. Same | | | Procedure(s) Performed: 1. I+D L BKA Anesthesia Type: | | | General Estimated Blood Loss: 200cc IV Fluids: | | | Please see anesthesia records Tourniquet Time: * No | | | tourniquets in log * Complications: None Apparent | | | Orthopaedic Implants: 1. none Specimens: 1. 6 cukltures | | | Surgical Drains: VAC Indications for Procedure(s): Keera | | | Rhea Cage is a 32 y.o. female with history of BKA and now | | | drainage, redness, and proximal streaking. We discussed I+D with | | | her primary surgeon and her and her family. I reviewed the | | | planned procedure, alternatives the associated risks and answered | | | questions. We discussed the risks of the procedure including but | | | not limited to bleeding, infection, damage to | | | nerves/tendons/vessels, possible need for further surgery, possible | | | loss of limb and life, blood clots, and anesthesia | | | complications. She expressed understanding in the presence of her | | | family, and wishes to proceed. Surgical Findings In Brief: | | | Healthy wound bed following debridement of skin, muscle and | | | fascia. Wound size [id number] after tacking back fascia | | | Application of VAC Description of the procedure(s) in detail: | | | The patient was seen in the preoperative area where the consent form | | | was reviewed and confirmed with the patient, the correct site was | | | marked, and the patient freely assented to proceed with the | | | procedure as planned. The patient was then brought back to the | | | operating room. Anesthesia was induced without event. The | | | patient was positioned appropriately in the supine position, and | | | bony prominances were padded. A tourniquet was not placed around | | | the thigh. The thigh was occluded with a 10-15 drape. The | | | surgical site was prepped and draped in the usual sterile fashion. | | | Prior to the beginning of the procedure the team paused to verify | | | the patient's identity, as well as the procedure to be performed | | | and the correct side/site. All equipment required was ready and | | | available. Images were confirmed. The appropriate implants and | | | instruments were available. Antibiotics were administered prior | | | to incision. Sequential compression devices were placed prior to | | | incision as well. Approach for BKA: The incision was planned and | | | performed using a 10 blade was made through the skin and | | | subcutaneous tissue. Sutures were removed. The eschar was | | | debrided removing 1-1.5CM of skin. This tracked directly to | | | fascia. There did not appear to be a tracking sinus to | | | bone. The fascia was taken down to explore the deep | | | compartment. There was necrotic muscle. This was debrided along | | | with fascia. There was contractile pink muscle deep. 6 L | | | saline were used to irrigate. Then the fascia was re-approximated | | | with 0 proline X2 deep and then VAC sponge in the remaining wound | | | [id number]. Excellent seal was attained. The patient was woken | | | from anesthesia in the operating room and then transferred to the | | | post anesthesia care unit in stable condition. At the end of the | | | case the final instrument and sponge counts were correct. I, | | | Macie Torre was present/available during the critical portions of | | | the procedure. Disposition/Post operative plan: 1. Weight | | | Bearing: NWB 2. Acute pain: IV/PO 3. Diet: Advance 4. PACU | | | Disposition: Floor 5. Medications: Resume 6. VTE prophalaxis: | | | Lovenox 7. Anticipated discharge: plan for return to OR on | | | MACIE TORRE MD 03/24/2018, 1:33 PM | | + + + CAPILLARY BLOOD GLUCOSE (NO CHG), POC (03/24/2018 1:06 PM PDT) + +---------+ + + + | Component | Value | Ref Range | Performed | Pathologist | | | | | At | Signature | + +---------+ + + + | BLOOD | 125 (H) | 70 - 99 mg/dL | [facility] - | | | GLUCOSE, | | | [facility] | | | POC | | | [facility] | | | | | | [facility] | | | | | | TESTS | | + +---------+ + + + + + | Specimen | + + | | + + + + + + + | Performing | Address | City/State/Zipcode | Phone Number | | Organization | | | | + + + + + | [facility] | [id number] | [place], [place] | | | [facility] | [address] | [phone] | | | TESTS | | | | + + + + + SURGICAL PATHOLOGY (03/24/2018 11:59 AM PDT) + + + + + + | Component | Value | Ref Range | Performed | Pathologist | | | | | At | Signature | + + + + + + | Clinical | Infected BKA amp | | [facility] | | | History | | | DEPARTMENT | | | | | | OF | | | | | | PATHOLOGY | | + + + + + + | Final | A. 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 Leg, | | | | | | distal tibia, excision:- | | | | | | Viable bone with | | | | | | reactive changes- Marrow | | | | | | with mildly increased | | | | | | neutrophils, see | | | | | | noteNote (part B): The | | | | | | marrow shows patchy | | | | | | mildly increased | | | | | | neutrophils and the bone | | | | | | shows reactive changes. | | | | | | The findings may be | | | | | | suggestive of acute | | | | | | osteomyelitis. Case | | | | | | seen by:Madie | | | | | | MD Maryanne - | | | | | | Surgical Pathology | | | | | | Fellow Vilma Ramírez MD | | | | | | - PathologistMy | | | | | | electronic signature | | | | | | indicates that I have | | | | | | personally reviewed all | | | | | | diagnostic slides, the | | | | | | gross and/or microscopic | | | | | | portion of this report | | | | | | and formulated the final | | | | | | diagnosis. | | | | + + + + + + | Gross | Received are 2 specimens | | [facility] | | | Description | fresh and subsequently | | DEPARTMENT | | | | fixed in formalin | | OF | | | | labeled with the | | PATHOLOGY | | | | patient's name (initials | | | | | | KSG) and medical record | | | | | | number [id number]. Leg, | | | | | | BKA tissue: Received | | | | | | labeled "leg BKA | | | | | | tissue-1" are 2 | | | | | | irregular wang-white soft | | | | | | tissue fragments | | | | | | ranging from 1.5-2.0 cm | | | | | | in greatest dimension. | | | | | | The specimen is entirely | | | | | | submitted in cassette | | | | | | A1.B. Leg, DISTAL TIBIA: | | | | | | Received labeled "leg | | | | | | distal tibia-2" is a 1.1 | | | | | | x 0.6 x 0.4 cm | | | | | | irregular pink-wang soft | | | | | | tissue fragment admixed | | | | | | with bone. The specimen | | | | | | is bisected and entirely | | | | | | submitted in cassette | | | | | | B1 following light | | | | | | decalcification.(ATR) | | | | + + + + + + | Ancillary | Analyte specific | | [facility] | | | Information | reagents are used in | | DEPARTMENT | | | | many laboratory tests | | OF | | | | necessary for standard | | PATHOLOGY | | | | medical care. This test | | | | | | was developed and its | | | | | | performance | | | | | | characteristics | | | | | | determined by [facility] | | | | | | laboratories. It has | | | | | | not been cleared or | | | | | | approved by the US Food | | | | | | and Drug Administration | | | | | | (FDA). FDA does not | | | | | | require this test to go | | | | | | through premarket FDA | | | | | | review. This test is | | | | | | used for clinical | | | | | | purposes. It should not | | | | | | be regarded as | | | | | | investigational or for | | | | | | research. This | | | | | | laboratory is certified | | | | | | under the Clinical | | | | | | Laboratory Improvement | | | | | | Amendments (CLIA) as | | | | | | qualified to perform | | | | | | high complexity clinical | | | | | | laboratory testing. | | | | + + + + + + + + | Specimen | + + | Tissue | + + | Tissue - Lower leg | | structure (body | | structure) | + + + + + + + | Performing | Address | City/State/Zipcode | Phone Number | | Organization | | | | + + + + + | [facility] | [address] | [place] [address] | | | PATHOLOGY | [address] | | | + + + + + CULTURE, TISSUE (03/24/2018 11:58 AM PDT) + + + + + + | Component | Value | Ref Range | Performed | Pathologist | | | | | At | Signature | + + + + + + | CULTURE | Escherichia coli (A) | | [facility] | | | RESULT | | | [facility] | | | | | | [place] | | + + + + + + | CULTURE | Prevotella bivia (A) | | [facility] | | | RESULT | | | [facility] | | | | | | [place] | | + + + + + + + + | Specimen | + + | Tissue | + + + + + | Narrative | Performed At | + + + | Culture Report: 1+ Escherichia coli Refer to culture collected | [facility] - | | 03/24/18 at 11:56 AM for susceptibilities 1+ Prevotella bivia | [facility] - | | Gram Stain: No squamous epithelial cells Rare polymorphonuclear | [place] | | cells No organisms seen | | + + + + + + + + | Performing | Address | City/State/Zipcode | Phone Number | | Organization | | | | + + + + + | [facility] | [address] | [place] [address] | | | [place] | | | | + + + + + CULTURE, TISSUE (03/24/2018 11:58 AM PDT) + + + + + + | Component | Value | Ref Range | Performed | Pathologist | | | | | At | Signature | + + + + + + | CULTURE | Escherichia coli (A) | | [facility] | | | RESULT | | | [facility] | | | | | | [place] | | + + + + + + | CULTURE | Coagulase negative | | [facility] | | | RESULT | staphylococcus species | | [facility] - | | | | (A) | | [place] | | + + + + + + | CULTURE | Prevotella bivia (A) | | [facility] | | | RESULT | | | [facility] - | | | | | | [place] | | + + + + + + + + | Specimen | + + | Tissue | + + + + + | Narrative | Performed At | + + + | Culture Report: 2+ Escherichia coli Refer to culture collected | [place] - | | 03/24/18 at 11:56 AM for susceptibilities 1+ Prevotella bivia Rare | [facility] - | | Coagulase negative Staphylococcus species Please contact the | [facility] microbiology laboratory if further work up of this culture is needed. | | | Gram Stain: No squamous epithelial cells No polymorphonuclear | | | cells No organisms seen | | + + + + + + + + | Performing | Address | City/State/Zipcode | Phone Number | | Organization | | | | + + + + + | [facility] - | [address] | [place] [address] | | | [place] | | | | + + + + + CULTURE, TISSUE (03/24/2018 11:58 AM PDT) + + + + + + | Component | Value | Ref Range | Performed | Pathologist | | | | | At | Signature | + + + + + + | CULTURE | Escherichia coli (A) | | [facility] | | | RESULT | | | [facility] - | | | | | | [place] | | + + + + + + | CULTURE | Prevotella bivia (A) | | [facility] | | | RESULT | | | [facility] - | | | | | | [place] | | + + + + + + + + | Specimen | + + | Tissue | + + + + + | Narrative | Performed At | + + + | Culture Report: 1+ Escherichia coli Refer to culture collected | [facility] - | | 03/24/18 at 11:56 AM for susceptibilities 1+ Prevotella bivia | [facility] - | | Gram Stain: No squamous epithelial cells No polymorphonuclear | [facility] | | cells No organisms seen | | + + + + + + + + | Performing | Address | City/State/Zipcode | Phone Number | | Organization | | | | + + + + + | [facility] - | [address] | [place] [address] | | | [place] | | | | + + + + + CULTURE, TISSUE (03/24/2018 11:58 AM PDT) + + + + + + | Component | Value | Ref Range | Performed | Pathologist | | | | | At | Signature | + + + + + + | CULTURE | Escherichia coli (A) | | [facility] | | | RESULT | | | [facility] - | | | | | | [place] | | + + + + + + | CULTURE | Enterococcus faecalis | | [facility] | | | RESULT | (A) | | [facility] - | | | | | | [place] | | + + + + + + | CULTURE | Prevotella bivia (A) | | [facility] | | | RESULT | | | [facility] - | | | | | | [place] | | + + + + + + + + | Specimen | + + | Tissue | + + + + + | Narrative | Performed At | + + + | Culture Report: 1+ Escherichia coli Rare Enterococcus faecalis | [place] - | | Refer to culture collected 03/24/18 at 11:56 AM for susceptibilities | [facility] - | | Rare Prevotella bivia Gram Stain: No squamous epithelial cells | [place] | | Rare polymorphonuclear cells No organisms seen | | + + + + + + + + | Performing | Address | City/State/Zipcode | Phone Number | | Organization | | | | + + + + + | [facility] - | [address] | [place] [address] | | | [place] | | | | + + + + + CULTURE, TISSUE (03/24/2018 11:56 AM PDT) + + + + + + | Component | Value | Ref Range | Performed | Pathologist | | | | | At | Signature | + + + + + + | CULTURE | Escherichia coli (A) | | [facility] | | | RESULT | | | [facility] - | | | | | | [place] | | + + + + + + | CULTURE | Enterococcus faecalis | | [facility] - | | | RESULT | (A) | | [facility] - | | | | | | [place] | | + + + + + + | CULTURE | Prevotella bivia (A) | | [facility] | | | RESULT | | | [facility] - | | | | | | [place] | | + + + + + + + + | Specimen | + + | Tissue | + + + + + | Narrative | Performed At | + + + | Culture Report: 1+ Escherichia coli Rare Enterococcus faecalis | [facility] - | | 1+ Prevotella bivia Gram Stain: No squamous epithelial cells | [facility] - | | No polymorphonuclear cells No organisms seen | [place] | + + + + + + + + | Organism | Antibiotic | Method | Susceptibility | + + + + + | Escherichia coli | Amoxicillin/Clavulan | SUSCEPTIBILITY-TETE | Intermediate | | | ate | | | + + + + + | Escherichia coli | Ampicillin | SUSCEPTIBILITY-TETE | Resistant | + + + + + | Escherichia coli | Cefazolin | SUSCEPTIBILITY-TETE | Sensitive | + + + + + | Escherichia coli | Ciprofloxacin | SUSCEPTIBILITY-TETE | Sensitive | + + + + + | Escherichia coli | Gentamicin | SUSCEPTIBILITY-TETE | Sensitive | + + + + + | Escherichia coli | Piperacillin/Tazobac | SUSCEPTIBILITY-TETE | Sensitive | | | brown | | | + + + + + | Escherichia coli | Tobramycin | SUSCEPTIBILITY-TETE | Sensitive | + + + + + | Escherichia coli | Trimethoprim/Sulfa | SUSCEPTIBILITY-TETE | Resistant | + + + + + | Enterococcus | Ampicillin | SUSCEPTIBILITY-TETE | Sensitive | | faecalis | | | | + + + + + | Enterococcus | Vancomycin | SUSCEPTIBILITY-TETE | Sensitive | | faecalis | | | | + + + + + + + + + + | Performing | Address | City/State/Zipcode | Phone Number | | Organization | | | | + + + + + | [facility] - | [address] | [place] [address] | | | [place] | | | | + + + + + PRODUCT - PLATELET PHERESIS LEUKOREDUCED (03/24/2018 9:15 AM PDT) + + + + + + | Component | Value | Ref Range | Performed | Pathologist | | | | | At | Signature | + + + + + + | PRODUCT | PLATELETS PHERESIS, | | [facility] | | | DESCRIPTION | LEUKOCYTE REDUCED, | | LABORATORY | | | | IRRADIATED | | SERVICES, | | | | | | TRANSFUSION | | | | | | MEDICINE | | + + + + + + | PRODUCT | [id number] | | [facility] | | | UNIT # | | | LABORATORY | | | | | | SERVICES, | | | | | | TRANSFUSION | | | | | | MEDICINE | | + + + + + + | UNIT ABO | A | | [facility] | | | | | | LABORATORY | | | | | | SERVICES, | | | | | | TRANSFUSION | | | | | | MEDICINE | | + + + + + + | UNIT RH | NEG | | [facility] | | | | | | LABORATORY | | | | | | SERVICES, | | | | | | TRANSFUSION | | | | | | MEDICINE | | + + + + + + | STATUS OF | Presumed Transfused | | [facility] | | | UNIT | | | LABORATORY | | | | | | SERVICES, | | | | | | TRANSFUSION | | | | | | MEDICINE | | + + + + + + | EXPIRATION | [id number] | | [facility] | | | DATE | | | LABORATORY | | | | | | SERVICES, | | | | | | TRANSFUSION | | | | | | MEDICINE | | + + + + + + | BLOOD TYPE | 0600 | | [facility] | | | BARCODE | | | LABORATORY | | | | | | SERVICES, | | | | | | TRANSFUSION | | | | | | MEDICINE | | + + + + + + | BLOOD | [id number] | | [facility] | | | PRODUCT | | | LABORATORY | | | CODE | | | SERVICES, | | | | | | TRANSFUSION | | | | | | MEDICINE | | + + + + + + + + | Specimen | + + | | + + + + + + + | Performing | Address | City/State/Zipcode | Phone Number | | Organization | | | | + + + + + | [facility] | [address] | [place] [address] | | | SERVICES, | [address] | | | | TRANSFUSION MEDICINE | | | | + + + + + PRODUCT - RED CELLS LEUKOREDUCED (03/24/2018 9:15 AM PDT) + + + + + + | Component | Value | Ref Range | Performed | Pathologist | | | | | At | Signature | + + + + + + | PRODUCT | -1 RED BLOOD CELL | | [facility] | | | DESCRIPTION | ADENINE-SALINE ADDED | | LABORATORY | | | | LEUKOCYTE | | SERVICES, | | | | | | TRANSFUSION | | | | | | MEDICINE | | + + + + + + | PRODUCT | [id number] | | [facility] | | | UNIT # | | | LABORATORY | | | | | | SERVICES, | | | | | | TRANSFUSION | | | | | | MEDICINE | | + + + + + + | UNIT ABO | A | | [facility] | | | | | | LABORATORY | | | | | | SERVICES, | | | | | | TRANSFUSION | | | | | | MEDICINE | | + + + + + + | UNIT RH | POS | | [facility] | | | | | | LABORATORY | | | | | | SERVICES, | | | | | | TRANSFUSION | | | | | | MEDICINE | | + + + + + + | STATUS OF | Presumed Transfused | | [facility] | | | UNIT | | | LABORATORY | | | | | | SERVICES, | | | | | | TRANSFUSION | | | | | | MEDICINE | | + + + + + + | EXPIRATION | [phone] | | [facility] | | | DATE | | | LABORATORY | | | | | | SERVICES, | | | | | | TRANSFUSION | | | | | | MEDICINE | | + + + + + + | BLOOD TYPE | 6200 | | [facility] | | | BARCODE | | | LABORATORY | | | | | | SERVICES, | | | | | | TRANSFUSION | | | | | | MEDICINE | | + + + + + + | BLOOD | [id number] | | [facility] | | | PRODUCT | | | LABORATORY | | | CODE | | | SERVICES, | | | | | | TRANSFUSION | | | | | | MEDICINE | | + + + + + + + + | Specimen | + + | | + + + + + + + | Performing | Address | City/State/Zipcode | Phone Number | | Organization | | | | + + + + + | [facility] | [address] | [place] [address] | | | SERVICES, | [address] | | | | TRANSFUSION MEDICINE | | | | + + + + + PRODUCT - RED CELLS LEUKOREDUCED (03/24/2018 9:15 AM PDT) + + + + + + | Component | Value | Ref Range | Performed | Pathologist | | | | | At | Signature | + + + + + + | PRODUCT | -1 RED BLOOD CELL | | [facility] | | | DESCRIPTION | ADENINE-SALINE ADDED | | LABORATORY | | | | LEUKOCYTE | | SERVICES, | | | | | | TRANSFUSION | | | | | | MEDICINE | | + + + + + + | PRODUCT | [id number] | | [facility] | | | UNIT # | | | LABORATORY | | | | | | SERVICES, | | | | | | TRANSFUSION | | | | | | MEDICINE | | + + + + + + | UNIT ABO | A | | [facility] | | | | | | LABORATORY | | | | | | SERVICES, | | | | | | TRANSFUSION | | | | | | MEDICINE | | + + + + + + | UNIT RH | POS | | [facility] | | | | | | LABORATORY | | | | | | SERVICES, | | | | | | TRANSFUSION | | | | | | MEDICINE | | + + + + + + | STATUS OF | Presumed Transfused | | [facility] | | | UNIT | | | LABORATORY | | | | | | SERVICES, | | | | | | TRANSFUSION | | | | | | MEDICINE | | + + + + + + | EXPIRATION | [phone] | | [facility] | | | DATE | | | LABORATORY | | | | | | SERVICES, | | | | | | TRANSFUSION | | | | | | MEDICINE | | + + + + + + | BLOOD TYPE | 6200 | | [facility] | | | BARCODE | | | LABORATORY | | | | | | SERVICES, | | | | | | TRANSFUSION | | | | | | MEDICINE | | + + + + + + | BLOOD | [id number] | | [facility] | | | PRODUCT | | | LABORATORY | | | CODE | | | SERVICES, | | | | | | TRANSFUSION | | | | | | MEDICINE | | + + + + + + + + | Specimen | + + | | + + + + + + + | Performing | Address | City/State/Zipcode | Phone Number | | Organization | | | | + + + + + | [facility] | [address] | [place] [address] | | | SERVICES, | [address] | | | | TRANSFUSION MEDICINE | | | | + + + + + RBC MORPHOLOGY (03/24/2018 9:02 AM PDT) + + + + + + | Component | Value | Ref Range | Performed | Pathologist | | | | | At | Signature | + + + + + + | KATHLEENE | Present | | [facility] | | | BODIES | | | LABORATORY | | | | | | SERVICES, | | | | | | CORE | | + + + + + + | TOXIC | Present | | [facility] | | | GRANULATION | | | LABORATORY | | | | | | SERVICES, | | | | | | CORE | | + + + + + + | ANISOCYTOSI | 3+(>100cells/HPF) | | [facility] | | | S | | | LABORATORY | | | | | | SERVICES, | | | | | | CORE | | + + + + + + | MICROCYTOSI | 3+(>100cells/HPF) | | [facility] | | | S | | | LABORATORY | | | | | | SERVICES, | | | | | | CORE | | + + + + + + + + | Specimen | + + | Blood | + + + + + + + | Performing | Address | City/State/Zipcode | Phone Number | | Organization | | | | + + + + + | [facility] | [address] | [place] [address] | | | SERVICES, CORE | [address] | | | + + + + + MANUAL DIFFERENTIAL (03/24/2018 9:02 AM PDT) + + + + + + | Component | Value | Ref Range | Performed | Pathologist | | | | | At | Signature | + + + + + + | NEUTROPHIL | 51.4 | 50.0 - 70.0 % | [facility] | | | % | | | LABORATORY | | | | | | SERVICES, | | | | | | CORE | | + + + + + + | LYMPHOCYTE | 23.9 | 18.0 - 42.0 % | [facility] | | | % | | | LABORATORY | | | | | | SERVICES, | | | | | | CORE | | + + + + + + | MONOCYTE % | 18.3 (H) | 3.5 - 9.0 % | [facility] | | | | | | LABORATORY | | | | | | SERVICES, | | | | | | CORE | | + + + + + + | EOSINOPHIL | 0.0 (L) | 1.0 - 3.0 % | [facility] | | | % | | | LABORATORY | | | | | | SERVICES, | | | | | | CORE | | + + + + + + | BASOPHIL % | 0.0 | 0.0 - 2.0 % | [facility] | | | | | | LABORATORY | | | | | | SERVICES, | | | | | | CORE | | + + + + + + | IG% | 5.5 (H)Comment: | 0.0 - 1.0 % | [facility] | | | | Increased immature | | LABORATORY | | | | granulocytes(IG)define a | | SERVICES, | | | | left shift.IGs include | | CORE | | | | metamyelocytes, | | | | | | myelocytes and | | | | | | promyelocytes. Bands are | | | | | | included in the | | | | | | neutrophil count, not | | | | | | the IG count, except in | | | | | | neonates <=60 days old | | | | | | where bands are reported | | | | | | in a manual diff. | | | | + + + + + + | ATYPICAL | 0.9 (H)Comment: Atypical | 0.0 % | [facility] | | | CELL % | Cells with fine | | LABORATORY | | | | chromatin, high N-C | | SERVICES, | | | | ratio, prominent | | CORE | | | | nucleoli and dark blue | | | | | | cytoplasm. | | | | + + + + + + | NEUTROPHIL | 2.34 | 1.80 - 7.70 | [facility] | | | # | | K/cu mm | LABORATORY | | | | | | SERVICES, | | | | | | CORE | | + + + + + + | LYMPHOCYTE | 1.09 | 1.00 - 4.80 | [facility] | | | # | | K/cu mm | LABORATORY | | | | | | SERVICES, | | | | | | CORE | | + + + + + + | MONOCYTE # | 0.83 | 0.10 - 0.90 | [facility] | | | | | K/cu mm | LABORATORY | | | | | | SERVICES, | | | | | | CORE | | + + + + + + | EOSINOPHIL | 0.00 | 0.00 - 0.50 | [facility] | | | # | | K/cu mm | LABORATORY | | | | | | SERVICES, | | | | | | CORE | | + + + + + + | BASOPHIL # | 0.00 | 0.00 - 0.10 | [facility] | | | | | K/cu mm | LABORATORY | | | | | | SERVICES, | | | | | | CORE | | + + + + + + | IG# | 0.25 (H) | 0.00 - 0.10 | [facility] | | | | | K/cu mm | LABORATORY | | | | | | SERVICES, | | | | | | CORE | | + + + + + + | ATYPICAL | 0.04 | K/cu mm | [facility] | | | CELLS # | | | LABORATORY | | | | | | SERVICES, | | | | | | CORE | | + + + + + + + + | Specimen | + + | Blood | + + + + + | Narrative | Performed At | + + + | New pediatric reference ranges for Lymphocyte % in effect February 13, | [facility] | | 2018. Increased immature granulocytes(IG)define a left shift.IGs | LABORATORY | | include metamyelocytes, myelocytes and promyelocytes. Bands are | SERVICES, CORE | | included in the neutrophil count, not the IG count, except in neonates | | | <=60 days old where bands are reported in a manual diff. | | + + + + + + + + | Performing | Address | City/State/Zipcode | Phone Number | | Organization | | | | + + + + + | [facility] | [address] | [place] [address] | | | SERVICES, CORE | [address] | | | + + + + + CBC AND AUTO DIFF (03/24/2018 9:02 AM PDT) + + + + + + | Component | Value | Ref Range | Performed | Pathologist | | | | | At | Signature | + + + + + + | WHITE CELL | 4.56 | 3.50 - 10.80 | [facility] | | | COUNT | | K/cu mm | LABORATORY | | | | | | SERVICES, | | | | | | CORE | | + + + + + + | RED CELL | 2.49 (L) | 4.00 - 5.20 | [facility] | | | COUNT | | M/cu mm | LABORATORY | | | | | | SERVICES, | | | | | | CORE | | + + + + + + | HEMOGLOBIN | 7.4 (L) | 12.0 - 16.0 | [facility] | | | | | g/dL | LABORATORY | | | | | | SERVICES, | | | | | | CORE | | + + + + + + | HEMATOCRIT | 21.5 (L) | 36.0 - 46.0 % | [facility] | | | | | | LABORATORY | | | | | | SERVICES, | | | | | | CORE | | + + + + + + | MCV | 86.3 | 80.0 - 100.0 fL | [facility] | | | | | | LABORATORY | | | | | | SERVICES, | | | | | | CORE | | + + + + + + | MCHC | 34.4 | 32.0 - 36.0 | [facility] | | | | | g/dL | LABORATORY | | | | | | SERVICES, | | | | | | CORE | | + + + + + + | RDW SD | 44.0 | 35.1 - 46.3 fL | [facility] | | | | | | LABORATORY | | | | | | SERVICES, | | | | | | CORE | | + + + + + + | PLATELET | 32 (L)Comment: | 150 - 400 K/cu | [facility] | | | COUNT | Macroplatelets present. | mm | LABORATORY | | | | | | SERVICES, | | | | | | CORE | | + + + + + + | MPV | 11.1 | 9.7 - 12.3 fL | [facility] | | | | | | LABORATORY | | | | | | SERVICES, | | | | | | CORE | | + + + + + + | NRBC% | 0.7 (H) | 0.0 - 0.3 % | [facility] | | | | | | LABORATORY | | | | | | SERVICES, | | | | | | CORE | | + + + + + + | NRBC# | 0.03 (H) | 0.00 - 0.02 | [facility] | | | | | K/cu mm | LABORATORY | | | | | | SERVICES, | | | | | | CORE | | + + + + + + + + | Specimen | + + | Blood | + + + + + | Narrative | Performed At | + + + | New reference ranges for MCV, MCHC, PLT, IG% and IG# effective | [facility] | | 01/09/2018 | LABORATORY | | | [facility]TONI [facility]GUI[facility]O | + + + + + + + + | Performing | Address | City/State/Zipcode | Phone Number | | Organization | | | | + + + + + | [facility] | [address] | [place] [address] | | | ANTONI ANGUIANO | [address] | | | + + + + + COMPLETE METABOLIC SET (NA,K,CL,CO2,BUN,CREAT,GLUC,CA,AST,ALT,BILI TOTAL,ALK PHOS,ALB,PROT TOTAL) (03/24/2018 9:02 AM PDT) + +---------+ + + + | Component | Value | Ref Range | Performed | Pathologist | | | | | At | Signature | + +---------+ + + + | GLUCOSE, | 99 | 70 - 99 mg/dL | [facility] | | | PLASMA | | | LABORATORY | | | (LAB) | | | SERVICES, | | | | | | CORE | | + +---------+ + + + | BUN, PLASMA | 9 | 6 - 20 mg/dL | [facility] | | | (LAB) | | | LABORATORY | | | | | | SERVICES, | | | | | | CORE | | + +---------+ + + + | CREATININE | 0.62 | 0.60 - 1.10 | [facility] | | | PLASMA | | mg/dL | LABORATORY | | | (LAB) | | | SERVICES, | | | | | | CORE | | + +---------+ + + + | EGFR | >60 | >60 mL/min | [facility] | | | - | | | LABORATORY | | | MAURITIAN | | | SERVICES, | | | | | | CORE | | + +---------+ + + + | EGFR NON | >60 | >60 mL/min | [facility] | | | -[place] | | | LABORATORY | | | RICAN | | | SERVICES, | | | | | | CORE | | + +---------+ + + + | SODIUM, | 139 | 136 - 145 | [facility] | | | PLASMA | | mmol/L | LABORATORY | | | (LAB) | | | SERVICES, | | | | | | CORE | | + +---------+ + + + | POTASSIUM, | 2.7 (L) | 3.4 - 5.0 | [facility] | | | PLASMA | | mmol/L | LABORATORY | | | (LAB) | | | SERVICES, | | | | | | CORE | | + +---------+ + + + | CHLORIDE, | 110 (H) | 97 - 108 mmol/L | [facility] | | | PLASMA | | | LABORATORY | | | (LAB) | | | SERVICES, | | | | | | CORE | | + +---------+ + + + | TOTAL CO2, | 25 | 21 - 32 mmol/L | [facility] | | | PLASMA | | | LABORATORY | | | (LAB) | | | SERVICES, | | | | | | CORE | | + +---------+ + + + | CALCIUM, | 7.3 (L) | 8.6 - 10.2 | [facility] | | | PLASMA | | mg/dL | LABORATORY | | | (LAB) | | | SERVICES, | | | | | | CORE | | + +---------+ + + + | CALCIUM(ALB | 8.6 | 8.6 - 10.2 | [facility] | | | CORRECTED) | | mg/dL | LABORATORY | | | | | | SERVICES, | | | | | | CORE | | + +---------+ + + + | BILIRUBIN | 0.4 | 0.3 - 1.2 mg/dL | [facility] | | | TOTAL | | | LABORATORY | | | | | | SERVICES, | | | | | | CORE | | + +---------+ + + + | TOTAL | 5.5 (L) | 6.4 - 8.2 g/dL | [facility] | | | PROTEIN, | | | LABORATORY | | | PLASMA | | | SERVICES, | | | (LAB) | | | CORE | | + +---------+ + + + | ALBUMIN, | 2.4 (L) | 3.5 - 4.7 g/dL | [facility] | | | PLASMA | | | LABORATORY | | | (LAB) | | | SERVICES, | | | | | | CORE | | + +---------+ + + + | ALK PHOS | 39 (L) | 42 - 98 U/L | [facility] | | | | | | LABORATORY | | | | | | SERVICES, | | | | | | CORE | | + +---------+ + + + | AST(SGOT) | 10 | <=41 U/L | [facility] | | | | | | LABORATORY | | | | | | SERVICES, | | | | | | CORE | | + +---------+ + + + | ALT (SGPT) | 16 | <=60 U/L | [facility] | | | | | | LABORATORY | | | | | | SERVICES, | | | | | | CORE | | + +---------+ + + + | ANION GAP | 4 | 4 - 11 mmol/L | [facility] | | | | | | LABORATORY | | | | | | SERVICES, | | | | | | CORE | | + +---------+ + + + | ANION | 8 | 4 - 11 mmol/L | [facility] | | | GAP(ALB | | | LABORATORY | | | CORRECTED) | | | SERVICES, | | | | | | CORE | | + +---------+ + + + | POTASSIUM | No Hemo | | [facility] | | | CMNT | | | LABORATORY | | | | | | SERVICES, | | | | | | CORE | | + +---------+ + + + | BILI T CMNT | No Hemo | | [facility] | | | | | | LABORATORY | | | | | | SERVICES, | | | | | | CORE | | + +---------+ + + + | AST CMNT | No Hemo | | [facility] | | | | | | LABORATORY | | | | | | SERVICES, | | | | | | CORE | | + +---------+ + + + + + | Specimen | + + | Blood | + + + + + | Narrative | Performed At | + + + | GFR is estimated using the MDRD equation recommended by the | [facility] | | National Kidney Disease Education Program. Estimated GFR | LABORATORY | | Interpretive Information: <60 mL/min/1.73 sq | SERVICES, CORE | | m Chronic Kidney Disease <15 mL/min/1.73 | | | sq m Kidney Failure Estimated GFR greater | | | that 60 mL/min/1.73 sq m is of limited clinical value. The MDRD | | | equation is not valid in the following situations: - Patients under | | | 18 years of age - Severe malnutrition or obesity - Vegetarian diet | | | - Rapidly changing kidney function - Amputees, paraplegics, or other | | | muscle-wasting diseses | | + + + + + + + + | Performing | Address | City/State/Zipcode | Phone Number | | Organization | | | | + + + + + | [facility] | [address] | [place] [address] | | | ANTONI ANGUIANO | [address] | | | + + + + + CBC (HEMOGRAM) ONLY (03/24/2018 12:59 AM PDT) + + + + + + | Component | Value | Ref Range | Performed | Pathologist | | | | | At | Signature | + + + + + + | WHITE CELL | 2.95 (L) | 3.50 - 10.80 | [facility] | | | COUNT | | K/cu mm | LABORATORY | | | | | | SERVICES, | | | | | | CORE | | + + + + + + | RED CELL | 2.40 (L) | 4.00 - 5.20 | [facility] | | | COUNT | | M/cu mm | LABORATORY | | | | | | SERVICES, | | | | | | CORE | | + + + + + + | HEMOGLOBIN | 7.3 (L) | 12.0 - 16.0 | [facility] | | | | | g/dL | LABORATORY | | | | | | SERVICES, | | | | | | CORE | | + + + + + + | HEMATOCRIT | 20.9 (L) | 36.0 - 46.0 % | [facility] | | | | | | LABORATORY | | | | | | SERVICES, | | | | | | CORE | | + + + + + + | MCV | 87.1 | 80.0 - 100.0 fL | [facility] | | | | | | LABORATORY | | | | | | SERVICES, | | | | | | CORE | | + + + + + + | MCHC | 34.9 | 32.0 - 36.0 | [facility] | | | | | g/dL | LABORATORY | | | | | | SERVICES, | | | | | | CORE | | + + + + + + | RDW SD | 44.6 | 35.1 - 46.3 fL | [facility] | | | | | | LABORATORY | | | | | | SERVICES, | | | | | | CORE | | + + + + + + | PLATELET | 36 (L) | 150 - 400 K/cu | [facility] | | | COUNT | | mm | LABORATORY | | | | | | SERVICES, | | | | | | CORE | | + + + + + + | MPV | 10.6 | 9.7 - 12.3 fL | [facility] | | | | | | LABORATORY | | | | | | SERVICES, | | | | | | CORE | | + + + + + + | NRBC% | 0.0 | 0.0 - 0.3 % | [facility] | | | | | | LABORATORY | | | | | | SERVICES, | | | | | | CORE | | + + + + + + | NRBC# | 0.00 | 0.00 - 0.02 | [facility] | | | | | K/cu mm | LABORATORY | | | | | | SERVICES, | | | | | | CORE | | + + + + + + + + | Specimen | + + | Blood | + + + + + | Narrative | Performed At | + + + | New reference ranges for MCV, MCHC, PLT, IG% and IG# effective | [facility] | | 01/09/2018 | LABORATORY | | | SERVICES, CORE | + + + + + + + + | Performing | Address | City/State/Zipcode | Phone Number | | Organization | | | | + + + + + | [facility] | [address] | [place] [address] | | | SILVIO, ANTONI | [address] | | | + + + + + CARDIOLOGY (03/24/2018 12:00 AM PDT) + + + | Narrative | Performed At | + + + | | | + + + PRODUCT - PLATELET PHERESIS LEUKOREDUCED (03/23/2018 4:53 PM PDT) + + + + + + | Component | Value | Ref Range | Performed | Pathologist | | | | | At | Signature | + + + + + + | PRODUCT | APHERESIS | | [facility] | | | DESCRIPTION | PLATELETS,PAS,LEUKOREDUC | | LABORATORY | | | | ED,IRRADIATED | | SERVICES, | | | | | | TRANSFUSION | | | | | | MEDICINE | | + + + + + + | PRODUCT | [id number] | | [facility] | | | UNIT # | | | LABORATORY | | | | | | SERVICES, | | | | | | TRANSFUSION | | | | | | MEDICINE | | + + + + + + | UNIT ABO | A | | [facility] | | | | | | LABORATORY | | | | | | SERVICES, | | | | | | TRANSFUSION | | | | | | MEDICINE | | + + + + + + | UNIT RH | POS | | [facility] | | | | | | LABORATORY | | | | | | SERVICES, | | | | | | TRANSFUSION | | | | | | MEDICINE | | + + + + + + | STATUS OF | Presumed Transfused | | [facility] | | | UNIT | | | LABORATORY | | | | | | SERVICES, | | | | | | TRANSFUSION | | | | | | MEDICINE | | + + + + + + | EXPIRATION | [id number] | | [facility] | | | DATE | | | LABORATORY | | | | | | SERVICES, | | | | | | TRANSFUSION | | | | | | MEDICINE | | + + + + + + | BLOOD TYPE | [id number] | | [facility] | | | BARCODE | | | LABORATORY | | | | | | SERVICES, | | | | | | TRANSFUSION | | | | | | MEDICINE | | + + + + + + | BLOOD | [id number] | | [facility] | | | PRODUCT | | | LABORATORY | | | CODE | | | SERVICES, | | | | | | TRANSFUSION | | | | | | MEDICINE | | + + + + + + + + | Specimen | + + | | + + + + + + + | Performing | Address | City/State/Zipcode | Phone Number | | Organization | | | | + + + + + | [facility] | [address] | [place] [address] | | | SERVICES, | [address] | | | | TRANSFUSION MEDICINE | | | | + + + + + C-REACTIVE PROTEIN (03/23/2018 4:44 PM PDT) + + + + + + | Component | Value | Ref Range | Performed | Pathologist | | | | | At | Signature | + + + + + + | C-REACTIVE | 166.0 (H) | <10.0 mg/L | [facility] | | | PROTEIN | | | LABORATORY | | | | | | SERVICES, | | | | | | CORE | | + + + + + + + + | Specimen | + + | Blood | + + + + + | Narrative | Performed At | + + + | New method, new reference range and new reporting units as of | [facility] | | 02/03/2014. | LABORATORY | | | ANTONI ANGUIANO | + + + + + + + + | Performing | Address | City/State/Zipcode | Phone Number | | Organization | | | | + + + + + | [facility] | [address] | [place] [address] | | | ANTONI ANGUIANO | [address] | | | + + + + + HAPTOGLOBIN (03/23/2018 4:44 PM PDT) + +---------+ + + + | Component | Value | Ref Range | Performed | Pathologist | | | | | At | Signature | + +---------+ + + + | HAPTOGLOBIN | 329 (H) | 30 - 200 mg/dL | [facility] | | | | | | LABORATORY | | | | | | SERVICES, | | | | | | CORE | | + +---------+ + + + + + | Specimen | + + | Blood | + + + + + + + | Performing | Address | City/State/Zipcode | Phone Number | | Organization | | | | + + + + + | [facility] | [address] | [place] [address] | | | SERVICES, CORE | [address] | | | + + + + + D-DIMER, (PE OR DIC) (03/23/2018 4:44 PM PDT) + + + + + + | Component | Value | Ref Range | Performed | Pathologist | | | | | At | Signature | + + + + + + | D-DIMER (PE | 0.62 (H) | <0.50 ug/mLFEU | [facility] | | | OR DIC) | | | LABORATORY | | | | | | SERVICES, | | | | | | CORE | | + + + + + + + + | Specimen | + + | Blood | + + + + + | Narrative | Performed At | + + + | D-Dimer Interpretation: <0.5 PE very unlikely | [facility] | | 0.50-4.0 Seen in ill patients but not diagnostic of thrombosis. | LABORATORY | | >4.0 Compatible with DIC but not diagnostic. If clinically | SERVICES, CORE | | indicated request titration of d-dimer. Values | | | >8.0 are strongly suggestive of DIC. | | + + + + + + + + | Performing | Address | City/State/Zipcode | Phone Number | | Organization | | | | + + + + + | [facility] | [address] | [place] [address] | | | SERVICES, CORE | [address] | | | + + + + + COAGULOPATHY PANEL (INR,APTT,FIBRINOGEN) (03/23/2018 4:44 PM PDT) + + + + + + | Component | Value | Ref Range | Performed | Pathologist | | | | | At | Signature | + + + + + + | INR | 1.12 | 0.90 - 1.20 INR | [facility] | | | | | | LABORATORY | | | | | | SERVICES, | | | | | | CORE | | + + + + + + | APTT | 33.1 | 26.0 - 36.0 | [facility] | | | | | seconds | LABORATORY | | | | | | SERVICES, | | | | | | CORE | | + + + + + + | FIBRINOGEN | 674 (H)Comment: New | 150 - 450 mg/dL | [facility] | | | LEVEL | Reference Ranges as of | | LABORATORY | | | | 01/06/2018. | | SERVICES, | | | | | | CORE | | + + + + + + + + | Specimen | + + | Blood | + + + + + | Narrative | Performed At | + + + | INR Therapeutic ranges for full anticoagulation: INR for | [facility] | | Venous Thromboembolism (2.0 - 3.0) INR | LABORATORY | | INR for most patients with mech. valves (2.5 - 3.5) INR | SERVICES, CORE | | APTT values for monitoring heparin therapy may be affected by | | | specimens processed >1 hour after collection. APTT Therapeutic | | | Range: (75 - 120) sec | | | Heparin levels of 0.35 - 0.7 U/mL | | + + + + + + + + | Performing | Address | City/State/Zipcode | Phone Number | | Organization | | | | + + + + + | [facility] | [address] | [place] [address] | | | SERVICES, CORE | [address] | | | + + + + + LDH TOTAL, PLASMA (03/23/2018 4:44 PM PDT) + +---------+ + + + | Component | Value | Ref Range | Performed | Pathologist | | | | | At | Signature | + +---------+ + + + | LD TOTAL, | 135 | <=250 U/L | [facility] | | | PLASMA | | | LABORATORY | | | | | | SERVICES, | | | | | | CORE | | + +---------+ + + + | LD CMNT | No Hemo | | [facility] | | | | | | LABORATORY | | | | | | SERVICES, | | | | | | CORE | | + +---------+ + + + + + | Specimen | + + | Blood | + + + + + + + | Performing | Address | City/State/Zipcode | Phone Number | | Organization | | | | + + + + + | [facility] | [address] | [place] [address] | | | SERVICES, CORE | [address] | | | + + + + + COMPLETE METABOLIC SET (NA,K,CL,CO2,BUN,CREAT,GLUC,CA,AST,ALT,BILI TOTAL,ALK PHOS,ALB,PROT TOTAL) (03/23/2018 4:44 PM PDT) + +---------+ + + + | Component | Value | Ref Range | Performed | Pathologist | | | | | At | Signature | + +---------+ + + + | GLUCOSE, | 115 (H) | 70 - 99 mg/dL | [facility] | | | PLASMA | | | LABORATORY | | | (LAB) | | | SERVICES, | | | | | | CORE | | + +---------+ + + + | BUN, PLASMA | 12 | 6 - 20 mg/dL | [facility] | | | (LAB) | | | LABORATORY | | | | | | SERVICES, | | | | | | CORE | | + +---------+ + + + | CREATININE | 0.74 | 0.60 - 1.10 | [facility] | | | PLASMA | | mg/dL | LABORATORY | | | (LAB) | | | SERVICES, | | | | | | CORE | | + +---------+ + + + | EGFR | >60 | >60 mL/min | [facility] | | | - | | | LABORATORY | | | MAURITIAN | | | SERVICES, | | | | | | CORE | | + +---------+ + + + | EGFR NON | >60 | >60 mL/min | [facility] | | | -[place] | | | LABORATORY | | | RICAN | | | SERVICES, | | | | | | CORE | | + +---------+ + + + | SODIUM, | 141 | 136 - 145 | [facility] | | | PLASMA | | mmol/L | LABORATORY | | | (LAB) | | | SERVICES, | | | | | | CORE | | + +---------+ + + + | POTASSIUM, | 3.4 | 3.4 - 5.0 | [facility] | | | PLASMA | | mmol/L | LABORATORY | | | (LAB) | | | SERVICES, | | | | | | CORE | | + +---------+ + + + | CHLORIDE, | 105 | 97 - 108 mmol/L | [facility] | | | PLASMA | | | LABORATORY | | | (LAB) | | | SERVICES, | | | | | | CORE | | + +---------+ + + + | TOTAL CO2, | 31 | 21 - 32 mmol/L | [facility] | | | PLASMA | | | LABORATORY | | | (LAB) | | | SERVICES, | | | | | | CORE | | + +---------+ + + + | CALCIUM, | 8.3 (L) | 8.6 - 10.2 | [facility] | | | PLASMA | | mg/dL | LABORATORY | | | (LAB) | | | SERVICES, | | | | | | CORE | | + +---------+ + + + | CALCIUM(ALB | 9.0 | 8.6 - 10.2 | [facility] | | | CORRECTED) | | mg/dL | LABORATORY | | | | | | SERVICES, | | | | | | CORE | | + +---------+ + + + | BILIRUBIN | 0.6 | 0.3 - 1.2 mg/dL | [facility] | | | TOTAL | | | LABORATORY | | | | | | SERVICES, | | | | | | CORE | | + +---------+ + + + | TOTAL | 6.8 | 6.4 - 8.2 g/dL | [facility] | | | PROTEIN, | | | LABORATORY | | | PLASMA | | | SERVICES, | | | (LAB) | | | CORE | | + +---------+ + + + | ALBUMIN, | 3.1 (L) | 3.5 - 4.7 g/dL | [facility] | | | PLASMA | | | LABORATORY | | | (LAB) | | | SERVICES, | | | | | | CORE | | + +---------+ + + + | ALK PHOS | 45 | 42 - 98 U/L | [facility] | | | | | | LABORATORY | | | | | | SERVICES, | | | | | | CORE | | + +---------+ + + + | AST(SGOT) | 10 | <=41 U/L | [facility] | | | | | | LABORATORY | | | | | | SERVICES, | | | | | | CORE | | + +---------+ + + + | ALT (SGPT) | 22 | <=60 U/L | [facility] | | | | | | LABORATORY | | | | | | SERVICES, | | | | | | CORE | | + +---------+ + + + | ANION GAP | 5 | 4 - 11 mmol/L | [facility] | | | | | | LABORATORY | | | | | | SERVICES, | | | | | | CORE | | + +---------+ + + + | ANION | 7 | 4 - 11 mmol/L | [facility] | | | GAP(ALB | | | LABORATORY | | | CORRECTED) | | | SERVICES, | | | | | | CORE | | + +---------+ + + + | POTASSIUM | No Hemo | | [facility] | | | CMNT | | | LABORATORY | | | | | | SERVICES, | | | | | | CORE | | + +---------+ + + + | BILI T CMNT | No Hemo | | [facility] | | | | | | LABORATORY | | | | | | SERVICES, | | | | | | CORE | | + +---------+ + + + | AST CMNT | No Hemo | | [facility] | | | | | | LABORATORY | | | | | | SERVICES, | | | | | | CORE | | + +---------+ + + + + + | Specimen | + + | Blood | + + + + + | Narrative | Performed At | + + + | GFR is estimated using the MDRD equation recommended by the | [facility] | | National Kidney Disease Education Program. Estimated GFR | LABORATORY | | Interpretive Information: <60 mL/min/1.73 sq | SERVICES, CORE | | m Chronic Kidney Disease <15 mL/min/1.73 | | | sq m Kidney Failure Estimated GFR greater | | | that 60 mL/min/1.73 sq m is of limited clinical value. The MDRD | | | equation is not valid in the following situations: - Patients under | | | 18 years of age - Severe malnutrition or obesity - Vegetarian diet | | | - Rapidly changing kidney function - Amputees, paraplegics, or other | | | muscle-wasting diseses | | + + + + + + + + | Performing | Address | City/State/Zipcode | Phone Number | | Organization | | | | + + + + + | [facility] | [address] | [place] [address] | | | SERVICES, CORE | [address] | | | + + + + + RBC MORPHOLOGY (03/23/2018 4:41 PM PDT) + + + + + + | Component | Value | Ref Range | Performed | Pathologist | | | | | At | Signature | + + + + + + | KATHLEENE | Present | | [facility] | | | BODIES | | | LABORATORY | | | | | | SILVIO, | | | | | | CORE | | + + + + + + | ANISOCYTOSI | 1+(10-25cells/HPF) | | [facility] | | | S | | | LABORATORY | | | | | | SERVICES, | | | | | | CORE | | + + + + + + | MICROCYTOSI | 1+(10-25cells/HPF) | | [facility] | | | S | | | LABORATORY | | | | | | SERVICES, | | | | | | CORE | | + + + + + + | TEAR DROP | 1+ (<1-2cells/HPF) | | [facility] | | | CELLS | | | LABORATORY | | | | | | SERVICES, | | | | | | CORE | | + + + + + + + + | Specimen | + + | Blood | + + + + + + + | Performing | Address | City/State/Zipcode | Phone Number | | Organization | | | | + + + + + | [facility] | [address] | [place] [address] | | | SERVICES, CORE | [address] | | | + + + + + RETICULOCYTE COUNT (03/23/2018 4:41 PM PDT) + +---------+ + + + | Component | Value | Ref Range | Performed | Pathologist | | | | | At | Signature | + +---------+ + + + | RETICULOCYT | 0.3 (L) | 0.5 - 1.5 % | [facility] | | | E COUNT | | | LABORATORY | | | | | | SERVICES, | | | | | | CORE | | + +---------+ + + + | RETIC | 9.3 (L) | 10.0 - 90.0 | [facility] | | | ABSOLUTE # | | K/cu mm | LABORATORY | | | | | | SERVICES, | | | | | | CORE | | + +---------+ + + + + + | Specimen | + + | Blood | + + + + + + + | Performing | Address | City/State/Zipcode | Phone Number | | Organization | | | | + + + + + | [facility] | [address] | [place] [address] | | | SERVICES, CORE | [address] | | | + + + + + ABO & RH TYPE (03/23/2018 4:41 PM PDT) + + + + + + | Component | Value | Ref Range | Performed | Pathologist | | | | | At | Signature | + + + + + + | ABO Group | A | | [facility] | | | | | | LABORATORY | | | | | | SERVICES, | | | | | | TRANSFUSION | | | | | | MEDICINE | | + + + + + + | Rh Type | Positive | | [facility] | | | | | | LABORATORY | | | | | | SERVICES, | | | | | | TRANSFUSION | | | | | | MEDICINE | | + + + + + + + + | Specimen | + + | Blood | + + + + + + + | Performing | Address | City/State/Zipcode | Phone Number | | Organization | | | | + + + + + | [facility] | [address] | [place] [address] | | | SERVICES, | [address] | | | | TRANSFUSION MEDICINE | | | | + + + + + CBC AND AUTO DIFF (03/23/2018 4:41 PM PDT) + + + + + + | Component | Value | Ref Range | Performed | Pathologist | | | | | At | Signature | + + + + + + | WHITE CELL | 2.12 (L) | 3.50 - 10.80 | [facility] | | | COUNT | | K/cu mm | LABORATORY | | | | | | SERVICES, | | | | | | CORE | | + + + + + + | RED CELL | 2.76 (L) | 4.00 - 5.20 | [facility] | | | COUNT | | M/cu mm | LABORATORY | | | | | | SERVICES, | | | | | | CORE | | + + + + + + | HEMOGLOBIN | 8.2 (L) | 12.0 - 16.0 | [facility] | | | | | g/dL | LABORATORY | | | | | | SERVICES, | | | | | | CORE | | + + + + + + | HEMATOCRIT | 23.7 (L) | 36.0 - 46.0 % | [facility] | | | | | | LABORATORY | | | | | | SERVICES, | | | | | | CORE | | + + + + + + | MCV | 85.9 | 80.0 - 100.0 fL | [facility] | | | | | | LABORATORY | | | | | | SERVICES, | | | | | | CORE | | + + + + + + | MCHC | 34.6 | 32.0 - 36.0 | [facility] | | | | | g/dL | LABORATORY | | | | | | SERVICES, | | | | | | CORE | | + + + + + + | RDW SD | 44.0 | 35.1 - 46.3 fL | [facility] | | | | | | LABORATORY | | | | | | SERVICES, | | | | | | CORE | | + + + + + + | PLATELET | 24 (L) | 150 - 400 K/cu | [facility] | | | COUNT | | mm | LABORATORY | | | | | | SERVICES, | | | | | | CORE | | + + + + + + | MPV | 10.9 | 9.7 - 12.3 fL | [facility] | | | | | | LABORATORY | | | | | | SERVICES, | | | | | | CORE | | + + + + + + | NRBC% | 0.0 | 0.0 - 0.3 % | [facility] | | | | | | LABORATORY | | | | | | SERVICES, | | | | | | CORE | | + + + + + + | NRBC# | 0.00 | 0.00 - 0.02 | [facility] | | | | | K/cu mm | LABORATORY | | | | | | SERVICES, | | | | | | CORE | | + + + + + + | NEUTROPHIL | 30.2 (L) | 50.0 - 70.0 % | [facility] | | | % | | | LABORATORY | | | | | | SERVICES, | | | | | | CORE | | + + + + + + | LYMPHOCYTE | 41.0 | 18.0 - 42.0 % | [facility] | | | % | | | LABORATORY | | | | | | SERVICES, | | | | | | CORE | | + + + + + + | MONOCYTE % | 24.1 (H) | 3.5 - 9.0 % | [facility] | | | | | | LABORATORY | | | | | | SERVICES, | | | | | | CORE | | + + + + + + | EOS % | 0.5 (L) | 1.0 - 3.0 % | [facility] | | | | | | LABORATORY | | | | | | SERVICES, | | | | | | CORE | | + + + + + + | BASO % | 1.4 | 0.0 - 2.0 % | [facility] | | | | | | LABORATORY | | | | | | SERVICES, | | | | | | CORE | | + + + + + + | IG% | 2.8 (H)Comment: | 0.0 - 1.0 % | [facility] | | | | Increased immature | | LABORATORY | | | | granulocytes (IG) define | | SERVICES, | | | | a left shift. Immature | | CORE | | | | granulocytes (IG) are | | | | | | an automated count of | | | | | | metamyelocytes, | | | | | | myelocytes and | | | | | | promyelocytes. Bands | | | | | | are not included in the | | | | | | IG count. Bands are | | | | | | included in the | | | | | | neutrophil count. | | | | + + + + + + | NEUTROPHIL | 0.64 (L) | 1.80 - 7.70 | [facility] | | | # | | K/cu mm | LABORATORY | | | | | | SERVICES, | | | | | | CORE | | + + + + + + | LYMPHOCYTE | 0.87 (L) | 1.00 - 4.80 | [facility] | | | # | | K/cu mm | LABORATORY | | | | | | SERVICES, | | | | | | CORE | | + + + + + + | MONOCYTE # | 0.51 | 0.10 - 0.90 | [facility] | | | | | K/cu mm | LABORATORY | | | | | | SERVICES, | | | | | | CORE | | + + + + + + | EOS # | 0.01 | 0.00 - 0.50 | [facility] | | | | | K/cu mm | LABORATORY | | | | | | SERVICES, | | | | | | CORE | | + + + + + + | BASO # | 0.03 | 0.00 - 0.10 | [facility] | | | | | K/cu mm | LABORATORY | | | | | | SERVICES, | | | | | | CORE | | + + + + + + | IG# | 0.06 | 0.00 - 0.10 | [facility] | | | | | K/cu mm | LABORATORY | | | | | | SERVICES, | | | | | | CORE | | + + + + + + + + | Specimen | + + | Blood | + + + + + | Narrative | Performed At | + + + | New pediatric reference ranges for Lymphocyte % in effect February 13 | [facility] | | 2018. New reference ranges for MCV, MCHC, PLT, IG% and IG# | LABORATORY | | effective 01/09/2018 Increased immature granulocytes (IG) define a | SERVICES, CORE | | left shift. Immature granulocytes (IG) are an automated count of | | | metamyelocytes, myelocytes and promyelocytes. Bands are not included | | | in the IG count. Bands are included in the neutrophil count. | | + + + + + + + + | Performing | Address | City/State/Zipcode | Phone Number | | Organization | | | | + + + + + | [facility] | [address] | [place] [address] | | | SERVICES, CORE | [address] | | | + + + + + ANTIBODY SCREEN (03/23/2018 4:41 PM PDT) + + + + + + | Component | Value | Ref Range | Performed | Pathologist | | | | | At | Signature | + + + + + + | Antibody | Negative | | [facility] | | | Screen | | | LABORATORY | | | | | | SERVICES, | | | | | | TRANSFUSION | | | | | | MEDICINE | | + + + + + + + + | Specimen | + + | Blood | + + + + + + + | Performing | Address | City/State/Zipcode | Phone Number | | Organization | | | | + + + + + | [facility] | [address] | [place] [address] | | | SERVICES, | [address] | | | | TRANSFUSION MEDICINE | | | | + + + + + SEDIMENTATION RATE (03/23/2018 4:41 PM PDT) + +---------+ + + + | Component | Value | Ref Range | Performed | Pathologist | | | | | At | Signature | + +---------+ + + + | SEDIMENTATI | 102 (H) | 0 - 20 mm/hr | [facility] | | | ON RATE | | | LABORATORY | | | | | | SERVICES, | | | | | | CORE | | + +---------+ + + + + + | Specimen | + + | Blood | + + + + + | Narrative | Performed At | + + + | Conditions such as cold agglutinins, anemia, hemolysis, icterus or | [facility] | | lipemia may affect sedimentation rate. | LABORATORY | | | SERVICES, CORE | + + + + + + + + | Performing | Address | City/State/Zipcode | Phone Number | | Organization | | | | + + + + + | [facility] | [address] | [place] [address] | | | SERVICES, CORE | [address] | | | + + + + + CULTURE, BLOOD BACTI & YEAST [facility] (03/23/2018 4:40 PM PDT) + + + + + + | Component | Value | Ref Range | Performed | Pathologist | | | | | At | Signature | + + + + + + | CULTURE | Final Report:No Bacteria | | [facility] | | | RESULT | or Yeast isolated at 5 | | LABORATORY | | | | days. | | SERVICES, | | | | | | CORE | | + + + + + + + + | Specimen | + + | Blood | + + + + + + + | Performing | Address | City/State/Zipcode | Phone Number | | Organization | | | | + + + + + | [facility] | [address] | [place] [address] | | | SERVICES, ANTONI | [address] | | | + + + + + CULTURE, BLOOD BACTI & YEAST [facility] (03/23/2018 4:21 PM PDT) + + + + + + | Component | Value | Ref Range | Performed | Pathologist | | | | | At | Signature | + + + + + + | CULTURE | Final Report:No Bacteria | | [facility] | | | RESULT | or Yeast isolated at 5 | | LABORATORY | | | | days. | | SERVICES, | | | | | | CORE | | + + + + + + + + | Specimen | + + | Blood | + + + + + + + | Performing | Address | City/State/Zipcode | Phone Number | | Organization | | | | + + + + + | [facility] | [phone] | [place] [address] | | | SERVICES, CORE | [address] | | | + + + + + X-RAY KNEE 2 VIEWS LEFT (03/23/2018 3:55 PM PDT) + + | Specimen | + + | | + + + + + | Narrative | Performed At | + + + | EXAM: KNEE 2 VIEWS LEFT HISTORY: evaluate for bony changes, | [facility] | | osteo, infection COMPARISON: 02/07/2018. FINDINGS: Mid | RADIOLOGY VOICE | | tibial and fibular diaphyseal amputations are redemonstrated with | RECOGNITION 2 | | smooth partially corticated margins. No fracture or focal destruction | | | is seen. There is no aggressive periosteal new bone formation. There | | | is soft tissue swelling of the stump . Irregularity of skin along the | | | anterior lateral distal soft tissue stump may represent ulceration. | | | IMPRESSION: Mid tibial and fibular amputations without | | | osteomyelitis or other complication. Soft tissue swelling with | | | possible small ulceration . I have personally reviewed the images | | | and, if necessary, edited the report. I agree with the report as now | | | presented. Final signature: Helen Parra MD 03/23/2018 | | | 4:56 PM Preliminary: Helen Parra MD Dictation | | | initiated: Helen Parra MD 03/23/2018 4:51 PM | | + + + + + | Procedure Note | + + | Service Account, Radiant Res In Interface - 03/23/2018 4:57 PM PDT EXAM: KNEE 2 | | VIEWS LEFT HISTORY: evaluate for bony changes, osteo, infection COMPARISON: 02/07/2018. | | FINDINGS: Mid tibial and fibular diaphyseal amputations are redemonstrated with smooth | | partially corticated margins. No fracture or focal destruction is seen. There is no | | aggressive periosteal new bone formation. There is soft tissue swelling of the stump . | | Irregularity of skin along the anterior lateral distal soft tissue stump may represent | | ulceration. IMPRESSION: Mid tibial and fibular amputations without osteomyelitis or | | other complication. Soft tissue swelling with possible small ulceration . I have | | personally reviewed the images and, if necessary, edited the report. I agree with the | | report as now presented. Final signature: Helen Parra MD 03/23/2018 4:56 PM | | Preliminary: Helen Parra MD Dictation initiated: Helen Parra MD | | 03/23/2018 4:51 PM | | | |Mid tibial and fibular amputations without osteomyelitis or other complication. | | | |Soft tissue swelling with possible small ulceration . | | | |I have personally reviewed the images and, if necessary, edited the report. I agree with th e report as now presented. | | | |Final signature: Helen Parra MD 03/23/2018 4:56 PM | |Preliminary: Helen Parra MD | |Dictation initiated: Helen Parra MD 03/23/2018 4:51 PM | + + + +---------+ + + | Performing | Address | City/State/Zipcode | Phone Number | | Organization | | | | + +---------+ + + | [facility] | | | | | VOICE RECOGNITION 2 | | | | + +---------+ + + documented in this encounter Visit Diagnoses Not on filedocumented in this encounter Administered Medications + +--------+ + +------+------+ | Medication Order | MAR | Action | Dose | Rate | Site | | | Action | Date | | | | + +--------+ + +------+------+ | acetaminophen (TYLENOL) tablet | Given | 04/01/20 | 1,000 mg | | | | 1,000 mg 1,000 mg, oral, EVERY 8 | | 18 8:46 | | | | | HOURS, First dose on Sat03/24/18 | | AM PDT | | | | | at 1730, Until Discontinued | | | | | | + +--------+ + +------+------+ +-------+ + +---+---+ | Given | 04/01/20 | 1,000 mg | | | | | 18 2:43 | | | | | | AM PDT | | | | +-------+ + +---+---+ | Given | 03/31/20 | 1,000 mg | | | | | 18 5:18 | | | | | | PM PDT | | | | +-------+ + +---+---+ +---+---+ | | | +---+---+ + +-------+ +-------+---+---+ | citalopram (CELEXA) tablet 40 | Given | 03/31/20 | 40 mg | | | | mg 40 mg, oral, AT BEDTIME, | | 18 10:11 | | | | | First dose on Sat03/23/18 at | | PM PDT | | | | | 2200, Until Discontinued | | | | | | + +-------+ +-------+---+---+ +-------+ +-------+---+---+ | Given | 03/30/20 | 40 mg | | | | | 18 9:08 | | | | | | PM PDT | | | | +-------+ +-------+---+---+ | Given | 03/29/20 | 40 mg | | | | | 18 9:35 | | | | | | PM PDT | | | | +-------+ +-------+---+---+ + +---+ | | | + +---+ | diphenhydrAMINE (BENADRYL) | | | capsule 25 mg 25 mg, oral, EVERY | | | 6 HOURS NEEDED, Starting Tue | | | 03/25/18 at 1034, Until Tue | | | 04/01/18 at 2201, itching | | + +---+ | | | + +---+ | | | | [id number] | | | (SPECIAL MOUTHWASH) suspension | | | (compound) 5 mL 5 mL, oral, FOUR | | | TIMES DAILY NEEDED, Starting | | | 03/23/18 at 1435, Until Tue | | | 04/01/18 at 2201, oral pain/ulcers | | + +---+ | | | + +---+ + +-------+ +-------+---+---+ | famotidine (PEPCID) tablet 20 | Given | 04/01/20 | 20 mg | | | | mg 20 mg, oral, TWICE DAILY, | | 18 8:46 | | | | | First dose on 03/23/18 at | | AM PDT | | | | | 2100, Until Discontinued | | | | | | + +-------+ +-------+---+---+ +-------+ +-------+---+---+ | Given | 03/31/20 | 20 mg | | | | | 18 8:14 | | | | | | PM PDT | | | | +-------+ +-------+---+---+ | Given | 03/31/20 | 20 mg | | | | | 18 9:17 | | | | | | AM PDT | | | | +-------+ +-------+---+---+ +---+---+ | | | +---+---+ + +-------+ + +---+---+ | heparin 10 unit/mL IV flush | Given | 04/01/20 | 50 Units | | | | syringe 50 Units 50 Units, | | 18 4:42 | | | | | intravenous, NEEDED, Starting | | AM PDT | | | | | 03/24/18 at 1501, Until Tue | | | | | | | 04/01/18 at 2201, line patency | | | | | | + +-------+ + +---+---+ +-------+ + +---+---+ | Given | 04/01/20 | 50 Units | | | | | 18 4:35 | | | | | | AM PDT | | | | +-------+ + +---+---+ | Given | 04/01/20 | 50 Units | | | | | 18 2:33 | | | | | | AM PDT | | | | +-------+ + +---+---+ + +---+ | | | + +---+ | heparin 100 unit/mL IV flush | | | 500 Units 500 Units, | | | intravenous, NEEDED, Starting | | | 03/24/18 at 0043, Until Tue | | | 04/01/18 at 2201, deaccessing | | | line/port | | + +---+ | | | + +---+ + +-------+ +-------+---+---+ | loratadine (CLARITIN) tablet 10 | Given | 04/01/20 | 10 mg | | | | mg 10 mg, oral, DAILY, First | | 18 8:46 | | | | | dose on 03/23/18 at 1615, | | AM PDT | | | | | Until Discontinued | | | | | | + +-------+ +-------+---+---+ +-------+ +-------+---+---+ | Given | 03/31/20 | 10 mg | | | | | 18 9:17 | | | | | | AM PDT | | | | +-------+ +-------+---+---+ | Given | 03/30/20 | 10 mg | | | | | 18 9:36 | | | | | | AM PDT | | | | +-------+ +-------+---+---+ +---+---+ | | | +---+---+ + +-------+ +--------+---+---+ | LORazepam (ATIVAN) tablet 0.5 | Given | 03/31/20 | 0.5 mg | | | | mg 0.5 mg, oral, AT BEDTIME | | 18 11:18 | | | | | NEEDED, Starting Sat03/26/18 at | | PM PDT | | | | | 2142, Until Sat04/01/18 at 2201, | | | | | | | insomnia, second-line (please | | | | | | | offer melatonin first) | | | | | | + +-------+ +--------+---+---+ +-------+ +--------+---+---+ | Given | 03/30/20 | 0.5 mg | | | | | 18 10:35 | | | | | | PM PDT | | | | +-------+ +--------+---+---+ | Given | 03/29/20 | 0.5 mg | | | | | 18 9:35 | | | | | | PM PDT | | | | +-------+ +--------+---+---+ +---+---+ | | | +---+---+ + +-------+ +---+---+---+ | menthol-zinc oxide (CALAZIME) | Given | 03/30/20 | | | | | topical paste 0.2%-16.5% | | 18 10:11 | | | | | topical, TWICE DAILY NEEDED, | | AM PDT | | | | | Starting 03/29/18 at 2002, | | | | | | | Until 04/01/18 at 2201, skin | | | | | | | irritation/breakdown | | | | | | + +-------+ +---+---+---+ +-------+ +---+---+---+ | Given | 03/30/20 | | | | | | 18 6:30 | | | | | | AM PDT | | | | +-------+ +---+---+---+ | Given | 03/29/20 | | | | | | 18 11:35 | | | | | | PM PDT | | | | +-------+ +---+---+---+ +---+---+ | | | +---+---+ + +-------+ + +---+ + | NaCl 0.9 % irrigation | Given | 03/24/20 | 1,000 mL | | Left Leg | | INTRAPROCEDURE PRN, Starting Mon | | 18 12:05 | | | | | 03/24/18 at 1205, Until Mon | | PM PDT | | | | | 03/24/18 at 1256 | | | | | | + +-------+ + +---+ + +---+---+ | | | +---+---+ + +-------+ +---+---+---+ | nystatin (MYCOSTATIN) powder | Given | 03/31/20 | | | | | topical, TWICE DAILY, First dose | | 18 5:19 | | | | | on 03/23/18 at 2100, Until | | PM PDT | | | | | Discontinued | | | | | | + +-------+ +---+---+---+ +-------+ +---+---+---+ | Given | 03/27/20 | | | | | | 18 9:32 | | | | | | PM PDT | | | | +-------+ +---+---+---+ | Given | 03/25/20 | | | | | | 18 9:54 | | | | | | AM PDT | | | | +-------+ +---+---+---+ +---+---+ | | | +---+---+ + +-------+ +------+---+---+ | OLANZapine (ZYPREXA) tablet 5 | Given | 03/31/20 | 5 mg | | | | mg 5 mg, oral, AT BEDTIME, First | | 18 10:11 | | | | | dose on 03/23/18 at 2200, | | PM PDT | | | | | Until Discontinued | | | | | | + +-------+ +------+---+---+ +-------+ +------+---+---+ | Given | 03/30/20 | 5 mg | | | | | 18 9:08 | | | | | | PM PDT | | | | +-------+ +------+---+---+ | Given | 03/29/20 | 5 mg | | | | | 18 9:35 | | | | | | PM PDT | | | | +-------+ +------+---+---+ +---+---+ | | | +---+---+ + +-------+ +-------+---+---+ | oxyCODONE (immediate release) | Given | 04/01/20 | 10 mg | | | | (ROXICODONE) tablet 5-15 mg 5-15 | | 18 2:44 | | | | | mg, oral, EVERY 3 HOURS | | PM PDT | | | | | NEEDED, Starting Bettie 03/27/18 at | | | | | | | 1500, Until Sat04/01/18 at 2201, | | | | | | | moderate pain | | | | | | + +-------+ +-------+---+---+ +-------+ +-------+---+---+ | Given | 04/01/20 | 10 mg | | | | | 18 10:36 | | | | | | AM PDT | | | | +-------+ +-------+---+---+ | Given | 04/01/20 | 15 mg | | | | | 18 5:56 | | | | | | AM PDT | | | | +-------+ +-------+---+---+ +---+---+ | | | +---+---+ + +---------+ +-------+---+---+ | piperacillin-tazobactam (ZOSYN) | New Bag | 04/01/20 | 4.5 g | | | | IV (minibag+) 4.5 g 4.5 g, | | 18 6:00 | | | | | intravenous, EVERY 8 HOURS, First | | AM PDT | | | | | dose on Sat03/31/18 at 1400, | | | | | | | Until Discontinued | | | | | | + +---------+ +-------+---+---+ +---------+ +-------+-------+---+ | New Bag | 03/31/20 | 4.5 g | 100 | | | | 18 10:10 | | mL/hr | | | | PM PDT | | | | +---------+ +-------+-------+---+ | New Bag | 03/31/20 | 4.5 g | | | | | 18 1:47 | | | | | | PM PDT | | | | +---------+ +-------+-------+---+ +---+---+ | | | +---+---+ + +-------+ +------+---+---+ | polyethylene glycol (MIRALAX) | Given | 03/31/20 | 17 g | | | | packet 17 g 17 g, oral, DAILY, | | 18 9:17 | | | | | First dose on 03/23/18 at | | AM PDT | | | | | 1615, Until Discontinued | | | | | | + +-------+ +------+---+---+ +-------+ +------+---+---+ | Given | 03/29/20 | 17 g | | | | | 18 7:51 | | | | | | AM PDT | | | | +-------+ +------+---+---+ | Given | 03/26/20 | 17 g | | | | | 18 8:31 | | | | | | AM PDT | | | | +-------+ +------+---+---+ +---+---+ | | | +---+---+ + +-------+ +------+---+---+ | polyethylene glycol (MIRALAX) | Given | 03/25/20 | 34 g | | | | packet 34 g 34 g, oral, THREE | | 18 6:56 | | | | | TIMES DAILY NEEDED, Starting | | AM PDT | | | | | 03/23/18 at 1423, Until Tue | | | | | | | 04/01/18 at 2201, 1st line - for | | | | | | | no BM for 2 days | | | | | | + +-------+ +------+---+---+ +---+---+ | | | +---+---+ + +-------+ +--------+---+---+ | pregabalin (LYRICA) capsule 225 | Given | 04/01/20 | 225 mg | | | | mg 225 mg, oral, TWICE DAILY, | | 18 8:46 | | | | | First dose on 03/23/18 at | | AM PDT | | | | | 1745, Until Discontinued | | | | | | + +-------+ +--------+---+---+ +-------+ +--------+---+---+ | Given | 03/31/20 | 225 mg | | | | | 18 5:18 | | | | | | PM PDT | | | | +-------+ +--------+---+---+ | Given | 03/31/20 | 225 mg | | | | | 18 9:17 | | | | | | AM PDT | | | | +-------+ +--------+---+---+ +---+---+ | | | +---+---+ + +-------+ +---------+---+---+ | senna-docusate (SENOKOT S) | Given | 03/31/20 | 2 | | | | 8.6-50 mg 2 tablet 2 tablet, | | 18 9:17 | tablets | | | | oral, TWICE DAILY, First dose on | | AM PDT | | | | | 03/23/18 at 2100, Until | | | | | | | Discontinued | | | | | | + +-------+ +---------+---+---+ +-------+ +---------+---+---+ | Given | 03/29/20 | 2 | | | | | 18 7:50 | tablets | | | | | AM PDT | | | | +-------+ +---------+---+---+ | Given | 03/27/20 | 2 | | | | | 18 9:29 | tablets | | | | | PM PDT | | | | +-------+ +---------+---+---+ +---+---+ | | | +---+---+ documented in this encounter
--- OUTSIDE RECORDS SUMMARY | ~2019-01-30 | XMS | Encounter Summary ---
Demographics + + + | Address | [address] | | | [place] [address] | + + + | Home Phone | | + + + | Preferred Language | Unknown | + + + | Marital Status | Single | + + + | Scientology Affiliation | CAT | + + + | Race | Unknown | + + + | Ethnic Group | Not or | + + + Author + + + | Author | [facility] | + + + | Organization | [facility] | + + + | Address | Unknown | + + + | Phone | Unavailable | + + + Support + + +---------+ + | Name | Relationship | Address | Phone | + + +---------+ + | Kika Cage | ECON | Unknown | | + + +---------+ + Care Team Providers + +------+ + | Care Shampooer Name | Role | Phone | + +------+ + | Santo Gooden MD | PCP | | + +------+ + Reason for Visit + + + | Reason | Comments | + + + | Symptom Management | | + + + Encounter Details +--------+ + + + + | Date | Type | Department | Care Team | Description | +--------+ + + + + | 02/04/ | Telephone | Hematology/Medical | Sandra Patel MD | Symptom Management | | 2018 | | [facility] | [address] | | | | | [facility] | [place], [place] | | | | | [address] | [address] | | | | | Mailcode: [place] | [phone] | | | | | for [facility] and | | | | | | Healing, [address] | | | | | | [facility] [place] | | | | | | [address] | | | | | | [phone] | | | +--------+ + + + [address] | | | | | | [place], [place] | | | | | | [address] | | | | | | [phone] | | | | | | | | +--------+ + + + + | 03/25/ | Office | Orthopedics | Lynda Basurto, | | | 2018 | Visit | | [address] | | | | | | [address] | | | | | | [place], [place] | | | | | | [address] | | | | | | [phone] | | | | | | | | +--------+ + + + + | 03/25/ | Office | Hematology & | Sandra Patel MD | | | 2019 | Visit | Oncology | [address] | | | | | | [place], [place] | | | | | | [address] | | | | | | [phone] | | | | | | | | +--------+ + + + + documented as of this encounter Visit Diagnoses Not on filedocumented in this encounter"
--- OUTSIDE RECORDS SUMMARY | ~2019-01-30 | XMS | Encounter Summary ---
Demographics + + + | Address | [address] | | | [place] [address] | + + + | Home Phone | | + + + | Preferred Language | Unknown | + + + | Marital Status | Single | + + + | Hindu Affiliation | CAT | + + + | Race | Unknown | + + + | Ethnic Group | Not or | + + + Author + + + | Author | [facility] | + + + | Organization | [facility] | + + + | Address | Unknown | + + + | Phone | Unavailable | + + + Support + + +---------+ + | Name | Relationship | Address | Phone | + + +---------+ + | Kika Cage | ECON | Unknown | | + + +---------+ + Care Team Providers + +------+ + | Care Hand Buffer Name | Role | Phone | + +------+ + | Santo Gooden MD | PCP | | + +------+ + Reason for Visit + + + | Reason | Comments | + + + | Lab Draw | | + + + AUTH/CERT +--------+--------+ [...] + + | 04/24/ | Hospital | Hematology/Medical | Rn, Fast Track | | | 2018 | Encounter | Oncology at [facility] | [address] | | | | | [address] | [place] [address] | | | | | Mailcode: [facility] | | | | | | for Health and | | | | | | Healing, [address] | | | | | | [place], [place] | | | | | | [address] | | | | | | [phone] | | | +--------+ + + + [...] physical, mental, or emotional | No | 04/24/2018 | | condition, do you have serious difficulty | | | | doing errands alone such as visiting the | | | | doctor? | | | + + + + + + + + | Cognitive Status | Response | Date of Assessment | + + + + | Because of a physical, mental, or emotional | No | 04/24/2018 | | condition, do you have serious difficulty | | | | concentrating, remembering, or making | | | | decisions? (5 years old or older) | | | + + + + documented as of this encounter Medications at Time of Discharge + + + +---------+ + + | Medication | Sig | Dispensed [...] + + + +---------+ + + | LYRICA 225 mg oral | Take 1 capsule by | 60 | 1 | 04/25/20 | | | capsuleIndications: | mouth two times | capsule | | 18 | | | phantom pain | daily. At 0900 and | | | | | | | 1700. Indications: | | | | | | | phantom pain | | | | | + + + +---------+ + + | metroNIDAZOLE 500 | Take 1 tablet by | 90 | 0 | 04/09/20 | | | mg oral | mouth every eight | tablet | | 18 | 8 | | tabletIndications: | hours. Indications: | | | | | | osteomyelitis | osteomyelitis | | | | | + + + +---------+ + + documented as of this encounter Progress Notes Bianca Massey RN - 04/24/2018 7:54 AM PDTPt arrived with medial side of double lumen PA C accessed for home infusion. Medial side flushed and deaccessed per protocol. Both sides of double lumen PAC accessed per protocol for inpatient treatment. Site given 1% lidocaine int radermally. Alcohol and betadine used. 1" strong needles required both sides. CBC and CMP wer e drawn via PAC, resulted via POC and reviewed. Mag and phos drawn via PAC and sent to lab. PAC flushed per protocol and left accessed for treatment. Pt provided urine sample. Pt teodoro ated without incident. Pt discharged to provider visit. documented in this en counter Plan of Treatment +--------+ + + + + | Date | Type | Specialty | Care Team | Description | +--------+ + + + + | 03/25/ | Appointment | Radiology | Sandra Patel MD | | | 2018 | | | [address] | | | | | | [place], [place] | | | | | | [address] | | | | | | [phone] | | | | | | | | +--------+ + + + + | 03/25/ | Office | Orthopedics | Lynda Basurto, | | | 2018 | Visit | | [address] | | | | | | [address] | | | | | | [place], [place] | | | | | | [address] | | | | | | [phone] | | | | | | | | +--------+ + + + + | 03/25/ | Office | Hematology & | Sandra Patel MD | | | 2018 | Visit | Oncology | [address] | | | | | | [place], [place] | | | | | | [address] | | | | | | [phone] | | | | | | | | +--------+ + + + + documented as of this encounter Procedures + +--------+ + + + | Procedure Name | Priori | Date/Time | Associated Diagnosis | Comments | | | ty | | | | + +--------+ + + + | COMPLETE METABOLIC | Routin | 04/24/2018 | Synovial sarcoma | | | PANEL - OLP | e | 9:07 AM | (HCC) | | | | | PDT | | | + +--------+ + + + | CMP, POC (BMP+LFT) | Routin | 04/24/2018 | Synovial sarcoma | Results for this | | | e | 9:07 AM | (HCC) | procedure are in the | | | | PDT | | results section. | + +--------+ + + + | CBC WITH AUTO DIFF - | Routin | 04/24/2018 | Synovial sarcoma | | | OLP | e | 9:02 AM | (HCC) | | | | | PDT | | | + +--------+ + + + | CBC+DIFF,POC | Routin | 04/24/2018 | Synovial sarcoma | Results for this | | | e | 9:02 AM | (HCC) | procedure are in the | | | | PDT | | results section. | + +--------+ + + + | MAGNESIUM, PLASMA - | Routin | 04/24/2018 | Synovial sarcoma | Results for this | | OLP | e | 7:57 AM | (HCC) | procedure are in the | | | | PDT | | results section. | + +--------+ + + + | URINE, MICROSCOPIC | Routin | 04/24/2018 | Synovial sarcoma | Results for this | | EXAM | e | 7:57 AM | (HCC) | procedure are in the | | | | PDT | | results section. | + +--------+ + + + | PHOSPHORUS, PLASMA | Routin | 04/24/2018 | Synovial sarcoma | Results for this | | | e | 7:57 AM | (HCC) | procedure are in the | | | | PDT | | results section. | + +--------+ + + + | MAGNESIUM, PLASMA | Routin | 04/24/2018 | Synovial sarcoma | Results for this | | | e | 7:57 AM | (HCC) | procedure are in the | | | | PDT | | results section. | + +--------+ + + + documented in this encounter Results CMP, POC (BMP+LFT) (04/24/2018 9:07 AM PDT) + +---------+ + + + | Component | Value | Ref Range | Performed | Pathologist | | | | | At | Signature | + +---------+ + + + | SODIUM, POC | 142 | 134 - 143 | [facility], | | | | | mmol/L | POINT OF | | | | | | CARE TESTS | | + +---------+ + + + | POTASSIUM, | 3.4 | 3.4 - 5.0 | [facility], | | | POC | | mmol/L | POINT OF | | | | | | CARE TESTS | | + +---------+ + + + | TOTAL CO2, | 30 (H) | 22 - 29 mmol/L | [facility], | | | POC | | | POINT OF | | | | | | CARE TESTS | | + +---------+ + + + | CHLORIDE, | 102 | 97 - 108 mmol/L | [facility], | | | POC | | | POINT OF | | | | | | CARE TESTS | | + +---------+ + + + | GLUCOSE, | 110 (H) | 70 - 99 mg/dL | [facility], | | | POC | | | POINT OF | | | | | | CARE TESTS | | + +---------+ + + + | CALCIUM | 9.0 | 8.6 - 10.2 | [facility], | | | TOTAL, POC | | mg/dL | POINT OF | | | | | | CARE TESTS | | + +---------+ + + + | BUN, POC | 10 | 6 - 20 mg/dL | [facility], | | | | | | POINT OF | | | | | | CARE TESTS | | + +---------+ + + + | CREATININE, | 0.7 | 0.6 - 1.1 mg/dL | [facility], | | | POC | | | POINT OF | | | | | | CARE TESTS | | + +---------+ + + + | ALK PHOS, | 44 | 33 - 76 U/L | [facility], | | | CMP POC | | | POINT OF | | | | | | CARE TESTS | | + +---------+ + + + | ALT, CMP | <20 | 0 - 60 U/L | [facility], | | | POC | | | POINT OF | | | | | | CARE TESTS | | + +---------+ + + + | AST, CMP | 23 | 0 - 41 U/L | [facility], | | | POC | | | POINT OF | | | | | | CARE TESTS | | + +---------+ + + + | BILIRUBIN | 0.5 | 0.3 - 1.2 mg/dL | [facility], | | | TOTAL, CMP | | | POINT OF | | | POC | | | CARE TESTS | | + +---------+ + + + | ALBUMIN, | 3.5 | 3.5 - 4.7 g/dL | [facility], | | | CMP POC | | | POINT OF | | | | | | CARE TESTS | | + +---------+ + + + | PROTEIN | 6.4 | 6.1 - 7.9 g/dL | [facility], | | | TOTAL, CMP | | | POINT OF | | | POC | | | CARE TESTS | | + +---------+ + + + + + | Specimen | + + | Blood | + + + + + + + | Performing | Address | City/State/Zipcode | Phone Number | | Organization | | | | + + + + + | [facility] POINT | [address] | [place] [address] | | | OF CARE TESTS | | | | + + + + + CBC+DIFF,POC (04/24/2018 9:02 AM PDT) + + + + + + | Component | Value | Ref Range | Performed | Pathologist | | | | | At | Signature | + + + + + + | WBC POC | 5.3 | 3.5 - 10.8 | [facility], | | | | | 10*3/uL | POINT OF | | | | | | CARE TESTS | | + + + + + + | RBC POC | 3.75 (L) | 4.00 - 5.20 | [facility], | | | | | 10*6/uL | POINT OF | | | | | | CARE TESTS | | + + + + + + | HGB POC | 11.6 (L) | 12.0 - 16.0 | [facility], | | | | | g/dL | POINT OF | | | | | | CARE TESTS | | + + + + + + | HCT POC | 34.0 (L) | 36.0 - 46.0 % | [facility], | | | | | | POINT OF | | | | | | CARE TESTS | | + + + + + + | MCV POC | 90.7 | 80.0 - 100 fL | [facility], | | | | | | POINT OF | | | | | | CARE TESTS | | + + + + + + | MCH POC | 30.9 | 27.0 - 34.0 pg | [facility], | | | | | | POINT OF | | | | | | CARE TESTS | | + + + + + + | MCHC POC | 34.1 | 32.0 - 36.0 | [facility], | | | | | g/dL | POINT OF | | | | | | CARE TESTS | | + + + + + + | RDW SD, POC | 48.4 (H) | 35.1 - 46.3 fL | [facility], | | | | | | POINT OF | | | | | | CARE TESTS | | + + + + + + | PLT POC | 173 | 150 - 400 | [facility], | | | | | 10*3/uL | POINT OF | | | | | | CARE TESTS | | + + + + + + | MPV POC | 9.2 (L) | 9.7 - 12.3 fL | [facility], | | | | | | POINT OF | | | | | | CARE TESTS | | + + + + + + | NEUTROPHIL% | 57.5 | 50.0 - 70.0 % | [facility], | | | POC | | | POINT OF | | | | | | CARE TESTS | | + + + + + + | LYMPH% POC | 24.9 | 18 - 42 % | [facility], | | | | | | POINT OF | | | | | | CARE TESTS | | + + + + + + | MONO %, POC | 9.0 | 3.5 - 9.0 % | [facility], | | | | | | POINT OF | | | | | | CARE TESTS | | + + + + + + | EOS %, POC | 7.3 (H) | 1.0 - 3.0 % | [facility], | | | | | | POINT OF | | | | | | CARE TESTS | | + + + + + + | BASO %, POC | 1.3 | 0.0 - 2.0 % | [facility], | | | | | | POINT OF | | | | | | CARE TESTS | | + + + + + + | NEUTROPHIL# | 3.0 | 1.8 - 7.7 | [facility], | | | POC | | 10*3/uL | POINT OF | | | | | | CARE TESTS | | + + + + + + | LYMPH# POC | 1.3 | 1.0 - 4.8 | [facility], | | | | | 10*3/uL | POINT OF | | | | | | CARE TESTS | | + + + + + + | MONO #, POC | 0.5 | 0.1 - 0.9 | [facility], | | | | | 10*3/uL | POINT OF | | | | | | CARE TESTS | | + + + + + + | EOS #, POC | 0.4 | 0.0 - 0.5 | [facility], | | | | | 10*3/uL | POINT OF | | | | | | CARE TESTS | | + + + + + + | BASO #, POC | 0.1 | 0.0 - 0.1 | [facility], | | | | | 10*3/uL | POINT OF | | | | | | CARE TESTS | | + + + + + + + + | Specimen | + + | Blood | + + + + + + + | Performing | Address | City/State/Zipcode | Phone Number | | Organization | | | | + + + + + | [facility] | [address] | [place] [address] | | | OF CARE TESTS | | | | + + + + + MAGNESIUM, PLASMA (04/24/2018 7:57 AM PDT) + +-------+ + + + | Component | Value | Ref Range | Performed | Pathologist | | | | | At | Signature | + +-------+ + + + | MAGNESIUM,P | 1.9 | 1.6 - 2.6 mg/dL | [facility] | | | L[facility]MA | | | LABORATORY | | | | | | SERVICES, | | | | | | CORE | | + +-------+ + + + + + | Specimen | + + | Blood | + + + + + | Narrative | Performed At | + + + | Reference range change effective 04/16/17. | [facility] | | | LABORATORY | | | SERVICES, CORE | + + + + + + + + | Performing | Address | City/State/Zipcode | Phone Number | | Organization | | | | + + + + + | [facility] | [address] | [place] [address] | | | SERVICES, CORE | [address] | | | + + + + + URINE, MICROSCOPIC EXAM (04/24/2018 7:57 AM PDT) + + + + + + | Component | Value | Ref Range | Performed | Pathologist | | | | | At | Signature | + + + + + + | RED CELLS | 3 | 0 - 3 /hpf | [facility] | | | | | | LABORATORY | | | | | | SILVIO, | | | | | | CORE | | + + + + + + | WHITE CELLS | 5 | 0 - 5 /hpf | [facility] | | | | | | LABORATORY | | | | | | SERVICES, | | | | | | CORE | | + + + + + + | BACTERIA | None | None /hpf | [facility] | | | | | | LABORATORY | | | | | | SERVICES, | | | | | | CORE | | + + + + + + | YEAST (LAB) | None | None /hpf | [facility] | | | | | | LABORATORY | | | | | | SERVICES, | | | | | | CORE | | + + + + + + | SQUAMOUS | Few (A) | None /hpf | [facility] | | | EPITHELIAL | | | LABORATORY | | | | | | SERVICES, | | | | | | CORE | | + + + + + + | MUCOUS | None | None /hpf | [facility] | | | | | | LABORATORY | | | | | | SERVICES, | | | | | | CORE | | + + + + + + | TRICHOMONAS | None | None /hpf | [facility] | | | | | | LABORATORY | | | | | | SERVICES, | | | | | | CORE | | + + + + + + | NON-SQUAMOU | None | None /hpf | [facility] | | | S EPITH | | | LABORATORY | | | | | | SERVICES, | | | | | | CORE | | + + + + + + | HYALINE | 0 | 0 - 2 /lpf | [facility] | | | CASTS | | | LABORATORY | | | | | | SERVICES, | | | | | | CORE | | + + + + + + | GRANULAR | 0 | 0 - 2 /lpf | [facility] | | | CASTS | | | LABORATORY | | | | | | SERVICES, | | | | | | CORE | | + + + + + + | CELLULAR | 0 | <=0 /lpf | [facility] | | | CASTS | | | LABORATORY | | | | | | SERVICES, | | | | | | CORE | | + + + + + + | TRIPLE P04 | None | None /hpf | [facility] | | | CRYSTALS | | | LABORATORY | | | | | | SERVICES, | | | | | | CORE | | + + + + + + | CALCIUM | Moderate (A) | None /hpf | [facility] | | | OXALATE | | | LABORATORY | | | FLORENTINO | | | SERVICES, | | | | | | CORE | | + + + + + + | URIC ACID | None | None /hpf | [facility] | | | CRYSTALS | | | LABORATORY | | | | | | SERVICES, | | | | | | CORE | | + + + + + + | AMORPHOUS | None | None /hpf | [facility] | | | CRYSTALS | | | LABORATORY | | | | | | SERVICES, | | | | | | CORE | | + + + + + + + + | Specimen | + + | Urine | + + + + + + + | Performing | Address | City/State/Zipcode | Phone Number | | Organization | | | | + + + + + | [facility] | [address] | [place] [address] | | | SERVICES, CORE | [address] | | | + + + + + PHOSPHORUS, PLASMA (04/24/2018 7:57 AM PDT) + +-------+ + + + | Component | Value | Ref Range | Performed | Pathologist | | | | | At | Signature | + +-------+ + + + | PHOSPHORUS, | 3.9 | 2.4 - 4.7 mg/dL | [facility] | | | PLASMA [...] + | [facility] | [address] | [place] [address] | | | SERVICES, CORE | [address] | | | + + + + + documented in this encounter Visit Diagnoses + + | Diagnosis | + + | 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
--- OUTSIDE RECORDS SUMMARY | ~2019-01-30 | XMS | Encounter Summary ---
Demographics + + + | Address | [address] | | | [place] [address] | + + + | Home Phone [...] Author + + + | Author | [facility] | + + + | Organization | [facility] | + + + | Address | Unknown | + + + | Phone | Unavailable | + + + Support + + +---------+ + | Name | Relationship | Address | Phone | + + +---------+ + | Kika Cage | ECON | Unknown | | + + +---------+ + Care Team Providers + +------+ + | Care Teletype Adjuster Name | Role | Phone | + +------+ + | Santo Gooden MD | PCP | | + +------+ + Reason for Visit + + + | Reason | Comments | + + + | Treatment Planning | neulasta | + + + Encounter Details +--------+ + + + + | Date | Type | Department | Care Team | Description | +--------+ + + + + | 02/19/ | Telephone | Hematology/Medical | Sandra Patel MD | Treatment Planning | | 2018 | | Oncology at [place] | [address] | ([place]) | | | | for Health & Healing | [place], [place] | | | | | [address] | [address] | | | | | Mailcode: [facility] | [phone] | | | | | for Health and | | | | | | Healing, [address] | | | | | | [place], [place] | | | | | | [address] | | | | | | [phone] | | | +--------+ + + + [...] | | | 2018 | | | [address] | | | | | | [place], [place] | | | | | | [address] | | | | | | [phone] | | | | | | | | +--------+ + + + + | 03/25/ | Office | Orthopedics | Lynda ulloa, | | | 2018 | Visit | | [address] | | | | | | [address] | | | | | | [facility] [place] | | | | | | [address] | | | | | | [phone] | | | | | | | | +--------+ + + + + | 03/25/ | Office | Hematology & | Sandra Patel MD | | | 2018 | Visit | Oncology | [address] | | | | | | [place], [place] | | | | | | [address] | | | | | | [phone] | | | | | | | | +--------+ + + + + documented as of this encounter Visit Diagnoses Not on filedocumented in this encounter"
--- OUTSIDE RECORDS SUMMARY | ~2019-01-30 | XMS | Encounter Summary ---
Demographics + + + | Address | [address] | | | [place] [address] | + + + | Home Phone | | + + + | Preferred Language | Unknown | + + + | Marital Status | Single | + + + | Mormonism Affiliation | CAT | + + + | Race | Unknown | + + + | Ethnic Group | Not or | + + + Author + + + | Author | [facility] | + + + | Organization | [facility] | + + + | Address | Unknown | + + + | Phone | Unavailable | + + + Support + + +---------+ + | Name | Relationship | Address | Phone | + + +---------+ + | Kika Cage | ECON | Unknown | | + + +---------+ + Care Team Providers + +------+ + | Care Bit Sander Name | Role | Phone | + [...] | +--------+ + + + + | 02/24/ | Telephone | Hematology/Medical | Work, Social | Social Work Notes | | 2017 | | Oncology at [place] | | | | | | for Health & Healing | | | | | | [address] | | | | | | Mailcode: [place] | | | | | | for Health and | | | | | | [facility] | | | | | | [place], [place] | | | | | | [address] | | | | | | [phone] | | | +--------+ + + + [...] [address] | | | | | | [place], [place] | | | | | | [address] | | | | | | [phone] | | | | | | | | +--------+ + + + + | 03/25/ | Office | Orthopedics | Paul Basurtoen, | | | 2018 | Visit | | [address] | | | | | | [address] | | | | | | [place], [place] | | | | | | [address] | | | | | | [phone] | | | | | | | | +--------+ + + + + | 03/25/ | Office | Hematology & | Sandra Patel MD | | | 2018 | Visit | Oncology | [address] | | | | | | [place], [place] | | | | | | [address] | | | | | | [phone] | | | | | | | | +--------+ + + + + documented as of this encounter Visit Diagnoses Not on filedocumented in this encounter"
--- OUTSIDE RECORDS SUMMARY | ~2019-01-30 | XMS | Encounter Summary ---
Demographics + + + | Address | [address] | | | [place] [address] | + + + | Home Phone | | + + + | Preferred Language | Unknown | + + + | Marital Status | Single | + + + | Jehovah'S Witness Affiliation | CAT | + + + | Race | Unknown | + + + | Ethnic Group | Not or | + + + Author + + + | Author | [facility] | + + + | Organization | [facility] | + + + | Address | Unknown | + + + | Phone | Unavailable | + + + Support + + +---------+ + | Name | Relationship | Address | Phone | + + +---------+ + | Kika Cage | ECON | Unknown | | + + +---------+ + Care Team Providers + +------+ + | Care Funeral Car Driver Name | Role | Phone | + [...] | +--------+ + + + + | 07/14/ | MyChart | Hematology/Medical | Sandra Patel MD | RE: [facility] | | 2018 | Encounter | Oncology at [place] | [address] | | | | | for Health & Healing | [place], [place] | | | | | [address] | [address] | | | | | Mailcode: [place] | [phone] | | | | | [facility] | | | | | | and [address], | | | | | | Floor [facility] [place] | | | | | | [address] | | | | | | [phone] | | | +--------+ + + + [...] | 03/25/ | Appointment | Radiology | Sanrda Patel MD | | | 2018 | | | [address] | | | | | | [place], [place] | | | | | | [address] | | | | | | [phone] | | | | | | | | +--------+ + + + + | 03/25/ | Office | Orthopedics | Lynda Basurto, | | | 2018 | Visit | | [address] | | | | | | [address] | | | | | | [place], [place] | | | | | | [address] | | | | | | [phone] | | | | | | | | +--------+ + + + + | 03/25/ | Office | Hematology & | Sandra Patel MD | | | 2018 | Visit | Oncology | [address] | | | | | | [place], [place] | | | | | | [address] | | | | | | [phone] | | | | | | | | +--------+ + + + + + + +--------+ + + | Name | Type | Priori | Associated Diagnoses | Order Schedule | | | | ty | | | + + +--------+ + + | CBC+DIFF,POC | Lab - Point | Routin | History of | Ordered: 07/14/2018 | | | of Care | e | chemotherapy | | | | Interface | | | | + + +--------+ + + | CMP, POC (BMP+LFT) | Lab - Point | Routin | History of | Ordered: 07/14/2018 | | | of Care | e | chemotherapy | | | | Interface | | | | + + +--------+ + + documented as of this encounter Results INR (08/06/2018 1:32 PM PST) + +-------+ + + + | Component | Value | Ref Range | Performed | Pathologist | | | | | At | Signature | + +-------+ + + + | INR | 0.99 | 0.90 - 1.20 INR | [facility] [...] | Venous Thromboembolism (2.0 - 3.0) INR INR | LABORATORY | | for most patients with mech. valves (2.5 - 3.5) INR | SERVICES, CORE | + + + + + + + + | Performing | Address | City/State/Zipcode | Phone Number | | Organization | | | | + + + + + | [facility] | [address] | [place] [address] | | | SERVICES, CORE | [address] | | | + + + + + documented in this encounter Visit Diagnoses + + | Diagnosis | + + | History of chemotherapy - Primary Personal history of antineoplastic chemotherapy | + + documented in this encounter"
--- OUTSIDE RECORDS SUMMARY | ~2019-01-30 | XMS | Clinical Summary ---
Demographics + + + | Address | [address] | | | [place] [address] | + + + | Home Phone | | + + + | Preferred Language | Unknown | + + + | Marital Status | Single | + + + | Mandaen Affiliation | CAT | + + + | Race | Unknown | + + + | Ethnic Group | Not or | + + + Author + + + | Author | [facility] | + + + | Organization | [facility] | + + + | Address | Unknown | + + + | Phone | Unavailable | + + + Support + + +---------+ + | Name | Relationship | Address | Phone | + + +---------+ + | Kika Cage | ECON | Unknown | | + + +---------+ + Care Team Providers + +------+ + | Care Banking Teacher Name | Role | Phone | + +------+ + | Santo Gooden MD | PP | | + +------+ + Source Comments LU[facility] is fully live on both [facility] and [facility] Allergies + + + + + + | Active Allergy | Reactions | Severity | Noted | Comments | | | | | Date | | + + + + + + | Chlorhexidine | Rash | | 03/12/20 | | | | | | 18 | | + + + + + + | Meperidine Hcl | Pruritus | | 01/16/20 | | | | | | 18 | | + + + + + + | Morphine | Pruritus | | 01/16/20 | | | | | | 18 | | + + + + + + Medications + + + +---------+------+------+-------+ | Medication | Sig | Dispensed | Refills | Star | End | Statu | | | | | | t | Date | s | | | | | | Date | | | + + + +---------+------+------+-------+ | citalopram 40 mg | Take 40 mg by mouth | | 0 | | | Activ | | oral tablet | once daily at | | | | | e | | | bedtime. | | | | | | + + + +---------+------+------+-------+ | loratadine | Take 10 mg by mouth | | 0 | | | Activ | | (CLARITIN) 10 mg | once daily. | | | | | e | | oral tablet | | | | | | | + + + +---------+------+------+-------+ | LYRICA 225 mg oral | Take 1 capsule by | 60 | 1 | 08/2 | | Activ | | capsuleIndications: | mouth two times | capsule | | 420 | | e | | phantom pain | daily. At 0900 and | | | 18 | | | | | 1700. Indications: | | | | | | | | phantom pain | | | | | | + + + +---------+------+------+-------+ | naproxen 500 mg | | | 0 | 03/1 | | Activ | | oral tablet | | | | 120 | | e | | | | | | 19 | | | + + + +---------+------+------+-------+ | clonazePAM 1 mg | | | 0 | 03/0 | | Activ | | oral tablet | | | | 20 | | e | | | | | | 19 | | | + + + +---------+------+------+-------+ | buPROPion 75 mg | | | 0 | 03/2 | | Activ | | oral tablet | | | | 8/20 | | e | | | | | | 19 | | | + + + +---------+------+------+-------+ Active Problems + + + | Problem | Noted Date | + + + | Encounter for long-term (current) use of antibiotics | 03/31/2018 | + + + | Osteomyelitis | 03/31/2018 | + + + | Thrombocytopenia | 03/25/2018 | + + + | Neutropenic fever | 03/23/2018 | + + + | Hx of BKA, left | 03/23/2018 | + + + | Amputation stump infection | 03/23/2018 | + + + | Obesity | 03/23/2018 | + + + | Anemia | 03/23/2018 | + + + | 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 | + + + | Mass of left foot | 01/15/2018 | + + + Encounters +--------+ + + + + | Date | Type | Specialty | Care Team | Description | +--------+ + + + + | 01/16/ | MyChart | | Lynda Basurto, | RE: Stump wound | | 2018 | Encounter | | MD | | +--------+ + + + + | 01/15/ | Telephone | | Lynda Basurto, | Abscess | | 2018 | | | MD | | +--------+ + + + + | 12/29/ | Telephone | | Lynda Basurto, | | 2018 | | | MD | | +--------+ + + + + | 12/19/ | Telephone | | Palomo Pena MD | Fall; Post Op | | 2018 | | | | | +--------+ + + + + | 12/03/ | Office | | Sandra Patel MD | 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 | | | (HCC) (Primary Dx) | +--------+ + + + + | 12/03/ | Office | | Lynda Basurto, | 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 | | | (HCC) (Primary Dx) | +--------+ + + + + | 12/03/ | Hospital | | Sandra Patel MD | | | 2018 | Encounter | | | | +--------+ + + + + | 12/03/ | Documentati | | Work, Social | Social Work Notes | | 2018 | on | | | | +--------+ + + + + | 11/07/ | Telephone | | Sandra Patel MD | Other ([employer] [facility] | | 2018 | | | | Appeal) | +--------+ + + + + from Last 3 Months Immunizations + + + + | Name | Administration Dates | Next Due | + + + + | Influenza, | 06/09/2018 | | | injectable, | | | | quadrivalent, | | | | preservative free | | | | (IIV4) | | | + + + + | Lidocaine 1% | 01/15/2018 | | + + + + Family History + + +------+ + | Medical History | Relation | Name | Comments | + + +------+ + | None | Father | | | + + +------+ + | Cancer | Maternal | | pancreatic | | | Grandmoth | | | | | er | | | + + +------+ + | None | Mother | | | + + +------+ + + +------+--------+ + | Relation | Name | Status | Comments | + +------+--------+ + | Father | | | | + +------+--------+ + | Maternal Grandmother | | | | + +------+--------+ + | Mother | | | | + +------+--------+ + Social History + +-------+ +--------+------+ | [...] recent travel history available. | + + Last Filed Vital Signs + + + + + | Vital Sign | Reading | Time Taken | Comments | + + + + + | Blood Pressure | 132/80 | 12/03/2018 3:38 PM | | | | | PDT | | + + + + + | Pulse | 78 | 12/03/2018 3:38 PM | | | | | PDT | | + + + + + | Temperature | 36.5 C (97.7 F) | 12/03/2018 3:38 PM | | | | | PDT | | + + + + + | Respiratory Rate | 16 | 12/03/2018 3:38 PM | | | | | PDT | | + + + + + | Oxygen Saturation | 98% | 12/03/2018 3:38 PM | | | | | PDT | | + + + + + | Inhaled Oxygen | - | - | | | Concentration | | | | + + + + + | Weight | 155.2 kg (342 lb 1.6 | 12/03/2018 3:38 PM | | | | oz) | PDT | | + + + + + | Height | 172.7 cm (5' 8") | 04/24/2018 2:04 PM | | | | | PDT | | + + + + + | Body Mass Index | 52.02 | 04/24/2018 2:04 PM | | | | | PDT | | + + + + + Plan of Treatment +--------+ + + + + | Date | Type | Specialty | Care Team | Description | +--------+ + + + + | 03/25/ | Appointment | | Sandra Patel MD | | | 2018 | | | [address] | | | | | | [place], [place] | | | | | | [address] | | | | | | [phone] | | | | | | | | +--------+ + + + + | 03/25/ | Office | | Lynda Basurto, | | | 2018 | Visit | | [address] | | | | | | [address] | | | | | | [place], [place] | | | | | | [address] | | | | | | [phone] | | | | | | | | +--------+ + + + + | 03/25/ | Office | | Sandra Patel MD | | | 2019 | Visit | | [address] | | | | | | [place], [place] | | | | | | [address] | | | | | | [phone] | | | | | | | | +--------+ + + + + + + + + + | Health Maintenance | Due Date | Last Done | Comments | + + + + + | Pneumococcal | | | | | vaccination (1 of 3 | 0 | | | | - PCV13) | | | | + + + + + | Influenza (Flu) | Completed | 06/09/2018, 10/09/2017, | | | vaccination | | 05/22/2016, Additional history | | | | | exists | | + + + + + Implants + +------+--------+ +--------+--------+--------+ | Implanted | Type | Area | Manufacture | Device | Shelf | Model | | | | | r | | Expira | / | | | | | | Identi | tion | Serial | | | | | | fier | Date | / Lot | + +------+--------+ +--------+--------+--------+ | Port Implantable Infusion Mri | | Right: | BARD | | 03/29/ | [id number] | | Plastic 10fr 2 Lumen | | Chest | | | 2020 | 0 / | | Attachable Catheter Peel | | | | | | [id number] | | Apart Percutaneous - | | | | | | 465 | | [id number]: Qty: 1 on | | | | | | | | 02/06/2018 by Sb, | | | | | | | | MD Lynda at [facility] | | | | | | | | INPATIENT REV LOC | | | | | | | + +------+--------+ +--------+--------+--------+ + + | Description:NOT power | | injectable port per CXR on | | 02/07/18 and Bard product sheet | | Jerica Wolf RN | | 03/31/18 | + + Procedures + +--------+ + + + | Procedure Name | Priori | Date/Time | Associated Diagnosis | Comments | | | ty | | | | + +--------+ + + + | CT CHEST WO CONTRAST | Routin | 12/03/2018 | Synovial sarcoma | Results for this | | | e | 2:02 PM | (HCC) | procedure are in the | | | | PDT | | results section. | + +--------+ + + + | ORDERS OTHER | | 12/01/2018 | | Results for this | | | | 8:06 AM | | procedure are in the | | | | PDT | | results section. | + +--------+ + + + | ORDERS OTHER | | 11/26/2018 | | Results for this | | | | 3:01 PM | | procedure are in the | | | | PDT | | results section. 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 Status post 3 cycles of | [facility] | | chemotherapy. Currently off treatment. COMPARISON: 08/16/2018 | RECOGNITION 2 | | TECHNIQUE: Helical scanning was obtained of the chest without | | | intravenous contrast and reviewed in soft tissue and lung algorithm. | | | Coronal and sagittal images were also generated. FINDINGS: | | | Lower neck is unremarkable. No pathologically enlarged mediastinal | | | nodes. Heart is normal in size. No pericardial effusion. Aorta and | | | branch vessels are normal. No pleural effusion or pneumothorax. No | | | pulmonary edema or focal consolidation. Airways are patent. No new or | | | enlarging pulmonary nodules. Small amount of sludge layers | | | dependently in the gallbladder. No evidence of cholecystitis. | | | Remainder of the abdomen is unremarkable. Mild cortical | | | irregularity of the mid right 12th rib is unchanged from 03/31/2018. | | | Multilevel degenerative changes of the spine are unchanged. | | | IMPRESSION: Since 08/06/2018, no evidence of metastasis. I have | | | personally reviewed the images and, if necessary, edited the report. | | | I agree with the report as now presented. 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 | | Status post 3 cycles of chemotherapy. Currently off treatment. COMPARISON: 08/16/2018 | | TECHNIQUE: Helical scanning was obtained of the chest without intravenous contrast and | | reviewed in soft tissue and lung algorithm. Coronal and sagittal images were also | | generated. FINDINGS: Lower neck is unremarkable. No pathologically enlarged mediastinal | | nodes. Heart is normal in size. No pericardial effusion. Aorta and branch vessels are | | normal. No pleural effusion or pneumothorax. No pulmonary edema or focal consolidation. | | Airways are patent. No new or enlarging pulmonary nodules. Small amount of sludge layers | | dependently in the gallbladder. No evidence of cholecystitis. Remainder of the abdomen | | is unremarkable. Mild cortical irregularity of the mid right 12th rib is unchanged from | | 03/31/2018. Multilevel degenerative changes of the spine are unchanged. IMPRESSION: Since | | 08/06/2018, no evidence of metastasis. I have personally reviewed the images and, if | | necessary, edited the report. I agree with the report as now presented. Final | | signature: Francie Sweeney MD 12/03/2018 4:30 PM Preliminary: Андрей Farah MD Dictation | | initiated: Андрей Farah MD 12/03/2018 3:15 PM | |Mild cortical irregularity of the mid right 12th rib is unchanged from 03/31/2018. Multileve l degenerative changes of the spine are unchanged. | | | |IMPRESSION: | | | |Since 08/06/2018, no evidence of metastasis. | | | |I have personally reviewed the images and, if necessary, edited the report. I agree with th e report as now presented. | | | |Final signature: Francie Sweeney MD 12/03/2018 4:30 PM | |Preliminary: Андрей Farah MD | |Dictation initiated: Андрей Farah MD 12/03/2018 3:15 PM | + + + +---------+ + + | Performing | Address | City/State/Zipcode | Phone Number | | Organization | | | | + +---------+ + + | [facility] | | | | | VOICE RECOGNITION 2 | | | | + +---------+ + + ORDERS OTHER (12/01/2018 8:06 AM PDT)Only the most recent of 2 results within the time per iod is included. + + + | Narrative | Performed At | + + + | | | + + + from Last 3 Months Insurance + +--------+ +--------+ + +--------+ | Payer | Benefi | Subscriber | Effect | Phone | Address | Type | | | t Plan | ID | russ | | | | | | / | | Dates | | | | | | Group | | | | | | + +--------+ +--------+ + +--------+ | [employer] | BLUE | [phone] | 09/02/19 | [phone] | [address] | PPO | | | CROSS | | 16-Pre | 8 | [address] | | | | [place] | | sent | | [place], | | | | L | | | | [place] [address] | | + +--------+ +--------+ + +--------+ | [facility] | | [phone] | Effect | | | Agency | | SERVICE | | | russ | | | | | | HEALTH | | for | | | | | | | | all | | | | | | SERVIC | | dates | | | | | | E | | | | | | + +--------+ +--------+ + +--------+ + +--------+ +--------+ + + | Guarantor Name | Accoun | Relation to | Date | Phone | Billing Address | | | t Type | Patient | of | | | | | | | | | | + +--------+ +--------+ + + | Tati Cage | Person | Self | [birth year] | [address] | | | al/Fam | | 1985 | [phone] | [place] [address] | | | emerita | | | 4 (Home) | | + +--------+ +--------+ + + Advance Directives + + + + + | Code Status | Date | Date | Comments | | | Activated | Inactivated | | + + + + + | Full Code | 05/05/2018 | 05/09/2018 | | | | 8:52 PM | 7:37 PM | | + + + + + + + + +---+ | | | | | + + + +---+ | Full Code | 04/24/2018 | 04/27/2018 | | | | 2:23 PM | 9:37 PM | | + + + +---+ + + + +---+ | | | | | + + + +---+ | Full Code | 04/24/2018 | 04/24/2018 | | | | 2:01 PM | 2:23 PM | | + + + +---+ + + + +---+ | | | | | + + + +---+ | Full Code | 03/23/2018 | 04/01/2018 | | | | 1:58 PM | 10:06 PM | | + + + +---+ + + + +---+ | | | | | + + + +---+ | Full Code | 03/12/2018 | 03/16/2018 | | | | 6:51 PM | 12:00 AM | | + + + +---+
--- OUTSIDE RECORDS SUMMARY | ~2019-01-30 | XMS | Encounter Summary ---
Demographics + + + | Address | [address] | | | [place] [address] | + + + | Home Phone | | + + + | Preferred Language | Unknown | + + + | Marital Status | Single | + + + | Taoism Affiliation | CAT | + + + [...] Team Providers + +------+ + | Care Director Of Bands Name | Role | Phone | + +------+ + | Santo Gooden MD | PCP | | + +------+ + Encounter Details +--------+ + + + + | Date | Type | Department | Care Team | Description | +--------+ + + + + | 04/01/ | Pharmacy | Outpatient Retail | | | | 2017 | Visit | [facility] | | | | | | [address] | | | | | | [facility] | | | | | | [place], [place] | | | | | | [address] | | | +--------+ + + + [...] [address] | | | | | | [place] | | | | | | [address] | | | | | | [phone] | | | | | | | | +--------+ + + + + | 03/25/ | Office | Orthopedics | Lynda Basurto, | | | 2018 | Visit | | [address] | | | | | | [address] | | | | | | [place] | | | | | | [address] | | | | | | [phone] | | | | | | | | +--------+ + + + + | 03/25/ | Office | Hematology & | Sandra Patel MD | | | 2018 | Visit | Oncology | [address] | | | | | | [place] | | | | | | [address] | | | | | | [phone] | | | | | | | | +--------+ + + + + documented as of this encounter Visit Diagnoses Not on filedocumented in this encounter"
--- OUTSIDE RECORDS SUMMARY | ~2019-01-30 | XMS | Encounter Summary ---
Demographics + + + | Address | [address] | | | [place] [address] | + + + | Home Phone | | + + + | Preferred Language | Unknown | + + + | Marital Status | Single | + + + | Protestant Affiliation | CAT | + + + [...] Team Providers + +------+ + | Care Servomechanism Assembler Name | Role | Phone | + +------+ + | Santo Gooedn MD | PCP | | + +------+ + Reason for Visit + + + | Reason | Comments | + + + | Follow-up visit | | + + + AUTH/CERT +--------+--------+ [...] Description | +--------+---------+ + + + | 04/09/ | Office | Orthopaedics & | Angely Stephen, | Osteomyelitis of | | 2018 | Visit | Rehabilitation at | MD [address] [facility] | left leg (HCC) | | | | [facility] 12th Floor [address] | (Primary Dx); Hx of | | | | [address] | [place], [place] | BKA left ([facility]); E | | | | [place] [facility] | [address] | coli infection; Long | | | | and Healing, | [phone] | term (current) use | | | | Floor [place], [place] | | of antibiotics | | | | [address] | | | | | | [phone] | | | +--------+---------+ + + + [...] documented as of this encounter Progress Notes Angely Stephen MD - 04/09/2018 3:00 PM PDTFormatting of this note might be different fro m the original. 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 Course was complicated by L BKA stump infection wi th drainage, redness, and streaking proximally. She was taken for I&D on 03/24/18. Cultures were polymicrobial growing E. Coli (5/5), Prevotella bivia (5/5), E. Faecalis in (2/5) and CoNS in (1/5). Subsequently taken to [place] on 03/27/18 for I&D and revision of L BKA site with removal of about 1 cm of bone for wound closure. 4/5 of the cultures grew E. Coli alone. Pa remedios concerning for acute osteomyelitis. Pt was placed on zosyn with plan for 6 week course o f therapy through 05/08/18. She presents for multi-D follow up with onc, ortho, ID. She state s she does not like being connected to a pump all day for antibiotics. She also was having diarrhea with the zosyn initially though that seems to be improving in frequency and the con sistency is no longer watery. She denies abd pain or cramping. Sutures were removed today. She thinks there was some drainage from the L side of the incision. She denies issues wit h her port. Denies f/c. She is planning to go back to work. ROS: as per HPI Past Medical History: Diagnosis Date Endometriosis History of ITP Synovial sarcoma (HCC) Vitals: see clinic vitals - Pt seen with Dr. Basurto Gen: in NAD, A&Ox3 HEENT: anicteric sclera, Ext: L BKA stump with sutures, removed by Dr. Basurto, incision looks good, no erythema no in creased warmth, small area of slough as lateral aspect of incision, but no drainage or purul ence Skin: no rashes noted, warm/dry Procedures performed: 03/24/18: I&D of left below-knee amputation amputation site, wound vac application 03/27/18: I&D and revision of left below-knee amputation site, wound measuring 20 cm in length Labs: Micro: 03/27 cultures: E. Coli x 4/5 cultures. 03/24: E. Coli (5/5), prevotella bivia (5/5), enterococcus faecalis (2/5), CoNS (1/5) E. Col i R to ampicillin and bactrim only. Cultures were collected from both wound and bone on both occasions. Blood culture 03/23: NGx2 03/24/18 Path: Final Pathologic Diagnosis A. Soft tissue, left below knee amputation site, debridement: - Fibroadipose tissue with fat necrosis and acute and chronic inflammation B. Leg, distal tibia, excision: - Viable bone with reactive changes - Marrow with mildly increased neutrophils, see note Note (part B): The marrow shows patchy mildly increased neutrophils and the bone shows yuniel ctive changes. The findings may be suggestive of acute osteomyelitis. Imp/Plan: 1. L BKA stump osteomyelitis which is polymicrobial with cultures growing predominantly E. Coli and Prevotella, also grew E. Faecalis in 2/5 cultures and CoNS 1/5 s/p I&D x [address] on 03/27/18 2. 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 Pt does not seem to be tolerating the zosyn by continuous infusion both b/c of diarrhea (though somewhat better) and b/c of continuous inf usion no conducive to her lifestyle. The Enterococcus grew in only 2/5 cultures from the fi rst I&D and I do no think it is contributing significantly to the infection. The E. Coli wa s the predominant organism as well as prevotella. Will plan to d/c zosyn, which will mean n o more coverage for Enterococcus, and start cefazolin 2 g IV q8 hours push via her port. Wi ll also give metronidazole 500 mg po q8 hours to cover for Prevotella. Given pt will start chemo in 2 weeks and will get 3 additional cycles, after discussion with Dr. Basurto and Dr. Ricci figueroa, reasonable to extend antibiotics for an additional week with new end date of 05/15. P t agreeable to plan. I have called [facility] and they will be able to deliver medication t o patients home by Saturday. 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 Course was complicated by L BKA stump infection with drainage, redness, and streaking proximally. She was taken for I&D on 03/24/18. Cultures were polymicrobial growing E. Coli (5/5), Prevotell a bivia (5/5), E. Faecalis in (2/5) and CoNS in (1/5). Subsequently taken to [place] on 03/27/18 for I&D and revision of L BKA site with removal of about 1 cm of bone for wound closure. 4/5 of the cultures grew E. Coli alone. Path concerning for acute osteomyelitis. Pt was place d on zosyn with plan for 6 week course of therapy through 05/08/18. Change eot 05/15 Procedures performed: 03/24/18: I&D of left below-knee amputation amputation site, wound vac application 03/27/18: I&D and revision of left below-knee amputation site, wound measuring 20 cm in length Labs: Micro: 03/27 cultures: E. Coli x 4/5 cultures. 03/24: E. Coli (5/5), prevotella bivia (5/5), enterococcus faecalis (2/5), CoNS (1/5) E. Col i R to ampicillin and bactrim only. Cultures were collected from both wound and bone on both occasions. Blood culture 03/23: NGx2 03/24/18 Path: Final Pathologic Diagnosis A. Soft tissue, left below knee amputation site, debridement: - Fibroadipose tissue with fat necrosis and acute and chronic inflammation B. Leg, distal tibia, excision: - Viable bone with reactive changes - Marrow with mildly increased neutrophils, see note Note (part B): The marrow shows patchy mildly increased neutrophils and the bone shows yuniel ctive changes. The findings may be suggestive of acute osteomyelitis. documented in this en counter Plan of Treatment +--------+ + + + + | Date | Type | Specialty | Care Team | Description | +--------+ + + + + | 03/25/ | Appointment | Radiology | Sandra Patel MD | | | 2018 | | | [address] | | | | | | [place], [place] | | | | | | [address] | | | | | | [phone] | | | | | | | | +--------+ + + + + | 03/25/ | Office | Orthopedics | Lynda Basurto, | | | 2018 | Visit | | [address] | | | | | | [address] | | | | | | [place], [place] | | | | | | [address] | | | | | | [phone] | | | | | | | | +--------+ + + + + | 03/25/ | Office | Hematology & | Sandra Patel MD | | | 2019 | Visit | Oncology | [address] | | | | | | [place], [place] | | | | | | [address] | | | | | | [phone] | | | | | | | | +--------+ + + + + documented as of this encounter Visit Diagnoses + + | Diagnosis | + + | Osteomyelitis of left leg (HCC) - Primary Unspecified osteomyelitis, site unspecified | + + | Hx of BKA, left (HCC) | + + | E coli infection Other and unspecified Escherichia coli (E. coli) | + + | longterm (current) use of antibiotics | + + documented in this encounter"
--- OUTSIDE RECORDS SUMMARY | ~2019-01-30 | XMS | Encounter Summary ---
Demographics + + + | Address | [address] | | | [place] [address] | + + + | Home Phone [...] Author + + + | Author | [facility] | + + + | Organization | [facility] | + + + | Address | Unknown | + + + | Phone | Unavailable | + + + Support + + +---------+ + | Name | Relationship | Address | Phone | + + +---------+ + | Kika Cage | ECON | Unknown | | + + +---------+ + Care Team Providers + +------+ + | Care Child Monitor Name | Role | Phone | + [...] | 02/05/ | Lab | Laboratory at [facility] | | Synovial sarcoma | | 2018 | | [address] | | ([facility]) | | | | [place], [place] | | | | | | [address] | | | | | | [phone] | | | +--------+------+ + + + [...] | | | 2018 | | | [address] | | | | | | [place], [place] | | | | | | [address] | | | | | | [phone] | | | | | | | | +--------+ + + + + | 03/25/ | Office | Orthopedics | Lynda Basurto, | | | 2018 | Visit | [facility] [address] | | | | | | [address] | | | | | | [place], [place] | | | | | | [address] | | | | | | [phone] | | | | | | | | +--------+ + + + + | 03/25/ | Office | Hematology & | Sandra Patel MD | | | 2019 | Visit | Oncology | [address] | | | | | | [place], [place] | | | | | | [address] | | | | | | [phone] | | | | | | | | +--------+ + + + + documented as of this encounter Procedures + +--------+ + + + | Procedure Name | Priori | Date/Time | Associated Diagnosis | Comments | | | ty | | | | + +--------+ + + + | CBC AND AUTO DIFF | Routin | 02/05/2018 | Synovial sarcoma | Results for this | | | e | 4:03 PM | (HCC) | procedure are in the | | | | PDT | | results section. | + +--------+ + + + | CBC, WITH | Routin | 02/05/2018 | Synovial sarcoma | Results for this | | DIFFERENTIAL | e | 4:03 PM | (HCC) | procedure are in the | | | | PDT | | results section. | + +--------+ + + + | BASIC METABOLIC SET | Routin | 02/05/2018 | Synovial sarcoma | Results for this | | (NA, K, CL, TCO2, | e | 4:03 PM | (HCC) | procedure are in the | | BUN, CR, GLU, CA) | | PDT | | results section. | + +--------+ + + + | ANTIBODY SCREEN | Routin | 02/05/2018 | Synovial sarcoma | Results for this | | | e | 4:03 PM | (HCC) | procedure are in the | | | | PDT | | results section. | + +--------+ + + + | TYPE AND SCREEN | Routin | 02/05/2018 | Synovial sarcoma | Results for this | | | e | 4:03 PM | (HCC) | procedure are in the | | | | PDT | | results section. | + +--------+ + + + | ABO & RH TYPE | Routin | 02/05/2018 | Synovial sarcoma | Results for this | | | e | 4:03 PM | (HCC) | procedure are in the | | | | PDT | | results section. | + +--------+ + + + documented in this encounter Results ANTIBODY SCREEN (02/05/2018 4:03 PM PDT) + + + + + [...] [facility] | [address] | [place] [address] | | | SERVICES, | [address] | | | | TRANSFUSION MEDICINE | | | | + + + + + ABO & RH TYPE (02/05/2018 4:03 PM PDT) + + + + + [...] [facility] | [address] | [place] [address] | | | SERVICES, | [address] | | | | TRANSFUSION MEDICINE | | | | + + + + + CBC AND AUTO DIFF (02/05/2018 4:03 PM PDT) + + + + + + | Component | Value | Ref Range | Performed | Pathologist | | | | | At | Signature | + + + + + + | WHITE CELL | 11.16 (H) | 3.50 - 10.80 | [facility] | | | COUNT | | K/cu mm | LABORATORY | | | | | | SERVICES, | | | | | | CORE | | + + + + + + | RED CELL | 4.90 | 4.00 - 5.20 | [facility] | | | COUNT | | M/cu mm | LABORATORY | | | | | | SERVICES, | | | | | | CORE | | + + + + + + | HEMOGLOBIN | 14.6 | 12.0 - 16.0 | [facility] | | | | | g/dL | LABORATORY | | | | | | SERVICES, | | | | | | CORE | | + + + + + + | HEMATOCRIT | 43.0 | 36.0 - 46.0 % | [facility] | | | | | | LABORATORY | | | | | | SERVICES, | | | | | | CORE | | + + + + + + | MCV | 87.8 | 80.0 - 100.0 fL | [facility] | | | | | | LABORATORY | | | | | | SERVICES, | | | | | | CORE | | + + + + + + | MCHC | 34.0 | 32.0 - 36.0 | [facility] | | | | | g/dL | LABORATORY | | | | | | SERVICES, | | | | | | CORE | | + + + + + + | RDW SD | 39.1 | 35.1 - 46.3 fL | [facility] | | | | | | LABORATORY | | | | | | SERVICES, | | | | | | CORE | | + + + + + + | PLATELET | 392 | 150 - 400 K/cu | [facility] [...] + + + + | NEUTROPHIL | 49.1 (L) | 50.0 - 70.0 % | [facility] | | | % | | | LABORATORY | | | | | | SERVICES, | | | | | | CORE | | + + + + + + | LYMPHOCYTE | 34.4 | 18.0 - 42.0 % | [facility] [...] 2.7 | 1.0 - 3.0 % | [facility] | | | | | | LABORATORY | | | | | | SERVICES, | | | | | | CORE | | + + + + + + | BASO % | 1.2 | 0.0 - 2.0 % | [facility] | | | | | | LABORATORY | | | | | | SERVICES, | | | | | | CORE | | + + + + + + | IG% | 0.3Comment: Increased | 0.0 - 1.0 % | [facility] | | | | immature granulocytes | | LABORATORY | | | | (IG) define a left | | SERVICES, | | | | shift. Immature | | CORE | | | | granulocytes (IG) are an | | | | | | automated count of | | | | [...] + + + + | NEUTROPHIL | 5.49 | 1.80 - 7.70 | [facility] | | | # | | K/cu mm | LABORATORY | | | | | | SERVICES, | | | | | | CORE | | + + + + + + | LYMPHOCYTE | 3.84 | 1.00 - 4.80 | [facility] | [...] # | 0.30 | 0.00 - 0.50 | [facility] | [...] IG# | 0.03 | 0.00 - 0.10 | [...] Performed At | + + + | Increased immature granulocytes (IG) define a left shift. | [facility] | | Immature granulocytes (IG) are an automated count of metamyelocytes, | LABORATORY | | myelocytes and promyelocytes. Bands are not included in the IG count. | SERVICES, CORE | | Bands are included in the neutrophil count. | | + + + + + + + + | Performing | Address | City/State/Zipcode | Phone Number | | Organization | | | | + + + + + | [facility] | [address] | [place] [address] | | | SERVICES, CORE | [address] | | | + + + + + BASIC METABOLIC SET (NA, K, CL, TCO2, BUN, CR, GLU, CA) (02/05/2018 4:03 PM PDT) + +---------+ + + + | Component | Value | Ref Range | Performed | Pathologist | | | | | At | Signature | + +---------+ + + + | GLUCOSE, | 74 | 70 - 99 mg/dL | [facility] [...] +---------+ + + + | CREATININE | 0.81 | 0.60 - 1.10 | [facility] | | | PLASMA | | mg/dL | LABORATORY | | | (LAB) | | | SERVICES, | | | | | | CORE | | + +---------+ + + + | EGFR | >60 | >60 mL/min | [facility] | | | - | | | LABORATORY | | | ITALIAN | | | SERVICES, | | | | | | CORE | | + +---------+ + + + | EGFR NON | >60 | >60 mL/min | [facility] | | | -[place] | | | LABORATORY | | | [place] | | | SERVICES, | | | | | | CORE | | + +---------+ + + + | SODIUM, | 135 (L) | 136 - 145 | [facility] | [...] +---------+ + + + | CHLORIDE, | 100 | 97 - 108 mmol/L | [facility] [...] +---------+ + + + | CALCIUM, | 9.1 | 8.6 - 10.2 | [facility] | [...] + + + + + | [facility] | [address] | [place] [address] | | | SERVICES, CORE | [address] | | | + + + + + documented in this encounter Visit Diagnoses + + | Diagnosis | + + | 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
--- OUTSIDE RECORDS SUMMARY | ~2019-01-30 | XMS | Encounter Summary ---
Demographics + + + | Address | [address] | | | [place] [address] | + + + | Home Phone | | + + + | Preferred Language | Unknown | + + + | Marital Status | Single | + + + | Anabaptist Affiliation | CAT | + + + | Race | Unknown | + + + | Ethnic Group | Not or | + + + Author + + + | Author | [facility] | + + + | Organization | [facility] | + + + | Address | Unknown | + + + | Phone | Unavailable | + + + Support + + +---------+ + | Name | Relationship | Address | Phone | + + +---------+ + | Kika Cage | ECON | Unknown | | + + +---------+ + Care Team Providers + +------+ + | Care Bead Inspector Name | Role | Phone | + +------+ + | Santo Gooden MD | PCP | | + +------+ + Encounter Details +--------+ + + + + | Date | Type | Department | Care Team | Description | +--------+ + + + + | 01/16/ | MyChart | [facility] | Lynda Basurto, | RE: Stump wound | | 2019 | Encounter | & Rehabilitation at | [address] | | | | | [facility] [address] | [address] | | | | | Ave Mailcode: | [place], [place] | | | | | [facility] | [address] | | | | | and Healing, | [phone] | | | | | [address] | | | | | | [place], [place] | | | | | | [address] | | | | | | [phone] | | | +--------+ + + + [...] | | | 2018 | | | [address] | | | | | | [place], [place] | | | | | | [address] | | | | | | [phone] | | | | | | | | +--------+ + + + + | 03/25/ | Office | Orthopedics | Lynda Basurto, | | | 2018 | Visit | | [address] | | | | | | [address] | | | | | | [place], [place] | | | | | | [address] | | | | | | [phone] | | | | | | | | +--------+ + + + + | 03/25/ | Office | Hematology & | Sandra Patel MD | | | 2019 | Visit | Oncology | [address] | | | | | | [place], [place] | | | | | | [address] | | | | | | [phone] | | | | | | | | +--------+ + + + + documented as of this encounter Visit Diagnoses Not on filedocumented in this encounter"
--- OUTSIDE RECORDS SUMMARY | ~2019-01-30 | XMS | Encounter Summary ---
Demographics + + + | Address | [address] | | | [place] [address] | + + + | Home Phone [...] + + + | Author | [facility] | + + + | Organization | [facility] | + + + | Address | Unknown | + + + | Phone | Unavailable | + + + Support + + +---------+ + | Name | Relationship | Address | Phone | + + +---------+ + | Kika Cage | ECON | Unknown | | + + +---------+ + Care Team Providers + +------+ + | Care Patrol Mother Name | Role | Phone | + [...] | 2018 | Visit | Oncology at [facility] | [address] | (HCC) (Primary Dx) | | | | for Health & Healing | [place], [place] | | | | | [address] | [address] | | | | | Mailcode: [facility] | [phone] | | | | | [facility] | | | | | | and Healing, | | | | | | [place], [place] | | | | | | [address] | | | | | | [phone] | | | +--------+---------+ + + + [...] Pressure | 140/81 | 02/19/2018 2:37 PM | | | | | PDT | | + + + + + | Pulse | 72 | 02/19/2018 2:37 PM | | | | | PDT | | + + + + + | Temperature | 36.7 C (98 F) | 02/19/2018 2:37 PM | | | | | PDT | | + + + + + | Respiratory Rate | 16 | 02/19/2018 2:37 PM | | | | | PDT | | + + + + + | Oxygen Saturation | 98% | 02/19/2018 2:37 PM | | | | | PDT | | + + + + + | Inhaled Oxygen | - | - | | | Concentration | | | | + + + + + | Weight | 137.9 kg (304 lb 1.6 | 02/19/2018 2:37 PM | | | | oz) | PDT | | + + + + + | Height | - | - | | + + + + + | Body Mass Index | 46.24 | 02/06/2018 10:00 AM | | | | | PDT [...] documented as of this encounter Progress Notes Sandra Patel MD - 02/19/2018 3:10 PM PDT Display Progress Note in MyChart: Yes [facility] - ESTABLISHED PATIENT - RETURN VISIT Date: 02/19/2018 Name: Tati Cage : 1985 Home Town: [place], [place] Referring Physician: Sb Diagnosis: high risk [...] perfused. No edema. Neurologic - Awake, alert. household worker grossly intact. Affect/Psych - Appropriate. ECOG - [...] but benefit of chemotherapy outweighs risk. Wesley l monitor. Sandra Patel MD [employer] Medical Oncology & Pediatric Hematology/Oncology [facility] [place] Multidisciplinary Sarcoma Program documented in this enco unter Plan of Treatment +--------+ + + + + | Date | Type | Specialty | Care Team | Description | +--------+ + + + + | 03/25/ | Appointment | Radiology | Sandra Patel MD | | | 2018 | | | [address] | | | | | | [place], [place] | | | | | | [address] | | | | | | [phone] | | | | | | | | +--------+ + + + + | 03/25/ | Office | Orthopedics | Lynda Basurto, | | | 2018 | Visit | | [address] | | | | | | [address] | | | | | | [place], [place] | | | | | | [address] | | | | | | [phone] | | | | | | | | +--------+ + + + + | 03/25/ | Office | Hematology & | Sandra Patel MD | | | 2018 | Visit | Oncology | [address] | | | | | | [place], [place] | | | | | | [address] | | | | | | [phone] | | | | | | | | +--------+ + + + + documented as of this encounter Visit Diagnoses + + | Diagnosis | + + | 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
--- OUTSIDE RECORDS SUMMARY | ~2019-01-30 | XMS | Encounter Summary ---
Demographics + + + | Address | [address] | | | [place] [address] | + + + | Home Phone | | + + + | Preferred Language | Unknown | + + + | Marital Status | Single | + + + | Sikhism Affiliation | CAT | + + + | Race | Unknown | + + + | Ethnic Group | Not or | + + + Author + + + | Author | [facility] | + + + | Organization | [facility] | + + + | Address | Unknown | + + + | Phone | Unavailable | + + + Support + + +---------+ + | Name | Relationship | Address | Phone | + + +---------+ + | Kika Cage | ECON | Unknown | | + + +---------+ + Care Team Providers + +------+ + | Care Manager Metrology Name | Role | Phone | + +------+ + | Santo Gooden MD | PCP | | + +------+ + Encounter Details +--------+ + + + + | Date | Type | Department | Care Team | Description | +--------+ + + + + | 04/25/ | Pharmacy | Outpatient Retail | | | | 2017 | Visit | [facility] | | | | | | [address] | | | | | | [facility] | | | | | | [place], [place] | | | | | | [address] | | | +--------+ + + + [...] [address] | | | | | | [place] | | | | | | [address] | | | | | | [phone] | | | | | | | | +--------+ + + + + | 03/25/ | Office | Orthopedics | Lynda Basurto, | | | 2018 | Visit | | [address] | | | | | | [address] | | | | | | [place] | | | | | | [address] | | | | | | [phone] | | | | | | | | +--------+ + + + + | 03/25/ | Office | Hematology & | Sanrda Patel MD | | | 2018 | Visit | Oncology | [address] | | | | | | [place] | | | | | | [address] | | | | | | [phone] | | | | | | | | +--------+ + + + + documented as of this encounter Visit Diagnoses Not on filedocumented in this encounter"
--- OUTSIDE RECORDS SUMMARY | ~2019-01-30 | XMS | Encounter Summary ---
Demographics + + + | Address | [address] | | | [place] [address] | + + + | Home Phone | | + + + | Preferred Language | Unknown | + + + | Marital Status | Single | + + + | Quaker Affiliation | CAT | + + + | Race | Unknown | + + + | Ethnic Group | Not or | + + + Author + + + | Author | [facility] | + + + | Organization | [facility] | + + + | Address | Unknown | + + + | Phone | Unavailable | + + + Support + + +---------+ + | Name | Relationship | Address | Phone | + + +---------+ + | Kika Cage | ECON | Unknown | | + + +---------+ + Care Team Providers + +------+ + | Care Pants Closer Name | Role | Phone | + [...] | | 2017 | | Oncology at [facility] | | | | | | for Health & Healing | | | | | | [address] | | | | | | Mailcode: [facility] | | | | | | for Health and | | | | | | [facility] [address] | | | | | | [place], [place] | | | | | | [address] | | | | | | [phone] | | | +--------+ + + + [...] [address] | | | | | | [place], [place] | | | | | | [address] | | | | | | [phone] | | | | | | | | +--------+ + + + + | 03/25/ | Office | Orthopedics | Paul Basurtoen, | | | 2018 | Visit | | [address] | | | | | | [address] | | | | | | [place], [place] | | | | | | [address] | | | | | | [phone] | | | | | | | | +--------+ + + + + | 03/25/ | Office | Hematology & | Sandra Patel MD | | | 2018 | Visit | Oncology | [address] | | | | | | [place], [place] | | | | | | [address] | | | | | | [phone] | | | | | | | | +--------+ + + + + documented as of this encounter Visit Diagnoses Not on filedocumented in this encounter"
--- OUTSIDE RECORDS SUMMARY | ~2019-01-30 | XMS | Encounter Summary ---
Demographics + + + | Address | [address] | | | [place] [address] | + + + | Home Phone | | + + + | Preferred Language | Unknown | + + + | Marital Status | Single | + + + | Hoahaoism Affiliation | CAT | + + + | Race | Unknown | + + + | Ethnic Group | Not or | + + + Author + + + | Author | [facility] | + + + | Organization | [facility] | + + + | Address | Unknown | + + + | Phone | Unavailable | + + + Support + + +---------+ + | Name | Relationship | Address | Phone | + + +---------+ + | Kika Cage | ECON | Unknown | | + + +---------+ + Care Team Providers + +------+ + | Care Motor Home Electrical Foreman Name | Role | Phone | + +------+ + | Santo Gooden MD | PCP | | + +------+ + Encounter Details +--------+ + + + + | Date | Type | Department | Care Team | Description | +--------+ + + + + | 01/30/ | MyChart | Orthopaedics at | Lynda Basurto, | RE: Pathology Report | | 2018 | Encounter | [facility] [address] | [address] | | | | | [address] Mailcode: [facility] | [address] | | | | | [facility] | [place], [place] | | | | | and | [address] | | | | | Floor [place], [place] | [phone] | | | | | [address] | | | | | | [phone] | | | +--------+ + + + [...] | | | 2018 | | | [address] | | | | | | [place], [place] | | | | | | [address] | | | | | | [phone] | | | | | | | | +--------+ + + + + | 03/25/ | Office | Orthopedics | Lynda Basurto, | | | 2018 | Visit | | [address] | | | | | | [address] | | | | | | [place], [place] | | | | | | [address] | | | | | | [phone] | | | | | | | | +--------+ + + + + | 03/25/ | Office | Hematology & | Sandra Patel MD | | | 2019 | Visit | Oncology | [address] | | | | | | [place] | | | | | | [address] | | | | | | [phone] | | | | | | | | +--------+ + + + + documented as of this encounter Visit Diagnoses Not on filedocumented in this encounter"
--- OUTSIDE RECORDS SUMMARY | ~2019-01-30 | XMS | Encounter Summary ---
Demographics + + + | Address | [address] | | | [place] [address] | + + + | Home Phone | | + + + | Preferred Language | Unknown | + + + | Marital Status | Single | + + + | Rastafari Affiliation | CAT | + + + | Race | Unknown | + + + | Ethnic Group | Not or | + + + Author + + + | Author | [facility] | + + + | Organization | [facility] | + + + | Address | Unknown | + + + | Phone | Unavailable | + + + Support + + +---------+ + | Name | Relationship | Address | Phone | + + +---------+ + | Kika Cage | ECON | Unknown | | + + +---------+ + Care Team Providers + +------+ + | Care Correction Officer Supervisor Name | Role | Phone | + +------+ + | Santo Gooden MD | PCP | | + +------+ + Reason for Visit + + + | Reason | Comments | + + + | Post-discharge | CHEMOTHERAPY Epi/Ifos C3 | | follow-up | | + + + | Care Coordination | [facility] | + + + Encounter Details +--------+ + + + + | Date | Type | Department | Care Team | Description | +--------+ + + + + | 04/16/ | Telephone | Hematology/Medical | Sandra Patel MD | Post-discharge | | 2018 | | Oncology at [place] | [address] | follow-up | | | | for Health & Healing | [place], [place] | (CHEMOTHERAPY | | | | [address] | [address] | Epi/Ifos C3); Care | | | | Mailcode: [place] | [phone] | Coordination | | | | for Health and | | ([facility]) | | | | Healing, [address] | | | | | | [place], [place] | | | | | | [address] | | | | | | [phone] | | | +--------+ + + + [...] [place] | | | | | | [address] | | | | | | [phone] | | | | | | | | +--------+ + + + + | 03/25/ | Office | Orthopedics | Lynda Basurto, | | | 2018 | Visit | | [address] | | | | | | [address] | | | | | | [place], [place] | | | | | | [address] | | | | | | [phone] | | | | | | | | +--------+ + + + + | 03/25/ | Office | Hematology & | Sandra Patel MD | | | 2018 | Visit | Oncology | [address] | | | | | | [place], [place] | | | | | | [address] | | | | | | [phone] | | | | | | | | +--------+ + + + + documented as of this encounter Visit Diagnoses + + | Diagnosis | + + | Thrombocytopenia (HCC) - Primary Thrombocytopenia, unspecified | + + | 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
--- OUTSIDE RECORDS SUMMARY | ~2019-01-30 | XMS | Encounter Summary ---
Demographics + + + | Address | [address] | | | [place] [address] | + + + | Home Phone [...] Team Providers + +------+ + | Care Ecologist Technician Name | Role | Phone | + +------+ + | Santo Gooden MD | PCP | | + +------+ + Encounter Details +--------+ + + + + | Date | Type | Department | Care Team | Description | +--------+ + + + + | 02/26/ | Telephone | Hematology/Medical | Ann Davis, | | | 2017 | | [facility]cology at [place] | PharmD [address] | | | | | for Health & Healing | [address] | | | | | [address] | [place], [place] | | | | | Mailcode: [place] | [address] | | | | | for Health and | | | | | | Healing, [address] | | | | | | [place], [place] | | | | | | [address] | | | | | | [phone] | | | +--------+ + + + [...] [address] | | | | | | [place], [place] | | | | | | [address] | | | | | | [phone] | | | | | | | | +--------+ + + + + | 03/25/ | Office | Orthopedics | Lynda Basurto, | | | 2018 | Visit | | [address] | | | | | | [address] | | | | | | [place], [place] | | | | | | [address] | | | | | | [phone] | | | | | | | | +--------+ + + + + | 03/25/ | Office | Hematology & | Sandra Patel MD | | | 2019 | Visit | Oncology | [address] | | | | | | [place] | | | | | | [address] | | | | | | [phone] | | | | | | | | +--------+ + + + + documented as of this encounter Visit Diagnoses Not on filedocumented in this encounter"
--- OUTSIDE RECORDS SUMMARY | ~2019-01-30 | XMS | Encounter Summary ---
Demographics + + + | Address | [address] | | | [place] [address] | + + + | Home Phone [...] Author | [facility] | + + + | Organization | [facility] | + + + | Address | Unknown | + + + | Phone | Unavailable | + + + Support + + +---------+ + | Name | Relationship | Address | Phone | + + +---------+ + | Kika Cage | ECON | Unknown | | + + +---------+ + Care Team Providers + +------+ + | Care Retail Shift Manager Name | Role | Phone | + +------+ + | Santo Gooden MD | PCP | | + +------+ + Reason for Visit + + + | Reason | Comments | + + + | Care Coordination | | + + + Encounter Details +--------+ + + + + | Date | Type | Department | Care Team | Description | +--------+ + + + + | 02/05/ | Telephone | Hematology/Medical | Sandra Patel MD | Care Coordination | | 2018 | | Oncology at [place] | [address] | | | | | for Health & Healing | [place], [place] | | | | | [address] | [address] | | | | | Mailcode: [place] | [phone] | | | | | for Health and | | | | | | [address] | | | | | | [place], [place] | | | | | | [address] | | | | | | [phone] | | | +--------+ + + + [...] | | | 2018 | | | [address] | | | | | | [place], [place] | | | | | | [address] | | | | | | [phone] | | | | | | | | +--------+ + + + + | 03/25/ | Office | Orthopedics | Lynda Basurto, | | | 2019 | Visit | | [address] | | | | | | [address] | | | | | | [place], [place] | | | | | | [address] | | | | | | [phone] | | | | | | | | +--------+ + + + + | 03/25/ | Office | Hematology & | Sandra Patel MD | | | 2019 | Visit | Oncology | [address] | | | | | | [place], [place] | | | | | | [address] | | | | | | [phone] | | | | | | | | +--------+ + + + + documented as of this encounter Visit Diagnoses Not on filedocumented in this encounter"
--- OUTSIDE RECORDS SUMMARY | ~2019-01-30 | XMS | Encounter Summary ---
Demographics + + + | Address | [address] | | | [place] [address] | + + + | Home Phone | | + + + | Preferred Language | Unknown | + + + | Marital Status | Single | + + + | Sikh Affiliation | CAT | + + + | Race | Unknown | + + + | Ethnic Group | Not or | + + + Author + + + | Author | [facility] | + + + | Organization | [facility] | + + + | Address | Unknown | + + + | Phone | Unavailable | + + + Support + + +---------+ + | Name | Relationship | Address | Phone | + + +---------+ + | Kika Cage | ECON | Unknown | | + + +---------+ + Care Team Providers + +------+ + | Care Cell Phone Repair Technician Name | Role | Phone | [...] | 2018 | on | Oncology at [place] | | | | | | for Health & Healing | | | | | | [address] | | | | | | Mailcode: [place] | | | | | | [facility] and | | | | | | [facility] 2 | | | | | | [place], [place] | | | | | | [address] | | | | | | [phone] | | | +--------+ + + + [...] [place] | | | | | | | | | | | | [address] | | | | | | [phone] | | | | | | | | +--------+ + + + + | 03/25/ | Office | Orthopedics | Rosy BasurtoRegiotto, | | | 2018 | Visit | | [address] | | | | | | [address] | | | | | | [facility] [place] | | | | | | [address] | | | | | | [phone] | | | | | | | | +--------+ + + + + | 03/25/ | Office | Hematology & | Sandra Patel MD | | | 2018 | Visit | Oncology | [address] | | | | | | [place], [place] | | | | | | [address] | | | | | | [phone] | | | | | | | | +--------+ + + + + documented as of this encounter Visit Diagnoses Not on filedocumented in this encounter"
--- OUTSIDE RECORDS SUMMARY | ~2019-01-30 | XMS | Encounter Summary ---
Demographics + + + | Address | [address] | | | [place] [address] | + + + | Home Phone | | + + + | Preferred Language | Unknown | + + + | Marital Status | Single | + + + | Zoroastrianism Affiliation | CAT | + + + [...] Team Providers + +------+ + | Care Tongue And Groove Machine Feeder Name | Role | Phone | + [...] | | | | | sarcoma | [address] | | | | | | ([facility]) | Ave | | | | | | Procedures | [place], [place] | | | | | | TRANSTHORACI | [address] | | | | | | C | Phone: | | | | | | ECHOCARDIOGR | [phone] | | | | | | AM, ADULT | Fax: | | | | | | | [phone] | | + +--------+ + + + + Encounter Details +--------+ + + + + | Date | Type | Department | Care Team | Description | +--------+ + + + + | 01/31/ | 911 Telecommunicator | Hematology/Medical | Sandra Patel MD | 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[place] | [address] | (HCC) (Primary Dx) | | | | for Health & Healing | [place], [place] | | | | | [address] | [address] | | | | | Mailcode: [place] | [phone] | | | | | for Health and | | | | | | Healing, [address] | | | | | | [place], [place] | | | | | | [address] | | | | | | [phone] | | | +--------+ + + + [...] Scott | | | | | | [place], [place] | | | | | | [address] | | | | | | [phone] | | | | | | | | +--------+ + + + + | 03/25/ | Office | Orthopedics | Lynda Basurto, | | | 2018 | Visit | | [address] | | | | | | [address] | | | | | | [place], [place] | | | | | | [address] | | | | | | [phone] | | | | | | | | +--------+ + + + + | 03/25/ | Office | Hematology & | Sandra Patel MD | | | 2018 | Visit | Oncology | [address] | | | | | | [place], [place] | | | | | | [address] | | | | | | [phone] | | | | | | | | +--------+ + + + + + +------+--------+ + + | Name | Type | Priori | Associated Diagnoses | Order Schedule | | | | ty | | | + +------+--------+ + + | TRANSTHORACIC | ECG | Routin | Synovial sarcoma | Ordered: 01/31/2018 | | ECHOCARDIOGRAM, | | e | (HCC) | | | ADULT | | | | | + +------+--------+ + + documented as of this encounter Visit Diagnoses + + | Diagnosis | + + | 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
--- OUTSIDE RECORDS SUMMARY | ~2019-01-30 | XMS | Encounter Summary ---
Demographics + + + | Address | [address] | | | [place] [address] | + + + | Home Phone | | + + + | Preferred Language | Unknown | + + + | Marital Status | Single | + + + | Hinduism Affiliation | CAT | + + + | Race | Unknown | + + + | Ethnic Group | Not or | + + + Author + + + | Author | [facility] | + + + | Organization | [facility] | + + + | Address | Unknown | + + + | Phone | Unavailable | + + + Support + + +---------+ + | Name | Relationship | Address | Phone | + + +---------+ + | Kika Cage | ECON | Unknown | | + + +---------+ + Care Team Providers + +------+ + | Care Hobbing Machine Operator Name | Role | Phone | [...] Incision AND | | 2018 | | [facility] [address] | [address] [facility] | drainage | | | | Ave Mailcode: CH12A | [address] | | | | | [facility] | [place], [place] | | | | | and | [address] | | | | | Floor [place], [place] | [phone] | | | | | [address] | | | | | | [phone] | | | +--------+ + + + [...] Scott | | | | | | [place], [place] | | | | | | [address] | | | | | | [phone] | | | | | | | | +--------+ + + + + | 03/25/ | Office | Orthopedics | Rosy BasurtoAlexander, | | | 2018 | Visit | | [address] | | | | | | [address] | | | | | | [place], [place] | | | | | | [address] | | | | | | [phone] | | | | | | | | +--------+ + + + + | 03/25/ | Office | Hematology & | Sandra Patel MD | | | 2018 | Visit | Oncology | [address] | | | | | | [place], [place] | | | | | | [address] | | | | | | [phone] | | | | | | | | +--------+ + + + + documented as of this encounter Visit Diagnoses Not on filedocumented in this encounter"
--- OUTSIDE RECORDS SUMMARY | ~2019-01-30 | XMS | Encounter Summary ---
Demographics + + + | Address | [address] | | | [place] [address] | + + + | Home Phone | | + + + | Preferred Language | Unknown | + + + | Marital Status | Single | + + + | Sabianism Affiliation | CAT | + + + | Race | Unknown | + + + | Ethnic Group | Not or | + + + Author + + + | Author | [facility] | + + + | Organization | [facility] | + + + | Address | Unknown | + + + | Phone | Unavailable | + + + Support + + +---------+ + | Name | Relationship | Address | Phone | + + +---------+ + | Kika Cage | ECON | Unknown | | + + +---------+ + Care Team Providers + +------+ + | Care Die Barber Name | Role | Phone | + +------+ + | Santo Gooden MD | PCP | | + +------+ + Reason for Visit +---------+ + | Reason | Comments | +---------+ + | Abscess | | +---------+ + Encounter Details +--------+ + + + + | Date | Type | Department | Care Team | Description | +--------+ + + + + | 01/15/ | Telephone | Orthopaedics at | Lynda Basurto, | Abscess | | 2019 | | [facility] [address] | [address] [facility] | | | | | [place] Mailcode: CH12A | [address] | | | | | [place] [facility] | [place], [place] | | | | | and [facility] | [address] | | | | | Floor [place], [place] | [phone] | | | | | [address] | | | | | | [phone] | | | +--------+ + + + [...] | | | 2019 | | | [address] | | | | | | [place], [place] | | | | | | [address] | | | | | | [phone] | | | | | | | | +--------+ + + + + | 03/25/ | Office | Orthopedics | Lynda Basurto, | | | 2019 | Visit | | [address] | | | | | | [address] | | | | | | [place], [place] | | | | | | [address] | | | | | | [phone] | | | | | | | | +--------+ + + + + | 03/25/ | Office | Hematology & | Sandra Patel MD | | | 2018 | Visit | Oncology | [address] | | | | | | [place], [place] | | | | | | [address] | | | | | | [phone] | | | | | | | | +--------+ + + + + documented as of this encounter Visit Diagnoses Not on filedocumented in this encounter"
--- OUTSIDE RECORDS SUMMARY | ~2019-01-30 | XMS | Encounter Summary ---
Demographics + + + | Address | [address] | | | [place] [address] | + + + | Home Phone | | + + + | Preferred Language | Unknown | + + + | Marital Status | Single | + + + | Episcopal Affiliation | CAT | + + + [...] Team Providers + +------+ + | Care Motorcycle Police Name | Role | Phone | + +------+ + | Santo Gooden MD | PCP | | + +------+ + Reason for Visit + + + | Reason | Comments | + + + | Care Coordination | Port Maintenance Orders | + + + Encounter Details +--------+ + + + + | Date | Type | Department | Care Team | Description | +--------+ + + + + | 05/14/ | Telephone | Hematology/Medical | Sandra Patel MD | Care Coordination | | 2018 | | Oncology at Center | [address] | (Port Maintenance | | | | for Health & Healing | [place], [place] | Orders) | | | | [address] | [address] | | | | | Mailcode: Center | [phone] | | | | | for Health and | | | | | | Healing, Building [address] | | | | | | [place], [place] | | | | | | [address] | | | | | | [phone] | | | +--------+ + + + [...] Scott | | | | | | [place], [place] | | | | | | [address] | | | | | | [phone] | | | | | | | | +--------+ + + + + | 03/25/ | Office | Orthopedics | Lynda Basurto, | | | 2018 | Visit | | [address] | | | | | | [address] | | | | | | [place], [place] | | | | | | [address] | | | | | | [phone] | | | | | | | | +--------+ + + + + | 03/25/ | Office | Hematology & | Sandra Patel MD | | | 2018 | Visit | Oncology | [address] | | | | | | [place], [place] | | | | | | [address] | | | | | | [phone] | | | | | | | | +--------+ + + + + documented as of this encounter Visit Diagnoses + + | Diagnosis | + + | History of chemotherapy - Primary Personal history of antineoplastic chemotherapy | + + documented in this encounter"
--- OUTSIDE RECORDS SUMMARY | ~2019-01-30 | XMS | Encounter Summary ---
Demographics + + + | Address | [address] | | | [place] [address] | + + + | Home Phone [...] Team Providers + +------+ + | Care Oil Distributor Tender Name | Role | Phone | + [...] + + + + | 01/30/ | Telephone | Hematology/Medical | Work, Social | Social Work Notes | | 2017 | | Oncology at [place] | | | | | | for Health & Healing | | | | | | [address] | | | | | | Mailcode: [place] | | | | | | for Health and | | | | | | [facility], [facility] 2 | | | | | | [place], [place] | | | | | | [address] | | | | | | [phone] | | | +--------+ + + + [...] Scott | | | | | | [facility] [place] | | | | | | [address] | | | | | | [phone] | | | | | | | | +--------+ + + + + | 03/25/ | Office | Orthopedics | Lynda Basurto, | | | 2018 | Visit | | [address] | | | | | | [address] | | | | | | [place], [place] | | | | | | [address] | | | | | | [phone] | | | | | | | | +--------+ + + + + | 03/25/ | Office | Hematology & | Sandra Patel MD | | | 2019 | Visit | Oncology | [address] | | | | | | [facility] [place] | | | | | | [address] | | | | | | [phone] | | | | | | | | +--------+ + + + + documented as of this encounter Visit Diagnoses Not on filedocumented in this encounter"
--- OUTSIDE RECORDS SUMMARY | ~2019-01-30 | XMS | Encounter Summary ---
Demographics + + + | Address | [address] | | | [place] [address] | + + + | Home Phone | | + + + | Preferred Language | Unknown | + + + | Marital Status | Single | + + + | Jew Affiliation | CAT | + + + | Race | Unknown | + + + | Ethnic Group | Not or | + + + Author + + + | Author | [facility] | + + + | Organization | [facility] | + + + | Address | Unknown | + + + | Phone | Unavailable | + + + Support + + +---------+ + | Name | Relationship | Address | Phone | + + +---------+ + | Kika Cage | ECON | Unknown | | + + +---------+ + Care Team Providers + +------+ + | Care Animal Care Provider Name | Role | Phone | + [...] | +--------+ + + + + | 02/03/ | Telephone | Hematology/Medical | Work, Social | Social Work Notes | | 2018 | | Oncology at [place] | | | | | | for Health & Healing | | | | | | [address] | | | | | | Mailcode: [place] | | | | | | for Health and | | | | | | [facility], [facility] 2 | | | | | | [place], [place] | | | | | | [address] | | | | | | [phone] | | | +--------+ + + + [...] Scott | | | | | | [facility] [place] | | | | | | [address] | | | | | | [phone] | | | | | | | | +--------+ + + + + | 03/25/ | Office | Orthopedics | Lynda Basurto, | | | 2018 | Visit | | [address] | | | | | | [address] | | | | | | [place], [place] | | | | | | [address] | | | | | | [phone] | | | | | | | | +--------+ + + + + | 03/25/ | Office | Hematology & | Sandra Patel MD | | | 2019 | Visit | Oncology | [address] | | | | | | [facility] [place] | | | | | | [address] | | | | | | [phone] | | | | | | | | +--------+ + + + + documented as of this encounter Visit Diagnoses Not on filedocumented in this encounter"
--- OUTSIDE RECORDS SUMMARY | ~2019-01-30 | XMS | Encounter Summary ---
Demographics + + + | Address | [address] | | | [place] [address] | + + + | Home Phone [...] Author + + + | Author | [facility] | + + + | Organization | [facility] | + + + | Address | Unknown | + + + | Phone | Unavailable | + + + Support + + +---------+ + | Name | Relationship | Address | Phone | + + +---------+ + | Kika Cage | ECON | Unknown | | + + +---------+ + Care Team Providers + +------+ + | Care Solar Technician Name | Role | Phone | [...] + + | 12/03/ | Documentati | Hematology/Medical | Work, Social | Social Work Notes | | 2019 | on | Oncology at [place] | | | | | | for Health & Healing | | | | | | [address] | | | | | | Mailcode: [place] | | | | | | [facility] and | | | | | | [facility] 2 | | | | | | [place], [place] | | | | | | [address] | | | | | | [phone] | | | +--------+ + + + [...] Scott | | | | | | [place], [place] | | | | | | [address] | | | | | | [phone] | | | | | | | | +--------+ + + + + | 03/25/ | Office | Orthopedics | Rosy BasurtoRegiotto, | | | 2018 | Visit | | [address] | | | | | | [address] | | | | | | [facility] [place] | | | | | | [address] | | | | | | [phone] | | | | | | | | +--------+ + + + + | 03/25/ | Office | Hematology & | Sandra Patel MD | | | 2018 | Visit | Oncology | [address] | | | | | | [place], [place] | | | | | | [address] | | | | | | [phone] | | | | | | | | +--------+ + + + + documented as of this encounter Visit Diagnoses Not on filedocumented in this encounter"
--- OUTSIDE RECORDS SUMMARY | ~2019-01-30 | XMS | Encounter Summary ---
Demographics + + + | Address | [address] | | | [place] [address] | + + + | Home Phone [...] Author + + + | Author | [facility] | + + + | Organization | [facility] | + + + | Address | Unknown | + + + | Phone | Unavailable | + + + Support + + +---------+ + | Name | Relationship | Address | Phone | + + +---------+ + | Kika Cage | ECON | Unknown | | + + +---------+ + Care Team Providers + +------+ + | Care Crepe Sole Wire Brusher Name | Role | Phone | + +------+ + | Santo Gooden MD | PCP | | + +------+ + Reason for Visit + + + | Reason | Comments | + + + | Telephone follow-up | | + + + Encounter Details +--------+ + + + + | Date | Type | Department | Care Team | Description | +--------+ + + + + | 04/18/ | Telephone | Hematology/Medical | Sandra Patel MD | Telephone follow-up | | 2018 | | Oncology at [place] | [address] | | | | | for Health & Healing | [place], [place] | | | | | [address] | [address] | | | | | Mailcode: [place] | [phone] | | | | | for Health and | | | | | | Healing, [address] | | | | | | [place], [place] | | | | | | [address] | | | | | | [phone] | | | +--------+ + + + [...] | | | 2018 | | | [address] | | | | | | [place], [place] | | | | | | [address] | | | | | | [phone] | | | | | | | | +--------+ + + + + | 03/25/ | Office | Orthopedics | Lynda ulloa, | | | 2018 | Visit | | [address] | | | | | | [address] | | | | | | [facility] [place] | | | | | | [address] | | | | | | [phone] | | | | | | | | +--------+ + + + + | 03/25/ | Office | Hematology & | Sandra Patel MD | | | 2018 | Visit | Oncology | [address] | | | | | | [place], [place] | | | | | | [address] | | | | | | [phone] | | | | | | | | +--------+ + + + + documented as of this encounter Visit Diagnoses Not on filedocumented in this encounter"
--- OUTSIDE RECORDS SUMMARY | ~2019-01-30 | XMS | Encounter Summary ---
Demographics + + + | Address | [address] | | | [place] [address] | + + + | Home Phone [...] + + + | Author | [facility] | + + + | Organization | [facility] | + + + | Address | Unknown | + + + | Phone | Unavailable | + + + Support + + +---------+ + | Name | Relationship | Address | Phone | + + +---------+ + | Kika Cage | ECON | Unknown | | + + +---------+ + Care Team Providers + +------+ + | Care Paint Process Engineer Name | Role | Phone | + +------+ + | Santo Gooden MD | PCP | | + +------+ + Encounter Details +--------+ + + + + | Date | Type | Department | Care Team | Description | +--------+ + + + + | 08/07/ | MyChart | Hematology/Medical | Sandra Patel MD | RE:port removal | | 2018 | Encounter | Oncology at [place] | [address] | | | | | for Health & Healing | [place], [place] | | | | | [address] | [address] | | | | | Mailcode: [place] | [phone] | | | | | for Health and | | | | | | Healing, [address] | | | | | | [place], [place] | | | | | | [address] | | | | | | [phone] | | | +--------+ + + + [...] Scott | | | | | | [facility] [place] | | | | | | [address] | | | | | | [phone] | | | | | | | | +--------+ + + + + | 03/25/ | Office | Orthopedics | Lynda Basurto, | | | 2018 | Visit | | [address] | | | | | | [address] | | | | | | [facility] [place] | | | | | | [address] | | | | | | [phone] | | | | | | | | +--------+ + + + + | 03/25/ | Office | Hematology & | Sandra Patel MD | | | 2019 | Visit | Oncology | [address] | | | | | | [place] | | | | | | [address] | | | | | | [phone] | | | | | | | | +--------+ + + + + documented as of this encounter Visit Diagnoses Not on filedocumented in this encounter"
--- OUTSIDE RECORDS SUMMARY | ~2019-01-30 | XMS | Encounter Summary ---
Demographics + + + | Address | [address] | | | [place] [address] | + + + | Home Phone | | + + + | Preferred Language | Unknown | + + + | Marital Status | Single | + + + | Amish Affiliation | CAT | + + + | Race | Unknown | + + + | Ethnic Group | Not or | + + + Author + + + | Author | [facility] | + + + | Organization | [facility] | + + + | Address | Unknown | + + + | Phone | Unavailable | + + + Support + + +---------+ + | Name | Relationship | Address | Phone | + + +---------+ + | Kika Cage | ECON | Unknown | | + + +---------+ + Care Team Providers + +------+ + | Care Utilities Equipment Repairer Name | Role | Phone | + [...] | | 2018 | | Oncology at [place] | [address] | | | | | for Health & Healing | [place], [place] | | | | | [address] | [address] | | | | | Mailcode: [place] | [phone] | | | | | for Health and | | | | | | [facility], [facility] 2 | | | | | | [place], [place] | | | | | | [address] | | | | | | [phone] | | | +--------+ + + + [...] Scott | | | | | | [place], [place] | | | | | | [address] | | | | | | [phone] | | | | | | | | +--------+ + + + + | 03/25/ | Office | Orthopedics | Doung, GallegosAlexander, | | | 2018 | Visit | | [address] | | | | | | [address] | | | | | | [place], [place] | | | | | | [address] | | | | | | [phone] | | | | | | | | +--------+ + + + + | 03/25/ | Office | Hematology & | Sandra Patel MD | | | 2018 | Visit | Oncology | [address] | | | | | | [place], [place] | | | | | | [address] | | | | | | [phone] | | | | | | | | +--------+ + + + + documented as of this encounter Visit Diagnoses Not on filedocumented in this encounter"
--- OUTSIDE RECORDS SUMMARY | ~2019-01-30 | XMS | Encounter Summary ---
Demographics + + + | Address | [address] | | | [place] [address] | + + + | Home Phone | | + + + | Preferred Language | Unknown | + + + | Marital Status | Single | + + + | Rastafarian Affiliation | CAT | + + + | Race | Unknown | + + + | Ethnic Group | Not or | + + + Author + + + | Author | [facility] | + + + | Organization | [facility] | + + + | Address | Unknown | + + + | Phone | Unavailable | + + + Support + + +---------+ + | Name | Relationship | Address | Phone | + + +---------+ + | Kika Cage | ECON | Unknown | | + + +---------+ + Care Team Providers + +------+ + | Care Sewer Tapper Name | Role | Phone | + [...] + + + + | 04/09/ | Hospital | Hematology/Medical | Rn Fast Track | | | 2018 | Encounter | [facility]cology at [facility] | [address] | | | | | [address] | [place] [address] | | | | | Mailcode: [place] | | | | | | [facility] | | | | | | Healing, [address] | | | | | | [place], [place] | | | | | | [address] | | | | | | [phone] | | | +--------+ + + + [...] documented as of this encounter Progress Notes Vera Gannon RN - 04/09/2018 1:05 PM PDTPatient here for PAC access prior to admission. Patient states double lumen PAC has been accessed since 03/22 with continuous Zosyn infusing for current infection. Antibiotic disconnected and PAC flushed and de-accessed by Guerline nieto RN. Patient states she manages PAC flushing and antibiotic administration herself, and RN comes to her home weekly for lab draws and PAC dressing change, but has not exchanged PAC needles since original access on 03/22. Education provided regarding new access every 7 days. Alin calvin verbalized confusion about the contradicting information and states she will follow-up sylvie Patel at today's appointment. Site prepped with intradermal lidocaine per patient's request. Double lumen PAC accessed pe r protocol - alcohol and iodine used to clean the site. CBC and CMP were drawn via PAC, resu lted via POC. and Magnesium and Phosphorus was drawn via PAC and sent to lab. UA collection cup given to patient. PAC flushed per protocol and left accessed for treatment. Pt tolerate d without incident. Pt discharged to provider visit. documented in this enco unter Plan of [...] [place] | | | | | | [address] | | | | | | [phone] | | | | | | | | +--------+ + + + + | 03/25/ | Office | Orthopedics | Lynda Basurto, | | | 2018 | Visit | | [address] | | | | | | [address] | | | | | | [place], [place] | | | | | | [address] | | | | | | [phone] | | | | | | | | +--------+ + + + + | 03/25/ | Office | Hematology & | Sandra Paetl MD | | | 2018 | Visit | Oncology | [address] | | | | | | [place], [place] | | | | | | [address] | | | | | | [phone] | | | | | | | | +--------+ + + + + documented as of this encounter Procedures + +--------+ + + + | Procedure Name | Priori | Date/Time | Associated Diagnosis | Comments | | | ty | | | | + +--------+ + + + | COMPLETE METABOLIC | Routin | 04/09/2018 | Synovial sarcoma | | | PANEL - OLP | e | 3:26 PM | (HCC) | | | | | PDT | | | + +--------+ + + + | CMP, POC (BMP+LFT) | Routin | 04/09/2018 | Synovial sarcoma | Results for this | | | e | 3:26 PM | (HCC) | procedure are in the | | | | PDT | | results section. | + +--------+ + + + | CBC WITH AUTO DIFF - | Routin | 04/09/2018 | Synovial sarcoma | | | OLP | e | 3:14 PM | (HCC) | | | | | PDT | | | + +--------+ + + + | CBC+DIFF,POC | Routin | 04/09/2018 | Synovial sarcoma | Results for this | | | e | 3:14 PM | (HCC) | procedure are in the | | | | PDT | | results section. | + +--------+ + + + | MAGNESIUM, PLASMA - | Routin | 04/09/2018 | Synovial sarcoma | Results for this | | OLP | e | 1:53 PM | (HCC) | procedure are in the | | | | PDT | | results section. | + +--------+ + + + | URINE, MICROSCOPIC | Routin | 04/09/2018 | Synovial sarcoma | Results for this | | EXAM | e | 1:53 PM | (HCC) | procedure are in the | | | | PDT | | results section. | + +--------+ + + + | PHOSPHORUS, PLASMA | Routin | 04/09/2018 | Synovial sarcoma | Results for this | | | e | 1:53 PM | (HCC) | procedure are in the | | | | PDT | | results section. | + +--------+ + + + | MAGNESIUM, PLASMA | Routin | 04/09/2018 | Synovial sarcoma | Results for this | | | e | 1:53 PM | (HCC) | procedure are in the | | | | PDT | | results section. | + +--------+ + + + documented in this encounter Results CMP, POC (BMP+LFT) (04/09/2018 3:26 PM PDT) + +---------+ + + + | Component | Value | Ref Range | Performed | Pathologist | | | | | At | Signature | + +---------+ + + + | SODIUM, POC | 138 | 134 - 143 | [facility] | | | | | mmol/L | POINT OF | | | | | | CARE TESTS | | + +---------+ + + + | POTASSIUM, | 2.8 (L) | 3.4 - 5.0 | [facility], | | | POC | | mmol/L | POINT OF | | | | | | CARE TESTS | | + +---------+ + + + | TOTAL CO2, | 27 | 22 - 29 mmol/L | [facility] [...] +---------+ + + + | GLUCOSE, | 101 (H) | 70 - 99 mg/dL | [facility], | | | POC | | | POINT OF | | | | | | CARE TESTS | | + +---------+ + + + | CALCIUM | 8.5 (L) | 8.6 - 10.2 | [facility], | | | TOTAL, POC | | mg/dL | POINT OF | | | | | | CARE TESTS | | + +---------+ + + + | BUN, POC | 11 | 6 - 20 mg/dL [...] + + + | ALK PHOS, | 48 | 33 - 76 U/L | [facility], | | | CMP POC | | | POINT OF | | | | | | CARE TESTS | | + +---------+ + + + | ALT, CMP | 24 | 0 - 60 U/L | [facility], | | | POC | | | POINT OF | | | | | | CARE TESTS | | + +---------+ + + + | AST, CMP | 22 | 0 - 41 U/L | [facility], | | | POC | | | POINT OF | | | | | | CARE TESTS | | + +---------+ + + + | BILIRUBIN | 0.7 | 0.3 - 1.2 mg/dL | [facility], | | | TOTAL, CMP | | | POINT OF | | | POC | | | CARE TESTS | | + +---------+ + + + | ALBUMIN, | 4.0 | 3.5 - 4.7 g/dL | [facility], | | | CMP POC | | | POINT OF | | | | | | CARE TESTS | | + +---------+ + + + | PROTEIN | 7.1 | 6.1 - 7.9 g/dL | [facility], | | [...] + + + + + | [facility] | [address] [facility] [facility] | [place] [address] | | | OF CARE TESTS | | | | + + + + + CBC+DIFF,POC (04/09/2018 3:14 PM PDT) + + + + + + | Component | Value | Ref Range | Performed | Pathologist | | | | | At | Signature | + + + + + + | WBC POC | 7.8 | 3.5 - 10.8 | [facility], | | | | | 10*3/uL | POINT OF | | | | | | CARE TESTS | | + + + + + + | RBC POC | 3.95 (L) | 4.00 - 5.20 | [facility], | | | | | 10*6/uL | POINT OF | | | | | | CARE TESTS | | + + + + + + | HGB POC | 12.1 | 12.0 - 16.0 | [facility], | | | | | g/dL | POINT OF | | | | | | CARE TESTS | | + + + + + + | HCT POC | 35.4 (L) | 36.0 - 46.0 % | [facility], | | | | | | POINT OF | | | | | | CARE TESTS | | + + + + + + | MCV POC | 89.6 | 80.0 - 100 fL | [facility], | | | | | | POINT OF | | | | | | CARE TESTS | | + + + + + + | MCH POC | 30.6 | 27.0 - 34.0 pg | [facility], | | | | | | POINT OF | | | | | | CARE TESTS | | + + + + + + | MCHC POC | 34.2 | 32.0 - 36.0 | [facility], | | | | | g/dL | POINT OF | | | | | | CARE TESTS | | + + + + + + | RDW SD, POC | 49.3 (H) | 35.1 - 46.3 fL | [facility], | | | | | | POINT OF | | | | | | CARE TESTS | | + + + + + + | PLT POC | 246 | 150 - 400 | [facility] [...] + + + + | NEUTROPHIL% | 58.6 | 50.0 - 70.0 % | [facility], | | | POC | | | POINT OF | | | | | | CARE TESTS | | + + + + + + | LYMPH% POC | 22.7 | 18 - 42 % | [facility], | | | | | | POINT OF | | | | | | CARE TESTS | | + + + + + + | MONO %, POC | 14.9 (H) | 3.5 - 9.0 % | [facility], | | | | | | POINT OF | | | | | | CARE TESTS | | + + + + + + | EOS %, POC | 1.0 | 1.0 - 3.0 % | [facility], | | | | | | POINT OF | | | | | | CARE TESTS | | + + + + + + | BASO %, POC | 2.8 (H) | 0.0 - 2.0 % | [facility], | | | | | | POINT OF | | | | | | CARE TESTS | | + + + + + + | NEUTROPHIL# | 4.6 | 1.8 - 7.7 | [facility], | | | POC | | 10*3/uL | POINT OF | | | | | | CARE TESTS | | + + + + + + | LYMPH# POC | 1.8 | 1.0 - 4.8 | [facility], | | | | | 10*3/uL | POINT OF | | | | | | CARE TESTS | | + + + + + + | MONO #, POC | 1.2 (H) | 0.1 - 0.9 | [facility], | | | | | 10*3/uL | POINT OF | | | | | | CARE TESTS | | + + + + + + | EOS #, POC | 0.1 | 0.0 - 0.5 | [facility], | | | | | 10*3/uL | POINT OF | | | | | | CARE TESTS | | + + + + + + | BASO #, POC | 0.2 (H) | 0.0 - 0.1 | [facility], | | | | | 10*3/uL | [...] + + + + | [facility] | [address] | [place] [address] | | | OF CARE TESTS | | | | + + + + + MAGNESIUM, PLASMA (04/09/2018 1:53 PM PDT) + +-------+ + + + | Component | Value | Ref Range | Performed | Pathologist | | | | | At | Signature | + +-------+ + + + | MAGNESIUM,P | 2.0 | 1.6 - 2.6 mg/dL | [facility] [...] [facility] | [address] | [place] [address] | | | SERVICES, CORE | [address] | | | + + + + + URINE, MICROSCOPIC EXAM (04/09/2018 1:53 PM PDT) + +---------+ + + + | Component | Value | Ref Range | Performed | Pathologist | | | | | At | Signature | + +---------+ + + + | RED CELLS | 4 (H) | 0 - 3 /hpf | [facility] | | | | | | LABORATORY | | | | | | SERVICES, | | | | | | CORE | | + +---------+ + + + | WHITE CELLS | 8 (H) | 0 - 5 /hpf | [facility] | | | | | | LABORATORY | | | | | | SERVICES, | | | | | | CORE | | + +---------+ + + + | BACTERIA | None | None /hpf | [facility] | | | | | | LABORATORY | | | | | | SERVICES, | | | | | | CORE | | + +---------+ + + + | YEAST (LAB) | Few (A) | None /hpf | [facility] | | | | | | LABORATORY | | | | | | SERVICES, | | | | | | CORE | | + +---------+ + + + | SQUAMOUS | Few (A) | None /hpf | [facility] | | | EPITHELIAL | | | LABORATORY | | | | | | SERVICES, | | | | | | CORE | | + +---------+ + + + | MUCOUS | Few (A) | None /hpf | [facility] | | | | | | LABORATORY | | | | | | SERVICES, | | | | | | CORE | | + +---------+ + + + | TRICHOMONAS | None | None /hpf | [facility] | | | | | | LABORATORY | | | | | | SERVICES, | | | | | | CORE | | + +---------+ + + + | NON-RUPERTO | Few (A) | None /hpf | [facility] | | | S EPITH | | | LABORATORY | | | | | | SERVICES, | | | | | | CORE | | + +---------+ + + + | HYALINE | 0 | 0 - 2 /lpf | [facility] | | | CASTS | | | LABORATORY | | | | | | SERVICES, | | | | | | CORE | | + +---------+ + + + | GRANULAR | 0 | 0 - 2 /lpf | [facility] | | | CASTS | | | LABORATORY | | | | | | SERVICES, | | | | | | CORE | | + +---------+ + + + | CELLULAR | 0 | <=0 /lpf | [facility] | | | CASTS | | | LABORATORY | | | | | | SERVICES, | | | | | | CORE | | + +---------+ + + + | TRIPLE P04 | None | None /hpf | [facility] | | | CRYSTALS | | | LABORATORY | | | | | | SERVICES, | | | | | | CORE | | + +---------+ + + + | CALCIUM | None | None /hpf | [facility] | | | OXALATE | | | LABORATORY | | | FLORENTINO | | | SERVICES, | | | | | | CORE | | + +---------+ + + + | URIC ACID | None | None /hpf | [facility] | | | CRYSTALS | | | LABORATORY | | | | | | SERVICES, | | | | | | CORE | | + +---------+ + + + | AMORPHOUS | None [...] [facility] | [address] | [place] [address] | | | SERVICES, CORE | [address] | | | + + + + + PHOSPHORUS, PLASMA (04/09/2018 1:53 PM PDT) + +---------+ + + + | Component | Value | Ref Range | Performed | Pathologist | | | | | At | Signature | + +---------+ + + + | PHOSPHORUS, | 5.0 (H) | 2.4 - 4.7 mg/dL | [facility] [...] | + + + + + | [facility] | [address] | [place] [address] | | | SERVICES, CORE | [address] | | | + + + + + documented in this encounter Visit Diagnoses + + | Diagnosis | + + | 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
--- OUTSIDE RECORDS SUMMARY | ~2019-01-30 | XMS | Encounter Summary ---
Demographics + + + | Address | [address] | | | [place] [address] | + + + | Home Phone | | + + + | Preferred Language | Unknown | + + + | Marital Status | Single | + + + | Spiritism Affiliation | CAT | + + + | Race | Unknown | + + + | Ethnic Group | Not or | + + + Author + + + | Author | [facility] | + + + | Organization | [facility] | + + + | Address | Unknown | + + + | Phone | Unavailable | + + + Support + + +---------+ + | Name | Relationship | Address | Phone | + + +---------+ + | Kika Cage | ECON | Unknown | | + + +---------+ + Care Team Providers + +------+ + | Care President Financial Institution Name | Role | Phone | + [...] | 02/26/ | Telephone | Hematology/Medical | Sandra Patel MD | Symptom Management | | 2018 | | [facility] [place] | [address] | | | | | for [facility] & Healing | [place], [place] | | | | | [address] | [address] | | | | | Mailcode: [place] | [phone] | | | | | for Health and | | | | | | Healing, [address] | | | | | | [facility] [place] | | | | | | [address] | | | | | | [phone] | | | +--------+ + + + [...] | | | 2018 | | | [address] | | | | | | [place], [place] | | | | | | [address] | | | | | | [phone] | | | | | | | | +--------+ + + + + | 03/25/ | Office | Orthopedics | Rosy BasurtoAlexander, | | | 2018 | Visit | | [address] | | | | | | [address] | | | | | | [place], [place] | | | | | | [address] | | | | | | [phone] | | | | | | | | +--------+ + + + + | 03/25/ | Office | Hematology & | Sandra Patel MD | | | 2018 | Visit | Oncology | [address] | | | | | | [place], [place] | | | | | | [address] | | | | | | [phone] | | | | | | | | +--------+ + + + + documented as of this encounter Visit Diagnoses Not on filedocumented in this encounter"
--- OUTSIDE RECORDS SUMMARY | ~2019-01-30 | XMS | Encounter Summary ---
Demographics + + + | Address | [address] | | | [place] [address] | + + + | Home Phone | | + + + | Preferred Language | Unknown | + + + | Marital Status | Single | + + + | Buddhism Affiliation | CAT | + + + [...] Team Providers + +------+ + | Care Social Media Project Manager Name | Role | Phone | + +------+ + | Santo Gooden MD | PCP | | + +------+ + Encounter Details +--------+---------+ + + + | Date | Type | Department | Care Team | Description | +--------+---------+ + + + | 12/03/ | Office | [facility] | Lynda Basurto, | Synovial sarcoma | | 2019 | Visit | & Rehabilitation at | [address] | ([facility]) (Primary Dx) | | | | [facility] [address] | [address] | | | | | [address] Mailcode: | [place], [place] | | | | | [place] [facility] | [address] | | | | | and Healing, | [phone] | | | | | [address] | | | | | | [place], [place] | | | | | | [address] | | | | | | [phone] | | | +--------+---------+ + + + [...] documented as of this encounter Progress Notes Lynda Basurto MD - 12/03/2018 3:20 PM PDTDiagnosis: 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 F here for followup. 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 She got a new one about a week ago and still has some sore spots. No assisti ve device. No new masses. PE: Wt 155.2 kg (342 lb 1.6 oz), BP 132/80, Pulse 78, Temperature 36.5 C (97.7 F), Temperat ure source Oral, RR 16, SpO2 98%, BMI 52.02 kg/(m^2). Facility age limit for growth percent dayo is 18 years. Incision healed. No drainage. No erythema. No tenderness palpation. No skin breakdown. No m asses. No inguinal lymphadenopathy Normal gait with prosthesis Imaging: Reviewed by myself. 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 No local recurrence or mets seen -rtc 3-[address] chest for surveillance documented in this e ncounter Plan of Treatment +--------+ + + + + | Date | Type | Specialty | Care Team | Description | +--------+ + + + + | 03/25/ | Appointment | Radiology | Sandra Patel MD | | | 2018 | | | [address] | | | | | | [place], [place] | | | | | | [address] | | | | | | [phone] | | | | | | | | +--------+ + + + + | 03/25/ | Office | Orthopedics | Lynda Basurto, | | | 2018 | Visit | | [address] | | | | | | [address] | | | | | | [place], [place] | | | | | | [address] | | | | | | [phone] | | | | | | | | +--------+ + + + + | 03/25/ | Office | Hematology & | Sandra Patel MD | | | 2019 | Visit | Oncology | [address] | | | | | | [place], [place] | | | | | | [address] | | | | | | [phone] | | | | | | | | +--------+ + + + + documented as of this encounter Visit Diagnoses + + | Diagnosis | + + | 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
--- OUTSIDE RECORDS SUMMARY | ~2019-01-30 | XMS | Encounter Summary ---
Demographics + + + | Address | [address] | | | [place] [address] | + + + | Home Phone [...] Team Providers + +------+ + | Care Quality Control Tester Name | Role | Phone | + +------+ + | Santo Gooden MD | PCP | | + +------+ + Encounter Details +--------+ + + + + | Date | Type | Department | Care Team | Description | +--------+ + + + + | 02/05/ | [facility] [employer] | LAB CORE [address] | Fabio Blackmon | Preop examination | | 2018 | | Fidencio Rogers MD [address] | (Primary Dx) | | | | Road [place], [place] | [address] | | | | | [address] | [place], [place] | | | | | [phone] | [address] | | | | | | [phone] | | | | | | | [...] | | | 2018 | | | [address] | | | | | | [place], [place] | | | | | | [address] | | | | | | [phone] | | | | | | | | +--------+ + + + + | 03/25/ | Office | Orthopedics | Lynda Basurto, | | | 2018 | Visit | | [address] | | | | | | [address] | | | | | | [place], [place] | | | | | | [address] | | | | | | [phone] | | | | | | | | +--------+ + + + + | 03/25/ | Office | Hematology & | Sandra Patel MD | | | 2019 | Visit | Oncology | [address] | | | | | | [place], [place] | | | | | | [address] | | | | | | [phone] | | | | | | | | +--------+ + + + + documented as of this encounter Procedures + +--------+ + + + | Procedure Name | Priori | Date/Time | Associated Diagnosis | Comments | | | ty | | | | + +--------+ + + + | CONFIRMATORY ABO/RH | Routin | 02/06/2018 | Preop examination | Results for this | | | e | 11:06 AM | | procedure are in the | | | | PDT | | results section. | + +--------+ + + + documented in this encounter Results CONFIRMATORY ABO/RH (02/06/2018 11:06 AM PDT) + + + + + [...] + + + + + | [facility] | [address] | [place] [address] | | | SERVICES, | [address] | | | | TRANSFUSION MEDICINE | | | | + + + + + documented in this encounter Visit Diagnoses + + | Diagnosis | + + | Preop examination - Primary Preoperative examination, unspecified | + + documented in this encounter"
--- OUTSIDE RECORDS SUMMARY | ~2019-01-30 | XMS | Encounter Summary ---
Demographics + + + | Address | [address] | | | [place] [address] | + + + | Home Phone [...] Author + + + | Author | [facility] | + + + | Organization | [facility] | + + + | Address | Unknown | + + + | Phone | Unavailable | + + + Support + + +---------+ + | Name | Relationship | Address | Phone | + + +---------+ + | Kika Cage | ECON | Unknown | | + + +---------+ + Care Team Providers + +------+ + | Care Paper Machine Back Tender Name | Role | Phone | [...] Closed | | Radiology | Diagnoses | Doung, | Rad Ct Scan | | | | | Synovial | Lynda, | [facility] 4573 | | | | | sarcoma | [address] | [place] [place] | | | | | ([facility]) | [address] | Mailcode: | | | | | Procedures | [address] | [facility] | | | | | CT CHEST WO | [facility] [place] | for Health | | | | | [place] | [address] | and Healing, | | | | | CT | Phone: | 3rd Floor | | | | | SCAN,THORAX, | [phone] | [place], [place] | | | | | W/O CONTRAST | Fax: | [address] | | | | | | [phone] | Phone: | | | | | | | [phone] | | | | | | | Fax: | | | | | | | [phone] | +--------+--------+ + + + + Diagnostic Testing (Routine) +--------+--------+ + + + + | Status | Reason | Specialty | Diagnoses / | Referred By | Referred To | | | | | Procedures | Contact | Contact | +--------+--------+ + + + + | Closed | | Radiology | Diagnoses | Doung, | Rad Ct Scan | | | | | Synovial | Lynda, | [facility] 4703 | | | | | sarcoma | [address] | [address] | | | | | ([facility]) | [place] Nascimento | Mailcode: | | | | | Procedures | [address] | [facility] | | | | | CT CHEST WO | [place], [place] | for Health | | | | | [place]AST [place] | [address] | and Healing, | | | | | CT | Phone: | 3rd Floor | | | | | SCAN,THORAX, | [phone] | [facility] [place] | | | | | W/O CONTRAST | Fax: | [address] | | | | | | [phone] | Phone: | | | | | | | [phone] | | | | | | | Fax: | | | | | | | [phone] | +--------+--------+ + + + + Reason for Visit Diagnostic Testing (Routine) +--------+--------+ + + + + | Status | Reason | Specialty | Diagnoses / | Referred By | Referred To | | | | | Procedures | Contact | Contact | +--------+--------+ + + + + | Closed | | Radiology | Diagnoses | Doung, | Rad Ct Scan | | | | | Synovial | Lynda, | h [address] | | | | | sarcoma | [address] | [place] | | | | | ([facility]) | Federico Nascimento | Mailcode: | | | | | Procedures | [address] | [facility] | | | | | CT CHEST WO | [place], [place] | for Health | | | | | [place] | [address] | and Healing, | | | | | CT | Phone: | 3rd Floor | | | | | SCAN,THORAX, | [phone] | [facility] [place] | | | | | W/O CONTRAST | Fax: | [address] | | | | | | [phone] | Phone: | | | | | | | [phone] | | | | | | | Fax: | | | | | | | [phone] | +--------+--------+ + + + + Encounter Details +--------+ + + + + | Date | Type | Department | Care Team | Description | +--------+ + + + + | 08/06/ | Hospital | Radiology/Imaging | Lynda Basurto, | | | 2018 | Encounter | Lab at [facility] [address] | [address] [facility] | | | | | Rachel Scott | [facility] | | | | | Mailcode: CH3G | [place], [place] | | | | | [facility] | [address] | | | | | and [facility] | [phone] | | | | | [place], [place] | | | | | | [address] | | | | | | [phone] | | | +--------+ + + + [...] Scott | | | | | | [place], [place] | | | | | | [address] | | | | | | [phone] | | | | | | | | +--------+ + + + + | 03/25/ | Office | Orthopedics | Lynda Basurto, | | | 2018 | Visit | | [address] | | | | | | [address] | | | | | | [place], [place] | | | | | | [address] | | | | | | [phone] | | | | | | | | +--------+ + + + + | 03/25/ | Office | Hematology & | Sandra Patel MD | | | 2018 | Visit | Oncology | [address] | | | | | | [place], [place] | | | | | | [address] | | | | | | [phone] | | | | | | | | +--------+ + + + + documented as of this encounter Procedures + +--------+ + + + | Procedure Name | Priori | Date/Time | Associated Diagnosis | Comments | | | ty | | | | + +--------+ + + + | CT CHEST WO CONTRAST | Routin | 08/06/2018 | Synovial sarcoma | Results for this | | | e | 11:46 AM | (HCC) | procedure are in the | | | | PST | | results section. 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 Coronal and sagittal images were | | | also generated. FINDINGS: The lungs are clear with no suspect | | | pulmonary nodule. There is no consolidation. No evidence for | | | thoracic lymphadenopathy. Thoracic aorta is normal in size. Heart size | | | is normal. There is no pericardial effusion. No pleural effusion. | | | Right IJ Port-A-Cath extends to the cavoatrial junction. No | | | suspect osseous abnormality. Limited noncontrast evaluation of the | | | visualized upper abdomen is unremarkable. IMPRESSION: No | | | evidence of intrathoracic metastasis. I have personally reviewed | | | the images and, if necessary, edited the report. I agree with the | | | report as now presented. Final signature: Roland Wu MD | | | 08/06/2018 1:06 PM Preliminary: Roland Wu MD Dictation | | | initiated: Roland Wu MD 08/06/2018 1:03 PM | | + + + + + | Procedure Note | + + | Service Account, Radiant Res In Interface - 08/06/2018 1:07 PM PST EXAM: CT CHEST WO | | CONTRAST HISTORY: Synovial sarcoma, surveillance COMPARISON: 05/14/2018 TECHNIQUE: | | Helical scanning was obtained of the chest without intravenous contrast and reviewed in | | soft tissue and lung algorithm. Coronal and sagittal images were also generated. | | FINDINGS: The lungs are clear with no suspect pulmonary nodule. There is no | | consolidation. No evidence for thoracic lymphadenopathy. Thoracic aorta is normal in | | size. Heart size is normal. There is no pericardial effusion. No pleural effusion. Right | | IJ Port-A-Cath extends to the cavoatrial junction. No suspect osseous abnormality. | | Limited noncontrast evaluation of the visualized upper abdomen is unremarkable. | | IMPRESSION: No evidence of intrathoracic metastasis. I have personally reviewed the | | images and, if necessary, edited the report. I agree with the report as now presented. | | Final signature: Roland Wu MD 08/06/2018 1:06 PM Preliminary: Roland Wu MD | | Dictation initiated: Roland Wu MD 08/06/2018 1:03 PM | | | |No suspect osseous abnormality. Limited noncontrast evaluation of the visualized upper abdo men is unremarkable. | | | |IMPRESSION: | | | |No evidence of intrathoracic metastasis. | | | |I have personally reviewed the images and, if necessary, edited the report. I agree with th e report as now presented. | | | |Final signature: Roland Wu MD 08/06/2018 1:06 PM | |Preliminary: Roland Wu MD | |Dictation initiated: Roland Wu MD 08/06/2018 1:03 PM | + + + +---------+ + [...]
--- OUTSIDE RECORDS SUMMARY | ~2019-01-30 | XMS | Encounter Summary ---
Demographics + + + | Address | [address] | | | [place] [address] | + + + | Home Phone | | + + + | Preferred Language | Unknown | + + + | Marital Status | Single | + + + | Christianity Affiliation | CAT | + + + | Race | Unknown | + + + | Ethnic Group | Not or | + + + Author + + + | Author | [facility] | + + + | Organization | [facility] | + + + | Address | Unknown | + + + | Phone | Unavailable | + + + Support + + +---------+ + | Name | Relationship | Address | Phone | + + +---------+ + | Kika Cage | ECON | Unknown | | + + +---------+ + Care Team Providers + +------+ + | Care Front Sight Attacher Name | Role | Phone | + [...] | 03/12/ | Hospital | Hematology/Medical | Rn, Fast Track | | | 2018 | Encounter | Oncology at [facility] | [address] | | | | | [address] | [place] [address] | | | | | Mailcode: [place] | | | | | | [facility] Health and | | | | | | Healing, [address] | | | | | | [place], [place] | | | | | | [address] | | | | | | [phone] | | | +--------+ + + + [...] documented as of this encounter Progress Notes Siria Dill RN - 03/12/2018 1:20 PM PDTDouble lumen PAC accessed per protocol. CBC and CMP were drawn via medial PAC, resulted via POC. PAC flushed per protocol and left accessed for treatment. Pt tolerated without incident. Pt discharged to provider visit. documented in this enc ounter Plan of Treatment +--------+ + + + + | Date | Type | Specialty | Care Team | Description | +--------+ + + + + | 03/25/ | Appointment | Radiology | Sandra Patel MD | | | 2018 | | | [address] | | | | | | [place], [place] | | | | | | [address] | | | | | | [phone] | | | | | | | | +--------+ + + + + | 03/25/ | Office | Orthopedics | Lynda Basurto, | | | 2018 | Visit | | [address] | | | | | | [address] | | | | | | [place], [place] | | | | | | [address] | | | | | | [phone] | | | | | | | | +--------+ + + + + | 03/25/ | Office | Hematology & | Sandra Patel MD | | | 2018 | Visit | Oncology | [address] | | | | | | [place], [place] | | | | | | [address] | | | | | | [phone] | | | | | | | | +--------+ + + + + + +------+--------+ + + | Name | Type | Priori | Associated Diagnoses | Order Schedule | | | | ty | | | + +------+--------+ + + | PHOSPHORUS, PLASMA | Lab | Routin | Synovial sarcoma | Ordered: 03/12/2018 | | | | e | (HCC) | | + +------+--------+ + + | MAGNESIUM, PLASMA | Lab | Routin | Synovial sarcoma | Ordered: 03/12/2018 | | | | e | (HCC) | | + +------+--------+ + + documented as of this encounter Procedures + +--------+ + + + | Procedure Name | Priori | Date/Time | Associated Diagnosis | Comments | | | ty | | | | + +--------+ + + + | COMPLETE METABOLIC | Routin | 03/12/2018 | Synovial sarcoma | | | PANEL - OLP | e | 2:20 PM | (HCC) | | | | | PDT | | | + +--------+ + + + | CMP, POC (BMP+LFT) | Routin | 03/12/2018 | Synovial sarcoma | Results for this | | | e | 2:20 PM | (HCC) | procedure are in the | | | | PDT | | results section. | + +--------+ + + + | CBC WITH AUTO DIFF - | Routin | 03/12/2018 | Synovial sarcoma | | | OLP | e | 2:14 PM | (HCC) | | | | | PDT | | | + +--------+ + + + | CBC+DIFF,POC | Routin | 03/12/2018 | Synovial sarcoma | Results for this | | | e | 2:14 PM | (HCC) | procedure are in the | | | | PDT | | results section. | + +--------+ + + + | URINE, MICROSCOPIC | Routin | 03/12/2018 | Synovial sarcoma | Results for this | | EXAM | e | 1:44 PM | (HCC) | procedure are in the | | | | PDT | | results section. | + +--------+ + + + documented in this encounter Results CMP, POC (BMP+LFT) (03/12/2018 2:20 PM PDT) + +-------+ + + + | Component | Value | Ref Range | Performed | Pathologist | | | | | At | Signature | + +-------+ + + + | SODIUM, POC | 141 | 134 - 143 | [facility], | | | | | mmol/L | POINT OF | | | | | | CARE TESTS | | + +-------+ + + + | POTASSIUM, | 3.4 | 3.4 - 5.0 | [facility], | | | POC | | mmol/L | POINT OF | | | | | | CARE TESTS | | + +-------+ + + + | TOTAL CO2, | 27 | 22 - 29 mmol/L | [facility], | | | POC | | | POINT OF | | | | | | CARE TESTS | | + +-------+ + + + | CHLORIDE, | 102 | 97 - 108 mmol/L | [facility], | | | POC | | | POINT OF | | | | | | CARE TESTS | | + +-------+ + + + | GLUCOSE, | 88 | 70 - 99 mg/dL | [facility], | | | POC | | | POINT OF | | | | | | CARE TESTS | | + +-------+ + + + | CALCIUM | 9.3 | 8.6 - 10.2 | [facility], | | | TOTAL, POC | | mg/dL | POINT OF | | | | | | CARE TESTS | | + +-------+ + + + | BUN, POC | 13 | 6 - 20 mg/dL | [facility], | | | | | | POINT OF | | | | | | CARE TESTS | | + +-------+ + + + | CREATININE, | 0.8 | 0.6 - 1.1 mg/dL | [facility], | | | POC | | | POINT OF | | | | | | CARE TESTS | | + +-------+ + + + | ALK PHOS, | 55 | 33 - 76 U/L | [facility], | | | CMP POC | | | POINT OF | | | | | | CARE TESTS | | + +-------+ + + + | ALT, CMP | 25 | 0 - 60 U/L | [facility], | | | POC | | | POINT OF | | | | | | CARE TESTS | | + +-------+ + + + | AST, CMP | 23 | 0 - 41 U/L | [facility], | | | POC | | | POINT OF | | | | | | CARE TESTS | | + +-------+ + + + | BILIRUBIN | 0.5 | 0.3 - 1.2 mg/dL | [facility], | | | TOTAL, CMP | | | POINT OF | | | POC | | | CARE TESTS | | + +-------+ + + + | ALBUMIN, | 3.5 | 3.5 - 4.7 g/dL | [facility], | | | CMP POC | | | POINT OF | | | | | | CARE TESTS | | + +-------+ + + + | PROTEIN | 7.1 | 6.1 - 7.9 g/dL | [facility], | | | TOTAL, CMP | | | POINT OF | | | POC | | | CARE TESTS | | + +-------+ + + + + + | Specimen | + + | Blood | + + + + + + + | Performing | Address | City/State/Zipcode | Phone Number | | Organization | | | | + + + + + | [facility], POINT | [address] | [place] [address] | | | OF CARE TESTS | | | | + + + + + CBC+DIFF,POC (03/12/2018 2:14 PM PDT) + + + + + + | Component | Value | Ref Range | Performed | Pathologist | | | | | At | Signature | + + + + + + | WBC POC | 6.9 | 3.5 - 10.8 | [facility], | | | | | 10*3/uL | POINT OF | | | | | | CARE TESTS | | + + + + + + | RBC POC | 3.37 (L) | 4.00 - 5.20 | [facility] [...] 92.0 | 80.0 - 100 fL | [facility], | | | | | | POINT OF | | | | | | CARE TESTS | | + + + + + + | MCH POC | 30.3 | 27.0 - 34.0 pg | [facility], | | | | | | POINT OF | | | | | | CARE TESTS | | + + + + + + | MCHC POC | 32.9 (L) | 32.0 - 36.0 | [facility] [...] | 559 (H) | 150 - 400 | [facility] [...] + + + + | NEUTROPHIL% | 51.9 | 50.0 - 70.0 % | [facility], | | | POC | | | POINT OF | | | | | | CARE TESTS | | + + + + + + | LYMPH% POC | 30.4 | 18 - 42 % | [facility] [...] + + + + | NEUTROPHIL# | 3.6 | 1.8 - 7.7 | [facility], | | | POC | | 10*3/uL | POINT OF | | | | | | CARE TESTS | | + + + + + + | LYMPH# POC | 2.1 | 1.0 - 4.8 | [facility], | | | | | 10*3/uL | POINT OF | | | | | | CARE TESTS | | + + + + + + | MONO #, POC | 1.0 (H) | 0.1 - 0.9 | [facility], | | | | | 10*3/uL | POINT OF | | | | | | CARE TESTS | | + + + + + + | EOS #, POC | 0.0 | 0.0 - 0.5 | [facility], | | | | | 10*3/uL | POINT OF | | | | | | CARE TESTS | | + + + + + + | BASO #, POC | 0.2 (H) | 0.0 - 0.1 | [facility] [...] + + + + | [facility] | [address] | [place] [address] | | | OF CARE TESTS | | | | + + + + + URINE, MICROSCOPIC EXAM (03/12/2018 1:44 PM PDT) + +---------+ + + + | Component | Value | Ref Range | Performed | Pathologist | | | | | At | Signature | + +---------+ + + + | RED CELLS | <1 | 0 - 3 /hpf | [facility] | | | | | | LABORATORY | | | | | | SERVICES, | | | | | | CORE | | + +---------+ + + + | WHITE CELLS | 2 | 0 - 5 /hpf | [facility] [...] +---------+ + + + | MUCOUS | None [...] | + +---------+ + + + | NON-SQUAMOU | None [...] [facility] | [address] | [place] [address] | | | SERVICES, CORE | [address] | | | + + + + + documented in this encounter Visit Diagnoses + + | Diagnosis | + + | 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
--- OUTSIDE RECORDS SUMMARY | ~2019-01-30 | XMS | Encounter Summary ---
Demographics + + + | Address | [address] | | | [place] [address] | + + + | Home Phone | | + + + | Preferred Language | Unknown | + + + | Marital Status | Single | + + + | Adventism Affiliation | CAT | + + + [...] Team Providers + +------+ + | Care Coffee Plantation Worker Name | Role | Phone | + +------+ + | Santo Gooden MD | PCP | | + +------+ + Reason for Visit +--------+ + | Reason | Comments | +--------+ + | Other | pt requesting call from [place] | +--------+ + Encounter Details +--------+ + + + + | Date | Type | Department | Care Team | Description | +--------+ + + + + | 05/22/ | Telephone | Orthopaedics at | Lynda Basurto, | Other (pt requesting | | 2017 | | [facility] [address] | [address] | call from DANIEL) | | | | [place] Mailcode: CH12A | [address] | | | | | [facility] | [place], [place] | | | | | and | [address] | | | | | Floor [place], [place] | [phone] | | | | | [address] | | | | | | [phone] | | | +--------+ + + + [...] | | | 2019 | | | [address] | | | | | | [place], [place] | | | | | | [address] | | | | | | [phone] | | | | | | | | +--------+ + + + + | 03/25/ | Office | Orthopedics | Lynda Basurto, | | | 2018 | Visit | | [address] | | | | | | [address] | | | | | | [place], [place] | | | | | | [address] | | | | | | [phone] | | | | | | | | +--------+ + + + + | 03/25/ | Office | Hematology & | Sandra Patel MD | | | 2018 | Visit | Oncology | [address] | | | | | | [facility], [place] | | | | | | [address] | | | | | | [phone] | | | | | | | | +--------+ + + + + documented as of this encounter Visit Diagnoses Not on filedocumented in this encounter"
--- OUTSIDE RECORDS SUMMARY | ~2019-01-30 | XMS | Clinical Summary ---
Demographics + + + | Address | [address] | | | [place] [address] | + + + | Home Phone | | + + + | Preferred Language | Unknown | + + + | Marital Status | Single | + + + | Voodoo Affiliation | CAT | + + + [...] Team Providers + +------+ + | Care Shellac Polisher Name | Role | Phone | + +------+ + | Santo Gooden MD | PP | | + +------+ + Source Comments [facility] is fully live on both [facility] Ambulatory and [facility] InPatient.[facility] Allergies + + + + + [...] [place] | | | | | | [address] | | | | | | [phone] | | | | | | | | +--------+ + + + + | 03/25/ | Office | | Lynda Basurto, | | | 2018 | Visit | | [address] | | | | | | [address] | | | | | | [place], [place] | | | | | | [address] | | | | | | [phone] | | | | | | | | +--------+ + + + + | 03/25/ | Office | | Sandra Patel MD | | | 2019 | Visit | | [address] | | | | | | [place], [place] | | | | | | [address] | | | | | | [phone] | | | | | | | [...] | | | | 465 | | [id number]: Qty: 1 on | | | | | | | | 02/06/2018 by Sb, | | | | | | | | MD Lynda at [facility] | | | | | | [...] CROSS | | 16-Pre | 8 | [address] | | | | [place] | | sent | | [place], | | | | L | | | | [place] [address] | | + +--------+ +--------+ + +--------+ | [facility] | | [phone] | Effect | [...] Person | Self | [birth year] | [address] | | | al/Fam | | 1985 | [phone] | [place] [address] | | | emerita | | | [...]
--- OUTSIDE RECORDS SUMMARY | ~2019-01-30 | XMS | Encounter Summary ---
Demographics + + + | Address | [address] | | | [place] [address] | + + + | Home Phone | | + + + | Preferred Language | Unknown | + + + | Marital Status | Single | + + + | Methodist Affiliation | CAT | + + + | Race | Unknown | + + + | Ethnic Group | Not or | + + + Author + + + | Author | [facility] | + + + | Organization | [facility] | + + + | Address | Unknown | + + + | Phone | Unavailable | + + + Support + + +---------+ + | Name | Relationship | Address | Phone | + + +---------+ + | Kika Cage | ECON | Unknown | | + + +---------+ + Care Team Providers + +------+ + | Care Bell Ringer Name | Role | Phone | + +------+ + | Santo Gooden MD | PCP | | + +------+ + Encounter Details +--------+ + + + + | Date | Type | Department | Care Team | Description | +--------+ + + + + | 05/09/ | Documentati | Hematology/Medical | Sandra Patel MD | | | 2018 | on | [facility]cology at [facility] | [address] | | | | | [facility] | [place], [place] | | | | | [address] | [address] | | | | | Mailcode: [facility] | [phone] | | | | | for Health and | | | | | | Healing, [facility] | | | | | | [place], [place] | | | | | | [address] | | | | | | [phone] | | | +--------+ + + + [...] [address] | | | | | | [place], [place] | | | | | | [address] | | | | | | [phone] | | | | | | | | +--------+ + + + + | 03/25/ | Office | Orthopedics | Lynda Basurto, | | | 2019 | Visit | | [address] | | | | | | [address] | | | | | | [place], [place] | | | | | | [address] | | | | | | [phone] | | | | | | | | +--------+ + + + + | 03/25/ | Office | Hematology & | Sandra Patel MD | | | 2019 | Visit | Oncology | [address] | | | | | | [place], [place] | | | | | | [address] | | | | | | [phone] | | | | | | | | +--------+ + + + + documented as of this encounter Procedures + +--------+ + + + | Procedure Name | Priori | Date/Time | Associated Diagnosis | Comments | | | ty | | | | + +--------+ + + + | CBC, WITH | Routin | 05/01/2018 | | Results for this | | DIFFERENTIAL | e | | | procedure are in the | | | | | | results section. | + +--------+ + + + | COMPLETE METABOLIC | Routin | 05/01/2018 | | Results for this | | SET | e | | | procedure are in the | | (NA,K,CL,CO2,BUN,CRE | | | | results section. | | AT,GLUC,CA,AST,ALT,B | | | | | | AZEEM TOTAL,ALK | | | | | | PHOS,ALB,PROT TOTAL) | | | | | + +--------+ + + + | C-REACTIVE PROTEIN | Routin | 05/01/2018 | | Results for this | | | e | | | procedure are in the | | | | | | results section. | + +--------+ + + + documented in this encounter Results C-REACTIVE PROTEIN (05/01/2018) + +---------+ + + + | Component | Value | Ref Range | Performed | Pathologist | | | | | At | Signature | + +---------+ + + + | C-REACTIVE | 9.0 (H) | 0 - 5 mg/L | NON [facility] | | | PROTEIN | | | LAB | | + +---------+ + + + + + | Specimen | + + | Blood | + + + +---------+ + + | Performing | Address | City/State/Zipcode | Phone Number | | Organization | | | | + +---------+ + + | NON [facility] | | | | + +---------+ + + CBC, WITH DIFFERENTIAL (05/01/2018) + + + + + + | Component | Value | Ref Range | Performed | Pathologist | | | | | At | Signature | + + + + + + | WHITE CELL | 1.0 | 4.5 - 11.0 K/cu | NON [facility] | | | COUNT | | mm | LAB | | + + + + + + | RED CELL | 3.68 | 3.8 - 5.1 M/cu | NON [facility] | | | COUNT | | mm | LAB | | + + + + + + | HEMOGLOBIN | 11.5 | 12.0 - 16.0 | NON [facility] | | | | | g/dL | LAB | | + + + + + + | HEMATOCRIT | 33.5 | 35 - 45 % | NON [facility] | | | | | | LAB | | + + + + + + | MCV | 91.1 | 81 - 99 fL | NON [facility] | | | | | | LAB | | + + + + + + | MCH | 15.9 (H) | 10.5 - 15.0 pg | NON [facility] | | | | | | LAB | | + + + + + + | MCHC | 34 | 30 - 36 g/dL | NON [facility] | | | | | | LAB | | + + + + + + | PLATELET | 81 (L) | 140 - 440 K/uL | NON [facility] | | | COUNT | | | LAB | | + + + + + + | NEUTROPHIL | 41.9 | 39 - 80 % | NON [facility] | | | % | | | LAB | | + + + + + + | LYMPHOCYTE | 50.1 (H) | 24 - 44 % | NON [facility] | | | % | | | LAB | | + + + + + + | MONOCYTE % | 0.7 | 0 - 12 % | NON [facility] | | | | | | LAB | | + + + + + + | EOS % | 5.4 | 0 - 6 % | NON [facility] | | | | | | LAB | | + + + + + + | BASO % | 1.9 | 0 - 2 % | NON [facility] | | | | | | LAB | | + + + + + + + + | Specimen | + + | Blood | + + + +---------+ + + | Performing | Address | City/State/Zipcode | Phone Number | | Organization | | | | + +---------+ + + | NON [facility] | | | | + +---------+ + + COMPLETE METABOLIC SET (NA,K,CL,CO2,BUN,CREAT,GLUC,CA,AST,ALT,BILI TOTAL,ALK PHOS,ALB,PROT TOTAL) (05/01/2018) + +-------+ + + + | Component | Value | Ref Range | Performed | Pathologist | | | | | At | Signature | + +-------+ + + + | GLUCOSE, | 94 | 70 - 100 mg/dL | NON [facility] | | | PLASMA | | | LAB | | | (LAB) | | | | | + +-------+ + + + | BUN, PLASMA | 17 | 6 - 23 mg/dL | NON [facility] | | | (LAB) | | | LAB | | + +-------+ + + + | CREATININE | 0.72 | 0.60 - 1.35 | NON [facility] | | | PLASMA | | mg/dL | LAB | | | (LAB) | | | | | + +-------+ + + + | TOTAL | 6.9 | 6.0 - 8.3 g/dL | NON [facility] | | | PROTEIN, | | | LAB | | | PLASMA | | | | | | (LAB) | | | | | + +-------+ + + + | ALBUMIN, | 4.1 | 3.5 - 5.0 g/dL | NON [facility] | | | PLASMA | | | LAB | | | (LAB) | | | | | + +-------+ + + + | CALCIUM, | 9.8 | 8.5 - 10.3 | NON [facility] | | | PLASMA | | mg/dL | LAB | | | (LAB) | | | | | + +-------+ + + + | BILIRUBIN | 0.6 | 0.0 - 1.2 mg/dL | NON [facility] | | | TOTAL | | | LAB | | + +-------+ + + + | ALK PHOS | 40 | 31 - 130 U/L | [facility] | | | | | | LAB | | + +-------+ + + + | AST(SGOT) | 17 | 13 - 39 U/L | [facility] | | | | | | LAB | | + +-------+ + + + | SODIUM, | 139 | 132 - 143 meq/L | NON [facility] | | | PLASMA | | | LAB | | | (LAB) | | | | | + +-------+ + + + | POTASSIUM, | 3.6 | 3.6 - 5.1 meq/L | NON [facility] | | | PLASMA | | | LAB | | | (LAB) | | | | | + +-------+ + + + | CHLORIDE, | 102 | 95 - 112 meq/L | NON [facility] | | | PLASMA | | | LAB | | | (LAB) | | | | | + +-------+ + + + | TOTAL CO2, | 25 | 19 - 31 meq/L | NON [facility] | | | PLASMA | | | LAB | | | (LAB) | | | | | + +-------+ + + + | ALT (SGPT) | 12 | 7 - 52 U/L | NON [facility] | | | | | | LAB | | + +-------+ + + + | ANION GAP | 15.6 | 7 - 21 | NON [facility] | | | | | | LAB | | + +-------+ + + + | ESTIMATED | 93 | ml/min | NON [facility] | | | GFR | | | LAB | | + +-------+ + + + | BUN/CREATIN | 23.6 | 6.0 - 28.6 | NON [facility] | | | INE RATIO | | | LAB | | + +-------+ + + + | GLOBULIN | 2.8 | 1.8 - 3.5 g/dl | NON [facility] | | | | | | LAB | | + +-------+ + + + | A/G RATIO | 1.5 | 1.1 - 2.4 | NON [facility] | | | | | | LAB | | + +-------+ + + + + + | Specimen | + + | Blood | + + + +---------+ + + | Performing | Address | City/State/Zipcode | Phone Number | | Organization | | | | + +---------+ + + | [facility] | | | | + +---------+ + + documented in this encounter Visit Diagnoses Not on filedocumented in this encounter"
--- OUTSIDE RECORDS SUMMARY | ~2019-01-30 | XMS | Encounter Summary ---
Demographics + + + | Address | [address] | | | [place] [address] | + + + | Home Phone [...] Author + + + | Author | [facility] | + + + | Organization | [facility] | + + + | Address | Unknown | + + + | Phone | Unavailable | + + + Support + + +---------+ + | Name | Relationship | Address | Phone | + + +---------+ + | Kika Cage | ECON | Unknown | | + + +---------+ + Care Team Providers + +------+ + | Care Ciaio Lumite Injector Name | Role | Phone | + +------+ + | Santo Gooden MD | PCP | | + +------+ + Encounter Details +--------+ + + + + | Date | Type | Department | Care Team | Description | +--------+ + + + + | 02/20/ | Pharmacy | Outpatient Retail | | | | 2017 | Visit | [facility] | | | | | | [address] | | | | | | [facility] | | | | | | [place], [place] | | | | | | [address] | | | +--------+ + + + [...] [place] | | | | | | [place] | | | | | | [address] | | | | | | [phone] | | | | | | | | +--------+ + + + + | 03/25/ | Office | Orthopedics | Lynda Basurto, | | | 2018 | Visit | | [address] | | | | | | [address] | | | | | | [place] | | | | | | [address] | | | | | | [phone] | | | | | | | | +--------+ + + + + | 03/25/ | Office | Hematology & | Sandra Patel MD | | | 2018 | Visit | Oncology | [address] | | | | | | [place] | | | | | | [address] | | | | | | [phone] | | | | | | | | +--------+ + + + + documented as of this encounter Visit Diagnoses Not on filedocumented in this encounter"
--- OUTSIDE RECORDS SUMMARY | ~2019-01-30 | XMS | Encounter Summary ---
Demographics + + + | Address | [address] | | | [place] [address] | + + + | Home Phone | | + + + | Preferred Language | Unknown | + + + | Marital Status | Single | + + + | Pentecostal Affiliation | CAT | + + + | Race | Unknown | + + + | Ethnic Group | Not or | + + + Author + + + | Author | [facility] | + + + | Organization | [facility] | + + + | Address | Unknown | + + + | Phone | Unavailable | + + + Support + + +---------+ + | Name | Relationship | Address | Phone | + + +---------+ + | Kika Cage | ECON | Unknown | | + + +---------+ + Care Team Providers + +------+ + | Care Medical Records Manager Name | Role | Phone | [...] | +--------+ + + + + | 01/24/ | Telephone | Hematology/Medical | Work, Social | Social Work Notes | | 2017 | | Oncology at [place] | | | | | | [facility] | | | | | | [address] | | | | | | Mailcode: [place] | | | | | | for Health and | | | | | | [facility] | | | | | | [place], [place] | | | | | | [address] | | | | | | [phone] | | | +--------+ + + + [...] [place] | | | | | | [address] | | | | | | [phone] | | | | | | | | +--------+ + + + + | 03/25/ | Office | Orthopedics | Lynda Basurto, | | | 2018 | Visit | | [address] | | | | | | [address] | | | | | | [place], [place] | | | | | | [address] | | | | | | [phone] | | | | | | | | +--------+ + + + + | 03/25/ | Office | Hematology & | Sandra Patel MD | | | 2019 | Visit | Oncology | [address] | | | | | | [facility] [place] | | | | | | [address] | | | | | | [phone] | | | | | | | | +--------+ + + + + documented as of this encounter Visit Diagnoses Not on filedocumented in this encounter"
--- OUTSIDE RECORDS SUMMARY | ~2019-01-30 | XMS | Encounter Summary ---
Demographics + + + | Address | [address] | | | [place] [address] | + + + | Home Phone [...] + + + | Author | [facility] | + + + | Organization | [facility] | + + + | Address | Unknown | + + + | Phone | Unavailable | + + + Support + + +---------+ + | Name | Relationship | Address | Phone | + + +---------+ + | Kika Cage | ECON | Unknown | | + + +---------+ + Care Team Providers + +------+ + | Care Cfo Name | Role | Phone | + [...] + + + + | 02/19/ | Hospital | [facility] [address] | Leighann Yost MD | | | 2018 - | Encounter | [facility] | [address] [facility] | | | | | Road Mailcode: | [facility] [address] | | | 02/23/ | | [id number] | [place], [place] | | | 2018 | | [place], | [address] | | | | | [place] [address] | [phone] | | | | | [phone] | | | +--------+ + + + [...] + + + | Blood Pressure | 130/83 | 02/23/2018 9:32 AM | | | | | PDT | | + + + + + | Pulse | 72 | 02/23/2018 9:32 AM | | | | | PDT | | + + + + + | Temperature | 36.6 C (97.9 F) | 02/23/2018 9:32 AM | | | | | PDT | | + + + + + | Respiratory Rate | 18 | 02/23/2018 1:12 PM | | | | | PDT | | + + + + + | Oxygen Saturation | 99% | 02/23/2018 9:32 AM | | | | | PDT | | + + + + + | Inhaled Oxygen | - | - | | | Concentration | | | | + + + + + | Weight | 138.9 kg (306 lb 3.5 | 02/22/2018 12:53 PM | | | | oz) | PDT | | + + + + + | Height | 172.7 cm (5' 8") | 02/19/2018 4:44 PM | | | | | PDT | | + + + + + | Body Mass Index | 46.56 | 02/19/2018 4:44 PM | | | | | PDT [...] documented as of this encounter Discharge Summaries Romeo Sky MD - 02/23/2018 1:06 PM PDT [facility] Discharge Summary Discharging Provider: ROMEO SKY MD Discharging Attending Physician: Greg Campos MD Hospital Stay: 4 day(s) PCP: Santo Gooden MD Admission Date: 02/19/2018 Discharge Date: 02/23/18 Hospital Stay: 4 day(s) Reason for Admission: High Dose Chemotherapy Principal Final Diagnosis: Synovial Sarcoma Additional Diagnoses: Left foot phantom pain Depression anxiety Procedures: Phong Hospital Course: # 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 Per Dr. Patel there is a risk of wound dehiscence with starting chemo, bu t the benefit of starting chemo outweighs the risk. Will cont to monitor wound closely. Baseline echo GLS:-18.4 % 3DLVEF:67.0 %. pt's tolerated chemotherapy with no s/sxs of encephalopathy, hematuria or n/v. Ortho evaluated stitches and will keep them in for now neulasta scheduled 02/25 @ 845am, labs and port care @ [facility] on 02/28/18, pt should make apt when she is in for neulasta. Sent request to venessa to arrange for fu @ [facility] for C2, the y will contact pt. Chemotherapy: C1D1 02/19/18 Ifos 2500mg/m2 with Mesna 2200mg in NaCl 0.9% for 2hrs q24hrs x 4doses Epirubicin 80mg (30mg/m2)q24hrs x 4doses Mesna 2200mg for 15minutes to be given 4hrs and 8hrs after the start of Ifosfamide Supportive care: Dexamethasone 20mg daily x 4doses Ondansetron 24mg daily x 4doses Olanzapine 5mg qhs. Added in for CINV prophy and as adjunct to celexa for depression/anxiet y, pt having a difficult time adjusting to dx. Lorazepam 0.5mg prn q24hrs, prochloparazine 10mg PO/IV q6hrs prn 1L NaCl 0.9% bolus follow by MIVF 125mL/hr. # Fertility: per Dr. Patel's note, patient reports infertility at baseline (tried for 8 yea rs), thus no preservation strategy indicated. Currently Mirena for endometriosis. # depression/Anxiety:uncontrolled. Olanzapine 5mg qhs. Added in for CINV prophy and as adjunct to celexa for depression/anxiet y, pt having a difficult time adjusting to dx. # LLE Stump: Per Dr. Patel there is a risk of wound dehiscence with starting chemo, but the benefit of starting chemo outweighs the risk. Will cont to monitor surgical wound closely. # stump pain/phantom pain:poor control. Pt just started on lyrica 02/17 by Ortho with plan to titrate up 150mg bid in 5-7days. Dr. Patel would like pt tojudicious use of oxycodone while on chemotherapy, an occasional dose of Tylenol or naproxen may be ok during chemothera py, but should be rare (due to antipyretic and anti-platelet effects, respectively. Her pain is poor control Will increase lyrica to 150mg bid for better pain control. - increased lyrica from 75mg to 150mg bid on 02/21 - Oxycodone 5-15mg q3hrs prn # allergies: cont with loratadine. # constipation prophy: - miralax daily - prn senna s bid F:PO/IVF w/ chemo E:monitor and replace prn N:regular diet Ppx:prophy enoxaparin: 40mg BID due to pt's wt. encouragedambulationtid. Pt instruc abhilash pt to Discontinue post op aspirin at time of discharge per Dr. Patel due to anticipated thrombocytopenia. Discharge Medications: Medication List START taking these medications dexamethasone 4 mg Tab Commonly known as: DECADRON Take 1 tablet by mouth once daily. Indications: Prevention of Chemotherapy-Induced Nausea a nd Vomiting Notes to patient: To prevent delayed nausea post chemotherapy. This medication can be stim ulating so it is best taken in AM or earlier in the day to prevent insomnia. lidocaine-prilocaine 2.5-2.5 % Crea Commonly known as: EMLA Apply to affected area as needed. Apply a thick layer to intact skin and cover with an occl usive dressing. Notes to patient: For port access. Apply as directed for port access. [facility] regarding any questions/concerns or further dosing of this medication. LORazepam 0.5 mg Tab Commonly known as: ATIVAN Take 1 tablet by mouth every six hours as needed for anxiety (2nd line for nausea/vomiting) . Notes to patient: For anxiety, nausea (2nd/3rd choice) and/or sleep. Sedating - avoid taki ng with other sedating medication due to cumulative effects. Use sparingly (try to avoid usi ng on a daily basis) as tolerance can develop quickly and will make the medication less effe ctive. If you find that you need frequent dosing please discuss with prescribing provider an d consider other therapeutic options. OLANZapine 5 mg Tab Commonly known as: ZYPREXA Take 1 tablet by mouth once daily at bedtime. Indications: Cancer Chemotherapy-Induced Naus ea and Vomiting, Depression Treatment Adjunct, anxiety and insomnia Notes to patient: To prevent delayed nausea and help with sleep. Can be sedating so it shine uld be taken at bedtime. Also may help with sleep and anxiety. ondansetron 8 mg Tab Commonly known as: ZOFRAN Take 1 tablet by mouth every twelve hours as needed (3rd line for nausea/vomiting). Notes to patient: For nausea. Can be constipating and may cause headache. May need to incr ease bowel regimen if taking this medication regularly. LEAST SEDATING as needed nausea medication prochlorperazine 10 mg Tab Commonly known as: COMPAZINE Take 1 tablet by mouth every six hours as needed (Give as first line agent for acute or del ayed nausea/vomiting). Max dose: 40 mg/day Notes to patient: 1st choice for nausea. May take 0.5 to 1 tab (5 to 10 mg) per dose. Can be sedating. Try to avoid taking with other sedating medication due to cumulative sedative e ffects. No more than 40 mg per day. CHANGE how you take these medications LYRICA 150 mg Cap Generic drug: pregabalin Take 1 capsule by mouth two times daily. Indications: Postoperative Acute Pain, neuropathy, phantom pain What changed: medication strength how much to take Notes to patient: For nerve pain. Take SCHEDULED. Works differently than opioid (oxycodone -type) medications. Over time and scheduled dosing it helps lessen nerve pain. NEW dose oxyCODONE (immediate release) 5 mg Tab Commonly known as: ROXICODONE Take 1 to 3 tablets by mouth every three hours as needed for moderate pain. Wean off soon and do not combine with other sedating meds like Clonazapam What changed: additional instructions CONTINUE taking these medications citalopram 40 mg Tab Commonly known as: CELEXA Take 40 mg by mouth once daily. Notes to patient: For mood/anxiety. Take as prescribed previously. Please contact prescri marion provider regarding questions concerning this medication. CLARITIN 10 mg Tab Generic drug: loratadine Take 10 mg by mouth once daily. Notes to patient: For pain related to growth factor administration as well as seasonal all ergies. Available [id number]. Regarding pain related to growth factor administration - start taking ONE day BEFORE AND co ntinue taking THREE days AFTER finishing growth factor medication. hydroCHLOROthiazide 25 mg Tab Commonly known as: HYDRODIURIL Take 25 mg by mouth once daily. Notes to patient: For blood pressure. Hold for SBP less than 100 or DBP less than 60. Cont act prescribing provider for further guidance if BP continue to be low regarding any dosage modifications. nystatin 100,000 unit/gram Powd Commonly known as: MYCOSTATIN Apply to affected area two times daily. Apply to candidal lesions until lesions have healed . Indications: skin infection, redness in pannus, skin folds Notes to patient: Topical agent. Apply as previously prescribed. Please contact [facility] physician regarding any questions/concerns or further dosing of this medication. polyethylene glycol 17 gram Pwpk Commonly known as: MIRALAX Mix 1 packet and take orally once daily. Take this medication while you are on narcotic marcos n medication. Hold for loose stool Indications: constipation Notes to patient: For constipation. Adjust dose to effect. May increase to twice or three times daily as needed to help facilitate movement. Best if mixed in chilled liquid. Over-the -counter. Alternatively consider [id number] sennosides (Senna) or bisacodyl tablets by mouth to help facilitate BM. Soft, daily BM desired. senna-docusate 8.6-50 mg Tab Commonly known as: SENOKOT S Take 2 tablets by mouth two times daily. Take this medication while you are on narcotic marcos n medication. Hold for loose stool Indications: constipation Notes to patient: For constipation. Adjust dose to effect. May increase up to 8 tablets pe r day (4 in AM/4 in PM). Soft, daily BM desired. Uuom-ogp-hoiwbht. Also consider over-the-co unter bisacodyl tablets and/or polyethylene glycol (Miralax) additionally to help facilitate BM. Soft, daily BM desired. STOP taking these medications acetaminophen 500 mg Tab Commonly known as: TYLENOL aspirin EC 325 mg Tbec clonazePAM 1 mg Tab Commonly known as: KLONOPIN gabapentin 300 mg Cap Commonly known as: NEURONTIN naproxen 500 mg Tab Commonly known as: NAPROSYN phentermine 37.5 mg Tab Rationale for Medication Changes: None Allergies: Allergies Allergen Reactions Demerol [Meperidine Hcl] Pruritus Morphine Pruritus Code Status: Full POLST completed: no Additional Instructions: Condition on Discharge Good Diet Regular Regular diet- There are no restrictions to your diet. You may eat or drink whatever you pr efer, though healthy food choices are recommended. Activity No activity restrictions Other Discharge Orders and Instructions Do not drive while taking narcotic pain medications. Drink at least 2 liters of fluid daily Call [facility] at or after hours and on weekends call paging ope rator at [phone] ask for almond paste molder doctor for Heme-Onc if you have any of the followi ng: Fever (temperature >/= 100.5) or shaking chills. Difficulty breathing or unusual shortness of breath. Excessive bleeding. Increased pain that is not relieved by pain medication. Persistent nausea or vomiting. SKIN CARE: Lubriderm lotion or Eucerin Cream- apply to skin twice a day as needed to treat dry skin Apply Sunscreen SPF 15 or greater to sun-exposed skin before exposure to direct sunlight o r outside activities. ACTIVITY: Walking will be your primary source of exercise. It is very important that you walk at leas t three times a day. These can be short walks that you can gradually increase over time as y our strength improves. The majority of time should be spent out of bed. It is ok to take nap s if you are tired, but alternate napping with activity. CONSTIPATION: It is very important to avoid constipation and straining while trying to have a bowel movem ent. There are several medications you can use to both prevent and relieve constipation. Yo u can use stool softeners (Colace a.k.a. Docusate Sodium) or laxatives (Senokot -stool softe ner + laxative; Miralax - laxative drink). Please work toward having a bowel movement every 1-2 days. It is also important to stay hydrated as this will also help your bowel function. PAIN: It is important to manage your pain so that you can increase your activity and sleep. You a re being sent home with a prescription for narcotic pain medication - please take as prescri bed. Follow Up: Future Appointments Provider Department Dept Phone Center 03/12/2018 8:30 AM HEM NURSE TAWANDA Hematology/Medical Oncology at [phone]/12/2018 9:30 AM Annie Gannon Hematology/Medical Oncology at [facility] [phone] HemOnc Discharge Physical Exam: Last 24 hour min/max Temp: 36.6 C (97.9 F) Temp Min: 36.6 C (97.9 F) Max: 36.6 C (97.9 F) Pulse: 72 Pulse Min: 72 Max: 72 Resp: 18 Resp Min: 18 Max: 18 BP: 130/83 BP Min: 130/83 Max: 130/83 SpO2: 99 % SpO2 Min: 99 % Max: 99 % Body mass index is 46.56 kg/m. General: adult female patient in [facility] Neuro: AOx3, Psych: pleasant, affect appropiate Skin: No rashes HEENT:oropharynx mucous membrane moist without lesions Chest: Clear to ascultation b/l; no wheezing, crackles CV: Regular rhythm rate, no murmur Abd: Normoactive bowel sounds, soft/Nontender/Nondistended , no hepatosplenomegaly, no ma sses Ext: no edema Lines: PAC accessed - NT, no erythema ROMEO SKY MD Hem/Onc Fellow [id number] Associated attestation - Greg Campos MD - 02/23/2018 9:36 PM PDTAttending attestatio n note: Tati Velásquez is a 32-year-old woman with a high risk synovial sarcoma for left foot for which she underwent primary resection because of rapid local progression infection, with a 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 Her primary sarcoma oncologist, Dr. Ana Maria Patel, started her on adjuvant chemotherapy, and she was hospitalized at this time with ifosfamide and Mesna times four doses with Epirubicin times four doses. Her main problem du ring this admission has been severe phantom pain in the distal left lower extremity which sanchez s proven difficult to control. She is currently on Lyrica as well as narcotic analgesics, wi th moderate control of the pain. She has now recovered adequately from this for cycle of treatment, and she is ready to be d ischarged from hospital today. Her post hospital course has been detailed in Dr. Sky s excellent discharge note. I personally took a history from the patient today and examined he r, and symptoms. I also reviewed her discharge plans with her in conjunction with Dr. Sky , and she is ready to move forward with discharging with her post hospital care. I discussed the case in detail with Dr. Sky, and he and I have agreed on her plan for shruthi thornton, in conjunction with her primary oncologist, Dr. Patel. I have also reviewed Dr. Stevenson vega s discharge note in detail. I attest to the accuracy and completeness of the note. I h naomie reviewed his discussion of the current history, physical findings, the plan following shruthi jacobrkhurram, and completely concur with what he this is my attestation that he has reviewed the case with me in preparing a thorough, accurate, and detailed discharge summary including [facility] GREG CAMPOS MD [address] [facility] Mailcode: [id number] [place] [address] documented in this encounter Medications at Time [...] documented as of this encounter Progress Notes Hayed Flores MD - 02/23/2018 8:30 AM PDT Orthopaedic Progress Note: S: pain well controlled. No drainage from wound O: Last Vitals: BP 119/65 | Pulse 66 | Temp 36.9 C (98.4 F) | RR 18 | Ht 1.727 m (5' 8") | Wt 138.9 kg (306 lb 3.5 oz) | SpO2 96% | BMI 46.56 kg/(m^2) 24 Hour Vital Min/Max: Systolic (24hrs), Av , Min:119 , Max:119 Diastolic (24hrs), Av, Min:65, Max:65 Pulse Min: 66 Max: 66 Temp Min: 36.9 C (98.4 F) Max: 36.9 C (98.4 F) Resp Min: 18 Max: 18 SpO2 Min: 96 % Max: 96 % Intake/Output Summary (Last 24 hours) at 02/23/18 0831 Last data filed at 02/23/18 0500 Gross per 24 hour Intake 5204 ml Output 8225 ml Net -3021 ml LLE: At the medial and lateral aspects of the wound there is some skin edge necrosis. Sutures in tact, skin well approximated. No drainage or erythema. Edema well controlled by wrap. 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 Her wound is not concerning for wound deh iscence or infection, however her stitches should remain in place until at least the middle of the coming week. These can be removed by a PCP if needed. She should otherwise follow up as scheduled. HAYDE FLORES MD Orthopaedics PGY-3 Pager: [phone] aSho joshua MD - 02/23/2018 8:17 AM PDTFormatting of this note might be different from the orig inal. INPATIENT PROGRESS NOTE Hospital Day:4 Author; MACIE COATS MD Interval Hx: No new issues Physical Exam: Last Vitals: BP 119/65 | Pulse 66 | Temp 36.9 C (98.4 F) | RR 18 | Ht 1.727 m (5' 8") | Wt 138.9 kg (306 lb 3.5 oz) | SpO2 96% | BMI 46.56 kg/(m^2) O2 Delivery Device: None (room air) (02/22/18 1014) 24 Hour Vital Min/Max: Systolic (24hrs), Av , Min:119 , Max:119 Diastolic (24hrs), Av, Min:65, Max:65Puls e Av Min: 66 Max: 66 Temp Av.9 C (98.4 F) Min: 36.9 C (98.4 F) Max: 36.9 C (98.4 F) Resp Av Min: 18 Max: 18 SpO2 Av % Min: 96 % Max: 96 % Intake/Output Summary (Last 24 hours) at 02/23/18 0817 Last data filed at 02/23/18 0500 Gross per 24 hour Intake 5204 ml Output 8225 ml Net -3021 ml edema in stump much improved mid incision intact, lateral and medial sections sealed but has some necrosis of up to 5 mm on posterior flap. Anterior flap okay. Assessment and Plan: Stable. wound still sealed. necrosis has not gotten worse. would still leave stitches. o vaibhav to d/c. should have wound checked again about 1 wk. Romeo Lee MD - 02/22/2018 7:35 AM PDT INPATIENT PROGRESS NOTE Hospital Day:3 Author; Romeo Sky MD Attending Physician: Greg Campos MD ID: Tati Cage is a 32 y.o. 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 Admitted fo r C1 Ifosfamide and Epirubicin. Interim History: No acute overnight events. Reports her phantom pain is about the same wit h the increase in her lyrica. No complaints of nightmares, altered mental status. She appear ed fatigued this morning. Had BM yesterday. ROS: Remainder of complete 10 points review of systems negative except as above. Physical Exam: Last Vitals: BP 100/57 | Pulse 77 | Temp 36.5 C (97.7 F) | RR 16 | Ht 1.727 m (5' 8") | Wt 140.7 kg (310 lb 3 oz) | SpO2 99% | BMI 47.16 kg/(m^2) 24 Hour Vital Min/Max: Systolic (24hrs), Av , Min:100 , Max:100 Diastolic (24hrs), Av, Min:57, Max:57 Pulse Min: 77 Max: 77 Temp Min: 36.5 C (97.7 F) Max: 36.5 C (97.7 F) Resp Min: 16 Max: 16 SpO2 Min: 99 % Max: 99 % Intake/Output Summary (Last 24 hours) at 02/22/18 0737 Last data filed at 02/22/18 0641 Gross per 24 hour Intake 5657.26 ml Output 6375 ml Net -717.74 ml General: adult female patient in NAD Neuro: AOx3, Psych: pleasant, affect appropiate Skin: No rashes HEENT:oropharynx mucous membrane moist without lesions Chest: Clear to ascultation b/l; no wheezing, crackles CV: Regular rhythm rate, no murmur Abd: Normoactive bowel sounds, soft/Nontender/Nondistended , no hepatosplenomegaly, no ma sses Ext: no edema Lines: PAC accessed - NT, no erythema Current Facility-Administered Medications Medication Dose Route Frequency Last Rate citalopram (CELEXA) tablet 40 mg 40 mg oral DAILY dexamethasone (DECADRON) tablet 20 mg 20 mg oral Q24H [START ON 02/23/2018] dexamethasone (DECADRON) tablet 4 mg 4 mg oral ONCE enoxaparin (LOVENOX) injection 40 mg 40 mg subcutaneous BID epiRUBICIN injection 80 mg 30 mg/m2 (Treatment Plan Recorded) intravenous Q24H hydroCHLOROthiazide (HYDRODIURIL) tablet 25 mg 25 mg oral DAILY ifosfamide (IFEX) 2,500 mg/m2 = 6,500 mg, mesna (MESNEX) 2,200 mg in NaCl 0.9 % IV 2,5 00 mg/m2 (Treatment Plan Recorded) intravenous Q24H Stopped (02/22/18 0030) loratadine (CLARITIN) tablet 10 mg 10 mg oral DAILY mesna (MESNEX) 2,200 mg in NaCl 0.9 % IV 850 mg/m2 (Treatment Plan Recorded) intraveno us Q24H Stopped (02/22/18 0250) mesna (MESNEX) 2,200 mg in NaCl 0.9 % IV 850 mg/m2 (Treatment Plan Recorded) intraveno us Q24H Stopped (02/22/18 0653) nystatin (MYCOSTATIN) powder topical BID OLANZapine (ZYPREXA) tablet 5 mg 5 mg oral HS ondansetron (ZOFRAN) tablet 24 mg 24 mg oral Q24H polyethylene glycol (MIRALAX) packet 17 g 1 packet oral DAILY pregabalin (LYRICA) capsule 150 mg 150 mg oral BID Current Facility-Administered Medications Medication Dose Route Frequency Last Rate heparin 10 unit/mL IV flush syringe 50 Units 50 Units intravenous PRN LORazepam (ATIVAN) tablet 0.5 mg 0.5 mg oral Q24H PRN magnesium sulfate in water IV (RTU) 4 g 4 g intravenous PRN magnesium sulfate IV 8 g 8 g intravenous PRN oxyCODONE (immediate release) (ROXICODONE) tablet 5-15 mg 5-15 mg oral Q3H PRN potassium chloride SR (K-DUR) tablet 40 mEq 40 mEq oral PRN potassium phosphate IV 30 mmol 30 mmol intravenous PRN Or potassium phosphate IV 40 mmol 40 mmol intravenous PRN prochlorperazine (COMPAZINE) injection 10 mg 10 mg intravenous Q6H PRN prochlorperazine (COMPAZINE) tablet 10 mg 10 mg oral Q6H PRN senna-docusate (SENOKOT S) 8.6-50 mg 2 tablet 2 tablet oral BID PRN sodium phosphate IV 30 mmol 30 mmol intravenous PRN sodium phosphate IV 40 mmol 40 mmol intravenous PRN Lab/X-ray findings: CBC with diff last 72 hours (or 3 results) Recent Labs 02/19/18 1423 WBC 7.1 HB 12.4 HCT 36.4 PLT 405* MONOPERC 7.6 BASOPERC 1.3 EOSPERC 4.2* Chemistries: Last 72 Hours (or 3 results): Recent Labs 02/19/18 1344 02/19/18 1428 NA -- 143 K -- 3.9 CL -- 106 BICARB -- 29 BUN -- 16 CR -- 0.9 GLU -- 88 CA -- 9.5 MG 2.3 -- PO4 3.7 -- Recent Labs 01/23/18 1448 02/19/18 1428 AST 34 28 ALT 36 26 TBILI 0.7 0.5 AP 68 46 ALB 4.0 3.5 TP 8.2* 7.2 Results for TATI CAGE ( ) as of 02/22/2018 07:40 Ref. Range 02/21/2018 17:57 WHITE CELLS Latest Ref Range: 0 - 5 /hpf <1 RED CELLS Latest Ref Range: 0 - 3 /hpf 0 NON-SQUAMOUS EPITH Latest Ref Range: None /hpf None SQUAMOUS EPITHELIAL Latest Ref Range: None /hpf Few (A) BACTERIA Latest Ref Range: None /hpf Few (A) MUCOUS Latest Ref Range: None /hpf None HYALINE CASTS Latest Ref Range: 0 - 2 /lpf 0 GRANULAR CASTS Latest Ref Range: 0 - 2 /lpf 0 CELLULAR CASTS Latest Ref Range: <=0 /lpf 0 AMORPHOUS CRYSTALS Latest Ref Range: None /hpf None CALCIUM OXALATE FLORENTINO Latest Ref Range: None /hpf None URIC ACID CRYSTALS Latest Ref Range: None /hpf None TRIPLE P04 CRYSTALS Latest Ref Range: None /hpf None YEAST (LAB) Latest Ref Range: None /hpf None TRICHOMONAS Latest Ref Range: None /hpf None Assessment and Plan: Tati Cage is a 32 y.o. 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 Patholo gy: synovial sarcoma with extensive acute inflammation, abscess, and necrosis with negative margins. Pt admitted for post op chemotherapy C1D1 Ifos/Epirubicin. 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 Per Dr. Patel there is a risk of wound dehiscence with starting chemo, but the benefit of starting chemo outweighs the risk. Will cont to monitor wound closely. Baseline echo GLS:-18.4 % 3DLVEF:67.0 %. pt's tolerating chemotherapy with no s/sxs of encephalopathy, hematuria or n/v. Will cristy nue with chemo as planned with close monitoring. Spoke with Dr. Simpson with Ortho regarding coming to look at wound to remove stitches. H fadumo spoke with Dr. Coats who feels that it is still a little too early. Ortho plans to round on pt 02/23 prior to discharge to evaluate the wound. Please do not discharge pt without not ifying Ortho first. neulasta scheduled 02/25 @ 845am, labs and port care @ [facility] on 02/28/18, pt should make apt when she is in for neulasta. Sent request to venessa to arrange for fu @ [facility] for C2, the y will contact pt. Chemotherapy: C1D1 02/19/18 Ifos 2500 mg/m2 with Mesna 2200 mg in NaCl 0.9% for 2hrs q24hrs x 4 doses Epirubicin 80mg (30 mg/m2) q24hrs x 4 doses Mesna 2200 mg for 15minutes to be given 4hrs and 8hrs after the start of Ifosfamide Supportive care: Dexamethasone 20mg daily x 4 doses Ondansetron 24mg daily x 4 doses Olanzapine 5mg qhs. Added in for CINV prophy and as adjunct to celexa for depression/anxiet y, pt having a difficult time adjusting to dx. Lorazepam 0.5mg prn q24hrs, prochloparazine 10 mg PO/IV q6hrs prn 1L NaCl 0.9% bolus follow by MIVF 125mL/hr. -cont to check daily UA for hematuria while getting Ifos, repeat UA if RBC >/=10 hold Ifos if UA RBC remains >10. Call Urology for bladder irrigation if pt is symptomatic or having gr oss hematuria. -cont to monitor closely for evidence of ifos neurotoxicity (somnolence, asterixis, confusi on, etc). Hold Ifos if pt having s/sxs of encephalopathy. # Fertility: per Dr. Patel's note, patient reports infertility at baseline (tried for 8 yea rs), thus no preservation strategy indicated. Currently Mirena for endometriosis. # depression/Anxiety: uncontrolled. Olanzapine 5mg qhs. Added in for CINV prophy and as adjunct to celexa for depression/anxiet y, pt having a difficult time adjusting to dx. Will get EKG to document baseline QTc # LLE Stump: Per Dr. Patel there is a risk of wound dehiscence with starting chemo, but the benefit of starting chemo outweighs the risk. Will cont to monitor surgical wound closely. # stump pain/phantom pain:poor control. Pt just started on lyrica 02/17 by Ortho with plan to titrate up 150mg bid in 5-7days. Dr. Patel would like pt to judicious use of oxycodone wh ile on chemotherapy, an occasional dose of Tylenol or naproxen may be ok during chemotherapy , but should be rare (due to antipyretic and anti-platelet effects, respectively. Her pain is poor control Will increase lyrica to 150mg bid for better pain control. - increase lyrica from 75mg to 150mg bid on 02/21. eRx to [facility]. - Oxycodone 5-15mg q3hrs prn # allergies: cont with loratadine. # constipation prophy: - miralax daily - prn senna s bid F: PO/IVF w/ chemo E: monitor and replace prn N: regular diet Ppx: prophy enoxaparin: 40mg BID due to pt's wt. encouraged ambulation tid. Pt instructed pt to Discontinue post op aspirin at time of discharge per Dr. Patel due to anticipated thro mbocytopenia. Dispo: Inpatient status for high risk chemotherapy, aggressive supportive care and close mo nitoring for toxicity. CODE: Full Case discuss with attending physician, Dr. Greg Campos, who agrees with the assessment an d plan as described above. 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 She underwent a distal amputation of the left foot due to rapid progression o f her disease, and she is here now for her first cycle of adjuvant chemotherapy ifosfamide a nd epirubicin. Her course has been complicated by severe phantom pain in the distal LLE for which she is on Lyrical, although without clinical benefit and control of the phantom pain t hus far. I personally took pertinent elements of the history during our bedside visit today, and I p ersonally performed a directed bedside physical examination to assess her current clinical status. I have also carefully reviewed 's progress note. I attest to the accuracy a nd completeness of Dr. Sky's note, and I concur with his report of the pertinent history and physical findings and to his review of the treatment plan. She is alert today, and only in distress from her continued phantom pain in the left distal LE with no other worrisome ad verse effects of her treatment. I agree with Dr. Sky's report of the clinical findings an d the plan in today's progress note. GREG CAMPOS MD [facility] [id number] [facility] Mailcode: [id number] [place] [address] Camryn Flynn PA-C - 02/21/2018 7:14 AM PDTFormatting of this note might be different f rom the original. INPATIENT PROGRESS NOTE Hospital Day:2 Author; CAMRYN FLYNN PA-C Attending Physician: Leighann Yost MD ID: Tati Cage is a 32 y.o. 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 Admitted fo r C1 Ifosfamide and Epirubicin. Interim History: No acute overnight events. Tati reports feeling more tired today, noticed a little shakiness with her fingers when pl aying on her phone. Pt has been taking more oxycodone here then at home for neuropathic and phantom pain. Tati reports pain starts to escalate late afternoon through the night, she is wondering if we could increase Lyrica or move up afternoon to earlier. Last bm was , starting to feel constipated agreeable to starting miralax today. Pt would like me to remind Dr. Basurto and Dr. Patel, requesting note to go back to work from Dr. Basurto, and from Dr. Patel a note to allow her to cont to work while getting treatment a nd a note for her mom who is her primary resident care technician. ROS: Remainder of complete 10 points review of systems negative except as above. Physical Exam: BP 123/66 | Pulse 73 | Temp 36.4 C (97.5 F) | RR 16 | Ht 1.727 m (5' 8") | Wt 140.7 kg (310 lb 3 oz) | SpO2 96% | BMI 47.16 kg/(m^2) Intake/Output Summary (Last 24 hours) at 02/21/18 0714 Last data filed at 02/21/18 0646 Gross per 24 hour Intake 6583.34 ml Output 4575 ml Net 2008.34 ml General: adult female patient in [facility] Neuro: AOx3, Psych: pleasant, affect appropiate Skin: No rashes HEENT:oropharynx mucous membrane moist without lesions Chest: Clear to ascultation b/l; no wheezing, crackles CV: Regular rhythm rate, no murmur Abd: Normoactive bowel sounds, soft/Nontender/Nondistended , no hepatosplenomegaly, no ma sses Ext: no edema Lines: PAC accessed - NT, no erythema Current Facility-Administered Medications Medication Dose Route Frequency Last Rate citalopram (CELEXA) tablet 40 mg 40 mg oral DAILY dexamethasone (DECADRON) tablet 20 mg 20 mg oral Q24H [START ON 02/23/2018] dexamethasone (DECADRON) tablet 4 mg 4 mg oral ONCE enoxaparin (LOVENOX) injection 40 mg 40 mg subcutaneous BID epiRUBICIN injection 80 mg 30 mg/m2 (Treatment Plan Recorded) intravenous Q24H hydroCHLOROthiazide (HYDRODIURIL) tablet 25 mg 25 mg oral DAILY ifosfamide (IFEX) 2,500 mg/m2 = 6,500 mg, mesna (MESNEX) 2,200 mg in NaCl 0.9 % IV 2,5 00 mg/m2 (Treatment Plan Recorded) intravenous Q24H Stopped (02/21/18 0120) loratadine (CLARITIN) tablet 10 mg 10 mg oral DAILY mesna (MESNEX) 2,200 mg in NaCl 0.9 % IV 850 mg/m2 (Treatment Plan Recorded) intraveno us Q24H Stopped (02/21/18 0443) mesna (MESNEX) 2,200 mg in NaCl 0.9 % IV 850 mg/m2 (Treatment Plan Recorded) intraveno us Q24H 2,200 mg (02/21/18 0646) nystatin (MYCOSTATIN) powder topical BID OLANZapine (ZYPREXA) tablet 5 mg 5 mg oral HS ondansetron (ZOFRAN) tablet 24 mg 24 mg oral Q24H polyethylene glycol (MIRALAX) packet 17 g 1 packet oral DAILY pregabalin (LYRICA) capsule 75 mg 75 mg oral BID Current Facility-Administered Medications Medication Dose Route Frequency Last Rate heparin 10 unit/mL IV flush syringe 50 Units 50 Units intravenous PRN LORazepam (ATIVAN) tablet 0.5 mg 0.5 mg oral Q24H PRN magnesium sulfate in water IV (RTU) 4 g 4 g intravenous PRN magnesium sulfate IV 8 g 8 g intravenous PRN oxyCODONE (immediate release) (ROXICODONE) tablet 5-15 mg 5-15 mg oral Q3H PRN potassium chloride SR (K-DUR) tablet 40 mEq 40 mEq oral PRN potassium phosphate IV 30 mmol 30 mmol intravenous PRN Or potassium phosphate IV 40 mmol 40 mmol intravenous PRN prochlorperazine (COMPAZINE) injection 10 mg 10 mg intravenous Q6H PRN prochlorperazine (COMPAZINE) tablet 10 mg 10 mg oral Q6H PRN senna-docusate (SENOKOT S) 8.6-50 mg 2 tablet 2 tablet oral BID PRN sodium phosphate IV 30 mmol 30 mmol intravenous PRN sodium phosphate IV 40 mmol 40 mmol intravenous PRN Lab/X-ray findings: CBC with diff last 72 hours (or 3 results) Recent Labs 02/19/18 1423 WBC 7.1 HB 12.4 HCT 36.4 PLT 405* MONOPERC 7.6 BASOPERC 1.3 EOSPERC 4.2* Chemistries: Last 72 Hours (or 3 results): Recent Labs 02/19/18 1344 02/19/18 1428 NA -- 143 K -- 3.9 CL -- 106 BICARB -- 29 BUN -- 16 CR -- 0.9 GLU -- 88 CA -- 9.5 MG 2.3 -- PO4 3.7 -- Liver Tests: Last 72 hours (or 3 results) Recent Labs 02/19/18 1428 AST 28 ALT 26 TBILI 0.5 AP 46 ALB 3.5 TP 7.2 Results for orders placed or performed during the hospital encounter of 02/20/18 URINE, MICROSCOPIC EXAM Result Value Ref Range RED CELLS 0 0 - 3 /hpf WHITE CELLS <1 0 - 5 /hpf BACTERIA None None /hpf YEAST (LAB) None None /hpf SQUAMOUS EPITHELIAL Few (A) None /hpf MUCOUS None None /hpf TRICHOMONAS None None /hpf NON-SQUAMOUS EPITH None None /hpf HYALINE CASTS 0 0 - 2 /lpf GRANULAR CASTS 0 0 - 2 /lpf CELLULAR CASTS 0 <=0 /lpf TRIPLE P04 CRYSTALS None None /hpf CALCIUM OXALATE FLORENTINO None None /hpf URIC ACID CRYSTALS None None /hpf AMORPHOUS CRYSTALS None None /hpf Assessment and Plan: Tati Cage is a 32 y.o. 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 Patholo gy: synovial sarcoma with extensive acute inflammation, abscess, and necrosis with negative margins. Pt admitted for post op chemotherapy C1D1 Ifos/Epirubicin. 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 Per Dr. Patel there is a risk of wound dehiscence with starting chemo, but the benefit of starting chemo outweighs the risk. Will cont to monitor wound closely. Baseline echo GLS:-18.4 % 3DLVEF:67.0 %. pt's tolerating chemotherapy with no s/sxs of encephalopathy, hematuria or n/v. Will cristy nue with chemo as planned with close monitoring. Spoke with Dr. Simpson with Ortho regarding coming to look at wound to remove stitches. Melinda fadumo spoke with Dr. Coats who feels that it is still a little too early. Ortho plans to round on pt 02/24 prior to discharge to evaluate the wound. Please do not discharge pt without not ifying Ortho first. neulasta scheduled 02/25 @ 845am, labs and port care @ on 02/28/18, pt should make apt when she is in for neulasta. Sent request to venessa to arrange for fu @ [facility] for C2, the y will contact pt. Chemotherapy: C1D1 02/19/18 Ifos 2500 mg/m2 with Mesna 2200 mg in NaCl 0.9% for 2hrs q24hrs x 4 doses Epirubicin 80mg (30 mg/m2) q24hrs x 4 doses Mesna 2200 mg for 15minutes to be given 4hrs and 8hrs after the start of Ifosfamide Supportive care: Dexamethasone 20mg daily x 4 doses Ondansetron 24mg daily x 4 doses Olanzapine 5mg qhs. Added in for CINV prophy and as adjunct to celexa for depression/anxiet y, pt having a difficult time adjusting to dx. Lorazepam 0.5mg prn q24hrs, prochloparazine 10 mg PO/IV q6hrs prn 1L NaCl 0.9% bolus follow by MIVF 125mL/hr. -cont to check daily UA for hematuria while getting Ifos, repeat UA if RBC >/=10 hold Ifos if UA RBC remains >10. Call Urology for bladder irrigation if pt is symptomatic or having gr oss hematuria. -cont to monitor closely for evidence of ifos neurotoxicity (somnolence, asterixis, confusi on, etc). Hold Ifos if pt having s/sxs of encephalopathy. # Fertility: per Dr. Patel's note, patient reports infertility at baseline (tried for 8 yea rs), thus no preservation strategy indicated. Currently Mirena for endometriosis. # depression/Anxiety: uncontrolled. Olanzapine 5mg qhs. Added in for CINV prophy and as adjunct to celexa for depression/anxiet y, pt having a difficult time adjusting to dx. Will get EKG to document baseline QTc # LLE Stump: Per Dr. Patel there is a risk of wound dehiscence with starting chemo, but the benefit of starting chemo outweighs the risk. Will cont to monitor surgical wound closely. # stump pain/phantom pain:poor control. Pt just started on lyrica 02/17 by Ortho with plan to titrate up 150mg bid in 5-7days. Dr. Patel would like pt to judicious use of oxycodone wh ile on chemotherapy, an occasional dose of Tylenol or naproxen may be ok during chemotherapy , but should be rare (due to antipyretic and anti-platelet effects, respectively. Her pain is poor control Will increase lyrica to 150mg bid for better pain control. - increase lyrica from 75mg to 150mg bid on 02/21. eRx to [facility]. - Oxycodone 5-15mg q3hrs prn # allergies: cont with loratadine. # constipation prophy: - miralax daily - prn senna s bid F: PO/IVF w/ chemo E: monitor and replace prn N: regular diet Ppx: prophy enoxaparin: 40mg BID due to pt's wt. encouraged ambulation tid. Pt instructed pt to Discontinue post op aspirin at time of discharge per Dr. Patel due to anticipated thro mbocytopenia. Dispo: Inpatient status for high risk chemotherapy, aggressive supportive care and close mo nitoring for toxicity. CODE: Full CAMRYN FLYNN PA-C Medical Oncology/Hematology pager #[phone] Associated attestation - Leighann Yost MD - 03/01/2018 10:29 PM PDTMedical Oncology Atten ding Note Pursuant to Federal Medicare billing regulations, I certify that I have reviewed and agree with the previously summarized HPI, PMH, FH, SH, and ROS as documented in the detailed note of DANIEL Flynn. I also performed a history and physical examination of the patient myself and and agree wit h the documented findings and plan of care. Plan: Tati Cage is a 32 y.o. yo female with high risk synovial sarcoma admitted for chemotherapy with ifos, epirubicin. Feeling well. Alert, pleasant, RRR. Labs reviewed. Cont inue chemotherapy and monitor for neuro and bladder toxicity. Rest per Irene note. documented in this encounter Plan of Treatment +--------+ + + + + | Date | Type | Specialty | Care Team | Description | +--------+ + + + + | 03/25/ | Appointment | Radiology | Sandra Patel MD | | | 2018 | | | [address] | | | | | | [place], [place] | | | | | | [address] | | | | | | [phone] | | | | | | | | +--------+ + + + + | 03/25/ | Office | Orthopedics | Lynda Basurto, | | | 2018 | Visit | | [address] | | | | | | [address] | | | | | | [place], [place] | | | | | | [address] | | | | | | [phone] | | | | | | | | +--------+ + + + + | 03/25/ | Office | Hematology & | Sandra Patel MD | | | 2019 | Visit | Oncology | [address] | | | | | | [place], [place] | | | | | | [address] | | | | | | [phone] | | | | | | | | +--------+ + + + + + +------+--------+ + + | Name | Type | Priori | Associated Diagnoses | Order Schedule | | | | ty | | | + +------+--------+ + + | URINE, MICROSCOPIC | Lab | Routin | | As Needed for 1 | | EXAM | | e | | Occurrences starting | | | | | | 02/19/2018 | + +------+--------+ + + | UA, DIPSTICK ONLY | Lab | Routin | | As Needed for 1 | | | | e | | Occurrences starting | | | | | | 02/19/2018 | + +------+--------+ + + | CULTURE, URINE BACTI | Lab | Routin | | As Needed for 1 | | | | e | | Occurrences starting | | | | | | 02/19/2018 | + +------+--------+ + + | URINE SCREEN FOR | Lab | Routin | | As Needed for 1 | | CULTURE | | e | | Occurrences starting | | | | | | 02/19/2018 | + +------+--------+ + + documented as of this encounter Procedures + +--------+ + + + | Procedure Name | Priori | Date/Time | Associated Diagnosis | Comments | | | ty | | | | + +--------+ + + + | URINE, MICROSCOPIC | Routin | 02/22/2018 | Synovial sarcoma | Results for this | | EXAM | e | 6:09 PM | (HCC) | procedure are in the | | | | PDT | | results section. | + +--------+ + + + | URINE, MICROSCOPIC | Routin | 02/21/2018 | Synovial sarcoma | Results for this | | EXAM | e | 5:57 PM | (HCC) | procedure are in the | | | | PDT | | results section. | + +--------+ + + + | URINE, MICROSCOPIC | Routin | 02/20/2018 | Synovial sarcoma | Results for this | | EXAM | e | 7:58 PM | (HCC) | procedure are in the | | | | PDT | | results section. | + +--------+ + + + | 12 LEAD ECG | Routin | 02/20/2018 | | Results for this | | | e | 10:20 AM | | procedure are in the | | | | PDT | | results section. | + +--------+ + + + documented in this encounter Results URINE, MICROSCOPIC EXAM (02/22/2018 6:09 PM PDT) + +---------+ + + + | Component | Value | Ref Range | Performed | Pathologist | | | | | At | Signature | + +---------+ + + + | RED CELLS | 1 | 0 - 3 /hpf | [facility] | | | | | | [facility] | | | | | | SERVICES, | | | | | | CORE | | + +---------+ + + + | WHITE CELLS | 1 | 0 - 5 /hpf | [facility] | | | | | | [facility]ORAT[facility] | | | | | | SERVICES, | | | | | | CORE | | + +---------+ + + + | BACTERIA | Few (A) | None /hpf | [...] +---------+ + + + | NON-SQUAMOU | Few (A) | None /hpf | [...] + | [facility] | [address] | [place] [address] | | | SERVICES, CORE | [address] | | | + + + + + URINE, MICROSCOPIC EXAM (02/21/2018 5:57 PM PDT) + +---------+ + + + | Component | Value | Ref Range | Performed | Pathologist | | | | | At | Signature | + +---------+ + + + | RED CELLS | 0 | 0 - 3 /hpf | [facility] | | | | | | LABORATORY | | | | | | SERVICES, | | | | | | CORE | | + +---------+ + + + | WHITE CELLS | <1 | 0 - 5 /hpf | [facility] | | | | | | LABORAT[facility] | | | | | | SERVICES, | | | | | | CORE | | + +---------+ + + + | BACTERIA | Few (A) | None /hpf | [...] [facility] | [address] | [place] [address] | | | SERVICES, CORE | [address] | | | + + + + + URINE, MICROSCOPIC EXAM (02/20/2018 7:58 PM PDT) + +---------+ + + + | Component | Value | Ref Range | Performed | Pathologist | | | | | At | Signature | + +---------+ + + + | RED CELLS | 0 | 0 - 3 /hpf | [facility] | | | | | | LABORAT[facility] | | | | | | SERVICES, | | | | | | CORE | | + +---------+ + + + | WHITE CELLS | <1 | 0 - 5 /hpf | [facility] [...] | + + + + + | [facility] | [address] | [place] [address] | | | SERVICES, CORE | [address] | | | + + + + + 12 LEAD ECG (02/20/2018 10:20 AM PDT) + + + + + + | Component | Value | Ref Range | Performed | Pathologist | | | | | At | Signature | + + + + + + | VENTRICULAR | 72 | bpm | [facility] | | | RATE | | | OF | | | | | | CARDIOLOGY | | + + + + + + | ATRIAL RATE | 72 | ms | [facility] | | | | | | OF | | | | | | CARDIOLOGY | | + + + + + + | P-R | 160 | ms | [facility] | | | INTERVAL | | | OF | | | | | | CARDIOLOGY | | + + + + + + | P AXIS | 48 | deg | [facility] | | | | | | OF | | | | | | CARDIOLOGY | | + + + + + + | QRS | 97 | ms | [facility] | | | DURATION | | | OF | | | | | | CARDIOLOGY | | + + + + + + | QT | 425 | ms | [facility] | | | | | | OF | | | | | | CARDIOLOGY | | + + + + + + | QTCB | 465 | ms | [facility] | | | | | | OF | | | | | | CARDIOLOGY | | + + + + + + | R AXIS | -11 | deg | [facility] | | | | | | OF | | | | | | CARDIOLOGY | | + + + + + + | T AXIS | 10 | deg | [facility] | | | | | | OF | | | | | | CARDIOLOGY | | + + + + + + | ECG | Sinus rhythm- NORMAL ECG | | [facility] | | | IMPRESSION | - | | OF | | | | | | CARDIOLOGY | | + + + + + + | ECG | Electronically signed | | [facility] | | | IMPRESSION | by: EMIL DURAN | | OF | | | | 02-20-2018 12:01:05 | | CARDIOLOGY | | + + + + + + + + | Specimen | + + | | + + + + + | Narrative | Performed At | + + + | | | + + + + + + + + | Performing | Address | City/State/Zipcode | Phone Number | | Organization | | | | + + + + + | [facility] | [address] | [place], [place] | | | CARDIOLOGY | [address] | [address] | | + + + + + documented in this encounter Visit Diagnoses + + | Diagnosis | + + | 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, site unspecified | + + documented in this encounter Administered Medications + + + +------+------+------+ | Medication Order | MAR | Action | Dose | Rate | Site | | | Action | Date | | | | + + + +------+------+------+ | alteplase (CATHFLO ACTIVASE) | Line | 02/20/20 | 2 mg | | | | injection 2 mg 2 mg, | Lock | 18 6:43 | | | | | Intracatheter, NEEDED, 2 | Instille | PM PDT | | | | | doses, Starting 02/19/18 at | d | | | | | | 1709, Until Sat02/19/18 at 2043, | | | | | | | Catheter patency | | | | | | + + + +------+------+------+ + + +------+---+---+ | Line Lock Instilled | 02/20/20 | 2 mg | | | | | 18 6:42 | | | | | | PM PDT | | | | + + +------+---+---+ +---+---+ | | | +---+---+ + + + +------+---+---+ | alteplase (CATHFLO ACTIVASE) | Line | 02/21/20 | 2 mg | | | | injection 2 mg 2 mg, | Lock | 18 12:16 | | | | | Intracatheter, ONCE, 1 dose, Wed | Instille | AM PDT | | | | | 02/19/18 at 2315 | d | | | | | + + + +------+---+---+ +---+---+ | | | +---+---+ + +-------+ +-------+---+---+ | citalopram (CELEXA) tablet 40 | Given | 02/23/20 | 40 mg | | | | mg 40 mg, oral, DAILY, First | | 18 8:56 | | | | | dose on Sat02/19/18 at 1999, | | PM PDT | | | | | Until Discontinued | | | | | | + +-------+ +-------+---+---+ +-------+ +-------+---+---+ | Given | 02/22/20 | 40 mg | | | | | 18 8:49 | | | | | | PM PDT | | | | +-------+ +-------+---+---+ | Given | 02/21/20 | 40 mg | | | | | 18 8:17 | | | | | | PM PDT | | | | +-------+ +-------+---+---+ +---+---+ | | | +---+---+ + +-------+ +-------+---+---+ | dexamethasone (DECADRON) tablet | Given | 02/23/20 | 20 mg | | | | 20 mg 20 mg, oral, EVERY 24 | | 18 11:43 | | | | | HOURS, 4 doses, First dose on Wed | | AM PDT | | | | | 02/19/18 at 2000, Last dose on | | | | | | | 02/22/18 at 1200 | | | | | | + +-------+ +-------+---+---+ +-------+ +-------+---+---+ | Given | 02/22/20 | 20 mg | | | | | 18 1:05 | | | | | | PM PDT | | | | +-------+ +-------+---+---+ | Given | 02/21/20 | 20 mg | | | | | 18 1:35 | | | | | | PM PDT | | | | +-------+ +-------+---+---+ +---+---+ | | | +---+---+ + +-------+ +------+---+---+ | dexamethasone (DECADRON) tablet | Given | 02/24/20 | 4 mg | | | | 4 mg 4 mg, oral, ONCE, 1 dose, | | 18 9:34 | | | | | 02/23/18 at 0800 | | AM PDT | | | | + +-------+ +------+---+---+ +---+---+ | | | +---+---+ + +-------+ +-------+---+---------+ | enoxaparin (LOVENOX) injection | Given | 02/24/20 | 40 mg | | Abdomen | | 40 mg 40 mg, subcutaneous, TWICE | | 18 9:35 | | | | | DAILY, First dose on Sat02/19/18 | | AM PDT | | | | | at 2100, Until Discontinued | | | | | | + +-------+ +-------+---+---------+ +-------+ +-------+---+---------+ | Given | 02/23/20 | 40 mg | | Abdomen | | | 18 8:56 | | | | | | PM PDT | | | | +-------+ +-------+---+---------+ | Given | 02/23/20 | 40 mg | | Abdomen | | | 18 10:21 | | | | | | AM PDT | | | | +-------+ +-------+---+---------+ +---+---+ | | | +---+---+ + +---------+ +-------+---+---+ | epiRUBICIN injection 80 mg 80 | New Bag | 02/23/20 | 80 mg | | | | mg (rounded from 78 mg = 30 mg/m2 | | 18 10:22 | | | | | | | PM PDT | | | | | 2.6 m2 Treatment plan recorded | | | | | | | BSA), intravenous, EVERY 24 | | | | | | | HOURS, 4 doses, First dose on Wed | | | | | | | 02/19/18 at 2100, Last dose on | | | | | | | 02/22/18 at 2300 | | | | | | + +---------+ +-------+---+---+ +---------+ +-------+---+---+ | New Bag | 02/22/20 | 80 mg | | | | | 18 10:06 | | | | | | PM PDT | | | | +---------+ +-------+---+---+ | New Bag | 02/21/20 | 80 mg | | | | | 18 10:57 | | | | | | PM PDT | | | | +---------+ +-------+---+---+ +---+---+ | | | +---+---+ + +-------+ + +---+---+ | heparin 10 unit/mL IV flush | Given | 02/23/20 | 50 Units | | | | syringe 50 Units 50 Units, | | 18 1:21 | | | | | intravenous, NEEDED, Starting | | PM PDT | | | | | Bettie 02/20/18 at 0218, Until Sun | | | | | | | 02/23/18 at 1927, line patency | | | | | | + +-------+ + +---+---+ +-------+ + +---+---+ | Given | 02/21/20 | 50 Units | | | | | 18 8:33 | | | | | | AM PDT | | | | +-------+ + +---+---+ | Given | 02/21/20 | 50 Units | | | | | 18 8:24 | | | | | | AM PDT | | | | +-------+ + +---+---+ +---+---+ | | | +---+---+ + +-------+ +-------+---+---+ | heparin 100 unit/mL IV flush | Given | 02/24/20 | 500 | | | | 500 Units 500 Units, | | 18 11:08 | Units | | | | intravenous, NEEDED, Starting | | AM PDT | | | | | 02/23/18 at 1049, Until Sun | | | | | | | 02/23/18 at 1927, deaccessing | | | | | | | line/port | | | | | | + +-------+ +-------+---+---+ +-------+ +-------+---+---+ | Given | 02/24/20 | 500 | | | | | 18 11:07 | Units | | | | | AM PDT | | | | +-------+ +-------+---+---+ +---+---+ | | | +---+---+ + +-------+ +-------+---+---+ | hydroCHLOROthiazide | Given | 02/24/20 | 25 mg | | | | (HYDRODIURIL) tablet 25 mg 25 | | 18 9:34 | | | | | mg, oral, DAILY, First dose on | | AM PDT | | | | | 02/19/18 at 2000, Until | | | | | | | Discontinued | | | | | | + +-------+ +-------+---+---+ +-------+ +-------+---+---+ | Given | 02/23/20 | 25 mg | | | | | 18 10:21 | | | | | | AM PDT | | | | +-------+ +-------+---+---+ | Given | 02/22/20 | 25 mg | | | | | 18 9:01 | | | | | | AM PDT | | | | +-------+ +-------+---+---+ +---+---+ | | | +---+---+ + +---------+ + +-------+---+ | ifosfamide (IFEX) 2,500 mg/m2 = | New Bag | 02/23/20 | 6,500 mg | 250 | | | 6,500 mg, mesna (MESNEX) 2,200 | | 18 10:22 | | mL/hr | | | mg in NaCl 0.9 % IV 6,500 mg | | PM PDT | | | | | (2,500 mg/m2 | | | | | | | 2.6 m2 Treatment plan recorded | | | | | | | BSA), intravenous, Administer | | | | | | | over 2 Hours, EVERY 24 HOURS, 4 | | | | | | | doses, First dose on Sat02/19/18 | | | | | | | at 2100, Last dose on Sat02/22/18 | | | | | | | at 2300, Per [facility] Committee | | | | | | | authorization, dose | | | | | | | standardization has been approved | | | | | | | for this order. Mesna dose | | | | | | | changed from 2210mg (= | | | | | | | 850mg/m2/dose) to 2200mg HIGH | | | | | | | ALERT MEDICATION-CHEMOTHERAPY | | | | | | | Irritant. Refrigerate., | | | | | | + +---------+ + +-------+---+ +---------+ + +-------+---+ | New Bag | 02/22/20 | 6,500 mg | 250 | | | | 18 10:05 | | mL/hr | | | | PM PDT | | | | +---------+ + +-------+---+ | New Bag | 02/21/20 | 6,500 mg | 250 | | | | 18 10:56 | | mL/hr | | | | PM PDT | | | | +---------+ + +-------+---+ +---+---+ | | | +---+---+ + +-------+ +-------+---+---+ | loratadine (CLARITIN) tablet 10 | Given | 02/24/20 | 10 mg | | | | mg 10 mg, oral, DAILY, First | | 18 9:34 | | | | | dose on Sat02/19/18 at 1999, | | AM PDT | | | | | Until Discontinued | | | | | | + +-------+ +-------+---+---+ +-------+ +-------+---+---+ | Given | 02/23/20 | 10 mg | | | | | 18 10:21 | | | | | | AM PDT | | | | +-------+ +-------+---+---+ | Given | 02/22/20 | 10 mg | | | | | 18 9:01 | | | | | | AM PDT | | | | +-------+ +-------+---+---+ + +---+ | | | + +---+ | LORazepam (ATIVAN) tablet 0.5 | | | mg 0.5 mg, oral, EVERY 24 HOURS | | | NEEDED, Starting Sat02/19/18 | | | at 1999, Until 02/23/18 at | | | 1927, anxiety premedication for | | | chemo | | + +---+ | | | + +---+ + +-------+ +------+---+---+ | LORazepam (ATIVAN) tablet 1 mg | Given | 02/20/20 | 1 mg | | | | 1 mg, oral, ONCE, 1 dose, Sat | | 18 6:06 | | | | | 18 at 1830 | | PM PDT | | | | + +-------+ +------+---+---+ + +---+ | | | + +---+ | magnesium sulfate in water IV | | | (RTU) 4 g 4 g, intravenous, | | | NEEDED, Starting Sat02/19/18 at | | | 1657, Until 02/23/18 at 1927, | | | Mg level 1.3-1.6 mg/dL | | + +---+ | | | + +---+ | magnesium sulfate IV 8 g 8 g, | | | intravenous, NEEDED, Starting | | | 02/19/18 at 1657, Until Sun | | | 02/23/18 at 1927, Mg level less | | | than or equal to 1.2 mg/dL | | + +---+ | | | + +---+ + +---------+ + +-------+---+ | mesna (MESNEX) 2,200 mg in NaCl | New Bag | 02/24/20 | 2,200 mg | 488 | | | 0.9 % IV 2,200 mg (rounded from | | 18 2:45 | | mL/hr | | | 2,210 mg = 850 mg/m2 | | AM PDT | | | | | 2.6 m2 Treatment plan recorded | | | | | | | BSA), intravenous, Administer | | | | | | | over 15 Minutes, EVERY 24 HOURS, | | | | | | | 4 doses, First dose on Sat | | | | | | | 02/20/18 at 0100, Last dose on Sat | | | | | | | 02/23/18 at 0300, Administer 4 | | | | | | | hours after the start of | | | | | | | Ifosfamide., | | | | | | + +---------+ + +-------+---+ +---------+ + +-------+---+ | New Bag | 02/23/20 | 2,200 mg | 488 | | | | 18 2:34 | | mL/hr | | | | AM PDT | | | | +---------+ + +-------+---+ | New Bag | 02/22/20 | 2,200 mg | 488 | | | | 18 3:17 | | mL/hr | | | | AM PDT | | | | +---------+ + +-------+---+ +---+---+ | | | +---+---+ + +---------+ + +-------+---+ | mesna (MESNEX) 2,200 mg in NaCl | New Bag | 02/24/20 | 2,200 mg | 488 | | | 0.9 % IV 2,200 mg (rounded from | | 18 6:35 | | mL/hr | | | 2,210 mg = 850 mg/m2 | | AM PDT | | | | | 2.6 m2 Treatment plan recorded | | | | | | | BSA), intravenous, Administer | | | | | | | over 15 Minutes, EVERY 24 HOURS, | | | | | | | 4 doses, First dose on Bettie | | | | | | | 02/20/18 at 0500, Last dose on Sat | | | | | | | 02/23/18 at 0700, Administer 8 | | | | | | | hours after the start of | | | | | | | Ifosfamide, | | | | | | + +---------+ + +-------+---+ +---------+ + +-------+---+ | New Bag | 02/23/20 | 2,200 mg | 488 | | | | 18 6:37 | | mL/hr | | | | AM PDT | | | | +---------+ + +-------+---+ | New Bag | 02/22/20 | 2,200 mg | 488 | | | | 18 6:46 | | mL/hr | | | | AM PDT | | | | +---------+ + +-------+---+ +---+---+ | | | +---+---+ + +-------+ +---+---+---+ | nystatin (MYCOSTATIN) powder | Given | 02/22/20 | | | | | topical, TWICE DAILY, First dose | | 18 9:04 | | | | | on 02/19/18 at 2100, Until | | AM PDT | | | | | Discontinued | | | | | | + +-------+ +---+---+---+ + + +---+---+---+ | Pt Administered | 02/21/20 | | | | | | 18 8:17 | | | | | | PM PDT | | | | + + +---+---+---+ | Pt Administered | 02/20/20 | | | | | | 18 10:53 | | | | | | PM PDT | | | | + + +---+---+---+ +---+---+ | | | +---+---+ + +-------+ +------+---+---+ | OLANZapine (ZYPREXA) tablet 5 | Given | 02/23/20 | 5 mg | | | | mg 5 mg, oral, AT BEDTIME, First | | 18 8:56 | | | | | dose on Sat02/19/18 at 2200, | | PM PDT | | | | | Until Discontinued | | | | | | + +-------+ +------+---+---+ +-------+ +------+---+---+ | Given | 02/22/20 | 5 mg | | | | | 18 8:51 | | | | | | PM PDT | | | | +-------+ +------+---+---+ | Given | 02/21/20 | 5 mg | | | | | 18 9:23 | | | | | | PM PDT | | | | +-------+ +------+---+---+ +---+---+ | | | +---+---+ + +-------+ +-------+---+---+ | ondansetron (ZOFRAN) tablet 24 | Given | 02/23/20 | 24 mg | | | | mg 24 mg, oral, EVERY 24 HOURS, | | 18 9:25 | | | | | 4 doses, First dose on Wed | | PM PDT | | | | | 02/19/18 at 2000, Last dose on Sat | | | | | | | 02/22/18 at 2200 | | | | | | + +-------+ +-------+---+---+ +-------+ +-------+---+---+ | Given | 02/22/20 | 24 mg | | | | | 18 8:49 | | | | | | PM PDT | | | | +-------+ +-------+---+---+ | Given | 02/21/20 | 24 mg | | | | | 18 9:23 | | | | | | PM PDT | | | | +-------+ +-------+---+---+ +---+---+ | | | +---+---+ + +-------+ +-------+---+---+ | oxyCODONE (immediate release) | Given | 02/24/20 | 10 mg | | | | (ROXICODONE) tablet 5-15 mg 5-15 | | 18 1:12 | | | | | mg, oral, EVERY 3 HOURS | | PM PDT | | | | | NEEDED, Starting 02/19/18 at | | | | | | | 1803, Until 02/23/18 at 1927, | | | | | | | moderate pain | | | | | | + +-------+ +-------+---+---+ +-------+ +-------+---+---+ | Given | 02/24/20 | 10 mg | | | | | 18 9:49 | | | | | | AM PDT | | | | +-------+ +-------+---+---+ | Given | 02/23/20 | 10 mg | | | | | 18 8:56 | | | | | | PM PDT | | | | +-------+ +-------+---+---+ +---+---+ | | | +---+---+ + +-------+ +------+---+---+ | polyethylene glycol (MIRALAX) | Given | 02/23/20 | 17 g | | | | packet 17 g 17 g (1 packet), | | 18 11:41 | | | | | oral, DAILY, First dose on Sat | | AM PDT | | | | | 02/19/18 at 1999, Until | | | | | | | Discontinued | | | | | | + +-------+ +------+---+---+ +-------+ +------+---+---+ | Given | 02/22/20 | 17 g | | | | | 18 10:00 | | | | | | AM PDT | | | | +-------+ +------+---+---+ +---+---+ | | | +---+---+ + +-------+ +------+---+---+ | polyethylene glycol (MIRALAX) | Given | 02/22/20 | 17 g | | | | packet 17 g 17 g, oral, ONCE, 1 | | 18 8:51 | | | | | dose, 02/21/18 at 2115 | | PM PDT | | | | + +-------+ +------+---+---+ + +---+ | | | + +---+ | potassium chloride SR (K-DUR) | | | tablet 40 mEq 40 mEq, oral, | | | NEEDED, Starting Sat02/19/18 at | | | 1657, Until 02/23/18 at 192, | | | potassium level 3-3.4 mmol/L | | + +---+ | | | + +---+ | potassium phosphate IV 30 mmol | | | 30 mmol, intravenous, NEEDED, | | | Starting Sat02/19/18 at 1657, | | | Until 02/23/18 at 1927, | | | Potassium less than or equal to | | | 3.4 mmol/L AND Phosphate less | | | than or equal to 2 mg/dL. | | + +---+ | | | + +---+ | potassium phosphate IV 40 mmol | | | 40 mmol, intravenous, NEEDED, | | | Starting Sat02/19/18 at 1657, | | | Until 02/23/18 at 1927, | | | Potassium less than or equal to | | | 2.9 mmol/L AND Phosphate less | | | than or equal to 1.5 mg/dL. | | + +---+ | | | + +---+ + +-------+ +--------+---+---+ | pregabalin (LYRICA) capsule 150 | Given | 02/24/20 | 150 mg | | | | mg 150 mg, oral, TWICE DAILY, | | 18 9:34 | | | | | First dose on Sat02/21/18 at | | AM PDT | | | | | 1615, Until Discontinued | | | | | | + +-------+ +--------+---+---+ +-------+ +--------+---+---+ | Given | 02/23/20 | 150 mg | | | | | 18 5:07 | | | | | | PM PDT | | | | +-------+ +--------+---+---+ | Given | 02/23/20 | 150 mg | | | | | 18 10:21 | | | | | | AM PDT | | | | +-------+ +--------+---+---+ +---+---+ | | | +---+---+ + +-------+ +-------+---+---+ | pregabalin (LYRICA) capsule 75 | Given | 02/22/20 | 75 mg | | | | mg 75 mg, oral, TWICE DAILY, | | 18 9:00 | | | | | First dose on Sat02/19/18 at | | AM PDT | | | | | 2100, Until Discontinued | | | | | | + +-------+ +-------+---+---+ +-------+ +-------+---+---+ | Given | 02/21/20 | 75 mg | | | | | 18 8:17 | | | | | | PM PDT | | | | +-------+ +-------+---+---+ | Given | 02/21/20 | 75 mg | | | | | 18 8:56 | | | | | | AM PDT | | | | +-------+ +-------+---+---+ + +---+ | | | + +---+ | prochlorperazine (COMPAZINE) | | | injection 10 mg 10 mg, | | | intravenous, EVERY 6 HOURS | | | NEEDED, Starting 02/19/18 at | | | 1727, Until 02/23/18 at 1927, | | | Give as first line agent for | | | acute or delayed nausea/vomiting | | | if unable to take PO | | + +---+ | | | + +---+ + +-------+ +-------+---+---+ | prochlorperazine (COMPAZINE) | Given | 02/24/20 | 10 mg | | | | tablet 10 mg 10 mg, oral, EVERY | | 18 9:49 | | | | | 6 HOURS NEEDED, Starting Wed | | AM PDT | | | | | 02/19/18 at 1727, Until Sun | | | | | | | 02/23/18 at 1927, Give as first | | | | | | | line agent for acute or delayed | | | | | | | nausea/vomiting | | | | | | + +-------+ +-------+---+---+ +---+---+ | | | +---+---+ + +---------+ + +---+---+ | sodium chloride 0.9% IV | New Bag | 02/20/20 | 1,000 mL | | | | infusion 1,000 mL, intravenous, | | 18 9:46 | | | | | ONCE, 1 dose, 02/19/18 at 1730 | | PM PDT | | | | + +---------+ + +---+---+ +---+---+ | | | +---+---+ + +---------+ +-------+-------+---+ | sodium chloride 0.9% IV | New Bag | 02/24/20 | 125 | 125 | | | infusion 125 mL/hr, intravenous, | | 18 9:48 | mL/hr | mL/hr | | | CONTINUOUS, Starting 02/19/18 | | AM PDT | | | | | at 1930, Until 02/23/18 at | | | | | | | 1927 | | | | | | + +---------+ +-------+-------+---+ + + +-------+-------+---+ | Rate/Dose Verify | 02/24/20 | 125 | 125 | | | | 18 5:00 | mL/hr | mL/hr | | | | AM PDT | | | | + + +-------+-------+---+ | New Bag | 02/24/20 | 125 | 125 | | | | 18 12:49 | mL/hr | mL/hr | | | | AM PDT | | | | + + +-------+-------+---+ + +---+ | | | + +---+ | sodium phosphate IV 30 mmol 30 | | | mmol, intravenous, NEEDED, | | | Starting 02/19/18 at 1657, | | | Until 02/23/18 at 1927, | | | Administer for sodium level less | | | than 148 mmol/L and phosphate | | | level 1.6-2 mg/dL. | | + +---+ | | | + +---+ | sodium phosphate IV 40 mmol 40 | | | mmol, intravenous, NEEDED, | | | Starting 02/19/18 at 1657, | | | Until 02/23/18 at 1927, | | | Administer for sodium level less | | | than 148 mmol/L and phosphate | | | level less than or equal to 1.5 | | | mg/dL. | | + +---+ | | | + +---+ documented in this encounter
--- OUTSIDE RECORDS SUMMARY | ~2019-01-30 | XMS | Encounter Summary ---
Demographics + + + | Address | [address] | | | [place] [address] | + + + | Home Phone [...] + + + | Author | [facility] | + + + | Organization | [facility] | + + + | Address | Unknown | + + + | Phone | Unavailable | + + + Support + + +---------+ + | Name | Relationship | Address | Phone | + + +---------+ + | Kika Cage | ECON | Unknown | | + + +---------+ + Care Team Providers + +------+ + | Care Rn Radiation Oncology Name | Role | Phone | + [...] | 2018 | on | Oncology at [facility] | | | | | | [address] | | | | | | Mailcode: [facility] | | | | | | [facility] and | | | | | | [facility] | | | | | | [place], [place] | | | | | | [address] | | | | | | [phone] | | | +--------+ + + + [...] [address] | | | | | | [place], [place] | | | | | | [address] | | | | | | [phone] | | | | | | | | +--------+ + + + + | 03/25/ | Office | Orthopedics | Rosy BasurtoRegiotto, | | | 2018 | Visit | | [address] | | | | | | [address] | | | | | | [facility] [place] | | | | | | [address] | | | | | | [phone] | | | | | | | | +--------+ + + + + | 03/25/ | Office | Hematology & | Sandra Patel MD | | | 2018 | Visit | Oncology | [address] | | | | | | [place], [place] | | | | | | [address] | | | | | | [phone] | | | | | | | | +--------+ + + + + documented as of this encounter Visit Diagnoses Not on filedocumented in this encounter"
--- OUTSIDE RECORDS SUMMARY | ~2019-01-30 | XMS | Encounter Summary ---
Demographics + + + | Address | [address] | | | [place] [address] | + + + | Home Phone | | + + + | Preferred Language | Unknown | + + + | Marital Status | Single | + + + | Druze Affiliation | CAT | + + + | Race | Unknown | + + + | Ethnic Group | Not or | + + + Author + + + | Author | [facility] | + + + | Organization | [facility] | + + + | Address | Unknown | + + + | Phone | Unavailable | + + + Support + + +---------+ + | Name | Relationship | Address | Phone | + + +---------+ + | Kika Cage | ECON | Unknown | | + + +---------+ + Care Team Providers + +------+ + | Care Head Turning Machine Operator Name | Role | Phone [...] | Synovial | Sandra Schmitt MD | [facility] [address] | | | | | sarcoma | [address] | [address] | | | | | (HCC) | Ave | [facility] | | | | | Procedures | [place], [place] | Road | | | | | [place] | [address] | Mailcode: | | | | | [place] | Phone: | [phone] [facility] | | | | | [place] | [phone] | [facility] | | | | | SCAN,THORAX, | Fax: | [place], [place] | | | | | W/O [place]AST | [phone] | [address] | | | | | | | Phone: | | | | | | | [phone] | | | | | | | Fax: | | | | | | | [phone] | +--------+--------+ + + + + Diagnostic [...] | Synovial | Sandra Schmitt MD | [address] | | | | | sarcoma | [address] | [address] | | | | | (HCC) | Ave | [address] | | | | | Procedures | [place], [place] | Road | | | | | [place] | [address] | Mailcode: | | | | | [place] | Phone: | [phone] [facility] | | | | | [place] | [phone] | [facility] | | | | | SCAN,THORAX, | Fax: | [place], [place] | | | | | W/[place] CONTRAST | [phone] | [address] | | | | | | | Phone: | | | | | | | [phone] | | | | | | | Fax: | | | | | | | [phone] | +--------+--------+ + + + + Reason for Visit Diagnostic Testing (Routine) +--------+--------+ + + + + | Status | Reason | Specialty | Diagnoses / | Referred By | Referred To | | | | | Procedures | Contact | Contact | +--------+--------+ + + + + | Closed | | Radiology | Diagnoses | Jorge | [address] Scan | | | | | Synovial | Sandra Schmitt MD | [address] | | | | | sarcoma | [address] | [address] | | | | | ([facility]) | Ave | [address] [place] | | | | | Procedures | [place], [place] | Road | | | | | [place] | [address] | Mailcode: | | | | | [place] | Phone: | [phone] [facility] | | | | | CT | [phone] | Hospital | | | | | SCAN,THORAX, | Fax: | [place], [place] | | | | | W/[place]AST | [phone] | [address] | | | | | | | Phone: | | | | | | | [phone] | | | | | | | Fax: | | | | | | | [phone] | +--------+--------+ + + + + Encounter Details +--------+ + + + + | Date | Type | Department | Care Team | Description | +--------+ + + + + | 05/14/ | Hospital | Radiology/Imaging | | | | 2018 | Encounter | Lab at [facility] [address] | | | | | | [address] | | | | | | Mailcode: [id number] | | | | | | [facility] | | | | | | and [address], [address] | | | | | | [place], [place] | | | | | | [address] | | | | | | [phone] | | | +--------+ + + + [...] | | | 2018 | | | [address] | | | | | | [place], [place] | | | | | | [address] | | | | | | [phone] | | | | | | | | +--------+ + + + + | 03/25/ | Office | Orthopedics | Lynda Basurto, | | | 2019 | Visit | | [address] | | | | | | [address] | | | | | | [facility] [place] | | | | | | [address] | | | | | | [phone] | | | | | | | | +--------+ + + + + | 03/25/ | Office | Hematology & | Sandra Patel MD | | | 2019 | Visit | Oncology | [address] | | | | | | [place], [place] | | | | | | [address] | | | | | | [phone] | | | | | | | | +--------+ + + + + documented as of this encounter Procedures + +--------+ + + + | Procedure Name | Priori | Date/Time | Associated Diagnosis | Comments | | | ty | | | | + +--------+ + + + | CT CHEST WO CONTRAST | Routin | 05/14/2018 | Synovial sarcoma | Results for this | | | e | 10:37 AM | (HCC) | procedure are in the | | | | PDT | | results section. 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 PROCEDURE: Helical transaxial | RECOGNITION 2 | | images were obtained from the lung apices through the adrenals without | | | contrast with multiplanar reformatted images also reviewed. | | | FINDINGS: Lungs: No parenchymal lung opacities or nodules. | | | Pleura: No pleural effusion or pneumothorax. Mediastinum: Right IJ | | | Port-A-Cath extending to the cavoatrial junction. No enlarged | | | mediastinal lymph nodes. Cardiac: Unremarkable. Neck | | | base/axillae: Unremarkable. Upper abdomen: No abnormality of the | | | visualized upper abdominal visceral organs. Musculoskeletal: No | | | lytic or sclerotic osseous lesions. Minor mid to lower thoracic | | | spondylosis. IMPRESSION: No findings of concern for pulmonary | | | metastatic disease. I have personally reviewed the images and, if | | | necessary, edited the report. I agree with the report as now | | | presented. 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 PROCEDURE: Helical | | transaxial images were obtained from the lung apices through the adrenals without | | contrast with multiplanar reformatted images also reviewed. FINDINGS:Lungs: No | | parenchymal lung opacities or nodules. Pleura: No pleural effusion or pneumothorax. | | Mediastinum: Right IJ Port-A-Cath extending to the cavoatrial junction. No enlarged | | mediastinal lymph nodes. Cardiac: Unremarkable. Neck base/axillae: Unremarkable. Upper | | abdomen: No abnormality of the visualized upper abdominal visceral organs. | | Musculoskeletal: No lytic or sclerotic osseous lesions. Minor mid to lower thoracic | | spondylosis. IMPRESSION: No findings of concern for pulmonary metastatic disease. I have | | personally reviewed the images and, if necessary, edited the report. I agree with the | | report as now presented. Final signature: Art Caro MD 05/14/2018 10:50 AM | | Preliminary: Art Caro MD Dictation initiated: Art Caro MD | | 05/14/2018 10:42 AM | |Cardiac: Unremarkable. | | | |Neck base/axillae: Unremarkable. | | | |Upper abdomen: No abnormality of the visualized upper abdominal visceral organs. | | | |Musculoskeletal: No lytic or sclerotic osseous lesions. Minor mid to lower thoracic spondyl osis. | | | |IMPRESSION: No findings of concern for pulmonary metastatic disease. | | | |I have personally reviewed the images and, if necessary, edited the report. I agree with th e report as now presented. | | | |Final signature: Art Caro MD 05/14/2018 10:50 AM | |Preliminary: Art Caro MD | |Dictation initiated: Art Caro MD 05/14/2018 10:42 AM | + + + +---------+ + + [...]
--- OUTSIDE RECORDS SUMMARY | ~2019-01-30 | XMS | Encounter Summary ---
Demographics + + + | Address | [address] | | | [place] [address] | + + + | Home Phone [...] Team Providers + +------+ + | Care Pulvi Mixer Operator Name | Role | Phone | [...] Nascimento | | | | | | [facility] | | | | | | [place], [place] | | | | | | [address] | | | +--------+ + + + [...] [address] | | | | | | [place] | | | | | | [address] | | | | | | [phone] | | | | | | | | +--------+ + + + + | 03/25/ | Office | Orthopedics | Lynda Basurto, | | | 2018 | Visit | | [address] | | | | | | [address] | | | | | | [place] | | | | | | [address] | | | | | | [phone] | | | | | | | | +--------+ + + + + | 03/25/ | Office | Hematology & | Sandra Patel MD | | | 2018 | Visit | Oncology | [address] | | | | | | [place] | | | | | | [address] | | | | | | [phone] | | | | | | | | +--------+ + + + + documented as of this encounter Visit Diagnoses Not on filedocumented in this encounter"
--- OUTSIDE RECORDS SUMMARY | ~2019-01-30 | XMS | Encounter Summary ---
Demographics + + + | Address | [address] | | | [place] [address] | + + + | Home Phone | | + + + | Preferred Language | Unknown | + + + | Marital Status | Single | + + + | Yazidism Affiliation | CAT | + + + [...] Team Providers + +------+ + | Care Mixer Driver Name | Role | Phone | [...] Other (question | | 2017 | | [facility] [address] | [address] | about stitches ); | | | | [place] Mailcode: [id number] | [address] | Removal of sutures | | | | [place] for [facility] | [place], [place] | | | | | and [facility], | [address] | | | | | Floor [place], [place] | [phone] | | | | | [address] | | | | | | [phone] | | | +--------+ + + + [...] [place] | | | | | | [address] | | | | | | [phone] | | | | | | | | +--------+ + + + + | 03/25/ | Office | Orthopedics | Lynda Basurto, | | | 2018 | Visit | | [address] | | | | | | [address] | | | | | | [place], [place] | | | | | | [address] | | | | | | [phone] | | | | | | | | +--------+ + + + + | 03/25/ | Office | Hematology & | Sandra Patel MD | | | 2018 | Visit | Oncology | [address] | | | | | | [place], [place] | | | | | | [address] | | | | | | [phone] | | | | | | | | +--------+ + + + + documented as of this encounter Visit Diagnoses Not on filedocumented in this encounter"
--- OUTSIDE RECORDS SUMMARY | ~2019-01-30 | XMS | Encounter Summary ---
Demographics + + + | Address | [address] | | | [place] [address] | + + + | Home Phone [...] Author + + + | Author | [facility] | + + + | Organization | [facility] | + + + | Address | Unknown | + + + | Phone | Unavailable | + + + Support + + +---------+ + | Name | Relationship | Address | Phone | + + +---------+ + | Kika Cage | ECON | Unknown | | + + +---------+ + Care Team Providers + +------+ + | Care Apprentice Technician Name | Role | Phone | + +------+ + | Santo Gooden MD | PCP | | + +------+ + Reason for Referral PROC - Inpatient Surgery (Urgent) +--------+--------+ + + + + | Status | Reason | Specialty | Diagnoses / | Referred By | Referred To | | | | | Procedures | Contact | Contact | +--------+--------+ + + + + | Closed | | Orthopedics | Diagnoses | Berkley, | Sb, | | | | | Synovial | Santo Rogers MD | MD Lynda | | | | | sarcoma | [place] | [address] [facility] | | | | | (HCC) | [place] | [facility] | | | | | Malignant | Health | Rd | | | | | neoplasm of | Center | [place], [place] | | | | | connective | [address] | [address] | | | | | and soft | [place] | Phone: | | | | | tissue of | Way | [phone] | | | | | left lower | [place], | Fax: | | | | | limb, | [place] [address] | [phone] | | | | | including | Phone: | | | | | | hip | [phone] | | | | | | Procedures | Fax: | | | | | | REQUEST TO | [phone] | | | | | | SURGERY | | | | | | | [employer] | | | | | | | [place] | | | | | | | AMPUTATION | | | | | | | LOW LEG THRU | | | | | | | TIB/FIB | | | +--------+--------+ + + + + Reason for Visit AUTH/CERT +--------+--------+ + [...] Description | +--------+---------+ + + + | 02/05/ | Office | [facility] Orthopaedics | Lynda Basurto, | 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 | & Rehabilitation at | [address] | ([facility], [facility]IN [facility]) (Primary Dx) | | | | [facility] [address] | [facility] | | | | | [place] Mailcode: | [place], [place] | | | | | [facility] | [address] | | | | | and Healing, | [phone] | | | | | [address] | | | | | | [place], [place] | | | | | | [address] | | | | | | [phone] | | | +--------+---------+ + + + [...] + + + | Blood Pressure | 140/88 | 02/05/2018 2:42 PM | | | | | PDT | | + + + + + | Pulse | 96 | 02/05/2018 2:42 PM | | | | | PDT | | + + + + + | Temperature | 36.9 C (98.4 F) | 02/05/2018 2:42 PM | | | | | PDT | | + + + + + | Respiratory Rate | 36 | 02/05/2018 2:42 PM | | | | | PDT | | + + + + + | Oxygen Saturation | 100% | 02/05/2018 2:42 PM | | | | | PDT | | + + + + + | Inhaled Oxygen | - | - | | | Concentration | | | | + + + + + | Weight | 139.7 kg (308 lb) | 02/05/2018 2:42 PM | | | | | PDT | | + + + + + | Height | - | - | | + + + + + | Body Mass Index | 46.83 | 01/15/2018 10:06 AM | | | | | PDT | | + + + + + documented in this encounter Progress Notes Lynda Basurto MD - 02/05/2018 2:20 PM PDTDx: synovial sarcoma left foot Treatment: needle biopsy 01/15/2018 HPI: 32 y.o. F with recent diagnosis of synovial sarcoma left foot. Has continued to have a lot of pain in the left foot. She is now also having drainage from her biopsy site. She i s having some redness around her biopsy site in his grown slightly more proximal. No fevers. Increasing pain in the foot. She was scheduled to have a port placed on Saturday to try neoad juvant chemotherapy in an attempt for limb salvage, but the pain has gotten worse in the alberto inage has gotten worse. PE: Wt 139.7 kg (308 lb), BP 140/88, Pulse 96, Temperature 36.9 C (98.4 F), Temperature ayde rce Oral, RR 36, SpO2 100%, BMI 46.83 kg/(m^2). Biopsy site with drainage that is a combination of blood and fibrinous material. This is c onsistent with tumor with a possible superinfection. Erythema tracks up to inferior aspect of medial malleolus. Pathology: Synovial sarcoma, poorly differentiated type, FNCLCC Grade 2 (high grade) A/P: Synovial sarcoma left foot with drainage consistent with fungating tumor and likely morales perinfection -Given the new findings, I don't think that limb salvage is an option anymore. I think that she would have significant wound healing problems with limb salvage. In addition, with a po ssible superinfection, I'm not sure that acute neoadjuvant chemotherapy is appropriate. -Had a long discussion with the patient regards to my concerns. At this point I would recom mend a below-knee amputation. -After this discussion, patient was agreeable to a below-knee amputation. -In discussion, patient would prefer to have this procedure done tomorrow. I will place her on the surgical schedule. -She was originally scheduled to have a port on Saturday. we have arranged for the port to be placed tomorrow under the same anesthetic as our amputation. -All the risks and benefits of the procedure were explained and all questions were answered to the patient's satisfaction. Consent signed today. -Patient will likely get adjuvant chemotherapy about 3 weeks after amputation. -Oxycodone prescription given for pain control prior to surgery. I spent 20 minutes with the patient. Greater than 50% of the time was spent counseling the patient regarding need for amputation.Electronically signed by Lynda Basurto MD at 02/05 3:31 PM PDTdocumented in this encounter Plan of Treatment +--------+ + + + + | Date | Type | Specialty | Care Team | Description | +--------+ + + + + | 03/25/ | Appointment | Radiology | Sandra Patel MD | | | 2018 | | | [address] | | | | | | [place], [place] | | | | | | [address] | | | | | | [phone] | | | | | | | | +--------+ + + + + | 03/25/ | Office | Orthopedics | Lynda Basurto, | | | 2018 | Visit | | [address] | | | | | | [address] | | | | | | [place], [place] | | | | | | [address] | | | | | | [phone] | | | | | | | | +--------+ + + + + | 03/25/ | Office | Hematology & | Sandra Patel MD | | | 2018 | Visit | Oncology | [address] | | | | | | [place], [place] | | | | | | [address] | | | | | | [phone] | | | | | | | | +--------+ + + + + documented as of this encounter Results BASIC METABOLIC SET (NA, [...] | | | LABORATORY | | | [facility] | | | SERVICES, | | | [...] | + + + + + | [facility] | [address] | [place] [address] | | | SERVICES, CORE | [address] | | | + + + + + documented in this encounter Visit Diagnoses + + | Diagnosis | + + | 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
--- OUTSIDE RECORDS SUMMARY | ~2019-01-30 | XMS | Encounter Summary ---
Demographics + + + | Address | [address] | | | [place] [address] | + + + | Home Phone [...] Team Providers + +------+ + | Care Service Coordinator Elderly Facility Name | Role | Phone | + +------+ + | Santo Gooden MD | PCP | | + +------+ + Encounter Details +--------+ + + + + | Date | Type | Department | Care Team | Description | +--------+ + + + + | 02/26/ | Telephone | Hematology/Medical | Ann Davis, | | | 2017 | | [facility] at [place] | PharmD [address] | | | | | for Health & Healing | [address] | | | | | [address] | [place], [place] | | | | | Mailcode: [place] | [address] | | | | | for Health and | | | | | | Healing, [address] | | | | | | [place], [place] | | | | | | [address] | | | | | | [phone] | | | +--------+ + + + [...] [address] | | | | | | [place], [place] | | | | | | [address] | | | | | | [phone] | | | | | | | | +--------+ + + + + | 03/25/ | Office | Orthopedics | Lynda Basurto, | | | 2018 | Visit | | [address] | | | | | | [address] | | | | | | [place], [place] | | | | | | [address] | | | | | | [phone] | | | | | | | | +--------+ + + + + | 03/25/ | Office | Hematology & | Sandra Patel MD | | | 2019 | Visit | Oncology | [address] | | | | | | [place] | | | | | | [address] | | | | | | [phone] | | | | | | | | +--------+ + + + + documented as of this encounter Visit Diagnoses Not on filedocumented in this encounter"
--- OUTSIDE RECORDS SUMMARY | ~2019-01-30 | XMS | Encounter Summary ---
Demographics + + + | Address | [address] | | | [place] [address] | + + + | Home Phone [...] Author + + + | Author | [facility] | + + + | Organization | [facility] | + + + | Address | Unknown | + + + | Phone | Unavailable | + + + Support + + +---------+ + | Name | Relationship | Address | Phone | + + +---------+ + | Kika Cage | ECON | Unknown | | + + +---------+ + Care Team Providers + +------+ + | Care Tissue Specialist Name | Role | Phone | + +------+ + | Santo Gooden MD | PCP | | + +------+ + Encounter Details +--------+ + + + + | Date | Type | Department | Care Team | Description | +--------+ + + + + | 12/29/ | Telephone | Orthopaedics at | Lynda Basurto, | | | 2019 | | [facility] [address] | [address] | | | | | [place] Mailcode: CH12[facility] | [facility] | | | | | [facility] | [place], [place] | | | | | and , | [address] | | | | | Floor [place], [place] | [phone] | | | | | [address] | | | | | | [phone] | | | +--------+ + + + [...] | | | 2018 | | | [address] | | | | | | [place], [place] | | | | | | [address] | | | | | | [phone] | | | | | | | | +--------+ + + + + | 03/25/ | Office | Orthopedics | Lynda Basurto, | | | 2019 | Visit | | [address] | | | | | | [address] | | | | | | [place], [place] | | | | | | [address] | | | | | | [phone] | | | | | | | | +--------+ + + + + | 03/25/ | Office | Hematology & | Sandra Patel MD | | | 2019 | Visit | Oncology | [address] | | | | | | [place] | | | | | | [address] | | | | | | [phone] | | | | | | | | +--------+ + + + + documented as of this encounter Visit Diagnoses Not on filedocumented in this encounter"
--- OUTSIDE RECORDS SUMMARY | ~2019-01-30 | XMS | Encounter Summary ---
Demographics + + + | Address | [address] | | | [place] [address] | + + + | Home Phone [...] Author + + + | Author | [facility] | + + + | Organization | [facility] | + + + | Address | Unknown | + + + | Phone | Unavailable | + + + Support + + +---------+ + | Name | Relationship | Address | Phone | + + +---------+ + | Kika Cage | ECON | Unknown | | + + +---------+ + Care Team Providers + +------+ + | Care Cotton Factor Name | Role | Phone | + +------+ + | Santo Gooden MD | PCP | | + +------+ + Reason for Visit Consultation (Urgent) + [...] | Oncology | Malignant | Lynda, | [address] | | | | | neoplasm of | [address] | | | | | soft tissue | [address] | [facility] [place] | | | | | of left | [address] | [address] | | | | | lower | [place], [place] | Phone: | | | | | extremity | [address] | [phone] | | | | | (HCC) | Phone: | Fax: | | | | | Procedures | [phone] | [phone] | | | | | CONSULT TO | Fax: | | | | | | HEMATOLOGY / | [phone] | | | | | | ONCOLOGY | | | + +--------+ + + + + Encounter Details +--------+---------+ + + + | Date | Type | Department | Care Team | Description | +--------+---------+ + + + | 05/14/ | Office | Hematology/Medical | Sandra Patel MD | 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 | Oncology at Center | [address] | ([facility]) (Primary Dx) | | | | for Health & Healing | [facility] [place] | | | | | [address] | [address] | | | | | Mailcode: [facility]7N | [phone] | | | | | [facility] | | | | | | and Healing, | | | | | | [place], [place] | | | | | | [address] | | | | | | [phone] | | | +--------+---------+ + + + [...] + + + | Blood Pressure | 145/89 | 05/14/2018 1:06 PM | | | | | PDT | | + + + + + | Pulse | 97 | 05/14/2018 1:06 PM | | | | | PDT | | + + + + + | Temperature | 36.7 C (98 F) | 05/14/2018 1:06 PM | | | | | PDT | | + + + + + | Respiratory Rate | 16 | 05/14/2018 1:06 PM | | | | | PDT | | + + + + + | Oxygen Saturation | 94% | 05/14/2018 1:06 PM | | | | | PDT | | + + + + + | Inhaled Oxygen | - | - | | | Concentration | | | | + + + + + | Weight | 144.7 kg (319 lb 1.6 | 05/14/2018 1:06 PM | | | | oz) | PDT | | + + + + + | Height | - | - | | + + + + + | Body Mass Index | 48.52 | 04/24/2018 2:04 PM | | | [...] encounter Progress Notes Sandra Patel MD - 05/14/2018 3:40 PM PDT Display Progress Note in MyChart: Yes [facility] - ESTABLISHED PATIENT - RETURN VISIT Date: 05/14/2018 Name: Tati Cage : 1985 Home Town: [place], [place] Referring Physician: Sb Diagnosis: 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 History: Prior records reviewed. Tati Cage is [...] per infusion pharmacy standard policy and/or procedure. citalopram 40 mg oral tablet, Take 40 mg by mouth once daily at bedtime. dexamethasone 4 mg oral tablet, Take 2 tablets by mouth every twenty-four hours. Indication s: Prevention of Chemotherapy-Induced Nausea and Vomiting lidocaine-prilocaine (EMLA) 2.5-2.5 % topical cream, Apply to affected area as needed. Appl y a thick layer to intact skin and cover with an occlusive dressing. loratadine (CLARITIN) 10 mg oral tablet, Take 10 mg by mouth once daily. LORazepam 0.5 mg oral tablet, Take 1 tablet by mouth every six hours as needed for anxiety. LYRICA 225 mg oral capsule, Take 1 capsule by mouth two times daily. At 0900 and 1700. Yoli cations: [facility] Bedside commode for nighttime use following foot amputat ion. nystatin 100,000 unit/gram topical powder, Apply to affected area two times daily. Apply to candidal lesions until lesions have healed. Indications: skin infection, redness in pannus, skin folds (Patient taking differently: Apply to affected area as needed. Apply to candidal lesions until lesions have healed. Indications: skin infection, redness in pannus, skin fol ds) OLANZapine 10 mg oral tablet, Take 1 tablet by mouth once daily at bedtime. Indications: Pr evention of Chemotherapy-Induced Nausea and Vomiting (Patient taking differently: Take 5 mg by mouth once daily at bedtime. Indications: Prevention of Chemotherapy-Induced Nausea and Vomiting) omeprazole 20 mg oral capsule,delayed release(DR/EC), Take 1 capsule by mouth two times taylor ly. Indications: Maintenance of Healing Erosive Esophagitis ondansetron 8 mg oral tablet, Take 1 tablet by mouth every twelve hours as needed (2nd line for nausea/vomiting). (Patient taking differently: Take 8 mg by mouth every twelve hours as needed (3rd line for nausea/vomiting). ) oxyCODONE (immediate release) 5 mg oral tablet, [...] Nausea and Vomiting (Patient taking differently: Take 10 mg by mouth every six hours as needed (nausea, 1st line). 04/27-05/01: Take 2 tablet by mouth ev charles 6 hours. After 05/01 may take 2 tablet by mouth every 6 hours as needed. Max dose: 40 mg /day Indications: Prevention of Chemotherapy-Induced Nausea and Vomiting Indications: Preven tion of Chemotherapy-Induced Nausea and Vomiting) senna-docusate 8.6-50 mg oral tablet, Take 2 tablets by mouth two times daily. Prevention o f opioid induced constipation No current facility-administered medications for this visit. lidocaine (XYLOCAINE) 10 mg/mL (1 %) injection, , infiltration, ONCE Allergies Allergen Reactions Chlorhexidine Rash Demerol [Meperidine Hcl] Pruritus Morphine Pruritus PHYSICAL EXAM: BP 145/89 | Pulse 97 | Temp (Src) 36.7 C (98 F) (Oral) | RR 16 | Wt 144.7 kg (319 lb 1. 6 oz) | SpO2 94% | BMI 48.52 kg/(m^2) Constitutional - Pleasant overweight woman in NAD. Alopecia Eyes - Anicteric sclera, no drainage. ENT - Oropharynx moist. Respiratory - Normal WOB. Skin - No bruising or rashes. Port site without erythema. Musculoskeletal - S/p left BKA. Stump with c/d/I dressing (just re-examined by Dr Basurto). R emaining extremities warm, well perfused. No edema. Neurologic - Awake, alert. money order clerk grossly intact. Affect/Psych - Appropriate. ECOG - 0 LABS: 05/14/2018 13:06 05/14/2018 16:16 05/14/2018 16:24 SODIUM, PLASMA (LAB) 142 POTASSIUM, PLASMA (LAB) 3.7 CHLORIDE, PLASMA (LAB) 109 (H) TOTAL CO2, PLASMA (LAB) 29 (H) BUN, PLASMA (LAB) 9 CREATININE PLASMA (LAB) 0.9 GLUCOSE, PLASMA (LAB) 157 (H) CALCIUM, PLASMA (LAB) 9.3 MAGNESIUM,PLASMA 2.0 PHOSPHORUS, PLASMA (LAB) 4.2 AST(SGOT) 22 ALT (SGPT) <20 ALK PHOS 56 BILIRUBIN TOTAL 0.4 TOTAL PROTEIN, PLASMA (LAB) 6.7 ALBUMIN, PLASMA (LAB) 3.4 (L) WHITE CELL COUNT 5.7 RED CELL COUNT 3.10 (L) HEMOGLOBIN 9.7 (L) HEMATOCRIT 29.2 (L) MCV 94.2 MCH 31.3 MCHC 33.2 RDW SD 45.1 PLATELET COUNT 378 MPV 9.3 (L) NEUTROPHIL % 57.7 LYMPHOCYTE % 21.9 MONOCYTE % 19.3 (H) EOS % 0.0 (L) BASO % 1.1 NEUTROPHIL # 3.3 LYMPHOCYTE # 1.2 MONOCYTE # 1.1 (H) EOS # 0.0 BASO # 0.1 05/08/18 path Esophagus, distal ulcer, biopsy: ? Squamocolumnar mucosa with ulcer and acute inflammation ? Immunohistochemical staining for HSV and CMV is negative, GMS is negative for fungal orga nisms IMAGIN05/14/18 CT chest No findings of concern for pulmonary metastatic disease. ASSESSMENT: Tati Cage is a 32 y.o. 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 Rapid local progression with pain and infection necessitating upfront amputation on 02/06/[address] Basurto. Completed 3 cycles of adjuvant epirubicin/ifosfamide, c/b recurrent febrile neutropenia and wound infection requiring surgical I&D. PLAN: Synovial sarcoma. - No further planned chemotherapy. - Begin surveillance: RTC in 3-[address] chest prior and coordinated visits with Warren Rossi - Port flushes q4-6 weeks until then. Sandra Patel MD [employer] Medical Oncology & Pediatric Hematology/Oncology [facility] [place] [facility] documented in this encounter Plan of Treatment +--------+ + + + + | Date | Type | Specialty | Care Team | Description | +--------+ + + + + | 03/25/ | Appointment | Radiology | Sandra Patel MD | | | 2018 | | | [address] | | | | | | [place], [place] | | | | | | [address] | | | | | | [phone] | | | | | | | | +--------+ + + + + | 03/25/ | Office | Orthopedics | Lynda Basurto, | | | 2018 | Visit | | [address] | | | | | | [address] | | | | | | [place], [place] | | | | | | [address] | | | | | | [phone] | | | | | | | | +--------+ + + + + | 03/25/ | Office | Hematology & | Sandra Patel MD | | | 2018 | Visit | Oncology | [address] | | | | | | [place], [place] | | | | | | [address] | | | | | | [phone] | | | | | | | | +--------+ + + + + documented as of this encounter Visit Diagnoses + + | Diagnosis | + + | 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
--- OUTSIDE RECORDS SUMMARY | ~2019-01-30 | XMS | Encounter Summary ---
Demographics + + + | Address | [address] | | | [place] [address] | + + + | Home Phone [...] Author + + + | Author | [facility] | + + + | Organization | [facility] | + + + | Address | Unknown | + + + | Phone | Unavailable | + + + Support + + +---------+ + | Name | Relationship | Address | Phone | + + +---------+ + | Kika Cage | ECON | Unknown | | + + +---------+ + Care Team Providers + +------+ + | Care Engagement Engineer Name | Role | Phone | + +------+ + | Santo Gooden MD | PCP | | + +------+ + Encounter Details +--------+ + + + + | Date | Type | Department | Care Team | Description | +--------+ + + + + | 04/17/ | Documentati | Infectious | Angely Stephen, | | | 2018 | on | Diseases at [facility] | [address] | | | | | Floor [address] | [facility] | | | | | [facility] | [place], [place] | | | | | Mailcode: [address] | [address] | | | | | Physicians [facility] | [phone] | | | | | [place], [place] | | | | | | [address] | | | | | | [phone] | | | +--------+ + + + [...] | | | 2018 | | | [address] | | | | | | [place], [place] | | | | | | [address] | | | | | | [phone] | | | | | | | | +--------+ + + + + | 03/25/ | Office | Orthopedics | Lynda Basurto, | | | 2019 | Visit | | [address] | | | | | | [address] | | | | | | [place], [place] | | | | | | [address] | | | | | | [phone] | | | | | | | | +--------+ + + + + | 03/25/ | Office | Hematology & | Sandra Patel MD | | | 2019 | Visit | Oncology | [address] | | | | | | [place] | | | | | | [address] | | | | | | [phone] | | | | | | | | +--------+ + + + + documented as of this encounter Visit Diagnoses Not on filedocumented in this encounter"
--- OUTSIDE RECORDS SUMMARY | ~2019-01-30 | XMS | Encounter Summary ---
Demographics + + + | Address | [address] | | | [place] [address] | + + + | Home Phone [...] Team Providers + +------+ + | Care Horse Racetrack Manager Name | Role | Phone | [...] + + + + | 03/24/ | Anesthesia | 6A Intra Op [facility] | Narayanan, | | | 2017 | Event | [facility] | Kemar Rodgers CRNA | | | | | Admitting Desk | [address] [facility] | | | | | Located on the [facility] | [facility], | | | | | floor [address] [facility] [place] [address] | | | | | [facility] | [phone] | | | | | [place], [place] | | | | | | [address] | | | +--------+ + + + + Anesthesia Record + + + + + | Procedure Name | Responsible | Anesthesia Start | Anesthesia Stop Time | | | Anesthesiologist | Time | | + + + + + | KNEE SOFT TISSUE | Mildred Nguyen, | 03/24/18 1109 | 03/24/18 1306 | | PROCEDURES (Left | PhD ARUN | | | | Leg) | | | | + + + + + +----+---+ + + | Da | T | Event | Comment | | te | i | | | | | m | | | | | e | | | +----+---+ + + | 07 | 1 | Eq Check | Anesthesia machine checked Equipment verified | | /2 | 0 | | | | 3/ | 4 | | | | 20 | 7 | | | | 18 | | | | +----+---+ + + | | 1 | Pt. Check | Prior to anesthesia start, pt. Identified, examined, chart | | | 1 | | reviewed, PARQ held, anesthetic plan made or approved by | | | 0 | | attending anesthesiologist. NPO status confirmed as appropriate | | | 2 | | for procedure Preoperative evaluation: unchanged | +----+---+ + + | | 1 | An Start | | | | 1 | | | | | 0 | | | | | 9 | | | +----+---+ + + | | 1 | An Start | | | | 1 | Data | | | | 1 | | | | | 4 | | | +----+---+ + + | | 1 | Vitals | Monitors applied Vital signs checked Patient ready for anesthesia | | | 1 | Checked | | | | 2 | | | | | 1 | | | +----+---+ + + | | 1 | ETT | | | | 1 | | | | | 2 | | | | | 6 | | | +----+---+ + + | | 1 | Ready | | | | 1 | | | | | 3 | | | | | 4 | | | +----+---+ + + | | 1 | Abx held | Contraindicated, or not indicated for this procedure, or already | | | 1 | Medical or | receiving antibiotics | | | 4 | Surgical | | | | 5 | Reason | | +----+---+ + + | | 1 | Pause | | | | 1 | | | | | 5 | | | | | 0 | | | +----+---+ + + | | 1 | Incision | | | | 1 | | | | | 5 | | | | | 2 | | | +----+---+ + + | | 1 | Surgery end | | | | 2 | | | | | 4 | | | | | 8 | | | +----+---+ + + | | 1 | An Extubate | Neuromuscular function Intact. Pharynx suctioned. Patient obeys | | | 2 | | commands. Adequate pulmonary mechanics. | | | 4 | | | | | 9 | | | +----+---+ + + | | 1 | an stop | | | | 2 | data | | | | 5 | | | | | 1 | | | +----+---+ + + | | 1 | PACU Rpt | | | | 3 | Given | | | | 0 | | | | | 5 | | | +----+---+ + + | | 1 | Anesthesia | | | | 3 | End | | | | 0 | | | | | 6 | | | +----+---+ + + +------+ | Meds | +------+ + +---------+ | Name | Total | + +---------+ | midazolam | 1 mg | + +---------+ | fentaNYL | 200 mcg | + +---------+ | propofol | 200 mg | + +---------+ | succinylcholine | 140 mg | + +---------+ | HYDROmorphone | 0.4 mg | + +---------+ | LR | 700 mL | + +---------+ + + | Name | + + | O2 FR Avance (Total Liters) | + + | Air FR Avance (l/min) | + + | Insp Sevo | + + | Et Sevo | + + | EtN2O % | + + | Insp N2O % | + + + + | No blood administrations on file. | + + +--------+ + + + | Type | Details | Placement | Removal | +--------+ + + + | Port/P | Right; Chest portacath; Double | 02/19/18 1421 by | | | ortaca | | | | | th | | | | +--------+ + + [...] | | +--------+ + + + | Wound | 03/13/18; 0800; Yes; Left; leg; | 03/13/18 0800 by | | | | Other (Comment) (post surgery) | Nancy Muniz RN | | +--------+ + + + | Incisi | 03/24/18; SURGERY; Left; | 03/24/18 0000 by | | | on | Transverse (BKA left leg); leg | Priscilla Coats RN | | +--------+ + + + | Periph | 03/24/18; 1140; Dennis Narayanan, | 03/24/18 1140 by | 03/26/18 0000 by | | eral | SHELBY; Left; Forearm; 18 g; | Kemar Rodgers | Tere Damico RN | | IV | Positive; 03/26/18 (not present | SHELBY Narayanan | | | | upon arrival to ) | | | +--------+ + + + documented in this encounter Social History + +-------+ [...] | | | 2018 | | | [address] | | | | | | [place], [place] | | | | | | [address] | | | | | | [phone] | | | | | | | | +--------+ + + + + | 03/25/ | Office | Orthopedics | Lynda Basurto, | | | 2018 | Visit | | [address] | | | | | | [address] | | | | | | [place], [place] | | | | | | [address] | | | | | | [phone] | | | | | | | | +--------+ + + + + | 03/25/ | Office | Hematology & | Sandra Patel MD | | | 2019 | Visit | Oncology | [address] | | | | | | [place], [place] | | | | | | [address] | | | | | | [phone] | | | | | | | | +--------+ + + + + documented as of this encounter Procedures + +--------+ + + + | Procedure Name | Priori | Date/Time | Associated Diagnosis | Comments | | | ty | | | | + +--------+ + + + | ANE ETT | Routin | 03/24/2018 | | Results for this | | | e | 11:45 AM | | procedure are in the | | | | PDT | | results section. | + +--------+ + + + documented in this encounter Results ANE ETT (03/24/2018 11:45 AM PDT) + + + | Narrative | Performed At | + + + | Kemar Narayanan CRNA 03/24/2018 11:46 AM Procedure | | | Reason for Intubation: For surgical procedure, Location Performed: | | | [place] , Patient was preoxygenated Mask Ventilation Grade 1 - | | | Ventilated by mask Intubation Blade type: Kevin , Blade | | | size: 3, Atraumatic laryngoscopy: Atraumatic Laryngoscopy, | | | Intubation adjuncts: Ramp , Laryngoscopic view: Grade I, Fiberoptics | | | used: N/A , Number of Attempts: 1, Positive for EtCO2: Yes, Breath | | | sounds: Bilateral and equal ETT Ett Adult: Single-lumen | | | cuffed ETT Size: 7 ETT secured with: adhesive tape Depth | | | at Lip: 21 Cm Airway leak: Yes Narrative Attending | | | physically present | | + + + documented in this encounter Visit Diagnoses Not on filedocumented in this encounter Administered Medications + +--------+ +--------+------+------+ | Medication Order | MAR | Action | Dose | Rate | Site | | | Action | Date | | | | + +--------+ +--------+------+------+ | fentaNYL (SUBLIMAZE) injection | Given | 03/24/20 | 25 mcg | | | | INTRAPROCEDURE PRN, Starting Mon | | 18 12:03 | | | | | 03/24/18 at 1121, Until Mon | | PM PDT | | | | | 03/24/18 at 1251 | | | | | | + +--------+ +--------+------+------+ +-------+ +--------+---+---+ | Given | 03/24/20 | 25 mcg | | | | | 18 11:56 | | | | | | AM PDT | | | | +-------+ +--------+---+---+ | Given | 03/24/20 | 50 mcg | | | | | 18 11:28 | | | | | | AM PDT | | | | +-------+ +--------+---+---+ +---+---+ | | | +---+---+ + +-------+ +--------+---+---+ | HYDROmorphone (DILAUDID) | Given | 03/24/20 | 0.4 mg | | | | injection INTRAPROCEDURE PRN, | | 18 12:14 | | | | | Starting Sat03/24/18 at 1214, | | PM PDT | | | | | Until Sat03/24/18 at 1251 | | | | | | + +-------+ +--------+---+---+ +---+---+ | | | +---+---+ + + + +---+---+---+ | lactated Ringers IV | given by | 03/24/20 | | | | | INTRAPROCEDURE CONTINUOUS PRN, | | 18 12:52 | | | | | Starting Sat03/24/18 at 1250, | anesthes | PM PDT | | | | | Until Sat03/24/18 at 1252 | iology | | | | | + + + +---+---+---+ +---------+ +---+---+---+ | New Bag | 03/24/20 | | | | | | 18 12:50 | | | | | | PM PDT | | | | +---------+ +---+---+---+ +---+---+ | | | +---+---+ + +-------+ +------+---+---+ | midazolam (PF) (VERSED) | Given | 03/24/20 | 1 mg | | | | injection INTRAPROCEDURE PRN, | | 18 11:09 | | | | | Starting 03/24/18 at 1109, | | AM PDT | | | | | Until 03/24/18 at 1251 | | | | | | + +-------+ +------+---+---+ +---+---+ | | | +---+---+ + +-------+ +--------+---+---+ | propofol (DIPRIVAN) injection | Given | 03/24/20 | 200 mg | | | | INTRAPROCEDURE PRN, Starting Mon | | 18 11:26 | | | | | 03/24/18 at 1126, Until Mon | | AM PDT | | | | | 03/24/18 at 1251 | | | | | | + +-------+ +--------+---+---+ +---+---+ | | | +---+---+ + +-------+ +--------+---+---+ | succinylcholine (ANECTINE) | Given | 03/24/20 | 140 mg | | | | injection INTRAPROCEDURE PRN, | | 18 11:26 | | | | | Starting Sat03/24/18 at 1126, | | AM PDT | | | | | Until Sat03/24/18 at 1251 | | | | | | + +-------+ +--------+---+---+ +---+---+ | | | +---+---+ documented in this encounter"
--- OUTSIDE RECORDS SUMMARY | ~2019-01-30 | XMS | Encounter Summary ---
Demographics + + + | Address | [address] | | | [place] [address] | + + + | Home Phone [...] Author + + + | Author | [facility] | + + + | Organization | [facility] | + + + | Address | Unknown | + + + | Phone | Unavailable | + + + Support + + +---------+ + | Name | Relationship | Address | Phone | + + +---------+ + | Kika Cage | ECON | Unknown | | + + +---------+ + Care Team Providers + +------+ + | Care Municipal Bond Trader Name | Role | Phone | + [...] Other (question | | 2017 | | [facility] [address] | [address] | about stitches ); | | | | [place] Mailcode: CH12A | [address] | Removal of sutures | | | | [place] [facility] | [place], [place] | | | | | and [facility], | [address] | | | | | Floor [place], [place] | [phone] | | | | | [address] | | | | | | [phone] | | | +--------+ + + + [...] [place] | | | | | | [address] | | | | | | [phone] | | | | | | | | +--------+ + + + + | 03/25/ | Office | Orthopedics | Lynda Basurto, | | | 2018 | Visit | | [address] | | | | | | [address] | | | | | | [place], [place] | | | | | | [address] | | | | | | [phone] | | | | | | | | +--------+ + + + + | 03/25/ | Office | Hematology & | Sandra Patel MD | | | 2018 | Visit | Oncology | [address] | | | | | | [place], [place] | | | | | | [address] | | | | | | [phone] | | | | | | | | +--------+ + + + + documented as of this encounter Visit Diagnoses Not on filedocumented in this encounter"
--- OUTSIDE RECORDS SUMMARY | ~2019-01-30 | XMS | Encounter Summary ---
Demographics + + + | Address | [address] | | | [place] [address] | + + + | Home Phone | | + + + | Preferred Language | Unknown | + + + | Marital Status | Single | + + + | Roman Catholic Affiliation | CAT | + + + | Race | Unknown | + + + | Ethnic Group | Not or | + + + Author + + + | Author | [facility] | + + + | Organization | [facility] | + + + | Address | Unknown | + + + | Phone | Unavailable | + + + Support + + +---------+ + | Name | Relationship | Address | Phone | + + +---------+ + | Kika Cage | ECON | Unknown | | + + +---------+ + Care Team Providers + +------+ + | Care Labview Programmer Name | Role | Phone | + +------+ + | Santo Gooden MD | PCP | | + +------+ + Encounter Details +--------+ + + + + | Date | Type | Department | Care Team | Description | +--------+ + + + + | 02/07/ | Procedure | 4N INTRA OP | | | | 2018 | Pass | Edgar Wilson | | | | | | Ambulatory Surgery | | | | | | Admitting Desk | | | | | | Located on the 4th | | | | | | floor, Room 4519 | | | | | | [address] | | | | | | [facility], | | | | | | [place] [address] | | | +--------+ + + + [...] [address] | | | | | | [place], [place] | | | | | | [address] | | | | | | [phone] | | | | | | | | +--------+ + + + + | 03/25/ | Office | Orthopedics | Lynda Basurto, | | | 2018 | Visit | | [address] | | | | | | [address] | | | | | | [place], [place] | | | | | | [address] | | | | | | [phone] | | | | | | | | +--------+ + + + + | 03/25/ | Office | Hematology & | Sandra Patel MD | | | 2019 | Visit | Oncology | [address] | | | | | | [place], [place] | | | | | | [address] | | | | | | [phone] | | | | | | | | +--------+ + + + + documented as of this encounter Visit Diagnoses Not on filedocumented in this encounter"
--- OUTSIDE RECORDS SUMMARY | ~2019-01-30 | XMS | Encounter Summary ---
Demographics + + + | Address | [address] | | | [place] [address] | + + + | Home Phone [...] Team Providers + +------+ + | Care Asset Protection Agent Name | Role | Phone | + [...] | | | 2017 | Event | [facility] | Kemar Rodgers CRNA | | | | | Admitting Desk | [address] [facility] | | | | | Located on the [facility] | [facility], | | | | | floor [address] [facility] [place] [address] | | | | | [facility] | [phone] | | | | | [place], [place] | | | | | | [address] | | | +--------+ + + + [...] | | | 2018 | | | [address] | | | | | | [place], [place] | | | | | | [address] | | | | | | [phone] | | | | | | | | +--------+ + + + + | 03/25/ | Office | Orthopedics | Lynda Basurto, | | | 2018 | Visit | | [address] | | | | | | [address] | | | | | | [place], [place] | | | | | | [address] | | | | | | [phone] | | | | | | | | +--------+ + + + + | 03/25/ | Office | Hematology & | Sandra Patel MD | | | 2019 | Visit | Oncology | [address] | | | | | | [place], [place] | | | | | | [address] | | | | | | [phone] | | | | | | | [...]
--- OUTSIDE RECORDS SUMMARY | ~2019-01-30 | XMS | Encounter Summary ---
Demographics + + + | Address | [address] | | | [place] [address] | + + + | Home Phone | | + + + | Preferred Language | Unknown | + + + | Marital Status | Single | + + + | Adventist Affiliation | CAT | + + + [...] Team Providers + +------+ + | Care Stone Polisher Hand Name | Role | Phone | [...] [address] | | | | | [facility] [address] | [address] | | | | | Ave Mailcode: | [place], [place] | | | | | [place] for [facility] | [address] | | | | | and Healing, | [phone] | | | | | [address] | | | | | | [place], [place] | | | | | | [address] | | | | | | [phone] | | | +--------+ + + + [...] | | | 2018 | | | [address] | | | | | | [place], [place] | | | | | | [address] | | | | | | [phone] | | | | | | | | +--------+ + + + + | 03/25/ | Office | Orthopedics | Lynda Basurto, | | | 2018 | Visit | | [address] | | | | | | [address] | | | | | | [place], [place] | | | | | | [address] | | | | | | [phone] | | | | | | | | +--------+ + + + + | 03/25/ | Office | Hematology & | Sandra Patel MD | | | 2019 | Visit | Oncology | [address] | | | | | | [place], [place] | | | | | | [address] | | | | | | [phone] | | | | | | | | +--------+ + + + + documented as of this encounter Visit Diagnoses Not on filedocumented in this encounter"
--- OUTSIDE RECORDS SUMMARY | ~2019-01-30 | XMS | Encounter Summary ---
Demographics + + + | Address | [address] | | | [place] [address] | + + + | Home Phone [...] Team Providers + +------+ + | Care It Support Manager Name | Role | Phone | [...] | Synovial | Sandra Schmitt MD | [facility] [address] | | | | | sarcoma | [address] | [address] | | | | | ([facility]) | Ave | Mailcode: | | | | | Procedures | [place], [place] | [facility] | | | | | [place] | [address] | for Health | | | | | CONTRAST IN | Phone: | and Healing, | | | | | CT | [phone] | 3rd Floor | | | | | SCAN,THORAX, | Fax: | [place], [place] | | | | | W/O CONTRAST | [phone] | [address] | | | | | | | Phone: | | | | | | | [phone] | | | | | | | Fax: | | | | | | | [phone] | +--------+--------+ + + + + Reason [...] | | | Oncology | Malignant | Lynda | [address] | | | | | neoplasm of | MD [address] | | | | | soft tissue | [address] | [place], [place] | | | | | of left | [address] | [address] | | | | | lower | [place], [place] | Phone: | | | | | extremity | [address] | [phone] | | | | | (HCC) | Phone: | Fax: | | | | | Procedures | [phone] | [phone] | | | | | CONSULT TO | Fax: | | | | | | HEMATOLOGY / | [phone] | | | | | | ONCOLOGY | | | + +--------+ + + + + Encounter Details +--------+---------+ + + + | Date | Type | Department | Care Team | Description | +--------+---------+ + + + | 08/06/ | Office | Hematology/Medical | Sandra Patel MD | 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 | Oncology at Center | [address] | (HCC) (Primary Dx) | | | | for Health & Healing | [place], [place] | | | | | [address] | [address] | | | | | Mailcode: CH7N | [phone] | | | | | [facility] | | | | | | and [facility], | | | | | | [place], [place] | | | | | | [address] | | | | | | [phone] | | | +--------+---------+ + + + [...] + + + | Blood Pressure | 135/74 | 08/06/2018 2:11 PM | | | | | PST | | + + + + + | Pulse | 81 | 08/06/2018 2:11 PM | | | | | PST | | + + + + + | Temperature | 36.7 C (98 F) | 08/06/2018 2:11 PM | | | | | PST | | + + + + + | Respiratory Rate | 16 | 08/06/2018 2:11 PM | | | | | PST | | + + + + + | Oxygen Saturation | 98% | 08/06/2018 2:11 PM | | | | | PST | | + + + + + | Inhaled Oxygen | - | - | | | Concentration | | | | + + + + + | Weight | 153.6 kg (338 lb 9.6 | 08/06/2018 2:11 PM | | | | oz) | PST | | + + + + + | Height | - | - | | + + + + + | Body Mass Index | 51.48 | 04/24/2018 2:04 PM | | | [...] encounter Progress Notes Sandra Patel MD - 08/06/2018 2:40 PM PST Display Progress Note in MyChart: Yes [facility] - ESTABLISHED PATIENT - RETURN VISIT Date: 08/06/2018 Name: Tati Cage : 1985 Home Town: [place], [place] Referring Physician: Sb 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 Tati Cage is [...] and Vomiting (Patient not taking: Reported on 1 10/07/2017) lidocaine-prilocaine (EMLA) 2.5-2.5 % topical cream, [...] 0900 and 1700. Yoli cations: phantom pain Miscellaneous [employer] [facility], Bedside commode for nighttime use following foot [...] Hcl] Pruritus Morphine Pruritus PHYSICAL EXAM: BP 135/74 | Pulse 81 | Temp (Src) 36.7 C (98 F) (Oral) | RR 16 | Wt 153.6 kg (338 lb 9. 6 oz) | SpO2 98% | BMI 51.48 kg/(m^2) Constitutional - Pleasant overweight woman in NAD. +hair regrowth Eyes - Anicteric sclera, no drainage. ENT - Oropharynx moist. Respiratory - CTAB. Skin - No bruising or rashes. Port site without erythema. Musculoskeletal - S/p left BKA. Stump with well healed incision and very cool prosthesis. R emaining extremities warm, well perfused. No edema. Neurologic - Awake, alert. wind turbine design engineer grossly intact. Affect/Psych - Appropriate. ECOG - 0 LABS: Reviewed, WNL IMAGIN08/06/18 CT chest No evidence of intrathoracic metastasis. ASSESSMENT: Tati Cage is a 33 [...] chest prior and coordinated visits with [facility] - [facility]ARD for port removal. Sandra Patel MD Security Control Room Officer Medical Oncology & Pediatric Hematology/Oncology [facility] Multidisciplinary Sarcoma Program documented in this encounter Plan of Treatment +--------+ + + + + | Date | Type | Specialty | Care Team | Description | +--------+ + + + + | 03/25/ | Appointment | Radiology | Sandra Patel MD | | | 2018 | | | [address] | | | | | | [place], [place] | | | | | | [address] | | | | | | [phone] | | | | | | | | +--------+ + + + + | 03/25/ | Office | Orthopedics | Lynda Basurto, | | | 2018 | Visit | | [address] | | | | | | [address] | | | | | | [place], [place] | | | | | | [address] | | | | | | [phone] | | | | | | | | +--------+ + + + + | 03/25/ | Office | Hematology & | Sandra Patel MD | | | 2019 | Visit | Oncology | [address] | | | | | | [place], [place] | | | | | | [address] | | | | | | [phone] | | | | | | | | +--------+ + + + + documented as of this encounter Procedures + +--------+ + + + | Procedure Name | Priori | Date/Time | Associated Diagnosis | Comments | | | ty | | | | + +--------+ + + + | PORT/LINE PLACEMENT | Routin | 08/06/2018 | Synovial sarcoma | | | AND REMOVAL - | e | 3:05 PM | (HCC) | | | SURGICAL ONCOLOGY | | PST | | | + +--------+ + + [...]
--- OUTSIDE RECORDS SUMMARY | ~2019-01-30 | XMS | Encounter Summary ---
Demographics + + + | Address | [address] | | | [place] [address] | + + + | Home Phone | | + + + | Preferred Language | Unknown | + + + | Marital Status | Single | + + + | Synagogue Affiliation | CAT | + + + | Race | Unknown | + + + | Ethnic Group | Not or | + + + Author + + + | Author | [facility] | + + + | Organization | [facility] | + + + | Address | Unknown | + + + | Phone | Unavailable | + + + Support + + +---------+ + | Name | Relationship | Address | Phone | + + +---------+ + | Kika Cage | ECON | Unknown | | + + +---------+ + Care Team Providers + +------+ + | Care Manager Process Name | Role | Phone | + [...] + + | 04/09/ | Office | Hematology/Medical | Sandra Patel MD | 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 | Oncology at Center | [address] | (HCC) (Primary Dx) | | | | for Health & Healing | [place], [place] | | | | | [address] | [address] | | | | | Mailcode: CH7N | [phone] | | | | | [facility] | | | | | | and [facility], | | | | | | Floor [place], [place] | | | | | | [address] | | | | | | [phone] | | | +--------+---------+ + + + [...] + + + | Blood Pressure | 172/99 | 04/09/2018 3:35 PM | | | | | PDT | | + + + + + | Pulse | 85 | 04/09/2018 3:35 PM | | | | | PDT | | + + + + + | Temperature | 36.6 C (97.8 F) | 04/09/2018 3:35 PM | | | | | PDT | | + + + + + | Respiratory Rate | 16 | 04/09/2018 3:35 PM | | | | | PDT | | + + + + + | Oxygen Saturation | 96% | 04/09/2018 3:35 PM | | | | | PDT | | + + + + + | Inhaled Oxygen | - | - | | | Concentration | | | | + + + + + | Weight | 142.1 kg (313 lb 3.2 | 04/09/2018 3:35 PM | | | | oz) | PDT | | + + + + + | Height | - | - | | + + + + + | Body Mass Index | 47.62 | 03/24/2018 9:45 AM | | | [...] encounter Progress Notes Sandra Patel MD - 04/09/2018 3:10 PM PDT Display Progress Note in MyChart: Yes [facility] - ESTABLISHED PATIENT - RETURN VISIT Date: 04/09/2018 Name: Tati Cage : 1985 Home Town: [place], [place] Referring Physician: Sb 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 Having side effects from current IV abx so switching to alternative this week . History: Prior records reviewed. Tati Cage is [...] debridement on 03/24 and 03/27, delaying C3. ROS: Return Visit Health History Update form reviewed & scanned. No updates to past medical, surgical, social and family history. MEDICATIONS: acetaminophen 500 mg oral tablet, Take 2 tablets by mouth every eight hours as needed for m oderate pain. citalopram 40 mg oral tablet, Take 40 mg by mouth once daily. lidocaine-prilocaine (EMLA) 2.5-2.5 % topical cream, Apply to affected area as needed. Appl y a thick layer to intact skin and cover with an occlusive dressing. loratadine (CLARITIN) 10 mg oral tablet, Take 10 mg by mouth once daily. LORazepam 0.5 mg oral tablet, Take 1 tablet by mouth every six hours as needed for anxiety (1st line nausea/vomiting). LYRICA 225 mg oral capsule, Take 300 mg by mouth two times daily. At 0900 and 1700. metroNIDAZOLE 500 mg oral tablet, Take 1 tablet by mouth every eight hours. Indications: os teomyelitis Miscellaneous [facility] Bedside commode for nighttime use following foot [...] tablet by mouth once daily at bedtime. ondansetron 8 mg oral tablet, Take 1 tablet by mouth every twelve hours as needed (2nd line for nausea/vomiting). oxyCODONE (immediate release) 5 mg oral tablet, Take 1 to 3 tablets by mouth every three h ours as needed for moderate pain. Wean off soon and do not combine with other sedating meds like Clonazapam POLYETHYLENE GLYCOL 3350 ORAL, Take 17 g by mouth once daily. Adjust dose to effect. May ta ke up to 3 times daily as needed for constipation. prochlorperazine 10 mg oral tablet, Take 1 tablet by mouth every six hours as needed (Give as first line agent for acute or delayed nausea/vomiting). Max dose: 40 mg/day ranitidine 150 mg oral tablet, Take 150 mg by mouth once daily at bedtime. senna-docusate 8.6-50 mg oral tablet, Take 2 tablets by mouth two times daily. Prevention o f opioid induced constipation Allergies Allergen Reactions Chlorhexidine Rash Demerol [Meperidine Hcl] Pruritus Morphine Pruritus PHYSICAL EXAM: BP 172/99 | Pulse 85 | Temp (Src) 36.6 C (97.8 F) (Oral) | RR 16 | Wt 142.1 kg (313 lb 3.2 oz) | SpO2 96% | BMI 47.62 kg/(m^2) Constitutional - Pleasant overweight woman in NAD. Alopecia Eyes - Anicteric sclera, no drainage. ENT - Oropharynx moist. Respiratory - Normal WOB. Skin - No bruising or rashes. Port site without erythema. Musculoskeletal - S/p left BKA. Stump with c/d/I dressing (just re-examined by Dr Basurto). R emaining extremities warm, well perfused. No edema. Neurologic - Awake, alert. 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 Affect/Psych - Appropriate. ECOG - 0 LABS: Recent Labs 04/09/18 1514 WBC 7.8 HCT 35.4* HB 12.1 MCV 89.6 PLT 246 NEUTROPHILCO 4.6 Recent Labs 04/09/18 1526 NA 138 K 2.8* CL 100 BICARB 27 BUN 11 CR 0.7 GLU 101* CA 8.5* AST 22 ALT 24 TBILI 0.7 AP 48 ALB 4.0 TP 7.1 ASSESSMENT: Tati Cage is a 32 y.o. 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 Rapid local progression with pain and infection necessitating upfront amputation on 02/06/[address] Basurto. Completed 2 cycles of adjuvant epirubicin/ifosfamide, c/b wound infection. PLAN: Delay cycle 3 for another 2 weeks to ensure complete wound healing Continue IV antibiotics through C3 rodriguez Likely limit to 3 cycles total Sandra Patel MD Spanish Medical Interpreter Medical Oncology & Pediatric Hematology/Oncology [facility] [place] [facility] documented in this encounter Plan of Treatment +--------+ + + + + | Date | Type | Specialty | Care Team | Description | +--------+ + + + + | 03/25/ | Appointment | Radiology | Sandra Patel MD | | | 2018 | | | [address] | | | | | | [place], [place] | | | | | | [address] | | | | | | [phone] | | | | | | | | +--------+ + + + + | 03/25/ | Office | Orthopedics | Lynda ulloa, | | | 2018 | Visit | | [address] | | | | | | [address] | | | | | | [place], [place] | | | | | | [address] | | | | | | [phone] | | | | | | | | +--------+ + + + + | 03/25/ | Office | Hematology & | Sandra Patel MD | | | 2018 | Visit | Oncology | [address] | | | | | | [place], [place] | | | | | | [address] | | | | | | [phone] | | | | | | | | +--------+ + + + + documented as of this encounter Procedures + +--------+ + + + | Procedure Name | Priori | Date/Time | Associated Diagnosis | Comments | | | ty | | | | + +--------+ + + + | OUTSIDE RADIOLOGY - | | 05/04/2018 | | Results for this | | X-RAY | | 12:00 AM | | procedure are in the | | | | PDT | | results section. | + +--------+ + + + | LAB REPORTS | | 05/01/2018 | | Results for this | | | | 12:00 AM | | procedure are in the | | | | PDT | | results section. | + +--------+ + + + documented in this encounter Results OUTSIDE RADIOLOGY - X-RAY (05/04/2018 12:00 AM PDT) + + + | Narrative | Performed At | + + + | | | + + + LAB REPORTS (05/01/2018 12:00 AM PDT) + + + | Narrative | Performed At | + + + | | | + + + documented in this encounter Visit Diagnoses + + | Diagnosis | + + | 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
--- OUTSIDE RECORDS SUMMARY | ~2019-01-30 | XMS | Encounter Summary ---
Demographics + + + | Address | [address] | | | [place] [address] | + + + | Home Phone | | + + + | Preferred Language | Unknown | + + + | Marital Status | Single | + + + | Cheondoism Affiliation | CAT | + + + [...] Team Providers + +------+ + | Care Entry Level Project Engineer Name | Role | Phone | [...] + + | 02/19/ | Hospital | Hematology/Medical | Rn, Fast Track | | | 2018 | Encounter | Oncology at [facility] | [address] | | | | | [address] | [place] [address] | | | | | Mailcode: [place] | | | | | | [facility] and | | | | | | Healing, [address] | | | | | | [place], [place] | | | | | | [address] | | | | | | [phone] | | | +--------+ + + + [...] documented as of this encounter Progress Notes Nubia Morales RN - 02/19/2018 1:36 PM PDTDouble lumen PAC accessed per protocol. Both mary beth mens are sluggish, able to obtain blood return from lateral lumen. Negative BR medial lumen. CBC and CMP were drawn via lateral lumen, resulted via POC and reviewed. Mg, phos drawn and sent to lab. PAC flushed per protocol and left accessed for treatment. Pt tolerated withou t incident. Pt discharged to provider visit. documented in this enc ounter Plan of Treatment +--------+ + + + + | Date | Type | Specialty | Care Team | Description | +--------+ + + + + | 03/25/ | Appointment | Radiology | Sandra Patel MD | | | 2018 | | | [address] | | | | | | [place], [place] | | | | | | [address] | | | | | | [phone] | | | | | | | | +--------+ + + + + | 03/25/ | Office | Orthopedics | Lynda Basurto, | | | 2018 | Visit | | [address] | | | | | | [address] | | | | | | [place], [place] | | | | | | [address] | | | | | | [phone] | | | | | | | | +--------+ + + + + | 03/25/ | Office | Hematology & | Sandra Patel MD | | | 2019 | Visit | Oncology | [address] | | | | | | [place], [place] | | | | | | [address] | | | | | | [phone] | | | | | | | | +--------+ + + + + documented as of this encounter Procedures + +--------+ + + + | Procedure Name | Priori | Date/Time | Associated Diagnosis | Comments | | | ty | | | | + +--------+ + + + | COMPLETE METABOLIC | Routin | 02/19/2018 | Synovial sarcoma | | | PANEL - OLP | e | 2:28 PM | (HCC) | | | | | PDT | | | + +--------+ + + + | CMP, POC (BMP+LFT) | Routin | 02/19/2018 | Synovial sarcoma | Results for this | | | e | 2:28 PM | (HCC) | procedure are in the | | | | PDT | | results section. | + +--------+ + + + | CBC WITH AUTO DIFF - | Routin | 02/19/2018 | Synovial sarcoma | | | OLP | e | 2:23 PM | (HCC) | | | | | PDT | | | + +--------+ + + + | CBC+DIFF,POC | Routin | 02/19/2018 | Synovial sarcoma | Results for this | | | e | 2:23 PM | (HCC) | procedure are in the | | | | PDT | | results section. | + +--------+ + + + | MAGNESIUM, PLASMA - | Routin | 02/19/2018 | Synovial sarcoma | Results for this | | OLP | e | 1:44 PM | (HCC) | procedure are in the | | | | PDT | | results section. | + +--------+ + + + | URINE, MICROSCOPIC | Urgent | 02/19/2018 | Synovial sarcoma | Results for this | | EXAM | | 1:44 PM | (HCC) | procedure are in the | | | | PDT | | results section. | + +--------+ + + + | PHOSPHORUS, PLASMA | Routin | 02/19/2018 | Synovial sarcoma | Results for this | | | e | 1:44 PM | (HCC) | procedure are in the | | | | PDT | | results section. | + +--------+ + + + | MAGNESIUM, PLASMA | Routin | 02/19/2018 | Synovial sarcoma | Results for this | | | e | 1:44 PM | (HCC) | procedure are in the | | | | PDT | | results section. | + +--------+ + + + documented in this encounter Results CMP, POC (BMP+LFT) (02/19/2018 2:28 PM PDT) + +-------+ + + + | Component | Value | Ref Range | Performed | Pathologist | | | | | At | Signature | + +-------+ + + + | SODIUM, POC | 143 | 134 - 143 | [facility], | | | | | mmol/L | POINT OF | | | | | | CARE TESTS | | + +-------+ + + + | POTASSIUM, | 3.9 | 3.4 - 5.0 | [facility], | | | POC | | mmol/L | POINT OF | | | | | | CARE TESTS | | + +-------+ + + + | TOTAL CO2, | 29 | 22 - 29 mmol/L | [facility], | | | POC | | | POINT OF | | | | | | CARE TESTS | | + +-------+ + + + | CHLORIDE, | 106 | 97 - 108 mmol/L | [facility] [...] +-------+ + + + | CALCIUM | 9.5 | 8.6 - 10.2 | [facility], | | | TOTAL, POC | | mg/dL | POINT OF | | | | | | CARE TESTS | | + +-------+ + + + | BUN, POC | 16 | 6 - 20 mg/dL | [facility], | | | | | | POINT OF | | | | | | CARE TESTS | | + +-------+ + + + | CREATININE, | 0.9 | 0.6 - 1.1 mg/dL | [facility], | | | POC | | | POINT OF | | | | | | CARE TESTS | | + +-------+ + + + | ALK PHOS, | 46 | 33 - 76 U/L | [facility], | | | CMP POC | | | POINT OF | | | | | | CARE TESTS | | + +-------+ + + + | ALT, CMP | 26 | 0 - 60 U/L | [facility], | | | POC | | | POINT OF | | | | | | CARE TESTS | | + +-------+ + + + | AST, CMP | 28 | 0 - 41 U/L | [facility] [...] +-------+ + + + | PROTEIN | 7.2 | 6.1 - 7.9 g/dL | [facility] [...] [facility], POINT | [address] | [place] [address] | | | OF CARE TESTS | | | | + + + + + CBC+DIFF,POC (02/19/2018 2:23 PM PDT) + +---------+ + + + | Component | Value | Ref Range | Performed | Pathologist | | | | | At | Signature | + +---------+ + + + | WBC POC | 7.1 | 3.5 - 10.8 | [facility], | | | | | 10*3/uL | POINT OF | | | | | | CARE TESTS | | + +---------+ + + + | RBC POC | 4.12 | 4.00 - 5.20 | [facility], | | | | | 10*6/uL | POINT OF | | | | | | CARE TESTS | | + +---------+ + + + | HGB POC | 12.4 | 12.0 - 16.0 | [facility], | | | | | g/dL | POINT OF | | | | | | CARE TESTS | | + +---------+ + + + | HCT POC | 36.4 | 36.0 - 46.0 % | [facility], | | | | | | POINT OF | | | | | | CARE TESTS | | + +---------+ + + + | MCV POC | 88.3 | 80.0 - 100 fL | [facility], | | | | | | POINT OF | | | | | | CARE TESTS | | + +---------+ + + + | MCH POC | 30.1 | 27.0 - 34.0 pg | [facility], | | | | | | POINT OF | | | | | | CARE TESTS | | + +---------+ + + + | MCHC POC | 34.1 | 32.0 - 36.0 | [facility], | | | | | g/dL | POINT OF | | | | | | CARE TESTS | | + +---------+ + + + | RDW SD, POC | 40.1 | 35.1 - 46.3 fL | [facility], | | | | | | POINT OF | | | | | | CARE TESTS | | + +---------+ + + + | PLT POC | 405 (H) | 150 - 400 | [facility], | | | | | 10*3/uL | POINT OF | | | | | | CARE TESTS | | + +---------+ + + + | MPV POC | 9.5 (L) | 9.7 - 12.3 fL | [facility], | | | | | | POINT OF | | | | | | CARE TESTS | | + +---------+ + + + | NEUTROPHIL% | 50.6 | 50.0 - 70.0 % | [facility], | | | POC | | | POINT OF | | | | | | CARE TESTS | | + +---------+ + + + | LYMPH% POC | 36.3 | 18 - 42 % | [facility], | | | | | | POINT OF | | | | | | CARE TESTS | | + +---------+ + + + | MONO %, POC | 7.6 | 3.5 - 9.0 % | [facility], | | | | | | POINT OF | | | | | | CARE TESTS | | + +---------+ + + + | EOS %, POC | 4.2 (H) | 1.0 - 3.0 % | [facility], | | | | | | POINT OF | | | | | | CARE TESTS | | + +---------+ + + + | BASO %, POC | 1.3 | 0.0 - 2.0 % | [facility], | | | | | | POINT OF | | | | | | CARE TESTS | | + +---------+ + + + | NEUTROPHIL# | 3.6 | 1.8 - 7.7 | [facility], | | | POC | | 10*3/uL | POINT OF | | | | | | CARE TESTS | | + +---------+ + + + | LYMPH# POC | 2.6 | 1.0 - 4.8 | [facility], | | | | | 10*3/uL | POINT OF | | | | | | CARE TESTS | | + +---------+ + + + | MONO #, POC | 0.5 | 0.1 - 0.9 | [facility], | | | | | 10*3/uL | POINT OF | | | | | | CARE TESTS | | + +---------+ + + + | EOS #, POC | 0.3 | 0.0 - 0.5 | [facility], | | | | | 10*3/uL | POINT OF | | | | | | CARE TESTS | | + +---------+ + + + | BASO #, POC [...] | [facility] | [address] | [place] [address] | | | OF CARE TESTS | | | | + + + + + MAGNESIUM, PLASMA (02/19/2018 1:44 PM PDT) + +-------+ + + + | Component | Value | Ref Range | Performed | Pathologist | | | | | At | Signature | + +-------+ + + + | MAGNESIUM,P | 2.3 | 1.6 - 2.6 mg/dL | [facility] [...] [facility] | [address] | [place] [address] | | | SERVICES, ANTONI | [address] | | | + + + + + URINE, MICROSCOPIC EXAM (02/19/2018 1:44 PM PDT) + +---------+ + + [...] + + + | WHITE CELLS | 3 | 0 - 5 /hpf | [facility] [...] | + + + + + | [facility] | [address] | [place] [address] | | | SERVICES, CORE | [address] | | | + + + + + PHOSPHORUS, PLASMA (02/19/2018 1:44 PM PDT) + +-------+ + + + | Component | Value | Ref Range | Performed | Pathologist | | | | | At | Signature | + +-------+ + + + | PHOSPHORUS, | 3.7 | 2.4 - 4.7 mg/dL | [facility] [...] [facility] | [address] | [place] [address] | | | SERVICES, CORE | [address] [...] | | + +--------+ +------+------+------+ | lidocaine (XYLOCAINE) 10 mg/mL | Given | 02/19/20 | 5 mg | | | | (1 %) injection infiltration, | | 18 2:10 | | | | | ONCE, 1 dose, 02/19/18 at 1430 | | PM PDT | | | | + +--------+ +------+------+------+ +---+---+ | | | +---+---+ documented in this encounter"
--- OUTSIDE RECORDS SUMMARY | ~2019-01-30 | XMS | Encounter Summary ---
Demographics + + + | Address | [address] | | | [place] [address] | + + + | Home Phone [...] Team Providers + +------+ + | Care Clip Coater Name | Role | Phone | + +------+ + | Santo Gooden MD | PCP | | + +------+ + Encounter Details +--------+ + + + + | Date | Type | Department | Care Team | Description | +--------+ + + + + | 04/25/ | Pharmacy | Specialty Pharmacy | | | | 2017 | Visit | Services [address] | | | | | | [address] | | | | | | [place], [place] | | | | | | [address] | | | | | | [phone] | | | +--------+ + + + [...] [address] | | | | | | [place], [place] | | | | | | [address] | | | | | | [phone] | | | | | | | | +--------+ + + + + | 03/25/ | Office | Orthopedics | Lynda Basurto, | | | 2018 | Visit | | [address] | | | | | | [address] | | | | | | [place], [place] | | | | | | [address] | | | | | | [phone] | | | | | | | | +--------+ + + + + | 03/25/ | Office | Hematology & | Sandra Patel MD | | | 2018 | Visit | Oncology | [address] | | | | | | [place], [place] | | | | | | [address] | | | | | | [phone] | | | | | | | | +--------+ + + + + documented as of this encounter Visit Diagnoses Not on filedocumented in this encounter"
--- OUTSIDE RECORDS SUMMARY | ~2019-01-30 | XMS | Encounter Summary ---
Demographics + + + | Address | [address] | | | [place] [address] | + + + | Home Phone [...] Team Providers + +------+ + | Care Legal Transcriber Name | Role | Phone | + +------+ + | Santo Gooden MD | PCP | | + +------+ + Reason for Visit + + + | Reason | Comments | + + + | RN Care Management | Port deaccessed | + + + Encounter Details +--------+ + + + + | Date | Type | Department | Care Team | Description | +--------+ + + + + | 05/16/ | Telephone | Infectious | Malia Sam, | RN Care Management | | 2018 | | Diseases at [facility] | RN [address] | ([facility] deaccessed) | | | | Floor [address] | [facility] | | | | | [facility] | [place], [place] | | | | | Mailcode: L457 | [address] | | | | | Physicians Katie | [phone] | | | | | [place], [place] | | | | | | [address] | | | | | | [phone] | | | +--------+ + + + [...] | | | 2018 | | | [address] | | | | | | [place], [place] | | | | | | [address] | | | | | | [phone] | | | | | | | | +--------+ + + + + | 03/25/ | Office | Orthopedics | Lynda Basurto, | | | 2018 | Visit | | [address] | | | | | | [address] | | | | | | [facility] [place] | | | | | | [address] | | | | | | [phone] | | | | | | | | +--------+ + + + + | 03/25/ | Office | Hematology & | Sandra Patel MD | | | 2018 | Visit | Oncology | [address] | | | | | | [place], [place] | | | | | | [address] | | | | | | [phone] | | | | | | | | +--------+ + + + + documented as of this encounter Visit Diagnoses Not on filedocumented in this encounter"
--- OUTSIDE RECORDS SUMMARY | ~2019-01-30 | XMS | Encounter Summary ---
Demographics + + + | Address | [address] | | | [place] [address] | + + + | Home Phone | | + + + | Preferred Language | Unknown | + + + | Marital Status | Single | + + + | Congregational Affiliation | CAT | + + + [...] Team Providers + +------+ + | Care Peoplesoft Functional Analyst Name | Role | Phone | [...] | | 2018 | | Oncology at [place] | [address] | | | | | for [facility] Healing | [place], [place] | | | | | [address] | [address] | | | | | Mailcode: [place] | [phone] | | | | | for Health and | | | | | | Healing, [address] | | | | | | [facility] [place] | | | | | | [address] | | | | | | [phone] | | | +--------+ + + + [...] | | | 2018 | | | [address] | | | | | | [place], [place] | | | | | | [address] | | | | | | [phone] | | | | | | | | +--------+ + + + + | 03/25/ | Office | Orthopedics | Rosy BasurtoAlexander, | | | 2018 | Visit | | [address] | | | | | | [address] | | | | | | [place], [place] | | | | | | [address] | | | | | | [phone] | | | | | | | | +--------+ + + + + | 03/25/ | Office | Hematology & | Sandra Patel MD | | | 2018 | Visit | Oncology | [address] | | | | | | [place], [place] | | | | | | [address] | | | | | | [phone] | | | | | | | | +--------+ + + + + documented as of this encounter Visit Diagnoses Not on filedocumented in this encounter"
--- OUTSIDE RECORDS SUMMARY | ~2019-01-30 | XMS | Encounter Summary ---
Demographics + + + | Address | [address] | | | [place] [address] | + + + | Home Phone [...] + + + | Author | [facility] | + + + | Organization | [facility] | + + + | Address | Unknown | + + + | Phone | Unavailable | + + + Support + + +---------+ + | Name | Relationship | Address | Phone | + + +---------+ + | Kika Cage | ECON | Unknown | | + + +---------+ + Care Team Providers + +------+ + | Care Box Office Manager Name | Role | Phone | [...] | | | | | [address] [place], | | | | | | [place] [address] | | | +--------+--------+ + + + [...] [address] | | | | | | [place], [place] | | | | | | [address] | | | | | | [phone] | | | | | | | | +--------+ + + + + | 03/25/ | Office | Orthopedics | Lynda Basurto, | | | 2018 | Visit | | [address] | | | | | | [address] | | | | | | [place], [place] | | | | | | [address] | | | | | | [phone] | | | | | | | | +--------+ + + + + | 03/25/ | Office | Hematology & | Sandra Patel MD | | | 2018 | Visit | Oncology | [address] | | | | | | [place], [place] | | | | | | [address] | | | | | | [phone] | | | | | | | | +--------+ + + + + documented as of this encounter Visit Diagnoses Not on filedocumented in this encounter"
--- OUTSIDE RECORDS SUMMARY | ~2019-01-30 | XMS | Encounter Summary ---
Demographics + + + | Address | [address] | | | [place] [address] | + + + | Home Phone | | + + + | Preferred Language | Unknown | + + + | Marital Status | Single | + + + | Mu-Ism Affiliation | CAT | + + + | Race | Unknown | + + + | Ethnic Group | Not or | + + + Author + + + | Author | [facility] | + + + | Organization | [facility] | + + + | Address | Unknown | + + + | Phone | Unavailable | + + + Support + + +---------+ + | Name | Relationship | Address | Phone | + + +---------+ + | Kika Cage | ECON | Unknown | | + + +---------+ + Care Team Providers + +------+ + | Care Curtain Mender Name | Role | Phone | + [...] Incision AND | | 2018 | | [facility] [address] | [address] [facility] | [address] | | | | [address] Mailcode: [id number] | [address] | | | | | [facility] | [place], [place] | | | | | and | [address] | | | | | Floor [place], [place] | [phone] | | | | | [address] | | | | | | [phone] | | | +--------+ + + + [...] [address] | | | | | | [place], [place] | | | | | | [address] | | | | | | [phone] | | | | | | | | +--------+ + + + + | 03/25/ | Office | Orthopedics | Rosy BasurtoAlexander, | | | 2018 | Visit | | [address] | | | | | | [address] | | | | | | [place], [place] | | | | | | [address] | | | | | | [phone] | | | | | | | | +--------+ + + + + | 03/25/ | Office | Hematology & | Sandra Patel MD | | | 2018 | Visit | Oncology | [address] | | | | | | [place], [place] | | | | | | [address] | | | | | | [phone] | | | | | | | | +--------+ + + + + documented as of this encounter Visit Diagnoses Not on filedocumented in this encounter"
--- OUTSIDE RECORDS SUMMARY | ~2019-01-30 | XMS | Encounter Summary ---
Demographics + + + | Address | [address] | | | [place] [address] | + + + | Home Phone [...] Author + + + | Author | [facility] | + + + | Organization | [facility] | + + + | Address | Unknown | + + + | Phone | Unavailable | + + + Support + + +---------+ + | Name | Relationship | Address | Phone | + + +---------+ + | Kika Cage | ECON | Unknown | | + + +---------+ + Care Team Providers + +------+ + | Care Railroad Design Consultant Name | Role | Phone | + [...] | 2018 | Encounter | Oncology at [facility] | [address] | | | | | [address] | [place] [address] | | | | | Mailcode: [place] | | | | | | [facility] | | | | | | Healing, [address] | | | | | | [place], [place] | | | | | | [address] | | | | | | [phone] | | | +--------+ + + + [...] | | | 2018 | | | [address] | | | | | | [place], [place] | | | | | | [address] | | | | | | [phone] | | | | | | | | +--------+ + + + + | 03/25/ | Office | Orthopedics | Lydna Basurto, | | | 2018 | Visit | | [address] | | | | | | [address] | | | | | | [place], [place] | | | | | | [address] | | | | | | [phone] | | | | | | | | +--------+ + + + + | 03/25/ | Office | Hematology & | Sandra Patel MD | | | 2019 | Visit | Oncology | [address] | | | | | | [place], [place] | | | | | | [address] | | | | | | [phone] | | | | | | | [...] [facility] | [address] | [place] [address] | | | OF CARE TESTS | [...] | [facility] | [address] | [place] [address] | | | OF CARE TESTS | [...] [facility] | [address] | [place] [address] | | | SERVICES, ANTONI | PARK [...] | + + + + + | [facility] | [address] | [place] [address] | | | SERVICES, CORE | ARMANDO [...] [facility] | [address] | [place] [address] | | | SERVICES, CORE | PARK [...]
--- OUTSIDE RECORDS SUMMARY | ~2019-01-30 | XMS | Encounter Summary ---
Demographics + + + | Address | [address] | | | [place] [address] | + + + | Home Phone [...] + + + | Author | [facility] | + + + | Organization | [facility] | + + + | Address | Unknown | + + + | Phone | Unavailable | + + + Support + + +---------+ + | Name | Relationship | Address | Phone | + + +---------+ + | Kika Cage | ECON | Unknown | | + + +---------+ + Care Team Providers + +------+ + | Care Veneer Stapler Name | Role | Phone | + [...] + + | 03/12/ | Hospital | [facility] [address] | Guero Vargas MD | | | 2018 - | Encounter | [facility] | [address] | | | | | Road Mailcode: | [place], [place] | | | 03/15/ | | [id number] | [address] | | | 2017 | | [place], | [phone] | | | | | [place] [address] | | | | | | [phone] | | | +--------+ + + + [...] + + + | Blood Pressure | 146/62 | 03/15/2018 5:35 PM | | | | | PDT | | + + + + + | Pulse | 97 | 03/15/2018 5:35 PM | | | | | PDT | | + + + + + | Temperature | 36.6 C (97.9 F) | 03/15/2018 5:35 PM | | | | | PDT | | + + + + + | Respiratory Rate | 16 | 03/15/2018 5:35 PM | | | | | PDT | | + + + + + | Oxygen Saturation | 97% | 03/15/2018 5:35 PM | | | | | PDT | | + + + + + | Inhaled Oxygen | - | - | | | Concentration | | | | + + + + + | Weight | 148.1 kg (326 lb 8 | 03/15/2018 6:56 AM | | | | oz) | PDT | | + + + + + | Height | 172.7 cm (5' 8") | 03/12/2018 6:22 PM | | | | | PDT | | + + + + + | Body Mass Index | 49.64 | 03/12/2018 6:22 PM | | | | | PDT [...] documented as of this encounter Discharge Summaries Leo Kim MD,PhD - 03/15/2018 11:01 AM PDTFormatting of this note might be differe nt from the original. [facility] Discharge Summary Discharging Provider: Leo Kim Discharging Attending Physician: Guero Vargas Hospital Stay: 3 day(s) PCP: Santo Gooden MD Admission Date: 03/12/2018 Discharge Date: 03/15/18 Hospital Stay: 3 day(s) Reason for Admission: High Risk Cehmotherapy Principal Final Diagnosis: Synovial Sarcoma Additional Diagnoses: Fluid volume overload Soft tissue infection Procedures: None Hospital Course: Tati Cage is a 32 y.o. 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 Patholog y: synovial sarcoma with extensive acute inflammation, abscess, and necrosis with negative m argins. Pt admitted for post op chemotherapy C2D1 Ifos/Epirubicin. 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 C1 c/b delayed nausea, mucositis, and neutropenic fever. pt tolerating chemotherapy with no s/sxs of encephalopathy, n/v or hematuria. Will continue with chemo as planned with close monitoring. - neulasta scheduled @ [facility] for 03/17 @ 10am. labs and port care @ [facility] start 03/21. Chemotherapy: C2D1 03/12/18 Ifos 2500mg/m^2 x 2.6 m^2with Mesna 2200mg in NaCl 0.9% for 2hrs q20hrs x 4doses Epirubicin 30mg/m2 x x 2.6 [id number] x 4doses Mesna 2200mg for 15minutes to be given 4hrs and 8hrs after the start of Ifosfamide Supportive care: Dexamethasone 20mg daily x 4doses=>decrease down to 8mg (03/14/18) as dex causing exacerba tion of anxiety, jitteriness/restlessness. Ondansetron 24mg daily x 4doses Olanzapine 5mg qhs.=> increase to 10mg qhs (03/14/18) d/t decreasing dex from 20mg down to 8 mg as dex causing exacerbation of anxiety, jitteriness/restlessness. Lorazepam 0.5mg prn q24hrs, prochloparazine 10mg PO/IV q6hrs prn 1L NaCl 0.9% bolus follow by MIVF 125mL/hr. - cont checking daily UA for hematuria while getting Ifos, repeat UA if RBC >/=10 hold Ifos if UA RBC remains >10. Call Urology for bladder irrigation if pt is symptomatic or having g ross hematuria. - cont to monitor closely for evidence of ifos neurotoxicity (somnolence, asterixis, confus ion, etc). Hold Ifos if pt having s/sxs of encephalopathy. # Delayed nausea:aggressive supportive care as above. As above decreasing dex down to 8m g daily from 20mg, increasing olanzapine from 5 to 10mg and start compazine 10mg q8hrs. Wesley l discharge pt with schedule dex x4, olanzapine 10mg qhs and scheduled compazine 10mg q8hrs for the first 2 days. # Heartburn: controlled with Zantac - will cont with Zantac 150mg bid=> switched to famotidine 40mg daily during admission as Z antac is not on formula. # Swelling in RLE:has not improved much since dc from [facility] 1 week ago, pt also havin g some pain. She is at high risk for DVT. Will get doppler to r/o, doppler negative. - cont enoxaparin 40mg bid for prophy. Using bid d/t pt's wt. - pt declined lasix. # depression/Anxiety: exacerbation of anxiety due to high dose dex. Adjustments to medicati on as above. - cont with home dose Citalopram 40mg daily - start [id number] qhs adjunct to citalopram and for CINV prophy # LLE Stump: Per Dr. Patel there is a risk of wound dehiscence with starting chemo, but the benefit of starting chemo outweighs the risk. Dr. Basurto saw pt in clinic 03/12, she remove d a few stitches but still left some in, Dr. Basurto cleared pt to have chemo . Dr. Basurto wi ll see pt back in clinic prior to C3. Pt c/o scant dc after showering and is very concern about infection. We have not been able to expressed or witnessed any purulent discharge. Cu rrently no s/sxs of infection based on physical exam, however anticipate pt will become neut ropenic a few days after discharge. She was hospitalized for neutropenic fever after C1, sanchez s been in/out of hospital reasonable to start pt on prophy abx course this time with clindam ycin to also cover for MRSA. - Will cont to monitor surgical wound closely. # stump pain/phantom pain:better control. Pt self titrated lyrica up to 225mg a few days after dc from hospital for C1 chemo. - cont with lyrica 225mg bid - Oxycodone 5-15mg q3hrs prn # allergies: cont with loratadine. # constipation prophy: last bm was 03/14/18. - cont miralax daily - prn senna s bid # Fertility: per Dr. Patel's note, patient reports infertility at baseline (tried for 8 yea rs), thus no preservation strategy indicated. Currently Mirena for endometriosis. Tati Cage is a 32 y.o. 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 Pathol ogy: synovial sarcoma with extensive acute inflammation, abscess, and necrosis with negative margins. Pt admitted for post op chemotherapy C2D1 Ifos/Epirubicin. 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 C1 c/b delayed nausea, mucositis, and neutropenic fever. Pt tolerated C 2 without complication - neulasta scheduled @ [facility] for 03/17 @ 10am. labs and port care @ [facility] start 03/21. Chemotherapy: C2D1 03/12/18 Ifos 2500mg/m^2 x 2.6 m^2with Mesna 2200mg in NaCl 0.9% for 2hrs q20hrs x 4doses Epirubicin 30mg/m2 x x 2.6 [id number] x 4doses Mesna 2200mg for 15minutes to be given 4hrs and 8hrs after the start of Ifosfamide Supportive care: Dexamethasone 20mg daily x 4doses=>decreased down to 8mg (03/14/18) as dex causing exacerb ation of anxiety, jitteriness/restlessness. Ondansetron 24mg daily x 4doses Olanzapine 5mg qhs.=> increased to 10mg qhs (03/14/18) d/t decreasing dex from 20mg down to 8mg as dex causing exacerbation of anxiety, jitteriness/restlessness. Lorazepam 0.5mg prn q24hrs, prochloparazine 10mg PO/IV q6hrs prn 1L NaCl 0.9% bolus follow by MIVF 125mL/hr. # Delayed nausea:aggressive supportive care as above. As above decreasing dex down to 8m g daily from 20mg, increasing olanzapine from 5 to 10mg and start compazine 10mg q8hrs. Wesley l discharge pt with schedule dex x4, olanzapine 10mg qhs and scheduled compazine 10mg q8hrs for the first 2 days. # Heartburn: controlled with Zantac - will cont with Zantac 150mg bid=> switched to famotidine 40mg daily during admission as Z antac is not on formula. # Swelling in RLE:has not improved much since dc from [facility] 1 week ago, pt also havin g some pain. She is at high risk for DVT. Will get doppler to r/o, doppler negative. - cont enoxaparin 40mg bid for prophy. Using bid d/t pt's wt. - pt declined lasix. # depression/Anxiety: exacerbation of anxiety due to high dose dex. Adjustments to medicati on as above. - cont with home dose Citalopram 40mg daily - start [id number] qhs adjunct to citalopram and for CINV prophy # LLE Stump: Per Dr. Patel there is a risk of wound dehiscence with starting chemo, but the benefit of starting chemo outweighs the risk. Dr. Basurto saw pt in clinic 03/12, she remove d a few stitches but still left some in, Dr. Basurto cleared pt to have chemo . Dr. Basurto wi ll see pt back in clinic prior to C3. Pt c/o scant dc after showering and is very concern about infection. We have not been able to expressed or witnessed any purulent discharge. Cu rrently no s/sxs of infection based on physical exam, however anticipate pt will become neut ropenic a few days after discharge. She was hospitalized for neutropenic fever after C1, sanchez s been in/out of hospital reasonable to start pt on prophy abx course this time with clindam ycin to also cover for MRSA. # stump pain/phantom pain:better control. Pt self titrated lyrica up to 225mg a few days after dc from hospital for C1 chemo. - cont with lyrica 225mg bid - Oxycodone 5-15mg q3hrs prn # allergies: cont with loratadine. # constipation prophy: last bm was 03/14/18. - cont miralax daily - prn senna s bid # Fertility: per Dr. Patel's note, patient reports infertility at baseline (tried for 8 yea rs), thus no preservation strategy indicated. Currently Mirena for endometriosis. Discharge Medications: Tati Cage Home Medication Instructions SAUD:[id number] Printed on:03/15/18 8793 Medication Information citalopram 40 mg oral tablet Take 40 mg by mouth once daily. clindamycin 300 mg oral capsule Take 1 capsule by mouth every six hours for 11 days. Indications: skin infection dexamethasone 4 mg oral tablet Take 1 tablet by mouth once daily. Indications: Prevention of Chemotherapy-Induced Nausea a nd Vomiting hydroCHLOROthiazide 25 mg oral tablet Take 25 mg by mouth once daily. Iyamfufnc-Mlayottik-Xj-Mag-Sim [id number] mg/30 mL mucous membrane mouthwash Take 5 mL by mouth four times daily as needed. lidocaine-prilocaine (EMLA) 2.5-2.5 % topical cream Apply to affected area as needed. Apply a thick layer to intact skin and cover with an occl usive dressing. loratadine (CLARITIN) 10 mg oral tablet Take 10 mg by mouth once daily. LORazepam 0.5 mg oral tablet Take 1 tablet by mouth every six hours as needed for anxiety (1st line nausea/vomiting). [facility] [place]side commode for nighttime use following foot amputation. nystatin 100,000 unit/gram topical powder Apply to affected area two times daily. Apply to candidal lesions until lesions have healed . Indications: skin infection, redness in pannus, skin folds OLANZapine 10 mg oral tablet Take 1 tablet by mouth once daily at bedtime. Indications: Cancer Chemotherapy-Induced Naus ea and Vomiting, Depression Treatment Adjunct ondansetron 8 mg oral tablet Take 1 tablet by mouth every twelve hours as needed (2nd line for nausea/vomiting). oxyCODONE (immediate release) 5 mg oral tablet Take 1 to 3 tablets by mouth every three hours as needed for moderate pain. Wean off soon and do not combine with other sedating meds like Clonazapam polyethylene glycol 17 gram oral powder in packet Mix 1 packet and take orally once daily. Take this medication while you are on narcotic marcos n medication. Hold for loose stool Indications: constipation pregabalin 225 mg oral capsule Take 1 capsule by mouth two times daily. Indications: Postoperative Acute Pain, neuropathy, phantom pain prochlorperazine 10 mg oral tablet Take 1 tablet by mouth every six hours as needed (Give as first line agent for acute or del ayed nausea/vomiting). Max dose: 40 mg/day ranitidine 150 mg oral tablet Take 150 mg by mouth once daily at bedtime. senna-docusate 8.6-50 mg oral tablet Take 2 tablets by mouth two times daily. Take this medication while you are on narcotic marcos n medication. Hold for loose stool Indications: constipation Rationale for Medication Changes: See hospital course Allergies: Allergies Allergen Reactions Chlorhexidine Pruritus Demerol [Meperidine Hcl] Pruritus Morphine Pruritus Additional Instructions: Condition on Discharge Good Diet Regular Regular diet- There are no restrictions to your diet. You may eat or drink whatever you pr efer, though healthy food choices are recommended. Activity As tolerated. Other Discharge Orders and Instructions Do not drive while taking narcotic pain medications. Drink at least 2 liters of fluid daily Call [facility]Onc Clinic at or after hours and on weekends call paging ope rator at [phone] ask for circulation sales representative doctor for Heme-Onc if you have any [...] Future Appointments Provider Department Dept Phone Center 04/02/2018 2:30 PM Hem Starter Nurse Hematology/Medical Oncology at [facility] [phone] [facility] 04/02/2018 3:00 PM Lynda Basurto [facility] Orthopaedics & Rehabilitation [phone] [facility] 04/02/2018 3:40 PM Sandra Patel Hematology/Medical Oncology at [place] [address] [phone] [facility] Schedule the following appointment(s) when you get home [facility]. Go on 03/17/2018. Why: neulasta and labs appointment @ 10am. please make appointments for weekly lab draws while you're in. Contact information Phone #: [phone] Discharge Physical Exam: Last 24 hour min/max Temp: 36.7 C (98.1 F) Temp Min: 36.3 C (97.3 F) Max: 36.7 C (98.1 F) Pulse: 82 Pulse Min: 82 Max: 100 Resp: 16 Resp Min: 16 Max: 16 BP: 142/71 BP Min: 133/67 Max: 142/71 SpO2: 95 % SpO2 Min: 95 % Max: 95 % Body mass index is 49.64 kg/m. General: adult female patient in NAD Neuro: AOx3, Psych: pleasant, anxious Skin: No rashes HEENT: oropharynx mucous membrane moist without lesions Chest: Clear to ascultation b/l; no wheezing, crackles CV: Regular rhythm rate, no murmur Abd: central obesity, normoactive bowel sounds, soft/Nontender/Nondistended , no hepatospl enomegaly, no masses Ext: +RLE edema. LLE stump: sutures noted, pink, no drainage, swelling, odor or pain to to uch noted. Lines: PORT accessed - NT, no erythema Associated attestation - Guero Vargas MD - 03/15/2018 11:26 AM PDTDate of Service: 2017 Medical Oncology Attending Note: I personally interviewed, examined the patient, and formulated the plan with the fellow, Dr Mcmullen. I agree with the attached documentation. Patient reports: fatigue. She was given la six last night and urinated frequently last night disrupting her sleep. She reports no other new symptoms today. I agree with the exam above. Significant findings include: General: Groggy, but arousable. Mom at bedside ENT: No thrush, moist mucus membranes CV; RRR, no rubs Resp: Clear to auscultation on anterior exam Abd: Non-tender, no masses Ext: Stump infection looks improved compared to admission. There is less erythema. I was not able to express any purulence from the wound Neuro: No focal motor or sensory deficits. Cranial nerves 2-12 intact Psych: Alert, affect appropriate. I agree with the fellow's assessment and stated plan of care. In brief, admitted for adjuv ant chemotherapy for high risk synovial sarcoma of the left foot. She had no signs of ifos induced toxicity. We started her on clindamycin as empiric treatment for cellulitis of the left stump. We discussed the option of lasix upon discharge but the patient declined that o ption. She will d/c tonight and receive GCSF on Saturday at [facility]. We had to reduce t he dosage of dexamethasone due to insomnia and anxiety. This should be taken into considera tion for future admissions. Guero Vargas MD Senior Sql Server Database Developerbulldozer press operator Medical Oncology and Hematology documented in this encounter Discharge Instructions Instructions Niurka Jimenez, LISA - 03/15/2018 Additional Instructions: Your last dose of chemotherapy was completed on 03-15-18 and you ar e on chemotherapy precuations until 03-17-18. Your dual lumen port-a-cath was flushed with he filiberto on the day of discharge, 03-15-18, and is due to be flushed again by 04-15-18, if not be fore. Discharge Nurse: NIURKA JIMENEZ RN Date: 03/15/2018 Discharge Time: 6:00 PM documented in this encounter Medications at Time [...] documented as of this encounter Progress Notes Camryn Flynn PA-C - 03/14/2018 7:10 AM PDTFormatting of this note might be different f rom the original. 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 She is admitted for C2D1 chemotherapy wi Ifos/Epirubicin. Interim History: had exacerbation of anxiety/jitteriness overnight. Tati had another episode of exacerbation of her anxiety d/t jitteriness and restlessness f rom dexamethasone again needing to have lorazepam 1mg to calm down. Pt reports surgical wou nd looking much better today. PT denies nausea/vomiting/confusion/hallucinations/vivid louisa ams/excessive sleepiness. +swelling in RLE. ROS: Remainder of complete 10 points review of systems negative except as above. Physical Exam: BP 115/60 | Pulse 99 | Temp 36.8 C (98.2 F) | RR 16 | Ht 1.727 m (5' 8") | Wt 144.8 kg (319 lb 3.6 oz) | SpO2 97% | BMI 48.54 kg/(m^2) Intake/Output Summary (Last 24 hours) at 03/14/18 0710 Last data filed at 03/14/18 0654 Gross per 24 hour Intake 6937.33 ml Output 4175 ml Net 2762.33 ml General: adult female patient in NAD Neuro: AOx3, Psych: pleasant, anxious Skin: No rashes HEENT: oropharynx mucous membrane moist without lesions Chest: Clear to ascultation b/l; no wheezing, crackles CV: Regular rhythm rate, no murmur Abd: central obesity, normoactive bowel sounds, soft/Nontender/Nondistended , no hepatospl enomegaly, no masses Ext: +RLE edema. LLE stump: sutures noted, pink, no drainage, swelling, odor or pain to to uch noted. Lines: PORT accessed - NT, no erythema Current Facility-Administered Medications Medication Dose Route Frequency Last Rate citalopram (CELEXA) tablet 40 mg 40 mg oral QPM clindamycin (CLEOCIN) capsule 300 mg 300 mg oral Q6H dexamethasone (DECADRON) tablet 20 mg 20 mg oral Q20H enoxaparin (LOVENOX) injection 40 mg 40 mg subcutaneous Q12H (Scheduled) epiRUBICIN injection 80 mg 30 mg/m2 (Treatment Plan Recorded) intravenous Q20H famotidine (PEPCID) tablet 40 mg 40 mg oral HS hydroCHLOROthiazide (HYDRODIURIL) tablet 25 mg 25 mg oral DAILY ifosfamide (IFEX) 2,500 mg/m2 = 6,500 mg, mesna (MESNEX) 2,200 mg in NaCl 0.9 % (NS) IV 2,500 mg/m2 (Treatment Plan Recorded) intravenous Q20H Stopped (03/13/18 1945) loratadine (CLARITIN) tablet 10 mg 10 mg oral DAILY mesna (MESNEX) 2,200 mg in NaCl 0.9 % (NS) IV 850 mg/m2 (Treatment Plan Recorded) intr avenous Q20H Stopped (03/13/18 2100) mesna (MESNEX) 2,200 mg in NaCl 0.9 % (NS) IV 850 mg/m2 (Treatment Plan Recorded) intr avenous Q20H Stopped (03/14/18 0115) nystatin (MYCOSTATIN) powder topical BID OLANZapine (ZYPREXA) tablet 5 mg 5 mg oral HS ondansetron (ZOFRAN) tablet 24 mg 24 mg oral Q20H polyethylene glycol (MIRALAX) packet 17 g 1 packet oral DAILY pregabalin (LYRICA) capsule 225 mg 225 mg oral BID Current Facility-Administered Medications Medication Dose Route Frequency Last Rate LORazepam (ATIVAN) tablet 0.5-1 mg 0.5-1 mg oral Q8H PRN magnesium oxide (MAG-OX) tablet 800 mg 800 mg oral QID PRN oxyCODONE (immediate release) (ROXICODONE) tablet 5-15 mg 5-15 mg oral Q3H PRN potassium chloride SR (K-DUR) tablet 40 mEq 40 mEq oral PRN potassium phosphate IV 30 mmol 30 mmol intravenous PRN Or potassium phosphate IV 40 mmol 40 mmol intravenous PRN prochlorperazine (COMPAZINE) injection 10 mg 10 mg intravenous Q4H PRN prochlorperazine (COMPAZINE) tablet 10 mg 10 mg oral Q6H PRN senna-docusate (SENOKOT S) 8.6-50 mg 2 tablet 2 tablet oral BID PRN sodium phosphate IV 30 mmol 30 mmol intravenous PRN sodium phosphate IV 40 mmol 40 mmol intravenous PRN Lab/X-ray findings: CBC with diff last 72 hours (or 3 results) Recent Labs 03/12/18 1414 WBC 6.9 HB 10.2* HCT 31.0* PLT 559* MONOPERC 14.4* BASOPERC 3.2* EOSPERC 0.1* Chemistries: Last 72 Hours (or 3 results): Recent Labs 03/12/18 1420 NA 141 K 3.4 CL 102 BICARB 27 BUN 13 CR 0.8 GLU 88 CA 9.3 Liver Tests: Last 72 hours (or 3 results) Recent Labs 03/12/18 1420 AST 23 ALT 25 TBILI 0.5 AP 55 ALB 3.5 TP 7.1 Results for orders placed or performed during the hospital encounter of 03/14/18 URINE, MICROSCOPIC EXAM Result Value Ref Range RED CELLS 0 0 - 3 /hpf WHITE CELLS 1 0 - 5 /hpf BACTERIA Few (A) None /hpf YEAST (LAB) None None /hpf SQUAMOUS EPITHELIAL Few (A) None /hpf MUCOUS Few (A) None /hpf TRICHOMONAS None None /hpf NON-SQUAMOUS [...] 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 Patholog y: synovial sarcoma with extensive acute inflammation, abscess, and necrosis with negative m argins. Pt admitted for post op chemotherapy C2D1 Ifos/Epirubicin. 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 C1 c/b delayed nausea, mucositis, and neutropenic fever. pt tolerating chemotherapy with no s/sxs of encephalopathy, n/v or hematuria. Will continue with chemo as planned with close monitoring. - torie scheduled @ [facility] for 03/17 @ 10am. labs and port care @ [facility] start 03/21. Chemotherapy: C2D1 03/12/18 Ifos 2500mg/m^2 x 2.6 m^2 with Mesna 2200mg in NaCl 0.9% for 2hrs q20hrs x 4doses Epirubicin 30mg/m2 x x 2.6 [id number] x 4doses Mesna 2200mg for 15minutes to be given 4hrs and 8hrs after the start of Ifosfamide Supportive care: Dexamethasone 20mg daily x 4doses=>decrease down to 8mg (03/14/18) as dex causing exacerba tion of anxiety, jitteriness/restlessness. Ondansetron 24mg daily x 4doses Olanzapine 5mg qhs.=> increase to 10mg qhs (03/14/18) d/t decreasing dex from 20mg down to 8 mg as dex causing exacerbation of anxiety, jitteriness/restlessness. Lorazepam 0.5mg prn q24hrs, prochloparazine 10mg PO/IV q6hrs prn 1L NaCl 0.9% bolus follow by MIVF 125mL/hr. - cont checking daily UA for hematuria while getting Ifos, repeat UA if RBC >/=10 hold Ifos if UA RBC remains >10. Call Urology for bladder irrigation if pt is symptomatic or having g ross hematuria. - cont to monitor closely for evidence of ifos neurotoxicity (somnolence, asterixis, confus ion, etc). Hold Ifos if pt having s/sxs of encephalopathy. # Delayed nausea: aggressive supportive care as above. As above decreasing dex down to 8mg daily from 20mg, increasing olanzapine from 5 to 10mg and start compazine 10mg q8hrs. Will discharge pt with schedule dex x4, olanzapine 10mg qhs and scheduled compazine 10mg q8hrs f or the first 2 days. # Heartburn: controlled with Zantac - will cont with Zantac 150mg bid=> switched to famotidine 40mg daily during admission as Z antac is not on formula. # Swelling in RLE:has not improved much since dc from [facility] 1 week ago, pt also havin g some pain. She is at high risk for DVT. Will get doppler to r/o, doppler negative. - cont enoxaparin 40mg bid for prophy. Using bid d/t pt's wt. - pt declined lasix. # depression/Anxiety: exacerbation of anxiety due to high dose dex. Adjustments to medicati on as above. - cont with home dose Citalopram 40mg daily - start [id number] qhs adjunct to citalopram and for CINV prophy # LLE Stump: Per Dr. Patel there is a risk of wound dehiscence with starting chemo, but the benefit of starting chemo outweighs the risk. Dr. Basurto saw pt in clinic 03/12, she removed a few stitches but still left some in, Dr. Basurto cleared pt to have chemo . Dr. Basurto will see pt back in clinic prior to C3. Pt c/o scant dc after showering and is very concern abo ut infection. We have not been able to expressed or witnessed any purulent discharge. Curre ntly no s/sxs of infection based on physical exam, however anticipate pt will become neutrop enic a few days after discharge. She was hospitalized for neutropenic fever after C1, has b een in/out of hospital reasonable to start pt on prophy abx course this time with clindamyci n to also cover for MRSA. - Will cont to monitor surgical wound closely. # stump pain/phantom pain: better control. Pt self titrated lyrica up to 225mg a few days a fter dc from hospital for C1 chemo. - cont with lyrica 225 mg bid - Oxycodone 5-15mg q3hrs prn # allergies: cont with loratadine. # constipation prophy: last bm was 03/14/18. - cont miralax daily - prn senna s bid # Fertility: per Dr. Patel's note, patient reports infertility at baseline (tried for 8 yea rs), thus no preservation strategy indicated. Currently Mirena for endometriosis. F:PO/IVF w/ chemo E:monitor and replace prn N:regular diet Ppx:prophy enoxaparin: 40mg BID due to pt's wt. encouragedambulationtid. Dispo:Inpatient status for high risk chemotherapy, aggressive supportive care and close m onitoring for toxicity. CODE: Full CAMRYN FLYNN, PA-C Medical Oncology/Hematology pager #[phone] Associated attestation - Guero Vargas MD - 03/15/2018 11:15 AM PDTDate of Service: 2017 Medical Oncology Attending Note: I personally interviewed, examined the patient, and formulated the plan with the PA, Rob Flynn. Significant overnight events: More anxiety last night and difficulty sleeping Patient reports: fatigue. I agree with the exam above. Significant findings include: General: Looks well, in NAD, pleasant ENT: No thrush, moist mucus membranes Chest: PORT site clean, dry, and intact. CV; RRR, no rubs Resp: Clear to auscultation Ext: Mild edema of the RLE. I was not able to visualize the incision today. Neuro: No focal motor or sensory deficits. Cranial nerves 2-12 intact Psych: Alert, affect appropriate. I agree with the PA's assessment and stated plan of care. 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 There are no signs of ifos induced INTERMODAL DISPATCHER toxicity. She is on clindamycin for her left stump incision which had early signs of in fection. Given that she will become neutropenic I have recommended prophylactic antibtoics. She displays no signs of infection. Guero Vargas MD Senior Sql Server Database Developerbulldozer press operator Medical Oncology and Hematology documented in this encounter Plan of Treatment +--------+ + + + + | Date | Type | Specialty | Care Team | Description | +--------+ + + + + | 03/25/ | Appointment | Radiology | Sandra Patel MD | | | 2019 | | | [address] | | | | | | [place], [place] | | | | | | [address] | | | | | | [phone] | | | | | | | | +--------+ + + + + | 03/25/ | Office | Orthopedics | Lynda Basurto, | | | 2018 | Visit | | [address] | | | | | | [address] | | | | | | [place], [place] | | | | | | [address] | | | | | | [phone] | | | | | | | | +--------+ + + + + | 03/25/ | Office | Hematology & | Sandra Patel MD | | | 2018 | Visit | Oncology | [address] | | | | | | [place], [place] | | | | | | [address] | | | | | | [phone] | | | | | | | [...] starting | | | | | | 03/12/2018 | + +------+--------+ + + | URINE SCREEN FOR | Lab | Routin | | As Needed for 1 | | CULTURE | | e | | Occurrences starting | | | | | | 03/12/2018 | + +------+--------+ + + | UA, DIPSTICK ONLY | Lab | Routin | | As Needed for 1 | | | | e | | Occurrences starting | | | | | | 03/12/2018 | + +------+--------+ + + | CULTURE, URINE BACTI | Lab | Routin | | As Needed for 1 | | | | e | | Occurrences starting | | | | | | 03/12/2018 | + +------+--------+ + + documented as of this encounter Procedures + +--------+ + + + | Procedure Name | Priori | Date/Time | Associated Diagnosis | Comments | | | ty | | | | + +--------+ + + + | URINE, MICROSCOPIC | Routin | 03/15/2018 | Synovial sarcoma | Results for this | | EXAM | e | 6:15 AM | ([facility]) | procedure are in the | | | | PDT | | results section. | + +--------+ + + + | URINE, MICROSCOPIC | Routin | 03/14/2018 | Synovial sarcoma | Results for this | | EXAM | e | 9:33 AM | (HCC) | procedure are in the | | | | PDT | | results section. | + +--------+ + + + | URINE, MICROSCOPIC | Routin | 03/13/2018 | Synovial sarcoma | Results for this | | EXAM | e | 2:55 PM | (HCC) | procedure are in the | | | | PDT | | results section. | + +--------+ + + + | VASC LAB VENOUS | Routin | 03/13/2018 | | Results for this | | DUPLEX LOWER | e | 12:08 PM | | procedure are in the | | EXTREMITY RT | | PDT | | results section. | + +--------+ + + + documented in this encounter Results URINE, MICROSCOPIC EXAM (03/15/2018 6:15 AM PDT) + +---------+ + + + [...] + | [facility] | [address] | [place] [address] | | | SERVICES, ANTONI | [address] | | | + + + + + URINE, MICROSCOPIC EXAM (03/14/2018 9:33 AM PDT) + +---------+ + + + [...] +---------+ + + + | SQUAMOUS | Yaneli (A) | None /hpf | [facility] | [...] | + +---------+ + + + | NON-SQUAMAUTUMN | Yaneli (A) | None /hpf | [facility] | [...] | + + + + + | [facility] | [address] | [place] [address] | | | SERVICES, CORE | [address] | | | + + + + + URINE, MICROSCOPIC EXAM (03/13/2018 2:55 PM PDT) + +---------+ + + + [...] | + + + + + | [facility] | [address] | [place] [address] | | | SILVIO, ANTONI | [address] | | | + + + + + VASC LAB VENOUS DUPLEX LOWER EXTREMITY RT (03/13/2018 12:08 PM PDT) + + | Specimen | + + | | + + + + + | Narrative | Performed At | + + + | Right: The duplex scanner was used to examine the deep and | [facility] | | superficial veins of the right lower extremity. The right lower | RADIOLOGY VASC | | extremity veins are patent with normal flow and responses to | US | | augmentation and compression maneuvers and no thrombus is | | | noted. The left leg common femoral vein was examined and is patent | | | with normal flow. Conclusions: A normal venous examination of | | | the right lower extremity. No venous thrombosis was detected. The | | | left lower extremity was not examined. I have personally | | | reviewed the images and, if necessary, edited the report. I agree | | | with the report as now presented. | | + + + + + | Procedure Note | + + | Service Account, Enjoyor In Interface - 03/13/2018 12:35 PM PDT Right: The duplex | | scanner was used to examine the deep and superficial veins of the right lower | | extremity. The right lower extremity veins are patent with normal flow and responses to | | augmentation and compression maneuvers and no thrombus is noted. The left leg common | | femoral vein was examined and is patent with normal flow.Conclusions: A normal venous | | examination of the right lower extremity. No venous thrombosis was detected. The left | | lower extremity was not examined.I have personally reviewed the images and, if | | necessary, edited the report. I agree with the report as now presented. | | | |I have personally reviewed the images and, if necessary, edited the report. I agree with t he report as now presented. | + + + +---------+ + + | Performing | Address | City/State/Zipcode | Phone Number | | Organization | | | | + +---------+ + + | [facility] | | | | | [facility] | | | | + +---------+ + + documented in this encounter Visit Diagnoses + + | Diagnosis | + + | 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, site unspecified | + + documented in this encounter Administered Medications + +--------+ +-------+------+------+ | Medication Order | MAR | Action | Dose | Rate | Site | | | Action | Date | | | | + +--------+ +-------+------+------+ | citalopram (CELEXA) tablet 40 | Given | 03/14/20 | 40 mg | | | | mg 40 mg, oral, EVERY EVENING, | | 18 9:00 | | | | | First dose on Sat03/12/18 at | | PM PDT | | | | | 2145, Until Discontinued | | | | | | + +--------+ +-------+------+------+ +-------+ +-------+---+---+ | Given | 03/13/20 | 40 mg | | | | | 18 8:07 | | | | | | PM PDT | | | | +-------+ +-------+---+---+ +---+---+ | | | +---+---+ + +-------+ +--------+---+---+ | clindamycin (CLEOCIN) capsule | Given | 03/15/20 | 300 mg | | | | 300 mg 300 mg, oral, EVERY 6 | | 18 1:46 | | | | | HOURS, 40 doses, First dose on | | PM PDT | | | | | [facility] 03/13/18 at 1245, Last dose on | | | | | | | 03/23/18 at 0800 | | | | | | + +-------+ +--------+---+---+ +-------+ +--------+---+---+ | Given | 03/15/20 | 300 mg | | | | | 18 8:09 | | | | | | AM PDT | | | | +-------+ +--------+---+---+ | Given | 03/15/20 | 300 mg | | | | | 18 1:46 | | | | | | AM PDT | | | | +-------+ +--------+---+---+ +---+---+ | | | +---+---+ + +-------+ +-------+---+---+ | dexamethasone (DECADRON) tablet | Given | 03/13/20 | 20 mg | | | | 20 mg 20 mg, oral, EVERY 20 | | 18 4:08 | | | | | HOURS, 4 doses, First dose on Wed | | PM PDT | | | | | 03/12/18 at 2000, Last dose on | | | | | | | 03/15/18 at 0800 | | | | | | + +-------+ +-------+---+---+ +-------+ +-------+---+---+ | Given | 03/12/20 | 20 mg | | | | | 18 8:28 | | | | | | PM PDT | | | | +-------+ +-------+---+---+ +---+---+ | | | +---+---+ + +-------+ +------+---+---+ | dexamethasone (DECADRON) tablet | Given | 03/15/20 | 8 mg | | | | 8 mg 8 mg, oral, EVERY 20 | | 18 8:09 | | | | | HOURS, 2 doses, First dose on Sat | | AM PDT | | | | | 03/14/18 at 1200, Last dose on | | | | | | | 03/15/18 at 0800 | | | | | | + +-------+ +------+---+---+ +-------+ +------+---+---+ | Given | 03/14/20 | 8 mg | | | | | 18 12:30 | | | | | | PM PDT | | | | +-------+ +------+---+---+ +---+---+ | | | +---+---+ + +-------+ +-------+---+---------+ | enoxaparin (LOVENOX) injection | Given | 03/15/20 | 40 mg | | Abdomen | | 40 mg 40 mg, subcutaneous, EVERY | | 18 8:08 | | | | | 12 HOURS, First dose on Sat | | AM PDT | | | | | 03/12/18 at 2100, Until | | | | | | | Discontinued | | | | | | + +-------+ +-------+---+---------+ +-------+ +-------+---+---------+ | Given | 03/14/20 | 40 mg | | Abdomen | | | 18 8:56 | | | | | | PM PDT | | | | +-------+ +-------+---+---------+ | Given | 03/14/20 | 40 mg | | Abdomen | | | 18 8:49 | | | | | | AM PDT | | | | +-------+ +-------+---+---------+ +---+---+ | | | +---+---+ + +---------+ +-------+---+---+ | epiRUBICIN injection 80 mg 80 | New Bag | 03/15/20 | 80 mg | | | | mg (rounded from 78 mg = 30 mg/m2 | | 18 9:08 | | | | | | | AM PDT | | | | | 2.6 m2 Treatment plan recorded | | | | | | | BSA), intravenous, EVERY 20 | | | | | | | HOURS, 4 doses, First dose on Sat | | | | | | | 03/12/18 at 2100, Last dose on | | | | | | | 03/15/18 at 0900 | | | | | | + +---------+ +-------+---+---+ +---------+ +-------+---+---+ | New Bag | 03/14/20 | 80 mg | | | | | 18 1:25 | | | | | | PM PDT | | | | +---------+ +-------+---+---+ | New Bag | 03/13/20 | 80 mg | | | | | 18 5:23 | | | | | | PM PDT | | | | +---------+ +-------+---+---+ +---+---+ | | | +---+---+ + +-------+ +-------+---+---+ | famotidine (PEPCID) tablet 40 | Given | 03/15/20 | 40 mg | | | | mg 40 mg, oral, AT BEDTIME, | | 18 3:39 | | | | | First dose on Sat03/12/18 at | | PM PDT | | | | | 2200, Until Discontinued | | | | | | + +-------+ +-------+---+---+ +-------+ +-------+---+---+ | Given | 03/14/20 | 40 mg | | | | | 18 9:00 | | | | | | PM PDT | | | | +-------+ +-------+---+---+ | Given | 03/13/20 | 40 mg | | | | | 18 8:07 | | | | | | PM PDT | | | | +-------+ +-------+---+---+ +---+---+ | | | +---+---+ + +-------+ +-------+---+---+ | furosemide (LASIX) injection 20 | Given | 03/14/20 | 20 mg | | | | mg 20 mg, intravenous, ONCE, 1 | | 18 8:56 | | | | | dose, Clarissa 03/14/18 at 2015 | | PM PDT | | | | + +-------+ +-------+---+---+ + +---+ | | | + +---+ | heparin 10 unit/mL IV flush | | | syringe 50 Units 50 Units, | | | intravenous, NEEDED, Starting | | | 03/14/18 at 1819, Until Sat | | | 03/15/18 at 2355, hi | | + +---+ | | | + +---+ + +-------+ +-------+---+---+ | heparin 100 unit/mL IV flush | Given | 03/15/20 | 500 | | | | 500 Units 500 Units, | | 18 5:28 | Units | | | | intravenous, NEEDED, Starting | | PM PDT | | | | | 03/14/18 at 1819, Until Sat | | | | | | | 03/15/18 at 2355, deaccessing | | | | | | | line/port | | | | | | + +-------+ +-------+---+---+ +-------+ +-------+---+---+ | Given | 03/15/20 | 500 | | | | | 18 5:27 | Units | | | | | PM PDT | | | | +-------+ +-------+---+---+ +---+---+ | | | +---+---+ + +-------+ +-------+---+---+ | hydroCHLOROthiazide | Given | 03/15/20 | 25 mg | | | | (HYDRODIURIL) tablet 25 mg 25 | | 18 8:09 | | | | | mg, oral, DAILY, First dose on | | AM PDT | | | | | 03/12/18 at 2045, Until | | | | | | | Discontinued | | | | | | + +-------+ +-------+---+---+ +-------+ +-------+---+---+ | Given | 03/14/20 | 25 mg | | | | | 18 8:40 | | | | | | AM PDT | | | | +-------+ +-------+---+---+ | Given | 03/13/20 | 25 mg | | | | | 18 8:26 | | | | | | AM PDT | | | | +-------+ +-------+---+---+ +---+---+ | | | +---+---+ + +---------+ + +-------+---+ | ifosfamide (IFEX) 2,500 mg/m2 = | New Bag | 03/15/20 | 6,500 mg | 250 | | | 6,500 mg, mesna (MESNEX) 2,200 | | 18 9:09 | | mL/hr | | | mg in NaCl 0.9 % (NS) IV 6,500 | | AM PDT | | | | | mg (2,500 mg/m2 | | | | | | | 2.6 m2 Treatment plan recorded | | | | | | | BSA), intravenous, Administer | | | | | | | over 2 Hours, EVERY 20 HOURS, 4 | | | | | | | doses, First dose on Sat03/12/18 | | | | | | | at 2100, Last dose on Sat03/15/18 | | | | | | | at 0900, Per [facility] Committee | | | | | | | authorization, dose | | | | | | | standardization has been approved | | | | | | | for this order. Dose changed | | | | | | | from 2210mg (= 850mg/m2/dose) to | | | | | | | 2200 mg. HIGH ALERT | | | | | | | MEDICATION-CHEMOTHERAPY | | | | | | | Irritant. Refrigerate., | | | | | | + +---------+ + +-------+---+ +---------+ + +-------+---+ | New Bag | 03/14/20 | 6,500 mg | 250 | | | | 18 1:41 | | mL/hr | | | | PM PDT | | | | +---------+ + +-------+---+ | New Bag | 03/13/20 | 6,500 mg | 250 | | | | 18 5:33 | | mL/hr | | | | PM PDT | | | | +---------+ + +-------+---+ +---+---+ | | | +---+---+ + +-------+ +-------+---+---+ | loratadine (CLARITIN) tablet 10 | Given | 03/15/20 | 10 mg | | | | mg 10 mg, oral, DAILY, First | | 18 8:09 | | | | | dose on Sat03/12/18 at 2045, | | AM PDT | | | | | Until Discontinued | | | | | | + +-------+ +-------+---+---+ +-------+ +-------+---+---+ | Given | 03/14/20 | 10 mg | | | | | 18 8:39 | | | | | | AM PDT | | | | +-------+ +-------+---+---+ | Given | 03/13/20 | 10 mg | | | | | 18 8:26 | | | | | | AM PDT | | | | +-------+ +-------+---+---+ +---+---+ | | | +---+---+ + +-------+ +--------+---+---+ | LORazepam (ATIVAN) tablet 0.5 | Given | 03/13/20 | 0.5 mg | | | | mg 0.5 mg, oral, EVERY 24 HOURS | | 18 2:18 | | | | | NEEDED, Starting 03/12/18 | | AM PDT | | | | | at 2000, Until Bettie 03/13/18 at | | | | | | | 0231, anxiety premedication for | | | | | | | chemo | | | | | | + +-------+ +--------+---+---+ +---+---+ | | | +---+---+ + +-------+ +--------+---+---+ | LORazepam (ATIVAN) tablet 0.5-1 | Given | 03/13/20 | 0.5 mg | | | | mg 0.5-1 mg, oral, EVERY 8 | | 18 9:38 | | | | | HOURS NEEDED, Starting Bettie | | PM PDT | | | | | 03/13/18 at 0245, Until Sat | | | | | | | 03/15/18 at 2355, anxiety, also | | | | | | | premedication for chemo | | | | | | + +-------+ +--------+---+---+ +-------+ +--------+---+---+ | Given | 03/13/20 | 0.5 mg | | | | | 18 8:07 | | | | | | PM PDT | | | | +-------+ +--------+---+---+ + +---+ | | | + +---+ | magnesium oxide (MAG-OX) tablet | | | 800 mg 800 mg, oral, FOUR TIMES | | | DAILY NEEDED, Starting Wed | | | 03/12/18 at 1851, Until Sat | | | 03/15/18 at 2355, hypomagnesemia | | + +---+ | | | + +---+ + +---------+ + +-------+---+ | mesna (MESNEX) 2,200 mg in NaCl | New Bag | 03/15/20 | 2,200 mg | 488 | | | 0.9 % (NS) IV 2,200 mg (rounded | | 18 1:01 | | mL/hr | | | from 2,210 mg = 850 mg/m2 | | PM PDT | | | | | 2.6 m2 Treatment plan recorded | | | | | | | BSA), intravenous, Administer | | | | | | | over 15 Minutes, EVERY 20 HOURS, | | | | | | | 4 doses, First dose on Bettie | | | | | | | 03/13/18 at 0100, Last dose on Sat | | | | | | | 03/15/18 at 1300, Administer 4 | | | | | | | hours after the start of | | | | | | | Ifosfamide, | | | | | | + +---------+ + +-------+---+ +---------+ + +-------+---+ | New Bag | 03/14/20 | 2,200 mg | 488 | | | | 18 5:28 | | mL/hr | | | | PM PDT | | | | +---------+ + +-------+---+ | New Bag | 03/13/20 | 2,200 mg | 488 | | | | 18 8:45 | | mL/hr | | | | PM PDT | | | | +---------+ + +-------+---+ +---+---+ | | | +---+---+ + +---------+ + +-------+---+ | mesna (MESNEX) 2,200 mg in NaCl | New Bag | 03/15/20 | 2,200 mg | 488 | | | 0.9 % (NS) IV 2,200 mg (rounded | | 18 5:06 | | mL/hr | | | from 2,210 mg = 850 mg/m2 | | PM PDT | | | | | 2.6 m2 Treatment plan recorded | | | | | | | BSA), intravenous, Administer | | | | | | | over 15 Minutes, EVERY 20 HOURS, | | | | | | | 4 doses, First dose on Bettie | | | | | | | 03/13/18 at 0500, Last dose on Sat | | | | | | | 03/15/18 at 1700, Administer 8 | | | | | | | hours after the start of | | | | | | | Ifosfamide, | | | | | | + +---------+ + +-------+---+ +---------+ + +-------+---+ | New Bag | 03/14/20 | 2,200 mg | 488 | | | | 18 8:56 | | mL/hr | | | | PM PDT | | | | +---------+ + +-------+---+ | New Bag | 03/14/20 | 2,200 mg | 488 | | | | 18 1:00 | | mL/hr | | | | AM PDT | | | | +---------+ + +-------+---+ +---+---+ | | | +---+---+ + +-------+ +---+---+---+ | nystatin (MYCOSTATIN) powder | Given | 03/15/20 | | | | | topical, TWICE DAILY, First dose | | 18 1:03 | | | | | on Bettie 03/13/18 at 2100, Until | | PM PDT | | | | | Discontinued | | | | | | + +-------+ +---+---+---+ + + +---+---+---+ | Given | 03/14/20 | | | | | | 18 9:02 | | | | | | PM PDT | | | | + + +---+---+---+ | Pt Administered | 03/14/20 | | | | | | 18 10:03 | | | | | | AM PDT | | | | + + +---+---+---+ +---+---+ | | | +---+---+ + +-------+ +-------+---+---+ | OLANZapine (ZYPREXA) tablet 10 | Given | 03/14/20 | 10 mg | | | | mg 10 mg, oral, AT BEDTIME, | | 18 10:52 | | | | | First dose on Sat03/14/18 at | | PM PDT | | | | | 2200, Until Discontinued | | | | | | + +-------+ +-------+---+---+ +---+---+ | | | +---+---+ + +-------+ +------+---+---+ | OLANZapine (ZYPREXA) tablet 5 | Given | 03/13/20 | 5 mg | | | | mg 5 mg, oral, AT BEDTIME, First | | 18 8:07 | | | | | dose on Sat03/12/18 at 2200, | | PM PDT | | | | | Until Discontinued | | | | | | + +-------+ +------+---+---+ +-------+ +------+---+---+ | Given | 03/12/20 | 5 mg | | | | | 18 8:28 | | | | | | PM PDT | | | | +-------+ +------+---+---+ +---+---+ | | | +---+---+ + +-------+ +-------+---+---+ | ondansetron (ZOFRAN) tablet 24 | Given | 03/15/20 | 24 mg | | | | mg 24 mg, oral, EVERY 20 HOURS, | | 18 8:09 | | | | | 4 doses, First dose on Wed | | AM PDT | | | | | 03/12/18 at 2000, Last dose on Sat | | | | | | | 03/15/18 at 0800 | | | | | | + +-------+ +-------+---+---+ +-------+ +-------+---+---+ | Given | 03/14/20 | 24 mg | | | | | 18 12:30 | | | | | | PM PDT | | | | +-------+ +-------+---+---+ | Given | 03/13/20 | 24 mg | | | | | 18 4:08 | | | | | | PM PDT | | | | +-------+ +-------+---+---+ +---+---+ | | | +---+---+ + +-------+ +-------+---+---+ | oxyCODONE (immediate release) | Given | 03/14/20 | 10 mg | | | | (ROXICODONE) tablet 5-15 mg 5-15 | | 18 5:52 | | | | | mg, oral, EVERY 3 HOURS | | PM PDT | | | | | NEEDED, Starting 03/12/18 at | | | | | | | 1849, Until 03/15/18 at 2355, | | | | | | | moderate pain | | | | | | + +-------+ +-------+---+---+ +-------+ +-------+---+---+ | Given | 03/13/20 | 10 mg | | | | | 18 10:21 | | | | | | PM PDT | | | | +-------+ +-------+---+---+ +---+---+ | | | +---+---+ + +-------+ +------+---+---+ | polyethylene glycol (MIRALAX) | Given | 03/15/20 | 17 g | | | | packet 17 g 17 g (1 packet), | | 18 6:57 | | | | | oral, DAILY, First dose on Sat | | AM PDT | | | | | 03/12/18 at 2045, Until | | | | | | | Discontinued | | | | | | + +-------+ +------+---+---+ +-------+ +------+---+---+ | Given | 03/14/20 | 17 g | | | | | 18 8:39 | | | | | | AM PDT | | | | +-------+ +------+---+---+ | Given | 03/13/20 | 17 g | | | | | 18 8:26 | | | | | | AM PDT | | | | +-------+ +------+---+---+ + +---+ | | | + +---+ | potassium chloride SR (K-DUR) | | | tablet 40 mEq 40 mEq, oral, | | | NEEDED, Starting 03/12/18 at | | | 1851, Until 03/15/18 at 2355, | | | potassium level 3-3.4 mmol/L | | + +---+ | | | + +---+ | potassium phosphate IV 30 mmol | | | 30 mmol, intravenous, NEEDED, | | | Starting 03/12/18 at 1851, | | | Until 03/15/18 at 2355, | | | Potassium less than or equal to | | | 3.4 mmol/L AND Phosphate less | | | than or equal to 2 mg/dL. | | + +---+ | | | + +---+ | potassium phosphate IV 40 mmol | | | 40 mmol, intravenous, NEEDED, | | | Starting 03/12/18 at 1851, | | | Until 03/15/18 at 2355, | | | Potassium less than or equal to | | | 2.9 mmol/L AND Phosphate less | | | than or equal to 1.5 mg/dL. | | + +---+ | | | + +---+ + +-------+ +--------+---+---+ | pregabalin (LYRICA) capsule 225 | Given | 03/15/20 | 225 mg | | | | mg 225 mg, oral, TWICE DAILY, | | 18 5:03 | | | | | First dose on Sat03/12/18 at | | PM PDT | | | | | 2100, Until Discontinued | | | | | | + +-------+ +--------+---+---+ +-------+ +--------+---+---+ | Given | 03/15/20 | 225 mg | | | | | 18 8:08 | | | | | | AM PDT | | | | +-------+ +--------+---+---+ | Given | 03/14/20 | 225 mg | | | | | 18 5:33 | | | | | | PM PDT | | | | +-------+ +--------+---+---+ + +---+ | | | + +---+ | prochlorperazine (COMPAZINE) | | | injection 10 mg 10 mg, | | | intravenous, EVERY 4 HOURS | | | NEEDED, Starting Bettie 03/13/18 at | | | 0849, Until 03/15/18 at 2355, | | | n/v, if unable to take oral form | | | of medication, Give as first line | | | agent for acute or delayed | | | nausea/vomiting if unable to take | | | PO | | + +---+ | | | + +---+ + +-------+ +-------+---+---+ | prochlorperazine (COMPAZINE) | Given | 03/15/20 | 10 mg | | | | tablet 10 mg 10 mg, oral, EVERY | | 18 3:07 | | | | | 6 HOURS NEEDED, Starting Bettie | | PM PDT | | | | | 03/13/18 at 0849, Until Sat | | | | | | | 03/15/18 at 2355, nausea/vomiting, | | | | | | | second line | | | | | | + +-------+ +-------+---+---+ +---+---+ | | | +---+---+ + +-------+ +-------+---+---+ | prochlorperazine (COMPAZINE) | Given | 03/15/20 | 10 mg | | | | tablet 10 mg 10 mg, oral, EVERY | | 18 6:19 | | | | | 8 HOURS, First dose on Fri | | AM PDT | | | | | 03/14/18 at 1015, Until | | | | | | | Discontinued | | | | | | + +-------+ +-------+---+---+ +-------+ +-------+---+---+ | Given | 03/14/20 | 10 mg | | | | | 18 8:59 | | | | | | PM PDT | | | | +-------+ +-------+---+---+ | Given | 03/14/20 | 10 mg | | | | | 18 12:03 | | | | | | PM PDT | | | | +-------+ +-------+---+---+ +---+---+ | | | +---+---+ + +---------+ + +---+---+ | sodium chloride 0.9 % (NS) IV | New Bag | 03/12/20 | 1,000 mL | | | | infusion 1,000 mL, intravenous, | | 18 6:52 | | | | | ONCE, 1 dose, 03/12/18 at 1845 | | PM PDT | | | | + +---------+ + +---+---+ +---+---+ | | | +---+---+ + + + +-------+-------+---+ | sodium chloride 0.9 % (NS) IV | Rate/Dos | 03/15/20 | 125 | 125 | | | infusion 125 mL/hr, intravenous, | e Verify | 18 3:00 | mL/hr | mL/hr | | | CONTINUOUS, Starting 03/12/18 | | PM PDT | | | | | at 2000, Until 03/15/18 at | | | | | | | 2355 | | | | | | + + + +-------+-------+---+ + + +-------+-------+---+ | Rate/Dose Verify | 03/15/20 | 125 | 125 | | | | 18 12:00 | mL/hr | mL/hr | | | | PM PDT | | | | + + +-------+-------+---+ | New Bag | 03/15/20 | 125 | 125 | | | | 18 9:07 | mL/hr | mL/hr | | | | AM PDT | | | | + + +-------+-------+---+ + +---+ | | | + +---+ | sodium phosphate IV 30 mmol 30 | | | mmol, intravenous, NEEDED, | | | Starting 03/12/18 at 1851, | | | Until 03/15/18 at 2355, | | | Administer for sodium level less | | | than 148 mmol/L and phosphate | | | level 1.6-2 mg/dL. | | + +---+ | | | + +---+ | sodium phosphate IV 40 mmol 40 | | | mmol, intravenous, NEEDED, | | | Starting 03/12/18 at 1851, | | | Until 03/15/18 at 2355, | | | Administer for sodium level less | | | than 148 mmol/L and phosphate | | | level less than or equal to 1.5 | | | mg/dL. | | + +---+ | | | + +---+ documented in this encounter
--- OUTSIDE RECORDS SUMMARY | ~2019-01-30 | XMS | Encounter Summary ---
Demographics + + + | Address | [address] | | | [place] [address] | + + + | Home Phone | | + + + | Preferred Language | Unknown | + + + | Marital Status | Single | + + + | Muslim Affiliation | CAT | + + + [...] Providers + +------+ + | Care Manager Monitoring Name | Role | Phone | + +------+ + | Santo Gooden MD | PCP | | + +------+ + Reason for Visit + + + | Reason | Comments | + + + | Post-discharge | Neulasta and labs | | follow-up | | + + + Encounter Details +--------+ + + + + | Date | Type | Department | Care Team | Description | +--------+ + + + + | 01/29/ | Documentati | Hematology/Medical | Sandra Patel MD | Post-discharge | | 2018 | on | Oncology at Center | [address] | follow-up (Neulasta | | | | [facility] | [place], [place] | and labs) | | | | [address] | [address] | | | | | Mailcode: Center | [phone] | | | | | [facility] | | | | | | Healing, [address] | | | | | | [place], [place] | | | | | | [address] | | | | | | [phone] | | | +--------+ + + + [...] [address] | | | | | | [place], [place] | | | | | | [address] | | | | | | [phone] | | | | | | | | +--------+ + + + + | 03/25/ | Office | Orthopedics | Lynda Basurto, | | | 2018 | Visit | | [address] | | | | | | [address] | | | | | | [place], [place] | | | | | | [address] | | | | | | [phone] | | | | | | | | +--------+ + + + + | 03/25/ | Office | Hematology & | Sandra Patel MD | | | 2018 | Visit | Oncology | [address] | | | | | | [facility] [place] | | | | | | [address] | | | | | | [phone] | | | | | | | | +--------+ + + + + documented as of this encounter Visit Diagnoses + + | Diagnosis | + + | 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
--- OUTSIDE RECORDS SUMMARY | ~2019-01-30 | XMS | Encounter Summary ---
Demographics + + + | Address | [address] | | | [place] [address] | + + + | Home Phone | | + + + | Preferred Language | Unknown | + + + | Marital Status | Single | + + + | Religion Affiliation | CAT | + + + | Race | Unknown | + + + | Ethnic Group | Not or | + + + Author + + + | Author | [facility] | + + + | Organization | [facility] | + + + | Address | Unknown | + + + | Phone | Unavailable | + + + Support + + +---------+ + | Name | Relationship | Address | Phone | + + +---------+ + | Kika Cage | ECON | Unknown | | + + +---------+ + Care Team Providers + +------+ + | Care Hvac Sheet Metal Installer Name | Role | Phone | + [...] | | | 2018 | Event | [facility] | MD Sue [address] | | | | | Admitting Desk | [facility] | | | | | Located on the | [place], [place] | | | | | floor [address] [place] [address] | [address] | | | | | [facility] | [phone] | | | | | [place], [place] | | | | | | [address] | | | +--------+ + + + + Anesthesia Record + + + + + | Procedure Name | Responsible | Anesthesia Start | Anesthesia Stop Time | | | Anesthesiologist | Time | | + + + + + | LOWER EXTREMITY | Laura Deng MD | 02/06/18 1215 | 02/06/18 1604 [...] 1 | Quick Note | Dr. 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 | | +--------+ + + + | Urethr | 02/06/18; 1250; Humaira Rodriguez RN ; 1 | 02/06/18 1250 by | 02/07/18 1230 by | | al | (Melba Perez RN); Sana (Latex | Charlotte Rodriguez RN | Tona Aaron RN | | Cathet | free); 16 Fr.; 10 mL; 06/08/18; | | | | er | 1230; [...] Scott | | | | | | [place], [place] | | | | | | [address] | | | | | | [phone] | | | | | | | | +--------+ + + + + | 03/25/ | Office | Orthopedics | Lynda Basurto, | | | 2019 | Visit | | [address] | | | | | | [address] | | | | | | [facility] [place] | | | | | | [address] | | | | | | [phone] | | | | | | | | +--------+ + + + + | 03/25/ | Office | Hematology & | Sandra Patel MD | | | 2019 | Visit | Oncology | [address] | | | | | | [place], [place] | | | | | | [address] | | | | | | [phone] | | | | | | | | +--------+ + + + + documented as of this encounter Procedures + +--------+ + + + | Procedure Name | Priori | Date/Time | Associated Diagnosis | Comments | | | ty | | | | + +--------+ + + + | ANE PNB CATH | Routin | 02/06/2018 | | | | | e | 8:06 PM | | | | | | PDT | | | + +--------+ + + + +---+--------+ | | | | | Proced | | | ure | | | Note - | | | | | | Togiok | | | a, | | | Raymond | | | n M, | | | MD - | | | 06/07/ | | | 2018 | | | 8:06 | | | PM PDT | | | PNB | | | Cath | | | TYPETy | | | pe: | | | sciati | | | c | | | block | | | Indica | | | tion: | | | ultras | | | ound | | | guided | | | Side: | | | left | | | Block | | | indica | | | tion: | | | Have | | | receiv | | | ed and | | | | | | accept | | | ed | | | reques | | | t from | | | | | | attend | | | ing | | | surgeo | | | n to | | | offer | | | advanc | | | ed | | | acute | | | pain | | | manage | | | ment | | | servic | | | es to | | | the | | | patien | | | t | | | Locati | | | on: | | | PACU, | | | The | | | patien | | | t was | | | identi | | | fied, | | | the | | | site | | | marked | | | , full | | | PARQ | | | DonePR | | | OCEDUR | | | EPt. | | | Positi | | | on: | | | Supine | | | | | | Monito | | | rs | | | used: | | | EKG, | | | NIBP | | | and | | | SpO2 | | | Suppli | | | mental | | | O2 | | | used | | | draped | | | in | | | steril | | | e | | | fashio | | | nULTRA | | | SOUNDS | | | pread | | | charac | | | terist | | | ics: | | | full | | | spread | | | | | | around | | | | | | nerve/ | | | plexus | | | | | | Image: | | | Not | | | saved | | | or | | | printe | | | d | | | Guidan | | | ce: | | | Needle | | | tip | | | visual | | | izedNE | | | EDLENe | | | edle | | | type: | | | Tuohy | | | Gauge: | | | 17 G | | | | | | Length | | | : 9 | | | cm | | | Needle | | | | | | insert | | | ion | | | depth | | | 7 cm | | | Cathet | | | er at | | | skin | | | depth | | | 13 cm | | | No, | | | Aspira | | | tion | | | was | | | Negati | | | ve for | | | | | | bloodN | | | ERVE | | | STIMUL | | | ATORAS | | | SESSME | | | NTIst | | | attemp | | | t | | | Compli | | | cation | | | s: | | | None | | | Attend | | | ing | | | physic | | | ally | | | presen | | | t | | | | | | Attend | | | ing: | | | TOGIOK | | | A, | | | RAYMOND | | | N M | | | Superv | | | ised | | | by N | | | Lunden | | | Patien | | | t | | | assent | | | ed to | | | block, | | | mom | | | offici | | | ally | | | consen | | | abhilash to | | | | | | block, | | | Gallegos | | | Doung | | | asked | | | for | | | block | +---+--------+ + +--------+ +---+---+ | ANE PNB SS | Routin | 02/06/2018 | | | | | e | 8:04 PM | | | | | | PDT | | | + +--------+ +---+---+ +---+--------+ | | | | | Proced | | | ure | | | Note - | | | | | | Togiok | | | a, | | | Raymond | | | n M, | | | MD - | | | 06/07/ | | | 2018 | | | 8:04 | | | PM PDT | | | | | | Single | | | -Shot | | | TypeTy | | | pe | | | saphen | | | ous | | | block | | | Techni | | | que | | | used | | | ultras | | | ound | | | guided | | | Side | | | left | | | Block | | | indica | | | tion: | | | Have | | | receiv | | | ed and | | | | | | accept | | | ed | | | reques | | | t from | | | | | | attend | | | ing | | | surgeo | | | n to | | | offer | | | advanc | | | ed | | | acute | | | pain | | | manage | | | ment | | | servic | | | es to | | | the | | | patien | | | t PACU | | | The | | | patien | | | t was | | | identi | | | fied, | | | the | | | site | | | marked | | | , full | | | PARQ | | | DonePr | | | ocedur | | | ePt. | | | Positi | | | on | | | Supine | | | , | | | Monito | | | rs | | | used | | | NIBP, | | | SpO2 | | | and | | | EKG | | | Suppli | | | mental | | | O2 | | | used | | | Single | | | Shot | | | Prep: | | | Chlora | | | Prep | | | | | | draped | | | in | | | steril | | | e | | | fashio | | | n | | | Ultras | | | oundSp | | | read | | | Charac | | | terist | | | ics: | | | full | | | spread | | | | | | around | | | | | | nerve/ | | | plexus | | | Image | | | No | | | Guidan | | | ce: | | | Needle | | | tip | | | visual | | | izedNe | | | edleNe | | | edle | | | type: | | | Short- | | | bevel | | | Gauge: | | | 21 G | | | | | | Length | | | : 4 | | | in No, | | | | | | Aspira | | | tion | | | was | | | Negati | | | ve for | | | | | | bloodN | | | erve | | | Stimul | | | atorAs | | | sessme | | | ntIst | | | attemp | | | t | | | Result | | | : | | | Dense | | | block | | | noted | | | prior | | | to | | | induct | | | ion | | | Compli | | | cation | | | s: | | | None, | | | Block | | | not | | | abando | | | tae | | | Techni | | | sheng | | | diffic | | | ulty: | | | Diffic | | | ult | | | | | | Intend | | | ed | | | analge | | | hellen: | | | Satisf | | | actory | | | block | | | in | | | approp | | | riate | | | fashio | | | n | | | Attend | | | ing | | | physic | | | ally | | | presen | | | t | | | Attend | | | ing | | | Name: | | | TOGIOK | | | A, | | | RAYMOND | | | N M | | | Superv | | | ised | | | by N | | | Lunden | | | Patien | | | t | | | assent | | | ed to | | | block, | | | mom | | | offici | | | ally | | | consen | | | abhilash to | | | | | | block, | | | Gallegos | | | Doung | | | asked | | | for | | | block | +---+--------+ + +--------+ +---+ + | ANE EPIDURAL | Routin | 02/06/2018 | | Results for this | | | e | 7:15 PM | | procedure are in the | | | | PDT | | results section. | + +--------+ +---+ + | ANE ETT | Routin | 02/06/2018 | | | | | e | 12:40 PM | | | | | | PDT | | | + +--------+ +---+ + +---+--------+ | | | | | Proced | | | ure | | | Note - | | | | | | Togiok | | | a, | | | Raymond | | | n M, | | | MD - | | | 02/06/ | | | 2017 | | | 12:40 | | | PM PDT | | | | | | Proced | | | ure | | | Reason | | | for | | | Intuba | | | tion: | | | For | | | surgic | | | al | | | proced | | | ure, | | | Locati | | | on | | | Perfor | | | med: | | | [place] , | | | Patien | | | t was | | | preoxy | | | genate | | | dMask | | | Ventil | | | ationG | | | rade 1 | | | - | | | Ventil | | | ated | | | by | | | mask | | | Intuba | | | tionBl | | | trudi | | | type: | | | Macint | | | osh , | | | Blade | | | size: | | | 3, | | | Atraum | | | atic | | | laryng | | | oscopy | | | : | | | Atraum | | | atic | | | Laryng | | | oscopy | | | , | | | Intuba | | | tion | | | adjunc | | | ts: | | | N/A , | | | Laryng | | | oscopi | | | c | | | view: | | | Grade | | | I, | | | Fibero | | | ptics | | | used: | | | N/A , | | | Number | | | of | | | Attemp | | | ts: 1, | | | | | | Positi | | | ve for | | | | | | EtCO2: | | | Yes, | | | Breath | | | | | | sounds | | | : | | | Bilate | | | ral | | | and | | | equal | | | ETTEtt | | | | | | Adult: | | | | | | Single | | | -lumen | | | | | | cuffed | | | ETT | | | Size: | | | 7 | | | ETT | | | secure | | | d | | | with: | | | adhesi | | | ve | | | tape | | | Depth | | | at | | | Lip: | | | 21 Cm | | | | | | Airway | | | leak: | | | No | | | Narrat | | | iveAtt | | | ending | | | | | | physic | | | ally | | | presen | | | t | +---+--------+ documented in this encounter Results ANE EPIDURAL (02/06/2018 7:15 PM PDT) + + + | Narrative | Performed At | + + + | Cole Gao MD 02/06/2018 12:18 PM PROCEDURE NAME | | | Epidural or Caudal Information Epidural . Have received and | | | accepted request from attending surgeon to offer advanced acute pain | | | management services to the patient Location performed: | | | Pre-Op The patient was identified, the site marked,, full PARQ | | | done Adult or Pediatric: Adult Procedure Patient position: | | | Sitting, Epidural approach: Midline, Monitors: NIBP, SpO2 and EKG, | | | Supplemental Oxygen Given, Sterile prep (ChloraPrep) drape and | | | technique Needle Tuohy with a 17g Needle insertion depth | | | 5.5 cm Catheter depth 10 cm on the 1st attempt Parasthesia: No. | | | Negative for blood. Vertebral Interspace: L2-3 CSF: | | | Aspiration negative for CSF, Sensory Band:Tested: Temperature | | | sensation to ice, J LUIS: air Assessment Complications: None, | | | Technical Difficulty: Easy Sensory Assessment: Deferred Motor | | | Assessment: Deferred; Narrative Attending physically present | | | LAURA DENG JPerformed by Resident: COLE GAO | | | procedural pause verifying correct patient, medical record number, | | | date of , allergies, and surgical site/orientation was | | | performed immediately prior to beginning the procedure. Previous to | | | pause a formal PARQ discussion was held with patient who consents to | | | procedure and understands risks/benefits of nerve block. After | | | visual anatomical identification of landmarks, site was thoroughly | | | cleaned with Chloraprep. Skin anesthestized with 1% lidocaine. | | | Ultrasound visualization of nerve anatomy was good. Patient | | | awake, alert, conversant throughout without complaint. No | | | paresthesias or pain with injection noted. Local anesthetic was | | | injected after negative aspiration in divided doses with repeat | | | aspiration after every 5mL. See anesthetic record for medication | | | dose documentation. The procedure was well tolerated and without | | | observed complication. See patient's medical record for images. | | + + + documented in this encounter Visit Diagnoses Not on filedocumented in this encounter Administered Medications + +--------+ +------+------+------+ | Medication Order | MAR | Action | Dose | Rate | Site | | | Action | Date | | | | + +--------+ +------+------+------+ | bupivacaine (PF) | Given | 02/07/20 | 5 mL | | | | (MARCAINE,SENSORCAINE-MPF) 0.25 % | | 18 2:25 | | | | | (2.5 mg/mL) injection | | PM PDT | | | | | INTRAPROCEDURE PRN, Starting Bettie | | | | | | | 02/06/18 at 1425, Until Bettie 02/06/18 | | | | | | | at 1546 | | | | | | + +--------+ +------+------+------+ +---+---+ | | | +---+---+ + +-------+ +-----+---+---+ | ceFAZolin (ANCEF) injection 3 g | Given | 02/07/20 | 3 g | | | | 3 g, intravenous, PREPROCEDURE | | 18 12:30 | | | | | ONCE, 1 dose, Starting Bettie 02/06/18 | | PM PDT | | | | | at 1019, Until Bettie 02/06/18 at | | | | | | | 1230 | | | | | | + +-------+ +-----+---+---+ +---+---+ | | | +---+---+ + +-------+ +-------+---+---+ | ePHEDrine injection | Given | 02/07/20 | 10 mg | | | | intravenous, INTRAPROCEDURE PRN, | | 18 2:30 | | | | | Starting Bettie 02/06/18 at 1430, | | PM PDT | | | | | Until Bettie 02/06/18 at 1546 | | | | | | + +-------+ +-------+---+---+ +---+---+ | | | +---+---+ + +-------+ +-------+---+---+ | EPINEPHrine (ADRENALIN) | Given | 02/07/20 | 5 mcg | | | | injection INTRAPROCEDURE PRN, | | 18 2:31 | | | | | Starting Ebttie 02/06/18 at 1431, | | PM PDT | | | | | Until Bettie 02/06/18 at 1546 | | | | | | + +-------+ +-------+---+---+ +---+---+ | | | +---+---+ + +-------+ +--------+---+---+ | fentaNYL citrate (PF) | Given | 02/07/20 | 50 mcg | | | | (SUBLIMAZE) injection | | 18 3:24 | | | | | INTRAPROCEDURE PRN, Starting Bettie | | PM PDT | | | | | 02/06/18 at 1145, Until Bettie 02/06/18 | | | | | | | at 1546 | | | | | | + +-------+ +--------+---+---+ +-------+ +--------+---+---+ | Given | 02/07/20 | 50 mcg | | | | | 18 3:00 | | | | | | PM PDT | | | | +-------+ +--------+---+---+ | Given | 02/07/20 | 50 mcg | | | | | 18 2:54 | | | | | | PM PDT | | | | +-------+ +--------+---+---+ +---+---+ | | | +---+---+ + + + +---+---+---+ | lactated Ringers IV | given by | 02/07/20 | | | | | INTRAPROCEDURE CONTINUOUS PRN, | | 18 3:26 | | | | | Starting Bettie 02/06/18 at 1215, | anesthes | PM PDT | | | | | Until Bettie 02/06/18 at 1546 | iology | | | | | + + + +---+---+---+ + + +---+---+---+ | New Bag | 02/07/20 | | | | | | 18 2:40 | | | | | | PM PDT | | | | + + +---+---+---+ | given by anesthesiology | 02/07/20 | | | | | | 18 12:40 | | | | | | PM PDT | | | | + + +---+---+---+ +---+---+ | | | +---+---+ + +-------+ +--------+---+---+ | lidocaine (XYLOCAINE MPF) 2 % | Given | 02/07/20 | 100 mg | | | | (20 mg/mL) injection | | 18 12:22 | | | | | INTRAPROCEDURE PRN, Starting Bettie | | PM PDT | | | | | 02/06/18 at 1222, Until Bettie 02/06/18 | | | | | | | at 1546 | | | | | | + +-------+ +--------+---+---+ +---+---+ | | | +---+---+ + +-------+ +------+---+---+ | lidocaine-EPINEPHrine | Given | 02/07/20 | 5 mL | | | | (XYLOCAINE-MPF WITH EPINEPHRINE) | | 18 12:09 | | | | | 1.5 %-1:200,000 injection | | PM PDT | | | | | INTRAPROCEDURE PRN, Starting Bettie | | | | | | | 02/06/18 at 1209, Until Bettie 02/06/18 | | | | | | | at 1546 | | | | | | + +-------+ +------+---+---+ +---+---+ | | | +---+---+ + +-------+ +---------+---+---+ | PHENYLEPHrine 100 mcg/mL IV | Given | 02/07/20 | 100 mcg | | | | syringe INTRAPROCEDURE PRN, | | 18 2:29 | | | | | Starting Bettie 02/06/18 at 1427, | | PM PDT | | | | | Until Bettie 02/06/18 at 1546 | | | | | | + +-------+ +---------+---+---+ +-------+ +---------+---+---+ | Given | 02/07/20 | 200 mcg | | | | | 18 2:27 | | | | | | PM PDT | | | | +-------+ +---------+---+---+ +---+---+ | | | +---+---+ + +-------+ +-------+---+---+ | propofol INTRAPROCEDURE PRN, | Given | 02/07/20 | 70 mg | | | | Starting Bettie 02/06/18 at 1222, | | 18 12:37 | | | | | Until Bettie 02/06/18 at 1546 | | PM PDT | | | | + +-------+ +-------+---+---+ +-------+ +--------+---+---+ | Given | 02/07/20 | 200 mg | | | | | 18 12:22 | | | | | | PM PDT | | | | +-------+ +--------+---+---+ +---+---+ | | | +---+---+ + + + +---+---+---+ | sodium chloride 0.9% IV | given by | 02/07/20 | | | | | infusion INTRAPROCEDURE | | 18 3:26 | | | | | CONTINUOUS PRN, Starting Bettie | anesthes | PM PDT | | | | | 02/06/18 at 1443, Until Bettie 02/06/18 | iology | | | | | | at 1546 | | | | | | + + + +---+---+---+ +---------+ +---+---+---+ | New Bag | 02/07/20 | | | | | | 18 2:43 | | | | | | PM PDT | | | | +---------+ +---+---+---+ +---+---+ | | | +---+---+ + +-------+ +--------+---+---+ | SUCCINYLCHOLINE CHLORIDE 20 | Given | 02/07/20 | 140 mg | | | | MG/ML INJ (PROSED/RSI) | | 18 12:23 | | | | | INTRAPROCEDURE PRN, Starting Bettie | | PM PDT | | | | | 02/06/18 at 1223, Until Bettie 02/06/18 | | | | | | | at 1546 | | | | | | + +-------+ +--------+---+---+ +---+---+ | | | +---+---+ documented in this encounter"
--- OUTSIDE RECORDS SUMMARY | ~2019-01-30 | XMS | Encounter Summary ---
Demographics + + + | Address | [address] | | | [place] [address] | + + + | Home Phone | | + + + | Preferred Language | Unknown | + + + | Marital Status | Single | + + + | Alevism Affiliation | CAT | + + + [...] Team Providers + +------+ + | Care Grocery Stock Clerk Name | Role | Phone | + +------+ + | Santo Gooden MD | PCP | | + +------+ + Reason for Referral PROC - Inpatient Surgery (Routine) +--------+--------+ + + + + | Status | Reason | Specialty | Diagnoses / | Referred By | Referred To | | | | | Procedures | Contact | Contact | +--------+--------+ + + + + | Closed | | Orthopedics | Diagnoses | Doung, | Doung, | | | | | Infection | Lynda, | MD Lynda | | | | | of | [address] | [address] | | | | | amputation | [address] | [address] | | | | | stump, left | Sarahy Conner | [address] | | | | | lower | [place], [place] | [place] | | | | | extremity | [address] | [phone] | | | | | Unspecified | Phone: | Phone: | | | | | open wound, | [phone] | [phone] | | | | | left knee, | Fax: | Fax: | | | | | initial | [phone] | [phone] | | | | | encounter | | | | | | | Procedures | | | | | | | REQUEST TO | | | | | | | SURGERY | | | | | | | ENGINEERING PROGRAM MANAGER | | | | | | | LA CLEANSING | | | | | | | OF | | | | | | | TISSUE/MUSCL | | | | | | | E LA LADONNA | | | | | | | MUSC/FASCIA | | | | | | | ADD-ON LA | | | | | | | CLEANSING | | | | | | | TISSUE/MUSCL | | | | | | | E/BONE LA | | | | | | | LADONNA BONE | | | | | | | ADD-ON LA | | | | | | | RE-AMPUTATIO | | | | | | | N LOWER LEG | | | | | | | LA NEG | | | | | | | PRESS WOUND | | | | | | | TX, <= 50 CM | | | | | | | LA NEG | | | | | | | PRESS WOUND | | | | | | | TX, > 50 CM | | | | | | | LA NEG | | | | | | | PRESS WOUND | | | | | | | TX, =< 50 | | | | | | | SQCM LA NEG | | | | | | | PRESS WOUND | | | | | | | TX, > 50 | | | | | | | SQCM | | | +--------+--------+ + + + + Encounter Details +--------+ + + + + | Date | Type | Department | Care Team | Description | +--------+ + + + + | 03/24/ | Sales Service Technician | Orthopaedics at | Rosy BasurtoMacarioLori, | Amputation stump | | 2018 | | [facility] [address] | [address] | infection (HCC) | | | | Ave Mailcode: CH[address] | [address] | (Primary Dx) | | | | [facility] | [place], [place] | | | | | and [facility], | [address] | | | | | Floor [place], [place] | [phone] | | | | | [address] | | | | | | [phone] | | | +--------+ + + + [...] [place] | | | | | | [address] | | | | | | [phone] | | | | | | | | +--------+ + + + + | 03/25/ | Office | Orthopedics | Lynda Basurto, | | | 2018 | Visit | | [address] | | | | | | [address] | | | | | | [place], [place] | | | | | | [address] | | | | | | [phone] | | | | | | | | +--------+ + + + + | 03/25/ | Office | Hematology & | Sandra Patel MD | | | 2018 | Visit | Oncology | [address] | | | | | | [place], [place] | | | | | | [address] | | | | | | [phone] | | | | | | | | +--------+ + + + + documented as of this encounter Visit Diagnoses + + | Diagnosis | + + | 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
--- OUTSIDE RECORDS SUMMARY | ~2019-01-30 | XMS | Encounter Summary ---
Demographics + + + | Address | [address] | | | [place] [address] | + + + | Home Phone [...] Author + + + | Author | [facility] | + + + | Organization | [facility] | + + + | Address | Unknown | + + + | Phone | Unavailable | + + + Support + + +---------+ + | Name | Relationship | Address | Phone | + + +---------+ + | Kika Cage | ECON | Unknown | | + + +---------+ + Care Team Providers + +------+ + | Care Sheet Metal Duct Installer Apprentice Name | Role | Phone | + +------+ + | Santo Gooden MD | PCP | | + +------+ + Reason for Referral Diagnostic Testing (Urgent) + +--------+ + + + + | Status | Reason | Specialty | Diagnoses / | Referred By | Referred To | | | | | Procedures | Contact | Contact | + +--------+ + + + + | New Request | | Cardiology | Diagnoses | Jorge | Car Echo | | | | | Synovial | Sandra Schmitt MD | [facility] [address] | | | | | sarcoma | [address] | [address] | | | | | ([facility]) | Ave | Mailcode: | | | | | Procedures | [facility] [place] | [address] | | | | | TRANSTHORACI | [address] | for Health | | | | | C | Phone: | and Healing | | | | | ECHOCARDIOGR | [phone] | [facility] [place] | | | | | AM WITH | Fax: | [address] | | | | | STRAIN - | [phone] | Phone: | | | | | CARDIO | | [phone] | | | | | MECHANICS, | | | | | | | ADULT MA | | | | | | | TTE W/DPPLR, | | | | | | | COMP | | | + +--------+ + + + + Reason for Visit + + + | Reason | Comments | + + + | Scheduling | ECHO | + + + Encounter Details +--------+ + + + + | Date | Type | Department | Care Team | Description | +--------+ + + + + | 01/31/ | Telephone | Hematology/Medical | Sandra Patel MD | Scheduling (ECHO) | | 2017 | | Oncology at [place] | [address] | | | | | for Health & Healing | [place], [place] | | | | | [address] | [address] | | | | | Mailcode: [place] | [phone] | | | | | for [facility] and | | | | | | [address] | | | | | | [place], [place] | | | | | | [address] | | | | | | [phone] | | | +--------+ + + + [...] | 2018 | | | [address] | | | | | | [place], [place] | | | | | | [address] | | | | | | [phone] | | | | | | | | +--------+ + + + + | 03/25/ | Office | Orthopedics | Lynda Basurto, | | | 2019 | Visit | | [address] | | | | | | [address] | | | | | | [facility] [place] | | | | | | [address] | | | | | | [phone] | | | | | | | | +--------+ + + + + | 03/25/ | Office | Hematology & | Sandra Patel MD | | | 2019 | Visit | Oncology | [address] | | | | | | [place], [place] | | | | | | [address] | | | | | | [phone] | | | | | | | | +--------+ + + + + + +------+--------+ + + | Name | Type | Priori | Associated Diagnoses | Order Schedule | | | | ty | | | + +------+--------+ + + | TRANSTHORACIC | ECG | Urgent | Synovial sarcoma | Ordered: 02/03/2018 | | ECHOCARDIOGRAM WITH | | | ([facility]) | | | STRAIN - CARDIO | | | | | | MECHANICS, ADULT | | | | | + +------+--------+ + + documented as of this encounter Visit Diagnoses + + | Diagnosis | + + | 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
--- OUTSIDE RECORDS SUMMARY | ~2019-01-30 | XMS | Encounter Summary ---
Demographics + + + | Address | [address] | | | [place] [address] | + + + | Home Phone [...] Author + + + | Author | [facility] | + + + | Organization | [facility] | + + + | Address | Unknown | + + + | Phone | Unavailable | + + + Support + + +---------+ + | Name | Relationship | Address | Phone | + + +---------+ + | Kika Cage | ECON | Unknown | | + + +---------+ + Care Team Providers + +------+ + | Care Economics Department Chair Name | Role | Phone | + [...] | | 2018 | | Oncology at [place] | [address] | | | | | for Health & Healing | [place], [place] | | | | | [address] | [address] | | | | | Mailcode: [place] | [phone] | | | | | for Health and | | | | | | [facility] 2 | | | | | | [place], [place] | | | | | | [address] | | | | | | [phone] | | | +--------+ + + + [...] | 2019 | | | [address] | | | | | | [place], [place] | | | | | | [address] | | | | | | [phone] | | | | | | | | +--------+ + + + + | 03/25/ | Office | Orthopedics | Doung, GallegosAlexander, | | | 2018 | Visit | | [address] | | | | | | [address] | | | | | | [place], [place] | | | | | | [address] | | | | | | [phone] | | | | | | | | +--------+ + + + + | 03/25/ | Office | Hematology & | Sandra Patel MD | | | 2018 | Visit | Oncology | [address] | | | | | | [place], [place] | | | | | | [address] | | | | | | [phone] | | | | | | | | +--------+ + + + + documented as of this encounter Visit Diagnoses Not on filedocumented in this encounter"
--- OUTSIDE RECORDS SUMMARY | ~2019-01-30 | XMS | Encounter Summary ---
Demographics + + + | Address | [address] | | | [place] [address] | + + + | Home Phone [...] Author + + + | Author | [facility] | + + + | Organization | [facility] | + + + | Address | Unknown | + + + | Phone | Unavailable | + + + Support + + +---------+ + | Name | Relationship | Address | Phone | + + +---------+ + | Kika Cage | ECON | Unknown | | + + +---------+ + Care Team Providers + +------+ + | Care Production Line Mechanic Name | Role | Phone | [...] | +--------+ + + + + | 03/04/ | Telephone | Hematology/Medical | Work, Social | Social Work Notes | | 2018 | | Oncology at [place] | | | | | | for Health & Healing | | | | | | [address] | | | | | | Mailcode: [place] | | | | | | for Health and | | | | | | [facility], [facility] 2 | | | | | | [place], [place] | | | | | | [address] | | | | | | [phone] | | | +--------+ + + + [...] Scott | | | | | | [place], [place] | | | | | | [address] | | | | | | [phone] | | | | | | | | +--------+ + + + + | 03/25/ | Office | Orthopedics | Paul Basurtoen, | | | 2018 | Visit | | [address] | | | | | | [address] | | | | | | [place], [place] | | | | | | [address] | | | | | | [phone] | | | | | | | | +--------+ + + + + | 03/25/ | Office | Hematology & | Sandra Patel MD | | | 2018 | Visit | Oncology | [address] | | | | | | [place], [place] | | | | | | [address] | | | | | | [phone] | | | | | | | | +--------+ + + + + documented as of this encounter Visit Diagnoses Not on filedocumented in this encounter"
--- OUTSIDE RECORDS SUMMARY | ~2019-01-30 | XMS | Encounter Summary ---
Demographics + + + | Address | [address] | | | [place] [address] | + + + | Home Phone | | + + + | Preferred Language | Unknown | + + + | Marital Status | Single | + + + | Catholic Affiliation | CAT | + + [...] Team Providers + +------+ + | Care Terminal Make Up Operator Name | Role | Phone | + +------+ + | Santo Gooden MD | PCP | | + +------+ + Encounter Details +--------+ + + + + | Date | Type | Department | Care Team | Description | +--------+ + + + + | 02/21/ | Pharmacy | Outpatient Retail | | | | 2017 | Visit | [facility] | | | | | | [address] | | | | | | [facility] | | | | | | [place], [place] | | | | | | [address] | | | +--------+ + + + [...] Scott | | | | | | [place] | | | | | | [address] | | | | | | [phone] | | | | | | | | +--------+ + + + + | 03/25/ | Office | Orthopedics | Lynda Basurto, | | | 2018 | Visit | | [address] | | | | | | [address] | | | | | | [place] | | | | | | [address] | | | | | | [phone] | | | | | | | | +--------+ + + + + | 03/25/ | Office | Hematology & | Sandra Patel MD | | | 2018 | Visit | Oncology | [address] | | | | | | [place] | | | | | | [address] | | | | | | [phone] | | | | | | | | +--------+ + + + + documented as of this encounter Visit Diagnoses Not on filedocumented in this encounter"
--- OUTSIDE RECORDS SUMMARY | ~2019-01-30 | XMS | Encounter Summary ---
Demographics + + + | Address | [address] | | | [place] [address] | + + + | Home Phone | | + + + | Preferred Language | Unknown | + + + | Marital Status | Single | + + + | Samaritan Affiliation | CAT | + + + [...] + +------+ + | Care Director Of Gift Planning Name | Role | Phone | + [...] | Floor [address] | [facility] | | | | | [facility] | [place], [place] | | | | | Mailcode: L457 | [address] | | | | | Physicians Katie | [phone] | | | | | [place], [place] | | | | | | [address] | | | | | | [phone] | | | +--------+ + + + [...] | | | 2018 | | | [address] | | | | | | [place], [place] | | | | | | [address] | | | | | | [phone] | | | | | | | | +--------+ + + + + | 03/25/ | Office | Orthopedics | Lynda Basurto, | | | 2019 | Visit | | [address] | | | | | | [address] | | | | | | [place], [place] | | | | | | [address] | | | | | | [phone] | | | | | | | | +--------+ + + + + | 03/25/ | Office | Hematology & | Sandra Patel MD | | | 2019 | Visit | Oncology | [address] | | | | | | [place] | | | | | | [address] | | | | | | [phone] | | | | | | | | +--------+ + + + + documented as of this encounter Visit Diagnoses Not on filedocumented in this encounter"
--- OUTSIDE RECORDS SUMMARY | ~2019-01-30 | XMS | Encounter Summary ---
Demographics + + + | Address | [address] | | | [place] [address] | + + + | Home Phone [...] Team Providers + +------+ + | Care Computer Aided Design Technician Name | Role | Phone | [...] Report | | 2018 | Encounter | [facility] [address] | [address] | | | | | [address] Mailcode: [address] | [address] | | | | | [facility] | [place], [place] | | | | | and | [address] | | | | | Floor [place], [place] | [phone] | | | | | [address] | | | | | | [phone] | | | +--------+ + + + [...] Scott | | | | | | [place], [place] | | | | | | [address] | | | | | | [phone] | | | | | | | | +--------+ + + + + | 03/25/ | Office | Orthopedics | Lynda Basurto, | | | 2018 | Visit | | [address] | | | | | | [address] | | | | | | [place], [place] | | | | | | [address] | | | | | | [phone] | | | | | | | | +--------+ + + + + | 03/25/ | Office | Hematology & | Sandra Patel MD | | | 2019 | Visit | Oncology | [address] | | | | | | [place] | | | | | | [address] | | | | | | [phone] | | | | | | | | +--------+ + + + + documented as of this encounter Visit Diagnoses Not on filedocumented in this encounter"
--- OUTSIDE RECORDS SUMMARY | ~2019-01-30 | XMS | Encounter Summary ---
Demographics + + + | Address | [address] | | | [place] [address] | + + + | Home Phone [...] Author + + + | Author | [facility] | + + + | Organization | [facility] | + + + | Address | Unknown | + + + | Phone | Unavailable | + + + Support + + +---------+ + | Name | Relationship | Address | Phone | + + +---------+ + | Kika Cage | ECON | Unknown | | + + +---------+ + Care Team Providers + +------+ + | Care Creative Project Manager Name | Role | Phone [...] | 2017 | | Oncology at [place] | | | | | | for Health & Healing | | | | | | [address] | | | | | | Mailcode: [place] | | | | | | for Health and | | | | | | [facility], [facility] 2 | | | | | | [place], [place] | | | | | | [address] | | | | | | [phone] | | | +--------+ + + + [...] Scott | | | | | | [place], [place] | | | | | | [address] | | | | | | [phone] | | | | | | | | +--------+ + + + + | 03/25/ | Office | Orthopedics | Paul Basurtoen, | | | 2018 | Visit | | [address] | | | | | | [address] | | | | | | [place], [place] | | | | | | [address] | | | | | | [phone] | | | | | | | | +--------+ + + + + | 03/25/ | Office | Hematology & | Sandra Patel MD | | | 2018 | Visit | Oncology | [address] | | | | | | [place], [place] | | | | | | [address] | | | | | | [phone] | | | | | | | | +--------+ + + + + documented as of this encounter Visit Diagnoses Not on filedocumented in this encounter"
--- OUTSIDE RECORDS SUMMARY | ~2019-01-30 | XMS | Clinical Summary ---
Demographics + + + | Address | [address] | | | [place] [address] | + + + | Home Phone | | + + + | Preferred Language | Unknown | + + + | Marital Status | Unknown | + + + | Nondenominational Affiliation | Unknown | + + + | Race | Unknown | + + + | Ethnic Group | Unknown | + + + Author + + + | Author | [facility] | + + + | Organization | [facility] | + + + | Address | Unknown | + + + | Phone | Unavailable | + + + Support + + + + + | Name | Relationship | Address | Phone | + + + + + | Kika Fox | ECON | [address] [facility] | | | | | [place] [address] | | + + + + + Care Team Providers + +------+ + | Care Inventory Analyst Name | Role | Phone | [...] Vaccine: Influenza | | | | | (Season Ended) | 9 | | | + + + + [...] +------+-------+ + | PREMERA | PREMER | [id number] | | | [address] [address] | | | A BLUE | | | | [place] | | | [place] | | | | [address] | | | FED | | | | | | | PPO | | | | | + +--------+ +------+-------+ + | [employer] | YELLOW | [id number] | | | | | PLANS | [...] | Self | [birth year] Home: | [address] | | | enrique/Lopez | | 1984 | [phone] | [place] [address] | | | emerita | | | [phone] | | + +--------+ +--------+ + +
--- OUTSIDE RECORDS SUMMARY | ~2019-01-30 | XMS | Encounter Summary ---
Demographics + + + | Address | [address] | | | [place] [address] | + + + | Home Phone [...] Team Providers + +------+ + | Care Systems Analyst Name | Role | Phone | [...] + + + + | 02/13/ | Documentati | Hematology/Medical | Sandra Patel MD | Post-discharge | | 2018 | on | Oncology at Center | [address] | follow-up ([facility] | | | | for Health & Healing | [place], [place] | and labs) | | | | [address] | [address] | | | | | Mailcode: Center | [phone] | | | | | for Health and | | | | | | Healing, Building [address] | | | | | | [place], [place] | | | | | | [address] | | | | | | [phone] | | | +--------+ + + + [...] Scott | | | | | | [place], [place] | | | | | | [address] | | | | | | [phone] | | | | | | | | +--------+ + + + + | 03/25/ | Office | Orthopedics | Lynda Basurto, | | | 2018 | Visit | | [address] | | | | | | [address] | | | | | | [place], [place] | | | | | | [address] | | | | | | [phone] | | | | | | | | +--------+ + + + + | 03/25/ | Office | Hematology & | Sandra Patel MD | | | 2018 | Visit | Oncology | [address] | | | | | | [place], [place] | | | | | | [address] | | | | | | [phone] | | | | | | | | +--------+ + + + + documented as of this encounter Visit Diagnoses + + | Diagnosis | + + | 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
--- OUTSIDE RECORDS SUMMARY | ~2019-01-30 | XMS | Encounter Summary ---
Demographics + + + | Address | [address] | | | [place] [address] | + + + | Home Phone | | + + + | Preferred Language | Unknown | + + + | Marital Status | Single | + + + | Tenriism Affiliation | CAT | + + + | Race | Unknown | + + + | Ethnic Group | Not or | + + + Author + + + | Author | [facility] | + + + | Organization | [facility] | + + + | Address | Unknown | + + + | Phone | Unavailable | + + + Support + + +---------+ + | Name | Relationship | Address | Phone | + + +---------+ + | Kika Cage | ECON | Unknown | | + + +---------+ + Care Team Providers + +------+ + | Care Airplane Pilot Name | Role | Phone | + [...] | | 2017 | | Oncology at [place] | | | | | | for Health & Healing | | | | | | [address] | | | | | | Mailcode: [place] | | | | | | for Health and | | | | | | [facility] 2 | | | | | | [place], [place] | | | | | | [address] | | | | | | [phone] | | | +--------+ + + + [...] Scott | | | | | | [facility] [place] | | | | | | [address] | | | | | | [phone] | | | | | | | | +--------+ + + + + | 03/25/ | Office | Orthopedics | Lynda Basurto, | | | 2018 | Visit | | [address] | | | | | | [address] | | | | | | [place], [place] | | | | | | [address] | | | | | | [phone] | | | | | | | | +--------+ + + + + | 03/25/ | Office | Hematology & | Sandra Patel MD | | | 2019 | Visit | Oncology | [address] | | | | | | [facility] [place] | | | | | | [address] | | | | | | [phone] | | | | | | | | +--------+ + + + + documented as of this encounter Visit Diagnoses Not on filedocumented in this encounter"
--- OUTSIDE RECORDS SUMMARY | ~2019-01-30 | XMS | Encounter Summary ---
Demographics + + + | Address | [address] | | | [place] [address] | + + + | Home Phone [...] Team Providers + +------+ + | Care Trains Service Conductor Name | Role | Phone | + [...] [address] | | | | | | [facility] | | | | | | [place], [place] | | | | | | [address] | | | +--------+ + + + [...] Scott | | | | | | [place] | | | | | | [address] | | | | | | [phone] | | | | | | | | +--------+ + + + + | 03/25/ | Office | Orthopedics | Lynda Basurto, | | | 2018 | Visit | | [address] | | | | | | [address] | | | | | | [place] | | | | | | [address] | | | | | | [phone] | | | | | | | | +--------+ + + + + | 03/25/ | Office | Hematology & | Sandra Patel MD | | | 2018 | Visit | Oncology | [address] | | | | | | [place] | | | | | | [address] | | | | | | [phone] | | | | | | | | +--------+ + + + + documented as of this encounter Visit Diagnoses Not on filedocumented in this encounter"
--- OUTSIDE RECORDS SUMMARY | ~2019-01-30 | XMS | Clinical Summary ---
Demographics + + + | Address | [address] | | | [place] [address] | + + + | Home Phone | | + + + | Preferred Language | Unknown | + + + | Marital Status | Single | + + + | Worship Affiliation | Unknown | + + + | Race | Unknown | + + + | Ethnic Group | Unknown | + + + Author + + + | Author | [facility] | | | [facility] | + + + | Organization | [facility] | | | and [facility] | + + + | Address | Unknown | + + + | Phone | Unavailable | + + + Support + + +---------+ + | Name | Relationship | Address | Phone | + + +---------+ + | Kika Cage | ECON | Unknown | | + + +---------+ + Care Team Providers + +------+ + | Care Cut Out Operator Name | Role | Phone | + +------+ + | Santo Gooden DO | PP | | + +------+ + Allergies + + + + + + | Active Allergy | Reactions | Severity | Noted | Comments | | | | | Date | | + + + + + + | Meperidine | Other (See Comments) | | 10/18/19 | Reaction | | | | | 17 | unspecified in | | | | | | outside medical | | | | | | records. | + + + + + + | Morphine | Other (See Comments) | | 10/18/19 | Reaction | | | | | 17 | unspecified in | | | | | | outside medical | | | | | | records | + + + + + + Medications + + + +---------+------+------+-------+ | Medication | Sig | Dispensed | Refills | Star | End | Statu | | | | | | t | Date | s | | | | | | Date | | | + + + +---------+------+------+-------+ | naproxen | Take 500 mg by mouth | | 0 | | | Activ | | (NAPROSYN) 500 mg | 2 times daily (with | | | | | e | | tablet | breakfast & | | | | | | | | dinner). | | | | | | + + + +---------+------+------+-------+ | atenolol | Take 50 mg by mouth | | 0 | | | Activ | | (TENORMIN) 50 mg | Daily. | | | | | e | | tablet | | | | | | | + + + +---------+------+------+-------+ | | Take 25 mg by mouth | | 0 | | | Activ | | hydroCHLOROthiazide | Daily. | | | | | e | | 25 mg tablet | | | | | | | + + + +---------+------+------+-------+ | sertraline | Take 200 mg by mouth | | 0 | | | Activ | | (ZOLOFT) 100 mg | Daily. | | | | | e | | tablet | | | | | | | + + + +---------+------+------+-------+ Active Problems + + + | Problem | Noted Date | + + + | Bilateral carpal tunnel syndrome | 10/23/2016 | + + + Social History + +-------+ +--------+------+ | Tobacco Use | Types | Packs/Day | Years | Date | | | | | Used | | + +-------+ +--------+------+ | Never Smoker | | | | | + +-------+ +--------+------+ + +---+---+---+ | Smokeless Tobacco: | | | | | Never Used | | | | + +---+---+---+ + + + | Sex Assigned at [...] + + + | Blood Pressure | - | - | + + + + | Pulse | - | - | + + + + | Temperature | - | - | + + + + | Respiratory Rate | - | - | + + + + | Oxygen Saturation | - | - | + + + + | Inhaled Oxygen | - | - | | Concentration | | | + + + + | Weight | 163.7 kg (361 lb) | 10/23/2016 1402 PST | + + + + | Height | 170.2 cm (5' 7") | 10/23/20161401 PST | + + + + | Body Mass Index | 56.54 | 10/23/20161401 PST | + + + + Plan of [...] filefrom Last 3 Months Insurance + +--------+ +--------+-------+---------+--------+ | Payer | Benefi | Subscriber | Effect | Phone | Address | Type | | | t Plan | ID | russ | | | | | | / | | Dates | | | | | | Group | | | | | | + +--------+ +--------+-------+---------+--------+ | BCBS | BCBS | [id number] | 09/02/19 | | | PPO | | | [place] | | 16-Pre | | | | | | L FEP | | sent | | | | + +--------+ +--------+-------+---------+--------+ | HEALTH | IHS | [id number] | | | | Indemn | | SERVICE | YELLOW | | 017-Pr | | | ity | | | HAWK | | esent | | | | + +--------+ +--------+-------+---------+--------+ + +--------+ +--------+ + + | Guarantor Name | Accoun | Relation to | Date | Phone | Billing Address | | | t Type | Patient | of | | | | | | | | | | + +--------+ +--------+ + + | Tati Cage | Person | Self | [birth year] | [address] | | | al/Fam | | 1985 | [phone] | [place] [address] | | | emerita | | | 4 (Home) | | + +--------+ +--------+ + + Advance Directives Patient has advance care planning documents on file. For more information, please contact:[facility] [place] [address]
--- OUTSIDE RECORDS SUMMARY | ~2019-01-30 | XMS | Encounter Summary ---
Demographics + + + | Address | [address] | | | [place] [address] | + + + | Home Phone [...] Team Providers + +------+ + | Care Engineering Aide Name | Role | Phone | + [...] Rd | | | | | | [place], [place] | | | | | | [address] | | | | | | [phone] | | | +--------+ + + + [...] Scott | | | | | | [place], [place] | | | | | | [address] | | | | | | [phone] | | | | | | | | +--------+ + + + + | 03/25/ | Office | Orthopedics | Lynda Basurto, | | | 2018 | Visit | | [address] | | | | | | [address] | | | | | | [place], [place] | | | | | | [address] | | | | | | [phone] | | | | | | | | +--------+ + + + + | 03/25/ | Office | Hematology & | Sandra Patel MD | | | 2018 | Visit | Oncology | [address] | | | | | | [place], [place] | | | | | | [address] | | | | | | [phone] | | | | | | | | +--------+ + + + + documented as of this encounter Visit Diagnoses Not on filedocumented in this encounter"
--- OUTSIDE RECORDS SUMMARY | ~2019-01-30 | XMS | Encounter Summary ---
Demographics + + + | Address | [address] | | | [place] [address] | + + + | Home Phone | | + + + | Preferred Language | Unknown | + + + | Marital Status | Single | + + + | Worship Affiliation | CAT | + + + [...] Team Providers + +------+ + | Care Helmet Coverer Name | Role | Phone | + +------+ + | Santo Gooden MD | PCP | | + +------+ + Encounter Details +--------+ + + + + | Date | Type | Department | Care Team | Description | +--------+ + + + + | 04/21/ | Documentati | Infectious | Angely Stephen, | | | 2018 | on | Diseases at [facility] | [address] | | | | | Floor [address] | [facility] | | | | | [facility] | [place], [place] | | | | | Mailcode: L457 | [address] | | | | | Physicians Katie | [phone] | | | | | [place], [place] | | | | | | [address] | | | | | | [phone] | | | +--------+ + + + [...] | | | 2018 | | | [address] | | | | | | [place], [place] | | | | | | [address] | | | | | | [phone] | | | | | | | | +--------+ + + + + | 03/25/ | Office | Orthopedics | Lynda Basurto, | | | 2019 | Visit | | [address] | | | | | | [address] | | | | | | [place], [place] | | | | | | [address] | | | | | | [phone] | | | | | | | | +--------+ + + + + | 03/25/ | Office | Hematology & | Sandra Patel MD | | | 2019 | Visit | Oncology | [address] | | | | | | [place] | | | | | | [address] | | | | | | [phone] | | | | | | | | +--------+ + + + + documented as of this encounter Visit Diagnoses Not on filedocumented in this encounter"
--- OUTSIDE RECORDS SUMMARY | ~2019-01-30 | XMS | Encounter Summary ---
Demographics + + + | Address | [address] | | | [place] [address] | + + + | Home Phone [...] Team Providers + +------+ + | Care Timber Inspector Name | Role | Phone | + +------+ + | Santo Gooden MD | PCP | | + +------+ + Encounter Details +--------+ + + + + | Date | Type | Department | Care Team | Description | +--------+ + + + + | 05/09/ | Pharmacy | Outpatient Retail | | | | 2018 | Visit | [facility] | | | | | | [address] | | | | | | [facility] | | | | | | [place], [place] | | | | | | [address] | | | +--------+ + + + [...] Scott | | | | | | [place] | | | | | | [address] | | | | | | [phone] | | | | | | | | +--------+ + + + + | 03/25/ | Office | Orthopedics | Lynda Basurto, | | | 2018 | Visit | | [address] | | | | | | [address] | | | | | | [place] | | | | | | [address] | | | | | | [phone] | | | | | | | | +--------+ + + + + | 03/25/ | Office | Hematology & | Sandra Patel MD | | | 2018 | Visit | Oncology | [address] | | | | | | [place] | | | | | | [address] | | | | | | [phone] | | | | | | | | +--------+ + + + + documented as of this encounter Visit Diagnoses Not on filedocumented in this encounter"
--- OUTSIDE RECORDS SUMMARY | ~2019-01-30 | XMS | Encounter Summary ---
Demographics + + + | Address | [address] | | | [place] [address] | + + + | Home Phone [...] + + + | Author | [facility] | + + + | Organization | [facility] | + + + | Address | Unknown | + + + | Phone | Unavailable | + + + Support + + +---------+ + | Name | Relationship | Address | Phone | + + +---------+ + | Kika Cage | ECON | Unknown | | + + +---------+ + Care Team Providers + +------+ + | Care Forest Examiner Name | Role | Phone | + +------+ + | Santo Gooden MD | PCP | | + +------+ + Encounter Details +--------+ + + + + | Date | Type | Department | Care Team | Description | +--------+ + + + + | 01/20/ | Lab | [facility] [address] | Lynda Basurto, | | | 2017 | Requisition | [address] | [address] | | | | | [address] [place], [place] | [address] | | | | | [address] | [place], [place] | | | | | | [address] | | | | | | [phone] | | | | | | | [...] Ave | | | | | | [place], [place] | | | | | | [address] | | | | | | [phone] | | | | | | | | +--------+ + + + + | 03/25/ | Office | Orthopedics | Lynda Basurto, | | | 2018 | Visit | | [address] | | | | | | [address] | | | | | | [place], [place] | | | | | | [address] | | | | | | [phone] | | | | | | | | +--------+ + + + + | 03/25/ | Office | Hematology & | Sandra Patel MD | | | 2018 | Visit | Oncology | [address] | | | | | | [place], [place] | | | | | | [address] | | | | | | [phone] | | | | | | | | +--------+ + + + + documented as of this encounter Procedures + +--------+ + + + | Procedure Name | Priori | Date/Time | Associated Diagnosis | Comments | | | ty | | | | + +--------+ + + + | HSR PROCESS ONLY | Routin | 02/10/2018 | Encounter for | | | | e | 10:45 AM | other specified | | | | | PDT | special examinations | | | | | | (CODE) | | + +--------+ + + + documented in this encounter Results HSR PROCESS ONLY (02/10/2018 10:45 AM PDT) + + | Specimen | + + | Slide-Block - | | Slide-Block | + + + + + + + | Performing | Address | City/State/Zipcode | Phone Number | | Organization | | | | + + + + + | [facility] | [address] | [place] [address] | | | DIAGNOSTIC | [address] | | | | LABORATORIES | | | | + + + + + documented in this encounter Visit Diagnoses + + | Diagnosis | + + | Encounter for other specified special examinations (CODE) | + + documented in this encounter"
--- OUTSIDE RECORDS SUMMARY | ~2019-01-30 | XMS | Encounter Summary ---
Demographics + + + | Address | [address] | | | [place] [address] | + + + | Home Phone [...] Author + + + | Author | [facility] | + + + | Organization | [facility] | + + + | Address | Unknown | + + + | Phone | Unavailable | + + + Support + + +---------+ + | Name | Relationship | Address | Phone | + + +---------+ + | Kika Cage | ECON | Unknown | | + + +---------+ + Care Team Providers + +------+ + | Care Demographer Name | Role | Phone | + [...] Other (Letter) | | 2019 | | [facility] [address] | [address] [facility] | | | | | [place] Mailcode: CH12A | [facility] | | | | | [facility] | [place], [place] | | | | | and [facility], | [address] | | | | | Floor [place], [place] | [phone] | | | | | [address] | | | | | | [phone] | | | +--------+ + + + [...] Scott | | | | | | [place], [place] | | | | | | [address] | | | | | | [phone] | | | | | | | | +--------+ + + + + | 03/25/ | Office | Orthopedics | Rosy BasurtoRegiotto, | | | 2018 | Visit | | [address] | | | | | | [address] | | | | | | [place], [place] | | | | | | [address] | | | | | | [phone] | | | | | | | | +--------+ + + + + | 03/25/ | Office | Hematology & | Sandra Patel MD | | | 2018 | Visit | Oncology | [address] | | | | | | [place], [place] | | | | | | [address] | | | | | | [phone] | | | | | | | | +--------+ + + + + documented as of this encounter Visit Diagnoses Not on filedocumented in this encounter"
--- OUTSIDE RECORDS SUMMARY | ~2019-01-30 | XMS | Encounter Summary ---
Demographics + + + | Address | [address] | | | [place] [address] | + + + | Home Phone [...] Providers + +------+ + | Care Computer Support Specialist Instructor Name | Role | Phone | [...] 04/01/ | Documentati | Infectious | Wendy Fraser, | RN Care Management; | | 2018 | on | Diseases at [facility] | RN [address] | Infectious disease | | | | Floor [address] | [facility] | | | | | [facility] | [place], [place] | | | | | Mailcode: L457 | [address] | | | | | Physicians Katie | [phone] | | | | | [place], [place] | | | | | | [address] | | | | | | [phone] | | | +--------+ + + + [...] | | | 2019 | | | [address] | | | | | | [place], [place] | | | | | | [address] | | | | | | [phone] | | | | | | | | +--------+ + + + + | 03/25/ | Office | Orthopedics | Lynda Basurto, | | | 2018 | Visit | | [address] | | | | | | [address] | | | | | | [place], [place] | | | | | | [address] | | | | | | [phone] | | | | | | | | +--------+ + + + + | 03/25/ | Office | Hematology & | Sandra Patel MD | | | 2018 | Visit | Oncology | [address] | | | | | | [place], [place] | | | | | | [address] | | | | | | [phone] | | | | | | | | +--------+ + + + + documented as of this encounter Visit Diagnoses Not on filedocumented in this encounter"
--- OUTSIDE RECORDS SUMMARY | ~2019-01-30 | XMS | Encounter Summary ---
Demographics + + + | Address | [address] | | | [place] [address] | + + + | Home Phone [...] Team Providers + +------+ + | Care Synthetic Plasterer Name | Role | Phone | + [...] | 2018 | Visit | [facility]cology at [place] | AGACNP,TITRATOR [address] | (HCC) (Primary Dx) | | | | for Health & Healing | [address] | | | | | [address] | [place], [place] | | | | | Mailcode: [place] | [address] | | | | | for Health and | [phone] | | | | | [place] [address] | | | | | | [place], [place] | | | | | | [address] | | | | | | [phone] | | | +--------+---------+ + + + [...] Pressure | 137/89 | 03/12/2018 2:25 PM | | | | | PDT | | + + + + + | Pulse | 107 | 03/12/2018 2:25 PM | | | | | PDT | | + + + + + | Temperature | 36.7 C (98.1 F) | 03/12/2018 2:25 PM | | | | | PDT | | + + + + + | Respiratory Rate | 16 | 03/12/2018 2:25 PM | | | | | PDT | | + + + + + | Oxygen Saturation | 97% | 03/12/2018 2:25 PM | | | | | PDT | | + + + + + | Inhaled Oxygen | - | - | | | Concentration | | | | + + + + + | Weight | 140.8 kg (310 lb 8 | 03/12/2018 2:25 PM | | | | oz) | PDT | | + + + + + | Height | - | - | | + + + + + | Body Mass Index | 47.21 | 02/19/2018 4:44 PM | | | [...] + + documented as of this encounter Patient Instructions Patient Instructions Annie Gannon AGACNP, FNP - 03/12/2018 2:00 PM PDTIf you have any questions or concerns please call: During Clinic hours: [phone] Evenings, weekends and Holidays: [phone], ask for the Oncologist on-call Please contact [...] catheter ? Painful rash Thank you, Annie Amezquita. Jagdeep, MSN, ROME-, WOLFGANG-C Nurse Practitioner Hematology & Medical Oncology documented in this encounter Progress Notes Annie Gannon AGACNP, FNP - 03/12/2018 2:00 PM PDTFormatting of this note might be dif ferent from the original. Display Progress Note in MyChart: Yes [facility] - ESTABLISHED PATIENT - RETURN VISIT Date: 02/19/2018 Name: Tati Cage : 1985 Home Town: [place], [place] Referring Physician: Sb Diagnosis: high risk [...] Take 25 mg by mouth once daily. Mrbvmjdbg-Baugmyfrk-Gp-Mag-Sim 518-54-290-40 mg/30 mL mucous membrane mouthwash, Take 5 [...] needed for anxiety (2nd line for nausea/vomiting). [facility], Bedside commode for nighttime use following foot [...] well perfused. Neurologic - A&O x 3. 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 Affect/Psych - Appropriate mood and [...] outweighs risk. 03/02 Dr. Chavira will see Keera. ROME ADHIKARI FNP HEMATOLOGY/MEDICAL ONCOLOGY AT [facility] [address] Mailcode: [place] [address] documented in this encounter Plan of Treatment +--------+ + + + + | Date | Type | Specialty | Care Team | Description | +--------+ + + + + | 03/25/ | Appointment | Radiology | Sandra Patel MD | | | 2018 | | | [address] | | | | | | [place], [place] | | | | | | [address] | | | | | | [phone] | | | | | | | | +--------+ + + + + | 03/25/ | Office | Orthopedics | Lynda Basurto, | | | 2019 | Visit | | [address] | | | | | | [address] | | | | | | [place], [place] | | | | | | [address] | | | | | | [phone] | | | | | | | | +--------+ + + + + | 03/25/ | Office | Hematology & | Sandra Patel MD | | | 2019 | Visit | Oncology | [address] | | | | | | [place], [place] | | | | | | [address] | | | | | | [phone] | | | | | | | | +--------+ + + + + documented as of this encounter Visit Diagnoses + + | Diagnosis | + + | 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
--- OUTSIDE RECORDS SUMMARY | ~2019-01-30 | XMS | Encounter Summary ---
Demographics + + + | Address | [address] | | | [place] [address] | + + + | Home Phone | | + + + | Preferred Language | Unknown | + + + | Marital Status | Single | + + + | Latter Day Affiliation | CAT | + + + | Race | Unknown | + + + | Ethnic Group | Not or | + + + Author + + + | Author | [facility] | + + + | Organization | [facility] | + + + | Address | Unknown | + + + | Phone | Unavailable | + + + Support + + +---------+ + | Name | Relationship | Address | Phone | + + +---------+ + | Kika Cage | ECON | Unknown | | + + +---------+ + Care Team Providers + +------+ + | Care Deputy Court Name | Role | Phone | + [...] | | 2018 | | Oncology at [place] | [address] | (neulasta) | | | | for Health & Healing | [place], [place] | | | | | [address] | [address] | | | | | Mailcode: [place] | [phone] | | | | | for Health and | | | | | | Healing, [address] | | | | | | [place], [place] | | | | | | [address] | | | | | | [phone] | | | +--------+ + + + [...] | | | 2018 | | | [address] | | | | | | [place], [place] | | | | | | [address] | | | | | | [phone] | | | | | | | | +--------+ + + + + | 03/25/ | Office | Orthopedics | Lynda ulloa, | | | 2018 | Visit | | [address] | | | | | | [address] | | | | | | [facility] [place] | | | | | | [address] | | | | | | [phone] | | | | | | | | +--------+ + + + + | 03/25/ | Office | Hematology & | Sandra Patel MD | | | 2018 | Visit | Oncology | [address] | | | | | | [place], [place] | | | | | | [address] | | | | | | [phone] | | | | | | | | +--------+ + + + + documented as of this encounter Visit Diagnoses Not on filedocumented in this encounter"
--- OUTSIDE RECORDS SUMMARY | ~2019-01-30 | XMS | Encounter Summary ---
Demographics + + + | Address | [address] | | | [place] [address] | + + + | Home Phone [...] Team Providers + +------+ + | Care On Air Personality Name | Role | Phone | + [...] | Synovial | Sandra Schmitt MD | [facility] [address] | | | | | sarcoma | [address] | [address] | | | | | ([facility]) | Ave | Mailcode: | | | | | Procedures | [facility] [place] | [address] | | | | | TRANSTHORACI | [address] | for Health | | | | | C | Phone: | and Healing | | | | | ECHOCARDIOGR | [phone] | [facility] [place] | | | | | AM WITH | Fax: | [address] | | | | | STRAIN - | [phone] | Phone: | | | | | CARDIO | | [phone] | | | | | MECHANICS, | | | | | | | ADULT [place] | | | | | | | [...] | | 2017 | | Oncology at [place] | [address] | | | | | for Health & Healing | [place], [place] | | | | | [address] | [address] | | | | | Mailcode: [place] | [phone] | | | | | for [facility] and | | | | | | [address] | | | | | | [place], [place] | | | | | | [address] | | | | | | [phone] | | | +--------+ + + + [...] Scott | | | | | | [place], [place] | | | | | | [address] | | | | | | [phone] | | | | | | | | +--------+ + + + + | 03/25/ | Office | Orthopedics | Lynda Basurto, | | | 2019 | Visit | | [address] | | | | | | [address] | | | | | | [facility] [place] | | | | | | [address] | | | | | | [phone] | | | | | | | | +--------+ + + + + | 03/25/ | Office | Hematology & | Sandra Patel MD | | | 2019 | Visit | Oncology | [address] | | | | | | [place], [place] | | | | | | [address] | | | | | | [phone] | | | | | | | | +--------+ + + + + + +------+--------+ + + | Name | Type | Priori | Associated Diagnoses | Order Schedule | | | | ty | | | + +------+--------+ + + | TRANSTHORACIC | ECG | Urgent | Synovial sarcoma | Ordered: 02/03/2018 | | ECHOCARDIOGRAM WITH | | | ([facility]) | | | STRAIN - CARDIO | [...]
--- OUTSIDE RECORDS SUMMARY | ~2019-01-30 | XMS | Encounter Summary ---
Demographics + + + | Address | [address] | | | [place] [address] | + + + | Home Phone [...] Author + + + | Author | [facility] | + + + | Organization | [facility] | + + + | Address | Unknown | + + + | Phone | Unavailable | + + + Support + + +---------+ + | Name | Relationship | Address | Phone | + + +---------+ + | Kika Cage | ECON | Unknown | | + + +---------+ + Care Team Providers + +------+ + | Care Aluminum Welder Name | Role | Phone | + [...] | | | | | | [facility] | Ave | | | | | | Procedures | [place], [place] | | | | | | [place] | [address] | | | | | | CONTRAST | Phone: | | | | | | | [phone] | | | | | | | Fax: | | | | | | | [phone] | | + +--------+ + + + [...] | Malignant | Lynda, | MD [address] | | | | | neoplasm of | MD [address] | | | | | soft tissue | [address] | [facility] [place] | | | | | of left | [address] | [address] | | | | | lower | [place], [place] | Phone: | | | | | extremity | [address] | [phone] | | | | | (HCC) | Phone: | Fax: | | | | | Procedures | [phone] | [phone] | | | | | CONSULT TO | Fax: | | | | | | HEMATOLOGY / | [phone] | | | | | | ONCOLOGY | | | + +--------+ + + + + Encounter Details +--------+---------+ + + + | Date | Type | Department | Care Team | Description | +--------+---------+ + + + | 12/03/ | Office | Hematology/Medical | Sandra Patel MD | Synovial sarcoma | | 2019 | Visit | Oncology at [place] | [address] | (HCC) (Primary Dx) | | | | for Health & Healing | [place], [place] | | | | | [address] | [address] | | | | | Mailcode: CH7N | [phone] | | | | | [facility] | | | | | | and Healing, [facility] | | | | | | [place], [place] | | | | | | [address] | | | | | | [phone] | | | +--------+---------+ + + + [...] Sandra Patel MD - 12/03/2018 3:40 PM PDT Display Progress Note in MyChart: Yes [facility] - ESTABLISHED PATIENT - RETURN VISIT Date: 12/03/2018 Name: Tati Cage : 1985 Home Town: [place], [place] PCP = Garima GOSS Referring Physician: [...] Yoli cations: phantom pain M[employer]ellaneous [employer] [facility], Bedside commode for nighttime use following foot [...] (she designed it). Neurologic - Awake, alert. 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 Affect/Psych - Appropriate. ECOG [...] with psychiatrist, on celexa and welbutrin. Appreciate SLIDE FASTENER CHAIN ASSEMBLER assista nce I spent 18 minutes with the patient. Greater than 50% of the time was spent counseling the patient regarding symptoms, LTFU and disease monitoring plan. Sandra Patel MD Eyeg[facility] Medical Oncology & Pediatric Hematology/Oncology [facility] documented in this encounter Plan of Treatment +--------+ + + + + | Date | Type | Specialty | Care Team | Description | +--------+ + + + + | 03/25/ | Appointment | Radiology | Sandra Patel MD | | | 2018 | | | [address] | | | | | | [place], [place] | | | | | | [address] | | | | | | [phone] | | | | | | | | +--------+ + + + + | 03/25/ | Office | Orthopedics | Lynda Basurto, | | | 2018 | Visit | | [address] | | | | | | [address] | | | | | | [place], [place] | | | | | | [address] | | | | | | [phone] | | | | | | | | +--------+ + + + + | 03/25/ | Office | Hematology & | Sandra Patel MD | | | 2018 | Visit | Oncology | [address] | | | | | | [place], [place] | | | | | | [address] | | | | | | [phone] | | | | | | | | +--------+ + + + + + +---------+--------+ + + | Name | Type | Priori | Associated Diagnoses | Order Schedule | | | | ty | | | + +---------+--------+ + + | CT CHEST WO CONTRAST | Imaging | Routin | Synovial sarcoma | Expected: 03/04/2019 | | | | e | (HCC) | (Approximate), | | | | | | Expires: 01/03/2020 | + +---------+--------+ + + documented as of this encounter Visit Diagnoses + + | Diagnosis | + + | 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
--- OUTSIDE RECORDS SUMMARY | ~2019-01-30 | XMS | Encounter Summary ---
Demographics + + + | Address | [address] | | | [place] [address] | + + + | Home Phone [...] Providers + +------+ + | Care Child Care Associate Teacher Name | Role | Phone | + +------+ + | Santo Gooden MD | PCP | | + +------+ + Reason for Visit + + + | Reason | Comments | + + + | Lab Draw | | + + + Consultation (Urgent) [...] | Malignant | Lynda, | MD [address] | | | | | neoplasm of | [address] | | | | | soft tissue | [address] | [place], [place] | | | | | of left | [address] | [address] | | | | | lower | [place], [place] | Phone: | | | | | extremity | [address] | [phone] | | | | | ([facility]) | Phone: | Fax: | | | | | Procedures | [phone] | [phone] | | | | | CONSULT TO | Fax: | | | | | | HEMATOLOGY / | [phone] | | | | | | ONCOLOGY | | | + +--------+ + + + + Encounter Details +--------+ + + + + | Date | Type | Department | Care Team | Description | +--------+ + + + + | 05/14/ | Hospital | Hematology/Medical | Rn, Fast Track | | | 2018 | Encounter | [facility] | [address] | | | | | [address] | [facility] [place] [address] | | | | | Mailcode: [place] | | | | | | for Health and | | | | | | Healing, [address] | | | | | | [place], [place] | | | | | | [address] | | | | | | [phone] | | | +--------+ + + + [...] documented as of this encounter Progress Notes Justine Thompson RN - 05/14/2018 12:48 PM PDTPatient here for PAC de access and re access. The patient states she is getting at home IV antibiotics which she is due for at 10 pm tonight. She states she only needs one lumen re accessed as she is only getting this medication and then getting de accessed in 2 days. She will then get flushed in 1 month and have the port r emoved shortly thereafter. Both lumens of PAC with brisk BR. Medial lumen flushed with 20ml NS and 500 units heparin a nd de accessed. Lateral lumen with BR, flushed with NS and de accessed. Lidocaine instilled intradermally over PAC site prior to access. Skin prepped with alcohol and betadine per protocol. Lateral Lumen of double lumen PAC acce ssed per protocol. CBC and CMP drawn and sent to POC lab. Other labs sent to core lab. PAC f lushed per protocol with 50 units of heparin and left accessed for patients at home regimen. Pt tolerated without incident. Pt discharged to provider visit. documented in this encou nter Plan of Treatment +--------+ + + + + | Date | Type | Specialty | Care Team | Description | +--------+ + + + + | 03/25/ | Appointment | Radiology | Sandra Patel MD | | | 2018 | | | [address] | | | | | | [place], [place] | | | | | | [address] | | | | | | [phone] | | | | | | | | +--------+ + + + + | 03/25/ | Office | Orthopedics | Lynda Basurto, | | | 2018 | Visit | | [address] | | | | | | [address] | | | | | | [place], [place] | | | | | | [address] | | | | | | [phone] | | | | | | | | +--------+ + + + + | 03/25/ | Office | Hematology & | Sandra Patel MD | | | 2019 | Visit | Oncology | [address] | | | | | | [place], [place] | | | | | | [address] | | | | | | [phone] | | | | | | | | +--------+ + + + + + +------+--------+ + + | Name | Type | Priori | Associated Diagnoses | Order Schedule | | | | ty | | | + +------+--------+ + + | URINE, MICROSCOPIC | Lab | Routin | | Collect Now for 1 | | EXAM | | e | | Occurrences starting | | | | | | 05/14/2018 until | | | | | | 05/14/2018 | + +------+--------+ + + documented as of this encounter Procedures + +--------+ + + + | Procedure Name | Priori | Date/Time | Associated Diagnosis | Comments | | | ty | | | | + +--------+ + + + | COMPLETE METABOLIC | Routin | 05/14/2018 | Synovial sarcoma | | | PANEL - OLP | e | 4:24 PM | (HCC) | | | | | PDT | | | + +--------+ + + + | CMP, POC (BMP+LFT) | Routin | 05/14/2018 | Synovial sarcoma | Results for this | | | e | 4:24 PM | (HCC) | procedure are in the | | | | PDT | | results section. | + +--------+ + + + | CBC WITH AUTO DIFF - | Routin | 05/14/2018 | Synovial sarcoma | | | OLP | e | 4:16 PM | (HCC) | | | | | PDT | | | + +--------+ + + + | CBC+DIFF,POC | Routin | 05/14/2018 | Synovial sarcoma | Results for this | | | e | 4:16 PM | (HCC) | procedure are in the | | | | PDT | | results section. | + +--------+ + + + | MAGNESIUM, PLASMA - | Routin | 05/14/2018 | Synovial sarcoma | Results for this | | OLP | e | 1:06 PM | (HCC) | procedure are in the | | | | PDT | | results section. | + +--------+ + + + | URINE, MICROSCOPIC | Routin | 05/14/2018 | Synovial sarcoma | Results for this | | EXAM | e | 1:06 PM | (HCC) | procedure are in the | | | | PDT | | results section. | + +--------+ + + + | PHOSPHORUS, PLASMA | Routin | 05/14/2018 | Synovial sarcoma | Results for this | | | e | 1:06 PM | (HCC) | procedure are in the | | | | PDT | | results section. | + +--------+ + + + | MAGNESIUM, PLASMA | Routin | 05/14/2018 | Synovial sarcoma | Results for this | | | e | 1:06 PM | (HCC) | procedure are in the | | | | PDT | | results section. | + +--------+ + + + documented in this encounter Results CMP, POC (BMP+LFT) (05/14/2018 4:24 PM PDT) + +---------+ + + + [...] +---------+ + + + | POTASSIUM, | 3.7 | 3.4 - 5.0 | [facility] | | | POC | | mmol/L | POINT OF | | | | | | CARE TESTS | | + +---------+ + + + | TOTAL CO2, | 29 (H) | 22 - 28 mmol/L | [facility], | | | POC | | | POINT OF | | | | | | CARE TESTS | | + +---------+ + + + | CHLORIDE, | 109 (H) | 97 - 108 mmol/L | [facility], | | | POC | | | POINT OF | | | | | | CARE TESTS | | + +---------+ + + + | GLUCOSE, | 157 (H) | 60 - 99 mg/dL | [facility], | | | POC | | | POINT OF | | | | | | CARE TESTS | | + +---------+ + + + | CALCIUM | 9.3 | 8.6 - 10.2 | [facility], | | | TOTAL, POC | | mg/dL | POINT OF | | | | | | CARE TESTS | | + +---------+ + + + | BUN, POC | 9 | 6 - 20 mg/dL | [facility], | | | | | | POINT OF | | | | | | CARE TESTS | | + +---------+ + + + | CREATININE, | 0.9 | 0.6 - 1.1 mg/dL | [facility], | | | POC | | | POINT OF | | | | | | CARE TESTS | | + +---------+ + + + | ALK PHOS, | 56 | 33 - 76 U/L | [facility] [...] +---------+ + + + | ALBUMIN, | 3.4 (L) | 3.5 - 4.7 g/dL | [facility], | | | CMP POC | | | POINT OF | | | | | | CARE TESTS | | + +---------+ + + + | PROTEIN | 6.7 | 6.4 - 8.2 g/dL | [facility], | | | TOTAL, CMP | | [...] + + + + | [facility] POINT | [address] | [place] [address] | | | OF CARE TESTS | | | | + + + + + CBC+DIFF,POC (05/14/2018 4:16 PM PDT) + + + + + + | Component | Value | Ref Range | Performed | Pathologist | | | | | At | Signature | + + + + + + | WBC POC | 5.7 | 3.5 - 10.8 | [facility], | | | | | 10*3/uL | POINT OF | | | | | | CARE TESTS | | + + + + + + | RBC POC | 3.10 (L) | 4.00 - 5.20 | [facility], | | | | | 10*6/uL | POINT OF | | | | | | CARE TESTS | | + + + + + + | HGB POC | 9.7 (L) | 12.0 - 16.0 | [facility], | | | | | g/dL | POINT OF | | | | | | CARE TESTS | | + + + + + + | HCT POC | 29.2 (L) | 36.0 - 46.0 % | [facility], | | | | | | POINT OF | | | | | | CARE TESTS | | + + + + + + | MCV POC | 94.2 | 80.0 - 100 fL | [facility], | | | | | | POINT OF | | | | | | CARE TESTS | | + + + + + + | MCH POC | 31.3 | 27.0 - 34.0 pg | [facility], | | | | | | POINT OF | | | | | | CARE TESTS | | + + + + + + | MCHC POC | 33.2 | 32.0 - 36.0 | [facility], | | | | | g/dL | POINT OF | | | | | | CARE TESTS | | + + + + + + | RDW SD, POC | 45.1 | 35.1 - 46.3 fL | [facility], | | | | | | POINT OF | | | | | | CARE TESTS | | + + + + + + | PLT POC | 378 | 150 - 400 | [facility], | | | | | 10*3/uL | POINT OF | | | | | | CARE TESTS | | + + + + + + | MPV POC | 9.3 (L) | 9.7 - 12.3 fL | [facility], | | | | | | POINT OF | | | | | | CARE TESTS | | + + + + + + | NEUTROPHIL% | 57.7 | 50.0 - 70.0 % | [facility], | | | POC | | | POINT OF | | | | | | CARE TESTS | | + + + + + + | LYMPH% POC | 21.9 | 18 - 42 % | [facility], | | | | | | POINT OF | | | | | | CARE TESTS | | + + + + + + | MONO %, POC | 19.3 (H) | 3.5 - 9.0 % | [facility], | | | | | | POINT OF | | | | | | CARE TESTS | | + + + + + + | EOS %, POC | 0.0 (L) | 1.0 - 3.0 % | [facility], | | | | | | POINT OF | | | | | | CARE TESTS | | + + + + + + | BASO %, POC | 1.1 | 0.0 - 2.0 % | [facility], | | | | | | POINT OF | | | | | | CARE TESTS | | + + + + + + | NEUTROPHIL# | 3.3 | 1.8 - 7.7 | [facility], | | | POC | | 10*3/uL | POINT OF | | | | | | CARE TESTS | | + + + + + + | LYMPH# POC | 1.2 | 1.0 - 4.8 | [facility], | | | | | 10*3/uL | POINT OF | | | | | | CARE TESTS | | + + + + + + | MONO #, POC | 1.1 (H) | 0.1 - 0.9 | [facility], | | | | | 10*3/uL | POINT OF | | | | | | CARE TESTS | | + + + + + + | EOS #, POC | 0.0 | 0.0 - 0.5 | [facility], | | | | | 10*3/uL | POINT OF | | | | | | CARE TESTS | | + + + + + + | BASO #, POC | 0.1 | 0.0 - 0.1 | [facility], | | | | | 10*3/uL [...] + + + + | [facility], POINT | [address] | [place] [address] | | | OF CARE TESTS | | | | + + + + + MAGNESIUM, PLASMA (05/14/2018 1:06 PM PDT) + +-------+ + + + [...] [facility] | [address] | [place] [address] | | | SERVICES, CORE | [address] | | | + + + + + URINE, MICROSCOPIC EXAM (05/14/2018 1:06 PM PDT) + +---------+ + + [...] | | | LABORATORY | | | [place] | | | SERVICES, | | | [...] + | [facility] | [address] | [place] [address] | | | SERVICES, CORE | [address] | | | + + + + + PHOSPHORUS, PLASMA (05/14/2018 1:06 PM PDT) + +-------+ + + + | Component | Value | Ref Range | Performed | Pathologist | | | | | At | Signature | + +-------+ + + + | PHOSPHORUS, | 4.2 | 2.4 - 4.7 mg/dL | [facility] [...] | + + + + + | [facility] | [address] | [place] [address] | | | SERVICES, CORE | [address] | | | + + + + + documented in this encounter Visit Diagnoses + + | Diagnosis | + + | 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
--- OUTSIDE RECORDS SUMMARY | ~2019-01-30 | XMS | Encounter Summary ---
Demographics + + + | Address | [address] | | | [place] [address] | + + + | Home Phone [...] Providers + +------+ + | Care Supervisor Public Message Service Name | Role | Phone | + [...] site | | 2018 | Encounter | [facility] [address] | [address] [facility] | [facility] | | | | Ave Mailcode: CH12A | [facility] | | | | | [facility] | [place], [place] | | | | | and | [address] | | | | | Floor [place], [place] | [phone] | | | | | [address] | | | | | | [phone] | | | +--------+ + + + [...] | | | 2018 | | | [address] | | | | | | [place], [place] | | | | | | [address] | | | | | | [phone] | | | | | | | | +--------+ + + + + | 03/25/ | Office | Orthopedics | Lynda Basurto, | | | 2018 | Visit | | [address] | | | | | | [address] | | | | | | [place], [place] | | | | | | [address] | | | | | | [phone] | | | | | | | | +--------+ + + + + | 03/25/ | Office | Hematology & | Sandra Patel MD | | | 2019 | Visit | Oncology | [address] | | | | | | [place], [place] | | | | | | [address] | | | | | | [phone] | | | | | | | | +--------+ + + + + documented as of this encounter Visit Diagnoses Not on filedocumented in this encounter"
--- OUTSIDE RECORDS SUMMARY | ~2019-01-30 | XMS | Encounter Summary ---
Demographics + + + | Address | [address] | | | [place] [address] | + + + | Home Phone [...] | +--------+ + + + + | 02/22/ | Pharmacy | Outpatient Retail | | | | 2017 | Visit | [facility] | | | | | | [address] | | | | | | [facility] | | | | | | [place], [place] | | | | | | [address] | | | +--------+ + + + [...] [address] | | | | | | [place] | | | | | | [address] | | | | | | [phone] | | | | | | | | +--------+ + + + + | 03/25/ | Office | Orthopedics | Lynda Basurto, | | | 2018 | Visit | | [address] | | | | | | [address] | | | | | | [place] | | | | | | [address] | | | | | | [phone] | | | | | | | | +--------+ + + + + | 03/25/ | Office | Hematology & | Sandra Patel MD | | | 2018 | Visit | Oncology | [address] | | | | | | [place] | | | | | | [address] | | | | | | [phone] | | | | | | | | +--------+ + + + + documented as of this encounter Visit Diagnoses Not on filedocumented in this encounter"
--- OUTSIDE RECORDS SUMMARY | ~2019-01-30 | XMS | Encounter Summary ---
Demographics + + + | Address | [address] | | | [place] [address] | + + + | Home Phone | | + + + | Preferred Language | Unknown | + + + | Marital Status | Single | + + + | Islam Affiliation | CAT | + + + | Race | Unknown | + + + | Ethnic Group | Not or | + + + Author + + + | Author | [facility] | + + + | Organization | [facility] | + + + | Address | Unknown | + + + | Phone | Unavailable | + + + Support + + +---------+ + | Name | Relationship | Address | Phone | + + +---------+ + | Kika Cage | ECON | Unknown | | + + +---------+ + Care Team Providers + +------+ + | Care Water Pump Servicer Name | Role | Phone | + [...] | | 2017 | Requisition | [address] | [address] | | | | | [address] [place], [place] | [address] | | | | | [address] | [place], [place] | | | | | | [address] | | | | | | [phone] | | | | | | | [...] Ave | | | | | | [place], [place] | | | | | | [address] | | | | | | [phone] | | | | | | | | +--------+ + + + + | 03/25/ | Office | Orthopedics | Lynda Basurto, | | | 2018 | Visit | | [address] | | | | | | [address] | | | | | | [place], [place] | | | | | | [address] | | | | | | [phone] | | | | | | | | +--------+ + + + + | 03/25/ | Office | Hematology & | Sandra Patel MD | | | 2018 | Visit | Oncology | [address] | | | | | | [place], [place] | | | | | | [address] | | | | | | [phone] | | | | | | | [...] + + + | [facility] | [address] [facility] | [place] [address] | | | DIAGNOSTIC | [address] | | | | LABORATORIES | | | | + + + + + documented in this encounter Visit Diagnoses + + | Diagnosis | + + | Encounter for other specified special examinations (CODE) | + + documented in this encounter"
--- OUTSIDE RECORDS SUMMARY | ~2019-01-30 | XMS | Encounter Summary ---
Demographics + + + | Address | [address] | | | [place] [address] | + + + | Home Phone [...] Team Providers + +------+ + | Care Radiation Safety Officer Name | Role | Phone | [...] | | 2017 | | [facility] [place] | | | | | | for Health & Healing | | | | | | [address] | | | | | | Mailcode: [place] | | | | | | for Health and | | | | | | [facility] | | | | | | [place], [place] | | | | | | [address] | | | | | | [phone] | | | +--------+ + + + [...] [address] | | | | | | [place], [place] | | | | | | [address] | | | | | | [phone] | | | | | | | | +--------+ + + + + | 03/25/ | Office | Orthopedics | Paul Basurtoen, | | | 2018 | Visit | | [address] | | | | | | [address] | | | | | | [place], [place] | | | | | | [address] | | | | | | [phone] | | | | | | | | +--------+ + + + + | 03/25/ | Office | Hematology & | Sandra Patel MD | | | 2018 | Visit | Oncology | [address] | | | | | | [place], [place] | | | | | | [address] | | | | | | [phone] | | | | | | | | +--------+ + + + + documented as of this encounter Visit Diagnoses Not on filedocumented in this encounter"
--- OUTSIDE RECORDS SUMMARY | ~2019-01-30 | XMS | Encounter Summary ---
Demographics + + + | Address | [address] | | | [place] [address] | + + + | Home Phone [...] + + | Author | [facility] | + + + | Organization | [facility] | + + + | Address | Unknown | + + + | Phone | Unavailable | + + + Support + + +---------+ + | Name | Relationship | Address | Phone | + + +---------+ + | Kika Cage | ECON | Unknown | | + + +---------+ + Care Team Providers + +------+ + | Care Generator Mechanic Name | Role | Phone | [...] | | 2018 | | [facility] [place] | [address] | | | | | for Health & Healing | [place], [place] | | | | | [address] | [address] | | | | | Mailcode: [place] | [phone] | | | | | for Health and | | | | | | Healing, [address] | | | | | | [facility] [place] | | | | | | [address] | | | | | | [phone] | | | +--------+ + + + [...] [address] | | | | | | [place], [place] | | | | | | [address] | | | | | | [phone] | | | | | | | | +--------+ + + + + | 03/25/ | Office | Orthopedics | Lynda Basurto, | | | 2018 | Visit | | [address] | | | | | | [address] | | | | | | [place], [place] | | | | | | [address] | | | | | | [phone] | | | | | | | | +--------+ + + + + | 03/25/ | Office | Hematology & | Sandra Patel MD | | | 2019 | Visit | Oncology | [address] | | | | | | [place], [place] | | | | | | [address] | | | | | | [phone] | | | | | | | | +--------+ + + + + documented as of this encounter Visit Diagnoses Not on filedocumented in this encounter"
--- OUTSIDE RECORDS SUMMARY | ~2019-01-30 | XMS | Encounter Summary ---
Demographics + + + | Address | [address] | | | [place] [address] | + + + | Home Phone [...] Team Providers + +------+ + | Care Real Estate Agent/Broker Name | Role | Phone | + [...] | | 2018 | | [facility] [place] | [address] | follow-up | | | | for Health & Healing | [place], [place] | (CHEMOTHERAPY | | | | [address] | [address] | [employer]); Care | | | | Mailcode: [place] | [phone] | Coordination | | | | for Health and | | ([place]) | | | | Healing, [address] | | | | | | [place], [place] | | | | | | [address] | | | | | | [phone] | | | +--------+ + + + [...] [place] | | | | | | [address] | | | | | | [phone] | | | | | | | | +--------+ + + + + | 03/25/ | Office | Orthopedics | Lynda Basurto, | | | 2018 | Visit | | [address] | | | | | | [address] | | | | | | [place], [place] | | | | | | [address] | | | | | | [phone] | | | | | | | | +--------+ + + + + | 03/25/ | Office | Hematology & | Sandra Patel MD | | | 2018 | Visit | Oncology | [address] | | | | | | [place], [place] | | | | | | [address] | | | | | | [phone] | | | | | | | [...]
--- OUTSIDE RECORDS SUMMARY | ~2019-01-30 | XMS | Encounter Summary ---
Demographics + + + | Address | [address] | | | [place] [address] | + + + | Home Phone [...] Team Providers + +------+ + | Care Dynamics Ax Solution Architect Name | Role | Phone | + +------+ + | Santo Gooden MD | PCP | | + +------+ + Encounter Details +--------+ + + + + | Date | Type | Department | Care Team | Description | +--------+ + + + + | 06/04/ | MyChart | Hematology/Medical | Sandra Patel MD | RE: Omeprazole | | 2018 | Encounter | [facility] [place] | [address] | | | | | for Health & Healing | [place], [place] | | | | | [address] | [address] | | | | | Mailcode: [facility]el[facility] | [phone] | | | | | [facility] | | | | | | and Healing, | | | | | | Floor [place], [place] | | | | | | [address] | | | | | | [phone] | | | +--------+ + + + [...] [address] | | | | | | [place], [place] | | | | | | [address] | | | | | | [phone] | | | | | | | | +--------+ + + + + | 03/25/ | Office | Orthopedics | Lynda Basurto, | | | 2018 | Visit | | [address] | | | | | | [address] | | | | | | [facility] [place] | | | | | | [address] | | | | | | [phone] | | | | | | | | +--------+ + + + + | 03/25/ | Office | Hematology & | Sandra Patel MD | | | 2019 | Visit | Oncology | [address] | | | | | | [place], [place] | | | | | | [address] | | | | | | [phone] | | | | | | | | +--------+ + + + + documented as of this encounter Visit Diagnoses Not on filedocumented in this encounter"
--- OUTSIDE RECORDS SUMMARY | ~2019-01-30 | XMS | Encounter Summary ---
Demographics + + + | Address | [address] | | | [place] [address] | + + + | Home Phone [...] Author + + + | Author | [facility] | + + + | Organization | [facility] | + + + | Address | Unknown | + + + | Phone | Unavailable | + + + Support + + +---------+ + | Name | Relationship | Address | Phone | + + +---------+ + | Kika Cage | ECON | Unknown | | + + +---------+ + Care Team Providers + +------+ + | Care Boiler Setter Name | Role | Phone | + +------+ + | Santo Gooden MD | PCP | | + +------+ + Encounter Details +--------+ + + + + | Date | Type | Department | Care Team | Description | +--------+ + + + + | 02/05/ | Pharmacy | Outpatient Retail | | | | 2018 | Visit | [facility] | | | | | | [address] | | | | | | [facility] | | | | | | [place], [place] | | | | | | [address] | | | +--------+ + + + [...] [address] | | | | | | [place], [place] | | | | | | [address] | | | | | | [phone] | | | | | | | | +--------+ + + + + | 03/25/ | Office | Orthopedics | Lynda Basurto, | | | 2018 | Visit | | [address] | | | | | | [address] | | | | | | [place], [place] | | | | | | [address] | | | | | | [phone] | | | | | | | | +--------+ + + + + | 03/25/ | Office | Hematology & | Sandra Patel MD | | | 2018 | Visit | Oncology | [address] | | | | | | [place], [place] | | | | | | [address] | | | | | | [phone] | | | | | | | | +--------+ + + + + documented as of this encounter Visit Diagnoses Not on filedocumented in this encounter"
--- OUTSIDE RECORDS SUMMARY | ~2019-01-30 | XMS | Encounter Summary ---
Demographics + + + | Address | [address] | | | [place] [address] | + + + | Home Phone [...] Team Providers + +------+ + | Care Ax Survey Worker Name | Role | Phone | [...] site | | 2018 | Encounter | [facility] [address] | [address] [facility] | [facility] | | | | Ave Mailcode: CH12A | [facility] | | | | | [facility] | [place], [place] | | | | | and | [address] | | | | | Floor [place], [place] | [phone] | | | | | [address] | | | | | | [phone] | | | +--------+ + + + [...] | | | 2018 | | | [address] | | | | | | [place], [place] | | | | | | [address] | | | | | | [phone] | | | | | | | | +--------+ + + + + | 03/25/ | Office | Orthopedics | Lynda Basurto, | | | 2018 | Visit | | [address] | | | | | | [address] | | | | | | [place], [place] | | | | | | [address] | | | | | | [phone] | | | | | | | | +--------+ + + + + | 03/25/ | Office | Hematology & | Sandra Patel MD | | | 2019 | Visit | Oncology | [address] | | | | | | [place], [place] | | | | | | [address] | | | | | | [phone] | | | | | | | | +--------+ + + + + documented as of this encounter Visit Diagnoses Not on filedocumented in this encounter"
--- OUTSIDE RECORDS SUMMARY | ~2019-01-30 | XMS | Encounter Summary ---
Demographics + + + | Address | [address] | | | [place] [address] | + + + | Home Phone [...] Team Providers + +------+ + | Care Graphotype Operator Name | Role | Phone | [...] | | 2017 | | [facility] at [facility] | | | | | [facility] | | | | | | [address] | | | | | | Mailcode: [facility] | | | | | | for [facility] and | | | | | | [facility], [facility] [address] | | | | | | [place], [place] | | | | | | [address] | | | | | | [phone] | | | +--------+ + + + [...] [address] | | | | | | [facility] [place] | | | | | | [address] | | | | | | [phone] | | | | | | | | +--------+ + + + + | 03/25/ | Office | Orthopedics | Lynda Basurto, | | | 2018 | Visit | | [address] | | | | | | [address] | | | | | | [place], [place] | | | | | | [address] | | | | | | [phone] | | | | | | | | +--------+ + + + + | 03/25/ | Office | Hematology & | Sandra Patel MD | | | 2019 | Visit | Oncology | [address] | | | | | | [facility] [place] | | | | | | [address] | | | | | | [phone] | | | | | | | | +--------+ + + + + documented as of this encounter Visit Diagnoses Not on filedocumented in this encounter"
--- OUTSIDE RECORDS SUMMARY | ~2019-01-30 | XMS | Encounter Summary ---
Demographics + + + | Address | [address] | | | [place] [address] | + + + | Home Phone [...] Team Providers + +------+ + | Care Family And Marriage Counsellor Name | Role | Phone | + [...] | | 2018 | | [facility] at [facility] | [address] | Results Abnormal | | | | [facility] | [place], [place] | | | | | [address] | [address] | | | | | Mailcode: [place] | [phone] | | | | | for Health and | | | | | | [address] | | | | | | [facility] [place] | | | | | | [address] | | | | | | [phone] | | | +--------+ + + + [...] | | | 2019 | | | [address] | | | | | | [place], [place] | | | | | | [address] | | | | | | [phone] | | | | | | | | +--------+ + + + + | 03/25/ | Office | Orthopedics | Rosy BasurtoAlexander, | | | 2018 | Visit | | [address] | | | | | | [address] | | | | | | [place], [place] | | | | | | [address] | | | | | | [phone] | | | | | | | | +--------+ + + + + | 03/25/ | Office | Hematology & | Sandra Patel MD | | | 2018 | Visit | Oncology | [address] | | | | | | [place], [place] | | | | | | [address] | | | | | | [phone] | | | | | | | | +--------+ + + + + documented as of this encounter Visit Diagnoses + + | Diagnosis | + + | 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
--- OUTSIDE RECORDS SUMMARY | ~2019-01-30 | XMS | Encounter Summary ---
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 [address] | [place], | | | 2018 - | Encounter | [address] | MD Annabelle [address] | | | | | [address] | [address] | | | 04/01/ | | [place] [address] | Rd [place], [place] | | | 2017 | | [phone] | [address] | | | | | | [phone] | | | | | | | | | | | | Larry Pinto MD | | | | | | [address] | | | | | | [place], | | | | | | [place] [address] | | | | | | [phone] | | | | | | | | | | | | Greg Del Rosario | | | | | | MD Sho [address] | | | | | | [address] | | | | | | [place], [place] | | | | | | [address] | | | | | | [phone] | | | | | | | [...] CBC and reticulocyte count on 04/04/[address] [facility]. Appointments: Future Appointments Provider Department Dept Phone Center 04/09/2018 2:00 PM Hem Starter Nurse Hematology/Medical Oncology at [facility] [phone] HemOnc 04/09/2018 3:10 PM Sandra Patel Hematology/Medical Oncology at [place] [address] [phone] [place] 04/09/2018 3:40 [address] [facility] Orthopaedics & Rehabilitation [phone] [place] Discharge condition: Fair Discharge destination (If [...] this medication while you are on narcotic marocs n medication. Hold for loose stool Indications: [...] anxiety (1st line nausea/vomiting). Miscellaneous Medical Supply Mis Commonly known as: Miscellaneous Medical Supply Bedside [...] 25 mg Tab Commonly known as: HYDRODIURIL Awyoxtpqm-Klquxxleu-Pt-Mag-Sim [id number] mg/30 mL Mwsh Commonly known as: FIRST-MOUTHWASH [...] room air Abdominal: nontender, non-distended, obese Skin: [place], warm, well-perfused, no ecchymoses Extremities: LLE mjjtg-bsu-bajd amputation site dressed in compression wrap. Drain [...] MD I spent more than 36 minutes eprp-yb-fokt with the patient of which greater than 50% was sp ent counseling the patient coordinating care. documented in th is encounter Discharge Instructions Instructions Rashida Thompson RN - 04/01/2018In order to receive services for line care and l ab work at [facility] Out Patient Infusion/Day Surgery: you will first need to be seen by an MD (with privilidges at [facility] Walk in clinic). Please go in to [facility] to see an MD prior to your Saturday04/04/[facility] for your lab [...] Orthopaedic Attending: Tati Cage 1985 32 y.o. [id number] 04/01/2018 03/23/2018 9 Macie Torre MD Diagnosis(es): [...] recs: zosyn x 6 weeks [facility]. Care Protocol Items: 1. [...] to make a follow up appointment in [facility] 2 weeks with ORTHO ONCOLOGY, Odalys Justen - (Sb and Jorge L) Junaid Burrell MD Orthopaedic Surgery, R3 [id number] 03/31/2018 ich Cesia, MIRROR PAINTER - 04/01/2018 12:14 PM PDT Orthopaedic Surgery Progress Note Patient: /Age: MRN: CSN: Date: Admission Date: Hospital Day: Orthopaedic Attending: Tati Cage 1985 32 y.o. [id number] 04/01/2018 03/23/2018 9 Macie Torre MD Diagnosis(es): [...] infection or alberto inage. Cesia Foster NP [facility] [address] [facility] [place] [place] [address] Lynda Ravi MD - 04/01/2018 11:49 AM [...] consulted, see above plan # Pancytopenia # Spzcs-ev-nnxjzes anemia Pt's WBC and platelets have recovered, but her anemia persists despite repeated transfusion s (total of 7 units pRBCs here and 1 unit previously at OSH). Likely hypoproliferation (nichole felivijay low reticulocyte index of 0.09)in setting of [...] n 03/17/18. - Pt beingfollowed by onc [facility], appreciate recs. Dr. Sandra Patel is [...] and hemat ology workup. Dawit Amaya, MS4 [facility] [phone] Associated attestation - Greg Del Rosario MD [...] with our plans. Greg Del Rosario MD [facility] Division of Hospital Medicine Teaching Attending I spent 37 minutes in the care of this patient, >50% engaged in bedside counseling or coord ination of care with orthopedics, anesthesia pain service.Bela Holt MD - 018 9:28 AM PDTPt weaned off PNB. Catheter pulled. Tip intact. Coag status normal prior to removal of catheter. APS will sign-off. Please pg APS [phone] with questions/concerns. Bela Holt MD APS # [id number] Lynda Ravi MD - 03/31/2018 9:14 AM [...] Admission Date: Hospital Day: Orthopaedic Attending: Tati Wilkerson Cage 1985 32 y.o. [id number] 03/31/2018 03/23/2018 8 Macie Torre MD Diagnosis(es): [...] to make a follow up appointment in [facility] 2 weeks with ORTHO ONCOLOGY, Odalys Tobin - (Sb and Jorge L) Junaid Burrell MD Orthopaedic Surgery, R3 [id number] 03/31/2018 Cesia Fay M D - 03/30/2018 4:51 PM PDTAPS Clarification Note; Tonight the continuous rate on the nerve block will be to 0 ml/hr and bolus only will be in place. Catheter will be pulled Saturday morning. Cesia Gaitan MD [facility] [address] [facility], 4th Floor Mail Code: [address] [address] Rafael Mann MD - 03/30/2018 4:35 PM PDT General Internal [...] on 03/17/18. - Pt beingfollowed by onc [facility], appreciate recs. Dr. Sandra Patel is her primary oncologist and she will have follow up on 04/09 to discuss cycle 3 planning. # mild LE edema Suspect due to IVF. - compression stocking to RLE. - will consider lasix # Pancytopenia # Whbny-dx-hblqlhz anemia Likely hypoproliferationin setting of recentsystemic chemotherapy and acute inflammatio n. Will continue to monitor and transfuse as needed, goal >7. - She has received a total of 5 units of pRBCs at [facility] and 1 unit previously at OSH. [...] Rafael Shell PGY-2 Internal Medicine Pager # [phone] Associated attestation - Greg Del Rosario MD - 03/30/2018 11:28 PM PDTGeneral Medicine Attending Progress Note Author: Greg Del Rosario MD Hospital Day # 7 PCP: Santo Gooden MD I personally interviewed the patient, performed the romero elements of the physical examinatio n, and personally formulated the assessment and plan with Dr Shell and Dr Hoskins. Please see GM progress note for additional details; [...] with our plans. Greg Del Rosario MD [facility] Division of Hospital Medicine Teaching Attending I [...] 25 mg 25 mg oral Q6H PRN jeyaybynddSMOUG-pixaexkju-ZKIWGF (SPECIAL MOUTHWASH) suspension (compound) 5 mL 5 [...] place. Catheter will be pulled Saturday morning. Peripheral nerve block in place: If Hood [...] 25 mg 25 mg oral Q6H PRN cmhucevsuzRPDLE-jnaaevnce-FVNZFX (SPECIAL MOUTHWASH) suspension (compound) 5 mL 5 [...] Orthopaedic Attending: Tati Cage 1985 32 y.o. [id number] 03/30/2018 03/23/2018 7 Macie Torre MD Diagnosis(es): [...] ID recs: zosyn x 6 weeks through [facility]'s existing port. Will be tapering nerve block [...] to make a follow up appointment in [facility] 2 weeks with ORTHO ONCOLOGY, Odalys OconnorJusten - (Sb and Jorge L) Adam Jean MD Pager: [phone] Dawit Gilliam - 4:46 PM PDT General [...] on 03/17/18. - Pt beingfollowed by onc [facility], appreciate recs. Dr. Sandra Patel is her primary oncologist . Oncology team communicating with Dr. Patel. - Coordinating with onc and ortho regarding plan for timing of cycle 3 of chemotherapy, whi ch will need to be delayed to allow for healing after infection. # Pancytopenia # Kfrzm-ro-tdtiyys anemia Likely hypoproliferationin setting of recentsystemic chemotherapy and acute inflammatio n. Will continue to monitor and transfuse as needed, goal >7. - Hg 6.8 this morning --> pRBC x1 today - She has received a total of 5 units of pRBCs at [facility] and 1 unit previously at OSH. [...] Dispo: Continue inpatient care Dawit Amaya, MS4 [facility] & [facility] Pager [phone] signed by Greg Del Rosario MD at [...] with our plans. Greg Del Rosario MD [facility] [employer] Division of Hospital Medicine Teaching Attending I [...] Orthopaedic Attending: Tati Cage 1985 32 y.o. [id number] 03/29/2018 03/23/2018 6 Macie Torre MD Diagnosis(es): [...] to make a follow up appointment in [facility] 2 weeks with ORTHO ONCOLOGY, Odalys Tobin - (Sb and Jorge L) Adam Jean MD Pager: [phone] Tawana Dawit Sho - 1:33 PM PDT General Internal Medicine [...] in 4/5. Pathology Report from 03/24/18 left xafbx-igw-nixr amputation site debridement: "A. Soft tissue, left [...] on 03/17/18. - Pt beingfollowed by onc [facility], appreciate recs. Dr. Sandra Patel is her primary oncologist . Oncology team will communicate with Dr. Patel. - Coordinating with onc and ortho regarding plan for timing of cycle 3 of chemotherapy, whi ch will need to be delayed to allow for healing after infection. # Pancytopenia # Tqyaj-de-cqpwmae anemia Likely hypoproliferationin setting of recentsystemic chemotherapy and acute inflammatio n. Will continue to monitor and transfuse as needed, goal >7. - Hg 9.2 this morning. - She has received at total of 4 units of pRBCs at [facility] and 1 unit previously at OSH. [...] Dispo: Continue inpatient care Dawit Amaya, MS4 [facility] Pager [phone] signed by Greg Del Rosario MD at [...] with our plans. Greg Del Rosario MD [employer] Division of Hospital Medicine Teaching Attending I [...] Orthopaedic Attending: Tati Cage 1985 32 y.o. [id number] 03/28/2018 03/23/2018 5 Macie Torre MD Diagnosis(es): [...] to make a follow up appointment in [facility] 2 weeks with ORTHO ONCOLOGY, Odalys [...] edge. Junaid Burrell MD Orthopaedic Surgery, R3 [id number] 03/26/2018 t Madiha Lopez FNP - 03/28/2018 12:15 PM PDT INPATIENT [...] 25 mg 25 mg oral Q6H PRN bvgetgomkoKROLJ-tdefnixdw-TWLZXO (SPECIAL MOUTHWASH) suspension (compound) 5 mL 5 [...] on file Social History Narrative Works in [employer] at a [employer] near [place]. No kids. Lives with her mother Kika. [...] by primary care team. Madiha Rebollar DNP, RADIOLOGIC TECHNOLOGY INSTRUCTOR-C [facility] [address] [place] [address] Lynda Ravi MD - 03/28/2018 8:06 AM [...] by Lynda Basurto MD at 8:08 AM PDTXu, MD Ricardo,PhD - 03/27/2018 6:21 PM PDTBrief APS Note [...] Ricardo Morales MD/PhD Anesthesiology CA-2 APS pager [phone] signed by Arnold Street MD at 03/28/2018 7:02 AM PDTGirishDawit riley Sho - 03/27/2018 6:39 AM PDT [...] neutropenia after c hemotherapy. # Pancytopenia # Gpjbg-fx-qiqodad anemia Likely hypoproliferation in setting of recentsystemic chemotherapy and acute inflammation . Will continue to monitor and transfuse as needed, goal >7. - Hg 8.0 this morning prior to procedure today, 7.4 after. EBL of 200 mL during procedure. - She has received at total of 4 units of pRBCs at [facility] and 1 unit previously at OSH. [...] on 03/17/18. - Pt beingfollowed by onc [facility], appreciate recs. Dr. Sandra Patel is [...] Dispo: Continue inpatient care Dawit Amaya, MS4 [facility] Pager [phone] signed by Greg Del Rosario MD at [...] with our plans. Greg Del Rosario MD [facility] [employer] Division of Hospital Medicine Teaching Attending I [...] closure. -NPO p MN -cont IV abx Dawit Gilliam - 03/26/2018 4:45 PM PDTFormatting of this [...] units of pRBCs have been given at [facility], with 1 unit given at OSH. [...] returning to the OR. # Pancytopenia # Adsct-qe-gkvpmhm anemia Likely hypoproliferation in setting of recentsystemic chemotherapy and acute inflammation . No evidence of acute blood loss or hemolysis. Drainage from wound vac has been minimal. Wi ll continue to monitor and transfuse as needed, goal >7. - Hg improved to 9.2 today after an additional unit of pRBCs this morning. She has received at total of 4 units of pRBCs at [facility] and 1 unit previously at OSH. [...] 03/17/18. - Pt being followed by onc [facility], appreciate recs. Dr. Sandra Patel is [...] Dispo: Continue inpatient care Dawit Amaya, MS4 [facility] [employer] Pager [phone] signed by Greg Del Rosario MD at [...] with our plans. Greg Del Rosario MD [employer] Back T[employer] Division of Hospital Medicine Teaching Attending I [...] Orthopaedic Attending: Tati Cage 1985 32 y.o. [id number] 03/26/2018 03/23/2018 3 Macie Torre MD Diagnosis(es): left below-knee amputation stump infection Orthopaedic Procedure(s) & Date(s): irrigation and debridement of left below-knee amputati on stump, wound vac application Assessment & Plan: Tati Rhea Gray is a 32 y.o.F with the diagnoses/procedures [...] to make a follow up appointment in [facility] 2 weeks with ORTHO ONCOLOGY, Odalys [...] edge. Junaid Burrell MD Orthopaedic Surgery, R3 [id number] 03/26/2018 Greg Dean MD - 03/25/2018 9:59 [...] trend continues. Plan to return to OR for repeat debridement and closure. Patient/Family Goals & Expectations: Above problems discussed with the patient who understands and is agreeable with our plans. Greg Del Rosario MD Singer Back Tender Division of [facility] Medicine Teaching Attending I spent 35 minutes in the care of this patient, >50% engaged in bedside counseling or coord ination of care with orthopedics. Lynda Ravi MD - 03/25/2018 8:51 AM PDTPt [...] Orthopaedic Attending: Tati Cage 1985 32 y.o. [id number] 03/25/2018 03/23/2018 2 Macie Torre MD Diagnosis(es): [...] to make a follow up appointment in [facility] 2 weeks with ORTHO ONCOLOGY, Odalys [...] knee. Reflexes: not performed Sorin Aguirre MD [facility] Department of Orthopaedics & Rehabilitation [address] [facility] Mail Code: OP31 [place] [address] awit Amaya - 03/03 7:30 AM PDT General Internal [...] expected after course of ifosfamide, with neutrophil ordriguez typically occurring on day 8-14 after las [...] 03/17/18. - Pt being followed by onc [facility], appreciate recs. Dr. 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 Yves "Eleanor Cornejo MD Internal Medicine PGY-2 P This note has been documented with the assistance of voice recognition software. Please not e, there may be typographic or semantic errors as a result. The medical plan has been review ed and is considered complete and correct. AmayaAdalbertojj Berkowitz - 03/24/2018 4:39 PM PDT General Internal Medicine 1 Progress Note 24 Hour Events: - Irrigation and debridement of left dmzks-rkm-nmkb amputation stump followed by wound vac placement, [...] Dispo: Continue inpatient care Dawit Amaya, MS4 [facility] Pager [phone] signed by Greg Del Rosario MD at [...] TSERING DUMONT MD,MPH PGY-5 Orthopaedic Surgery Pager: [phone] Deann Andrew MD - 03/24/2018 2:00 AM [...] Federico Simpson MD Orthopedic Surgery, R2 Pager [phone] documented in this encounter Plan of Treatment +--------+ + + + + | Date | Type | Specialty | Care Team | Description | +--------+ + + + + | 03/25/ | Appointment | Radiology | Sandra Patel MD | | | 2018 | | | [address] | | | | | | [place], [place] | | | | | | [address] | | | | | | [phone] | | | | | | | | +--------+ + + + + | 03/25/ | Office | Orthopedics | Lynda Basurto, | | | 2018 | Visit | | [address] | | | | | | [address] | | | | | | [place], [place] | | | | | | [address] | | | | | | [phone] | | | | | | | | +--------+ + + + + | 03/25/ | Office | Hematology & | Sandra Patel MD | | | 2019 | Visit | Oncology | [address] | | | | | | [place], [place] | | | | | | [address] | | | | | | [phone] | | | | | | | [...] CHG), | e | 12:06 PM | (HCC) | procedure are in [...] | | | AMPUTATION | ve | 9:37 AM | BELOW KNEE | | | [...] | + +--------+ + + + | YARA WITH | Routin | 03/25/2018 | | Results for this | | DIFFERENTIAL | e | 2:23 AM | | procedure are in the | | | | PDT | | results section. | + +--------+ + + + | CARINA PAUL | Routin | 03/24/2018 | | Results [...] | | | LABORATORY | | | [facility] | | | SERVICES, | | | [...] [facility] | [address] | [place] [address] | | | SERVICES, CORE | [address] [...] + + | [facility] | [address] | [place] [address] | | | SERVICES, CORE | [address] | | | + + + [...] | + + + + + | [facility] | [address] | [place] [address] | | | SERVICES, CORE | [address] | | | + + + [...] [facility] | [address] | [place] [address] | | | SERVICES, CORE | [address] [...] | + + + + + | [facility] | [address] | [place] [address] | | | SERVICES, CORE | [address] | | | + + + + + CT LOWER EXTREMITY BILATERAL W CONTRAST (03/31/2018 5:09 PM PDT) + + | Specimen | + + | | + + + + + | Narrative | Performed At | + + + | EXAM: CT EXT LWR BILAT W CONTRAST HISTORY: 52-year-old female | [facility] | | with history of left foot [...] administered. FINDINGS: The patient has a left idbob-xwa-tggl | | | amputation. A surgical drain [...] 10:01 AM | | | Dictation initiated: Hedler Romano MD 03/31/2018 5:16 PM | | [...] administered. FINDINGS: The patient has a left mbaxr-uyr-otae amputation. A surgical | | drain is [...] now presented. Final signature: Derrick Ledbetter | Minerva Palma MD 03/31/2018 5:18 PM Preliminary: Derrick Ledbetter MD [...] IG# effective | [facility] | | 01/09/2018 Collect after 2 units have completed transfusion. | LABORATORY | | | [address]I [address] | + + + + + + + + | Performing | Address | City/State/Zipcode | Phone Number | | Organization | | | | + + + + + | [facility] | [address] | [place] [address] | | | ANTONI ANGUIANO | [address] | | | + + + [...] [facility] | [address] | [place] [address] | | | SERVICES, | [address] [...] | | | LABORATORY | | | [facility] | | | SERVICES, | | | [...] | Interpretive Information: <60 mL/min/1.73 sq | [facility] | | m Chronic Kidney Disease <15 [...] [facility] | [address] | [place] [address] | | | SERVICES, CORE | [address] [...] | + + + + + | [facility] | [address] | [place] [address] | | | SERVICES, CORE | [address] | | | + + + [...] [facility] | [address] | [place] [address] | | | SERVICES, | [address] [...] [facility] | [address] | [place] [address] | | | SERVICES, CORE | P[address] [...] | + + + + + | [facility] | [address] | [place] [address] | | | SERVICES, CORE | [address] [...] + + + + | PRODUCT | [id number] | | [facility] | | | UNIT [...] + + + + | EXPIRATION | [id number] | | [facility] | | | DATE [...] + + + + | BLOOD | [id number] | | [facility] | | | PRODUCT [...] + + | [facility] | [address] | [place] [address] | | | SERVICES, | [address] [...] + + + + | PRODUCT | [id number] | | [facility] | | | UNIT [...] + + + + | EXPIRATION | [id number] | | [facility] | | | DATE [...] + + + + | BLOOD | [id number] | | [facility] | | | PRODUCT [...] [facility] | [address] | [place] [address] | | | SERVICES, | [address] [...] + + + + | PRODUCT | [id number] | | [facility] | | | UNIT [...] + + + + | EXPIRATION | [id number] | | [facility] | | | DATE [...] + + + + | BLOOD | [id number] | | [facility] | | | PRODUCT [...] [facility] | [address] | [place] [address] | | | SERVICES, | [address] [...] | + + + + + | [facility] | [address] | [place] [address] | | | SERVICES, CORE | [address] | | | + + + + + DIFFERENTIAL, ADD ON (03/31/2018 4:53 AM PDT) + [...] [facility] | [address] | [place] [address] | | | SERVICES, CORE | [address] [...] | + + + + + | [facility] | [address] | [place] [address] | | | SERVICES, CORE | [address] [...] | | | LABORATORY | | | [facility]IAN | | | SERVICES, | | | [...] Interpretive Information: <60 mL/min/1.73 sq | SERVICES, [facility] | | m Chronic Kidney Disease <15 [...] [facility] | [address] | [place] [address] | | | SERVICES, CORE | P[address] [...] + + | [facility] | [address] | [place] [address] | | | ANTONI ANGUIANO | [address] | | | + + + + [...] | | | POC | | | [place] | | | | | | [...] + | [facility] | [address] | [place], [place] | | | [facility] | [address] | [address] | | | TESTS | | | [...] | + + + + + | [facility] | [address] | [place] [address] | | | SERVICES, CORE | [address] | | | + + + [...] | | | LABORATORY | | | [facility] | | | SERVICES, | | | [...] [facility] | [address] | [place] [address] | | | SERVICES, CORE | [address] [...] | + + + + + | [facility] | [address] | [place] [address] | | | SERVICES, CORE | P[address] [...] [facility] | [address] | [place] [address] | | | SERVICES, | [address] [...] | + + + + + | [facility] | [address] | [place] [address] | | | SERVICES, | [address] [...] + + + + | PRODUCT | [id number] | | [facility] | | | UNIT [...] + + + + | EXPIRATION | [id number] | | [facility] | | | DATE [...] + + + + | BLOOD | [id number] | | [facility] | | | PRODUCT [...] [facility] | [address] | [place] [address] | | | SERVICES, | [address] [...] - [facility] | [address] | [place], [place] | | | [place] OF CARE | [facility] | [address] | | | TESTS | | | [...] | + + + + + | [facility] | [address] | [place] [address] | | | SERVICES, CORE | [address] [...] | | | LABORATORY | | | ARM[facility]IAN | | | SERVICES, | | | [...] [facility] | [address] | [place] [address] | | | SERVICES, CORE | [address] [...] [facility] | [address] | [place] [address] | | | SERVICES, CORE | [address] | | | + + + + + RBC MORPHOLOGY (03/28/2018 6:54 AM PDT) + + + + + + | Component | Value | Ref Range | Performed | Pathologist | | | | | At | Signature | + + + + + + | DOSALE | Present | | [facility] | | [...] [facility] | [address] | [place] [address] | | | SERVICES, ANTONI | [address] [...] [facility] | [address] | [place] [address] | | | SERVICES, CORE | [address] [...] | | | LABORATORY | | | [facility] | | | SERVICES, | | | [...] [facility] | [address] | [place] [address] | | | SERVICES, CORE | [address] | | | + + + [...] | + + + + + | [facility] | [address] | [place] [address] | | | ANTONI ANGUIANO | [address] | | | + + + + + OPERATION RECORD (03/27/2018 12:10 PM PDT) + + | Procedure Note | + + | Lynda Basurto MD - 03/27/2018 12:10 PM PDT Date of Service: 03/27/2018 | | Attending Surgeon: Lynda Basurto MD Chief Information Security Officer(s): Odalys | | Mike Tobin PA-C. Please note no other qualified trading assistant was available. | | Preoperative Diagnosis: [...] closure of the fascia. This was a 10-Martiniquais | | channel drain. Please note, the [...] long her antibiotics need to go for.DARIUS Magallon/MARA: 03/27/2018 | | 11:18:37DT: 03/27/2018 12:10:06Job #: [id number] | + + CAPILLARY BLOOD GLUCOSE (NO [...] [facility] | [address] | [place], [place] | | | [facility] | [address] | [address] | | | TESTS | | | | + + + + + PROCEDURE NOTE (03/27/2018 11:37 AM PDT) + + + | Narrative | Performed At | + + + | Odalys Tobin PA-C 03/27/2018 11:39 AM INPATIENT | | | BRIEF OPERATIVE NOTE Procedure Date: 03/27/2018 Author: ODALYS | | | ELVI TOBIN PA-C Attending Physician: Dr. Lynda Basurto [...] + | [facility] | [address] | [place], [place] | | | [facility] | [address] | [address] | | | TESTS | | | [...] - | | | | | | [facility] | | + + + + + [...] Gram Stain: No squamous epithelial cells | [place] | | Rare polymorphonuclear cells No organisms seen | | + + + + + + + + | Performing | Address | City/State/Zipcode | Phone Number | | Organization | | | | + + + + + | [facility] - | [address] | [place] [address] | | | [place] | | | | + + + [...] | | cells No organisms seen | [place] | + + + + + + + + | Performing | Address | City/State/Zipcode | Phone Number | | Organization | | | | + + + + + | [facility] | [address] | [place] [address] | | | [place] | | | [...] + | [facility] | [address] | [place] [address] | | | [place] | | | [...] Stain: No squamous epithelial cells No | [place] | | polymorphonuclear cells No organisms seen | | + + + + + + + + | Performing | Address | City/State/Zipcode | Phone Number | | Organization | | | | + + + + + | [facility] | [address] | [place] [address] | | | [place] | | | [...] Gram Stain: No squamous epithelial cells | [place] | | Rare polymorphonuclear cells No organisms seen | | + + + + + + + + | Performing | Address | City/State/Zipcode | Phone Number | | Organization | | | | + + + + + | [facility] | [address] | [place] [address] | | | [place] | | | [...] + | [facility] | [address] | [place], [place] | | | [facility] | [address] | [address] | | | TESTS | | | [...] [facility] | [address] | [place] [address] | | | SERVICES, CORE | [address] | | | + + + [...] February 13 | [facility] | | 2018. Increased immature [...] | + + + + + | [facility] | [address] | [place] [address] | | | SERVICES, CORE | [address] [...] MCHC, PLT, IG% and IG# effective | [facility] | | 01/09/2018 | LABORATORY | | | ANTONI ANGUIANO | + + + + + + + + | Performing | Address | City/State/Zipcode | Phone Number | | Organization | | | | + + + + + | [facility] | [address] | [place] [address] | | | SERVICES, ANTONI | PARK [...] | | | LABORATORY | | | [facility] | | | SERVICES, | | | [...] | + + + + + | [facility] | [address] | [place] [address] | | | ANTONI ANGUIANO | [address] | | | + + + [...] MCHC, PLT, IG% and IG# effective | [facility] | | 01/09/2018 | LABORATORY | | | SERVICES, CORE | + + + + + + + + | Performing | Address | City/State/Zipcode | Phone Number | | Organization | | | | + + + + + | [facility] | [address] | [place] [address] | | | SERVICES, CORE | PARK [...] | + + + + + | [facility] | [address] | [place] [address] | | | SERVICES, CORE | [address] | | | + + + [...] | | | LABORATORY | | | [facility] | | | SERVICES, | | | [...] | + + + + + | [facility] | [address] | [place] [address] | | | SILVIO, ANTONI | [address] | | | + + + [...] + + + + | PRODUCT | [id number] | | [facility] | | | UNIT [...] + + + + | EXPIRATION | [id number] | | [facility] | | | DATE [...] + + + + | BLOOD | [id number] | | [facility] | | | PRODUCT [...] [facility] | [address] | [place] [address] | | | SERVICES, | [address] [...] [facility] | [address] | [place] [address] | | | SERVICES, CORE | PARK [...] | + + + + + | [facility] | [address] | [place] [address] | | | SERVICES, CORE | PARK [...] + + + + | PRODUCT | [id number] | | [facility] | | | UNIT [...] + + + + | EXPIRATION | [id number] | | [facility] | | | DATE [...] + + + + | BLOOD | [id number] | | [facility] | | | PRODUCT [...] | + + + + + | [facility] | [address] | [place] [address] | | | SERVICES, | [address] [...] [facility] | [address] | [place] [address] | | | SERVICES, CORE | P[address] [...] | + + + + + | [facility] | [address] | [place] [address] | | | SERVICES, CORE | [address] | | | + + + [...] [facility] | [address] | [place] [address] | | | SERVICES, CORE | PARK [...] [facility] | [address] | [place] [address] | | | ANTONI ANGUIANO | [address] | | | + + + [...] [facility] | [address] | [place] [address] | | | SERVICES, CORE | PARK [...] | + + + + + | [facility] | [address] | [place] [address] | | | SERVICES, CORE | [address] | | | + + + [...] | | | LABORATORY | | | [facility] | | | SERVICES, | | | [...] | + + + + + | [facility] | [address] | [place] [address] | | | SERVICES, ANTONI | [address] | | | + + + [...] + + + + | PRODUCT | [id number] | | [facility] | | | UNIT [...] + + + + | EXPIRATION | [id number] | | [facility] | | | DATE [...] + + + + | BLOOD | [id number] | | [facility] | | | PRODUCT [...] [facility] | [address] | [place] [address] | | | SERVICES, | [address] [...] [facility] | [address] | [place] [id number] | | | SERVICES, CORE | PARK [...] [facility] | [address] | [place] [address] | | | SERVICES, CORE | P[address] [...] [facility] | [address] | [place] [address] | | | ANTONI ANGUIANO | [address] | | | + + + [...] Thank you! | LABORATORY | | | ANTONI ANGUIANO | + + + + + + + + | Performing | Address | City/State/Zipcode | Phone Number | | Organization | | | | + + + + + | [facility] | [address] | [place] [address] | | | ANTONI ANGUIANO | [address] | | | + + + + + DEBRIDEMENT OF BELOW KNEE AMPUTATION STUMP (03/24/2018 1:31 PM PDT) + + + | Narrative | Performed At | + + + | Macie Torre MD 03/24/2018 1:49 PM [facility] | | | [facility] | | | OPERATIVE REPORT | | | Patient | | | Name: Tati Cage Date of : 1985 Medical Record | | | Number: [id number] Contract Serial Number:: [id number] Report | | | Author: MACIE TORRE MD Procedure Date: 03/24/2018 | | | Attending Physician: 1. MACIE TORRE MD Chief Information Security Officer(s): | | | 1. Tsering Dumont MD [...] | Surgical Drains: VAC Indications for Procedure(s): Tati | | | Rhea Cage is a [...] and | | | fascia. Wound size [id number] after tacking back fascia | | | [...] in the remaining wound | | | [id number]. Excellent seal was attained. The patient was [...] | | | GLUCOSE, | | | [facility] | | | POC | | | [...] [facility] | [address] | [place], [place] | | | MIN[facility] | [facility] | [address] | | | TESTS | | | [...] amputation | | DEPARTMENT | signed by Sung | | Diagnosis | site, debridement:- | [...] | | | | | | number [id number].A. Leg, | | | | | | [...] | | | | | determined by [facility] | | | | | | laboratories. [...] | + + + + + | [facility] | [address] | [place] [address] | | | PATHOLOGY | [address] [...] No squamous epithelial cells Rare polymorphonuclear | [place] | | cells No organisms seen | | + + + + + + + + | Performing | Address | City/State/Zipcode | Phone Number | | Organization | | | | + + + + + | [facility] | [address] | [place] [address] | | | [place] | | | | + + + [...] negative Staphylococcus species Please contact the | [place] | | microbiology laboratory if further work up of [...] + | [facility] - | [address] | [place] [address] | | | [place] | | | [...] AM for susceptibilities 1+ Prevotella bivia | [facility] - | | Gram Stain: No squamous epithelial cells No polymorphonuclear | [place] | | cells No organisms seen | | + + + + + + + + | Performing | Address | City/State/Zipcode | Phone Number | | Organization | | | | + + + + + | [facility] | [address] | [place] [address] | | | [place] | | | [...] Enterococcus faecalis | [facility] - | | Refer to culture collected 03/24/18 at 11:56 AM for susceptibilities | [facility] - | | Rare Prevotella bivia Gram Stain: No squamous epithelial cells | [place] | | Rare polymorphonuclear cells No organisms seen | | + + + + + + + + | Performing | Address | City/State/Zipcode | Phone Number | | Organization | | | | + + + + + | [facility] | [address] | [place] [address] | | | [place] | | | [...] Gram Stain: No squamous epithelial cells | [facility] - | | No polymorphonuclear cells No organisms seen | [place] | + + + + + + [...] + | [facility] | [address] | [place] [address] | | | [place] | | | | + + + [...] + + + + | PRODUCT | [id number] | | [facility] | | | UNIT [...] + + + + | EXPIRATION | [id number] | | [facility] | | | DATE [...] + + + + | BLOOD | [id number] | | [facility] | | | PRODUCT [...] | + + + + + | [facility] | [address] | [place] [address] | | | SERVICES, | [address] | | | | TRANSFUSION MEDICINE [...] + + + + | PRODUCT | [id number] | | [facility] | | | UNIT [...] + + + + | EXPIRATION | [id number] | | [facility] | | | DATE [...] + + + + | BLOOD | [id number] | | [facility] | | | PRODUCT [...] [facility] | [address] | [place] [address] | | | SERVICES, | [address] [...] + + + + | PRODUCT | [id number] | | [facility] | | | UNIT [...] + + + + | EXPIRATION | [id number] | | [facility] | | | DATE [...] + + + + | BLOOD | [id number] | | [facility] | | | PRODUCT [...] [facility] | [address] | [place] [address] | | | SERVICES, | [address] [...] [facility] | [address] | [place] [address] | | | SILVIO, ANTONI | [address] | | | [...] | + + + + + | [facility] | [address] | [place] [address] | | | SERVICES, CORE | [address] | | | + + + [...] + + | [facility] | [address] | [place] [address] | | | SERVICES, CORE | PARK [...] | | | LABORATORY | | | ARMENIAN | | | SERVICES, | | | [...] | + + + + + | [facility] | [address] | [place] [address] | | | SERVICES, CORE | PARK [...] [facility] | [address] | [place] [address] | | | ANTONI ANGIUANO | [address] | | | + [...] + + + + | PRODUCT | [id number] | | [facility] | | | UNIT [...] + + + + | EXPIRATION | [id number] | | [facility] | | | DATE [...] + + + + | BLOOD | [id number] | | [facility] | | | PRODUCT [...] | + + + + + | [facility] | [address] | [place] [address] | | | SERVICES, | [address] [...] and new reporting units as of | [facility] | | 02/03/2014. | LABORATORY | | | SERVICES, CORE | + + + + + + + + | Performing | Address | City/State/Zipcode | Phone Number | | Organization | | | | + + + + + | [facility] | [address] | [place] [address] | | | SERVICES, CORE | P[address] [...] | + + + + + | [facility] | [address] | [place] [address] | | | SERVICES, CORE | P[address] [...] | + + + + + | [facility] | [address] | [place] [address] | | | SERVICES, CORE | [address] | | | + + + [...] [facility] | [address] | [place] [address] | | | SERVICES, CORE | P[address] [...] | + + + + + | [facility] | [address] | [place] [address] | | | SERVICES, CORE | [address] | | | + + + [...] | | | LABORATORY | | | ARM[facility]IAN | | | SERVICES, | | | [...] | + + + + + | [facility] | [address] | [place] [address] | | | ANTONI ANGUIANO | [address] | | | + + + [...] [facility] | [address] | [place] [address] | | | SERVICES, CORE | [address] [...] [facility] | [address] | [place] [address] | | | SERVICES, CORE | [address] [...] [facility] | [address] | [place] [address] | | | SERVICES, | [address] [...] [facility] | [address] | [place] [address] | | | SERVICES, CORE | [address] [...] [facility] | [address] | [place] [address] | | | SERVICES, | [address] [...] [facility] | [address] | [place] [address] | | | SERVICES, CORE | [address] | | | + + + + + CULTURE, BLOOD BACTI & YEAST [facility] (03/23/2018 4:40 PM PDT) + + + [...] | + + + + + | 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 | + + | Obesity, unspecified classification, unspecified obesity type, unspecified whether | | serious comorbidity present | + + | Anemia, unspecified type | + + | 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, 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 | + + | Osteomyelitis, unspecified site, unspecified type (HCC) | + + | Thrombocytopenia (HCC) Thrombocytopenia, unspecified | + + | Encounter for long-term (current) use of antibiotics | + + documented in this encounter [...] | | +---+---+ + +-------+ +-----+---+---+ | ceFEPIme (MAXIPIME) injection 2 | Given | 03/29/20 | 2 g | | | | g 2 g, intravenous, EVERY 8 | | 18 3:28 | | | | | HOURS, First dose on 03/23/18 | | PM PDT | | | | | at 1515, Until Discontinued | | | | | | + +-------+ +-----+---+---+ +-------+ +-----+---+---+ | Given | 03/29/20 | 2 g | | | | | 18 7:03 | | | | | | AM PDT | | | | +-------+ +-----+---+---+ | Given | 03/28/20 | 2 g | | | | | 18 11:33 | | | | | | PM PDT | | | | +-------+ +-----+---+---+ +---+---+ | | | +---+---+ + +-------+ +-------+---+---+ | citalopram (CELEXA) tablet 40 | Given | 03/23/20 | 40 mg | | | | mg 40 mg, oral, DAILY, First | | 18 4:55 | | | | | dose on 03/23/18 at 1600, | | PM PDT | | | [...] First dose on 03/23/18 at | | PM PDT | | [...] | +---+---+ + +---------+ + +---+---+ | dextrose 5 % IV 1,000 mL, | New Bag | 03/28/20 | 1,000 mL | | | | intravenous, ONCE, 1 dose, Fri | | 18 12:57 | | | | | 03/28/18 at 1230 | | PM PDT | | | | + +---------+ + +---+---+ +---+---+ | | | +---+---+ + +---------+ + +---+---+ | dextrose 5 % IV 1,000 mL, | New Bag | 03/29/20 | 1,000 mL | | | | intravenous, ONCE, 1 dose, Sat | | 18 2:10 | | | | | 03/29/18 at 1330 | | PM PDT | | | | + +---------+ + +---+---+ +---+---+ | | | +---+---+ + +-------+ +-------+---+---+ | diphenhydrAMINE (BENADRYL) | Given | 03/25/20 | 25 mg | | | | capsule 25 mg 25 mg, oral, ONCE, | | 18 10:53 | | | | | 1 dose, Adilson 03/25/18 at 1115 | | AM PDT | | | [...] | + +---+ | | | | [id number] | | | (SPECIAL MOUTHWASH) suspension | | | (compound) 5 mL 5 mL, oral, FOUR | | | TIMES DAILY NEEDED, Starting | | | 03/23/18 at 1435, Until Tue | | | 04/01/18 at 2201, oral pain/ulcers | | + +---+ | | | + +---+ + +-------+ +-------+---+---------+ | enoxaparin (LOVENOX) injection | Given | 03/25/20 | 40 mg | | Abdomen | | 40 mg 40 mg, subcutaneous, ONCE, | | 18 9:00 | | | | | 1 dose, 03/25/18 at 2100 | | PM PDT | | | | + +-------+ +-------+---+---------+ +---+---+ | | | +---+---+ + +-------+ +-------+---+---------+ | enoxaparin (LOVENOX) injection | Given | 03/30/20 | 40 mg | | Abdomen | | 40 mg 40 mg, subcutaneous, EVERY | | 18 9:08 | | | | | 12 HOURS, First dose on Sat | | PM PDT | | | | | 03/28/18 at 2100, Until | | | | | | | Discontinued | | | | | | + +-------+ +-------+---+---------+ +-------+ +-------+---+---------+ | Given | 03/30/20 | 40 mg | | Abdomen | | | 18 10:32 | | | | | | AM PDT | | | | +-------+ +-------+---+---------+ | Given | 03/29/20 | 40 mg | | Abdomen | | | 18 8:22 | | | | | | PM PDT | | | | +-------+ +-------+---+---------+ +---+---+ | | | +---+---+ + +-------+ [...] (SUBLIMAZE) injection | Given | 03/24/20 | 50 mcg | | | | 50 mcg 50 mcg, intravenous, | | 18 1:33 | | | | | POSTPROCEDURE PRN, 4 doses, | | PM PDT | | | | | Starting Sat03/24/18 at 1154, | | | | | | | Until Sat03/24/18 at 1508, severe | | | | | | | pain while in Phase I Recovery | | | | | | + +-------+ +--------+---+---+ +-------+ +--------+---+---+ | Given | 03/24/20 | 50 mcg | | | | | 18 1:21 | | | | | | PM PDT | | | | +-------+ +--------+---+---+ +---+---+ | | | +---+---+ + +-------+ +--------+---+---+ | fentaNYL (SUBLIMAZE) injection | Given | 03/27/20 | 50 mcg | | | | 50 mcg 50 mcg, intravenous, | | 18 1:11 | | | | | POSTPROCEDURE PRN, 4 doses, | | PM PDT | | | | | Starting Bettie 03/27/18 at 1027, | | | | | | | Until Bettie 03/27/18 at 1425, severe | | | | | | | pain while in Phase I Recovery | | | | | | + +-------+ +--------+---+---+ +-------+ +--------+---+---+ | Given | 03/27/20 | 50 mcg | | | | | 18 12:28 | | | | | | PM PDT | | | | +-------+ +--------+---+---+ + +---+ | | | + +---+ | fentaNYL (SUBLIMAZE) injection | | | 1 dose, Starting Bettie 03/27/18 at | | | 1218, Until Bettie 03/27/18 at 1228 | | + +---+ | | | + +---+ + +-------+ + +---+---+ | heparin 10 [...] +-------+ +-------+---+---+ | hydroCHLOROthiazide | Given | 03/23/20 | 25 mg | | | | (HYDRODIURIL) tablet 25 mg 25 | | 18 4:58 | | | | | mg, oral, DAILY, First dose on | | PM PDT | | | | | 03/23/18 at 1600, Until | | | | | | | Discontinued | | | | | | + +-------+ +-------+---+---+ +---+---+ | | | +---+---+ + +-------+ +--------+---+---+ | HYDROmorphone (DILAUDID) | Given | 03/24/20 | 0.2 mg | | | | injection 0.2-0.5 mg 0.2-0.5 mg, | | 18 2:04 | | | | | intravenous, POSTPROCEDURE PRN, | | PM PDT | | | | | Starting Sat03/24/18 at 1154, | | | | | | | Until Sat03/24/18 at 1508, | | | | | | | moderate pain while in Phase I | | | | | | | Recovery | | | | | | + +-------+ +--------+---+---+ +---+---+ | | | +---+---+ + +-------+ +--------+---+---+ | HYDROmorphone (DILAUDID) | Given | 03/29/20 | 0.5 mg | | | | injection 0.2-0.5 mg 0.2-0.5 mg, | | 18 3:28 | | | | | intravenous, EVERY 4 HOURS | | PM PDT | | | | | NEEDED, Starting Sat03/24/18 at | | | | | | | 1544, Until [place] 03/30/18 at 0852, | | | | | | | severe pain | | | | | | + +-------+ +--------+---+---+ +-------+ +--------+---+---+ | Given | 03/28/20 | 0.5 mg | | | | | 18 5:58 | | | | | | PM PDT | | | | +-------+ +--------+---+---+ | Given | 03/28/20 | 0.5 mg | | | | | 18 2:14 | | | | | | PM PDT | | | | +-------+ +--------+---+---+ +---+---+ | | | +---+---+ + +-------+ +--------+---+---+ | HYDROmorphone (DILAUDID) | Given | 03/23/20 | 0.5 mg | | | | injection 0.5 mg 0.5 mg, | | 18 2:14 | | | | | intravenous, ONCE, 1 dose, Sun | | PM PDT | | | | | 03/23/18 at 1430 | | | | | | + +-------+ +--------+---+---+ + +---+ | | | + +---+ | HYDROmorphone (DILAUDID) | | | injection 1 dose, Starting Mon | | | 03/24/18 at 1401, Until Mon | | | 03/24/18 at 1404 | | + +---+ | | | + +---+ + +---------+ +--------+---+---+ | iohexol (OMNIPAQUE) 350 mg | IV Push | 03/31/20 | 100 mL | | | | iodine/mL injection 100 mL 100 | | 18 4:56 | | | | | mL, intravenous, ONCE, 1 dose, | | PM PDT | | | | | 03/31/18 at 1745 | | | | | | + +---------+ +--------+---+---+ +---+---+ | | | +---+---+ + +---------+ + +---+---+ | lactated Ringers IV 1,000 mL, | New Bag | 03/23/20 | 1,000 mL | | | | intravenous, ONCE, 1 dose, Sun | | 18 6:52 | | | | | 03/23/18 at 1815 | | PM PDT | | | | + +---------+ + +---+---+ +---+---+ | | | +---+---+ + + + +-------+-------+---+ | lactated Ringers IV 100 mL/hr, | Restarte | 03/27/20 | 100 | 100 | | | intravenous, CONTINUOUS, | d | 18 1:09 | mL/hr | mL/hr | | | Starting Bettie 03/27/18 at 0000, | | PM PDT | | | | | Until Bettie 03/27/18 at 1454 | | | | | | + + + +-------+-------+---+ +---------+ +-------+-------+---+ | New Bag | 03/27/20 | 100 | 100 | | | | 18 2:06 | mL/hr | mL/hr | | | | AM PDT | | | | +---------+ +-------+-------+---+ [...] LORazepam (ATIVAN) tablet 0.5 | Given | 03/25/20 | 0.5 mg | | | | mg 0.5 mg, oral, ONCE, 1 dose, | | 18 8:58 | | | | | 03/25/18 at 2115 | | PM PDT | [...] +---+---+---+ +---+---+ | | | +---+---+ + +---------+ +---+-------+---+ | NaCl 0.45%-KCl 20 mEq/L (09/03 | New Bag | 03/27/20 | | 250 | | | NS-20 KCl) IV infusion | | 18 3:57 | | mL/hr | | | intravenous, CONTINUOUS, Starting | | PM PDT | | | | | Bettie 03/27/18 at 1515, Until Bettie | | | | | | | 03/27/18 at 1914 | | | | | | + +---------+ +---+-------+---+ +---+---+ | | | +---+---+ + +-------+ +--------+---+---+ | naproxen (NAPROSYN) tablet 500 | Given | 03/31/20 | 500 mg | | | | mg 500 mg, oral, TWICE DAILY, | | 18 9:17 | | | | | First dose on 03/30/18 at | | AM PDT | | | | | 1045, Until Discontinued | | | | | | + +-------+ +--------+---+---+ +-------+ +--------+---+---+ | Given | 03/30/20 | 500 mg | | | | | 18 9:08 | | | | | | PM PDT | | | | +-------+ +--------+---+---+ | Given | 03/30/20 | 500 mg | | | | | 18 10:58 | | | | | | AM [...] | | +---+---+ + +-------+ +------+---+---+ | oxyCODONE (immediate release) | Given | 03/24/20 | 5 mg | | | | (ROXICODONE) tablet 5-15 mg 5-15 | | 18 3:29 | | | | | mg, oral, EVERY 3 HOURS | | PM PDT | | | | | NEEDED, Starting 03/23/18 at | | | | | | | 1417, Until 03/24/18 at 1544, | | | | | | | moderate pain | | | | | | + +-------+ +------+---+---+ +-------+ +-------+---+---+ | Given | 03/24/20 | 10 mg | | | | | 18 2:19 | | | | | | PM PDT | | | | +-------+ +-------+---+---+ | Given | 03/24/20 | 10 mg | | | | | 18 8:04 | | | | | | AM PDT | | | | +-------+ +-------+---+---+ +---+---+ | | | +---+---+ + +-------+ +-------+---+---+ | oxyCODONE (immediate release) | Given | 03/27/20 | 10 mg | | | | (ROXICODONE) tablet 5-15 mg 5-15 | | 18 4:16 | | | | | mg, oral, EVERY 4 HOURS | | AM PDT | | | | | NEEDED, Starting Sat03/24/18 at | | | | | | | 1545, Until Sat03/27/18 at 1454, | | | | | | | moderate pain | | | | | | + +-------+ +-------+---+---+ +-------+ +-------+---+---+ | Given | 03/26/20 | 10 mg | | | | | 18 11:43 | | | | | | PM PDT | | | | +-------+ +-------+---+---+ | Given | 03/26/20 | 10 mg | | | | | 18 6:36 | | | | | | PM [...] | | | | | NEEDED, Starting Sat03/27/18 at | | | | | | [...] +---+---+ | | | +---+---+ + +---------+ +---------+---+---+ | piperacillin-tazobactam (ZOSYN) | New Bag | 03/31/20 | 3.375 g | | | | IV (minibag+) 3.375 g 3.375 g, | | 18 6:17 | | | | | intravenous, EVERY 6 HOURS, First | | AM PDT | | | | | dose on 03/30/18 at 0000, | | | | | | | Until Discontinued | | | | | | + +---------+ +---------+---+---+ +---------+ +---------+---+---+ | New Bag | 03/31/20 | 3.375 g | | | | | 18 12:20 | | | | | | AM PDT | | | | +---------+ +---------+---+---+ | New Bag | 03/30/20 | 3.375 g | | | | | 18 6:17 | | | | | | PM PDT | | | | +---------+ +---------+---+---+ +---+---+ | | | +---+---+ + +---------+ +-------+---+---+ | piperacillin-tazobactam (ZOSYN) | New Bag | 03/29/20 | 4.5 g | | | | IV (minibag+) 4.5 g 4.5 g, | | 18 6:35 | | | | | intravenous, ONCE, 1 dose, Sat | | PM PDT | | | | | 03/29/18 at 1800 | | | | | | + +---------+ +-------+---+---+ +---+---+ | | | +---+---+ [...] | | +---+---+ + +-------+ +--------+---+---+ | potassium chloride SR (K-DUR) | Given | 03/28/20 | 20 mEq | | | | tablet 20 mEq 20 mEq, oral, | | 18 9:56 | | | | | TWICE DAILY, 2 doses, First dose | | PM PDT | | | | | on Sat03/28/18 at 1345, Last dose | | | | | | | on Sat03/28/18 at 2100 | | | | | | + +-------+ +--------+---+---+ +-------+ +--------+---+---+ | Given | 03/28/20 | 20 mEq | | | | | 18 12:22 [...] 0.2 % in NaCl | Rate/Dos | 03/31/20 | | 0 mL/hr | | | 0.9 % (NS) peripheral nerve block | e Verify | 18 1:48 | | | | | (CADD PUMP) injection, | | AM PDT | | | | | CONTINUOUS, Starting Bettie 03/27/18 | | | | | | | at 1230, Until Sat03/31/18 at | | | | | | | 0927 | | | | | | + + + +---+---------+---+ + + +---+---------+---+ | Rate/Dose Change | 03/30/20 | | 0 mL/hr | | | | 18 9:46 | | | | | | PM PDT | | | | + + +---+---------+---+ | Rate/Dose Verify | 03/30/20 | | 2 mL/hr | | | | 18 9:28 | | | | | | PM [...] +---------+---+---+ +---+---+ | | | +---+---+ + +---------+ + +-------+---+ | vancomycin (VANCOCIN) IV 1,250 | New Bag | 03/24/20 | 1,250 mg | 131 | | | mg 1,250 mg, intravenous, EVERY | | 18 5:31 | | mL/hr | | | 8 HOURS, First dose on Sun | | PM PDT | | | | | 03/23/18 at 1645, Until | | | | | | | Discontinued | | | | | | + +---------+ + +-------+---+ +---------+ + +---+---+ | New Bag | 03/24/20 | 1,250 mg | | | | | 18 8:41 | | | | | | AM PDT | | | | +---------+ + +---+---+ | New Bag | 03/24/20 | 1,250 mg | | | | | 18 12:22 | | | | | | AM PDT | | | | +---------+ + +---+---+ +---+---+ | | | +---+---+ + +---------+ + +---+---+ | vancomycin (VANCOCIN) IV 1,250 | New Bag | 03/29/20 | 1,250 mg | | | | mg 1,250 mg, intravenous, EVERY | | 18 7:47 | | | | | 8 HOURS, First dose on Wed | | AM PDT | | | | | 7/25/18 at 1200, Until | | | | | | | Discontinued | | | | | | + +---------+ + +---+---+ +---------+ + +-------+---+ | New Bag | 03/28/20 | 1,250 mg | | | | | 18 11:42 | | | | | | PM PDT | | | | +---------+ + +-------+---+ | New Bag | 03/28/20 | 1,250 mg | 131 | | | | 18 4:03 | | mL/hr | | | | PM PDT | | | | +---------+ + +-------+---+ +---+---+ | | | +---+---+ + +---------+ + +---+---+ | vancomycin (VANCOCIN) IV 1,500 | New Bag | 03/26/20 | 1,500 mg | | | | mg 1,500 mg, intravenous, EVERY | | 18 1:30 | | | | | 8 HOURS, First dose on Sat | | AM PDT | | | | | 03/25/18 at 0200, Until | | | | | | | Discontinued | | | | | | + +---------+ + +---+---+ +---------+ + +---+---+ | New Bag | 03/25/20 | 1,500 mg | | | | | 18 5:49 | | | | | | PM PDT | | | | +---------+ + +---+---+ | New Bag | 03/25/20 | 1,500 mg | | | | | 18 10:33 | | | | | | AM PDT | | | | +---------+ + +---+---+ +---+---+ | | | +---+---+ + +---------+ + +---+---+ | vancomycin (VANCOCIN) IV 1,500 | New Bag | 03/29/20 | 1,500 mg | | | | mg 1,500 mg, intravenous, EVERY | | 18 11:58 | | | | | 12 HOURS, First dose on Sat | | AM PDT | | | | | 03/29/18 at 1200, Until | | | | | | | Discontinued | | | | | | + +---------+ + +---+---+ +---+---+ | | | +---+---+ documented in this encounter
--- OUTSIDE RECORDS SUMMARY | ~2019-01-30 | XMS | Encounter Summary ---
Demographics + + + | Address | [address] | | | [place] [address] | + + + | Home Phone [...] Author + + + | Author | [facility] | + + + | Organization | [facility] | + + + | Address | Unknown | + + + | Phone | Unavailable | + + + Support + + +---------+ + | Name | Relationship | Address | Phone | + + +---------+ + | Kika Cage | ECON | Unknown | | + + +---------+ + Care Team Providers + +------+ + | [employer] Operator Name | Role | Phone | + +------+ + | Santo Gooden MD | PCP | | + +------+ + Reason for Visit +---------+ + | Reason | Comments | +---------+ + | Fall | | +---------+ + | Post Op | | +---------+ + Encounter Details +--------+ + + + + | Date | Type | Department | Care Team | Description | +--------+ + + + + | 12/19/ | Telephone | Orthopaedics at | Palomo Pena MD | Fall; Post Op | | 2019 | | [facility] [address] | [address] | | | | | [place] Mailcode: [id number] | Sarahy Conner [place], | | | | | [facility] | [place] [address] | | | | | and | [phone] | | | | | Floor [place], [place] | | | | | | [address] | | | | | | [phone] | | | +--------+ + + + [...] [address] | | | | | | [place], [place] | | | | | | [address] | | | | | | [phone] | | | | | | | | +--------+ + + + + | 03/25/ | Office | Orthopedics | Rosy BasurtoAlexander, | | | 2018 | Visit | | [address] | | | | | | [address] | | | | | | [facility] [place] | | | | | | [address] | | | | | | [phone] | | | | | | | | +--------+ + + + + | 03/25/ | Office | Hematology & | Sandra Patel MD | | | 2018 | Visit | Oncology | [address] | | | | | | [place], [place] | | | | | | [address] | | | | | | [phone] | | | | | | | | +--------+ + + + + documented as of this encounter Visit Diagnoses Not on filedocumented in this encounter"
--- OUTSIDE RECORDS SUMMARY | ~2019-01-30 | XMS | Encounter Summary ---
Demographics + + + | Address | [address] | | | [place] [address] | + + + | Home Phone [...] Providers + +------+ + | Care [address] Magistrate Name | Role | Phone | + [...] BKA STUMP | | 2017 | | [facility] | MD [address] | | | | | Admitting Desk | [place], [place] | | | | | Located on the | [address] | | | | | floor [address] [facility] | [phone] | | | | | [facility] | | | | | | [place], [place] | | | | | | [address] | | | +--------+---------+ + + + [...] Internal Medicine Service Discharge Summary PCP: Santo Gooedn MD Author: GREG DEL ROSARIO MD Discharging [...] (including CT abdomen, pelvis, legs). [facility] her hemoglobin had improved and her repeat [...] CBC and reticulocyte count on 04/04/18 a [facility]. Appointments: Future Appointments Provider Department Dept Phone Center 04/09/2018 2:00 PM Hem Starter Nurse Hematology/Medical Oncology at [facility] [phone] HemOnc 04/09/2018 3:10 PM Sanrda Patel Hematology/Medical Oncology at [place] [address] [phone] [place] 04/09/2018 3:40 PM Lynda Basurto [facility] Orthopaedics & Rehabilitation [phone] [place] Discharge condition: Fair Discharge destination (If [...] anxiety (1st line nausea/vomiting). Miscellaneous Medical Supply [facility] Commonly known as: Miscellaneous Medical Supply Bedside [...] 25 mg Tab Commonly known as: HYDRODIURIL Knyyipmjt-Vfcjrlbfw-Jb-Mag-Sim [id number] mg/30 mL Mwsh Commonly known as: FIRST-MOUTHWASH [...] room air Abdominal: nontender, non-distended, obese Skin: Asher, warm, well-perfused, no ecchymoses Extremities: LLE kjjez-sib-vpeu amputation site dressed in compression wrap. Drain [...] MD I spent more than 36 minutes jqjj-tq-kfjn with the patient of which greater than 50% was sp ent counseling the patient coordinating care. documented in th is encounter Discharge Instructions Instructions Rashida Thompson RN - 04/01/2018In order to receive services for line care and l ab work at [facility] Out Patient Infusion/Day Surgery: you will first need to be seen by an MD (with priv[facility]idg[facility]ennifer [facility]). Please go in to [facility] to see an MD prior to your Saturday04/04/2018 [facility] for your lab [...] Orthopaedic Attending: Tati Cage 1985 32 y.o. [id number] 04/01/2018 03/23/2018 9 Macie Torre MD Diagnosis(es): [...] to make a follow up appointment in [facility] 2 weeks with ORTHO ONCOLOGY, Odalys Tobin - (Adela) Junaid Burrell MD Orthopaedic Surgery, R3 [id number] 03/31/2018 Cesia Vee NP - 04/01/2018 12:14 PM PDT Orthopaedic Surgery Progress Note Patient: /Age: MRN: CSN: Date: Admission Date: Hospital Day: Orthopaedic Attending: Tati Cage 1985 32 y.o. [id number] 04/01/2018 03/23/2018 9 Macie Torre MD Diagnosis(es): [...] infection or alberto inage. Cesia Foster NP [facility] [address] [place] [address] Lynda Ravi MD - 04/01/2018 11:49 AM [...] consulted, see above plan # Pancytopenia # Imues-dd-xvlqmly anemia Pt's WBC and platelets have recovered, [...] ology workup. Dawit Amaya, MS4 [facility] [id number] Associated attestation - Greg Del Rosario MD [...] with our plans. Greg Del Rosario MD Roving Department Supervisor Division of Hospital Medicine Teaching Attending I spent 37 minutes in the care of this patient, >50% engaged in bedside counseling or coord ination of care with orthopedics, anesthesia pain service.Bela Holt MD - 018 9:28 AM PDTPt weaned off PNB. Catheter pulled. Tip intact. Coag status normal prior to removal of catheter. APS will sign-off. Please pg APS [phone] with questions/concerns. Bela Holt MD APS # [id number] Lynda Ravi MD - 03/31/2018 9:14 AM [...] Orthopaedic Attending: Tati Cage 1985 32 y.o. [id number] 03/31/2018 03/23/2018 8 Macie Torre MD Diagnosis(es): [...] recs: zosyn x 6 weeks through [facility]'s existing port. Care Protocol Items: 1. [...] to make a follow up appointment in [facility] 2 weeks with ORTHO ONCOLOGY, Odalys Justen - (Sb and Jorge L) Junaid Burrell MD Orthopaedic Surgery, R3 [id number] 03/31/2018 Cesia Fay M D - 03/30/2018 4:51 PM PDTAPS Clarification Note; Tonight the continuous rate on the nerve block will be to 0 ml/hr and bolus only will be in place. Catheter will be pulled Saturday morning. Cesia Gaitan MD [facility] [address]K [address] [facility], 4th Floor Mail Code: CH4P [place], [place] [address] oover, MD Rafael - 03/30/2018 4:35 PM [...] on 03/17/18. - Pt beingfollowed by onc [facility], appreciate recs. Dr. Sandra Patel is her primary oncologist and she will have follow up on 04/09 to discuss cycle 3 planning. # mild LE edema Suspect due to IVF. - compression stocking to RLE. - will consider lasix # Pancytopenia # Iprzs-ce-eximxck anemia Likely hypoproliferationin setting of recentsystemic chemotherapy and acute inflammatio n. Will continue to monitor and transfuse as needed, goal >7. - She has received a total of 5 units of pRBCs at [facility] and 1 unit previously at OSH. - [...] Rafael Shell PGY-2 Internal Medicine Pager # [phone] Associated attestation - Greg Del Rosario MD [...] with our plans. Greg Del Rosario MD Roving Department Supervisor Division of Hospital Medicine Teaching Attending I [...] 25 mg 25 mg oral Q6H PRN auqaukioeaOJDUV-btzkidizk-GWLIWB (SPECIAL MOUTHWASH) suspension (compound) 5 mL 5 [...] 25 mg 25 mg oral Q6H PRN vagauiargaTZFHY-gswlksxjz-QCJUSA (SPECIAL MOUTHWASH) suspension (compound) 5 mL 5 [...] Orthopaedic Attending: Tati Cage 1985 32 y.o. [id number] 03/30/2018 03/23/2018 7 Macie Torre MD Diagnosis(es): [...] ID recs: zosyn x 6 weeks through [facility] ent's existing port. Will be tapering nerve [...] to make a follow up appointment in [facility] 2 weeks with ORTHO ONCOLOGY, Odalys OconnorJusten - (Sb and Jorge L) Adam Jean MD Pager: [phone] Dawit Gilliam - 4:46 PM PDT General [...] on 03/17/18. - Pt beingfollowed by onc [facility], appreciate recs. Dr. Sandra Patel is her primary oncologist . Oncology team communicating with Dr. Patel. - Coordinating with onc and ortho regarding plan for timing of cycle 3 of chemotherapy, whi ch will need to be delayed to allow for healing after infection. # Pancytopenia # Ypdrb-hw-lmhbnmi anemia Likely hypoproliferationin setting of recentsystemic chemotherapy and acute inflammatio n. Will continue to monitor and transfuse as needed, goal >7. - Hg 6.8 this morning --> pRBC x1 today - She has received a total of 5 units of pRBCs at [facility] and 1 unit previously at OSH. - [...] inpatient care Dawit Amaya, MS4 [facility] Pager [phone] signed by Greg Del Rosario MD at [...] with our plans. Greg Del Rosario MD Roving Department Supervisor Division of Hospital Medicine Teaching Attending I [...] Orthopaedic Attending: Tati Cage 1985 32 y.o. [id number] 03/29/2018 03/23/2018 6 Macie Torre MD Diagnosis(es): [...] to make a follow up appointment in [facility] 2 weeks with ORTHO ONCOLOGY, Odalys Clarktiste - (Sb and Jorge L) Adam Jean MD Pager: [phone] awit Amaya - 1:33 PM PDT General [...] in 4/5. Pathology Report from 03/24/18 left xtvio-zjn-grev amputation site debridement: "A. Soft tissue, left [...] on 03/17/18. - Pt beingfollowed by onc [facility], appreciate recs. Dr. Sandra Patel is her primary oncologist . Oncology team will communicate with Dr. Patel. - Coordinating with onc and ortho regarding plan for timing of cycle 3 of chemotherapy, whi ch will need to be delayed to allow for healing after infection. # Pancytopenia # Teucf-yv-bdyheth anemia Likely hypoproliferationin setting of recentsystemic chemotherapy and acute inflammatio n. Will continue to monitor and transfuse as needed, goal >7. - Hg 9.2 this morning. - She has received at total of 4 units of pRBCs at [facility] and 1 unit previously at OSH. - [...] inpatient care Dawit Amaya, MS4 [facility] [place] Pager [phone] signed by Greg Del Rosario MD at [...] with our plans. Greg Del Rosario MD Roving Department Supervisor Division of [facility] Medicine Teaching Attending I spent 35 [...] Orthopaedic Attending: Tati Cage 1985 32 y.o. [id number] 03/28/2018 03/23/2018 5 Macie Torre MD Diagnosis(es): [...] to make a follow up appointment in [facility] 2 weeks with ORTHO ONCOLOGY, Odalys Tobin [...] edge. 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 No kids. Lives with her mother Kika. [...] by primary care team. Madiha Rebollar DNP, SPIRAL RUNNER-C [facility] [address] [place] [address] Lynda Ravi MD - 03/28/2018 8:06 AM [...] Ricardo Morales MD/PhD Anesthesiology CA-2 APS pager [phone] signed by Arnold Street MD at 03/28/2018 [...] neutropenia after c hemotherapy. # Pancytopenia # Mhjvb-ts-vwzlypy anemia Likely hypoproliferation in setting of recentsystemic chemotherapy and acute inflammation . Will continue to monitor and transfuse as needed, goal >7. - Hg 8.0 this morning prior to procedure today, 7.4 after. EBL of 200 mL during procedure. - She has received at total of 4 units of pRBCs at [facility] and 1 unit previously at OSH. - [...] inpatient care Dawit Amaya, MS4 [facility] Pager [phone] signed by Greg Del Rosario MD at [...] with our plans. Greg Del Rosario MD Roving Department Supervisor Division of Hospital Medicine Teaching Attending I [...] units of pRBCs have been given at [facility], with 1 unit given at OSH. Current [...] returning to the [place]. # Pancytopenia # Ccfjb-vz-oqhdtpz anemia Likely hypoproliferation in setting of recentsystemic chemotherapy and acute inflammation . No evidence of acute blood loss or hemolysis. Drainage from wound vac has been minimal. Wi ll continue to monitor and transfuse as needed, goal >7. - Hg improved to 9.2 today after an additional unit of pRBCs this morning. She has received at total of 4 units of pRBCs at [facility] and 1 unit previously at OSH. - [...] 03/17/18. - Pt being followed by onc [facility], appreciate recs. Dr. Sandra Patel is her [...] inpatient care Dawit Amaya, MS4 [facility] Pager [phone] signed by Greg Del Rosario MD at [...] with our plans. Greg Del Rosario MD Roving Department Supervisor Division of Hospital Medicine Teaching Attending I [...] Orthopaedic Attending: Tati Cage 1985 32 y.o. [id number] 03/26/2018 03/23/2018 3 Macie Torre MD Diagnosis(es): [...] to make a follow up appointment in [facility] 2 weeks with ORTHO ONCOLOGY, Odalys Tobin [...] edge. Junaid Burrell MD Orthopaedic Surgery, R3 [id number] 03/26/2018 Greg Dean MD - 03/25/2018 9:59 [...] with our plans. Greg Del Rosario MD Roving Department Supervisor Division of Hospital Medicine Teaching Attending I [...] Orthopaedic Attending: Tati Cage 1985 32 y.o. [id number] 03/25/2018 03/23/2018 2 Macie Torre MD Diagnosis(es): [...] to make a follow up appointment in [facility] 2 weeks with ORTHO ONCOLOGY, Odalys Tobin [...] knee. Reflexes: not performed Sorin Aguirre MD [facility] Department of Orthopaedics & Rehabilitation [address] [place] [address]: [address]31 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 Remainder of plan per her some paid intern note attached. Yves Cornejo MD (Logan) [...] Events: - Irrigation and debridement of left zxtih-vfq-mfot amputation stump followed by wound vac placement, [...] inpatient care Dawit Amaya, MS4 [facility] Pager [phone] signed by Greg Del Rosario MD at [...] TSERING DUMONT MD,MPH PGY-5 Orthopaedic Surgery Pager: [phone] Deann Andrew MD - 03/24/2018 2:00 AM [...] Federico Simpson MD Orthopedic Surgery, R2 Pager [phone] documented in this encounter Plan of Treatment [...] [place] | | | | | | [address] | | | | | | [phone] | | | | | | | | +--------+ + + + + | 03/25/ | Office | Orthopedics | Lynda Basurto, | | | 2018 | Visit | | [address] | | | | | | [address] | | | | | | [place], [place] | | | | | | [address] | | | | | | [phone] | | | | | | | | +--------+ + + + + | 03/25/ | Office | Hematology & | Sandra Patel MD | | | 2018 | Visit | Oncology | [address] | | | | | | [place], [place] | | | | | | [address] | | | | | | [phone] | | | | | | | [...] CHG), | e | 12:06 PM | ([facility]) | procedure are in the | | [...] | | | LABORATORY | | | [facility] | | | SERVICES, | | | [...] | + + + + + | [employer] | [address] | [place] [address] | | | SERVICESANTONI | [address] [...] [facility] | [address] | [place] [address] | | | SERVICES, CORE | PARK [...] [facility] | [address] | [place] [address] | | | SERVICES, CORE | PARK [...] | + + + + + | [facility] | [address] | [place] [address] | | | SERVICES, ANTONI | PARK [...] | + + + + + | [facility] | [address] | [place] [address] | | | SERVICES, CORE | [address] | | | + + + + + CT LOWER EXTREMITY BILATERAL W CONTRAST (03/31/2018 5:09 PM PDT) + + | Specimen | + + | | + + + + + | Narrative | Performed At | + + + | EXAM: CT EXT LWR BILAT W CONTRAST HISTORY: 52-year-old female | [facility] | | with history of left foot [...] administered. FINDINGS: The patient has a left ksjbv-oez-cvlg | | | amputation. A surgical drain [...] administered. FINDINGS: The patient has a left prlnb-ocv-xtsz amputation. A surgical | | drain is [...] [facility] | [address] | [place] [address] | | | SERVICES, CORE | PARK [...] | + + + + + | [facility] | [address] | [place] [address] | | | SERVICES, | [address] [...] | | | LABORATORY | | | [facility] | | | SERVICES, | | | [...] | + + + + + | [facility] | [address] | [place] [address] | | | SERVICES, CORE | PARK [...] [facility] | [address] | [place] [address] | | | SERVICES, CORE | PARK [...] | + + + + + | [facility] | [address] | [place] [address] | | | SERVICES, | [address] [...] | + + + + + | [facility] | [address] | [place] [address] | | | SERVICES, CORE | PARK [...] [facility] | [address] | [place] [address] | | | SERVICES, CORE | PARK [...] + + + + | PRODUCT | [id number] | | [facility] | | | UNIT [...] + + + + | EXPIRATION | [id number] | | [facility] | | | DATE [...] + + + + | BLOOD | [id number] | | [facility] | | | PRODUCT [...] LABORATORY | [address] | [place] [address] | | | SERVICES, | [address] [...] + + + + | PRODUCT | [id number] | | [facility] | | | UNIT [...] + + + + | EXPIRATION | [id number] | | [facility] | | | DATE [...] + + + + | BLOOD | [id number] | | [facility] | | | PRODUCT [...] [facility] | [address] | [place] [address] | | | SERVICES, | [address] [...] + + + + | PRODUCT | [id number] | | [facility] | | | UNIT [...] + + + + | EXPIRATION | [id number] | | [facility] | | | DATE [...] + + + + | BLOOD | [id number] | | [facility] | | | PRODUCT [...] | + + + + + | [facility] | [address] | [place] [address] | | | SERVICES, | [address] [...] | + + + + + | [facility] | [address] | [place] [address] | | | ANTONI ANGUIANO | PARK [...] | + + + + + | [facility] | [address] | [place] [address] | | | SERVICES, CORE | PARK [...] | + + + + + | [facility] | [address] | [place] [address] | | | ANTONI ANGUIANO | [address] [...] | | | LABORATORY | | | [facility] | | | SERVICES, | | | [...] | + + + + + | [facility] | [address] | [place] [address] | | | SERVICES, CORE | [address] [...] | + + + + + | [facility] | [address] | [place] [address] | | | SERVICES, CORE | [address] [...] (H) | 70 - 99 mg/dL | [facility] - | | | GLUCOSE, | | [...] [facility] | [address] | [place], [place] | | | DEVON POINT OF CARE | [address] | [address] | | | TESTS | | | [...] [facility] | [address] | [place] [address] | | | SERVICES, CORE | PARK [...] | | | LABORATORY | | | T[facility]EN | | | SERVICES, | | | [...] | + + + + + | [facility] | [address] | [place] [address] | | | SERVICES, ANTONI | [address] [...] | + + + + + | [facility] | [address] | [place] [address] | | | SERVICES, CORE | [address] [...] | + + + + + | [facility] | [address] | [place] [address] | | | SERVICES, | [address] [...] [facility] | [address] | [place] [address] | | | SERVICES, | [address] [...] + + + + | PRODUCT | [id number] | | [facility] | | | UNIT [...] + + + + | EXPIRATION | [id number] | | [facility] | | | DATE [...] + + + + | BLOOD | [id number] | | [facility] | | | PRODUCT [...] | + + + + + | [facility] | [address] | [place] [address] | | | SERVICES, | [address] [...] 87 | 70 - 99 mg/dL | [facility] - | | | GLUCOSE, | | [...] [facility] | [address] | [place], [place] | | | MIN[facility]IE [facility] | [address] | [address] | | | TESTS | | | [...] | + + + + + | [facility] | [address] | [place] [address] | | | ANTONI ANGUIANO | [address] [...] | | | LABORATORY | | | T[facility] | | | SERVICES, | | | [...] | + + + + + | [facility] | [address] | [place] [address] | | | SERVICES, ANTONI | [address] [...] | + + + + + | [facility] | [address] | [place] [address] | | | SERVICES, CORE | PARK [...] [facility] | [address] | [place] [address] | | | SERVICES, CORE | PARK [...] | + + + + + | [facility] | [address] | [place] [address] | | | SERVICES, [facility] | [address] | | | + [...] | | | LABORATORY | | | T[facility]EN | | | SERVICES, | | | [...] | + + + + + | [facility] | [address] | [place] [address] | | | ANTONI ANGUIANO | [address] [...] | + + + + + | [facility] | [address] | [place] [address] | | | SERVICES, [facility] | [address] | | | + + + + + OPERATION RECORD (03/27/2018 12:10 PM PDT) + + | Procedure Note | + + | Lynda Basurto MD - 03/27/2018 12:10 PM PDT Date of Service: 03/27/2018 | | Attending Surgeon: Lynda Basurto MD Clinical Research Scientist(s): Odalys | | R Elvin Tobin PA-C. Please note no other qualified senior underwriting assistant was available. | | Preoperative Diagnosis: [...] 03/27/2018 | | 11:18:37DT: 03/27/2018 12:10:06Job #: [id number] | + + CAPILLARY BLOOD GLUCOSE (NO [...] [facility] | [address] | [place], [place] | | | DEVON POINT OF CARE | [address] | [address] | | | TESTS | | | [...] | + + + + + | [facility] | [address] | [place], [place] | | | [facility] | [address] | [address] | | | TESTS | | | [...] - | | | | | | [place] | | + + + + + [...] Gram Stain: No squamous epithelial cells | [place] | | Rare polymorphonuclear cells No organisms seen | | + + + + + + + + | Performing | Address | City/State/Zipcode | Phone Number | | Organization | | | | + + + + + | [facility] | [address] | [place] [address] | | | [place] | | | [...] | | cells No organisms seen | [facility] | + + + + + + + + | Performing | Address | City/State/Zipcode | Phone Number | | Organization | | | | + + + + + | [facility] | [address] | [place] [address] | | | [place] | | | [...] Rare Escherichia coli Refer to culture | [facility] - | | collected 03/24/18 at 11:56 [...] + | [facility] - | [address] | [place] [address] | | | [facility] | | | | + + + [...] + | [facility] - | [address] | [place] [address] | | | [place] | | | | + + + [...] Gram Stain: No squamous epithelial cells | [place] | | Rare polymorphonuclear cells No organisms seen | | + + + + + + + + | Performing | Address | City/State/Zipcode | Phone Number | | Organization | | | | + + + + + | [facility] | [address] | [place] [address] | | | [place] | | | [...] [facility] | [address] | [place], [place] | | | [facility] [place] | [facility] | [address] | | | TESTS | | | [...] [facility] | [address] | [place] [address] | | | SERVICES, CORE | PARK [...] | + + + + + | [facility] | [address] | [place] [address] | | | SERVICES, CORE | [address] [...] [facility] | [address] | [place] [address] | | | SERVICES, CORE | PARK [...] | | | LABORATORY | | | [facility] | | | SERVICES, | | | [...] [facility] | [address] | [place] [address] | | | SERVICES, CORE | PARK [...] | + + + + + | [facility] | [address] | [place] [address] | | | ANTONI ANGUIANO | [address] [...] [facility] | [address] | [place] [address] | | | SERVICES, CORE | PARK [...] | | | LABORATORY | | | TUR[facility]EN | | | SERVICES, | | | [...] [facility] | [address] | [place] [address] | | | SERVICES, CORE | PARK [...] + + + + | PRODUCT | [id number] | | [facility] | | | UNIT [...] + + + + | EXPIRATION | [id number] | | [facility] | | | DATE [...] + + + + | BLOOD | [id number] | | [facility] | | | PRODUCT [...] LABORATORY | [address] | [place] [address] | | | SERVICES, | [address] [...] | + + + + + | [employer] | [address] | [place] [address] | | | SERVICES, CORE | PARK [...] [facility] | [address] | [place] [address] | | | ANTONI ANGUIANO | [address] [...] + + + + | PRODUCT | [id number] | | [facility] | | | UNIT [...] + + + + | EXPIRATION | [id number] | | [facility] | | | DATE [...] + + + + | BLOOD | [id number] | | [facility] | | | PRODUCT [...] [facility] | [address] | [place] [address] | | | SERVICES, | [address] [...] | + + + + + | [facility] | [address] | [place] [address] | | | SERVICES, CORE | PARK [...] [facility] | [address] | [place] [address] | | | SERVICES, CORE | PARK [...] | + + + + + | [facility] | [address] | [place] [address] | | | SERVICES, CORE | ARMANDO [...] [facility] | [address] | [place] [address] | | | SERVICES, CORE | PARK [...] | + + + + + | [facility] | [address] | [place] [address] | | | SERVICES, CORE | ARMANDO [...] [facility] | [address] | [place] [address] | | | SERVICES, CORE | PARK [...] | | | LABORATORY | | | [facility] | | | SERVICES, | | | [...] the MDRD equation recommended by the | [facility] | | National Kidney Disease Education Program. Estimated GFR | LABORATORY | | Interpretive Information: <60 mL/min/1.73 sq | SERVICES, [facility] | | m Chronic Kidney Disease <15 [...] [facility] | [address] | [place] [address] | | | SERVICES, CORE | ARMANDO [...] + + + + | PRODUCT | [id number] | | [facility] | | | UNIT [...] + + + + | EXPIRATION | [id number] | | [facility] | | | DATE [...] + + + + | BLOOD | [id number] | | [facility] | | | PRODUCT [...] LABORATORY | [address] | [place] [address] | | | SERVICES, | [address] [...] | + + + + + | [facility] | [address] | [place] [address] | | | SERVICES, CORE | PARK [...] | + + + + + | [facility] | [address] | [place] [address] | | | SERVICES, CORE | ARMANDO [...] | + + + + + | [facility] | [address] | [place] [address] | | | SERVICES, CORE | ARMANDO [...] | + + + + + | [facility] | [address] | [place] [address] | | | SERVICES, CORE | [address] | | | + + + + + DEBRIDEMENT OF BELOW KNEE AMPUTATION STUMP (03/24/2018 1:31 PM PDT) + + + | Narrative | Performed At | + + + | Macie Torre MD 03/24/2018 1:49 PM [facility] & | | | [facility] DEPARTMENT OF ORTHOPAEDICS & REHABILITATION | | | OPERATIVE REPORT | | | Patient | | | Name: Tati Cage Date of : 1985 Medical Record | | | Number: [id number] Contract Serial Number:: [id number] Report | | | Author: MACIE TORRE MD Procedure Date: 03/24/2018 | | | Attending Physician: 1. MACIE TORRE MD Clinical Research Scientist(s): | | | 1. Tsering Dumont MD [...] and | | | fascia. Wound size [id number] after tacking back fascia | | | [...] in the remaining wound | | | [id number]. Excellent seal was attained. The patient was [...] - [facility] | [address] | [place], [place] | | | [facility] | [address] | [address] | | | TESTS | | | [...] | | | | | | number [id number]. Leg, | | | | | | [...] | + + + + + | [facility] | [address] | [place] [address] | | | PATHOLOGY | [address] [...] No squamous epithelial cells Rare polymorphonuclear | [place] | | cells No organisms seen | | + + + + + + + + | Performing | Address | City/State/Zipcode | Phone Number | | Organization | | | | + + + + + | [facility] | [address] | [place] [address] | | | [place] | | | [...] Escherichia coli Refer to culture collected | [facility] - | | 03/24/18 at 11:56 AM for susceptibilities 1+ Prevotella bivia Rare | [facility] - | | Coagulase negative Staphylococcus species Please contact the | [facility] microbiology laboratory if further work up of this culture is needed. | | | Gram Stain: No squamous epithelial cells No polymorphonuclear | | | cells No organisms seen | | + + + + + + + + | Performing | Address | City/State/Zipcode | Phone Number | | Organization | | | | + + + + + | [facility] | [address] | [place] [address] | | | [place] | | | | + + + [...] 1+ Prevotella bivia | [facility] - | | Gram Stain: No squamous epithelial cells No polymorphonuclear | [facility] | | cells No organisms seen | | + + + + + + + + | Performing | Address | City/State/Zipcode | Phone Number | | Organization | | | | + + + + + | [facility] | [address] | [place] [address] | | | [place] | | | [...] 1+ Escherichia coli Rare Enterococcus faecalis | [facility] - | | Refer to culture collected 03/24/18 at 11:56 AM for susceptibilities | [facility] - | | Rare Prevotella bivia Gram Stain: No squamous epithelial cells | [place] | | Rare polymorphonuclear cells No organisms seen | | + + + + + + + + | Performing | Address | City/State/Zipcode | Phone Number | | Organization | | | | + + + + + | [facility] | [address] | [place] [address] | | | [place] | | | | + + + [...] | + + + + + | [facility] | [address] | [place] [address] | | | [place] | | | | + + + [...] + + + + | PRODUCT | [id number] | | [facility] | | | UNIT [...] + + + + | EXPIRATION | [id number] | | [facility] | | | DATE [...] + + + + | BLOOD | [id number] | | [facility] | | | PRODUCT [...] [facility] | [address] | [place] [address] | | | SERVICES, | [address] [...] + + + + | PRODUCT | [id number] | | [facility] | | | UNIT [...] + + + + | EXPIRATION | [id number] | | [facility] | | | DATE [...] + + + + | BLOOD | [id number] | | [facility] | | | PRODUCT [...] [facility] | [address] | [place] [address] | | | SERVICES, | [address] [...] + + + + | PRODUCT | [id number] | | [facility] | | | UNIT [...] + + + + | EXPIRATION | [id number] | | [facility] | | | DATE [...] + + + + | BLOOD | [id number] | | [facility] | | | PRODUCT [...] | + + + + + | [facility] | [address] | [place] [address] | | | SERVICES, | [address] [...] [facility] | [address] | [place] [address] | | | SERVICES, CORE | PARK [...] [facility] | [address] | [place] [address] | | | SERVICES, CORE | PARK [...] [facility] | [address] | [place] [address] | | | ANTONI ANGUIANO | ARMANDO [...] | | | LABORATORY | | | [facility] | | | SERVICES, | | | [...] | + + + + + | [facility] | [address] | [place] [address] | | | ANTONI ANGUIANO | ARMAND[address] [...] | + + + + + | [facility] | [address] | [place] [address] | | | SILVIO, ANTONI | [address]AND[address] [...] + + + + | PRODUCT | [id number] | | [facility] | | | UNIT [...] + + + + | EXPIRATION | [id number] | | [facility] | | | DATE [...] + + + + | BLOOD | [id number] | | [facility] | | | PRODUCT [...] [facility] | [address] | [place] [address] | | | SERVICES, | [address] [...] | + + + + + | [facility] | [address] | [place] [address] | | | ANTONI ANGUIANO | ARMANDO [...] [facility] | [address] | [place] [address] | | | SERVICES, CORE | PARK [...] | + + + + + | [facility] | [address] | [place] [address] | | | SERVICES, CORE | PARK [...] | + + + + + | [facility] | [address] | [place] [address] | | | SERVICES, CORE | ARMAND[address] [...] [facility] | [address] | [place] [address] | | | SERVICES, CORE | PARK [...] | | | LABORATORY | | | [facility] | | | SERVICES, | | | [...] [facility] | [address] | [place] [address] | | | SERVICES, CORE | PARK [...] | + + + + + | [facility] | [address] | [place] [address] | | | SERVICES, CORE | PARK [...] | + + + + + | [facility] | [address] | [place] [address] | | | SERVICES, CORE | ARMANDO [...] [facility] | [address] | [place] [address] | | | SERVICES, | [address] [...] | + + + + + | [facility] | [address] | [place] [address] | | | SERVICES, CORE | PARK [...] [facility] | [address] | [place] [address] | | | SERVICES, | [address] [...] + + | [facility] | [address] | [place] [address] | | | SERVICES, CORE | ARMANDO [...] [facility] | [address] | [place] [address] | | | SERVICES, ANTONI | ARMAND[address] [...] | + + + + + | [facility] [facility] | [address] | [place] [address] | | | SERVICES, CORE | ARMAND[address] [...] | + +---+ | | | | [id number] | | | (SPECIAL MOUTHWASH) suspension | [...]
--- OUTSIDE RECORDS SUMMARY | ~2019-01-30 | XMS | Encounter Summary ---
Demographics + + + | Address | [address] | | | [place] [address] | + + + | Home Phone | | + + + | Preferred Language | Unknown | + + + | Marital Status | Single | + + + | Holiness Affiliation | CAT | + + + | Race | Unknown | + + + | Ethnic Group | Not or | + + + Author + + + | Author | [facility] | + + + | Organization | [facility] | + + + | Address | Unknown | + + + | Phone | Unavailable | + + + Support + + +---------+ + | Name | Relationship | Address | Phone | + + +---------+ + | Kika Cage | ECON | Unknown | | + + +---------+ + Care Team Providers + +------+ + | Care Arc Welder Apprentice Name | Role | Phone | [...] | | | | | [place], | | | | | | [place] [address] | | | +--------+--------+ + + + [...] Ave | | | | | | [place], [place] | | | | | | [address] | | | | | | [phone] | | | | | | | | +--------+ + + + + | 03/25/ | Office | Orthopedics | Lynda Basurto, | | | 2018 | Visit | | [address] | | | | | | [address] | | | | | | [place], [place] | | | | | | [address] | | | | | | [phone] | | | | | | | | +--------+ + + + + | 03/25/ | Office | Hematology & | Sandra Patel MD | | | 2018 | Visit | Oncology | [address] | | | | | | [place], [place] | | | | | | [address] | | | | | | [phone] | | | | | | | | +--------+ + + + + documented as of this encounter Visit Diagnoses Not on filedocumented in this encounter"
--- OUTSIDE RECORDS SUMMARY | ~2019-01-30 | XMS | Encounter Summary ---
Demographics + + + | Address | [address] | | | [place] [address] | + + + | Home Phone | | + + + | Preferred Language | Unknown | + + + | Marital Status | Single | + + + | Episcopalian Affiliation | CAT | + + + [...] Team Providers + +------+ + | Care Rag Production Worker Name | Role | Phone | [...] | | 2018 | | [facility] | [address] | | | | | for [facility] | [place], [place] | | | | | [address] | [address] | | | | | Mailcode: [place] | [phone] | | | | | for Health and | | | | | | [address] | | | | | | [place], [place] | | | | | | [address] | | | | | | [phone] | | | +--------+ + + + [...] | | | | | | [place], [place] | | | | | | [address] | | | | | | [phone] | | | | | | | | +--------+ + + + + | 03/25/ | Office | Orthopedics | Lynda Basurto, | | | 2019 | Visit | | [address] | | | | | | [address] | | | | | | [place], [place] | | | | | | [address] | | | | | | [phone] | | | | | | | | +--------+ + + + + | 03/25/ | Office | Hematology & | Sandra Ptael MD | | | 2019 | Visit | Oncology | [address] | | | | | | [place], [place] | | | | | | [address] | | | | | | [phone] | | | | | | | | +--------+ + + + + documented as of this encounter Visit Diagnoses Not on filedocumented in this encounter"
--- OUTSIDE RECORDS SUMMARY | ~2019-01-30 | XMS | Encounter Summary ---
Demographics + + + | Address | [address] | | | [place] [address] | + + + | Home Phone [...] Team Providers + +------+ + | Care Salad Bar Clerk Name | Role | Phone | [...] | [facility] [address] | [address] | call from DANIEL) | | | | [place] Mailcode: CH12A | [address] | | | | | [facility] | [place], [place] | | | | | and | [address] | | | | | Floor [place], [place] | [phone] | | | | | [address] | | | | | | [phone] | | | +--------+ + + + [...] | | | 2019 | | | [address] | | | | | | [place], [place] | | | | | | [address] | | | | | | [phone] | | | | | | | | +--------+ + + + + | 03/25/ | Office | Orthopedics | Lynda Basurto, | | | 2018 | Visit | | [address] | | | | | | [address] | | | | | | [place], [place] | | | | | | [address] | | | | | | [phone] | | | | | | | | +--------+ + + + + | 03/25/ | Office | Hematology & | Sandra Patel MD | | | 2018 | Visit | Oncology | [address] | | | | | | [facility] [place] | | | | | | [address] | | | | | | [phone] | | | | | | | | +--------+ + + + + documented as of this encounter Visit Diagnoses Not on filedocumented in this encounter"
--- OUTSIDE RECORDS SUMMARY | ~2019-01-30 | XMS | Encounter Summary ---
Demographics + + + | Address | [address] | | | [place] [address] | + + + | Home Phone [...] Team Providers + +------+ + | Care Welder Fitter Helper Name | Role | Phone | + +------+ + | Santo Gooden MD | PCP | | + +------+ + Encounter Details +--------+--------+ + + + | Date | Type | Department | Care Team | Description | +--------+--------+ + + + | 05/04/ | Intake | Transfer Center | | N/A | | 2018 | | [address] | | | | | | [place], | | | | | | [place] [address] | | | +--------+--------+ + + + [...] Ave | | | | | | [place], [place] | | | | | | [address] | | | | | | [phone] | | | | | | | | +--------+ + + + + | 03/25/ | Office | Orthopedics | Lynda Basurto, | | | 2018 | Visit | | [address] | | | | | | [address] | | | | | | [place], [place] | | | | | | [address] | | | | | | [phone] | | | | | | | | +--------+ + + + + | 03/25/ | Office | Hematology & | Sandra Patel MD | | | 2018 | Visit | Oncology | [address] | | | | | | [place], [place] | | | | | | [address] | | | | | | [phone] | | | | | | | | +--------+ + + + + documented as of this encounter Visit Diagnoses Not on filedocumented in this encounter"
--- OUTSIDE RECORDS SUMMARY | ~2019-01-30 | XMS | Encounter Summary ---
Demographics + + + | Address | [address] | | | [place] [address] | + + + | Home Phone [...] Team Providers + +------+ + | Care Cd Reactor Operator Head Name | Role | Phone | + [...] | | 2018 | | [facility] [place] | [address] | Clarification (port | | | | for Health & Healing | [place], [place] | maintenance) | | | | [address] | [address] | | | | | Mailcode: [place] | [phone] | | | | | for Health and | | | | | | Healing, [address] | | | | | | [place], [place] | | | | | | [address] | | | | | | [phone] | | | +--------+ + + + [...] | | | 2019 | | | [address] | | | | | | [facility] [place] | | | | | | [address] | | | | | | [phone] | | | | | | | | +--------+ + + + + | 03/25/ | Office | Orthopedics | Sb GallegosShirley, | | | 2018 | Visit | | [address] | | | | | | [address] | | | | | | [place], [place] | | | | | | [address] | | | | | | [phone] | | | | | | | | +--------+ + + + + | 03/25/ | Office | Hematology & | Sandra Patel MD | | | 2018 | Visit | Oncology | [address] | | | | | | [facility] [place] | | | | | | [address] | | | | | | [phone] | | | | | | | | +--------+ + + + + documented as of this encounter Visit Diagnoses Not on filedocumented in this encounter"
--- OUTSIDE RECORDS SUMMARY | ~2019-01-30 | XMS | Encounter Summary ---
Demographics + + + | Address | [address] | | | [place] [address] | + + + | Home Phone [...] Team Providers + +------+ + | Care Occupational Therapy Co Director Name | Role | Phone | [...] | Orthopedics | Diagnoses | Doung, | Sb, | | | | | Malignant | Lynda, | MD Lynda | | | | | neoplasm of | [address] | [address] | | | | | soft tissue | [address] | [address] | | | | | of ge | [address] | | | | | lower | [place], [place] | [facility] [place] | | | | | extremity | [address] | [address] | | | | | (HCC) | Phone: | Phone: | | | | | Procedures | [phone] | [phone] | | | | | REQUEST TO | Fax: | Fax: | | | | | SURGERY | [phone] | [phone] | | | | | BUSINESS AND SERVICES INSTRUCTOR | | | | | | | ME RAD RESEC | | | | | | | TUMOR,SOFT | | | | | | | TISS FOOT | | | | | | | ME RESECT | | | | | | [...] Oncology | Malignant | Lynda, | [address] | | | | | neoplasm of | MD [address] | | | | | soft tissue | [address] | [place], [place] | | | | | of left | [address] | [address] | | | | | lower | [place], [place] | Phone: | | | | | extremity | [address] | [phone] | | | | | (HCC) | Phone: | Fax: | | | | | Procedures | [phone] | [phone] | | | | | CONSULT TO | Fax: | | | | | | HEMATOLOGY / | [phone] | | | | | | ONCOLOGY [...] | | | neoplasm of | MD [address] | | | | | | soft tissue | [address] | | | | | | of left | [address] | | | | | | lower | [place], [place] | | | | | | extremity | [address] | | | | | | (HCC) | Phone: | | | | | | Procedures | [phone] | | | | | | CT CHEST WO | Fax: | | | | | | CONTRAST | [phone] | | + +--------+ + + + + Reason for Visit Office Visit - E/M Services (Routine) +--------+--------+ + + + + | Status | Reason | Specialty | Diagnoses / | Referred By | Referred To | | | | | Procedures | Contact | Contact | +--------+--------+ + + + + | Closed | | Orthopedics | Diagnoses | Qulottie, | Hugo, | | | | | Foot mass, | Santo Rogers MD | Miles Mckeon MD | | | | | 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 | [place] [facility] | | | | | (HCC) L | Health | Rd | | | | | Foot Mass | Center | [place], [place] | | | | | (Sarcoma) | [address] | [address] | | | | | | [address] | Phone: | | | | | | Way | [phone] | | | | | | [place], | Fax: | | | | | | [place] [address] | [phone] | | | | | | Phone: | | | | | | | [phone] | | | | | | | Fax: | | | | | | | [phone] | | +--------+--------+ + + + + Encounter Details +--------+---------+ + + + | Date | Type | Department | Care Team | Description | +--------+---------+ + + + | 01/22/ | Office | [facility] | Lynda Basurto, | 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) (Primary Dx) | | | | [place] [facility] | [address] | | | | | and Healing, | [phone] | | | | | [address] | | | | | | [place], [place] | | | | | | [address] | | | | | | [phone] | | | +--------+---------+ + + + [...] Pressure | 166/99 | 01/22/2018 4:10 PM | | | | | PDT | | + + + + + | Pulse | 95 | 01/22/2018 4:10 PM | | | | | PDT | | + + + + + | Temperature | 36.8 C (98.2 F) | 01/22/2018 4:10 PM | | | | | PDT | | + + + + + | Respiratory Rate | 18 | 01/22/2018 4:10 PM | | | | | PDT | | + + + + + | Oxygen Saturation | 99% | 01/22/2018 4:10 PM | | | | | PDT | | + + + + + | Inhaled Oxygen | - | - | | | Concentration | | | | + + + + + | Weight | 139.8 kg (308 lb 1.6 | 01/22/2018 4:10 PM | | | | oz) | PDT | | + + + + + | Height | - | - | | + + + + + | Body Mass Index | 46.85 | 01/15/2018 10:06 AM | | | [...] addition to that, it she is at [facility] for significant wound healing problems and [...] has wound complications, she is returning to [facility] until he gets fully addressed. -Because of the location, radiation therapy is not a great option. -I will place a surgical intake for resection with limb salvage. The date of surgery will depend on whether she gets neoadjuvant chemotherapy. documented in this encounter Plan of Treatment +--------+ + + + + | Date | Type | Specialty | Care Team | Description | +--------+ + + + + | 03/25/ | Appointment | Radiology | Sandra Patel MD | | | 2018 | | | [address] | | | | | | [place], [place] | | | | | | [address] | | | | | | [phone] | | | | | | | | +--------+ + + + + | 03/25/ | Office | Orthopedics | Lynda Basurto, | | | 2018 | Visit | | [address] | | | | | | [address] | | | | | | [place], [place] | | | | | | [address] | | | | | | [phone] | | | | | | | | +--------+ + + + + | 03/25/ | Office | Hematology & | Sandra Patel MD | | | 2018 | Visit | Oncology | [address] | | | | | | [place], [place] | | | | | | [address] | | | | | | [phone] | | | | | | | | +--------+ + + + + documented as of this encounter Results CT CHEST WO CONTRAST (01/22/2018 5:57 PM PDT) + + | Specimen | + + | | + + + + + | Narrative | Performed At | + + + | EXAM: CT CHEST WO CONTRAST 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 eval for mets. COMPARISON: None TECHNIQUE: | RADIOLOGY VOICE | | Helical scanning was obtained of the chest without intravenous | RECOGNITION 2 | | contrast and reviewed in soft tissue and lung algorithm. Coronal and | | | sagittal images were also generated. FINDINGS: There is a | | | sub-5 mm nodule in the left major fissure most consistent with an | | | intrapulmonary lymph node. The lungs are otherwise clear. There is no | | | pleural effusion or pneumothorax. The airways are clear. The | | | visible thyroid is unremarkable. Aortic arch branching is | | | conventional. Heart and great vessels sizes are normal. There is no | | | pericardial effusion. There is no mediastinal adenopathy. Visible | | | portions of the liver, gallbladder, spleen, pancreas, adrenals, | | | kidneys, and bowel are unremarkable. The superficial soft | | | tissues are unremarkable. 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 | | | There is no acute fracture or suspicious osseous lesion. | | | IMPRESSION: No evidence of thoracic metastatic disease. I | | | have personally reviewed the images and, if necessary, edited the | | | report. I agree with the report as now presented. Final | | | signature: Momo Girard MD 01/23/2018 10:13 AM Preliminary: Mervin Mckeon | | | MD Aly | | + + + + + [...] |Preliminary: Mervin Lu MD | + + + +---------+ + + [...] lower extremity (HCC) - Primary | + + documented in this encounter"
--- OUTSIDE RECORDS SUMMARY | ~2019-01-30 | XMS | Encounter Summary ---
Demographics + + + | Address | [address] | | | [place] [address] | + + + | Home Phone [...] Team Providers + +------+ + | Care Senior Integration Architect Name | Role | Phone | [...] | Synovial | Sandra Schmitt MD | [facility] [address] | | | | | sarcoma | [address] | [address] | | | | | (FORMERLY [facility]) | Ave | Mailcode: | | | | | Procedures | [place], [place] | [facility] | | | | | [place] | [address] | for Health | | | | | CONTRAST DC | Phone: | and Healing, | | | | | [place] | [phone] | 3rd Floor | | | | | SCAN,THORAX, | Fax: | [place], [place] | | | | | W/O CONTRAST | [phone] | [address] | | | | | | | Phone: | | | | | | | [phone] | | | | | | | Fax: | | | | | | | [phone] | +--------+--------+ + + + + Diagnostic [...] | Synovial | Sandra Schmitt MD | [facility] | | | | | sarcoma | [address] | [address] | | | | | (HCC) | Ave | Mailcode: | | | | | Procedures | [place], [place] | [facility] | | | | | [place] | [address] | for Health | | | | | CONTRAST [place] | Phone: | and Healing, | | | | | [place] | [phone] | 3rd Floor | | | | | SCAN,THOR[place], | Fax: | [place], [place] | | | | | W/[place] CONTRAST | [phone] | [address] | | | | | | | Phone: | | | | | | | [phone] | | | | | | | Fax: | | | | | | | [phone] | +--------+--------+ + + + + Reason [...] [address] | | | | | ([facility]ERLY [facility]) | Ave | Mailcode: | | | | | Procedures | [place], [place] | [facility] | | | | | [place] | [address] | for Health | | | | | CONTRAST [place] | Phone: | and Healing, | | | | | [place] | [phone] | 3rd Floor | | | | | SCAN,THOR[place], | Fax: | [place], [place] | | | | | W/[place] CONTRAST | [phone] | [address] | | | | | | | Phone: | | | | | | | [phone] | | | | | | | Fax: | | | | | | | [phone] | +--------+--------+ + + + + Encounter Details +--------+ + + + + | Date | Type | Department | Care Team | Description | +--------+ + + + + | 12/03/ | Hospital | Radiology/Imaging | Sandra Patel MD | | | 2019 | Encounter | Lab at [facility] | [address] | | | | | [address] | [place], [place] | | | | | Mailcode: [facility] | [address] | | | | | [facility] | [phone] | | | | | and [facility] | | | | | | Floor [place], [place] | | | | | | [address] | | | | | | [phone] | | | +--------+ + + + [...] + + + +---------+ + + | buPROPion 75 mg | | | 0 | 11/28/19 | | | oral tablet | | | | 19 | | + + + +---------+ + + | citalopram 40 mg | Take 40 mg by mouth | | 0 | | | | oral tablet | once daily at | | | | | | | bedtime. | | | | | + + + +---------+ + + | clonazePAM 1 mg | | | 0 | 11/07/19 | | | oral tablet | | | | 19 | | + + + +---------+ + [...] + + + +---------+ + + | naproxen 500 mg | | | 0 | 11/11/19 | | | oral tablet | | | | 19 | | + + + +---------+ + [...] Scott | | | | | | [place], [place] | | | | | | [address] | | | | | | [phone] | | | | | | | | +--------+ + + + + | 03/25/ | Office | Orthopedics | Lynda Basurto, | | | 2018 | Visit | | [address] | | | | | | [address] | | | | | | [place], [place] | | | | | | [address] | | | | | | [phone] | | | | | | | | +--------+ + + + + | 03/25/ | Office | Hematology & | Sandra Patel MD | | | 2019 | Visit | Oncology | [address] | | | | | | [place], [place] | | | | | | [address] | | | | | | [phone] | | | | | | | [...]
--- OUTSIDE RECORDS SUMMARY | ~2019-01-30 | XMS | Encounter Summary ---
Demographics + + + | Address | [address] | | | [place] [address] | + + + | Home Phone [...] Team Providers + +------+ + | Care Route Vending Machine Servicer Name | Role | Phone | [...] | 2019 | on | Oncology at [facility] | | | | | | [facility] | | | | | | [address] | | | | | | Mailcode: [place] | | | | | | [facility] | | | | | | [facility] | | | | | | [place], [place] | | | | | | [address] | | | | | | [phone] | | | +--------+ + + + [...] Scott | | | | | | [place], [place] | | | | | | [address] | | | | | | [phone] | | | | | | | | +--------+ + + + + | 03/25/ | Office | Orthopedics | Rosy BasurtoRegiotto, | | | 2018 | Visit | | [address] | | | | | | [address] | | | | | | [facility] [place] | | | | | | [address] | | | | | | [phone] | | | | | | | | +--------+ + + + + | 03/25/ | Office | Hematology & | Sandra Patel MD | | | 2018 | Visit | Oncology | [address] | | | | | | [place], [place] | | | | | | [address] | | | | | | [phone] | | | | | | | | +--------+ + + + + documented as of this encounter Visit Diagnoses Not on filedocumented in this encounter"
--- OUTSIDE RECORDS SUMMARY | ~2019-01-30 | XMS | Encounter Summary ---
Demographics + + + | Address | [address] | | | [place] [address] | + + + | Home Phone [...] + + + | Author | [facility] | + + + | Organization | [facility] | + + + | Address | Unknown | + + + | Phone | Unavailable | + + + Support + + +---------+ + | Name | Relationship | Address | Phone | + + +---------+ + | Kika Cage | ECON | Unknown | | + + +---------+ + Care Team Providers + +------+ + | Care Parlor Chaperone Name | Role | Phone | + [...] | +--------+ + + + + | 05/05/ | Hospital | [facility] [address] | [place], | | | 2018 - | Encounter | Federico Weathers | [address] | | | | | Road Mailcode: | [address] | | | 05/09/ | | [id number] | [place], [place] | | | 2018 | | [place], | [address] | | | | | [place] [address] | [phone] | | | | | [phone] | | | | | | | Suzie Rojo MD | | | | | | [address] | | | | | | [place], | | | | | | [place] [address] | | | | | | [phone] | | | | | | | [...] + + + | Blood Pressure | 139/86 | 05/09/2018 8:49 AM | | | | | PDT | | + + + + + | Pulse | 72 | 05/09/2018 8:49 AM | | | | | PDT | | + + + + + | Temperature | 37 C (98.6 F) | 05/09/2018 8:49 AM | | | | | PDT | | + + + + + | Respiratory Rate | 16 | 05/09/2018 8:49 AM | | | | | PDT | | + + + + + | Oxygen Saturation | 97% | 05/09/2018 9:00 AM | | | | | PDT | | + + + + + | Inhaled Oxygen | - | - | | | Concentration | | | | + + + + + | Weight | 147.7 kg (325 lb 9.9 | 05/09/2018 9:43 AM | | | | oz) | PDT | | + + + + + | Height | - | - | | + + + + + | Body Mass Index | 49.51 | 04/24/2018 2:04 PM | | | [...] documented as of this encounter Discharge Summaries Emre Quiñones MD - 05/09/2018 1:27 PM PDT [facility] Discharge Summary Discharging Provider: EMRE QUIÑONES MD Discharging Attending Physician: Suzie Rojo MD PCP: Santo Gooden MD Admission Date: 05/05/2018 Discharge Date: 05/09/2018 Hospital Stay: 4 day(s) Diagnosis: Principal Diagnosis: 1. Neutropenic fever Additional Diagnoses: 2. 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 Esophageal ulcer 6. Non-cardiac Chest pain Procedures: EGD 05/08 Impression: - Normal cricopharyngeus, proximal esophagus and mid esophagus without evidence of ulcera tion, mucosal disease or candidiasis - Single small linear ulcer in the distal esophagus near the GEJ which may be related to r eflux, bx taken Reason for Admission: Ms. 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 She noted she was febrile at home to 100.8 and had symtpoms of odynopagia of 6 days duration. She was transferred to [facility] for consideration of an EGD. Labs were notabel fo r an ANC of 170, Hb of 8.1, plt of 15. CXR unremarkable from OSH. Hospital Course by Problem (with follow-up plan/instructions): #Neutropenic Fever Secondary to cycle 3 of ifosfamide and epirubicin given on 04/24. On arrival she was started on cefepime (for neutropenic fever), vancomycin (for concern of esophagitis), acyclovir (to cover possibler HSV esophagitis), fluconazole (to cover for possible candidal esophagitis) and she was continued on her home Flagyl (for her known L BKA osteomyelitis). ID and GI were consulted. She had rapid recovery of her counts and was no longer neutropenic by hospital d ay 2. She underwent an EGD which demonstrated a distal liner esophageal ulcer and was otherw ise unremarkable. With count recovery she was transitioned back to her home cefazolin 2g Q8H and her home Flagyl was continued. Blood cultures from OSH were no growth to date. Both acy clovir and fluconazole were discontinued pending her biopsy results. -c/w home cefazolin and Flagyl unchanged through 05/15 -f/u asa scheduled with Dr. Hardy 05/14 -f/u esophageal biopsies #Odynophagia EGD demonstrating a small linear ulcer of the distal esophagus. She was transitioned to a B IF PPI for her distal esophageal ulcer. An ultrasound of her neck was obtained to rule out s ubacute thyroiditis, which was unremarkable; TSH and T4 normal. She was reporting symtpom im provement by discharge and was tolerating a PO diet. -NEW medication: omeprazole 20mg BID -DC ranitidine #Non-caridac chest pain EKG and troponin negative. Suspect the etiology to be multifactorial from her odynophagia a nd a component of anxiety. Resolved without further intervention #Hypokalemia She did not need any potassium replacement while admitted, and thus her home KCl was discon tinued at dsicharge. Would follow-up her K at her next appointment and if needed would consi mellisa liquid KCl given her odynopahgia -DC scheduled KCl Pertinent Findings: Imaging: CXR 05/04 "No thoracic source of sepsis" Neck US 05/09 IMPRESSION: Unremarkable study without ultrasonographic evidence of thyroiditis Other Studies: None Outstanding or Pending Labs/Studies: Esophageal biopsies, 05/08 Consultants (service/attending name): GI: Dr. Quiroz Oncology: Dr. Patel ID: Dr. Ramos Discharge Medications: Medication List START taking these medications ceFAZolin Solr Commonly known as: ANCEF Inject 2,000 mg into the vein (IV) every eight hours. To be admixed per infusion pharmacy s tandard policy and/or procedure. omeprazole 20 mg Cpdr Commonly known as: PRILOSEC Take 1 capsule by mouth two times daily. Indications: Maintenance of Healing Erosive Esopha gitis CONTINUE taking these medications citalopram 40 mg Tab Commonly known as: CELEXA Take 40 mg by mouth once daily at bedtime. CLARITIN 10 mg Tab Generic drug: loratadine Take 10 mg by mouth once daily. dexamethasone 4 mg Tab Commonly known as: DECADRON Take 2 tablets by mouth every twenty-four hours. Indications: Prevention of Chemotherapy-In duced Nausea and Vomiting lidocaine-prilocaine 2.5-2.5 % Crea Commonly known as: EMLA Apply to affected area as needed. Apply a thick layer to intact skin and cover with an occl usive dressing. LORazepam 0.5 mg Tab Commonly known as: ATIVAN Take 1 tablet by mouth every six hours as needed for anxiety. LYRICA 225 mg Cap Generic drug: pregabalin Take 1 capsule by mouth two times daily. At 0900 and 1700. Indications: phantom pain Miscellaneous Medical Supply [facility] Commonly known as: Miscellaneous Medical Supply Bedside commode for nighttime use following foot amputation. nystatin 100,000 unit/gram Powd Commonly known as: MYCOSTATIN Apply to affected area two times daily. Apply to candidal lesions until lesions have healed . Indications: skin infection, redness in pannus, skin folds OLANZapine 10 mg Tab Commonly known as: ZYPREXA Take 1 tablet by mouth once daily at bedtime. Indications: Prevention of Chemotherapy-Induc ed Nausea and Vomiting ondansetron 8 mg Tab Commonly known as: ZOFRAN Take 1 tablet by mouth every twelve hours as needed (2nd line for nausea/vomiting). oxyCODONE (immediate release) 5 mg Tab Commonly known as: ROXICODONE Take 1 to 3 tablets by mouth every three hours as needed for moderate pain. Wean off soon and do not combine with other sedating meds like Clonazapam POLYETHYLENE GLYCOL 3350 ORAL Take 17 g by mouth once daily. Adjust dose to effect. May take up to 3 times daily as neede d for constipation. prochlorperazine 5 mg Tab Commonly known as: COMPAZINE 04/27-05/01: Take 2 tablet by mouth every 6 hours. After 05/01 may take 2 tablet by mouth ever y 6 hours as needed. Max dose: 40 mg/day Indications: Prevention of Chemotherapy-Induced Na usea and Vomiting senna-docusate 8.6-50 mg Tab Commonly known as: SENOKOT S Take 2 tablets by mouth two times daily. Prevention of opioid induced constipation STOP taking these medications ceFEPIme 2 gram Solr Commonly known as: MAXIPIME potassium chloride SR 20 mEq Tbtq Commonly known as: K-DUR ranitidine 150 mg Tab Commonly known as: ZANTAC ASK your doctor about these medications metroNIDAZOLE 500 mg Tab Commonly known as: FLAGYL Take 1 tablet by mouth every eight hours. Indications: osteomyelitis Ask about: Should I take this medication? Rationale for Medication Changes: Ranitidine: Changed to omperzole for ditl esophageal ulcer KCl: no clear indication, would trend K as above Allergies: Allergies Allergen Reactions Chlorhexidine Rash Demerol [Meperidine Hcl] Pruritus Morphine Pruritus Code Status: Full POLST completed: no Additional Instructions: Condition on Discharge Fair Diet Instructions Diet Regular Regular diet- There are no restrictions to your diet. You may eat or drink whatever you p refer, though healthy food choices are recommended. - Activity Instructions Activity No activity restrictions Additional Instructions Home Health Referral after Hospitalization Comments: I certify that this patient is under my care and that I, or Nurse Practitioner or Physician Trimming Inspector working with me, had a face to face encounter with this patient on 05/09/2018 On behalf of Attending Physician: Suzie Rojo MD I am ordering and certify that the following services are medically necessary home health services: Home Health Group Home Evaluate and Treat I certify that the patient is homebound based on the following clinical findings: Recent surgery who may be suffering from weakness and pain and may have restrictions from their y sician to limit certain activities such as getting out of bed for specific amount of time, w alking the stairs once a day, etc OTHER DISCHARGE ORDERS & INSTRUCTIONS Other Discharge Orders and Instructions Follow-up as scheduled with Dr. Patel on 05/14. Option care to manage IV antibiotics Other Orders & Follow-up Plan Home Health Referral after Hospitalization OTHER DISCHARGE ORDERS & INSTRUCTIONS Other Discharge Orders and Instructions Discharge Destination No service has been selected for the patient. Home Care Medical - Selection Complete Service Request Status Selected Specialties Address Phone Number Fax Number [facility] Selected Home Health Services [phone] [facility] [place] [phone] Social Care Services No service has been selected for the patient. Follow Up: Future Appointments Provider Department Dept Phone Center 05/14/2018 7:45 AM RAD OP [facility]1 Radiology/Imaging Lab at [facility] [phone] RADIOLOGY 05/14/2018 1:00 PM Angely Stephen Hematology/Medical Oncology at [facility] 7th Floor [phone] [place] 05/14/2018 3:00 PM Hem Starter Nurse Hematology/Medical Oncology at [facility] [phone] HemOnc 05/14/2018 3:40 PM Sandra Schmitt Jorge Hematology/Medical Oncology at [facility] [phone] [place] 05/14/2018 4:00 PM Lynda Basurto [facility] [phone] [place] Contact information for other follow-up providers SANTO GOODEN MD . Specialty: Family Medicine Contact information [facility] [address] [address] [place] [address] Contact information for after-discharge [facility] . Specialty: Home Health Services Contact information [address] [place] [address] Discharge Physical Exam: Last 24 hour min/max Temp: 37 C (98.6 F) No Data Recorded Heart Rate: 72 No Data Recorded Resp: 16 No Data Recorded BP: 139/86 No Data Recorded SpO2: 97 % No Data Recorded Body mass index is 49.51 kg/m. General: NAD HEENT/Neck: anicteric Cardiovascular: RRR, S1/S2, no M/R/G Pulmonary: CTAB Abdominal: soft, NT/ND, no rebound or guarding Skin: no rashes Musculoskeletal: S/p L BKA, no edema EMRE QUIÑONES MD documented in this enco unter Discharge Instructions Instructions Misti Rondon RN - 05/09/2018Patient Education Materials: when to sheng espinoza MD, prescriptions, Additional Instructions: dysphagia diet Discharge Nurse: Misti Rondon RN Date: 05/09/2018 Discharge Time: 1:01 PM Learning About the Diet for Swallowing Problems What are swallowing problems? Difficulty swallowing is also called dysphagia (say "[id number]"). It is most often a s ign of a problem with your throat or esophagus. This is the tube that moves food and liquids from the back of your mouth to your stomach. Trouble swallowing can occur when the muscles and nerves that move food through the throat and esophagus are not working right. To help you swallow food, your doctor or speech therapi st may advise a special dysphagia diet for you. Why is a special diet important? A dysphagia diet can help you handle some problems that can occur when it's hard to swallow food and liquids easily. These problems can include: Malnutrition. This means you aren't getting enough healthy foods to keep your body worki ng well. Dehydration. This means you aren't getting enough liquids to keep your body healthy. Aspiration. This means that food, liquid, or saliva goes down your windpipe (trachea) in to your lungs, instead of down your esophagus to your stomach. This can lead to aspiration p neumonia, which is an inflammation of the lungs. What is the dysphagia diet? In the dysphagia diet, you change the foods you eat and the liquids you drink to make it ea sier to swallow them. You may: Change the texture of the foods you eat. Your doctor or speech therapist may advise you to eat one of these types of foods: Solid, soft foods that have been cut up into small pieces. Extra gravy or sauce can help make these foods easier to swallow. Semi-solid foods, like ground meats or fruits and vegetables that are mashed with a fork . These foods require some chewing. Extra gravy or sauce is often served. Foods that are the texture of pudding. You don't have to chew these foods. Examples incl ude mashed potatoes with gravy; yogurt; pudding; and pureed meats, fruits, and vegetables. Thicken the liquids you drink. Your doctor or speech therapist will tell you what kind o f thickener to use and how thick to make the liquids. [place]-thick liquids leave a thin coating when they are poured from a spoon. Honey-thick liquids drip slowly when they are poured from a spoon. Pudding-thick liquids do not pour from a spoon. Your speech therapist will help you learn exercises to train your muscles to work together so you can swallow. You may also need to learn how to position your body or how to put food in your mouth to be able to swallow better. Some people have severe trouble swallowing and can't get enough food and liquids. In those cases, the doctor can insert a feeding tube so the person gets enough nutrients. Follow-up care is a romero part of your treatment and safety. Be sure to make and go to all ap pointments, and call your doctor if you are having problems. It's also a good idea to know y our test results and keep a list of the medicines you take. Where can you learn more? To learn more about "Learning About the Diet for Swallowing Problems", log into your [employer] account at [email or web address]. You can enter R741 in the "[employer] Library" search box. Not on myBarrister? Review the [employer] section of your After Visit Summary for directions on lin osorio to sign up. Current as of: July 22, 2017 Content Version: 07.09-2018 [employer]. Care instructions adapted under license by [facility]. If you have questions about a medical condition or this instr uction, always ask your healthcare professional. [employer] disclaims any dleta anty or liability for your use of this information. documented in this encounter Medications at Time [...] documented as of this encounter Progress Notes Suzie Rojo MD - 05/09/2018 11:54 AM PDT GENERAL INTERNAL MEDICINE FACULTY PROGRESS NOTE - GM 5 Attending Physician: Suzie Rojo MD Hospital Day: 4 PCP: Santo Gooden MD Patient's Name: Tati Cage Today's Date: 05/09/2018 I personally interviewed the patient, performed the romero elements of the physical examinatio n, and personally formulated the assessment and plan with the resident. I agree with Dr. Shayne alanis's documentation, except as noted or expanded upon below. Current Medications Current Facility-Administered Medications Medication Dose Route Frequency Last Rate ceFAZolin IV 2 gram in dextrose (RTU) 2 g intravenous Q8H Stopped (05/09/18 0930) citalopram (CELEXA) tablet 40 mg 40 mg oral HS loratadine (CLARITIN) tablet 10 mg 10 mg oral DAILY metroNIDAZOLE (FLAGYL) tablet 500 mg 500 mg oral TID OLANZapine (ZYPREXA) tablet 5 mg 5 mg oral HS omeprazole (PRILOSEC) capsule 20 mg 20 mg oral BID polyethylene glycol (MIRALAX) packet 17 g 17 g oral DAILY pregabalin (LYRICA) capsule 225 mg 225 mg oral BID senna-docusate (SENOKOT S) 8.6-50 mg 2 tablet 2 tablet oral BID Current Facility-Administered Medications Medication Dose Route Frequency Last Rate acetaminophen (TYLENOL) tablet 650 mg 650 mg oral Q4H PRN aluminum-magnesium hydroxide-simethicone (MAALOX; MYLANTA) 200-200-20 mg/5 mL suspensio n 30 mL 30 mL oral Q8H PRN And lidocaine viscous (XYLOCAINE VISCOUS) 2 % mucosal solution 30 mL 30 mL oral Q8H PRN heparin 10 unit/mL IV flush syringe 50 Units 50 Units intravenous PRN heparin 100 unit/mL IV flush 500 Units 500 Units intravenous PRN HYDROmorphone (DILAUDID) injection 0.2-0.4 mg 0.2-0.4 mg intravenous Q4H PRN lidocaine (LMX 4) 4 % cream topical PRN LORazepam (ATIVAN) tablet 0.5 mg 0.5 mg oral Q6H PRN menthol-zinc oxide (CALAZIME) topical paste 0.2%-16.5% topical BID PRN ondansetron (ZOFRAN) tablet 4-8 mg 4-8 mg oral Q12H PRN Or ondansetron ODT (ZOFRAN ODT) tablet 4-8 mg 4-8 mg oral Q12H PRN oxyCODONE (immediate release) (ROXICODONE) tablet 5-15 mg 5-15 mg oral Q4H PRN prochlorperazine (COMPAZINE) tablet 5-10 mg 5-10 mg oral Q6H PRN Or prochlorperazine (COMPAZINE) injection 5-10 mg 5-10 mg intravenous Q6H PRN saliva substitute (MOUTH KOTE) spray oral PRN ASSESSMENT/PLAN Problem List: 1. Neutropenic fever 2. Pancytopenia 3. Odynophagia and dysphagia 4. Esophageal ulcer 5. Esophagitis secondary to epirubicin induced mucositis 6. Synovial sarcoma s/p recent L BKA on chemo 7. Anxiety Ms. Cage is a 32 y/o lady with anxiety and synovial sarcoma s/p recent L BKA on chemo admit abhilash with neutropenic fever in the setting of odynophagia and dysphagia and found to have an esophageal ulcer. TFTs WNL and thyroid ultrasound unremarkable. No infection has been identified. Etiology of her ulcer may be related to reflux but biopsies taken and pending. Discontinue H2 nohemi a nd start PPI. If needs potassium replacement in the future, will place on oral and not pill form to minimize risk of pill esophagitis. Medically stable for discharge with outpatient fo llow-up. Mother and aunt at bedside and updated. Appreciate involvement of ID, Oncology, GI and CM. SUZIE ROJO MD Pager - [phone] reinsurance accountant Director, Clinical Hospitalist Service Clinical and Medicine Teaching Hospitalist Services [facility] I have spent more than 30 minutes with the patient of which more than 50% was spent veterans' counselor ing regarding neutropenic fever. Lusi Kelly - 2017 5:10 PM PDT INPATIENT ONCOLOGY PROGRESS NOTE Hospital Day:3 Author; Luis Ruggiero Attending Physician: Suzie Rojo MD ID: Tati Cage is a 32 y.o. 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 Oncology has been consulted regarding neutropenic fever management. Interval Events: -EGD performed 05/08/18 overall unremarkable, a superficial linear ulcer at the GE junctions consistent with GERD was biopsied. - Remains afebrile now >48 hours, ANC continues to increase, now 1800. Subjective: Patient reports feeling better every day, relieved to have completed EGD. States her throat pain is now a 1/10 constant pain that increases to 4/10 with swallowing, this is improved f rom "more than 10/10" when she was admitted. Otherwise no new complaints, she denies CP, SOB , cough, n/v/d, constipation, dysuria. Reports some temporary redness of her L BKA surgical wound that resolved spontaneously ROS: 12 point ROS negative except as documented above. Physical Exam: BP 131/89 | Pulse 79 | Temp 36.9 C (98.4 F) | RR 14 | Wt 143.5 kg (316 lb 5.8 oz) | SpO 2 98% | BMI 48.1 kg/(m^2) Intake/Output Summary (Last 24 hours) at 05/07/18 1809 Last data filed at 05/07/18 1800 Gross per 24 hour Intake 3237.5 ml Output 4562 ml Net -1324.5 ml General: Sitting upright in bed in NAD Neuro: Alert, no gross focal deficits Psych: pleasant, affect appropiate Skin: No rashes HEENT: oral mucous membrane moist without lesions Chest: Breathing comfortably on room air CV: RRR, S1 and S2 audible with no murmurs Ext: L BKA wound site healing well with no erythema, discharge, or TTP Lines: Port site without surrounding erythema/drainage Data: CBC with diff last 72 hours (or 3 results) Recent Labs 05/05/18 2200 05/06/18 1057 05/07/18 0453 WBC 0.78* 1.07* 2.37* HB 8.4* 8.1* 8.0* HCT 24.4* 23.4* 22.9* PLT 12* 15* 32* NEUTROPERC 22.6* 42.1* 54.9 LYMPHPERC 71.6* 42.1* 26.2 MONOPERC 4.4 12.1* 15.2* BASOPERC 0.7 1.9 0.8 EOSPERC 0.7* 0.9* 0.4* Chemistries: Last 72 Hours (or 3 results): Recent Labs 05/05/18 2200 05/06/18 1801 05/07/18 0453 NA 142 141 142 K 3.7 3.7 3.8 CL 110* 109* 110* BICARB 24 25 23 BUN 12 11 8 CR 0.68 0.69 0.73 GLU 163* 127* 104* CA 8.6 8.4* 8.3* MG 2.1 2.0 -- Liver Tests: Last 72 hours (or 3 results) Recent Labs 05/05/18 2200 AST 7 ALT 11 TBILI 0.4 AP 43 ALB 3.1* TP 6.4 Current Facility-Administered Medications Medication Dose Route Frequency Last Rate ceFAZolin IV 2 gram in dextrose (RTU) 2 g intravenous Q8H 0 g (05/08/18 0845) citalopram (CELEXA) tablet 40 mg 40 mg oral HS famotidine (PEPCID) tablet 20 mg 20 mg oral BID loratadine (CLARITIN) tablet 10 mg 10 mg oral DAILY metroNIDAZOLE (FLAGYL) tablet 500 mg 500 mg oral TID OLANZapine (ZYPREXA) tablet 5 mg 5 mg oral HS polyethylene glycol (MIRALAX) packet 17 g 17 g oral DAILY pregabalin (LYRICA) capsule 225 mg 225 mg oral BID senna-docusate (SENOKOT S) 8.6-50 mg 2 tablet 2 tablet oral BID sucralfate (CARAFATE) suspension 1 g 1 g oral AC and HS Current Facility-Administered Medications Medication Dose Route Frequency Last Rate acetaminophen (TYLENOL) tablet 650 mg 650 mg oral Q4H PRN aluminum-magnesium hydroxide-simethicone (MAALOX; MYLANTA) 200-200-20 mg/5 mL suspensio n 30 mL 30 mL oral Q8H PRN And lidocaine viscous (XYLOCAINE VISCOUS) 2 % mucosal solution 30 mL 30 mL oral Q8H PRN heparin 10 unit/mL IV flush syringe 50 Units 50 Units intravenous PRN heparin 100 unit/mL IV flush 500 Units 500 Units intravenous PRN HYDROmorphone (DILAUDID) injection 0.2-0.4 mg 0.2-0.4 mg intravenous Q4H PRN lidocaine (LMX 4) 4 % cream topical PRN LORazepam (ATIVAN) tablet 0.5 mg 0.5 mg oral Q6H PRN menthol-zinc oxide (CALAZIME) topical paste 0.2%-16.5% topical BID PRN ondansetron (ZOFRAN) tablet 4-8 mg 4-8 mg oral Q12H PRN Or ondansetron ODT (ZOFRAN ODT) tablet 4-8 mg 4-8 mg oral Q12H PRN oxyCODONE (immediate release) (ROXICODONE) tablet 5-15 mg 5-15 mg oral Q4H PRN prochlorperazine (COMPAZINE) tablet 5-10 mg 5-10 mg oral Q6H PRN Or prochlorperazine (COMPAZINE) injection 5-10 mg 5-10 mg intravenous Q6H PRN saliva substitute (MOUTH KOTE) spray oral PRN Assessment/Recommendations: Tati Cage is a 32 y.o. 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 Oncology has been consulted regarding neutropenic fever management. Low Risk Neutropenic Fever 2/2 epirubicin and ifosfamide - Resolved Esophagitis 2/2 epirubicin induced mucositis Initial ANC 180 and Tmax 38.2 (100.8). After thorough workup no clear cause of infection sanchez s been identified. Due to her severe sore throat, there was concern she may have infectious esophagitis (e.g. Candidiasis, CMV, Herpes), so once her ANC improved to >1000 a EGD was per formed (05/08), which was negative aside from small distal linear ulcer. Currently afebrile with ANC 1800 and improved but not resolved sore throat. Given negative EGD may d/c fluconazole and acyclovir. Recommendations: - Continue cefazolin and continue metronidazole for osteomyelitis treatment (end date 05/15) - Discontinue fluconazole and acyclovir - Continue Sucralfate oral suspension at discharge prn - Avoid NSAIDS due to thrombocytopenia Acute Severe Pancytopenia 2/2 Chemotherapy induced Myelosuppression - Improving Baseline Hgb 12, Plt 170-240, WBC 5-7. At admit had Hgb 8.4, Plt 12, and WBC 0.78. Absolute reticulocyte count 7.2 and lack of immature granulocytes support that this was due to acute myelosuppression. Toradol was discontinued due to severe thrombocytopenia. Currently Hgb is stable and WBC and Plt continue to trend up. WBC 3.8 and Plt 60. Anticipat e continued improvement over time. 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 Initial chemo was delayed by infection that requi red BKA (02/06/18). C1 epirubicin and ifosfamide with subsequent Neulasta on 02/19/18 and C3 (f inal cycle) 04/24/18. No further chemotherapy is anticipated at this time. 09/19: L foot mass and pain 12/18: MRI showed 8 cm mass 01/17: Biopsy revealed SYT + Synovial Sarcoma; staging chest CT Negative 02/06/18: L Transtibial amputation 02/19/18: C1 epirubicin 30 mg/m^2 and ifosfamide 2.5 mg/m^2 DAILY x4 days -- c/b neutropenic fever 03/12/18: C2 epirubicin and ifosfamide -- c/b surgical wound infection and osteomyelitis (E. Coli Prevotella bivia) and requiring debridement x2 and cefazolin IV plus metronidazole PO until 05/15/18 04/24/18: C3 epirubicin and ifosfamide -- c/b neutropenic fever Plan: - Outpatient follow up with Primary Oncologist Sandra Patel MD on 05/14/18 - Low dose non-contrast CT prior to 05/14 Multi Disc f/u appointment Luis Ruggiero MS4 [facility] COMP [facility] Shaheed Morel MD - 05/08/2018 2:38 PM PDT GM5 Progress Note Subjective/IE: - ANC 1,866 - EGD today with possible erosive esophagitis, bx taken Physical Examination: Last 24 hour min/max Temp: 36.9 C (98.4 F) Temp Min: 36.4 C (97.5 F) Max: 37.4 C (99.3 F) Heart Rate: 79 Pulse Min: 79 Max: 104 Resp: 14 Resp Min: 11 Max: 18 BP: 131/89 BP Min: 116/73 Max: 150/98 SpO2: 98 % SpO2 Min: 95 % Max: 100 % Body mass index is 48.1 kg/m. Intake/Output Summary (Last 24 hours) at 05/08/18 0700 Last data filed at 05/08/18 0510 Gross per 24 hour Intake 3008.33 ml Output 4505 ml Net -1496.67 ml General: NAD. Morbidly-obese middle-aged woman sitting comfortably in hospital bed. an d sister at bedside. HEENT: AT/NC. Sclera anicteric; conjunctiva without injection. Hearing intact to interview. Lungs: Acyanotic; NWOB. Posterior lung ochoa CTAB; no r/r/w. Heart: Non-pallorous. Extremities warm and well-perfused; RRR. S1 and S2; no m/r/g. Abd: Non-distended. BS+. Neuro: Awake, alert, interactive; responses appropriate. Moving all extremities spontaneous ly. Skin/MSK: s/p L BKA. R chest port without erythema, tenderness, or fluctuance. Current Facility-Administered Medications Medication Dose Route Frequency Last Rate ceFAZolin IV 2 gram in dextrose (RTU) 2 g intravenous Q8H Stopped (05/08/18 0845) citalopram (CELEXA) tablet 40 mg 40 mg oral HS famotidine (PEPCID) tablet 20 mg 20 mg oral BID loratadine (CLARITIN) tablet 10 mg 10 mg oral DAILY metroNIDAZOLE (FLAGYL) tablet 500 mg 500 mg oral TID OLANZapine (ZYPREXA) tablet 5 mg 5 mg oral HS polyethylene glycol (MIRALAX) packet 17 g 17 g oral DAILY pregabalin (LYRICA) capsule 225 mg 225 mg oral BID senna-docusate (SENOKOT S) 8.6-50 mg 2 tablet 2 tablet oral BID sucralfate (CARAFATE) suspension 1 g 1 g oral AC and HS Current Facility-Administered Medications Medication Dose Route Frequency Last Rate acetaminophen (TYLENOL) tablet 650 mg 650 mg oral Q4H PRN aluminum-magnesium hydroxide-simethicone (MAALOX; MYLANTA) 200-200-20 mg/5 mL suspensio n 30 mL 30 mL oral Q8H PRN And lidocaine viscous (XYLOCAINE VISCOUS) 2 % mucosal solution 30 mL 30 mL oral Q8H PRN heparin 10 unit/mL IV flush syringe 50 Units 50 Units intravenous PRN heparin 100 unit/mL IV flush 500 Units 500 Units intravenous PRN HYDROmorphone (DILAUDID) injection 0.2-0.4 mg 0.2-0.4 mg intravenous Q4H PRN lidocaine (LMX 4) 4 % cream topical PRN LORazepam (ATIVAN) tablet 0.5 mg 0.5 mg oral Q6H PRN menthol-zinc oxide (CALAZIME) topical paste 0.2%-16.5% topical BID PRN ondansetron (ZOFRAN) tablet 4-8 mg 4-8 mg oral Q12H PRN Or ondansetron ODT (ZOFRAN ODT) tablet 4-8 mg 4-8 mg oral Q12H PRN oxyCODONE (immediate release) (ROXICODONE) tablet 5-15 mg 5-15 mg oral Q4H PRN prochlorperazine (COMPAZINE) tablet 5-10 mg 5-10 mg oral Q6H PRN Or prochlorperazine (COMPAZINE) injection 5-10 mg 5-10 mg intravenous Q6H PRN saliva substitute (MOUTH KOTE) spray oral PRN Laboratory CBC with diff last 72 hours (or 3 results) Recent Labs 05/06/18 1057 05/07/18 0453 05/07/18 2353 WBC 1.07* 2.37* 3.80 HB 8.1* 8.0* 7.8* HCT 23.4* 22.9* 22.6* PLT 15* 32* 60* NEUTROPERC 42.1* 54.9 49.1* LYMPHPERC 42.1* 26.2 22.1 MONOPERC 12.1* 15.2* 19.5* BASOPERC 1.9 0.8 1.6 EOSPERC 0.9* 0.4* 0.3* Recent Labs 04/24/18 0907 04/26/18 0630 05/05/18 2200 05/06/18 1801 05/07/18 0453 05/08/18 0001 NA 142 149* 142 141 142 146* K 3.4 3.5 3.7 3.7 3.8 3.6 CL 102 117* 110* 109* 110* 111* BICARB 30* 24 24 25 23 26 BUN 10 8 12 11 8 6 CR 0.7 0.53* 0.68 0.69 0.73 0.81 GLU 110* 132* 163* 127* 104* 114* CA 9.0 8.1* 8.6 8.4* 8.3* 8.3* AST 23 6 7 -- -- -- ALT <20 10 11 -- -- -- AP 44 32* 43 -- -- -- TBILI 0.5 0.2* 0.4 -- -- -- TP 6.4 5.2* 6.4 -- -- -- ALB 3.5 2.6* 3.1* -- -- -- Imaging - no new imaging IMPRESSION Assessment and Plan 32yoW w/synovial sarcoma s/p BKA c/b osteomyelitis on IV abx receiving adjuvant chemotherap y, admitted for neutropenic fever and odynophagia. Doing well clinically and now s/p EGD. Assessment and Plan # neutropenic fever # odynophagia # mucositis Presented with odynophagia and temperature at home 100.8F. On admission, was 100.4F on admi ssion with ANC 176, broadened abx for MRSA, added antiviral and antifungal coverage. ANC 1,8 66 05/08/2018, now off antiviral and antifungal coverage, abx narrowed to home osteo abx. Yessi sexton for home-going by onc and ID. - off neutropenic precautions - d/c cefepime - d/c vanc - d/c fluc - d/c acycovir - restart home cefazolin - continue home metronidazole - onc following, appreciate recs - ID following, appreciate recs - GI following, appreciate recs # osteomyelitis of L BKA site On 7-week course of IV abx. - abx as above # pain management # phantom limb pain Stable on current regimen. - cont APAP 650 mg Q4 PRN - cont home pregabalin - cont hydromorphone 0.2-0.4 mg Q4 PRN for severe pain # pancytopenia Secondary to recent chemotherapy. - trend CBC - transfuse plt>10, hgb>7 Stable/Chronic Problems # nausea due to chemotherapy - compazine 1st line - lorazepam 2nd line - ondansetron 3rd line # anxiety Stable on current regimen. - cont home citalopram - cont home lorazepam - cont home olanzapine ### I have staffed this case with the attending physician. Shaheed Adams MD KAMLESH Pager [phone] Resident Physician PGY-1 Anesthesiology uzie Rojo MD - 01/2018 2:05 PM PDT GENERAL INTERNAL MEDICINE FACULTY PROGRESS NOTE - GM 5 Attending Physician: Suzie Rojo MD Hospital Day: 3 PCP: Santo Gooden MD Patient's Name: Tati Cage Today's Date: 05/08/2018 I personally interviewed the patient, performed the romero elements of the physical examinatio n, and personally formulated the assessment and plan with the resident. I agree with Dr. Ozzie lynch's documentation, except as noted or expanded upon below. Current Medications Current Facility-Administered Medications Medication Dose Route Frequency Last Rate ceFAZolin IV 2 gram in dextrose (RTU) 2 g intravenous Q8H Stopped (05/08/18 0845) citalopram (CELEXA) tablet 40 mg 40 mg oral HS famotidine (PEPCID) tablet 20 mg 20 mg oral BID loratadine (CLARITIN) tablet 10 mg 10 mg oral DAILY metroNIDAZOLE (FLAGYL) tablet 500 mg 500 mg oral TID OLANZapine (ZYPREXA) tablet 5 mg 5 mg oral HS polyethylene glycol (MIRALAX) packet 17 g 17 g oral DAILY pregabalin (LYRICA) capsule 225 mg 225 mg oral BID senna-docusate (SENOKOT S) 8.6-50 mg 2 tablet 2 tablet oral BID sucralfate (CARAFATE) suspension 1 g 1 g oral AC and HS Current Facility-Administered Medications Medication Dose Route Frequency Last Rate acetaminophen (TYLENOL) tablet 650 mg 650 mg oral Q4H PRN aluminum-magnesium hydroxide-simethicone (MAALOX; MYLANTA) 200-200-20 mg/5 mL suspensio n 30 mL 30 mL oral Q8H PRN And lidocaine viscous (XYLOCAINE VISCOUS) 2 % mucosal solution 30 mL 30 mL oral Q8H PRN heparin 10 unit/mL IV flush syringe 50 Units 50 Units intravenous PRN heparin 100 unit/mL IV flush 500 Units 500 Units intravenous PRN HYDROmorphone (DILAUDID) injection 0.2-0.4 mg 0.2-0.4 mg intravenous Q4H PRN lidocaine (LMX 4) 4 % cream topical PRN LORazepam (ATIVAN) tablet 0.5 mg 0.5 mg oral Q6H PRN menthol-zinc oxide (CALAZIME) topical paste 0.2%-16.5% topical BID PRN ondansetron (ZOFRAN) tablet 4-8 mg 4-8 mg oral Q12H PRN Or ondansetron ODT (ZOFRAN ODT) tablet 4-8 mg 4-8 mg oral Q12H PRN oxyCODONE (immediate release) (ROXICODONE) tablet 5-15 mg 5-15 mg oral Q4H PRN prochlorperazine (COMPAZINE) tablet 5-10 mg 5-10 mg oral Q6H PRN Or prochlorperazine (COMPAZINE) injection 5-10 mg 5-10 mg intravenous Q6H PRN saliva substitute (MOUTH KOTE) spray oral PRN ASSESSMENT/PLAN Problem List: 1. Neutropenic fever 2. Pancytopenia 3. Odynophagia and dysphagia 4. Esophageal ulcer 5. Chest pain -resolved 6. Synovial sarcoma s/p recent L BKA on chemo 7. Anxiety Ms. Cage is a 32 y/o lady with anxiety and synovial sarcoma s/p recent L BKA on chemo admit abhilash with neutropenic fever in the setting of odynophagia and dysphagia and found to have an esophageal ulcer. Underwent EGD today. Etiology of her ulcer may be related to reflux but biopsies taken and pending. Continue famotidine BID. Discontinue K+ repletion and monitor serum K+. Will discus s with ID and Oncology etiology of her neutropenic fever and plan for anti-microbials. Antic ipate discharge in am if remains afebrile, clinically stable and with counts recovering. Mot her and aunt at bedside and updated. Appreciate involvement of ID, Oncology and GI. SUZIE ROJO MD Pager - [phone] reinsurance accountant Director, Clinical Hospitalist Service Clinical and Medicine Teaching Hospitalist Services [facility] I have spent more than 35 minutes with the patient of which more than 50% was spent veterans' counselor ing regarding ulcer. Caitlin Maciel M D - 05/08/2018 8:52 AM PDTBrief GI Procedure Note 05/08/2018 GI procedure performed. Procedure(s): EGD Please refer to GI procedure note imported under Procedures tab in Chart Review for full de tails of procedure, impression and recommendations. Caitlin Quiroz MD Gastroenterology Pager [phone] Klaus Maciel MD - 05/08/2018 8:19 AM PDTFormatting of this note might be different from the origin al. PRE PROCEDURE NOTE: MR# [id number] Subjective: Tati Cage is a 32 y.o. female who presents today for a GI procedure. Patient History Reviewed Medications reviewed Allergies: Allergies as of 05/05/2018 - Fully Reviewed 05/05/2018 Allergen Reaction Noted Chlorhexidine Rash 03/12/2018 Demerol [meperidine hcl] Pruritus 01/15/2018 Morphine Pruritus 01/15/2018 Pt NPO for 12 hrs. ROS: All others negative. Objective: Vital Signs: BP 131/79 | Pulse 80 | Temp 36.7 C (98.1 F) | RR 16 | Wt 143.5 kg (316 lb 5.8 oz) | SpO2 98% | BMI 48.1 kg/(m^2) Neuro: Patient oriented X3. Mental status clear and intact Mallampati Score: II Neck Neck supple. No adenopathy Respiratory: negative findings: no chest deformities noted, normal diaphragmatic excursion Cardiovascular: peripheral pulses are wnl, no edema Abdomen: nontender, no masses, no organomegaly Impression Patient deemed appropriate candidate for planned procedure and sedation. ASA 3 Plan Proceed with GI procedure PARQ held and all questions addressed. Consent obtained. See procedure note 05/08/2018 Luis Kelly - 05/07/2018 6:05 PM PDT INPATIENT ONCOLOGY PROGRESS NOTE Hospital Day:2 Author; Luis Ruggiero Attending Physician: Suzie Rojo MD ID: Tati Cage is a 32 y.o. 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 Oncology has been consulted regarding neutropenic fever management. Interim History: BAG BAILER for atypical chest pain, determined to be non-cardiac with negative EKG and Troponin. Mary elmore is complaining of ongoing ST that is slightly improved. Primary complaint is of "back-a nd-forth" between NPO and PO. Has had intermittent chest pain since the BAG BAILER. Denies producti ve cough, abdominal pain, fever, n/v, dysuria. ROS: 12 point ROS negative except as documented above. Physical Exam: BP 128/81 | Pulse 98 | Temp 37.3 C (99.1 F) | RR 18 | Wt 143.5 kg (316 lb 5.8 oz) | SpO 2 95% | BMI 48.1 kg/(m^2) Intake/Output Summary (Last 24 hours) at 05/07/18 1809 Last data filed at 05/07/18 1800 Gross per 24 hour Intake 3237.5 ml Output 4562 ml Net -1324.5 ml General: Sitting upright in bed in NAD Neuro: Alert, no gross focal deficits Psych: pleasant, affect appropiate Skin: No rashes HEENT: oral mucous membrane moist without lesions Chest: Breathing comfortably on room air CV: RRR Ext: L BKA Lines: Port site without surrounding erythema/drainage Data: CBC with diff last 72 hours (or 3 results) Recent Labs 05/05/18219905/06/18 1057 05/07/18 0453 WBC 0.78* 1.07* 2.37* HB 8.4* 8.1* 8.0* HCT 24.4* 23.4* 22.9* PLT 12* 15* 32* NEUTROPERC 22.6* 42.1* 54.9 LYMPHPERC 71.6* 42.1* 26.2 MONOPERC 4.4 12.1* 15.2* BASOPERC 0.7 1.9 0.8 EOSPERC 0.7* 0.9* 0.4* Chemistries: Last 72 Hours (or 3 results): Recent Labs 05/05/18219905/06/18 1801 05/07/18 0453 NA 142 141 142 K 3.7 3.7 3.8 CL 110* 109* 110* BICARB 24 25 23 BUN 12 11 8 CR 0.68 0.69 0.73 GLU 163* 127* 104* CA 8.6 8.4* 8.3* MG 2.1 2.0 -- Liver Tests: Last 72 hours (or 3 results) Recent Labs 05/05/182199 AST 7 ALT 11 TBILI 0.4 AP 43 ALB 3.1* TP 6.4 Current Facility-Administered Medications Medication Dose Route Frequency Last Rate acyclovir (ZOVIRAX) 1,000 mg in NaCl 0.9 % (NS) IV 10 mg/kg (Order-Specific) intraveno us Q8H 0 mg (05/07/18 1038) ceFAZolin IV 2 gram in dextrose (RTU) 2 g intravenous Q8H 0 g (05/07/18 1038) citalopram (CELEXA) tablet 40 mg 40 mg oral HS famotidine (PEPCID) tablet 20 mg 20 mg oral BID fluconazole IV 200 mg in NaCl (RTU) 200 mg intravenous Q24H Stopped (05/06/180) loratadine (CLARITIN) tablet 10 mg 10 mg oral DAILY metroNIDAZOLE (FLAGYL) tablet 500 mg 500 mg oral TID OLANZapine (ZYPREXA) tablet 5 mg 5 mg oral HS polyethylene glycol (MIRALAX) packet 17 g 17 g oral DAILY pregabalin (LYRICA) capsule 225 mg 225 mg oral BID senna-docusate (SENOKOT S) 8.6-50 mg 2 tablet 2 tablet oral BID sucralfate (CARAFATE) suspension 1 g 1 g oral AC and HS Current Facility-Administered Medications Medication Dose Route Frequency Last Rate acetaminophen (TYLENOL) tablet 650 mg 650 mg oral Q4H PRN aluminum-magnesium hydroxide-simethicone (MAALOX; MYLANTA) 200-200-20 mg/5 mL suspensio n 30 mL 30 mL oral Q8H PRN And lidocaine viscous (XYLOCAINE VISCOUS) 2 % mucosal solution 30 mL 30 mL oral Q8H PRN heparin 10 unit/mL IV flush syringe 50 Units 50 Units intravenous PRN heparin 100 unit/mL IV flush 500 Units 500 Units intravenous PRN HYDROmorphone (DILAUDID) injection 0.2-0.4 mg 0.2-0.4 mg intravenous Q4H PRN lidocaine (LMX 4) 4 % cream topical PRN LORazepam (ATIVAN) tablet 0.5 mg 0.5 mg oral Q6H PRN ondansetron (ZOFRAN) tablet 4-8 mg 4-8 mg oral Q12H PRN Or ondansetron ODT (ZOFRAN ODT) tablet 4-8 mg 4-8 mg oral Q12H PRN oxyCODONE (immediate release) (ROXICODONE) tablet 5-15 mg 5-15 mg oral Q4H PRN prochlorperazine (COMPAZINE) tablet 5-10 mg 5-10 mg oral Q6H PRN Or prochlorperazine (COMPAZINE) injection 5-10 mg 5-10 mg intravenous Q6H PRN Assessment/Recommendations: Ms. Tati Cage is a 32 y.o. female with stage 3, high risk synovial sarcoma of L mateo t s/p L BKA and 3 rounds of epirubicin/ifofsamide who is currently admitted for neutropenic fever. Oncology has been consulted regarding neutropenic fever management. Low Risk Neutropenic Fever 2/2 epirubicin and ifosfamide - Resolved Esophagitis suspect 2/2 mucositis possible candidal superinfection Initial ANC 180 and Tmax 38.2 (100.8). Only clear potential infection source at this time r emains esophagitis. Her oral exam revealed no oropharyngeal exudate and only mild posterior erythema, but this does not rule out candidal or viral esophagitis. Alternative explanation for sore throat is mucositis, a classic SE of anthracyclines. No signs of GI, pulmonary, ski n, or urinary infections. Currently afebrile with ANC 1300 and slightly improved sore throat. Rapid strep test and CM V PCR both negative. Etiology of esophagitis to be determined 05/08 by upper endoscopy. Recommendations: - D/C cefepime and neutropenic precautions - Resume cefazolin and continue metronidazole for osteomyelitis treatment (end date 05/15) - Continue fluconazole for potential candidal esophagitis until EGD rules out infectious et iology - D/C vancomycin - Upper endoscopy 05/08 evaluate etiology of esophagitis - Dilaudid/morphine IV in addition to topical anesthetics for throat pain - Sucralfate oral suspesion, 1 g before meals and bedtime - Avoid NSAIDS due to thrombocytopenia - F/U on blood cultures Acute Severe Pancytopenia 2/2 Chemotherapy induced Myelosuppression - Improving Baseline Hgb 12, Plt 170-240, WBC 5-7. Presents with Hgb 8.4, Plt 12, and WBC 0.78. Absolut e reticulocyte count 7.2 and lack of immature granulocytes support that this is acute myelos uppression. Toradol was discontinued due to severe thrombocytopenia. Currently Hgb is stable and WBC and Plt are uptrending. WBC 2.37 and Plt 32. Anticipate con tinued improvement over time. 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 Initial chemo was delayed by infection that requi red BKA. Has since completed 3 cycles of epirubicin and ifosfamide with subsequent Neulasta (first line therapy for synovial sarcoma), but has experienced significant complications fol lowing each cycle. Plan: - Outpatient follow up with Primary Oncologist Sandra Patel MD - Low dose non-contrast CT prior to 05/14 Multi Disc f/u appointment Luis Bahman MS4 [facility] COMP NW Chanell Cuenca MD - 05/07/2018 4:32 PM PDT Gastroenterology Progress Note 05/07/2018 IMPRESSION Tati Cage is a 32 yo F with a past medical history significant for Synovial sarcoma of her L leg s/p L BKA on chemotherapy (most recent infusion 04/24/18 with epirubicin and if osfamide), osteomyelitis of her L stump (undergoing current treatment) admitted for febrile neutropenia. GI was consulted given odynophagia and concern for opportunistic infection/esop hagitis. Given her chemotherapy history and neutropenia, CMV, HSV, chacho esophagitis considered. C hemotherapy side effects also considered. Other esophagitis etiologies considered (eg pill e sophagitis as patient is on KCL) but thought less likely in setting of the acute timing of h er symptoms. Patient's counts have recovered today, and initial plan was to perform EGD today - However this was deferred in discussion with oncology given high suspicion for chemotherapy related complication. However, will tentatively consider EGD on 05/08 given higher concern for infect ious etiology per ID colleagues RECOMMENDATIONS 1) NPO after MN 2) tentative plan for EGD on 05/08/18 Thank you for this consult; we will continue to follow. This plan was discussed and formula abhilash with the gastroenterology attending, Dr. Mukesh Crowley MD Gastroenterology Fellow Pager [phone] INTERVAL EVENTS/SUBJECTIVE - patient still w/ sore throat, relieved only by 1 hour with viscous lidocaine. - no fevers o/n - no diarrhea/dysuria. PHYSICAL EXAM BP 133/79 | Pulse 98 | Temp 37.3 C (99.1 F) | RR 18 | Wt 143.5 kg (316 lb 5.8 oz) | SpO 2 96% | BMI 48.1 kg/(m^2): Systolic (24hrs), Av , Min:120 , Max:142 / Diastolic (24hrs ), Av, Min:67, Max:87 Pulse Av.2 Min: 92 Max: 107 Temp Av.1 C (98.8 F) Min: 36.8 C (98.2 F) Max: 37.4 C (99.3 F) Resp Av.7 Min: 16 Max: 18 SpO2 Av.9 % Min: 95 % Max: 100 % GEN: NAD, alert and oriented HEENT: MMM COR: RRR PULM: CTAB ABD: soft, obese, nondistended, nontender to palpation EXT: wwp SKIN: no rashes NEURO: CN2-12 grossly intact LABS Recent Labs 05/05/18219905/06/18 1057 05/07/18 0453 WBC 0.78* 1.07* 2.37* HB 8.4* 8.1* 8.0* HCT 24.4* 23.4* 22.9* PLT 12* 15* 32* NEUTROPERC 22.6* 42.1* 54.9 LYMPHPERC 71.6* 42.1* 26.2 MONOPERC 4.4 12.1* 15.2* BASOPERC 0.7 1.9 0.8 EOSPERC 0.7* 0.9* 0.4* Recent Labs 05/05/18219905/06/18 1801 05/07/18 0453 NA 142 141 142 K 3.7 3.7 3.8 CL 110* 109* 110* BICARB 24 25 23 BUN 12 11 8 CR 0.68 0.69 0.73 CA 8.6 8.4* 8.3* MG 2.1 2.0 -- No components found for: INR FERRITIN (ng/mL) Date Value 03/31/2018 322 (H) Liver Tests: Last 72 hours (or 3 results) Recent Labs 05/05/182199 AST 7 ALT 11 TBILI 0.4 AP 43 ALB 3.1* TP 6.4 IMAGING atel, Joe - 0 05/07/2018 4:26 PM PDT INPATIENT INFECTIOUS DISEASE PROGRESS NOTE ID TEAM: B Patient: Tati Cage PCP: Santo Gooden MD Author: Joe Farah Date of Admission: 05/05/2018 Hospital Day: 2 Chief Complaint: Esophagitis and neutropenic fever ASSESSMENT AND PLAN Assessment: 33 year old female with synovial sarcoma (diagnosed 01/15/2018) s/pleft below knee amputat ion(02/06/2018) [see below], with adjuvant chemotherapy (ifosfamide/epirubicin) started on , most recent therapy on 04/24, with a history of neutropenia (ANC 180) admitted to [facility] with new onset history of sore throat and fevers (100.8 at home) for three days. There is concern for possible esophagitis 2/2 chemotherapy vs chacho vs viral etiology. There was concern of obtaining an EGD as she was neutropenic. However, today her neutrophil count has improved. As we are trying to rule out infection and optimize her antimicrobial m anagement, an EGD would be appropriate at this time to assess for any ulceration or plaque f ormation Problem list: Esophagitis BKA c/b osteomyelitis synovial sarcoma s/p third round of chemotherapy with ifosfamide/epirubicin Obesity Recommendations: 1. Please obtain EGD if GI is amenable to this given her neutrophil count. 2. If EGD is negative, would consider neck and head imaging given her palpable pain 2. Cont. Cefazolin and Flagyl for the remainder of her osteomyelitis treatment regimen Recommendations were communicated directly to the primary team. This patient was staffed [facility] Dr. Ramos, who agrees with the above assessment and plan unless otherwise documented. Joe Farah, [facility] P SUBJECTIVE Interval Events: Had two episodes of chest pain--was evaluated and not found to have any ACS symptoms. Trops and EKG negative S: Per the patient, she reports she is feeling much less pain today, however, retorts she h as not eaten or had any liquid as she is NPO and this is what aggravates the pain. She does note, however, she has pain that is exacerbated in her neck when she pushes her throat. Denied: Fevers/Chills N/V/D Abdominal Pain SOB/Cough/Chest pain OBJECTIVE Physical exam: Last Vitals: BP 133/79 | Pulse 98 | Temp 37.3 C (99.1 F) | RR 18 | Wt 143.5 kg (316 lb 5.8 oz) | SpO2 96% | BMI 48.1 kg/(m^2) 24 Hour Vital Min/Max: Systolic (24hrs), Av , Min:120 , Max:142 Diastolic (24hrs), Av, Min:67, Max:87 Pulse Min: 92 Max: 107 Temp Min: 36.8 C (98.2 F) Max: 37.4 C (99.3 F) Resp Min: 16 Max: 18 SpO2 Min: 95 % Max: 100 % Intake/Output Summary (Last 24 hours) at 05/07/18 1626 Last data filed at 05/07/18 1300 Gross per 24 hour Intake 3720 ml Output 4167 ml Net -447 ml General: NAD, laying in bed, watching TV with her family HEENT: No scleral icterus, no conjunctival injection. Normal oral mucosa. Respiratory: Normal respiratory effort; clear to auscultation bilaterally; no wheezes, no c rackles. Cardiovascular: Regular Rhythm, normal rate; no murmurs; peripheral pulses are symmetric. GI: Soft,nontender, non-distended; normal bowel sounds. Extremities: Full ROM, no edema Lymph Nodes: no appreciable lymphadenopathy Skin: no rashes. Stump wound clear, dry and intact. Most lateral edge with dried, crusting skin present. Port access site without any erythema Neuro: Alert, oriented x 3, no focal neurological deficits Lines: peripherals x 2 Antimicrobial Medications Antibiotics Start Date Stop Date Comments: acyclovir 05/06 fluconazole 05/06 05/07 vancomycin 05/06 05/07 cefepime 05/05 05/07 Flagyl 05/05 Cefazolin 05/07 Microbiology Data: 05/06 Urine culture: NGTD 05/06 Blood culture x 2: NGTD 03/27 cultures: E. Coli x 5 cultures. 03/24: E. Coli, prevotella bivia, enterococcus faecalis. . Blood culture 03/23: NGx2 New Imaging Since Last ID Note: None Laboratory Data: Recent Labs 05/05/18219905/06/18 1057 05/07/18 0453 WBC 0.78* 1.07* 2.37* RBC 2.75* 2.65* 2.55* HB 8.4* 8.1* 8.0* HCT 24.4* 23.4* 22.9* PLT 12* 15* 32* NEUTROPERC 22.6* 42.1* 54.9 LYMPHPERC 71.6* 42.1* 26.2 MONOPERC 4.4 12.1* 15.2* BASOPERC 0.7 1.9 0.8 EOSPERC 0.7* 0.9* 0.4* Recent Labs 05/05/18219905/06/18 1801 05/07/18 0453 NA 142 141 142 K 3.7 3.7 3.8 CL 110* 109* 110* BICARB 24 25 23 BUN 12 11 8 CR 0.68 0.69 0.73 GLU 163* 127* 104* CA 8.6 8.4* 8.3* Lab Results Lab Test Name Results Date/Time AST 7 05/05/18 AST 23 04/24/18 ALT 11 05/05/18 ALT <20 04/24/18 AP 43 05/05/18 AP 44 04/24/18 TBILI 0.4 05/05/18 TBILI 0.5 04/24/18 TP 6.4 05/05/18 TP 6.4 04/24/18 ALB 3.1 05/05/18 ALB 3.5 04/24/18 Lab Results Lab Test Name Results Date/Time APTT 29.5 03/31/18 FIBRINOGEN 471 03/31/18 Lab Results Lab Test Name Value Date ESR 102 03/23/2018 Lab Results Lab Test Name Value Date CRP 166.0 03/23/2018 Medications: Current Facility-Administered Medications Medication Dose Route Frequency acetaminophen (TYLENOL) tablet 650 mg 650 mg oral Q4H PRN acyclovir (ZOVIRAX) 1,000 mg in NaCl 0.9 % (NS) IV 10 mg/kg (Order-Specific) intraveno us Q8H aluminum-magnesium hydroxide-simethicone (MAALOX; MYLANTA) 200-200-20 mg/5 mL suspensio n 30 mL 30 mL oral Q8H PRN And lidocaine viscous (XYLOCAINE VISCOUS) 2 % mucosal solution 30 mL 30 mL oral Q8H PRN ceFAZolin IV 2 gram in dextrose (RTU) 2 g intravenous Q8H citalopram (CELEXA) tablet 40 mg 40 mg oral HS famotidine (PEPCID) tablet 20 mg 20 mg oral BID fluconazole IV 200 mg in NaCl (RTU) 200 mg intravenous Q24H heparin 10 unit/mL IV flush syringe 50 Units 50 Units intravenous PRN heparin 100 unit/mL IV flush 500 Units 500 Units intravenous PRN HYDROmorphone (DILAUDID) injection 0.2-0.4 mg 0.2-0.4 mg intravenous Q4H PRN lactated Ringers IV 100 mL/hr intravenous CONTINUOUS lidocaine (LMX 4) 4 % cream topical PRN loratadine (CLARITIN) tablet 10 mg 10 mg oral DAILY LORazepam (ATIVAN) tablet 0.5 mg 0.5 mg oral Q6H PRN metroNIDAZOLE (FLAGYL) tablet 500 mg 500 mg oral TID OLANZapine (ZYPREXA) tablet 5 mg 5 mg oral HS ondansetron (ZOFRAN) tablet 4-8 mg 4-8 mg oral Q12H PRN Or ondansetron ODT (ZOFRAN ODT) tablet 4-8 mg 4-8 mg oral Q12H PRN oxyCODONE (immediate release) (ROXICODONE) tablet 5-15 mg 5-15 mg oral Q4H PRN polyethylene glycol (MIRALAX) packet 17 g 17 g oral DAILY pregabalin (LYRICA) capsule 225 mg 225 mg oral BID prochlorperazine (COMPAZINE) tablet 5-10 mg 5-10 mg oral Q6H PRN Or prochlorperazine (COMPAZINE) injection 5-10 mg 5-10 mg intravenous Q6H PRN senna-docusate (SENOKOT S) 8.6-50 mg 2 tablet 2 tablet oral BID sucralfate (CARAFATE) suspension 1 g 1 g oral AC and HS Associated attestation - Parul Ramos MD - 05/07/2018 9:45 PM PDTINFECTIOUS DISEASES AT TENDING ATTESTATION A student assisted with documenting this service. I saw the patient and reviewed and verif ied all information documented by the medical student and made modifications to such informa tion, when appropriate. Tati Cage is a 32 y.o. 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 In discussing with the patient today, she continues to endorse odynophagia. Though of note she did state that she had tenderness previously with palpation of the anterior neck and ach ing of the sides of the neck. Given her odynophagia, EGD would be illustrative. If no abnorm alities are found, would investigate broader differential of neck pain outside of esophagiti s. See Student Doctor Gagan's note for additional details. Parul Ramos MD, [facility] Director Business Integration Infectious Diseases Pager: [phone] Date of service : 05/07/2018 ID service General ID - [id number] Shaheed Adams MD - 05/07/2018 1:40 PM PDTFormatting of this note might be different from e original. GM5 Progress Note Subjective/IE: - additional episode of non-cardiac chest pain overnight without significant EKG findings o r troponinemia - AF VSS Physical Examination: Last 24 hour min/max Temp: 37.3 C (99.1 F) Temp Min: 36.8 C (98.2 F) Max: 37.4 C (99.3 F) Heart Rate: 98 Pulse Min: 84 Max: 107 Resp: 18 Resp Min: 16 Max: 18 BP: 133/79 BP Min: 120/67 Max: 142/75 SpO2: 96 % SpO2 Min: 95 % Max: 100 % Body mass index is 48.1 kg/m. Intake/Output Summary (Last 24 hours) at 05/07/18 0700 Last data filed at 05/07/18 0640 Gross per 24 hour Intake 3830 ml Output 3367 ml Net 463 ml General: NAD. Morbidly-obese middle-aged woman sitting comfortably in hospital bed. an d sister at bedside. HEENT: AT/NC. Sclera anicteric; conjunctiva without injection. Hearing intact to interview. Lungs: Acyanotic; NWOB. Posterior lung ochoa CTAB; no r/r/w. Heart: Non-pallorous. Extremities warm and well-perfused; RRR. S1 and S2; no m/r/g. Abd: Non-distended. BS+. Neuro: Awake, alert, interactive; responses appropriate. Moving all extremities spontaneous ly. Skin/MSK: s/p L BKA. R chest port without erythema, tenderness, or fluctuance. Current Facility-Administered Medications Medication Dose Route Frequency Last Rate acyclovir (ZOVIRAX) 1,000 mg in NaCl 0.9 % (NS) IV 10 mg/kg (Order-Specific) intraveno us Q8H Stopped (05/07/18 1038) ceFAZolin IV 2 gram in dextrose (RTU) 2 g intravenous Q8H Stopped (05/07/18 1038) citalopram (CELEXA) tablet 40 mg 40 mg oral HS famotidine (PEPCID) tablet 20 mg 20 mg oral BID fluconazole IV 200 mg in NaCl (RTU) 200 mg intravenous Q24H Stopped (05/06/18 2130) loratadine (CLARITIN) tablet 10 mg 10 mg oral DAILY metroNIDAZOLE (FLAGYL) tablet 500 mg 500 mg oral TID OLANZapine (ZYPREXA) tablet 5 mg 5 mg oral HS polyethylene glycol (MIRALAX) packet 17 g 17 g oral DAILY potassium chloride SR (K-DUR) tablet 40 mEq 40 mEq oral DAILY pregabalin (LYRICA) capsule 225 mg 225 mg oral BID senna-docusate (SENOKOT S) 8.6-50 mg 2 tablet 2 tablet oral BID sucralfate (CARAFATE) suspension 1 g 1 g oral AC and HS Current Facility-Administered Medications Medication Dose Route Frequency Last Rate acetaminophen (TYLENOL) tablet 650 mg 650 mg oral Q4H PRN aluminum-magnesium hydroxide-simethicone (MAALOX; MYLANTA) 200-200-20 mg/5 mL suspensio n 30 mL 30 mL oral Q8H PRN And lidocaine viscous (XYLOCAINE VISCOUS) 2 % mucosal solution 30 mL 30 mL oral Q8H PRN heparin 10 unit/mL IV flush syringe 50 Units 50 Units intravenous PRN heparin 100 unit/mL IV flush 500 Units 500 Units intravenous PRN HYDROmorphone (DILAUDID) injection 0.2-0.4 mg 0.2-0.4 mg intravenous Q4H PRN lidocaine (LMX 4) 4 % cream topical PRN LORazepam (ATIVAN) tablet 0.5 mg 0.5 mg oral Q6H PRN ondansetron (ZOFRAN) tablet 4-8 mg 4-8 mg oral Q12H PRN Or ondansetron ODT (ZOFRAN ODT) tablet 4-8 mg 4-8 mg oral Q12H PRN oxyCODONE (immediate release) (ROXICODONE) tablet 5-15 mg 5-15 mg oral Q4H PRN prochlorperazine (COMPAZINE) tablet 5-10 mg 5-10 mg oral Q6H PRN Or prochlorperazine (COMPAZINE) injection 5-10 mg 5-10 mg intravenous Q6H PRN Laboratory CBC with diff last 72 hours (or 3 results) Recent Labs 05/05/18219905/06/18 1057 05/07/18 0453 WBC 0.78* 1.07* 2.37* HB 8.4* 8.1* 8.0* HCT 24.4* 23.4* 22.9* PLT 12* 15* 32* NEUTROPERC 22.6* 42.1* 54.9 LYMPHPERC 71.6* 42.1* 26.2 MONOPERC 4.4 12.1* 15.2* BASOPERC 0.7 1.9 0.8 EOSPERC 0.7* 0.9* 0.4* Recent Labs 04/24/18 0907 04/26/18 0630 05/05/18219905/06/18 1801 05/07/18 0453 NA 142 149* 142 141 142 K 3.4 3.5 3.7 3.7 3.8 CL 102 117* 110* 109* 110* BICARB 30* 24 24 25 23 BUN 10 8 12 11 8 CR 0.7 0.53* 0.68 0.69 0.73 GLU 110* 132* 163* 127* 104* CA 9.0 8.1* 8.6 8.4* 8.3* AST 23 6 7 -- -- ALT <20 10 11 -- -- AP 44 32* 43 -- -- TBILI 0.5 0.2* 0.4 -- -- TP 6.4 5.2* 6.4 -- -- ALB 3.5 2.6* 3.1* -- -- Imaging - no new imaging IMPRESSION 32yoW w/synovial sarcoma s/p BKA c/b osteomyelitis on IV abx receiving adjuvant chemotherap y, admitted for neutropenic fever and odynophagia. Assessment and Plan # neutropenic fever # odynophagia # probable mucositis # possible chacho esophagitis # possible HSV esophagitis Presented with odynophagia and temperature at home 100.8F, was 100.4F on admission with ANC 176. Continued home abx, broadened for MRSA, added antiviral coverage. ANC 1300 05/07/2018, d ecreasing abx regimen in consultation with ID and onc. - d/c neutropenic precautions - d/c cefepime - restart home cefazolin, continue home metronidazole - d/c vanc - cont fluc - cont acycovir - consider EGD for bx - onc following, appreciate recs - ID following, appreciate recs - GI following, appreciate recs # pancytopenia Secondary to recent chemotherapy. - trend CBC - transfuse plt>10, hgb>7 # pain management # phantom limb pain Stable on current regimen. - cont APAP 650 mg Q4 PRN - cont home pregabalin - cont hydromorphone 0.2-0.4 mg Q4 PRN for severe pain # anxiety Stable on current regimen. - cont home citalopram - cont home lorazepam - cont home olanzapine # nausea due to chemotherapy - compazine 1st line - lorazepam 2nd line - ondansetron 3rd line ### I have staffed this case with the attending physician. Shaheed Adams MD [facility] Pager [phone] Resident Physician PGY-1 Anesthesiology uzie Rojo MD - 12/2017 12:06 PM PDT GENERAL INTERNAL MEDICINE FACULTY PROGRESS NOTE - GM 5 Attending Physician: Suzie Rojo MD Hospital Day: 2 PCP: Santo Gooden MD Patient's Name: Tati Cage Today's Date: 05/07/2018 I personally interviewed the patient, performed the romero elements of the physical examinatio n, and personally formulated the assessment and plan with the resident. I agree with Dr. Ozzie lynch's documentation, except as noted or expanded upon below. Current Medications Current Facility-Administered Medications Medication Dose Route Frequency Last Rate acyclovir (ZOVIRAX) 1,000 mg in NaCl 0.9 % (NS) IV 10 mg/kg (Order-Specific) intraveno us Q8H Stopped (05/07/18 1038) ceFAZolin IV 2 gram in dextrose (RTU) 2 g intravenous Q8H Stopped (05/07/18 1038) citalopram (CELEXA) tablet 40 mg 40 mg oral HS famotidine (PEPCID) tablet 20 mg 20 mg oral BID fluconazole IV 200 mg in NaCl (RTU) 200 mg intravenous Q24H Stopped (05/06/180) loratadine (CLARITIN) tablet 10 mg 10 mg oral DAILY metroNIDAZOLE (FLAGYL) tablet 500 mg 500 mg oral TID OLANZapine (ZYPREXA) tablet 5 mg 5 mg oral HS polyethylene glycol (MIRALAX) packet 17 g 17 g oral DAILY potassium chloride SR (K-DUR) tablet 40 mEq 40 mEq oral DAILY pregabalin (LYRICA) capsule 225 mg 225 mg oral BID senna-docusate (SENOKOT S) 8.6-50 mg 2 tablet 2 tablet oral BID sucralfate (CARAFATE) suspension 1 g 1 g oral AC and HS Current Facility-Administered Medications Medication Dose Route Frequency Last Rate acetaminophen (TYLENOL) tablet 650 mg 650 mg oral Q4H PRN aluminum-magnesium hydroxide-simethicone (MAALOX; MYLANTA) 200-200-20 mg/5 mL suspensio n 30 mL 30 mL oral Q8H PRN And lidocaine viscous (XYLOCAINE VISCOUS) 2 % mucosal solution 30 mL 30 mL oral Q8H PRN heparin 10 unit/mL IV flush syringe 50 Units 50 Units intravenous PRN heparin 100 unit/mL IV flush 500 Units 500 Units intravenous PRN HYDROmorphone (DILAUDID) injection 0.2-0.4 mg 0.2-0.4 mg intravenous Q4H PRN lidocaine (LMX 4) 4 % cream topical PRN LORazepam (ATIVAN) tablet 0.5 mg 0.5 mg oral Q6H PRN ondansetron (ZOFRAN) tablet 4-8 mg 4-8 mg oral Q12H PRN Or ondansetron ODT (ZOFRAN ODT) tablet 4-8 mg 4-8 mg oral Q12H PRN oxyCODONE (immediate release) (ROXICODONE) tablet 5-15 mg 5-15 mg oral Q4H PRN prochlorperazine (COMPAZINE) tablet 5-10 mg 5-10 mg oral Q6H PRN Or prochlorperazine (COMPAZINE) injection 5-10 mg 5-10 mg intravenous Q6H PRN ASSESSMENT/PLAN Problem List: 1. Neutropenic fever 2. Pancytopenia 3. Odynophagia and dysphagia 4. Chest pain -resolved 5. Synovial sarcoma s/p recent L BKA on chemo 6. Anxiety Ms. Cage is a 32 y/o lady with anxiety and synovial sarcoma s/p recent L BKA on chemo admit abhilash with neutropenic fever in setting of odynophagia and dysphagia. Opportunistic infection with infectious esophagitis (HSV, CMV, chacho) vs mucositis as tox icity from chemo vs pill esophagitis on differential. Awaiting further recommendations from ID, Oncology and GI regarding next steps, including whether to pursue EGD. Continue IVF unti l can advance diet. Will evaluate if needs to remain on KCL or if another route would minimi ze risk of pill esophagitis. Chest pain from overnight resolved. Will continue to monitor closely. Mother and aunt at be dside and updated. Appreciate involvement of ID, Oncology and GI. SUZIE ROJO MD Pager - [phone] reinsurance accountant Director, Clinical Hospitalist Service Clinical and Medicine Teaching Hospitalist Services [facility] I have spent more than 35 minutes with the patient of which more than 50% was spent veterans' counselor ing regarding neutropenic fever. Chanell Cuenca MD - 12/2017 8:46 AM PDT Pre Sedation Endoscopy Note: Subjective: Tati Cage is a 32 y.o. female presents today for Upper endoscopy H&P and/or gastroenterology/hepatology consult note was reviewed within 24 hours of this pr ocedure.No significant change to health since initial assessment unless noted here. PARQ held and patient agreeable to proceeding with above procedure. Planned level of sedation: moderate (conscious) sedation. Consent obtained and is in chart. NPO since 7am (1x sip of gatorade) Airway Assessment: II 3E Objective: Vital Signs: BP 120/67 | Pulse 97 | Temp 37.2 C (99 F) | RR 18 | Wt 143.5 kg (316 lb 5. 8 oz) | SpO2 98% | BMI 48.1 kg/(m^2) Neuro: patient is oriented X3. Mental status clear and intact Neck Neck supple. No adenopathy Respiratory Lungs clear to auscultation bilaterally with good air exchange Cardiac Regular Rate and Rhythm. Abdomen: soft, normal active bowel sounds, nontender, no masses, no organomegaly Medications: Meds reviewed Allergies: Allergies as of 05/05/2018 - Fully Reviewed 05/05/2018 Allergen Reaction Noted Chlorhexidine Rash 03/12/2018 Demerol [meperidine hcl] Pruritus 01/15/2018 Morphine Pruritus 01/15/2018 See procedure note 05/07/2018 Chanell Crowley MD Fellow, Gastroenterology and Hepatology Pager: [phone] documented in this enco unter Plan of Treatment +--------+ + + + + | Date | Type | Specialty | Care Team | Description | +--------+ + + + + | 03/25/ | Appointment | Radiology | Sandra Patel MD | | | 2018 | | | [address] | | | | | | [place], [place] | | | | | | [address] | | | | | | [phone] | | | | | | | | +--------+ + + + + | 03/25/ | Office | Orthopedics | Lynda Basurto, | | | 2019 | Visit | | [address] | | | | | | [address] | | | | | | [facility] [place] | | | | | | [address] | | | | | | [phone] | | | | | | | | +--------+ + + + + | 03/25/ | Office | Hematology & | Sandra Patel MD | | | 2018 | Visit | Oncology | [address] | | | | | | [place], [place] | | | | | | [address] | | | | | | [phone] | | | | | | | | +--------+ + + + + documented as of this encounter Procedures + +--------+ + + + | Procedure Name | Priori | Date/Time | Associated Diagnosis | Comments | | | ty | | | | + +--------+ + + + | US SOFT TISSUE HEAD | Routin | 05/09/2018 | | Results for this | | & NECK | e | 10:12 AM | | procedure are in the | | | | PDT | | results section. | + +--------+ + + + | VANCOMYCIN, TROUGH | Routin | 05/09/2018 | | Results for this | | | e | 12:36 AM | | procedure are in the | | | | PDT | | results section. | + +--------+ + + + | BASIC METABOLIC SET | Routin | 05/09/2018 | | Results for this | | (NA, K, CL, TCO2, | e | 12:36 AM | | procedure are in the | | BUN, CR, GLU, CA) | | PDT | | results section. | + +--------+ + + + | FREE T4 | Routin | 05/09/2018 | | Results for this | | | e | 12:36 AM | | procedure are in the | | | | PDT | | results section. | + +--------+ + + + | TSH | Routin | 05/09/2018 | | Results for this | | | e | 12:36 AM | | procedure are in the | | | | PDT | | results section. | + +--------+ + + + | RBC MORPHOLOGY | Routin | 05/09/2018 | | Results for this | | | e | 12:20 AM | | procedure are in the | | | | PDT | | results section. | + +--------+ + + + | CBC AND AUTO DIFF | Routin | 05/09/2018 | | Results for this | | | e | 12:20 AM | | procedure are in the | | | | PDT | | results section. | + +--------+ + + + | MANUAL DIFFERENTIAL | Routin | 05/09/2018 | | Results for this | | | e | 12:20 AM | | procedure are in the | | | | PDT | | results section. | + +--------+ + + + | CBC, WITH | Routin | 05/09/2018 | | Results for this | | DIFFERENTIAL | e | 12:20 AM | | procedure are in the | | | | PDT | | results section. | + +--------+ + + + | SURGICAL PATHOLOGY | Routin | 05/08/2018 | | Results for this | | | e | 1:18 PM | | procedure are in the | | | | PDT | | results section. | + +--------+ + + + | EGD | Routin | 05/08/2018 | | Results for this | | | e | 8:05 AM | | procedure are in the | | | | PDT | | results section. | + +--------+ + + + | BASIC METABOLIC SET | Routin | 05/08/2018 | | Results for this | | (NA, K, CL, TCO2, | e | 12:01 AM | | procedure are in the | | BUN, CR, GLU, CA) | | PDT | | results section. | + +--------+ + + + | RBC MORPHOLOGY | Routin | 05/07/2018 | | Results for this | | | e | 11:53 PM | | procedure are in the | | | | PDT | | results section. | + +--------+ + + + | CBC AND AUTO DIFF | Routin | 05/07/2018 | | Results for this | | | e | 11:53 PM | | procedure are in the | | | | PDT | | results section. | + +--------+ + + + | CBC, WITH | Routin | 05/07/2018 | | Results for this | | DIFFERENTIAL | e | 11:53 PM | | procedure are in the | | | | PDT | | results section. | + +--------+ + + + | STREP GROUP A SCREEN | Routin | 05/07/2018 | | Results for this | | W/REFLEX, SWAB | e | 6:50 AM | | procedure are in the | | | | PDT | | results section. | + +--------+ + + + | RBC MORPHOLOGY | Routin | 05/07/2018 | | Results for this | | | e | 4:53 AM | | procedure are in the | | | | PDT | | results section. | + +--------+ + + + | CBC AND AUTO DIFF | Routin | 05/07/2018 | | Results for this | | | e | 4:53 AM | | procedure are in the | | | | PDT | | results section. | + +--------+ + + + | CBC, WITH | Routin | 05/07/2018 | | Results for this | | DIFFERENTIAL | e | 4:53 AM | | procedure are in the | | | | PDT | | results section. | + +--------+ + + + | TROPONIN I, PLASMA | Routin | 05/07/2018 | | Results for this | | | e | 4:53 AM | | procedure are in the | | | | PDT | | results section. | + +--------+ + + + | BASIC METABOLIC SET | Routin | 05/07/2018 | | Results for this | | (NA, K, CL, TCO2, | e | 4:53 AM | | procedure are in the | | BUN, CR, GLU, CA) | | PDT | | results section. | + +--------+ + + + | TROPONIN I, PLASMA | Routin | 05/06/2018 | | Results for this | | | e | 9:30 PM | | procedure are in the | | | | PDT | | results section. | + +--------+ + + + | 12 LEAD ECG | Routin | 05/06/2018 | | Results for this | | | e | 8:54 PM | | procedure are in the | | | | PDT | | results section. | + +--------+ + + + | CMV PCR | Routin | 05/06/2018 | | Results for this | | QUANTITATION, PLASMA | e | 6:01 PM | | procedure are in the | | | | PDT | | results section. | + +--------+ + + + | TROPONIN I, PLASMA | Routin | 05/06/2018 | | Results for this | | | e | 6:01 PM | | procedure are in the | | | | PDT | | results section. | + +--------+ + + + | BASIC METABOLIC SET | Routin | 05/06/2018 | | Results for this | | (NA, K, CL, TCO2, | e | 6:01 PM | | procedure are in the | | BUN, CR, GLU, CA) | | PDT | | results section. | + +--------+ + + + | MAGNESIUM, PLASMA | Routin | 05/06/2018 | | Results for this | | | e | 6:01 PM | | procedure are in the | | | | PDT | | results section. | + +--------+ + + + | 12 LEAD ECG | Routin | 05/06/2018 | | Results for this | | | e | 4:32 PM | | procedure are in the | | | | PDT | | results section. | + +--------+ + + + | RBC MORPHOLOGY | Routin | 05/06/2018 | | Results for this | | | e | 10:57 AM | | procedure are in the | | | | PDT | | results section. | + +--------+ + + + | CBC AND AUTO DIFF | Routin | 05/06/2018 | | Results for this | | | e | 10:57 AM | | procedure are in the | | | | PDT | | results section. | + +--------+ + + + | CBC, WITH | Routin | 05/06/2018 | | Results for this | | DIFFERENTIAL | e | 10:57 AM | | procedure are in the | | | | PDT | | results section. | + +--------+ + + + | 12 LEAD ECG | Routin | 05/06/2018 | | Results for this | | | e | 10:15 AM | | procedure are in the | | | | PDT | | results section. | + +--------+ + + + | CULTURE, URINE [facility] | Routin | 05/06/2018 | | Results for this | | | e | 12:57 AM | | procedure are in the | | | | PDT | | results section. | + +--------+ + + + | URINE, MICROSCOPIC | Routin | 05/06/2018 | | Results for this | | EXAM | e | 12:57 AM | | procedure are in the | | | | PDT | | results section. | + +--------+ + + + | URINE SCREEN FOR | Routin | 05/06/2018 | | Results for this | | CULTURE | e | 12:57 AM | | procedure are in the | | | | PDT | | results section. | + +--------+ + + + | CULTURE, BLOOD BACTI | Routin | 05/06/2018 | | Results for this | | & YEAST [facility] | e | 12:42 AM | | procedure are in the | | | | PDT | | results section. | + +--------+ + + + | CULTURE, BLOOD BACTI | Routin | 05/06/2018 | | Results for this | | & YEAST | e | 12:42 AM | | procedure are in the | | | | PDT | | results section. | + +--------+ + + + | CULTURE, BLOOD BACTI | Routin | 05/06/2018 | | Results for this | | & YEAST [facility] | e | 12:40 AM | | procedure are in the | | | | PDT | | results section. | + +--------+ + + + | CULTURE, BLOOD BACTI | Routin | 05/06/2018 | | Results for this | | & YEAST | e | 12:40 AM | | procedure are in the | | | | PDT | | results section. | + +--------+ + + + | RETICULOCYTE COUNT | Routin | 05/05/2018 | | Results for this | | | e | 10:00 PM | | procedure are in the | | | | PDT | | results section. | + +--------+ + + + | RBC MORPHOLOGY | Routin | 05/05/2018 | | Results for this | | | e | 10:00 PM | | procedure are in the | | | | PDT | | results section. | + +--------+ + + + | CBC AND AUTO DIFF | Routin | 05/05/2018 | | Results for this | | | e | 10:00 PM | | procedure are in the | | | | PDT | | results section. | + +--------+ + + + | MANUAL DIFFERENTIAL | Routin | 05/05/2018 | | Results for this | | | e | 10:00 PM | | procedure are in the | | | | PDT | | results section. | + +--------+ + + + | INR | Routin | 05/05/2018 | | Results for this | | | e | 10:00 PM | | procedure are in the | | | | PDT | | results section. | + +--------+ + + + | CBC, WITH | Routin | 05/05/2018 | | Results for this | | DIFFERENTIAL | e | 10:00 PM | | procedure are in the | | | | PDT | | results section. | + +--------+ + + + | COMPLETE METABOLIC | Routin | 05/05/2018 | | Results for this | | SET | e | 10:00 PM | | procedure are in the | | (NA,K,CL,CO2,BUN,CRE | | PDT | | results section. | | AT,GLUC,CA,AST,ALT,B | | | | | | AZEEM TOTAL,ALK | | | | | | PHOS,ALB,PROT TOTAL) | | | | | + +--------+ + + + | RETICULOCYTE COUNT, | Routin | 05/05/2018 | | Results for this | | BLOOD | e | 10:00 PM | | procedure are in the | | | | PDT | | results section. | + +--------+ + + + | MAGNESIUM, PLASMA | Routin | 05/05/2018 | | Results for this | | | e | 10:00 PM | | procedure are in the | | | | PDT | | results section. | + +--------+ + + + documented in this encounter Results US SOFT TISSUE HEAD & NECK (05/09/2018 10:12 AM PDT) + + | Specimen | + + | | + + + + + | Narrative | Performed At | + + + | EXAM: US THYROID. HISTORY: neck pain, eval for thyroid | [facility] | | inflammation (infection vs thyroiditis) COMPARISON: No comparison | RADIOLOGY VOICE | | TECHNIQUE: Ultrasound of the thyroid. FINDINGS: Size: Right | RECOGNITION 2 | | lobe 5 x 1.6 x 1.3 cm. Left lobe 4.2 x 1.2 x 1.4 cm. Isthmus | | | to mm in thickness. No abnormal hypervascularity, or | | | heterogeneity to suggest thyroiditis. No focal nodules. Sweep | | | images of the lateral neck show no suspicious lymph nodes. | | | IMPRESSION: Unremarkable study without ultrasonographic evidence | | | of thyroiditis 2015 [employer] Guidelines for Biopsy of Thyroid | | | Nodules Thyroid nodule FNA recommended for: -Nodules at least 1 | | | cm with high suspicion sonographic pattern (strong recommendation). | | | -Nodules at least 1 cm with intermediate suspicion sonographic pattern | | | (strong recommendation). -Nodules at least 1.5 cm with low suspicion | | | sonographic pattern (weak recommendation). Thyroid nodule FNA may | | | be considered for: -Nodules at least 2 cm with very low suspicion | | | sonographic pattern, such as spongiform appearance. Observation also | | | reasonable (weak recommendation). Thyroid nodule FNA not required | | | for: -Nodules that do not meet the above criteria or are purely | | | cystic (strong recommendation). Thyroid, 2016; Sep;26(1):1-133. | | | I have personally reviewed the images and, if necessary, edited the | | | report. I agree with the report as now presented. Final | | | signature: Zeyad Ng MD 05/09/2018 10:19 AM | | | Preliminary: Zeyad Ng MD Dictation initiated: | | | Zeyad Ng MD 05/09/2018 10:18 AM | | + + + + + | Procedure Note | + + | Service Account, Radiant Res In Interface - 05/09/2018 10:20 AM PDT EXAM: US THYROID. | | HISTORY: neck pain, eval for thyroid inflammation (infection vs thyroiditis) | | COMPARISON: No comparison TECHNIQUE: Ultrasound of the thyroid. FINDINGS:Size:Right lobe | | 5 x 1.6 x 1.3 cm. Left lobe 4.2 x 1.2 x 1.4 cm. Isthmus to mm in thickness. No | | abnormal hypervascularity, or heterogeneity to suggest thyroiditis. No focal nodules. | | Sweep images of the lateral neck show no suspicious lymph nodes. IMPRESSION: | | Unremarkable study without ultrasonographic evidence of thyroiditis 2015 [employer] Guidelines | | for Biopsy of Thyroid Nodules Thyroid nodule FNA recommended for:-Nodules at least 1 cm | | with high suspicion sonographic pattern (strong recommendation).-Nodules at least 1 cm | | with intermediate suspicion sonographic pattern (strong recommendation).-Nodules at | | least 1.5 cm with low suspicion sonographic pattern (weak recommendation). Thyroid | | nodule FNA may be considered for:-Nodules at least 2 cm with very low suspicion | | sonographic pattern, such as spongiform appearance. Observation also reasonable (weak | | recommendation). Thyroid nodule FNA not required for:-Nodules that do not meet the above | | criteria or are purely cystic (strong recommendation). Thyroid, (1):1-133. | | I have personally reviewed the images and, if necessary, edited the report. I agree with | | the report as now presented. Final signature: Zeyad Ng MD 05/09/2018 | | 10:19 AM Preliminary: Zeyad Ng MD Dictation initiated: Zeyad Ng MD 05/09/2018 10:18 AM | |IMPRESSION: | | | |Unremarkable study without ultrasonographic evidence of thyroiditis | | | | | |2015 [employer] Guidelines for Biopsy of Thyroid Nodules | | | |Thyroid nodule FNA recommended for: | |-Nodules at least 1 cm with high suspicion sonographic pattern (strong recommendation). | |-Nodules at least 1 cm with intermediate suspicion sonographic pattern (strong recommendati on). | |-Nodules at least 1.5 cm with low suspicion sonographic pattern (weak recommendation). | | | |Thyroid nodule FNA may be considered for: | |-Nodules at least 2 cm with very low suspicion sonographic pattern, such as spongiform appe arance. Observation also reasonable (weak recommendation). | | | |Thyroid nodule FNA not required for: | |-Nodules that do not meet the above criteria or are purely cystic (strong recommendation). | | | |Thyroid, (1):1-133. | | | |I have personally reviewed the images and, if necessary, edited the report. I agree with th e report as now presented. | | | |Final signature: Zeyad Ng MD 05/09/2018 10:19 AM | |Preliminary: Zeyad Ng MD | |Dictation initiated: Zeyad Ng MD 05/09/2018 10:18 AM | + + + +---------+ + + | Performing | Address | City/State/Zipcode | Phone Number | | Organization | | | | + +---------+ + + | [facility] | | | | | VOICE RECOGNITION 2 | | | | + +---------+ + + FREE T4 (05/09/2018 12:36 AM PDT) + +-------+ + + + | Component | Value | Ref Range | Performed | Pathologist | | | | | At | Signature | + +-------+ + + + | FREE T4 | 0.9 | 0.6 - 1.2 ng/dL | [facility] | | | | | | LABORATORY | | | | | | SERVICES, | | | | | | CORE | | + +-------+ + + + + + | Specimen | + + | Blood | + + + + + | Narrative | Performed At | + + + | Please draw vancomycin trough level 30 minutes prior to dose. Thank | [facility] | | you. | LABORATORY | | | SERVICES, CORE | + + + + + + + + | Performing | Address | City/State/Zipcode | Phone Number | | Organization | | | | + + + + + | [facility] | [address] | [place] [address] | | | SERVICES, CORE | [address] | | | + + + + + TSH (05/09/2018 12:36 AM PDT) + +-------+ + + + | Component | Value | Ref Range | Performed | Pathologist | | | | | At | Signature | + +-------+ + + + | TSH | 2.17 | 0.39 - 4.17 | [facility] | | | | | mIU/L | LABORATORY | | | | | | SERVICES, | | | | | | CORE | | + +-------+ + + + + + | Specimen | + + | Blood | + + + + + | Narrative | Performed At | + + + | Please draw vancomycin trough level 30 minutes prior to dose. Thank | [facility] | | you. TSH reference ranges are influenced by a variety of | LABORATORY | | environmental influences, age, gender and ethnicity. The supplied | SERVICES, CORE | | reference limits are based on published values utilizing a similar TSH | | | assay, and should be interpreted with caution. | | + + + + + + + + | Performing | Address | City/State/Zipcode | Phone Number | | Organization | | | | + + + + + | [facility] | [address] | [place] [address] | | | SERVICES, CORE | [address] | | | + + + + + BASIC METABOLIC SET (NA, K, CL, TCO2, BUN, CR, GLU, CA) (05/09/2018 12:36 AM PDT) + +---------+ + + + | Component | Value | Ref Range | Performed | Pathologist | | | | | At | Signature | + +---------+ + + + | GLUCOSE, | 161 (H) | 70 - 99 mg/dL | [facility] | | | PLASMA | | | LABORATORY | | | (LAB) | | | SERVICES, | | | | | | CORE | | + +---------+ + + + | BUN, PLASMA | 5 (L) | 6 - 20 mg/dL | [facility] | | | (LAB) | | | LABORATORY | | | | | | SERVICES, | | | | | | CORE | | + +---------+ + + + | CREATININE | 0.68 | 0.60 - 1.10 | [facility] | | | PLASMA | | mg/dL | LABORATORY | | | (LAB) | | | SERVICES, | | | | | | CORE | | + +---------+ + + + | EGFR | >60 | >60 mL/min | [facility] | | | - | | | LABORATORY | | | NIGERIAN | | | SERVICES, | | | | | | CORE | | + +---------+ + + + | EGFR NON | >60 | >60 mL/min | [facility] | | | -[place] | | | LABORATORY | | | RICAN | | | SERVICES, | | | | | | CORE | | + +---------+ + + + | SODIUM, | 146 (H) | 136 - 145 | [facility] | | | PLASMA | | mmol/L | LABORATORY | | | (LAB) | | | SERVICES, | | | | | | CORE | | + +---------+ + + + | POTASSIUM, | 3.8 | 3.4 - 5.0 | [facility] | | | PLASMA | | mmol/L | LABORATORY | | | (LAB) | | | SERVICES, | | | | | | CORE | | + +---------+ + + + | CHLORIDE, | 112 (H) | 97 - 108 mmol/L | [facility] | | | PLASMA | | | LABORATORY | | | (LAB) | | | SERVICES, | | | | | | CORE | | + +---------+ + + + | TOTAL CO2, | 24 | 21 - 32 mmol/L | [facility] | | | PLASMA | | | LABORATORY | | | (LAB) | | | SERVICES, | | | | | | CORE | | + +---------+ + + + | CALCIUM, | 8.2 (L) | 8.6 - 10.2 | [facility] | | | PLASMA | | mg/dL | LABORATORY | | | (LAB) | | | SERVICES, | | | | | | CORE | | + +---------+ + + + | ANION GAP | 10 | 4 - 11 mmol/L [...] + + | Please draw vancomycin trough level 30 minutes prior to dose. Thank | [facility] | | you. GFR is estimated using the MDRD equation recommended by the | LABORATORY | | National Kidney Disease Education Program. Estimated GFR | SERVICES, CORE | | Interpretive Information: <60 mL/min/1.73 sq | | [...] [facility] | [address] | [place] [address] | | | SERVICES, CORE | [address] | | | + + + + + VANCOMYCIN, TROUGH (05/09/2018 12:36 AM PDT) + +---------+ + + + | Component | Value | Ref Range | Performed | Pathologist | | | | | At | Signature | + +---------+ + + + | VANCOMYCIN, | 1.3 (L) | 10.0 - 20.0 | [facility] | [...] + + | Please draw vancomycin trough level 30 minutes prior to dose. Thank | [facility] | | you. | LABORATORY | | | ANTONI ANGUIANO | + + + + + + + + | Performing | Address | City/State/Zipcode | Phone Number | | Organization | | | | + + + + + | [facility] | [address] | [place] [address] | | | ANTONI ANGUIANO | [address] | | | + + + + + RBC MORPHOLOGY (05/09/2018 12:20 AM PDT) + + + + + [...] [facility] | [address] | [place] [address] | | | SERVICES, ANTONI | [address] | | | + + + + + MANUAL DIFFERENTIAL (05/09/2018 12:20 AM PDT) + + + + + + | Component | Value | Ref Range | Performed | Pathologist | | | | | At | Signature | + + + + + + | NEUTROPHIL | 51.7 | 50.0 - 70.0 % | [facility] | | | % | | | LABORATORY | | | | | | SERVICES, | | | | | | CORE | | + + + + + + | LYMPHOCYTE | 27.6 | 18.0 - 42.0 % | [facility] | | | % | | | LABORATORY | | | | | | SERVICES, | | | | | | CORE | | + + + + + + | MONOCYTE % | 9.5 (H) | 3.5 - 9.0 % | [...] + + + + | IG% | 8.6 (H)Comment: | 0.0 - 1.0 % | [...] + + + + | ATYPICAL | 1.7 (H)Comment: Atypical | 0.0 % | [facility] [...] + + + + | NEUTROPHIL | 1.78 (L) | 1.80 - 7.70 | [facility] | | | # | | K/cu mm | LABORATORY | | | | | | SERVICES, | | | | | | CORE | | + + + + + + | LYMPHOCYTE | 0.95 (L) | 1.00 - 4.80 | [facility] | | | # | | K/cu mm | LABORATORY | | | | | | SERVICES, | | | | | | CORE | | + + + + + + | MONOCYTE # | 0.33 | 0.10 - 0.90 | [facility] | [...] + + + | BASOPHIL # | 0.03 | 0.00 - 0.10 | [facility] | | | | | K/cu mm | LABORATORY | | | | | | SERVICES, | | | | | | CORE | | + + + + + + | IG# | 0.30 (H) | 0.00 - 0.10 | [facility] | | | | | K/cu mm | LABORATORY | | | | | | SERVICES, | | | | | | CORE | | + + + + + + | ATYPICAL | 0.06 | K/cu mm | [facility] | | [...] | + + + + + | [facility] | [address] | [place] [address] | | | SERVICES, CORE | [address] | | | + + + + + CBC AND AUTO DIFF (05/09/2018 12:20 AM PDT) + + + + + + | Component | Value | Ref Range | Performed | Pathologist | | | | | At | Signature | + + + + + + | WHITE CELL | 3.45 (L) | 3.50 - 10.80 | [facility] | | | COUNT | | K/cu mm | LABORATORY | | | | | | SERVICES, | | | | | | CORE | | + + + + + + | RED CELL | 2.47 (L) | 4.00 - 5.20 | [facility] | | | COUNT | | M/cu mm | LABORATORY | | | | | | SERVICES, | | | | | | CORE | | + + + + + + | HEMOGLOBIN | 7.7 (L) | 12.0 - 16.0 | [facility] [...] + + + + | MCV | 91.5 | 80.0 - 100.0 fL | [facility] | | | | | | LABORATORY | | | | | | SERVICES, | | | | | | CORE | | + + + + + + | MCHC | 34.1 | 32.0 - 36.0 | [facility] | | | | | g/dL | LABORATORY | | | | | | SERVICES, | | | | | | CORE | | + + + + + + | RDW SD | 44.1 | 35.1 - 46.3 fL | [facility] | | | | | | LABORATORY | | | | | | SERVICES, | | | | | | CORE | | + + + + + + | PLATELET | 94 (L) | 150 - 400 K/cu | [...] + + + + | NRBC% | 1.7 (H) | 0.0 - 0.3 % | [facility] | | | | | | LABORATORY | | | | | | SERVICES, | | | | | | CORE | | + + + + + + | NRBC# | 0.06 (H) | 0.00 - 0.02 | [facility] [...] [facility] | [address] | [place] [address] | | | SERVICES, CORE | [address] | | | + + + + + SURGICAL PATHOLOGY (05/08/2018 1:18 PM PDT) + + + + + + | Component | Value | Ref Range | Performed | Pathologist | | | | | At | Signature | + + + + + + | Clinical | esophagitis | | [facility] | | | History | | | DEPARTMENT | | | | | | OF | | | | | | PATHOLOGY | | + + + + + + | Final | A. Esophagus, distal | | [facility] | Electronically | | Pathologic | ulcer, biopsy: | | DEPARTMENT | signed by | | Diagnosis | Squamocolumnar mucosa | | OF | Madiha K | | | with ulcer and acute | | PATHOLOGY | DO Ford on | | | inflammation | | | 05/13/2018 at | | | Immunohistochemical | | | 9:26 AM | | | staining for HSV and CMV | | | | | | is negative, GMS is | | | | | | negative for fungal | | | | | | organismsCase seen | | | | | | by:Priscilla Ross, | | | | | | MD | | | | | | | | | | | | Surgical Pathology | | | | | | FellowKrysten Levi DO | | | | | | | | | | | | | | | | | | Pathologist My | | | | | | electronic [...] + + + | Gross | Received is one specimen | | [facility] | | | Description | in formalin labeled | | DEPARTMENT | | | | with the patient's name | | OF | | | | (initials KG) and | | PATHOLOGY | | | | medical record number | | | | | | [id number]. Esophagus, | | | | | | distal esophageal ulcer | | | | | | biopsies: Received | | | | | | labeled "distal | | | | | | esophag-A" are multiple | | | | | | wang, irregular fragments | | | | | | of tissue measuring 0.7 | | | | | | x 0.4 x 0.2 cm in | | | | | | aggregate. The specimen | | | | | | is submitted entirely in | | | | | | cassette A1.(RLW) | | | | + + + [...] Tissue | + + + + + + + | Performing | Address | City/State/Zipcode | Phone Number | | Organization | | | | + + + + + | [facility] | [address] | [place] [address] | | | PATHOLOGY | [address] | | | + + + + + EGD (05/08/2018 8:05 AM PDT) + + | Specimen | + + | | + + + + + | Narrative | Performed At | + + + | MRN: | [facility] | | [id number] Date: 05/08/2018Patient Name: Tati CageOrder #: | ENDOSCOPY | | [id number] of : [id number]: [id number] Type: | | | InpatientRoom: GI 2Procedure: Upper GI | | | endoscopyIndications: Odynophagia; undergoing chemo | | | for sarcoma treatmentProviders: CHANELL CROWLEY MD | | | (Fellow), CAITLIN QUIROZ MD | | | (Doctor), DELVIS WHITE RN | | | (Nurse), JOSÉ ANTONIO GILL | | | (Night Patrol Inspector)Referring MD: MELANIE BATRESequesting | | | Provider: Medicines: Midazolam 8 mg IV, Fentanyl | | | 200 micrograms IVComplications: No immediate | | | complications.Procedure: Pre-Anesthesia | | | Assessment: - ASA Grade | | | Assessment: III - A patient with severe | | | systemic | | | disease. Prior to the | | | procedure, a History and Physical with | | | airway assessment was | | | performed (see patient record), | | | and patient medications and | | | allergies were reviewed. The | | | risks and benefits of the procedure and the sedation | | | options and risks were | | | discussed. All questions were | | | answered and informed consent was obtained. After | | | reviewing the risks and | | | benefits, the patient was deemed | | | in satisfactory condition to | | | undergo the procedure. | | | Immediately prior to administration of medications, the | | | patient was re-assessed for | | | adequacy to receive | | | sedatives. The heart rate, respiratory rate, oxygen | | | saturations, blood pressure, | | | adequacy of pulmonary | | | ventilation, and response to care were monitored | | | throughout the procedure. The | | | physical status of the | | | patient was re-assessed after the | | | procedure. The Olympus | | | GIF-[id number] Endoscope #[id number] was introduced | | | through the mouth, and | | | advanced to the second part of | | | duodenum. The upper GI | | | endoscopy was accomplished | | | without difficulty. The patient tolerated the procedure | | | well.Estimated Blood | | | Loss: Estimated blood loss: none.Findings: The | | | cricopharyngeus, proximal esophagus and mid esophagus were | | | normal. One linear and superficial esophageal ulcer with no | | | bleeding and no stigmata of recent bleeding was found 40 cm | | | from the incisors, a few cm from the GEJ. The lesion was 8 mm | | | in largest dimension. Biopsies were taken with a cold | | | forceps for histology. GEJ at 43 cm The stomach was | | | normal. The examined duodenum was normal.Moderate | | | Sedation: Moderate (conscious) sedation was administered by | | | the endoscopy nurse and supervised by the endoscopist. The | | | following parameters were monitored: oxygen saturation, heart | | | rate, blood pressure, and response to care. Total physician | | | intraservice time was 23 minutes.Impression: - | | | Normal cricopharyngeus, proximal esophagus and mid | | | esophagus without evidence of | | | ulceration, mucosal disease | | | or candidiasis - Single small | | | linear ulcer in the distal esophagus near | | | the GEJ which may be related | | | to reflux, bx taken She has | | | symptomatically improvedRecommendation: - Fu | | | path - Continue symptomatic | | | treatmentCAITLIN QUIROZ MD05/08/2018 8:51:55 [facility] [place] | | | Number of Addenda: 0Note Initiated On: 05/08/2018 8:05 [facility] Letter | | | to: SANTO GOODEN | | + + + + +---------+ + + | Performing | Address | City/State/Zipcode | Phone Number | | Organization | | | | + +---------+ + + | [facility] | | | | + +---------+ + + BASIC METABOLIC SET (NA, K, CL, TCO2, BUN, CR, GLU, CA) (05/08/2018 12:01 AM PDT) + +---------+ + + + | Component | Value | Ref Range | Performed | Pathologist | | | | | At | Signature | + +---------+ + + + | GLUCOSE, | 114 (H) | 70 - 99 mg/dL | [facility] | | | PLASMA | | | LABORATORY | | | (LAB) | | | SERVICES, | | | | | | CORE | | + +---------+ + + + | BUN, PLASMA | 6 | 6 - 20 mg/dL | [facility] [...] | | | LABORATORY | | | NIGERIAN | | | SERVICES, | | | | | | CORE | | + +---------+ + + + | EGFR NON | >60 | >60 mL/min | [facility] | | | -[place] | | | LABORATORY | | | RICAN | | | SERVICES, | | | | | | CORE | | + +---------+ + + + | SODIUM, | 146 (H) | 136 - 145 | [facility] | | | PLASMA | | mmol/L | LABORATORY | | | (LAB) | | | SERVICES, | | | | | | CORE | | + +---------+ + + + | POTASSIUM, | 3.6 | 3.4 - 5.0 | [facility] | [...] + + + | ANION GAP | 9 | 4 - 11 mmol/L [...] the MDRD equation recommended by the | [facility] | | National Kidney Disease Education Program. [...] | + + + + + | [facility] | [address] | [place] [address] | | | SERVICES, CORE | [address] | | | + + + + + RBC MORPHOLOGY (05/07/2018 11:53 PM PDT) + + + + + [...] [facility] | [address] | [place] [address] | | | SERVICES, CORE | [address] | | | + + + + + CBC AND AUTO DIFF (05/07/2018 11:53 PM PDT) + + + + + + | Component | Value | Ref Range | Performed | Pathologist | | | | | At | Signature | + + + + + + | WHITE CELL | 3.80 | 3.50 - 10.80 | [facility] | | | COUNT | | K/cu mm | LABORATORY | | | | | | SERVICES, | | | | | | CORE | | + + + + + + | RED CELL | 2.56 (L) | 4.00 - 5.20 | [facility] | | | COUNT | | M/cu mm | LABORATORY | | | | | | SERVICES, | | | | | | CORE | | + + + + + + | HEMOGLOBIN | 7.8 (L) | 12.0 - 16.0 | [facility] [...] + + + + | MCHC | 34.5 | 32.0 - 36.0 | [facility] | | | | | g/dL | LABORATORY | | | | | | SERVICES, | | | | | | CORE | | + + + + + + | RDW SD | 43.1 | 35.1 - 46.3 fL | [facility] | | | | | | LABORATORY | | | | | | SERVICES, | | | | | | CORE | | + + + + + + | PLATELET | 60 (L)Comment: Macro | 150 - 400 K/cu [...] + + + + | LYMPHOCYTE | 22.1 | 18.0 - 42.0 % | [facility] | | | % | | | LABORATORY | | | | | | SERVICES, | | | | | | CORE | | + + + + + + | MONOCYTE % | 19.5 (H) | 3.5 - 9.0 % | [facility] | | | | | | LABORATORY | | | | | | SERVICES, | | | | | | CORE | | + + + + + + | EOS % | 0.3 (L) | 1.0 - 3.0 % | [facility] | | | | | | LABORATORY | | | | | | SERVICES, | | | | | | CORE | | + + + + + + | BASO % | 1.6 | 0.0 - 2.0 % | [facility] | | | | | | LABORATORY | | | | | | SERVICES, | | | | | | CORE | | + + + + + + | IG% | 7.4 (H)Comment: | 0.0 - 1.0 % | [...] + + + + | NEUTROPHIL | 1.87 | 1.80 - 7.70 | [facility] | | | # | | K/cu mm | LABORATORY | | | | | | SERVICES, | | | | | | CORE | | + + + + + + | LYMPHOCYTE | 0.84 (L) | 1.00 - 4.80 | [facility] | | | # | | K/cu mm | LABORATORY | | | | | | SERVICES, | | | | | | CORE | | + + + + + + | MONOCYTE # | 0.74 | 0.10 - 0.90 | [facility] | [...] + + + | BASO # | 0.06 | 0.00 - 0.10 | [...] [facility] | [address] | [place] [address] | | | SERVICES, CORE | [address] | | | + + + + + STREP GROUP A SCREEN W/REFLEX, SWAB (05/07/2018 6:50 AM PDT) + + + + + + | Component | Value | Ref Range | Performed | Pathologist | | | | | At | Signature | + + + + + + | STREP GROUP | Negative | Negative | [facility] | | | A SCREEN | | | LABORATORY | | | | | | SERVICES, | | | | | | CORE | | + + + + + + + + | Specimen | + + | Swab | + + + + + + + | Performing | Address | City/State/Zipcode | Phone Number | | Organization | | | | + + + + + | [facility] | [address] | [place] [address] | | | SERVICES, CORE | [address] | | | + + + + + RBC MORPHOLOGY (05/07/2018 4:53 AM PDT) + +---------+ + + [...] | + +---------+ + + + | VACUOLATED | Present | | [facility] | | | NEUTS | | | LABORATORY | | | [...] [facility] | [address] | [place] [address] | | | SERVICES, CORE | [address] | | | + + + + + CBC AND AUTO DIFF (05/07/2018 4:53 AM PDT) + + + + + + | Component | Value | Ref Range | Performed | Pathologist | | | | | At | Signature | + + + + + + | WHITE CELL | 2.37 (L) | 3.50 - 10.80 | [facility] | | | COUNT | | K/cu mm | LABORATORY | | | | | | SERVICES, | | | | | | CORE | | + + + + + + | RED CELL | 2.55 (L) | 4.00 - 5.20 | [facility] [...] + + + + | HEMATOCRIT | 22.9 (L) | 36.0 - 46.0 % | [...] + + + | RDW SD | 43.4 | 35.1 - 46.3 fL | [facility] | | | | | | LABORATORY | | | | | | SERVICES, | | | | | | CORE | | + + + + + + | PLATELET | 32 (L)Comment: Macro | 150 - 400 K/cu | [facility] | | | COUNT | platelets present. | mm | LABORATORY | | | | | | SERVICES, | | | | | | CORE | | + + + + + + | MPV | 11.3 | 9.7 - 12.3 fL | [facility] [...] + + + + | NEUTROPHIL | 54.9 | 50.0 - 70.0 % | [facility] | | | % | | | LABORATORY | | | | | | SERVICES, | | | | | | CORE | | + + + + + + | LYMPHOCYTE | 26.2 | 18.0 - 42.0 % | [facility] | | | % | | | LABORATORY | | | | | | SERVICES, | | | | | | CORE | | + + + + + + | MONOCYTE % | 15.2 (H) | 3.5 - 9.0 % | [facility] | | | | | | LABORATORY | | | | | | SERVICES, | | | | | | CORE | | + + + + + + | EOS % | 0.4 (L) | 1.0 - 3.0 % | [facility] | | | | | | LABORATORY | | | | | | SERVICES, | | | | | | CORE | | + + + + + + | BASO % | 0.8 | 0.0 - 2.0 % | [facility] | | | | | | LABORATORY | | | | | | SERVICES, | | | | | | CORE | | + + + + + + | IG% | 2.5 (H)Comment: | 0.0 - 1.0 % | [...] + + + + | NEUTROPHIL | 1.30 (L) | 1.80 - 7.70 | [facility] | | | # | | K/cu mm | LABORATORY | | | | | | SERVICES, | | | | | | CORE | | + + + + + + | LYMPHOCYTE | 0.62 (L) | 1.00 - 4.80 | [facility] | | | # | | K/cu mm | LABORATORY | | | | | | SERVICES, | | | | | | CORE | | + + + + + + | MONOCYTE # | 0.36 | 0.10 - 0.90 | [facility] | [...] + + + | BASO # | 0.02 | 0.00 - 0.10 | [facility] | [...] [facility] | [address] | [place] [address] | | | SERVICES, CORE | [address] | | | + + + + + TROPONIN I, PLASMA (05/07/2018 4:53 AM PDT) + +-------+ + + + | Component | Value | Ref Range | Performed | Pathologist | | | | | At | Signature | + +-------+ + + + | TROPONIN I | 0.02 | <0.80 ng/mL | [facility] | | | | | [...] | + + + + + | [facility] | [address] | [place] [address] | | | SERVICES, CORE | [address] | | | + + + + + BASIC METABOLIC SET (NA, K, CL, TCO2, BUN, CR, GLU, CA) (05/07/2018 4:53 AM PDT) + +---------+ + + + | Component | Value | Ref Range | Performed | Pathologist | | | | | At | Signature | + +---------+ + + + | GLUCOSE, | 104 (H) | 70 - 99 mg/dL | [facility] | | | PLASMA | | | LABORATORY | | | (LAB) | | | SERVICES, | | | | | | CORE | | + +---------+ + + + | BUN, PLASMA | 8 | 6 - 20 mg/dL | [facility] [...] | | | LABORATORY | | | NIGERIAN | | | SERVICES, | | | | | | CORE | | + +---------+ + + + | EGFR NON | >60 | >60 mL/min | [facility] | | | -[place] | | | LABORATORY | | | [place] | | | SERVICES, | | | | | | CORE | | + +---------+ + + + | SODIUM, | 142 | 136 - 145 | [facility] | | | PLASMA | | mmol/L | LABORATORY | | | (LAB) | | | SERVICES, | | | | | | CORE | | + +---------+ + + + | POTASSIUM, | 3.8 | 3.4 - 5.0 | [facility] | [...] + + + | TOTAL CO2, | 23 | 21 - 32 mmol/L | [facility] [...] + + + | ANION GAP | 9 | 4 - 11 mmol/L [...] Interpretive Information: <60 mL/min/1.73 sq | SERVICES, [facility] – [place] | | m Chronic Kidney Disease <15 [...] [facility] | [address] | [place] [address] | | | SERVICES, CORE | [address] | | | + + + + + TROPONIN I, PLASMA (05/06/2018 9:30 PM PDT) + +-------+ + + + | Component | Value | Ref Range | Performed | Pathologist | | | | | At | Signature | + +-------+ + + + | TROPONIN I | 0.02 | <0.80 ng/mL | [facility] | | | | | [...] | + + + + + | [facility] | [address] | [place] [address] | | | SERVICES, CORE | [address] | | | + + + + + 12 LEAD ECG (05/06/2018 8:54 PM PDT) + + + + + + | Component | Value | Ref Range | Performed | Pathologist | | | | | At | Signature | + + + + + + | VENTRICULAR | 102 | bpm | [facility] | | | RATE | | | OF | | | | | | CARDIOLOGY | | + + + + + + | ATRIAL RATE | 103 | ms | [facility] | | | | | | OF | | | | | | CARDIOLOGY | | + + + + + + | P-R | 144 | ms | [facility] | | | INTERVAL | | | OF | | | | | | CARDIOLOGY | | + + + + + + | P AXIS | 35 | deg | [facility] | | | | | | OF | | | | | | CARDIOLOGY | | + + + + + + | QRS | 89 | ms | [facility] | | | DURATION | | | OF | | | | | | CARDIOLOGY | | + + + + + + | QT | 348 | ms | [facility] | | | | | | OF | | | | | | CARDIOLOGY | | + + + + + + | QTCB | 454 | ms | [facility] | | | | | | OF | | | | | | CARDIOLOGY | | + + + + + + | R AXIS | -6 | deg | [facility] | | | | | | OF | | | | | | CARDIOLOGY | | + + + + + + | T AXIS | -1 | deg | [facility] | | | | | | OF | | | | | | CARDIOLOGY | | + + + + + + | ECG | Sinus tachycardia | | [facility] | | | IMPRESSION | | | OF | | | | | | CARDIOLOGY | | + + + + + + | ECG | Borderline T | | [facility] | | | IMPRESSION | abnormalities, inferior | | OF | | | | leads- BORDERLINE ECG - | | CARDIOLOGY | | + + + + + + | ECG | Electronically signed | | [facility] | | | IMPRESSION | by: CLARENCE CASTILLO | | OF | | | | 05-07-2018 15:50:16 | | CARDIOLOGY | | + + [...] + + | [facility] | [address] | [place], [place] | | | CARDIOLOGY | [address] | [address] | | + + + + + CMV PCR QUANTITATION, PLASMA (05/06/2018 6:01 PM PDT) + + + + + + | Component | Value | Ref Range | Performed | Pathologist | | | | | At | Signature | + + + + + + | CMV DNA | Undetected | Undetected, | [facility] | | | QUANTITATIO | | Undetected - | DIAGNOSTIC | | | N BY PCR, | | See Below IU/mL | | | | PLASMA | | | LABORATORIE | | | | | | S | | + + + + + + + + | Specimen | + + | Blood | + + + + + | Narrative | Performed At | + + + | Changes in viral load of less than 2 fold may not reflect true | [facility] | | biological changes and must be interpreted cautiously. High or | DIAGNOSTIC | | serially rising CMV loads may indicate active or impending CMV disease | LABORATORIES | | or poor antiviral therapy response. Undetected results suggest | | | either an absence of CMV viremia or the presence of low-level viremia | | | below the lower sensitivity limit of 200 IU/mL. Reportable range = | | | 200-5,000,000,000 CMV IU/mL of plasma Detection limit: At or below | | | 200 CMV IU/mL This test was developed and its performance | | | characteristics determined by the [facility] | | | [facility]. It has not been cleared or approved by | | | the Food and Drug Administration. FDA approval is not required for | | | clinical use of this test, and therefore validation was done as | | | required under the requirements of the Clinical Laboratory Improvement | | | Act of 1988. The [facility] | | | Diagnostic Center is a fully licensed and/or accredited clinical | | | laboratory under CLIA, CAP, and the [facility]. | | + + + + + + + + | Performing | Address | City/State/Zipcode | Phone Number | | Organization | | | | + + + + + | [facility] | [address] | [place] [address] | | | DIAGNOSTIC | [address] | | | | LABORATORIES | | | | + + + + + MAGNESIUM, PLASMA (05/06/2018 6:01 PM PDT) + +-------+ + + + | Component | Value | Ref Range | Performed | Pathologist | | | | | At | Signature | + +-------+ + + + | MAGNESIUM,P | 2.0 | 1.6 - 2.6 mg/dL | [facility] | | | [facility] | | | LABORATORY | | | | | | SERVICES, | | | | | | CORE | | + +-------+ + + + + + | Specimen | + + | Blood | + + + + + | Narrative | Performed At | + + + | Reference range change effective 04/16/17. | [facility] | | | LABORATORY | | | [address]TONI [address]GUI[address] | + + + + + + + + | Performing | Address | City/State/Zipcode | Phone Number | | Organization | | | | + + + + + | [facility] | [address] | [place] [address] | | | SILVIO, ANTONI | [address] | | | + + + + + BASIC METABOLIC SET (NA, K, CL, TCO2, BUN, CR, GLU, CA) (05/06/2018 6:01 PM PDT) + +---------+ + + + | Component | Value | Ref Range | Performed | Pathologist | | | | | At | Signature | + +---------+ + + + | GLUCOSE, | 127 (H) | 70 - 99 mg/dL | [...] +---------+ + + + | CREATININE | 0.69 | 0.60 - 1.10 | [facility] | | | PLASMA | | mg/dL | LABORATORY | | | (LAB) | | | SERVICES, | | | | | | CORE | | + +---------+ + + + | EGFR | >60 | >60 mL/min | [facility] | | | - | | | LABORATORY | | | NIGERIAN | | | SERVICES, | | | [...] | + + + + + | [facility] | [address] | [place] [address] | | | SERVICES, CORE | [address] | | | + + + + + TROPONIN I, PLASMA (05/06/2018 6:01 PM PDT) + +-------+ + + + | Component | Value | Ref Range | Performed | Pathologist | | | | | At | Signature | + +-------+ + + + | TROPONIN I | <0.02 | <0.80 ng/mL | [facility] | | | | | [...] + + | [facility] | [address] | [place] [address] | | | SERVICES, CORE | [address] | | | + + + + + 12 LEAD ECG (05/06/2018 4:32 PM PDT) + + + + + + | Component | Value | Ref Range | Performed | Pathologist | | | | | At | Signature | + + + + + + | VENTRICULAR | 106 | bpm | [facility] | | | RATE | | | OF | | | | | | CARDIOLOGY | | + + + + + + | ATRIAL RATE | 106 | ms | [facility] | | | | | | OF | | | | | | CARDIOLOGY | | + + + + + + | P-R | 139 | ms | [facility] | | | INTERVAL | | | OF | | | | | | CARDIOLOGY | | + + + + + + | P AXIS | 38 | deg | [facility] | | | | | | OF | | | | | | CARDIOLOGY | | + + + + + + | QRS | 93 | ms | [facility] | | | DURATION | | | OF | | | | | | CARDIOLOGY | | + + + + + + | QT | 340 | ms | [facility] | | | | | | OF | | | | | | CARDIOLOGY | | + + + + + + | QTCB | 451 | ms | [facility] | | | | | | OF | | | | | | CARDIOLOGY | | + + + + + + | R AXIS | -24 | deg | [facility] | | | | | | OF | | | | | | CARDIOLOGY | | + + + + + + | T AXIS | -6 | deg | [facility] | | | | | | OF | | | | | | CARDIOLOGY | | + + + + + + | ECG | Sinus tachycardia | | [facility] | | | IMPRESSION | | | OF | | | | | | CARDIOLOGY | | + + + + + + | ECG | Borderline T | | [facility] | | | IMPRESSION | abnormalities, inferior | | OF | | | | leads- BORDERLINE ECG - | | CARDIOLOGY | | + + + + + + | ECG | Electronically signed | | [facility] | | | IMPRESSION | by: CLARENCE CASTILLO | | OF | | | | 05-07-2018 15:50:18 | | CARDIOLOGY | | + + [...] + + + + + | [facility] | [address] | [place], [place] | | | CARDIOLOGY | [address] | [address] | | + + + + + RBC MORPHOLOGY (05/06/2018 10:57 AM PDT) + + + + + [...] + + + + | ANISOCYTOSI | 2+(25-100cells/HPF) | | [facility] | | | S | | | LABORATORY | | | | | | SERVICES, | | | | | | CORE | | + + + + + + | MICROCYTOSI | 2+(25-100cells/HPF) | | [facility] | | | S [...] [facility] | [address] | [place] [address] | | | SERVICES, CORE | [address] | | | + + + + + CBC AND AUTO DIFF (05/06/2018 10:57 AM PDT) + + + + + + | Component | Value | Ref Range | Performed | Pathologist | | | | | At | Signature | + + + + + + | WHITE CELL | 1.07 (L) | 3.50 - 10.80 | [facility] | | | COUNT | | K/cu mm | LABORATORY | | | | | | SERVICES, | | | | | | CORE | | + + + + + + | RED CELL | 2.65 (L) | 4.00 - 5.20 | [facility] | | | COUNT | | M/cu mm | LABORATORY | | | | | | SERVICES, | | | | | | CORE | | + + + + + + | HEMOGLOBIN | 8.1 (L) | 12.0 - 16.0 | [facility] | | | | | g/dL | LABORATORY | | | | | | SERVICES, | | | | | | CORE | | + + + + + + | HEMATOCRIT | 23.4 (L) | 36.0 - 46.0 % | [...] + + + | RDW SD | 42.5 | 35.1 - 46.3 fL | [facility] | | | | | | LABORATORY | | | | | | SERVICES, | | | | | | CORE | | + + + + + + | PLATELET | 15 (L) | 150 - 400 K/cu | [facility] | | | COUNT | | mm | LABORATORY | | | | | | SERVICES, | | | | | | CORE | | + + + + + + | MPV | 12.3 | 9.7 - 12.3 fL | [facility] [...] + + + + | NEUTROPHIL | 42.1 (L) | 50.0 - 70.0 % | [facility] | | | % | | | LABORATORY | | | | | | SERVICES, | | | | | | CORE | | + + + + + + | LYMPHOCYTE | 42.1 (H) | 18.0 - 42.0 % | [facility] | | | % | | | LABORATORY | | | | | | SERVICES, | | | | | | CORE | | + + + + + + | MONOCYTE % | 12.1 (H) | 3.5 - 9.0 % | [facility] | | | | | | LABORATORY | | | | | | SERVICES, | | | | | | CORE | | + + + + + + | EOS % | 0.9 (L) | 1.0 - 3.0 % | [facility] | | | | | | LABORATORY | | | | | | SERVICES, | | | | | | CORE | | + + + + + + | BASO % | 1.9 | 0.0 - 2.0 % | [facility] | | | | | | LABORATORY | | | | | | SERVICES, | | | | | | CORE | | + + + + + + | IG% | 0.9Comment: Increased | 0.0 - 1.0 % | [...] + + + + | NEUTROPHIL | 0.45 (L) | 1.80 - 7.70 | [facility] | | | # | | K/cu mm | LABORATORY | | | | | | SERVICES, | | | | | | CORE | | + + + + + + | LYMPHOCYTE | 0.45 (L) | 1.00 - 4.80 | [facility] | | | # | | K/cu mm | LABORATORY | | | | | | SERVICES, | | | | | | CORE | | + + + + + + | MONOCYTE # | 0.13 | 0.10 - 0.90 | [facility] | [...] + + + | BASO # | 0.02 | 0.00 - 0.10 | [facility] | | | | | K/cu mm | LABORATORY | | | | | | SERVICES, | | | | | | CORE | | + + + + + + | IG# | 0.01 | 0.00 - 0.10 | [facility] | [...] Lymphocyte % in effect February 13 | [place] | | 2018. New reference ranges for [...] | + + + + + | [facility] | [address] | [place] [address] | | | SERVICES, CORE | [address] | | | + + + + + 12 LEAD ECG (05/06/2018 10:15 AM PDT) + + + + + + | Component | Value | Ref Range | Performed | Pathologist | | | | | At | Signature | + + + + + + | VENTRICULAR | 78 | bpm | [facility] | | | RATE | | | OF | | | | | | CARDIOLOGY | | + + + + + + | ATRIAL RATE | 79 | ms | [facility] | | | | | | OF | | | | | | CARDIOLOGY | | + + + + + + | P-R | 156 | ms | [facility] | | | INTERVAL | | | OF | | | | | | CARDIOLOGY | | + + + + + + | P AXIS | 36 | deg | [facility] | | | | | | OF | | | | | | CARDIOLOGY | | + + + + + + | QRS | 98 | ms | [facility] | | | DURATION | | | OF | | | | | | CARDIOLOGY | | + + + + + + | QT | 414 | ms | [facility] | | | | | | OF | | | | | | CARDIOLOGY | | + + + + + + | QTCB | 471 | ms | [facility] | | | | | | OF | | | | | | CARDIOLOGY | | + + + + + + | R AXIS | -35 | deg | [facility] | | | | | | OF | | | | | | CARDIOLOGY | | + + + + + + | T AXIS | 0 | deg | [facility] | | [...] DEPT | | | IMPRESSION | by: CHELI MUNOZ | | OF | | | | 05-06-2018 10:25:59 | | CARDIOLOGY | | + + [...] + + + + + | [facility] | [address] | [place], [place] | | | CARDIOLOGY | [address] | [address] | | + + + + + CULTURE, URINE [facility] (05/06/2018 12:57 AM PDT) + + + + + + | Component | Value | Ref Range | Performed | Pathologist | | | | | At | Signature | + + + + + + | URINE | No growth (<1000 cfu/mL) | | [facility] | | | CULTURE | after 24 hours | | LABORATORY | | | [facility] | | | SERVICES, | | | | | | CORE | | + + + + + + + + | Specimen | + + | Urine - Voided | + + + + + + + | Performing | Address | City/State/Zipcode | Phone Number | | Organization | | | | + + + + + | [facility] | [address] | [place] [address] | | | SERVICES, CORE | [address] | | | + + + + + URINE, MICROSCOPIC EXAM (05/06/2018 12:57 AM PDT) + + + + + [...] + + + | WHITE CELLS | 15 (H) | 0 - 5 /hpf | [...] + + + + | SQUAMOUS | Moderate (A) | None /hpf | [facility] | | | EPITHELIAL | | | LABORATORY | | | | | | SERVICES, | | | | | | CORE | | + + + + + + | MUCOUS | Few [...] | Specimen | + + | Urine - Voided | + + + + + + + | Performing | Address | City/State/Zipcode | Phone Number | | Organization | | | | + + + + + | [facility] | [address] | [place] [address] | | | SERVICES, CORE | [address] | | | + + + + + URINE SCREEN FOR CULTURE (05/06/2018 12:57 AM PDT) + + + + + + | Component | Value | Ref Range | Performed | Pathologist | | | | | At | Signature | + + + + + + | URINE | Sent for Culture (A) | Negative | [facility] | | | SCREEN FOR | | | LABORATORY | | | CULTURE | | | SERVICES, | | | | | | CORE | | + + + + + + + + | Specimen | + + | Urine - Voided | + + + + + | Narrative | Performed At | + + + | Culture Screen Positive, specimen sent for culture. | [facility] | | | LABORATORY | | | SERVICES, CORE | + + + + + + + + | Performing | Address | City/State/Zipcode | Phone Number | | Organization | | | | + + + + + | [facility] | [address] | [place] [address] | | | SERVICES, CORE | [address] | | | + + + + + CULTURE, BLOOD BACTI & YEAST [facility] (05/06/2018 12:42 AM PDT) + + + + + [...] | Specimen | + + | Blood - Portacath | + + + + + + + | Performing | Address | City/State/Zipcode | Phone Number | | Organization | | | | + + + + + | [facility] | [address] | [place] [address] | | | SERVICES, CORE | [address] | | | + + + + + CULTURE, BLOOD BACTI & YEAST [facility] (05/06/2018 12:40 AM PDT) + + + + + [...] [facility] | [address] | [place] [address] | | | ANTONI ANGUIANO | [address] | | | + + + + + RETICULOCYTE COUNT (05/05/2018 10:00 PM PDT) + +---------+ + + + [...] +---------+ + + + | RETIC | 7.2 (L) | 10.0 - 90.0 | [facility] [...] LABORATORY | [address] | [place] [address] | | | SERVICES, CORE | [address] | | | + + + + + RBC MORPHOLOGY (05/05/2018 10:00 PM PDT) + + + + + [...] [facility] | [address] | [place] [address] | | | SERVICES, CORE | [address] | | | + + + + + MANUAL DIFFERENTIAL (05/05/2018 10:00 PM PDT) + + + + + + | Component | Value | Ref Range | Performed | Pathologist | | | | | At | Signature | + + + + + + | NEUTROPHIL | 22.6 (L) | 50.0 - 70.0 % | [facility] | | | % | | | LABORATORY | | | | | | SERVICES, | | | | | | CORE | | + + + + + + | LYMPHOCYTE | 71.6 (H) | 18.0 - 42.0 % | [facility] | | | % | | | LABORATORY | | | | | | SERVICES, | | | | | | CORE | | + + + + + + | MONOCYTE % | 4.4 | 3.5 - 9.0 % | [facility] | | | | | | LABORATORY | | | | | | SERVICES, | | | | | | CORE | | + + + + + + | EOSINOPHIL | 0.7 (L) | 1.0 - 3.0 % | [facility] | | | % | | | LABORATORY | | | | | | SERVICES, | | | | | | CORE | | + + + + + + | BASOPHIL % | 0.7 | 0.0 - 2.0 % | [facility] | | | | | | LABORATORY | | | | | | SERVICES, | | | | | | CORE | | + + + + + + | IG% | 0.0Comment: Increased | 0.0 - 1.0 % | [facility] | | | | immature | | LABORATORY | | | [...] + + + + | NEUTROPHIL | 0.18 (L) | 1.80 - 7.70 | [facility] | | | # | | K/cu mm | LABORATORY | | | | | | SERVICES, | | | | | | CORE | | + + + + + + | LYMPHOCYTE | 0.56 (L) | 1.00 - 4.80 | [facility] | | | # | | K/cu mm | LABORATORY | | | | | | SERVICES, | | | | | | CORE | | + + + + + + | MONOCYTE # | 0.03 (L) | 0.10 - 0.90 | [facility] | | | | | K/cu mm | LABORATORY | | | | | | SERVICES, | | | | | | CORE | | + + + + + + | EOSINOPHIL | 0.01 | 0.00 - 0.50 | [facility] | | | # | | K/cu mm | LABORATORY | | | | | | SERVICES, | | | | | | CORE | | + + + + + + | BASOPHIL # | 0.01 | 0.00 - 0.10 | [facility] | | | | | K/cu mm | LABORATORY | | | | | | SERVICES, | | | | | | CORE | | + + + + + + | IG# | 0.00 | 0.00 - 0.10 | [...] February 13 | [facility] | | 2017. Increased immature [...] | + + + + + | [facility] | [address] | [place] [address] | | | SERVICES, CORE | [address] | | | + + + + + CBC AND AUTO DIFF (05/05/2018 10:00 PM PDT) + + + + + + | Component | Value | Ref Range | Performed | Pathologist | | | | | At | Signature | + + + + + + | WHITE CELL | 0.78 (L) | 3.50 - 10.80 | [facility] | | | COUNT | | K/cu mm | LABORATORY | | | | | | SERVICES, | | | | | | CORE | | + + + + + + | RED CELL | 2.75 (L) | 4.00 - 5.20 | [facility] | | | COUNT | | M/cu mm | LABORATORY | | | | | | SERVICES, | | | | | | CORE | | + + + + + + | HEMOGLOBIN | 8.4 (L) | 12.0 - 16.0 | [facility] | | | | | g/dL | LABORATORY | | | | | | SERVICES, | | | | | | CORE | | + + + + + + | HEMATOCRIT | 24.4 (L) | 36.0 - 46.0 % | [facility] | | | | | | LABORATORY | | | | | | SERVICES, | | | | | | CORE | | + + + + + + | MCV | 88.7 | 80.0 - 100.0 fL | [facility] [...] + + + + | PLATELET | 12 (L) | 150 - 400 K/cu | [...] [facility] | [address] | [place] [address] | | | ANTONI ANGUIANO | [address] | | | + + + + + INR (05/05/2018 10:00 PM PDT) + +-------+ + + + | Component | Value | Ref Range | Performed | Pathologist | | | | | At | Signature | + +-------+ + + + | INR | 1.12 [...] ranges for full anticoagulation: INR for | [facility] | | Venous Thromboembolism (2.0 - 3.0) INR INR | LABORATORY | | for most patients with mech. valves (2.5 - 3.5) INR | [facility] | + + + + + + + + | Performing | Address | City/State/Zipcode | Phone Number | | Organization | | | | + + + + + | [facility] | [address] | [place] [address] | | | ANTONI ANGUIANO | [address] | | | + + + + + MAGNESIUM, PLASMA (05/05/2018 10:00 PM PDT) + +-------+ + + + | Component | Value | Ref Range | Performed | Pathologist | | | | | At | Signature | + +-------+ + + + | MAGNESIUM,P | 2.1 | 1.6 - 2.6 mg/dL | [facility] [...] | + + + + + | [facility] | [address] | [place] [address] | | | SERVICES, CORE | [address] | | | + + + + + COMPLETE METABOLIC SET (NA,K,CL,CO2,BUN,CREAT,GLUC,CA,AST,ALT,BILI TOTAL,ALK PHOS,ALB,PROT TOTAL) (05/05/2018 10:00 PM PDT) + +---------+ + + + | Component | Value | Ref Range | Performed | Pathologist | | | | | At | Signature | + +---------+ + + + | GLUCOSE, | 163 (H) | 70 - 99 mg/dL | [...] +---------+ + + + | CREATININE | 0.68 | 0.60 - 1.10 | [facility] | | | PLASMA | | mg/dL | LABORATORY | | | (LAB) | | | SERVICES, | | | | | | CORE | | + +---------+ + + + | EGFR | >60 | >60 mL/min | [facility] | | | - | | | LABORATORY | | | NIGERIAN | | | SERVICES, | | | | | | CORE | | + +---------+ + + + | EGFR NON | >60 | >60 mL/min | [facility] | | | -[place] | | | LABORATORY | | | [facility] | | | SERVICES, | | | | | | CORE | | + +---------+ + + + | SODIUM, | 142 | 136 - 145 | [facility] | [...] + + + | TOTAL CO2, | 24 | 21 - 32 mmol/L | [facility] | | | PLASMA | | | LABORATORY | | | (LAB) | | | SERVICES, | | | | | | CORE | | + +---------+ + + + | CALCIUM, | 8.6 | 8.6 - 10.2 | [facility] | | | PLASMA | | mg/dL | LABORATORY | | | (LAB) | | | SERVICES, | | | | | | CORE | | + +---------+ + + + | CALCIUM(ALB | 9.3 | 8.6 - 10.2 | [facility] | [...] +---------+ + + + | TOTAL | 6.4 | 6.4 - 8.2 g/dL | [facility] [...] + + + | ALK PHOS | 43 | 42 - 98 U/L | [facility] | | | | | | LABORATORY | | | | | | SERVICES, | | | | | | CORE | | + +---------+ + + + | AST(SGOT) | 7 | <=41 U/L | [facility] | | | | | | LABORATORY | | | | | | SERVICES, | | | | | | CORE | | + +---------+ + + + | ALT (SGPT) | 11 | <=60 U/L | [facility] | | [...] + + + + + | [facility] | [address] | [place] [address] | | | SERVICES, CORE | [address] | | | + + + + + documented in this encounter Visit Diagnoses + + | Diagnosis | + + | Neutropenic fever (HCC) - Primary Neutropenia, unspecified | + + | Odynophagia Dysphagia, unspecified | + + | 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 | + + | Encounter for long-term (current) use of antibiotics | + + | Acute hematogenous osteomyelitis, unspecified site (HCC) | + + | 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, 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 | + + | Thrombocytopenia (HCC) Thrombocytopenia, unspecified | + + documented in this encounter Administered Medications + +--------+---------+------+------+------+ | Medication Order | MAR | Action | Dose | Rate | Site | | | Action | Date | | | | + +--------+---------+------+------+------+ + +---+ | acetaminophen (TYLENOL) tablet | | | 650 mg 650 mg, oral, EVERY 4 | | | HOURS NEEDED, Starting Sat | | | 05/06/18 at 0811, Until Sat05/09/18 | | | at 1932, mild-moderate pain | | + +---+ | | | + +---+ + +---------+ + +---+---+ | acyclovir (ZOVIRAX) 1,000 mg in | New Bag | 05/08/20 | 1,000 mg | | | | NaCl 0.9 % (NS) IV 1,000 mg | | 18 9:58 | | | | | (rounded from 980 mg = 10 mg/kg | | AM PDT | | | | | | | | | | | | 98 kg Order-specific weight), | | | | | | | intravenous, EVERY 8 HOURS, First | | | | | | | dose on Sat05/06/18 at 0230, | | | | | | | Until Discontinued | | | | | | + +---------+ + +---+---+ +---------+ + +---+---+ | New Bag | 05/08/20 | 1,000 mg | | | | | 18 2:27 | | | | | | AM PDT | | | | +---------+ + +---+---+ | New Bag | 05/07/20 | 1,000 mg | | | | | 18 5:57 | | | | | | PM PDT | | | | +---------+ + +---+---+ +---+---+ | | | +---+---+ + +-------+ +-------+---+---+ | aluminum-magnesium | Given | 05/06/20 | 30 mL | | | | hydroxide-simethicone (MAALOX; | | 18 6:12 | | | | | MYLANTA) 200-200-20 mg/5 mL | | PM PDT | | | | | suspension 30 mL 30 mL, oral, | | | | | | | ONCE, 1 dose, Adilson 05/06/18 at 1745 | | | | | | + +-------+ +-------+---+---+ +---+---+ | | | +---+---+ + +-------+ +-------+---+---+ | aluminum-magnesium | Given | 05/08/20 | 30 mL | | | | hydroxide-simethicone (MAALOX; | | 18 6:55 | | | | | [place]) 200-200-20 mg/5 mL | | PM PDT | | | | | suspension 30 mL 30 mL, oral, | | | | | | | EVERY 8 HOURS NEEDED, Starting | | | | | | | Sat05/07/18 at 0741, Until Fri | | | | | | | 05/09/18 at 1932, throat pain | | | | | | + +-------+ +-------+---+---+ +-------+ +-------+---+---+ | Given | 05/07/20 | 30 mL | | | | | 18 8:49 | | | | | | AM PDT | | | | +-------+ +-------+---+---+ +---+---+ | | | +---+---+ + +---------+ +-----+---+---+ | ceFAZolin IV 2 gram in dextrose | New Bag | 05/09/20 | 2 g | | | | (RTU) 2 g, intravenous, EVERY 8 | | 18 8:52 | | | | | HOURS, First dose on Sat05/07/18 | | AM PDT | | | | | at 0815, Until Discontinued | | | | | | + +---------+ +-----+---+---+ +---------+ +-----+---+---+ | New Bag | 05/09/20 | 2 g | | | | | 18 12:05 | | | | | | AM PDT | | | | +---------+ +-----+---+---+ | New Bag | 05/08/20 | 2 g | | | | | 18 4:15 | | | | | | PM PDT | | | | +---------+ +-----+---+---+ +---+---+ | | | +---+---+ + +-------+ +-----+---+---+ | ceFEPIme (MAXIPIME) injection 2 | Given | 05/07/20 | 2 g | | | | g 2 g, intravenous, EVERY 8 | | 18 6:31 | | | | | HOURS, 30 doses, First dose on | | AM PDT | | | | | 05/05/18 at 2200, Last dose on | | | | | | | Bettie 05/15/18 at 1400 | | | | | | + +-------+ +-----+---+---+ +-------+ +-----+---+---+ | Given | 05/06/20 | 2 g | | | | | 18 9:46 | | | | | | PM PDT | | | | +-------+ +-----+---+---+ | Given | 05/06/20 | 2 g | | | | | 18 2:41 | | | | | | PM PDT | | | | +-------+ +-----+---+---+ +---+---+ | | | +---+---+ + +-------+ +-------+---+---+ | citalopram (CELEXA) tablet 40 | Given | 05/08/20 | 40 mg | | | | mg 40 mg, oral, AT BEDTIME, | | 18 10:32 | | | | | First dose on Sat05/06/18 at 2200, | | PM PDT | | | | | Until Discontinued | | | | | | + +-------+ +-------+---+---+ +-------+ +-------+---+---+ | Given | 05/07/20 | 40 mg | | | | | 18 9:25 | | | | | | PM PDT | | | | +-------+ +-------+---+---+ | Given | 05/06/20 | 40 mg | | | | | 18 9:46 | | | | | | PM PDT | | | | +-------+ +-------+---+---+ +---+---+ | | | +---+---+ + +-------+ +-------+---+---+ | famotidine (PEPCID) tablet 20 | Given | 05/09/20 | 20 mg | | | | mg 20 mg, oral, TWICE DAILY, | | 18 8:54 | | | | | First dose on Sat05/06/18 at 1000, | | AM PDT | | | | | Until Discontinued | | | | | | + +-------+ +-------+---+---+ +-------+ +-------+---+---+ | Given | 05/08/20 | 20 mg | | | | | 18 8:12 | | | | | | PM PDT | | | | +-------+ +-------+---+---+ | Given | 05/08/20 | 20 mg | | | | | 18 7:52 | | | | | | AM PDT | | | | +-------+ +-------+---+---+ +---+---+ | | | +---+---+ + +-------+ +--------+---+---+ | fentaNYL (SUBLIMAZE) injection | Given | 05/08/20 | 25 mcg | | | | intravenous, INTRAPROCEDURE PRN, | | 18 8:32 | | | | | Starting Bettie 05/08/18 at 0823, | | AM PDT | | | | | Until Bettie 05/08/18 at 0832 | | | | | | + +-------+ +--------+---+---+ +-------+ +--------+---+---+ | Given | 05/08/20 | 25 mcg | | | | | 18 8:31 | | | | | | AM PDT | | | | +-------+ +--------+---+---+ | Given | 05/08/20 | 25 mcg | | | | | 18 8:29 | | | | | | AM PDT | | | | +-------+ +--------+---+---+ +---+---+ | | | +---+---+ + +---------+ +--------+---+---+ | fluconazole IV 200 mg in NaCl | New Bag | 05/07/20 | 200 mg | | | | (RTU) 200 mg, intravenous, EVERY | | 18 8:17 | | | | | 24 HOURS, First dose on Sat | | PM PDT | | | | | 05/06/18 at 2100, Until | | | | | | | Discontinued | | | | | | + +---------+ +--------+---+---+ +---------+ +--------+---+---+ | New Bag | 05/06/20 | 200 mg | | | | | 18 8:41 | | | | | | PM PDT | | | | +---------+ +--------+---+---+ +---+---+ | | | +---+---+ + +---------+ +--------+---+---+ | fluconazole IV 200 mg in NaCl | New Bag | 05/06/20 | 200 mg | | | | (RTU) 200 mg, intravenous, ONCE, | | 18 2:33 | | | | | 1 dose, 05/06/18 at 0230 | | AM PDT | | | | + +---------+ +--------+---+---+ +---+---+ | | | +---+---+ + +-------+ + +---+---+ | heparin 10 unit/mL IV flush | Given | 05/06/20 | 50 Units | | | | syringe 50 Units 50 Units, | | 18 12:15 | | | | | intravenous, NEEDED, Starting | | AM PDT | | | | | 05/05/18 at 2353, Until Tue | | | | | | | 05/06/18 at 0039, line patency | | | | | | + +-------+ + +---+---+ +---+---+ | | | +---+---+ + +-------+ + +---+---+ | heparin 10 unit/mL IV flush | Given | 05/07/20 | 50 Units | | | | syringe 50 Units 50 Units, | | 18 8:51 | | | | | intravenous, NEEDED, Starting | | AM PDT | | | | | 05/06/18 at 0135, Until Fri | | | | | | | 05/09/18 at 1932, line patency | | | | | | + +-------+ + +---+---+ +-------+ + +---+---+ | Given | 05/07/20 | 50 Units | | | | | 18 12:35 | | | | | | AM PDT | | | | +-------+ + +---+---+ | Given | 05/06/20 | 50 Units | | | | | 18 2:41 | | | | | | PM PDT | | | | +-------+ + +---+---+ +---+---+ | | | +---+---+ + +-------+ +-------+---+---+ | heparin 100 unit/mL IV flush | Given | 05/05/20 | 500 | | | | 500 Units 500 Units, | | 18 11:00 | Units | | | | intravenous, NEEDED, Starting | | PM PDT | | | | | 05/05/18 at 2207, Until Fri | | | | | | | 05/09/18 at 1932, deaccessing | | | | | | | line/port | | | | | | + +-------+ +-------+---+---+ +---+---+ | | | +---+---+ + +-------+ +--------+---+---+ | HYDROmorphone (DILAUDID) | Given | 05/07/20 | 0.4 mg | | | | injection 0.2-0.4 mg 0.2-0.4 mg, | | 18 5:57 | | | | | intravenous, EVERY 4 HOURS | | PM PDT | | | | | NEEDED, Starting Tu05/06/18 at | | | | | | | 1123, Until Sat05/09/18 at 1932, | | | | | | | severe pain | | | | | | + +-------+ +--------+---+---+ +-------+ +--------+---+---+ | Given | 05/07/20 | 0.4 mg | | | | | 18 4:35 | | | | | | AM PDT | | | | +-------+ +--------+---+---+ | Given | 05/07/20 | 0.4 mg | | | | | 18 12:35 | | | | | | AM PDT | | | | +-------+ +--------+---+---+ +---+---+ | | | +---+---+ + +-------+ +-------+---+---+ | ketorolac (TORADOL) injection | Given | 05/06/20 | 30 mg | | | | 15-30 mg 15-30 mg, intravenous, | | 18 4:32 | | | | | EVERY 6 HOURS NEEDED, Starting | | AM PDT | | | | | 05/05/18 at 2118, Until e | | | | | | | 05/06/18 at 0811, moderate pain, | | | | | | | severe pain | | | | | | + +-------+ +-------+---+---+ +-------+ +-------+---+---+ | Given | 05/05/20 | 30 mg | | | | | 18 9:54 | | | | | | PM PDT | | | | +-------+ +-------+---+---+ +---+---+ | | | +---+---+ + + + +-------+-------+---+ | lactated Ringers IV 200 mL/hr, | Rate/Dos | 05/08/20 | 200 | 200 | | | intravenous, CONTINUOUS, | e Change | 18 7:52 | mL/hr | mL/hr | | | Starting 05/06/18 at 0815, | | AM PDT | | | | | Until Bettie 05/08/18 at 1400 | | | | | | + + + +-------+-------+---+ + + +-------+-------+---+ | New Bag | 05/08/20 | 150 | 150 | | | | 18 2:30 | mL/hr | mL/hr | | | | AM PDT | | | | + + +-------+-------+---+ | Rate/Dose Verify | 05/07/20 | 150 | 150 | | | | 18 9:25 | mL/hr | mL/hr | | | | PM PDT | | | | + + +-------+-------+---+ +---+---+ | | | +---+---+ + +-------+ +---+---+---+ | lidocaine (LMX 4) 4 % cream | Given | 05/05/20 | | | | | topical, NEEDED, Starting Mon | | 18 10:58 | | | | | 05/05/18 at 2206, Until Sat05/09/18 | | PM PDT | | | | | at 1932, for accessing port | | | | | | + +-------+ +---+---+---+ +---+---+ | | | +---+---+ + +-------+ +-------+---+---+ | lidocaine viscous (XYLOCAINE | Given | 05/06/20 | 30 mL | | | | VISCOUS) 2 % mucosal solution 30 | | 18 6:12 | | | | | mL 30 mL, oral, ONCE, 1 dose, | | PM PDT | | | | | 05/06/18 at 1745 | | | | | | + +-------+ +-------+---+---+ +---+---+ | | | +---+---+ + +-------+ +-------+---+---+ | lidocaine viscous (XYLOCAINE | Given | 05/08/20 | 30 mL | | | | VISCOUS) 2 % mucosal solution 30 | | 18 6:55 | | | | | mL 30 mL, oral, EVERY 8 HOURS | | PM PDT | | | | | NEEDED, Starting Sat05/07/18 at | | | | | | | 0741, Until Sat05/09/18 at 1932, | | | | | | | throat pain | | | | | | + +-------+ +-------+---+---+ +-------+ +-------+---+---+ | Given | 05/07/20 | 30 mL | | | | | 18 8:50 | | | | | | AM PDT | | | | +-------+ +-------+---+---+ +---+---+ | | | +---+---+ + +-------+ +-------+---+---+ | lidocaine viscous (XYLOCAINE | Given | 05/08/20 | 15 mL | | | | VISCOUS) 2 % mucosal solution | | 18 8:20 | | | | | Mouth/Throat, INTRAPROCEDURE PRN, | | AM PDT | | | | | Starting Bettie 05/08/18 at 0820, | | | | | | | Until Bettie 05/08/18 at 1040 | | | | | | + +-------+ +-------+---+---+ +---+---+ | | | +---+---+ + +-------+ +-------+---+---+ | loratadine (CLARITIN) tablet 10 | Given | 05/09/20 | 10 mg | | | | mg 10 mg, oral, DAILY, First | | 18 8:54 | | | | | dose on Sat05/06/18 at 0900, Until | | AM PDT | | | | | Discontinued | | | | | | + +-------+ +-------+---+---+ +-------+ +-------+---+---+ | Given | 05/08/20 | 10 mg | | | | | 18 7:52 | | | | | | AM PDT | | | | +-------+ +-------+---+---+ | Given | 05/07/20 | 10 mg | | | | | 18 8:51 | | | | | | AM PDT | | | | +-------+ +-------+---+---+ +---+---+ | | | +---+---+ + +-------+ +--------+---+---+ | LORazepam (ATIVAN) tablet 0.5 | Given | 05/08/20 | 0.5 mg | | | | mg 0.5 mg, oral, EVERY 6 HOURS | | 18 10:32 | | | | | NEEDED, Starting Sat05/06/18 at | | PM PDT | | | | | 0012, Until Sat05/09/18 at 1932, | | | | | | | anxiety | | | | | | + +-------+ +--------+---+---+ +-------+ +--------+---+---+ | Given | 05/07/20 | 0.5 mg | | | | | 18 11:29 | | | | | | PM PDT | | | | +-------+ +--------+---+---+ | Given | 05/06/20 | 0.5 mg | | | | | 18 11:44 | | | | | | PM PDT | | | | +-------+ +--------+---+---+ + +---+ | | | + +---+ | menthol-zinc oxide (CALAZIME) | | | topical paste 0.2%-16.5% | | | topical, TWICE DAILY NEEDED, | | | Starting Sat05/07/18 at 2341, | | | Until Sat05/09/18 at 1932, skin | | | irritation/breakdown | | + +---+ | | | + +---+ + +-------+ +--------+---+---+ | metroNIDAZOLE (FLAGYL) tablet | Given | 05/09/20 | 500 mg | | | | 500 mg 500 mg, oral, THREE TIMES | | 18 8:54 | | | | | DAILY, First dose on Sat05/05/18 | | AM PDT | | | | | at 2315, Until Discontinued | | | | | | + +-------+ +--------+---+---+ +-------+ +--------+---+---+ | Given | 05/08/20 | 500 mg | | | | | 18 10:32 | | | | | | PM PDT | | | | +-------+ +--------+---+---+ | Given | 05/08/20 | 500 mg | | | | | 18 4:15 | | | | | | PM PDT | | | | +-------+ +--------+---+---+ +---+---+ | | | +---+---+ + +-------+ +------+---+---+ | midazolam (PF) (VERSED) | Given | 09/06/20 | 1 mg | | | | injection INTRAPROCEDURE PRN, | | 18 8:32 | | | | | Starting Bettie 05/08/18 at 0823, | | AM PDT | | | | | Until Bettie 05/08/18 at 0832 | | | | | | + +-------+ +------+---+---+ +-------+ +------+---+---+ | Given | 05/08/20 | 1 mg | | | | | 18 8:31 | | | | | | AM PDT | | | | +-------+ +------+---+---+ | Given | 05/08/20 | 1 mg | | | | | 18 8:29 | | | | | | AM PDT | | | | +-------+ +------+---+---+ +---+---+ | | | +---+---+ + +-------+ +------+---+---+ | OLANZapine (ZYPREXA) tablet 5 | Given | 05/08/20 | 5 mg | | | | mg 5 mg, oral, AT BEDTIME, First | | 18 10:32 | | | | | dose on Sat05/06/18 at 2200, | | PM PDT | | | | | Until Discontinued | | | | | | + +-------+ +------+---+---+ +-------+ +------+---+---+ | Given | 05/07/20 | 5 mg | | | | | 18 9:25 | | | | | | PM PDT | | | | +-------+ +------+---+---+ | Given | 05/06/20 | 5 mg | | | | | 18 11:44 | | | | | | PM PDT | | | | +-------+ +------+---+---+ +---+---+ | | | +---+---+ + +-------+ +-------+---+---+ | omeprazole (PRILOSEC) capsule | Given | 05/09/20 | 20 mg | | | | 20 mg 20 mg, oral, TWICE DAILY, | | 18 11:51 | | | | | First dose on Sat05/09/18 at 1245, | | AM PDT | | | | | Until Discontinued | | | | | | + +-------+ +-------+---+---+ + +---+ | | | + +---+ | ondansetron (ZOFRAN) tablet 4-8 | | | mg 4-8 mg, oral, EVERY 12 HOURS | | | NEEDED, Starting Sat05/06/18 | | | at 0811, Until Sat05/09/18 at | | | 1932, nausea/vomiting, second | | | line | | + +---+ | | | + +---+ | ondansetron ODT (ZOFRAN ODT) | | | tablet 4-8 mg 4-8 mg, oral, | | | EVERY 12 HOURS NEEDED, | | | Starting e 05/06/18 at 0811, | | | Until Sat05/09/18 at 1932, if | | | patient unable to swallow whole | | | tablet formulation | | + +---+ | | | + +---+ + +-------+ +-------+---+---+ | oxyCODONE (immediate release) | Given | 05/08/20 | 10 mg | | | | (ROXICODONE) tablet 5-15 mg 5-15 | | 18 8:12 | | | | | mg, oral, EVERY 4 HOURS | | PM PDT | | | | | NEEDED, Starting Sat05/08/18 at | | | | | | | 0752, Until Sat05/09/18 at 1932, | | | | | | | moderate pain | | | | | | + +-------+ +-------+---+---+ +---+---+ | | | +---+---+ + +-------+ +--------+---+---+ | pregabalin (LYRICA) capsule 225 | Given | 05/09/20 | 225 mg | | | | mg 225 mg, oral, TWICE DAILY, | | 18 8:53 | | | | | First dose on Sat05/06/18 at 0030, | | AM PDT | | | | | Until Discontinued | | | | | | + +-------+ +--------+---+---+ +-------+ +--------+---+---+ | Given | 05/08/20 | 225 mg | | | | | 18 5:00 | | | | | | PM PDT | | | | +-------+ +--------+---+---+ | Given | 05/08/20 | 225 mg | | | | | 18 7:51 | | | | | | AM PDT | | | | +-------+ +--------+---+---+ + +---+ | | | + +---+ | prochlorperazine (COMPAZINE) | | | injection 5-10 mg 5-10 mg, | | | intravenous, EVERY 6 HOURS | | | NEEDED, Starting Sat05/06/18 at | | | 0811, Until Sat05/09/18 at 193, | | | n/v, if unable to take oral form | | | of medication | | + +---+ | | | + +---+ | prochlorperazine (COMPAZINE) | | | tablet 5-10 mg 5-10 mg, oral, | | | EVERY 6 HOURS NEEDED, Starting | | | 05/06/18 at 0811, Until Fri | | | 05/09/18 at 193, nausea/vomiting, | | | first line | | + +---+ | | | + +---+ | saliva substitute (MOUTH KOTE) | | | spray oral, NEEDED, Starting | | | Bettie 05/08/18 at 0350, Until Fri | | | 05/09/18 at 193, dry mouth | | + +---+ | | | + +---+ + +---------+ +-------+-------+---+ | sodium chloride 0.9 % (NS) IV | New Bag | 05/06/20 | 100 | 100 | | | infusion 100 mL/hr, intravenous, | | 18 2:04 | mL/hr | mL/hr | | | CONTINUOUS, Starting e 05/06/18 | | AM PDT | | | | | at 0115, Until e 05/06/18 at 0739 | | | | | | + +---------+ +-------+-------+---+ +---+---+ | | | +---+---+ + +-------+ +-----+---+---+ | sucralfate (CARAFATE) | Given | 05/09/20 | 1 g | | | | suspension 1 g 1 g, oral, BEFORE | | 18 6:21 | | | | | MEALS AND BEDTIME, First dose on | | AM PDT | | | | | 05/06/18 at 2100, Until | | | | | | | Discontinued | | | | | | + +-------+ +-----+---+---+ +-------+ +-----+---+---+ | Given | 05/08/20 | 1 g | | | | | 18 8:12 | | | | | | PM PDT | | | | +-------+ +-----+---+---+ | Given | 05/07/20 | 1 g | | | | | 18 8:15 | | | | | | PM PDT | | | | +-------+ +-----+---+---+ +---+---+ | | | +---+---+ + +---------+ + +---+---+ | vancomycin (VANCOCIN) IV 1,000 | New Bag | 05/06/20 | 1,000 mg | | | | mg 1,000 mg, intravenous, ONCE, | | 18 2:34 | | | | | 1 dose, 05/06/18 at 0230 | | AM PDT | | | | + +---------+ + +---+---+ +---+---+ | | | +---+---+ + +---------+ + +---+---+ | vancomycin (VANCOCIN) IV 1,500 | New Bag | 05/06/20 | 1,500 mg | | | | mg 1,500 mg, intravenous, EVERY | | 18 11:04 | | | | | 12 HOURS, First dose on Sat | | PM PDT | | | | | 05/06/18 at 1200, Until | | | | | | | Discontinued | | | | | | + +---------+ + +---+---+ +---------+ + +---+---+ | New Bag | 05/06/20 | 1,500 mg | | | | | 18 11:03 | | | | | | AM PDT | | | | +---------+ + +---+---+ +---+---+ | | | +---+---+ documented in this encounter
--- OUTSIDE RECORDS SUMMARY | ~2019-01-30 | XMS | Encounter Summary ---
Demographics + + + | Address | [address] | | | [place] [address] | + + + | Home Phone [...] Team Providers + +------+ + | Care Earthmoving Plant Operator Name | Role | Phone | [...] | | | | | Sarahy Conner [place], | | | | | | [place] [address] | | | +--------+--------+ + + + [...] [address] | | | | | | [place], [place] | | | | | | [address] | | | | | | [phone] | | | | | | | | +--------+ + + + + | 03/25/ | Office | Orthopedics | Lynda Basurto, | | | 2018 | Visit | | [address] | | | | | | [address] | | | | | | [place], [place] | | | | | | [address] | | | | | | [phone] | | | | | | | | +--------+ + + + + | 03/25/ | Office | Hematology & | Sandra Patel MD | | | 2018 | Visit | Oncology | [address] | | | | | | [place], [place] | | | | | | [address] | | | | | | [phone] | | | | | | | | +--------+ + + + + documented as of this encounter Visit Diagnoses Not on filedocumented in this encounter"
--- OUTSIDE RECORDS SUMMARY | ~2019-01-30 | XMS | Encounter Summary ---
Demographics + + + | Address | [address] | | | [place] [address] | + + + | Home Phone [...] Team Providers + +------+ + | Care Educational Technologist Name | Role | Phone | [...] | | | | | lower | [place] | [place] | | | | | extremity | [address] | [phone] | | | | | Unspecified | Phone: | Phone: | | | | | open wound, | [phone] | [phone] | | | | | left knee, | Fax: | Fax: | | | | | initial | [phone] | [phone] | | | | | encounter | | | | | | | Procedures | | | | | | | REQUEST TO | | | | | | | SURGERY | | | | | | | ELECTRICAL DESIGNER | | | | | | | CO CLEANSING | | | | | | | OF | | | | | | | TISSUE/MUSCL | | | | | | | E CO LADONNA | | | | | | | MUSC/FASCIA | | | | | | | ADD-ON CO | | | | | | | CLEANSING | | | | | | | TISSUE/MUSCL | | | | | | | E/BONE CO | | | | | | | LADONNA BONE | | | | | | | ADD-ON CO | | | | | | | RE-AMPUTATIO | | | | | | | N LOWER LEG | | | | | | | CO NEG | | | | | | | PRESS WOUND | | | | | | | TX, <= 50 CM | | | | | | | CO NEG | | | | | | | PRESS WOUND | | | | | | | TX, > 50 CM | | | | | | | CO NEG | | | | | | | PRESS WOUND | | | | | | | TX, =< 50 | | | | | | | SQCM CO NEG | | | | | | | PRESS WOUND | | | | | | | TX, > 50 | | | | | | | SQCM | | | +--------+--------+ + + + + Encounter Details +--------+ + + + + | Date | Type | Department | Care Team | Description | +--------+ + + + + | 03/24/ | Client Relation Specialist | Orthopaedics at | Rosy BasurtoMacarioLori, | Amputation stump | | 2018 | | [facility] [address] | [address] | infection (HCC) | | | | Ave Mailcode: CH[address] | [address] | (Primary Dx) | | | | [facility] | [place], [place] | | | | | and [facility], | [address] | | | | | Floor [place], [place] | [phone] | | | | | [address] | | | | | | [phone] | | | +--------+ + + + [...] [place] | | | | | | [address] | | | | | | [phone] | | | | | | | | +--------+ + + + + | 03/25/ | Office | Orthopedics | Lynda Basurto, | | | 2018 | Visit | | [address] | | | | | | [address] | | | | | | [place], [place] | | | | | | [address] | | | | | | [phone] | | | | | | | | +--------+ + + + + | 03/25/ | Office | Hematology & | Sandra Patel MD | | | 2018 | Visit | Oncology | [address] | | | | | | [place], [place] | | | | | | [address] | | | | | | [phone] | | | | | | | | +--------+ + + + + documented as of this encounter Visit Diagnoses + + | Diagnosis | + + | 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
--- OUTSIDE RECORDS SUMMARY | ~2019-01-30 | XMS | Encounter Summary ---
Demographics + + + | Address | [address] | | | [place] [address] | + + + | Home Phone [...] Team Providers + +------+ + | Care Glass Frame Fitter Name | Role | Phone | + +------+ + | Santo Gooden MD | PCP | | + +------+ + Reason for Visit + + + | Reason | Comments | + + + | Follow-up visit | | + + + Office Visit - E/M Services (Routine) +--------+--------+ + + + + | Status | Reason | Specialty | Diagnoses / | Referred By | Referred To | | | | | Procedures | Contact | Contact | +--------+--------+ + + + + | Closed | | Infectious | Diagnoses | Non-[facility] | [facility], | | | | Disease | Infection | Epic Dept | Angely Duke MD | | | | | of | | [address] | | | | | amputation | | [address] | | | | | stump, | | [address] [place], | | | | | unspecified | | [place] | | | | | extremity | | [address] | | | | | Osteomyeliti | | Phone: | | | | | s, | | [phone] | | | | | unspecified | | Fax: | | | | | | | [phone] | +--------+--------+ + + + + Encounter Details +--------+---------+ + + + | Date | Type | Department | Care Team | Description | +--------+---------+ + + + | 05/14/ | Office | Hematology/Medical | Angely Stephen, | Osteomyelitis of | | 2018 | Visit | Oncology at [facility] | [address] | left leg (HCC) | | | | [address] | [address] | (Primary Dx); E. | | | | Mailcode: Center | [place], [place] | coli infection; | | | | for Health and | [address] | Synovial sarcoma | | | | Healing, [address] | [phone] | (HCC); snf | | | | [place], [place] | | (current) use of | | | | [address] | | antibiotics | | | | [phone] | | | +--------+---------+ + + + [...] encounter Progress Notes Angely Stephen MD - 05/14/2018 1:00 PM PDTFormatting of this note might be different fro m the original. 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 She was taken for I&D on 03/24/18. Cultures were polymicrobial growing E. Coli (5/5), Prevotella bivia (5/5), E. Faecalis in (2/5) and CoNS in (1/5). [place] to [place] 03/27/18 for I&D and revision of L BKA site with removal of about 1 cm of bone for wound cl osure. 4/5 of the cultures grew E. Coli alone. Path concerning for acute osteomyelitis. Pt was placed on zosyn with plan for 6 week course of therapy through 05/08/18. However, this w as changed to cefazolin and flagyl on 04/09/18 b/c pt was unhappy with being hooked up to a pu mp all day as well as less concern for coverage of E. faecalis after second debridement grew only E. coli. Her antibiotic course was also extended by 1 week with plan to end on 8 to ensure that she had therapy for 1 week after her last chemo. She underwent her 3rd cycle of chemotherapy on 04/27/18 and her course was complicated by re cent admission for neutropenic fever with fatigue, sore throat so bad she couldn't eat. No new source of fever was found during her inpatient stay. She did undergo EGD and thyroid st udies/ultrasound without clear source. She presents today and is still having sore throat wi th dry cough and some runny nose, but feels it's much better than when she was in the hospit al. She's able to eat now. Denies cp, + sob. She is concerned b/c her o2 sat was 94% when s he came in. I rechecked it and it was 98%. Denies f/c. Does feel shaky and tired despite hav ing eaten today. She states it's an internal whole body sensation and she feels a little of f balance. She otherwise does still c/o some loose stools. Denies n/v. No issues with her port. ROS: As per HPI Filed Vitals: 05/14/2018 1:06 PM Weight: 144.7 kg (319 lb 1.6 oz) BP: 145/89 Pulse: 97 Temp: 36.7 C (98 F) TempSrc: Oral Resp: 16 SpO2: 94% PainSc: 0 - Zero BMI: 48.52 kg/(m^2) Gen: in NAD, A&Ox3 HEENT: anicteric sclera, PERRL, OP clear, no thrush, good dentition Neck: Supple, no cervical LAD Chest: Clear to auscultation bilat, no rhonchi or wheeze, + port in R chest with c/d/i louisa ssing CV: Reg rate with nml s1, s2; no m/r/g Abd: + BS, soft, NT/ND, no hepatosplenomegaly, no masses Ext: L stump incision site looks intact, no erythema, no dehiscence, no pain with palpation , looks great Skin: no rashes noted, warm/dry Labs: Micro: 03/27 cultures: E. Coli x 4/5 cultures. 03/24: E. Coli (5/5), prevotella bivia (5/5), enterococcus faecalis (2/5), CoNS (1/5) E. Col i R to ampicillin and bactrim only. Cultures were collected from both wound and bone on both occasions. Blood culture 03/23: NGx2, 05/06 ngx2 03/24/18 Path: Final Pathologic Diagnosis A. Soft tissue, left below knee amputation site, debridement: - Fibroadipose tissue with fat necrosis and acute and chronic inflammation B. Leg, distal tibia, excision: - Viable bone with reactive changes - Marrow with mildly increased neutrophils, see note Note (part B): The marrow shows patchy mildly increased neutrophils and the bone shows re active changes. The findings may be suggestive of acute osteomyelitis. 05/14/18 CT chest: I reviewed images myself and reviewed the read. No evidence of infiltrat e or metastasis. Essentially unremarkable. Imp/Plan: 1. L BKA stump osteomyelitis - polymicrobial with cultures growing predominantly E. Coli a nd Prevotella, also grew E. Faecalis in 2/5 cultures and CoNS 1/5 s/p I&D x 2 with last on 2. 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 Recent admission for neutropenic fever without clear etiology 4. 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 Her L BKA stump has completely healed and shows no signed of infection. Pt is ready to be off of antibiotics as she still has some loose stools intermittently. She has now completed her 3rd cycle of chemo and has recovered her wbc. Will plan to d/c antibiotics of cefazolin and flagyl as schedul ed tomorrow. Pt has port so line removal orders not needed. Will send end of therapy orders. No further antibiotics needed at this time. Pt reminded of symptoms that may be concerning for recurrence of infection ie fevers, chills, pain in stump, redness or drainage at incisi on scar site. Pt can follow up with me as needed. Angely Stephen MD HEMATOLOGY/MEDICAL ONCOLOGY AT [facility] 7TH FLOOR [address] [facility] [place] [address] I spent 30 minutes with the patient. Greater than 50% of the time was spent counseling the patient regarding her recent admission for neutropenic fever and her treatment of the L BKA stump osteomyelitis. documented in this en counter Plan of Treatment +--------+ + + + + | Date | Type | Specialty | Care Team | Description | +--------+ + + + + | 03/25/ | Appointment | Radiology | Sandra Patel MD | | | 2018 | | | [address] | | | | | | [place], [place] | | | | | | [address] | | | | | | [phone] | | | | | | | | +--------+ + + + + | 03/25/ | Office | Orthopedics | Lynda Basurto, | | | 2018 | Visit | | [address] | | | | | | [address] | | | | | | [place], [place] | | | | | | [address] | | | | | | [phone] | | | | | | | | +--------+ + + + + | 03/25/ | Office | Hematology & | Sandra Patel MD | | | 2019 | Visit | Oncology | [address] | | | | | | [place], [place] | | | | | | [address] | | | | | | [phone] | | | | | | | | +--------+ + + + + documented as of this encounter Visit Diagnoses + + | Diagnosis | + + | Osteomyelitis of left leg (HCC) - Primary Unspecified osteomyelitis, site unspecified | + + | E. coli infection Other and unspecified Escherichia coli (E. coli) | + + | 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, 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 | + + | snf (current) use of antibiotics | + + documented in this encounter"
--- OUTSIDE RECORDS SUMMARY | ~2019-01-30 | XMS | Encounter Summary ---
Demographics + + + | Address | [address] | | | [place] [address] | + + + | Home Phone [...] Team Providers + +------+ + | Care Utility Spray Operator Name | Role | Phone | + +------+ + | Santo Gooden MD | PCP | | + +------+ + Reason for Visit +--------+ + | Reason | Comments | +--------+ + | Other | Work release letter | +--------+ + Encounter Details +--------+ + + + + | Date | Type | Department | Care Team | Description | +--------+ + + + + | 04/03/ | Telephone | Orthopaedics at | Lynda Basurto, | Other (Work release | | 2018 | | [facility] [address] | [address] [facility] | letter) | | | | [place] Mailcode: CH12A | [address] | | | | | [facility] | [place], [place] | | | | | and [address] | [address] | | | | | Floor [place], [place] | [phone] | | | | | [address] | | | | | | [phone] | | | +--------+ + + + [...] | | | 2018 | | | [address] | | | | | | [place], [place] | | | | | | [address] | | | | | | [phone] | | | | | | | | +--------+ + + + + | 03/25/ | Office | Orthopedics | Rosy BasurtoAlexander, | | | 2018 | Visit | | [address] | | | | | | [address] | | | | | | [place], [place] | | | | | | [address] | | | | | | [phone] | | | | | | | | +--------+ + + + + | 03/25/ | Office | Hematology & | Sandra Patel MD | | | 2018 | Visit | Oncology | [address] | | | | | | [place], [place] | | | | | | [address] | | | | | | [phone] | | | | | | | | +--------+ + + + + documented as of this encounter Visit Diagnoses Not on filedocumented in this encounter"
--- OUTSIDE RECORDS SUMMARY | ~2019-01-30 | XMS | Encounter Summary ---
Demographics + + + | Address | [address] | | | [place] [address] | + + + | Home Phone [...] Team Providers + +------+ + | Care Beam Racker Name | Role | Phone | + +------+ + | Santo Gooden MD | PCP | | + +------+ + Encounter Details +--------+ + + + + | Date | Type | Department | Care Team | Description | +--------+ + + + + | 04/09/ | Pharmacy | [facility] | | | | 2018 | Visit | & [facility] | | | | | | [address] | | | | | | [place], [place] | | | | | | [address] | | | | | | [phone] | | | +--------+ + + + [...] Scott | | | | | | [place], [place] | | | | | | [address] | | | | | | [phone] | | | | | | | | +--------+ + + + + | 03/25/ | Office | Orthopedics | Lynda Basurto, | | | 2018 | Visit | | [address] | | | | | | [address] | | | | | | [place], [place] | | | | | | [address] | | | | | | [phone] | | | | | | | | +--------+ + + + + | 03/25/ | Office | Hematology & | Sandra Patel MD | | | 2018 | Visit | Oncology | [address] | | | | | | [place] | | | | | | [address] | | | | | | [phone] | | | | | | | | +--------+ + + + + documented as of this encounter Visit Diagnoses Not on filedocumented in this encounter"
--- OUTSIDE RECORDS SUMMARY | ~2019-01-30 | XMS | Encounter Summary ---
Demographics + + + | Address | [address] | | | [place] [address] | + + + | Home Phone [...] Author + + + | Author | [facility] | + + + | Organization | [facility] | + + + | Address | Unknown | + + + | Phone | Unavailable | + + + Support + + +---------+ + | Name | Relationship | Address | Phone | + + +---------+ + | Kika Cage | ECON | Unknown | | + + +---------+ + Care Team Providers + +------+ + | Care Preschool Paraprofessional Name | Role | Phone | + [...] 04/07/ | Telephone | Infectious | Wendy Fraser, | Diarrhea | | 2018 | | Diseases at [facility] 3[facility] | RN [address] [facility] | | | | | Floor [address] | [facility] | | | | | [facility] | [place], [place] | | | | | Mailcode: L457 | [address] | | | | | Physicians Katie | [phone] | | | | | [place], [place] | | | | | | [address] | | | | | | [phone] | | | +--------+ + + + [...] | | | 2018 | | | [address] | | | | | | [place], [place] | | | | | | [address] | | | | | | [phone] | | | | | | | | +--------+ + + + + | 03/25/ | Office | Orthopedics | Lynda Basurto, | | | 2019 | Visit | | [address] | | | | | | [address] | | | | | | [place], [place] | | | | | | [address] | | | | | | [phone] | | | | | | | | +--------+ + + + + | 03/25/ | Office | Hematology & | Sandra Patel MD | | | 2019 | Visit | Oncology | [address] | | | | | | [place] | | | | | | [address] | | | | | | [phone] | | | | | | | | +--------+ + + + + documented as of this encounter Visit Diagnoses Not on filedocumented in this encounter"
--- OUTSIDE RECORDS SUMMARY | ~2019-01-30 | XMS | Encounter Summary ---
Demographics + + + | Address | [address] | | | [place] [address] | + + + | Home Phone [...] Providers + +------+ + | Care Sports Therapist Name | Role | Phone | + +------+ + | Santo Gooden MD | PCP | | + +------+ + Encounter Details +--------+ + + + + | Date | Type | Department | Care Team | Description | +--------+ + + + + | 05/09/ | Documentati | Hematology/Medical | Sandra Patel MD | | | 2018 | on | [facility] at [place] | [address] | | | | | for Health & Healing | [place], [place] | | | | | [address] | [address] | | | | | Mailcode: [place] | [phone] | | | | | for Health and | | | | | | Healing, [facility] | | | | | | [place], [place] | | | | | | [address] | | | | | | [phone] | | | +--------+ + + + [...] Scott | | | | | | [place], [place] | | | | | | [address] | | | | | | [phone] | | | | | | | | +--------+ + + + + | 03/25/ | Office | Orthopedics | Lynda Basurto, | | | 2019 | Visit | | [address] | | | | | | [address] | | | | | | [place], [place] | | | | | | [address] | | | | | | [phone] | | | | | | | | +--------+ + + + + | 03/25/ | Office | Hematology & | Sandra Patel MD | | | 2019 | Visit | Oncology | [address] | | | | | | [place], [place] | | | | | | [address] | | | | | | [phone] | | | | | | | [...]
--- OUTSIDE RECORDS SUMMARY | ~2019-01-30 | XMS | Encounter Summary ---
Demographics + + + | Address | [address] | | | [place] [address] | + + + | Home Phone | | + + + | Preferred Language | Unknown | + + + | Marital Status | Single | + + + | Caodaism Affiliation | CAT | + + + | Race | Unknown | + + + | Ethnic Group | Not or | + + + Author + + + | Author | [facility] | + + + | Organization | [facility] | + + + | Address | Unknown | + + + | Phone | Unavailable | + + + Support + + +---------+ + | Name | Relationship | Address | Phone | + + +---------+ + | Kika Cage | ECON | Unknown | | + + +---------+ + Care Team Providers + +------+ + | Care Transportation Design Engineer Name | Role | Phone | + +------+ + | Santo Gooden MD | PCP | | + +------+ + Reason for Visit + + + | Reason | Comments | + + + | Medication Questions | | + + + Encounter Details +--------+ + + + + | Date | Type | Department | Care Team | Description | +--------+ + + + + | 05/26/ | Telephone | Hematology/Medical | Sandra Patel MD | Medication Questions | | 2018 | | Oncology at [place] | [address] | | | | | for Health & Healing | [place], [place] | | | | | [address] | [address] | | | | | Mailcode: [place] | [phone] | | | | | for Health and | | | | | | Healing, [address] | | | | | | [place], [place] | | | | | | [address] | | | | | | [phone] | | | +--------+ + + + [...] | | | | | | [place], [place] | | | | | | [address] | | | | | | [phone] | | | | | | | | +--------+ + + + + | 03/25/ | Office | Orthopedics | SbLynda, | | | 2018 | Visit | | [address] | | | | | | [address] | | | | | | [facility] [place] | | | | | | [address] | | | | | | [phone] | | | | | | | | +--------+ + + + + | 03/25/ | Office | Hematology & | Sandra Patel MD | | | 2018 | Visit | Oncology | [address] | | | | | | [place], [place] | | | | | | [address] | | | | | | [phone] | | | | | | | | +--------+ + + + + documented as of this encounter Visit Diagnoses Not on filedocumented in this encounter"
--- OUTSIDE RECORDS SUMMARY | ~2019-01-30 | XMS | Encounter Summary ---
Demographics + + + | Address | [address] | | | [place] [address] | + + + | Home Phone [...] Team Providers + +------+ + | Care Speech And Language Tutor Name | Role | Phone | + [...] | | 2018 | | Oncology at [place] | [address] | | | | | for Health & Healing | [place], [place] | | | | | [address] | [address] | | | | | Mailcode: [place] | [phone] | | | | | for Health and | | | | | | Healing, [address] | | | | | | [place], [place] | | | | | | [address] | | | | | | [phone] | | | +--------+ + + + [...] | | | 2018 | | | [address] | | | | | | [place], [place] | | | | | | [address] | | | | | | [phone] | | | | | | | | +--------+ + + + + | 03/25/ | Office | Orthopedics | Lynda ulloa, | | | 2018 | Visit | | [address] | | | | | | [address] | | | | | | [facility] [place] | | | | | | [address] | | | | | | [phone] | | | | | | | | +--------+ + + + + | 03/25/ | Office | Hematology & | Sandra Patel MD | | | 2018 | Visit | Oncology | [address] | | | | | | [place], [place] | | | | | | [address] | | | | | | [phone] | | | | | | | | +--------+ + + + + documented as of this encounter Visit Diagnoses Not on filedocumented in this encounter"
--- OUTSIDE RECORDS SUMMARY | ~2019-01-30 | XMS | Encounter Summary ---
Demographics + + + | Address | [address] | | | [place] [address] | + + + | Home Phone [...] Team Providers + +------+ + | Care News Broadcaster Name | Role | Phone | + [...] | 2018 | Encounter | Oncology at [facility] | [address] | | | | | [address] | [place] [address] | | | | | Mailcode: [place] | | | | | | [facility] Health and | | | | | | Healing, [address] | | | | | | [place], [place] | | | | | | [address] | | | | | | [phone] | | | +--------+ + + + [...] [address] | | | | | | [place], [place] | | | | | | [address] | | | | | | [phone] | | | | | | | | +--------+ + + + + | 03/25/ | Office | Orthopedics | Lynda Basurto, | | | 2018 | Visit | | [address] | | | | | | [address] | | | | | | [place], [place] | | | | | | [address] | | | | | | [phone] | | | | | | | | +--------+ + + + + | 03/25/ | Office | Hematology & | Sandra Patel MD | | | 2018 | Visit | Oncology | [address] | | | | | | [place], [place] | | | | | | [address] | | | | | | [phone] | | | | | | | [...] | [facility] | [address] [facility] | [place] [address] | | | OF CARE TESTS | [...] | [facility] | [address] | [place] [address] | | | OF CARE TESTS | [...] [facility] | [address] | [place] [address] | | | SERVICES, CORE | [address] | | | + + + + + documented in this encounter Visit Diagnoses + + | Diagnosis | + + | 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
--- OUTSIDE RECORDS SUMMARY | ~2019-01-30 | XMS | Encounter Summary ---
Demographics + + + | Address | [address] | | | [place] [address] | + + + | Home Phone [...] Team Providers + +------+ + | Care Skate Maker Name | Role | Phone | + +------+ + | Santo Gooden MD | PCP | | + +------+ + Encounter Details +--------+ + + + + | Date | Type | Department | Care Team | Description | +--------+ + + + + | 02/06/ | Procedure | 6A Intra Op [facility] | | | | 2017 | Pass | [facility] | | | | | | Admitting Desk | | | | | | Located on the 9th | | | | | | floor [address] [facility] | | | | | | [facility] | | | | | | [place], [place] | | | | | | [address] | | | +--------+ + + + [...] [place] | | | | | | [address] | | | | | | [phone] | | | | | | | | +--------+ + + + + | 03/25/ | Office | Orthopedics | Lynda Basurto, | | | 2018 | Visit | | [address] | | | | | | [address] | | | | | | [place], [place] | | | | | | [address] | | | | | | [phone] | | | | | | | | +--------+ + + + + | 03/25/ | Office | Hematology & | Sandra Patel MD | | | 2018 | Visit | Oncology | [address] | | | | | | [place], [place] | | | | | | [address] | | | | | | [phone] | | | | | | | | +--------+ + + + + documented as of this encounter Visit Diagnoses Not on filedocumented in this encounter"
--- OUTSIDE RECORDS SUMMARY | ~2019-01-30 | XMS | Encounter Summary ---
Demographics + + + | Address | [address] | | | [place] [address] | + + + | Home Phone [...] Team Providers + +------+ + | Care Deicer Repairer Electric Name | Role | Phone | + [...] | | 2018 | | [facility]cology at [place] | [address] | Clarification (port | | | | for Health & Healing | [place], [place] | maintenance) | | | | [address] | [address] | | | | | Mailcode: [place] | [phone] | | | | | for Health and | | | | | | Healing, [address] | | | | | | [place], [place] | | | | | | [address] | | | | | | [phone] | | | +--------+ + + + [...] | | | 2019 | | | [address] | | | | | | [facility] [place] | | | | | | [address] | | | | | | [phone] | | | | | | | | +--------+ + + + + | 03/25/ | Office | Orthopedics | Sb GallegosShirley, | | | 2018 | Visit | | [address] | | | | | | [address] | | | | | | [place], [place] | | | | | | [address] | | | | | | [phone] | | | | | | | | +--------+ + + + + | 03/25/ | Office | Hematology & | Sandra Patel MD | | | 2018 | Visit | Oncology | [address] | | | | | | [facility], [place] | | | | | | [address] | | | | | | [phone] | | | | | | | | +--------+ + + + + documented as of this encounter Visit Diagnoses Not on filedocumented in this encounter"
--- OUTSIDE RECORDS SUMMARY | ~2019-01-30 | XMS | Encounter Summary ---
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 | [address] | coli infection; Long | | | | and Healing, | [phone] | term (current) use | | | | Floor [place], [place] | | of antibiotics | | | | [address] | | | | | | [phone] | | | +--------+---------+ + + + [...] cycles of adjuvant chemo 3. Encounter for long term care phlebotomist use of antibiotics Pt's wound seems to [...] Angely Stephen MD [facility] 12TH FLOOR [address] [place] [address] iAngely kim MD - 04/09/2018 3:00 PM [...] | | | 2018 | | | [address] | | | | | | [place], [place] | | | | | | [address] | | | | | | [phone] | | | | | | | | +--------+ + + + + | 03/25/ | Office | Orthopedics | Lynda Basurto, | | | 2018 | Visit | | [address] | | | | | | [address] | | | | | | [place], [place] | | | | | | [address] | | | | | | [phone] | | | | | | | | +--------+ + + + + | 03/25/ | Office | Hematology & | Sandra Patel MD | | | 2019 | Visit | Oncology | [address] | | | | | | [place], [place] | | | | | | [address] | | | | | | [phone] | | | | | | | [...] coli (E. coli) | + + | half-way (current) use of antibiotics | + + documented in this encounter"
--- OUTSIDE RECORDS SUMMARY | ~2019-01-30 | XMS | Encounter Summary ---
Demographics + + + | Address | [address] | | | [place] [address] | + + + | Home Phone [...] Team Providers + +------+ + | Care Emery Wheel Molder Name | Role | Phone | + [...] | | 2018 | | Oncology at [place] | | | | | | for Health & Healing | | | | | | [address] | | | | | | Mailcode: [place] | | | | | | for Health and | | | | | | [facility] | | | | | | [place], [place] | | | | | | [address] | | | | | | [phone] | | | +--------+ + + + [...] [address] | | | | | | [place], [place] | | | | | | [address] | | | | | | [phone] | | | | | | | | +--------+ + + + + | 03/25/ | Office | Orthopedics | Paul Basurtoen, | | | 2018 | Visit | | [address] | | | | | | [address] | | | | | | [place], [place] | | | | | | [address] | | | | | | [phone] | | | | | | | | +--------+ + + + + | 03/25/ | Office | Hematology & | Sandra Patel MD | | | 2018 | Visit | Oncology | [address] | | | | | | [place], [place] | | | | | | [address] | | | | | | [phone] | | | | | | | | +--------+ + + + + documented as of this encounter Visit Diagnoses Not on filedocumented in this encounter"
--- OUTSIDE RECORDS SUMMARY | ~2019-01-30 | XMS | Encounter Summary ---
Demographics + + + | Address | [address] | | | [place] [address] | + + + | Home Phone [...] Team Providers + +------+ + | Care Archives Specialist Name | Role | Phone | + +------+ + | Santo Gooden MD | PCP | | + +------+ + Reason for Visit + + + | Reason | Comments | + + + | Letter From | | | Specialist | | + + + Encounter Details +--------+ + + + + | Date | Type | Department | Care Team | Description | +--------+ + + + + | 02/24/ | Telephone | [facility] | Lynda Basurto, | Letter From | | 2018 | | & Rehabilitation at | [address] | Specialist | | | | [facility] [address] | [address] | | | | | Ave Mailcode: | [place], [place] | | | | | [facility] | [address] | | | | | and [address], | [phone] | | | | | [address] | | | | | | [place], [place] | | | | | | [address] | | | | | | [phone] | | | +--------+ + + + [...] [address] | | | | | | [place], [place] | | | | | | [address] | | | | | | [phone] | | | | | | | | +--------+ + + + + | 03/25/ | Office | Orthopedics | Sb GallegosShirley, | | | 2018 | Visit | | [address] | | | | | | [address] | | | | | | [place], [place] | | | | | | [address] | | | | | | [phone] | | | | | | | | +--------+ + + + + | 03/25/ | Office | Hematology & | Sandra Patel MD | | | 2018 | Visit | Oncology | [address] | | | | | | [place], [place] | | | | | | [address] | | | | | | [phone] | | | | | | | | +--------+ + + + + documented as of this encounter Visit Diagnoses Not on filedocumented in this encounter"
--- OUTSIDE RECORDS SUMMARY | ~2019-01-30 | XMS | Encounter Summary ---
Demographics + + + | Address | [address] | | | [place] [address] | + + + | Home Phone [...] Team Providers + +------+ + | Care Chef German Name | Role | Phone | + [...] | | | | neoplasm of | [address] | | | | | | soft tissue | [address] | | | | | | of left | Sarahy Conner | | | | | | lower | [place], [place] | | | | | | extremity | [address] | | | | | | (HCC) | Phone: | | | | | | Procedures | [phone] | | | | | | CT CHEST WO | Fax: | | | | | | CONTRAST | [phone] | | + +--------+ + + + [...] | | | | | lower | [place], [place] | | | | | | extremity | [address] | | | | | | (HCC) | Phone: | | | | | | Procedures | [phone] | | | | | | CT CHEST WO | Fax: | | | | | | CONTRAST | [phone] | | + +--------+ + + + [...] | | | | | lower | [place], [place] | | | | | | extremity | [address] | | | | | | (HCC) | Phone: | | | | | | Procedures | [phone] | | | | | | CT CHEST WO | Fax: | | | | | | CONTRAST | [phone] | | + +--------+ + + + + Encounter Details +--------+ + + + + | Date | Type | Department | Care Team | Description | +--------+ + + + + | 01/22/ | Hospital | Radiology/Imaging | Sb RosyAlexander, | | | 2018 | Encounter | Lab at [facility] [address] | [address] | | | | | [address] | [facility] | | | | | Mailcode: CH3G | [place], [place] | | | | | [facility] | [address] | | | | | and [address] [facility] | [phone] | | | | | Floor [place], [place] | | | | | | [address] | | | | | | [phone] | | | +--------+ + + + [...] +---------+--------+ + documented as of this encounter Plan of Treatment +--------+ + + + + | Date | Type | Specialty | Care Team | Description | +--------+ + + + + | 03/25/ | Appointment | Radiology | Sandra Patel MD | | | 2018 | | | [address] | | | | | | [place], [place] | | | | | | [address] | | | | | | [phone] | | | | | | | | +--------+ + + + + | 03/25/ | Office | Orthopedics | Lynda Basurto, | | | 2018 | Visit | | [address] | | | | | | [address] | | | | | | [place], [place] | | | | | | [address] | | | | | | [phone] | | | | | | | | +--------+ + + + + | 03/25/ | Office | Hematology & | Sandra Patel MD | | | 2018 | Visit | Oncology | [address] | | | | | | [place], [place] | | | | | | [address] | | | | | | [phone] | | | | | | | | +--------+ + + + + documented as of this encounter Procedures + +--------+ + + + | Procedure Name | Priori | Date/Time | Associated Diagnosis | Comments | | | ty | | | | + +--------+ + + + | CT CHEST WO CONTRAST | Routin | 01/22/2018 | Malignant neoplasm | Results for this | | | e | 5:57 PM | of soft tissue of | procedure are in the | | | | PDT | left lower extremity | results section. | | | | | (HCC) | | + +--------+ + + + [...] of left lower extremity (HCC) | + + documented in this encounter"
--- OUTSIDE RECORDS SUMMARY | ~2019-01-30 | XMS | Encounter Summary ---
Demographics + + + | Address | [address] | | | [place] [address] | + + + | Home Phone [...] Team Providers + +------+ + | Care Biological Scientist Name | Role | Phone | + [...] BELOW KNEE | | 2018 | | [facility] | MD [address] | AMPUTATION | | | | Admitting Desk | [facility] | | | | | Located on the 9 | [place], [place] | | | | | floor [address] [facility] | [address] | | | | | [facility] | [phone] | | | | | [place], [place] | | | | | | [address] | | | +--------+---------+ + + + [...] Pressure | 114/77 | 02/11/2018 8:49 AM | | | | | PDT | | + + + + + | Pulse | 69 | 02/11/2018 8:49 AM | | | | | PDT | | + + + + + | Temperature | 36.6 C (97.9 F) | 02/11/2018 8:49 AM | | | | | PDT | | + + + + + | Respiratory Rate | 16 | 02/11/2018 8:49 AM | | | | | PDT | | + + + + + | Oxygen Saturation | 100% | 02/11/2018 8:49 AM | | | | | PDT | | + + + + + | Inhaled Oxygen | - | - | | | Concentration | | | | + + + + + | Weight | 139.7 kg (308 lb) | 02/06/2018 10:00 AM | | | | | PDT | | + + + + + | Height | 172.7 cm (5' 8") | 02/06/2018 10:00 AM | | | | | PDT | | + + + + + | Body Mass Index | 46.83 | 02/06/2018 10:00 AM | | | [...] documented as of this encounter Discharge Summaries Pierre Dean DO - 02/11/2018 12:26 PM PDT [facility] DEPART[facility] OF ORTHOPAEDICS & REHABILITATION INPATIENT HOSPITAL DISCHARGE SUMMARY & INTERDISCIPLINARY INSTRUCTIONS Patient: Tati Cage CSN: [id number] Admission Date: 02/06/2018 Discharge Date: 02/11/2018 Attending Physician: Haydee Basurto MD PCP: Santo Gooden MD Service: [facility] Orthopaedics & Rehabilitation Diagnoses Principal Final [...] they suspect your wound is infected. Call [facility] Orthopedics first at [phone]. Activity Non-weight bearing on left leg. Restrictions: no range of motion restrictions. Encourage to perform extension exercises on left leg. OK to use knee scooter Condition on Discharge Stable Follow-Up Appointments ORTHOPEDICS OUTPATIENT CLINIC: 02/19/2018 2:20 PM Haydee Basurto [facility] Orthopaedics & Rehabilitation [phone] [place] PCP: As needed for any medical [...] administration instructions. - Call Orthopedic Clinic at [phone] if any persistent, localized swelling that does [...] and ask for the orthopaedic surgery resident medication technician. Additional Post-Op Instructions / What to Expect [...] feel that you will need more, call [phone] during business hours in order to get [...] Pierre Dean DO Orthopedic Surgery Resident Pager [phone] [facility] Department of Orthopaedics & Rehabilitation [address] [place] [address] Mail Code: OP31 [facility] [address] documented in this e ncounter Discharge Instructions Instructions Lanette Brantley MSW - 02/07/2018AMPUTEE RESOURCES: http://www.[employer]/new-patient/ampower/Pages/Home.aspx http://www.[employer]/new-patient/ampower/ed-resources/Pages/Tznyu-itj-Xavhstgtet.asp x http://www.farvq0xmdo.org.au/news-events/news/ylulzoayd-dpkxmf-zkjzcjifaz-ay-yest-tjdaiclo- jhy-wrkxh-hzabggjh MENTAL HEALTH/SUICIDE PREVENTION RESOURCES [facility] is a 24-hour behavioral and mental health services center, providing immediate psychi atric care and a path to recovery for people experiencing a mental health crisis. Address: [facility], [address] [place] [id number] Hours: 24 hours/day, 7 days a week, no appointment needed NATIONAL CRISIS LINES 25/03 National Suicide Prevention Lifeline 5-428-553-TALK (7494) Hearing and Speech Impaired 2-251-006-4TTY (9564) 25/03 Mental Health Treatment Referral Line 3-219-542-HELP ([phone]) [facility] CRISIS SERVICES For emergencies or life threatening situations, please call [facility] Mental Health Crisis Line [phone] (24 hours a day, 7 days a week) [facility] Mental health services for adults, children, and families; walk-ins welcome. Access informa tion and referral line for [place]'s services in housing, recovery and assistance. Address: [facility]/Referral service [address] [place] [address] (Near [address] [place] [address]) [place], [address] Transit: [employer] Hours: 7 a.m.-10:00 p.m, 7 days a week. 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 Catheter has been off all night and patient reports never needing to bolus. Wou ld like to go home today. Objective: [...] mg daily - Other: - Pre-chemotherapy TTE completed- Dispo: - Discharge planned for today - Orthopaedic Follow-up: As scheduled or the patient should call to schedule/confirm a follow up appo intment with Orthopaedic Oncology approximately 2 weeks from discharge for wound check and s uture removal. Pierre Dean DO Orthopedic Surgery Resident Pager [phone] Pierre Purcell DO - 07/2018 11:43 AM PDT [facility] DEPARTMENT OF ORTHOPAEDICS & REHABILITATION PROGRESS NOTE [...] Pierre Dean DO Orthopedic Surgery Resident Pager [phone] hJesusita chang NP - 02/10/2018 11:24 AM PDT INPATIENT ADULT PAIN SERVICE PERIPHERAL [...] 6/10. Specific ac tivities that exacerbate Ms. Elizabeths [...] needed, APS to remove block tomorrow TRUDI Liu. Increase gabapentin to 900 TID. Order placed. [...] Jesusita Mccullough NP Adult Pain Service Pager [phone] Team Pager [phone] Pierre Purcell DO - 02/09/2018 1:34 PM PDT [facility] DEPARTMENT OF ORTHOPAEDICS & REHABILITATION PROGRESS NOTE [...] mg daily - Other: - Pre-chemotherapy TTE ordered- Dispo: - Pending clinical course, likely home Saturday- Orthopaedic Follow-up: As scheduled or the patient should call to schedule/confirm a follow up appo intment with Orthopaedic Oncology approximately 2 weeks for discharge. Pierre Dean DO Orthopedic Surgery Resident Pager [phone] John Crawley - 02/10/20 12:59 PM PDTTransthoracic echocardiogram completed. Final report to follow. Macie Ambriz MD - 2017 10:05 AM PDT INPATIENT PROGRESS NOTE Hospital Day:3 Author; MACIE [...] orals. Once on orals will d/c home. Sho Lindsay MD - 02/09/2018 8:01 AM PDTFormatting of this note might be different from the orig inal. INPATIENT ADULT PAIN SERVICE PERIPHERAL NERVE BLOCK PROGRESS NOTE 02/09/2018 Author: ARNOLD STREET MD Adult Pain Service Attending Physician: Arnold [...] 8/10. Specific ac tivities that exacerbate Ms. Elizabeths pain include cannot [...] and summary of old medical records (source: [employer]), as summarized in the body of the note. Discussion of case with another healthcare provider nurse. Please page APS #[phone] with questions and concerns. ARNOLD STRE[address] MD Arnold Lindsay MD - 02/08/2018 9:45 AM PDTFormatting of this note might be different f rom the original. INPATIENT ADULT PAIN SERVICE PERIPHERAL NERVE BLOCK PROGRESS NOTE 02/08/2018 Author: ARNOLD STRE[address] MD Adult Pain Service Attending Physician: Arnold [...] 10/10. Specific a ctivities that exacerbate Ms. Cage's pain include cannot [...] and summary of old medical records (source: [employer]), as summarized in the body of the note. Discussion of case with another healthcare provider nurse. Please page APS #[phone] with questions and concerns. ARNOLD STRE[address] MD a, Naeem Mckeon MD - 02/08/2018 9:05 AM PDTFormatting of this note might be different from the origi nal. [facility] DEPARTMENT OF ORTHOPAEDICS & REHABILITATION PROGRESS NOTE [...] discharge. HAYDE FLORES MD Orthopaedics PGY-3 Pager: [phone] oung, Gualberto Watson MD - 02/08/2018 8:57 AM PDTPt sleeping PE: Ht 1.727 m (5' 8"), Wt 139.7 kg (308 lb), BP 121/61, Pulse 89, Temperature 36.9 C (98.4 F), RR 18, SpO2 98%, BMI 46.83 kg/(m^2). dsg c/d/I A/P: s/p L BKA -OOB -sciatic catheter per APS -likely dc Saturday Hayde Manjarrez MD - 02/07/2018 8:51 AM PDT [facility] DEPARTMENT OF ORTHOPAEDICS & REHABILITATION PROGRESS NOTE [...] ASA 325 mg daily - Other: - None- Dispo: - Pending clinical course- Orthopaedic Follow-up: As scheduled or the patient should call to schedule/confirm a follow up appo intment with Orthopaedic Oncology approximately 2 weeks for discharge. HAYDE FLORES MD Orthopaedics PGY-3 Pager: [phone] Madiha Gonzales FNP - 02/07/2018 7:54 AM PDTFormatting of this note might be different from the vic schaefer INPATIENT ADULT PAIN SERVICE PERIPHERAL NERVE BLOCK [...] Tati Elizabeths pain include most activities. Ms. Elizabeths pain is impr davis by PNB. Ms. [...] on file Social History Narrative Works in [employer] at a [employer] near [place]. No kids. Lives with her mother Kika. [...] by primary care team. Madiha Rebollar DNP, COMPENSATION BUSINESS PARTNER-C Adult Pain Service /[facility] [address] [place] [address] NicolásannellPatricio MD - 02/07/2018 7:18 AM PDTGold Surgery Brief Progress Note ID: Tati Cage is a 32 y.o. Woman with synovial sarcoma of the left foot, indicated for tank terminal gauger central venous access, s/p R IJ dual [...] dermabond Pulm: unlabored breathing on RA EXAM: UT CHEST 1 VIEW HISTORY: s/p port placement COMPARISON: CT 01/22/2018 IMPRESSION: Right-sided Port-A-Cath tip in the lower superior vena cava, just above the cavoatrial junc tion. No pneumothorax. A/P Uneventful port a cath placement. OK to use. Contact gold surgery with questions or concerns Remainder of care per primary team Dior Giles MD General Surgery [id number] signed by Patricio Giles MD at 02/07/2018 7:21 AM PD Haydee Dumont MD - 02/07/2018 6:51 AM PDTPt says pain is tolerable. Epidural wasn't w orking last night so she had that removed and got a sciatic nerve catheter. Catheter seems to be working PE: Ht [...] barton today, as patient no longer w epidural. Hayde Cleaning MD - 02/06/2018 5:31 PM PDT [facility] DEPARTMENT OF ORTHOPAEDICS & REHABILITATION PROGRESS NOTE [...] discharge. HAYDE FLORES MD Orthopaedics PGY-3 Pager: [phone] documente d in this encounter Plan of Treatment +--------+ + + + + | Date | Type | Specialty | Care Team | Description | +--------+ + + + + | 03/25/ | Appointment | Radiology | Sandra Patel MD | | | 2018 | | | [address] | | | | | | [place], [place] | | | | | | [address] | | | | | | [phone] | | | | | | | | +--------+ + + + + | 03/25/ | Office | Orthopedics | Haydee Basurto, | | | 2018 | Visit | | [address] | | | | | | [address] | | | | | | [place], [place] | | | | | | [address] | | | | | | [phone] | | | | | | | | +--------+ + + + + | 03/25/ | Office | Hematology & | Sandra Patel MD | | | 2018 | Visit | Oncology | [address] | | | | | | [place], [place] | | | | | | [address] | | | | | | [phone] | | | | | | | | +--------+ + + + + documented as of this encounter Procedures + +--------+ + + + | Procedure Name | Priori | Date/Time | Associated Diagnosis | Comments | | | ty | | | | + +--------+ + + + | TRANSTHORACIC | Routin | 02/09/2018 | | Results for this | | ECHOCARDIOGRAM, | e | 11:45 AM | | procedure are in the | | ADULT | | PDT | | results section. | + +--------+ + + + | PROCEDURE NOTE | Routin | 02/07/2018 | | Results for this | | | e | 11:22 AM | | procedure are in the | | | | PDT | | results section. | + +--------+ + + + | X-RAY TIBIA & FIBULA | Urgent | 02/07/2018 | | Results for this | | 2 VIEWS LT | | 8:57 AM | | procedure are in the | | | | PDT | | results section. | + +--------+ + + + | CBC (HEMOGRAM) ONLY | Urgent | 02/07/2018 | | Results for this | | | | 4:53 AM | | procedure are in the | | | | PDT | | results section. | + +--------+ + + + | BASIC METABOLIC SET | Urgent | 02/07/2018 | | Results for this | | (NA, K, CL, TCO2, | | 4:53 AM | | procedure are in the | | BUN, CR, GLU, CA) | | PDT | | results section. | + +--------+ + + + | CBC ONLY | Urgent | 02/07/2018 | | Results for this | | | | 4:53 AM | | procedure are in the | | | | PDT | | results section. | + +--------+ + + + | PROCEDURE NOTE | Routin | 02/06/2018 | | Results for this | | | e | 8:47 PM | | procedure are in the | | | | PDT | | results section. | + +--------+ + + + | OPERATION RECORD | | 02/06/2018 | | Results for this | | | | 7:40 PM | | procedure are in the | | | | PDT | | results section. | + +--------+ + + + | X-RAY PORTABLE CHEST | Urgent | 02/06/2018 | | Results for this | | 1 VIEW | | 4:54 PM | | procedure are in the | | | | PDT | | results section. | + +--------+ + + + | PROCEDURE NOTE | Routin | 02/06/2018 | | Results for this | | | e | 3:56 PM | | procedure are in the | | | | PDT | | results section. | + +--------+ + + + | CAPILLARY BLOOD | Routin | 02/06/2018 | Synovial sarcoma | Results for this | | GLUCOSE (NO CHG), | e | 3:53 PM | (HCC) | procedure are in the | | POC | | PDT | | results section. | + +--------+ + + + | SURGICAL PATHOLOGY | Routin | 02/06/2018 | | Results for this | | | e | 2:26 PM | | procedure are in the | | | | PDT | | results section. | + +--------+ + + + | PROCEDURE NOTE | Routin | 02/06/2018 | | Results for this | | | e | 2:20 PM | | procedure are in the | | | | PDT | | results section. | + +--------+ + + + | X-RAY FLUOROSCOPY IN | Urgent | 02/06/2018 | | Results for this | | OR > 1 HOUR | | 1:26 PM | | procedure are in the | | | | PDT | | results section. | + +--------+ + + + | PORT PLACEMENT | Urgent | 02/06/2018 | SYNOVIAL SARCOMA | | | | | 12:18 PM | LEFT FOOT | | | | Surgic | PDT | | | | | al | | | | + +--------+ + + + | LOWER EXTREMITY | Urgent | 02/06/2018 | SYNOVIAL SARCOMA | | | AMPUTATION | | 12:18 PM | LEFT FOOT | | | | Surgic | PDT | | | | | al | | | | + +--------+ + + + | CAPILLARY BLOOD | Routin | 02/06/2018 | Synovial sarcoma | Results for this | | GLUCOSE (NO CHG), | e | 10:48 AM | (HCC) | procedure are in the | | POC | | PDT | | results section. | + +--------+ + + + | INTRAPROCEDURE | Routin | 02/06/2018 | | Results for this | | IMAGING | e | 10:19 AM | | procedure are in the | | | | PDT | | results section. | + +--------+ + + + | INTRAPROCEDURE | Routin | 02/06/2018 | Synovial sarcoma | Results for this | | IMAGING | e | 10:19 AM | (HCC) | procedure are in the | | | | PDT | | results section. | + +--------+ + + + | CARDIOLOGY | | 02/06/2018 | | Results for this | | | | 12:00 AM | | procedure are in the | | | | PDT | | results section. | + +--------+ + + + documented in this encounter Results TRANSTHORACIC ECHOCARDIOGRAM, ADULT (02/09/2018 11:45 AM PDT) + + + + + + | Component | Value | Ref Range | Performed | Pathologist | | | | | At | Signature | + + + + + + | BIPLANE, EF | 66 | | [facility] | | | | | | OF | | | | | | CARDIOLOGY | | + + + + + + | EJECTION | 65 to 70 | | [facility] | | | FRACTION | | | OF | | | | | | CARDIOLOGY | | + + + + + + | LA | 3.2 | | [facility] | | | DIMENSION | | | OF | | | | | | CARDIOLOGY | | + + + + + + | LVIDD | 4.7 | | [facility] | | | | | | OF | | | | | | CARDIOLOGY | | + + + + + + | MV A VMAX | 0.6 | | [facility] | | | | | | OF | | | | | | CARDIOLOGY | | + + + + + + | MV E? | 0.1 | | [facility] | | | | | | OF | | | | | | CARDIOLOGY | | + + + + + + | MV E VMAX | 0.9 | | [facility] | | | | | | OF | | | | | | CARDIOLOGY | | + + + + + + | RVSP | 26 | | [facility] | | | | | | OF | | | | | | CARDIOLOGY | | + + + + + + | RV TAPSE | 2.0 | | [facility] | | | | | | OF | | | | | | CARDIOLOGY | | + + + + + + | RV TDI S? | 12.0 | | [facility] | | | | | | OF | | | | | | CARDIOLOGY | | + + + + + + | EJECTION | 67.5 | % | [facility] | | | FRACTION | | | OF | | | RANGE MEAN | | | CARDIOLOGY | | | VALUE | | | | | + + + + + + + + | Specimen | + + | | + + + +------ + | Narrative | Perfo rmed At | + +------ + | [facility] | [facility] OF | | and [facility] Adult Echocardiography | CARDI OLOGY | | Laboratory [address] [place] [address], | | | [place] [address] Pt Name: | | | TATI CAGE Study Date/Time 02/09/2018 / 11:45:04 | | | AMMRN: [id number] Most recent | | | prior: -Acc #: [id number] No. previous | | | echos: 0DOB: 1985 32 years Heart Rate: | | | 78 bpmHeight: 68.0 in Blood | | | Pressure: 121/61 mm/HgWeight: 308.0 | | | lb Gender: | | | FBSA: 2.46 m2 Order | | | ID: [id number] Baggage Clerk: John Gonzalez MA, | | | RDCSSonographer 2:Referring Provider: Haydee Pastor Location: | | | 9KModalities Performed: 2D, Color flow, Spectral Doppler and Lumason | | | contrast.Study Quality: Good.Exam Indication: Cardiotoxic | | | therapiesHistory: Pre chemotherapy, recent leg amputation, Patient | | | history has been obtained from the EHR Transthoracic Echocardiographic | | | Report | | | + +Final | | | Impressions: | | | | | | | | | | | | | | | 1. The left | | | ventricular cavity size is normal. 2. The | | | LV function is | | | normal. | | | 3. Right ventricular size, thickness and function | | | are normal. | | | 4. No | | | significant valvular abnormalities seen. | | | 5. There are no prior exams available for | | | comparison. | | | | | | | | | + + LV | | | Function & Strain Data | | | Table:+ + +-------+-------+Study Date:LVEF | | | (Biplane) GLS 3D | | | LVEF+ + +-------+-------+02/09/2018 6 | | | 5.6 % -18.4 %67.0 % | | | + + +-------+-------+ Description of Findings: | | | Cardiac Rhythm: Normal sinus rhythm.Left Ventricle: The left | | | ventricular cavity size is normal. Visually estimated left ventricular | | | ejection fraction is 65 - 70%. The 3D Volumetric LVEF is 67.0 %. The | | | global longitudinal strain is -18.4 %. The LV diastolic filling | | | pattern is normal. The ejection fraction is 65.6 % as measured by | | | Martines's biplane method. The LV function is normal. Due to poor | | | endocardial definition, ultrasound contrast was used (Lumason).Left | | | Ventricular Wall Motion: Left ventricular systolic thickening is | | | normal in all segments.Atria: Left atrial size is normal. Normal right | | | atrium.Right Ventricle: Right ventricular size, thickness and | | | function are normal. TAPSE measures 2.0cm. The RV TDI s' velocity is | | | 12cm/sec.Aortic Valve: The aortic valve is trileaflet and normal in | | | structure and function. No indication of aortic valve | | | regurgitation.Mitral Valve: The mitral valve is structurally normal. | | | No evidence of mitral valve regurgitation.Tricuspid Valve: The | | | tricuspid valve is structurally normal. Trace tricuspid regurgitation. | | | The tricuspid regurgitant velocity is 2.41 m/s, and with an assumed | | | right atrial pressure of 3 mmHg, the estimated right ventricular | | | systolic pressure is normal at 26.2 mmHg.Pulmonic Valve: The pulmonic | | | valve is structurally normal. The peak trans pulmonic gradient is 4.8 | | | mmHg.Aorta: Visualized portions of the ascending aorta and aortic root | | | appear normal.Venous: Inferior vena cava is normal with normal | | | inspiratory collapse.Pericardium: No pericardial effusion is seen. | | | Additional Findings: There are no prior exams.2D | | | Measurements Doppler Measurements | | | 2D NL Values | | | Aortic MitralLVID(d) 4.68 (3.5-5.7cm) | | | Max Erik 1.72 Peak E 0.87 | | | cm | | | m/s | | | m/sLVID(s) 3.07 Mean grad | | | 6.5 Peak A 0.61 | | | cm | | | mmHg m/sIVS(d) 1.23 (0.6-1.1cm) | | | LVOT Erik 1.32 E/A 1.42 | | | cm | | | m/s RatioLVPW(d) 1.22 | | | (0.6-1.1cm) TDI 7.9 | | | | | | cm | | | (E/e')LA A/Ps 2D 3.17 (2.7-3.9cm) LVOT Diam 2.28 MV mn | | | gd | | | cm cmLA vol A/L | | | 44.0 (40-73ml) | | | Tricuspid PulmonicBP | | | ml TR Vmax 2.41 PV | | | Vmax 1.1LA vol A/L 17.9 (16-34) | | | m/s | | | m/sindex ml/m2 RA Press 3 | | | mmHg RVOT | | | VTI RVSP | | | 26 PV mn gd 3 mmHgBiplane EF 65.6 | | | % mmHgGLS | | | % -18.4 | | | % Aorta: | | | Index: | | | Asc | | | Ao 3.14 | | | (prox) cmEvaluation of chamber size and geometry is | | | accomplished through the incorporation of linear, volumetric, and | | | indexed values Report electronically signed by: [id number] Justin | | | Malachi DIAS (02/09/2018, 3:09:17 PM) Final | | |Report electronically signed by: [id number] Justin Ly MD (02/09/2018, 3:09:17 | | |PM) | | | | | | | | | | | | Final | | + +------ + + + | Procedure Note | + + | Interface, Cardiology Results - 02/09/2018 3:09 PM [facility] Micromuscle | | [facility] Echocardiography Laboratory [address] [place] [address] | | [place], [place] [address] Pt Name: TATI WILKERSON | | CAGE Study Date/Time 02/09/2018 / 11:45:04 AMMRN: [id number] [facility] | | recent prior: -Acc #: [id number] No. previous echos: 0DOB: 1985 32 | | years Heart Rate: 78 bpmHeight: 68.0 in Blood Pressure: 121/61 | | mm/HgWeight: 308.0 lb Gender: FBSA: 2.46 m2 | | Order ID: [id number] Baggage Clerk: John Gonzalez MA, RDCSSonographer | | 2:Referring [...] values Report | | electronically signed by: [id number] Justin Ly MD (02/09/2018, 3:09:17 PM) | [...] | | | |Report electronically signed by: [id number] Justin Ly MD (02/09/2018, 3:09:17 | |PM) | | | | | | | | Final | + + + + + + + | Performing | Address | City/State/Zipcode | Phone Number | | Organization | | | | + + + + + | [facility] | [address] | [place], [place] | | | CARDIOLOGY | [address] | [address] | | + + + + + PROCEDURE NOTE (02/07/2018 11:22 AM PDT)X-RAY TIBIA & FIBULA 2 VIEWS LT (02/07/2018 8:57 A M PDT) + + | Specimen | + + | | + + + + + | Narrative | Performed At | + + + | EXAM: TIBIA AND FIBULA 2 VIEWS LT HISTORY: Post-op. | [facility] | | COMPARISON: None. FINDINGS: There has been a recent | RADIOLOGY VOICE | | transdiaphyseal, mid tibial and fibular amputations. The surgical | RECOGNITION 2 | | margins are well-defined. Subcutaneous swelling and gas in the distal | | | stump soft tissues are expected postoperatively. 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 | | | I have personally reviewed the images and, if necessary, edited the | | | report. I agree with the report as now presented. Final | | | signature: Dex Hall MD 02/07/2018 10:07 AM Preliminary: Dex | | | Sue Hall MD Dictation initiated: Dex Hall MD | | | 02/07/2018 10:04 AM | | + + + + [...] report as now presented. Final signature: Dex Rogers | Minerva Hall MD 02/07/2018 10:07 AM Preliminary: Dex [...] 02/07/2018 10:04 AM | + + + +---------+ + + | Performing | Address | City/State/Zipcode | Phone Number | | Organization | | | | + +---------+ + + | [facility] | | | | | VOICE RECOGNITION 2 | | | | + +---------+ + + CBC (HEMOGRAM) ONLY (02/07/2018 4:53 AM PDT) + + + + + + | Component | Value | Ref Range | Performed | Pathologist | | | | | At | Signature | + + + + + + | WHITE CELL | 8.94 | 3.50 - 10.80 | [facility] | | | COUNT | | K/cu mm | LABORATORY | | | | | | SERVICES, | | | | | | CORE | | + + + + + + | RED CELL | 3.58 (L) | 4.00 - 5.20 | [facility] | | | COUNT | | M/cu mm | LABORATORY | | | | | | SERVICES, | | | | | | CORE | | + + + + + + | HEMOGLOBIN | 10.8 (L) | 12.0 - 16.0 | [facility] [...] 88.8 | 80.0 - 100.0 fL | [facility] [...] 39.6 | 35.1 - 46.3 fL | [facility] | | | | | | LABORATORY | | | | | | SERVICES, | | | | | | CORE | | + + + + + + | PLATELET | 289 | 150 - 400 K/cu | [facility] [...] [facility] | [address] | [place] [address] | | | SERVICES, CORE | [address] | | | + + + + + BASIC METABOLIC SET (NA, K, CL, TCO2, BUN, CR, GLU, CA) (02/07/2018 4:53 AM PDT) + +---------+ + + + | Component | Value | Ref Range | Performed | Pathologist | | | | | At | Signature | + +---------+ + + + | GLUCOSE, | 98 | 70 - 99 mg/dL | [facility] [...] +---------+ + + + | CREATININE | 0.66 | 0.60 - 1.10 | [facility] | | | PLASMA | | mg/dL | LABORATORY | | | (LAB) | | | SERVICES, | | | | | | CORE | | + +---------+ + + + | EGFR | >60 | >60 mL/min | [facility] | | | - | | | LABORATORY | | | PALESTINIAN | | | SERVICES, | | | [...] +---------+ + + + | POTASSIUM, | 4.0 | 3.4 - 5.0 | [facility] | [...] +---------+ + + + | POTASSIUM | Sl Hemo | | [facility] | | | CMNT | | | LABORATORY | | | | | | SERVICES, | | | | | | CORE | | + +---------+ + + + + + | Specimen | + + | Blood | + + + + + | Narrative | Performed At | + + + | Sample hemolyzed. Results for K, Total Bili, Direct Bili, AST, | [facility] | | LDH, or HDL may be inaccurate. Refer to comment under test result. | LABORATORY | | GFR is estimated using the MDRD equation recommended by the National | SERVICES, CORE | | Kidney Disease Education Program. Estimated GFR Interpretive | | | Information: <60 mL/min/1.73 sq m Chronic | | | Kidney Disease <15 mL/min/1.73 sq m | | | Kidney Failure Estimated GFR greater that 60 mL/min/1.73 sq m is of | | | limited clinical value. The MDRD equation is not valid in the | | | following situations: - Patients under 18 years of age - Severe | | | malnutrition or obesity - Vegetarian diet - Rapidly changing kidney | | | function - Amputees, paraplegics, or other muscle-wasting diseses | | + + + + + + + + | Performing | Address | City/State/Zipcode | Phone Number | | Organization | | | | + + + + + | [facility] | [address] | [place] [address] | | | SERVICES, [facility] [place] | [address] | | | + + + + + PROCEDURE NOTE (02/06/2018 8:47 PM PDT) + + + | Narrative | Performed At | + + + | Patricio Giles MD 02/06/2018 1:51 PM The | | | Department of Surgery Brief Operative Note: Author: Dior Ann | | | MD Tisha Attending Physician: Macie Loredo MD 02/06/2018, 1:48 | | | PM Procedure Date: 02/06/2018, 1:48 PM Surgeon: Macie | | | Facundo DIAS Assistants: Dior Giles MD Preoperative | | | Diagnosis: 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 Postoperative | | | Diagnosis: same Procedure Performed: placement of right internal | | | jugular dual lumen MRI compatible port under ultrasound guidance; | | | intraoperative interpretation of fluoroscopy Findings: placement | | | in RIJ under ultrasound guidance with first attempt | | | Anaesthesia: GETA Estimated Blood Loss: 10 mL Fluids: per | | | anesthesia mL UOP: per anesthesia Specimens: none | | | Drains: none Complications: None apparent Condition: Good | | | Disposition: PACU then floor Immediate post op Plan: CXR in | | | PACU OK to access port Remainder of care per primary orthopedic | | | surgery Dior Giles MD 02/06/18 1:48 PM General | | | Surgery, R3 | | + + + OPERATION RECORD (02/06/2018 7:40 PM PDT) + + | Procedure Note | + + | Haydee Basurto MD - 02/06/2018 7:40 PM PDT Date of Service: 02/06/2018 | | Attending Surgeon: Haydee Basurto MD Citrus Picker(s): Hayde | | Mike Flores MD. Preoperative [...] | MDYD/MODLDD: 02/06/2018 15:36:23DT: 02/06/2018 19:40:30Job #: [id number] | + + X-RAY PORTABLE CHEST 1 VIEW (02/06/2018 4:54 PM PDT) + + | Specimen | + + | | + + + + + | Narrative | Performed At | + + + | EXAM: UT CHEST 1 VIEW HISTORY: s/p port placement | [facility] | | COMPARISON: CT 01/22/2018 FINDINGS: Right-sided Port-A-Cath has | RADIOLOGY VOICE | | been placed with tip projecting in the lower superior vena cava, just | RECOGNITION 2 | | above the cavoatrial junction. Lung volumes are low. There is minimal | | | bilateral atelectasis. No consolidation. No pulmonary edema. | | | Cardiomediastinal silhouette unremarkable for low lung volumes. There | | | is no pneumothorax. IMPRESSION: Right-sided Port-A-Cath tip in | | | the lower superior vena cava, just above the cavoatrial junction. No | | | pneumothorax. Low lung volumes with minimal scattered atelectasis. | | | No consolidation. I have personally reviewed the images and, if | | | necessary, edited the report. I agree with the report as now | | | presented. Final signature: Roland Wu MD 02/06/2018 5:09 | | | PM Preliminary: Roland Wu MD Dictation initiated: | | | Roland Wu MD 02/06/2018 5:08 PM | | + + + + + | Procedure Note | + + | Service Account, [employer] [facility] In Interface - 02/06/2018 5:11 PM PDT EXAM: UT CHEST 1 | | VIEW HISTORY: s/p [...] 02/06/2018 5:08 PM | + + + +---------+ + + | Performing | Address | City/State/Zipcode | Phone Number | | Organization | | | | + +---------+ + + | [facility] | | | | | VOICE RECOGNITION 2 | | | | + +---------+ + + PROCEDURE NOTE (02/06/2018 3:56 PM PDT) + + + | Narrative | Performed At | + + + | Hayde Flores MD 02/06/2018 3:58 PM [facility] & | | | [facility] Department of Orthopaedics & Rehabilitation | | | BRIEF OPERATIVE NOTE | | | Patient: Tati Cage | | | | | | CSN: [id number] | | | Date: 02/06/2018 | | | Attending | | | Surgeon: Haydee Basurto MD Citrus Picker(s): 1. 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 same | | | Procedure(s) Performed: 1. Left transtibial amputation | | | Anesthesia Type: General & Regional Estimated Blood | | | Loss: 300 mL IV Fluids: per anesthesia Urine Output: Please | | | see the anesthesia record Tourniquet Time: 0 minutes | | | Complications: None Apparent Orthopaedic Implants: 1. None | | | Specimens: 1. Left leg for pathology Drains: None | | | Findings in Brief: 1. see dictated note Disposition: | | | Transferred from the OR in stable condition. POST PROCEDURE PLAN: | | | 1. Weight Bearing: non-weight bearing, left lower extremity 2. | | | Acute pain: oral analgesia and epidural, managed by the acute pain | | | service 3. Diet: regular diet, advance as tolerated 4. | | | Antibiotics: ceFAZolin, for 24 hours perioperatively 5. Special | | | Concerns: post-op imaging ordered, case managment for discharge | | | planning 6. Barton: please D/C barton as soon as able, not prior to | | | epidural removal. 7. PACU Disposition: Admit to ortho and transfer | | | to the hospital childers, acute care 8. Medications: Resume home | | | medications as indicated 9. VTE prophalaxis: high risk, enteric | | | coated aspirin, 325mg daily, sequential compression devices 10. | | | Anticipated discharge: Likely home Saturday HAYDE FLORES MD | | | [facility] | | | [place] Department of Orthopaedics & Rehabilitation [address] [place] [address] | | | [facility] Mail Code: OP31 [facility] [address] | | | Pager: [phone] | | + + + CAPILLARY BLOOD GLUCOSE (NO CHG), POC (02/06/2018 3:53 PM PDT) + +-------+ + + + | Component | Value | Ref Range | Performed | Pathologist | | | | | At | Signature | + +-------+ + + + | BLOOD | 79 | 70 - 99 mg/dL | [facility] [...] + | [facility] | 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 Left leg, | | [facility] | Electronically | | Pathologic | amputation: Synovial | | DEPARTMENT | signed by Helder | | Diagnosis | sarcoma, with extensive | | OF | Mike Preciado, | | | acute inflammation, | | PATHOLOGY | ,PhD on | | | abscess, and necrosis | | | 02/13/2018 at | | | ,see synoptic report | | | 4:48 PM | | | Margins negative for | | | | | | tumorComment: See prior | | | | | | biopsy ([id number]). Case | | | | | | seen by:Edgard Patel, | | | | | | Pathology Student Fellow | | | | | | Helder Preciado MD PhD | | | | | | / Pathologist My | | | | | [...] + + + + + + | SYNOPTIC | SOFT TISSUE: | | [facility] | | | REPORTS | Resection (Soft | | DEPARTMENT | | | | Tissue Res - All | | OF | | | | Specimens) CLINICAL | | PATHOLOGY | | | | Preresection | | | | | | Treatment: No | | | | | | known preresection | | | | | | therapy SPECIMEN | | | | | | Procedure: Amputa | | | | | | tion of leg. | | | | | | TUMOR Tumor | | | | | | Site: Trunk and | | | | | | extremities | | | | | | Site: Left medial | | | | | | foot. | | | | | | Histologic | | | | | | Type: | | | | | | : Synovial | | | | | | sarcoma NOS | | | | | | Histologic Grade | | | | | | (FNCLCC): Grade 2 | | | | | | Tumor | | | | | | Size: Greatest | | | | | | dimension in Centimeters | | | | | | (cm): 8.2 Centimeters | | | | | | (cm) Accessory | | | | | | Findings: | | | | | | Mitotic | | | | | | Rate: 14 mitoses | | | | | | per 10 High Power Iqbal | | | | | | (HPF) Necrosis | | | | | | (macroscopic or | | | | | | microscopic): Pre | | | | | | sent Extent | | | | | | (%): 80 | | | | | | % Lymphovascular | | | | | | Invasion: Not | | | | | | identified | | | | | | Treatment | | | | | | Effect: No known | | | | | | presurgical therapy | | | | | | MARGINS | | | | | | Margins: Uninvolv | | | | | | ed by sarcoma | | | | | | Distance of Sarcoma from | | | | | | Closest Margin in | | | | | | Centimeters | | | | | | (cm): 11 | | | | | | Centimeters (cm) | | | | | | Closest | | | | | | Margin: soft | | | | | | tissue resection margin | | | | | | LYMPH NODES | | | | | | Regional Lymph | | | | | | Nodes: No lymph | | | | | | nodes submitted or found | | | | | | PATHOLOGIC STAGE | | | | | | CLASSIFICATION (pTNM, | | | | | | AJCC 8th Edition) | | | | | | : Primary | | | | | | Tumor (pT): pT2 | | | | | | Regional Lymph Nodes | | | | | | (pN): pN0 | | | | | | SPECIAL STUDIES | | | | | | Comment(s) | | | | | | Comment(s): Exten | | | | | | sive fibrinopurulent, | | | | | | necrotic material is | | | | | | present, not indicative | | | | | | of true tumor necrosis. | | | | | | See prior biopsy | | | | | | [id number]). Please | | | | | | correlate | | | | | | clinically. | | | | + + + + + + | Gross | Received is one specimen | | [facility] | | | Description | fresh in a container | | DEPARTMENT | | | | labeled with the | | OF | | | | patient's name (initials | | PATHOLOGY | | | | [facility]) and medical record | | | | | | number [id number]. Left | | | | | | leg, amputation: | | | | | | Received labeled "left | | | | | | leg-A" is a left lower | | | | | | extremity amputated | | | | | | through the tibia and | | | | | | fibula with a smooth | | | | | | resection margin (length | | | | | | of leg 29.2 cm; | | | | | | circumference of calf | | | | | | 27.5 cm; foot 25.3 x 9.5 | | | | | | cm). All five digits | | | | | | are present with intact | | | | | | toenails. The anterior | | | | | | skin and soft tissue | | | | | | extends 8.0 cm more than | | | | | | the posterior skin, and | | | | | | the tibia and fibula | | | | | | extend past the anterior | | | | | | soft tissue resection | | | | | | margin by 2.0 and 2.9 | | | | | | cm, respectively. There | | | | | | is a stitch indicating | | | | | | closest margin located | | | | | | 2.8 cm from the medial | | | | | | edge of the anterior | | | | | | soft tissue extension. | | | | | | The skin is diffusely | | | | | | wang-pink with skin | | | | | | slippage (4.5 x 2.8 cm) | | | | | | 4.5 cm inferior to the | | | | | | medial malleolus with | | | | | | two eccentric round | | | | | | ulcerations with | | | | | | fibrinopurulent debris | | | | | | (greatest dimension 0.7 | | | | | | cm), adjacent 2.5 x 1.8 | | | | | | cm wang-brown ecchymosis, | | | | | | and surrounding edema. | | | | | | Also present is a round | | | | | | hyperpigmented papule | | | | | | (0.5 diameter cm) 1.3 cm | | | | | | inferior to the medial | | | | | | malleolus. The resection | | | | | | margin at the stitch is | | | | | | inked black, and the | | | | | | soft tissue resection | | | | | | margins adjacent to the | | | | | | tibia and fibula are | | | | | | inked as follows with | | | | | | the tibia at 12:00: | | | | | | 12:00-3:00, green; | | | | | | 3:00-6:00, purple; | | | | | | 6:00-9:00, orange, | | | | | | 9:00-12:00, blue. The | | | | | | resection margins are | | | | | | taken en face and | | | | | | submitted. The area of | | | | | | skin slippage is | | | | | | serially sectioned from | | | | | | posterior to anterior | | | | | | into 20 slices revealing | | | | | | a 8.2 x 4.9 x 4.0 cm | | | | | | well-circumscribed | | | | | | encapsulated gold-red | | | | | | markedly necrotic, | | | | | | hemorrhagic, centrally | | | | | | cavitary, and possibly | | | | | | partially calcified | | | | | | tumor. Amount of | | | | | | necrosis is estimated to | | | | | | be 80%. The tumor | | | | | | transverses the medial | | | | | | foot from the calcaneous | | | | | | to the first | | | | | | metatarsal. It does not | | | | | | grossly involve the | | | | | | underlying bone. The | | | | | | tumor is located 11.0 cm | | | | | | from the closest soft | | | | | | tissue resection margin | | | | | | at the stitch. | | | | | | Decaler sections | | | | | | are submitted. Summary | | | | | | of cassettes: A1-A2, | | | | | | tibial marginA3, fibular | | | | | | marginA4, tibial nerve | | | | | | and posterior tibial | | | | | | artery and vein margins, | | | | | | en faceA5, superficial | | | | | | fibular nerve margin, en | | | | | | faceA6, anterior tibial | | | | | | artery and veins and | | | | | | deep fibular nerve | | | | | | margins, en faceA7, | | | | | | fibular artery and | | | | | | veins, en faceA8, small | | | | | | saphenous vein, en | | | | | | faceA9, great saphenous | | | | | | vein and saphenous | | | | | | nerve, en faceA10, skin | | | | | | and soft tissue at | | | | | | stitch, en faceA11, skin | | | | | | and soft tissue, | | | | | | 12:00-3:00, en faceA12, | | | | | | skin and soft tissue, | | | | | | 3:00-6:00, en faceA13, | | | | | | skin and soft tissue, | | | | | | 6:00-9:00, en faceA14, | | | | | | skin and soft tissue, | | | | | | 9:00-12:00, en faceA15, | | | | | | central ulceration and | | | | | | underlying [id number], | | | | | | composite section of | | | | | | posterior tumor | | | | | | [id number]-I89, | | | | | | additional composite | | | | | | section of [id number]-M90, | | | | | | additional composite | | | | | | section of hisitV08-S92, | | | | | | additional composite | | | | | | section of incofS23-O51, | | | | | | additional composite | | | | | | section of tumor | | | | | | A31-A32, composite | | | | | | section of anterior | | | | | | ecodwP02, uninvolved | | | | | | skin and soft tissue | | | | | | adjacent to anterior | | | | | | ohfddC04, uninvolved | | | | | | skin and soft tissue | | | | | | adjacent to posterior | | | | | | zwtgiH08, underlying | | | | | | bone with attached soft | | | | | | ygoiavW37, navicular and | | | | | | medial cuneiform bones | | | | | | and asallR21, navicular | | | | | | bone and transverse | | | | | | tarsal jointDD | | | | + + + + + + | Intraoperat | Gross intraoperative | | [facility] | | | russ use | consultation only: A1. | | DEPARTMENT | | | only - | Leg. Left leg: Tumor is | | OF | | | Final | grossly 11.0 cm away | | PATHOLOGY | | | diagnosis | from the closest soft | | | | | listed | tissue resection margin | | | | | separately | (marked with | | | | | | stitch)Pathologist(s): | | | | | | Vilma Ramírez MD - | | | | | | Pathologist | | | | + + + [...] | + + + + + | [facility] | [address] | [place] [address] | | | PATHOLOGY | [address] | | | + + + + + PROCEDURE NOTE (02/06/2018 2:20 PM PDT) + + + | Narrative | Performed At | + + + | Macie Loredo MD 02/06/2018 2:37 PM PATIENT NAME: Tati | | | Rhea SMITH MR#: [id number] : 1985 Date: 02/06/2018 | | | Attending Surgeon: Macie Loredo MD Citrus Picker(s): | | | Jan Giles MD Preoperative Diagnosis(es): 1. | | | Sarcoma Postoperative Diagnosis(es): 1. same Procedures: | | | 1. Insertion of a 10Fr Dual lumen MRI Bard port into right | | | internal jugular vein 2. Ultrasound guided access of the right | | | internal jugular vein Anesthesia: GETA Procedure: The | | | patient was identified and placed on the operating room in supine | | | position with Trendelenberg. The anterior neck and chest were | | | prepared and draped in sterile fashion. The entire procedure was | | | done with local anesthetic 0.25% marcaine with epinephrine. A | | | 14 gauge seeker needle was introduced into the right internal | | | jugular vein with ultrasonographic guidance. Upon return of blood, | | | the syringe was disconnected and a guide wire was passed into the | | | vein. The needle was withdrawn. Fluoroscopy was brought onto the | | | field and confirmed that the wire was in the right atrium. A | | | transverse incision was made in the right infraclavicular skin. | | | Electrocautery was used to fashion a pocket approx 1cm deep to the | | | skin surface and inferior to the incision and anterior to the | | | fascia. A 10Fr Smartport catheter system was assembled and brought | | | onto the field. The port was sutured to the subcutaneous tissue in 3 | | | places with 2-0 Maxon suture. The trochar was attached to catheter. | | | The catheter was tunneled subcutaneously from the right neck to the | | | infraclavicular incision. The catheter was trimmed slightly the hub | | | cover was placed over the proximal end of the catheter the catheter | | | was attached to a 10mL of injectable saline and flushed through | | | with 1-2mL. The wire insertion site skin was opened transversely | | | with an 11 blade and the subcutaneous tissues were dilated with a | | | mosquito clamp. The wire position was again confirmed with fluoro. | | | The dilator and then the assembled dilator-introducer complex were | | | each passed over the guide wire taking care to ensure that they | | | followed the guide wire freely. The guide wire was withdrawn and the | | | catheter was passed through the introducer toward the right atrium. | | | The introducer was then bivalved out of the patient. Fluoroscopy | | | was then used to ensure that the entire system was in place without | | | loops, kinks or knots and that the tip of the catheter was near the | | | junction of the superior vena cava and the right atrium and the | | | catheter was adjusted appropriately. The catheter roe and flushed | | | freely. The catheter was then trimmed and attached to the port. | | | The previously placed stay sutures were tied. It was then accessed | | | in both ports with a Sanchez needle and syringe of injectable saline. | | | The port aspirated and flushed easily. The port was then again | | | accessed with a Sanchez needle and syringe of hepainized saline | | | (100U/mL). The port aspirated and flushed easily. It was filled with | | | 3-4 mL heparinized saline. The port was de-accessed. The neck | | | incision was closed with interrupted subcuticular 4-0 biosyn suture. | | | The port pocket was closed with 2 layers: interrupted 3-0 vicryl | | | dermal layer and a running subcuticular 4-0 Biosyn suture to the | | | skin. Dermabond was placed over the incision. Estimated blood | | | loss was minimal, there were no complications. The patient tolerated | | | the procedure well. I was present and scrubbed for the entire | | | procedure. A post-operative CXR will be obtained in the recovery | | | unit. Macie Loredo MD Professor Of Criminal Justice Division of | | | Surgical Oncology [facility] | | + + + X-RAY FLUOROSCOPY IN OR > 1 HOUR (02/06/2018 1:26 PM PDT) + + | Specimen | + + | | + + + + + | Narrative | Performed At | + + + | - At the time of the study, no professional interpretation was | | | requested. - | | + + + CAPILLARY BLOOD GLUCOSE (NO CHG), POC (02/06/2018 10:48 AM PDT) + +---------+ + + + | Component | Value | Ref Range | Performed | Pathologist | | | | | At | Signature | + +---------+ + + + | BLOOD | 100 (H) | 70 - 99 mg/dL | [facility] - | | | GLUCOSE, | | [...] + | [facility] | [address] | [place], [place] | | | [facility] | [address] | [address] | | | TESTS | | | | + + + + + INTRAPROCEDURE IMAGING (02/06/2018 10:19 AM PDT) + + | Specimen | + + | | + + + + + | Narrative | Performed At | + + + | See admission or procedure notes for details of any intraprocedure | | | images obtained. | | + + + INTRAPROCEDURE IMAGING (02/06/2018 10:19 AM PDT) + + | Specimen | + + | | + + + + + | Narrative | Performed At | + + + | See admission or procedure notes for details of any intraprocedure | | | images obtained. | | + + + CARDIOLOGY (02/06/2018 12:00 AM PDT) + + + | [...] | acetaminophen (TYLENOL) tablet | Given | 02/12/20 | 1,000 mg | | | | 1,000 mg 1,000 mg, oral, EVERY 6 | | 18 12:41 | | | | | HOURS, First dose on Sat02/07/18 | | PM PDT | | | | | at 1230, Until Discontinued | | | | | | + +--------+ + +------+------+ +-------+ + +---+---+ | Given | 02/12/20 | 1,000 mg | | | | | 18 7:24 | | | | | | AM PDT | | | | +-------+ + +---+---+ | Given | 02/12/20 | 1,000 mg | | | | | 18 12:35 | | | | | | AM PDT | | | | +-------+ + +---+---+ +---+---+ | | | +---+---+ + +-------+ +--------+---+---+ | aspirin EC tablet 325 mg 325 | Given | 02/12/20 | 325 mg | | | | mg, oral, DAILY, First dose on | | 18 8:57 | | | | | Sat02/07/18 at 0900, Until | | AM PDT | | | | | Discontinued | | | | | | + +-------+ +--------+---+---+ +-------+ +--------+---+---+ | Given | 02/11/20 | 325 mg | | | | | 18 8:49 | | | | | | AM PDT | | | | +-------+ +--------+---+---+ | Given | 02/10/20 | 325 mg | | | | | 18 7:47 | | | | | | AM PDT | | | | +-------+ +--------+---+---+ +---+---+ | | | +---+---+ + +-------+ +-------+---+ + | bupivacaine | Given | 02/07/20 | 27 mL | | Surgical | | (MARCAINE,SENSORCAINE) 0.25 % | | 18 1:22 | | | Site | | (2.5 [...] citalopram (CELEXA) tablet 40 | Given | 02/11/20 | 40 mg | | | | mg 40 mg, oral, DAILY, First | | 18 8:16 | | | | | dose on Sat02/06/18 at 1745, Until | | PM PDT | | | | | Discontinued | | | | | | + +-------+ +-------+---+---+ +-------+ +-------+---+---+ | Given | 02/10/20 | 40 mg | | | | | 18 7:55 | | | | | | PM PDT | | | | +-------+ +-------+---+---+ | Given | 02/09/20 | 40 mg | | | | | 18 9:09 | | | | | | PM PDT | | | | +-------+ +-------+---+---+ +---+---+ | | | +---+---+ + +-------+ +------+---+---+ | clonazePAM (KLONOPIN) tablet 1 | Given | 02/12/20 | 1 mg | | | | mg 1 mg, oral, THREE TIMES DAILY | | 18 12:41 | | | | | NEEDED, Starting Sat02/07/18 | | PM PDT | | | | | at 1151, Until Sat02/11/18 at | | | | | | | 2223, anxiety | | | | | | + +-------+ +------+---+---+ +-------+ +------+---+---+ | Given | 02/11/20 | 1 mg | | | | | 18 10:08 | | | | | | AM PDT | | | | +-------+ +------+---+---+ | Given | 02/10/20 | 1 mg | | | | | 18 11:17 | | | | | | AM PDT | | | | +-------+ +------+---+---+ +---+---+ | | | +---+---+ + +-------+ +--------+---+---+ | gabapentin (NEURONTIN) capsule | Given | 02/12/20 | 900 mg | | | | 900 mg 900 mg, oral, THREE TIMES | | 18 3:09 | | | | | DAILY, First dose on Sat02/10/18 | | PM PDT | | | | | at 1600, Until Discontinued | | | | | | + +-------+ +--------+---+---+ +-------+ +--------+---+---+ | Given | 02/12/20 | 900 mg | | | | | 18 8:57 | | | | | | AM PDT | | | | +-------+ +--------+---+---+ | Given | 02/11/20 | 900 mg | | | | | 18 10:26 | | | | | | PM PDT | | | | +-------+ +--------+---+---+ +---+---+ | | | +---+---+ + +-------+ +--------+---+ + | heparin injection | Given | 02/07/20 | 100 mL | | Surgical | | INTRAPROCEDURE PRN, Starting Bettie | | 18 1:22 | | | Site | | 02/06/18 at 1322, Until Bettie 02/06/18 | | PM PDT | | | | | at 1549 | | | | | | + +-------+ +--------+---+ + +---+---+ | | | +---+---+ + +-------+ +-------+---+---+ | hydroCHLOROthiazide | Given | 02/12/20 | 25 mg | | | | (HYDRODIURIL) tablet 25 mg 25 | | 18 8:57 | | | | | mg, oral, DAILY, First dose on | | AM PDT | | | | | 02/07/18 at 0900, Until | | | | | | | Discontinued | | | | | | + +-------+ +-------+---+---+ +-------+ +-------+---+---+ | Given | 02/11/20 | 25 mg | | | | | 18 8:48 | | | | | | AM PDT | | | | +-------+ +-------+---+---+ | Given | 02/10/20 | 25 mg | | | | | 18 7:47 | | | | | | AM PDT | | | | +-------+ +-------+---+---+ +---+---+ | | | +---+---+ + +-------+ +---+---+---+ | hydrocortisone 1 % cream | Given | 02/12/20 | | | | | topical, TWICE DAILY NEEDED, | | 18 8:57 | | | | | Starting 02/08/18 at 2155, | | AM PDT | | | | | Until 02/11/18 at 2223, | | | | | | | multimodal control of itching | | | | | | + +-------+ +---+---+---+ +-------+ +---+---+---+ | Given | 02/11/20 | | | | | | 18 11:55 | | | | | | AM PDT | | | | +-------+ +---+---+---+ | Given | 02/10/20 | | | | | | 18 4:26 | | | | | | PM PDT | | | | +-------+ +---+---+---+ +---+---+ | | | +---+---+ + +-------+ +--------+---+---+ | HYDROmorphone (DILAUDID) | Given | 02/09/20 | 0.3 mg | | | | injection 0.2-0.6 mg 0.2-0.6 mg, | | 18 9:19 | | | | | intravenous, EVERY 2 HOURS | | AM PDT | | | | | NEEDED, Starting [facility] 02/06/18 at | | | | | | | 2144, Until Sat02/11/18 at 2223, | | | | | | | severe pain | | | | | | + +-------+ +--------+---+---+ +---+---+ | | | +---+---+ + +-------+ +-------+---+---+ | loratadine (CLARITIN) tablet 10 | Given | 02/12/20 | 10 mg | | | | mg 10 mg, oral, DAILY, First | | 18 8:57 | | | | | dose on [facility] 02/06/18 at 1745, Until | | AM PDT | | | | | Discontinued | | | | | | + +-------+ +-------+---+---+ +-------+ +-------+---+---+ | Given | 02/11/20 | 10 mg | | | | | 18 8:49 | | | | | | AM PDT | | | | +-------+ +-------+---+---+ | Given | 02/10/20 | 10 mg | | | | | 18 7:47 | | | | | | AM PDT | | | | +-------+ +-------+---+---+ +---+---+ | | | +---+---+ + +-------+ +------+---+---+ | melatonin tablet 3 mg 3 mg, | Given | 02/07/20 | 3 mg | | | | oral, AT BEDTIME NEEDED, | | 18 11:21 | | | | | Starting [facility]ettie 02/06/18 at 2144, | | PM PDT | | | | | Until 02/11/18 at 2223, | | | | | | | insomnia | | | | | | + +-------+ +------+---+---+ +---+---+ | | | +---+---+ + +-------+ + +---+ + | NaCl 0.9 % irrigation | Given | 02/07/20 | 1,000 mL | | Surgical | | INTRAPROCEDURE PRN, Starting [facility] | | 18 1:12 | | | Site | | 02/06/18 at 1312, Until Bettie 02/06/18 | | PM PDT | | | | | at 1549 | | | | | | + +-------+ + +---+ + +---+---+ | | | +---+---+ + +-------+ +---+---+---+ | nystatin (MYCOSTATIN) powder | Given | 02/12/20 | | | | | topical, TWICE DAILY, First dose | | 18 8:57 | | | | | on Sat02/07/18 at 0000, Until | | AM PDT | | | | | Discontinued | | | | | | + +-------+ +---+---+---+ +-------+ +---+---+---+ | Given | 02/11/20 | | | | | | 18 8:49 | | | | | | AM PDT | | | | +-------+ +---+---+---+ | Given | 02/10/20 | | | | | | 18 8:53 | | | | | | PM PDT | | | | +-------+ +---+---+---+ +---+---+ | | | +---+---+ + +-------+ +-------+---+---+ | oxyCODONE (immediate release) | Given | 02/12/20 | 10 mg | | | | (ROXICODONE) tablet 5-15 mg 5-15 | | 18 1:18 | | | | | mg, oral, EVERY 3 HOURS | | PM PDT | | | | | NEEDED, Starting [facility]ettie 02/06/18 at | | | | | | | 2027, Until Sat02/11/18 at 2223, | | | | | | | moderate pain | | | | | | + +-------+ +-------+---+---+ +-------+ +-------+---+---+ | Given | 02/12/20 | 10 mg | | | | | 18 8:57 | | | | | | AM PDT | | | | +-------+ +-------+---+---+ | Given | 02/12/20 | 10 mg | | | | | 18 4:54 | | | | | | AM PDT | | | | +-------+ +-------+---+---+ +---+---+ | | | +---+---+ + +-------+ +------+---+---+ | polyethylene glycol (MIRALAX) | Given | 02/12/20 | 34 g | | | | packet 34 g 34 g, oral, THREE | | 18 5:42 | | | | | TIMES DAILY NEEDED, Starting | | AM PDT | | | | | Bettie 02/06/18 at 2144, Until Tue | | | | | | | 02/11/18 at 2223, 1st line - for | | | | | | | no BM for 2 days | | | | | | + +-------+ +------+---+---+ +-------+ +------+---+---+ | Given | 02/11/20 | 34 g | | | | | 18 4:19 | | | | | | PM PDT | | | | +-------+ +------+---+---+ | Given | 02/10/20 | 17 g | | | | | 18 8:53 | | | | | | PM PDT | | | | +-------+ +------+---+---+ +---+---+ | | | +---+---+ + +-------+ +---------+---+---+ | senna-docusate (SENOKOT S) | Given | 02/12/20 | 2 | | | | 8.6-50 mg 2 tablet 2 tablet, | | 18 8:56 | tablets | | | | oral, TWICE DAILY, First dose on | | AM PDT | | | | | Bettie 02/06/18 at 2145, Until | | | | | | | Discontinued | | | | | | + +-------+ +---------+---+---+ +-------+ +---------+---+---+ | Given | 02/11/20 | 2 | | | | | 18 8:16 | tablets | | | | | PM PDT | | | | +-------+ +---------+---+---+ | Given | 02/11/20 | 2 | | | | | 18 8:48 | tablets | | | | | AM PDT | | | | +-------+ +---------+---+---+ +---+---+ | | | +---+---+ documented in this encounter
--- OUTSIDE RECORDS SUMMARY | ~2019-01-30 | XMS | Encounter Summary ---
Demographics + + + | Address | [address] | | | [place] [address] | + + + | Home Phone [...] Team Providers + +------+ + | Care Electrotype Finisher Name | Role | Phone | + [...] Sb, | | | | | | Synovial | Lynda | | | | | | sarcoma | [address] | | | | | | ([facility] | [address] | | | | | | Procedures | Sarahy Conner | | | | | | CT CHEST WO | [place], [place] | | | | | | CONTRAST | [address] | | | | | | | Phone: | | | | | | | [phone] | | | | | | | Fax: | | | | | | | [phone] | | + +--------+ + + + + Encounter Details +--------+---------+ + + + | Date | Type | Department | Care Team | Description | +--------+---------+ + + + | 08/06/ | Office | [facility] | Lynda Basurto, | 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 | & Rehabilitation at | [address] | ([facility]) (Primary Dx) | | | | [address] | [address] | | | | | [place] Mailcode: | [place], [place] | | | | | [place] for [facility] | [address] | | | | | and Healing, | [phone] | | | | | [address] | | | | | | [place], [place] | | | | | | [address] | | | | | | [phone] | | | +--------+---------+ + + + [...] encounter Progress Notes Lynda Basurto MD - 08/06/2018 2:00 PM PSTDiagnosis: 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 F here for followup. 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 She is now us ing a prosthesis. Her mold is likely to be redone soon. No assistive device. Doing well o therwise. PE: Wt 153.6 kg (338 lb 9.6 oz), BP 135/74, Pulse 81, Temperature 36.7 C (98 F), Temperatur e source Oral, RR 16, SpO2 98%, BMI 51.48 kg/(m^2). Facility age limit for growth percentil es is 18 years. Incision healed. No drainage. No erythema. No tenderness palpation. No skin breakdown. No m asses. No inguinal lymphadenopathy Normal gait with prosthesis Imaging: Reviewed by myself. 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 [...] Ave | | | | | | [place], [place] | | | | | | [address] | | | | | | [phone] | | | | | | | | +--------+ + + + + | 03/25/ | Office | Orthopedics | Lynda Basurto, | | | 2018 | Visit | | [address] | | | | | | [address] | | | | | | [place], [place] | | | | | | [address] | | | | | | [phone] | | | | | | | | +--------+ + + + + | 03/25/ | Office | Hematology & | Sandra Patel MD | | | 2018 | Visit | Oncology | [address] | | | | | | [place], [place] | | | | | | [address] | | | | | | [phone] | | | | | | | | +--------+ + + + + + +---------+--------+ + + | Name | Type | Priori | Associated Diagnoses | Order Schedule | | | | ty | | | + +---------+--------+ + + | CT CHEST WO CONTRAST | Imaging | Routin | Synovial sarcoma | Expected: | | | | e | ([facility]) | 11/04/2018, Expires: | | | | | | 09/06/2019 | + +---------+--------+ + + documented as of this encounter Visit Diagnoses + + | Diagnosis | + + | 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
--- OUTSIDE RECORDS SUMMARY | ~2019-01-30 | XMS | Encounter Summary ---
Demographics + + + | Address | [address] | | | [place] [address] | + + + | Home Phone [...] Team Providers + +------+ + | Care Seismic Engineer Name | Role | Phone | [...] + + | 04/09/ | Office | [facility] | Gualberto BasurtoeRegiotto, | Amputation stump | | 2018 | Visit | & Rehabilitation at | [address] | infection (HCC) | | | | [facility] [address] | [address] | (Primary Dx) | | | | S[place] Mailcode: | [place], [place] | | | | | 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 F here for followup. She is 2 wks s/p I&D L BKA site. There was osteomyeliti s. She is getting IV abx right now. Had some diarrhea with it. Wound itself is healing we ll with one area laterally that she is concerned about. No fevers. Wants to return to work. Pt seen w dr. saavedra of [place]. PE: Wt 142.1 kg (313 lb 3.2 oz), BP 172/99, Pulse 85, Temperature 36.6 C (97.8 F), Temperat ure source Oral, RR 16, SpO2 96%, BMI 47.62 kg/(m^2). Facility age limit for growth percent dayo is 18 years. Incision healing well. Wound closed with the exception of 1 cm laterally where there appear s to be minimal dehiscence. No drainage. No erythema. No tenderness palpation. Knee can get to full extension. A/P: s/p I&D L BKA site, wound healing well -Continue IV antibiotics per infectious disease. -Okay to return to chemotherapy in 2 weeks. Will likely have IV antibiotics through chemot herapy for a total of additional 5 weeks. -Okay to return to work -As long as wound okay and I don't need to see her sooner, patient to return for surveillan ce after chemotherapy complete. documented in this e ncounter Plan of [...] [place] | | | | | | [address] | | | | | | [phone] | | | | | | | | +--------+ + + + + | 03/25/ | Office | Orthopedics | Lynda Basurto, | | | 2018 | Visit | | [address] | | | | | | [address] | | | | | | [place], [place] | | | | | | [address] | | | | | | [phone] | | | | | | | | +--------+ + + + + | 03/25/ | Office | Hematology & | Sandra Patel MD | | | 2018 | Visit | Oncology | [address] | | | | | | [place], [place] | | | | | | [address] | | | | | | [phone] | | | | | | | | +--------+ + + + + documented as of this encounter Visit Diagnoses + + | Diagnosis | + + | 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
--- OUTSIDE RECORDS SUMMARY | ~2019-01-30 | XMS | Encounter Summary ---
Demographics + + + | Address | [address] | | | [place] [address] | + + + | Home Phone [...] Team Providers + +------+ + | Care Terminologist Name | Role | Phone | + +------+ + | Santo Gooden MD | PCP | | + +------+ + Encounter Details +--------+ + + + + | Date | Type | Department | Care Team | Description | +--------+ + + + + | 08/04/ | MyChart | [facility] [address] | | appointment reminder | | 2018 | Encounter | [address] | | | | | | Road [place], [place] | | | | | | [address] | | | +--------+ + + + [...] | | | 2018 | | | [address] | | | | | | [place], [place] | | | | | | [address] | | | | | | [phone] | | | | | | | | +--------+ + + + + | 03/25/ | Office | Orthopedics | Lynda Basurto, | | | 2018 | Visit | | [address] | | | | | | [address] | | | | | | [place], [place] | | | | | | [address] | | | | | | [phone] | | | | | | | | +--------+ + + + + | 03/25/ | Office | Hematology & | Sandra Patel MD | | | 2019 | Visit | Oncology | [address] | | | | | | [place], [place] | | | | | | [address] | | | | | | [phone] | | | | | | | | +--------+ + + + + documented as of this encounter Visit Diagnoses Not on filedocumented in this encounter"
--- OUTSIDE RECORDS SUMMARY | ~2019-01-30 | XMS | Encounter Summary ---
Demographics + + + | Address | [address] | | | [place] [address] | + + + | Home Phone [...] Providers + +------+ + | Care Family Health Nurse Practitioner Name | Role | Phone | + [...] | | 2018 | | [facility] | [address] | | | | | for Health & Healing | [place], [place] | | | | | [address] | [address] | | | | | Mailcode: [place] | [phone] | | | | | for Health and | | | | | | Healing, [address] | | | | | | [facility] [place] | | | | | | [address] | | | | | | [phone] | | | +--------+ + + + [...] | | | 2018 | | | [address] | | | | | | [place], [place] | | | | | | [address] | | | | | | [phone] | | | | | | | | +--------+ + + + + | 03/25/ | Office | Orthopedics | Rosy BasurtoAlexander, | | | 2018 | Visit | | [address] | | | | | | [address] | | | | | | [place], [place] | | | | | | [address] | | | | | | [phone] | | | | | | | | +--------+ + + + + | 03/25/ | Office | Hematology & | Sandra Patel MD | | | 2018 | Visit | Oncology | [address] | | | | | | [place], [place] | | | | | | [address] | | | | | | [phone] | | | | | | | | +--------+ + + + + documented as of this encounter Visit Diagnoses Not on filedocumented in this encounter"
--- OUTSIDE RECORDS SUMMARY | ~2019-01-30 | XMS | Encounter Summary ---
Demographics + + + | Address | [address] | | | [place] [address] | + + + | Home Phone [...] Team Providers + +------+ + | Care Basic Combatant Swimmer Name | Role | Phone | + [...] | | 2018 | | [facility] | [address] | | | | | for Health & Healing | [place], [place] | | | | | [address] | [address] | | | | | Mailcode: [place] | [phone] | | | | | for Health and | | | | | | [address] [address] | | | | | | [place], [place] | | | | | | [address] | | | | | | [phone] | | | +--------+ + + + [...] [address] | | | | | | [place], [place] | | | | | | [address] | | | | | | [phone] | | | | | | | | +--------+ + + + + | 03/25/ | Office | Orthopedics | Rosy BasurtoAlexander, | | | 2018 | Visit | | [address] | | | | | | [address] | | | | | | [place], [place] | | | | | | [address] | | | | | | [phone] | | | | | | | | +--------+ + + + + | 03/25/ | Office | Hematology & | Sandra Patel MD | | | 2018 | Visit | Oncology | [address] | | | | | | [place], [place] | | | | | | [address] | | | | | | [phone] | | | | | | | | +--------+ + + + + documented as of this encounter Visit Diagnoses + + | Diagnosis | + + | 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
--- OUTSIDE RECORDS SUMMARY | ~2019-01-30 | XMS | Encounter Summary ---
Demographics + + + | Address | [address] | | | [place] [address] | + + + | Home Phone [...] Providers + +------+ + | Care Store Clerk Name | Role | Phone | + +------+ + | Santo Gooden MD | PCP | | + +------+ + Encounter Details +--------+ + + + + | Date | Type | Department | Care Team | Description | +--------+ + + + + | 02/06/ | Pharmacy | [facility] | | | | 2018 | Visit | & [facility] | | | | | | [address] | | | | | | [place], [place] | | | | | | [address] | | | | | | [phone] | | | +--------+ + + + [...] [place] | | | | | | [address] | | | | | | [phone] | | | | | | | | +--------+ + + + + | 03/25/ | Office | Orthopedics | Lynda Basurto, | | | 2018 | Visit | | [address] | | | | | | [address] | | | | | | [place], [place] | | | | | | [address] | | | | | | [phone] | | | | | | | | +--------+ + + + + | 03/25/ | Office | Hematology & | Sandra Patel MD | | | 2018 | Visit | Oncology | [address] | | | | | | [place], [place] | | | | | | [address] | | | | | | [phone] | | | | | | | | +--------+ + + + + documented as of this encounter Visit Diagnoses Not on filedocumented in this encounter"
--- OUTSIDE RECORDS SUMMARY | ~2019-01-30 | XMS | Encounter Summary ---
Demographics + + + | Address | [address] | | | [place] [address] | + + + | Home Phone [...] Team Providers + +------+ + | Care Survey Questionnaire Designer Name | Role | Phone | + +------+ + | Santo Gooden MD | PCP | | + +------+ + Encounter Details +--------+ + + + + | Date | Type | Department | Care Team | Description | +--------+ + + + + | 02/06/ | Procedure | 6A Intra Op [facility] | | | | 2017 | Pass | [facility] | | | | | | Admitting Desk | | | | | | Located on the 9th | | | | | | floor [address] [facility] | | | | | | [facility] | | | | | | [place], [place] | | | | | | [address] | | | +--------+ + + + [...] [place] | | | | | | [address] | | | | | | [phone] | | | | | | | | +--------+ + + + + | 03/25/ | Office | Orthopedics | Lynda Basurto, | | | 2018 | Visit | | [address] | | | | | | [address] | | | | | | [place], [place] | | | | | | [address] | | | | | | [phone] | | | | | | | | +--------+ + + + + | 03/25/ | Office | Hematology & | Sandra Patel MD | | | 2018 | Visit | Oncology | [address] | | | | | | [place], [place] | | | | | | [address] | | | | | | [phone] | | | | | | | | +--------+ + + + + documented as of this encounter Visit Diagnoses Not on filedocumented in this encounter"
--- OUTSIDE RECORDS SUMMARY | ~2019-01-30 | XMS | Encounter Summary ---
Demographics + + + | Address | [address] | | | [place] [address] | + + + | Home Phone [...] Team Providers + +------+ + | Care Artificial Breeding Distributor Name | Role | Phone | + [...] biopsy | | 2018 | Encounter | [facility] [address] | [address] [facility] | site | | | | Ave Mailcode: CH12A | [facility] | | | | | [place] [facility] | [place], [place] | | | | | and | [address] | | | | | Floor [place], [place] | [phone] | | | | | [address] | | | | | | [phone] | | | +--------+ + + + [...] | | | 2018 | | | [address] | | | | | | [place], [place] | | | | | | [address] | | | | | | [phone] | | | | | | | | +--------+ + + + + | 03/25/ | Office | Orthopedics | Lynda Basurto, | | | 2018 | Visit | | [address] | | | | | | [address] | | | | | | [place], [place] | | | | | | [address] | | | | | | [phone] | | | | | | | | +--------+ + + + + | 03/25/ | Office | Hematology & | Sandra Patel MD | | | 2019 | Visit | Oncology | [address] | | | | | | [place], [place] | | | | | | [address] | | | | | | [phone] | | | | | | | | +--------+ + + + + documented as of this encounter Visit Diagnoses Not on filedocumented in this encounter"
--- OUTSIDE RECORDS SUMMARY | ~2019-01-30 | XMS | Encounter Summary ---
Demographics + + + | Address | [address] | | | [place] [address] | + + + | Home Phone [...] Providers + +------+ + | Care Director Corporate Compliance Name | Role | Phone | + [...] | | | | | sarcoma | [address] | [address] | | | | | ([facility]) | Ave | [place] | | | | | Procedures | [facility] [place] | Nakia | | | | | CONSULT TO | [address] | [place] | | | | | ADULT | Phone: | [phone] | | | | | MEDICAL | [phone] | Phone: | | | | | NUTRITIONAL | Fax: | [phone] | | | | | THERAPY | [phone] | | +--------+--------+ + + + + Diagnostic [...] | Synovial | Sandra Schmitt MD | [facility] [address] | | | | | sarcoma | [address] | [address] | | | | | ([facility]) | Ave | Mailcode: | | | | | Procedures | [place], [place] | [address] | | | | | TRANSTHORACI | [address] | for Health | | | | | C | Phone: | and Healing | | | | | ECHOCARDIOGR | [phone] | [place], [place] | | | | | AM WITH | Fax: | [address] | | | | | STRAIN - | [phone] | Phone: | | | | | CARDIO | | [phone] | | | | | MECHANICS, | | | | | | | ADULT [place] | | | | | | | TTE W/DPPLR, | | | | | | | COMP ECHO | | | | | | | to be | | | | | | | done at: | | | | | | | [facility] | | | | | | | [facility] in | | | | | | | [place] | | | +--------+--------+ + + + [...] | Malignant | Lynda, | MD [address] | | | | | neoplasm of | MD [address] | | | | | soft tissue | Federico Azam | [place], [place] | | | | | of left | [address] | [address] | | | | | lower | [place], [place] | Phone: | | | | | extremity | [address] | [phone] | | | | | (HCC) | Phone: | Fax: | | | | | Procedures | [phone] | [phone] | | | | | CONSULT TO | Fax: | | | | | | HEMATOLOGY / | [phone] | | | | | | ONCOLOGY [...] | | for Health & Healing | [place], [place] | | | | | [address] | [address] | | | | | Mailcode: Center | [phone] | | | | | for [facility] and | | | | | | [address] | | | | | | [place], [place] | | | | | | [address] | | | | | | [phone] | | | +--------+---------+ + + + [...] Pressure | 142/104 | 01/23/2018 12:28 PM | MD NOTIFIED | | | | PDT | | + + + + + | Pulse | 88 | 01/23/2018 12:28 PM | | | | | PDT | | + + + + + | Temperature | 36.4 C (97.6 F) | 01/23/2018 12:28 PM | | | | | PDT | | + + + + + | Respiratory Rate | 16 | 01/23/2018 12:28 PM | | | | | PDT | | + + + + + | Oxygen Saturation | 99% | 01/23/2018 12:28 PM | | | | | PDT | | + + + + + | Inhaled Oxygen | - | - | | | Concentration | | | | + + + + + | Weight | 141 kg (310 lb 12.8 | 01/23/2018 12:28 PM | | | | oz) | PDT | | + + + + + | Height | - | - | | + + + + + | Body Mass Index | 47.26 | 01/15/2018 10:06 AM | | | | | PDT | | + + + + + documented in this encounter Progress Notes Sandra Patel MD - 01/23/2018 12:10 PM PDT Display Progress Note in MyChart: Yes MULTI-DISCIPLINARY SARCOMA CLINIC NEW PATIENT CONSULTATION Date: 01/23/2018 Name: Tati Cage : 1985 Home Town: [place], [place] Referring Physician: Sb Reason for Consult: [...] wheelie. Taking ~1x/day vicodin. Accompanied by mother Kika and close friend/co-worker Odalys. ROS: Constitutional: negative [...] on file Social History Narrative Works in [employer] at a [employer] near [place]. No kids. Lives with her mother Kika. Family History Problem Relation Cancer Maternal Grandmother [...] perfused. No edema. Neurologic - Awake, alert. 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 Affect/Psych - Appropriate. Tearful. ECOG - 0 IMAGING: I independently reviewed the following imaging. 01/22/18 CT chest - No evidence of thoracic metastatic disease. No MRI reports in [facility]. MRI from 12/26/2017 shows a nearly 9 [...] weight stability. She requests involvement of dieticians, [facility] I support. Also advised to insure increased physical activity despite limitations. Sandra Patel MD Enterprise Resource Planning Consultant Medical Oncology & Pediatric Hematology/Oncology [facility] Multidisciplinary Sarcoma Program documented in this enco unter Plan of Treatment +--------+ + + + + | Date | Type | Specialty | Care Team | Description | +--------+ + + + + | 03/25/ | Appointment | Radiology | Sandra Patel MD | | | 2018 | | | [address] | | | | | | [place], [place] | | | | | | [address] | | | | | | [phone] | | | | | | | | +--------+ + + + + | 03/25/ | Office | Orthopedics | Lynda Basurto, | | | 2018 | Visit | | [address] | | | | | | [address] | | | | | | [place], [place] | | | | | | [address] | | | | | | [phone] | | | | | | | | +--------+ + + + + | 03/25/ | Office | Hematology & | Sandra Patel MD | | | 2018 | Visit | Oncology | [address] | | | | | | [place], [place] | | | | | | [address] | | | | | | [phone] | | | | | | | | +--------+ + + + + + +------+--------+ + + | Name | Type | Priori | Associated Diagnoses | Order Schedule | | | | ty | | | + +------+--------+ + + | TRANSTHORACIC | ECG | Routin | Synovial sarcoma | Ordered: 01/23/2018 | | ECHOCARDIOGRAM WITH | | e | ([facility]) | | | STRAIN - CARDIO | | | | | | MECHANICS, ADULT | | | | | + +------+--------+ + + documented as of this encounter Results INR (01/23/2018 2:48 PM PDT) + +-------+ + + + | Component | Value | Ref Range | Performed | Pathologist | | | | | At | Signature | + +-------+ + + + | INR | 1.03 [...] | + + + + + | [facility] | [address] | [place] [address] | | | SERVICES, [place] | [address] | | | + + + + + [facility] - COMPLETE METABOLIC SET (01/23/2018 2:48 PM PDT) + +---------+ + + + | Component | Value | Ref Range | Performed | Pathologist | | | | | At | Signature | + +---------+ + + + | GLUCOSE, | 94 | 70 - 99 mg/dL | [facility] | | | PLASMA | | | LABORATORY | | | (LAB) | | | SERVICES, | | | | | | [facility] | | | | | | [facility] | | + +---------+ + + + | BUN, PLASMA | 18 | 6 - 20 mg/dL | [facility] | | | (LAB) | | | LABORATORY | | | | | | SERVICES, | | | | | | [facility] + | | | | | | [facility]AL[facility] | | + +---------+ + + + | CREATININE | 0.90 | 0.60 - 1.10 | [facility] | | | PLASMA | | mg/dL | LABORATORY | | | (LAB) | | | SERVICES, | | | | | | [facility] + | | | | | | [facility]ALING | | + +---------+ + + + | SODIUM, | 139 | 134 - 143 | [facility] | | | PLASMA | | mmol/L | LABORATORY | | | (LAB) | | | SERVICES, | | | | | | [facility] + | | | | | | [facility]ALING | | + +---------+ + + + | POTASSIUM, | 3.3 (L) | 3.4 - 5.0 | [facility] | | | PLASMA | | mmol/L | LABORATORY | | | (LAB) | | | SERVICES, | | | | | | [facility] + | | | | | | [facility]AL[facility] | | + +---------+ + + + | CHLORIDE, | 102 | 97 - 108 mmol/L | [facility] | | | PLASMA | | | LABORATORY | | | (LAB) | | | SERVICES, | | | | | | [facility] + | | | | | | [facility]ALING | | + +---------+ + + + | TOTAL CO2, | 29 | 22 - 29 mmol/L | [facility] | | | PLASMA | | | LABORATORY | | | (LAB) | | | SERVICES, | | | | | | [facility] | | [facility] + | | | | | | [facility]ALING | | + +---------+ + + + | CALCIUM, | 9.7 | 8.6 - 10.2 | [facility] | | | PLASMA | | mg/dL | LABORATORY | | | (LAB) | | | SERVICES, | | | | | | [facility] | [facility] | [facility] + | | | | | | [facility]AL[facility] | | + +---------+ + + + | BILIRUBIN | 0.7 | 0.3 - 1.2 mg/dL | [facility] | | | TOTAL | | | LABORATORY | | | | | | SERVICES, | | | | | | [facility] | [facility] + | | | | | | [facility]ALING | | + +---------+ + + + | TOTAL | 8.2 (H) | 6.1 - 7.9 g/dL | [facility] | | | PROTEIN, | | | LABORATORY | | | PLASMA | | | SERVICES, | | | (LAB) | | | [facility] | [facility] | [facility] + | | | | | | [facility]ALING | | + +---------+ + + + | ALBUMIN, | 4.0 | 3.5 - 4.7 g/dL | [facility] | | | PLASMA | | | LABORATORY | | | (LAB) | | | SERVICES, | | | | | | [facility] | [facility] + | | | | | | [facility]ALING | | + +---------+ + + + | ALK PHOS | 68 | 33 - 76 U/L | [facility] | | | | | | LABORATORY | | | | | | SERVICES, | | | | | | [facility] + | | | | | | [facility]ALING | | + +---------+ + + + | AST(SGOT) | 34 | <=41 U/L | [facility] | | | | | | LABORATORY | | | | | | SERVICES, | | | | | | [facility] | [facility] + | | | | | | [facility]ALING | | + +---------+ + + + | ALT (SGPT) | 36 | <=60 U/L | [facility] | | | | | | LABORATORY | | | | | | SERVICES, | | | | | | [facility] + | | | | | | [facility]AL[facility] | | + +---------+ + + + | ANION GAP | | 4 - 11 mmol/L | [facility] | | | | | | LABORATORY | | | | | | SERVICES, | | | | | | [facility] + | | | | | | [facility]AL[facility] | | + +---------+ + + + | ANION | | 4 - 11 mmol/L | [facility] | | | GAP(ALB | | | LABORATORY | | | CORRECTED) | | | SERVICES, | | | | | | [facility] | | [facility] + | | | | | | [facility]AL[facility] | | + +---------+ + + + + + | Specimen | + + | Blood | + + + + + + + | Performing | Address | City/State/Zipcode | Phone Number | | Organization | | | | + + + + + | [facility] | [address] | [place] [address] | | | [facility] | | | | | HEALTH + HEALING | | | | + + + + + documented in this encounter Visit Diagnoses + + | Diagnosis | + + | 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
--- OUTSIDE RECORDS SUMMARY | ~2019-01-30 | XMS | Encounter Summary ---
Demographics + + + | Address | [address] | | | [place] [address] | + + + | Home Phone [...] Providers + +------+ + | Care Paper Coater Name | Role | Phone | [...] + + | 05/05/ | Hospital | [facility] [address] | [place], | | | 2018 - | Encounter | Federico Weathers | [address] | | | | | Road Mailcode: | [address] | | | 05/09/ | | [id number] ANITA | [place], [place] | | | 2018 | | [place], | [address] | | | | | [place] [address] | [phone] | | | | | [phone] | | | | | | | Suzie Rojo MD | | | | | | [address] | | | | | | [place]y [place], | | | | | | [place] [address] | | | | | | [phone] | | | | | | | [...] Quiñones MD - 05/09/2018 1:27 PM PDT [facility] Discharge Summary Discharging Provider: EMRE QUIÑONES MD [...] 6 days duration. She was transferred to [facility] for consideration of an EGD. Labs were [...] 1700. Indications: phantom pain Miscellaneous Medical Supply [facility] Commonly known as: Miscellaneous Medical Supply Bedside [...] that I, or Nurse Practitioner or Physician Wire Drawing Machine Tender working with me, had a face to face encounter with this patient on 05/09/2018 On behalf of Attending Physician: Suzie Rojo MD I am ordering and certify that the following services are medically necessary home health services: Home Health Long-Term Evaluate and Treat I certify that the [...] Phone Number Fax Number [facility] Selected Home Health Services [phone] [facility] [place] [phone] Social Care Services No service has been selected for the patient. Follow Up: Future Appointments Provider Department Dept Phone Center 05/14/2018 7:45 AM RAD OP CHCT1 Radiology/Imaging Lab at [facility] [phone] RADIOLOGY 05/14/2018 1:00 PM Angely Stephen Hematology/Medical Oncology at [facility] 7th Floor [phone] [place] 05/14/2018 3:00 PM Hem Starter Nurse Hematology/Medical Oncology at [facility] [phone] HemOnc 05/14/2018 3:40 PM Sandra Schmitt Jorge Hematology/Medical Oncology at [facility] [phone] [place] 05/14/2018 4:00 PM Lynda Basurto [facility] Orthopaedics & Rehabilitation [phone] [place] Contact information for other follow-up providers SANTO GOODEN MD . Specialty: Family Medicine Contact information [facility] [address] [place] [address] Contact information for after-discharge nursing home [facility] . Specialty: Home Health Services Contact information [address] [place] [address] Discharge Physical Exam: Last 24 hour min/max [...] Difficulty swallowing is also called dysphagia (say "ggb-CPA-wag-uh"). It is most often a s ign [...] and how thick to make the liquids. Emm[place]-thick liquids leave a thin coating when they [...] Diet for Swallowing Problems", log into your [employer] account at [email or web address]. You can enter R741 in the "[employer] Library" search box. Not on Lokofoto? Review the Lokofoto section of your After Visit Summary for directions on lin osorio to sign up. Current as of: July 22, 2017 Content Version: 07.09-2018 [employer]. Care instructions adapted under license by [facility]. If you have questions about a medical condition or this instr uction, always ask your healthcare professional. [employer] disclaims any delta anty or liability for your use of [...] and CM. SUZIE ROJO MD Pager - [phone] teller Director, Clinical Hospitalist Service Clinical and Medicine Teaching Hospitalist Services [facility] I have spent more than 30 minutes with the patient of which more than 50% was spent budget counselor ing regarding neutropenic fever. Luis Kelly - 2017 5:10 PM PDT INPATIENT [...] Multi Disc f/u appointment Luis Ruggiero MS4 [facility] COMP NW Shaheed Morel MD - 05/08/2018 [...] attending physician. Shaheed Adams MD KAMLESH Pager [phone] Resident Physician PGY-1 Anesthesiology uzie Rojo MD [...] and GI. SUZIE ROJO MD Pager - [phone] teller Director, Clinical Hospitalist Service Clinical and Medicine Teaching Hospitalist Services [facility] I have spent more than 35 minutes with the patient of which more than 50% was spent budget counselor ing regarding ulcer. Caitlin Maciel M D - 05/08/2018 8:52 AM PDTBrief GI Procedure Note 05/08/2018 GI procedure performed. Procedure(s): EGD Please refer to GI procedure note imported under Procedures tab in Chart Review for full de tails of procedure, impression and recommendations. Caitlin Quiroz MD Gastroenterology Pager [phone] Klaus Maciel MD - 05/08/2018 8:19 AM PDTFormatting of this note might be different from the origin al. PRE PROCEDURE NOTE: MR# [id number] Subjective: Tati Cage is a 32 y.o. [...] consulted regarding neutropenic fever management. 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 Mary elmore is complaining of ongoing ST that is slightly improved. Primary complaint is of "back-a nd-forth" between NPO and PO. Has had intermittent chest pain since the SCREEN PRINTING MACHINE OPERATOR. Denies producti ve cough, abdominal pain, fever, [...] Dr. Mukesh Crowley MD Gastroenterology Fellow Pager [phone] INTERVAL EVENTS/SUBJECTIVE - patient still w/ sore [...] history of neutropenia (ANC 180) admitted to [facility] with new onset history of sore throat [...] the primary team. This patient was staffed [facility]. Ramos, who agrees with the above assessment and plan unless otherwise documented. Joe Farah, [facility] P SUBJECTIVE Interval Events: Had [...] note for additional details. Parul Ramos MD, [facility] Cell[employer]ane Bath Mixer Infectious Diseases Pager: [phone] Date of service : 05/07/2018 ID service General ID - [id number] Shaheed Adams MD - 05/07/2018 1:40 PM [...] attending physician. Shaheed Adams MD KAMLESH Pager [phone] Resident Physician PGY-1 Anesthesiology uzie Rojo MD [...] and GI. SUZIE ROJO MD Pager - [phone] teller Director, Clinical Hospitalist Service Clinical and Medicine Teaching Hospitalist Services [facility] I have spent more than 35 minutes with the patient of which more than 50% was spent budget counselor ing regarding neutropenic fever. Chanell Cuenca [...] Crowley MD Fellow, Gastroenterology and Hepatology Pager: [phone] documented in this enco unter Plan of Treatment +--------+ + + + + | Date | Type | Specialty | Care Team | Description | +--------+ + + + + | 03/25/ | Appointment | Radiology | Sandra Patel MD | | | 2018 | | | [address] | | | | | | [place], [place] | | | | | | [address] | | | | | | [phone] | | | | | | | | +--------+ + + + + | 03/25/ | Office | Orthopedics | Lynda Basurto, | | | 2019 | Visit | | [address] | | | | | | [address] | | | | | | [facility] [place] | | | | | | [address] | | | | | | [phone] | | | | | | | | +--------+ + + + + | 03/25/ | Office | Hematology & | Sandra Patel MD | | | 2018 | Visit | Oncology | [address] | | | | | | [place], [place] | | | | | | [address] | | | | | | [phone] | | | | | | | [...] |Preliminary: Zeyad Ng MD | |Dictation initiated: Zyead Ng MD 05/09/2018 10:18 AM | + [...] | + + + + + | [email or web address] | [address] | [place] [address] | | | SERVICES, CORE | PARK [...] [facility] | [address] | [place] [address] | | | SERVICES, CORE | PARK [...] | | | LABORATORY | | | ROMANIAN | | | SERVICES, | | | [...] [facility] | [address] | [place] [address] | | | SERVICES, CORE | PARK [...] [facility] | [address] | [place] [address] | | | ANTONI ANGUIANO | PARK [...] [facility] | [address] | [place] [address] | | | SERVICES, ANTONI | SARAHY [...] | + + + + + | [facility] | [address] | [place] [address] | | | SERVICES, CORE | SARAHY [...] [facility] | [address] | [place] [address] | | | SERVICES, CORE | SARAHY [...] number | | | | | | [id number]. Esophagus, | | | | | | [...] + + + + + | [facility] | [address] | [place] [address] | | | PATHOLOGY | [address] | | | + + + + + EGD (05/08/2018 8:05 AM PDT) + + | Specimen | + + | | + + + + + | Narrative | Performed At | + + + | MRN: | [facility] | | [id number] Date: 05/08/2018Patient Name: Tati CageOrder #: | ENDOSCOPY | | [id number] of : [id number]: [id number] Type: | | | InpatientRoom: GI 2Procedure: Upper GI | | | endoscopyIndications: Odynophagia; undergoing chemo | | | for sarcoma treatmentProviders: CHANELL CROWLEY MD | | | (Fellow), CAITLIN QUIROZ MD | | | (Doctor), DELVIS WHITE RN | | | (Nurse), JOSÉ ANTONIO GILL | | | (Silviculturist)Referring MD: MELANIE BATRESequesting | | | Provider: [...] The Olympus | | | [id number] Endoscope #[id number] was introduced | | | through the [...] of Addenda: 0Note Initiated On: 05/08/2018 8:05 [facility] Letter | | | to: SANTO GOODEN [...] | | | LABORATORY | | | ROMANIAN | | | SERVICES, | | | [...] the MDRD equation recommended by the | [facility] | | National Kidney Disease Education Program. [...] | + + + + + | [facility] | [address] | [place] [address] | | | SERVICES, CORE | SARAHY [...] [facility] | [address] | [place] [address] | | | SERVICES, CORE | PARK [...] [facility] | [address] | [place] [address] | | | SERVICES, CORE | PARK [...] | + + + + + | [facility] [employer] | [address] | [place] [address] | | | SERVICES, CORE | PARK [...] [facility] | [address] | [place] [address] | | | SERVICES, CORE | PARK [...] [facility] | [address] | [place] [address] | | | SERVICES, CORE | PARK [...] | + + + + + | [facility] | [address] | [place] [address] | | | SERVICES, CORE | SARAHY [...] | | | LABORATORY | | | ROMANIAN | | | SERVICES, | | | [...] Interpretive Information: <60 mL/min/1.73 sq | SERVICES, [facility] | | m Chronic Kidney Disease <15 [...] [facility] | [address] | [place] [address] | | | SERVICES, CORE | PARK [...] | + + + + + | [facility] | [address] | [place] [address] | | | SERVICES, CORE | SARAHY [...] [facility] | [address] | [place], [place] | | | CARDIOLOGY | [address] | [address] | | + + + + + [...] 2 fold may not reflect true | [facility] | | biological changes and must be [...] | | | characteristics determined by the [facility] | | | Molecular Diagnostic Center. It has not been cleared or approved by | | | the Food and Drug Administration. FDA approval is not required for | | | clinical use of this test, and therefore validation was done as | | | required under the requirements of the Clinical Laboratory Improvement | | | Act of 1988. The [facility] | | | Diagnostic Center is a fully licensed and/or accredited clinical | | | laboratory under CLIA, CAP, and the [facility]. | | + + + + + + + + | Performing | Address | City/State/Zipcode | Phone Number | | Organization | | | | + + + + + | [facility] | [address] | [place] [address] | | | DIAGNOSTIC | [address] [...] [facility] | [address] | [place] [address] | | | SILVIO, ANTONI | SARAHY [...] | | | LABORATORY | | | ROMANIAN | | | SERVICES, | | | [...] | + + + + + | [facility] | [address] | [place] [address] | | | SERVICES, CORE | SARAHY [...] [facility] | [address] | [place] [address] | | | SERVICES, CORE | SARAHY [...] DEPT OF | [address] | [place], [place] | | | CARDIOLOGY | [address] | [address] | | + + + + + [...] [facility] | [address] | [place] [address] | | | SERVICES, CORE | PARK [...] | + + + + + | [facility] | [address] | [place] [address] | | | SERVICES, CORE | [address] | | | + + + + + 12 LEAD ECG (05/06/2018 10:15 AM PDT) + + + + + + | Component | Value | Ref Range | Performed | Pathologist | | | | | At | Signature | + + + + + + | VENTRICULAR | 78 | bpm | [facility] DE[facility] | | | RATE | | [...] [facility] | [address] | [place], [place] | | | CARDIOLOGY | [address] | [address] | | + + + + + [...] | + + + + + | [facility] | [address] | [place] [address] | | | SERVICES, CORE | PARK [...] [facility] | [address] | [place] [address] | | | SERVICES, CORE | PARK [...] [facility] | [address] | [place] [address] | | | SERVICES, CORE | [address] | | | + + + + + CULTURE, BLOOD BACTI & YEAST [facility] (05/06/2018 12:42 AM PDT) + + + [...] [facility] | [address] | [place] [address] | | | SERVICES, CORE | PARK [...] [facility] | [address] | [place] [address] | | | ANTONI ANGUIANO | SARAHY [...] LABORATORY | [address] | [place] [address] | | | SERVICES, CORE | PARK [...] + | [facility] | [address] | [place] [address] | | | SERVICES, CORE | PARK [...] | + + + + + | [facility] [employer] | [address] | [place] [address] | | | SERVICES, CORE | PARK [...] [facility] | [address] | [place] [address] | | | ANTONI ANGUIANO | SARAHY [...] ranges for full anticoagulation: INR for | [facility] | | Venous Thromboembolism (2.0 - 3.0) INR INR | LABORATORY | | for most patients with mech. valves (2.5 - 3.5) INR | ANTONI ANGUIANO | + + + + + + + + | Performing | Address | City/State/Zipcode | Phone Number | | Organization | | | | + + + + + | [facility] | [address] | [place] [address] | | | ANTONI ANGUIANO | SARAHY [...] | + + + + + | [facility] | [address] | [place] [address] | | | SERVICES, CORE | PARK [...] | | | LABORATORY | | | ROMANIAN | | | SERVICES, | | | [...] + + + + + | [facility] | [address] | [place] [address] | | | SERVICES, CORE | PARK [...]
--- OUTSIDE RECORDS SUMMARY | ~2019-01-30 | XMS | Encounter Summary ---
Demographics + + + | Address | [address] | | | [place] [address] | + + + | Home Phone [...] Team Providers + +------+ + | Care Cabana Attendant Name | Role | Phone | + [...] + + + + | 03/27/ | Anesthesia | 6A Intra Op [facility] | [place], | | | 2017 | Event | [facility] | Kemar Martin MD | | | | | Admitting Desk | [address] [facility] | | | | | Located on the | [facility], | | | | | floor [address] [facility] | [place] [address] | | | | | [facility] | [phone] | | | | | [place], [place] | | | | | | [address] | | | +--------+ + + + + Anesthesia Record + + + + + | Procedure Name | Responsible | Anesthesia Start | Anesthesia Stop Time | | | Anesthesiologist | Time | | + + + + + | LOWER EXTREMITY | Caron Lis, MD | 03/27/18 0926 | 03/27/18 1152 | | AMPUTATION (Left | | | | | Leg) | | | | + + + + + +----+---+ + + | Da | T | Event | Comment | | te | i | | | | | m | | | | | e | | | +----+---+ + + | 07 | 0 | Pt. Check | Prior to anesthesia start, pt. Identified, examined, chart | | /2 | 8 | | reviewed, PARQ held, anesthetic plan made or approved by | | 6/ | 0 | | attending anesthesiologist. NPO status confirmed as appropriate | | 20 | 6 | | for procedure Preoperative evaluation: unchanged | | 18 | | | | +----+---+ + + | | 0 | Block Pause | | | | 8 | | | | | 3 | | | | | 0 | | | +----+---+ + + | | 0 | Start | | | | 8 | Catheter | | | | 3 | | | | | 3 | | | +----+---+ + + | | 0 | PNB Cath | | | | 8 | Stop | | | | 5 | | | | | 2 | | | +----+---+ + + | | 0 | Start PNB | | | | 8 | SS | | | | 5 | | | | | 6 | | | +----+---+ + + | | 0 | PNB SS Stop | | | | 9 | | | | | 0 | | | | | 7 | | | +----+---+ + + | | 0 | Eq Check | Anesthesia machine checked Equipment verified | | | 9 | | | | | 1 | | | | | 7 | | | +----+---+ + + | | 0 | An Start | | | | 9 | | | | | 2 | | | | | 6 | | | +----+---+ + + | | 0 | An Start | | | | 9 | Data | | | | 3 | | | | | 0 | | | +----+---+ + + | | 0 | | | | | 9 | | | | | 3 | | | | | 3 | | | +----+---+ + + | | 0 | Vitals | Monitors applied Vital signs checked Patient ready for anesthesia | | | 9 | Checked | | | | 3 | | | | | 7 | | | +----+---+ + + | | 0 | Quick Note | Self-transfer from hospital bed to OR table, with Hovermat | | | 9 | | pre-positioned on OR table. | | | 4 | | | | | 2 | | | +----+---+ + + | | 0 | ETT | | | | 9 | | | | | 4 | | | | | 8 | | | +----+---+ + + | | 0 | Ready | | | | 9 | | | | | 5 | | | | | 5 | | | +----+---+ + + | | 1 | Abx | | | | 0 | Administere | | | | 0 | d | | | | 5 | | | +----+---+ + + | | 1 | Pause | | | | 0 | | | | | 1 | | | | | 7 | | | +----+---+ + + | | 1 | Incision | | | | 0 | | | | | 1 | | | | | 9 | | | +----+---+ + + | | 1 | Surgery end | | | | 1 | | | | | 3 | | | | | 5 | | | +----+---+ + + | | 1 | An Extubate | Neuromuscular function Intact. Pharynx suctioned. Patient obeys | | | 1 | | commands. Adequate pulmonary mechanics. | | | 4 | | | | | 3 | | | +----+---+ + + | | 1 | an stop | | | | 1 | data | | | | 4 | | | | | 6 | | | +----+---+ + + | | 1 | PACU Rpt | | | | 1 | Given | | | | 5 | | | | | 2 | | | +----+---+ + + | | 1 | Anesthesia | | | | 1 | End | | | | 5 | | | | | 2 | | | +----+---+ + + +------+ | Meds | +------+ + +---------+ | Name | Total | + +---------+ | midazolam | 2 mg | + +---------+ | fentaNYL | 250 mcg | + +---------+ | propofol (DIPRIVAN) 200 mg | 300 mg | + +---------+ | rocuronium | 8 mg | + +---------+ | succinylcholine | 140 mg | + +---------+ | dexamethasone | 6 mg | + +---------+ | ondansetron | 4 mg | + +---------+ | lidocaine 1% | 100 mg | + +---------+ | ceFEPime | 2 g | + +---------+ | metoprolol | 5 mg | + +---------+ | LR | 500 mL | + +---------+ + + | Name | + + | O2 FR Avance (Total Liters) | + + | Air FR Avance (l/min) | + + | Insp Iso | + + | Et Iso | + + | EtN2O % | + + | Insp N2O % | + + | O2 Flow Rate (Total Liters) | + + + + | No [...] | | +--------+ + + + | Luz | Sho Reed MD ; Left; | 03/27/18921 by | 03/31/18929 by | | eral | Sciatic/popliteal; 03/31/18; | | Melinda Agosto RN | | Nerve | 0930; Per protocol (MD removed) | | | | Block | | | | +--------+ + + + | Drain | 03/27/18; 1055; 10 Fr Patrick; | 03/27/18 1055 by | 04/01/18 1300 by | | | Patrick; Left; Lower; leg; | Mónica Corrales RN | Belkis Yodit, | | | 04/01/18; 1300; Other (Comment) | | RN | | | (per Ortho) | | | +--------+ + + + [...] [place] | | | | | | [address] | | | | | | [phone] | | | | | | | | +--------+ + + + + | 03/25/ | Office | Orthopedics | Lynda Basurto, | | | 2018 | Visit | | [address] | | | | | | [address] | | | | | | [place], [place] | | | | | | [address] | | | | | | [phone] | | | | | | | | +--------+ + + + + | 03/25/ | Office | Hematology & | Sandra Patel MD | | | 2018 | Visit | Oncology | [address] | | | | | | [place], [place] | | | | | | [address] | | | | | | [phone] | | | | | | | | +--------+ + + + + documented as of this encounter Procedures + +--------+ + + + | Procedure Name | Priori | Date/Time | Associated Diagnosis | Comments | | | ty | | | | + +--------+ + + + | ANE ETT | Routin | 03/27/2018 | | Results for this | | | e | 10:12 AM | | procedure are in the | | | | PDT | | results section. | + +--------+ + + + | CHRISTI MOOREB CATH | Routin | 03/27/2018 | | Results for this | | | e | 9:21 AM | | procedure are in the | | | | PDT | | results section. | + +--------+ + + + | CHRISTI PNB SS | Routin | 03/27/2018 | | Results for this | | | e | 9:18 AM | | procedure are in the | | | | PDT | | results section. | + +--------+ + + + documented in this encounter Results ANE ETT (03/27/2018 10:12 AM PDT) + + + | Narrative | Performed At | + + + | Kemar Perla MD 03/27/2018 10:14 AM Procedure | | | Reason for Intubation: For surgical procedure, Location Performed: [place] | | | , Patient was preoxygenated Mask Ventilation Grade 2 - Ventilated | | | by mask with oral airway/adjuvant Intubation Blade type: Other | | | Other blade type: GS, Atraumatic laryngoscopy: Atraumatic | | | Laryngoscopy, Intubation adjuncts: Stylet used , Laryngoscopic view: | | | Grade II, Fiberoptics used: Glidescope , Number of Attempts: 1, | | | Positive for EtCO2: Yes, Breath sounds: Bilateral and equal | | | ETT Ett Adult: Single-lumen cuffed ETT Size: 7 ETT secured with: | | | adhesive tape Depth at Lip: 23 Cm Narrative Attending | | | physically present Performed by Resident | | + + + ANE PNB CATH (03/27/2018 9:21 AM PDT) + + + | Narrative | Performed At | + + + | Jovon Reed MD 03/27/2018 9:22 AM PNB Cath | | | TYPE Type: sciatic block Indication: ultrasound guided Side: left | | | Block indication: Have received and accepted request from attending | | | surgeon to offer advanced acute pain management services to the | | | patient Location: Pre-Op, The patient was identified, the site | | | marked, full PARQ Done PROCEDURE Pt. Position: Supine Monitors used: | | | EKG, NIBP and SpO2 Supplimental O2 used draped in sterile fashion | | | ULTRASOUND Spread characteristics: full spread around nerve/plexus | | | Image: printed and placed in patients chart Guidance: Needle tip | | | confirmed by hydrolocalization and Needle tip visualized NEEDLE | | | Needle type: Tuohy Gauge: 17 G Length: 9 cm Catheter at skin | | | depth 17 cm No, Aspiration was Negative for blood NERVE | | | STIMULATOR ASSESSMENT test dose required; Test Result Negative | | | Ist attempt Complications: None Attending physically | | | present Attending: CARON HARVEY Performed by | | | Resident JOVON REED procedural pause verifying correct | | | patient, medical record number, date of , allergies, and | | | surgical site/orientation was performed immediately prior to | | | beginning the procedure. Previous to pause a formal PARQ discussion | | | was held with patient who consents to procedure and understands | | | risks/benefits of nerve block. After visual anatomical | | | identification of landmarks, site was thoroughly cleaned with | | | betadine. Skin anesthestized with 1% lidocaine. Ultrasound | | | visualization of sciatic nerve anatomy was adequate although difficult | | | to visualize due to patient habitus. Patient awake, alert, | | | conversant throughout without complaint. No paresthesias or pain | | | with injection noted. Local anesthetic was injected after negative | | | aspiration in divided doses with repeat aspiration after every 5mL. | | | See anesthetic record for medication dose documentation. The | | | procedure was well tolerated and without observed complication. | | | See patient's medical record for images. Difficult due to patient | | | habitus although good spread noted around both components of sciatic | | | nerve. | | + + + ANE PNB SS (03/27/2018 9:18 AM PDT) + + + | Narrative | Performed At | + + + | Jovon Reed MD 03/27/2018 9:21 AM Single-Shot | | | Type Type saphenous block Technique used ultrasound guided Side left | | | Block indication: Have received and accepted request from attending | | | surgeon to offer advanced acute pain management services to the | | | patient Pre-Op The patient was identified, the site marked, full | | | PARQ Done Procedure Pt. Position Supine, Monitors used NIBP and | | | SpO2 Supplimental O2 used Single Shot Prep: Betadine | | | Ultrasound Spread Characteristics: full spread around nerve/plexus | | | Image printed and placed in patients chart Guidance: Needle tip | | | confirmed by hydrolocalization and Needle tip visualized Needle | | | Needle type: Short-bevel Gauge: 21 G Length: 4 in | | | No, Aspiration was Negative for blood Nerve Stimulator | | | Assessment Ist attempt Result: Block beginning to set up prior to | | | induction Complications: None, Block not abandoned Technical | | | difficulty: Easy Intended analgesia: Satisfactory block in | | | appropriate fashion Attending physically present Attending Name: | | | CARON HARVEY Performed by Resident JOVON REED procedural | | | pause verifying correct patient, medical record number, date of | | | , allergies, and surgical site/orientation was performed | | | immediately prior to beginning the procedure. Previous to pause a | | | formal PARQ discussion was held with patient who consents to | | | procedure and understands risks/benefits of nerve block. After | | | visual anatomical identification of landmarks, site was thoroughly | | | cleaned with betadine. Skin anesthestized with 1% lidocaine. | | | Ultrasound visualization of saphenous nerve anatomy was good. | | | Patient awake, alert, conversant throughout [...] patient's medical record for images. | | | | | + + + documented in this encounter Visit Diagnoses Not on filedocumented in this encounter Administered Medications + +--------+ +------+------+------+ | Medication Order | MAR | Action | Dose | Rate | Site | | | Action | Date | | | | + +--------+ +------+------+------+ | ceFEPIme (MAXIPIME) injection | Given | 03/27/20 | 2 g | | | | INTRAPROCEDURE PRN, Starting Bettie | | 18 10:05 | | | | | 03/27/18 at 1005, Until Bettie | | AM PDT | | | | | 03/27/18 at 1144 | | | | | | + +--------+ +------+------+------+ +---+---+ | | | +---+---+ + +-------+ +------+---+---+ | dexamethasone (DECADRON) | Given | 03/27/20 | 6 mg | | | | injection intravenous, | | 18 10:23 | | | | | INTRAPROCEDURE PRN, Starting Bettie | | AM PDT | | | | | 03/27/18 at 1023, Until Bettie | | | | | | | 03/27/18 at 1144 | | | | | | + +-------+ +------+---+---+ +---+---+ | | | +---+---+ + +-------+ +---------+---+---+ | fentaNYL (SUBLIMAZE) injection | Given | 03/27/20 | 150 mcg | | | | INTRAPROCEDURE PRN, Starting Bettie | | 18 9:43 | | | | | 03/27/18 at 0832, Until Bettie | | AM PDT | | | | | 03/27/18 at 1144 | | | | | | + +-------+ +---------+---+---+ +-------+ +--------+---+---+ | Given | 03/27/20 | 50 mcg | | | | | 18 8:41 | | | | | | AM PDT | | | | +-------+ +--------+---+---+ | Given | 03/27/20 | 50 mcg | | | | | 18 8:32 | | | | | | AM PDT | | | | +-------+ +--------+---+---+ +---+---+ | | | +---+---+ + + + +---+---+---+ | lactated Ringers IV | given by | 03/27/20 | | | | | intravenous, INTRAPROCEDURE | | 18 10:20 | | | | | CONTINUOUS PRN, Starting Bettie | anesthes | AM PDT | | | | | 03/27/18 at 0933, Until Bettie | iology | | | | | | 03/27/18 at 1144 | | | | | | + + + +---+---+---+ +---------+ +---+---+---+ | New Bag | 03/27/20 | | | | | | 18 9:33 | | | | | | AM PDT | | | | +---------+ +---+---+---+ +---+---+ | | | +---+---+ + +-------+ +--------+---+---+ | lidocaine PF (XYLOCAINE MPF) 10 | Given | 03/27/20 | 100 mg | | | | mg/mL (1 %) injection | | 18 9:44 | | | | | INTRAPROCEDURE PRN, Starting Bettie | | AM PDT | | | | | 03/27/18 at 0944, Until Bettie | | | | | | | 03/27/18 at 1144 | | | | | | + +-------+ +--------+---+---+ +---+---+ | | | +---+---+ + +-------+ +------+---+---+ | metoprolol (LOPRESSOR) | Given | 03/27/20 | 5 mg | | | | injection intravenous, | | 18 11:35 | | | | | INTRAPROCEDURE PRN, Starting Bettie | | AM PDT | | | | | 03/27/18 at 1135, Until Bettie | | | | | | | 03/27/18 at 1144 | | | | | | + +-------+ +------+---+---+ +---+---+ | | | +---+---+ + +-------+ +------+---+---+ | midazolam (PF) (VERSED) | Given | 03/27/20 | 2 mg | | | | injection INTRAPROCEDURE PRN, | | 18 8:32 | | | | | Starting Bettie 03/27/18 at 0832, | | AM PDT | | | | | Until Bettie 03/27/18 at 1144 | | | | | | + +-------+ +------+---+---+ +---+---+ | | | +---+---+ + +-------+ +------+---+---+ | ondansetron (ZOFRAN) injection | Given | 03/27/20 | 4 mg | | | | intravenous, INTRAPROCEDURE PRN, | | 18 10:59 | | | | | Starting Bettie 03/27/18 at 1059, | | AM PDT | | | | | Until Bettie 03/27/18 at 1144 | | | | | | + +-------+ +------+---+---+ +---+---+ | | | +---+---+ + +-------+ +-------+---+---+ | propofol (DIPRIVAN) 200 mg | Bolus | 03/27/20 | 50 mg | | | | intravenous, INTRAPROCEDURE | | 18 11:28 | | | | | CONTINUOUS PRN, Starting Bettie | | AM PDT | | | | | 03/27/18 at 0944, Until Bettie | | | | | | | 03/27/18 at 1144 | | | | | | + +-------+ +-------+---+---+ +---------+ +--------+---+---+ | New Bag | 03/27/20 | 250 mg | | | | | 18 9:44 | | | | | | AM PDT | | | | +---------+ +--------+---+---+ +---+---+ | | | +---+---+ + +-------+ +------+---+---+ | rocuronium (ZEMURON) injection | Given | 03/27/20 | 8 mg | | | | intravenous, INTRAPROCEDURE PRN, | | 18 9:44 | | | | | Starting Bettie 03/27/18 at 0944, | | AM PDT | | | | | Until Bettie 03/27/18 at 1144 | | | | | | + +-------+ +------+---+---+ +---+---+ | | | +---+---+ + +-------+ +--------+---+---+ | succinylcholine (ANECTINE) | Given | 03/27/20 | 140 mg | | | | injection intravenous, | | 18 9:46 | | | | | INTRAPROCEDURE PRN, Starting Bettie | | AM PDT | | | | | 03/27/18 at 0946, Until Bettie | | | | | | | 03/27/18 at 1144 | | | | | | + +-------+ +--------+---+---+ +---+---+ | | | +---+---+ documented in this encounter"
--- OUTSIDE RECORDS SUMMARY | ~2019-01-30 | XMS | Encounter Summary ---
Demographics + + + | Address | [address] | | | [place] [address] | + + + | Home Phone [...] Team Providers + +------+ + | Care Corporate Auditor Name | Role | Phone | + [...] | | | | | Procedures | [place], [place] | | | | | | [place] | [address] | | | | | | CONTRAST | Phone: | | | | | | | [phone] | | | | | | | Fax: | | | | | | | [phone] | | + +--------+ + + + [...] | soft tissue | [address] | [facility] [place] | | | | | of left | [address] | [address] | | | | | lower | [place], [place] | Phone: | | | | | extremity | [address] | [phone] | | | | | (HCC) | Phone: | Fax: | | | | | Procedures | [phone] | [phone] | | | | | CONSULT TO | Fax: | | | | | | HEMATOLOGY / | [phone] | | | | | | ONCOLOGY | | | + +--------+ + + + + Encounter Details +--------+---------+ + + + | Date | Type | Department | Care Team | Description | +--------+---------+ + + + | 12/03/ | Office | Hematology/Medical | Sandra Patel MD | 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) | | | | for Health & Healing | [place], [place] | | | | | [address] | [address] | | | | | Mailcode: CH7N | [phone] | | | | | [facility] | | | | | | and Healing, [facility] | | | | | | [place], [place] | | | | | | [address] | | | | | | [phone] | | | +--------+---------+ + + + [...] Name: Tati Cage : 1985 Home Town: [place], [place] PCP = Garima GOSS Referring Physician: [...] Yoli cations: phantom pain Miscellaneous [facility], Bedside commode for nighttime use following foot [...] (she designed it). Neurologic - Awake, alert. 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 Affect/Psych - Appropriate. ECOG - [...] with psychiatrist, on celexa and welbutrin. Appreciate AUTHOR'S AGENT assista nce I spent 18 minutes with the patient. Greater than 50% of the time was spent counseling the patient regarding symptoms, LTFU and disease monitoring plan. Sandra Patel MD Sign Language Interpreter Medical Oncology & Pediatric Hematology/Oncology [facility] [place] [facility] documented in this encounter Plan of Treatment +--------+ + + + + | Date | Type | Specialty | Care Team | Description | +--------+ + + + + | 03/25/ | Appointment | Radiology | Sandra Patel MD | | | 2018 | | | [address] | | | | | | [place], [place] | | | | | | [address] | | | | | | [phone] | | | | | | | | +--------+ + + + + | 03/25/ | Office | Orthopedics | Lynda Basurto, | | | 2018 | Visit | | [address] | | | | | | [address] | | | | | | [place], [place] | | | | | | [address] | | | | | | [phone] | | | | | | | | +--------+ + + + + | 03/25/ | Office | Hematology & | Sandra Patel MD | | | 2018 | Visit | Oncology | [address] | | | | | | [place], [place] | | | | | | [address] | | | | | | [phone] | | | | | | | [...]
--- OUTSIDE RECORDS SUMMARY | ~2019-01-30 | XMS | Encounter Summary ---
Demographics + + + | Address | [address] | | | [place] [address] | + + + | Home Phone [...] Team Providers + +------+ + | Care Coremaker Experimental Name | Role | Phone | + [...] | | | | | sarcoma | [address] | | | | | | ([facility]) | Ave | | | | | | Procedures | [place], [place] | | | | | | TRANSTHORACI | [address] | | | | | | C | Phone: | | | | | | ECHOCARDIOGR | [phone] | | | | | | AM, ADULT | Fax: | | | | | | | [phone] | | + +--------+ + + + + Encounter Details +--------+ + + + + | Date | Type | Department | Care Team | Description | +--------+ + + + + | 01/31/ | Jail Keeper | Hematology/Medical | Sandra Patel MD | 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[place] | [address] | (HCC) (Primary Dx) | | | | for Health & Healing | [place], [place] | | | | | [address] | [address] | | | | | Mailcode: [place] | [phone] | | | | | for Health and | | | | | | Healing, [address] | | | | | | [place], [place] | | | | | | [address] | | | | | | [phone] | | | +--------+ + + + [...] [address] | | | | | | [place], [place] | | | | | | [address] | | | | | | [phone] | | | | | | | | +--------+ + + + + | 03/25/ | Office | Orthopedics | Lynda Basurto, | | | 2018 | Visit | | [address] | | | | | | [address] | | | | | | [place], [place] | | | | | | [address] | | | | | | [phone] | | | | | | | | +--------+ + + + + | 03/25/ | Office | Hematology & | Sandra Patel MD | | | 2018 | Visit | Oncology | [address] | | | | | | [place], [place] | | | | | | [address] | | | | | | [phone] | | | | | | | [...]
--- OUTSIDE RECORDS SUMMARY | ~2019-01-30 | XMS | Encounter Summary ---
Demographics + + + | Address | [address] | | | [place] [address] | + + + | Home Phone [...] Providers + +------+ + | Care Boiler Coverer Helper Name | Role | Phone | [...] Post Op | | 2019 | | [facility] [address] | [address] | | | | | [place] Mailcode: CH12A | [address] [place], | | | | | [facility] | [place] [address] | | | | | and | [phone] | | | | | Floor [place], [place] | | | | | | [address] | | | | | | [phone] | | | +--------+ + + + [...] [address] | | | | | | [place], [place] | | | | | | [address] | | | | | | [phone] | | | | | | | | +--------+ + + + + | 03/25/ | Office | Orthopedics | Rosy BasurtoAlexander, | | | 2018 | Visit | | [address] | | | | | | [address] | | | | | | [facility] [place] | | | | | | [address] | | | | | | [phone] | | | | | | | | +--------+ + + + + | 03/25/ | Office | Hematology & | Sandra Patel MD | | | 2018 | Visit | Oncology | [address] | | | | | | [place], [place] | | | | | | [address] | | | | | | [phone] | | | | | | | | +--------+ + + + + documented as of this encounter Visit Diagnoses Not on filedocumented in this encounter"
--- OUTSIDE RECORDS SUMMARY | ~2019-01-30 | XMS | Encounter Summary ---
Demographics + + + | Address | [address] | | | [place] [address] | + + + | Home Phone [...] + + + | Author | [facility] | + + + | Organization | [facility] | + + + | Address | Unknown | + + + | Phone | Unavailable | + + + Support + + +---------+ + | Name | Relationship | Address | Phone | + + +---------+ + | Kika Cage | ECON | Unknown | | + + +---------+ + Care Team Providers + +------+ + | Care Parboiler Name | Role | Phone | + +------+ + | Santo Gooden MD | PCP | | + +------+ + Encounter Details +--------+ + + + + | Date | Type | Department | Care Team | Description | +--------+ + + + + | 02/05/ | Pharmacy | [facility] | | | | 2018 | Visit | & [facility] | | | | | | [address] | | | | | | [place], [place] | | | | | | [address] | | | | | | [phone] | | | +--------+ + + + [...] [place] | | | | | | [address] | | | | | | [phone] | | | | | | | | +--------+ + + + + | 03/25/ | Office | Orthopedics | Lynda Basurto, | | | 2018 | Visit | | [address] | | | | | | [address] | | | | | | [place], [place] | | | | | | [address] | | | | | | [phone] | | | | | | | | +--------+ + + + + | 03/25/ | Office | Hematology & | Sandra Patel MD | | | 2018 | Visit | Oncology | [address] | | | | | | [place], [place] | | | | | | [address] | | | | | | [phone] | | | | | | | | +--------+ + + + + documented as of this encounter Visit Diagnoses Not on filedocumented in this encounter"
--- OUTSIDE RECORDS SUMMARY | ~2019-01-30 | XMS | Encounter Summary ---
Demographics + + + | Address | [address] | | | [place] [address] | + + + | Home Phone [...] + +------+ + | Care Box Toe Cutter Name | Role | Phone | + +------+ + | Santo Gooden MD | PCP | | + +------+ + Encounter Details +--------+ + + + + | Date | Type | Department | Care Team | Description | +--------+ + + + + | 03/14/ | Pharmacy | [facility] | | | | 2018 | Visit | [facility] | | | | | | [address] | | | | | | [facility] | | | | | | [place], [place] | | | | | | [address] | | | +--------+ + + + [...] | | | | | | [place] | | | | | | [address] | | | | | | [phone] | | | | | | | | +--------+ + + + + | 03/25/ | Office | Orthopedics | Lynda Basurto, | | | 2018 | Visit | | [address] | | | | | | [address] | | | | | | [place] | | | | | | [address] | | | | | | [phone] | | | | | | | | +--------+ + + + + | 03/25/ | Office | Hematology & | Sandra Patel MD | | | 2018 | Visit | Oncology | [address] | | | | | | [place] | | | | | | [address] | | | | | | [phone] | | | | | | | | +--------+ + + + + documented as of this encounter Visit Diagnoses Not on filedocumented in this encounter"
--- OUTSIDE RECORDS SUMMARY | ~2019-01-30 | XMS | Encounter Summary ---
Demographics + + + | Address | [address] | | | [place] [address] | + + + | Home Phone [...] Providers + +------+ + | Care Farm Crops Teacher Name | Role | Phone | [...] + + | 04/09/ | Documentati | Hematology/Medical | Work, Social | Social Work Notes | | 2018 | on | [facility] at [facility] | | | | | | for Health & Healing | | | | | | [address] | | | | | | Mailcode: [place] | | | | | | [facility] and | | | | | | [facility] 2 | | | | | | [place], [place] | | | | | | [address] | | | | | | [phone] | | | +--------+ + + + [...] Scott | | | | | | [place], [place] | | | | | | [address] | | | | | | [phone] | | | | | | | | +--------+ + + + + | 03/25/ | Office | Orthopedics | Rosy BasurtoRegiotto, | | | 2018 | Visit | | [address] | | | | | | [address] | | | | | | [facility] [place] | | | | | | [address] | | | | | | [phone] | | | | | | | | +--------+ + + + + | 03/25/ | Office | Hematology & | Sandra Patel MD | | | 2018 | Visit | Oncology | [address] | | | | | | [place], [place] | | | | | | [address] | | | | | | [phone] | | | | | | | | +--------+ + + + + documented as of this encounter Visit Diagnoses Not on filedocumented in this encounter"
--- OUTSIDE RECORDS SUMMARY | ~2019-01-30 | XMS | Encounter Summary ---
Demographics + + + | Address | [address] | | | [place] [address] | + + + | Home Phone [...] Team Providers + +------+ + | Care Hoop Bender Tank Name | Role | Phone | + [...] | | 2018 | | Oncology at [facility] | [address] | therapy (Nutrition | | | | [address] | [address] [facility] | Referral) | | | | Mailcode: [place] | [place], [place] | | | | | [facility] and | [address] | | | | | [facility] 2 | [phone] | | | | | [place], [place] | | | | | | [address] | | | | | | [phone] | | | +--------+ + + + [...] | | | 2018 | | | [address] | | | | | | [place], [place] | | | | | | [address] | | | | | | [phone] | | | | | | | | +--------+ + + + + | 03/25/ | Office | Orthopedics | Lynda Basurto, | | | 2018 | Visit | Minerva DIAS [address] | | | | | | [address] | | | | | | [place], [place] | | | | | | [address] | | | | | | [phone] | | | | | | | | +--------+ + + + + | 03/25/ | Office | Hematology & | Sandra Patel MD | | | 2019 | Visit | Oncology | [address] | | | | | | [place] | | | | | | [address] | | | | | | [phone] | | | | | | | | +--------+ + + + + documented as of this encounter Visit Diagnoses Not on filedocumented in this encounter"
--- OUTSIDE RECORDS SUMMARY | ~2019-01-30 | XMS | Encounter Summary ---
Demographics + + + | Address | [address] | | | [place] [address] | + + + | Home Phone [...] Team Providers + +------+ + | Care Tawer Name | Role | Phone | + [...] | | sarcoma | [place] | [address] [facility] | | | | | (HCC) | [place] | [facility] | | | | | Malignant | Health | Rd | | | | | neoplasm of | Center | [place], [place] | | | | | connective | [address] | [address] | | | | | and soft | [place] | Phone: | | | | | tissue of | Way | [phone] | | | | | left lower | [place], | Fax: | | | | | [place], | [place] [address] | [phone] | | | | | including | Phone: | | | | | | hip | [phone] | | | | | | Procedures | Fax: | | | | | | REQUEST TO | [phone] | | | | | | SURGERY | | | | | | | N[place] SIFTER | | | | | | | [place] | | | | | | | [...] + + | 02/05/ | Office | [facility] Orthopaedics | Lynda Basurto, | 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 | & Rehabilitation at | [address] | ([facility]) (Primary Dx) | | | | [facility] [address] | [facility] | | | | | Sonia Mailcode: | [place], [place] | | | | | [facility] | [address] | | | | | and Healing, | [phone] | | | | | Building 2 | | | | | | [place], [place] | | | | | | [address] | | | | | | [phone] | | | +--------+---------+ + + + [...] Ave | | | | | | [place], [place] | | | | | | [address] | | | | | | [phone] | | | | | | | | +--------+ + + + + | 03/25/ | Office | Orthopedics | Lynda Basurto, | | | 2018 | Visit | | [address] | | | | | | [address] | | | | | | [place], [place] | | | | | | [address] | | | | | | [phone] | | | | | | | | +--------+ + + + + | 03/25/ | Office | Hematology & | Sandra Patel MD | | | 2018 | Visit | Oncology | [address] | | | | | | [place], [place] | | | | | | [address] | | | | | | [phone] | | | | | | | [...] | | | LABORATORY | | | [place] | | | SERVICES, | | | [...] + | [facility] [place] | [address] | [place] [address] | | | SERVICES, CORE | [address] | | | + + + + + documented in this encounter Visit Diagnoses + + | Diagnosis | + + | 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
--- OUTSIDE RECORDS SUMMARY | ~2019-01-30 | XMS | Encounter Summary ---
Demographics + + + | Address | [address] | | | [place] [address] | + + + | Home Phone [...] Team Providers + +------+ + | Care Windows Infrastructure Engineer Name | Role | Phone [...] [address]ascimento | | | | | | [facility] | | | | | | [place], [place] | | | | | | [address] | | | +--------+ + + + [...] | | | | | | [place] | | | | | | [address] | | | | | | [phone] | | | | | | | | +--------+ + + + + | 03/25/ | Office | Orthopedics | Lynda Basurto, | | | 2018 | Visit | | [address] | | | | | | [address] | | | | | | [place] | | | | | | [address] | | | | | | [phone] | | | | | | | | +--------+ + + + + | 03/25/ | Office | Hematology & | Sandra Patel MD | | | 2018 | Visit | Oncology | [address] | | | | | | [place] | | | | | | [address] | | | | | | [phone] | | | | | | | | +--------+ + + + + documented as of this encounter Visit Diagnoses Not on filedocumented in this encounter"
--- OUTSIDE RECORDS SUMMARY | ~2019-01-30 | XMS | Encounter Summary ---
Demographics + + + | Address | [address] | | | [place] [address] | + + + | Home Phone [...] Providers + +------+ + | Care Manager Of Information Name | Role | Phone | + [...] | 2018 | Encounter | Oncology at [place] | [address] | | | | | for Health & Healing | [place], [place] | | | | | [address] | [address] | | | | | Mailcode: [place] | [phone] | | | | | [facility] | | | | | | and Healing, | | | | | | Floor [place], [place] | | | | | | [address] | | | | | | [phone] | | | +--------+ + + + [...] Scott | | | | | | [place], [place] | | | | | | [address] | | | | | | [phone] | | | | | | | | +--------+ + + + + | 03/25/ | Office | Orthopedics | Lynda Basurto, | | | 2018 | Visit | | [address] | | | | | | [address] | | | | | | [facility] [place] | | | | | | [address] | | | | | | [phone] | | | | | | | | +--------+ + + + + | 03/25/ | Office | Hematology & | Sandra Patel MD | | | 2019 | Visit | Oncology | [address] | | | | | | [place], [place] | | | | | | [address] | | | | | | [phone] | | | | | | | | +--------+ + + + + documented as of this encounter Visit Diagnoses Not on filedocumented in this encounter"
--- OUTSIDE RECORDS SUMMARY | ~2019-01-30 | XMS | Encounter Summary ---
Demographics + + + | Address | [address] | | | [place] [address] | + + + | Home Phone [...] Team Providers + +------+ + | Care Armature Straightener Name | Role | Phone | + [...] | +--------+ + + + + | 01/23/ | Documentati | Hematology/Medical | Work, Social | Social Work Notes | | 2018 | on | Oncology at [place] | | | | | | for Health & Healing | | | | | | [address] | | | | | | Mailcode: [place] | | | | | | [facility] and | | | | | | [facility] 2 | | | | | | [place], [place] | | | | | | [address] | | | | | | [phone] | | | +--------+ + + + [...] [place] | | | | | | [address] | | | | | | [phone] | | | | | | | | +--------+ + + + + | 03/25/ | Office | Orthopedics | Lynda Basurto, | | | 2018 | Visit | | [address] | | | | | | [address] | | | | | | [place], [place] | | | | | | [address] | | | | | | [phone] | | | | | | | | +--------+ + + + + | 03/25/ | Office | Hematology & | Sandra Patel MD | | | 2019 | Visit | Oncology | [address] | | | | | | [place] | | | | | | [address] | | | | | | [phone] | | | | | | | | +--------+ + + + + documented as of this encounter Visit Diagnoses Not on filedocumented in this encounter"
--- OUTSIDE RECORDS SUMMARY | ~2019-01-30 | XMS | Encounter Summary ---
Demographics + + + | Address | [address] | | | [place] [address] | + + + | Home Phone | | + + + | Preferred Language | Unknown | + + + | Marital Status | Single | + + + | Uatsdin Affiliation | CAT | + + + [...] Team Providers + +------+ + | Care Instrument Repair Supervisor Name | Role | Phone | [...] | 2018 | Encounter | Oncology at [place] | [address] | | | | | for Health & Healing | [place], [place] | | | | | [address] | [address] | | | | | Mailcode: [place] | [phone] | | | | | for Health and | | | | | | Healing, Building 2 | | | | | | [place], [place] | | | | | | [address] | | | | | | [phone] | | | +--------+ + + + [...] Scott | | | | | | [facility] [place] | | | | | | [address] | | | | | | [phone] | | | | | | | | +--------+ + + + + | 03/25/ | Office | Orthopedics | Lynda Basurto, | | | 2018 | Visit | | [address] | | | | | | [address] | | | | | | [facility] [place] | | | | | | [address] | | | | | | [phone] | | | | | | | | +--------+ + + + + | 03/25/ | Office | Hematology & | Sandra Patel MD | | | 2019 | Visit | Oncology | [address] | | | | | | [place] | | | | | | [address] | | | | | | [phone] | | | | | | | | +--------+ + + + + documented as of this encounter Visit Diagnoses Not on filedocumented in this encounter"
--- OUTSIDE RECORDS SUMMARY | ~2019-01-30 | XMS | Encounter Summary ---
Demographics + + + | Address | [address] | | | [place] [address] | + + + | Home Phone [...] Providers + +------+ + | Care Property Inspector Name | Role | Phone | [...] | 02/05/ | Lab | Laboratory at [facility] | | Synovial sarcoma | | 2018 | | [address] | | ([facility]) | | | | [place], [place] | | | | | | [address] | | | | | | [phone] | | | +--------+------+ + + + [...] | | | 2018 | | | [address] | | | | | | [place], [place] | | | | | | [address] | | | | | | [phone] | | | | | | | | +--------+ + + + + | 03/25/ | Office | Orthopedics | Lynda Basurto, | | | 2018 | Visit | Minerva DIAS [address] | | | | | | [address] | | | | | | [place], [place] | | | | | | [address] | | | | | | [phone] | | | | | | | | +--------+ + + + + | 03/25/ | Office | Hematology & | Sandra Patel MD | | | 2019 | Visit | Oncology | [address] | | | | | | [place], [place] | | | | | | [address] | | | | | | [phone] | | | | | | | [...] [facility] | [address] | [place] [address] | | | SERVICES, | [address] [...] [facility] | [address] | [place] [address] | | | SERVICES, | [address] [...] | + + + + + | [facility] | [address] | [place] [address] | | | SERVICES, CORE | [address] [...] | | | LABORATORY | | | NIUEAN | | | SERVICES, | | | [...] + + + + + | [facility] | [address] | [place] [address] | | | SERVICES, CORE | [address] | | | + + + + + documented in this encounter Visit Diagnoses + + | Diagnosis | + + | 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
--- OUTSIDE RECORDS SUMMARY | ~2019-01-30 | XMS | Encounter Summary ---
Demographics + + + | Address | [address] | | | [place] [address] | + + + | Home Phone [...] Team Providers + +------+ + | Care Oracle Adf Developer Name | Role | Phone | [...] + + | 02/19/ | Office | [facility] Orthopaedics | Zak Coats, | 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 | & Rehabilitation at | [address] | ([facility]) (Primary Dx); | | | | H2 [address] | [address] | Status post below | | | | Sonia Mailcode: | [place], [place] | knee amputation of | | | | [facility] | [address] | left lower extremity | | | | and Healing, | [phone] | ([facility]) | | | | Building 2 | | | | | | [place], [place] | | | | | | [address] | | | | | | [phone] | | | +--------+---------+ + + + [...] documented as of this encounter Progress Notes Zak [...] coordinate this with her hospitalizati ons for chemotherapy. d ocumented in this encounter Plan of Treatment +--------+ + + + + | Date | Type | Specialty | Care Team | Description | +--------+ + + + + | 03/25/ | Appointment | Radiology | Sandra Patel MD | | | 2018 | | | [address] | | | | | | [place], [place] | | | | | | [address] | | | | | | [phone] | | | | | | | | +--------+ + + + + | 03/25/ | Office | Orthopedics | Lynda Basurto, | | | 2018 | Visit | | [address] | | | | | | [address] | | | | | | [place], [place] | | | | | | [address] | | | | | | [phone] | | | | | | | | +--------+ + + + + | 03/25/ | Office | Hematology & | Sandra Patel MD | | | 2018 | Visit | Oncology | [address] | | | | | | [place], [place] | | | | | | [address] | | | | | | [phone] | | | | | | | | +--------+ + + + + documented as of this encounter Visit Diagnoses + + | Diagnosis | + + | 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
--- OUTSIDE RECORDS SUMMARY | ~2019-01-30 | XMS | Encounter Summary ---
Demographics + + + | Address | [address] | | | [place] [address] | + + + | Home Phone [...] Team Providers + +------+ + | Care Splitting Machine Feeder Name | Role | Phone [...] | | 2017 | | Oncology at [place] | | | | | | for Health & Healing | | | | | | [address] | | | | | | Mailcode: [place] | | | | | | for Health and | | | | | | [facility] 2 | | | | | | [place], [place] | | | | | | [address] | | | | | | [phone] | | | +--------+ + + + [...] [place] | | | | | | [address] | | | | | | [phone] | | | | | | | | +--------+ + + + + | 03/25/ | Office | Orthopedics | Lynda Basurto, | | | 2018 | Visit | | [address] | | | | | | [address] | | | | | | [place], [place] | | | | | | [address] | | | | | | [phone] | | | | | | | | +--------+ + + + + | 03/25/ | Office | Hematology & | Sandra Patel MD | | | 2019 | Visit | Oncology | [address] | | | | | | [facility] [place] | | | | | | [address] | | | | | | [phone] | | | | | | | | +--------+ + + + + documented as of this encounter Visit Diagnoses Not on filedocumented in this encounter"
--- OUTSIDE RECORDS SUMMARY | ~2019-01-30 | XMS | Encounter Summary ---
Demographics + + + | Address | [address] | | | [place] [address] | + + + | Home Phone [...] Team Providers + +------+ + | Care Machine Operator Transplanter Name | Role | Phone | + [...] | 2018 | on | Oncology at [place] | [address] | follow-up ([facility] | | | | for Health & Healing | [place], [place] | and Labs - Cycle #2) | | | | [address] | [address] | | | | | Mailcode: [place] | [phone] | | | | | for Health and | | | | | | Healing, Building [address] | | | | | | [place], [place] | | | | | | [address] | | | | | | [phone] | | | +--------+ + + + [...] [place] | | | | | | [place], [place] | | | | | | [address] | | | | | | [phone] | | | | | | | | +--------+ + + + + | 03/25/ | Office | Orthopedics | Lynda Basurto, | | | 2018 | Visit | | [address] | | | | | | [address] | | | | | | [place], [place] | | | | | | [address] | | | | | | [phone] | | | | | | | | +--------+ + + + + | 03/25/ | Office | Hematology & | Sandra Patel MD | | | 2018 | Visit | Oncology | [address] | | | | | | [facility], [place] | | | | | | [address] | | | | | | [phone] | | | | | | | | +--------+ + + + + documented as of this encounter Visit Diagnoses + + | Diagnosis | + + | 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
--- OUTSIDE RECORDS SUMMARY | ~2019-01-30 | XMS | Encounter Summary ---
Demographics + + + | Address | [address] | | | [place] [address] | + + + | Home Phone [...] Providers + +------+ + | Care Metal Ceiling Builder Name | Role | Phone | + +------+ + | Santo Godoen MD | PCP | | + +------+ [...] | 2018 | on | Oncology at [place] | PharmD [address] | (Take home | | | | for Health & Healing | [address] | anti-emetics) | | | | [address] | [place], [place] | | | | | Mailcode: [place] | [address] | | | | | for Health and | | | | | | Healing, [address] | | | | | | [place], [place] | | | | | | [address] | | | | | | [phone] | | | +--------+ + + + [...] Scott | | | | | | [place], [place] | | | | | | [address] | | | | | | [phone] | | | | | | | | +--------+ + + + + | 03/25/ | Office | Orthopedics | Lynda Basurto, | | | 2018 | Visit | | [address] | | | | | | [address] | | | | | | [place], [place] | | | | | | [address] | | | | | | [phone] | | | | | | | | +--------+ + + + + | 03/25/ | Office | Hematology & | Sandra Patel MD | | | 2018 | Visit | Oncology | [address] | | | | | | [place], [place] | | | | | | [address] | | | | | | [phone] | | | | | | | | +--------+ + + + + documented as of this encounter Visit Diagnoses Not on filedocumented in this encounter"
--- OUTSIDE RECORDS SUMMARY | ~2019-01-30 | XMS | Encounter Summary ---
Demographics + + + | Address | [address] | | | [place] [address] | + + + | Home Phone [...] + + + | Author | [facility] | + + + | Organization | [facility] | + + + | Address | Unknown | + + + | Phone | Unavailable | + + + Support + + +---------+ + | Name | Relationship | Address | Phone | + + +---------+ + | Kika Cage | ECON | Unknown | | + + +---------+ + Care Team Providers + +------+ + | Care Bpm Analyst Name | Role | Phone | + +------+ + | Santo Gooden MD | PCP | | + +------+ + Encounter Details +--------+ + + + + | Date | Type | Department | Care Team | Description | +--------+ + + + + | 07/10/ | Documentati | Infectious | Angely Stephen, | | | 2018 | on | Diseases at [facility] | [address] | | | | | Floor [address] | [facility] | | | | | [facility] | [place], [place] | | | | | Mailcode: [address] | [address] | | | | | Physicians Katie | [phone] | | | | | [place], [place] | | | | | | [address] | | | | | | [phone] | | | +--------+ + + + [...] | | | 2018 | | | [address] | | | | | | [place], [place] | | | | | | [address] | | | | | | [phone] | | | | | | | | +--------+ + + + + | 03/25/ | Office | Orthopedics | Lynda Basurto, | | | 2019 | Visit | | [address] | | | | | | [address] | | | | | | [place], [place] | | | | | | [address] | | | | | | [phone] | | | | | | | | +--------+ + + + + | 03/25/ | Office | Hematology & | Sandra Patel MD | | | 2019 | Visit | Oncology | [address] | | | | | | [place] | | | | | | [address] | | | | | | [phone] | | | | | | | | +--------+ + + + + documented as of this encounter Visit Diagnoses Not on filedocumented in this encounter"
--- OUTSIDE RECORDS SUMMARY | ~2019-01-30 | XMS | Encounter Summary ---
Demographics + + + | Address | [address] | | | [place] [address] | + + + | Home Phone [...] Team Providers + +------+ + | Care Pearl Fisherman Name | Role | Phone | + [...] | | | | | lower | [place], [place] | [facility] [place] | | | | | extremity | [address] | [address] | | | | | (HCC) | Phone: | Phone: | | | | | Procedures | [phone] | [phone] | | | | | REQUEST TO | Fax: | Fax: | | | | | SURGERY | [phone] | [phone] | | | | | SILK CONDITIONER | | | | | | | ID RAD RESEC | | | | | | | TUMOR,SOFT | | | | | | | TISS FOOT | | | | | | | ID RESECT | | | | | | [...] Oncology | Malignant | Lynda, | [address] | | | | | neoplasm of | MD [address] | | | | | soft tissue | [address] | [place], [place] | | | | | of left | [address] | [address] | | | | | lower | [place], [place] | Phone: | | | | | extremity | [address] | [phone] | | | | | (HCC) | Phone: | Fax: | | | | | Procedures | [phone] | [phone] | | | | | CONSULT TO | Fax: | | | | | | HEMATOLOGY / | [phone] | | | | | | ONCOLOGY [...] | | | neoplasm of | MD [address] | | | | | | soft tissue | [address] | | | | | | of left | [address] | | | | | | lower | [place], [place] | | | | | | extremity | [address] | | | | | | (HCC) | Phone: | | | | | | Procedures | [phone] | | | | | | CT CHEST WO | Fax: | | | | | | CONTRAST | [phone] | | + +--------+ + + + [...] | | left | [place] | [address] [facility] | | | | | Sarcoma | [place] | [facility] | | | | | (HCC) L | Health | Rd | | | | | Foot Mass | Center | [place], [place] | | | | | (Sarcoma) | [address] | [address] | | | | | | [place] | Phone: | | | | | | Way | [phone] | | | | | | [place], | Fax: | | | | | | [place] [address] | [phone] | | | | | | Phone: | | | | | | | [phone] | | | | | | | Fax: | | | | | | | [phone] | | +--------+--------+ + + + + [...] tissue of | | | | [facility] [address] | [address] | left lower extremity | | | | Ave Mailcode: | [place], [place] | ([facility]) (Primary Dx) | | | | [facility] | [address] | | | | | and Healing, | [phone] | | | | | Building [address] | | | | | | [place], [place] | | | | | | [address] | | | | | | [phone] | | | +--------+---------+ + + + [...] addition to that, it she is at [facility] for significant wound healing problems and [...] has wound complications, she is returning to [facility] until he gets fully addressed. -Because of [...] [address] | | | | | | [place], [place] | | | | | | [address] | | | | | | [phone] | | | | | | | | +--------+ + + + + | 03/25/ | Office | Orthopedics | Lynda Basurto, | | | 2018 | Visit | | [address] | | | | | | [address] | | | | | | [place], [place] | | | | | | [address] | | | | | | [phone] | | | | | | | | +--------+ + + + + | 03/25/ | Office | Hematology & | Sandra Patel MD | | | 2018 | Visit | Oncology | [address] | | | | | | [place], [place] | | | | | | [address] | | | | | | [phone] | | | | | | | [...]
--- OUTSIDE RECORDS SUMMARY | ~2019-01-30 | XMS | Encounter Summary ---
Demographics + + + | Address | [address] | | | [place] [address] | + + + | Home Phone [...] Providers + +------+ + | Care Head Sugar Reprocess Operator Name | Role | Phone | [...] BELOW KNEE | | 2018 | | [facility] | MD [address] | AMPUTATION | | | | Admitting Desk | [facility] | | | | | Located on the 9 | [place], [place] | | | | | floor [address] [facility] | [address] | | | | | [facility] | [phone] | | | | | [place], [place] | | | | | | [address] | | | +--------+---------+ + + + [...] Dean DO - 02/11/2018 12:26 PM PDT [facility]AEDICS & [facility]HABILITATION INPATIENT HOSPITAL DISCHARGE SUMMARY & INTERDISCIPLINARY INSTRUCTIONS Patient: Tati Cage CSN: [id number] Admission Date: 02/06/2018 Discharge Date: 02/11/2018 Attending Physician: Haydee Basurto MD PCP: Santo Gooden MD Service: [facility] Orthopaedics & Rehabilitation Diagnoses Principal Final Diagnosis: [...] they suspect your wound is infected. Call [facility] Orthopedics first at [phone]. Activity Non-weight bearing on left leg. Restrictions: no range of motion restrictions. Encourage to perform extension exercises on left leg. OK to use knee scooter Condition on Discharge Stable Follow-Up Appointments ORTHOPEDICS OUTPATIENT CLINIC: 02/19/2018 2:20 PM Haydee Basurto [facility] Orthopaedics & Rehabilitation [phone] [place] PCP: As needed for any medical [...] administration instructions. - Call Orthopedic Clinic at [phone] if any persistent, localized swelling that does [...] and ask for the orthopaedic surgery resident software quality automation engineer. Additional Post-Op Instructions / What to Expect [...] Pierre Dean DO Orthopedic Surgery Resident Pager [phone] [facility] Department of Orthopaedics & Rehabilitation [address] [place] [address] Mail Code: OP31 [facility] [address] documented in this e ncounter Discharge Instructions Instructions Lanette Brantley MSW - 02/07/2018AMPUTEE RESOURCES: http://www.[employer]/new-patient/ampower/Pages/Home.aspx http://www.[employer]/new-patient/ampower/ed-resources/Pages/Ftced-irg-Emasczcbyr.asp x http://www.vmxjj7xyqy.org.au/news-events/news/vkyqiimsn-tkdnzs-lrfaexgaxo-yt-qtzv-bfhxeylx- bcl-zfwks-rtkfjzsg MENTAL HEALTH/SUICIDE PREVENTION RESOURCES [facility] is a 24-hour behavioral and mental health services center, providing immediate psychi atric care and a path to recovery for people experiencing a mental health crisis. Address: [facility], [address] [place] [address] Hours: 24 hours/day, 7 days a week, no appointment needed NATIONAL CRISIS LINES 25/03 National Suicide Prevention Lifeline 9-231-811-TALK (4137) Hearing and Speech Impaired 7-769-905-4TTY (5886) 25/03 Mental Health Treatment Referral Line 5-603-696-HELP (9516) [facility] CRISIS SERVICES For emergencies or life threatening situations, please call [facility] Mental Health Crisis Line [phone] (24 hours a day, 7 days a week) [facility] Mental health services for adults, children, and families; walk-ins welcome. Access informa tion and referral line for [facility]'s services in housing, recovery and assistance. Address: [facility]/Referral service [address] [place] [address] (Near [address] [place] [address]) [place], [address] Transit: [employer] Hours: 7 a.m.-10:00 p.m, 7 days [...] Practitioner Acute Pain Service [facility] [address] [place] [address] Pierre Purcell DO - 08/2018 6:46 AM PDT [facility]AEDICS & REHABILITATION PROGRESS NOTE [...] Pierre Dean DO Orthopedic Surgery Resident Pager [phone] Pierre Purcell DO - 07/2018 11:43 AM PDT [facility] OF [facility]THOPAEDICS & REHABILITATION PROGRESS NOTE [...] Pierre Dean DO Orthopedic Surgery Resident Pager [phone] hJesusita chang NP - 02/10/2018 11:24 AM [...] Jesusita Mccullough NP Adult Pain Service Pager [phone] Team Pager [phone] Pierre Purcell DO - 02/09/2018 1:34 PM PDT [facility] OF [facility]OPAEDICS & REHABILITATION PROGRESS NOTE [...] Pierre Dean DO Orthopedic Surgery Resident Pager [phone] John Crawley - 02/10/20 12:59 PM PDTTransthoracic [...] and summary of old medical records (source: [employer]), as summarized in the body of the note. Discussion of case with another healthcare provider nurse. Please page APS #[phone] with questions and concerns. [address] MD [...] and summary of old medical records (source: [employer]), as summarized in the body of the note. Discussion of case with another healthcare provider nurse. Please page APS #[phone] with questions and concerns. [address] MD a, Naeem Mckeon MD - 02/08/2018 9:05 AM PDTFormatting of this note might be different from the origi nal. [facility]PARTMENT OF ORTHOPAEDICS & REHABILITATION PROGRESS NOTE [...] discharge. HAYDE FLORES MD Orthopaedics PGY-3 Pager: [phone] oung, Gualberto Watson MD - 02/08/2018 8:57 AM PDTPt sleeping PE: Ht 1.727 m (5' 8"), Wt 139.7 kg (308 lb), BP 121/61, Pulse 89, Temperature 36.9 C (98.4 F), RR 18, SpO2 98%, BMI 46.83 kg/(m^2). 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 HAYDE FLORES MD Orthopaedics PGY-3 Pager: [phone] Madiha Gonzales FNP - 02/07/2018 7:54 AM [...] on file Social History Narrative Works in [email or web address] at a [employer] near [place]. No kids. Lives with her mother Kika. [...] by primary care team. Madiha Rebollar DNP, ZIPPER CUTTER-C Adult Pain [facility] [address] [place] [address] NicolásannellPatricio MD - 02/07/2018 7:18 AM PDTGold Surgery Brief Progress Note ID: Tati Cage is a 32 y.o. 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 HAYDE FLORES MD Orthopaedics PGY-3 Pager: [phone] documente d in this encounter Plan of Treatment +--------+ + + + + | Date | Type | Specialty | Care Team | Description | +--------+ + + + + | 03/25/ | Appointment | Radiology | Sandra Patel MD | | | 2018 | | | [address] | | | | | | [place], [place] | | | | | | [address] | | | | | | [phone] | | | | | | | | +--------+ + + + + | 03/25/ | Office | Orthopedics | Haydee Basurto, | | | 2018 | Visit | | [address] | | | | | | [address] | | | | | | [place], [place] | | | | | | [address] | | | | | | [phone] | | | | | | | | +--------+ + + + + | 03/25/ | Office | Hematology & | Sandra Patel MD | | | 2018 | Visit | Oncology | [address] | | | | | | [place], [place] | | | | | | [address] | | | | | | [phone] | | | | | | | [...] rmed At | + +------ + | [facility] | [facility] DEPT OF | | and [facility] Adult Echocardiography | CARDI OLOGY | | Laboratory [address] [place] [address], | | | [place] [address] Pt Name: | | | TATI CAGE Study Date/Time 02/09/2018 / 11:45:04 | | | AMMRN: [id number] Most recent | | | prior: -Acc #: [id number] No. previous | | | echos: 0DOB: 1985 32 years Heart Rate: | | | 78 bpmHeight: 68.0 in Blood | | | Pressure: 121/61 mm/HgWeight: 308.0 | | | lb Gender: | | | FBSA: 2.46 m2 Order | | | ID: [id number] Compliance Paralegal: John Gonzalez MA, | | | RDCSSonographer [...] | indexed values Report electronically signed by: [id number] Justin | | | Malachi DIAS (02/09/2018, 3:09:17 PM) Final | | |Report electronically signed by: [id number] Justin Ly MD (02/09/2018, 3:09:17 | | |PM) | | | | | | | | | | | | Final | | + +------ + + + | Procedure Note | + + | Interface, Cardiology Results - 02/09/2018 3:09 PM [facility] | | [facility] Echocardiography Laboratory [address] [place] [address] | | [place], [place] [address] Pt Name: TATI WILKERSON | | CAGE Study Date/Time 02/09/2018 / 11:45:04 AMMRN: [id number] [facility] | | recent prior: -Acc #: [id number] No. previous echos: 0DOB: 1985 32 | | years Heart Rate: 78 bpmHeight: 68.0 in Blood Pressure: 121/61 | | mm/HgWeight: 308.0 lb Gender: FBSA: 2.46 m2 | | Order ID: [id number] Compliance Paralegal: John Gonzalez MA, RDCSSonographer | | 2:Referring [...] values Report | | electronically signed by: [id number] Justin Ly MD (02/09/2018, 3:09:17 PM) | [...] | | | |Report electronically signed by: [id number] Justin Ly MD (02/09/2018, 3:09:17 | |PM) | | | | | | | | Final | + + + + + + + | Performing | Address | City/State/Zipcode | Phone Number | | Organization | | | | + + + + + | [facility] | [address] [facility] | [place], [place] | | | CARDIOLOGY | [address] | [address] | | + + + + + [...] [facility] | [address] | [place] [address] | | | SERVICES, CORE | [address] [...] | | | LABORATORY | | | CH[facility] | | | SERVICES, | | | [...] + + | [facility] | [address] | [place] [address] | | | SERVICES, [facility] | [address] | | | + [...] Preoperative | | | Diagnosis: need for ferry terminal agent central venous access Postoperative | | | [...] | | Attending Surgeon: Haydee Basurto MD Online Media Buyer(s): Hayde | | Mike Flores MD. Preoperative [...] | MDYD/MODLDD: 02/06/2018 15:36:23DT: 02/06/2018 19:40:30Job #: [id number] | + + X-RAY PORTABLE CHEST 1 VIEW (02/06/2018 4:54 PM PDT) + + | Specimen | + + | | + + + + + | Narrative | Performed At | + + + | EXAM: AK CHEST 1 [...] Note | + + | Service Account, [employer] Res In Interface - 02/06/2018 5:11 [...] | Hayde Flores MD 02/06/2018 3:58 PM [facility] | | | [facility] Department of Orthopaedics & Rehabilitation | | | BRIEF OPERATIVE NOTE | | | Patient: Tati Cage | | | | | | CSN: [id number] | | | Date: 02/06/2018 | | | Attending | | | Surgeon: Haydee Basurto MD Online Media Buyer(s): 1. HAYED FLORES, | | | Preoperative Diagnosis(es): 1. [...] Saturday HAYDE FLORES MD | | | [facility] | | | [place] Department of Orthopaedics & Rehabilitation [address] [place] [address] | | | [facility] Mail Code: OP31 [facility] [address] | | | Pager: [phone] | | + + + CAPILLARY BLOOD [...] [facility] | [address] | [place], [place] | | | [place] [place] [place] | [facility] | [address] | | | TESTS | | | [...] | | | | | | biopsy ([id number]). Case | | | | | | [...] biopsy | | | | | | [id number]). Please | | | | | | [...] | | | | | | number [id number]. Left | | | | | | [...] stitch. | | | | | | Kindergarten Prep Teacher sections | | | | | | [...] | | | | | | underlying [id number]-J61, | | | | | | composite section of | | | | | | posterior tumor | | | | | | ramrampE99-V08, | | | | | | additional composite | | | | | | section of miwnaJ04-E23, | | | | | | additional composite | | | | | | section of ijocgH12-T46, | | | | | | additional composite | | | | | | section of ytjmxB02-A92, | | | | | | additional composite | | | | | | section of tumor | | | | | | A31-A32, composite | | | | | | section of anterior | | | | | | lodvyI48, uninvolved | | | | | | skin and soft tissue | | | | | | adjacent to anterior | | | | | | zhbxqK54, uninvolved | | | | | | skin and soft tissue | | | | | | adjacent to posterior | | | | | | wjvueY22, underlying | | | | | | bone with attached soft | | | | | | swbjlbP55, navicular and | | | | | | medial cuneiform bones | | | | | | and aawvyG59, navicular | | | | | | [...] | + + + + + | [facility] | [address] | [place] [address] | | | PATHOLOGY | [address] | | | + + + + + PROCEDURE NOTE (02/06/2018 2:20 PM PDT) + + + | Narrative | Performed At | + + + | Macie Loredo MD 02/06/2018 2:37 PM PATIENT NAME: Tati | | | Rhea SMITH MR#: [id number] : 1985 Date: 02/06/2018 | | | Attending Surgeon: Macie Loredo MD Online Media Buyer(s): | | | Jan Giles MD Preoperative [...] | | | unit. Macie Loredo MD Ticket Agent Division of | | | Surgical Oncology Thyroid and Parathyroid Center [facility] | | + + + X-RAY FLUOROSCOPY [...] (H) | 70 - 99 mg/dL | PASU - | | | GLUCOSE, | | [...] [facility] | [address] | [place], [place] | | | [facility] CARE | [address] | [address] | | | TESTS | | | [...] | | | | | NEEDED, Starting [facility] 02/06/18 at | | | | [...] | | | | | dose on [facility] 02/06/18 at 1745, Until | | [...]
--- OUTSIDE RECORDS SUMMARY | ~2019-01-30 | XMS | Encounter Summary ---
Demographics + + + | Address | [address] | | | [place] [address] | + + + | Home Phone [...] Team Providers + +------+ + | Care Factory Maintenance Manager Name | Role | Phone | [...] | Floor [address] | [facility] | | | | | [facility] | [place], [place] | | | | | Mailcode: L457 | [address] | | | | | Physicians Katie | [phone] | | | | | [place], [place] | | | | | | [address] | | | | | | [phone] | | | +--------+ + + + [...] | | | 2019 | | | [address] | | | | | | [place], [place] | | | | | | [address] | | | | | | [phone] | | | | | | | | +--------+ + + + + | 03/25/ | Office | Orthopedics | Lynda Basurto, | | | 2018 | Visit | | [address] | | | | | | [address] | | | | | | [place], [place] | | | | | | [address] | | | | | | [phone] | | | | | | | | +--------+ + + + + | 03/25/ | Office | Hematology & | Sandra Patel MD | | | 2018 | Visit | Oncology | [address] | | | | | | [place], [place] | | | | | | [address] | | | | | | [phone] | | | | | | | | +--------+ + + + + documented as of this encounter Visit Diagnoses Not on filedocumented in this encounter"
--- OUTSIDE RECORDS SUMMARY | ~2019-01-30 | XMS | Encounter Summary ---
Demographics + + + | Address | [address] | | | [place] [address] | + + + | Home Phone [...] + + + | Author | [facility] | + + + | Organization | [facility] | + + + | Address | Unknown | + + + | Phone | Unavailable | + + + Support + + +---------+ + | Name | Relationship | Address | Phone | + + +---------+ + | Kika Cage | ECON | Unknown | | + + +---------+ + Care Team Providers + +------+ + | Care Sap Specialist Name | Role | Phone | + +------+ + | Santo Gooden MD | PCP | | + +------+ + Encounter Details +--------+ + + + + | Date | Type | Department | Care Team | Description | +--------+ + + + + | 03/31/ | Procedure | Diagnostic Imaging | | | | 2018 | Pass | Services at [facility] | | | | | | [address] | | | | | | [facility] | | | | | | Mailcode: L340 [facility] | | | | | | [facility], | | | | | | [place] [address] | | | | | | [phone] | | | +--------+ + + + [...] | | | 2018 | | | [address] | | | | | | [place], [place] | | | | | | [address] | | | | | | [phone] | | | | | | | | +--------+ + + + + | 03/25/ | Office | Orthopedics | Lynda Basurto, | | | 2018 | Visit | | [address] | | | | | | [address] | | | | | | [place], [place] | | | | | | [address] | | | | | | [phone] | | | | | | | | +--------+ + + + + | 03/25/ | Office | Hematology & | Sandra Patel MD | | | 2019 | Visit | Oncology | [address] | | | | | | [place], [place] | | | | | | [address] | | | | | | [phone] | | | | | | | | +--------+ + + + + documented as of this encounter Visit Diagnoses Not on filedocumented in this encounter"
--- OUTSIDE RECORDS SUMMARY | ~2019-01-30 | XMS | Encounter Summary ---
Demographics + + + | Address | [address] | | | [place] [address] | + + + | Home Phone [...] + + + | Author | [facility] | + + + | Organization | [facility] | + + + | Address | Unknown | + + + | Phone | Unavailable | + + + Support + + +---------+ + | Name | Relationship | Address | Phone | + + +---------+ + | Kika Cage | ECON | Unknown | | + + +---------+ + Care Team Providers + +------+ + | Care Naturopath Name | Role | Phone | + [...] Request | | Cardiology | Diagnoses | Jorge, | | | | | | Synovial | Sandra Schmitt MD | | | | | | sarcoma | [address] | | | | | | ([facility]) | Ave | | | | | | Procedures | [place], [place] | | | | | | TRANSTHORACI | [address] | | | | | | C | Phone: | | | | | | ECHOCARDIOGR | [phone] | | | | | | AM WITH | Fax: | | | | | | STRAIN - | [phone] | | | | | | CARDIO | | | | | | | MECHANICS, | | | | | | | ADULT | | | + +--------+ + + + + Reason for Visit + + + | Reason | Comments | + + + | Patient education | | + + + Encounter Details +--------+ + + + + | Date | Type | Department | Care Team | Description | +--------+ + + + + | 01/23/ | Documentati | Hematology/Medical | Sandra Patel MD | Patient education | | 2018 | on | Oncology at [facility] | [address] | | | | | [facility] | [place], [place] | | | | | [address] | [address] | | | | | Mailcode: [facility] | [phone] | | | | | for Health and | | | | | | Healing, [address] | | | | | | [place], [place] | | | | | | [address] | | | | | | [phone] | | | +--------+ + + + [...] [address] | | | | | | [place], [place] | | | | | | [address] | | | | | | [phone] | | | | | | | | +--------+ + + + + | 03/25/ | Office | Orthopedics | Lynda Basurto, | | | 2018 | Visit | | [address] | | | | | | [address] | | | | | | [place], [place] | | | | | | [address] | | | | | | [phone] | | | | | | | | +--------+ + + + + | 03/25/ | Office | Hematology & | Sandra Patel MD | | | 2018 | Visit | Oncology | [address] | | | | | | [place], [place] | | | | | | [address] | | | | | | [phone] | | | | | | | | +--------+ + + + + + +------+--------+ + + | Name | Type | Priori | Associated Diagnoses | Order Schedule | | | | ty | | | + +------+--------+ + + | TRANSTHORACIC | ECG | Routin | Synovial sarcoma | Ordered: 01/28/2018 | | ECHOCARDIOGRAM WITH | | e | ([facility]) | | | STRAIN - CARDIO [...]
--- OUTSIDE RECORDS SUMMARY | ~2019-01-30 | XMS | Encounter Summary ---
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 | Role | Phone [...] + + | 04/24/ | Hospital | [facility] [id number] | Savanna Mari, | | | 2018 - | Encounter | Fidencio Weathers | [address] | | | | | Road Mailcode: | [place], [place] | | | 04/27/ | | [id number] | [address] | | | 2017 | | [place], | [phone] | | | | | [place] [address] | | | | | | [phone] | | | +--------+ + + + [...] + + + | Blood Pressure | 128/75 | 04/27/2018 9:18 AM | | | | | PDT | | + + + + + | Pulse | 74 | 04/27/2018 9:18 AM | | | | | PDT | | + + + + + | Temperature | 36.9 C (98.4 F) | 04/27/2018 9:18 AM | | | | | PDT | | + + + + + | Respiratory Rate | 18 | 04/27/2018 9:18 AM | | | | | PDT | | + + + + + | Oxygen Saturation | 98% | 04/27/2018 9:18 AM | | | | | PDT | | + + + + + | Inhaled Oxygen | - | - | | | Concentration | | | | + + + + + | Weight | 150.5 kg (331 lb | 04/26/2018 11:50 AM | | | | 12.7 oz) | PDT | | + + + + + | Height | 172.7 cm (5' 8") | 04/24/2018 2:04 PM | | | | | PDT | | + + + + + | Body Mass Index | 50.45 | 04/24/2018 2:04 PM | | | [...] encounter Discharge Summaries Romeo Sky MD - 04/27/2018 7:30 AM PDT [facility] Discharge Summary Discharging Provider: ROMEO SKY MD Discharging Attending Physician: Savanna Mari MD Hospital Stay: 3 day(s) PCP: Santo Gooden MD Admission Date: 04/24/2018 Discharge Date: 04/27/18 Hospital Stay: 3 day(s) Reason for Admission: High Risk Chemotherapy for 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 Patel ok with q20hrs interval. - neulasta at [place] 04/29 @ 10 am. labs and port care@ [facility]. - Chemotherapy: C3D1 04/24/18 Ifos 2500mg/m^2 x 2.6 m^2with Mesna 2200mg in NaCl 0.9% for 2hrs q20hrs x 4doses Epirubicin 30mg/m2 x x 2.6 [id number] x 4doses Mesna 2200mg for 15minutes to be given 4hrs and 8hrs after the start of each dose ofIfo sfamide - Supportive care: Dexamethasone 8mg daily x 4doses Ondansetron 24mg daily x 4doses Olanzapine 10mg qhs. Prochlorperazine 10mg po q8hrs Lorazepam 0.5-1mg prn q6hrs, prochloparazine 10mg IV q6hrs prn if unable to tolerate po. 1L NaCl 0.9% bolus follow by MIVF 125mL/hr. # Recurrent Neutropenic fever: pt will still be on cefepime and metronidazole through 05/15. # Recent Cellulitis/Osteomyelitis ofLLE Stump/BKA: Per Dr. Patel there is a risk of wound dehiscence with starting chemo, but the benefit of starting chemo outweighs the risk. Dr. Basurto saw pt in clinic 03/12, she removed a few stitches but still left some in, Dr. Basurto cleared pt to have chemo. There wasno s/sxs of infection based on physical exam during C2 admission, given pt was neutropenic with C1 anticipated pt will become neutropenic a few day s after discharge, thus we discharged pt with prophy abx with clindamycin to also cover for MRSA. Pt was admitted for neutropenic fever 03/23/18, transferred to [facility] stump osteomyel itis/cellulitis due to E.Coli, Prevotella, and E. Faecalis required Irrigation and debrideme nt of left below-knee amputation amputation site, wound vac application on 03/24/18 and . She was initially treated empirically with vancomycin and cefepime, narrowed to piperaci llin-tazobactam on return of susceptibilities, pt was dc with iv abx. Dr. Stephen with ID saw pt in clinic 04/09/18, he switched pt to cefazolin 2 g IV q8 hours and added metronidazole 500 mg po q8 hours to cover for Prevotella. Given pt starting chemo and will get 3 additional cycles, after discussion with Dr. Basurto and Dr. Patel, extend antibiotics for an a dditional week with new end date of 05/15. - cont with cefepime 2g Q8hrs - cont metronidazole 500mg po q8hrs. # Anemia: 2/2 cancer and chemotherapy. H/H on admit no need for transfusion. - Will monitor labs outpatient with weekly cbc w diff. # Delayed nausea:aggressive supportive care as above. As above decreaseddex down to 8 mg daily from 20mg, increasing olanzapine from 5 to 10mg and start compazine 10mg q8hrs due to high dose dexamethasone exacerbate anxiety, jitteriness/restlessness. Should discharge pt with schedule dex x 4 days, olanzapine 10mg qhs and scheduled compazine 10mg q8hrs for the first 2 days(per pt's requesting only 2days instead of 4 days). # Heartburn: controlled with Zantac at home. - switch to famotidine 40mg daily during admission as Zantac is not on formula. # depression/Anxiety:exacerbation of anxiety due to high dose dex, reduced dex as above. Adjustments to medication as above. pt has not continue with [id number] qhs adjunct to citalopram. Pt spoke with SW in clinic. - cont with home dose Citalopram 40mg daily - cont with decreased dose of dexamethasone 8mg # Obesity: BMI 48. # stump pain/phantom pain: better control. Pt is now back down lyrica 225mg. - cont with lyrica 225mg bid - Oxycodone 5-15mg q3hrs prn # allergies: - continue loratadine 10mg daily # constipation prophy: - bisacodyl 5mg daily prn # hypokalemia: - Patient concerned about having to be admitted for hypokalemia in the past and requesting outpatient potassium supplementation - Will plan to discharge with Potassium Chloride 40 mEq daily # volume overload: -Given 1 dose of 20mg of Lasix during her stay # Fertility: per Dr. Patel's note, patient reports infertility at baseline (tried for 8 yea rs), thus no preservation strategy indicated. Currently Mirena for endometriosis. F:PO/IVF w/ chemo E:monitor and replace prn N:regular diet Ppx:Enoxaparin/ambulate tid Discharge Medications: Medication List START taking these medications ceFEPIme 2 gram Solr Commonly known as: MAXIPIME Inject 2 g into the vein (IV) every eight hours. Continue with medication as directed by In fectious disease through 05/15 for osteomyelitis Indications: bone/joint infection dexamethasone 4 mg Tab Commonly known as: DECADRON Take 2 tablets by mouth every twenty-four hours. Indications: Prevention of Chemotherapy-In duced Nausea and Vomiting potassium chloride SR 20 mEq Tbtq Commonly known as: K-DUR Take 2 tablets by mouth once daily. Indications: hypokalemia CHANGE how you take these medications prochlorperazine 5 mg Tab Commonly known as: COMPAZINE 04/27-05/01: Take 2 tablet by mouth every 6 hours. After 05/01 may take 2 tablet by mouth ever y 6 hours as needed. Max dose: 40 mg/day Indications: Prevention of Chemotherapy-Induced Na usea and Vomiting What changed: medication strength how much to take how to take this when to take this reasons to take [...] At 0900 and 1700. Indications: phantom pain metroNIDAZOLE 500 mg Tab Commonly known as: FLAGYL Take 1 tablet by mouth every eight hours. Indications: osteomyelitis Miscellaneous Medical Supply Mis Commonly known as: [...] times daily as neede d for constipation. ranitidine 150 mg Tab Commonly known as: ZANTAC Take 150 mg by mouth once daily at bedtime. senna-docusate 8.6-50 mg Tab Commonly known as: SENOKOT S Take 2 tablets by mouth two times daily. Prevention of opioid induced constipation STOP taking these medications acetaminophen 500 mg Tab Commonly known as: TYLENOL Rationale for Medication Changes: None Allergies: Allergies Allergen Reactions Chlorhexidine Rash Demerol [Meperidine Hcl] Pruritus Morphine Pruritus Code Status: Full POLST completed: no Additional Instructions: Condition on Discharge Good Diet Regular Regular diet- There are no restrictions to your diet. You may eat or drink whatever you pr efer, though healthy food choices are recommended. Activity No activity restrictions Home Health Referral after Hospitalization Resume nursing and port care for IV abx. Resume cefepime as prescribed. Please resume all labs as prescribed by Dr. Hailee GARCIA. Comments: I certify that this patient is under my care and that I, or Nurse Practitioner or Physician Furniture Sander working with me, had a face to face encounter with this patient on 04/25/2018 On behalf of Attending Physician: Savanna Mari MD I am ordering and certify that the following services are medically necessary home health s [facility] Evaluate and Treat I certify that the patient is homebound based on the following clinical findings Recent michi chin who may be suffering from weakness and pain and may have restrictions from their physic earl to limit certain activities such as getting out of bed for specific amount of time, walk ing the stairs once a day, etc Other Discharge Orders and Instructions Do not drive while taking narcotic pain medications. Drink at least 2 liters of fluid daily Call Heme-Onc Clinic at or after hours and on weekends call paging ope rator at [phone] ask for concrete mason doctor for Heme-Onc if you have any [...] medication - please take as prescri bed. Discharge Destination No service has been selected for the patient. Home Care Medical - Selection Complete Service Request Status Selected Specialties Address Phone Number Fax Number [facility] Selected Home Health Services [address] [place] [address] Social Care Services No service has been selected for the patient. Follow Up: Future Appointments Provider Department Dept Phone Center 05/15/2018 9:00 AM HEM NURSE TAWNADA Hematology/Medical Oncology at [facility] [phone] [facility] 05/15/2018 10:10 AM Sandra Patel Hematology/Medical Oncology at [facility] [phone] [facility] Contact information for other follow-up providers [place] 04/29/2018. Why: Neulasta and labs Contact information [phone]. Contact information for after-discharge halfway Care Medical [facility] . Specialty: Home Health Services Contact information [address] [place] [id number] Discharge Physical Exam: Last 24 hour min/max Temp: 36.6 C (97.9 F) Temp Min: 36.6 C (97.9 F) Max: 36.6 C (97.9 F) Heart Rate: 74 Pulse Min: 74 Max: 74 Resp: 18 Resp Min: 18 Max: 18 BP: 126/73 BP Min: 126/73 Max: 126/73 SpO2: 99 % SpO2 Min: 99 % Max: 99 % Body mass index is 50.45 kg/m. General - obese adult female patient in [facility] Neurologic - AO x 3, appropriate. foot miter operator grossly intact. Skin - No bruising or rashes. HEENT - EOMI, nonicteric sclera, no drainage. Oropharynx moist, without exudates or lesio ns. Pulmonary - Clear to auscultation bilaterally. Cardiac - Regular rate and rhythm without murmur. Abdomen - normoactive bowel sounds. Soft, nontender, nondistended. Extremities - Warm, well perfused. No edema. LLE: BKA, stump surgical wound healed, no s welling, redness or discharge. Lines: PAC accessed - NT, no erythema ROMEO SKY MD Hem/Onc Fellow [id number] Associated attestation - Kamaljit Mccallum, Savanna - 04/27/2018 7:12 PM PDTDate of Service: 04/27/20 18 Medical Oncology Attending Note: Patient was interviewed and personally examined by me today. I agree with the fellow's ass essment and stated plan of care. This includes: d/c today with outpatient follow up. See D /C summary Savanna Mari MD Clinical cod clerk Medical Oncology and Hematology documented in this encounter Medications at Time [...] documented as of this encounter Progress Notes Romeo Sky MD - 04/26/2018 6:01 AM PDT ONCOLOGY SERVICE PROGRESS NOTE Date: 04/26/2018 Author: Romeo Sky MD Attending: Savanna Mari MD Reason for Admission: High risk chemotherapy for synovial sarcoma. INTERVAL EVENTS: -Day 3/4 of chemotherapy today -Tolerating chemotherapy well -Slightly fluid up, so giving 20mg of IV Lasix SUBJECTIVE: Patient feels tired and puffy today. Otherwise, she has no complaints of nausea, vomiting, diarrhea, fevers, chills, SOB or CP. ROS: All other pertinent systems reviewed and are negative Medications Continuous Medication Dose/Rate, Route, Frequency Last Action sodium chloride 0.9 % (NS) IV infusion 125 mL/hr, 125 mL/hr, IV, CONTINUOUS New Ba/24 1412 Scheduled Medication Dose/Rate, Route, Frequency Last Action ceFEPIme (MAXIPIME) injection 2 g 2 g, IV, Q8H Given: 04/26 618 citalopram (CELEXA) tablet 40 mg 40 mg, oral, HS Given: 04/25 2149 dexamethasone (DECADRON) tablet 8 mg 8 mg, oral, Q20H Given: 04/25 125 enoxaparin (LOVENOX) injection 40 mg 40 mg, subQ, QPM Given: 04/25 2150 epiRUBICIN injection 80 mg 80 mg, IV, Q20H New Ba/24 135 famotidine (PEPCID) tablet 20 mg 20 mg, oral, BID Given: 04/25 2149 ifosfamide (IFEX) 2,500 mg/m2 = 6,500 mg, mesna (MESNEX) 2,200 mg in NaCl 0.9 % (NS) IV 0 mg, 0 mL/hr, IV, Q20H Stopped: 04/25 161 loratadine (CLARITIN) tablet 10 mg 10 mg, oral, DAILY Given: 04/25 931 mesna (MESNEX) 2,200 mg in NaCl 0.9 % (NS) IV 0 mg, 0 mL/hr, IV, Q20H Stopped: 04/25 2206 mesna (MESNEX) 2,200 mg in NaCl 0.9 % (NS) IV 0 mg, 0 mL/hr, IV, Q20H Stopped: 04/25 1837 metroNIDAZOLE (FLAGYL) tablet 500 mg 500 mg, oral, TID Given: 04/25 2149 OLANZapine (ZYPREXA) tablet 10 mg 10 mg, oral, HS Given: 04/25 2149 ondansetron (ZOFRAN) tablet 24 mg 24 mg, oral, Q20H Given: 04/25 1256 pregabalin (LYRICA) capsule 225 mg 225 mg, oral, BID Given: 04/25 175 prochlorperazine (COMPAZINE) tablet 10 mg 10 mg, oral, Q8H Given: 04/26 0618 PRN Medication Dose/Rate, Route, Frequency Last Action bisacodyl EC (DULCOLAX) tablet 5 mg 5 mg, oral, DAILY PRN Ordered heparin 10 unit/mL IV flush syringe 50 Units 50 Units, IV, PRN Given: 04/25 1412 heparin 100 unit/mL IV flush 500 Units 500 Units, IV, PRN Ordered LORazepam (ATIVAN) injection 0.5-1 mg 0.5-1 mg, IV, Q6H PRN Ordered LORazepam (ATIVAN) tablet 0.5-1 mg 0.5 mg, oral, Q6H PRN Given: 04/24 2120 oxyCODONE (immediate release) (ROXICODONE) tablet 5-15 mg 5-15 mg, oral, Q3H PRN Ordered potassium chloride IV (central line) 40 mEq 40 mEq, IV, PRN Ordered potassium chloride SR (K-DUR) tablet 40 mEq 40 mEq, oral, PRN Given: 04/25 1110 potassium phosphate IV 30 mmol 30 mmol, IV, PRN Ordered potassium phosphate IV 40 mmol 40 mmol, IV, PRN Ordered prochlorperazine (COMPAZINE) injection 10 mg 10 mg, IV, Q6H PRN Ordered sodium phosphate IV 30 mmol 30 mmol, IV, PRN Ordered sodium phosphate IV 40 mmol 40 mmol, IV, PRN Ordered PHYSICAL EXAM: Last Vitals: BP 126/73 | Pulse 50 | Temp 36.5 C (97.7 F) | RR 15 | Ht 1.727 m (5' 8") | Wt 143.4 kg (316 lb 3.2 oz) | SpO2 100% | BMI 48.08 kg/(m^2) 24 Hour Vital Min/Max: Systolic (24hrs), Av , Min:126 , Max:126 Diastolic (24hrs), Av, Min:73, Max:73 Pulse Min: 50 Max: 50 Temp Min: 36.5 C (97.7 F) Max: 36.5 C (97.7 F) Resp Min: 15 Max: 15 SpO2 Min: 100 % Max: 100 % Intake/Output Summary (Last 24 hours) at 04/26/18 0652 Last data filed at 04/26/18 06 Gross per 24 hour Intake 5600.58 ml Output 3506 ml Net 2094.58 ml General - obese adult female patient in NAD, Neurologic - AO x 3, appropriate. foot miter operator grossly intact. Skin - No bruising or rashes. HEENT - EOMI, nonicteric sclera, no drainage. Oropharynx moist, without exudates or lesio ns. Pulmonary - Clear to auscultation bilaterally. Cardiac - Regular rate and rhythm without murmur. Abdomen - normoactive bowel sounds. Soft, nontender, nondistended. Extremities - Warm, well perfused. No edema. LLE: BKA, stump surgical wound healed, no s welling, redness or discharge. Lines: PAC accessed - NT, no erythema LABS: CBC with diff last 72 hours (or 3 results) Recent Labs 04/24/18 0902 WBC 5.3 HB 11.6* HCT 34.0* PLT 173 MONOPERC 9.0 BASOPERC 1.3 EOSPERC 7.3* Chemistries: Last 72 Hours (or 3 results): Recent Labs 04/24/18 0757 04/24/18 0907 04/26/18 0630 NA -- 142 149* K -- 3.4 3.5 CL -- 102 117* BICARB -- 30* 24 BUN -- 10 8 EGFRAFRICAN -- -- >60 CR -- 0.7 0.53* GLU -- 110* 132* CA -- 9.0 8.1* MG 1.9 -- 2.0 PO4 3.9 -- 2.7 Recent Labs 04/09/18 1526 04/24/18 0907 04/26/18 0630 AST 22 23 6 ALT 24 <20 10 TBILI 0.7 0.5 0.2* AP 48 44 32* ALB 4.0 3.5 2.6* TP 7.1 6.4 5.2* UA Microscopic: WBC 5 RBC 3 ASSESSMENT/PLAN: Tati Cage is a 32 y.o. 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 P athology: synovial sarcoma, SYT FISH positive, there was extensive acute inflammation, absce ss, and necrosis with negative margins. C1 c/b neutropenic fever. C2 c/b neutropenic fever, LLE cellulitis/osteomyelitis requiring OR debridement and drain placement (drain removed pr ior to dc) on 03/24 and 03/27/18 followed by 6weeks IV Zosyn continuous infusion. [facility], saw pt on 04/09/18. He switched pt to cefepime and metronidazole as pt was having feq diarrhea with zosyn. Dr. Stephen recommends extending antibiotics until 05/15. Pt is admitting today for post op chemotherapy C3D1 Ifos/Epirubicin. 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 Dr. Patel ok with q20hrs interval. - neulasta at [place] 04/29 @ 10 am. labs and port care @ [facility]. - Chemotherapy: C3D1 04/24/18 Ifos 2500mg/m^2 x 2.6 m^2with Mesna 2200mg in NaCl 0.9% for 2hrs q20hrs x 4doses Epirubicin 30mg/m2 x x 2.6 [id number] x 4doses Mesna 2200mg for 15minutes to be given 4hrs and 8hrs after the start of each dose of Ifos famide - Supportive care: Dexamethasone 8mg daily x 4doses Ondansetron 24mg daily x 4doses Olanzapine 10mg qhs. Prochlorperazine 10mg po q8hrs Lorazepam 0.5-1mg prn q6hrs, prochloparazine 10mg IV q6hrs prn if unable to tolerate po. 1L NaCl 0.9% bolus follow by MIVF 125mL/hr. - checkdaily UA for hematuria while getting Ifos, repeat UA if RBC >/=10 hold Ifos if UA RBC remains >10. Call Urology for bladder irrigation if pt is symptomatic or having gross he maturia. - monitor closely for evidence of ifos neurotoxicity (somnolence, asterixis, confusion, etc ). Hold Ifos if pt having s/sxs of encephalopathy. # Recurrent Neutropenic fever: pt will still be on cefepime and metronidazole through 05/15. # Recent Cellulitis/Osteomyelitis of LLE Stump/BKA: Per Dr. Patel there is a risk of wound dehiscence with starting chemo, but the benefit of starting chemo outweighs the risk. Dr. Basurto saw pt in clinic 03/12, she removed a few stitches but still left some in, Dr. Basurtoc leared pt to have chemo. There was no s/sxs of infection based on physical exam during C2 ad mission, given pt was neutropenic with C1 anticipated pt will become neutropenic a few days after discharge, thus we discharged pt with prophy abx with clindamycin to also cover for MR . Pt was admitted for neutropenic fever 03/23/18, transferred to [facility] for BKA stump osteomyeli tis/cellulitis due to E.Coli, Prevotella, and E. Faecalis required Irrigation and debridemen t of left below-knee amputation amputation site, wound vac application on 03/24/18 and 8. She was initially treated empirically with vancomycin and cefepime, narrowed to piperacil yesica-tazobactam on return of susceptibilities, pt was dc with iv abx. Dr. Stephen with ID saw p t in clinic 04/09/18, he switched pt to cefazolin 2 g IV q8 hours and added metronidazole 500 mg po q8 hours to cover for Prevotella. Given pt starting chemo and will get 3 additional c ycles, after discussion with Dr. Basurto and Dr. Patel, extend antibiotics for an add itional week with new end date of 05/15. - cont with cefepime 2g Q8hrs - cont metronidazole 500mg po q8hrs. # Anemia: 2/2 cancer and chemotherapy. H/H on admit no need for transfusion. - Will monitor labs outpatient with weekly cbc w diff. # Delayed nausea:aggressive supportive care as above. As above decreased dex down to 8m g daily from 20mg, increasing olanzapine from 5 to 10mg and start compazine 10mg q8hrs due t o high dose dexamethasone exacerbate anxiety, jitteriness/restlessness. Should discharge pt with schedule dex x 4 days, olanzapine 10mg qhs and scheduled compazine 10mg q8hrs for the f irst 2 days(per pt's requesting only 2days instead of 4 days). # Heartburn: controlled with Zantac at home. - switch to famotidine 40mg daily during admission as Zantac is not on formula. # depression/Anxiety:exacerbation of anxiety due to high dose dex, reduced dex as above. Adjustments to medication as above. pt has not continue with [id number] qhs adjunct to citalopram. Pt spoke with SW in clinic. - cont with home dose Citalopram 40mg daily - cont with decreased dose of dexamethasone 8mg # Obesity: BMI 48. # stump pain/phantom pain: better control. Pt is now back down lyrica 225mg. - cont with lyrica 225mg bid - Oxycodone 5-15mg q3hrs prn # allergies: - continue loratadine 10mg daily # constipation prophy: - bisacodyl 5mg daily prn # hypokalemia: - Patient concerned about having to be admitted for hypokalemia in the past and requesting outpatient potassium supplementation - Will plan to discharge with K-dur 40 mEq daily # volume overload: - will give her 1 dose of 20mg Lasix today # Fertility: per Dr. Patel's note, patient reports infertility at baseline (tried for 8 yea rs), thus no preservation strategy indicated. Currently Mirena for endometriosis. F: PO/IVF w/ chemo E: monitor and replace prn N: regular diet Ppx: Enoxaparin/ambulate tid Dispo: Inpatient status for high risk chemotherapy, aggressive supportive care and close mo nitoring for toxicity CODE: Full ROMEO SKY MD Hem/Onc Fellow [id number] Associated attestation - Savanna Mari Md - 04/26/2018 5:37 PM PDTDate of Service: 04/26/20 18 Medical Oncology Attending Note: I personally interviewed, examined the patient, and formulated the plan with the fellow. I agree with the attached documentation. Patient reports: some increase in edema, no SOB, no mouth sores. I agree with the exam above. Significant findings include: some BLE edema, clear lungs. I agree with the fellow's assessment and stated plan of care. This includes: high dose kelli motherapy with ongoing supportive care. Savanna Mari MD Clinical cod clerk Medical Oncology and Hematology documented in this encounter Plan of Treatment +--------+ + + + + | Date | Type | Specialty | Care Team | Description | +--------+ + + + + | 03/25/ | Appointment | Radiology | Sandra Patel MD | | | 2018 | | | [address] | | | | | | [place], [place] | | | | | | [address] | | | | | | [phone] | | | | | | | | +--------+ + + + + | 03/25/ | Office | Orthopedics | Lynda Basurto, | | | 2019 | Visit | | [address] | | | | | | [address] | | | | | | [place], [place] | | | | | | [address] | | | | | | [phone] | | | | | | | | +--------+ + + + + | 03/25/ | Office | Hematology & | Sandra Patel MD | | | 2019 | Visit | Oncology | [address] | | | | | | [place], [place] | | | | | | [address] | | | | | | [phone] | | | | | | | | +--------+ + + + + + +------+--------+ + + | Name | Type | Priori | Associated Diagnoses | Order Schedule | | | | ty | | | + +------+--------+ + + | CULTURE, URINE BACTI | Lab | Routin | | As Needed for 1 | | | | e | | Occurrences starting | | | | | | 04/24/2018 | + +------+--------+ + + | UA, DIPSTICK ONLY | Lab | Routin | | As Needed for 1 | | | | e | | Occurrences starting | | | | | | 04/24/2018 | + +------+--------+ + + | URINE SCREEN FOR | Lab | Routin | | As Needed for 1 | | CULTURE | | e | | Occurrences starting | | | | | | 04/24/2018 | + +------+--------+ + + | URINE, MICROSCOPIC | Lab | Routin | | As Needed for 1 | | EXAM | | e | | Occurrences starting | | | | | | 04/24/2018 | + +------+--------+ + + documented as of this encounter Procedures + +--------+ + + + | Procedure Name | Priori | Date/Time | Associated Diagnosis | Comments | | | ty | | | | + +--------+ + + + | URINE, MICROSCOPIC | Routin | 04/27/2018 | Synovial sarcoma | Results for this | | EXAM | e | 3:10 AM | (HCC) | procedure are in the | | | | PDT | | results section. | + +--------+ + + + | URINE, MICROSCOPIC | Routin | 04/26/2018 | Synovial sarcoma | Results for this | | EXAM | e | 8:46 AM | (HCC) | procedure are in the | | | | PDT | | results section. | + +--------+ + + + | COMPLETE METABOLIC | Routin | 04/26/2018 | | Results for this | | SET | e | 6:30 AM | | procedure are in the | | (NA,K,CL,CO2,BUN,CRE | | PDT | | results section. | | AT,GLUC,CA,AST,ALT,B | | | | | | AZEEM TOTAL,ALK | | | | | | PHOS,ALB,PROT TOTAL) | | | | | + +--------+ + + + | PHOSPHORUS, PLASMA | Routin | 04/26/2018 | | Results for this | | | e | 6:30 AM | | procedure are in the | | | | PDT | | results section. | + +--------+ + + + | MAGNESIUM, PLASMA | Routin | 04/26/2018 | | Results for this | | | e | 6:30 AM | | procedure are in the | | | | PDT | | results section. | + +--------+ + + + | URINE, MICROSCOPIC | Routin | 04/25/2018 | Synovial sarcoma | Results for this | | EXAM | e | 1:12 PM | (HCC) | procedure are in the | | | | PDT | | results section. | + +--------+ + + + documented in this encounter Results URINE, MICROSCOPIC EXAM (04/27/2018 3:10 AM PDT) + +---------+ + + + [...] + + + | WHITE CELLS | 4 | 0 - 5 /hpf | [facility] [...] [facility] | [address] | [place] [address] | | | SERVICES, CORE | [address] | | | + + + + + URINE, MICROSCOPIC EXAM (04/26/2018 8:46 AM PDT) + +---------+ + + + [...] | + + + + + | [facility] | [address] | [place] [address] | | | SERVICES, CORE | [address] | | | + + + + + MAGNESIUM, PLASMA (04/26/2018 6:30 AM PDT) + +-------+ + + + | Component | Value | Ref Range | Performed | Pathologist | | | | | At | Signature | + +-------+ + + + | MAGNESIUM,P | 2.0 | 1.6 - 2.6 mg/dL | [facility] | | | LASMA | | | [...] [facility] | [address] | [place] [address] | | | SERVICES, ANTONI | [address] | | | + + + + + PHOSPHORUS, PLASMA (04/26/2018 6:30 AM PDT) + +-------+ + + + | Component | Value | Ref Range | Performed | Pathologist | | | | | At | Signature | + +-------+ + + + | PHOSPHORUS, | 2.7 | 2.4 - 4.7 mg/dL | [facility] [...] [facility] | [address] | [place] [address] | | | SERVICES, CORE | [address] | | | + + + + + COMPLETE METABOLIC SET (NA,K,CL,CO2,BUN,CREAT,GLUC,CA,AST,ALT,BILI TOTAL,ALK PHOS,ALB,PROT TOTAL) (04/26/2018 6:30 AM PDT) + + + + + + | Component | Value | Ref Range | Performed | Pathologist | | | | | At | Signature | + + + + + + | GLUCOSE, | 132 (H) | 70 - 99 mg/dL | [...] + + + + | CREATININE | 0.53 (L) | 0.60 - 1.10 | [facility] | | | PLASMA | | mg/dL | LABORATORY | | | (LAB) | | | SERVICES, | | | | | | CORE | | + + + + + + | EGFR | >60 | >60 mL/min | [facility] | | | - | | | [facility] | | | ICELANDIC | | | SERVICES, | | | | | | CORE | | + + + + + + | EGFR NON | >60 | >60 mL/min | [facility] | | | -[place] | | | LABORATORY | | | RICAN | | | SERVICES, | | | | | | CORE | | + + + + + + | SODIUM, | 149 (H) | 136 - 145 | [facility] | | | PLASMA | | mmol/L | LABORATORY | | | (LAB) | | | SERVICES, | | | | | | CORE | | + + + + + + | POTASSIUM, | 3.5 | 3.4 - 5.0 | [facility] | | | PLASMA | | mmol/L | LABORATORY | | | (LAB) | | | SERVICES, | | | | | | CORE | | + + + + + + | CHLORIDE, | 117 (H) | 97 - 108 mmol/L | [...] + + + + | CALCIUM, | 8.1 [...] + + + + | BILIRUBIN | 0.2 [...] + + + + | ALBUMIN, | 2.6 (L) | 3.5 - 4.7 g/dL | [facility] | | | PLASMA | | | LABORATORY | | | (LAB) | | | SERVICES, | | | | | | CORE | | + + + + + + | ALK PHOS | 32 (L) | 42 - 98 U/L | [facility] | | | | | | LABORATORY | | | | | | SERVICES, | | | | | | CORE | | + + + + + + | AST(SGOT) | 6 | <=41 U/L | [facility] | | | | | | LABORATORY | | | | | | SERVICES, | | | | | | CORE | | + + + + + + | ALT (SGPT) | 10 | <=60 U/L | [facility] | | [...] + + + + | ANION | 11 | 4 - 11 mmol/L | [facility] [...] [facility] | [address] | [place] [address] | | | SERVICES, ANTONI | [address] | | | + + + + + URINE, MICROSCOPIC EXAM (04/25/2018 1:12 PM PDT) + +---------+ + + + [...] | + +---------+ + + + | NON-SQUMONICA | Yaneli (A) | None /hpf | [...] | + + + + + | [facility] | [address] | [place] [address] | | | SERVICES, CORE | [address] | | | + + + + + documented in this encounter Visit Diagnoses + + | Diagnosis | + + | 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, site unspecified | + + | 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 | + + | Obesity, unspecified classification, unspecified obesity type, unspecified whether | | serious comorbidity present | + + | Osteomyelitis, unspecified site, unspecified type (HCC) | + + documented in this encounter Administered Medications + +--------+---------+------+------+------+ | Medication Order | MAR | Action | Dose | Rate | Site | | | Action | Date | | | | + +--------+---------+------+------+------+ + +---+ | bisacodyl EC (DULCOLAX) tablet | | | 5 mg 5 mg, oral, DAILY | | | NEEDED, Starting [facility] 04/24/18 at | | | 1423, Until 04/27/18 at 2132, | | | constipation | | + +---+ | | | + +---+ + +-------+ +-----+---+---+ | ceFEPIme (MAXIPIME) injection 2 | Given | 04/27/20 | 2 g | | | | g 2 g, intravenous, EVERY | | 18 2:40 | | | | | HOURS, First dose on [facility] 04/24/18 | | PM PDT | | | | | at 1445, Until Discontinued | | | | | | + +-------+ +-----+---+---+ +-------+ +-----+---+---+ | Given | 04/27/20 | 2 g | | | | | 18 5:43 | | | | | | AM PDT | | | | +-------+ +-----+---+---+ | Given | 04/26/20 | 2 g | | | | | 18 9:45 | | | | | | PM PDT | | | | +-------+ +-----+---+---+ +---+---+ | | | +---+---+ + +-------+ +-------+---+---+ | citalopram (CELEXA) tablet 40 | Given | 04/26/20 | 40 mg | | | | mg 40 mg, oral, AT BEDTIME, | | 18 9:45 | | | | | First dose on Sat04/24/18 at | | PM PDT | | | | | 2000, Until Discontinued | | | | | | + +-------+ +-------+---+---+ +-------+ +-------+---+---+ | Given | 04/25/20 | 40 mg | | | | | 18 9:49 | | | | | | PM PDT | | | | +-------+ +-------+---+---+ | Given | 04/24/20 | 40 mg | | | | | 18 8:10 | | | | | | PM PDT | | | | +-------+ +-------+---+---+ +---+---+ | | | +---+---+ + +-------+ +------+---+---+ | dexamethasone (DECADRON) tablet | Given | 04/27/20 | 8 mg | | | | 8 mg 8 mg, oral, EVERY 20 | | 18 5:43 | | | | | HOURS, 4 doses, First dose on Bettie | | AM PDT | | | | | 04/24/18 at 1600, Last dose on | | | | | | | 04/27/18 at 0500 | | | | | | + +-------+ +------+---+---+ +-------+ +------+---+---+ | Given | 04/26/20 | 8 mg | | | | | 18 9:30 | | | | | | AM PDT | | | | +-------+ +------+---+---+ | Given | 04/25/20 | 8 mg | | | | | 18 12:56 | | | | | | PM PDT | | | | +-------+ +------+---+---+ +---+---+ | | | +---+---+ + +-------+ +-------+---+---------+ | enoxaparin (LOVENOX) injection | Given | 04/26/20 | 40 mg | | Abdomen | | 40 mg 40 mg, subcutaneous, EVERY | | 18 9:45 | | | | | EVENING, First dose on Bettie | | PM PDT | | | | | 04/24/18 at 2100, Until | | | | | | | Discontinued | | | | | | + +-------+ +-------+---+---------+ +-------+ +-------+---+---------+ | Given | 04/25/20 | 40 mg | | Abdomen | | | 18 9:50 | | | | | | PM PDT | | | | +-------+ +-------+---+---------+ | Given | 04/24/20 | 40 mg | | Abdomen | | | 18 9:19 | | | | | | PM PDT | | | | +-------+ +-------+---+---------+ +---+---+ | | | +---+---+ + +---------+ +-------+---+---+ | epiRUBICIN injection 80 mg 80 | New Bag | 04/27/20 | 80 mg | | | | mg (rounded from 78 mg = 30 mg/m2 | | 18 6:46 | | | | | | | AM PDT | | | | | 2.6 m2 Treatment plan recorded | | | | | | | BSA), intravenous, EVERY 20 | | | | | | | HOURS, 4 doses, First dose on Bettie | | | | | | | 04/24/18 at 1700, Last dose on | | | | | | | 04/27/18 at 0600 | | | | | | + +---------+ +-------+---+---+ +---------+ +-------+---+---+ | New Bag | 04/26/20 | 80 mg | | | | | 18 10:40 | | | | | | AM PDT | | | | +---------+ +-------+---+---+ | New Bag | 04/25/20 | 80 mg | | | | | 18 1:54 | | | | | | PM PDT | | | | +---------+ +-------+---+---+ +---+---+ | | | +---+---+ + +-------+ +-------+---+---+ | famotidine (PEPCID) tablet 20 | Given | 04/27/20 | 20 mg | | | | mg 20 mg, oral, TWICE DAILY, | | 18 9:19 | | | | | First dose on Bettie 04/24/18 at | | AM PDT | | | | | 1430, Until Discontinued | | | | | | + +-------+ +-------+---+---+ +-------+ +-------+---+---+ | Given | 04/26/20 | 20 mg | | | | | 18 9:45 | | | | | | PM PDT | | | | +-------+ +-------+---+---+ | Given | 04/26/20 | 20 mg | | | | | 18 9:31 | | | | | | AM PDT | | | | +-------+ +-------+---+---+ +---+---+ | | | +---+---+ + +-------+ +-------+---+---+ | furosemide (LASIX) injection 20 | Given | 04/26/20 | 20 mg | | | | mg 20 mg, intravenous, ONCE, 1 | | 18 12:03 | | | | | dose, 04/26/18 at 1030 | | PM PDT | | | | + +-------+ +-------+---+---+ +---+---+ | | | +---+---+ + +-------+ + +---+---+ | heparin 10 unit/mL IV flush | Given | 04/27/20 | 50 Units | | | | syringe 50 Units 50 Units, | | 18 3:00 | | | | | intravenous, NEEDED, Starting | | PM PDT | | | | | 04/25/18 at 0009, Until Sun | | | | | | | 04/27/18 at 2132, line patency | | | | | | + +-------+ + +---+---+ +-------+ + +---+---+ | Given | 04/27/20 | 50 Units | | | | | 18 2:50 | | | | | | PM PDT | | | | +-------+ + +---+---+ | Given | 04/26/20 | 50 Units | | | | | 18 2:33 | | | | | | PM PDT | | | | +-------+ + +---+---+ + +---+ | | | + +---+ | heparin 100 unit/mL IV flush | | | 500 Units 500 Units, | | | intravenous, NEEDED, Starting | | | 04/25/18 at 0009, Until Sun | | | 04/27/18 at 2132, deaccessing | | | line/port | | + +---+ | | | + +---+ + +---------+ + +-------+---+ | ifosfamide (IFEX) 2,500 mg/m2 = | New Bag | 04/27/20 | 6,500 mg | 250 | | | 6,500 mg, mesna (MESNEX) 2,200 | | 18 6:47 | | mL/hr | | | mg [...] | | | doses, First dose on Bettie 04/24/18 | | | | | | | at 1700, Last dose on 04/27/18 | | | | | | | at 0600, Per TE Committee | | | | | | | authorization, dose | | | | | | | standardization has been approved | | | | | | | for this order. Mesna dose | | | | | | | changed from 2210mg (= | | | | | | | 850mg/m2/dose) to 2200 mg. HIGH | | | | | | | ALERT MEDICATION-CHEMOTHERAPY | | | | | | | Irritant. Refrigerate., | | | | | | + +---------+ + +-------+---+ +---------+ + +-------+---+ | New Bag | 04/26/20 | 6,500 mg | 250 | | | | 18 10:45 | | mL/hr | | | | AM PDT | | | | +---------+ + +-------+---+ | New Bag | 04/25/20 | 6,500 mg | 250 | | | | 18 2:10 | | mL/hr | | | | PM PDT | | | | +---------+ + +-------+---+ +---+---+ | | | +---+---+ + +-------+ +-------+---+---+ | loratadine (CLARITIN) tablet 10 | Given | 04/27/20 | 10 mg | | | | mg 10 mg, oral, DAILY, First | | 18 9:19 | | | | | dose on Sat04/25/18 at 0900, | | AM PDT | | | | | Until Discontinued | | | | | | + +-------+ +-------+---+---+ +-------+ +-------+---+---+ | Given | 04/26/20 | 10 mg | | | | | 18 9:31 | | | | | | AM PDT | | | | +-------+ +-------+---+---+ | Given | 04/25/20 | 10 mg | | | | | 18 9:31 | | | | | | AM PDT | | | | +-------+ +-------+---+---+ + +---+ | | | + +---+ | LORazepam (ATIVAN) injection | | | 0.5-1 mg 0.5-1 mg, intravenous, | | | EVERY 6 HOURS NEEDED, Starting | | | Bettie 04/24/18 at 1456, Until Sun | | | 04/27/18 at 2132, n/v, if unable | | | to take oral form of medication | | + +---+ | | | + +---+ + +-------+ +--------+---+---+ | LORazepam (ATIVAN) tablet 0.5-1 | Given | 04/24/20 | 0.5 mg | | | | mg 0.5-1 mg, oral, EVERY 6 | | 18 9:20 | | | | | HOURS NEEDED, Starting Bettie | | PM PDT | | | | | 04/24/18 at 1932, Until Sun | | | | | | | 04/27/18 at 213, anxiety, | | | | | | | insomnia, nausea/vomiting, first | | | | | | | line | | | | | | + +-------+ +--------+---+---+ +---+---+ | | | +---+---+ + +---------+ + +-------+---+ | mesna (MESNEX) 2,200 mg in NaCl | New Bag | 04/27/20 | 2,200 mg | 488 | | | 0.9 % (NS) IV 2,200 mg (rounded | | 18 10:46 | | mL/hr | | | from [...] | | | | | | | 04/24/18 at 2100, Last dose on Sun | | | | | | | 04/27/18 at 1000, Administer 4 | | | | | | | hours after the start of | | | | | | | Ifosfamide, | | | | | | + +---------+ + +-------+---+ +---------+ + +-------+---+ | New Bag | 04/26/20 | 2,200 mg | 488 | | | | 18 2:48 | | mL/hr | | | | PM PDT | | | | +---------+ + +-------+---+ | New Bag | 04/25/20 | 2,200 mg | 488 | | | | 18 5:52 | | mL/hr | | | | PM PDT | | | | +---------+ + +-------+---+ +---+---+ | | | +---+---+ + +---------+ + +-------+---+ | mesna (MESNEX) 2,200 mg in NaCl | New Bag | 04/27/20 | 2,200 mg | 488 | | | 0.9 % (NS) IV 2,200 mg (rounded | | 18 2:43 | | mL/hr | | | from [...] | | | | | | | 04/25/18 at 0100, Last dose on Sat | | | | | | | 04/27/18 at 1400, Administer 8 | | | | | | | hours after the start of | | | | | | | Ifosfamide, | | | | | | + +---------+ + +-------+---+ +---------+ + +-------+---+ | New Bag | 04/26/20 | 2,200 mg | 488 | | | | 18 6:39 | | mL/hr | | | | PM PDT | | | | +---------+ + +-------+---+ | New Bag | 04/25/20 | 2,200 mg | 488 | | | | 18 9:50 | | mL/hr | | | | PM PDT | | | | +---------+ + +-------+---+ +---+---+ | | | +---+---+ + +-------+ +--------+---+---+ | metroNIDAZOLE (FLAGYL) tablet | Given | 04/27/20 | 500 mg | | | | 500 mg 500 mg, oral, THREE TIMES | | 18 2:50 | | | | | DAILY, First dose on [facility] 04/24/18 | | PM PDT | | | | | at 1600, Until Discontinued | | | | | | + +-------+ +--------+---+---+ +-------+ +--------+---+---+ | Given | 04/27/20 | 500 mg | | | | | 18 9:19 | | | | | | AM PDT | | | | +-------+ +--------+---+---+ | Given | 04/26/20 | 500 mg | | | | | 18 9:45 | | | | | | PM PDT | | | | +-------+ +--------+---+---+ +---+---+ | | | +---+---+ + +-------+ +-------+---+---+ | OLANZapine (ZYPREXA) tablet 10 | Given | 04/26/20 | 10 mg | | | | mg 10 mg, oral, AT BEDTIME, | | 18 9:45 | | | | | First dose on Bettie 04/24/18 at | | PM PDT | | | | | 2200, Until Discontinued | | | | | | + +-------+ +-------+---+---+ +-------+ +-------+---+---+ | Given | 04/25/20 | 10 mg | | | | | 18 9:49 | | | | | | PM PDT | | | | +-------+ +-------+---+---+ | Given | 04/24/20 | 10 mg | | | | | 18 10:25 | | | | | | PM PDT | | | | +-------+ +-------+---+---+ +---+---+ | | | +---+---+ + +-------+ +-------+---+---+ | ondansetron (ZOFRAN) tablet 24 | Given | 04/27/20 | 24 mg | | | | mg 24 mg, oral, EVERY 20 HOURS, | | 18 5:43 | | | | | 4 doses, First dose on Bettie | | AM PDT | | | | | 04/24/18 at 1600, Last dose on Sun | | | | | | | 04/27/18 at 0500 | | | | | | + +-------+ +-------+---+---+ +-------+ +-------+---+---+ | Given | 04/26/20 | 24 mg | | | | | 18 9:31 | | | | | | AM PDT | | | | +-------+ +-------+---+---+ | Given | 04/25/20 | 24 mg | | | | | 18 12:56 | | | | | | PM PDT | | | | +-------+ +-------+---+---+ + +---+ | | | + +---+ | potassium chloride IV (central | | | line) 40 mEq 40 mEq, | | | intravenous, NEEDED, Starting | | | Bettie 04/24/18 at 1443, Until Sun | | | 04/27/18 at 2132, potassium level | | | less than or equal to 2.9 mmol/L | | + +---+ | | | + +---+ + +-------+ +--------+---+---+ | potassium chloride SR (K-DUR) | Given | 04/25/20 | 40 mEq | | | | tablet 40 mEq 40 mEq, oral, | | 18 11:10 | | | | | NEEDED, Starting [facility] 04/24/18 at | | AM PDT | | | | | 1401, Until 04/27/18 at 2132, | | | | | | | potassium level 3-3.4 mmol/L | | | | | | + +-------+ +--------+---+---+ + +---+ | | | + +---+ | potassium phosphate IV 30 mmol | | | 30 mmol, intravenous, NEEDED, | | | Starting [facility] 04/24/18 at 1401, | | | Until 04/27/18 at 2132, | | | Potassium less than or equal to | | | 3.4 mmol/L AND Phosphate less | | | than or equal to 2 mg/dL. | | + +---+ | | | + +---+ | potassium phosphate IV 40 mmol | | | 40 mmol, intravenous, NEEDED, | | | Starting [facility] 04/24/18 at 1401, | | | Until [place] 04/27/18 at 2132, | | | Potassium less than or equal to | | | 2.9 mmol/L AND Phosphate less | | | than or equal to 1.5 mg/dL. | | + +---+ | | | + +---+ + +-------+ +--------+---+---+ | pregabalin (LYRICA) capsule 225 | Given | 04/27/20 | 225 mg | | | | mg 225 mg, oral, TWICE DAILY, | | 18 9:18 | | | | | First dose on [facility] 04/24/18 at | | AM PDT | | | | | 1945, Until Discontinued | | | | | | + +-------+ +--------+---+---+ +-------+ +--------+---+---+ | Given | 04/26/20 | 225 mg | | | | | 18 5:40 | | | | | | PM PDT | | | | +-------+ +--------+---+---+ | Given | 04/26/20 | 225 mg | | | | | 18 9:30 | | | | | | AM PDT | | | | +-------+ +--------+---+---+ + +---+ | | | + +---+ | prochlorperazine (COMPAZINE) | | | injection 10 mg 10 mg, | | | intravenous, EVERY 6 HOURS | | | NEEDED, Starting [facility] 04/24/18 at | | | 1456, Until [place] 04/27/18 at 2132, | | | n/v, if unable to take oral form | | | of medication | | + +---+ | | | + +---+ + +-------+ +-------+---+---+ | prochlorperazine (COMPAZINE) | Given | 04/27/20 | 10 mg | | | | tablet 10 mg 10 mg, oral, EVERY | | 18 2:40 | | | | | 8 HOURS, First dose on Bettie | | PM PDT | | | | | 04/24/18 at 1600, Until | | | | | | | Discontinued | | | | | | + +-------+ +-------+---+---+ +-------+ +-------+---+---+ | Given | 04/27/20 | 10 mg | | | | | 18 5:43 | | | | | | AM PDT | | | | +-------+ +-------+---+---+ | Given | 04/26/20 | 10 mg | | | | | 18 9:45 | | | | | | PM PDT | | | | +-------+ +-------+---+---+ +---+---+ | | | +---+---+ + +---------+ + +---+---+ | sodium chloride 0.9 % (NS) IV | New Bag | 04/24/20 | 1,000 mL | | | | infusion 1,000 mL, intravenous, | | 18 3:30 | | | | | ONCE, 1 dose, Bettie 04/24/18 at 1415 | | PM PDT | | | | + +---------+ + +---+---+ +---+---+ | | | +---+---+ + +---------+ +-------+-------+---+ | sodium chloride 0.9 % (NS) IV | New Bag | 04/27/20 | 125 | 125 | | | infusion 125 mL/hr, intravenous, | | 18 10:00 | mL/hr | mL/hr | | | CONTINUOUS, Starting [facility] 04/24/18 | | AM PDT | | | | | at 1500, Until 04/27/18 at | | | | | | | 2132 | | | | | | + +---------+ +-------+-------+---+ +---------+ +-------+-------+---+ | New Bag | 04/26/20 | 125 | 125 | | | | 18 11:53 | mL/hr | mL/hr | | | | AM PDT | | | | +---------+ +-------+-------+---+ | New Bag | 04/25/20 | 125 | 125 | | | | 18 2:12 | mL/hr | mL/hr | | | | PM PDT | | | | +---------+ +-------+-------+---+ + +---+ | | | + +---+ | sodium phosphate IV 30 mmol 30 | | | mmol, intravenous, NEEDED, | | | Starting [facility] 04/24/18 at 1401, | | | Until 04/27/18 at 2132, | | | Administer for sodium level less | | | than 148 mmol/L and phosphate | | | level 1.6-2 mg/dL. | | + +---+ | | | + +---+ | sodium phosphate IV 40 mmol 40 | | | mmol, intravenous, NEEDED, | | | Starting [facility] 04/24/18 at 1401, | | | Until 04/27/18 at 2132, | | | Administer for sodium level less | | | than 148 mmol/L and phosphate | | | level less than or equal to 1.5 | | | mg/dL. | | + +---+ | | | + +---+ documented in this encounter
--- OUTSIDE RECORDS SUMMARY | ~2019-01-30 | XMS | Encounter Summary ---
Demographics + + + | Address | [address] | | | [place] [address] | + + + | Home Phone [...] | + + +---------+ + | Kika Caeg | ECON | Unknown | | + + +---------+ + Care Team Providers + +------+ + | Care Crna Name | Role | Phone | + [...] | | 2018 | | [facility] | | | | | | [facility] | | | | | | [address] | | | | | | Mailcode: [facility] | | | | | | for Health and | | | | | | [facility] | | | | | | [place], [place] | | | | | | [address] | | | | | | [phone] | | | +--------+ + + + [...] [address] | | | | | | [place], [place] | | | | | | [address] | | | | | | [phone] | | | | | | | | +--------+ + + + + | 03/25/ | Office | Orthopedics | Paul Basurtoen, | | | 2018 | Visit | | [address] | | | | | | [address] | | | | | | [place], [place] | | | | | | [address] | | | | | | [phone] | | | | | | | | +--------+ + + + + | 03/25/ | Office | Hematology & | Sandra Patel MD | | | 2018 | Visit | Oncology | [address] | | | | | | [place], [place] | | | | | | [address] | | | | | | [phone] | | | | | | | | +--------+ + + + + documented as of this encounter Visit Diagnoses Not on filedocumented in this encounter"
--- OUTSIDE RECORDS SUMMARY | ~2019-01-30 | XMS | Encounter Summary ---
Demographics + + + | Address | [address] | | | [place] [address] | + + + | Home Phone [...] Team Providers + +------+ + | Care Identity Access Management Architect Name | Role | Phone | [...] | Specialist | | | | [id number] | [address] | | | | | Ave Mailcode: | [place], [place] | | | | | [facility] | [address] | | | | | and [place], | [phone] | | | | | [address] | | | | | | [place], [place] | | | | | | [address] | | | | | | [phone] | | | +--------+ + + + [...] [address] | | | | | | [place], [place] | | | | | | [address] | | | | | | [phone] | | | | | | | | +--------+ + + + + | 03/25/ | Office | Orthopedics | Sb GallegosShirley, | | | 2018 | Visit | | [address] | | | | | | [address] | | | | | | [place], [place] | | | | | | [address] | | | | | | [phone] | | | | | | | | +--------+ + + + + | 03/25/ | Office | Hematology & | Sandra Patel MD | | | 2018 | Visit | Oncology | [address] | | | | | | [place], [place] | | | | | | [address] | | | | | | [phone] | | | | | | | | +--------+ + + + + documented as of this encounter Visit Diagnoses Not on filedocumented in this encounter"
--- OUTSIDE RECORDS SUMMARY | ~2019-01-30 | XMS | Encounter Summary ---
Demographics + + + | Address | [address] | | | [place] [address] | + + + | Home Phone [...] Team Providers + +------+ + | Care [employer] Forming Machine Operator Name | Role | Phone | + +------+ + | Santo Gooden MD | PCP | | + +------+ + Encounter Details +--------+ + + + + | Date | Type | Department | Care Team | Description | +--------+ + + + + | 04/23/ | Documentati | Infectious | Angely Stephen, | | | 2018 | on | [facility] at [facility] | [address] | | | | | Floor [address] | [facility] | | | | | [facility] | [place], [place] | | | | | Mailcode: [id number] | [address] | | | | | Physicians [facility] | [phone] | | | | | [place], [place] | | | | | | [address] | | | | | | [phone] | | | +--------+ + + + [...] | | | 2018 | | | [address] | | | | | | [place], [place] | | | | | | [address] | | | | | | [phone] | | | | | | | | +--------+ + + + + | 03/25/ | Office | Orthopedics | Lynda Basurto, | | | 2019 | Visit | | [address] | | | | | | [address] | | | | | | [place], [place] | | | | | | [address] | | | | | | [phone] | | | | | | | | +--------+ + + + + | 03/25/ | Office | Hematology & | Sandra Patel MD | | | 2019 | Visit | Oncology | [address] | | | | | | [place] | | | | | | [address] | | | | | | [phone] | | | | | | | | +--------+ + + + + documented as of this encounter Visit Diagnoses Not on filedocumented in this encounter"
--- OUTSIDE RECORDS SUMMARY | ~2019-01-30 | XMS | Encounter Summary ---
Demographics + + + | Address | [address] | | | [place] [address] | + + + | Home Phone [...] Team Providers + +------+ + | Care Baker Biscuit Name | Role | Phone | + +------+ + | Santo Gooden MD | PCP | | + +------+ + Encounter Details +--------+------+ + + + | Date | Type | Department | Care Team | Description | +--------+------+ + + + | 01/23/ | Lab | Laboratory at [facility] | | Synovial sarcoma | | 2018 | | [address] | | ([facility]) | | | | [place], [place] | | | | | | [address] | | | | | | [phone] | | | +--------+------+ + + + [...] [place] | | | | | | [address] | | | | | | [phone] | | | | | | | | +--------+ + + + + | 03/25/ | Office | Orthopedics | Lynda Basurto, | | | 2018 | Visit | | [address] | | | | | | [address] | | | | | | [place], [place] | | | | | | [address] | | | | | | [phone] | | | | | | | | +--------+ + + + + | 03/25/ | Office | Hematology & | Sandra Patel MD | | | 2018 | Visit | Oncology | [address] | | | | | | [place], [place] | | | | | | [address] | | | | | | [phone] | | | | | | | | +--------+ + + + + documented as of this encounter Procedures + +--------+ + + + | Procedure Name | Priori | Date/Time | Associated Diagnosis | Comments | | | ty | | | | + +--------+ + + + | CBC AND AUTO DIFF | Routin | 01/23/2018 | Synovial sarcoma | Results for this | | | e | 2:48 PM | (HCC) | procedure are in the | | | | PDT | | results section. | + +--------+ + + + | [facility] - COMPLETE | Routin | 01/23/2018 | Synovial sarcoma | Results for this | | METABOLIC SET | e | 2:48 PM | (HCC) | procedure are in the | | | | PDT | | results section. | + +--------+ + + + | [facility] CBC W | Routin | 01/23/2018 | Synovial sarcoma | Results for this | | DIFFERENTIAL | e | 2:48 PM | (HCC) | procedure are in the | | | | PDT | | results section. | + +--------+ + + + | INR | Routin | 01/23/2018 | Synovial sarcoma | Results for this | | | e | 2:48 PM | (HCC) | procedure are in the | | | | PDT | | results section. | + +--------+ + + + documented in this encounter Results CBC AND AUTO DIFF (01/23/2018 2:48 PM PDT) + + + + + + | Component | Value | Ref Range | Performed | Pathologist | | | | | At | Signature | + + + + + + | WHITE CELL | 10.91 (H) | 3.50 - 10.80 | [facility] | | | COUNT | | K/cu mm | LABORATORY | | | | | | SERVICES, | | | | | | [facility] | | | | | | [facility] | | + + + + + + | RED CELL | 4.93 | 4.00 - 5.20 | [facility] | | | COUNT | | M/cu mm | LABORATORY | | | | | | SERVICES, | | | | | | [facility] + | | | | | | [facility] | | + + + + + + | HEMOGLOBIN | 14.9 | 12.0 - 16.0 | [facility] | | | | | g/dL | LABORATORY | | | | | | SERVICES, | | | | | | [facility] + | | | | | | [facility]AL[facility] | | + + + + + + | HEMATOCRIT | 43.3 | 36.0 - 46.0 % | [facility] | | | | | | LABORATORY | | | | | | SERVICES, | | | | | | [facility] + | | | | | | [facility]AL[facility] | | + + + + + + | MCV | 87.8 | 80.0 - 100.0 fL | [facility] | | | | | | LABORATORY | | | | | | SERVICES, | | | | | | [facility] + | | | | | | [facility] | | + + + + + + | MCHC | 34.4 | 32.0 - 36.0 | [facility] | | | | | g/dL | LABORATORY | | | | | | SERVICES, | | | | | | [facility] + | | | | | | [facility]ALING | | + + + + + + | RDW SD | 39.8 | 35.1 - 46.3 fL | [facility] | | | | | | LABORATORY | | | | | | SERVICES, | | | | | | [facility] + | | | | | | [facility]AL[facility] | | + + + + + + | PLATELET | 364 | 150 - 400 K/cu | [facility] | | | COUNT | | mm | LABORATORY | | | | | | SERVICES, | | | | | | [facility] + | | | | | | [facility] | | + + + + + + | MPV | 10.2 | 9.7 - 12.3 fL | [facility] | | | | | | LABORATORY | | | | | | SERVICES, | | | | | | [facility] + | | | | | | [facility]ALING | | + + + + + + | NEUTROPHIL | 56.1 | 50.0 - 70.0 % | [facility] | | | % | | | LABORATORY | | | | | | SERVICES, | | | | | | [facility] + | | | | | | [facility]ALING | | + + + + + + | LYMPHOCYTE | 32.3 | 18.0 - 42.0 % | [facility] | | | % | | | LABORATORY | | | | | | SERVICES, | | | | | | [facility] + | | | | | | [facility]ALING | | + + + + + + | MONOCYTE % | 7.3 | 3.5 - 9.0 % | [facility] | | | | | | LABORATORY | | | | | | SERVICES, | | | | | | [facility] + | | | | | | [facility]ALING | | + + + + + + | EOS % | 3.8 (H) | 1.0 - 3.0 % | [facility] | | | | | | LABORATORY | | | | | | SERVICES, | | | | | | [facility] + | | | | | | [facility]ALING | | + + + + + + | BASO % | 0.5 | 0.0 - 2.0 % | [facility] | | | | | | LABORATORY | | | | | | SERVICES, | | | | | | [facility] | [facility] + | | | | | | HEALING | | + + + + + + | NEUTROPHIL | 6.13 | 1.80 - 7.70 | [facility] | | | # | | K/cu mm | LABORATORY | | | | | | SERVICES, | | | | | | [facility] | [facility] + | | | | | | HEALING | | + + + + + + | LYMPHOCYTE | 3.52 | 1.00 - 4.80 | [facility] | | | # | | K/cu mm | LABORATORY | | | | | | SERVICES, | | | | | | [facility] + | | | | | | [facility]ALING | | + + + + + + | MONOCYTE # | 0.80 | 0.10 - 0.90 | [facility] | | | | | K/cu mm | LABORATORY | | | | | | SERVICES, | | | | | | [facility] | [facility] + | | | | | | HEALING | | + + + + + + | EOS # | 0.41 | 0.00 - 0.50 | [facility] | | | | | K/cu mm | LABORATORY | | | | | | SERVICES, | | | | | | [facility] | [facility] + | | | | | | HEALING | | + + + + + + | BASO # | 0.05 | 0.00 - 0.10 | [facility] | | | | | K/cu mm | LABORATORY | | | | | | SERVICES, | | | | | | [facility] | [facility] + | | | | | | HEALING | | + + + + + + + + | Specimen | + + | Blood | + + + + + + + | Performing | Address | City/State/Zipcode | Phone Number | | Organization | | | | + + + + + | [facility] | [address] | [place] [address] | | | SERVICES, [place] [facility] | | | | | HEALTH + HEALING | | | | + + + + + INR (01/23/2018 2:48 PM PDT) + +-------+ [...] | + + + + + | [facility] | [address] | [place] [address] | | | SERVICES, CORE | [address] | | | + + + + + CH - COMPLETE METABOLIC SET (01/23/2018 2:48 PM [...] + + + | [facility] | [address] | [place] [address] | | | SERVICES, [facility] | | | | | [facility] + HEALING | | | | + + + + + documented in this encounter Visit Diagnoses + + | Diagnosis | + + | 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
--- OUTSIDE RECORDS SUMMARY | ~2019-01-30 | XMS | Encounter Summary ---
Demographics + + + | Address | [address] | | | [place] [address] | + + + | Home Phone [...] Team Providers + +------+ + | Care City Secretary Name | Role | Phone | + [...] | | 2018 | | [facility] at [facility] | [address] | | | | | for Health & Healing | [place], [place] | | | | | [address] | [address] | | | | | Mailcode: [place] | [phone] | | | | | for Health and | | | | | | Healing, [address] | | | | | | [facility] [place] | | | | | | [address] | | | | | | [phone] | | | +--------+ + + + [...] | | | 2018 | | | [address] | | | | | | [place], [place] | | | | | | [address] | | | | | | [phone] | | | | | | | | +--------+ + + + + | 03/25/ | Office | Orthopedics | Rosy BasurtoAlexander, | | | 2018 | Visit | | [address] | | | | | | [address] | | | | | | [place], [place] | | | | | | [address] | | | | | | [phone] | | | | | | | | +--------+ + + + + | 03/25/ | Office | Hematology & | Sandra Patel MD | | | 2018 | Visit | Oncology | [address] | | | | | | [place], [place] | | | | | | [address] | | | | | | [phone] | | | | | | | | +--------+ + + + + documented as of this encounter Visit Diagnoses Not on filedocumented in this encounter"
--- OUTSIDE RECORDS SUMMARY | ~2019-01-30 | XMS | Encounter Summary ---
Demographics + + + | Address | [address] | | | [place] [address] | + + + | Home Phone [...] Team Providers + +------+ + | Care Rib Builder Name | Role | Phone | [...] site | | 2018 | Encounter | [facility] [address] | [address] [facility] | [address] | | | | Ave Mailcode: CH12A | [facility] | | | | | [facility] | [place], [place] | | | | | and | [address] | | | | | Floor [place], [place] | [phone] | | | | | [address] | | | | | | [phone] | | | +--------+ + + + [...] | | | 2018 | | | [address] | | | | | | [place], [place] | | | | | | [address] | | | | | | [phone] | | | | | | | | +--------+ + + + + | 03/25/ | Office | Orthopedics | Lynda Basurto, | | | 2018 | Visit | | [address] | | | | | | [address] | | | | | | [place], [place] | | | | | | [address] | | | | | | [phone] | | | | | | | | +--------+ + + + + | 03/25/ | Office | Hematology & | Sandra Patel MD | | | 2019 | Visit | Oncology | [address] | | | | | | [place], [place] | | | | | | [address] | | | | | | [phone] | | | | | | | | +--------+ + + + + documented as of this encounter Visit Diagnoses Not on filedocumented in this encounter"
--- OUTSIDE RECORDS SUMMARY | ~2019-01-30 | XMS | Encounter Summary ---
Demographics + + + | Address | [address] | | | [place] [address] | + + + | Home Phone [...] Providers + +------+ + | Care Director Client Services Name | Role | Phone | + [...] | | for Health & Healing | [place], [place] | | | | | [address] | [address] | | | | | Mailcode: CH7N | [phone] | | | | | [facility] | | | | | | and [facility], | | | | | | Floor [place], [place] | | | | | | [address] | | | | | | [phone] | | | +--------+---------+ + + + [...] Name: Tati Cage : 1985 Home Town: [place], [place] Referring Physician: Sb Diagnosis: high risk [...] hours. Indications: os teomyelitis Miscellaneous [facility], Bedside commode for nighttime use following foot [...] perfused. No edema. Neurologic - Awake, alert. filling mixer grossly intact. Affect/Psych - Appropriate. ECOG - [...] to 3 cycles total Sandra Patel MD [place] Pediatric Hematology/Oncology [facility] [place] [facility] documented in this encounter Plan of Treatment +--------+ + + + + | Date | Type | Specialty | Care Team | Description | +--------+ + + + + | 03/25/ | Appointment | Radiology | Sandra Patel MD | | | 2018 | | | [address] | | | | | | [place], [place] | | | | | | [address] | | | | | | [phone] | | | | | | | | +--------+ + + + + | 03/25/ | Office | Orthopedics | Lynda ulloa, | | | 2018 | Visit | | [address] | | | | | | [address] | | | | | | [place], [place] | | | | | | [address] | | | | | | [phone] | | | | | | | | +--------+ + + + + | 03/25/ | Office | Hematology & | Sandra Patel MD | | | 2018 | Visit | Oncology | [address] | | | | | | [place], [place] | | | | | | [address] | | | | | | [phone] | | | | | | | [...]
--- OUTSIDE RECORDS SUMMARY | ~2019-01-30 | XMS | Encounter Summary ---
Demographics + + + | Address | [address] | | | [place] [address] | + + + | Home Phone [...] Team Providers + +------+ + | Care Supplier Manager Name | Role | Phone | [...] | | 2018 | | [facility] at [facility] | | | | | | for Health & Healing | | | | | | [address] | | | | | | Mailcode: [facility] | | | | | | for Health and | | | | | | [facility], [facility] [address] | | | | | | [place], [place] | | | | | | [address] | | | | | | [phone] | | | +--------+ + + + [...] [address] | | | | | | [place], [place] | | | | | | [address] | | | | | | [phone] | | | | | | | | +--------+ + + + + | 03/25/ | Office | Orthopedics | Paul Basurtoen, | | | 2018 | Visit | | [address] | | | | | | [address] | | | | | | [place], [place] | | | | | | [address] | | | | | | [phone] | | | | | | | | +--------+ + + + + | 03/25/ | Office | Hematology & | Sandra Patel MD | | | 2018 | Visit | Oncology | [address] | | | | | | [place], [place] | | | | | | [address] | | | | | | [phone] | | | | | | | | +--------+ + + + + documented as of this encounter Visit Diagnoses Not on filedocumented in this encounter"
--- OUTSIDE RECORDS SUMMARY | ~2019-01-30 | XMS | Encounter Summary ---
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 | | | | and Healing, | [phone] | ([facility]) | | | | Building [address] | | | | | | [place], [place] | | | | | | [address] | | | | | | [phone] | | | +--------+---------+ + + + [...] [place] | | | | | | [address] | | | | | | [phone] | | | | | | | | +--------+ + + + + | 03/25/ | Office | Orthopedics | Lynda Basurto, | | | 2018 | Visit | | [address] | | | | | | [address] | | | | | | [place], [place] | | | | | | [address] | | | | | | [phone] | | | | | | | | +--------+ + + + + | 03/25/ | Office | Hematology & | Sandra Patel MD | | | 2018 | Visit | Oncology | [address] | | | | | | [place], [place] | | | | | | [address] | | | | | | [phone] | | | | | | | [...]
--- OUTSIDE RECORDS SUMMARY | ~2019-01-30 | XMS | Encounter Summary ---
Demographics + + + | Address | [address] | | | [place] [address] | + + + | Home Phone [...] Team Providers + +------+ + | Care Reducing Machine Operator Name | Role | Phone [...] + + | 03/12/ | Office | [facility] Orthopaedics | Lynda ulloa, | 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 | & Rehabilitation at | [address] | ([facility]) (Primary Dx) | | | | [facility] [address] | [address] | | | | | [place] Mailcode: | [place], [place] | | | | | [facility] | [address] | | | | | and Healing, | [phone] | | | | | [address] | | | | | | [place], [place] | | | | | | [address] | | | | | | [phone] | | | +--------+---------+ + + + [...] I'm happy to take at the remaining stitches. documented in this encounter Plan of Treatment +--------+ + + + + | Date | Type | Specialty | Care Team | Description | +--------+ + + + + | 03/25/ | Appointment | Radiology | Sandra Patel MD | | | 2019 | | | [address] | | | | | | [facility] [place] | | | | | | [address] | | | | | | [phone] | | | | | | | | +--------+ + + + + | 03/25/ | Office | Orthopedics | Lynda Basurto, | | | 2018 | Visit | | [address] | | | | | | [address] | | | | | | [place], [place] | | | | | | [address] | | | | | | [phone] | | | | | | | | +--------+ + + + + | 03/25/ | Office | Hematology & | Sandra Patel MD | | | 2018 | Visit | Oncology | [address] | | | | | | [place], [place] | | | | | | [address] | | | | | | [phone] | | | | | | | | +--------+ + + + + documented as of this encounter Visit Diagnoses + + | Diagnosis | + + | 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
--- OUTSIDE RECORDS SUMMARY | ~2019-01-30 | XMS | Encounter Summary ---
Demographics + + + | Address | [address] | | | [place] [address] | + + + | Home Phone [...] Team Providers + +------+ + | Care Painter And Body Work Name | Role | Phone | + [...] | | 2018 | | [facility] at [place] | [address] | | | | | for Health & Healing | [place], [place] | | | | | [address] | [address] | | | | | Mailcode: [place] | [phone] | | | | | for Health and | | | | | | Healing, [address] | | | | | | [facility] [place] | | | | | | [address] | | | | | | [phone] | | | +--------+ + + + [...] | | | 2018 | | | [address] | | | | | | [place], [place] | | | | | | [address] | | | | | | [phone] | | | | | | | | +--------+ + + + + | 03/25/ | Office | Orthopedics | Rosy BasurtoAlexander, | | | 2018 | Visit | | [address] | | | | | | [address] | | | | | | [place], [place] | | | | | | [address] | | | | | | [phone] | | | | | | | | +--------+ + + + + | 03/25/ | Office | Hematology & | Sandra Patel MD | | | 2018 | Visit | Oncology | [address] | | | | | | [place], [place] | | | | | | [address] | | | | | | [phone] | | | | | | | | +--------+ + + + + documented as of this encounter Visit Diagnoses Not on filedocumented in this encounter"
--- OUTSIDE RECORDS SUMMARY | ~2019-01-30 | XMS | Encounter Summary ---
Demographics + + + | Address | [address] | | | [place] [address] | + + + | Home Phone [...] Team Providers + +------+ + | Care Administrative Processor Name | Role | Phone | + +------+ + | Santo Gooden MD | PCP | | + +------+ + Reason for Visit + + + | Reason | Comments | + + + | Symptom Management | | + + + | Treatment Questions | | + + + Encounter Details +--------+ + + + + | Date | Type | Department | Care Team | Description | +--------+ + + + + | 04/02/ | Telephone | Hematology/Medical | Sandra Patel MD | Symptom Management; | | 2018 | | Oncology at Center | [address] | Treatment Questions | | | | for Health & Healing | [place], [place] | | | | | [address] | [address] | | | | | Mailcode: Center | [phone] | | | | | for Health and | | | | | | Healing, [address] | | | | | | [place], [place] | | | | | | [address] | | | | | | [phone] | | | +--------+ + + + [...] [address] | | | | | | [place], [place] | | | | | | [address] | | | | | | [phone] | | | | | | | | +--------+ + + + + | 03/25/ | Office | Orthopedics | Lynda Basurto, | | | 2018 | Visit | | [address] | | | | | | [address] | | | | | | [place], [place] | | | | | | [address] | | | | | | [phone] | | | | | | | | +--------+ + + + + | 03/25/ | Office | Hematology & | Sandra Patel MD | | | 2018 | Visit | Oncology | [address] | | | | | | [place], [place] | | | | | | [address] | | | | | | [phone] | | | | | | | | +--------+ + + + + documented as of this encounter Visit Diagnoses + + | Diagnosis | + + | Neutropenic fever (HCC) - Primary Neutropenia, unspecified | + + documented in this encounter"
--- OUTSIDE RECORDS SUMMARY | ~2019-01-30 | XMS | Encounter Summary ---
Demographics + + + | Address | [address] | | | [place] [address] | + + + | Home Phone [...] Team Providers + +------+ + | Care Map Plotter Name | Role | Phone | + [...] | | 2018 | | [facility]cology at [facility] | | | | | | for Health & Healing | | | | | | [address] | | | | | | Mailcode: [place] | | | | | | for Health and | | | | | | [facility] [address] | | | | | | [place], [place] | | | | | | [address] | | | | | | [phone] | | | +--------+ + + + [...] [address] | | | | | | [facility] [place] | | | | | | [address] | | | | | | [phone] | | | | | | | | +--------+ + + + + | 03/25/ | Office | Orthopedics | Lynda Basurto, | | | 2018 | Visit | | [address] | | | | | | [address] | | | | | | [place], [place] | | | | | | [address] | | | | | | [phone] | | | | | | | | +--------+ + + + + | 03/25/ | Office | Hematology & | Sandra Patel MD | | | 2019 | Visit | Oncology | [address] | | | | | | [facility] [place] | | | | | | [address] | | | | | | [phone] | | | | | | | | +--------+ + + + + documented as of this encounter Visit Diagnoses Not on filedocumented in this encounter"
--- OUTSIDE RECORDS SUMMARY | ~2019-01-30 | XMS | Encounter Summary ---
Demographics + + + | Address | [address] [place] [address] | | | [place] [address] | + + + | Home Phone [...] Team Providers + +------+ + | Care Record Clerk Name | Role | Phone | [...] | 2018 | Encounter | Oncology at [facility] | [address] | | | | | [address] | [place] [address] | | | | | Mailcode: [place] | | | | | | for Health and | | | | | | Healing, [address] | | | | | | [place], [place] | | | | | | [address] | | | | | | [phone] | | | +--------+ + + + [...] int radermally. Alcohol and betadine used. 1" storng needles required both sides. CBC and CMP [...] [place] | | | | | | [address] | | | | | | [phone] | | | | | | | | +--------+ + + + + | 03/25/ | Office | Orthopedics | Lynda Basurto, | | | 2018 | Visit | | [address] | | | | | | [address] | | | | | | [place], [place] | | | | | | [address] | | | | | | [phone] | | | | | | | | +--------+ + + + + | 03/25/ | Office | Hematology & | Sandra Patel MD | | | 2018 | Visit | Oncology | [address] | | | | | | [place], [place] | | | | | | [address] | | | | | | [phone] | | | | | | | [...] POINT | [address] | [place] [address] | | | OF CARE TESTS | [...] + + | MINNIE [facility]HA[facility] | [address] [facility] | [place] [address] | | | OF CARE TESTS | [...] [facility] | [address] | [place] [address] | | | SERVICES, CORE | [address]ARK [...] | + + + + + | [employer] | [address] | [place] [address] | | | SERVICES, CORE | ARM[address]O [...] [facility] | [address] | [place] [address] | | | SERVICES, CORE | PARK [...]
--- OUTSIDE RECORDS SUMMARY | ~2019-01-30 | XMS | Encounter Summary ---
Demographics + + + | Address | [address] | | | [place] [address] | + + + | Home Phone [...] Team Providers + +------+ + | Care Doormaker Name | Role | Phone | + [...] Description | +--------+---------+ + + + | 04/24/ | Office | Hematology/Medical | Annie Gannon, | 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 | Oncology at [place] | AGACNP,APPRENTICE/LINEMAN [address] | (HCC) (Primary Dx) | | | | for Health & Healing | Federico Weathers | | | | | [address] | [place], [place] | | | | | Mailcode: [place] | [address] | | | | | for Health and | [phone] | | | | | [place] [address] | | | | | | [place], [place] | | | | | | [address] | | | | | | [phone] | | | +--------+---------+ + + + [...] encounter Patient Instructions Patient Instructions Annie Gannon AGACNMariela,APPRENTICE/LINEMAN - 04/24/2018 8:30 AM PDTIf you have any questions or concerns please call: During Clinic hours: [phone] Evenings, weekends and Holidays: [phone], ask for the Oncologist on-call Please contact [...] Painful rash Thank you, Annie Gannon, MSN, ROME-BC, APPRENTICE/LINEMAN-C Nurse Practitioner Hematology & Medical Oncology documented in this encounter Progress Notes Annie Gannon AGACNP, FNP - 04/24/2018 8:30 AM PDTFormatting of this note might be dif ferent from the original. 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 Her surgical incision is completely closed . She has had no fevers. She was the prosthetic person at [facility] who told her as so on as her surgeon releases her they can start working with prosthetic and ambulation. She co ntinues to get IV antibiotics at home. She tells me she is back at work some and feels this is helping her mood. She has not other complaints other then fatigue. History: Prior records reviewed. Tati Cage is a 32 y.o. 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 She first noticed a lump in September 2017, which grew in siz e of the next few months. Initially treated conservatively. She sought re-evaluation in when it became increasingly painful. A MRI showed a 8 cm mass in her medial midfoot concer sejal for malignancy. Dr Basurto obtained a biopsy on 01/15/18. Pathology consistent with synovi al sarcoma, SYT FISH positive. Staging chest CT negative. Rapid local progression with pain and infection necessitating upfront amputation on 02/06/[address] Basurto. Started adjuvant chemo 02/19/18. C1 c/b febrile neutropenia. C2 c/b wound infection requiring debridement on 03/24 a nd 03/27, delaying C3. ROS: 14 point review of systems performed. Return Visit Health History Update form reviewed [...] hours. Indications: os teomyelitis Miscellaneous Medical Supply [facility], Bedside commode for nighttime use following [...] [Meperidine Hcl] Pruritus Morphine Pruritus PHYSICAL EXAM: Constitutional - Awake, alert, pleasant overweight 32 year old female in no acute distress. Alopecia Eyes - Anicteric sclera, no drainage. Wearing prescription eyeglasses. ENT - Oropharynx moist. No oral lesions, exudate or erythema. Respiratory - Normal work of breathing. Lungs clear to ausculation bilaterally. CV - Regular rate and rhythm. Skin - No bruising or rashes. Port site without erythema, warmth, swelling or pain. Musculoskeletal - S/P left BKA. Incision closed with no erythema, warmth, swelling or pain. Wearing compression device. Neurologic - A&O x 3. counselor/art therapist grossly intact. Affect/Psych - Appropriate mood and affect. ECOG - 0 LABS: Lab Results Component Value Date WBC 5.3 04/24/2018 HB 11.6 04/24/2018 HCT 34.0 04/24/2018 PLT 173 04/24/2018 MCV 90.7 04/24/2018 RDW 52.4 04/01/2018 Lab Results Component Value Date NA 142 04/24/2018 K 3.4 04/24/2018 CL 102 04/24/2018 BICARB 30 04/24/2018 BUN 10 04/24/2018 CR 0.7 04/24/2018 GLU 110 04/24/2018 CA 9.0 04/24/2018 AST 23 04/24/2018 ALT <20 04/24/2018 AP 44 04/24/2018 TBILI 0.5 04/24/2018 TP 6.4 04/24/2018 ALB 3.5 04/24/2018 ANIONGAP 5 04/01/2018 ANIONALBCOR 8 03/31/2018 ASSESSMENT: Tati Cage is a 32 y.o. 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 Rapid local progression with pain and infection necessitating upfront amputation on 02/06/[address] Basurto. Completed 2 cycles of adjuvant epirubicin/ifosfamide, c/b wound infection. C2 c/b wound infection requiring debridement on 03/24 and 03/27, delaying C3. PLAN: - Admit for cycle 3 today. - Continue IV antibiotics through 05/15/[address] Stephen. - Likely limit to 3 cycles total - Tati needs a letter to [facility] from Dr. Basurto when pt is released to start using prosthesis and begin PT with it. I will route this note to Dr. Basurto. ROME ADHIKARI FNP HEMATOLOGY/MEDICAL ONCOLOGY AT [place] [id number] Mailcode: [id number] [address] documented in this encounter Plan of Treatment +--------+ + + + + | Date | Type | Specialty | Care Team | Description | +--------+ + + + + | 03/25/ | Appointment | Radiology | Sandra Patel MD | | | 2018 | | | [address] | | | | | | [place], [place] | | | | | | [address] | | | | | | [phone] | | | | | | | | +--------+ + + + + | 03/25/ | Office | Orthopedics | Lynda Basurto, | | | 2018 | Visit | | [address] | | | | | | [address] | | | | | | [place], [place] | | | | | | [address] | | | | | | [phone] | | | | | | | | +--------+ + + + + | 03/25/ | Office | Hematology & | Sandra Patel MD | | | 2019 | Visit | Oncology | [address] | | | | | | [place], [place] | | | | | | [address] | | | | | | [phone] | | | | | | | | +--------+ + + + + documented as of this encounter Visit Diagnoses + + | Diagnosis | + + | 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
--- OUTSIDE RECORDS SUMMARY | ~2019-01-30 | XMS | Encounter Summary ---
Demographics + + + | Address | [address] | | | [place] [address] | + + + | Home Phone [...] Providers + +------+ + | Care Airplane Mechanic Name | Role | Phone | [...] | | 2018 | | Oncology at [place] | | | | | | for Health & Healing | | | | | | [address] | | | | | | Mailcode: [place] | | | | | | for Health and | | | | | | [facility] [address] | | | | | | [place], [place] | | | | | | [address] | | | | | | [phone] | | | +--------+ + + + [...] [place] | | | | | | [address] | | | | | | [phone] | | | | | | | | +--------+ + + + + | 03/25/ | Office | Orthopedics | Lynda Basurto, | | | 2018 | Visit | | [address] | | | | | | [address] | | | | | | [place], [place] | | | | | | [address] | | | | | | [phone] | | | | | | | | +--------+ + + + + | 03/25/ | Office | Hematology & | Sandra Patel MD | | | 2019 | Visit | Oncology | [address] | | | | | | [facility] [place] | | | | | | [address] | | | | | | [phone] | | | | | | | | +--------+ + + + + documented as of this encounter Visit Diagnoses Not on filedocumented in this encounter"
--- OUTSIDE RECORDS SUMMARY | ~2019-01-30 | XMS | Encounter Summary ---
Demographics + + + | Address | [address] | | | [place] [address] | + + + | Home Phone [...] Team Providers + +------+ + | Care Diet Aide Name | Role | Phone | [...] Nascimento | | | | | | [facility] | | | | | | [place], [place] | | | | | | [address] | | | +--------+ + + + [...] [address] | | | | | | [place], [place] | | | | | | [address] | | | | | | [phone] | | | | | | | | +--------+ + + + + | 03/25/ | Office | Orthopedics | Lynda Basurto, | | | 2018 | Visit | | [address] | | | | | | [address] | | | | | | [place], [place] | | | | | | [address] | | | | | | [phone] | | | | | | | | +--------+ + + + + | 03/25/ | Office | Hematology & | Sandra Patel MD | | | 2018 | Visit | Oncology | [address] | | | | | | [place], [place] | | | | | | [address] | | | | | | [phone] | | | | | | | | +--------+ + + + + documented as of this encounter Visit Diagnoses Not on filedocumented in this encounter"
--- OUTSIDE RECORDS SUMMARY | ~2019-01-30 | XMS | Encounter Summary ---
Demographics + + + | Address | [address] | | | [place] [address] | + + + | Home Phone [...] Author + + + | Author | [facility] | + + + | Organization | [facility] | + + + | Address | Unknown | + + + | Phone | Unavailable | + + + Support + + +---------+ + | Name | Relationship | Address | Phone | + + +---------+ + | Kika Cage | ECON | Unknown | | + + +---------+ + Care Team Providers + +------+ + | Care Cash Control Specialist Name | Role | Phone | [...] | | 2017 | | Oncology at [place] | | | | | | for Health & Healing | | | | | | [address] | | | | | | Mailcode: [place] | | | | | | for Health and | | | | | | [facility] [address] | | | | | | [place], [place] | | | | | | [address] | | | | | | [phone] | | | +--------+ + + + [...] [place] | | | | | | [address] | | | | | | [phone] | | | | | | | | +--------+ + + + + | 03/25/ | Office | Orthopedics | Lynda Basurto, | | | 2018 | Visit | | [address] | | | | | | [address] | | | | | | [place], [place] | | | | | | [address] | | | | | | [phone] | | | | | | | | +--------+ + + + + | 03/25/ | Office | Hematology & | Sandra Patel MD | | | 2019 | Visit | Oncology | [address] | | | | | | [facility] [place] | | | | | | [address] | | | | | | [phone] | | | | | | | | +--------+ + + + + documented as of this encounter Visit Diagnoses Not on filedocumented in this encounter"
--- OUTSIDE RECORDS SUMMARY | ~2019-01-30 | XMS | Encounter Summary ---
Demographics + + + | Address | [address] | | | [place] [address] | + + + | Home Phone [...] Team Providers + +------+ + | Care Performance Analyst Name | Role | Phone | [...] | | [facility] [address] | [address] | (Primary Dx) | | | | [place] Mailcode: | [place], [place] | | | | | [facility] | [address] | | | | | and Healing, | [phone] | | | | | [address] | | | | | | [place], [place] | | | | | | [address] | | | | | | [phone] | | | +--------+---------+ + + + [...] Ave | | | | | | [place], [place] | | | | | | [address] | | | | | | [phone] | | | | | | | | +--------+ + + + + | 03/25/ | Office | Orthopedics | Lynda Basurto, | | | 2018 | Visit | | [address] | | | | | | [address] | | | | | | [place], [place] | | | | | | [address] | | | | | | [phone] | | | | | | | | +--------+ + + + + | 03/25/ | Office | Hematology & | Sandra Patel MD | | | 2018 | Visit | Oncology | [address] | | | | | | [place], [place] | | | | | | [address] | | | | | | [phone] | | | | | | | | +--------+ + + + + documented as of this encounter Visit Diagnoses + + | Diagnosis | + + | 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
--- OUTSIDE RECORDS SUMMARY | ~2019-01-30 | XMS | Encounter Summary ---
Demographics + + + | Address | [address] | | | [place] [address] | + + + | Home Phone [...] Providers + +------+ + | Care Cash Shortage Investigator Name | Role | Phone | + [...] IRRIGATION AND | | 2018 | | [facility] | MD [address] | DEBRIDEMENT LEFT | | | | Admitting Desk | [facility] | BELOW KNEE | | | | Located on the | [place], [place] | AMPUTATION SITE, | | | | floor [address] | [address] | WOUND VAC CHANGE, | | | | [address] | [phone] | REVISION BELOW KNEE | | | | [place], [place] | | AMPUTATION | | | | [address] | | | +--------+---------+ + + + [...] CBC and reticulocyte count on 04/04/18 a [facility]. Appointments: Future Appointments Provider Department Dept Phone Center 04/09/2018 2:00 PM Hem Starter Nurse Hematology/Medical Oncology at [facility] [phone] HemOnc 04/09/2018 3:10 PM Sandra Patel Hematology/Medical Oncology at [place] [address] [phone] [place] 04/09/2018 3:40 PM Lynda Basurto [facility] Orthopaedics & Rehabilitation [phone] [place] Discharge condition: Fair Discharge destination (If [...] anxiety (1st line nausea/vomiting). Miscellaneous Medical Supply [facility] Commonly known as: Miscellaneous Medical Supply Bedside [...] 25 mg Tab Commonly known as: HYDRODIURIL Dyloucilo-Uvwrxsonb-Db-Mag-Sim [id number] mg/30 mL Mwsh Commonly known as: FIRST-MOUTHWASH [...] room air Abdominal: nontender, non-distended, obese Skin: [place], warm, well-perfused, no ecchymoses Extremities: LLE ejtus-gza-darg amputation site dressed in compression wrap. Drain [...] MD I spent more than 36 minutes mxff-qh-gsem with the patient of which greater than 50% was sp ent counseling the patient coordinating care. documented in th is encounter Discharge Instructions Instructions Rashida Thompson RN - 04/01/2018In order to receive services for line care and l ab work at [facility] Out Patient Infusion/Day Surgery: you will first need to be seen by an MD (with privilidges at [facility] in clinic). Please go in to [facility] in clinic to see an MD prior to your Saturday04/04/2018 [facility] appointment for your lab [...] Orthopaedic Attending: Tati Cage 1985 32 y.o. [id number] 04/01/2018 03/23/2018 9 Macie Torre MD Diagnosis(es): [...] ID recs: zosyn x 6 weeks through [facility]'s existing port. Care Protocol Items: 1. Immobility [...] to make a follow up appointment in [facility] 2 weeks with ORTHO ONCOLOGY, Odalys Tobin - (Adela) Junaid Burrell MD Orthopaedic Surgery, R3 [phone] 03/31/2018 esia Foster NP - 04/01/2018 12:14 PM PDT Orthopaedic Surgery Progress Note Patient: /Age: MRN: CSN: Date: Admission Date: Hospital Day: Orthopaedic Attending: Tati Cgae 1985 32 y.o. [id number] 04/01/2018 03/23/2018 9 Macie Torre MD Diagnosis(es): [...] infection or alberto inage. Cesia Foster NP [facility] [address] [place] [place] [address] Lynda Ravi MD - 04/01/2018 11:49 AM [...] last dose 03/12/18), per hem/onc.Most recent fe lroee was 38.7 degrees C on morning of [...] consulted, see above plan # Pancytopenia # Tlcmj-gd-iycbibg anemia Pt's WBC and platelets have recovered, [...] n 03/17/18. - Pt beingfollowed by onc [facility], appreciate recs. Dr. Sandra Patel [...] of anemia and hemat ology workup. Dawit Jose Luis, MS4 [facility] [phone] Associated attestation - Greg Del Rosario MD [...] with our plans. Greg Del Rosario MD Youth Director Division of Hospital Medicine Teaching Attending I spent 37 minutes in the care of this patient, >50% engaged in bedside counseling or coord ination of care with orthopedics, anesthesia pain service.Bela Holt MD - 018 9:28 AM PDTPt weaned off PNB. Catheter pulled. Tip intact. Coag status normal prior to removal of catheter. APS will sign-off. [place] APS [phone] with questions/concerns. Bela Holt MD APS # [id number] Lynda Ravi MD - 03/31/2018 9:14 AM [...] Orthopaedic Attending: Tati Cage 1985 32 y.o. [id number] [phone] 03/31/2018 03/23/2018 8 Macie Torre MD Diagnosis(es): [...] to make a follow up appointment in [facility] 2 weeks with ORTHO ONCOLOGY, Odalys Tobin - (Adela) Junaid Burrell MD Orthopaedic Surgery, R3 [id number] 03/31/2018 esia Gaitan M D - 03/30/2018 4:51 PM PDTAPS Clarification Note; Tonight the continuous rate on the nerve block will be to 0 ml/hr and bolus only will be in place. Catheter will be pulled Saturday. Cesia Gaitan MD [facility] 9M [address] [facility], 4th Floor Mail Code: CH4P [place], [place] [address] oRafael platt MD - 03/30/2018 4:35 PM PDT General [...] on 03/17/18. - Pt beingfollowed by onc [facility], appreciate recs. Dr. Sandra Patel is her primary oncologist and she will have follow up on 04/09 to discuss cycle 3 planning. # mild LE edema Suspect due to IVF. - compression stocking to RLE. - will consider lasix # Pancytopenia # Dqxhe-vs-wnbqpxj anemia Likely hypoproliferationin setting of recentsystemic chemotherapy and acute inflammatio n. Will continue to monitor and transfuse as needed, goal >7. - She has received a total of 5 units of pRBCs at [facility] and 1 unit previously at [...] Rafael Shell PGY-2 Internal Medicine Pager # [phone] Associated attestation - Greg Del Rosario MD [...] with our plans. Greg Del Rosario MD Youth Director Division of Hospital Medicine Teaching Attending I [...] 25 mg 25 mg oral Q6H PRN yiqnoyvdtaTGTTL-nbkryavnj-PJWZRD (SPECIAL MOUTHWASH) suspension (compound) 5 mL 5 [...] 25 mg 25 mg oral Q6H PRN bmvrsqogcjJRVEV-mylpmruyh-BZOVVY (SPECIAL MOUTHWASH) suspension (compound) 5 mL 5 [...] Orthopaedic Attending: Tati Cage 1985 32 y.o. [id number] 03/30/2018 03/23/2018 7 Macie Torre MD Diagnosis(es): [...] recs: zosyn x 6 weeks through [facility] existing port. Will be tapering nerve block [...] to make a follow up appointment in [facility] 2 weeks with ORTHO ONCOLOGY, Odalys Clarktiste - (Sb and Jorge L) Adam Jean MD Pager: [phone] Dawit Gilliam - 4:46 PM PDT General [...] on 03/17/18. - Pt beingfollowed by onc [facility], appreciate recs. Dr. Sandra Patel is her primary oncologist . Oncology team communicating with Dr. Patel. - Coordinating with onc and ortho regarding plan for timing of cycle 3 of chemotherapy, whi ch will need to be delayed to allow for healing after infection. # Pancytopenia # Euluc-jg-kdoqqrb anemia Likely hypoproliferationin setting of recentsystemic chemotherapy and acute inflammatio n. Will continue to monitor and transfuse as needed, goal >7. - Hg 6.8 this morning --> pRBC x1 today - She has received a total of 5 units of pRBCs at [facility] and 1 unit previously at [...] q12h Code: Full Dispo: Continue inpatient care Dawti Amaya, 4 [facility] Pager [phone] signed by Greg Del Rosario MD at [...] with our plans. Greg Del Rosario MD Youth Director Division of Hospital Medicine Teaching Attending I [...] Orthopaedic Attending: Tati Cage 1985 32 y.o. [phone] 03/29/2018 03/23/2018 6 Macie Torre MD Diagnosis(es): [...] to make a follow up appointment in [facility] 2 weeks with ORTHO ONCOLOGY, Odalys Tobin - (Sb and Jorge L) Adam Jean MD Pager: [phone] irishDawit riley Sho - 1:33 PM PDT General Internal [...] in 4/5. Pathology Report from 03/24/18 left qqhmb-etw-ejgp amputation site debridement: "A. Soft tissue, left [...] on 03/17/18. - Pt beingfollowed by onc [facility], appreciate recs. Dr. Sandra Patel is her primary oncologist . Oncology team will communicate with Dr. Patel. - Coordinating with onc and ortho regarding plan for timing of cycle 3 of chemotherapy, whi ch will need to be delayed to allow for healing after infection. # Pancytopenia # Hkqjb-je-pohaijn anemia Likely hypoproliferationin setting of recentsystemic chemotherapy and acute inflammatio n. Will continue to monitor and transfuse as needed, goal >7. - Hg 9.2 this morning. - She has received at total of 4 units of pRBCs at [facility] and 1 unit previously at [...] Continue inpatient care Dawit Jose Luis, MS4 [facility] Pager [phone] signed by Greg Del Rosario MD at [...] with our plans. Greg Del Rosario MD Youth Director Division of Hospital Medicine Teaching Attending I [...] Orthopaedic Attending: Tati Cage 1985 32 y.o. [id number] [phone] 03/28/2018 03/23/2018 5 Macie Torre MD Diagnosis(es): [...] to make a follow up appointment in [facility] 2 weeks with ORTHO ONCOLOGY, [...] edge. Junaid Burrell MD Orthopaedic Surgery, R3 [id number] 03/26/2018 Madiha Gonzales FNP - 03/28/2018 12:15 [...] the lef t lower extremity pain. Ms. Elizabeths pain score at rest is 0/10. 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 No kids. Lives with her mother Kika. [...] by primary care team. Madiha Rebollar DNP, COAT CUTTER-C [facility] [address] [place] [address] Lynda Ravi MD - 03/28/2018 8:06 AM [...] Ricardo Morales MD/PhD Anesthesiology CA-2 APS pager [phone] signed by Arnold Street MD at 03/28/2018 7:02 AM PDTJose Luis Dawit Sho - 03/27/2018 6:39 AM PDT General [...] neutropenia after c hemotherapy. # Pancytopenia # Psafw-mg-mtqxunz anemia Likely hypoproliferation in setting of recentsystemic chemotherapy and acute inflammation . Will continue to monitor and transfuse as needed, goal >7. - Hg 8.0 this morning prior to procedure today, 7.4 after. EBL of 200 mL during procedure. - She has received at total of 4 units of pRBCs at [facility] and 1 unit previously at [...] on 03/17/18. - Pt beingfollowed by onc [facility], appreciate recs. Dr. Sandra Patel [...] Dispo: Continue inpatient care Dawit Amaya, MS4 [facility] [place] Pager [phone] signed by Greg Del Rosario MD at [...] with our plans. Greg Del Rosario MD Youth Director Division of Hospital Medicine Teaching Attending I [...] closure. -NPO p MN -cont IV abx ose Luis Dawit Sho - 03/26/2018 4:45 PM PDTFormatting of this [...] units of pRBCs have been given at [facility], with 1 unit given at [...] returning to the OR. # Pancytopenia # Kdxiy-bi-hvzuhxx anemia Likely hypoproliferation in setting of recentsystemic chemotherapy and acute inflammation . No evidence of acute blood loss or hemolysis. Drainage from wound vac has been minimal. Wi ll continue to monitor and transfuse as needed, goal >7. - Hg improved to 9.2 today after an additional unit of pRBCs this morning. She has received at total of 4 units of pRBCs at [facility] and 1 unit previously at [...] 03/17/18. - Pt being followed by onc [facility], appreciate recs. Dr. Sandra Patel [...] Dispo: Continue inpatient care Dawit Amaya, MS4 [facility] Pager [phone] signed by Greg Del Rosario MD at [...] with our plans. Greg Del Rosario MD Youth Director Division of Hospital Medicine Teaching Attending I [...] Orthopaedic Attending: Tati Cage 1985 32 y.o. [id number] [phone] 03/26/2018 03/23/2018 3 Macie Torre MD Diagnosis(es): [...] to make a follow up appointment in [facility] 2 weeks with ORTHO ONCOLOGY, [...] edge. Junaid Burrell MD Orthopaedic Surgery, R3 [id number] 03/26/2018 Greg Dean MD - 03/25/2018 9:59 [...] with our plans. Greg Del Rosario MD Youth Director Division of Hospital Medicine Teaching Attending I [...] Orthopaedic Attending: Tati Cage 1985 32 y.o. [id number] 03/25/2018 03/23/2018 2 Macie Torre MD Diagnosis(es): left below-knee amputation stump infection Orthopaedic Procedure(s) & Date(s): irrigation and debridement of left below-knee amputati on stump, wound vac application Assessment & Plan: Tati Rhea Niles is a 32 y.o.F with the diagnoses/procedures listed above. Today's specific concerns include: Pain management-- Pain better tolerated. Able to move residual limb with less pain. Credits this to the tylenol. Mobilization-- From Dr. Doung, ok for patient to leave room and go [...] to make a follow up appointment in [facility] 2 weeks with ORTHO ONCOLOGY, [...] knee. Reflexes: not performed Sorin Aguirre MD [facility] Department of Orthopaedics & Rehabilitation [address] [place] [address] Mail Code: OP31 [facility] [id number] Dawit Gilliam - 03/03 7:30 AM PDT [...] 03/17/18. - Pt being followed by onc [facility], appreciate recs. Dr. Sandra Patel [...] Dispo: Continue inpatient care Dawit Amaya, MS4 [facility] Pager [phone] Associated attestation - Yves Cornejo MD - [...] 7; getting third at [employer] 2nd shift VITALS Last 24 hour min/max Temp: 36.7 [...] 2.1> 2.9> >>> 15.1 ANC 640> 2340>>> 54052 Hgb 8.2> 7.3> 7.4> 5.3> 1 unit> [...] K. Remainder of plan per her some consumer insights intern note attached. Yves "Oc" MD [facility] [...] Events: - Irrigation and debridement of left wefkx-nss-vrvj amputation stump followed by wound vac placement, [...] left BKA stump followed by wound vac concepcion calvin, without complications. Wound cultures x6 collected. Pt [...] on 03/17/18. - Pt followed by onc KSELAINE, who is seeing patient today - Per [...] Dispo: Continue inpatient care Dawit Amaya, MS4 [facility] Pager [phone] signed by Greg Del Rosario MD at [...] TSERING DUMONT MD,MPH PGY-5 Orthopaedic Surgery Pager: [phone] Deann Andrew MD - 03/24/2018 2:00 AM [...] Federico Simpson MD Orthopedic Surgery, R2 Pager [phone] documented in this encounter Plan of Treatment +--------+ + + + + | Date | Type | Specialty | Care Team | Description | +--------+ + + + + | 03/25/ | Appointment | Radiology | Sandra Patel MD | | | 2018 | | | [address] | | | | | | [facility] [place] | | | | | | [address] | | | | | | [phone] | | | | | | | | +--------+ + + + + | 03/25/ | Office | Orthopedics | Lynda Basurto, | | | 2018 | Visit | | [address] | | | | | | [address] | | | | | | [place], [place] | | | | | | [address] | | | | | | [phone] | | | | | | | | +--------+ + + + + | 03/25/ | Office | Hematology & | Sandra Patel MD | | | 2018 | Visit | Oncology | [address] | | | | | | [place], [place] | | | | | | [address] | | | | | | [phone] | | | | | | | [...] | + +--------+ + + + | BRIE DIRECT | Routin | 03/31/2018 | | [...] | + + + + + | [facility] | [address] [facility] | [place] [address] | | | AN[address] ANGUIAN[address] | ARMANDO [...] | + + + + + | [facility] | [address] | [place] [address] | | | SERVICES, CORE | PARK [...] (H) | 50.0 - 70.0 % | [facility] | | | % | | | [...] [facility] | [address] | [place] [address] | | | SERVICES, CORE | PARK [...] | + + + + + | [facility] | [address] | [place] [address] | | | ANTONI ANGUIANO | ARMANDO [...] | + + + + + | [facility] | [address] [facility] | [place] [address] | | | SERVICES, CORE | ARMAND[address] [...] administered. FINDINGS: The patient has a left kvtqq-daw-qomf | | | amputation. A surgical drain [...] administered. FINDINGS: The patient has a left xdwbj-wun-ivsf amputation. A surgical | | drain is [...] LABORATORY | [address] | [place] [address] | | | SERVICES, CORE | PARK [...] | + + + + + | [facility] | [address] [facility] | [place] [address] | | | SERVICES, | [address] [...] | + + + + + | [facility] | [address] [facility] | [place] [address] | | | SERVICES, CORE | ARMAND[address] [...] [facility] | [address] | [place] [address] | | | SERVICES, CORE | PARK [...] | + + + + + | [facility] | [address] [facility] | [place] [address] | | | SERVICES, | [address] [...] [facility] | [address] | [place] [address] | | | SERVICES, CORE | PARK [...] LABORATORY | [address] | [place] [address] | | | SERVICES, CORE | PARK [...] + + + + | PRODUCT | [id number] | | [facility] | | | UNIT [...] + + + + | EXPIRATION | [id number] | | [facility] | | | DATE [...] + + + + | BLOOD | [id number] | | [facility] | | | PRODUCT [...] LABORATORY | [address] | [place] [address] | | | SERVICES, | [address] [...] + + + + | PRODUCT | [id number] | | [facility] | | | UNIT [...] + + + + | EXPIRATION | [id number] | | [facility] | | | DATE [...] + + + + | BLOOD | [id number] | | [facility] | | | PRODUCT [...] | + + + + + | [facility] | [address] | [place] [address] | | | SERVICES, | [address] [...] + + + + | PRODUCT | [id number] | | [facility] | | | UNIT [...] + + + + | EXPIRATION | [id number] | | [facility] | | | DATE [...] + + + + | BLOOD | [id number] | | [facility] | | | PRODUCT [...] | + + + + + | [facility] | [address] | [place] [address] | | | SERVICES, | [address] [...] | + + + + + | [facility] | [address] | [place] [address] | | | SERVICES, CORE | ARMANDO [...] | + + + + + | [facility] | [address] | [place] [address] | | | SERVICES, CORE | PARK [...] [facility] | [address] | [place] [address] | | | ANTONI ANGUIANO | ARMAND[address] [...] | + + + + + | [facility] | [address] | [place] [address] | | | SERVICES, CORE | ARMANDO [...] | + + + + + | [facility] | [address] | [place] [address] | | | SERVICES, CORE | ARMANDO [...] (H) | 70 - 99 mg/dL | [facility] - | | | GLUCOSE, | | [...] + + + + | [facility] | [address] | [place], [place] | | | MINNIE OSORIO OF KANDY | [facility] | [address] | | | TESTS | | | [...] [facility] | [address] | [place] [address] | | | SERVICES, CORE | PARK [...] | + + + + + | [facility] | [address] [facility] | [place] [address] | | | ANTONI ANGUIANO | ARMANDO [...] | + + + + + | [facility] | [address] | [place] [address] | | | SERVICES, CORE | PARK [...] [facility] | [address] | [place] [address] | | | SERVICES, | [address] [...] + | [facility] | [address] | [place] [address] | | | SERVICES, | [address] [...] + + + + | PRODUCT | [id number] | | [facility] | | | UNIT [...] + + + + | EXPIRATION | [id number] | | [facility] | | | DATE [...] + + + + | BLOOD | [id number] | | [facility] | | | PRODUCT [...] | + + + + + | [facility] | [address] | [place] [address] | | | SERVICES, | [address] [...] + + + | [facility] | [address] | [place], [place] | | | DEVON POINT OF CARE | [address] | [address] | | | TESTS | | | [...] [facility] | [address] | [place] [address] | | | ANTONI ANGUIANO | [address] [...] | + + + + + | [facility] | [address] [facility] | [place] [address] | | | ANTONI ANGUIANO | ARMAND[address] [...] level | [facility] | | ordered for :03/29 | LABORATORY | | | SERVICES, CORE | + + + + + + + + | Performing | Address | City/State/Zipcode | Phone Number | | Organization | | | | + + + + + | [facility] | [address] | [place] [address] | | | SERVICES, CORE | PARK [...] | + + + + + | [facility] | [address] | [place] [address] | | | SERVICES, CORE | PARK [...] | + + + + + | [facility] | [address] [facility] | [place] [address] | | | SERVICES, [facility] | [address] | | | + [...] | + + + + + | [facility] | [address] [facility] | [place] [address] | | | ANTONI ANGUIANO | [address] [...] | + + + + + | [facility] | [address] [facility] | [place] [address] | | | SERVICES, [facility] | [address] | | | + + + + + OPERATION RECORD (03/27/2018 12:10 PM PDT) + + | Procedure Note | + + | Lynda Basurto MD - 03/27/2018 12:10 PM PDT Date of Service: 03/27/2018 | | Attending Surgeon: Lynda Basurto MD School Age Teacher(s): Odalys | | R Elvin Tobin PA-C. Please note no other qualified advertising assistant was available. | | Preoperative Diagnosis: [...] closure of the fascia. This was a 10-Guinean | | channel drain. Please note, the [...] 03/27/2018 | | 11:18:37DT: 03/27/2018 12:10:06Job #: [id number] | + + CAPILLARY BLOOD GLUCOSE (NO [...] [facility] | [address] | [place], [place] | | | [place], POINT OF CARE | [address] | [address] | | | TESTS | | | [...] + + + + | [facility] | [address] | [place], [place] | | | [place] OF [facility] | [address] | [address] | | | TESTS | | | [...] Gram Stain: No squamous epithelial cells | [place] | | Rare polymorphonuclear cells No organisms seen | | + + + + + + + + | Performing | Address | City/State/Zipcode | Phone Number | | Organization | | | | + + + + + | [facility] | [address] | [place] [address] | | | [facility] | | | | + + + [...] | | cells No organisms seen | [place] | + + + + + + + + | Performing | Address | City/State/Zipcode | Phone Number | | Organization | | | | + + + + + | [facility] - | [address] | [place] [address] | | | [place] | | | [...] Rare Escherichia coli Refer to culture | POWER - | | collected 03/24/18 at 11:56 [...] + | [facility] - | [address] | [place] [address] | | | [place] | | | [...] + | [facility] - | [address] | [place] [address] | | | [place] | | | | + + + [...] Gram Stain: No squamous epithelial cells | [place] | | Rare polymorphonuclear cells No organisms seen | | + + + + + + + + | Performing | Address | City/State/Zipcode | Phone Number | | Organization | | | | + + + + + | [facility] - | [address] | [place] [address] | | | [facility] | | | | + + + [...] [facility] | [address] | [place], [place] | | | MINNIE OSORIO OF [place] | [address] | [address] | | | TESTS | | | [...] [facility] | [address] | [place] [address] | | | SERVICES, CORE | PARK [...] | + + + + + | [facility] | [address] [facility] | [place] [address] | | | SERVICES, CORE | ARMANDO [...] + + | [facility] | [address] [facility] | [place] [address] | | | SERVICES, CORE | PARK [...] + + | [facility] | [address] [facility] | [place] [address] | | | SERVICES, CORE | PARK [...] | + + + + + | [facility] | [address] | [place] [address] | | | ANTONI ANGUIANO | ARMANDO [...] [facility] | [address] | [place] [address] | | | SERVICES, CORE | PARK [...] [facility] | [address] | [place] [address] | | | SERVICES, CORE | PARK [...] + + + + | PRODUCT | [id number] | | [facility] | | | UNIT [...] + + + + | EXPIRATION | [id number] | | [facility] | | | DATE [...] + + + + | BLOOD | [id number] | | [facility] | | | PRODUCT [...] [facility]ORATORY | [address] | [place] [address] | | | SERVICES, | [address] [...] | + + + + + | [facility] | [address] | [place] [address] | | | SERVICES, CORE | ARMANDO [...] [facility] | [address] | [place] [address] | | | ANTONI ANGUIANO | ARMANDO [...] + + + + | PRODUCT | [id number] | | [facility] | | | UNIT [...] + + + + | EXPIRATION | [id number] | | [facility] | | | DATE [...] + + + + | BLOOD | [id number] | | [facility] | | | PRODUCT [...] [facility] | [address] | [place] [address] | | | SERVICES, | [address] [...] | + + + + + | [facility] | [address] | [place] [address] | | | SERVICES, CORE | ARMANDO [...] + + | [facility] | [address] [facility] | [place] [address] | | | SERVICES, CORE | PARK [...] | + + + + + | [facility] | [address] | [place] [address] | | | SILVIO, ANTONI | ARMANDO [...] [facility] | [address] | [place] [address] | | | SERVICES, CORE | PARK [...] [facility] | [address] | [place] [address] | | | SERVICES, CORE | ARMANDO [...] [facility] | [address] | [place] [address] | | | SERVICES, CORE | ARMANDO [...] [facility] | [address] | [place] [address] | | | SERVICES, CORE | PARK [...] + + + + | PRODUCT | [id number] | | [facility] | | | UNIT [...] + + + + | EXPIRATION | [id number] | | [facility] | | | DATE [...] + + + + | BLOOD | [id number] | | [facility] | | | PRODUCT [...] [facility] | [address] | [place] [address] | | | SERVICES, | [address] [...] | + + + + + | [facility] | [address] | [place] [address] | | | SERVICES, CORE | ARMANDO [...] | + + + + + | [facility] | [address] | [place] [address] | | | SERVICES, CORE | ARMANDO [...] | + + + + + | [facility] | [address] | [place] [address] | | | SERVICES, CORE | PARK [...] | + + + + + | [facility] | [address] [facility] | [place] [address] | | | ANTONI ANGUIANO | ARMANDO YEE | | | + + + + + DEBRIDEMENT OF BELOW KNEE AMPUTATION STUMP (03/24/2018 1:31 PM PDT) + + + | Narrative | Performed At | + + + | Macie Torre MD 03/24/2018 1:49 PM [facility] | | | [facility] | | | OPERATIVE REPORT | | | Patient | | | Name: Tati Cage Date of : 1985 Medical Record | | | Number: [id number] Contract Serial Number:: [id number] Report | | | Author: MACIE TORRE MD Procedure Date: 03/24/2018 | | | Attending Physician: 1. MACIE TORRE MD School Age Teacher(s): | | | 1. Tsering Dumont MD [...] and | | | fascia. Wound size [id number] after tacking back fascia | | | [...] in the remaining wound | | | [id number]. Excellent seal was attained. The patient was [...] [facility] | [address] | [place], [place] | | | [facility] | [address] | [address] | | | TESTS | | | [...] | | | | | | number [id number]. Leg, | | | | | | [...] | + + + + + | [facility] | [address] | [place] [address] | | | PATHOLOGY | [address] [...] | | | RESULT | | | [facility] - | | | | | | [place] | | + + + + + + + + | Specimen | + + | Tissue | + + + + + | Narrative | Performed At | + + + | Culture Report: 1+ Escherichia coli Refer to culture collected | [facility] - | | 03/24/18 at 11:56 AM for susceptibilities 1+ Prevotella bivia | [facility] - | | Gram Stain: No squamous epithelial cells Rare polymorphonuclear | [place] | | cells No organisms seen | | + + + + + + + + | Performing | Address | City/State/Zipcode | Phone Number | | Organization | | | | + + + + + | [facility] | [address] | [place] [address] | | | [place] | | | | + + + [...] negative Staphylococcus species Please contact the | [place] | | microbiology laboratory if further work up of this culture is needed. | | | Gram Stain: No squamous epithelial cells No polymorphonuclear | | | cells No organisms seen | | + + + + + + + + | Performing | Address | City/State/Zipcode | Phone Number | | Organization | | | | + + + + + | [facility] | [address] | [place] [address] | | | [place] | | | | + + + [...] + | [facility] | [address] | [place] [address] | | | [place] | | | [...] Gram Stain: No squamous epithelial cells | [place] | | Rare polymorphonuclear cells No organisms seen | | + + + + + + + + | Performing | Address | City/State/Zipcode | Phone Number | | Organization | | | | + + + + + | [facility] | [address] | [place] [address] | | | [place] | | | [...] | + + + + + | [facility] | [address] | [place] [address] | | | [place] | | | | + + + [...] + + + + | PRODUCT | [id number] | | [facility] | | | UNIT [...] + + + + | EXPIRATION | [id number] | | [facility] | | | DATE [...] + + + + | BLOOD | [id number] | | [facility] | | | PRODUCT [...] [facility] | [address] | [place] [address] | | | SERVICES, | [address] [...] + + + + | PRODUCT | [id number] | | [facility] | | | UNIT [...] + + + + | EXPIRATION | [id number] | | [facility] | | | DATE [...] + + + + | BLOOD | [id number] | | [facility] | | | PRODUCT [...] [facility] | [address] | [place] [address] | | | SERVICES, | [address] [...] + + + + | PRODUCT | [id number] | | [facility] | | | UNIT [...] + + + + | EXPIRATION | [id number] | | [facility] | | | DATE [...] + + + + | BLOOD | [id number] | | [facility] | | | PRODUCT [...] | + + + + + | [facility] | [address] | [place] [address] | | | SERVICES, | [address] [...] + + | [facility] | [address] | [place] [address] | | | SERVICES, CORE | PARK [...] [facility] | [address] | [place] [address] | | | SERVICES, CORE | PARK [...] [facility] | [address] | [place] [address] | | | ANTONI ANGUIANO | ARMANDO [...] | + + + + + | [facility] | [address] [facility] | [place] [address] | | | ANTONI ANGUIANO | ARMANDO [...] | + + + + + | [facility] | [address] [facility] | [place] [address] | | | SERVICES, CORE | PARK [...] + + + + | PRODUCT | [id number] | | [facility] | | | UNIT [...] + + + + | EXPIRATION | [id number] | | [facility] | | | DATE [...] + + + + | BLOOD | [id number] | | [facility] | | | PRODUCT [...] [facility] | [address] | [place] [address] | | | SERVICES, | [address] [...] 02/03/2014. | LABORATORY | | | SERVICES, ANTONI | + + + + + + + + | Performing | Address | City/State/Zipcode | Phone Number | | Organization | | | | + + + + + | [facility] | [address] [facility] | [place] [address] | | | SERVICES, ANTONI | PARK [...] [facility] | [address] | [place] [address] | | | SERVICES, CORE | PARK [...] [facility] | [address] | [place] [address] | | | SERVICES, CORE | PARK [...] | + + + + + | [facility] | [address] [facility] | [place] [address] | | | SERVICES, CORE | ARMANDO [...] [facility] | [address] | [place] [address] | | | SERVICES, CORE | PARK [...] [facility] | [address] | [place] [address] | | | SERVICES, CORE | PARK [...] [facility] | [address] | [place] [address] | | | SERVICES, CORE | PARK [...] [facility] | [address] | [place] [address] | | | ANTONI ANGUIANO | ARMANDO [...] LABORATORY | [address] | [place] [address] | | | SERVICES, | [address] [...] | + + + + + | [facility] | [address] | [place] [address] | | | SERVICES, CORE | PARK [...] [facility] | [address] | [place] [address] | | | SERVICES, | [address] [...] sedimentation rate. | LABORATORY | | | ANTONI ANGUIANO | + + + + + + + + | Performing | Address | City/State/Zipcode | Phone Number | | Organization | | | | + + + + + | [facility] | [address] [facility] | [place] [address] | | | ANTONI ANGUIANO | [address] | | | + + + + + CULTURE, BLOOD BACTI & YEAST [facility] (03/23/2018 4:40 PM PDT) + + + [...] [facility] | [address] | [place] [address] | | | SERVICES, CORE | PARK [...] [facility] | [address] | [place] [address] | | | SERVICES, CORE | ARMANDO [...] | + +---+ | | | | [id number] | | | (SPECIAL MOUTHWASH) suspension | [...]
--- OUTSIDE RECORDS SUMMARY | ~2019-01-30 | XMS | Encounter Summary ---
Demographics + + + | Address | [address] | | | [place] [address] | + + + | Home Phone [...] Team Providers + +------+ + | Care Nursing Director Name | Role | Phone | [...] | | | | | Sarahy Conner [place], | | | | | | [place] [address] | | | +--------+--------+ + + + [...] Ave | | | | | | [place], [place] | | | | | | [address] | | | | | | [phone] | | | | | | | | +--------+ + + + + | 03/25/ | Office | Orthopedics | Lynda Basurto, | | | 2018 | Visit | | [address] | | | | | | [address] | | | | | | [place], [place] | | | | | | [address] | | | | | | [phone] | | | | | | | | +--------+ + + + + | 03/25/ | Office | Hematology & | Sandra Patel MD | | | 2018 | Visit | Oncology | [address] | | | | | | [place], [place] | | | | | | [address] | | | | | | [phone] | | | | | | | | +--------+ + + + + documented as of this encounter Visit Diagnoses Not on filedocumented in this encounter"
--- OUTSIDE RECORDS SUMMARY | ~2019-01-30 | XMS | Encounter Summary ---
Demographics + + + | Address | [address] | | | [place] [address] | + + + | Home Phone [...] Author | [facility] | + + + | Organization | [facility] | + + + | Address | Unknown | + + + | Phone | Unavailable | + + + Support + + +---------+ + | Name | Relationship | Address | Phone | + + +---------+ + | Kika Cage | ECON | Unknown | | + + +---------+ + Care Team Providers + +------+ + | Care Customer Experience Strategist Name | Role | Phone | + [...] | | | | | sarcoma | [address] | | | | | | ([facility]) | Ave | | | | | | Procedures | [place], [place] | | | | | | TRANSTHORACI | [address] | | | | | | C | Phone: | | | | | | ECHOCARDIOGR | [phone] | | | | | | AM WITH | Fax: | | | | | | STRAIN - | [phone] | | | | | | CARDIO [...] | 2018 | on | [facility] at [facility] | [address] | | | | | for Health & Healing | [place], [place] | | | | | [address] | [address] | | | | | Mailcode: [facility] | [phone] | | | | | for Health and | | | | | | Healing, [address] | | | | | | [place], [place] | | | | | | [address] | | | | | | [phone] | | | +--------+ + + + [...] [address] | | | | | | [place], [place] | | | | | | [address] | | | | | | [phone] | | | | | | | | +--------+ + + + + | 03/25/ | Office | Orthopedics | Lynda Basurot, | | | 2018 | Visit | | [address] | | | | | | [address] | | | | | | [place], [place] | | | | | | [address] | | | | | | [phone] | | | | | | | | +--------+ + + + + | 03/25/ | Office | Hematology & | Sandra Patel MD | | | 2018 | Visit | Oncology | [address] | | | | | | [place], [place] | | | | | | [address] | | | | | | [phone] | | | | | | | | +--------+ + + + + + +------+--------+ + + | Name | Type | Priori | Associated Diagnoses | Order Schedule | | | | ty | | | + +------+--------+ + + | TRANSTHORACIC | ECG | Routin | Synovial sarcoma | Ordered: 01/28/2018 | | ECHOCARDIOGRAM WITH | | e | ([facility]) | | | STRAIN - CARDIO | [...]
--- OUTSIDE RECORDS SUMMARY | ~2019-01-30 | XMS | Encounter Summary ---
Demographics + + + | Address | [address] | | | [place] [address] | + + + | Home Phone [...] Team Providers + +------+ + | Care Hearing Aid Repair Technician Name | Role | Phone [...] Other (Letter) | | 2019 | | [facility] [address] | [address] [facility] | | | | | [place] Mailcode: CH12A | [facility] | | | | | [facility] | [place], [place] | | | | | and [facility], | [address] | | | | | Floor [place], [place] | [phone] | | | | | [address] | | | | | | [phone] | | | +--------+ + + + [...] [address] | | | | | | [place], [place] | | | | | | [address] | | | | | | [phone] | | | | | | | | +--------+ + + + + | 03/25/ | Office | Orthopedics | Rosy BasurtoRegiotto, | | | 2018 | Visit | | [address] | | | | | | [address] | | | | | | [place], [place] | | | | | | [address] | | | | | | [phone] | | | | | | | | +--------+ + + + + | 03/25/ | Office | Hematology & | Sandra Patel MD | | | 2018 | Visit | Oncology | [address] | | | | | | [place], [place] | | | | | | [address] | | | | | | [phone] | | | | | | | | +--------+ + + + + documented as of this encounter Visit Diagnoses Not on filedocumented in this encounter"
--- OUTSIDE RECORDS SUMMARY | ~2019-01-30 | XMS | Encounter Summary ---
Demographics + + + | Address | [address] | | | [place] [address] | + + + | Home Phone [...] Providers + +------+ + | Care Pants Cutter Name | Role | Phone | + +------+ + | Santo Gooden MD | PCP | | + +------+ + Encounter Details +--------+ + + + + | Date | Type | Department | Care Team | Description | +--------+ + + + + | 03/27/ | Procedure | 6A Intra Op [facility] | | | | 2017 | Pass | [facility] | | | | | | Admitting Desk | | | | | | Located on the 9th | | | | | | floor [address] [facility] | | | | | | [facility] | | | | | | [place], [place] | | | | | | [address] | | | +--------+ + + + [...] | | | 2018 | | | [address] | | | | | | [place], [place] | | | | | | [address] | | | | | | [phone] | | | | | | | | +--------+ + + + + | 03/25/ | Office | Orthopedics | Lynda Basurto, | | | 2018 | Visit | | [address] | | | | | | [address] | | | | | | [place], [place] | | | | | | [address] | | | | | | [phone] | | | | | | | | +--------+ + + + + | 03/25/ | Office | Hematology & | Sandra Patel MD | | | 2019 | Visit | Oncology | [address] | | | | | | [place], [place] | | | | | | [address] | | | | | | [phone] | | | | | | | | +--------+ + + + + documented as of this encounter Visit Diagnoses Not on filedocumented in this encounter"
--- OUTSIDE RECORDS SUMMARY | ~2019-01-30 | XMS | Encounter Summary ---
Demographics + + + | Address | [address] | | | [place] [address] | + + + | Home Phone [...] Team Providers + +------+ + | Care Stave And Bolt Equalizer Name | Role | Phone | + [...] | | 2018 | | [facility] at [facility] | | | | | | [facility] | | | | | | [address] | | | | | | Mailcode: [facility] | | | | | | for Health and | | | | | | [facility] | | | | | | [place], [place] | | | | | | [address] | | | | | | [phone] | | | +--------+ + + + [...] | | | | | | [facility] [place] | | | | | | [address] | | | | | | [phone] | | | | | | | | +--------+ + + + + | 03/25/ | Office | Orthopedics | Lynda Basurto, | | | 2018 | Visit | | [address] | | | | | | [address] | | | | | | [place], [place] | | | | | | [address] | | | | | | [phone] | | | | | | | | +--------+ + + + + | 03/25/ | Office | Hematology & | Sandra Patel MD | | | 2019 | Visit | Oncology | [address] | | | | | | [facility] [place] | | | | | | [address] | | | | | | [phone] | | | | | | | | +--------+ + + + + documented as of this encounter Visit Diagnoses Not on filedocumented in this encounter"
--- OUTSIDE RECORDS SUMMARY | ~2019-01-30 | XMS | Encounter Summary ---
Demographics + + + | Address | [address] | | | [place] [address] | + + + | Home Phone [...] Team Providers + +------+ + | Care Safety Supervisor Name | Role | Phone | + +------+ + | Santo Gooden MD | PCP | | + +------+ + Reason for Visit + + + | Reason | Comments | + + + | Procedure | | + + + PROC - Dept/Practice Procedure (Routine) +--------+--------+ + + + + | Status | Reason | Specialty | Diagnoses / | Referred By | Referred To | | | | | Procedures | Contact | Contact | +--------+--------+ + + + + | Closed | | Surgical | Procedures | Jorge | Zak Loredo | | | | Oncology | CPT 95238 | Sandra Schmitt MD | [address] | | | | | | [address] | [address] | | | | | | Ave | [address] | | | | | | [place], [place] | [place], [place] | | | | | | [address] | [address] | | | | | | Phone: | Phone: | | | | | | [phone] | [phone] | | | | | | Fax: | Fax: | | | | | | [phone] | [phone] | +--------+--------+ + + + + Encounter Details +--------+ + + + + | Date | Type | Department | Care Team | Description | +--------+ + + + + | 08/15/ | Procedure | Surgical Oncology | Zak Loredo MD | Procedure | | 2018 | | at [facility] [address] | [address] | | | | | [address] Mail Code: | [address] [place], | | | | | [facility] | [place] [address] | | | | | and Healing, | [phone] | | | | | [address] | | | | | | [place], [place] | | | | | | [address] | | | | | | [phone] | | | +--------+ + + + [...] + + + | Blood Pressure | 129/80 | 08/15/2018 2:16 PM | | | | | PST | | + + + + + | Pulse | 98 | 08/15/2018 2:16 PM | | | | | PST | | + + + + + | Temperature | 36.3 C (97.4 F) | 08/15/2018 2:16 PM | | | | | PST | | + + + + + | Respiratory Rate | 16 | 08/15/2018 2:16 PM | | | | | PST | | + + + + + | Oxygen Saturation | 99% | 08/15/2018 2:16 PM | | | | | PST | | + + + + + | Inhaled Oxygen | - | - | | | Concentration | | | | + + + + + | Weight | 153.1 kg (337 lb 8 | 08/15/2018 2:16 PM | | | | oz) | PST | | + + + + + | Height | - | - | | + + + + + | Body Mass Index | 51.32 | 04/24/2018 2:04 PM | | | [...] of this encounter Patient Instructions Patient Instructions Leia Camarillo RN - 08/15/2018 2:00 PM PSTOncology Patient Informat ion Home Care for Wounds WOUND CARE *Keep wound dry and clean. *Leave steri-strip tapes on until your next appointment or remove after two weeks if they a re still present. *Apply ice intermittently to the affected area for the first 24 hours. DIET AND MEDICATIONS *Eat your normal diet and take your usual medicines unless told otherwise by your doctor. *Do not drive or drink alcoholic beverages while taking narcotics. CALL YOUR DOCTOR IF *Call your doctor right away if you have any of the following: *Increased redness *Swelling *Hardness or Firmness *Fever above 101 F *Increased bleeding *Increased Pain not relieved by medicine *Pus *Red streaks *Foul odor *Tenderness documented in this encounter Progress Notes Zak Loredo MD - 08/15/2018 2:00 PM PSTSurgical Oncology Clinic Visit/Procedure Note Date: 08/15/2018 S: Ms Cage has completed therapy and wishes to have the Smartport removed. O: [place] Port A/P : We plan port removal under local in the procedure room. The procedure alternatives a nd risks were reviewed and all questions were answered. A consent form was signed and the pr ocedure was commenced after a time-out and team pause were completed. Procedure Note: Attending Surgeon: Zak Loredo MD Community Liaison(s): Preoperative Diagnosis: Sarcoma Postoperative Diagnosis: Same Procedure: Excision of 10-Azerbaijani Dual Lumen SmartPort system from right side Anesthesia: 1% Xylocaine local. 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 Specimen Removed: 10-Azerbaijani Dual lumen SmartPort system, discarded. Procedure In Detail: The patient was identified and taken to the minor surgery suite. Info rmed consent was obtained. A surgical team pause was held. She was placed in the minor [facility] table in supine position. The right infraclavicular region was prepared and draped in sterile fashion. 1% Xylocaine was infiltrated into her port scar and additional lidocaine w as infiltrated into the port pocket through the anesthetized skin. The port scar was opened with a 15 blade. Electrocautery on cut was used to dissect through the subcutaneous tissue s until I encountered the catheter sheath. This was opened longitudinally with electrocaute ry on cut and traced back to the port pocket, which was opened for the full width and height of the port. The port was enucleated from the pocket and withdrawn from the patient with t he catheter to follow. Bleeding was controlled with electrocautery. The incision was close d with interrupted 3-0 Vicryl deep dermal sutures, followed by running 4-0 Biosyn subcuticul ar suture. Sterile dressings were applied. Estimated blood loss was minimal. She tolerate d the procedure well. She was discharged home in good condition. The port was discarded. documented in this encou nter Plan of [...] [place] | | | | | | [address] | | | | | | [phone] | | | | | | | | +--------+ + + + + | 03/25/ | Office | Orthopedics | Lynda Basurto, | | | 2018 | Visit | | [address] | | | | | | [address] | | | | | | [place], [place] | | | | | | [address] | | | | | | [phone] | | | | | | | | +--------+ + + + + | 03/25/ | Office | Hematology & | Sandra Patel MD | | | 2018 | Visit | Oncology | [address] | | | | | | [place], [place] | | | | | | [address] | | | | | | [phone] | | | | | | | | +--------+ + + + + documented as of this encounter Visit Diagnoses + + | Diagnosis | + + | 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
--- OUTSIDE RECORDS SUMMARY | ~2019-01-30 | XMS | Encounter Summary ---
Demographics + + + | Address | [address] | | | [place] [address] | + + + | Home Phone [...] Team Providers + +------+ + | Care Sql Analyst Name | Role | Phone | + +------+ + | Santo Gooden MD | PCP | | + +------+ + Reason for Visit + + + | Reason | Comments | + + + | Foot pain | | + + + | Foot swelling | | + + + | Medication requested | Pain Meds | + + + Encounter Details +--------+ + + + + | Date | Type | Department | Care Team | Description | +--------+ + + + + | 01/16/ | Telephone | Orthopaedics at | Lynda Basurto, | Foot pain; Foot | | 2018 | | [facility] [address] | [address] | swelling; Medication | | | | Ave Mailcode: CH12A | [address] | requested (Pain | | | | [place] [facility] | [place], [place] | Meds ) | | | | and Healing, | [address] | | | | | Floor [place], [place] | [phone] | | | | | [address] | | | | | | [phone] | | | +--------+ + + + [...] | | | 2018 | | | [address] | | | | | | [place], [place] | | | | | | [address] | | | | | | [phone] | | | | | | | | +--------+ + + + + | 03/25/ | Office | Orthopedics | Rosy BasurtoAlexander, | | | 2018 | Visit | | [address] | | | | | | [address] | | | | | | [place], [place] | | | | | | [address] | | | | | | [phone] | | | | | | | | +--------+ + + + + | 03/25/ | Office | Hematology & | Sandra Patel MD | | | 2018 | Visit | Oncology | [address] | | | | | | [place], [place] | | | | | | [address] | | | | | | [phone] | | | | | | | | +--------+ + + + + documented as of this encounter Visit Diagnoses Not on filedocumented in this encounter"
--- OUTSIDE RECORDS SUMMARY | ~2019-01-30 | XMS | Encounter Summary ---
Demographics + + + | Address | [address] | | | [place] [address] | + + + | Home Phone [...] Providers + +------+ + | Care Hand Stoner Name | Role | Phone | + +------+ + | Santo Gooden MD | PCP | | + +------+ + Encounter Details +--------+ + + + + | Date | Type | Department | Care Team | Description | +--------+ + + + + | 03/24/ | Procedure | 6A Intra [facility] | | | | 2017 | Pass | [facility] | | | | | | Admitting Desk | | | | | | Located on the 9th | | | | | | floor [address] [facility] | | | | | | [facility] | | | | | | [place], [place] | | | | | | [address] | | | +--------+ + + + [...] | | | 2018 | | | [address] | | | | | | [place], [place] | | | | | | [address] | | | | | | [phone] | | | | | | | | +--------+ + + + + | 03/25/ | Office | Orthopedics | Lynda Basurto, | | | 2018 | Visit | | [address] | | | | | | [address] | | | | | | [place], [place] | | | | | | [address] | | | | | | [phone] | | | | | | | | +--------+ + + + + | 03/25/ | Office | Hematology & | Sandra Patel MD | | | 2019 | Visit | Oncology | [address] | | | | | | [place], [place] | | | | | | [address] | | | | | | [phone] | | | | | | | | +--------+ + + + + documented as of this encounter Visit Diagnoses Not on filedocumented in this encounter"
--- OUTSIDE RECORDS SUMMARY | ~2019-01-30 | XMS | Encounter Summary ---
Demographics + + + | Address | [address] | | | [place] [address] | + + + | Home Phone [...] Team Providers + +------+ + | Care Weatherization Technician Name | Role | Phone | + +------+ + | Santo Gooden MD | PCP | | + +------+ + Encounter Details +--------+ + + + + | Date | Type | Department | Care Team | Description | +--------+ + + + + | 03/31/ | Procedure | Diagnostic Imaging | | | | 2018 | Pass | Services at [facility] | | | | | | [address] | | | | | | [facility] | | | | | | Mailcode: [address] [facility] | | | | | | [facility], | | | | | | [place] [address] | | | | | | [phone] | | | +--------+ + + + [...] | | | 2018 | | | [address] | | | | | | [place], [place] | | | | | | [address] | | | | | | [phone] | | | | | | | | +--------+ + + + + | 03/25/ | Office | Orthopedics | Lynda Basurto, | | | 2018 | Visit | | [address] | | | | | | [address] | | | | | | [place], [place] | | | | | | [address] | | | | | | [phone] | | | | | | | | +--------+ + + + + | 03/25/ | Office | Hematology & | Sandra Patel MD | | | 2019 | Visit | Oncology | [address] | | | | | | [place], [place] | | | | | | [address] | | | | | | [phone] | | | | | | | | +--------+ + + + + documented as of this encounter Visit Diagnoses Not on filedocumented in this encounter"
--- OUTSIDE RECORDS SUMMARY | ~2019-01-30 | XMS | Encounter Summary ---
Demographics + + + | Address | [address] | | | [place] [address] | + + + | Home Phone [...] Providers + +------+ + | Care Business Affairs Manager Name | Role | Phone | + +------+ + | Santo Gooden MD | PCP | | + +------+ + Encounter Details +--------+ + + + + | Date | Type | Department | Care Team | Description | +--------+ + + + + | 03/24/ | Procedure | 6A Intra Op [facility] | | | | 2017 | Pass | [facility] | | | | | | Admitting Desk | | | | | | Located on the 9th | | | | | | floor [address] [facility] | | | | | | [facility] | | | | | | [address], [place] | | | | | | [address] | | | +--------+ + + + [...] | | | 2018 | | | [address] | | | | | | [place], [place] | | | | | | [address] | | | | | | [phone] | | | | | | | | +--------+ + + + + | 03/25/ | Office | Orthopedics | Lynda Basurto, | | | 2018 | Visit | | [address] | | | | | | [address] | | | | | | [place], [place] | | | | | | [address] | | | | | | [phone] | | | | | | | | +--------+ + + + + | 03/25/ | Office | Hematology & | Sandra Patel MD | | | 2019 | Visit | Oncology | [address] | | | | | | [place], [place] | | | | | | [address] | | | | | | [phone] | | | | | | | | +--------+ + + + + documented as of this encounter Visit Diagnoses Not on filedocumented in this encounter"
--- OUTSIDE RECORDS SUMMARY | ~2019-01-30 | XMS | Encounter Summary ---
Demographics + + + | Address | [address] | | | [place] [address] | + + + | Home Phone [...] Team Providers + +------+ + | Care Silk Spotter Name | Role | Phone | + [...] SW | | | | | | ([facility]) | [address] | | | | | | Procedures | Sarahy Conner | | | | | | PHYSICAL | [place], [place] | | | | | | THERAPY | [address] | | | | | | REFERRAL | Phone: | | | | | | PHYSICAL | [phone] | | | | | | THERAPY | Fax: | | | | | | REFERRAL | [phone] | | + +--------+ + + + [...] | | | | | Procedures | [facility] | [facility] | | | | | PHYSICAL | Rd | for Health | | | | | THERAPY | [place], [place] | and Healing, | | | | | REFERRAL | [address] | 1st floor | | | | | | Phone: | [place], [place] | | | | | | [phone] | [address] | | | | | | Fax: | Phone: | | | | | | [phone] | [phone] | | | | | | | Fax: | | | | | | | [phone] | +--------+--------+ + + + + Consultation (Routine) +--------+--------+ + + + + | Status | Reason | Specialty | Diagnoses / | Referred By | Referred To | | | | | Procedures | Contact | Contact | +--------+--------+ + + + + | Closed | | Orthopedics | Procedures | Abner, | Kellee | | | | | CONSULT TO | Ladarius Rodgers, | MD Cal | | | | | ADULT | AGACNP [address] | [address] | | | | | AMPVIVIENNEE | [address] | [address] | | | | | ORTHOPEDICS | [address] | [address] [place], | | | | | | | [place] | | | | | | [place], [place] | [address] | | | | | | [address] | Phone: | | | | | | Phone: | [phone] | | | | | | [phone] | Fax: | | | | | | Fax: | [phone] | | | | | | [phone] | | +--------+--------+ + + + + [...] | | | | | THERAPY | [place], [place] | and Healing, | | | | | REFERRAL | [address] | 1st floor | | | | | | Phone: | [place], [place] | | | | | | [phone] | [address] | | | | | | Fax: | Phone: | | | | | | [phone] | [phone] | | | | | | | Fax: | | | | | | | [phone] | +--------+--------+ + + + + Consultation [...] | | AMPUTEE | [address] | [facility] | | | | | ORTHOPEDICS | [facility] | Rd [place], | | | | | | Rd | [place] | | | | | | [place], [place] | [address] | | | | | | [address] | Phone: | | | | | | Phone: | [phone] | | | | | | [phone] | Fax: | | | | | | Fax: | [phone] | | | | | | [phone] | | +--------+--------+ + + + + [...] + + | 02/06/ | Hospital | [facility] [address] | Lynda Basurto, | | | 2018 - | Encounter | [address] | [address] | | | | | ANITA DOVE | [address] | | | 02/11/ | | [place] [address] | [place], [place] | | | 2018 | | [phone] | [address] | | | | | | [phone] | | | | | | | [...] Dean DO - 02/11/2018 12:26 PM PDT [facility] DEPARTMENT OF ORTHOPAEDICS & REHABILITATION INPATIENT HOSPITAL DISCHARGE SUMMARY & INTERDISCIPLINARY INSTRUCTIONS Patient: Annika Cage CSN: [id number] Admission Date: 02/06/2018 Discharge Date: 02/11/2018 Attending Physician: Lynda Basurto MD PCP: Santo Gooden MD Service: [facility] Orthopaedics & Rehabilitation Diagnoses Principal Final [...] they suspect your wound is infected. Call [facility] Orthopedics first at [phone]. Activity Non-weight bearing on left leg. Restrictions: no range of motion restrictions. Encourage to perform extension exercises on left leg. OK to use knee scooter Condition on Discharge Stable Follow-Up Appointments ORTHOPEDICS OUTPATIENT CLINIC: 02/19/2018 2:20 PM Lynda Basurto [facility] Orthopaedics & Rehabilitation [phone] [place] PCP: As needed for any medical [...] administration instructions. - Call Orthopedic Clinic at [phone] if any persistent, localized swelling that does [...] and ask for the orthopaedic surgery resident clean up person. Additional Post-Op Instructions / What to Expect [...] feel that you will need more, call [phone] during business hours in order to get [...] Pierre Dean DO Orthopedic Surgery Resident Pager [phone] [facility] Department of Orthopaedics & Rehabilitation [address] [place] [address] Mail Code: OP31 [facility] [address] documented in this e ncounter Discharge Instructions Instructions FerchoLanette philippe, SQUEEZER OPERATOR - 02/07/2018AMPUTEE RESOURCES: http://www.[employer]/newsageCrowdpatient/ampower/Pages/Home.aspx http://www.[employer]/new-patient/ampower/ed-resources/Pages/Bsgpq-anx-Utzzoqdsrq.asp x http://www.fgzve0vblg.org.au/news-events/news/gkxznnrje-lmjxfz-mplymfbpkv-pp-smuh-jyczvrjw- qan-gehie-tbopfmxy MENTAL HEALTH/SUICIDE PREVENTION RESOURCES [facility] in [facility] is a 24-hour behavioral and mental health services center, providing immediate psychi atric care and a path to recovery for people experiencing a mental health crisis. Address: [facility], [address] [place] [address] Hours: 24 hours/day, 7 days a week, no appointment needed NATIONAL CRISIS LINES 25/03 National Suicide Prevention Lifeline 5-799-700-TALK (0483) Hearing and Speech Impaired 7-573-961-4TTY (9336) 25/03 Mental Health Treatment Referral Line [phone] ([phone]) [facility] CRISIS SERVICES For emergencies or life threatening situations, please call [facility] Mental Health Crisis Line [phone] (24 hours a day, 7 days a week) [facility] Mental health services for adults, children, and families; walk-ins welcome. Access informa tion and referral line for [facility]'s services in housing, recovery and assistance. Address: [facility] Clinic/Referral service [address] [place] [address] (Near [address] [place] [address]) [place], [address] Transit: RoomActually bus #4 Hours: 7 a.m.-10:00 p.m, 7 [...] Practitioner Acute Pain Service [facility] [address] [place] [address] Pierre Purcell DO - 08/2018 6:46 AM PDT [facility] DEPARTMENT OF ORTHOPAEDICS & REHABILITATION PROGRESS NOTE [...] Pierre Dean DO Orthopedic Surgery Resident Pager [phone] Pierre Purcell DO - 07/2018 11:43 AM PDT [facility] DEPARTMENT OF ORTHOPAEDICS & REHABILITATION PROGRESS [...] Pierre Dean DO Orthopedic Surgery Resident Pager [phone] Jesusita Villavicencio NP - 02/10/2018 11:24 AM PDT INPATIENT [...] PUMP) injection CON TINUOUS 6 mL/hr at 06/11/18 0600 Pump Infusion: Ropivacaine 0.2% at 6 [...] recommendations with primary care team provider Thania RN and Srikanth Foster NP Orthopedic Surgery . Jesusita Mccullough NP Adult Pain Service Pager [phone] Team Pager [phone] Pierre Purcell DO - 02/09/2018 1:34 PM PDT [facility] DEPARTMENT OF ORTHOPAEDICS & REHABILITATION PROGRESS NOTE [...] Pierre Dean DO Orthopedic Surgery Resident Pager [phone] John Crawley - 02/10/20 18 12:59 PM PDTTransthoracic echocardiogram completed. Final report [...] NERVE BLOCK PROGRESS NOTE 02/09/2018 Author: EMILY STREET MD Adult Pain Service Attending Physician: Emily [...] and summary of old medical records (source: [employer]), as summarized in the body of the note. Discussion of case with another healthcare provider nurse. Please page APS #[phone] with questions and concerns. EMILY STREET MD Emily Lindsay MD - 02/08/2018 9:45 AM PDTFormatting of this note might be different f rom the original. INPATIENT ADULT PAIN SERVICE PERIPHERAL NERVE BLOCK PROGRESS NOTE 02/08/2018 Author: EMILY STREET MD Adult Pain Service Attending Physician: Emily [...] and summary of old medical records (source: [employer] What [employer]), as summarized in the body of the note. Discussion of case with another healthcare provider nurse. Please page APS #[phone] with questions and concerns. EMILY STREET MD Naeem Cleaning MD - 02/08/2018 9:05 AM PDTFormatting of this note might be different from the origi nal. [facility] DEPARTMENT OF ORTHOPAEDICS & REHABILITATION PROGRESS NOTE [...] discharge. HAYDE FLORES MD Orthopaedics PGY-3 Pager: [phone] oGualberto ulloa MD - 02/08/2018 8:57 AM PDTPt sleeping PE: Ht 1.727 m (5' 8"), Wt 139.7 kg (308 lb), BP 121/61, Pulse 89, Temperature 36.9 C (98.4 F), RR 18, SpO2 98%, BMI 46.83 kg/(m^2). 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 HAYDE FLORES MD Orthopaedics PGY-3 Pager: [phone] t Madiha Lopez, HANDBAG OPERATOR - 02/07/2018 7:54 AM PDTFormatting of this note might be different from the vic blade. 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 No kids. Lives with her mother Kika. [...] by primary care team. Madiha Rebollar DNP, HANDBAG OPERATOR-C Adult Pain Service [facility] [address] [place] [address], [place] [address] atricio Giles MD - 02/07/2018 7:18 AM PDTGold Surgery Brief Progress Note ID: Annika Cage is a 32 y.o. 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 No pneumothorax. A/P Uneventful port a cath placement. OK to use. Contact gold surgery with questions or concerns Remainder of care per primary team Dior Giles MD General Surgery [id number] signed by Patricio Giles MD at 02/07/2018 7:21 AM PD TDalma deliagLynda MD - 02/07/2018 6:51 AM PDTPt says [...] Cleaning MD - 02/06/2018 5:31 PM PDT [facility] DEPARTMENT OF ORTHOPAEDICS & REHABILITATION PROGRESS NOTE [...] discharge. HAYDE FLORES MD Orthopaedics PGY-3 Pager: [phone] documente d in this encounter Plan of Treatment +--------+ + + + + | Date | Type | Specialty | Care Team | Description | +--------+ + + + + | 03/25/ | Appointment | Radiology | Sandra Patel MD | | | 2018 | | | [address] | | | | | | [place], [place] | | | | | | [address] | | | | | | [phone] | | | | | | | | +--------+ + + + + | 03/25/ | Office | Orthopedics | Sb GallegosShirley, | | | 2018 | Visit | | [address] | | | | | | [address] | | | | | | [place], [place] | | | | | | [address] | | | | | | [phone] | | | | | | | | +--------+ + + + + | 03/25/ | Office | Hematology & | Sandra Patel MD | | | 2018 | Visit | Oncology | [address] | | | | | | [place], [place] | | | | | | [address] | | | | | | [phone] | | | | | | | [...] rmed At | + +------ + | [facility] | [facility] DEPT OF | | [facility] Adult Echocardiography | ANJEL MYRICK | | Laboratory [facility] | | | [place] [address] Pt Name: | | | ANNIKA CAGE Study Date/Time 02/09/2018 / 11:45:04 | | | AMMRN: [id number] Most recent | | | prior: -Acc #: [id number] No. previous | | | echos: 0DOB: 1985 32 years Heart Rate: | | | 78 bpmHeight: 68.0 in Blood | | | Pressure: 121/61 mm/HgWeight: 308.0 | | | lb Gender: | | | FBSA: 2.46 m2 Order | | | ID: [id number] Press Feeder Broomcorn: John Gonzalez MA, | | | RDCSSonographer 2:Referring Provider: Lynda Pastor Location: | | | 9KModalities Performed: [...] 3D | | | LVEF+ + +-------+-------+02/09/2018 | | | 5.6 % -18.4 %67.0 [...] | indexed values Report electronically signed by: [id number] Justin | | | Malachi DIAS (02/09/2018, 3:09:17 PM) Final | | |Report electronically signed by: [id number] Justin Ly MD (02/09/2018, 3:09:17 | | |PM) | | | | | | | | | | | | Final | | + +------ + + + | Procedure Note | + + | Interface, Cardiology Results - 02/09/2018 3:09 PM [facility] | | [facility] Echocardiography Laboratory [address] [place] [address] | | [place], [place] [address] Pt Name: ANNIKA WILKERSON | | NILES Study Date/Time 02/09/2018 / 11:45:04 AMMRN: [id number] Most | | recent prior: -Acc #: [id number] No. previous echos: 0DOB: 1985 32 | | years Heart Rate: 78 bpmHeight: 68.0 in Blood Pressure: 121/61 | | mm/HgWeight: 308.0 lb Gender: FBSA: 2.46 m2 | | Order ID: [id number] Press Feeder Broomcorn: John Gonzalez MA, RDCSSonographer | | 2:Referring [...] values Report | | electronically signed by: [id number] Justin Ly MD (02/09/2018, 3:09:17 PM) | [...] | | | |Report electronically signed by: [id number] Justin Ly MD (02/09/2018, 3:09:17 | |PM) | | | | | | | | Final | + + + + + + + | Performing | Address | City/State/Zipcode | Phone Number | | Organization | | | | + + + + + | [facility] | [address] | [place], [place] | | | CARDIOLOGY | [address] | [address] | | + + + + + [...] | + + + + + | [facility] | [address] | [place] [address] | | | SERVICES, CORE | PARK [...] | | | LABORATORY | | | TONGAN | | | SERVICES, | | | [...] | + + + + + | [facility] | [address] | [place] [address] | | | SERVICES, CORE | SARAHY [...] Preoperative | | | Diagnosis: need for mcc central venous access Postoperative | | | [...] | | Attending Surgeon: Lynda Basurto MD Maintenance Painter Apprentice(s): Hayde | | Mike Flores MD. Preoperative [...] | DARIUS/SHANIAD: 02/06/2018 15:36:23DT: 02/06/2018 19:40:30Job #: [id number] | + + X-RAY PORTABLE CHEST 1 VIEW (02/06/2018 4:54 PM PDT) + + | Specimen | + + | | + + + + + | Narrative | Performed At | + + + | EXAM: CT CHEST 1 VIEW HISTORY: s/p port placement [...] Interface - 02/06/2018 5:11 PM PDT EXAM: CT CHEST 1 | | VIEW HISTORY: s/p [...] Flores MD 02/06/2018 3:58 PM [facility] & | | | [facility] Department of Orthopaedics & Rehabilitation | | | BRIEF OPERATIVE NOTE | | | Patient: Annika Cage | | | | | | CSN: [id number] | | | Date: 02/06/2018 | | | Attending | | | Surgeon: Lynda Basurto MD Maintenance Painter Apprentice(s): 1. HAYDE FLORES, | | | Preoperative [...] Saturday HAYDE FLORES MD | | | [facility] [employer] | | | [place] Department of Orthopaedics & Rehabilitation [address] [place] [address] | | | [facility] Mail Code: [address] [phone] | | | Pager: [phone] | | + + + CAPILLARY BLOOD [...] + + | [facility] | [address] | [place], [place] | | | MINNIE OSORIO OF [facility] | [address] | [address] | | | TESTS | | | [...] | | | | | | biopsy ([id number]). Case | | | | | | [...] biopsy | | | | | | [id number]). Please | | | | | | [...] | | | | | | number [id number]. Left | | | | | | [...] stitch. | | | | | | Utility Maintenance Worker sections | | | | | | [...] | | | | | | underlying vdfyaP33-O26, | | | | | | composite section of | | | | | | posterior tumor | | | | | | bydmwlsL51-J62, | | | | | | additional composite | | | | | | section of wuqwpW24-R00, | | | | | | additional composite | | | | | | section of rredrJ30-N59, | | | | | | additional composite | | | | | | section of rrwioU36-K60, | | | | | | additional composite | | | | | | section of tumor | | | | | | A31-A32, composite | | | | | | section of anterior | | | | | | jukjcJ26, uninvolved | | | | | | skin and soft tissue | | | | | | adjacent to anterior | | | | | | mneluO48, uninvolved | | | | | | skin and soft tissue | | | | | | adjacent to posterior | | | | | | nitkyM89, underlying | | | | | | bone with attached soft | | | | | | hybhyaP59, navicular and | | | | | | medial cuneiform bones | | | | | | and kvhlyP83, navicular | | | | | | [...] | + + + + + | [facility] | [address] | [place] [address] | | | PATHOLOGY | [address] | | | + + + + + PROCEDURE NOTE (02/06/2018 2:20 PM PDT) + + + | Narrative | Performed At | + + + | Macie Y Loredo, MD 02/06/2018 2:37 PM PATIENT NAME: Annika | | | Rhea Cage [facility] MR#: [id number] : 1985 Date: 02/06/2018 | | | Attending Surgeon: Macie Loredo MD Maintenance Painter Apprentice(s): | | | Jan Giles MD Preoperative [...] | | | unit. Macie Loredo MD Cloth Folder Machine Division of | | | Surgical Oncology Thyroid and Parathyroid Center [facility] | | + + + X-RAY [...] [facility] | [address] | [place], [place] | | | MINNIE OSORIO OF CARE | [address] | [address] | | | TESTS | | | [...] Mass of left foot | + + documented in this encounter [...] | acetaminophen (TYLENOL) tablet | Given | 02/08/20 | 650 mg | | | | 325-650 mg 325-650 mg, oral, | | 18 5:36 | | | | | EVERY 4 HOURS NEEDED, Starting | | AM PDT | | | | | Bettie 02/06/18 at 2027, Until Fri | | | | | | | 02/07/18 at 1225, mild pain, | | | | | | | multimodal pain control | | | | | | + +-------+ +--------+---+---+ +-------+ +--------+---+---+ | Given | 02/07/20 | 650 mg | | | | | 18 8:35 | | | | | | PM PDT | | | | +-------+ +--------+---+---+ + +---+ | | | + +---+ | acetaminophen (TYLENOL) tablet | | | 1 dose, Starting Bettie 02/06/18 at | | | 2030, Until Bettie 02/06/18 at 2034 | | + +---+ | | | + +---+ + +-------+ +--------+---+---+ | aspirin EC tablet 325 mg 325 | Given | 02/12/20 | 325 mg | | | | mg, oral, DAILY, First dose on | | 18 8:57 | | | | | 02/07/18 at 0900, Until | | AM PDT [...] gram in dextrose | New Bag | 02/08/20 | 2 g | 200 | | | (RTU) 2 g, intravenous, EVERY 8 | | 18 5:32 | | mL/hr | | | HOURS, 2 doses, First dose on | | AM PDT | | | | | [facility] 02/06/18 at 2145, Last dose on | | | | | | | [facility] 02/07/18 at 0545 | | | | | | + +---------+ +-----+-------+---+ +---------+ +-----+-------+---+ | New Bag | 02/07/20 | 2 g | 200 | | | | 18 11:21 | | mL/hr | | | | PM PDT | | | | +---------+ +-----+-------+---+ +---+---+ | | | +---+---+ + +-------+ +-------+---+---+ | citalopram (CELEXA) tablet 40 | Given | 02/11/20 | 40 mg | | | | mg 40 mg, oral, DAILY, First | | 18 8:16 | | | | | dose on Bettie 02/06/18 at 1745, Until | | PM PDT [...] clonazePAM (KLONOPIN) tablet 1 | Given | 02/07/20 | 1 mg | | | | mg 1 mg, oral, ONCE, 1 dose, Fri | | 18 11:45 | | | | | 02/07/18 at 0000 | | PM PDT | | | | + +-------+ +------+---+---+ +---+---+ | | | +---+---+ + +-------+ +------+---+---+ | clonazePAM (KLONOPIN) tablet 1 | Given | 02/12/20 | 1 mg | | | | mg 1 mg, oral, THREE TIMES DAILY | | 18 12:41 | | | | | NEEDED, Starting 02/07/18 | | PM PDT | | | | | at 1151, Until 02/11/18 at | | | | | | [...] +-------+---+---+ | diphenhydrAMINE (BENADRYL) | Given | 02/10/20 | 25 mg | | | | capsule 25 mg 25 mg, oral, EVERY | | 18 8:53 | | | | | 6 HOURS NEEDED, Starting Sat | | PM PDT | | | | | 02/08/18 at 1420, Until 02/10/18 | | | | | | | at 1127, itching | | | | | | + +-------+ +-------+---+---+ +-------+ +-------+---+---+ | Given | 02/09/20 | 25 mg | | | | | 18 10:22 | | | | | | PM PDT | | | | +-------+ +-------+---+---+ | Given | 02/09/20 | 25 mg | | | | | 18 4:24 | | | | | | PM PDT | | | | +-------+ +-------+---+---+ +---+---+ | | | +---+---+ + +-------+ +--------+---+---+ | fentaNYL (SUBLIMAZE) injection | Given | 02/07/20 | 50 mcg | | | | 50 mcg 50 mcg, intravenous, | | 18 6:49 | | | | | POSTPROCEDURE PRN, 4 doses, | | PM PDT | | | | | Starting Bettie 02/06/18 at 1605, | | | | | | | Until Bettie 02/06/18 at 1849, severe | | | | | | | pain while in Phase I Recovery | | | | | | + +-------+ +--------+---+---+ +-------+ +--------+---+---+ | Given | 02/07/20 | 50 mcg | | | | | 18 6:36 | | | | | | PM PDT | | | | +-------+ +--------+---+---+ | Given | 02/07/20 | 50 mcg | | | | | 18 6:00 | | | | | | PM PDT | | | | +-------+ +--------+---+---+ +---+---+ | | | +---+---+ + +-------+ +--------+---+---+ | gabapentin (NEURONTIN) capsule | Given | 02/08/20 | 300 mg | | | | 300 mg 300 mg, oral, THREE TIMES | | 18 10:07 | | | | | DAILY, First dose on Sat02/06/18 | | AM PDT | | | | | at 2200, Until Discontinued | | | | | | + +-------+ +--------+---+---+ +-------+ +--------+---+---+ | Given | 02/07/20 | 300 mg | | | | | 18 8:37 | | | | | | PM PDT | | | | +-------+ +--------+---+---+ +---+---+ | | | +---+---+ + +-------+ +--------+---+---+ | gabapentin (NEURONTIN) capsule | Given | 02/09/20 | 300 mg | | | | 300 mg 300 mg, oral, TWICE | | 18 8:18 | | | | | DAILY, First dose on Sat02/07/18 | | AM PDT | | | | | at 2100, Until Discontinued | | | | | | + +-------+ +--------+---+---+ +-------+ +--------+---+---+ | Given | 02/08/20 | 300 mg | | | | | 18 9:25 | | | | | | PM PDT | | | | +-------+ +--------+---+---+ +---+---+ | | | +---+---+ + +-------+ +--------+---+---+ | gabapentin (NEURONTIN) capsule | Given | 02/11/20 | 300 mg | | | | 300 mg 300 mg, oral, ONCE, 1 | | 18 11:55 | | | | | dose, Sat02/10/18 at 1130 | | AM PDT | | | | + +-------+ +--------+---+---+ +---+---+ | | | +---+---+ + +-------+ +--------+---+---+ | gabapentin (NEURONTIN) capsule | Given | 02/08/20 | 600 mg | | | | 600 mg 600 mg, oral, DAILY, | | 18 1:01 | | | | | First dose on Sat02/07/18 at 1300, | | PM PDT | | | | | Until Discontinued | | | | | | + +-------+ +--------+---+---+ +---+---+ | | | +---+---+ + +-------+ +--------+---+---+ | gabapentin (NEURONTIN) capsule | Given | 02/11/20 | 600 mg | | | | 600 mg 600 mg, oral, THREE TIMES | | 18 8:48 | | | | | DAILY, First dose on Sat02/08/18 | | AM PDT | | | | | at 1600, Until Discontinued | | | | | | + +-------+ +--------+---+---+ +-------+ +--------+---+---+ | Given | 02/10/20 | 600 mg | | | | | 18 8:53 | | | | | | PM PDT | | | | +-------+ +--------+---+---+ | Given | 02/10/20 | 600 mg | | | | | 18 3:29 | | | | | | PM [...] | | 2030, Until Bettie 02/06/18 at 2036 | | + +---+ [...] +--------+---+---+ | HYDROmorphone (DILAUDID) | Given | 02/07/20 | 0.5 mg | | | | injection 0.2-0.5 mg 0.2-0.5 mg, | | 18 7:05 | | | | | intravenous, POSTPROCEDURE PRN, | | PM PDT | | | | | Starting Bettie 02/06/18 at 1605, | | | | | | | Until Bettie 02/06/18 at 2143, | | | | | | | moderate pain while in Phase I | | | | | | | Recovery | | | | | | + +-------+ +--------+---+---+ +-------+ +--------+---+---+ | Given | 02/07/20 | 0.3 mg | | | | | 18 6:10 | | | | | | PM PDT | | | | +-------+ +--------+---+---+ | Given | 02/07/20 | 0.2 mg | | | | | 18 5:29 | | | | | | PM [...] | | | | | NEEDED, Starting [facility] 02/06/18 at | | | | | | | 2144, Until Sat02/11/18 at 2223, | | | | | | | severe pain | | | | | | + +-------+ +--------+---+---+ +---+---+ | | | +---+---+ + +---------+ +--------+---+---+ | lactated Ringers IV 500 mL, | New Bag | 02/07/20 | 500 mL | | | | intravenous, ONCE, 1 dose, Sat | | 18 6:45 | | | | | 02/06/18 at 1845 | | PM PDT | | | | + +---------+ +--------+---+---+ +---+---+ | | | +---+---+ + +-------+ +-------+---+---+ | loratadine (CLARITIN) tablet 10 | Given | 02/12/20 | 10 mg | | | | mg 10 mg, oral, DAILY, First | | 18 8:57 | | | | | dose on Sat02/06/18 at 1745, Until | | AM PDT [...] 11:21 | | | | | Starting [facility] 02/06/18 at 2144, | | PM PDT [...] | | | | | NEEDED, Starting Sat02/06/18 at | | | | | | | 8, Until Sat02/11/18 at 2223, | | | [...] 02/06/18 at 2047, | | | Until Bettie 02/06/18 at 2048 | | + +---+ | | | [...] 0.2 % in NaCl | Rate/Dos | 02/11/20 | | 0 mL/hr | | | 0.9 % peripheral nerve block | e Change | 18 9:10 | | | | | (CADD PUMP) injection, | | PM PDT | | | | | CONTINUOUS, Starting Sat02/06/18 | | | | | | | at 2045, Until Sat02/11/18 at | | | | | | | 1005 | | | | | | + + + +---+---------+---+ + + +---+---------+---+ | Rate/Dose Verify | 02/11/20 | | 2 mL/hr | | | | 18 8:16 | | | | | | PM PDT | | | | + + +---+---------+---+ | Rate/Dose Change | 02/11/20 | | 2 mL/hr | | | | 18 5:23 | [...] +------+---+---+ | sulfur hexafluoride | Given | 02/10/20 | 5 mL | | | | microspheres (LUMASON) IV 1-2 mL | | 18 1:01 | | | | | 1-2 mL, intravenous, ONCE, 1 | | PM PDT | | | | | dose, [place] 02/09/18 at 1345 | | | | | | + +-------+ +------+---+---+ +---+---+ | | | +---+---+ documented in this encounter
--- OUTSIDE RECORDS SUMMARY | ~2019-01-30 | XMS | Encounter Summary ---
Demographics + + + | Address | [address] | | | [place] [address] | + + + | Home Phone [...] Team Providers + +------+ + | Care Ice Skating Coach Name | Role | Phone | + +------+ + | Santo Gooden MD | PCP | | + +------+ + Encounter Details +--------+ + + + + | Date | Type | Department | Care Team | Description | +--------+ + + + + | 04/27/ | Pharmacy | Outpatient Retail | | | | 2017 | Visit | [facility] Pharm[facility] | | | | | | [address] | | | | | | [facility] | | | | | | [place], [place] | | | | | | [address] | | | +--------+ + + + [...] Scott | | | | | | [facility] [place] | | | | | | [address] | | | | | | [phone] | | | | | | | | +--------+ + + + + | 03/25/ | Office | Orthopedics | Lynda Basurto, | | | 2018 | Visit | | [address] | | | | | | [address] | | | | | | [place] | | | | | | [address] | | | | | | [phone] | | | | | | | | +--------+ + + + + | 03/25/ | Office | Hematology & | Sandra Patel MD | | | 2018 | Visit | Oncology | [address] | | | | | | [place] | | | | | | [address] | | | | | | [phone] | | | | | | | | +--------+ + + + + documented as of this encounter Visit Diagnoses Not on filedocumented in this encounter"
--- OUTSIDE RECORDS SUMMARY | ~2019-01-30 | XMS | Encounter Summary ---
Demographics + + + | Address | [address] | | | [place] [address] | + + + | Home Phone [...] Author + + + | Author | [facility] | + + + | Organization | [facility] | + + + | Address | Unknown | + + + | Phone | Unavailable | + + + Support + + +---------+ + | Name | Relationship | Address | Phone | + + +---------+ + | Kika Cage | ECON | Unknown | | + + +---------+ + Care Team Providers + +------+ + | Care Army Senior Officer Name | Role | Phone | [...] | | 2017 | | Oncology at [place] | | | | | | for Health & Healing | | | | | | [address] | | | | | | Mailcode: [place] | | | | | | for Health and | | | | | | [facility], [facility] | | | | | | [place], [place] | | | | | | [address] | | | | | | [phone] | | | +--------+ + + + [...] Scott | | | | | | [facility] [place] | | | | | | [address] | | | | | | [phone] | | | | | | | | +--------+ + + + + | 03/25/ | Office | Orthopedics | Lynda Basurto, | | | 2018 | Visit | | [address] | | | | | | [address] | | | | | | [place], [place] | | | | | | [address] | | | | | | [phone] | | | | | | | | +--------+ + + + + | 03/25/ | Office | Hematology & | Sandra Patel MD | | | 2019 | Visit | Oncology | [address] | | | | | | [facility] [place] | | | | | | [address] | | | | | | [phone] | | | | | | | | +--------+ + + + + documented as of this encounter Visit Diagnoses Not on filedocumented in this encounter"
--- OUTSIDE RECORDS SUMMARY | ~2019-01-30 | XMS | Encounter Summary ---
Demographics + + + | Address | [address] | | | [place] [address] | + + + | Home Phone [...] Team Providers + +------+ + | Care Grain Origination Specialist Name | Role | Phone | [...] | | Diseases at [facility] | [address] | | | | | Floor [address] | [facility] | | | | | [facility] | [place], [place] | | | | | Mailcode: L457 | [address] | | | | | Physicians Katie | [phone] | | | | | [place] | | | | | | [address] | | | | | | [phone] | | | +--------+ + + + [...] Scott | | | | | | [place], [place] | | | | | | [address] | | | | | | [phone] | | | | | | | | +--------+ + + + + | 03/25/ | Office | Orthopedics | Jaylene BasurtoCheen, | | | 2018 | Visit | | [address] | | | | | | [address] | | | | | | [place], [place] | | | | | | [address] | | | | | | [phone] | | | | | | | | +--------+ + + + + | 03/25/ | Office | Hematology & | Sandra Patel MD | | | 2018 | Visit | Oncology | [address] | | | | | | [place], [place] | | | | | | [address] | | | | | | [phone] | | | | | | | | +--------+ + + + + documented as of this encounter Visit Diagnoses Not on filedocumented in this encounter"
--- OUTSIDE RECORDS SUMMARY | ~2019-01-30 | XMS | Encounter Summary ---
Demographics + + + | Address | [address] | | | [place] [address] | + + + | Home Phone | | + + + | Preferred Language | Unknown | + + + | Marital Status | Single | + + + | Restorationism Affiliation | CAT | + + + [...] Team Providers + +------+ + | Care Surgical Coordinator Name | Role | Phone | + +------+ + | Santo Gooden MD | PCP | | + +------+ + Encounter Details +--------+------+ + + + | Date | Type | Department | Care Team | Description | +--------+------+ + + + | 01/23/ | Lab | Laboratory at [facility] | | Synovial sarcoma | | 2018 | | [address] | | ([facility]) | | | | [place], [place] | | | | | | [address] | | | | | | [phone] | | | +--------+------+ + + + [...] [place] | | | | | | [address] | | | | | | [phone] | | | | | | | | +--------+ + + + + | 03/25/ | Office | Orthopedics | Lynda Basurto, | | | 2018 | Visit | | [address] | | | | | | [address] | | | | | | [place], [place] | | | | | | [address] | | | | | | [phone] | | | | | | | | +--------+ + + + + | 03/25/ | Office | Hematology & | Sandra Patel MD | | | 2018 | Visit | Oncology | [address] | | | | | | [place], [place] | | | | | | [address] | | | | | | [phone] | | | | | | | [...] | + + + + + | [facility] | [address] | [place] [address] | | | SERVICES, [place] FOR | | | | | HEALTH [...] | + + + + + | [facility] | [address] | [place] [address] | | | SERVICES, CORE | PARK [...] [facility] | [address] | [place] [address] | | | SERVICES, CENTER FOR | [...]
--- OUTSIDE RECORDS SUMMARY | ~2019-01-30 | XMS | Clinical Summary ---
Demographics + + + | Address | [address] | | | [place] [address] | + + + | Home Phone | | + + + | Preferred Language | Unknown | + + + | Marital Status | Single | + + + | Temple Affiliation | Unknown | + + + | Race | Unknown | + + + | Ethnic Group | Unknown | + + + Author + + + | Author | [facility] | | | and [facility] | + + + | Organization | [facility] | | | and [facility] [...] Providers + +------+ + | Care Director Content Marketing Name | Role | Phone | [...] +--------+ +--------+-------+---------+--------+ | BCBS | BCBS | [id number] | 09/02/19 | | | PPO | | | FEDERA | | 16-Pre | | | | | | L FEP | | sent | | | | + +--------+ +--------+-------+---------+--------+ | HEALTH | IHS | [id number] | | | | Indemn | | [...] Person | Self | [birth year] | [address] | | | al/Fam | | 1985 | [phone] | [place] [address] | | | emerita | | | 4 (Home) | | + +--------+ +--------+ + + Advance Directives Patient has advance care planning documents on file. For more information, please contact:[facility] [place] [address]
--- OUTSIDE RECORDS SUMMARY | ~2019-01-30 | XMS | Encounter Summary ---
Demographics + + + | Address | [address] | | | [place] [address] | + + + | Home Phone [...] Team Providers + +------+ + | Care Speaking Unit Assembler Name | Role | Phone | [...] | | | | | sarcoma | [address] | [address] | | | | | ([facility]) | Ave | [address] | | | | | Procedures | [facility] [place] | Nakia | | | | | CONSULT TO | [address] | [place] | | | | | ADULT | Phone: | [phone] | | | | | MEDICAL | [phone] | Phone: | | | | | NUTRITIONAL | Fax: | [phone] | | | | | THERAPY | [phone] | | +--------+--------+ + + + + [...] | Synovial | Sandra Schmitt MD | [facility] [address] | | | | | sarcoma | [address] | [address] | | | | | ([facility]) | Ave | Mailcode: | | | | | Procedures | [place], [place] | [address] | | | | | TRANSTHORACI | [address] | for Health | | | | | C | Phone: | and Healing | | | | | ECHOCARDIOGR | [phone] | [place], [place] | | | | | AM WITH | Fax: | [phone] | | | | | STRAIN - | [phone] | Phone: | | | | | CARDIO | | [phone] | | | | | MECHANICS, | | | | | | | ADULT AR | | | | | | | TTE W/DPPLR, | | | | | | | COMP ECHO | | | | | | | to be | | | | | | | done at: | | | | | | | [facility] | | | | | | | [facility] | | | | | | | [place] | | | +--------+--------+ + + + [...] | Malignant | Lynda, | MD [address] | | | | | neoplasm of | MD [address] | | | | | soft tissue | [address] | [place], [place] | | | | | of left | [address] | [address] | | | | | lower | [place], [place] | Phone: | | | | | extremity | [address] | [phone] | | | | | (HCC) | Phone: | Fax: | | | | | Procedures | [phone] | [phone] | | | | | CONSULT TO | Fax: | | | | | | HEMATOLOGY / | [phone] | | | | | | ONCOLOGY [...] | | for Health & Healing | [place], [place] | | | | | [address] | [address] | | | | | Mailcode: Center | [phone] | | | | | for [facility] and | | | | | | [address] | | | | | | [place], [place] | | | | | | [address] | | | | | | [phone] | | | +--------+---------+ + + + [...] Name: Tati Cage : 1985 Home Town: [place], [place] Referring Physician: Sb Reason for Consult: [...] on file Social History Narrative Works in [employer] at a [employer] near [place]. No kids. Lives with her mother Kika. [...] perfused. No edema. Neurologic - Awake, alert. b2b sales representative grossly intact. Affect/Psych - Appropriate. Tearful. ECOG - 0 IMAGING: I independently reviewed the following imaging. 01/22/18 CT chest - No evidence of thoracic metastatic disease. No MRI reports in [facility]. MRI from 12/26/2017 shows a nearly [...] weight stability. She requests involvement of dieticians, [facility] I support. Also advised to insure increased physical activity despite limitations. Sandra Patel MD Envelope Sealing Machine Operator Medical Oncology & Pediatric Hematology/Oncology [facility] documented in this enco unter Plan of Treatment +--------+ + + + + | Date | Type | Specialty | Care Team | Description | +--------+ + + + + | 03/25/ | Appointment | Radiology | Sandra Patel MD | | | 2018 | | | [address] | | | | | | [place], [place] | | | | | | [address] | | | | | | [phone] | | | | | | | | +--------+ + + + + | 03/25/ | Office | Orthopedics | Lynda Basurto, | | | 2018 | Visit | | [address] | | | | | | [address] | | | | | | [place], [place] | | | | | | [address] | | | | | | [phone] | | | | | | | | +--------+ + + + + | 03/25/ | Office | Hematology & | Sandra Patel MD | | | 2018 | Visit | Oncology | [address] | | | | | | [place], [place] | | | | | | [address] | | | | | | [phone] | | | | | | | | +--------+ + + + + + +------+--------+ + + | Name | Type | Priori | Associated Diagnoses | Order Schedule | | | | ty | | | + +------+--------+ + + | TRANSTHORACIC | ECG | Routin | Synovial sarcoma | Ordered: 01/23/2018 | | ECHOCARDIOGRAM WITH | | e | ([facility]) | | | STRAIN - [...] | + + + + + | [facility] | [address] | [place] [address] | | | SERVICES, ANTONI | ARMANDO [...] + + + | [facility] | [address] | [place] [address] | | | [facility] | | | | | HEALTH + HEALING | | | | + + + + + documented in this encounter Visit Diagnoses + + | Diagnosis | + + | 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
--- OUTSIDE RECORDS SUMMARY | ~2019-01-30 | XMS | Encounter Summary ---
Demographics + + + | Address | [address] | | | [place] [address] | + + + | Home Phone [...] + + | Author | [facility] | + + + | Organization | [facility] | + + + | Address | Unknown | + + + | Phone | Unavailable | + + + Support + + +---------+ + | Name | Relationship | Address | Phone | + + +---------+ + | Kika Cage | ECON | Unknown | | + + +---------+ + Care Team Providers + +------+ + | Care Contact Center Analyst Name | Role | Phone | + +------+ + | Santo Gooden MD | PCP | | + +------+ + Encounter Details +--------+ + + + + | Date | Type | Department | Care Team | Description | +--------+ + + + + | 06/13/ | Documentati | Infectious | Angely Stephen, | | | 2018 | on | Diseases at [facility] | [address] | | | | | Floor [address] | [facility] | | | | | [facility] | [place], [place] | | | | | Mailcode: L457 | [address] | | | | | Physicians Katie | [phone] | | | | | [place], [place] | | | | | | [address] | | | | | | [phone] | | | +--------+ + + + [...] | | | 2018 | | | [address] | | | | | | [place], [place] | | | | | | [address] | | | | | | [phone] | | | | | | | | +--------+ + + + + | 03/25/ | Office | Orthopedics | Lynda Basurto, | | | 2019 | Visit | | [address] | | | | | | [address] | | | | | | [place], [place] | | | | | | [address] | | | | | | [phone] | | | | | | | | +--------+ + + + + | 03/25/ | Office | Hematology & | Sandra Patel MD | | | 2019 | Visit | Oncology | [address] | | | | | | [place] | | | | | | [address] | | | | | | [phone] | | | | | | | | +--------+ + + + + documented as of this encounter Visit Diagnoses Not on filedocumented in this encounter"
--- OUTSIDE RECORDS SUMMARY | ~2019-01-30 | XMS | Encounter Summary ---
Demographics + + + | Address | [address] | | | [place] [address] | + + + | Home Phone [...] Team Providers + +------+ + | Care Aeronautical Test Engineer Name | Role | Phone | [...] | Floor [address] | [facility] | | | | | [facility] | [place], [place] | | | | | Mailcode: L457 | [address] | | | | | Physicians Katie | [phone] | | | | | [place], [place] | | | | | | [address] | | | | | | [phone] | | | +--------+ + + + [...] | | | 2018 | | | [address] | | | | | | [place], [place] | | | | | | [address] | | | | | | [phone] | | | | | | | | +--------+ + + + + | 03/25/ | Office | Orthopedics | Lynda Basurto, | | | 2019 | Visit | | [address] | | | | | | [address] | | | | | | [place], [place] | | | | | | [address] | | | | | | [phone] | | | | | | | | +--------+ + + + + | 03/25/ | Office | Hematology & | Sandra Patel MD | | | 2019 | Visit | Oncology | [address] | | | | | | [place] | | | | | | [address] | | | | | | [phone] | | | | | | | | +--------+ + + + + documented as of this encounter Visit Diagnoses Not on filedocumented in this encounter"
--- OUTSIDE RECORDS SUMMARY | ~2019-01-30 | XMS | Encounter Summary ---
Demographics + + + | Address | [address] | | | [place] [address] | + + + | Home Phone [...] Team Providers + +------+ + | Care Architectural Drafting Instructor Name | Role | Phone | [...] | | 2019 | | [facility] | [address] | Appeal) | | | | for Health & Healing | [place], [place] | | | | | [address] | [address] | | | | | Mailcode: [facility] | [phone] | | | | | for Health and | | | | | | Healing, [facility] 2 | | | | | | [place], [place] | | | | | | [address] | | | | | | [phone] | | | +--------+ + + + [...] | | | 2018 | | | [address] | | | | | | [place], [place] | | | | | | [address] | | | | | | [phone] | | | | | | | | +--------+ + + + + | 03/25/ | Office | Orthopedics | Rosy BasurtoAlexander, | | | 2018 | Visit | | [address] | | | | | | [address] | | | | | | [place], [place] | | | | | | [address] | | | | | | [phone] | | | | | | | | +--------+ + + + + | 03/25/ | Office | Hematology & | Sandra Patel MD | | | 2018 | Visit | Oncology | [address] | | | | | | [place], [place] | | | | | | [address] | | | | | | [phone] | | | | | | | | +--------+ + + + + documented as of this encounter Visit Diagnoses Not on filedocumented in this encounter"
--- OUTSIDE RECORDS SUMMARY | ~2019-01-30 | XMS | Encounter Summary ---
Demographics + + + | Address | [address] | | | [place] [address] | + + + | Home Phone [...] Team Providers + +------+ + | Care Wound Treatment Rn Name | Role | Phone | [...] | Floor [address] | [facility] | | | | | [facility] | [place], [place] | | | | | Mailcode: L457 | [address] | | | | | Physicians Katie | [phone] | | | | | [place] | | | | | | [address] | | | | | | [phone] | | | +--------+ + + + [...] [address] | | | | | | [place], [place] | | | | | | [address] | | | | | | [phone] | | | | | | | | +--------+ + + + + | 03/25/ | Office | Orthopedics | Jaylene BasurtoCheen, | | | 2018 | Visit | | [address] | | | | | | [address] | | | | | | [place], [place] | | | | | | [address] | | | | | | [phone] | | | | | | | | +--------+ + + + + | 03/25/ | Office | Hematology & | Sandra Patel MD | | | 2018 | Visit | Oncology | [address] | | | | | | [place], [place] | | | | | | [address] | | | | | | [phone] | | | | | | | | +--------+ + + + + documented as of this encounter Visit Diagnoses Not on filedocumented in this encounter"
--- OUTSIDE RECORDS SUMMARY | ~2019-01-30 | XMS | Encounter Summary ---
Demographics + + + | Address | [address] | | | [place] [address] | + + + | Home Phone [...] Team Providers + +------+ + | Care Balance Wheel Hand Filer Name | Role | Phone | + [...] | | | Synovial | Lynda, | [facility] 9523 | | | | | sarcoma | [address] | [address] | | | | | ([facility]) | [address] | Mailcode: | | | | | Procedures | [address] | [facility] | | | | | CT CHEST WO | [facility] [place] | for Health | | | | | [place] | [address] | and Healing, | | | | | CT | Phone: | 3rd Floor | | | | | SCAN,THORAX, | [phone] | [place], [place] | | | | | W/O CONTRAST | Fax: | [address] | | | | | | [phone] | Phone: | | | | | | | [phone] | | | | | | | Fax: | | | | | | | [phone] | +--------+--------+ + + + + Diagnostic [...] | | | Synovial | Lynda, | [facility] 8013 | | | | | sarcoma | [address] | [address] | | | | | ([facility]) | [address] | Mailcode: | | | | | Procedures | [address] | [facility] | | | | | CT CHEST WO | [place], [place] | for Health | | | | | [place] | [address] | and Healing, | | | | | CT | Phone: | 3rd Floor | | | | | SCAN,THORAX, | [phone] | [facility] [place] | | | | | W/O CONTRAST | Fax: | [address] | | | | | | [phone] | Phone: | | | | | | | [phone] | | | | | | | Fax: | | | | | | | [phone] | +--------+--------+ + + + + Reason [...] [address] | | | | | ([facility]) | [address] | Mailcode: | | | | | Procedures | [address] | [facility] | | | | | CT CHEST WO | [place], [place] | for Health | | | | | [place] | [address] | and Healing, | | | | | CT | Phone: | 3rd Floor | | | | | SCAN,THORAX, | [phone] | [facility] [place] | | | | | W/O CONTRAST | Fax: | [address] | | | | | | [phone] | Phone: | | | | | | | [phone] | | | | | | | Fax: | | | | | | | [phone] | +--------+--------+ + + + + Encounter Details +--------+ + + + + | Date | Type | Department | Care Team | Description | +--------+ + + + + | 08/06/ | Hospital | Radiology/Imaging | Lynda Basurto, | | | 2018 | Encounter | Lab at [facility] [address] | [address] [facility] | | | | | [address] | [facility] | | | | | Mailcode: CH3G | [place], [place] | | | | | [facility] | [address] | | | | | and [facility] | [phone] | | | | | [place], [place] | | | | | | [address] | | | | | | [phone] | | | +--------+ + + + [...] [address] | | | | | | [place], [place] | | | | | | [address] | | | | | | [phone] | | | | | | | | +--------+ + + + + | 03/25/ | Office | Orthopedics | Lynda Basurto, | | | 2018 | Visit | | [address] | | | | | | [address] | | | | | | [place], [place] | | | | | | [address] | | | | | | [phone] | | | | | | | | +--------+ + + + + | 03/25/ | Office | Hematology & | Sandra Patel MD | | | 2018 | Visit | Oncology | [address] | | | | | | [place], [place] | | | | | | [address] | | | | | | [phone] | | | | | | | [...]
--- OUTSIDE RECORDS SUMMARY | ~2019-01-30 | XMS | Encounter Summary ---
Demographics + + + | Address | [address] | | | [place] [address] | + + + | Home Phone [...] Providers + +------+ + | Care Sales Negotiator Name | Role | Phone | + [...] | | | 2018 | Event | [facility] | MD Sue [address] | | | | | Admitting Desk | [facility] | | | | | Located on the | [place], [place] | | | | | floor [address] [place] [address] | [address] | | | | | [facility] | [phone] | | | | | [place], [place] | | | | | | [address] | | | +--------+ + + + [...] IV | 2100; Site problems (painful) | [place] [facility]I | | +--------+ + + + | [...] | | | | | | [place], [place] | | | | | | [address] | | | | | | [phone] | | | | | | | | +--------+ + + + + | 03/25/ | Office | Orthopedics | Lynda Basurto, | | | 2019 | Visit | | [address] | | | | | | [address] | | | | | | [facility] [place] | | | | | | [address] | | | | | | [phone] | | | | | | | | +--------+ + + + + | 03/25/ | Office | Hematology & | Sandra Patel MD | | | 2019 | Visit | Oncology | [address] | | | | | | [place], [place] | | | | | | [address] | | | | | | [phone] | | | | | | | [...] 2:31 | | | | | Starting Bettie 02/06/18 at 1431, | | PM PDT [...]
--- OUTSIDE RECORDS SUMMARY | ~2019-01-30 | XMS | Encounter Summary ---
Demographics + + + | Address | [address] | | | [place] [address] | + + + | Home Phone [...] Team Providers + +------+ + | Care Rod Placer Name | Role | Phone | + [...] | | | Synovial | Lynda, | [facility] [address] | | | | | sarcoma | [address] | [place] | | | | | ([facility]) | Federico Nascimento | Mailcode: | | | | | Procedures | Sarahy Conner | [facility] | | | | | CT CHEST WO | [facility] [place] | for Health | | | | | CONTRAST [place] | [address] | and Healing, | | | | | CT | Phone: | 3rd Floor | | | | | SCAN,THORAX, | [phone] | [place], [place] | | | | | W/O CONTRAST | Fax: | [address] | | | | | | [phone] | Phone: | | | | | | | [phone] | | | | | | | Fax: | | | | | | | [phone] | +--------+--------+ + + + + Encounter Details +--------+---------+ + + + | Date | Type | Department | Care Team | Description | +--------+---------+ + + + | 05/14/ | Office | [facility] | Lynda Basurto, | 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 | & Rehabilitation at | [address] | ([facility]) (Primary Dx) | | | | [facility] [address] | [facility] | | | | | Ave Mailcode: | [place], [place] | | | | | [place] for [facility] | [address] | | | | | and Healing, | [phone] | | | | | Building [address] | | | | | | [place], [place] | | | | | | [address] | | | | | | [phone] | | | +--------+---------+ + + + [...] encounter Progress Notes Lynda Basurto MD - 05/14/2018 4:00 PM 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 F here for followup. She is 6 wks s/p I&D L BKA site. There was osteomyeliti s. She is almost done with IV abx. 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 Finished chemo. PE: Wt 144.7 kg (319 lb 1.6 oz), BP 145/89, Pulse 97, Temperature 36.7 C (98 F), Temperatur e source Oral, RR 16, SpO2 94%, BMI 48.52 kg/(m^2). Facility age limit for growth percentil es is 18 years. Incision healed. No drainage. No erythema. No tenderness palpation. Knee can get to full e xtension. Imaging: Reviewed by myself. CT chest 05/14/2018: no mets seen A/P: s/p I&D L BKA site, wound healing well -finish IV antibiotics per infectious disease. -cont prosthesis fitting -return in [address] chest. To be seen w dr. Patel. -patient needs prosthesis: Please be advised that Ms. 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 Ms. Cage is a 31 year old female who is motivated to ambulate and anxious to re turn to her prior activities. 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 She was respon sible for cleaning their home, weeding the yard, and shopping. 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 Her hobbies include Hiking, Gardening, and picking berries. Her home has a gravel driveway and a sloped sidewalk. These activities required the patient to ambulate o n a variety of terrain and inclines and she will require a prosthetic design that will allow her to achieve her prior level of independence. Currently, Ms. Cage is able to transfer and stand independently on her sound side. documented in this e ncounter Plan of Treatment +--------+ + + + + | Date | Type | Specialty | Care Team | Description | +--------+ + + + + | 03/25/ | Appointment | Radiology | Sandra Patel MD | | | 2018 | | | [address] | | | | | | [place], [place] | | | | | | [address] | | | | | | [phone] | | | | | | | | +--------+ + + + + | 03/25/ | Office | Orthopedics | Rosy BasurtoMacarioLori, | | | 2018 | Visit | | [address] | | | | | | [address] | | | | | | [facility] [place] | | | | | | [address] | | | | | | [phone] | | | | | | | | +--------+ + + + + | 03/25/ | Office | Hematology & | Sandra Patel MD | | | 2018 | Visit | Oncology | [address] | | | | | | [place], [place] | | | | | | [address] | | | | | | [phone] | | | | | | | [...] Note | + + | Service Account, [employer] Res In Interface - 08/06/2018 1:07 PM [...]
--- OUTSIDE RECORDS SUMMARY | ~2019-01-30 | XMS | Encounter Summary ---
Demographics + + + | Address | [address] | | | [place] [address] | + + + | Home Phone [...] Team Providers + +------+ + | Care Capacitor Tester Name | Role | Phone | [...] | | for Health & Healing | [place], [place] | and labs) | | | | [address] | [address] | | | | | Mailcode: Center | [phone] | | | | | for Health and | | | | | | Healing, [address] | | | | | | [place], [place] | | | | | | [address] | | | | | | [phone] | | | +--------+ + + + [...] Scott | | | | | | [place], [place] | | | | | | [address] | | | | | | [phone] | | | | | | | | +--------+ + + + + | 03/25/ | Office | Orthopedics | Lynda Basurto, | | | 2018 | Visit | | [address] | | | | | | [address] | | | | | | [place], [place] | | | | | | [address] | | | | | | [phone] | | | | | | | | +--------+ + + + + | 03/25/ | Office | Hematology & | Sandra Patel MD | | | 2018 | Visit | Oncology | [address] | | | | | | [place], [place] | | | | | | [address] | | | | | | [phone] | | | | | | | | +--------+ + + + + documented as of this encounter Visit Diagnoses + + | Diagnosis | + + | 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
--- OUTSIDE RECORDS SUMMARY | ~2019-01-30 | XMS | Encounter Summary ---
Demographics + + + | Address | [address] | | | [place] [address] | + + + | Home Phone [...] Author + + + | Author | [facility] | + + + | Organization | [facility] | + + + | Address | Unknown | + + + | Phone | Unavailable | + + + Support + + +---------+ + | Name | Relationship | Address | Phone | + + +---------+ + | Kika Cage | ECON | Unknown | | + + +---------+ + Care Team Providers + +------+ + | Care Dental Cream Maker Name | Role | Phone | [...] [place] | | | | | | [facility] | | | | | | [place], [place] | | | | | | [address] | | | +--------+ + + + [...] Scott | | | | | | [place] | | | | | | [address] | | | | | | [phone] | | | | | | | | +--------+ + + + + | 03/25/ | Office | Orthopedics | Lynda Basurto, | | | 2018 | Visit | | [address] | | | | | | [address] | | | | | | [place] | | | | | | [address] | | | | | | [phone] | | | | | | | | +--------+ + + + + | 03/25/ | Office | Hematology & | Sandra Patel MD | | | 2018 | Visit | Oncology | [address] | | | | | | [place] | | | | | | [address] | | | | | | [phone] | | | | | | | | +--------+ + + + + documented as of this encounter Visit Diagnoses Not on filedocumented in this encounter"
--- OUTSIDE RECORDS SUMMARY | ~2019-01-30 | XMS | Encounter Summary ---
Demographics + + + | Address | [address] | | | [place] [address] | + + + | Home Phone [...] Team Providers + +------+ + | Care High Speed Warper Tender Name | Role | Phone | [...] | | 2018 | | [facility]cology at [place] | [address] | | | | | for Health & Healing | [place], [place] | | | | | [address] | [address] | | | | | Mailcode: [place] | [phone] | | | | | for Health and | | | | | | Healing, [address] | | | | | | [facility] [place] | | | | | | [address] | | | | | | [phone] | | | +--------+ + + + [...] | | | 2018 | | | [address] | | | | | | [place], [place] | | | | | | [address] | | | | | | [phone] | | | | | | | | +--------+ + + + + | 03/25/ | Office | Orthopedics | Rosy BasurtoAlexander, | | | 2018 | Visit | | [address] | | | | | | [address] | | | | | | [place], [place] | | | | | | [address] | | | | | | [phone] | | | | | | | | +--------+ + + + + | 03/25/ | Office | Hematology & | Sandra Patel MD | | | 2018 | Visit | Oncology | [address] | | | | | | [place], [place] | | | | | | [address] | | | | | | [phone] | | | | | | | | +--------+ + + + + documented as of this encounter Visit Diagnoses Not on filedocumented in this encounter"
--- OUTSIDE RECORDS SUMMARY | ~2019-01-30 | XMS | Encounter Summary ---
Demographics + + + | Address | [address] | | | [place] [address] | + + + | Home Phone [...] Author | [facility] | + + + | Organization | [facility] | + + + | Address | Unknown | + + + | Phone | Unavailable | + + + Support + + +---------+ + | Name | Relationship | Address | Phone | + + +---------+ + | Kika Cage | ECON | Unknown | | + + +---------+ + Care Team Providers + +------+ + | Care Potable Water Treatment Operator Name | Role | Phone | [...] | | 2017 | | Oncology at [place] | | | | | | for Health & Healing | | | | | | [address] | | | | | | Mailcode: [place] | | | | | | for Health and | | | | | | [facility] [address] | | | | | | [place], [place] | | | | | | [address] | | | | | | [phone] | | | +--------+ + + + [...] | | | | | | [facility] [place] | | | | | | [address] | | | | | | [phone] | | | | | | | | +--------+ + + + + | 03/25/ | Office | Orthopedics | Lynda Basurto, | | | 2018 | Visit | | [address] | | | | | | [address] | | | | | | [place], [place] | | | | | | [address] | | | | | | [phone] | | | | | | | | +--------+ + + + + | 03/25/ | Office | Hematology & | Sandra Patel MD | | | 2019 | Visit | Oncology | [address] | | | | | | [facility] [place] | | | | | | [address] | | | | | | [phone] | | | | | | | | +--------+ + + + + documented as of this encounter Visit Diagnoses Not on filedocumented in this encounter"
--- OUTSIDE RECORDS SUMMARY | ~2019-01-30 | XMS | Encounter Summary ---
Demographics + + + | Address | [address] | | | [place] [address] | + + + | Home Phone [...] Team Providers + +------+ + | Care Cancellation Clerk Name | Role | Phone | [...] | Floor [address] | [facility] | | | | | [facility] | [place], [place] | | | | | Mailcode: [address] | [address] | | | | | Physicians Katie | [phone] | | | | | [place], [place] | | | | | | [address] | | | | | | [phone] | | | +--------+ + + + [...] Scott | | | | | | [place], [place] | | | | | | [address] | | | | | | [phone] | | | | | | | | +--------+ + + + + | 03/25/ | Office | Orthopedics | Lynda Basurto, | | | 2019 | Visit | | [address] | | | | | | [address] | | | | | | [place], [place] | | | | | | [address] | | | | | | [phone] | | | | | | | | +--------+ + + + + | 03/25/ | Office | Hematology & | Sandra Patel MD | | | 2019 | Visit | Oncology | [address] | | | | | | [place] | | | | | | [address] | | | | | | [phone] | | | | | | | | +--------+ + + + + documented as of this encounter Visit Diagnoses Not on filedocumented in this encounter"
--- OUTSIDE RECORDS SUMMARY | ~2019-01-30 | XMS | Encounter Summary ---
Demographics + + + | Address | [address] | | | [place] [address] | + + + | Home Phone [...] Team Providers + +------+ + | Care Pack Worker Supervisor Name | Role | Phone | + +------+ + | Santo Gooden MD | PCP | | + +------+ + Reason for Visit + + + | Reason | Comments | + + + | Lab Draw | port flush | + + + Consultation (Urgent) + [...] | Malignant | Lynda, | [address] | | | | | neoplasm of | [address] | | | | | soft tissue | [address] | [place], [place] | | | | | of left | [address] | [address] | | | | | lower | [place], [place] | Phone: | | | | | extremity | [address] | [phone] | | | | | (HCC) | Phone: | Fax: | | | | | Procedures | [phone] | [phone] | | | | | CONSULT TO | Fax: | | | | | | HEMATOLOGY / | [phone] | | | | | | ONCOLOGY | | | + +--------+ + + + + Encounter Details +--------+ + + + + | Date | Type | Department | Care Team | Description | +--------+ + + + + | 08/06/ | Hospital | Hematology/Medical | A, Pod [address] | | | 2018 | Encounter | Oncology at [facility] | [address] [place], | | | | | [address] | [place] [address] | | | | | Mailcode: Center | | | | | | for Health and | | | | | | Healing, [address] | | | | | | [place], [place] | | | | | | [address] | | | | | | [phone] | | | +--------+ + + + [...] documented as of this encounter Progress Notes Guerline Roa RN - 08/06/2018 12:02 PM PSTDouble lumen PAC accessed with 1 inch needle s, flushed and deaccessed per protocol. Labs drawn via PAC and sent to lab.. Patient tolera abhilash without incident. Pt Alert & Oriented x3, No acute distress, Mood & affect appropriate and Recent & remote memory intact and discharged with family/front end driver, ambulatory and instruct ions have been provided. Refer to MAR and Onc Lines and Transfusions doc flowsheet for treatment details. documented in this encounter Plan of Treatment [...] [place] | | | | | | [address] | | | | | | [phone] | | | | | | | | +--------+ + + + + | 03/25/ | Office | Orthopedics | Lynda Basurto, | | | 2018 | Visit | | [address] | | | | | | [address] | | | | | | [place], [place] | | | | | | [address] | | | | | | [phone] | | | | | | | | +--------+ + + + + | 03/25/ | Office | Hematology & | Sandra Patel MD | | | 2018 | Visit | Oncology | [address] | | | | | | [place], [place] | | | | | | [address] | | | | | | [phone] | | | | | | | | +--------+ + + + + documented as of this encounter Procedures + +--------+ + + + | Procedure Name | Priori | Date/Time | Associated Diagnosis | Comments | | | ty | | | | + +--------+ + + + | CBC+DIFF,POC | Routin | 08/06/2018 | Synovial sarcoma | Results for this | | | e | 1:58 PM | (HCC) | procedure are in the | | | | PST | | results section. | + +--------+ + + + | CMP, POC (BMP+LFT) | Routin | 08/06/2018 | Synovial sarcoma | Results for this | | | e | 1:58 PM | (HCC) | procedure are in the | | | | PST | | results section. | + +--------+ + + + | INR | Routin | 08/06/2018 | History of | Results for this | | | e | 1:32 PM | chemotherapy | procedure are in the | | | | PST | | results section. | + +--------+ + + + documented in this encounter Results CMP, POC (BMP+LFT) (08/06/2018 1:58 PM PST) + +--------+ + + + | Component | Value | Ref Range | Performed | Pathologist | | | | | At | Signature | + +--------+ + + + | SODIUM, POC | 143 | 134 - 143 | [facility] | | | | | mmol/L | POINT OF | | | | | | CARE TESTS | | + +--------+ + + + | POTASSIUM, | 3.7 | 3.4 - 5.0 | [facility], | | | POC | | mmol/L | POINT OF | | | | | | CARE TESTS | | + +--------+ + + + | TOTAL CO2, | 30 (H) | 22 - 28 mmol/L | [facility], | | | POC | | | POINT OF | | | | | | CARE TESTS | | + +--------+ + + + | CHLORIDE, | 101 | 97 - 108 mmol/L | [facility] | | | POC | | | POINT OF | | | | | | CARE TESTS | | + +--------+ + + + | GLUCOSE, | 91 | 60 - 99 mg/dL | [facility], | | | POC | | | POINT OF | | | | | | CARE TESTS | | + +--------+ + + + | CALCIUM | 9.1 | 8.6 - 10.2 | [facility], | | | TOTAL, POC | | mg/dL | POINT OF | | | | | | CARE TESTS | | + +--------+ + + + | BUN, POC | 20 | 6 - 20 mg/dL | [facility], | | | | | | POINT OF | | | | | | CARE TESTS | | + +--------+ + + + | CREATININE, | 0.7 | 0.6 - 1.1 mg/dL | [facility], | | | POC | | | POINT OF | | | | | | CARE TESTS | | + +--------+ + + + | ALK PHOS, | 64 | 33 - 76 U/L | [facility], | | | CMP POC | | | POINT OF | | | | | | CARE TESTS | | + +--------+ + + + | ALT, CMP | 35 | 0 - 60 U/L | [facility], | | | POC | | | POINT OF | | | | | | CARE TESTS | | + +--------+ + + + | AST, CMP | 34 | 0 - 41 U/L | [facility], | | | POC | | | POINT OF | | | | | | CARE TESTS | | + +--------+ + + + | BILIRUBIN | 0.5 | 0.3 - 1.2 mg/dL | [facility], | | | TOTAL, CMP | | | POINT OF | | | POC | | | CARE TESTS | | + +--------+ + + + | ALBUMIN, | 3.8 | 3.5 - 4.7 g/dL | [facility], | | | CMP POC | | | POINT OF | | | | | | CARE TESTS | | + +--------+ + + + | PROTEIN | 6.6 | 6.4 - 8.2 g/dL | [facility], | | | TOTAL, CMP | | | POINT OF | | | POC | | | CARE TESTS | | + +--------+ + + + + + | Specimen | + + | Blood | + + + + + + + | Performing | Address | City/State/Zipcode | Phone Number | | Organization | | | | + + + + + | [facility] | [address] [facility] | [place] [address] | | | OF CARE TESTS | | | | + + + + + CBC+DIFF,POC (08/06/2018 1:58 PM PST) + + + + + + | Component | Value | Ref Range | Performed | Pathologist | | | | | At | Signature | + + + + + + | WBC POC | 4.9 | 3.5 - 10.8 | [facility], | | | | | 10*3/uL | POINT OF | | | | | | CARE TESTS | | + + + + + + | RBC POC | 4.55 | 4.00 - 5.20 | [facility], | | | | | 10*6/uL | POINT OF | | | | | | CARE TESTS | | + + + + + + | HGB POC | 13.5 | 12.0 - 16.0 | [facility], | | | | | g/dL | POINT OF | | | | | | CARE TESTS | | + + + + + + | HCT POC | 40.1 | 36.0 - 46.0 % | [facility], | | | | | | POINT OF | | | | | | CARE TESTS | | + + + + + + | MCV POC | 88.1 | 80.0 - 100 fL | [facility], | | | | | | POINT OF | | | | | | CARE TESTS | | + + + + + + | MCH POC | 29.7 | 27.0 - 34.0 pg | [facility], | | | | | | POINT OF | | | | | | CARE TESTS | | + + + + + + | MCHC POC | 33.7 | 32.0 - 36.0 | [facility], | | | | | g/dL | POINT OF | | | | | | CARE TESTS | | + + + + + + | RDW SD, POC | 41.8 | 35.1 - 46.3 fL | [facility], | | | | | | POINT OF | | | | | | CARE TESTS | | + + + + + + | PLT POC | 225 | 150 - 400 | [facility], | | | | | 10*3/uL | POINT OF | | | | | | CARE TESTS | | + + + + + + | MPV POC | 9.7 | 9.7 - 12.3 fL | [facility], | | | | | | POINT OF | | | | | | CARE TESTS | | + + + + + + | NEUTROPHIL% | 46.9 (L) | 50.0 - 70.0 % | [facility], | | | POC | | | POINT OF | | | | | | CARE TESTS | | + + + + + + | LYMPH% POC | 37.1 | 18 - 42 % | [facility], | | | | | | POINT OF | | | | | | CARE TESTS | | + + + + + + | MONO %, POC | 10.7 (H) | 3.5 - 9.0 % | [facility], | | | | | | POINT OF | | | | | | CARE TESTS | | + + + + + + | EOS %, POC | 4.7 (H) | 1.0 - 3.0 % | [facility], | | | | | | POINT OF | | | | | | CARE TESTS | | + + + + + + | BASO %, POC | 0.6 | 0.0 - 2.0 % | [facility], | | | | | | POINT OF | | | | | | CARE TESTS | | + + + + + + | NEUTROPHIL# | 2.3 | 1.8 - 7.7 | [facility] [...] + + | EOS #, POC | 0.2 | 0.0 - 0.5 | [facility], | | | | | 10*3/uL | POINT OF | | | | | | CARE TESTS | | + + + + + + | BASO #, POC | 0.0 | 0.0 - 0.1 | [facility] [...] [facility] | [address] | [place] [address] | | | OF CARE TESTS | | | | + + + + + INR (08/06/2018 1:32 PM PST) + +-------+ [...] [facility] | [address] | [place] [address] | | | SERVICES, ANTONI | [address] | | | + + + + + documented in this encounter Visit Diagnoses + + | Diagnosis | + + | 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, site unspecified | + + | History of chemotherapy Personal history of antineoplastic chemotherapy | + + documented in this encounter"
--- OUTSIDE RECORDS SUMMARY | ~2019-01-30 | XMS | Encounter Summary ---
Demographics + + + | Address | [address] | | | [place] [address] | + + + | Home Phone [...] Providers + +------+ + | Care Deputy County Clerk Name | Role | Phone | [...] biopsy | | 2018 | Encounter | [facility] [address] | [address] [facility] | site | | | | Ave Mailcode: CH12A | [facility] | | | | | [place] for [facility] | [place], [place] | | | | | and | [address] | | | | | Floor [place], [place] | [phone] | | | | | [address] | | | | | | [phone] | | | +--------+ + + + [...] | | | 2018 | | | [address] | | | | | | [place], [place] | | | | | | [address] | | | | | | [phone] | | | | | | | | +--------+ + + + + | 03/25/ | Office | Orthopedics | Lynda Basurto, | | | 2018 | Visit | | [address] | | | | | | [address] | | | | | | [place], [place] | | | | | | [address] | | | | | | [phone] | | | | | | | | +--------+ + + + + | 03/25/ | Office | Hematology & | Sandra Patel MD | | | 2019 | Visit | Oncology | [address] | | | | | | [place], [place] | | | | | | [address] | | | | | | [phone] | | | | | | | | +--------+ + + + + documented as of this encounter Visit Diagnoses Not on filedocumented in this encounter"
--- OUTSIDE RECORDS SUMMARY | ~2019-01-30 | XMS | Encounter Summary ---
Demographics + + + | Address | [address] | | | [place] [address] | + + + | Home Phone [...] Team Providers + +------+ + | Care Cat Dog Or Other Pet Groomer Name | Role | Phone | + +------+ + | Santo Gooden MD | PCP | | + +------+ + Reason for Visit + + + | Reason | Comments | + + + | Care Coordination | ondina vogt | + + + Encounter Details +--------+ + + + + | Date | Type | Department | Care Team | Description | +--------+ + + + + | 03/07/ | Telephone | Hematology/Medical | Sandra Patel MD | Care Coordination | | 2018 | | Oncology at Center | [address] | ([place], [place]) | | | | for Health & Healing | [place], [place] | | | | | [address] | [address] | | | | | Mailcode: Center | [phone] | | | | | for Health and | | | | | | Healing, [address] | | | | | | [place], [place] | | | | | | [address] | | | | | | [phone] | | | +--------+ + + + [...] | | | 2019 | | | [address] | | | | | | [place], [place] | | | | | | [address] | | | | | | [phone] | | | | | | | | +--------+ + + + + | 03/25/ | Office | Orthopedics | Rosy BasurtoAlexander, | | | 2018 | Visit | | [address] | | | | | | [address] | | | | | | [place], [place] | | | | | | [address] | | | | | | [phone] | | | | | | | | +--------+ + + + + | 03/25/ | Office | Hematology & | Sandra Patel MD | | | 2018 | Visit | Oncology | [address] | | | | | | [place], [place] | | | | | | [address] | | | | | | [phone] | | | | | | | | +--------+ + + + + documented as of this encounter Visit Diagnoses + + | Diagnosis | + + | 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
--- OUTSIDE RECORDS SUMMARY | ~2019-01-30 | XMS | Encounter Summary ---
Demographics + + + | Address | [address] | | | [place] [address] | + + + | Home Phone [...] Team Providers + +------+ + | Care Test Tube Maker Name | Role | Phone | [...] | | | [facility] | | | | | | [place], [place] | | | | | | [address] | | | +--------+ + + + [...] Scott | | | | | | [place] | | | | | | [address] | | | | | | [phone] | | | | | | | | +--------+ + + + + | 03/25/ | Office | Orthopedics | Lynda Basurto, | | | 2018 | Visit | | [address] | | | | | | [address] | | | | | | [place] | | | | | | [address] | | | | | | [phone] | | | | | | | | +--------+ + + + + | 03/25/ | Office | Hematology & | Sandra Patel MD | | | 2018 | Visit | Oncology | [address] | | | | | | [place] | | | | | | [address] | | | | | | [phone] | | | | | | | | +--------+ + + + + documented as of this encounter Visit Diagnoses Not on filedocumented in this encounter"
--- OUTSIDE RECORDS SUMMARY | ~2019-01-30 | XMS | Encounter Summary ---
Demographics + + + | Address | [address] | | | [place] [address] | + + + | Home Phone [...] Team Providers + +------+ + | Care Inspector [employer] Name | Role | Phone | + [...] | | | | | | Road [place], [place] | | | | | | [address] | | | +--------+ + + + [...] | | | 2018 | | | [address] | | | | | | [place], [place] | | | | | | [address] | | | | | | [phone] | | | | | | | | +--------+ + + + + | 03/25/ | Office | Orthopedics | Lynda Basurto, | | | 2018 | Visit | | [address] | | | | | | [address] | | | | | | [place], [place] | | | | | | [address] | | | | | | [phone] | | | | | | | | +--------+ + + + + | 03/25/ | Office | Hematology & | Sandra Patel MD | | | 2019 | Visit | Oncology | [address] | | | | | | [place], [place] | | | | | | [address] | | | | | | [phone] | | | | | | | | +--------+ + + + + documented as of this encounter Visit Diagnoses Not on filedocumented in this encounter"
--- OUTSIDE RECORDS SUMMARY | ~2019-01-30 | XMS | Encounter Summary ---
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 | Role | Phone [...] | | | | Malignancies at | [facility], | | | | | [facility] | [place] [address] | | | | | [address] | [phone] | | | | | [address] | | | | | | Mailcode: [id number] | | | | | | [address] | | | | | | [place], [place] | | | | | | [address] | | | | | | [phone] | | | +--------+ + + + [...] [address] | | | | | | [place], [place] | | | | | | [address] | | | | | | [phone] | | | | | | | | +--------+ + + + + | 03/25/ | Office | Orthopedics | Rosy BasurtoMacarioLori, | | | 2018 | Visit | | [address] | | | | | | [address] | | | | | | [place], [place] | | | | | | [address] | | | | | | [phone] | | | | | | | | +--------+ + + + + | 03/25/ | Office | Hematology & | Sandra Patel MD | | | 2018 | Visit | Oncology | [address] | | | | | | [place], [place] | | | | | | [address] | | | | | | [phone] | | | | | | | | +--------+ + + + + documented as of this encounter Visit Diagnoses Not on filedocumented in this encounter"
--- OUTSIDE RECORDS SUMMARY | ~2019-01-30 | XMS | Encounter Summary ---
Demographics + + + | Address | [address] | | | [place] [address] | + + + | Home Phone [...] Team Providers + +------+ + | Care Material Control Clerk Name | Role | Phone | [...] + + | 03/23/ | Hospital | [facility] [address] | [place], | | | 2018 - | Encounter | [address] | MD Ann[address]le [address] | | | | | [address] | [address] | | | 04/01/ | | [place] [address] | Rd [place], [place] | | | 2017 | | [phone] | [address] | | | | | | [phone] | | | | | | | | | | | | Larry Pinto MD | | | | | | [address] | | | | | | [place], | | | | | | [place] [address] | | | | | | [phone] | | | | | | | | | | | | Greg Del Rosario | | | | | | MD Sho [address] | | | | | | [address] | | | | | | [place], [place] | | | | | | [address] | | | | | | [phone] | | | | | | | [...] Hematology/Medical Oncology at [facility] [phone] HemOnc 04/09/2018 3:10 PM Sandra Patel Hematology/Medical Oncology at [place] [address] [phone] [place] 04/09/2018 3:40 PM GallegosRegiotto Melendezartemio [facility] Orthopaedics & Rehabilitation [phone] [place] Discharge condition: Fair Discharge destination (If [...] 25 mg Tab Commonly known as: HYDRODIURIL Gmfgxzwpb-Ctrdveyuu-Fv-Mag-Sim [id number] mg/30 mL Mwsh Commonly known as: FIRST-MOUTHWASH [...] room air Abdominal: nontender, non-distended, obese Skin: [place], warm, well-perfused, no ecchymoses Extremities: LLE ntqqq-xlw-lrdi amputation site dressed in compression wrap. Drain [...] MD I spent more than 36 minutes dvdj-sw-ftci with the patient of which greater than 50% was sp ent counseling the patient coordinating care. documented in th is encounter Discharge Instructions Instructions Rashida Thompson RN - 04/01/2018In order to receive services for line care and l ab work at [facility] Out Patient Infusion/Day Surgery: you will first need to be seen by an MD (with privilidges at [facility] Walk in clinic). Please go in to [facility] walk in [facility] to see an MD prior to your Saturday04/04/2018 appointment with the [facility] Infusion /Day Surgery appointment for your lab [...] Orthopaedic Attending: Tati Cage 1985 32 y.o. [id number] 04/01/2018 03/23/2018 9 Macie Torre MD Diagnosis(es): [...] zosyn x 6 weeks through [facility] existing port. Care Protocol Items: 1. Immobility [...] to make a follow up appointment in [facility] 2 weeks with ORTHO ONCOLOGY, Odalys Justen - (Sb and Jorge L) Junaid Burrell MD Orthopaedic Surgery, R3 [id number] 03/31/2018 ich Cesia, NEWS COMMENTATOR - 04/01/2018 12:14 PM PDT Orthopaedic Surgery Progress Note Patient: /Age: MRN: CSN: Date: Admission Date: Hospital Day: Orthopaedic Attending: Tati Cage 1985 32 y.o. [id number] 04/01/2018 03/23/2018 9 Macie Torre MD Diagnosis(es): [...] infection or alberto inage. Cesia Foster NP [facility] [address] [facility] [place] [address] Lynda Ravi MD - 04/01/2018 11:49 AM [...] consulted, see above plan # Pancytopenia # Ursrz-vg-jqhiyxw anemia Pt's WBC and platelets have recovered, [...] n 03/17/18. - Pt beingfollowed by onc [facility], appreciate recs. Dr. Sandra Patel is [...] and hemat ology workup. Dawit Amaya, MS4 [facility] [id number] Associated attestation - Greg Del Rosario MD [...] with our plans. Greg Del Rosario MD [employer] Division of Hospital Medicine Teaching Attending I spent 37 minutes in the care of this patient, >50% engaged in bedside counseling or coord ination of care with orthopedics, anesthesia pain service.Bela Holt MD - 018 9:28 AM PDTPt weaned off PNB. Catheter pulled. Tip intact. Coag status normal prior to removal of catheter. APS will sign-off. Please pg APS [phone] with questions/concerns. Bela Holt MD APS # [id number] Lynda Ravi MD - 03/31/2018 9:14 AM [...] Attending: Tati Wilkerson Cage 1985 32 y.o. [id number] 03/31/2018 03/23/2018 8 Macie Torre MD Diagnosis(es): [...] to make a follow up appointment in [facility] 2 weeks with ORTHO ONCOLOGY, Odalys Tobin - (Sb and Jorge L) Junaid Burrell MD Orthopaedic Surgery, R3 [id number] 03/31/2018 Cesia Fay M D - 03/30/2018 4:51 PM PDTAPS Clarification Note; Tonight the continuous rate on the nerve block will be to 0 ml/hr and bolus only will be in place. Catheter will be pulled Saturday morning. Cesia Gaitan MD [facility] [address] [facility], 4th Floor Mail Code: [address] [address] Rafael Mann MD - 03/30/2018 4:35 PM [...] on 03/17/18. - Pt beingfollowed by onc [facility], appreciate recs. Dr. Sandra Patel is her primary oncologist and she will have follow up on 04/09 to discuss cycle 3 planning. # mild LE edema Suspect due to IVF. - compression stocking to RLE. - will consider lasix # Pancytopenia # Mjbkc-of-scvgmoy anemia Likely hypoproliferationin setting of recentsystemic chemotherapy and acute inflammatio n. Will continue to monitor and transfuse as needed, goal >7. - She has received a total of 5 units of pRBCs at [facility] and 1 unit previously at OSH. [...] Rafael Shell PGY-2 Internal Medicine Pager # [phone] Associated attestation - Greg Del Rosario MD [...] with our plans. Greg Del Rosario MD [employer] Division of Hospital Medicine Teaching Attending I [...] 25 mg 25 mg oral Q6H PRN vvizqtwcttBVAUL-omhjdzfgn-CZQKML (SPECIAL MOUTHWASH) suspension (compound) 5 mL 5 [...] 25 mg 25 mg oral Q6H PRN ckwtxuybvnMSYEC-kxerjxjry-CLJVKT (SPECIAL MOUTHWASH) suspension (compound) 5 mL 5 [...] Orthopaedic Attending: Tati Cage 1985 32 y.o. [id number] 03/30/2018 03/23/2018 7 Macie Torre MD Diagnosis(es): [...] zosyn x 6 weeks through [facility] existing port. Will be tapering nerve block [...] to make a follow up appointment in [facility] 2 weeks with ORTHO ONCOLOGY, Odalys OconnorJusten - (Sb and Jorge L) Adam Jean MD Pager: [phone] Dawit Gilliam - 4:46 PM PDT General [...] on 03/17/18. - Pt beingfollowed by onc [facility], appreciate recs. Dr. Sandra Patel is her primary oncologist . Oncology team communicating with Dr. Patel. - Coordinating with onc and ortho regarding plan for timing of cycle 3 of chemotherapy, whi ch will need to be delayed to allow for healing after infection. # Pancytopenia # Irhnp-yu-searjom anemia Likely hypoproliferationin setting of recentsystemic chemotherapy and acute inflammatio n. Will continue to monitor and transfuse as needed, goal >7. - Hg 6.8 this morning --> pRBC x1 today - She has received a total of 5 units of pRBCs at [facility] and 1 unit previously at OSH. [...] Dispo: Continue inpatient care Dawit Amaya, MS4 [facility] Pager [phone] signed by Greg Del Rosario MD at [...] with our plans. Greg Del Rosario MD [employer] Division of Hospital Medicine Teaching Attending I [...] Orthopaedic Attending: Tati Cage 1985 32 y.o. [id number] 03/29/2018 03/23/2018 6 Macie Torre MD Diagnosis(es): [...] to make a follow up appointment in [facility] 2 weeks with ORTHO ONCOLOGY, Odalys Tobin - (Sb and Jorge L) Adam Jean MD Pager: [phone] Tawana Dawit Sho - 1:33 PM PDT [...] in 4/5. Pathology Report from 03/24/18 left sqxlc-azm-radv amputation site debridement: "A. Soft tissue, left [...] on 03/17/18. - Pt beingfollowed by onc [facility], appreciate recs. Dr. Sandra Patel is her primary oncologist . Oncology team will communicate with Dr. Patel. - Coordinating with onc and ortho regarding plan for timing of cycle 3 of chemotherapy, whi ch will need to be delayed to allow for healing after infection. # Pancytopenia # Arslh-qw-opvybbs anemia Likely hypoproliferationin setting of recentsystemic chemotherapy and acute inflammatio n. Will continue to monitor and transfuse as needed, goal >7. - Hg 9.2 this morning. - She has received at total of 4 units of pRBCs at [facility] and 1 unit previously at OSH. [...] Dispo: Continue inpatient care Dawit Amaya, MS4 [facility] Pager [phone] signed by Greg Del Rosario MD at [...] with our plans. Greg Del Rosario MD [employer] Division of Hospital Medicine Teaching Attending I [...] Orthopaedic Attending: Tati Cage 1985 32 y.o. [id number] 03/28/2018 03/23/2018 5 Macie Torre MD Diagnosis(es): [...] to make a follow up appointment in [facility] 2 weeks with ORTHO ONCOLOGY, Odalys Tobin [...] diminished to light touch near wound edge. Juanid Burrell MD Orthopaedic Surgery, R3 [id number] 03/26/2018 t Madiha Lopez FNP - 03/28/2018 [...] 25 mg 25 mg oral Q6H PRN strvfjiiypUFLZI-wsrbrmxme-TTPBDL (SPECIAL MOUTHWASH) suspension (compound) 5 mL 5 [...] on file Social History Narrative Works in [employer] at a [employer] near [place]. No kids. Lives with her mother Kika. [...] by primary care team. Madiha Rebollar DNP, HEALTH INFORMATION SYSTEMS TECHNICIAN-C [facility] [address] [place] [address] Lynda Ravi MD - 03/28/2018 8:06 AM [...] Ricardo Morales MD/PhD Anesthesiology CA-2 APS pager [phone] signed by Arnold Street MD at 03/28/2018 [...] neutropenia after c hemotherapy. # Pancytopenia # Greon-uq-kyzkevt anemia Likely hypoproliferation in setting of recentsystemic chemotherapy and acute inflammation . Will continue to monitor and transfuse as needed, goal >7. - Hg 8.0 this morning prior to procedure today, 7.4 after. EBL of 200 mL during procedure. - She has received at total of 4 units of pRBCs at [facility] and 1 unit previously at OSH. [...] on 03/17/18. - Pt beingfollowed by onc [facility], appreciate recs. Dr. Sandra Patel is [...] Dispo: Continue inpatient care Dawit Amaya, MS4 [facility] Pager [phone] signed by Greg Del Rosario MD at [...] with our plans. Greg Del Rosario MD [employer] Division of Hospital Medicine Teaching Attending I [...] units of pRBCs have been given at [facility], with 1 unit given at OSH. [...] returning to the OR. # Pancytopenia # Ddzsh-kl-cbnjrdo anemia Likely hypoproliferation in setting of recentsystemic chemotherapy and acute inflammation . No evidence of acute blood loss or hemolysis. Drainage from wound vac has been minimal. Wi ll continue to monitor and transfuse as needed, goal >7. - Hg improved to 9.2 today after an additional unit of pRBCs this morning. She has received at total of 4 units of pRBCs at [facility] and 1 unit previously at OSH. [...] 03/17/18. - Pt being followed by onc [facility], appreciate recs. Dr. Sandra Patel is [...] Dispo: Continue inpatient care Dawit Amaya, MS4 [facility] Pager [phone] signed by Greg Del Rosario MD at [...] with our plans. Greg Del Rosario MD [employer] Division of Hospital Medicine Teaching Attending I [...] Orthopaedic Attending: Tati Cage 1985 32 y.o. [id number] [id number] 03/26/2018 03/23/2018 3 Macie Torre MD Diagnosis(es): [...] to make a follow up appointment in [facility] 2 weeks with ORTHO ONCOLOGY, Odalys Tobin [...] to light touch near wound edge. Junaid Burrlel MD Orthopaedic Surgery, R3 [id number] 03/26/2018 Greg Dean MD - 03/25/2018 9:59 PM PDTGeneral Medicine Attending Progress Note Author: Greg Del Rosario MD Hospital Day # 2 PCP: Santo Gooden MD I personally interviewed the patient, performed the romero elements of the physical examinatio n, and personally formulated the assessment and plan with Dr Cornejo and Dawit Aamya MS IV . Please see progress note [...] with our plans. Greg Del Rosario MD Shade Class[employer] Division of [facility] Medicine Teaching Attending I spent 35 minutes [...] Orthopaedic Attending: Tati Cage 1985 32 y.o. [id number] 03/25/2018 03/23/2018 2 Macie Torre MD Diagnosis(es): [...] to make a follow up appointment in [facility] 2 weeks with ORTHO ONCOLOGY, Odalys Tobin [...] knee. Reflexes: not performed Sorin Aguirre MD [facility] Department of Orthopaedics & Rehabilitation [address] [facility] Mail Code: OP31 [place] [address] awit Amaya - 03/03 7:30 AM PDT [...] 03/17/18. - Pt being followed by onc [facility], appreciate recs. Dr. 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 Remainder of plan per her some industrial design intern note attached. Yves "Eleanor Cornejo MD Internal Medicine PGY-2 P This note has been documented with the assistance of voice recognition software. Please not e, there may be typographic or semantic errors as a result. The medical plan has been review ed and is considered complete and correct. AmayaAdalbertojj Berkowizt - 03/24/2018 4:39 PM PDT General Internal Medicine 1 Progress Note 24 Hour Events: - Irrigation and debridement of left fqpke-ssq-rwpr amputation stump followed by wound vac placement, [...] Dispo: Continue inpatient care Dawit Amaya, MS4 [facility] Pager [phone] signed by Greg Del Rosario MD at [...] TSERING DUMONT MD,MPH PGY-5 Orthopaedic Surgery Pager: [phone] Deann Andrew MD - 03/24/2018 2:00 AM [...] Federico Simpson MD Orthopedic Surgery, R2 Pager [phone] documented in this encounter Plan of Treatment +--------+ + + + + | Date | Type | Specialty | Care Team | Description | +--------+ + + + + | 03/25/ | Appointment | Radiology | Sandra Patel MD | | | 2018 | | | [address] | | | | | | [place], [place] | | | | | | [address] | | | | | | [phone] | | | | | | | | +--------+ + + + + | 03/25/ | Office | Orthopedics | Lynda Basurto, | | | 2018 | Visit | | [address] | | | | | | [address] | | | | | | [place], [place] | | | | | | [address] | | | | | | [phone] | | | | | | | | +--------+ + + + + | 03/25/ | Office | Hematology & | Sandra Patel MD | | | 2019 | Visit | Oncology | [address] | | | | | | [place], [place] | | | | | | [address] | | | | | | [phone] | | | | | | | [...] | | | LABORATORY | | | SOMALI | | | SERVICES, | | | [...] [facility] | [address] | [place] [address] | | | SERVICES, CORE | PARK [...] [facility] | [address] | [place] [address] | | | SERVICES, CORE | SARAHY [...] | + + + + + | [facility] | [address] | [place] [address] | | | SERVICES, CORE | SARAHY [...] [facility] | [address] | [place] [address] | | | SERVICES, CORE | PARK [...] | + + + + + | [facility] | [address] | [place] [address] | | | SERVICES, CORE | SARAHY [...] administered. FINDINGS: The patient has a left fgfoa-hhr-ldov | | | amputation. A surgical drain [...] administered. FINDINGS: The patient has a left yjscy-pub-rovh amputation. A surgical | | drain is [...] | + + + + + | [facility] | [address] | [place] [address] | | | ANTON[address] ANGUIANO | SARAHY [...] [facility] | [address] | [place] [address] | | | SERVICES, | [address] [...] | | | LABORATORY | | | SOMALI | | | SERVICES, | | | [...] | Interpretive Information: <60 mL/min/1.73 sq | [facility] | | m Chronic Kidney Disease <15 [...] [facility] | [address] | [place] [address] | | | SERVICES, CORE | PARK [...] | + + + + + | [facility] | [address] | [place] [address] | | | SERVICES, CORE | SARAHY [...] [facility] | [address] | [place] [address] | | | SERVICES, | [address] [...] [facility] | [address] | [place] [address] | | | SERVICES, CORE | PARK [...] | + + + + + | [facility] | [address] | [place] [address] | | | SERVICES, CORE | PARK [...] + + + + | PRODUCT | [id number] | | [facility] | | | UNIT [...] + + + + | EXPIRATION | [id number] | | [facility] | | | DATE [...] + + + + | BLOOD | [id number] | | [facility] | | | PRODUCT [...] | [facility] | [address] [facility] | [place] [address] | | | SERVICES, | [address] [...] + + + + | PRODUCT | [id number] | | [facility] | | | UNIT [...] + + + + | EXPIRATION | [id number] | | [facility] | | | DATE [...] + + + + | BLOOD | [id number] | | [facility] | | | PRODUCT [...] [facility] | [address] | [place] [address] | | | SERVICES, | [address] [...] + + + + | PRODUCT | [id number] | | [facility] | | | UNIT [...] + + + + | EXPIRATION | [id number] | | [facility] | | | DATE [...] + + + + | BLOOD | [id number] | | [facility] | | | PRODUCT [...] [facility] | [address] | [place] [address] | | | SERVICES, | [address] [...] | + + + + + | [facility] | [address] [facility] | [place] [address] | | | SERVICES, CORE | SARAHY [...] [facility] | [address] | [place] [address] | | | SERVICES, CORE | PARK [...] | + + + + + | [facility] | [address] [facility] | [place] [address] | | | SERVICES, CORE | PARK [...] | | | LABORATORY | | | SOMALI | | | SERVICES, | | | [...] Interpretive Information: <60 mL/min/1.73 sq | SERVICES, [facility] | | m Chronic Kidney Disease <15 [...] [facility] | [address] | [place] [address] | | | SERVICES, CORE | PARK [...] [facility] | [address] | [place] [address] | | | ANTONI ANGUIANO | SARAHY [...] [facility] | [address] | [place], [place] | | | [facility] | [address] | [address] | | | TESTS | | | [...] | + + + + + | [facility] | [address] [facility] | [place] [address] | | | SERVICES, CORE | SARAHY [...] | | | LABORATORY | | | SOMALI | | | SERVICES, | | | [...] [facility] | [address] | [place] [address] | | | SERVICES, CORE | PARK [...] | + + + + + | [facility] | [address] | [place] [address] | | | SERVICES, CORE | PARK [...] [facility] | [address] | [place] [address] | | | SERVICES, | [address] [...] | + + + + + | [facility] | [address] | [place] [address] | | | SERVICES, | [address] [...] + + + + | PRODUCT | [id number] | | [facility] | | | UNIT [...] + + + + | EXPIRATION | [id number] | | [facility] | | | DATE [...] + + + + | BLOOD | [id number] | | [facility] | | | PRODUCT [...] [facility] | [address] | [place] [address] | | | SERVICES, | [address] [...] - [facility] | [address] | [place], [place] | | | [facility] | [facility] | [address] | | | TESTS | | | [...] | + + + + + | [facility] | [address] | [place] [address] | | | SERVICES, CORE | PARK [...] | | | LABORATORY | | | SOMALI | | | SERVICES, | | | [...] [facility] | [address] | [place] [address] | | | SERVICES, CORE | PARK [...] [facility] | [address] | [place] [address] | | | SERVICES, CORE | PARK [...] [facility] | [address] | [place] [address] | | | SERVICES, ANTONI | PARK [...] [facility] | [address] | [place] [address] | | | SERVICES, CORE | PARK [...] | | | LABORATORY | | | SOMALI | | | SERVICES, | | | [...] [facility] | [address] | [place] [address] | | | SERVICES, CORE | SARAHY [...] | + + + + + | [facility] | [address] | [place] [address] | | | ANTONI ANGUIANO | [address] | | | + + + + + OPERATION RECORD (03/27/2018 12:10 PM PDT) + + | Procedure Note | + + | Lynda Basurto MD - 03/27/2018 12:10 PM PDT Date of Service: 03/27/2018 | | Attending Surgeon: Lynda Basurto MD Tobacco Warehouse Manager(s): Odalys | | Mike Tobin PA-C. Please note no other qualified assistant surveyor was available. | | Preoperative Diagnosis: Infected [...] closure of the fascia. This was a 10-[place] | | channel drain. Please note, the [...] 03/27/2018 | | 11:18:37DT: 03/27/2018 12:10:06Job #: [id number] | + + CAPILLARY BLOOD GLUCOSE (NO [...] [facility] | [address] | [place], [place] | | | [facility] | [address] | [address] | | | TESTS | | | [...] [facility] | [address] | [place], [place] | | | [facility] | [address] | [address] | | | TESTS | | | [...] - | | | | | | [facility] | | + + + + + [...] Gram Stain: No squamous epithelial cells | [place] | | Rare polymorphonuclear cells No organisms seen | | + + + + + + + + | Performing | Address | City/State/Zipcode | Phone Number | | Organization | | | | + + + + + | [facility] - | [address] | [place] [address] | | | [place] | | | | + + + [...] + | [facility] - | [address] | [place] [address] | | | [place] | | | [...] + | [facility] - | [address] | [place] [address] | | | [place] | | | [...] Stain: No squamous epithelial cells No | [place] | | polymorphonuclear cells No organisms seen | | + + + + + + + + | Performing | Address | City/State/Zipcode | Phone Number | | Organization | | | | + + + + + | [facility] | [address] | [place] [address] | | | [place] | | | [...] Gram Stain: No squamous epithelial cells | [place] | | Rare polymorphonuclear cells No organisms seen | | + + + + + + + + | Performing | Address | City/State/Zipcode | Phone Number | | Organization | | | | + + + + + | [facility] | [address] | [place] [address] | | | [place] | | | [...] - [facility] | [address] | [place], [place] | | | [facility] | [address] | [address] | | | TESTS | | | [...] [facility] | [address] | [place] [address] | | | SERVICES, CORE | SARAHY [...] | + + + + + | [facility] | [address] | [place] [address] | | | SERVICES, CORE | PARK [...] | + + + + + | [facility] | [address] [facility] | [place] [address] | | | SERVICES, ANTONI | PARK [...] | | | LABORATORY | | | SOMALI | | | SERVICES, | | | [...] | + + + + + | [facility] | [address] | [place] [address] | | | ANTONI ANGUIANO | SARAHY [...] [facility] | [address] | [place] [address] | | | SERVICES, CORE | PARK [...] | + + + + + | [facility] | [address] [facility] | [place] [address] | | | SERVICES, CORE | SARAHY [...] | | | LABORATORY | | | SOMALI | | | SERVICES, | | | [...] | + + + + + | [facility] | [address] | [place] [address] | | | SILVIO, ANTONI | SARAHY [...] + + + + | PRODUCT | [id number] | | [facility] | | | UNIT [...] + + + + | EXPIRATION | [id number] | | [facility] | | | DATE [...] + + + + | BLOOD | [id number] | | [facility] | | | PRODUCT [...] [facility] | [address] | [place] [address] | | | SERVICES, | [address] [...] [facility] | [address] | [place] [address] | | | SERVICES, CORE | PARK [...] | + + + + + | [facility] | [address] | [place] [address] | | | SERVICES, CORE | PARK [...] + + + + | PRODUCT | [id number] | | [facility] | | | UNIT [...] + + + + | EXPIRATION | [id number] | | [facility] | | | DATE [...] + + + + | BLOOD | [id number] | | [facility] | | | PRODUCT [...] | + + + + + | [facility] | [address] | [place] [address] | | | SERVICES, | [address] [...] [facility] | [address] | [place] [address] | | | SERVICES, CORE | PARK [...] | + + + + + | [facility] | [address] [facility] | [place] [address] | | | SERVICES, CORE | SARAHY [...] [facility] | [address] | [place] [address] | | | SERVICES, CORE | PARK [...] [facility] | [address] | [place] [address] | | | ANTONI ANGUIANO | SARAHY [...] [facility] | [address] | [place] [address] | | | SERVICES, CORE | PARK [...] | + + + + + | [facility] | [address] [facility] | [place] [address] | | | SERVICES, CORE | SARAHY [...] | | | LABORATORY | | | SOMALI | | | SERVICES, | | | [...] | + + + + + | [facility] | [address] | [place] [address] | | | SERVICES, ANTONI | SARAHY [...] + + + + | PRODUCT | [id number] | | [facility] | | | UNIT [...] + + + + | EXPIRATION | [id number] | | [facility] | | | DATE [...] + + + + | BLOOD | [id number] | | [facility] | | | PRODUCT [...] [facility] | [address] | [place] [address] | | | SERVICES, | [address] [...] [facility] | [address] | [place] [id number] | | | SERVICES, CORE | PARK [...] [facility] | [address] | [place] [address] | | | SERVICES, CORE | PARK [...] [facility] | [address] | [place] [address] | | | ANTONI ANGUIANO | SARAHY [...] | + + + + + | [facility] | [address] | [place] [address] | | | ANTONI ANGUIANO | [address] | | | + + + + + DEBRIDEMENT OF BELOW KNEE AMPUTATION STUMP (03/24/2018 1:31 PM PDT) + + + | Narrative | Performed At | + + + | Macie Torre MD 03/24/2018 1:49 PM [facility] | | | [facility] DEPARTMENT OF ORTHOPAEDICS & REHABILITATION | | | OPERATIVE REPORT | | | Patient | | | Name: Tati Cage Date of : 1985 Medical Record | | | Number: [id number] Contract Serial Number:: [id number] Report | | | Author: MACIE TORRE MD Procedure Date: 03/24/2018 | | | Attending Physician: 1. MACIE TORRE MD Tobacco Warehouse Manager(s): | | | 1. Tsering Dumont MD [...] and | | | fascia. Wound size [id number] after tacking back fascia | | | [...] in the remaining wound | | | [id number]. Excellent seal was attained. The patient was [...] [facility] | [address] | [place], [place] | | | MINNIE OSORIO OF [place] | [facility] | [address] | | | TESTS | | | [...] | | | | | | number [id number]. Leg, | | | | | | [...] | + + + + + | [facility] | [address] | [place] [address] | | | PATHOLOGY | [address] [...] + | [facility] | [address] | [place] [address] | | | [place] | | | | + + + [...] negative Staphylococcus species Please contact the | [place] | | microbiology laboratory if further work [...] + | [facility] | [address] | [place] [address] | | | [place] | | | | + + + + + CULTURE, TISSUE (03/24/2018 11:58 AM PDT) + + + + + + | Component | Value | Ref Range | Performed | Pathologist | | | | | At | Signature | + + + + + + | CULTURE | Escherichia coli (A) | | [facility] - | | | RESULT | | [...] AM for susceptibilities 1+ Prevotella bivia | [facility] - | | Gram Stain: No squamous epithelial cells No polymorphonuclear | [place] | | cells No organisms seen | | + + + + + + + + | Performing | Address | City/State/Zipcode | Phone Number | | Organization | | | | + + + + + | [facility] | [address] | [place] [address] | | | [place] | | | [...] Gram Stain: No squamous epithelial cells | [place] | | Rare polymorphonuclear cells No organisms seen | | + + + + + + + + | Performing | Address | City/State/Zipcode | Phone Number | | Organization | | | | + + + + + | [facility] | [address] | [place] [address] | | | [place] | | | [...] Gram Stain: No squamous epithelial cells | [facility] - | | No polymorphonuclear cells No organisms seen | [place] | + + + + + + [...] + | [facility] | [address] | [place] [address] | | | [place] | | | | + + + [...] + + + + | PRODUCT | [id number] | | [facility] | | | UNIT [...] + + + + | EXPIRATION | [id number] | | [facility] | | | DATE [...] + + + + | BLOOD | [id number] | | [facility] | | | PRODUCT [...] | + + + + + | [facility] | [address] | [place] [address] | | | SERVICES, | [address] [...] + + + + | PRODUCT | [id number] | | [facility] | | | UNIT [...] + + + + | EXPIRATION | [id number] | | [facility] | | | DATE [...] + + + + | BLOOD | [id number] | | [facility] | | | PRODUCT [...] [facility] | [address] | [place] [address] | | | SERVICES, | [address] [...] + + + + | PRODUCT | [id number] | | [facility] | | | UNIT [...] + + + + | EXPIRATION | [id number] | | [facility] | | | DATE [...] + + + + | BLOOD | [id number] | | [facility] | | | PRODUCT [...] [facility] | [address] | [place] [address] | | | SERVICES, | [address] [...] [facility] | [address] | [place] [address] | | | SILVIO, ANTONI | PARK [...] | + + + + + | [facility] | [address] | [place] [address] | | | SERVICES, CORE | SARAHY [...] + + | [facility] | [address] [facility] | [place] [address] | | | SERVICES, CORE | PARK [...] | | | LABORATORY | | | SOMALI | | | SERVICES, | | | [...] | + + + + + | [facility] | [address] | [place] [address] | | | SERVICES, CORE | PARK [...] [facility] | [address] | [place] [address] | | | ANTONI ANGUIANO | PARK [...] + + + + | PRODUCT | [id number] | | [facility] | | | UNIT [...] + + + + | EXPIRATION | [id number] | | [facility] | | | DATE [...] + + + + | BLOOD | [id number] | | [facility] | | | PRODUCT [...] | + + + + + | [facility] | [address] | [place] [address] | | | SERVICES, | [address] [...] [facility] | [address] | [place] [address] | | | SERVICES, CORE | PARK [...] | + + + + + | [facility] | [address] | [place] [address] | | | SERVICES, CORE | PARK [...] | + + + + + | [facility] | [address] | [place] [address] | | | SERVICES, CORE | SARAHY [...] [facility] | [address] | [place] [address] | | | SERVICES, CORE | PARK [...] | + + + + + | [facility] | [address] [facility] | [place] [address] | | | SERVICES, CORE | SARAHY [...] | | | LABORATORY | | | SOMALI | | | SERVICES, | | | [...] | + + + + + | [facility] | [address] [facility] | [place] [address] | | | ANTONI ANGUIANO | [address] [...] [facility] | [address] | [place] [address] | | | SERVICES, CORE | PARK [...] [facility] | [address] | [place] [address] | | | SERVICES, CORE | PARK [...] [facility] | [address] | [place] [address] | | | SERVICES, | [address] [...] [facility] | [address] | [place] [address] | | | SERVICES, CORE | PARK [...] [facility] | [address] | [place] [address] | | | SERVICES, | [address] [...] [facility] | [address] | [place] [address] | | | SERVICES, CORE | [address] | | | + + + + + CULTURE, BLOOD [facility] (03/23/2018 4:40 PM PDT) + + [...] | + + + + + | [facility] | [address] | [place] [address] | | | SERVICES, CORE | PARK [...] [facility] | [address] | [place] [address] | | | SILVIO, ANTONI | PARK [...] | + +---+ | | | | [id number] | | | (SPECIAL MOUTHWASH) suspension | [...] | | | | | 1544, Until [place] 03/30/18 at 0852, | | | | [...]
--- OUTSIDE RECORDS SUMMARY | ~2019-01-30 | XMS | Encounter Summary ---
Demographics + + + | Address | [address] | | | [place] [address] | + + + | Home Phone [...] Team Providers + +------+ + | Care Still Operator Gin Name | Role | Phone | + [...] (Work release | | 2018 | | [facility] [address] | [address] [facility] | letter) | | | | Sonia Mailcode: CH12A | [address] | | | | | [facility] | [place], [place] | | | | | and [place] | [address] | | | | | Floor [place], [place] | [phone] | | | | | [address] | | | | | | [phone] | | | +--------+ + + + [...] | | | 2018 | | | [address] | | | | | | [place], [place] | | | | | | [address] | | | | | | [phone] | | | | | | | | +--------+ + + + + | 03/25/ | Office | Orthopedics | Rosy BasurtoAlexander, | | | 2018 | Visit | | [address] | | | | | | [address] | | | | | | [place], [place] | | | | | | [address] | | | | | | [phone] | | | | | | | | +--------+ + + + + | 03/25/ | Office | Hematology & | Sandra Patel MD | | | 2018 | Visit | Oncology | [address] | | | | | | [place], [place] | | | | | | [address] | | | | | | [phone] | | | | | | | | +--------+ + + + + documented as of this encounter Visit Diagnoses Not on filedocumented in this encounter"
--- OUTSIDE RECORDS SUMMARY | ~2019-01-30 | XMS | Encounter Summary ---
Demographics + + + | Address | [address] | | | [place] [address] | + + + | Home Phone [...] Team Providers + +------+ + | Care Employer Relations Representative Name | Role | Phone | [...] | | 2018 | | [facility] [place] | [address] | | | | | for [facility] | [place], [place] | | | | | [address] | [address] | | | | | Mailcode: [place] | [phone] | | | | | for Health and | | | | | | [address] [place] [address] | | | | | | [place], [place] | | | | | | [address] | | | | | | [phone] | | | +--------+ + + + [...] [place] | | | | | | [address] | | | | | | [phone] | | | | | | | | +--------+ + + + + | 03/25/ | Office | Orthopedics | Rosy BasurtoAlexander, | | | 2018 | Visit | | [address] | | | | | | [address] | | | | | | [place], [place] | | | | | | [address] | | | | | | [phone] | | | | | | | | +--------+ + + + + | 03/25/ | Office | Hematology & | Sandra Patel MD | | | 2018 | Visit | Oncology | [address] | | | | | | [place], [place] | | | | | | [address] | | | | | | [phone] | | | | | | | | +--------+ + + + + documented as of this encounter Visit Diagnoses + + | Diagnosis | + + | 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
--- OUTSIDE RECORDS SUMMARY | ~2019-01-30 | XMS | Encounter Summary ---
Demographics + + + | Address | [address] | | | [place] [address] | + + + | Home Phone [...] Team Providers + +------+ + | Care Certified Hyperbaric Technologist Name | Role | Phone | [...] | | 2018 | | [facility] [place] | | | | | | [facility] | | | | | | [address] | | | | | | Mailcode: [place] | | | | | | for Health and | | | | | | [facility] | | | | | | [place], [place] | | | | | | [address] | | | | | | [phone] | | | +--------+ + + + [...] [address] | | | | | | [place], [place] | | | | | | [address] | | | | | | [phone] | | | | | | | | +--------+ + + + + | 03/25/ | Office | Orthopedics | Paul Basurtoen, | | | 2018 | Visit | | [address] | | | | | | [address] | | | | | | [place], [place] | | | | | | [address] | | | | | | [phone] | | | | | | | | +--------+ + + + + | 03/25/ | Office | Hematology & | Sandra Patel MD | | | 2018 | Visit | Oncology | [address] | | | | | | [place], [place] | | | | | | [address] | | | | | | [phone] | | | | | | | | +--------+ + + + + documented as of this encounter Visit Diagnoses Not on filedocumented in this encounter"
--- OUTSIDE RECORDS SUMMARY | ~2019-01-30 | XMS | Encounter Summary ---
Demographics + + + | Address | [address] | | | [place] [address] | + + + | Home Phone [...] Providers + +------+ + | Care Beam Machine Operator Name | Role | Phone [...] Rehabilitation at | [address] | ([facility]) (Primary Dx) | | | | [facility] [address] | [address] | | | | | [address] Mailcode: | [place], [place] | | | | | [place] [facility] | [address] | | | | | and Healing, | [phone] | | | | | [address] | | | | | | [place], [place] | | | | | | [address] | | | | | | [phone] | | | +--------+---------+ + + + [...] | | | 2018 | | | [address] | | | | | | [place], [place] | | | | | | [address] | | | | | | [phone] | | | | | | | | +--------+ + + + + | 03/25/ | Office | Orthopedics | Lynda Basurto, | | | 2018 | Visit | | [address] | | | | | | [address] | | | | | | [place], [place] | | | | | | [address] | | | | | | [phone] | | | | | | | | +--------+ + + + + | 03/25/ | Office | Hematology & | Sandra Patel MD | | | 2019 | Visit | Oncology | [address] | | | | | | [place], [place] | | | | | | [address] | | | | | | [phone] | | | | | | | | +--------+ + + + + documented as of this encounter Visit Diagnoses + + | Diagnosis | + + | 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
--- OUTSIDE RECORDS SUMMARY | ~2019-01-30 | XMS | Encounter Summary ---
Demographics + + + | Address | [address] | | | [place] [address] | + + + | Home Phone [...] Team Providers + +------+ + | Care Electric Cutter Operator Name | Role | Phone | [...] IRRIGATION AND | | 2018 | | [facility] | MD [address] [facility] | DEBRIDEMENT LEFT | | | | Admitting Desk | [facility] | BELOW KNEE | | | | Located on the | [place], [place] | AMPUTATION SITE, | | | | floor [address] [facility] [facility] | [address] | WOUND VAC CHANGE, | | | | [address] | [phone] | REVISION BELOW KNEE | | | | [place], [place] | | AMPUTATION | | | | [address] | | | +--------+---------+ + + + [...] and reticulocyte count on 04/04/[address] [facility]. Appointments: Future Appointments Provider Department Dept Phone Center 04/09/2018 2:00 PM Hem Starter Nurse Hematology/Medical Oncology at [facility] [phone] HemOnc 04/09/2018 3:10 PM Sandra Patel Hematology/Medical Oncology at [place] [address] [phone] [place] 04/09/2018 3:40 PM Lynda Basurto [facility] Orthopaedics & Rehabilitation [phone] [place] Discharge condition: Fair Discharge destination (If [...] anxiety (1st line nausea/vomiting). Miscellaneous Medical Supply [facility] Commonly known as: Miscellaneous Medical Supply Bedside [...] 25 mg Tab Commonly known as: HYDRODIURIL Fdkcvuoft-Eumxwgtcc-Kt-Mag-Sim [id number] mg/30 mL Mwsh Commonly known as: FIRST-MOUTHWASH [...] room air Abdominal: nontender, non-distended, obese Skin: [place], warm, well-perfused, no ecchymoses Extremities: LLE tmirk-ipp-juss amputation site dressed in compression wrap. Drain [...] MD I spent more than 36 minutes mihi-rr-ohox with the patient of which greater than 50% was sp ent counseling the patient coordinating care. documented in th is encounter Discharge Instructions Instructions Rashida Thompson RN - 04/01/2018In order to receive services for line care and l ab work at [facility] Out Patient Infusion/Day Surgery: you will first need to be seen by an MD (with privilidges at [facility] in clinic). Please go in to [facility] in clinic to see an MD prior to your Saturday04/04/2018 appointment with the [facility] Infusion /Day Surgery appointment for [...] Orthopaedic Attending: Tati Cage 1985 32 y.o. [id number] [id number] 04/01/2018 03/23/2018 9 Macie Torre MD Diagnosis(es): [...] ID recs: zosyn x 6 weeks through [facility]'s existing port. Care Protocol Items: 1. [...] to make a follow up appointment in [facility] 2 weeks with ORTHO ONCOLOGY, Odalys Tobin - (Adela) Junaid Burrell MD Orthopaedic Surgery, R3 [id number] 03/31/2018 esia Foster NP - 04/01/2018 12:14 PM PDT Orthopaedic Surgery Progress Note Patient: /Age: MRN: CSN: Date: Admission Date: Hospital Day: Orthopaedic Attending: Tati Cage 1985 32 y.o. [id number] 04/01/2018 03/23/2018 9 Macie Torre MD Diagnosis(es): [...] soft, non-distended. LLE dressing removed and SINAN laberto in pulled - tip intact. Scant amount [...] infection or alberto inage. Cesia Foster NP [facility] [address] [facility] [place] [address] Lynda Ravi MD - 04/01/2018 11:49 AM [...] consulted, see above plan # Pancytopenia # Nncjo-zx-twfvzqo anemia Pt's WBC and platelets have recovered, [...] n 03/17/18. - Pt beingfollowed by onc [facility], appreciate recs. Dr. Sandra Patel is [...] hemat ology workup. Dawit Jose Luis, MS4 [facility] [id number] Associated attestation - Greg Del Rosario MD [...] with our plans. Greg Del Rosario MD Physician Compensation Analyst Division of Hospital Medicine Teaching Attending I spent 37 minutes in the care of this patient, >50% engaged in bedside counseling or coord ination of care with orthopedics, anesthesia pain service.Bela Holt MD - 018 9:28 AM PDTPt weaned off PNB. Catheter pulled. Tip intact. Coag status normal prior to removal of catheter. APS will sign-off. Please pg APS [phone] with questions/concerns. Bela Holt MD APS # [id number] Lynda Ravi MD - 03/31/2018 9:14 AM [...] Orthopaedic Attending: Tati Cage 1985 32 y.o. [id number] 03/31/2018 03/23/2018 8 Macie Torre MD Diagnosis(es): [...] to make a follow up appointment in [facility] 2 weeks with ORTHO ONCOLOGY, Odalys Tobin - (Adela) uJnaid Burrell MD Orthopaedic Surgery, R3 [id number] 03/31/2018 esia Gaitan M D - 03/30/2018 4:51 PM PDTAPS Clarification Note; Tonight the continuous rate on the nerve block will be to 0 ml/hr and bolus only will be in place. Catheter will be pulled Saturday. Cesia Gaitan MD [facility] [address]L [address] [facility], 4th Floor Mail Code: CH4P [place], [place] [address] oRafael platt MD - 03/30/2018 4:35 PM [...] on 03/17/18. - Pt beingfollowed by onc [facility], appreciate recs. Dr. Sandra Patel is her primary oncologist and she will have follow up on 04/09 to discuss cycle 3 planning. # mild LE edema Suspect due to IVF. - compression stocking to RLE. - will consider lasix # Pancytopenia # Pygfy-ft-idddabu anemia Likely hypoproliferationin setting of recentsystemic chemotherapy and acute inflammatio n. Will continue to monitor and transfuse as needed, goal >7. - She has received a total of 5 units of pRBCs at [facility] and 1 unit previously at OSH. [...] Rafael Shell PGY-2 Internal Medicine Pager # [phone] Associated attestation - Greg Del Rosario MD [...] with our plans. Greg Del Rosario MD Physician Compensation Analyst Division of Hospital Medicine Teaching Attending I [...] 25 mg 25 mg oral Q6H PRN qtudkhmcxtVKKGC-oyvirodwu-TQBKJB (SPECIAL MOUTHWASH) suspension (compound) 5 mL 5 [...] 25 mg 25 mg oral Q6H PRN zciisdqzjqWAXAT-tzygtbsua-OTSSFX (SPECIAL MOUTHWASH) suspension (compound) 5 mL 5 [...] Orthopaedic Attending: Tati Cage 1985 32 y.o. [id number] 03/30/2018 03/23/2018 7 Macie Torre MD Diagnosis(es): [...] recs: zosyn x 6 weeks through [facility] existing [facility]. Will be tapering nerve block [...] to make a follow up appointment in [facility] 2 weeks with ORTHO ONCOLOGY, Odalys Clarktiste - (Sb and Jorge L) Adam Jean MD Pager: [phone] Dawit Gilliam - 4:46 PM PDT General [...] on 03/17/18. - Pt beingfollowed by onc [facility], appreciate recs. Dr. Sandra Patel is her primary oncologist . Oncology team communicating with Dr. Patel. - Coordinating with onc and ortho regarding plan for timing of cycle 3 of chemotherapy, whi ch will need to be delayed to allow for healing after infection. # Pancytopenia # Aezke-um-sgcrxgx anemia Likely hypoproliferationin setting of recentsystemic chemotherapy and acute inflammatio n. Will continue to monitor and transfuse as needed, goal >7. - Hg 6.8 this morning --> pRBC x1 today - She has received a total of 5 units of pRBCs at [facility] and 1 unit previously at OSH. [...] Full Dispo: Continue inpatient care Dawit Amaya, 4 [facility] Pager [phone] signed by Greg Del Rosario MD at [...] with our plans. Greg Del Rosario MD Physician Compensation Analyst Division of Hospital Medicine Teaching Attending I [...] Orthopaedic Attending: Tati Cage 1985 32 y.o. [id number] [id number] 03/29/2018 03/23/2018 6 Macie Torre MD Diagnosis(es): [...] to make a follow up appointment in [facility] 2 weeks with ORTHO ONCOLOGY, Odalys Tobin - (Sb and Jorge L) Adam Jean MD Pager: [phone] irishDawit riley Sho - 1:33 PM PDT [...] and feels well. She has no current marocs n, ranking it 0/10. No pain in [...] in 4/5. Pathology Report from 03/24/18 left cfhlt-xfl-ikpo amputation site debridement: "A. Soft tissue, left [...] on 03/17/18. - Pt beingfollowed by onc [facility], appreciate recs. Dr. Sandra Patel is her primary oncologist . Oncology team will communicate with Dr. Patel. - Coordinating with onc and ortho regarding plan for timing of cycle 3 of chemotherapy, whi ch will need to be delayed to allow for healing after infection. # Pancytopenia # Ccdmg-ut-ovrcrmk anemia Likely hypoproliferationin setting of recentsystemic chemotherapy and acute inflammatio n. Will continue to monitor and transfuse as needed, goal >7. - Hg 9.2 this morning. - She has received at total of 4 units of pRBCs at [facility] and 1 unit previously at OSH. [...] Continue inpatient care Dawit Jose Luis, MS4 [facility] Pager [phone] signed by Greg Del Rosario MD at [...] with our plans. Greg Del Rosario MD Physician Compensation Analyst Division of Hospital Medicine Teaching Attending I [...] Orthopaedic Attending: Tati Cage 1985 32 y.o. [id number] 03/28/2018 03/23/2018 5 Macie Torre MD Diagnosis(es): [...] to make a follow up appointment in [facility] 2 weeks with ORTHO ONCOLOGY, [...] edge. 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 No kids. Lives with her mother Kika. [...] by primary care team. Madiha Rebollar DNP, MANAGER PRODUCT DESIGN-C [facility] [address] [place] [address] Lynda Ravi MD - 03/28/2018 8:06 AM [...] Ricardo Morales MD/PhD Anesthesiology CA-2 APS pager [phone] signed by Arnold Street MD at 03/28/2018 [...] neutropenia after c hemotherapy. # Pancytopenia # Axcum-qc-ykjajqp anemia Likely hypoproliferation in setting of recentsystemic chemotherapy and acute inflammation . Will continue to monitor and transfuse as needed, goal >7. - Hg 8.0 this morning prior to procedure today, 7.4 after. EBL of 200 mL during procedure. - She has received at total of 4 units of pRBCs at [facility] and 1 unit previously at OSH. [...] on 03/17/18. - Pt beingfollowed by onc [facility], appreciate recs. Dr. Sandra Patel is [...] Dispo: Continue inpatient care Dawit Amaya, MS4 [facility] Pager [phone] signed by Greg Del Rosario MD at [...] with our plans. Greg Del Rosario MD Physician Compensation Analyst Division of Hospital Medicine Teaching Attending I [...] units of pRBCs have been given at [facility], with 1 unit given at OSH. [...] returning to the OR. # Pancytopenia # Ykfhu-vs-ynzvlpm anemia Likely hypoproliferation in setting of recentsystemic chemotherapy and acute inflammation . No evidence of acute blood loss or hemolysis. Drainage from wound vac has been minimal. Wi ll continue to monitor and transfuse as needed, goal >7. - Hg improved to 9.2 today after an additional unit of pRBCs this morning. She has received at total of 4 units of pRBCs at [facility] and 1 unit previously at OSH. [...] 03/17/18. - Pt being followed by onc [facility], appreciate recs. Dr. Sandra Patel is [...] Dispo: Continue inpatient care Dawit Amaya, MS4 [facility] Pager [phone] signed by Greg Del Rosario MD at [...] with our plans. Greg Del Rosario MD Physician Compensation Analyst Division of Hospital Medicine Teaching Attending I [...] Orthopaedic Attending: Tati Cage 1985 32 y.o. [id number] 03/26/2018 03/23/2018 3 Macie Torre MD Diagnosis(es): [...] to make a follow up appointment in [facility] 2 weeks with ORTHO ONCOLOGY, [...] edge. Junaid Burrell MD Orthopaedic Surgery, R3 [id number] 03/26/2018 Greg Dean MD - 03/25/2018 9:59 [...] with our plans. Greg Del Rosario MD Physician Compensation Analyst Division of Hospital Medicine Teaching Attending I [...] Orthopaedic Attending: Tati Cage 1985 32 y.o. [id number] 03/25/2018 03/23/2018 2 Macie Torre MD Diagnosis(es): [...] to make a follow up appointment in [facility] 2 weeks with ORTHO ONCOLOGY, [...] knee. Reflexes: not performed Sorin Aguirre MD [facility] Department of Orthopaedics & Rehabilitation [address] [place] [address] Mail Code: [address]31 [facility] [id number] Dawit Gilliam - 03/03 7:30 AM PDT [...] 03/17/18. - Pt being followed by onc [facility], appreciate recs. Dr. Sandra Patel is [...] Dispo: Continue inpatient care Dawit Amaya, MS4 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 Yves "Oc" MD Clemente [...] Events: - Irrigation and debridement of left lysbe-xcf-ttxw amputation stump followed by wound vac placement, [...] on 03/17/18. - Pt followed by onc NEELAINE, who is seeing patient today - Per [...] Dispo: Continue inpatient care Dawit Amaya, MS4 [facility] Pager [phone] signed by Greg Del Rosario MD at [...] TSERING DUMONT MD,MPH PGY-5 Orthopaedic Surgery Pager: [phone] Deann Andrew MD - 03/24/2018 2:00 AM [...] Federico Simpson MD Orthopedic Surgery, R2 Pager [phone] documented in this encounter Plan of Treatment +--------+ + + + + | Date | Type | Specialty | Care Team | Description | +--------+ + + + + | 03/25/ | Appointment | Radiology | Sandra Patel MD | | | 2018 | | | [address] | | | | | | [facility] [place], [place] | | | | | | [address] | | | | | | [phone] | | | | | | | | +--------+ + + + + | 03/25/ | Office | Orthopedics | Lynda Basurto, | | | 2018 | Visit | | [address] | | | | | | [address] | | | | | | [place], [place] | | | | | | [address] | | | | | | [phone] | | | | | | | | +--------+ + + + + | 03/25/ | Office | Hematology & | Sandra Patel MD | | | 2018 | Visit | Oncology | [address] | | | | | | [place], [place] | | | | | | [address] | | | | | | [phone] | | | | | | | [...] | | | LABORATORY | | | INDONESIAN | | | SERVICES, | | | [...] | + + + + + | Actual Experience | [address] [facility] | [place] [address] | | | AN[address] ANGUIAN[address] | ARMANDO [...] | + + + + + | [facility] | [address] | [place] [address] | | | SERVICES, CORE | PARK [...] (H) | 50.0 - 70.0 % | [facility] | | | % | | | [...] [facility] | [address] | [place] [address] | | | SERVICES, CORE | PARK [...] | + + + + + | [facility] | [address] | [place] [address] | | | ANTONI ANGUIANO | ARMANDO [...] | + + + + + | [facility] | [address] [facility] | [place] [address] | | | SERVICES, CORE | ARMANDO [...] administered. FINDINGS: The patient has a left vkutp-kdg-ijvt | | | amputation. A surgical drain [...] administered. FINDINGS: The patient has a left zprdr-lnh-eldj amputation. A surgical | | drain is [...] LABORATORY | [address] | [place] [address] | | | SERVICES, CORE | PARK [...] | + + + + + | [facility] | [address] [facility] | [place] [address] | | | SERVICES, | [address] [...] | | | LABORATORY | | | INDONESIAN | | | SERVICES, | | | [...] | + + + + + | [facility] | [address] [facility] | [place] [address] | | | SERVICES, CORE | ARMANDO [...] [facility] | [address] | [place] [address] | | | SERVICES, CORE | PARK [...] | + + + + + | [facility] | [address] [facility] | [place] [address] | | | SERVICES, | [address] [...] [facility] | [address] | [place] [address] | | | SERVICES, CORE | PARK [...] LABORATORY | [address] | [place] [address] | | | SERVICES, CORE | PARK [...] + + + + | PRODUCT | [id number] | | [facility] | | | UNIT [...] + + + + | EXPIRATION | [id number] | | [facility] | | | DATE [...] + + + + | BLOOD | [id number] | | [facility] | | | PRODUCT [...] LABORATORY | [address] | [place] [address] | | | SERVICES, | [address] [...] + + + + | PRODUCT | [id number] | | [facility] | | | UNIT [...] + + + + | EXPIRATION | [id number] | | [facility] | | | DATE [...] + + + + | BLOOD | [id number] | | [facility] | | | PRODUCT [...] | + + + + + | [facility] | [address] | [place] [address] | | | SERVICES, | [address] [...] + + + + | PRODUCT | [id number] | | [facility] | | | UNIT [...] + + + + | EXPIRATION | [id number] | | [facility] | | | DATE [...] + + + + | BLOOD | [id number] | | [facility] | | | PRODUCT [...] | + + + + + | Actual Experience | [address] | [place] [address] | | | SERVICES, | [address] [...] | + + + + + | [facility] | [address] | [place] [address] | | | SERVICES, CORE | ARMAND[address] [...] | + + + + + | [facility] | [address] | [place] [address] | | | SERVICES, CORE | PARK [...] [facility] | [address] | [place] [address] | | | ANTONI ANGUIANO | ARMAND[address] [...] | | | LABORATORY | | | INDONESIAN | | | SERVICES, | | | [...] | + + + + + | [facility] | [address] | [place] [address] | | | SERVICES, CORE | ARMANDO [...] | + + + + + | [facility] | [address] | [place] [address] | | | SERVICES, CORE | ARMANDO [...] (H) | 70 - 99 mg/dL | [facility] - | | | GLUCOSE, | | [...] [facility] | [address] | [place], [place] | | | MINNIE OSORIO OF [place] | [facility] | [address] | | | TESTS | | | [...] [facility] | [address] | [place] [address] | | | SERVICES, CORE | PARK [...] | | | LABORATORY | | | INDONESIAN | | | SERVICES, | | | [...] | + + + + + | Actual Experience | [address] [facility] | [place] [address] | | | ANTONI ANGUIANO | ARMAND[address] [...] | + + + + + | Actual Experience | [address] | [place] [address] | | | SERVICES, CORE | PARK [...] [facility] | [address] | [place] [address] | | | SERVICES, | [address] [...] LABORATORY | [address] | [place] [address] | | | SERVICES, | [address] [...] + + + + | PRODUCT | [id number] | | [facility] | | | UNIT [...] + + + + | EXPIRATION | [id number] | | [facility] | | | DATE [...] + + + + | BLOOD | [id number] | | [facility] | | | PRODUCT [...] | + + + + + | [facility] | [address] | [place] [address] | | | SERVICES, | [address] [...] + + + | [facility] | [address] | [place], [place] | | | [facility] POINT OF CARE | [address] | [address] | | | TESTS | | | [...] [facility] | [address] | [place] [address] | | | ANTONI ANGUIANO | ARMAND[address] [...] | | | LABORATORY | | | INDONESIAN | | | SERVICES, | | | [...] | + + + + + | [facility] | [address] [facility] | [place] [address] | | | ANTONI ANGUIANO | ARMANDO [...] | + + + + + | [facility] | [address] | [place] [address] | | | SERVICES, CORE | PARK [...] | + + + + + | [facility] | [address] | [place] [address] | | | SERVICES, CORE | PARK [...] | + + + + + | [facility] | [address] [facility] | [place] [address] | | | SERVICES, [facility] | [address] | | | + [...] | | | LABORATORY | | | INDONESIAN | | | SERVICES, | | | [...] | + + + + + | [facility] | [address] [facility] | [place] [address] | | | ANTONI ANGUIANO | ARMAND[address] [...] | + + + + + | [facility] | [address] [facility] | [place] [address] | | | SERVICES, [facility] | [address] | | | + + + + + OPERATION RECORD (03/27/2018 12:10 PM PDT) + + | Procedure Note | + + | Lynda Basurto MD - 03/27/2018 12:10 PM PDT Date of Service: 03/27/2018 | | Attending Surgeon: Lynda Basurto MD Diesel Scoop Operator(s): Odalys | | R Elvin Tobin PA-C. Please note no other qualified clinical assistant was available. | | Preoperative Diagnosis: [...] closure of the fascia. This was a 10[place] | | channel drain. Please note, the [...] 03/27/2018 | | 11:18:37DT: 03/27/2018 12:10:06Job #: [id number] | + + CAPILLARY BLOOD GLUCOSE (NO [...] [facility] | [address] | [place], [place] | | | [place], POINT OF CARE | [address] | [address] | | | TESTS | | | | + + + + + PROCEDURE NOTE (03/27/2018 11:37 AM PDT) + + + | Narrative | Performed At | + + + | Odlays Tobin PA-C 03/27/2018 11:39 AM INPATIENT | [...] - [facility] | [address] | [place], [place] | | | [facility] | [address] | [address] | | | TESTS | | | [...] Gram Stain: No squamous epithelial cells | [place] | | Rare polymorphonuclear cells No organisms seen | | + + + + + + + + | Performing | Address | City/State/Zipcode | Phone Number | | Organization | | | | + + + + + | [facility] | [address] | [place] [address] | | | [facility] | | | | + + + [...] | | cells No organisms seen | [place] | + + + + + + + + | Performing | Address | City/State/Zipcode | Phone Number | | Organization | | | | + + + + + | [facility] - | [address] | [place] [address] | | | [place] | | | [...] + | [facility] - | [address] | [place] [address] | | | [place] | | | [...] + | [facility] - | [address] | [place] [address] | | | [place] | | | | + + + [...] Gram Stain: No squamous epithelial cells | [place] | | Rare polymorphonuclear cells No organisms seen | | + + + + + + + + | Performing | Address | City/State/Zipcode | Phone Number | | Organization | | | | + + + + + | [facility] | [address] | [place] [address] | | | [facility] | | | | + + + [...] [facility] | [address] | [place], [place] | | | [facility] [facility] [place] | [address] | [address] | | | TESTS | | | [...] [facility] | [address] | [place] [address] | | | SERVICES, CORE | PARK [...] | + + + + + | [facility] | [address] [facility] | [place] [address] | | | SERVICES, CORE | ARMANDO [...] | [facility] | [address] [facility] | [place] [address] | | | SERVICES, CORE | PARK [...] | | | LABORATORY | | | INDONESIAN | | | SERVICES, | | | [...] | [facility] | [address] [facility] | [place] [address] | | | SERVICES, CORE | PARK [...] | + + + + + | [facility] | [address] | [place] [address] | | | ANTONI ANGUIANO | ARMANDO [...] [facility] | [address] | [place] [address] | | | SERVICES, CORE | PARK [...] | | | LABORATORY | | | INDONESIAN | | | SERVICES, | | | [...] [facility] | [address] | [place] [address] | | | SERVICES, CORE | PARK [...] + + + + | PRODUCT | [id number] | | [facility] | | | UNIT [...] + + + + | EXPIRATION | [id number] | | [facility] | | | DATE [...] + + + + | BLOOD | [id number] | | [facility] | | | PRODUCT [...] LABORATORY | [address] | [place] [address] | | | SERVICES, | [address] [...] | + + + + + | [facility] | [address] | [place] [address] | | | SERVICES, CORE | ARMANDO [...] [facility] | [address] | [place] [address] | | | ANTONI ANGUIANO | [address] [...] + + + + | PRODUCT | [id number] | | [facility] | | | UNIT [...] + + + + | EXPIRATION | [id number] | | [facility] | | | DATE [...] + + + + | BLOOD | [id number] | | [facility] | | | PRODUCT [...] [facility] | [address] | [place] [address] | | | SERVICES, | [address] [...] | + + + + + | [facility] | [address] | [place] [address] | | | SERVICES, CORE | ARMANDO [...] | [facility] | [address] [facility] | [place] [address] | | | SERVICES, CORE | PARK [...] | + + + + + | [facility] | [address] | [place] [address] | | | SILVIO, ANTONI | ARMANDO [...] [facility] | [address] | [place] [address] | | | SERVICES, CORE | PARK [...] [facility] | [address] | [place] [address] | | | SERVICES, CORE | ARMANDO [...] [facility] | [address] | [place] [address] | | | SERVICES, CORE | ARMANDO [...] | | | LABORATORY | | | INDONESIAN | | | SERVICES, | | | [...] [facility] | [address] | [place] [address] | | | SERVICES, CORE | PARK [...] + + + + | PRODUCT | [id number] | | [facility] | | | UNIT [...] + + + + | EXPIRATION | [id number] | | [facility] | | | DATE [...] + + + + | BLOOD | [id number] | | [facility] | | | PRODUCT [...] [facility] | [address] | [place] [address] | | | SERVICES, | [address] [...] | + + + + + | Actual Experience | [address] | [place] [address] | | | SERVICES, CORE | ARMANDO [...] | + + + + + | [facility] | [address] | [place] [address] | | | SERVICES, CORE | ARMANDO [...] | + + + + + | [facility] | [address] | [place] [address] | | | SERVICES, CORE | PARK [...] | + + + + + | [facility] | [address] [facility] | [place] [address] | | | ANTONI ANGUIANO | [address] | | | + + + + + DEBRIDEMENT OF BELOW KNEE AMPUTATION STUMP (03/24/2018 1:31 PM PDT) + + + | Narrative | Performed At | + + + | Macie Torre MD 03/24/2018 1:49 PM [facility] | | | [facility] | | | OPERATIVE REPORT | | | Patient | | | Name: Tati Cage Date of : 1985 Medical Record | | | Number: [id number] Contract Serial Number:: [id number] Report | | | Author: MACIE TORRE MD Procedure Date: 03/24/2018 | | | Attending Physician: 1. MACIE TORRE MD Diesel Scoop Operator(s): | | | 1. Tserign Dumont MD Preoperative Diagnosis(es): 1. Left | [...] and | | | fascia. Wound size [id number] after tacking back fascia | | | [...] in the remaining wound | | | [id number]. Excellent seal was attained. The patient was [...] [facility] | [address] | [place], [place] | | | [facility] [facility] | [address] | [address] | | | TESTS | | | [...] | | | | | | number [id number]. Leg, | | | | | | [...] [facility] | [address] | [place] [address] | | | PATHOLOGY | [address] [...] | | | RESULT | | | [facility] - | | | | | | [place] | | + + + + + + + + | Specimen | + + | Tissue | + + + + + | Narrative | Performed At | + + + | Culture Report: 1+ Escherichia coli Refer to culture collected | [facility] - | | 03/24/18 at 11:56 AM for susceptibilities 1+ Prevotella bivia | [facility] - | | Gram Stain: No squamous epithelial cells Rare polymorphonuclear | [place] | | cells No organisms seen | | + + + + + + + + | Performing | Address | City/State/Zipcode | Phone Number | | Organization | | | | + + + + + | [facility] | [address] | [place] [address] | | | [place] | | | | + + + [...] negative Staphylococcus species Please contact the | [place] | | microbiology laboratory if further work up of this culture is needed. | | | Gram Stain: No squamous epithelial cells No polymorphonuclear | | | cells No organisms seen | | + + + + + + + + | Performing | Address | City/State/Zipcode | Phone Number | | Organization | | | | + + + + + | [facility] | [address] | [place] [address] | | | [place] | | | | + + + [...] + | [facility] | [address] | [place] [address] | | | [place] | | | [...] Gram Stain: No squamous epithelial cells | [place] | | Rare polymorphonuclear cells No organisms seen | | + + + + + + + + | Performing | Address | City/State/Zipcode | Phone Number | | Organization | | | | + + + + + | [facility] | [address] | [place] [address] | | | [place] | | | [...] | + + + + + | [facility] | [address] | [place] [address] | | | [place] | | | | + + + [...] + + + + | PRODUCT | [id number] | | [facility] | | | UNIT [...] + + + + | EXPIRATION | [id number] | | [facility] | | | DATE [...] + + + + | BLOOD | [id number] | | [facility] | | | PRODUCT [...] [facility] | [address] | [place] [address] | | | SERVICES, | [address] [...] + + + + | PRODUCT | [id number] | | [facility] | | | UNIT [...] + + + + | EXPIRATION | [id number] | | [facility] | | | DATE [...] + + + + | BLOOD | [id number] | | [facility] | | | PRODUCT [...] [facility] | [address] | [place] [address] | | | SERVICES, | [address] [...] + + + + | PRODUCT | [id number] | | [facility] | | | UNIT [...] + + + + | EXPIRATION | [id number] | | [facility] | | | DATE [...] + + + + | BLOOD | [id number] | | [facility] | | | PRODUCT [...] | + + + + + | [facility] | [address] | [place] [address] | | | SERVICES, | [address] [...] [facility] | [address] | [place] [address] | | | SERVICES, CORE | PARK [...] [facility] | [address] | [place] [address] | | | SERVICES, CORE | PARK [...] [facility] | [address] | [place] [address] | | | ANTONI ANGUIANO | [address] [...] | | | LABORATORY | | | INDONESIAN | | | SERVICES, | | | [...] | + + + + + | [facility] | [address] [facility] | [place] [address] | | | ANTONI ANGUIANO | ARMAND[address] [...] | + + + + + | [facility] | [address] [facility] | [place] [address] | | | SERVICES, CORE | P[address] [...] + + + + | PRODUCT | [id number] | | [facility] | | | UNIT [...] + + + + | EXPIRATION | [id number] | | [facility] | | | DATE [...] + + + + | BLOOD | [id number] | | [facility] | | | PRODUCT [...] [facility] | [address] | [place] [address] | | | SERVICES, | [address] [...] | + + + + + | [facility] | [address] [facility] | [place] [address] | | | SERVICES, ANTONI | PARK [...] [facility] | [address] | [place] [address] | | | SERVICES, CORE | PARK [...] [facility] | [address] | [place] [address] | | | SERVICES, CORE | PARK [...] | + + + + + | [facility] | [address] [facility] | [place] [address] | | | SERVICES, CORE | ARMANDO [...] [facility] | [address] | [place] [address] | | | SERVICES, CORE | PARK [...] | | | LABORATORY | | | INDONESIAN | | | SERVICES, | | | [...] [facility] | [address] | [place] [address] | | | SERVICES, CORE | PARK [...] [facility] | [address] | [place] [address] | | | SERVICES, CORE | PARK [...] [facility] | [address] | [place] [address] | | | ANTONI ANGUIANO | ARMANDO [...] LABORATORY | [address] | [place] [address] | | | SERVICES, | [address] [...] | + + + + + | [facility] | [address] | [place] [address] | | | SERVICES, CORE | PARK [...] [facility] | [address] | [place] [address] | | | SERVICES, | [address] [...] | [facility] | [address] [facility] | [place] [address] | | | ANTONI ANGUIANO | [address] | | | + + + + + CULTURE, BLOOD BACTI & YEAST [facility] (03/23/2018 4:40 PM PDT) + + [...] [facility] | [address] | [place] [address] | | | SERVICES, CORE | PARK [...] [facility] | [address] | [place] [address] | | | SERVICES, CORE | [address] [...] | + +---+ | | | | [id number] | | | (SPECIAL MOUTHWASH) suspension | [...]
--- OUTSIDE RECORDS SUMMARY | ~2019-01-30 | XMS | Encounter Summary ---
Demographics + + + | Address | [address] | | | [place] [address] | + + + | Home Phone [...] Providers + +------+ + | Care Inspector Balance Bridge Name | Role | Phone | + [...] | | [facility] | [place], [place] | | | | | [address] | [address] | | | | | Mailcode: Center | [phone] | | | | | for Health and | | | | | | Healing, [address] | | | | | | [place], [place] | | | | | | [address] | | | | | | [phone] | | | +--------+ + + + [...] | | | 2019 | | | [address] | | | | | | [place], [place] | | | | | | [address] | | | | | | [phone] | | | | | | | | +--------+ + + + + | 03/25/ | Office | Orthopedics | Rosy BasurtoAlexander, | | | 2018 | Visit | | [address] | | | | | | [address] | | | | | | [place], [place] | | | | | | [address] | | | | | | [phone] | | | | | | | | +--------+ + + + + | 03/25/ | Office | Hematology & | Sandra Patel MD | | | 2018 | Visit | Oncology | [address] | | | | | | [place], [place] | | | | | | [address] | | | | | | [phone] | | | | | | | | +--------+ + + + + documented as of this encounter Visit Diagnoses + + | Diagnosis | + + | 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
--- OUTSIDE RECORDS SUMMARY | ~2019-01-30 | XMS | Encounter Summary ---
Demographics + + + | Address | [address] | | | [place] [address] | + + + | Home Phone [...] Team Providers + +------+ + | Care Wire Steward Name | Role | Phone | + [...] | | for [facility] | [place], [place] | | | | | [address] | [address] | | | | | Mailcode: Center | [phone] | | | | | for Health and | | | | | | Healing, [address] | | | | | | [place], [place] | | | | | | [address] | | | | | | [phone] | | | +--------+ + + + [...] [address] | | | | | | [place], [place] | | | | | | [address] | | | | | | [phone] | | | | | | | | +--------+ + + + + | 03/25/ | Office | Orthopedics | Lynda Basurto, | | | 2018 | Visit | | [address] | | | | | | [address] | | | | | | [place], [place] | | | | | | [address] | | | | | | [phone] | | | | | | | | +--------+ + + + + | 03/25/ | Office | Hematology & | Sandra Patel MD | | | 2018 | Visit | Oncology | [address] | | | | | | [place], [place] | | | | | | [address] | | | | | | [phone] | | | | | | | | +--------+ + + + + documented as of this encounter Visit Diagnoses + + | Diagnosis | + + | Neutropenic fever (HCC) - Primary Neutropenia, unspecified | + + documented in this encounter"
--- OUTSIDE RECORDS SUMMARY | ~2019-01-30 | XMS | Encounter Summary ---
Demographics + + + | Address | [address] | | | [place] [address] | + + + | Home Phone [...] Team Providers + +------+ + | Care Laborer Cutting Tool Name | Role | Phone | + [...] | | 2018 | | [facility] [place] | [address] | | | | | for Health [facility] Healing | [place], [place] | | | | | [address] | [address] | | | | | Mailcode: [place] | [phone] | | | | | for Health and | | | | | | Healing, [address] | | | | | | [place], [place] | | | | | | [address] | | | | | | [phone] | | | +--------+ + + + [...] 03/25/ | Appointment | Radiology | Sandra Patle MD | | | 2018 | | | [address] | | | | | | [place], [place] | | | | | | [address] | | | | | | [phone] | | | | | | | | +--------+ + + + + | 03/25/ | Office | Orthopedics | SbLynda, | | | 2018 | Visit | | [address] | | | | | | [address] | | | | | | [facility] [place] | | | | | | [address] | | | | | | [phone] | | | | | | | | +--------+ + + + + | 03/25/ | Office | Hematology & | Sandra Patel MD | | | 2018 | Visit | Oncology | [address] | | | | | | [place], [place] | | | | | | [address] | | | | | | [phone] | | | | | | | | +--------+ + + + + documented as of this encounter Visit Diagnoses Not on filedocumented in this encounter"
--- OUTSIDE RECORDS SUMMARY | ~2019-01-30 | XMS | Encounter Summary ---
Demographics + + + | Address | [address] | | | [place] [address] | + + + | Home Phone [...] Team Providers + +------+ + | Care Air Lift Operator Name | Role | Phone | [...] | [facility] [address] | [address] [facility] | | | | | [place] Mailcode: CH12A | [address] | | | | | [facility] | [place], [place] | | | | | and [facility] | [address] | | | | | Floor [place], [place] | [phone] | | | | | [address] | | | | | | [phone] | | | +--------+ + + + [...] | | | | | | [place], [place] | | | | | | [address] | | | | | | [phone] | | | | | | | | +--------+ + + + + | 03/25/ | Office | Orthopedics | Rosy BasurtoAlexander, | | | 2018 | Visit | | [address] | | | | | | [address] | | | | | | [place], [place] | | | | | | [address] | | | | | | [phone] | | | | | | | | +--------+ + + + + | 03/25/ | Office | Hematology & | Sandra Patel MD | | | 2018 | Visit | Oncology | [address] | | | | | | [place], [place] | | | | | | [address] | | | | | | [phone] | | | | | | | | +--------+ + + + + documented as of this encounter Visit Diagnoses Not on filedocumented in this encounter"
--- OUTSIDE RECORDS SUMMARY | ~2019-01-30 | XMS | Encounter Summary ---
Demographics + + + | Address | [address] | | | [place] [address] | + + + | Home Phone [...] Team Providers + +------+ + | Care Communications Professional Name | Role | Phone | + [...] | RN [address] | ([facility] deaccessed) | | | | Floor [address] | [facility] | | | | | [facility] | [place], [place] | | | | | Mailcode: L457 | [address] | | | | | Physicians Katie | [phone] | | | | | [place], [place] | | | | | | [address] | | | | | | [phone] | | | +--------+ + + + [...] | | | 2018 | | | [address] | | | | | | [place], [place] | | | | | | [address] | | | | | | [phone] | | | | | | | | +--------+ + + + + | 03/25/ | Office | Orthopedics | Lynda Basurto, | | | 2018 | Visit | | [address] | | | | | | [address] | | | | | | [facility] [place] | | | | | | [address] | | | | | | [phone] | | | | | | | | +--------+ + + + + | 03/25/ | Office | Hematology & | Sandra Patel MD | | | 2018 | Visit | Oncology | [address] | | | | | | [place], [place] | | | | | | [address] | | | | | | [phone] | | | | | | | | +--------+ + + + + documented as of this encounter Visit Diagnoses Not on filedocumented in this encounter"
--- OUTSIDE RECORDS SUMMARY | ~2019-01-30 | XMS | Encounter Summary ---
Demographics + + + | Address | [address] | | | [place] [address] | + + + | Home Phone [...] Team Providers + +------+ + | Care Labor Expediter Name | Role | Phone | + [...] Other (incision | | 2017 | | [facility] [address] | [address] | issue) | | | | [place] Mailcode: CH12A | [address] | | | | | [facility] | [place], [place] | | | | | and [facility] | [address] | | | | | Floor [place], [place] | [phone] | | | | | [address] | | | | | | [phone] | | | +--------+ + + + [...] 03/25/ | Appointment | Radiology | Sandra Paetl MD | | | 2018 | | | [address] | | | | | | [place], [place] | | | | | | [address] | | | | | | [phone] | | | | | | | | +--------+ + + + + | 03/25/ | Office | Orthopedics | Lynda Basurto, | | | 2019 | Visit | | MD [address] | | | | | | [address] | | | | | | [facility] [place] | | | | | | [address] | | | | | | [phone] | | | | | | | | +--------+ + + + + | 03/25/ | Office | Hematology & | Sandra Patel MD | | | 2019 | Visit | Oncology | [address] | | | | | | [place] | | | | | | [address] | | | | | | [phone] | | | | | | | | +--------+ + + + + documented as of this encounter Visit Diagnoses Not on filedocumented in this encounter"
--- OUTSIDE RECORDS SUMMARY | ~2019-01-30 | XMS | Encounter Summary ---
Demographics + + + | Address | [address] | | | [place] [address] | + + + | Home Phone [...] Team Providers + +------+ + | Care Light Rail Operator Name | Role | Phone | [...] [address] | | | | | Road [place], [place] | [address] | | | | | [address] | [place], [place] | | | | | [phone] | [address] | | | | | | [phone] | | | | | | | [...] | 03/25/ | Appointment | Radiology | Snadra Patel MD | | | 2018 | | | [address] | | | | | | [place], [place] | | | | | | [address] | | | | | | [phone] | | | | | | | | +--------+ + + + + | 03/25/ | Office | Orthopedics | Lynda Basurto, | | | 2018 | Visit | | [address] | | | | | | [address] | | | | | | [place], [place] | | | | | | [address] | | | | | | [phone] | | | | | | | | +--------+ + + + + | 03/25/ | Office | Hematology & | Sandra Patel MD | | | 2018 | Visit | Oncology | [address] | | | | | | [place], [place] | | | | | | [address] | | | | | | [phone] | | | | | | | [...] + + + | [facility] | [address] [facility] [address] | [place] [address] | | | DIAGNOSTIC | [address] | | | | LABORATORIES | | | | + + + + + documented in this encounter Visit Diagnoses + + | Diagnosis | + + | Localized swelling, mass and lump, left lower limb | + + documented in this encounter"
--- OUTSIDE RECORDS SUMMARY | ~2019-01-30 | XMS | Encounter Summary ---
Demographics + + + | Address | [address] | | | [place] [address] | + + + | Home Phone [...] Team Providers + +------+ + | Care Cabin Service Agent Name | Role | Phone | [...] | Malignant | Lynda, | MD [address] | | | | | neoplasm of | [address] | | | | | soft tissue | [address] | [place], [place] | | | | | of left | [address] | [address] | | | | | lower | [place], [place] | Phone: | | | | | extremity | [address] | [phone] | | | | | ([facility]) | Phone: | Fax: | | | | | Procedures | [phone] | [phone] | | | | | CONSULT TO | Fax: | | | | | | HEMATOLOGY / | [phone] | | | | | | ONCOLOGY [...] | | [address] | [place] [place] [address] | | | | | Mailcode: [place] | | | | | | for Health and | | | | | | Healing, [address] | | | | | | [place], [place] | | | | | | [address] | | | | | | [phone] | | | +--------+ + + + [...] | | | 2018 | | | [address] | | | | | | [place], [place] | | | | | | [address] | | | | | | [phone] | | | | | | | | +--------+ + + + + | 03/25/ | Office | Orthopedics | Lynda Basurto, | | | 2018 | Visit | | [address] | | | | | | [address] | | | | | | [place], [place] | | | | | | [address] | | | | | | [phone] | | | | | | | | +--------+ + + + + | 03/25/ | Office | Hematology & | Sandra Patel MD | | | 2019 | Visit | Oncology | [address] | | | | | | [place], [place] | | | | | | [address] | | | | | | [phone] | | | | | | | [...] | [facility] | [address] [facility] | [place] [address] | | | OF CARE TESTS | [...] 1.1 (H) | 0.1 - 0.9 | [facility], | | | | | 10*3/uL | POINT OF | | | | | | CARE TESTS | | + + + + + + | EOS #, POC | 0.0 | 0.0 - 0.5 | [facility], | | | | | 10*3/uL | POINT OF | | | | | | CARE TESTS | | + + + + + + | BASO #, POC | 0.1 | 0.0 - 0.1 | [facility], | | | | | 10*3/uL | [...] + + + + | [facility] | [address] [facility] | [place] [address] | | | OF CARE TESTS | [...] [facility] | [address] | [place] [address] | | | SERVICES, CORE | PARK [...] [facility] | [address] | [place] [address] | | | SERVICES, CORE | [address] [...] | [facility] | [address] | [place] [address] | | | SERVICES, CORE | [address] | | | + + + + + documented in this encounter Visit Diagnoses + + | Diagnosis | + + | 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
--- OUTSIDE RECORDS SUMMARY | ~2019-01-30 | XMS | Encounter Summary ---
Demographics + + + | Address | [address] | | | [place] [address] | + + + | Home Phone [...] Team Providers + +------+ + | Care Content Management Specialist Name | Role | Phone | + +------+ + | Santo Gooden MD | PCP | | + +------+ + Encounter Details +--------+ + + + + | Date | Type | Department | Care Team | Description | +--------+ + + + + | 04/09/ | Pharmacy | [facility] | | | | 2018 | Visit | [facility] | | | | | | [address] | | | | | | [place], [place] | | | | | | [address] | | | | | | [phone] | | | +--------+ + + + [...] [address] | | | | | | [place], [place] | | | | | | [address] | | | | | | [phone] | | | | | | | | +--------+ + + + + | 03/25/ | Office | Orthopedics | Lynda Basurto, | | | 2018 | Visit | | [address] | | | | | | [address] | | | | | | [place], [place] | | | | | | [address] | | | | | | [phone] | | | | | | | | +--------+ + + + + | 03/25/ | Office | Hematology & | Sandra Patel MD | | | 2018 | Visit | Oncology | [address] | | | | | | [place] | | | | | | [address] | | | | | | [phone] | | | | | | | | +--------+ + + + + documented as of this encounter Visit Diagnoses Not on filedocumented in this encounter"
--- OUTSIDE RECORDS SUMMARY | ~2019-01-30 | XMS | Encounter Summary ---
Demographics + + + | Address | [address] | | | [place] [address] | + + + | Home Phone [...] Team Providers + +------+ + | Care Ginner Name | Role | Phone | + [...] Hematology/Medical | Sandra Patel MD | RE: [facility] | | 2018 | Encounter | [facility] [place] | [address] | | | | | for Health & Healing | [place], [place] | | | | | [address] | [address] | | | | | Mailcode: [place] | [phone] | | | | | [facility] | | | | | | and [place], | | | | | | Floor [facility] [place] | | | | | | [address] | | | | | | [phone] | | | +--------+ + + + [...] | | | 2018 | | | [address] | | | | | | [place], [place] | | | | | | [address] | | | | | | [phone] | | | | | | | | +--------+ + + + + | 03/25/ | Office | Orthopedics | Lynda Basurto, | | | 2018 | Visit | | [address] | | | | | | [address] | | | | | | [place], [place] | | | | | | [address] | | | | | | [phone] | | | | | | | | +--------+ + + + + | 03/25/ | Office | Hematology & | Sandra Patel MD | | | 2018 | Visit | Oncology | [address] | | | | | | [place], [place] | | | | | | [address] | | | | | | [phone] | | | | | | | [...] LUIS PENALOZA | [address] | [place] [address] | | | SERVICES, CORE | [address] | | | + + + + + documented in this encounter Visit Diagnoses + + | Diagnosis | + + | History of chemotherapy - Primary Personal history of antineoplastic chemotherapy | + + documented in this encounter"
--- OUTSIDE RECORDS SUMMARY | ~2019-01-30 | XMS | Encounter Summary ---
Demographics + + + | Address | [address] | | | [place] [address] | + + + | Home Phone [...] Providers + +------+ + | Care Glass Tube Bender Name | Role | Phone | + [...] | | 2018 | | [facility] at [place] | [address] | | | | | for Health & Healing | [place], [place] | | | | | [address] | [address] | | | | | Mailcode: [place] | [phone] | | | | | for Health and | | | | | | [facility] 2 | | | | | | [place], [place] | | | | | | [address] | | | | | | [phone] | | | +--------+ + + + [...] Scott | | | | | | [place], [place] | | | | | | [address] | | | | | | [phone] | | | | | | | | +--------+ + + + + | 03/25/ | Office | Orthopedics | Rosy BasurtoMacarioLori, | | | 2018 | Visit | | [address] | | | | | | [address] | | | | | | [facility] [place] | | | | | | [address] | | | | | | [phone] | | | | | | | | +--------+ + + + + | 03/25/ | Office | Hematology & | Sandra Patel MD | | | 2018 | Visit | Oncology | [address] | | | | | | [place], [place] | | | | | | [address] | | | | | | [phone] | | | | | | | | +--------+ + + + + documented as of this encounter Visit Diagnoses Not on filedocumented in this encounter"
--- OUTSIDE RECORDS SUMMARY | ~2019-01-30 | XMS | Encounter Summary ---
Demographics + + + | Address | [address] | | | [place] [address] | + + + | Home Phone [...] Team Providers + +------+ + | Care Binding Dyer Name | Role | Phone | + [...] + + | 03/12/ | Hospital | [facility] [address] | Guero Vargas MD | | | 2018 - | Encounter | [facility] | [address] | | | | | Road Mailcode: | [place], [place] | | | 03/15/ | | [id number] | [address] | | | 2017 | | [place], | [phone] | | | | | [place] [address] | | | | | | [phone] | | | +--------+ + + + [...] might be differe nt from the original. [facility] Discharge Summary Discharging Provider: Leo Kim [...] with close monitoring. - neulasta scheduled @ [place] for 03/17 @ 10am. labs and port care @ [facility] start 03/21. Chemotherapy: C2D1 03/12/18 Ifos 2500mg/m^2 x 2.6 m^2with Mesna 2200mg in NaCl 0.9% for 2hrs q20hrs x 4doses Epirubicin 30mg/m2 x x 2.6 m^1x20vjt x 4doses Mesna 2200mg for 15minutes to [...] RLE:has not improved much since dc from [place] 1 week ago, pt also havin g [...] home dose Citalopram 40mg daily - start [id number] qhs adjunct to citalopram and for CINV [...] 2 without complication - neulasta scheduled @ [place] for 03/17 @ 10am. labs and port care @ [facility] start 03/21. Chemotherapy: C2D1 03/12/18 Ifos 2500mg/m^2 x 2.6 m^2with Mesna 2200mg in NaCl 0.9% for 2hrs q20hrs x 4doses Epirubicin 30mg/m2 x x 2.6 m^9t72zvs x 4doses Mesna 2200mg for 15minutes to [...] RLE:has not improved much since dc from [place] 1 week ago, pt also havin g [...] home dose Citalopram 40mg daily - start Jdjallduet44ae qhs adjunct to citalopram and for CINV [...] Discharge Medications: Tati Cage Home Medication Instructions [id number] Printed on:03/15/18 0461 Medication Information citalopram 40 mg oral tablet [...] Take 25 mg by mouth once daily. Opyaqwdey-Fymzrceuz-Yq-Mag-Sim [id number] mg/30 mL mucous membrane mouthwash Take 5 [...] as needed for anxiety (1st line nausea/vomiting). [facility] Bedside commode for nighttime use following foot [...] on weekends call paging ope rator at [phone] ask for front desk coordinator doctor for Heme-Onc if you have any [...] PM Hem Starter Nurse Hematology/Medical Oncology at [facility] [phone] HemOn 04/02/2018 3:00 PM Lynda Basurto [facility] Orthopaedics & Rehabilitation [phone] Sarcoma 04/02/2018 3:40 PM Sandra Patel Hematology/Medical Oncology at [place] [address] [phone] Sarcoma Schedule the following appointment(s) when you get home [facility] - Infusion. Go on 03/17/2018. Why: neulasta and labs appointment @ 10am. please make appointments for weekly lab draws while you're in. Contact information Phone #: [phone] Discharge Physical Exam: Last 24 hour min/max [...] tonight and receive GCSF on Saturday at [facility]. We had to reduce t he dosage of dexamethasone due to insomnia and anxiety. This should be taken into considera tion for future admissions. Guero Vargas MD Athlete Marketing Agentclient customer manager Medical Oncology and Hematology documented in this [...] 04-15-18, if not be fore. Discharge Nurse: INURKA JIMENEZ RN Date: 03/15/2018 Discharge Time: 6:00 [...] with close monitoring. - torie scheduled @ [place] for 03/17 @ 10am. labs and port care @ [facility] start 03/21. Chemotherapy: C2D1 03/12/18 Ifos 2500mg/m^2 x 2.6 m^2 with Mesna 2200mg in NaCl 0.9% for 2hrs q20hrs x 4doses Epirubicin 30mg/m2 x x 2.6 m^5r92fph x 4doses Mesna 2200mg for 15minutes to [...] RLE:has not improved much since dc from [place] 1 week ago, pt also havin g [...] home dose Citalopram 40mg daily - start Qindiqbqob93qg qhs adjunct to citalopram and for CINV [...] Full CAMRYN FLYNN, PA-C Medical Oncology/Hematology pager #[phone] Associated attestation - Guero Vargas MD - [...] There are no signs of ifos induced BUSINESS CONSULT toxicity. She is on clindamycin for her left stump incision which had early signs of in fection. Given that she will become neutropenic I have recommended prophylactic antibtoics. She displays no signs of infection. Guero Vargas MD Athlete Marketing Agentclient customer manager Medical Oncology and Hematology documented in this encounter Plan of Treatment +--------+ + + + + | Date | Type | Specialty | Care Team | Description | +--------+ + + + + | 03/25/ | Appointment | Radiology | Sandra Patel MD | | | 2019 | | | [address] | | | | | | [place], [place] | | | | | | [address] | | | | | | [phone] | | | | | | | | +--------+ + + + + | 03/25/ | Office | Orthopedics | Lynda Basurto, | | | 2018 | Visit | | [address] | | | | | | [address] | | | | | | [place], [place] | | | | | | [address] | | | | | | [phone] | | | | | | | | +--------+ + + + + | 03/25/ | Office | Hematology & | Sandra Patel MD | | | 2018 | Visit | Oncology | [address] | | | | | | [place], [place] | | | | | | [address] | | | | | | [phone] | | | | | | | [...] EXAM | e | 6:15 AM | ([facility]) | procedure are in the | | [...] [facility] | [address] | [place] [address] | | | SERVICES, ANTONI | PARK [...] | + + + + + | [facility] | [address] | [place] [address] | | | SERVICES, CORE | [address]O [...] + + + + + | [facility] | [address] | [place] [address] | | | SILVIO, ANTONI | ARMANDO [...] Note | + + | Service Account, Lumetrics In Interface - 03/13/2018 12:35 PM PDT [...] PM PDT | | | | | [facility] 03/13/18 at 1245, Last dose on [...]
--- OUTSIDE RECORDS SUMMARY | ~2019-01-30 | XMS | Encounter Summary ---
Demographics + + + | Address | [address] | | | [place] [address] | + + + | Home Phone [...] Team Providers + +------+ + | Care Bed Placement Coordinator Name | Role | Phone | [...] | | | | | Sarahy Conner [place], | | | | | | [place] [address] | | | +--------+--------+ + + + [...] Ave | | | | | | [place], [place] | | | | | | [address] | | | | | | [phone] | | | | | | | | +--------+ + + + + | 03/25/ | Office | Orthopedics | Lynda Basurto, | | | 2018 | Visit | | [address] | | | | | | [address] | | | | | | [place], [place] | | | | | | [address] | | | | | | [phone] | | | | | | | | +--------+ + + + + | 03/25/ | Office | Hematology & | Sandra Patel MD | | | 2018 | Visit | Oncology | [address] | | | | | | [place], [place] | | | | | | [address] | | | | | | [phone] | | | | | | | | +--------+ + + + + documented as of this encounter Visit Diagnoses Not on filedocumented in this encounter"
--- OUTSIDE RECORDS SUMMARY | ~2019-01-30 | XMS | Encounter Summary ---
Demographics + + + | Address | [address] | | | [place] [address] | + + + | Home Phone [...] Phone | + + +---------+ + | Kkia Cage | ECON | Unknown | | + + +---------+ + Care Team Providers + +------+ + | Care Corn Husk Baler Name | Role | Phone | + +------+ + | Santo Gooden MD | PCP | | + +------+ + Encounter Details +--------+ + + + + | Date | Type | Department | Care Team | Description | +--------+ + + + + | 05/04/ | Telephone | Hematology/Medical | [facility] | | | 2017 | | Oncology at [place] | MD Carlyle [address] | | | | | for Health & Healing | [address] | | | | | [address] | [place], [place] | | | | | Mailcode: [place] | [address] | | | | | for Health and | [phone] | | | | | Healing, [facility] 2 | | | | | | [place], [place] | | | | | | [address] | | | | | | [phone] | | | +--------+ + + + [...] | | | 2018 | | | [address] | | | | | | [place], [place] | | | | | | [address] | | | | | | [phone] | | | | | | | | +--------+ + + + + | 03/25/ | Office | Orthopedics | Lynda Basurto, | | | 2019 | Visit | | [address] | | | | | | [address] | | | | | | [facility] [place] | | | | | | [address] | | | | | | [phone] | | | | | | | | +--------+ + + + + | 03/25/ | Office | Hematology & | Sandra Patel MD | | | 2019 | Visit | Oncology | [address] | | | | | | [place], [place] | | | | | | [address] | | | | | | [phone] | | | | | | | | +--------+ + + + + documented as of this encounter Visit Diagnoses Not on filedocumented in this encounter"
--- OUTSIDE RECORDS SUMMARY | ~2019-01-30 | XMS | Encounter Summary ---
Demographics + + + | Address | [address] | | | [place] [address] | + + + | Home Phone [...] Providers + +------+ + | Care Senior Network Security Architect Name | Role | Phone | [...] Nascimento | | | | | | [facility] | | | | | | [place], [place] | | | | | | [address] | | | +--------+ + + + [...] [address] | | | | | | [place] | | | | | | [address] | | | | | | [phone] | | | | | | | | +--------+ + + + + | 03/25/ | Office | Orthopedics | Lynda Basurto, | | | 2018 | Visit | | [address] | | | | | | [address] | | | | | | [place] | | | | | | [address] | | | | | | [phone] | | | | | | | | +--------+ + + + + | 03/25/ | Office | Hematology & | Sandra Patel MD | | | 2018 | Visit | Oncology | [address] | | | | | | [place] | | | | | | [address] | | | | | | [phone] | | | | | | | | +--------+ + + + + documented as of this encounter Visit Diagnoses Not on filedocumented in this encounter"
--- OUTSIDE RECORDS SUMMARY | ~2019-01-30 | XMS | Encounter Summary ---
Demographics + + + | Address | [address] | | | [place] [address] | + + + | Home Phone [...] Team Providers + +------+ + | Care Right Of Way Agent Name | Role | Phone | + +------+ + | Santo Gooden MD | PCP | | + +------+ + Encounter Details +--------+ + + + + | Date | Type | Department | Care Team | Description | +--------+ + + + + | 03/31/ | Procedure | Diagnostic Imaging | | | | 2018 | Pass | Services at [facility] | | | | | | [address] | | | | | | [facility] | | | | | | Mailcode: L[address] [facility] | | | | | | [facility], | | | | | | [place] [address] | | | | | | [phone] | | | +--------+ + + + [...] | | | 2018 | | | [address] | | | | | | [place], [place] | | | | | | [address] | | | | | | [phone] | | | | | | | | +--------+ + + + + | 03/25/ | Office | Orthopedics | Lynda Basurto, | | | 2018 | Visit | | [address] | | | | | | [address] | | | | | | [place], [place] | | | | | | [address] | | | | | | [phone] | | | | | | | | +--------+ + + + + | 03/25/ | Office | Hematology & | Sandra Patel MD | | | 2019 | Visit | Oncology | [address] | | | | | | [place], [place] | | | | | | [address] | | | | | | [phone] | | | | | | | | +--------+ + + + + documented as of this encounter Visit Diagnoses Not on filedocumented in this encounter"
--- OUTSIDE RECORDS SUMMARY | ~2019-01-30 | XMS | Encounter Summary ---
Demographics + + + | Address | [address] | | | [place] [address] | + + + | Home Phone [...] Team Providers + +------+ + | Care Card Player Name | Role | Phone | + [...] | | | (HCC) | Ave | [facility] | | | | | Procedures | [place], [place] | Road | | | | | [place] | [address] | Mailcode: | | | | | [place] | Phone: | [address] [facility] | | | | | [place] | [phone] | [facility] | | | | | SCAN,THORAX, | Fax: | [place], [place] | | | | | W/O [place] | [phone] | [address] | | | | | | | Phone: | | | | | | | [phone] | | | | | | | Fax: | | | | | | | [phone] | +--------+--------+ + + + + Reason for Visit + + + | Reason | Comments | + + + | Scheduling | | + + + Encounter Details +--------+ + + + + | Date | Type | Department | Care Team | Description | +--------+ + + + + | 04/28/ | Telephone | Hematology/Medical | Sandra Patel MD | Scheduling | | 2018 | | Oncology at [place] | [address] | | | | | for Health & Healing | [place], [place] | | | | | [address] | [address] | | | | | Mailcode: [place] | [phone] | | | | | for Health and | | | | | | Healing, [address] | | | | | | [place], [place] | | | | | | [address] | | | | | | [phone] | | | +--------+ + + + [...] | | | 2018 | | | [address] | | | | | | [place], [place] | | | | | | [address] | | | | | | [phone] | | | | | | | | +--------+ + + + + | 03/25/ | Office | Orthopedics | Lynda Basurto, | | | 2019 | Visit | | [address] | | | | | | [address] | | | | | | [place], [place] | | | | | | [address] | | | | | | [phone] | | | | | | | | +--------+ + + + + | 03/25/ | Office | Hematology & | Sandra Patel MD | | | 2019 | Visit | Oncology | [address] | | | | | | [facility] [place] | | | | | | [address] | | | | | | [phone] | | | | | | | [...]
--- OUTSIDE RECORDS SUMMARY | ~2019-01-30 | XMS | Encounter Summary ---
Demographics + + + | Address | [address] | | | [place] [address] | + + + | Home Phone [...] Team Providers + +------+ + | Care Tumblers Supervisor Name | Role | Phone | [...] | Abscess | | 2019 | | [facility] [address] | [address] [facility] | | | | | [place] Mailcode: CH12A | [address] | | | | | [facility] | [place], [place] | | | | | and [facility] | [address] | | | | | Floor [place], [place] | [phone] | | | | | [address] | | | | | | [phone] | | | +--------+ + + + [...] | | | 2019 | | | [address] | | | | | | [place], [place] | | | | | | [address] | | | | | | [phone] | | | | | | | | +--------+ + + + + | 03/25/ | Office | Orthopedics | Lynda Basurto, | | | 2019 | Visit | | [address] | | | | | | [address] | | | | | | [place], [place] | | | | | | [address] | | | | | | [phone] | | | | | | | | +--------+ + + + + | 03/25/ | Office | Hematology & | Sandra Patel MD | | | 2018 | Visit | Oncology | [address] | | | | | | [place], [place] | | | | | | [address] | | | | | | [phone] | | | | | | | | +--------+ + + + + documented as of this encounter Visit Diagnoses Not on filedocumented in this encounter"
--- OUTSIDE RECORDS SUMMARY | ~2019-01-30 | XMS | Encounter Summary ---
Demographics + + + | Address | [address] | | | [place] [address] | + + + | Home Phone [...] Providers + +------+ + | Care Manager Marketing Name | Role | Phone | + +------+ + | Santo Gooden MD | PCP | | + +------+ + Encounter Details +--------+ + + + + | Date | Type | Department | Care Team | Description | +--------+ + + + + | 05/04/ | Telephone | Hematology/Medical | Saurav | | | 2017 | | Oncology at [place] | MD Carlyle [address] | | | | | for Health & Healing | [address] | | | | | [address] | [place], [place] | | | | | Mailcode: [place] | [address] | | | | | for Health and | [phone] | | | | | Healing, [facility] 2 | | | | | | [place], [place] | | | | | | [address] | | | | | | [phone] | | | +--------+ + + + [...] [address] | | | | | | [place], [place] | | | | | | [address] | | | | | | [phone] | | | | | | | | +--------+ + + + + | 03/25/ | Office | Orthopedics | Lynda Basurto, | | | 2019 | Visit | | [address] | | | | | | [address] | | | | | | [facility] [place] | | | | | | [address] | | | | | | [phone] | | | | | | | | +--------+ + + + + | 03/25/ | Office | Hematology & | Sandra Patel MD | | | 2019 | Visit | Oncology | [address] | | | | | | [place], [place] | | | | | | [address] | | | | | | [phone] | | | | | | | | +--------+ + + + + documented as of this encounter Visit Diagnoses Not on filedocumented in this encounter"
--- OUTSIDE RECORDS SUMMARY | ~2019-01-30 | XMS | Encounter Summary ---
Demographics + + + | Address | [address] | | | [place] [address] | + + + | Home Phone [...] Team Providers + +------+ + | Care Geothermal Powerplant Mechanic Name | Role | Phone | [...] | Malignant | Lynda, | MD [address] | | | | | neoplasm of | [address] | | | | | soft tissue | [address] | [place], [place] | | | | | of left | [address] | [address] | | | | | lower | [place], [place] | Phone: | | | | | extremity | [address] | [phone] | | | | | (HCC) | Phone: | Fax: | | | | | Procedures | [phone] | [phone] | | | | | CONSULT TO | Fax: | | | | | | HEMATOLOGY / | [phone] | | | | | | ONCOLOGY [...] | Oncology at [facility] | [address] [place], | | | | | [address] | [place] [address] | | | | | Mailcode: Center | | | | | | for Health and | | | | | | Healing, [address] | | | | | | [place], [place] | | | | | | [address] | | | | | | [phone] | | | +--------+ + + + [...] & remote memory intact and discharged with family/canal driver, ambulatory and instruct ions have been [...] [place] | | | | | | [address] | | | | | | [phone] | | | | | | | | +--------+ + + + + | 03/25/ | Office | Orthopedics | Lynda Basurto, | | | 2018 | Visit | | [address] | | | | | | [address] | | | | | | [place], [place] | | | | | | [address] | | | | | | [phone] | | | | | | | | +--------+ + + + + | 03/25/ | Office | Hematology & | Sandra aPtel MD | | | 2018 | Visit | Oncology | [address] | | | | | | [place], [place] | | | | | | [address] | | | | | | [phone] | | | | | | | [...] + + + + | [facility] POINT | [address] [facility] | [place] [address] | | | OF CARE TESTS | [...] | 4.55 | 4.00 - 5.20 | [facility], | | | | | 10*6/uL | POINT OF | | | | | | CARE TESTS | | + + + + + + | HGB POC | 13.5 | 12.0 - 16.0 | [facility], | | | | | g/dL | POINT OF | | | | | | CARE TESTS | | + + + + + + | HCT POC | 40.1 | 36.0 - 46.0 % | [facility], | | | | | | POINT OF | | | | | | CARE TESTS | | + + + + + + | MCV POC | 88.1 | 80.0 - 100 fL | [facility], | | | | | [...] [facility] PO[facility] | [address] | [place] [address] | | | OF CARE TESTS | [...] [facility] | [address] | [place] [address] | | | SERVICES, ANTONI | ARMAND[address] [...]
--- OUTSIDE RECORDS SUMMARY | ~2019-01-30 | XMS | Encounter Summary ---
Demographics + + + | Address | [address] | | | [place] [address] | + + + | Home Phone [...] Team Providers + +------+ + | Care Train Braker Name | Role | Phone | + [...] | Synovial | Sandra Schmitt MD | [facility] [address] | | | | | sarcoma | [address] | [address] | | | | | ([facility]) | Ave | Mailcode: | | | | | Procedures | [place], [place] | [facility] | | | | | [place] | [address] | for Health | | | | | [place] | Phone: | and Healing, | | | | | [address] | [phone] | 3rd Floor | | | | | SCAN,THORAX, | Fax: | [place], [place] | | | | | W/O [place] | [phone] | [address] | | | | | | | Phone: | | | | | | | [phone] | | | | | | | Fax: | | | | | | | [phone] | +--------+--------+ + + + + Reason [...] | soft tissue | [address] | [place], [place] | | | | | of left | [address] | [address] | | | | | lower | [place], [place] | Phone: | | | | | extremity | [address] | [phone] | | | | | (HCC) | Phone: | Fax: | | | | | Procedures | [phone] | [phone] | | | | | CONSULT TO | Fax: | | | | | | HEMATOLOGY / | [phone] | | | | | | ONCOLOGY [...] | | for Health & Healing | [place], [place] | | | | | [address] | [address] | | | | | Mailcode: CH7N | [phone] | | | | | [facility] | | | | | | and [facility], | | | | | | [place], [place] | | | | | | [address] | | | | | | [phone] | | | +--------+---------+ + + + [...] Tati Cage : 1985 Home Town: [place], [place] Referring Physician: Sb Diagnosis: high risk [...] Yoli cations: phantom pain Miscellaneous Medical [employer] [facility] Bedside commode for nighttime use following foot [...] perfused. No edema. Neurologic - Awake, alert. regional forester grossly intact. Affect/Psych - Appropriate. ECOG - [...] BERNARD for port removal. Sandra Patel MD [facility] Hematology/Oncology [facility] Multidisciplinary Sarcoma Program documented in this encounter Plan of Treatment +--------+ + + + + | Date | Type | Specialty | Care Team | Description | +--------+ + + + + | 03/25/ | Appointment | Radiology | Sandra Patel MD | | | 2018 | | | [address] | | | | | | [place], [place] | | | | | | [address] | | | | | | [phone] | | | | | | | | +--------+ + + + + | 03/25/ | Office | Orthopedics | Lynda Basurto, | | | 2018 | Visit | | [address] | | | | | | [address] | | | | | | [place], [place] | | | | | | [address] | | | | | | [phone] | | | | | | | | +--------+ + + + + | 03/25/ | Office | Hematology & | Sandra Patel MD | | | 2019 | Visit | Oncology | [address] | | | | | | [place], [place] | | | | | | [address] | | | | | | [phone] | | | | | | | [...]
--- OUTSIDE RECORDS SUMMARY | ~2019-01-30 | XMS | Encounter Summary ---
Demographics + + + | Address | [address] | | | [place] [address] | + + + | Home Phone [...] Team Providers + +------+ + | Care Furnace Operator And Tender Name | Role | Phone | [...] Closed | | Surgical | Procedures | Joreg | Zak Loredo | | | | Oncology | CPT 76524 | Sandra Schmitt MD | [address], [address] | | | | | | [address] | [address] | | | | | | Ave | [address] | | | | | | [place] | [place] | | | | | | [address] | [address] | | | | | | Phone: | Phone: | | | | | | [phone] | [phone] | | | | | | Fax: | Fax: | | | | | | [phone] | [phone] | +--------+--------+ + + + + Encounter [...] [address] Mail Code: | [address] [place], | | | | | [facility] | [place] [address] | | | | | and Healing, | [phone] | | | | | Building 2 | | | | | | [place], [place] | | | | | | [address] | | | | | | [phone] | | | +--------+ + + + [...] this encounter Patient Instructions Patient Instructions Leia Cmaarillo RN - 08/15/2018 2:00 PM PSTOncology Patient [...] Procedure Note: Attending Surgeon: Zak Loredo MD Geospatial Program Management Officer(s): Preoperative Diagnosis: Sarcoma Postoperative Diagnosis: Same Procedure: Excision of 10-St Lucian Dual Lumen SmartPort system from right side Anesthesia: 1% Xylocaine local. 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 Specimen Removed: 10-St Lucian Dual lumen SmartPort system, discarded. Procedure In Detail: The patient was identified and taken to the minor surgery suite. Info rmed consent was obtained. A surgical team pause was held. She was placed in the minor touro infirmary table in supine position. The right infraclavicular [...] [place] | | | | | | [address] | | | | | | [phone] | | | | | | | | +--------+ + + + + | 03/25/ | Office | Orthopedics | Lynda Basurto, | | | 2018 | Visit | | [address] | | | | | | [address] | | | | | | [place], [place] | | | | | | [address] | | | | | | [phone] | | | | | | | | +--------+ + + + + | 03/25/ | Office | Hematology & | Sandra Patel MD | | | 2018 | Visit | Oncology | [address] | | | | | | [place], [place] | | | | | | [address] | | | | | | [phone] | | | | | | | | +--------+ + + + + documented as of this encounter Visit Diagnoses + + | Diagnosis | + + | 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
--- OUTSIDE RECORDS SUMMARY | ~2019-01-30 | XMS | Encounter Summary ---
Demographics + + + | Address | [address] | | | [place] [address] | + + + | Home Phone [...] Team Providers + +------+ + | Care Mop Worker Name | Role | Phone | [...] | 2018 | Encounter | Oncology at [facility] | [address] | | | | | [address] | [place] [address] | | | | | Mailcode: [place] | | | | | | [facility] and | | | | | | Healing, [address] | | | | | | [place], [place] | | | | | | [address] | | | | | | [phone] | | | +--------+ + + + [...] [place] | | | | | | [address] | | | | | | [phone] | | | | | | | | +--------+ + + + + | 03/25/ | Office | Orthopedics | Lynda Basurto, | | | 2018 | Visit | | [address] | | | | | | [address] | | | | | | [place], [place] | | | | | | [address] | | | | | | [phone] | | | | | | | | +--------+ + + + + | 03/25/ | Office | Hematology & | Sandra Patel MD | | | 2018 | Visit | Oncology | [address] | | | | | | [place], [place] | | | | | | [address] | | | | | | [phone] | | | | | | | [...] LUIS - AZAM, POINT | [address] [facility] | [place] [address] | | | OF CARE TESTS | [...] 1.2 (H) | 0.1 - 0.9 | [facility], | | | | | 10*3/uL | POINT OF | | | | | | CARE TESTS | | + + + + + + | EOS #, POC | 0.1 | 0.0 - 0.5 | [facility], | | | | | 10*3/uL | POINT OF | | | | | | CARE TESTS | | + + + + + + | BASO #, POC | 0.2 (H) | 0.0 - 0.1 | [facility], | | | | | 10*3/uL | [...] | [facility] | [address] [facility] [address] | [place] [address] | | | OF CARE TESTS | [...] [facility] | [address] | [place] [address] | | | SERVICES, CORE | PARK [...] [facility] | [address] | [place] [address] | | | SERVICES, CORE | PARK [...] | + + + + + | [facility] | [address] | [place] [address] | | | SERVICES, CORE | ARMANDO [...]
--- OUTSIDE RECORDS SUMMARY | ~2019-01-30 | XMS | Encounter Summary ---
Demographics + + + | Address | [address] | | | [place] [address] | + + + | Home Phone [...] Team Providers + +------+ + | Care Duplication Specialist Name | Role | Phone | + +------+ + | Santo Gooden MD | PCP | | + +------+ + Encounter Details +--------+ + + + + | Date | Type | Department | Care Team | Description | +--------+ + + + + | 02/17/ | Pharmacy | [facility] | | | | 2018 | Visit | & [facility] Pharmacy | | | | | | [address] | | | | | | [place], [place] | | | | | | [address] | | | | | | [phone] | | | +--------+ + + + [...] | | | | | | [place], [place] | | | | | | [address] | | | | | | [phone] | | | | | | | | +--------+ + + + + | 03/25/ | Office | Orthopedics | Lynda Basurto, | | | 2018 | Visit | | [address] | | | | | | [address] | | | | | | [place], [place] | | | | | | [address] | | | | | | [phone] | | | | | | | | +--------+ + + + + | 03/25/ | Office | Hematology & | Sandra Patel MD | | | 2018 | Visit | Oncology | [address] | | | | | | [place] | | | | | | [address] | | | | | | [phone] | | | | | | | | +--------+ + + + + documented as of this encounter Visit Diagnoses Not on filedocumented in this encounter"
--- OUTSIDE RECORDS SUMMARY | ~2019-01-30 | XMS | Encounter Summary ---
Demographics + + + | Address | [address] | | | [place] [address] | + + + | Home Phone [...] Team Providers + +------+ + | Care Cabinetmaker Apprentice Name | Role | Phone | + +------+ + | Santo Gooden MD | PCP | | + +------+ + Encounter Details +--------+ + + + + | Date | Type | Department | Care Team | Description | +--------+ + + + + | 02/06/ | Pharmacy | [facility] | | | | 2018 | Visit | & Healing Pharmacy | | | | | | [address] | | | | | | [place], [place] | | | | | | [address] | | | | | | [phone] | | | +--------+ + + + [...] [place] | | | | | | [address] | | | | | | [phone] | | | | | | | | +--------+ + + + + | 03/25/ | Office | Orthopedics | Lynda Basurto, | | | 2018 | Visit | | [address] | | | | | | [address] | | | | | | [place], [place] | | | | | | [address] | | | | | | [phone] | | | | | | | | +--------+ + + + + | 03/25/ | Office | Hematology & | Sandra Patel MD | | | 2018 | Visit | Oncology | [address] | | | | | | [place], [place] | | | | | | [address] | | | | | | [phone] | | | | | | | | +--------+ + + + + documented as of this encounter Visit Diagnoses Not on filedocumented in this encounter"
--- OUTSIDE RECORDS SUMMARY | ~2019-01-30 | XMS | Encounter Summary ---
Demographics + + + | Address | [address] | | | [place] [address] | + + + | Home Phone [...] Team Providers + +------+ + | Care Sail Repairer Name | Role | Phone | [...] + + | 04/14/ | Telephone | Hematology/Medical | Sandra Patel MD | Lab Draw | | 2018 | | Oncology at [facility] | [address] | | | | | for Health & Healing | [place], [place] | | | | | [address] | [address] | | | | | Mailcode: [facility] | [phone] | | | | | for Health and | | | | | | [facility] | | | | | | [place], [place] | | | | | | [address] | | | | | | [phone] | | | +--------+ + + + [...] [address] | | | | | | [place], [place] | | | | | | [address] | | | | | | [phone] | | | | | | | | +--------+ + + + + | 03/25/ | Office | Orthopedics | Doung, GallegosAlexander, | | | 2018 | Visit | | [address] | | | | | | [address] | | | | | | [place], [place] | | | | | | [address] | | | | | | [phone] | | | | | | | | +--------+ + + + + | 03/25/ | Office | Hematology & | Sandra Patel MD | | | 2018 | Visit | Oncology | [address] | | | | | | [place], [place] | | | | | | [address] | | | | | | [phone] | | | | | | | | +--------+ + + + + documented as of this encounter Visit Diagnoses Not on filedocumented in this encounter"
--- OUTSIDE RECORDS SUMMARY | ~2019-01-30 | XMS | Encounter Summary ---
Demographics + + + | Address | [address] | | | [place] [address] | + + + | Home Phone [...] Providers + +------+ + | Care Cutter Grind Tool Technician Name | Role | Phone | [...] E[place] | | | | | | ([facility]) | [address] | | | | | | Procedures | Sarahy Conner | | | | | | CT CHEST WO | [place], [place] | | | | | | CONTRAST | [address] | | | | | | | Phone: | | | | | | | [phone] | | | | | | | Fax: | | | | | | | [phone] | | + +--------+ + + + + Encounter Details +--------+---------+ + + + | Date | Type | Department | Care Team | Description | +--------+---------+ + + + | 08/06/ | Office | [facility] | Lynda Basurto, | 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 | & Rehabilitation at | [address] | ([facility]) (Primary Dx) | | | | [address] | [address] | | | | | [place] Mailcode: | [place], [place] | | | | | [place] for [facility] | [address] | | | | | and Healing, | [phone] | | | | | Building [address] | | | | | | [place], [place] | | | | | | [address] | | | | | | [phone] | | | +--------+---------+ + + + [...] Ave | | | | | | [place], [place] | | | | | | [address] | | | | | | [phone] | | | | | | | | +--------+ + + + + | 03/25/ | Office | Orthopedics | Lynda Basurto, | | | 2018 | Visit | | [address] | | | | | | [address] | | | | | | [place], [place] | | | | | | [address] | | | | | | [phone] | | | | | | | | +--------+ + + + + | 03/25/ | Office | Hematology & | Sandra Patel MD | | | 2018 | Visit | Oncology | [address] | | | | | | [place], [place] | | | | | | [address] | | | | | | [phone] | | | | | | | | +--------+ + + + + + +---------+--------+ + + | Name | Type | Priori | Associated Diagnoses | Order Schedule | | | | ty | | | + +---------+--------+ + + | CT CHEST WO CONTRAST | Imaging | Routin | Synovial sarcoma | Expected: | | | | e | ([facility]) | 11/04/2018, Expires: | | | | | | 09/06/2019 | + +---------+--------+ + + documented as of this encounter Visit Diagnoses + + | Diagnosis | + + | 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
--- OUTSIDE RECORDS SUMMARY | ~2019-01-30 | XMS | Encounter Summary ---
Demographics + + + | Address | [address] | | | [place] [address] | + + + | Home Phone [...] Team Providers + +------+ + | Care Power Cutting Machine Operator Name | Role | [...] + + | 03/12/ | Office | [facility] Orthopaedics | Lynda ulloa, | 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 | & Rehabilitation at | [address] | ([facility]) (Primary Dx) | | | | [facility] [address] | [address] | | | | | [place] Mailcode: | [place], [place] | | | | | [facility] | [address] | | | | | and Healing, | [phone] | | | | | Building [address] | | | | | | [place], [place] | | | | | | [address] | | | | | | [phone] | | | +--------+---------+ + + + [...] [address] | | | | | | [facility], [place] | | | | | | [address] | | | | | | [phone] | | | | | | | | +--------+ + + + + | 03/25/ | Office | Orthopedics | Lynda Basurto, | | | 2018 | Visit | | [address] | | | | | | [address] | | | | | | [place], [place] | | | | | | [address] | | | | | | [phone] | | | | | | | | +--------+ + + + + | 03/25/ | Office | Hematology & | Sandra Patel MD | | | 2018 | Visit | Oncology | [address] | | | | | | [place], [place] | | | | | | [address] | | | | | | [phone] | | | | | | | | +--------+ + + + + documented as of this encounter Visit Diagnoses + + | Diagnosis | + + | 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
--- OUTSIDE RECORDS SUMMARY | ~2019-01-30 | XMS | Encounter Summary ---
Demographics + + + | Address | [address] | | | [place] [address] | + + + | Home Phone [...] Providers + +------+ + | Care Labor And Delivery Registered Nurse Name | Role | Phone | + [...] site | | 2018 | Encounter | [facility] [address] | [address] [facility] | irritation | | | | Ave Mailcode: CH12A | [facility] | | | | | [facility] | [place], [place] | | | | | and | [address] | | | | | Floor [place], [place] | [phone] | | | | | [address] | | | | | | [phone] | | | +--------+ + + + [...] | | | 2018 | | | [address] | | | | | | [place], [place] | | | | | | [address] | | | | | | [phone] | | | | | | | | +--------+ + + + + | 03/25/ | Office | Orthopedics | Lynda Basurto, | | | 2018 | Visit | | [address] | | | | | | [address] | | | | | | [place], [place] | | | | | | [address] | | | | | | [phone] | | | | | | | | +--------+ + + + + | 03/25/ | Office | Hematology & | Sandra Patel MD | | | 2019 | Visit | Oncology | [address] | | | | | | [place], [place] | | | | | | [address] | | | | | | [phone] | | | | | | | | +--------+ + + + + documented as of this encounter Visit Diagnoses Not on filedocumented in this encounter"
--- OUTSIDE RECORDS SUMMARY | ~2019-01-30 | XMS | Encounter Summary ---
Demographics + + + | Address | [address] | | | [place] [address] | + + + | Home Phone [...] Providers + +------+ + | Care Senior Search Marketing Analyst Name | Role | Phone | [...] | | | 2017 | Event | [facility] | Kemar Martin MD | | | | | Admitting Desk | [address] [facility] | | | | | Located on the | [facility], | | | | | floor [address] [facility] | [place] [address] | | | | | [facility] | [phone] | | | | | [place], [place] | | | | | | [address] | | | +--------+ + + + [...] [place] | | | | | | [address] | | | | | | [phone] | | | | | | | | +--------+ + + + + | 03/25/ | Office | Orthopedics | Lynda Basurto, | | | 2018 | Visit | | [address] | | | | | | [address] | | | | | | [place], [place] | | | | | | [address] | | | | | | [phone] | | | | | | | | +--------+ + + + + | 03/25/ | Office | Hematology & | Sandra Patel MD | | | 2018 | Visit | Oncology | [address] | | | | | | [place], [place] | | | | | | [address] | | | | | | [phone] | | | | | | | [...]
--- OUTSIDE RECORDS SUMMARY | ~2019-01-30 | XMS | Encounter Summary ---
Demographics + + + | Address | [address] | | | [place] [address] | + + + | Home Phone [...] Team Providers + +------+ + | Care Foreign Language Professor Name | Role | Phone | + [...] pain; Foot | | 2018 | | [facility] [address] | [address] | swelling; Medication | | | | Ave Mailcode: CH12A | [address] | requested (Pain | | | | [place] for [facility] | [place], [place] | Meds ) | | | | and Healing, | [address] | | | | | Floor [place], [place] | [phone] | | | | | [address] | | | | | | [phone] | | | +--------+ + + + [...] [place] | | | | | | [address] | | | | | | [phone] | | | | | | | | +--------+ + + + + | 03/25/ | Office | Orthopedics | Rosy BasurtoAlexander, | | | 2018 | Visit | | [address] | | | | | | [address] | | | | | | [place], [place] | | | | | | [address] | | | | | | [phone] | | | | | | | | +--------+ + + + + | 03/25/ | Office | Hematology & | Sadnra Patel MD | | | 2018 | Visit | Oncology | [address] | | | | | | [place], [place] | | | | | | [address] | | | | | | [phone] | | | | | | | | +--------+ + + + + documented as of this encounter Visit Diagnoses Not on filedocumented in this encounter"
--- OUTSIDE RECORDS SUMMARY | ~2019-01-30 | XMS | Encounter Summary ---
Demographics + + + | Address | [address] | | | [place] [address] | + + + | Home Phone [...] + +------+ + | Care Director Of Marketing Analytics Name | Role | Phone | + [...] | | 2019 | | [facility] at [place] | [address] | Appeal) | | | | for Health & Healing | [place], [place] | | | | | [address] | [address] | | | | | Mailcode: [place] | [phone] | | | | | for Health and | | | | | | Healing, [facility] 2 | | | | | | [place], [place] | | | | | | [address] | | | | | | [phone] | | | +--------+ + + + [...] | | | 2018 | | | [address] | | | | | | [place], [place] | | | | | | [address] | | | | | | [phone] | | | | | | | | +--------+ + + + + | 03/25/ | Office | Orthopedics | Rosy BasurtoAlexander, | | | 2018 | Visit | | [address] | | | | | | [address] | | | | | | [place], [place] | | | | | | [address] | | | | | | [phone] | | | | | | | | +--------+ + + + + | 03/25/ | Office | Hematology & | Sandra Patel MD | | | 2018 | Visit | Oncology | [address] | | | | | | [place], [place] | | | | | | [address] | | | | | | [phone] | | | | | | | | +--------+ + + + + documented as of this encounter Visit Diagnoses Not on filedocumented in this encounter"
--- OUTSIDE RECORDS SUMMARY | ~2019-01-30 | XMS | Encounter Summary ---
Demographics + + + | Address | [address] | | | [place] [address] | + + + | Home Phone [...] Team Providers + +------+ + | Care Tub Operator Name | Role | Phone | [...] SW | | | | | | ([facility]) | [address] | | | | | | Procedures | Sarahy Conner | | | | | | PHYSICAL | [place], [place] | | | | | | THERAPY | [address] | | | | | | REFERRAL | Phone: | | | | | | PHYSICAL | [phone] | | | | | | THERAPY | Fax: | | | | | | REFERRAL | [phone] | | + +--------+ + + + [...] | | | | | Procedures | [facility] | [facility] | | | | | PHYSICAL | Rd | for Health | | | | | THERAPY | [place], [place] | and Healing, | | | | | REFERRAL | [address] | 1st floor | | | | | | Phone: | [place], [place] | | | | | | [phone] | [address] | | | | | | Fax: | Phone: | | | | | | [phone] | [phone] | | | | | | | Fax: | | | | | | | [phone] | +--------+--------+ + + + + Consultation [...] | ORTHOPEDICS | [address] | [address] [place], | | | | | | | [place] | | | | | | [place], [place] | [address] | | | | | | [address] | Phone: | | | | | | Phone: | [phone] | | | | | | [phone] | Fax: | | | | | | Fax: | [phone] | | | | | | [phone] | | +--------+--------+ + + + + [...] | | | | | THERAPY | [place], [place] | and Healing, | | | | | REFERRAL | [address] | 1st floor | | | | | | Phone: | [place], [place] | | | | | | [phone] | [address] | | | | | | Fax: | Phone: | | | | | | [phone] | [phone] | | | | | | | Fax: | | | | | | | [phone] | +--------+--------+ + + + + Consultation [...] | | AMPUTEE | [address] | [facility] | | | | | ORTHOPEDICS | [facility] | Rd [place], | | | | | | Rd | [place] | | | | | | [place], [place] | [address] | | | | | | [address] | Phone: | | | | | | Phone: | [phone] | | | | | | [phone] | Fax: | | | | | | Fax: | [phone] | | | | | | [phone] | | +--------+--------+ + + + + [...] | 02/06/ | Hospital | [facility] [address] | Lynda Basurto, | | | 2018 - | Encounter | [address] | [address] | | | | | ANITA DOVE | [address] | | | 02/11/ | | [place] [address] | [place], [place] | | | 2018 | | [phone] | [address] | | | | | | [phone] | | | | | | | [...] Dean DO - 02/11/2018 12:26 PM PDT [facility] DEPARTMENT OF ORTHOPAEDICS & REHABILITATION INPATIENT HOSPITAL DISCHARGE SUMMARY & INTERDISCIPLINARY INSTRUCTIONS Patient: Annika Cage CSN: [id number] Admission Date: 02/06/2018 Discharge Date: 02/11/2018 Attending Physician: Lynda Basurto MD PCP: Santo Gooden MD Service: [facility] Orthopaedics & Rehabilitation Diagnoses Principal Final [...] they suspect your wound is infected. Call [facility] Orthopedics first at [phone]. Activity Non-weight bearing on left leg. Restrictions: no range of motion restrictions. Encourage to perform extension exercises on left leg. OK to use knee scooter Condition on Discharge Stable Follow-Up Appointments ORTHOPEDICS OUTPATIENT CLINIC: 02/19/2018 2:20 PM Lynda Basurto [facility] Orthopaedics & Rehabilitation [phone] [place] PCP: As needed for any medical [...] administration instructions. 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 Additional Post-Op Instructions / What to Expect [...] Pierre Dean DO Orthopedic Surgery Resident Pager [phone] [facility] Department of Orthopaedics & Rehabilitation [address] [place] [address] Mail Code: OP31 [facility] [address] documented in this e ncounter Discharge Instructions Instructions FerchoLanette philippe, ASSOCIATE WEB DEVELOPER - 02/07/2018AMPUTEE RESOURCES: http://www.[employer]/newEnable Holdingspatient/ampower/Pages/Home.aspx http://www.[employer]/new-patient/ampower/ed-resources/Pages/Twvtr-mkc-Ovtoltxvar.asp x http://www.ojubd1kqon.org.au/news-events/news/raowjmtmd-vwczcl-pkhzntzseq-br-uttf-fkmhnaas- pgt-ayzbk-cpnqpzqq MENTAL HEALTH/SUICIDE PREVENTION RESOURCES [place] [facility] in [facility] is a 24-hour behavioral and mental health services center, providing immediate psychi atric care and a path to recovery for people experiencing a mental health crisis. Address: [facility], [address] [place] [address] Hours: 24 hours/day, 7 days a week, no appointment needed NATIONAL CRISIS LINES 25/03 National Suicide Prevention Lifeline 3-966-092-TALK (7204) Hearing and Speech Impaired 5-830-485-4TTY (3782) 25/03 Mental Health Treatment Referral Line 6-873-323-HELP (4124) [facility] CRISIS SERVICES For emergencies or life threatening situations, please call [facility] Mental Health Crisis Line [phone] (24 hours a day, 7 days a week) [facility] Mental health services for adults, children, and families; walk-ins welcome. Access informa tion and referral line for [facility]'s services in housing, recovery and assistance. Address: [facility] Walk-in Clinic/Referral service [address] [place] [address] (Near [address] [place] [address]) [place], [address] Transit: [employer] bus #4 Hours: 7 a.m.-10:00 p.m, 7 [...] Practitioner [facility] [address] [place] [address] Pierre Pucrell DO - 08/2018 6:46 AM PDT [facility] DEPARTMENT OF ORTHOPAEDICS & REHABILITATION PROGRESS NOTE [...] Pierre Dean DO Orthopedic Surgery Resident Pager [phone] Pierre Purcell DO - 07/2018 11:43 AM PDT [facility] DEPARTMENT OF ORTHOPAEDICS & REHABILITATION PROGRESS [...] Pierre Dean DO Orthopedic Surgery Resident Pager [phone] Jesusita Villavicencio NP - 02/10/2018 11:24 AM [...] Jesusita Mccullough NP Adult Pain Service Pager [phone] Team Pager [phone] Pierre Purcell DO - 02/09/2018 1:34 PM PDT [facility] DEPARTMENT OF ORTHOPAEDICS & REHABILITATION PROGRESS NOTE [...] limb sensate and well perfused A/P: Annika Caeg is a 32 y.o. female with the [...] Pierre Dean DO Orthopedic Surgery Resident Pager [phone] John Crawley - 02/10/20 18 12:59 PM [...] and summary of old medical records (source: [employer]), as summarized in the body of the note. Discussion of case with another healthcare provider nurse. Please page APS #[phone] with questions and concerns. EMILY STREET MD [...] and summary of old medical records (source: [employer]), as summarized in the body of the note. Discussion of case with another healthcare provider nurse. Please page APS #[phone] with questions and concerns. EMILY STREET MD Naeem Cleaning MD - 02/08/2018 9:05 AM PDTFormatting of this note might be different from the origi nal. [facility] DEPARTMENT OF ORTHOPAEDICS & REHABILITATION PROGRESS NOTE [...] discharge. HAYDE FLORES MD Orthopaedics PGY-3 Pager: [phone] oGualberto ulloa MD - 02/08/2018 8:57 AM PDTPt sleeping PE: Ht 1.727 m (5' 8"), Wt 139.7 kg (308 lb), BP 121/61, Pulse 89, Temperature 36.9 C (98.4 F), RR 18, SpO2 98%, BMI 46.83 kg/(m^2). 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 No kids. Lives with her mother Kika. [...] by primary care team. Madiha Rebollar DNP, FLASHER ADJUSTER-C [facility] [address] [place] [address], [place] [address] atricio Giles MD - 02/07/2018 7:18 AM PDTGold Surgery Brief Progress Note ID: Annika Cage is a 32 y.o. 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 No pneumothorax. A/P Uneventful port a cath placement. OK to use. Contact gold surgery with questions or concerns Remainder of care per primary team Dior Giles MD General Surgery [id number] signed by Patricio Giles MD at 02/07/2018 [...] Cleaning MD - 02/06/2018 5:31 PM PDT [facility] DEPARTMENT OF ORTHOPAEDICS & REHABILITATION PROGRESS NOTE [...] discharge. HAYDE FLORES MD Orthopaedics PGY-3 Pager: [phone] documente d in this encounter Plan of Treatment +--------+ + + + + | Date | Type | Specialty | Care Team | Description | +--------+ + + + + | 03/25/ | Appointment | Radiology | Sandra Patel MD | | | 2018 | | | [address] | | | | | | [place], [place] | | | | | | [address] | | | | | | [phone] | | | | | | | | +--------+ + + + + | 03/25/ | Office | Orthopedics | Sb GallegosShirley, | | | 2018 | Visit | | [address] | | | | | | [address] | | | | | | [place], [place] | | | | | | [address] | | | | | | [phone] | | | | | | | | +--------+ + + + + | 03/25/ | Office | Hematology & | Sandra Patel MD | | | 2018 | Visit | Oncology | [address] | | | | | | [place], [place] | | | | | | [address] | | | | | | [phone] | | | | | | | [...] rmed At | + +------ + | [facility] | [facility] DEPT OF | | [facility] | ANJEL MYRICK | | Laboratory [facility] | | | [place] [address] Pt Name: | | | ANNIKA CAGE Study Date/Time 02/09/2018 / 11:45:04 | | | AMMRN: [id number] Most recent | | | prior: -Acc #: [id number] No. previous | | | echos: 0DOB: 1985 32 years Heart Rate: | | | 78 bpmHeight: 68.0 in Blood | | | Pressure: 121/61 mm/HgWeight: 308.0 | | | lb Gender: | | | FBSA: 2.46 m2 Order | | | ID: [id number] [employer] Buffer: John Gonzalez MA, | | | RDCSSonographer [...] | indexed values Report electronically signed by: [id number] Justin | | | Malachi DIAS (02/09/2018, 3:09:17 PM) Final | | |Report electronically signed by: [id number] Justin Ly MD (02/09/2018, 3:09:17 | | |PM) | | | | | | | | | | | | Final | | + +------ + + + | Procedure Note | + + | Interface, Cardiology Results - 02/09/2018 3:[address] [facility] [email or web address] [facility] | | [facility] Echocardiography Laboratory [address] [place] [address] | | [place], [place] [address] Pt Name: ANNIKA WILKERSON | | NILES Study Date/Time 02/09/2018 / 11:45:04 AMMRN: [id number] Most | | recent prior: -Acc #: [id number] No. previous echos: 0DOB: 1985 32 | | years Heart Rate: 78 bpmHeight: 68.0 in Blood Pressure: 121/61 | | mm/HgWeight: 308.0 lb Gender: FBSA: 2.46 m2 | | Order ID: [id number] [employer] Buffer: John Gonzalez MA, RDCSSonographer | | 2:Referring [...] values Report | | electronically signed by: [id number] Justin Ly MD (02/09/2018, 3:09:17 PM) | [...] | | | |Report electronically signed by: [id number] Justin Ly MD (02/09/2018, 3:09:17 | |PM) | | | | | | | | Final | + + + + + + + | Performing | Address | City/State/Zipcode | Phone Number | | Organization | | | | + + + + + | [facility] | [address] | [place], [place] | | | CARDIOLOGY | [address] | [address] | | + + + + + [...] | + + + + + | [facility] | [address] | [place] [address] | | | SERVICES, CORE | PARK [...] | | | LABORATORY | | | SLOVENIAN | | | SERVICES, | | | [...] | + + + + + | [facility] | [address] | [place] [address] | | | SERVICES, CORE | SARAHY [...] Preoperative | | | Diagnosis: need for custodial central venous access Postoperative | | | [...] | | Attending Surgeon: Lynda Basurto MD Icd 9 Coder(s): Hayde | | Mike Flores MD. Preoperative [...] | DARIUS/SHANIAD: 02/06/2018 15:36:23DT: 02/06/2018 19:40:30Job #: [id number] | + + X-RAY PORTABLE CHEST 1 VIEW (02/06/2018 4:54 PM PDT) + + | Specimen | + + | | + + + + + | Narrative | Performed At | + + + | EXAM: MA CHEST 1 VIEW HISTORY: s/p port placement [...] | | | presented. Final signature: Roland uW MD 02/06/2018 5:09 | | | PM Preliminary: Roland Wu MD Dictation initiated: | | | Roland Wu MD 02/06/2018 5:08 PM | | + + + + + | Procedure Note | + + | Service Account, Radiant Res In Interface - 02/06/2018 5:11 PM PDT EXAM: MA CHEST 1 | | VIEW HISTORY: s/p [...] | Hayde Flores MD 02/06/2018 3:58 PM [facility] & | | | [facility] Department of Orthopaedics & Rehabilitation | | | BRIEF OPERATIVE NOTE | | | Patient: Annika Cage | | | | | | CSN: [id number] | | | Date: 02/06/2018 | | | Attending | | | Surgeon: Lynda Basurto MD Icd 9 Coder(s): 1. HAYDE FLORES, | | | Preoperative [...] Saturday HAYDE FLORES MD | | | [facility] & [employer] | | | [place] Department of Orthopaedics & Rehabilitation [address] [place] [address] | | | [facility] Mail Code: [address] [phone] | | | Pager: [phone] | | + + + CAPILLARY BLOOD [...] LUIS OMALLEY | [address] | [place], [place] | | | [facility] | [address] | [address] | | | TESTS | | | [...] | | | | | | biopsy ([id number]). Case | | | | | | [...] biopsy | | | | | | [id number]). Please | | | | | | [...] | | | | | | number [id number]. Left | | | | | | [...] stitch. | | | | | | [employer] sections | | | | | | [...] | | | | | | underlying [id number]-I76, | | | | | | composite section of | | | | | | posterior tumor | | | | | | jfhrpagL25-V36, | | | | | | additional composite | | | | | | section of ewtibX46-N78, | | | | | | additional composite | | | | | | section of szlelX94-U92, | | | | | | additional composite | | | | | | section of fcpgfO83-D62, | | | | | | additional composite | | | | | | section of tumor | | | | | | A31-A32, composite | | | | | | section of anterior | | | | | | wfqoeZ72, uninvolved | | | | | | skin and soft tissue | | | | | | adjacent to anterior | | | | | | hmwjpW14, uninvolved | | | | | | skin and soft tissue | | | | | | adjacent to posterior | | | | | | gumwlY15, underlying | | | | | | bone with attached soft | | | | | | egmeezE40, navicular and | | | | | | medial cuneiform bones | | | | | | and yispqD49, navicular | | | | | | [...] | + + + + + | [facility] | [address] | [place] [address] | | | PATHOLOGY | [address] | | | + + + + + PROCEDURE NOTE (02/06/2018 2:20 PM PDT) + + + | Narrative | Performed At | + + + | Macie Y Loredo, MD 02/06/2018 2:37 PM PATIENT NAME: Annika | | | Rhea Cage [facility] MR#: [id number] : 1985 Date: 02/06/2018 | | | Attending Surgeon: Macie Loredo MD Icd 9 Coder(s): | | | Jan Giles MD Preoperative [...] | | | unit. Macie Loredo MD [employer] Division of | | | Surgical Oncology Thyroid and Parathyroid Center [facility] | | + + + X-RAY [...] [facility] | [address] | [place], [place] | | | [facility] | [address] | [address] | | | TESTS | | | [...] AM PDT | | | | | [facility] 02/06/18 at 2145, Last dose on | | | | | | | [facility] 02/07/18 at 0545 | | | | [...] | | | | NEEDED, Starting [facility] 02/06/18 at | | | | [...] 11:21 | | | | | Starting [facility] 02/06/18 at 2144, | | PM [...] PDT | | | | | dose, [place] 02/09/18 at 1345 | | | | | | + +-------+ +------+---+---+ +---+---+ | | | +---+---+ documented in this encounter
--- OUTSIDE RECORDS SUMMARY | ~2019-01-30 | XMS | Encounter Summary ---
Demographics + + + | Address | [address] | | | [place] [address] | + + + | Home Phone [...] Providers + +------+ + | Care Health Informatics Advisor Name | Role | Phone | + +------+ + | Santo Gooden MD | PCP | | + +------+ + Encounter Details +--------+ + + + + | Date | Type | Department | Care Team | Description | +--------+ + + + + | 02/05/ | Pharmacy | [facility] | | | | 2018 | Visit | [facility] | | | | | | [address] | | | | | | [place], [place] | | | | | | [address] | | | | | | [phone] | | | +--------+ + + + [...] [place] | | | | | | [address] | | | | | | [phone] | | | | | | | | +--------+ + + + + | 03/25/ | Office | Orthopedics | Lynda Basurto, | | | 2018 | Visit | | [address] | | | | | | [address] | | | | | | [place], [place] | | | | | | [address] | | | | | | [phone] | | | | | | | | +--------+ + + + + | 03/25/ | Office | Hematology & | Sandra Patel MD | | | 2018 | Visit | Oncology | [address] | | | | | | [place], [place] | | | | | | [address] | | | | | | [phone] | | | | | | | | +--------+ + + + + documented as of this encounter Visit Diagnoses Not on filedocumented in this encounter"
--- OUTSIDE RECORDS SUMMARY | ~2019-01-30 | XMS | Encounter Summary ---
Demographics + + + | Address | [address] | | | [place] [address] | + + + | Home Phone [...] Providers + +------+ + | Care Sales Account Manager Name | Role | Phone | [...] | Floor [address] | [facility] | | | | | [facility] | [place], [place] | | | | | Mailcode: L457 | [address] | | | | | Physicians Katie | [phone] | | | | | [place], [place] | | | | | | [address] | | | | | | [phone] | | | +--------+ + + + [...] | | | 2018 | | | [address] | | | | | | [place], [place] | | | | | | [address] | | | | | | [phone] | | | | | | | | +--------+ + + + + | 03/25/ | Office | Orthopedics | Lynda Basurto, | | | 2019 | Visit | | [address] | | | | | | [address] | | | | | | [place], [place] | | | | | | [address] | | | | | | [phone] | | | | | | | | +--------+ + + + + | 03/25/ | Office | Hematology & | Sandra Patel MD | | | 2019 | Visit | Oncology | [address] | | | | | | [place] | | | | | | [address] | | | | | | [phone] | | | | | | | | +--------+ + + + + documented as of this encounter Visit Diagnoses Not on filedocumented in this encounter"
--- OUTSIDE RECORDS SUMMARY | ~2019-01-30 | XMS | Encounter Summary ---
Demographics + + + | Address | [address] | | | [place] [address] | + + + | Home Phone [...] Team Providers + +------+ + | Care Collar Folder Operator Name | Role | Phone | [...] | 2018 | | [facility] [place] | [address] | Results Abnormal | | | | for Health & Healing | [place], [place] | | | | | [address] | [address] | | | | | Mailcode: [place] | [phone] | | | | | for Health and | | | | | | [address] | | | | | | [facility] [place] | | | | | | [address] | | | | | | [phone] | | | +--------+ + + + [...] | | | 2019 | | | [address] | | | | | | [place], [place] | | | | | | [address] | | | | | | [phone] | | | | | | | | +--------+ + + + + | 03/25/ | Office | Orthopedics | Rosy BasurtoAlexander, | | | 2018 | Visit | | [address] | | | | | | [address] | | | | | | [place], [place] | | | | | | [address] | | | | | | [phone] | | | | | | | | +--------+ + + + + | 03/25/ | Office | Hematology & | Sandra Patel MD | | | 2018 | Visit | Oncology | [address] | | | | | | [place], [place] | | | | | | [address] | | | | | | [phone] | | | | | | | | +--------+ + + + + documented as of this encounter Visit Diagnoses + + | Diagnosis | + + | 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
--- OUTSIDE RECORDS SUMMARY | ~2019-01-30 | XMS | Encounter Summary ---
Demographics + + + | Address | [address] | | | [place] [address] | + + + | Home Phone [...] Team Providers + +------+ + | Care Hatch Tender Name | Role | Phone | [...] Nascimento | | | | | | [facility] | | | | | | [place], [place] | | | | | | [address] | | | +--------+ + + + [...] | | | | | | [place] | | | | | | [address] | | | | | | [phone] | | | | | | | | +--------+ + + + + | 03/25/ | Office | Orthopedics | Lynda Basurto, | | | 2018 | Visit | | [address] | | | | | | [address] | | | | | | [place] | | | | | | [address] | | | | | | [phone] | | | | | | | | +--------+ + + + + | 03/25/ | Office | Hematology & | Sandra Patel MD | | | 2018 | Visit | Oncology | [address] | | | | | | [place] | | | | | | [address] | | | | | | [phone] | | | | | | | | +--------+ + + + + documented as of this encounter Visit Diagnoses Not on filedocumented in this encounter"
--- OUTSIDE RECORDS SUMMARY | ~2019-01-30 | XMS | Encounter Summary ---
Demographics + + + | Address | [address] | | | [place] [address] | + + + | Home Phone [...] Team Providers + +------+ + | Care [place]. Representative Name | Role | Phone | [...] Diseases at [facility] 3rd | RN [address] [facility] | | | | | Floor [address] | [facility] | | | | | [facility] | [place], [place] | | | | | Mailcode: L457 | [address] | | | | | Physicians Katie | [phone] | | | | | [place], [place] | | | | | | [address] | | | | | | [phone] | | | +--------+ + + + [...] | | | 2018 | | | [address] | | | | | | [place], [place] | | | | | | [address] | | | | | | [phone] | | | | | | | | +--------+ + + + + | 03/25/ | Office | Orthopedics | Lynda Basurto, | | | 2019 | Visit | | [address] | | | | | | [address] | | | | | | [place], [place] | | | | | | [address] | | | | | | [phone] | | | | | | | | +--------+ + + + + | 03/25/ | Office | Hematology & | Sandra Patel MD | | | 2019 | Visit | Oncology | [address] | | | | | | [place] | | | | | | [address] | | | | | | [phone] | | | | | | | | +--------+ + + + + documented as of this encounter Visit Diagnoses Not on filedocumented in this encounter"
--- OUTSIDE RECORDS SUMMARY | ~2019-01-30 | XMS | Encounter Summary ---
Demographics + + + | Address | [address] | | | [place] [address] | + + + | Home Phone [...] Team Providers + +------+ + | Care Nursery Teacher Name | Role | Phone | [...] | | | Synovial | Lynda, | [facility] 6163 | | | | | sarcoma | [address] | [address] | | | | | ([facility]) | Federico Nascimento | Mailcode: | | | | | Procedures | Sarahy Conner | [facility] | | | | | CT CHEST WO | [facility] [place] | for Health | | | | | [place] | [address] | and Healing, | | | | | CT | Phone: | 3rd Floor | | | | | SCAN,THORAX, | [phone] | [place], [place] | | | | | W/O [place]AST | Fax: | [address] | | | | | | [phone] | Phone: | | | | | | | [phone] | | | | | | | Fax: | | | | | | | [phone] | +--------+--------+ + + + + Encounter Details +--------+---------+ + + + | Date | Type | Department | Care Team | Description | +--------+---------+ + + + | 05/14/ | Office | [facility] | Lynda Basurto, | 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 | & Rehabilitation at | [address] | ([facility]) (Primary Dx) | | | | [facility] | [facility] | | | | | Ave Mailcode: | [place], [place] | | | | | [place] for [facility] | [address] | | | | | and Healing, | [phone] | | | | | Building 2 | | | | | | [place], [place] | | | | | | [address] | | | | | | [phone] | | | +--------+---------+ + + + [...] done with IV abx. 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 She was respon sible for cleaning their home, weeding the yard, and shopping. 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 [place] | | | | | | [address] | | | | | | [phone] | | | | | | | | +--------+ + + + + | 03/25/ | Office | Hematology & | Sandra Patel MD | | | 2018 | Visit | Oncology | [address] | | | | | | [place], [place] | | | | | | [address] | | | | | | [phone] | | | | | | | [...] Note | + + | Service Account, [email or web address] Res In Interface - 08/06/2018 1:07 PM [...]
--- OUTSIDE RECORDS SUMMARY | ~2019-01-30 | XMS | Clinical Summary ---
Demographics + + + | Address | [address] | | | [place] [address] | + + + | Home Phone | | + + + | Preferred Language | Unknown | + + + | Marital Status | Unknown | + + + | Tenriism Affiliation | Unknown | + + + | Race | Unknown | + + + | Ethnic Group | Unknown | + + + Author + + + | Author | [facility] | + + + | Organization | [facility] | + + + | Address | Unknown | + + + | Phone | Unavailable | + + + Support + + + + + | Name | Relationship | Address | Phone | + + + + + | Kika Fox | ECON | [address] [facility] [address] | | | | | [place] [address] | | + + + + + Care Team Providers + +------+ + | Care Shrimp Peeling Machine Tender Name | Role | Phone | [...] +------+-------+ + | PREMERA | PREMER | [id number] | | | [address] [address] | | | A BLUE | | | | [place] | | | [place]OSS | | | | [address] | | | FED | | | | | | | PPO | | | | | + +--------+ +------+-------+ + | [facility] | YELLOW | [id number] | | | | | PLANS | [...] | Self | [birth year] | Home: | [address] | | | enrique/Lopez | | 1984 | [phone] | [place] [address] | | | emerita | | | [phone] | | + +--------+ +--------+ + +
--- OUTSIDE RECORDS SUMMARY | ~2019-01-30 | XMS | Encounter Summary ---
Demographics + + + | Address | [address] | | | [place] [address] | + + + | Home Phone [...] Team Providers + +------+ + | Care Document Analyst Name | Role | Phone | [...] | 2018 | on | Oncology at [place] | | | | | | for Health & Healing | | | | | | [address] | | | | | | Mailcode: [place] | | | | | | [facility] and | | | | | | [facility] 2 | | | | | | [place], [place] | | | | | | [address] | | | | | | [phone] | | | +--------+ + + + [...] Scott | | | | | | [place], [place] | | | | | | [address] | | | | | | [phone] | | | | | | | | +--------+ + + + + | 03/25/ | Office | Orthopedics | Rosy BasurtoRegiotto, | | | 2018 | Visit | | [address] | | | | | | [address] | | | | | | [facility] [place] | | | | | | [address] | | | | | | [phone] | | | | | | | | +--------+ + + + + | 03/25/ | Office | Hematology & | Sandra Patel MD | | | 2018 | Visit | Oncology | [address] | | | | | | [place], [place] | | | | | | [address] | | | | | | [phone] | | | | | | | | +--------+ + + + + documented as of this encounter Visit Diagnoses Not on filedocumented in this encounter"
--- OUTSIDE RECORDS SUMMARY | ~2019-01-30 | XMS | Encounter Summary ---
Demographics + + + | Address | [address] | | | [place] [address] | + + + | Home Phone [...] Team Providers + +------+ + | Care Staff Forester Name | Role | Phone | + [...] | | 2018 | | Oncology at [facility] | [address] | therapy (Nutrition | | | | [address] | [address] [facility] | Referral) | | | | Mailcode: Delio | [place]do [place], [place] | | | | | [facility] and | [address] | | | | | [facility] 2 | [phone] | | | | | [place], [place] | | | | | | [address] | | | | | | [phone] | | | +--------+ + + + [...] | | | 2018 | | | [address] | | | | | | [place], [place] | | | | | | [address] | | | | | | [phone] | | | | | | | | +--------+ + + + + | 03/25/ | Office | Orthopedics | Lynda Basurto, | | | 2018 | Visit | Minerva DIAS [address] | | | | | | [address] | | | | | | [place], [place] | | | | | | [address] | | | | | | [phone] | | | | | | | | +--------+ + + + + | 03/25/ | Office | Hematology & | Sandra Patel MD | | | 2019 | Visit | Oncology | [address] | | | | | | [place] | | | | | | [address] | | | | | | [phone] | | | | | | | | +--------+ + + + + documented as of this encounter Visit Diagnoses Not on filedocumented in this encounter"
--- OUTSIDE RECORDS SUMMARY | ~2019-01-30 | XMS | Encounter Summary ---
Demographics + + + | Address | [address] | | | [place] [address] | + + + | Home Phone [...] Team Providers + +------+ + | Care Bisque Finisher Name | Role | Phone | [...] | 2018 | on | Oncology at [place] | | | | | | for Health & Healing | | | | | | [address] | | | | | | Mailcode: [place] | | | | | | [facility] and | | | | | | [facility] 2 | | | | | | [place], [place] | | | | | | [address] | | | | | | [phone] | | | +--------+ + + + [...] Scott | | | | | | [place], [place] | | | | | | [address] | | | | | | [phone] | | | | | | | | +--------+ + + + + | 03/25/ | Office | Orthopedics | Lynda Basurto, | | | 2018 | Visit | | [address] | | | | | | [address] | | | | | | [place], [place] | | | | | | [address] | | | | | | [phone] | | | | | | | | +--------+ + + + + | 03/25/ | Office | Hematology & | Sandra Patel MD | | | 2019 | Visit | Oncology | [address] | | | | | | [place] | | | | | | [address] | | | | | | [phone] | | | | | | | | +--------+ + + + + documented as of this encounter Visit Diagnoses Not on filedocumented in this encounter"
--- OUTSIDE RECORDS SUMMARY | ~2019-01-30 | XMS | Encounter Summary ---
Demographics + + + | Address | [address] | | | [place] [address] | + + + | Home Phone [...] Providers + +------+ + | Care Nuclear Spectroscopist Name | Role | Phone | + [...] at [facility] 3rd | RN [address] | Infectious disease | | | | Floor [address] | [facility] | | | | | [facility] | [place], [place] | | | | | Mailcode: L457 | [address] | | | | | Physicians Katie | [phone] | | | | | [place], [place] | | | | | | [address] | | | | | | [phone] | | | +--------+ + + + [...] | | | 2019 | | | [address] | | | | | | [place], [place] | | | | | | [address] | | | | | | [phone] | | | | | | | | +--------+ + + + + | 03/25/ | Office | Orthopedics | Lynda Basurto, | | | 2018 | Visit | | [address] | | | | | | [address] | | | | | | [place], [place] | | | | | | [address] | | | | | | [phone] | | | | | | | | +--------+ + + + + | 03/25/ | Office | Hematology & | Sandra Patel MD | | | 2018 | Visit | Oncology | [address] | | | | | | [place], [place] | | | | | | [address] | | | | | | [phone] | | | | | | | | +--------+ + + + + documented as of this encounter Visit Diagnoses Not on filedocumented in this encounter"
--- OUTSIDE RECORDS SUMMARY | ~2019-01-30 | XMS | Encounter Summary ---
Demographics + + + | Address | [address] | | | [place] [address] | + + + | Home Phone [...] Team Providers + +------+ + | Care Global Account Manager Name | Role | Phone [...] | | 2018 | | Oncology at [place] | | | | | | for Health & Healing | | | | | | [address] | | | | | | Mailcode: [place] | | | | | | for Health and | | | | | | [facility] 2 | | | | | | [place], [place] | | | | | | [address] | | | | | | [phone] | | | +--------+ + + + [...] Scott | | | | | | [place], [place] | | | | | | [address] | | | | | | [phone] | | | | | | | | +--------+ + + + + | 03/25/ | Office | Orthopedics | Paul Basurtoen, | | | 2018 | Visit | | [address] | | | | | | [address] | | | | | | [place], [place] | | | | | | [address] | | | | | | [phone] | | | | | | | | +--------+ + + + + | 03/25/ | Office | Hematology & | Sandra Patel MD | | | 2018 | Visit | Oncology | [address] | | | | | | [place], [place] | | | | | | [address] | | | | | | [phone] | | | | | | | | +--------+ + + + + documented as of this encounter Visit Diagnoses Not on filedocumented in this encounter"
--- OUTSIDE RECORDS SUMMARY | ~2019-01-30 | XMS | Encounter Summary ---
Demographics + + + | Address | [address] | | | [place] [address] | + + + | Home Phone [...] Team Providers + +------+ + | Care Latin American Studies Director Name | Role | Phone | [...] | | | | | [facility] | | | | | | [place], [place] | | | | | | [address] | | | +--------+ + + + [...] Scott | | | | | | [place] | | | | | | [address] | | | | | | [phone] | | | | | | | | +--------+ + + + + | 03/25/ | Office | Orthopedics | Lynda Basurto, | | | 2018 | Visit | | [address] | | | | | | [address] | | | | | | [place] | | | | | | [address] | | | | | | [phone] | | | | | | | | +--------+ + + + + | 03/25/ | Office | Hematology & | Sandra Patel MD | | | 2018 | Visit | Oncology | [address] | | | | | | [place] | | | | | | [address] | | | | | | [phone] | | | | | | | | +--------+ + + + + documented as of this encounter Visit Diagnoses Not on filedocumented in this encounter"
--- OUTSIDE RECORDS SUMMARY | ~2019-01-30 | XMS | Encounter Summary ---
Demographics + + + | Address | [address] | | | [place] [address] | + + + | Home Phone [...] Providers + +------+ + | Care Medical Management Specialist Name | Role | Phone [...] | 2018 | Visit | Oncology at [place] | AGACNP,EVENT STAFF [address] | (HCC) (Primary Dx) | | | | for Health & Healing | [address] | | | | | [address] | [place], [place] | | | | | Mailcode: [place] | [address] | | | | | for Health and | [phone] | | | | | [place] [address] | | | | | | [place], [place] | | | | | | [address] | | | | | | [phone] | | | +--------+---------+ + + + [...] or concerns please call: During Clinic hours: [phone] Evenings, weekends and Holidays: [phone], ask for the Oncologist on-call Please contact [...] Name: Tati Cage : 1985 Home Town: [place], [place] Referring Physician: Sb Diagnosis: high risk [...] Take 25 mg by mouth once daily. Hblbwthcb-Kcebsyzqh-Hx-Mag-Sim [id number] mg/30 mL mucous membrane mouthwash, Take 5 [...] needed for anxiety (2nd line for nausea/vomiting). [facility], Bedside commode for nighttime use following foot [...] left BKA. Stump with c/d/I dressing. Dr. Chaviar is seeing pt today to assess and possibly remove sutures, please see her note dated same day, 03/12. Remaining extr emities warm, well perfused. Neurologic - A&O x 3. evp of products & co founder grossly intact. Affect/Psych - Appropriate mood and [...] Keera. ROME ADHIKARI FNP HEMATOLOGY/MEDICAL ONCOLOGY AT [facility] [address] Mailcode: [place] [address] documented in this encounter Plan of Treatment +--------+ + + + + | Date | Type | Specialty | Care Team | Description | +--------+ + + + + | 03/25/ | Appointment | Radiology | Sandra Patel MD | | | 2018 | | | [address] | | | | | | [place], [place] | | | | | | [address] | | | | | | [phone] | | | | | | | | +--------+ + + + + | 03/25/ | Office | Orthopedics | Lynda Basurto, | | | 2019 | Visit | | [address] | | | | | | [address] | | | | | | [place], [place] | | | | | | [address] | | | | | | [phone] | | | | | | | | +--------+ + + + + | 03/25/ | Office | Hematology & | Sandra Patel MD | | | 2019 | Visit | Oncology | [address] | | | | | | [place], [place] | | | | | | [address] | | | | | | [phone] | | | | | | | | +--------+ + + + + documented as of this encounter Visit Diagnoses + + | Diagnosis | + + | 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
--- OUTSIDE RECORDS SUMMARY | ~2019-01-30 | XMS | Encounter Summary ---
Demographics + + + | Address | [address] | | | [place] [address] | + + + | Home Phone [...] Team Providers + +------+ + | Care Molded Rubber Goods Cutter Name | Role | Phone | + +------+ + | Santo Gooden MD | PCP | | + +------+ + Encounter Details +--------+ + + + + | Date | Type | Department | Care Team | Description | +--------+ + + + + | 06/13/ | MyChart | Hematology/Medical | Sandra Patel MD | RE: Flu Shot | | 2018 | Encounter | Oncology at [place] | [address] | Reminder | | | | for Health & Healing | [place], [place] | | | | | [address] | [address] | | | | | Mailcode: [place] | [phone] | | | | | [facility] | | | | | | and Healing, | | | | | | Floor [place], [place] | | | | | | [address] | | | | | | [phone] | | | +--------+ + + + [...] Scott | | | | | | [place], [place] | | | | | | [address] | | | | | | [phone] | | | | | | | | +--------+ + + + + | 03/25/ | Office | Orthopedics | Lynda Basurto, | | | 2018 | Visit | | [address] | | | | | | [address] | | | | | | [facility] [place] | | | | | | [address] | | | | | | [phone] | | | | | | | | +--------+ + + + + | 03/25/ | Office | Hematology & | Sandra Patel MD | | | 2019 | Visit | Oncology | [address] | | | | | | [place] | | | | | | [address] | | | | | | [phone] | | | | | | | | +--------+ + + + + documented as of this encounter Visit Diagnoses Not on filedocumented in this encounter"
--- OUTSIDE RECORDS SUMMARY | ~2019-01-30 | XMS | Encounter Summary ---
Demographics + + + | Address | [address] | | | [place] [address] | + + + | Home Phone [...] Team Providers + +------+ + | Care Rotary Cutter Operator Name | Role | Phone [...] | | | (HCC) | Ave | [facility] | | | | | Procedures | [place], [place] | Road | | | | | [place] | [address] | Mailcode: | | | | | [place] | Phone: | [address] [facility] | | | | | CT | [phone] | [facility] | | | | | SCAN,THORAX, | Fax: | [place], [place] | | | | | [place] | [phone] | [address] | | | | | | | Phone: | | | | | | | [phone] | | | | | | | Fax: | | | | | | | [phone] | +--------+--------+ + + + + Reason [...] | | 2018 | | Oncology at [facility] | [address] | | | | | for Health & Healing | [place], [place] | | | | | [address] | [address] | | | | | Mailcode: [facility] | [phone] | | | | | for Health and | | | | | | Healing, Building 2 | | | | | | [place], [place] | | | | | | [address] | | | | | | [phone] | | | +--------+ + + + [...] | | | 2018 | | | [address] | | | | | | [place], [place] | | | | | | [address] | | | | | | [phone] | | | | | | | | +--------+ + + + + | 03/25/ | Office | Orthopedics | Lynda Basurto, | | | 2019 | Visit | | [address] | | | | | | [address] | | | | | | [place], [place] | | | | | | [address] | | | | | | [phone] | | | | | | | | +--------+ + + + + | 03/25/ | Office | Hematology & | Sandra Patel MD | | | 2019 | Visit | Oncology | [address] | | | | | | [facility] [place] | | | | | | [address] | | | | | | [phone] | | | | | | | [...]
--- OUTSIDE RECORDS SUMMARY | ~2019-01-30 | XMS | Encounter Summary ---
Demographics + + + | Address | [address] | | | [place] [address] | + + + | Home Phone [...] Team Providers + +------+ + | Care Banner Painter Name | Role | Phone | + [...] | | | | | [facility] | | | | | | [place], [place] | | | | | | [address] | | | +--------+ + + + [...] Scott | | | | | | [place] | | | | | | [address] | | | | | | [phone] | | | | | | | | +--------+ + + + + | 03/25/ | Office | Orthopedics | Lynda Basurto, | | | 2018 | Visit | | [address] | | | | | | [address] | | | | | | [place] | | | | | | [address] | | | | | | [phone] | | | | | | | | +--------+ + + + + | 03/25/ | Office | Hematology & | Sandra Patel MD | | | 2018 | Visit | Oncology | [address] | | | | | | [place] | | | | | | [address] | | | | | | [phone] | | | | | | | | +--------+ + + + + documented as of this encounter Visit Diagnoses Not on filedocumented in this encounter"
--- OUTSIDE RECORDS SUMMARY | ~2019-01-30 | XMS | Encounter Summary ---
Demographics + + + | Address | [address] | | | [place] [address] | + + + | Home Phone [...] Providers + +------+ + | Care Angle Bender Name | Role | Phone | [...] + + | 02/19/ | Hospital | [facility] [address] | Leighann Yost MD | | | 2018 - | Encounter | [facility] | [address] [facility] | | | | | Road Mailcode: | [facility] [address] | | | 02/23/ | | [address] | [place], [place] | | | 2018 | | [place], | [address] | | | | | [place] [address] | [phone] | | | | | [phone] | | | +--------+ + + + [...] Sky MD - 02/23/2018 1:06 PM PDT [facility] [place] Discharge Summary Discharging Provider: ROMEO SKY MD [...] @ 845am, labs and port care @ [facility] on 02/28/18, pt should make apt when she is in for neulasta. Sent request to venessa to arrange for fu @ [facility] for C2, the y will contact pt. [...] as directed for port access. [facility] regarding any questions/concerns or further dosing [...] as well as seasonal all ergies. Available vwxt-fnr-icfvbbm. Regarding pain related to growth factor administration [...] agent. Apply as previously prescribed. Please contact [facility] physician regarding any questions/concerns or further dosing [...] in chilled liquid. Over-the -counter. Alternatively consider vxyz-dff-zrbdcif sennosides (Senna) or bisacodyl tablets by mouth [...] AM/4 in PM). Soft, daily BM desired. Mdfj-kea-vgequbs. Also consider over-the-co unter bisacodyl tablets and/or [...] on weekends call paging ope rator at [phone] ask for requisition approver doctor for Heme-Onc if you have any [...] AM HEM NURSE TAWANDA Hematology/Medical Oncology at [facility] [phone] [facility] 03/12/2018 9:30 AM Annie Gannon Hematology/Medical Oncology at [facility] [phone] HemOnc Discharge Physical Exam: Last 24 hour [...] 46.56 kg/m. General: adult female patient in [facility] Neuro: AOx3, Psych: pleasant, affect appropiate Skin: No rashes HEENT:oropharynx mucous membrane moist without lesions Chest: Clear to ascultation b/l; no wheezing, crackles CV: Regular rhythm rate, no murmur Abd: Normoactive bowel sounds, soft/Nontender/Nondistended , no hepatosplenomegaly, no ma sses Ext: no edema Lines: PAC accessed - NT, no erythema ROMEO SKY MD Hem/Onc Fellow [id number] Associated attestation - Greg Campos MD - [...] thorough, accurate, and detailed discharge summary including [facility] randallia GREG CAMPOS MD [address] [facility] Mailcode: [address] [place] [address] documented in this encounter Medications at Time [...] documented as of this encounter Progress Notes Hayde Flores MD - 02/23/2018 8:30 AM PDT [...] scheduled. HAYDE FLORES MD Orthopaedics PGY-3 Pager: [phone] aSho joshua MD - 02/23/2018 8:17 AM [...] to venessa to arrange for fu @ [facility] for C2, the y will contact pt. [...] described above. ROMEO SKY MD Hem/Onc Fellow [id number] Associated attestation - Greg Campos MD - [...] in today's progress note. GREG CAMPOS MD [facility] 13K [address] [facility] Mailcode: [address] [place] [address] Camryn Flynn PA-C - 02/21/2018 7:14 AM [...] for her mom who is her primary health care marketing specialist. ROS: Remainder of complete 10 points review [...] 2008.34 ml General: adult female patient in [facility] Neuro: AOx3, Psych: pleasant, affect appropiate [...] to venessa to arrange for fu @ [facility] for C2, the y will contact pt. [...] Full CAMRYN FLYNN PA-C Medical Oncology/Hematology pager #[phone] Associated attestation - Leighann Yost MD - [...] | | | 2018 | | | [address] | | | | | | [place], [place] | | | | | | [address] | | | | | | [phone] | | | | | | | | +--------+ + + + + | 03/25/ | Office | Orthopedics | Lynda Basurto, | | | 2018 | Visit | | [address] | | | | | | [address] | | | | | | [place], [place] | | | | | | [address] | | | | | | [phone] | | | | | | | | +--------+ + + + + | 03/25/ | Office | Hematology & | Sandra Patel MD | | | 2019 | Visit | Oncology | [address] | | | | | | [place], [place] | | | | | | [address] | | | | | | [phone] | | | | | | | [...] [facility] | [address] | [place] [address] | | | SERVICES, CORE | PARK [...] [facility] | [address] | [place] [address] | | | SERVICES, CORE | PARK [...] + + + + + | [facility] | [address] | [place] [address] | | | SERVICES, CORE | ARMANDO [...] + + | LUIS MURPHYT OF | [address] | [place], [place] | | | CARDIOLOGY | [address] | [address] | | + + + + + [...]
--- OUTSIDE RECORDS SUMMARY | ~2019-01-30 | XMS | Encounter Summary ---
Demographics + + + | Address | [address] | | | [place] [address] | + + + | Home Phone [...] Team Providers + +------+ + | Care Transcribing Machine Operator Name | Role | Phone [...] | | | | of | | [address] | | | | | amputation | | [address] | | | | | stump, | | Rd [place], | | | | | unspecified | | [place] | | | | | extremity | | [address] | | | | | Osteomyeliti | | Phone: | | | | | s, | | [phone] | | | | | unspecified | | Fax: | | | | | | | [phone] | +--------+--------+ + + + + Encounter Details +--------+---------+ + + + | Date | Type | Department | Care Team | Description | +--------+---------+ + + + | 05/14/ | Office | Hematology/Medical | Angely Stephen, | Osteomyelitis of | | 2018 | Visit | Oncology at [facility] | [address] | left leg (HCC) | | | | [address] | [address] | (Primary Dx); E. | | | | Mailcode: Center | [place], [place] | coli infection; | | | | for Health and | [address] | Synovial sarcoma | | | | Healing, Building [address] | [phone] | (HCC); longterm | | | | [place], [place] | | (current) use of | | | | [address] | | antibiotics | | | | [phone] | | | +--------+---------+ + + + [...] fever without clear etiology 4. Encounter for oil heaterman use of antibiotics Pt has now completed [...] needed. Angely Stephen MD HEMATOLOGY/MEDICAL ONCOLOGY AT [facility] 7TH FLOOR [address] [facility] [place] [address] I spent 30 minutes with the [...] | | | 2018 | | | [address] | | | | | | [place], [place] | | | | | | [address] | | | | | | [phone] | | | | | | | | +--------+ + + + + | 03/25/ | Office | Orthopedics | Lynda Basurto, | | | 2018 | Visit | | [address] | | | | | | [address] | | | | | | [place], [place] | | | | | | [address] | | | | | | [phone] | | | | | | | | +--------+ + + + + | 03/25/ | Office | Hematology & | Sandra Patel MD | | | 2019 | Visit | Oncology | [address] | | | | | | [place], [place] | | | | | | [address] | | | | | | [phone] | | | | | | | [...] | | unspecified | + + | longterm (current) use of antibiotics | + + documented in this encounter"
--- OUTSIDE RECORDS SUMMARY | ~2019-01-30 | XMS | Encounter Summary ---
Demographics + + + | Address | [address] | | | [place] [address] | + + + | Home Phone [...] Team Providers + +------+ + | Care Linux Administrator Name | Role | Phone | [...] | | 2018 | | Oncology at [place] | [address] | | | | | for Health & Healing | [place], [place] | | | | | [address] | [address] | | | | | Mailcode: [place] | [phone] | | | | | for Health and | | | | | | [facility] 2 | | | | | | [place], [place] | | | | | | [address] | | | | | | [phone] | | | +--------+ + + + [...] | Sandra Paetl MD | | | 2019 | | | [address] | | | | | | [place], [place] | | | | | | [address] | | | | | | [phone] | | | | | | | | +--------+ + + + + | 03/25/ | Office | Orthopedics | Rosy BasurtoMacarioLori, | | | 2018 | Visit | | [address] | | | | | | [address] | | | | | | [facility] [place] | | | | | | [address] | | | | | | [phone] | | | | | | | | +--------+ + + + + | 03/25/ | Office | Hematology & | Sandra Patel MD | | | 2018 | Visit | Oncology | [address] | | | | | | [place], [place] | | | | | | [address] | | | | | | [phone] | | | | | | | | +--------+ + + + + documented as of this encounter Visit Diagnoses Not on filedocumented in this encounter"
--- OUTSIDE RECORDS SUMMARY | ~2019-01-30 | XMS | Encounter Summary ---
Demographics + + + | Address | [address] | | | [place] [address] | + + + | Home Phone [...] Team Providers + +------+ + | Care Program Management Specialist Name | Role | Phone [...] | 2018 | Encounter | Oncology at [place] | [address] | Reminder | | | | for Health & Healing | [place], [place] | | | | | [address] | [address] | | | | | Mailcode: [place] | [phone] | | | | | [facility] | | | | | | and Healing, | | | | | | Floor [place], [place] | | | | | | [address] | | | | | | [phone] | | | +--------+ + + + [...] [place] | | | | | | [address] | | | | | | [phone] | | | | | | | | +--------+ + + + + | 03/25/ | Office | Orthopedics | Lynda Basurto, | | | 2018 | Visit | | [address] | | | | | | [address] | | | | | | [facility] [place] | | | | | | [address] | | | | | | [phone] | | | | | | | | +--------+ + + + + | 03/25/ | Office | Hematology & | Sandra Patel MD | | | 2019 | Visit | Oncology | [address] | | | | | | [place] | | | | | | [address] | | | | | | [phone] | | | | | | | | +--------+ + + + + documented as of this encounter Visit Diagnoses Not on filedocumented in this encounter"
--- OUTSIDE RECORDS SUMMARY | ~2019-01-30 | XMS | Encounter Summary ---
Demographics + + + | Address | [address] | | | [place] [address] | + + + | Home Phone [...] Providers + +------+ + | Care Cable Splicer Name | Role | Phone | + [...] | 02/19/ | Office | Hematology/Medical | Sadnra Patel MD | 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 | Oncology at [place] | [address] | (HCC) (Primary Dx) | | | | for Health & Healing | [place], [place] | | | | | [address] | [address] | | | | | Mailcode: CH7[facility] | [phone] | | | | | [facility] | | | | | | and Healing, | | | | | | [place], [place] | | | | | | [address] | | | | | | [phone] | | | +--------+---------+ + + + [...] Name: Tati Cage : 1985 Home Town: [place], [place] Referring Physician: Sb Diagnosis: high risk [...] perfused. No edema. Neurologic - Awake, alert. pearler grossly intact. Affect/Psych - Appropriate. ECOG - [...] risk. Wesley l monitor. Sandra Patel MD Nurse Intern Medical Oncology & Pediatric Hematology/Oncology [facility] [place] [facility] documented in this enco unter Plan of Treatment +--------+ + + + + | Date | Type | Specialty | Care Team | Description | +--------+ + + + + | 03/25/ | Appointment | Radiology | Sandra Patel MD | | | 2018 | | | [address] | | | | | | [place], [place] | | | | | | [address] | | | | | | [phone] | | | | | | | | +--------+ + + + + | 03/25/ | Office | Orthopedics | Lynda Basurto, | | | 2018 | Visit | | [address] | | | | | | [address] | | | | | | [place], [place] | | | | | | [address] | | | | | | [phone] | | | | | | | | +--------+ + + + + | 03/25/ | Office | Hematology & | Sandra Patel MD | | | 2018 | Visit | Oncology | [address] | | | | | | [place], [place] | | | | | | [address] | | | | | | [phone] | | | | | | | | +--------+ + + + + documented as of this encounter Visit Diagnoses + + | Diagnosis | + + | 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
--- OUTSIDE RECORDS SUMMARY | ~2019-01-30 | XMS | Encounter Summary ---
Demographics + + + | Address | [address] | | | [place] [address] | + + + | Home Phone [...] Providers + +------+ + | Care Corporate Development Intern Name | Role | Phone | [...] | Synovial | Sandra Schmitt MD | [facility] [address] | | | | | sarcoma | [address] | [address] | | | | | ([facility]) | Ave | Mailcode: | | | | | Procedures | [place], [place] | [facility] Center | | | | | [place] | [address] | for Health | | | | | CONTRAST IN | Phone: | and Healing, | | | | | [address] | [phone] | 3rd Floor | | | | | SCAN,THORAX, | Fax: | [place], [place] | | | | | W/O CONTRAST | [phone] | [address] | | | | | | | Phone: | | | | | | | [phone] | | | | | | | Fax: | | | | | | | [phone] | +--------+--------+ + + + + Diagnostic [...] | | | | | Procedures | [place], [place] | [facility] | | | | | [place] | [address] | for Health | | | | | CONTRAST IN | Phone: | and Healing, | | | | | CT | [phone] | 3rd Floor | | | | | SCAN,THORAX, | Fax: | [place], [place] | | | | | W/O CONTRAST | [phone] | [address] | | | | | | | Phone: | | | | | | | [phone] | | | | | | | Fax: | | | | | | | [phone] | +--------+--------+ + + + + Reason [...] [address] | | | | | ([facility]) | Ave | Mailcode: | | | | | Procedures | [place], [place] | [facility] Center | | | | | [place] | [address] | for Health | | | | | CONTRAST IN | Phone: | and Healing, | | | | | [address] | [phone] | 3rd Floor | | | | | SCAN,THORAX, | Fax: | [place], [place] | | | | | W/O CONTRAST | [phone] | [address] | | | | | | | Phone: | | | | | | | [phone] | | | | | | | Fax: | | | | | | | [phone] | +--------+--------+ + + + + Encounter Details +--------+ + + + + | Date | Type | Department | Care Team | Description | +--------+ + + + + | 12/03/ | Hospital | Radiology/Imaging | Sandra Patel MD | | | 2019 | Encounter | Lab at [facility] [address] | [address] | | | | | [address] | [place], [place] | | | | | Mailcode: [facility] | [address] | | | | | [facility] | [phone] | | | | | and [facility] | | | | | | Floor [place], [place] | | | | | | [address] | | | | | | [phone] | | | +--------+ + + + [...] [address] | | | | | | [place], [place] | | | | | | [address] | | | | | | [phone] | | | | | | | | +--------+ + + + + | 03/25/ | Office | Orthopedics | Lynda Basurto, | | | 2018 | Visit | | [address] | | | | | | [address] | | | | | | [place], [place] | | | | | | [address] | | | | | | [phone] | | | | | | | | +--------+ + + + + | 03/25/ | Office | Hematology & | Sandra Patel MD | | | 2019 | Visit | Oncology | [address] | | | | | | [place], [place] | | | | | | [address] | | | | | | [phone] | | | | | | | [...]
--- OUTSIDE RECORDS SUMMARY | ~2019-01-30 | XMS | Encounter Summary ---
Demographics + + + | Address | [address] | | | [place] [address] | + + + | Home Phone [...] Team Providers + +------+ + | Care Crystal Report Developer Name | Role | Phone | [...] | | 2018 | | Oncology at [place] | [address] | | | | | for Health & Healing | [place], [place] | | | | | [address] | [address] | | | | | Mailcode: [place] | [phone] | | | | | for Health and | | | | | | [facility], [facility] | | | | | | [place], [place] | | | | | | [address] | | | | | | [phone] | | | +--------+ + + + [...] | | | | | | [place], [place] | | | | | | [address] | | | | | | [phone] | | | | | | | | +--------+ + + + + | 03/25/ | Office | Orthopedics | Doung, GallegosAlexander, | | | 2018 | Visit | | [address] | | | | | | [address] | | | | | | [place], [place] | | | | | | [address] | | | | | | [phone] | | | | | | | | +--------+ + + + + | 03/25/ | Office | Hematology & | Sandra Patel MD | | | 2018 | Visit | Oncology | [address] | | | | | | [place], [place] | | | | | | [address] | | | | | | [phone] | | | | | | | | +--------+ + + + + documented as of this encounter Visit Diagnoses Not on filedocumented in this encounter"
--- OUTSIDE RECORDS SUMMARY | ~2019-01-30 | XMS | Encounter Summary ---
Demographics + + + | Address | [address] | | | [place] [address] | + + + | Home Phone [...] Team Providers + +------+ + | Care Blender Helper Name | Role | Phone | + +------+ + | Santo Gooden MD | PCP | | + +------+ + Encounter Details +--------+--------+ + + + | Date | Type | Department | Care Team | Description | +--------+--------+ + + + | 05/05/ | Intake | Transfer Center | | N/A | | 2018 | | [address] | | | | | | [place], | | | | | | [place] [address] | | | +--------+--------+ + + + [...] Ave | | | | | | [place], [place] | | | | | | [address] | | | | | | [phone] | | | | | | | | +--------+ + + + + | 03/25/ | Office | Orthopedics | Lynda Basurto, | | | 2018 | Visit | | [address] | | | | | | [address] | | | | | | [place], [place] | | | | | | [address] | | | | | | [phone] | | | | | | | | +--------+ + + + + | 03/25/ | Office | Hematology & | Sandra Patel MD | | | 2018 | Visit | Oncology | [address] | | | | | | [place], [place] | | | | | | [address] | | | | | | [phone] | | | | | | | | +--------+ + + + + documented as of this encounter Visit Diagnoses Not on filedocumented in this encounter"
--- OUTSIDE RECORDS SUMMARY | ~2019-01-30 | XMS | Encounter Summary ---
Demographics + + + | Address | [address] | | | [place] [address] | + + + | Home Phone [...] Team Providers + +------+ + | Care Television Mechanic Name | Role | Phone | [...] | 2018 | Visit | Oncology at [place] | AGACNP,MECHANICAL MANUFACTURING ENGINEER [address] | (HCC) (Primary Dx) | | | | for Health & Healing | [address] | | | | | [address] | [place], [place] | | | | | Mailcode: [place] | [address] | | | | | for Health and | [phone] | | | | | [place] [address] | | | | | | [place], [place] | | | | | | [address] | | | | | | [phone] | | | +--------+---------+ + + + [...] encounter Patient Instructions Patient Instructions Annie Gannon AGACNMariela,MECHANICAL MANUFACTURING ENGINEER - 04/24/2018 8:30 AM PDTIf you have any questions or concerns please call: During Clinic hours: [phone] Evenings, weekends and Holidays: [phone], ask for the Oncologist on-call Please contact [...] rash Thank you, Annie Gannon, MSN, ROME-BC, MECHANICAL MANUFACTURING ENGINEER-C Nurse Practitioner Hematology & Medical Oncology documented in this encounter Progress Notes Annie Gannon AGACNP, FNP - 04/24/2018 8:30 AM PDTFormatting of this note might be dif ferent from the original. 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 Her surgical incision is completely closed . She has had no fevers. She was the prosthetic person at [facility] who told her as so on [...] hours. Indications: os teomyelitis Miscellaneous [facility] [place] Bedside commode for nighttime use following foot [...] compression device. Neurologic - A&O x 3. 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 Affect/Psych - Appropriate mood and [...] total - Tati needs a letter to [facility] from Dr. Basurto when pt is released to start using prosthesis and begin PT with it. I will route this note to Dr. Basurto. ROME ADHIKARI FNP HEMATOLOGY/MEDICAL ONCOLOGY AT [place] [id number] Mailcode: [place] [address] documented in this encounter Plan of Treatment +--------+ + + + + | Date | Type | Specialty | Care Team | Description | +--------+ + + + + | 03/25/ | Appointment | Radiology | Sandra Patel MD | | | 2018 | | | [address] | | | | | | [place], [place] | | | | | | [address] | | | | | | [phone] | | | | | | | | +--------+ + + + + | 03/25/ | Office | Orthopedics | Lynda Basurto, | | | 2018 | Visit | | [address] | | | | | | [address] | | | | | | [place], [place] | | | | | | [address] | | | | | | [phone] | | | | | | | | +--------+ + + + + | 03/25/ | Office | Hematology & | Sandra Patel MD | | | 2019 | Visit | Oncology | [address] | | | | | | [place], [place] | | | | | | [address] | | | | | | [phone] | | | | | | | | +--------+ + + + + documented as of this encounter Visit Diagnoses + + | Diagnosis | + + | 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
--- OUTSIDE RECORDS SUMMARY | ~2019-01-30 | XMS | Encounter Summary ---
Demographics + + + | Address | [address] | | | [place] [address] | + + + | Home Phone [...] Providers + +------+ + | Care Wood Window And Door Craftsman Name | Role | Phone | + [...] | 2018 | on | [facility]cology at [place] | PharmD [address] | (Take home | | | | for Health & Healing | [address] | anti-emetics) | | | | [address] | [place], [place] | | | | | Mailcode: [place] | [address] | | | | | for Health and | | | | | | Healing, Building [address] | | | | | | [place], [place] | | | | | | [address] | | | | | | [phone] | | | +--------+ + + + [...] [address] | | | | | | [place], [place] | | | | | | [address] | | | | | | [phone] | | | | | | | | +--------+ + + + + | 03/25/ | Office | Orthopedics | Lynda Basurto, | | | 2018 | Visit | | [address] | | | | | | [address] | | | | | | [place], [place] | | | | | | [address] | | | | | | [phone] | | | | | | | | +--------+ + + + + | 03/25/ | Office | Hematology & | Sandra Patel MD | | | 2018 | Visit | Oncology | [address] | | | | | | [place], [place] | | | | | | [address] | | | | | | [phone] | | | | | | | | +--------+ + + + + documented as of this encounter Visit Diagnoses Not on filedocumented in this encounter"
--- OUTSIDE RECORDS SUMMARY | ~2019-01-30 | XMS | Encounter Summary ---
Demographics + + + | Address | [address] | | | [place] [address] | + + + | Home Phone [...] Team Providers + +------+ + | Care Milk House Worker Name | Role | Phone | [...] Closed | | Orthopedics | Diagnoses | Berkley | Hugo, | | | | | Foot mass, | Santo Rogers MD | Miles Mckeon MD | | | | | left | [facility] | [address] | | | | | Sarcoma | [place] | [facility] | | | | | (HCC) L | Health | Rd | | | | | Foot Mass | Center | [place], [place] | | | | | (Sarcoma) | [address] | [address] | | | | | | [place] | Phone: | | | | | | Way | [phone] | | | | | | [place], | Fax: | | | | | | [place] [address] | [phone] | | | | | | Phone: | | | | | | | [phone] | | | | | | | Fax: | | | | | | | [phone] | | +--------+--------+ + + + + Encounter Details +--------+---------+ + + + | Date | Type | Department | Care Team | Description | +--------+---------+ + + + | 01/15/ | Office | Orthopaedics at | Lynda Basurto, | Mass of left foot | | 2018 | Visit | [facility] [address] | [address] | (Primary Dx) | | | | Ave Mailcode: CH12A | [address] | | | | | [facility] | [place], [place] | | | | | and | [address] | | | | | Floor [place], [place] | [phone] | | | | | [address] | | | | | | [phone] | | | +--------+---------+ + + + [...] Blood Pressure | - | - | | + + + + + | Pulse | - | - | | + + + + + | Temperature | - | - | | + + + + + | Respiratory Rate | - | - | | + + + + + | Oxygen Saturation | - | - | | + + + + + | Inhaled Oxygen | - | - | | | Concentration | | | | + + + + + | Weight | 142 kg (313 lb) | 01/15/2018 10:06 AM | | | | | PDT | | + + + + + | Height | 172.7 cm (5' 8") | 01/15/2018 10:06 AM | | | | | PDT | | + + + + + | Body Mass Index | 47.59 | 01/15/2018 10:06 AM | | | | | PDT | | + + + + + documented in this encounter Progress Notes Lynda Basurto MD - 01/15/2018 10:15 AM PDTFormatting of this note might be different fr om the original. Dx: soft tissue mass L [...] putting on certain shoes now. [place]. 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 The patient denies constitutional symptoms, including weight [...] signs are noted as recorded by the Horses Or Mules Teamster. General: Alert, awake, and oriented x3. No [...] need staging studies if th is is malignancy. docu mented in this encounter Plan of Treatment +--------+ + + + + | Date | Type | Specialty | Care Team | Description | +--------+ + + + + | 03/25/ | Appointment | Radiology | Sandra Patel MD | | | 2018 | | | [address] | | | | | | [place], [place] | | | | | | [address] | | | | | | [phone] | | | | | | | | +--------+ + + + + | 03/25/ | Office | Orthopedics | Rosy BasurtoRegiotto, | | | 2018 | Visit | | [address] | | | | | | [address] | | | | | | [place], [place] | | | | | | [address] | | | | | | [phone] | | | | | | | | +--------+ + + + + | 03/25/ | Office | Hematology & | Sandra Patel MD | | | 2018 | Visit | Oncology | [address] | | | | | | [facility] [place] | | | | | | [address] | | | | | | [phone] | | | | | | | | +--------+ + + + + documented as of this encounter Procedures + +--------+ + + + | Procedure Name | Priori | Date/Time | Associated Diagnosis | Comments | | | ty | | | | + +--------+ + + + | FISH, MOLECULAR | Urgent | 01/15/2018 | Mass of left foot | Results for this | | PROBE, FFPE | | 11:45 AM | | procedure are in the | | | | PDT | | results section. | + +--------+ + + + | MORE COMMON | Routin | 01/15/2018 | Mass of left foot | Results for this | | INDIVIDUAL FISH | e | 11:45 AM | | procedure are in the | | PROBES, FFPE | | PDT | | results section. | + +--------+ + + + | SURGICAL PATHOLOGY | Routin | 01/15/2018 | Mass of left foot | Results for this | | | e | 11:45 AM | | procedure are in the | | | | PDT | | results section. 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 FISH was | | | | | ions | performed with the SS18 | | LABORATORIE | | | | probe set, as listed | | S | | | | below. 98% of cells had | | | | | | a [id number] split | | | | | | signal pattern | | | | | | consistent with SS18 | | | | | | rearrangement. | | | | | | (Comment: This | | | | | | interphase FISH study | | | | | | assesses only the | | | | | | probe-specific regions | | | | | | listed below. It is | | | | | | not intended to stand | | | | | | alone, but rather to | | | | | | provide supplemental | | | | | | information to routine | | | | | | cytogenetic studies, | | | | | | clinical assessment and | | | | | | pathological findings.) | | | | | | Preliminary Report Date: | | | | | | FISH: 01/23/2018 verbal | | | | | | to Dr. Sandra Patel by | | | | | | Stephanie Stout Thank you | | | | | | very much for your | | | | | | referral. If you have | | | | | | any questions regarding | | | | | | this report or future | | | | | | cytogenetic testing | | | | | | issues, please feel free | | | | | | to contact us. Reason | | | | | | for Referral: soft | | | | | | tissue mass L | | | | | | foot. concern for | | | | | | possible sarcoma. The | | | | | | clinical interpretation | | | | | | was made by the clinical | | | | | | starch factory laborer. | | | | + + + + + + | CELLS | 100 | | [facility] | | | SCORED | | | DIAGNOSTIC | | | SMITH SS18 | | | | | | (18Q11.2) | | | LABORATORIE | | | BREAK-APART | | | S | | + + + + + + + + | Specimen | + + | Muscle - Slide-Block | + + + + + + + | Performing | Address | City/State/Zipcode | Phone Number | | Organization | | | | + + + + + | [facility] | [address] , | [place] [address] | | | DIAGNOSTIC | [address] | | | | LABORATORIES | | | | + + + + + FISH, MOLECULAR PROBE, FFPE (01/15/2018 11:45 AM PDT) + + + + + + | Component | Value | Ref Range | Performed | Pathologist | | | | | At | Signature | + + + + + + | DISCLAIMER | This test was developed | | [facility] | | | | and its performance | | DIAGNOSTIC | | | | characteristics | | | | | | determined by the [facility] | | LABORATORIE | | | | [facility] | | S | | | | Laboratories. It has | | | | | | not been cleared or | | | | | | approved by the Food and | | | | | | Drug | | | | | | Administration. FDA | | | | | | approval is not required | | | | | | for the clinical use of | | | | | | the test, and therefore | | | | | | validation was done as | | | | | | required under the | | | | | | requirements of the | | | | | | Clinical Laboratory | | | | | | Improvement Act of 1988 | | | | | | (CLIA). The [facility] | | | | | | [facility] | | | | | | Laboratories are fully | | | | | | licensed by the state of | | | | | | [place] under CLIA and | | | | | | are accredited by the | | | | | | [employer] | | | | | | Pathologists | | | | | | (CAP). Laboratory | | | | | | Director: Kemar | | | | | | Fernando Kramer, Ph.D | | | | | | Electronically reviewed | | | | | | and signed by:Justin | | | | | | Aly, PhD, | | | | | | FACMGClinical | | | | | | Fiber Optic Splicer Clinical | | | | | | Molecular | | | | | | Geneticist01/23/2018 at | | | | | | 1:21 PM Reviewed and | | | | | | electronically signed | | | | | | by JAMARI RANGEL, | | | | | | ,FACMG01/23/2018 5:14 | | | | | | PM | | | | + + + + + + + + | Specimen | + + | Muscle - Slide-Block | + + + + + + + | Performing | Address | City/State/Zipcode | Phone Number | | Organization | | | | + + + + + | [facility] | [address] | [place] [address] | | | DIAGNOSTIC | [address] | | | | LABORATORIES | | | | + + + + + SURGICAL PATHOLOGY (01/15/2018 11:45 AM PDT) + + + + + + | Component | Value | Ref Range | Performed | Pathologist | | | | | At | Signature | + + + + + + | Addendum 1 | This addendum is to | | [facility] | Addendum | | | report the results of an | | DEPARTMENT | electronically | | | immunohistochemical | | OF | signed by | | | stain only; it does not | | PATHOLOGY | Ginna L | | | alter the diagnosis. An | | | MD Jorge on | | | immunohistochemical | | | 01/31/2018 at | | | stain for INI-1 was | | | 11:55 AM | | | performed and is intact | | | | | | (normal expression). | | | | + + + + + + | Clinical | The patient is a | | [facility] | | | History | 32-year-old woman with a | | DEPARTMENT | | | | soft tissue mass of the | | OF | | | | left foot. 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 | | | | | | The individual cells | | | | | | have rhabdoid like | | | | | | features with variably | | | | | | prominent nucleoli. | | | | | | Scattered | | | | | | hemangiopericytomatous | | | | | | vessels are present. | | | | | | Mitotic activity is | | | | | | conspicuous (16 mitoses | | | | | | per 10 high-power | | | | | | ochoa). No tumor | | | | | | necrosis is identified. | | | | | | Immunohistochemical | | | | | | stains for | | | | | | pancytokeratin and S100 | | | | | | demonstrate patchy | | | | | | positivity in the tumor | | | | | | cells. The tumor cells | | | | | | are negative for CD99, | | | | | | STAT6, myogenin, GWEN, | | | | | | CD34, desmin, SMA, | | | | | | synaptophysin, SOX-10, | | | | | | GFAP, HMB-45, and p63. | | | | | | The tumor is positive | | | | | | for SS18 rearrangement | | | | | | by FISH, confirming the | | | | | | diagnosis. 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 The | | | | | | tumor is graded | | | | | | according to the FNCLCC | | | | | | system as follows: 3 for | | | | | | differentiation, 2 for | | | | | | mitotic activity, and 0 | | | | | | for tumor necrosis, for | | | | | | a total score of 5/9 | | | | | | (Grade 2).Case seen | | | | | | by:Tommy Kaur MD | | | | | | | | | | | | Pathology | | | | | | ResidentGinna LPiper | | | | | | MD Jorge | | | | | | | | | | | | PathologistMy | | | | | | [...] + + + | Gross | Received fresh is a | | [facility] | | | Description | single specimen in a | | DEPARTMENT | | | | container labeled with | | OF | | | | the patient's name | | PATHOLOGY | | | | (initials KG) and | | | | | | medical record number | | | | | | [id number].A. Foot - left: | | | | | | Received labeled "foot | | | | | | l" are multiple | | | | | | fragmented cores of pink | | | | | | red soft tissue | | | | | | measuring 2.6 x 1.4 x | | | | | | 0.2 cm in aggregate. The | | | | | | specimen is filtered | | | | | | and entirely submitted | | | | | | in cassette A1.(LN) | | | | + + + [...] | | | | | | laboratory | | | | | | testingAnalyte specific | | | | | | reagents are used in | | | | | | many laboratory tests | | | | | | necessary for standard | | | | | | medical care. This test | | | | | | was developed and its | | | | | | performance | | | | | | characteristics | | | | | | determined by [facility] | | | | | | laboratories.It has not | | | | | | been cleared or approved | | | | | | by the US Food and Drug | | | | | | Administration (FDA). | | | | | | FDA does not require | | | | | | this test to go through | | | | | | premarket FDA review. | | | | | | This test is used for | | | | | | clinical purposes.It | | | | | | should not be regarded | | | | | | as investigational or | | | | | | for research. This | | | | | [...] + | Specimen | + + | Muscle | + + + + + + + | Performing | Address | City/State/Zipcode | Phone Number | | Organization | | | | + + + + + | [facility] | [address] | [place] [address] | | | PATHOLOGY | [address] | | | + + + + + documented in this encounter Visit Diagnoses + + | Diagnosis | + + | Mass of left foot - Primary | + + documented in this encounter Administered Medications + +--------+ +-------+------+-------+ | Medication [...] +--------+ +-------+------+-------+ +---+---+ | | | +---+---+ documented in this encounter
--- OUTSIDE RECORDS SUMMARY | ~2019-01-30 | XMS | Encounter Summary ---
Demographics + + + | Address | [address] | | | [place] [address] | + + + | Home Phone [...] Team Providers + +------+ + | Care Ticket Machine Operator Name | Role | Phone [...] | | [facility] | [place], [place] | Orders) | | | | [address] | [address] | | | | | Mailcode: Center | [phone] | | | | | for [facility] | | | | | | Healing, [address] | | | | | | [place], [place] | | | | | | [address] | | | | | | [phone] | | | +--------+ + + + [...] [address] | | | | | | [place], [place] | | | | | | [address] | | | | | | [phone] | | | | | | | | +--------+ + + + + | 03/25/ | Office | Orthopedics | Lynda Basurto, | | | 2018 | Visit | | [address] | | | | | | [address] | | | | | | [place], [place] | | | | | | [address] | | | | | | [phone] | | | | | | | | +--------+ + + + + | 03/25/ | Office | Hematology & | Sandra Patel MD | | | 2018 | Visit | Oncology | [address] | | | | | | [place], [place] | | | | | | [address] | | | | | | [phone] | | | | | | | | +--------+ + + + + documented as of this encounter Visit Diagnoses + + | Diagnosis | + + | History of chemotherapy - Primary Personal history of antineoplastic chemotherapy | + + documented in this encounter"
--- OUTSIDE RECORDS SUMMARY | ~2019-01-30 | XMS | Encounter Summary ---
Demographics + + + | Address | [address] | | | [place] [address] | + + + | Home Phone [...] Team Providers + +------+ + | Care Lamp Mechanic Name | Role | Phone | [...] | | | | | [facility] | | | | | | [place], [place] | | | | | | [address] | | | +--------+ + + + [...] [address] | | | | | | [place] | | | | | | [address] | | | | | | [phone] | | | | | | | | +--------+ + + + + | 03/25/ | Office | Orthopedics | Lynda Basurto, | | | 2018 | Visit | | [address] | | | | | | [address] | | | | | | [place] | | | | | | [address] | | | | | | [phone] | | | | | | | | +--------+ + + + + | 03/25/ | Office | Hematology & | Sandra Patel MD | | | 2018 | Visit | Oncology | [address] | | | | | | [place] | | | | | | [address] | | | | | | [phone] | | | | | | | | +--------+ + + + + documented as of this encounter Visit Diagnoses Not on filedocumented in this encounter"
--- OUTSIDE RECORDS SUMMARY | ~2019-01-30 | XMS | Encounter Summary ---
Demographics + + + | Address | [address] | | | [place] [address] | + + + | Home Phone [...] Providers + +------+ + | Care Tube Building Machine Operator Name | Role | Phone | + +------+ + | Santo Gooden MD | PCP | | + +------+ + Encounter Details +--------+ + + + + | Date | Type | Department | Care Team | Description | +--------+ + + + + | 03/31/ | Procedure | Diagnostic Imaging | | | | 2018 | Pass | Services at [facility] | | | | | | [address] | | | | | | [facility] | | | | | | Mailcode: L[address] [facility] | | | | | | [facility], | | | | | | [place] [address] | | | | | | [phone] | | | +--------+ + + + [...] | | | 2018 | | | [address] | | | | | | [place], [place] | | | | | | [address] | | | | | | [phone] | | | | | | | | +--------+ + + + + | 03/25/ | Office | Orthopedics | Lynda Basurto, | | | 2018 | Visit | | [address] | | | | | | [address] | | | | | | [place], [place] | | | | | | [address] | | | | | | [phone] | | | | | | | | +--------+ + + + + | 03/25/ | Office | Hematology & | Sandra Patel MD | | | 2019 | Visit | Oncology | [address] | | | | | | [place], [place] | | | | | | [address] | | | | | | [phone] | | | | | | | | +--------+ + + + + documented as of this encounter Visit Diagnoses Not on filedocumented in this encounter"
--- OUTSIDE RECORDS SUMMARY | ~2019-01-30 | XMS | Encounter Summary ---
Demographics + + + | Address | [address] | | | [place] [address] | + + + | Home Phone [...] Providers + +------+ + | Care Branch Service Associate Name | Role | Phone | [...] | | | | | Sarcoma | [place] | [facility] | | | | | (HCC) L | Health | Rd | | | | | Foot Mass | Center | [place], [place] | | | | | (Sarcoma) | [address] | [address] | | | | | | [place] | Phone: | | | | | | Way | [phone] | | | | | | [place], | Fax: | | | | | | [place] [address] | [phone] | | | | | | Phone: | | | | | | | [phone] | | | | | | | Fax: | | | | | | | [phone] | | +--------+--------+ + + + + Encounter Details +--------+---------+ + + + | Date | Type | Department | Care Team | Description | +--------+---------+ + + + | 01/15/ | Office | Orthopaedics at | Lynda Basurto, | Mass of left foot | | 2018 | Visit | [facility] [address] | [address] | (Primary Dx) | | | | Ave Mailcode: CH12A | [address] | | | | | [facility] | [place], [place] | | | | | and | [address] | | | | | Floor [place], [place] | [phone] | | | | | [address] | | | | | | [phone] | | | +--------+---------+ + + + [...] putting on certain shoes now. [place]. 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 General: Alert, awake, and oriented x3. No [...] [address] | | | | | | [place], [place] | | | | | | [address] | | | | | | [phone] | | | | | | | | +--------+ + + + + | 03/25/ | Office | Orthopedics | Rosy BasurtoRegiotto, | | | 2018 | Visit | | [address] | | | | | | [address] | | | | | | [place], [place] | | | | | | [address] | | | | | | [phone] | | | | | | | | +--------+ + + + + | 03/25/ | Office | Hematology & | Sandra Patel MD | | | 2018 | Visit | Oncology | [address] | | | | | | [facility] [place] | | | | | | [address] | | | | | | [phone] | | | | | | | [...] | + +--------+ + + + | DC NEEDLE | Routin | 01/15/2018 | Mass [...] | | | | | | a [id number] | | | | | | [...] clinical | | | | | | utility system operator. | | | | + + + [...] + + + + | [facility] | [address] , | [place] [address] | | | DIAGNOSTIC | [address] [...] | | | | | (CLIA). The [facility] | | | | | | [facility] | | | | | | Laboratories are fully | | | | | | licensed by the state of | | | | | | [place] under CLIA and | | | | | | are accredited by the | | | | | | [employer] | | | | | | Pathologists [...] FACMGClinical | | | | | | Ethnology Professor Clinical | | | | | | [...] | [facility] | [address] | [place] [address] | | | DIAGNOSTIC | [address] [...] number | | | | | | [id number]. Foot - left: | | | | [...] + + + | [facility] | [address] | [place] [address] | | | PATHOLOGY | [address] [...]
--- OUTSIDE RECORDS SUMMARY | ~2019-01-30 | XMS | Encounter Summary ---
Demographics + + + | Address | [address] | | | [place] [address] | + + + | Home Phone [...] Team Providers + +------+ + | Care Grades 1 Thru 6 Home Teacher Name | Role | Phone | + +------+ + | Santo Gooden MD | PCP | | + +------+ + Encounter Details +--------+ + + + + | Date | Type | Department | Care Team | Description | +--------+ + + + + | 12/29/ | Telephone | Orthopaedics at | Lynda Basurto, | | | 2019 | | [facility] [address] | [address] | | | | | [place] Mailcode: CH12A | [facility] | | | | | [facility] | [place], [place] | | | | | and , | [address] | | | | | Floor [place], [place] | [phone] | | | | | [address] | | | | | | [phone] | | | +--------+ + + + [...] | | | 2018 | | | [address] | | | | | | [place], [place] | | | | | | [address] | | | | | | [phone] | | | | | | | | +--------+ + + + + | 03/25/ | Office | Orthopedics | Lynda Basurto, | | | 2019 | Visit | | [address] | | | | | | [address] | | | | | | [place], [place] | | | | | | [address] | | | | | | [phone] | | | | | | | | +--------+ + + + + | 03/25/ | Office | Hematology & | Sandra Patel MD | | | 2019 | Visit | Oncology | [address] | | | | | | [place] | | | | | | [address] | | | | | | [phone] | | | | | | | | +--------+ + + + + documented as of this encounter Visit Diagnoses Not on filedocumented in this encounter"
--- OUTSIDE RECORDS SUMMARY | ~2019-01-30 | XMS | Encounter Summary ---
Demographics + + + | Address | [address] | | | [place] [address] | + + + | Home Phone [...] Team Providers + +------+ + | Care Care Connector Name | Role | Phone | + [...] (incision | | 2017 | | [facility] [address] | [address] | issue) | | | | [place] Mailcode: CH12A | [address] | | | | | [facility] | [place], [place] | | | | | and [facility] | [address] | | | | | Floor [place], [place] | [phone] | | | | | [address] | | | | | | [phone] | | | +--------+ + + + [...] [place] | | | | | | [address] | | | | | | [phone] | | | | | | | | +--------+ + + + + | 03/25/ | Office | Orthopedics | Lynda Basurto, | | | 2019 | Visit | | [address] | | | | | | [address] | | | | | | [facility] [place] | | | | | | [address] | | | | | | [phone] | | | | | | | | +--------+ + + + + | 03/25/ | Office | Hematology & | Sandra Patel MD | | | 2019 | Visit | Oncology | [address] | | | | | | [place] | | | | | | [address] | | | | | | [phone] | | | | | | | | +--------+ + + + + documented as of this encounter Visit Diagnoses Not on filedocumented in this encounter"
--- OUTSIDE RECORDS SUMMARY | ~2019-01-30 | XMS | Encounter Summary ---
Demographics + + + | Address | [address] | | | [place] [address] | + + + | Home Phone [...] Providers + +------+ + | Care Senior Informatica Developer Name | Role | Phone | [...] [address] | | | | | | [address] | | | | | | [facility], | | | | | | [place] [address] | | | +--------+ + + + [...] [address] | | | | | | [place], [place] | | | | | | [address] | | | | | | [phone] | | | | | | | | +--------+ + + + + | 03/25/ | Office | Orthopedics | Lynda Basurto, | | | 2018 | Visit | | [address] | | | | | | [address] | | | | | | [place], [place] | | | | | | [address] | | | | | | [phone] | | | | | | | | +--------+ + + + + | 03/25/ | Office | Hematology & | Sandra Patel MD | | | 2019 | Visit | Oncology | [address] | | | | | | [place], [place] | | | | | | [address] | | | | | | [phone] | | | | | | | | +--------+ + + + + documented as of this encounter Visit Diagnoses Not on filedocumented in this encounter"
--- OUTSIDE RECORDS SUMMARY | ~2019-01-30 | XMS | Encounter Summary ---
Demographics + + + | Address | [address] | | | [place] [address] | + + + | Home Phone [...] Team Providers + +------+ + | Care Computational Theory Scientist Name | Role | Phone | [...] | | | (HCC) | Ave | [facility] | | | | | Procedures | [place], [place] | Road | | | | | [place] | [address] | Mailcode: | | | | | CONTRAST [place] | Phone: | [address] [facility] | | | | | [place] | [phone] | [facility] | | | | | SCAN,THORAX, | Fax: | [place], [place] | | | | | W/O CONTRAST | [phone] | [address] | | | | | | | Phone: | | | | | | | [phone] | | | | | | | Fax: | | | | | | | [phone] | +--------+--------+ + + + + Diagnostic [...] | | | | | Procedures | [place], [place] | Road | | | | | [place] | [address] | Mailcode: | | | | | CONTRAST [place] | Phone: | [address] [facility] | | | | | [place] | [phone] | [facility] | | | | | SCAN,THORAX, | Fax: | [place], [place] | | | | | W/O CONTRAST | [phone] | [address] | | | | | | | Phone: | | | | | | | [phone] | | | | | | | Fax: | | | | | | | [phone] | +--------+--------+ + + + + Reason [...] [address] | | | | | ([facility]) | Ave | [address] [place] | | | | | Procedures | [place], [place] | Road | | | | | [place] | [address] | Mailcode: | | | | | CONTRAST [place] | Phone: | [address] [facility] | | | | | [place] | [phone] | Hospital | | | | | SCAN,THORAX, | Fax: | [place], [place] | | | | | W/O CONTRAST | [phone] | [address] | | | | | | | Phone: | | | | | | | [phone] | | | | | | | Fax: | | | | | | | [phone] | +--------+--------+ + + + + Encounter Details +--------+ + + + + | Date | Type | Department | Care Team | Description | +--------+ + + + + | 05/14/ | Hospital | Radiology/Imaging | | | | 2018 | Encounter | Lab at [facility] [address] | | | | | | [address] | | | | | | Mailcode: CH3G | | | | | | [facility] | | | | | | and [address], 3rd | | | | | | [place], [place] | | | | | | [address] | | | | | | [phone] | | | +--------+ + + + [...] | | | 2018 | | | [address] | | | | | | [place], [place] | | | | | | [address] | | | | | | [phone] | | | | | | | | +--------+ + + + + | 03/25/ | Office | Orthopedics | Lynda Basurto, | | | 2019 | Visit | | [address] | | | | | | [address] | | | | | | [facility] [place] | | | | | | [address] | | | | | | [phone] | | | | | | | | +--------+ + + + + | 03/25/ | Office | Hematology & | Sandra Patel MD | | | 2019 | Visit | Oncology | [address] | | | | | | [place], [place] | | | | | | [address] | | | | | | [phone] | | | | | | | [...]
--- OUTSIDE RECORDS SUMMARY | ~2019-01-30 | XMS | Encounter Summary ---
Demographics + + + | Address | [address] | | | [place] [address] | + + + | Home Phone [...] Team Providers + +------+ + | Care Compensation And Hris Analyst Name | Role | Phone | [...] Synovial | MD John | MD Yusef [address] | | | | | sarcoma | [address] | [address] | | | | | ([facility]) | Ave | [address] | | | | | Procedures | [place], [place] | [place], [place] | | | | | REQUEST TO | [address] | [address] | | | | | SURGERY | Phone: | Phone: | | | | | PATTERN DRAFTER | [phone] | [phone] | | | | | [place] INSERT | Fax: | Fax: | | | | | SCOUT CV | [phone] | [phone] | | | | | CATH,W SQ | | | | | | | PORT,>5 Y/O | | | | | | | [place] | | | | | | | FLUOROGUIDE | | | | | | | FOR VEIN | | | | | | | DEVICE [place] | | | | | | | [...] | | 2018 | Orders | at [facility] [address] | [address] | | | | | [address] Mail Code: | [place] | | | | | [facility] | [address] | | | | | and [address], | [phone] | | | | | Building [address] | | | | | | [place], [place] | | | | | | [address] | | | | | | [phone] | | | +--------+ + + + [...] Instructions Patient Instructions Leia Camarillo RN - 01/31/2018 4:55 PM [facility] 1. Phone [facility] Appointment (Perioperative Medicine Clinic) is on 02/06/18 at 3:00. The [facility] clinic will call you at your appointed date and time. If you do not receive a call , please call [phone] or toll free ext [phone]. Instructions for undergoing a line placement: * Stop blood thinners (Aspirin, Warfarin, etc.) as directed now including naproxen. * Nothing to eat or drink (including water) after midnight on 02/06/18. (the night prior to your surgery). * REPORT TO THE 4TH FLOOR OF THE [facility], ROOM 4519 (AMBULATORY DAY SURGERY) ON 02/07/18 * The office will call you with your check in time on 02/06/18 -between 1:00 and 3:00pm. If you have not received a call by 3:00 pm, please call [phone]. * Please shower with hibiclens and shampoo before being admitted to the hospital. * Do not wear any make up, nail occitan or jewelry for the surgery. * Carefully read all literature given to you regarding your surgery. * REMEMBER: You may NOT drive yourself home after surgery! Please make arrangements to hav e someone take you home after you are released from the Day Surgery Facility. * Free parking is available in the [facility]. *Your surgeon is Dr. Restrepo. *Surgical Oncology phone number is [phone]. *You will have a dressing over the [...] hallway and up the ramp to the [facility]. 5. Continue down the hallway to the elevator (located in front of the Dept of Anesthesiolog y Offices) 6. Take the elevator to the 4th Floor. 7. Turn left off of the elevator and go straight down the hallway. 8. Day Stay is on the right side room #4519. Contact Information If you have any questions, please call us during business hours: [facility] Toll Free X [phone] Breast [facility] After hours and on weekends, please call the paging eyelet punch operator at and ask for the Gold Surgery registered nurse bone marrow transplant. documented in this encounter Plan of Treatment [...] [place] | | | | | | [address] | | | | | | [phone] | | | | | | | | +--------+ + + + + | 03/25/ | Office | Orthopedics | Lynda Basurto, | | | 2018 | Visit | | [address] | | | | | | [address] | | | | | | [place], [place] | | | | | | [address] | | | | | | [phone] | | | | | | | | +--------+ + + + + | 03/25/ | Office | Hematology & | Sandra Patel MD | | | 2018 | Visit | Oncology | [address] | | | | | | [place], [place] | | | | | | [address] | | | | | | [phone] | | | | | | | | +--------+ + + + + documented as of this encounter Visit Diagnoses + + | Diagnosis | + + | 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
--- OUTSIDE RECORDS SUMMARY | ~2019-01-30 | XMS | Encounter Summary ---
Demographics + + + | Address | [address] | | | [place] [address] | + + + | Home Phone [...] Team Providers + +------+ + | Care Critical Care Technician Name | Role | Phone | [...] Ave | | | | | ([facility]) | Ave | [address] | | | | | Procedures | [place], [place] | [place], [place] | | | | | REQUEST TO | [address] | [address] | | | | | SURGERY | Phone: | Phone: | | | | | TRIAGE RN | [phone] | [phone] | | | | | CT INSERT | Fax: | Fax: | | | | | SCOUT CV | [phone] | [phone] | | | | | CATH,W SQ | | | | | | | PORT,>4 Y/O | | | | | | | CT | | | | | | | FLUOROGUIDE | | | | | | | FOR VEIN | | | | | | | DEVICE CT | | | | | | | [...] | [address] Mail Code: | [place] | | | | | [facility] | [address] | | | | | and [address], | [phone] | | | | | Building [address] | | | | | | [place], [place] | | | | | | [address] | | | | | | [phone] | | | +--------+ + + + [...] Leia Camarillo RN - 01/31/2018 4:55 PM [facility]. Phone [facility] Appointment (Perioperative Medicine Clinic) is on 02/06/18 at 3:00. The [facility] clinic will call you at your appointed date and time. If you do not receive a call , please call [phone] or toll free ext [phone]. Instructions for undergoing a line placement: * Stop blood thinners (Aspirin, Warfarin, etc.) as directed now including naproxen. * Nothing to eat or drink (including water) after midnight on 02/06/18. (the night prior to your surgery). * REPORT TO THE 4TH FLOOR OF THE [facility], ROOM 4519 (AMBULATORY DAY SURGERY) ON 02/07/18 * The office will call you with your check in time on 02/06/18 -between 1:00 and 3:00pm. If you have not received a call by 3:00 pm, please call [phone]. * Please shower with hibiclens and shampoo before being admitted to the hospital. * Do not wear any make up, nail turkish or jewelry for the surgery. * Carefully read all literature given to you regarding your surgery. * REMEMBER: You may NOT drive yourself home after surgery! Please make arrangements to hav e someone take you home after you are released from the Day Surgery Facility. * Free parking is available in the [facility]. *Your surgeon is Dr. Restrepo. *Surgical Oncology phone number is [phone]. *You will have a dressing over the [...] hallway and up the ramp to the [facility]. 5. Continue down the hallway to the elevator (located in front of the Dept of Anesthesiolog y Offices) 6. Take the elevator to the 4th Floor. 7. Turn left off of the elevator and go straight down the hallway. 8. Day Stay is on the right side room #4519. Contact Information If you have any questions, please call us during business hours: [facility] Toll Free X [phone] Breast [facility] After hours and on weekends, please call the paging yoker machine operator at and ask for the Gold Surgery leather seasoner. documented in this encounter Plan of Treatment [...] [place] | | | | | | [address] | | | | | | [phone] | | | | | | | | +--------+ + + + + | 03/25/ | Office | Orthopedics | Lynda Basurto, | | | 2018 | Visit | | [address] | | | | | | [address] | | | | | | [place], [place] | | | | | | [address] | | | | | | [phone] | | | | | | | | +--------+ + + + + | 03/25/ | Office | Hematology & | Sandra Patel MD | | | 2018 | Visit | Oncology | [address] | | | | | | [place], [place] | | | | | | [address] | | | | | | [phone] | | | | | | | | +--------+ + + + + documented as of this encounter Visit Diagnoses + + | Diagnosis | + + | 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
--- OUTSIDE RECORDS SUMMARY | ~2019-01-30 | XMS | Encounter Summary ---
Demographics + + + | Address | [address] | | | [place] [address] | + + + | Home Phone [...] Team Providers + +------+ + | Care Large Animal Husbandry Technician Name | Role | Phone | [...] | Floor [address] | [facility] | | | | | [facility] | [place], [place] | | | | | Mailcode: L457 | [address] | | | | | Physicians Katie | [phone] | | | | | [place], [place] | | | | | | [address] | | | | | | [phone] | | | +--------+ + + + [...] | | | 2018 | | | [address] | | | | | | [place], [place] | | | | | | [address] | | | | | | [phone] | | | | | | | | +--------+ + + + + | 03/25/ | Office | Orthopedics | Lynda Basurto, | | | 2019 | Visit | | [address] | | | | | | [address] | | | | | | [place], [place] | | | | | | [address] | | | | | | [phone] | | | | | | | | +--------+ + + + + | 03/25/ | Office | Hematology & | Sandra Patel MD | | | 2019 | Visit | Oncology | [address] | | | | | | [place] | | | | | | [address] | | | | | | [phone] | | | | | | | | +--------+ + + + + documented as of this encounter Visit Diagnoses Not on filedocumented in this encounter"
--- OUTSIDE RECORDS SUMMARY | ~2019-01-30 | XMS | Encounter Summary ---
Demographics + + + | Address | [address] | | | [place] [address] | + + + | Home Phone [...] | + + +---------+ + | Kika Cgae | ECON | Unknown | | + + +---------+ + Care Team Providers + +------+ + | Care Telephone Station Repairer Name | Role | Phone | + +------+ + | Santo Gooden MD | PCP | | + +------+ + Encounter Details +--------+ + + + + | Date | Type | Department | Care Team | Description | +--------+ + + + + | 03/27/ | Procedure | 6A Intra Op [facility] | | | | 2017 | Pass | [facility] | | | | | | Admitting Desk | | | | | | Located on the 9th | | | | | | floor [address] [facility] | | | | | | [facility] | | | | | | [place], [place] | | | | | | [address] | | | +--------+ + + + [...] | | | 2018 | | | [address] | | | | | | [place], [place] | | | | | | [address] | | | | | | [phone] | | | | | | | | +--------+ + + + + | 03/25/ | Office | Orthopedics | Lynda Basurto, | | | 2018 | Visit | | [address] | | | | | | [address] | | | | | | [place], [place] | | | | | | [address] | | | | | | [phone] | | | | | | | | +--------+ + + + + | 03/25/ | Office | Hematology & | Sandra Patel MD | | | 2019 | Visit | Oncology | [address] | | | | | | [place], [place] | | | | | | [address] | | | | | | [phone] | | | | | | | | +--------+ + + + + documented as of this encounter Visit Diagnoses Not on filedocumented in this encounter"
--- OUTSIDE RECORDS SUMMARY | ~2019-01-30 | XMS | Encounter Summary ---
Demographics + + + | Address | [address] | | | [place] [address] | + + + | Home Phone [...] Team Providers + +------+ + | Care Dining Room Hostess Name | Role | Phone | + [...] | Floor [address] | [facility] | | | | | [facility] | [place], [place] | | | | | Mailcode: L457 | [address] | | | | | Physicians Katie | [phone] | | | | | [place], [place] | | | | | | [address] | | | | | | [phone] | | | +--------+ + + + [...] | | | 2018 | | | [address] | | | | | | [place], [place] | | | | | | [address] | | | | | | [phone] | | | | | | | | +--------+ + + + + | 03/25/ | Office | Orthopedics | Lynda Basurto, | | | 2019 | Visit | | [address] | | | | | | [address] | | | | | | [place], [place] | | | | | | [address] | | | | | | [phone] | | | | | | | | +--------+ + + + + | 03/25/ | Office | Hematology & | Sandra Patel MD | | | 2019 | Visit | Oncology | [address] | | | | | | [place] | | | | | | [address] | | | | | | [phone] | | | | | | | | +--------+ + + + + documented as of this encounter Visit Diagnoses Not on filedocumented in this encounter"
--- OUTSIDE RECORDS SUMMARY | ~2019-01-30 | XMS | Encounter Summary ---
Demographics + + + | Address | [address] | | | [place] [address] | + + + | Home Phone [...] Providers + +------+ + | Care Railroad Car Repair Supervisor Name | Role | Phone | + +------+ + | Santo Gooden MD | PCP | | + +------+ + Encounter Details +--------+ + + + + | Date | Type | Department | Care Team | Description | +--------+ + + + + | 02/05/ | Drug Abuse Counselor | LAB CORE [address] | Fabio Blackmon | Preop examination | | 2018 | | Fidencio Rogers MD [address] | (Primary Dx) | | | | Road [place], [place] | [address] | | | | | [address] | [place], [place] | | | | | [phone] | [address] | | | | | | [phone] | | | | | | | [...] | | | 2018 | | | [address] | | | | | | [place], [place] | | | | | | [address] | | | | | | [phone] | | | | | | | | +--------+ + + + + | 03/25/ | Office | Orthopedics | Lynda Basurto, | | | 2018 | Visit | | [address] | | | | | | [address] | | | | | | [place], [place] | | | | | | [address] | | | | | | [phone] | | | | | | | | +--------+ + + + + | 03/25/ | Office | Hematology & | Sandra Patel MD | | | 2019 | Visit | Oncology | [address] | | | | | | [place], [place] | | | | | | [address] | | | | | | [phone] | | | | | | | [...] + + + + + | [facility] | [address] | [place] [address] | | | SERVICES, | [address] | | | | TRANSFUSION MEDICINE | | | | + + + + + documented in this encounter Visit Diagnoses + + | Diagnosis | + + | Preop examination - Primary Preoperative examination, unspecified | + + documented in this encounter"
--- OUTSIDE RECORDS SUMMARY | ~2019-01-30 | XMS | Encounter Summary ---
Demographics + + + | Address | [address] | | | [place] [address] | + + + | Home Phone [...] Providers + +------+ + | Care Utility Repairer Name | Role | Phone | [...] | | | | Malignancies at | [facility], | | | | | [facility] | [place] [address] | | | | | [address] | [phone] | | | | | [address] | | | | | | Mailcode: UHN73A | | | | | | [place] | | | | | | [place], [place] | | | | | | [address] | | | | | | [phone] | | | +--------+ + + + [...] [address] | | | | | | [place], [place] | | | | | | [address] | | | | | | [phone] | | | | | | | | +--------+ + + + + | 03/25/ | Office | Orthopedics | Rosy BasurtoMacarioLori, | | | 2018 | Visit | | [address] | | | | | | [address] | | | | | | [place], [place] | | | | | | [address] | | | | | | [phone] | | | | | | | | +--------+ + + + + | 03/25/ | Office | Hematology & | Sandra Patel MD | | | 2018 | Visit | Oncology | [address] | | | | | | [place], [place] | | | | | | [address] | | | | | | [phone] | | | | | | | | +--------+ + + + + documented as of this encounter Visit Diagnoses Not on filedocumented in this encounter"
--- OUTSIDE RECORDS SUMMARY | ~2019-01-30 | XMS | Encounter Summary ---
Demographics + + + | Address | [address] | | | [place] [address] | + + + | Home Phone [...] Team Providers + +------+ + | Care Clay Machine Operator Name | Role | Phone [...] | | | | neoplasm of | [address] | | | | | | soft tissue | [address] | | | | | | of left | [address] | | | | | | lower | [place], [place] | | | | | | extremity | [address] | | | | | | (HCC) | Phone: | | | | | | Procedures | [phone] | | | | | | CT CHEST WO | Fax: | | | | | | CONTRAST | [phone] | | + +--------+ + + + [...] | | | | | lower | [place], [place] | | | | | | extremity | [address] | | | | | | (HCC) | Phone: | | | | | | Procedures | [phone] | | | | | | CT CHEST WO | Fax: | | | | | | CONTRAST | [phone] | | + +--------+ + + + [...] | | | | | lower | [place], [place] | | | | | | extremity | [address] | | | | | | (HCC) | Phone: | | | | | | Procedures | [phone] | | | | | | CT CHEST WO | Fax: | | | | | | CONTRAST | [phone] | | + +--------+ + + + + Encounter Details +--------+ + + + + | Date | Type | Department | Care Team | Description | +--------+ + + + + | 01/22/ | Hospital | Radiology/Imaging | Sb RsoyAlexander, | | | 2018 | Encounter | Lab at [facility] [address] | [address] | | | | | [address] | [facility] | | | | | Mailcode: CH3G | [place], [place] | | | | | [facility] | [address] | | | | | and [address] [facility] | [phone] | | | | | Floor [place], [place] | | | | | | [address] | | | | | | [phone] | | | +--------+ + + + [...] Scott | | | | | | [place], [place] | | | | | | [address] | | | | | | [phone] | | | | | | | | +--------+ + + + + | 03/25/ | Office | Orthopedics | Lynda Basurto, | | | 2018 | Visit | | [address] | | | | | | [address] | | | | | | [place], [place] | | | | | | [address] | | | | | | [phone] | | | | | | | | +--------+ + + + + | 03/25/ | Office | Hematology & | Sandra Patel MD | | | 2018 | Visit | Oncology | [address] | | | | | | [place], [place] | | | | | | [address] | | | | | | [phone] | | | | | | | [...]
--- OUTSIDE RECORDS SUMMARY | ~2019-01-30 | XMS | Encounter Summary ---
Demographics + + + | Address | [address] | | | [place] [address] | + + + | Home Phone [...] Team Providers + +------+ + | Care Turntable Engineer Name | Role | Phone | [...] | | | | | [address] [place], | | | | | | [place] [address] | | | +--------+--------+ + + + [...] Ave | | | | | | [place], [place] | | | | | | [address] | | | | | | [phone] | | | | | | | | +--------+ + + + + | 03/25/ | Office | Orthopedics | Lynda Basurto, | | | 2018 | Visit | | [address] | | | | | | [address] | | | | | | [place], [place] | | | | | | [address] | | | | | | [phone] | | | | | | | | +--------+ + + + + | 03/25/ | Office | Hematology & | Sandra Patel MD | | | 2018 | Visit | Oncology | [address] | | | | | | [place], [place] | | | | | | [address] | | | | | | [phone] | | | | | | | | +--------+ + + + + documented as of this encounter Visit Diagnoses Not on filedocumented in this encounter"
--- OUTSIDE RECORDS SUMMARY | ~2019-01-30 | XMS | Encounter Summary ---
Demographics + + + | Address | [address] | | | [place] [address] | + + + | Home Phone [...] Team Providers + +------+ + | Care Lithopone Charger Name | Role | Phone | + [...] | Malignant | Lynda, | MD Oskar [address] | | | | | neoplasm of | [address] | | | | | soft tissue | [address] | [facility] [place] | | | | | of left | [address] | [address] | | | | | lower | [place], [place] | Phone: | | | | | extremity | [address] | [phone] | | | | | (HCC) | Phone: | Fax: | | | | | Procedures | [phone] | [phone] | | | | | CONSULT TO | Fax: | | | | | | HEMATOLOGY / | [phone] | | | | | | ONCOLOGY [...] Center | [address] | ([facility]) (Primary Dx) | | | | for Health & Healing | [facility] [place] | | | | | [address] | [address] | | | | | Mailcode: CH7N | [phone] | | | | | [facility] | | | | | | and Healing, | | | | | | [place], [place] | | | | | | [address] | | | | | | [phone] | | | +--------+---------+ + + + [...] Name: Tati Cage : 1985 Home Town: [place], [place] Referring Physician: Sb Diagnosis: high risk [...] 1700. Yoli cations: [facility], Bedside commode for nighttime use following foot [...] perfused. No edema. Neurologic - Awake, alert. mobile application developer grossly intact. Affect/Psych - Appropriate. ECOG - [...] q4-6 weeks until then. Sandra Patel MD Adjustment Supervisor Medical Oncology & Pediatric Hematology/Oncology [facility] [place] [facility] documented in this encounter [...] [place] | | | | | | [address] | | | | | | [phone] | | | | | | | | +--------+ + + + + | 03/25/ | Office | Orthopedics | Lynda Basurto, | | | 2018 | Visit | | [address] | | | | | | [address] | | | | | | [place], [place] | | | | | | [address] | | | | | | [phone] | | | | | | | | +--------+ + + + + | 03/25/ | Office | Hematology & | Sandra Patel MD | | | 2018 | Visit | Oncology | [address] | | | | | | [place], [place] | | | | | | [address] | | | | | | [phone] | | | | | | | | +--------+ + + + + documented as of this encounter Visit Diagnoses + + | Diagnosis | + + | 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
--- OUTSIDE RECORDS SUMMARY | ~2019-01-30 | XMS | Encounter Summary ---
Demographics + + + | Address | [address] | | | [place] [address] | + + + | Home Phone [...] Team Providers + +------+ + | Care Tool And Die Repair Name | Role | Phone | + [...] Nascimento | | | | | | [facility] | | | | | | [place], [place] | | | | | | [address] | | | +--------+ + + + [...] Scott | | | | | | [place] | | | | | | [address] | | | | | | [phone] | | | | | | | | +--------+ + + + + | 03/25/ | Office | Orthopedics | Lynda Basurto, | | | 2018 | Visit | | [address] | | | | | | [address] | | | | | | [place] | | | | | | [address] | | | | | | [phone] | | | | | | | | +--------+ + + + + | 03/25/ | Office | Hematology & | Sandra Patel MD | | | 2018 | Visit | Oncology | [address] | | | | | | [place] | | | | | | [address] | | | | | | [phone] | | | | | | | | +--------+ + + + + documented as of this encounter Visit Diagnoses Not on filedocumented in this encounter"
--- OUTSIDE RECORDS SUMMARY | ~2019-01-30 | XMS | Encounter Summary ---
Demographics + + + | Address | [address] | | | [place] [address] | + + + | Home Phone [...] | | [facility] | [place], [place] | and labs) | | | | [address] | [address] | | | | | Mailcode: Center | [phone] | | | | | for Health and | | | | | | Healing, [address] | | | | | | [place], [place] | | | | | | [address] | | | | | | [phone] | | | +--------+ + + + [...] [place] | | | | | | [address] | | | | | | [phone] | | | | | | | | +--------+ + + + + | 03/25/ | Office | Orthopedics | Lynda Basurto, | | | 2018 | Visit | | [address] | | | | | | [address] | | | | | | [place], [place] | | | | | | [address] | | | | | | [phone] | | | | | | | | +--------+ + + + + | 03/25/ | Office | Hematology & | Sandra Patel MD | | | 2018 | Visit | Oncology | [address] | | | | | | [facility] [place] | | | | | | [address] | | | | | | [phone] | | | | | | | | +--------+ + + + + documented as of this encounter Visit Diagnoses + + | Diagnosis | + + | 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
--- OUTSIDE RECORDS SUMMARY | ~2019-01-30 | XMS | Encounter Summary ---
Demographics + + + | Address | [address] | | | [place] [address] [...] Providers + +------+ + | Care Chemistry Technologist Name | Role | Phone | + +------+ + | Santo Gooden MD | PCP | | + +------+ + Encounter Details +--------+ + + + + | Date | Type | Department | Care Team | Description | +--------+ + + + + | 02/17/ | Pharmacy | [facility] | | | | 2018 | Visit | & [facility] | | | | | | [address] | | | | | | [place], [place] | | | | | | [address] | | | | | | [phone] | | | +--------+ + + + [...] [place] | | | | | | [address] | | | | | | [phone] | | | | | | | | +--------+ + + + + | 03/25/ | Office | Orthopedics | Lynda Basurto, | | | 2018 | Visit | | [address] | | | | | | [address] | | | | | | [place], [place] | | | | | | [address] | | | | | | [phone] | | | | | | | | +--------+ + + + + | 03/25/ | Office | Hematology & | Sandra Patel MD | | | 2018 | Visit | Oncology | [address] | | | | | | [place] | | | | | | [address] | | | | | | [phone] | | | | | | | | +--------+ + + + + documented as of this encounter Visit Diagnoses Not on filedocumented in this encounter"
--- OUTSIDE RECORDS SUMMARY | ~2019-01-30 | XMS | Encounter Summary ---
Demographics + + + | Address | [address] | | | [place] [address] | + + + | Home Phone [...] Team Providers + +------+ + | Care Bioinformatics Programmer Name | Role | Phone | [...] + + | 04/24/ | Hospital | [facility] [address] | Savanna Mari, | | | 2018 - | Encounter | [address] | [address] | | | | | Road Mailcode: | [place], [place] | | | 04/27/ | | [id number] | [address] | | | 2017 | | [place], | [phone] | | | | | [place] [address] | | | | | | [phone] | | | +--------+ + + + [...] Sky MD - 04/27/2018 7:30 AM PDT [facility] Discharge Summary Discharging Provider: ROMEO SKY [...] ok with q20hrs interval. - neulasta at [place] 04/29 @ 10 am. labs and port care@ [place]. - Chemotherapy: C3D1 04/24/18 Ifos 2500mg/m^2 x 2.6 m^2with Mesna 2200mg in NaCl 0.9% for 2hrs q20hrs x 4doses Epirubicin 30mg/m2 x x 2.6 m^7a66ogx x 4doses Mesna 2200mg for 15minutes to [...] admitted for neutropenic fever 03/23/18, transferred to [facility] stump osteomyel itis/cellulitis due to E.Coli, [...] as above. pt has not continue with [id number] qhs adjunct to citalopram. Pt spoke with [...] that I, or Nurse Practitioner or Physician Chief Engineer Waterworks working with me, had a face to face encounter with this patient on 04/25/2018 On behalf of Attending Physician: Savanna Mari MD I am ordering and certify that the following services are medically necessary home health s [facility] Evaluate and Treat I certify that the [...] on weekends call paging ope rator at [phone] ask for director of acquisitions doctor for Heme-Onc if you have any [...] Selected Home Health Services [address] [place] [address] Social Care Services No service has been selected for the patient. Follow Up: Future Appointments Provider Department Dept Phone Center 05/15/2018 9:00 AM HEM NURSE TAWANDA Hematology/Medical Oncology at [facility] [phone] [facility] 05/15/2018 10:10 AM Sandra Patel Hematology/Medical Oncology at [facility] [phone] [facility] Contact information for other follow-up providers [place] 04/29/2018. Why: Neulasta and labs Contact information [phone]. Contact information for after-discharge [facility] [address] . Specialty: Home Health Services Contact information [address] [place] [address] Discharge Physical Exam: Last 24 hour min/max [...] General - obese adult female patient in [facility] Neurologic - AO x 3, appropriate. tax manager grossly intact. Skin - No bruising or [...] no erythema ROMEO SKY MD Hem/Onc Fellow [id number] Associated attestation - Kamaljit Mccallum, Savanna - 04/27/2018 7:12 PM PDTDate of Service: 04/27/20 18 Medical Oncology Attending Note: Patient was interviewed and personally examined by me today. I agree with the fellow's ass essment and stated plan of care. This includes: d/c today with outpatient follow up. See D /C summary Savanna Mari MD Clinical weeder thinner Medical Oncology and Hematology documented in this [...] NAD, Neurologic - AO x 3, appropriate. tax manager grossly intact. Skin - No bruising or [...] followed by 6weeks IV Zosyn continuous infusion. [facility] infectious disease, saw pt on 04/09/18. He [...] ok with q20hrs interval. - neulasta at [place] 04/29 @ 10 am. labs and port care @ [place]. - Chemotherapy: C3D1 04/24/18 Ifos 2500mg/m^2 x 2.6 m^2with Mesna 2200mg in NaCl 0.9% for 2hrs q20hrs x 4doses Epirubicin 30mg/m2 x x 2.6 m^4a91igc x 4doses Mesna 2200mg for 15minutes to [...] admitted for neutropenic fever 03/23/18, transferred to [facility] for BKA stump osteomyeli tis/cellulitis due to [...] as above. pt has not continue with [id number] qhs adjunct to citalopram. Pt spoke with [...] CODE: Full ROMEO SKY MD Hem/Onc Fellow [id number] Associated attestation - Savanna Mari Md - [...] ongoing supportive care. Savanna Mari MD Clinical weeder thinner Medical Oncology and Hematology documented in this encounter Plan of Treatment +--------+ + + + + | Date | Type | Specialty | Care Team | Description | +--------+ + + + + | 03/25/ | Appointment | Radiology | Sandra Patel MD | | | 2018 | | | [address] | | | | | | [place], [place] | | | | | | [address] | | | | | | [phone] | | | | | | | | +--------+ + + + + | 03/25/ | Office | Orthopedics | Lynda Basurto, | | | 2019 | Visit | | [address] | | | | | | [address] | | | | | | [place], [place] | | | | | | [address] | | | | | | [phone] | | | | | | | | +--------+ + + + + | 03/25/ | Office | Hematology & | Sandra Patel MD | | | 2019 | Visit | Oncology | [address] | | | | | | [place], [place] | | | | | | [address] | | | | | | [phone] | | | | | | | [...] [facility] | [address] | [place] [address] | | | SERVICES, CORE | [address] [...] | + + + + + | [facility] | [address] | [place] [address] | | | SERVICES, CORE | [address] | | | + + + + + MAGNESIUM, PLASMA (04/26/2018 6:30 AM PDT) + +-------+ + + + | Component | Value | Ref Range | Performed | Pathologist | | | | | At | Signature | + +-------+ + + + | MAGNESIUM,P | 2.0 | 1.6 - 2.6 mg/dL | TXELAINE | | | LASMA | | | [...] [facility] | [address] | [place] [address] | | | SERVICES, ANTONI | ARMANDO [...] [facility] | [address] | [place] [address] | | | SERVICES, CORE | PARK [...] [facility] | [address] | [place] [address] | | | SERVICES, ANTONI | PARK [...] | + + + + + | [facility] | [address] | [place] [address] | | | SERVICES, CORE | ARMANDO [...] oral, DAILY | | | NEEDED, Starting [facility] 04/24/18 at | | | 1423, Until 04/27/18 at 2132, | | | constipation | | + +---+ | | | + +---+ + +-------+ +-----+---+---+ | ceFEPIme (MAXIPIME) injection 2 | Given | 04/27/20 | 2 g | | | | g 2 g, intravenous, EVERY | | 18 2:40 | | | | | HOURS, First dose on [facility] 04/24/18 | | PM PDT | | [...] | | 4 doses, First dose on [facility] | | | | | | | [...] | | | DAILY, First dose on [facility] 04/24/18 | | PM PDT | | [...] | | | | NEEDED, Starting [facility] 04/24/18 at | | AM PDT | | | | | 1401, Until 04/27/18 at 2132, | | | | | | | potassium level 3-3.4 mmol/L | | | | | | + +-------+ +--------+---+---+ + +---+ | | | + +---+ | potassium phosphate IV 30 mmol | | | 30 mmol, intravenous, NEEDED, | | | Starting [facility] 04/24/18 at 1401, | | | Until 04/27/18 at 2132, | | | Potassium less than or equal to | | | 3.4 mmol/L AND Phosphate less | | | than or equal to 2 mg/dL. | | + +---+ | | | + +---+ | potassium phosphate IV 40 mmol | | | 40 mmol, intravenous, NEEDED, | | | Starting [facility] 04/24/18 at 1401, | | | Until [place] 04/27/18 at 2132, | | | Potassium [...] | | | | First dose on [facility] 04/24/18 at | | AM PDT | [...] 6 HOURS | | | NEEDED, Starting [facility] 04/24/18 at | | | 1456, Until [place] 04/27/18 at 2132, | | | n/v, [...] | mL/hr | | | CONTINUOUS, Starting [facility] 04/24/18 | | AM PDT | | [...] mmol, intravenous, NEEDED, | | | Starting [facility] 04/24/18 at 1401, | | | Until 04/27/18 at 2132, | | | Administer for sodium level less | | | than 148 mmol/L and phosphate | | | level 1.6-2 mg/dL. | | + +---+ | | | + +---+ | sodium phosphate IV 40 mmol 40 | | | mmol, intravenous, NEEDED, | | | Starting [facility] 04/24/18 at 1401, | | | Until 04/27/18 at 2132, | | | Administer for sodium level less | | | than 148 mmol/L and phosphate | | | level less than or equal to 1.5 | | | mg/dL. | | + +---+ | | | + +---+ documented in this encounter
--- OUTSIDE RECORDS SUMMARY | 2019-01-30 23:32 | XMS ---
PreManage Notification: ANNIKA BOWENS Security Fire Engineer Events No recent Security Events currently on file CRITERIA MET - [facility] - PDMP CARE PROVIDERS FARHAN MOONEY Internal Medicine: Medical Oncology 04/17/2018-Current PHONE: Unknown ELENI CHEUNG Nurse Lula Current PHONE: Unknown RYAN VALDERRAMA Obstetrics \T\ Gynecology Current PHONE: Unknown JUDY CHAMPION Nurse Practitioner 12/22/2018-Current PHONE: [phone] Jerica Pichardo Case or Patient Access Specialist Current PHONE: [phone] RYAN VALDERRAMA Primary Care Current PHONE: Unknown Primary Care Primary Care Current PHONE: Unknown Birgit has no Care Guidelines for this patient. Care History Medical/Surgical 12/22/2018 [facility] \T\middot;\T\nbsp; PATIENT IS A [employer] MEMBER. \T\middot;\T\nbsp; PLEASE REFER PATIENT TO [facility] FOR NON EMERGENT MEDICAL NEEDS. \T\middot;\ T\nbsp; [facility] CAN SEE PATIENTS SAME DAY FOR APTS IF PATIENT CALLS FIRST THING IN THE MORNING. 04/17/2018 [facility] - PATIENT IS CURRENTLY ON CHEMO THERAPY. - PATIENT PCP IS AT [facility] ( DR FARHAN WOOTEN E.D. VISIT COUNT (12 MO.) 8 [facility] Vallecillo TOTAL 8 NOTE: Visits indicate total known visits. 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, including hip - Morbid (severe) obesity due to excess calories - Unspecified fall, initial encounter - Other terminal supervisor (current) drug therapy - Allergy status to narcotic agent status - Major depressive disorder, single episode, unspecified 05/05/2018 14:08 [facility] [place] TYPE: Emergency COMPLAINT: - SORE THROAT DIAGNOSES: - Allergy status to other drugs, medicaments and biological substances status - Acute pharyngitis, unspecified - [facility] ([facility] drug therapy - Neutropenia, unspecified - [...] obesity due to excess calories - Other terminal supervisor (current) drug therapy - Thrombocytopenia, unspecified 04/16/2018 21:30 [facility] [place] TYPE: Emergency COMPLAINT: - POSS LOW POTASSIUM DIAGNOSES: - Anxiety disorder, unspecified - Major depressive disorder, single episode, unspecified - Hypokalemia - Allergy status to narcotic agent status - Morbid (severe) obesity due to excess calories - ad terminal makeup operator (current) use of opiate analgesic - Allergy status to other drugs, medicaments and biological substances status - Other terminal supervisor (current) 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 therapy 03/22/2018 22:31 [facility] [place] TYPE: Emergency COMPLAINT: - EXTREMITY PAIN/FEVER DIAGNOSES: - Allergy status to narcotic agent status - Major depressive disorder, single episode, unspecified - Morbid (severe) obesity due to excess calories - Fever, unspecified - Fever presenting with conditions classified elsewhere - Infection following a procedure, initial encounter - [facility] (current) use of antibiotics - Other [facility] (current[facility] drug therapy - Anxiety disorder, unspecified - Allergy status to other drugs, medicaments and biological substances status - Neutropenia, unspecified - ad terminal makeup operator (current) use of opiate analgesic 03/21/2018 15:40 [facility] [place] TYPE: Emergency COMPLAINT: - FEVER/POSS DEHYDRATION DIAGNOSES: - Allergy status to other drugs, medicaments and biological substances status - Allergy status to narcotic agent status - Major depressive disorder, single episode, unspecified - Anxiety disorder, unspecified - Hypokalemia - Other 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 NEUTROPENIC FEVER 89375. Infection of amputation stump, unspecified extremity 38992. Thrombocytopenia, unspecified 13092. Dysphagia, unspecified 63747. Malignant neoplasm of connective and soft tissue, unspecified 51787. ad terminal makeup operator (current) use of antibiotics 73552. Fever presenting with conditions classified elsewhere 04504. Neutropenia, unspecified 84500. 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 Obesity, unspecified 10765. Infection of amputation stump, unspecified extremity 07181. Osteomyelitis, unspecified 19409. Malignant neoplasm of connective and soft tissue, unspecified 03/23/2018 13:07 [facility] TYPE: Internal Medicine DIAGNOSES: 71559. fever neutropenia 69289. Obesity, unspecified 36637. Anemia, unspecified 50727. Acquired absence of left leg below knee 62057. Infection of amputation stump, unspecified extremity 10779. Osteomyelitis, unspecified 20349. Neutropenia, unspecified 43496. Malignant neoplasm of connective and soft tissue, unspecified 53020. Fever presenting with conditions classified elsewhere 03/12/2018 18:06 [facility] TYPE: Oncology DIAGNOSES: 43388. Malignant neoplasm of connective and soft tissue, [...] - Other specified anxiety disorders 02/19/2018 16:34 [facility] TYPE: Hematology DIAGNOSES: 75904. Malignant neoplasm of connective and soft tissue, unspecified 02/06/2018 09:56 [facility] TYPE: Orthopedic DIAGNOSES: 24830. SYNOVIAL SARCOMA LEFT FOOT 85056. Malignant neoplasm of connective and soft tissue, unspecified 94738. Localized swelling, mass and lump, left lower limb [email or web address]
[2019-01-31] MEDS ORDERED: WELLBUTRIN SR200 MG PO (00:44)
[2019-01-31] MEDS ORDERED: PERCOCET 5-3251 EACH PO (01:15)
== END 2019-01-31 01:26 | disposition home or self-care (01) ==
LOC: ED 23:28
DX: S89.92XA Unspecified injury of left lower leg, initial encounter (principal); F41.9 Anxiety disorder, unspecified; F32.9 Major depressive disorder, single episode, unspecified; Z89.512 Acquired absence of left leg below knee; Z88.5 Allergy status to narcotic agent; Z88.8 Allergy status to other drugs, medicaments and biological substances; Z79.899 Other long term (current) drug therapy; V00.141A Fall from scooter (nonmotorized), initial encounter
CPT/HCPCS: 99283

== ENCOUNTER 2019-03-04 16:14 | Emergency (ER) | payer BC, OTHER ==
[~2019-03-04] VITALS: Ht 172.7 cm; Wt 156.9 kg
[~2019-03-04 16:14] MED LIST changes: +WELLBUTRIN SR200 MG PO
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
[2019-03-04] MEDS ORDERED: ULTRAM50 MG PO (16:34)
[2019-03-04] MEDS ORDERED: CELECOXIB200 MG PO (16:35)
== END 2019-03-04 18:00 | disposition home or self-care (01) ==
LOC: ED 16:14
DX: M54.5 Low back pain (principal); E66.01 Morbid (severe) obesity due to excess calories; F32.9 Major depressive disorder, single episode, unspecified; F41.9 Anxiety disorder, unspecified; Z88.8 Allergy status to other drugs, medicaments and biological substances; Z88.5 Allergy status to narcotic agent; Z79.899 Other long term (current) drug therapy
CPT/HCPCS: 96374; 99283-25; J1170; J1885

== ENCOUNTER 2019-09-30 07:55 | Day surgery (SDC) | payer BC, OTHER ==
[~2019-09-30] VITALS: Ht 172.7 cm; Wt 157.8 kg
[~2019-09-30 07:55] MED LIST changes: +AUGMENTIN XR 11 EACH PO; +CELEBREX200 MG PO; +CELECOXIB200 MG PO; +CELEXA40 MG PO; +CLONAZEPAM0.5 MG PO; +LYRICA225 MG PO; +MULTI VITAMIN1 EACH PO; +PHENTERMINE H37.5 MG PO; +ROBAXIN-750750 MG PO; +ULTRAM50 MG PO; +VIT C PO; +VIT D PO; +WELLBUTRIN XL300 MG PO
--- NOTE | 2019-09-30 10:39 | NUR ---
09/30/19 1039 Sheets,Cathy 1034 PT ARRIVED TO PACU ON 10L VIA MASK, ORAL AIRWAY IN PLACE. RESP EVEN AND UNLABORED.
--- NOTE | 2019-10-01 07:25 | OR ---
[facility] [address] [place], [place] [address] Signed DATE OF OPERATION: 09/30/2019 SURGEON: Natalie Vaca MD PREOPERATIVE DIAGNOSES: 1. History of peptic ulcer disease and gastroesophageal reflux disease while on chemotherapy. 2. Obesity with body mass index of 53. 3. Upcoming gastric sleeve procedure. POSTOPERATIVE DIAGNOSES: 1. Small hiatal hernia (41-38 cm). 2. Mild diffuse gastroduodenitis. PROCEDURES: EGD with CLOtest and biopsies of the duodenal bulb, antrum, and GE junction. ESTIMATED BLOOD LOSS: None. INDICATIONS: Annika is a 34-year-old lady with a body mass index of 53. She underwent evaluation for gastric sleeve procedure with [facility]. 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 During that time, she had peptic ulcer disease and acid reflux. She says now it is much better. She currently takes no medications for acid reflux. She seems to feel much better in that regard. Nevertheless, [facility] wanted an upper endoscopy for evaluation with biopsies. Also, she is scheduled for upper GI barium study with x-rays. She had canceled that last earlier this week and she is scheduled for this coming week. In the office, I had met with her and we reviewed all the above findings together. I gave her a pamphlet on upper endoscopy and we looked at that together in detail. She understands the nature of the test along with the risks including, but not limited to gas bloating, crampy abdominal pain, bleeding, perforation requiring surgery, and missed diagnosis. Also because of her body mass index of 53, a very full round face and heavy neck, we did ask an anesthesia provider to help us with increased monitoring sedation with propofol. She had expressed understanding and wished to proceed. PROCEDURE NOTE: Annika was taken into our endoscopy suite and placed in the supine semi-recumbent Electronically Signed By: NATALIE VACA MD 10/01/19 0725 PATIENT NAME: ANNIKA BOWENS OPERATIVE REPORT DATE OF : 83 REPORT #: [id number] PHYSICIAN: NATALIE VACA MD PCP: GARIMA CHAMPION REPORT IS CONFIDENTIAL AND NOT TO BE RELEASED WITHOUT AUTHORIZATION [facility] [address] [place] [address] Signed position. The posterior oropharynx was anesthetized with Hurricaine spray. A bite block was utilized for the case. She was given IV sedation with propofol per our nurse yarn spinner. The adult gastroscope was introduced and advanced out into the third portion of the duodenum under direct visualization of camera without difficulty. Her duodenum was unremarkable. The pyloric channel showed just a little bit irritation, so we went ahead and took a biopsy for pathologic review. The stomach also showed udog-zf-nmqnzazr diffuse erythematous changes throughout. Consequently, we took a biopsy from the antrum for pathologic review as well as CLOtest. Upon retroflexion of scope, it looks like she has just a very tiny hiatal hernia. There were no gastric or esophageal varices. No ulcerations in the pyloric channel or the stomach. The scope had been withdrawn up through the area of GE junction, which was compliant without stricture. We measured out the hiatal hernia from 41 back to 38 cm. Her Z-line more or less is intact. There was no Ivey's mucosa and no distal esophagitis. We went ahead and took a biopsy right at the Z-line for pathologic review. After this, the gas was suctioned out and the gastroscope removed. Annika tolerated the procedure quite well. RECOMMENDATIONS: I will see Annika back in my office in a week or so after her upper GI study is completed. She may need an H2 nohemi or proton pump inhibitor with respect to the above depending on the biopsies. Natalie Vaca MD ALB/MODL /[id number] cc: MD Garima Barnett, PAUL De La Fuente, PAUL [facility] Copies: NATALIE VACA MD Electronically Signed By: NATALIE VACA MD 10/01/19 0725 PATIENT NAME: ANNIKA BOWENS OPERATIVE REPORT DATE OF : 83 REPORT #: [id number] PHYSICIAN: NATALIE VACA MD PCP: GARIMA CHAMPION-Alirio REPORT IS CONFIDENTIAL AND NOT TO BE RELEASED WITHOUT AUTHORIZATION [address] [address] Signed ~ Electronically Signed By: NATALIE VACA MD 10/01/19 0725 PATIENT NAME: ANNIKA BOWENS OPERATIVE REPORT DATE OF : 83 REPORT #: [id number] PHYSICIAN: NATALIE VACA MD PCP: GARIMA CHAMPION REPORT IS CONFIDENTIAL AND NOT TO BE RELEASED WITHOUT AUTHORIZATION
--- NOTE | 2019-10-02 14:59 | PATH ---
[facility] [address], [place] [address] Signed SPECIMEN(S): A DUODENUM BULB SPECIMEN(S): B ANTRUM/PYLORUS SPECIMEN(S): C BODY SPECIMEN(S): D GE JUNCTION SPECIMEN SOURCE: A. DUODENUM BULB B. ANTRUM/PYLORUS C. BODY D. GE JUNCTION CLINICAL HISTORY: History of occasional epigastric abdominal pain. EGD for evaluation for gastric sleeve. Findings: Gastroduodenitis, hiatal hernia. MICROSCOPIC DESCRIPTION: Histologic sections of all submitted blocks are examined by light microscopy. These findings, together with the gross examination, support the pathologic diagnosis. FINAL PATHOLOGIC DIAGNOSIS: A. Duodenal bulb, biopsy: - Duodenal mucosa with increased chronic inflammation of the lamina propria. - Negative for Helicobacter organisms on HE stain. - Negative for dysplasia or malignancy. B. Stomach, antrum/pylorus, biopsy: - Antral mucosa with focal reactive gastropathy. - Negative for Helicobacter organisms on HE stain. - Negative for dysplasia or malignancy. C. Stomach, body, biopsy: - Oxyntic mucosa with mild chronic, inactive gastritis. - Negative for Helicobacter organisms on HE stain. - Negative for dysplasia or malignancy. D. Gastroesophageal junction, biopsy: - Squamous mucosa with mild chronic inflammation and reactive changes, suggestive of reflux esophagitis. - Negative for intestinal metaplasia, dysplasia, or malignancy. NAL:emb:C2NR GROSS DESCRIPTION: Four specimens are received in four containers, labeled "KG." A. The specimen, labeled "KG, 1" and "duodenum biopsy" on the requisition, is PATIENT NAME: ANNIKA BOWENS PATHOLOGY DATE OF : 83 REPORT #: [id number] PHYSICIAN: KARIS CONNORS PCP: JUDY CHAMPION REPORT IS CONFIDENTIAL AND NOT TO BE RELEASED WITHOUT AUTHORIZATION [facility] [address], [place] [address] Signed received in formalin and consists of a 0.4 cm soft wang tissue fragment that is submitted in toto in cassette A1. B. The specimen, labeled "KG, 2", and "antrum/pylorus" on the requisition is received in formalin and consists of a 0.4 cm soft wang tissue fragment that is submitted in toto in cassette B1. C. The specimen, labeled "KG, 3" and "body" on the requisition, is received in formalin and consists of a 0.5 cm soft pink to wang tissue fragment that is submitted in toto in cassette C1. D. The specimen, labeled "KG, 4" and "GE junction" on the requisition, is received in formalin and consists of a 0.4 cm soft bowens flat tissue fragment that is submitted in toto in cassette D1. SS (under the direct supervision of a pathologist) The Gross Description was prepared using a voice recognition system. The report was reviewed for accuracy; however, sound-alike word errors, addition and/or deletions may occur. If there is any question about this report, please contact Client Services. PERFORMING LABORATORY: The technical component was performed by [facility] [address] (Reimbursement Specialist: Jannet Mann MD; CLIA# [id number]). [facility] [address] [id number] (Reimbursement Specialist: Frederic Cooper MD; CLIA# [id number]). Diagnostician: Melita Hartley MD Pathologist Electronically Signed 10/01/2019 Copies: ~ PATIENT NAME: ANNIKA BOWENS PATHOLOGY DATE OF : [birth year] REPORT #: [id number] PHYSICIAN: KARIS PATHOLOGY PCP: JUDY CHAMPION REPORT IS CONFIDENTIAL AND NOT TO BE RELEASED WITHOUT AUTHORIZATION
== END 2019-09-30 11:34 | disposition home or self-care (01) ==
LOC: DS 07:55 → OPS 07:55 → DS 09:15 → OPS 09:15
PROVIDERS: Colon & Rectal Surgery
PROC: 0DB78ZX Excision of Stomach, Pylorus, Via Natural or Artificial Opening Endoscopic, Diagnostic (ICD-10-PCS; 2019-09-30)
PROC: 0DB48ZX Excision of Esophagogastric Junction, Via Natural or Artificial Opening Endoscopic, Diagnostic (ICD-10-PCS; 2019-09-30)
PROC: 0DB68ZX Excision of Stomach, Via Natural or Artificial Opening Endoscopic, Diagnostic (ICD-10-PCS; 2019-09-30)
PROC: 0DB98ZX Excision of Duodenum, Via Natural or Artificial Opening Endoscopic, Diagnostic (ICD-10-PCS; principal; 2019-09-30 09:15)
DX: K21.0 Gastro-esophageal reflux disease with esophagitis (principal); K29.50 Unspecified chronic gastritis without bleeding; K29.80 Duodenitis without bleeding; K31.89 Other diseases of stomach and duodenum; K44.9 Diaphragmatic hernia without obstruction or gangrene; E66.01 Morbid (severe) obesity due to excess calories; F43.10 Post-traumatic stress disorder, unspecified; I10 Essential (primary) hypertension; E87.6 Hypokalemia; M54.9 Dorsalgia, unspecified; G89.29 Other chronic pain; Z87.11 Personal history of peptic ulcer disease; Z68.43 Body mass index [BMI] 50.0-59.9, adult; Z79.899 Other long term (current) drug therapy; Z88.5 Allergy status to narcotic agent; Z88.8 Allergy status to other drugs, medicaments and biological substances
CPT/HCPCS: 80053; 86677; J2704; J7121

== ENCOUNTER 2021-04-24 11:10 | Emergency (ER) | payer BC, OTHER ==
[~2021-04-24] VITALS: Ht 172.7 cm; Wt 127.0 kg
--- OUTSIDE RECORDS SUMMARY | 2021-04-24 11:14 | XMS ---
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 Care History Medical/Surgical 12/22/2018 [facility] \T\middot;\T\nbsp; PATIENT IS A [employer] MEMBER. \T\middot;\T\nbsp; PLEASE REFER PATIENT TO [facility] FOR NON EMERGENT MEDICAL NEEDS. \T\middot;\ T\nbsp; [facility] CAN SEE PATIENTS SAME DAY FOR APTS IF PATIENT CALLS FIRST THING IN THE MORNING. 04/17/2018 [facility] - PATIENT IS CURRENTLY ON CHEMO THERAPY. - PATIENT PCP IS AT [facility] ( DR FARHAN MOONEY) E.Tiny VISIT COUNT (12 MO.) 1 LAITH Vallecillo TOTAL 1 NOTE: Visits indicate total known visits. ED/UCC VISIT TRACKING (12 MO.) 04/24/2021 11:10 [facility] [place] TYPE: Emergency COMPLAINT: - POSS ABCESS ON L LEG INPATIENT VISIT TRACKING (12 MO.) 10/05/2020 11:51 [facility] TYPE: Weight Management DIAGNOSES: 53771. Morbid (severe) obesity due to excess calories 57477. MORBID OBESITY 41780. Morbid (severe) obesity due to excess calories [email or web address]
[2021-04-24] MEDS ORDERED: ULTRAM50 MG PO (11:36)
[2021-04-24] MEDS ORDERED: BACTRIM DS TAB1 EACH PO (12:33)
[2021-04-24] MEDS ORDERED: CEPHALEXIN500 MG PO (12:33)
== END 2021-04-24 12:58 | disposition home or self-care (01) ==
LOC: ED 11:10
PROC: 0H9LXZZ Drainage of Left Lower Leg Skin, External Approach (ICD-10-PCS; principal; 2021-04-24)
DX: L03.116 Cellulitis of left lower limb (principal); Z89.512 Acquired absence of left leg below knee; Z88.2 Allergy status to sulfonamides; Z88.8 Allergy status to other drugs, medicaments and biological substances; Z79.899 Other long term (current) drug therapy; E66.01 Morbid (severe) obesity due to excess calories; Z88.5 Allergy status to narcotic agent
CPT/HCPCS: 10060; 99283-25

== ENCOUNTER 2021-04-27 21:13 | Emergency (ER) | payer BC, OTHER ==
[~2021-04-27] VITALS: Ht 172.7 cm; Wt 127.0 kg
[~2021-04-27 21:13] MED LIST changes: +BACTRIM DS TAB1 EACH PO; +CEPHALEXIN500 MG PO
--- OUTSIDE RECORDS SUMMARY | 2021-04-27 21:16 | XMS ---
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 Care History Medical/Surgical 12/22/2018 [facility] - PATIENT IS MARNIVINHSrikanth LULÚ, \T\middot;\T\nbsp; PLEASE REFER PATIENT TO [facility] FOR NON EMERGENT MEDICAL NEEDS. \T\middot;\T\nbsp; [facility] CAN SEE PATIENTS SAME DAY FOR APTS IF PATIENT CALLS FIRST THING IN THE MORNING. 04/17/2018 [facility] - PATIENT IS CURRENTLY ON CHEMO THERAPY. - PATIENT PCP IS AT [facility] ( DR FARHAN MOONEY) Sepideh VISIT COUNT (12 MO.) 2 [facility]3][place]. TOTAL 2 NOTE: Visits indicate total known visits. 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 Morbid (severe) obesity due to excess calories 59402. MORBID OBESITY 66944. Morbid (severe) obesity due to excess calories [email or web address]
[2021-04-27] MEDS ORDERED: MELATONIN3 M3 PO (21:31)
== END 2021-04-27 22:54 | disposition home or self-care (01) ==
LOC: ED 21:13
DX: L03.116 Cellulitis of left lower limb (principal); Z89.512 Acquired absence of left leg below knee; E66.01 Morbid (severe) obesity due to excess calories; Z88.8 Allergy status to other drugs, medicaments and biological substances; Z88.5 Allergy status to narcotic agent; Z79.899 Other long term (current) drug therapy
CPT/HCPCS: 76882; 99283-25

== ENCOUNTER 2021-05-24 12:07 | Emergency (ER) | payer BC, OTHER ==
[~2021-05-24] VITALS: Ht 172.7 cm; Wt 125.6 kg
[~2021-05-24 12:07] MED LIST changes: +MELATONIN3 M3 PO
--- OUTSIDE RECORDS SUMMARY | 2021-05-24 12:10 | XMS ---
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 PHONE: [phone] Birgit has no Care Guidelines for this patient. Care History Medical/Surgical 12/22/2018 [facility] - PATIENT IS MARNIMARIN CHINO, \T\middot;\T\nbsp; PLEASE REFER PATIENT TO [facility] FOR NON EMERGENT MEDICAL NEEDS. \T\middot;\T\nbsp; [facility] CAN SEE PATIENTS SAME DAY FOR APTS IF PATIENT CALLS FIRST THING IN THE MORNING. 04/17/2018 [facility] - PATIENT IS CURRENTLY ON CHEMO THERAPY. - PATIENT PCP IS AT [facility] ( DR FARHAN MOONEY) Sepideh [facility]ISIT COUNT (12 MO.) [facility] NOTE: Visits indicate total known visits. 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 Morbid (severe) obesity due to excess calories 87715. MORBID OBESITY 60176. Morbid (severe) obesity due to excess calories [email or web address]
== END 2021-05-24 16:44 | disposition home or self-care (01) ==
LOC: ED 12:07
DX: U07.1 COVID-19 (principal); E66.01 Morbid (severe) obesity due to excess calories; Z85.831 Personal history of malignant neoplasm of soft tissue; Z88.5 Allergy status to narcotic agent; Z88.8 Allergy status to other drugs, medicaments and biological substances; Z88.2 Allergy status to sulfonamides; Z79.899 Other long term (current) drug therapy
CPT/HCPCS: 71045; 99283-25

== ENCOUNTER 2022-02-02 17:32 | Emergency (ER) | payer BC, OTHER ==
[~2022-02-02] VITALS: Ht 172.7 cm; Wt 124.0 kg
--- OUTSIDE RECORDS SUMMARY | 2022-02-02 17:34 | XMS ---
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 PHONE: [phone] Birgit has no Care Guidelines for this patient. Care History Medical/Surgical 12/22/2018 [facility] [place] [facility] - PATIENT IS MARNISOLOMON [facility] CHINO, \T\middot;\T\nbsp; PLEASE REFER PATIENT TO [facility] FOR NON EMERGENT MEDICAL NEEDS. \T\middot;\T\nbsp; [facility] CAN SEE PATIENTS SAME DAY FOR APTS IF PATIENT CALLS FIRST THING IN THE MORNING. 04/17/2018 [facility] [place] [facility] - PATIENT IS CURRENTLY ON CHEMO THERAPY. - PATIENT PCP IS AT [facility] ( DR FARHAN MOONEY) Sepideh VISIT COUNT (12 MO.) 4 [facility] T[facility] NOTE: Visits indicate total known visits. ED/UCC VISIT TRACKING (12 MO.) 02/02/2022 17:[facility] [place] TYPE: Emergency COMPLAINT: - LT LEG PAIN 05/24/2021 12:08 [facility] [place] TYPE: Emergency COMPLAINT: - COUGH DIAGNOSES: - Personal history of malignant neoplasm of soft tissue - Morbid (severe) obesity due to excess calories - COVID-19 - Allergy status to sulfonamides - [place] [facility] drug therapy - Allergy status to narcotic agent - Allergy status to other drugs, medicaments and biological substances 04/27/2021 21:14 [facility] [place] TYPE: Emergency COMPLAINT: - LT LEG PAIN DIAGNOSES: - Other specified soft tissue disorders - Cellulitis of left lower limb - Allergy status to narcotic agent - Allergy status to other drugs, medicaments and biological substances - 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
[2022-02-02] MEDS ORDERED: CENTANY30 GM TOP (19:00)
== END 2022-02-02 19:21 | disposition home or self-care (01) ==
LOC: ED 17:32
DX: G54.6 Phantom limb syndrome with pain (principal); E66.01 Morbid (severe) obesity due to excess calories; Z88.5 Allergy status to narcotic agent; Z88.8 Allergy status to other drugs, medicaments and biological substances; Z79.899 Other long term (current) drug therapy; Z89.512 Acquired absence of left leg below knee; Z68.41 Body mass index [BMI] 40.0-44.9, adult
CPT/HCPCS: 99283

== ENCOUNTER 2022-04-01 12:17 | Emergency (ER) | payer BC, OTHER ==
[~2022-04-01] VITALS: Ht 172.7 cm; Wt 121.6 kg
[~2022-04-01 12:17] MED LIST changes: +CENTANY30 GM TOP
--- OUTSIDE RECORDS SUMMARY | 2022-04-01 12:19 | XMS ---
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/[place] 04/25/2021-[facility] PHONE: [phone] Birgit has no Care Guidelines for this patient. Care History Medical/Surgical 12/22/2018 [facility] - PATIENT IS [facility] CHINO, \T\middot;\T\nbsp; PLEASE REFER PATIENT TO [facility] FOR NON EMERGENT MEDICAL NEEDS. \T\middot;\T\nbsp; [facility] CAN SEE PATIENTS SAME DAY FOR APTS IF PATIENT CALLS FIRST THING IN THE MORNING. 04/17/2018 [facility] - PATIENT IS CURRENTLY ON CHEMO THERAPY. - PATIENT PCP IS AT [facility] ( DR FARHAN MOONEY) Sepideh VISIT COUNT (12 MO.) [facility] T[facility] NOTE: Visits indicate total known visits. 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 - Allergy status to other drugs, medicaments and biological substances - Acquired absence of left leg below knee - Phantom limb syndrome with pain - Morbid (severe) obesity due to excess calories 05/24/2021 12:08 [facility] [place] TYPE: Emergency COMPLAINT: - COUGH DIAGNOSES: - Personal history of malignant neoplasm of soft tissue - Morbid (severe) obesity due to excess calories - COVID-19 - Allergy status to sulfonamides - 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 - Allergy status to narcotic agent - Allergy status to other drugs, medicaments and biological substances 04/27/2021 21:14 [facility] [place] TYPE: Emergency COMPLAINT: - LT LEG PAIN DIAGNOSES: - Other specified soft tissue disorders - Cellulitis of left lower limb - Allergy status to narcotic agent - Allergy status to other drugs, medicaments and biological substances - Other jail (current) drug therapy - Acquired absence of [...] Allergy status to narcotic agent - Other jail (current) drug therapy INPATIENT VISIT TRACKING (12 MO.) No inpatient visits to display in this time frame [email or web address]
[2022-04-01] MEDS ORDERED: AMOX TR-K CLV1 EAC1 PO (16:30)
== END 2022-04-01 16:47 | disposition home or self-care (01) ==
LOC: ED 12:17
DX: S61.031A Puncture wound without foreign body of right thumb without damage to nail, initial encounter (principal); E66.01 Morbid (severe) obesity due to excess calories; W55.01XA Bitten by cat, initial encounter; Z88.8 Allergy status to other drugs, medicaments and biological substances; Z88.5 Allergy status to narcotic agent; Z79.899 Other long term (current) drug therapy
CPT/HCPCS: 90715

== ENCOUNTER 2022-10-31 13:42 | Emergency (ER) | payer BC, OTHER ==
[~2022-10-31] VITALS: Ht 172.7 cm; Wt 121.6 kg
[~2022-10-31 13:42] MED LIST changes: +AMOX TR-K CLV1 EAC1 PO
--- OUTSIDE RECORDS SUMMARY | 2022-10-31 13:44 | XMS ---
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 Care History Medical/Surgical 12/22/2018 [facility] - PATIENT IS MARNIPEMBROKE HOSPITALSrikanth [place]INO, \T\middot;\T\nbsp; PLEASE REFER PATIENT TO [facility] FOR NON EMERGENT MEDICAL NEEDS. \T\middot;\T\nbsp; [facility] CAN SEE PATIENTS SAME DAY FOR APTS IF PATIENT CALLS FIRST THING IN THE MORNING. 04/17/2018 [facility] - PATIENT IS CURRENTLY ON CHEMO THERAPY. - PATIENT PCP IS AT [facility] ( DR FARHAN MOONEY) Sepideh VISIT COUNT (12 MO.) 3 [facility] TOTAL [facility] NOTE: Visits indicate total known visits. ED/UCC VISIT TRACKING (12 MO.) 10/31/2022 13[facility] [place] [facility] COMPLAINT: - SHORTNESS OF BREATH 04/01/2022 12:17 [facility] [place] TYPE: Emergency COMPLAINT: - ANIMAL BITE DIAGNOSES: - Bitten by cat, initial encounter - Allergy status to narcotic agent - Allergy status to other drugs, medicaments and biological substances - Puncture wound without foreign body of right thumb without damage to nail, initial encounter - Morbid (severe) obesity due to excess calories - Other nursing home (current) drug therapy 02/02/2022 17:33 [facility] [place] TYPE: Emergency COMPLAINT: - LT LEG PAIN/NO INJURY DIAGNOSES: - Morbid (severe) obesity due to excess calories - Acquired absence of left leg below knee - Other nursing home (current) drug therapy - Body mass index [BMI] 40.0-44.9, adult - Phantom limb syndrome with pain - Allergy status to other drugs, medicaments and biological substances - Allergy status to narcotic agent INPATIENT VISIT TRACKING (12 MO.) 06/14/2022 07:41 [facility] TYPE: Thoracic Surgery DIAGNOSES: 53611. Solitary pulmonary nodule 40640. Solitary pulmonary nodule [email or web address]
--- NOTE | 2022-10-31 16:46 | EKG ---
[facility] [address] [place] [address] Signed Normal sinus rhythm Normal ECG When compared with ECG of 02-MAR-2018 19:57, No significant change was found Confirmed by CHATO CHARLES MD ([id number]) on 10/31/2022 4:46:12 PM Electronically Signed By: CHATO CHARLES MD 10/31/22 1646 PATIENT NAME: ANNIKA BOWENS Electrocardiogram DATE OF : 83 PHYSICIAN: CHATO CHARLES MD REPORT #: [id number] REPORT IS CONFIDENTIAL AND NOT TO BE RELEASED WITHOUT AUTHORIZATION
== END 2022-10-31 15:48 | disposition home or self-care (01) ==
LOC: ED 13:42
DX: R07.81 Pleurodynia (principal); Z20.822 Contact with and (suspected) exposure to COVID-19; E66.01 Morbid (severe) obesity due to excess calories; Z88.8 Allergy status to other drugs, medicaments and biological substances; Z88.5 Allergy status to narcotic agent; Z79.899 Other long term (current) drug therapy
CPT/HCPCS: 36415; 71045; 80053; 83735; 83880; 84484; 85025; 85379; 87502; 93005; 93010; 96374; 99285-25; C9803; J3010; U0003

== ENCOUNTER 2024-12-08 12:57 | Emergency (ER) | payer BC, OTHER ==
[~2024-12-08] VITALS: Ht 172.7 cm; Wt 152.1 kg
[~2024-12-08 12:57] MED LIST changes: +HYDROCODON-ACE1 EA11 PO; +ONDANSETRON ODT8 MG PO; +PROMETHAZINE HC25 M1 PO
[2024-12-08 13:33] LABS: BILIRUBIN, URINE NEGATIVE (negative); BLOOD/HGB, URINE NEGATIVE (Negative); KETONE, URINE NEGATIVE (Negative); LEUK ESTERASE, URINE NEGATIVE (negative); NITRITE, URINE POSITIVE (negative)
[2024-12-08 13:47] LABS: BACTERIA, URINE 3+ /hpf (negative); CASTS, URINE NONE SEEN \\lpf; COLLECTION TYPE, URINE CLEAN CATCH; CRYSTALS, URINE CALCIUM OXALATE 1+ (0-1+); EPITHELIAL CELLS, URINE SQUAMOUS 1+ /lpf (0-1+); RED BLOOD CELLS, URINE 0-1 /hpf (0-5); REFLEX CULTURE, URINE Yes (No)
[2024-12-08] MEDS ORDERED: AMOX TR-K CLV1 EAC1 PO (16:56)
[2024-12-08] MEDS ORDERED: ZITHROMAX250 MG PO (16:56)
[2024-12-08] MEDS ORDERED: AZITHROMYCIN 250 MG TAB PO ONE (17:00)
[2024-12-08] MEDS ORDERED: AMOXICILLIN/CLAVULANATE K 875 MG TAB PO ONE (17:00)
[2024-12-08 17:08] VITALS: BP 127/74
== END 2024-12-08 17:20 | disposition home or self-care (01) ==
LOC: ED 12:57
PROVIDERS: Emergency Medicine
DX: N39.0 Urinary tract infection, site not specified (principal); J18.9 Pneumonia, unspecified organism; E66.01 Morbid (severe) obesity due to excess calories; Z68.43 Body mass index [BMI] 50.0-59.9, adult; Z98.84 Bariatric surgery status; Z89.512 Acquired absence of left leg below knee; Z88.8 Allergy status to other drugs, medicaments and biological substances; Z88.5 Allergy status to narcotic agent; Z79.1 Long term (current) use of non-steroidal anti-inflammatories (NSAID); Z79.899 Other long term (current) drug therapy
CPT/HCPCS: 71045; 81001; 87077; 87088; 87186; 99284-25